=== PATIENT | female | born 1940 | race Caucasian/White ===

== ENCOUNTER 2019-10-21 05:39 | Outpatient (RCR) | payer MEDICARE, MEDICAID, SELFPAY | END 2019-10-29 00:01 | LOC: ONCMED 05:39 | PROVIDERS: Family Provider Family Medicine; Visit Provider Internal Medicine Hematology & Oncology | DX: D50.9 Iron deficiency anemia, unspecified (principal); I48.91 Unspecified atrial fibrillation; K64.8 Other hemorrhoids; K22.2 Esophageal obstruction; K44.9 Diaphragmatic hernia without obstruction or gangrene; Z79.01 Long term (current) use of anticoagulants ==

== ENCOUNTER 2019-12-02 16:38 | Outpatient (CLI) | payer MEDICARE, MEDICAID, SELFPAY ==
--- NOTE | 2019-12-02 16:50 | XR_ITS ---
WS: [id number] ABDOMEN SERIES ACUTE Supine and upright views of the abdomen with AP or PA chest CLINICAL INFORMATION: RUQ PAIN COMPARISON: None. FINDINGS: Heart: Cardiomegaly. AVR. Sternotomy. Aortic calcification. Lungs: Chronic emphysematous changes. No acute pulmonary infiltrates. Bowel gas pattern: Pancolonic fecal retention. Otherwise normal bowel gas pattern. Free air: None. Bones: Thoracolumbar scoliosis. Osteopenia. Cholecystectomy clips. XR/XR acute abdomen series 93904 IMPRESSION: 1. Moderate pancolonic constipation. Otherwise unremarkable bowel gas pattern. 2. Cholecystectomy clips. 3. Cardiomegaly with sternotomy and aVR. Lungs well aerated.
== END 2019-12-02 16:39 | disposition home or self-care (01) ==
LOC: RAD 16:43
PROVIDERS: Family Provider Family Medicine; PCP Family Medicine; Visit Provider Nurse Practitioner Family
DX: R10.11 Right upper quadrant pain (principal); K59.00 Constipation, unspecified; I51.7 Cardiomegaly
CPT/HCPCS: 74022

== ENCOUNTER 2019-12-11 16:42 | Inpatient (IN) | payer MEDICARE, MEDICAID, SELFPAY ==
[2019-12-11] VITALS (29 sets, daily range): BP systolic 116–153; BP diastolic 41–76; PULSE 64–75; RESP 18–38; TEMP 36.7–36.9; O2SAT 81–100; BMI 28.9
--- NOTE | 2019-12-11 17:12 | ED_ITS ---
Entered by Adrianna Chávez, acting as scribe for Cindy Hammond MD Dec 11, 2019 16:42 HPI - General Adult General: Chief complaint: General Medical Stated complaint: difficulty breathing Time Seen by Provider: 12/11/19 17:08 Source: patient Mode of arrival: ambulatory Limitations: no limitations History of Present Illness: HPI narrative: 79 yo Female presents to ED with complaint of fever, abdominal pain, and shortness of breath. Pt states that she has had the abdominal pain for about 2 weeks. Pt states that it has come and gone some but it doesn't go away very often. Pt states that movement makes her abdomen hurt worse. Pt states that she has been constipated and finally got her bowels softened up and now it feels more like diarrhea. Pt's family states that the patient has chronic constipation. Pt states that her fever is new today. Pt states that she has had multiple bowel movements over the past few days but her abdominal pain isn't getting any better. Pt states that she uses oxygen at night. Pt states that she has a stainless steel mechanical heart valve as well. MD complaint: Fever/Abdominal Pain Onset (ago): week(s) Location: abdomen Radiation: non-radiation Severity scale (1-10): 8 Pain Consistency: intermittent Relieving factors: none Exacerbating factors: movement Associated symptoms: Reports cough, dyspnea, fevers/chills and short of breath; Deny chest pain, diaphoresis, headache(s), nausea, rash or vomiting Treatments prior to arrival: none Review of Systems Const: Reports: fever; Denies: chills, change in appetite, night sweats or diaphoresis Eyes: Denies: change in vision ENMT: Denies: throat pain or ear pain Card: Denies: chest pain, swelling of feet/ankles, shortness of breath on exertion or shortness of breath when lying down Resp: Reports: shortness of breath and non-productive cough; Denies: productive cough GI: Reports: abdominal pain; Denies: nausea, vomiting, diarrhea or constipation : Denies: flank pain or difficulty urinating Musc: Denies: back pain Skin/Breast: Denies: rash Neuro: Denies: headache, numbness in extremities or weakness in extremities Psych: Denies: depression Endo: Denies: excessive thirst Jesus Alberto/Lymph: Denies: easy bruising PFSH ED PFSH: Statuses (acute, chronic, etc) shown below reflect problem list status as previously entered and may not be historically accurate Medical History (Updated 12/11/19 @ 21:21 by Karis Madsen MD) Afib COPD (chronic obstructive pulmonary disease) Diastolic CHF HTN (hypertension) Hypothyroidism Iron deficiency anemia Parkinson disease Schatzki's ring Surgical History (Updated 12/11/19 @ 21:21 by Karis Madsen MD) History of bilateral tubal ligation History of cholecystectomy History of total knee arthroplasty Left Mitral valve replaced Mechanical, on coumadin Family History Mother CAD (coronary artery disease) Diabetes Other Hypertension Social History Smoking and tobacco status: former smoker Physical Exam Const: COMMON NORMALS: no apparent distress, oriented x3 and alert GENERAL APPEARANCE: cooperative and well developed; not in distress and not diaphoretic ORIENTATION/CONSCIOUSNESS: Yes awake, Yes oriented to person, Yes oriented to place and Yes oriented to time HENMT: COMMON NORMALS: normocephalic, head/scalp atraumatic, external ears normal, external nose normal and moist oral mucous membranes HEAD & SCALP: normocephalic and atraumatic FACE & SINUS: normal facial exam; no facial tenderness NOSE: external nose normal EXTERNAL EAR: Yes external ears normal MOUTH: oral and palatal mucosa normal, lip normal and tongue normal TEETH & GINGIVA: no abnormal tooth and associated gingiva THROAT: posterior oropharynx normal and uvula midline Eye: COMMON NORMALS: PERRL and EOMs intact bilaterally PUPIL: Yes PERRL Neck/C-Spine: COMMON NORMALS: full ROM, supple and no JVD GENERAL: Yes normal visual inspection and Yes trachea midline CERVICAL SPINE: No cervical spine tenderness Lymph: LYMPHATIC: no lymphadenopathy noted Chest: COMMONS NORMALS: inspection of chest normal Resp: COMMON NORMALS: normal respiratory effort, no use of accessory muscles and clear to auscultation bilaterally EFFORT & INSPECTION: Yes able to speak in complete sentences and Yes symmetric chest movement AUSCULTATION: clear to auscultation bilaterally Cardio: COMMON NORMALS: no JVD, regular rate, regular rhythm, no gallops, no m urmurs and peripheral pulses 2+ throughout RATE: regular rate RHYTHM: regular rhythm PERIPHERAL PULSES: pulses 2+ throughout GI: COMMON NORMALS: normal to inspection, nondistended, normoactive bowel sounds and soft to palpation; negative for non-tender PALPATION: Yes soft and Yes tender (diffuse tenderness, worse in the right upper quadrant-hx of cholecystectomy) Details: RUQ Back/Pelvis: COMMON NORMALS: thoracic and lumbar spine normal to inspection and thoraco-lumbar ROM normal Extremity: COMMON NORMALS: normal to inspection, full ROM and normal capillary refill Neuro: COMMON NORMALS: oriented x3, CN's II-XII intact bilaterally, moves all extremities, no focal motor deficits and no sensory deficits noted SENSORIUM/ORIENTATION: Yes alert, Yes oriented to person, Yes oriented to place and Yes oriented to time Psych: COMMON NORMALS: mental status grossly normal, thought process normal, cooperative, affect normal, speech normal and activity/motor behavior normal SPEECH: Yes normal speech THOUGHT PROCESS: normal thought process Skin: COMMON NORMALS: no rashes or lesions noted and skin turgor normal GENERAL SKIN EXAM: no rashes or lesions noted and turgor normal Course ED course: Patient with abdominal pain for 2 weeks - not relieved by treatment for constipation. She had some episodes of hypoxia in the ED and required increasing oxygen supplementation. CT abd neg, UA neg. Unclear cause of her abdominal pain - or her hypoxia. Admit to the hospitalist for further evaluation. Vital Signs: Vital signs: Vital Signs Temperature 98.4 F 12/11/19 16:54 Pulse Rate 66 12/11/19 21:21 Respiratory Rate 26 H 12/11/19 21:21 Blood Pressure 129/64 12/11/19 21:21 Pulse Oximetry 96 12/11/19 21:21 [facility] - General Adult Lab Data: Labs: Lab Results 12/11/19 12/11/19 12/11/19 Range/Units 17:20 17:20 17:20 WBC 5.4 (4.0-10.0) 10^3/ uL RBC 4.26 (4.1-5.3) 10^6/u L Hgb 12.4 (11.5-15.3) g/dL Hct 40.4 (37.0-47.0) % MCV 94.8 (81-99) fL MCH 29.1 (28.0-34.0) pg MCHC 30.7 (30.0-36.0) g/dL RDW 14.6 (12.1-15.1) % Plt Count 155 (130-400) 10^3/c mm MPV 10.1 (7.4-10.4) fL Neut % (Auto) 70.8 % Lymph % (Auto) 18.6 % Licking % (Auto) 8.5 % Eos % (Auto) 1.3 % Baso % (Auto) 0.6 % Neut # (Auto) 3.8 (1.8-7.7) 10^3/u L Lymph # (Auto) 1.0 (0.8-4.8) 10^3/u L Licking # (Auto) 0.5 (0.2-0.9) 10^3/u L Eos # (Auto) 0.1 (0.0-0.8) 10^3/u L Baso # (Auto) 0.0 (0.0-0.1) 10^3/u L Nucleated RBC % (a uto) 0 % Nucleated RBCs # 0.0 /100WBC PT 16.90 H (10.5-13.3) SECO NDS INR 1.33 H (0.8-1.2) Specimen Type Sample Site ABG pH (7.35-7.45) ABG pCO2 (35-45) mmHg ABG pO2 (80.0-100.0) mmH g ABG HCO3 (22-26) mmol/L ABG O2 Saturation ABG Base Excess (-2.0-2.0) mmol/ L César Test A-a O2 Gradient (5-10) mmHg Hematocrit (37-47) % Hgb O2 Saturation (95-100) % Carboxyhemoglobin (0.4-20.1) %THgb Methemoglobin (0.4-1.5) % Total Hemoglobin (12-16) g/dL Ionized Calcium (1.1-1.4) mmol/L O2 Delivery Device Chief Yeoman ID Sodium 145 (136-145) mmol/L Potassium 3.4 L (3.5-5.1) mmol/L Chloride 102 (98-107) mmol/L Carbon Dioxide 34 H (22-29) mmol/L Anion Gap 12.4 (5-19) BUN 12 (8-23) mg/dL Creatinine 0.8 (0.5-0.9) mg/dL Glucose 107 (65-115) mg/dL Lactate (0.5-2.2) mmol/L Calcium 9.2 (8.5-10.5) mg/dL Total Bilirubin 0.9 (0.15-1.2) mg/dL AST 16 (0-32) U/L ALT 9 (0-33) U/L Alkaline Phosphata se 207 H (35-105) IU/L NT-Pro-B Natriuret Pep 945 H (0-450) pg/mL Total Protein 7.5 (6.6-8.7) g/dL Albumin 4.2 (3.5-5.2) g/dL Globulin 3.3 (1.3-4.6) g/dL Lipase 25 (13-60) U/L Urine Color (Yellow) Urine Appearance (CLEAR) Urine pH (5-7) Ur Specific Gravit y (1.005-1.030) Urine Protein (Negative) Urine Glucose (UA) (Normal) Urine Ketones (Negative) Urine Occult Blood (Negative) Urine Nitrate (Negative) Urine Bilirubin (NEGATIVE) Urine Urobilinogen (Negative) mg/dL Ur Leukocyte Carlyn ase (Negative) Urine RBC (0-2) /hpf Urine WBC (0-5) /hpf Ur Squamous Epith Cells (0-5) Amorphous Sediment Urine Bacteria (NONE) Urine Mucus 12/11/19 12/11/19 12/11/19 Range/Units 17:45 17:54 20:33 WBC (4.0-10.0) 10^3/ uL RBC (4.1-5.3) 10^6/u L Hgb (11.5-15.3) g/dL Hct (37.0-47.0) % MCV (81-99) fL MCH (28.0-34.0) pg MCHC (30.0-36.0) g/dL RDW (12.1-15.1) % Plt Count (130-400) 10^3/c mm MPV (7.4-10.4) fL Neut % (Auto) % Lymph % (Auto) % Licking % (Auto) % Eos % (Auto) % Baso % (Auto) % Neut # (Auto) (1.8-7.7) 10^3/u L Lymph # (Auto) (0.8-4.8) 10^3/u L Licking # (Auto) (0.2-0.9) 10^3/u L Eos # (Auto) (0.0-0.8) 10^3/u L Baso # (Auto) (0.0-0.1) 10^3/u L Nucleated RBC % (a uto) % Nucleated RBCs # /100WBC PT (10.5-13.3) SECO NDS INR (0.8-1.2) Specimen Type Arterial Sample Site Radial, right ABG pH 7.34 L (7.35-7.45) ABG pCO2 65.2 H* (35-45) mmHg ABG pO2 42.4 L (80.0-100.0) mmH g ABG HCO3 35.1 H (22-26) mmol/L ABG O2 Saturation 73.9 ABG Base Excess 6.8 H (-2.0-2.0) mmol/ L César Test Pos A-a O2 Gradient 27.3 H (5-10) mmHg Hematocrit 44.5 (37-47) % Hgb O2 Saturation 72.1 L (95-100) % Carboxyhemoglobin 1.7 (0.4-20.1) %THgb Methemoglobin 0.7 (0.4-1.5) % Total Hemoglobin 14.5 (12-16) g/dL Ionized Calcium 1.2 (1.1-1.4) mmol/L O2 Delivery Device Room air Chief Yeoman ID vossa Sodium 146.0 H (136-145) mmol/L Potassium 3.4 L (3.5-5.1) mmol/L Chloride (98-107) mmol/L Carbon Dioxide (22-29) mmol/L Anion Gap (5-19) BUN (8-23) mg/dL Creatinine (0.5-0.9) mg/dL Glucose 101.0 (65-115) mg/dL Lactate 0.7 (0.5-2.2) mmol/L Calcium (8.5-10.5) mg/dL Total Bilirubin (0.15-1.2) mg/dL AST (0-32) U/L ALT (0-33) U/L Alkaline Phosphata se (35-105) IU/L NT-Pro-B Natriuret Pep (0-450) pg/mL Total Protein (6.6-8.7) g/dL Albumin (3.5-5.2) g/dL Globulin (1.3-4.6) g/dL Lipase (13-60) U/L Urine Color Straw (Yellow) Urine Appearance Clear (CLEAR) Urine pH 7 (5-7) Ur Specific Gravit y 1.010 (1.005-1.030) Urine Protein Neg (Negative) Urine Glucose (UA) Norm (Normal) Urine Ketones Negative (Negative) Urine Occult Blood 2+ H (Negative) Urine Nitrate Negative (Negative) Urine Bilirubin Neg (NEGATIVE) Urine Urobilinogen Norm (Negative) mg/dL Ur Leukocyte Carlyn ase Negative (Negative) Urine RBC Rare (0-2) /hpf Urine WBC None (0-5) /hpf Ur Squamous Epith Cells None (0-5) Amorphous Sediment Trace Urine Bacteria Trace (NONE) Urine Mucus Trace Imaging Data^: CT Abd/Pel: Radiologist's impression: [place] [address] CT Scan Report Signed Patient: Iris Garcia #: [id number] : 1940Acct#:[id number] Age/Sex: 79 / FADM Date: 12/11/19 Loc: ERRoom/Bed: Attending Dr: Ordering Provider/Ordering MD: Cindy Hammond MD Date of Service: 12/11/19 Procedure(s): CT abdomen pelvis w con* [id number] Accession Number(s): [id number] Report Number: [id number] PROCEDURE INFORMATION: Exam: CT Abdomen And Pelvis With Contrast Exam date and time: 12/11/2019 6:01 PM Age: 79 years old Clinical indication: Abdominal pain; Generalized; Prior surgery; Surgery date: 6+ months; Surgery type: Tubal; Additional info: Abdominal pain, fever TECHNIQUE: Imaging protocol: Computed tomography of the abdomen and pelvis with intravenous contrast. Total DLP: 617.29 mGy-cm Radiation optimization: All CT scans at this facility use at least one of these dose optimization techniques: automated exposure control; mA and/or kV adjustment per patient size (includes targeted exams where dose is matched to clinical indication); or iterative reconstruction. Contrast material: OMNI; Contrast volume: 95 ml; Contrast route: IV; COMPARISON: CT Abdomen/Pelvis Renal [id number] 04/08/2019 1:22 PM FINDINGS: Heart: Partially imaged prosthetic mitral valve. Mild bibasilar atelectasis/scarring with no focal consolidation. Liver: Normal. No mass. Gallbladder and bile ducts: Extrahepatic duct mildly dilated similar to prior, likely due to reservoir effect in the setting of cholecystectomy. Pancreas: Normal. No ductal dilation. Spleen: Normal. No splenomegaly. Adrenals: Normal. No mass. Kidneys and ureters: Lobular right renal contour with scarring and a few subcentimeter hypodensities which are too small to characterize. No hydronephrosis or visualized stones. No enhancing renal masses. Stomach and bowel: Right inguinal hernia containing a loop of small bowel without evidence of obstruction or incarceration. This was also present previously. Extensive sigmoid diverticulosis without evidence for active diverticulitis. Appendix: No evidence of appendicitis. Intraperitoneal space: No free air. No significant fluid collection. Vasculature: Scattered atherosclerotic calcification. No aortic aneurysm. Lymph nodes: Unremarkable. No enlarged lymph nodes. Bladder: Unremarkable as visualized. Reproductive: Unremarkable as visualized. Bones/joints: Generalized osteopenia. Lumbar degenerative changes. No acute or aggressive osseous lesions. Soft tissues: Unremarkable. CT/CT abdomen pelvis w con* [id number] IMPRESSION: 1. No acute findings. 2. Right inguinal hernia again containing a loop of small bowel without evidence of obstruction or incarceration. 3. Sigmoid diverticulosis without active diverticulitis. 4. Other chronic and incidental findings as described. COMMENT: Consistent with the [employer]'s Incidental Findings Committee white paper (J Am Malinda Radiol 2018): Any incidental cystic renal lesion classified in this report as too small to characterize or simple appearing is likely a benign cyst. No follow-up imaging is recommended for these lesions per consensus recommendations based on imaging criteria. Radiation Dose CTDIVOL = (mGy): DLP = 617.29 (mGy-cm) Dictated By:Cristiano Hawkins MD Signed By:Cristiano Hawkins MDSigned Date/Time:12/11/191909 DD/ 09 Discharge Plan Discharge Patient Disposition: Admitted As Inpatient Admit Provider: Karis Madsen Discharge Date/Time: 12/11/19 21:35 Coding Level of Care Code ED Lease Administrator for Chg Fwd Exam Problem Focused The documentation recorded by the Kyler warner Carmen, accurately reflects the service I personally performed and the decisions made by me, Cindy Hammond MD Dec 11, 2019 16:42
--- NOTE | 2019-12-11 17:22 | CTR_ITS ---
PROCEDURE INFORMATION: Exam: CT Abdomen And Pelvis With Contrast Exam date and time: 12/11/2019 6:01 PM Age: 79 years old Clinical indication: Abdominal pain; Generalized; Prior surgery; Surgery date: 6+ months; Surgery type: Tubal; Additional info: Abdominal pain, fever TECHNIQUE: Imaging protocol: Computed tomography of the abdomen and pelvis with intravenous contrast. Total DLP: 617.29 mGy-cm Radiation optimization: All CT scans at this facility use at least one of these dose optimization techniques: automated exposure control; mA and/or kV adjustment per patient size (includes targeted exams where dose is matched to clinical indication); or iterative reconstruction. Contrast material: OMNI; Contrast volume: 95 ml; Contrast route: IV; COMPARISON: CT Abdomen/Pelvis Renal [id number] 04/08/2019 1:22 PM FINDINGS: Heart: Partially imaged prosthetic mitral valve. Mild bibasilar atelectasis/scarring with no focal consolidation. Liver: Normal. No mass. Gallbladder and bile ducts: Extrahepatic duct mildly dilated similar to prior, likely due to reservoir effect in the setting of cholecystectomy. Pancreas: Normal. No ductal dilation. Spleen: Normal. No splenomegaly. Adrenals: Normal. No mass. Kidneys and ureters: Lobular right renal contour with scarring and a few subcentimeter hypodensities which are too small to characterize. No hydronephrosis or visualized stones. No enhancing renal masses. Stomach and bowel: Right inguinal hernia containing a loop of small bowel without evidence of obstruction or incarceration. This was also present previously. Extensive sigmoid diverticulosis without evidence for active diverticulitis. Appendix: No evidence of appendicitis. Intraperitoneal space: No free air. No significant fluid collection. Vasculature: Scattered atherosclerotic calcification. No aortic aneurysm. Lymph nodes: Unremarkable. No enlarged lymph nodes. Bladder: Unremarkable as visualized. Reproductive: Unremarkable as visualized. Bones/joints: Generalized osteopenia. Lumbar degenerative changes. No acute or aggressive osseous lesions. Soft tissues: Unremarkable. CT/CT abdomen pelvis w con* [id number] IMPRESSION: 1. No acute findings. 2. Right inguinal hernia again containing a loop of small bowel without evidence of obstruction or incarceration. 3. Sigmoid diverticulosis without active diverticulitis. 4. Other chronic and incidental findings as described. COMMENT: Consistent with the [employer]'s Incidental Findings Committee white paper (J Am Malinda Radiol 2018): Any incidental cystic renal lesion classified in this report as too small to characterize or simple appearing is likely a benign cyst. No follow-up imaging is recommended for these lesions per consensus recommendations based on imaging criteria. Radiation Dose CTDIVOL = (mGy): DLP = 617.29 (mGy-cm)
[2019-12-11 18:04] LABS: Basophils % 0.6 %; Eosinophils # 0.1 10^3/uL (0.0-0.8); Eosinophils % 1.3 %; Hematocrit 40.4 % (37.0-47.0); Hemoglobin 12.4 g/dL (11.5-15.3); Lymphocytes % 18.6 %; Mean Corpuscular HGB Conc 30.7 g/dL (30.0-36.0); Mean Corpuscular Hemoglobin 29.1 pg (28.0-34.0); Mean Corpuscular Volume 94.8 fL (81-99); Mean Platelet Volume 10.1 fL (7.4-10.4); Monocytes # 0.5 10^3/uL (0.2-0.9); Monocytes % 8.5 %; Neutrophils # 3.8 10^3/uL (1.8-7.7); Neutrophils % 70.8 %; Nucleated Red Blood Cells % 0 %; Platelet Count 155 10^3/cmm (130-400); Red Blood Count 4.26 10^6/uL (4.1-5.3); Red Cell Distribution Width 14.6 % (12.1-15.1); White Blood Count 5.4 10^3/uL (4.0-10.0)
[2019-12-11 18:08] LABS: INR 1.33 (0.8-1.2)
[2019-12-11 18:16] LABS: Lactate (Lactic Acid level) 0.7 mmol/L (0.5-2.2)
[2019-12-11 18:23] LABS: Alanine Aminotransferase 9 U/L (0-33); Albumin Level 4.2 g/dL (3.5-5.2); Alkaline Phosphatase 207 IU/L (35-105); Anion Gap 12.4 (5-19); Aspartate Amino Transferase 16 U/L (0-32); Blood Urea Nitrogen 12 mg/dL (8-23); Calcium 9.2 mg/dL (8.5-10.5); Carbon Dioxide 34 mmol/L (22-29); Chloride 102 mmol/L (98-107); Globulin 3.3 g/dL (1.3-4.6); Glucose 107 mg/dL (65-115); Lipase 25 U/L (13-60); NT Pro B Type Natriuretic Pept 945 pg/mL (0-450); Potassium 3.4 mmol/L (3.5-5.1); Sodium 145 mmol/L (136-145); Total Bilirubin 0.9 mg/dL (0.15-1.2); Total Protein 7.5 g/dL (6.6-8.7)
[2019-12-11 18:31] LABS: Add Urine Microscopic? YES; Bilirubin Urine Neg (NEGATIVE); Blood Urine 2+ (Negative); Glucose Urine UA Norm (Normal); Ketones Urine Negative (Negative); Leukocyte Esterase Urine Negative (Negative); Nitrate Urine Negative (Negative); Protein Urine Neg (Negative); Urine Appearance Clear (CLEAR); Urine Color Straw (Yellow); Urobilinogen Urine Norm (Negative); pH Urine 7 (5-7)
[2019-12-11 18:32] LABS: Add Urine Culture? No; Amorphous Sediment Urine TRACE; Bacteria Urine TRACE; Mucus Urine TRACE; RBC Urine RARE /hpf (0-2)
[2019-12-11] MEDS: iohexol 300 mg/mL 100 mL Btl 95 ML IV (18:43)
--- NOTE | 2019-12-11 19:29 | XRR_ITS ---
PROCEDURE INFORMATION: Exam: XR Chest, 1 View Exam date and time: 12/11/2019 7:46 PM Age: 79 years old Clinical indication: Shortness of breath; Prior surgery; Surgery type: Heart valve; Additional info: Short of breath x 10 days TECHNIQUE: Imaging protocol: XR of the chest Views: 1 view. COMPARISON: [place] Chest 1 [place] [id number] 04/08/2019 12:33 PM FINDINGS: Lungs: No pneumonia, pulmonary vascular congestion, or pulmonary edema. Calcified granuloma in the right upper lobe. Pleural space: No pleural effusion. No pneumothorax. Heart/Mediastinum: The heart is probably not enlarged when allowing for the portable nature of the exam in the presence of epicardial fat pads. Prior mitral valve replacement. The mediastinal contours are normal. Bones/joints: Prior median sternotomy. XR/XR chest 1V portable [id number] IMPRESSION: No acute abnormality.
--- NOTE | 2019-12-11 19:46 | PC.NURSE ---
no pt needs at this time.
[2019-12-11] MEDS: morphine 4 mg/mL SDV 1 mL 2 MG IVP (20:05)
[2019-12-11] MEDS: ondansetron 2 mg/ML SDV 2 mL 4 MG IVP (20:05)
[2019-12-11 20:47] LABS: ABG PH Result 7.34 (7.35-7.45); Alveolar-Arterial Oxygen Gradi 27.3 mmHg (5-10); Arterial Blood Gas Hematocrit 44.5 % (37-47); Base Excess ABG 6.8 mmol/L (-2.0-2.0); Blood Gas Allen Test Pos; Blood Gas Sample Site Radial, right; Blood Gas Sample Type Arterial; Carboxyhemoglobin 1.7 %THgb (0.4-20.1); HCO3 ABG 35.1 mmol/L (22-26); HGB O2 Sat 72.1 % (95-100); Ionized Calcium Level - ABG 1.2 mmol/L (1.1-1.4); Methemoglobin 0.7 % (0.4-1.5); Oxygen Device ROOM AIR; Oxygen Saturation ABG 73.9; PO2 ABG 42.4 mmHg (80.0-100.0); Potassium Level - ABG 3.4 mmol/L (3.5-5.0); Total Hemoglobin 14.5 g/dL (12-16)
[2019-12-11 20:49] LABS: ABG PCO2 65.2 mmHg (35-45)
--- NOTE | 2019-12-11 20:57 | PM.HP ---
Providers/Chief Complaint Admitting Physician: Karis Madsen Primary Care Provider: Michael Hampton DO Chief Complaint: abdominal pain and difficulty breathing History of Present Illness Iris Garcia is a 79 year old female who presented to the emergency room with chief complaint of abdominal pain as well as some difficulty breathing. About 2 weeks ago she started having pain in her right upper quadrant area. She described it as just the pain that was occasionally crampy in nature. She rated it at an 8-9 out of 10 at its worst. She took some Tylenol without any improvement. She saw her primary care provider last week. She has had similar presentations in the past and was found to have constipation as a probable cause. She was started on MiraLAX. She had been constipated for about 3 weeks prior to the onset of her symptoms. Stools are now soft and she reports having 1 daily. The pain however has persisted. It was so bad today that her family had difficulty getting her to the emergency room via private vehicle. In addition to the pain she has started having some shortness of breath. Not much of a cough but when she does it is productive of some yellowish type sputum. She had a low-grade fever today around 100 degrees when home health checked her and it was recommended that she come to the emergency room for further evaluation due to the combination of persistent pain in the temperature. No nausea or vomiting. No reports of chest pain. She has been using her oxygen a little bit more lately because she has been short of breath. She does not really get around very much. She reports pain in her ankles and her feet with efforts at ambulation as well as shortness of breath. She is not entirely sure which is worse, the pain or the trouble breathing. In the emergency room oxygen saturations were as low as the low 80s on room air. She had a CT of her abdomen and pelvis that was really unrevealing. Laboratory studies were also somewhat revealing. She is on chronic anticoagulation because of a mechanical mitral valve and was noted to have a low INR. She had been called by the cardiology clinic this afternoon with the intention of her Coumadin dosing being changed but because she was here her family did not get the specific instructions yet. She is being admitted for further evaluation and treatment. Review of Systems Const: Reports: fever; Denies: chills or change in weight ENMT: Reports: nasal discharge; Denies: throat pain or nasal congestion Card: Reports: edema; Denies: chest pain or palpitations Resp: Reports: shortness of breath and productive cough (Yellow sputum) GI: Reports: abdominal pain and constipation (but improving ); Denies: nausea, vomiting, difficulty swallowing, diarrhea or blood in stool : Denies: difficulty urinating Musc: Reports: joint pain (Ankles and feet ) and other (Difficulty walking due pain); Denies: joint swelling, redness or joint warmth Skin/Breast: Denies: itching or sores Neuro: Reports: weakness in extremities (General); Denies: numbness in extremities Psych: Denies: anxiety or depression Jesus Alberto/Lymph: Denies: easy bruising or easy bleeding Medications/Allergies Home Medications Medication Instructions Recorded Confirmed Last Taken Type isosorbide mononitrate 60 mg PO DAILY 12/12/19 12/12/19 12/11/19 History potassium chloride [Klor-Con 10] 20 meq PO BID 12/12/19 12/12/19 12/11/19 History Allergies Allergy/AdvReac Type Severity Reaction Status Date / Time penicillin G Allergy UNK Verified 12/11/19 17:02 Additional Medication Information Additional Medication Information: Home medications include aspirin, Sinemet, fluoxetine, Lasix, levothyroxine, metoprolol, omeprazole, Crestor, Detrol, verapamil and Coumadin. Currently patient is on 3 mg of Coumadin a day but was called by the cardiology clinic earlier today because she needed to increase her Coumadin dosing. Adjustments have not been made yet. Been on current dose of Coumadin for at least a week. PFSH Acute PFSH: Statuses (acute, chronic, etc) shown below reflect problem list status as previously entered and may not be historically accurate Medical History Afib COPD (chronic obstructive pulmonary disease) Former smoker, occasional use of breathing treatments Depression On fluoxetine with good control Diastolic CHF GERD (gastroesophageal reflux disease) PPI HTN (hypertension) Hypothyroidism Iron deficiency anemia Has required transfusion in past, last egd and colonoscopy ~2017 with diverticulosis and internal hemorrhoids, no clear source of bleeding Parkinson disease Sinimet Schatzki's ring Surgical History History of bilateral tubal ligation History of cholecystectomy History of total knee arthroplasty Left Mitral valve replaced Mechanical, on coumadin Family History Mother CAD (coronary artery disease) Diabetes Other Hypertension Social History Smoking and tobacco status: former smoker Vitals/I&O/Wt Last Vital Signs Temp 98.4 F 12/11/19 16:54 Pulse 65 12/11/19 20:50 Resp 26 H 12/11/19 20:50 BP 116/41 12/11/19 20:50 Pulse Ox 97 12/11/19 20:50 Weight last 48 hrs Weight 67.132 kg Physical Exam Const: COMMON NORMALS: oriented x3 and alert HENMT: COMMON NORMALS: normocephalic and head/scalp atraumatic Eye: COMMON NORMALS: PERRL and EOMs intact bilaterally Neck/C-Spine: COMMON NORMALS: supple Resp: COMMON NORMALS: no retractions and no use of accessory muscles EFFORT & INSPECTION: Yes able to speak in complete sentences AUSCULTATION: wheezes (Scattered) and diminished lung sounds bilateral in the lower lung mckeon Cardio: COMMON NORMALS: no gallops, no murmurs and no rub JUGULAR VENOUS DISTENTION: JVD positive to the level of the angle of the jaw RHYTHM: abnormal rhythm irregularly irregular GI: COMMON NORMALS: soft to palpation and no masses INSPECTION: Yes abdominal distension (mild) PALPATION: Yes tender Details: RUQ, No guarding and No rebound tenderness present : COMMON NORMALS: Yes no CVA tenderness Extremity: COMMON NORMALS: normal capillary refill, no joint enlargement, no clubbing, cyanosis or edema and no calf tenderness Neuro: COMMON NORMALS: moves all extremities and no sensory deficits noted Psych: COMMON NORMALS: thought process normal and cooperative Skin: COMMON NORMALS: no rashes or lesions noted and no mottling Data : 12/12/19 04:18 12/12/19 04:18 Other Labs: Short CBC 12/11/19 Range/Units 17:20 WBC 5.4 (4.0-10.0) 10^3/uL Hgb 12.4 (11.5-15.3) g/dL Hct 40.4 (37.0-47.0) % Plt Count 155 (130-400) 10^3/cmm BMP 12/11/19 17:20 Sodium 145 Potassium 3.4 L Chloride 102 Carbon Dioxide 34 H BUN 12 Creatinine 0.8 Glucose 107 Calcium 9.2 Liver Function 12/11/19 Range/Units 17:20 Total Bilirubin 0.9 (0.15-1.2) mg/dL AST 16 (0-32) U/L ALT 9 (0-33) U/L Alkaline Phosphatase 207 H (35-105) IU/L Albumin 4.2 (3.5-5.2) g/dL Urine 12/11/19 Range/Units 17:45 Urine Color Straw (Yellow) Urine Appearance Clear (CLEAR) Urine pH 7 (5-7) Ur Specific [place] 1.010 (1.005-1.030) Urine Protein Neg (Negative) Urine Glucose (UA) Norm (Normal) Laboratory Tests 12/11/19 12/11/19 17:20 17:54 Lactate 0.7 NT-Pro-B Natriuret Pep [address] Abd/Pel: Radiologist's impression: IMPRESSION: 1. No acute findings. 2. Right inguinal hernia again containing a loop of small bowel without evidence of obstruction or incarceration. 3. Sigmoid diverticulosis without active diverticulitis. 4. Other chronic and incidental findings as described. A&P Assessment and plan (1) RUQ abdominal pain: Exact etiology is unclear right now. It may be related to recent significant bout of constipation though she has started having bowel movements daily and the pain has not improved any. She has had previous cholecystectomy. Lactic acid was normal. No recent falls or other maneuvers that might account for musculoskeletal etiology though it is certainly within the differential. CT of the abdomen with contrast was not revealing except for chronic abnormalities including right inguinal hernia that is unchanged from previous and some cyst in the right kidney also unchanged from previous. She is chronically anticoagulated but with current INR due have to keep in mind the possibility of a vascular process but it seems less likely at the moment. Pain from another source is also something to keep in mind. Status: Acute Code(s): R10.11 - Right upper quadrant pain (2) Hypoxemia: Clinically looks to be a bit volume overloaded. Most likely this is multifactorial in nature however with former history of smoking and probably some degree of COPD, obstructive sleep apnea that is being treated with oxygen at night as well as some atelectasis which I think is stemming from the degree of abdominal pain. Atelectasis might of also accounted for the low-grade fever that she presented with. PE is also within the differential, especially with the lower INR, but again she has been anticoagulated chronically. Status: Acute Code(s): R09.02 - Hypoxemia (3) Diastolic CHF: Acute on chronic Status: Acute Qualifiers: Heart failure chronicity: acute on chronic Qualified Code(s): I50.33 - Acute on chronic diastolic (congestive) heart failure Code(s): I50.30 - Unspecified diastolic (congestive) heart failure (4) COPD (chronic obstructive pulmonary disease): May be an acute component contributing but seems more fluid related presently Status: Acute Qualifiers: COPD type: unspecified COPD Qualified Code(s): J44.9 - Chronic obstructive pulmonary disease, unspecified Code(s): J44.9 - Chronic obstructive pulmonary disease, unspecified (5) Afib: Chronic rate controlled Status: Acute Qualifiers: Atrial fibrillation type: longstanding persistent Qualified Code(s): I48.11 - Longstanding persistent atrial fibrillation Code(s): I48.91 - Unspecified atrial fibrillation (6) Chronic anticoagulation: On Coumadin due to history of mechanical mitral valve with currently subtherapeutic INR. Has regular INRs checked and follows with cardiology clinic Status: Acute Code(s): Z79.01 - halfway (current) use of anticoagulants (7) Parkinson disease: Chronically on Sinemet Status: Acute Code(s): G20 - Parkinson's disease Additional A&P Information Other diagnoses: Gastroesophageal reflux disease Obstructive sleep apnea only on oxygen at night currently though does have a CPAP machine at home. She has an ill fitting mask. Hypothyroidism on levothyroxine replacement History of anemia requiring transfusion but currently stable H&H Plan: Inpatient admission IV diuresis x1 or 2 doses Monitor respiratory status for worsening Consider low-dose steroids if no improvement Add laxatives to stool softeners Monitor abdominal pain for worsening We will add some subcutaneous heparin until INR increases Increase Coumadin dosing to 4 mg daily Daily INR for now Continue home medications of aspirin, Sinemet, fluoxetine, isosorbide, levothyroxine, metoprolol, PPI, MiraLAX, potassium, Crestor, Detrol and verapamil We will add some low-dose tramadol for pain. Discussed wanting to avoid narcotics as it could make constipation and potentially abdominal pain worse. Supportive care otherwise Plans were discussed with patient as well as several family members in the room including 2 daughters and her . All were given an opportunity to ask questions. They are understandably concerned about the persistent pain without a specific etiology. I reviewed the findings from the CAT scan as well as laboratory studies. Also reviewed similar presentation in the past notated in the record. Reassured them that we would continue to monitor for signs suggesting other possibilities. Currently anticipate discharge home with family. She already has home health and I anticipate it will continue. May want to look into adding some physical occupational therapy or both to help with mobility. That may help her pain as well. Full code Attestations Medical Necessity Statement*: Anticipated length of stay is greater than 2 midnights in this patient presenting with moderately persistent abdominal pain of unclear etiology but also significant hypoxemia when not wearing oxygen. She does not wear oxygen [id number] at home though is not not at night. Plans are as noted above. 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
[2019-12-12] VITALS: BP 121/64; PULSE 59; RESP 22; TEMP 36.6; O2SAT 92
[2019-12-12] MEDS: heparin 5,000 unit/mL INJ 1 mL 5000 UNIT SUBCUT ×3 (01:22→22:36)
[2019-12-12] MEDS: pantoprazole DR 40 mg Tablet PO ×2 (01:22→22:36)
[2019-12-12] MEDS: metoprolol tartrate 25 mg Tablet 12.5 MG PO ×3 (01:22→22:35)
[2019-12-12] MEDS: sennosides 8.6 mg Tablet 17.2 MG PO (01:22)
[2019-12-12 04:00] VITALS: BP 92/52; PULSE 56; RESP 18; TEMP 36.8; O2SAT 94
[2019-12-12 04:45] LABS: Basophils % 0.4 %; Eosinophils # 0.1 10^3/uL (0.0-0.8); Eosinophils % 1.1 %; Hematocrit 36.7 % (37.0-47.0); Hemoglobin 11.3 g/dL (11.5-15.3); Lymphocytes # 0.9 10^3/uL (0.8-4.8); Lymphocytes % 18.7 %; Mean Corpuscular HGB Conc 30.8 g/dL (30.0-36.0); Mean Corpuscular Hemoglobin 29.5 pg (28.0-34.0); Mean Corpuscular Volume 95.8 fL (81-99); Monocytes # 0.5 10^3/uL (0.2-0.9); Monocytes % 10.8 %; Neutrophils # 3.1 10^3/uL (1.8-7.7); Neutrophils % 68.8 %; Nucleated Red Blood Cells % 0 %; Platelet Count 135 10^3/cmm (130-400); Red Blood Count 3.83 10^6/uL (4.1-5.3); Red Cell Distribution Width 14.5 % (12.1-15.1); White Blood Count 4.6 10^3/uL (4.0-10.0)
[2019-12-12 04:51] LABS: INR 1.33 (0.8-1.2)
[2019-12-12 05:11] LABS: Anion Gap 9.4 (5-19); Blood Urea Nitrogen 8 mg/dL (8-23); Calcium 8.8 mg/dL (8.5-10.5); Carbon Dioxide 35 mmol/L (22-29); Chloride 103 mmol/L (98-107); Glucose 107 mg/dL (65-115); Magnesium 2.4 mg/dL (1.7-2.3); Osmolality Calculated 294 mOsm/kg (285-295); Potassium 3.4 mmol/L (3.5-5.1); Sodium 144 mmol/L (136-145); Thyroid Stimulating Hormone 1.13 uIU/mL (0.27-4.20)
[2019-12-12] MEDS: FUROsemide 40 mg Tablet 80 MG PO ×2 (05:56→16:34)
[2019-12-12] MEDS: aspirin 81 mg Chew Tablet PO (10:04)
[2019-12-12] MEDS: tolterodine 2 mg Tablet PO ×2 (10:05→18:00)
[2019-12-12] MEDS: levothyroxine 50 mcg Tablet PO (10:05)
[2019-12-12] MEDS: verapamil ER 180 mg Tablet PO (10:06)
[2019-12-12] MEDS: fluoxetine 10 mg Capsule PO (10:06)
[2019-12-12] MEDS: TRAMadol 50 mg Tablet PO (10:14)
[2019-12-12 11:24] VITALS: BP 102/44; PULSE 61; RESP 16; TEMP 37.2; O2SAT 95
--- NOTE | 2019-12-12 12:49 | PM.PN ---
Subjective Subjective: Interval history: History and physical reviewed in detail. I discussed with the patient her pain and it is still in the right upper quadrant. She reports this makes her feel not very hungry, slightly nauseous. Medications: Reviewed: Yes Vitals/I&O/Wt Last Vital Signs Temp 98.9 F 12/12/19 11:24 Pulse 61 12/12/19 11:24 Resp 16 12/12/19 11:24 BP 102/44 12/12/19 11:24 Pulse Ox 95 12/12/19 11:24 12/11/19 12/12/19 12/12/19 22:59 06:59 14:59 Intake Total 240 / 240 Output Total 200 / 200 400 / 400 Balance -200 / -200 -160 / -160 Weight last 48 hrs Weight 67.358 kg Weight 67.132 kg Physical Exam Narrative: EXAM NARRATIVE: General exam is no apparent distress Cardiovascular regular rate and rhythm, heart sounds distant Lungs clear Pain to palpation right mid quadrant. Positive bowel sounds Extremities no cyanosis clubbing or edema Data : 12/12/19 04:18 12/12/19 04:18 A&P Assessment and plan (1) RUQ abdominal pain: This appears to be secondary to constipation. Will alleviate this, to see if pain improves. She has had a prior cholecystectomy. Doubt this is from her right inguinal hernia. No evidence of obstruction from this. Senna S twice daily, 2 tablets Continue MiraLAX Dulcolax suppository Status: Acute Code(s): R10.11 - Right upper quadrant pain (2) Hypoxemia: Continue Lasix. May be secondary to fluid overload, or possibly be chronic with decreased ability to take deep breaths secondary to constipation. Status: Acute Code(s): R09.02 - Hypoxemia (3) Diastolic CHF: Acute on chronic. Continue oral Lasix Status: Acute Qualifiers: Heart failure chronicity: acute on chronic Qualified Code(s): I50.33 - Acute on chronic diastolic (congestive) heart failure Code(s): I50.30 - Unspecified diastolic (congestive) heart failure (4) COPD (chronic obstructive pulmonary disease): DuoNeb as needed. No evidence of acute exacerbation Status: Acute Qualifiers: COPD type: unspecified COPD Qualified Code(s): J44.9 - Chronic obstructive pulmonary disease, unspecified Code(s): J44.9 - Chronic obstructive pulmonary disease, unspecified (5) Afib: Chronic rate controlled Status: Acute Qualifiers: Atrial fibrillation type: longstanding persistent Qualified Code(s): I48.11 - Longstanding persistent atrial fibrillation Code(s): I48.91 - Unspecified atrial fibrillation (6) Chronic anticoagulation: Continue Coumadin secondary to mechanical valve. INR daily. Continue heparin as she is not therapeutic Status: Acute Code(s): Z79.01 - remote computer terminal operator (current) use of anticoagulants (7) Parkinson disease: Chronically on Sinemet Status: Acute Code(s): G20 - Parkinson's disease Additional A&P Information GERD Obstructive sleep apnea History of anemia Hypothyroidism Home health on discharge Full code Attestations Medical Necessity Statement*: Needs continued hospital stay for further treatment for severe obstipation and pain not allowing oral intake as well as close follow-up of heart failure. Coding Level of Care Code Acute Finisher Operator for Chg Fwd Diagnoses RUQ abdominal pain R10.11 Hypoxemia R09.02 Diastolic CHF I50.33 Heart failure chronicity: acute on chronic COPD (chronic obstructive pulmonary disease) J44.9 COPD type: unspecified COPD Afib I48.11 Atrial fibrillation type: longstanding persistent Chronic anticoagulation Z79.01 Parkinson disease G20
--- NOTE | 2019-12-12 12:56 | PC.CHAP ---
Pastoral Care Encounter/Spiritual Assessment Type of Contact [] Declined scooping machine tender visit [] Patient/Family/Request visit [] Outpatient visit [] Follow-up visit [] Physician referral [] Code/Alert [x] Routine visit [] Staff referral [] Actively dying [] Patient sleeping [] Family support [] [] Out of room [] Palliative care [] [] Receiving care in room [] Pre-surgical visit [] Trauma [] Long length of stay [] ICU visit [] Other: Relational/Emotional Strength [x] Patient feels connected with others/family/visitors/staff [] Distress [] Loneliness/isolation [] Abandonment Spirituality of Patient [x] Person of Vivian [x] Attends Adventism of their Vivian [x] Believes in Prayer [x] Reads Bible or Spiritism materials [] There are Spiritual issues to be addressed Sales Department Supervisor Interventions [x] Prayer [x] Active listening [x] Non-anxious presence [x] Spiritual/emotional support [] Crisis/trauma care [x] Spiritual counseling [] Bereavement support [] Provided bereavement packet [] Provided Bible/devotional materials [] Provided toy/stuffed animal, coloring book to patient or family member [] Provided Communion [] Anointing/[place] [] Salvation [] Completed spiritual assessment [] Other: Impact on Illness or Injury [] Angry [] Fearful [x] Anxious [] Often cries [] Exhaustion [] Unable to work [] Unable to attend buddhist [] Unable to walk/stand [] Unable to read [] Unable to drive [] Unable to eat/drink [] Unable to sleep [] Unable to be with family [] Patient intubated [] Other: Summary Patient is anxious waiting on diagnosis. Time spent with patient 10 minutes
[2019-12-12 15:25] VITALS: BP 121/63; PULSE 56; RESP 18; TEMP 36.9; O2SAT 98
[2019-12-12] MEDS: warfarin 2 mg Tablet 4 MG PO (15:35)
[2019-12-12 16:51] VITALS: PULSE 66; RESP 16; O2SAT 98
[2019-12-12] MEDS: sennosides-docusate Tablet 2 TAB PO (18:00)
[2019-12-12] MEDS: polyethylene glycol 3350 Pkt 17 gm PO (18:00)
[2019-12-12 20:00] VITALS: BP 122/61; PULSE 60; RESP 18; TEMP 36.8; O2SAT 97
[2019-12-12] MEDS: atorvastatin 40 mg Tablet PO (22:36)
[2019-12-13] VITALS (13 sets, daily range): BP systolic 103–151; BP diastolic 44–82; PULSE 54–68; RESP 16–24; TEMP 36.4–37.7; O2SAT 94–100
[2019-12-13 05:09] LABS: Basophils % 0.5 %; Eosinophils % 0.7 %; Hematocrit 41.2 % (37.0-47.0); Hemoglobin 12.6 g/dL (11.5-15.3); Lymphocytes % 17.8 %; Mean Corpuscular HGB Conc 30.6 g/dL (30.0-36.0); Mean Corpuscular Hemoglobin 30.3 pg (28.0-34.0); Mean Platelet Volume 10.5 fL (7.4-10.4); Monocytes # 0.5 10^3/uL (0.2-0.9); Monocytes % 7.9 %; Neutrophils # 4.3 10^3/uL (1.8-7.7); Neutrophils % 72.9 %; Nucleated Red Blood Cells % 0 %; Platelet Count 142 10^3/cmm (130-400); Red Blood Count 4.16 10^6/uL (4.1-5.3); Red Cell Distribution Width 14.4 % (12.1-15.1); White Blood Count 5.8 10^3/uL (4.0-10.0)
[2019-12-13 05:21] LABS: Anion Gap 13.8 (5-19); Blood Urea Nitrogen 11 mg/dL (8-23); Calcium 9.1 mg/dL (8.5-10.5); Carbon Dioxide 34 mmol/L (22-29); Chloride 97 mmol/L (98-107); Creatinine Clr Calc Pharmacy 42.4059; Glucose 118 mg/dL (65-115); Osmolality Calculated 289 mOsm/kg (285-295); Potassium 3.8 mmol/L (3.5-5.1); Sodium 141 mmol/L (136-145)
[2019-12-13] MEDS: polyethylene glycol 3350 Pkt 17 gm PO (08:13)
[2019-12-13] MEDS: levothyroxine 50 mcg Tablet PO (08:13)
[2019-12-13] MEDS: sennosides-docusate Tablet 2 TAB PO (08:13)
[2019-12-13] MEDS: aspirin 81 mg Chew Tablet PO (08:13)
[2019-12-13] MEDS: TRAMadol 50 mg Tablet PO (08:15)
[2019-12-13] MEDS: fluoxetine 10 mg Capsule PO (08:16)
[2019-12-13] MEDS: metoprolol tartrate 25 mg Tablet 12.5 MG PO ×2 (08:22→21:00)
[2019-12-13] MEDS: FUROsemide 40 mg Tablet 80 MG PO ×2 (08:22→16:17)
[2019-12-13 08:23] LABS: INR 1.29 (0.8-1.2)
[2019-12-13] MEDS: verapamil ER 180 mg Tablet PO (08:39)
[2019-12-13] MEDS: tolterodine 2 mg Tablet PO ×2 (08:39→17:37)
--- NOTE | 2019-12-13 09:10 | PC.NURSE ---
Pt was delivered rice cereal with milk for breakfast. Pt stated she did not want the cereal or the milk but would like fruit. I requested fruit from dietary. Pt ate 1 cup of peaches and 1 cup of mixed fruit
[2019-12-13] MEDS: peg /e-lyte soln 4,000 mL Btl PO (11:36)
[2019-12-13] MEDS: bisacodyl 10 mg Supp PR (11:37)
--- NOTE | 2019-12-13 12:15 | PC.NURSE ---
Unable to obtain blood pressure, will return with manual cuff
--- NOTE | 2019-12-13 14:10 | PC.NURSE ---
Added missing blood pressure from 1200 vitals
--- NOTE | 2019-12-13 14:44 | PM.PN ---
Subjective Subjective: Interval history: Iris reports she has not had a bowel movement yet. Her abdomen still hurts. She reports no nausea this morning. Medications: Reviewed: Yes Vitals/I&O/Wt Last Vital Signs Temp 97.8 F 12/13/19 12:00 Pulse 57 L 12/13/19 12:00 Resp 24 H 12/13/19 12:00 BP 109/69 12/13/19 13:00 Pulse Ox 97 12/13/19 12:00 12/12/19 12/13/19 12/13/19 22:59 06:59 14:59 Intake Total 30 / 510 480 / 480 Output Total 500 / 900 450 / 1350 400 / 400 Balance -470 / -390 -450 / -840 80 / 80 Weight last 48 hrs Weight 68.719 kg Weight 66.451 kg Weight 67.358 kg Weight 67.132 kg Physical Exam Narrative: EXAM NARRATIVE: General exam is no apparent distress Cardiovascular regular rate and rhythm, heart sounds distant Lungs clear Pain to palpation right mid quadrant. Positive bowel sounds Extremities no cyanosis clubbing or edema Data : 12/13/19 04:31 12/13/19 03:56 A&P Assessment and plan (1) RUQ abdominal pain: This appears to be secondary to constipation. Will alleviate this, to see if pain improves. She has had a prior cholecystectomy. Doubt this is from her right inguinal hernia. No evidence of obstruction from this. Senna S twice daily, 2 tablets Continue MiraLAX Dulcolax suppository Still without bowel movement so she will start some GoLYTELY Slightly elevated temperatures. Secondary to colon distention cannot rule out bacterial translocation with her abdominal pain. Will initiate Zosyn. Status: Acute Code(s): R10.11 - Right upper quadrant pain (2) Hypoxemia: Continue Lasix. May be secondary to fluid overload, or possibly be chronic with decreased ability to take deep breaths secondary to constipation. This appears slightly improved Status: Acute Code(s): R09.02 - Hypoxemia (3) Diastolic CHF: Acute on chronic. Continue oral Lasix Status: Acute Qualifiers: Heart failure chronicity: acute on chronic Qualified Code(s): I50.33 - Acute on chronic diastolic (congestive) heart failure Code(s): I50.30 - Unspecified diastolic (congestive) heart failure (4) COPD (chronic obstructive pulmonary disease): DuoNeb as needed. No evidence of acute exacerbation Status: Acute Qualifiers: COPD type: unspecified COPD Qualified Code(s): J44.9 - Chronic obstructive pulmonary disease, unspecified Code(s): J44.9 - Chronic obstructive pulmonary disease, unspecified (5) Afib: Chronic rate controlled Status: Acute Qualifiers: Atrial fibrillation type: longstanding persistent Qualified Code(s): I48.11 - Longstanding persistent atrial fibrillation Code(s): I48.91 - Unspecified atrial fibrillation (6) Chronic anticoagulation: Continue Coumadin secondary to mechanical valve. INR daily. Continue heparin as she is not therapeutic. Increase Coumadin to 5 mg daily Status: Acute Code(s): Z79.01 - buttermaker continuous churn (current) use of anticoagulants (7) Parkinson disease: Chronically on Sinemet Status: Acute Code(s): G20 - Parkinson's disease Additional A&P Information GERD Obstructive sleep apnea History of anemia Hypothyroidism Home health on discharge Full code Attestations Medical Necessity Statement*: Needs continued hospital stay for further management of abdominal discomfort, treatment of obstipation, initiation of IV antibiotics Coding Level of Care Code Acute Beer Merchant for Chg Fwd Diagnoses RUQ abdominal pain R10.11 Hypoxemia R09.02 Diastolic CHF I50.33 Heart failure chronicity: acute on chronic COPD (chronic obstructive pulmonary disease) J44.9 COPD type: unspecified COPD Afib I48.11 Atrial fibrillation type: longstanding persistent Chronic anticoagulation Z79.01 Parkinson disease G20
[2019-12-13] MEDS: warfarin 5 mg Tablet PO (15:09)
--- NOTE | 2019-12-13 16:33 | PC.CHAP ---
Pastoral Care Encounter/Spiritual Assessment Type of Contact [] Declined parts department supervisor visit [] Patient/Family/Request visit [] Outpatient visit [] Follow-up visit [] Physician referral [] Code/Alert [x] Routine visit [] Staff referral [] Actively dying [] Patient sleeping [] Family support [] [] Out of room [] Palliative care [] [x] Receiving care in room [] Pre-surgical visit [] Trauma [x] Long length of stay [] ICU visit [] Other: Relational/Emotional Strength [x] Patient feels connected with others/family/visitors/staff [] Distress [] Loneliness/isolation [] Abandonment Spirituality of Patient [x] Person of Vivian [] Attends Cheondoism of their Vivian [x] Believes in Prayer [] Reads Bible or Congregational materials [] There are Spiritual issues to be addressed Multilith Operator Interventions [] Prayer [x] Active listening [x] Non-anxious presence [x] Spiritual/emotional support [] Crisis/trauma care [] Spiritual counseling [] Bereavement support [] Provided bereavement packet [] Provided Bible/devotional materials [] Provided toy/stuffed animal, coloring book to patient or family member [] Provided Communion [] Anointing/[place] [] Salvation [x] Completed spiritual assessment [] Other: Impact on Illness or Injury [] Angry [] Fearful [] Anxious [] Often cries [] Exhaustion [] Unable to work [] Unable to attend gnosticist [] Unable to walk/stand [] Unable to read [] Unable to drive [] Unable to eat/drink [] Unable to sleep [] Unable to be with family [] Patient intubated [] Other: Summary checking and testing to come to root of problem Time spent with patient 10 min
[2019-12-13] MEDS: pantoprazole DR 40 mg Tablet PO (21:00)
[2019-12-13] MEDS: atorvastatin 40 mg Tablet PO (21:00)
[2019-12-14] VITALS (10 sets, daily range): BP systolic 108–129; BP diastolic 45–73; PULSE 55–68; RESP 16–24; TEMP 36.6–37.2; O2SAT 94–98
[2019-12-14 05:38] LABS: Basophils % 0.5 %; Eosinophils # 0.1 10^3/uL (0.0-0.8); Eosinophils % 1.7 %; Hematocrit 35.3 % (37.0-47.0); Lymphocytes % 22.8 %; Mean Corpuscular HGB Conc 31.2 g/dL (30.0-36.0); Mean Corpuscular Hemoglobin 29.3 pg (28.0-34.0); Mean Corpuscular Volume 94.1 fL (81-99); Mean Platelet Volume 10.4 fL (7.4-10.4); Monocytes # 0.4 10^3/uL (0.2-0.9); Monocytes % 9.3 %; Neutrophils # 2.8 10^3/uL (1.8-7.7); Neutrophils % 65.7 %; Nucleated Red Blood Cells % 0 %; Platelet Count 124 10^3/cmm (130-400); Red Blood Count 3.75 10^6/uL (4.1-5.3); Red Cell Distribution Width 14.1 % (12.1-15.1); White Blood Count 4.2 10^3/uL (4.0-10.0)
[2019-12-14 05:51] LABS: INR 1.38 (0.8-1.2)
[2019-12-14 05:55] LABS: Alanine Aminotransferase < 5 U/L (0-33); Albumin Level 3.4 g/dL (3.5-5.2); Alkaline Phosphatase 168 IU/L (35-105); Anion Gap 11.5 (5-19); Aspartate Amino Transferase 13 U/L (0-32); Blood Urea Nitrogen 10 mg/dL (8-23); Calcium 8.6 mg/dL (8.5-10.5); Carbon Dioxide 36 mmol/L (22-29); Chloride 98 mmol/L (98-107); Globulin 3.2 g/dL (1.3-4.6); Glucose 114 mg/dL (65-115); Potassium 3.5 mmol/L (3.5-5.1); Sodium 142 mmol/L (136-145); Total Protein 6.6 g/dL (6.6-8.7)
[2019-12-14] MEDS: FUROsemide 40 mg Tablet 80 MG PO ×2 (07:43→17:30)
[2019-12-14] MEDS: aspirin 81 mg Chew Tablet PO (09:09)
[2019-12-14] MEDS: sennosides-docusate Tablet 2 TAB PO ×2 (09:09→17:30)
[2019-12-14] MEDS: metoprolol tartrate 25 mg Tablet 12.5 MG PO ×2 (09:10→20:52)
[2019-12-14] MEDS: fluoxetine 10 mg Capsule PO (09:12)
[2019-12-14] MEDS: levothyroxine 50 mcg Tablet PO (09:12)
[2019-12-14] MEDS: polyethylene glycol 3350 Pkt 17 gm PO ×2 (09:15→17:30)
--- NOTE | 2019-12-14 09:30 | PC.SOCIAL ---
IMM Page 2 of IMM explained to and signed by patient's spouse. They verbalize understanding. Initialed, dated, and timed and placed in chart. Copy provided to patient.
[2019-12-14] MEDS: verapamil ER 180 mg Tablet PO (09:33)
[2019-12-14] MEDS: tolterodine 2 mg Tablet PO ×2 (09:33→17:29)
[2019-12-14] MEDS: enoxaparin 80 mg/0.8 mL Syringe 70 MG SUBCUT ×2 (09:54→20:56)
--- NOTE | 2019-12-14 11:44 | P.PN_ITS ---
Subjective Subjective: Interval history: Iris reports she is feeling quite a bit better, after having a bowel movement. Abdominal pain is greatly improved. However, she reports significant global weakness. This is been worsening even prior to the abdominal pain. Family is concerned that she may need rehabilitation. Medications: Reviewed: Yes Vitals/I&O/Wt Last Vital Signs Temp 97.8 F 12/14/19 11:40 Pulse 66 12/14/19 11:40 Resp 16 12/14/19 11:40 BP 108/54 12/14/19 11:40 Pulse Ox 95 12/14/19 11:40 12/13/19 12/14/19 12/14/19 22:59 06:59 14:59 Intake Total 200 / 680 320 / 1000 280 / 280 Output Total 0 / 400 750 / 1150 Balance 200 / 280 -430 / -150 280 / 280 Weight last 48 hrs Weight 69.944 kg Weight 68.719 kg Weight 66.451 kg Physical Exam Narrative: EXAM NARRATIVE: General exam is no apparent distress Cardiovascular irregular, irregular without murmur Lungs clear Abdomen is soft with positive bowel sounds. No significant pain. Extremities no cyanosis clubbing or edema Data : 12/14/19 04:17 12/14/19 04:17 A&P Assessment and plan (1) RUQ abdominal pain: This appears to be secondary to constipation. Will alleviate this, to see if pain improves. She has had a prior cholecystectomy. Doubt this is from her right inguinal hernia. No evidence of obstruction from this. Senna S twice daily, 2 tablets Continue MiraLAX Dulcolax suppository Patient has now had 3 bowel movements and pain is significantly improved. Imipenem was started secondary to low-grade temperature elevations, concern of bacterial translocation. Consider a short course of oral Flagyl upon discharge. Status: Acute Code(s): R10.11 - Right upper quadrant pain (2) Hypoxemia: Continue Lasix at home dose. She is less symptomatic. Family reports she wears 2 L at night and as needed. This is what she is on currently. Status: Acute Code(s): R09.02 - Hypoxemia (3) Diastolic CHF: Acute on chronic. Continue oral Lasix Status: Acute Qualifiers: Heart failure chronicity: acute on chronic Qualified Code(s): I50.33 - Acute on chronic diastolic (congestive) heart failure Code(s): I50.30 - Unspecified diastolic (congestive) heart failure (4) COPD (chronic obstructive pulmonary disease): DuoNeb as needed. No evidence of acute exacerbation Status: Acute Qualifiers: COPD type: unspecified COPD Qualified Code(s): J44.9 - Chronic obstructive pulmonary disease, unspecified Code(s): J44.9 - Chronic obstructive pulmonary disease, unspecified (5) Afib: Chronic rate controlled Status: Acute Qualifiers: Atrial fibrillation type: longstanding persistent Qualified Code(s): I48.11 - Longstanding persistent atrial fibrillation Code(s): I48.91 - Unspecified atrial fibrillation (6) Chronic anticoagulation: Continue Coumadin secondary to mechanical valve. INR still not therapeutic. Coumadin has been increased to 5 mg. INR is increasing. As she has a mitral mechanical valve will provide Lovenox treatment currently while in the hospital as long as INR is subtherapeutic. 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 Considering skilled care. GERD Obstructive sleep apnea History of anemia Hypothyroidism Full code Attestations Medical Necessity Statement*: Needs continued hospital stay for close monitoring of abdominal pain, adjustment of Coumadin for therapeutic INR, assessment of weakness to see if skilled care is needed. 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
[2019-12-14] MEDS: warfarin 5 mg Tablet PO (14:19)
[2019-12-14] MEDS: atorvastatin 40 mg Tablet PO (20:52)
[2019-12-14] MEDS: pantoprazole DR 40 mg Tablet PO (20:52)
[2019-12-15] VITALS (8 sets, daily range): BP systolic 107–134; BP diastolic 55–64; PULSE 58–73; RESP 17–18; TEMP 36.2–36.9; O2SAT 79–99
[2019-12-15] MEDS: sennosides-docusate Tablet 2 TAB PO ×2 (08:57→17:54)
[2019-12-15] MEDS: aspirin 81 mg Chew Tablet PO (08:57)
[2019-12-15] MEDS: levothyroxine 50 mcg Tablet PO (08:57)
[2019-12-15] MEDS: polyethylene glycol 3350 Pkt 17 gm PO ×2 (08:57→17:54)
[2019-12-15] MEDS: fluoxetine 10 mg Capsule PO (08:58)
[2019-12-15] MEDS: verapamil ER 180 mg Tablet PO (09:00)
[2019-12-15] MEDS: tolterodine 2 mg Tablet PO ×2 (09:00→17:54)
[2019-12-15] MEDS: metoprolol tartrate 25 mg Tablet 12.5 MG PO ×2 (09:04→20:25)
[2019-12-15] MEDS: FUROsemide 40 mg Tablet 80 MG PO ×2 (09:04→16:06)
[2019-12-15] MEDS: enoxaparin 80 mg/0.8 mL Syringe 70 MG SUBCUT (09:06)
--- NOTE | 2019-12-15 13:02 | P.PN_ITS ---
Subjective Subjective: Interval history: Iris reports she is doing okay. Abdomen feels better. Is able to eat. Medications: Reviewed: Yes Vitals/I&O/Wt Last Vital Signs Temp 97.1 F L 12/15/19 12:00 Pulse 73 12/15/19 12:00 Resp 18 12/15/19 12:00 BP 134/58 12/15/19 12:00 Pulse Ox 94 12/15/19 12:00 12/14/19 12/15/19 12/15/19 22:59 06:59 14:59 Intake Total 820 / 1100 100 / 1200 120 / 120 Output Total 400 / 400 400 / 800 800 / 800 Balance 420 / 700 -300 / 400 -680 / -680 Weight last 48 hrs Weight 70.449 kg Weight 69.944 kg Physical Exam Narrative: EXAM NARRATIVE: General exam is no apparent distress Cardiovascular irregular, irregular without murmur Lungs clear Abdomen is soft with positive bowel sounds. No significant pain. Extremities no cyanosis clubbing or edema Data : 12/14/19 04:17 12/14/19 04:17 A&P Assessment and plan (1) RUQ abdominal pain: This appears to be secondary to constipation. Will alleviate this, to see if pain improves. She has had a prior cholecystectomy. Doubt this is from her right inguinal hernia. No evidence of obstruction from this. Senna S twice daily, 2 tablets Continue MiraLAX Dulcolax suppository With bowel movements patient significantly improved. Imipenem was started secondary to low-grade temperature elevations, concern of bacterial translocation. I will change her to a short course of Cipro and Flagyl p.o. Status: Acute Code(s): R10.11 - Right upper quadrant pain (2) Hypoxemia: Continue Lasix at home dose. She is less symptomatic. Family reports she wears 2 L at night and as needed. This is what she is on currently. Status: Acute Code(s): R09.02 - Hypoxemia (3) Diastolic CHF: Acute on chronic. Continue oral Lasix Status: Acute Qualifiers: Heart failure chronicity: acute on chronic Qualified Code(s): I50.33 - Acute on chronic diastolic (congestive) heart failure Code(s): I50.30 - Unspecified diastolic (congestive) heart failure (4) COPD (chronic obstructive pulmonary disease): DuoNeb as needed. No evidence of acute exacerbation Status: Acute Qualifiers: COPD type: unspecified COPD Qualified Code(s): J44.9 - Chronic obstructive pulmonary disease, unspecified Code(s): J44.9 - Chronic obstructive pulmonary disease, unspecified (5) Afib: Chronic rate controlled Status: Acute Qualifiers: Atrial fibrillation type: longstanding persistent Qualified Code(s): I48.11 - Longstanding persistent atrial fibrillation Code(s): I48.91 - Unspecified atrial fibrillation (6) Chronic anticoagulation: Continue Coumadin secondary to mechanical valve. INR has significantly increased to 2.0. Although not perfectly therapeutic I expect this to continue to elevate in the face of antibiotics. Reduce Coumadin to 4 mg. INR tomorrow. 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 Considering skilled care. GERD Obstructive sleep apnea History of anemia Hypothyroidism Full code Attestations Medical Necessity Statement*: Needs continued hospitalization for adjustment of medications for INR, physical therapy to prevent fall. De-escalation of antibiotics. Coding Level of Care Code Acute Manager Of Training And Development for Chg Fwd Diagnoses RUQ abdominal pain R10.11 Hypoxemia R09.02 Diastolic CHF I50.33 Heart failure chronicity: acute on chronic COPD (chronic obstructive pulmonary disease) J44.9 COPD type: unspecified COPD Afib I48.11 Atrial fibrillation type: longstanding persistent Chronic anticoagulation Z79.01 Parkinson disease G20
[2019-12-15] MEDS: warfarin 2 mg Tablet 4 MG PO (13:55)
[2019-12-15] MEDS: metroNIDAZOLE 500 MG Tablet PO ×2 (14:02→20:26)
[2019-12-15] MEDS: ciprofloxacin 500 mg Tablet PO (17:54)
[2019-12-15] MEDS: pantoprazole DR 40 mg Tablet PO (20:24)
[2019-12-15] MEDS: atorvastatin 40 mg Tablet PO (20:25)
[2019-12-16] VITALS (7 sets, daily range): BP systolic 111–152; BP diastolic 49–78; PULSE 61–83; RESP 16–32; TEMP 36.7–37.3; O2SAT 83–98
[2019-12-16 07:05] LABS: Hematocrit 40.1 % (37.0-47.0); Hemoglobin 12.1 g/dL (11.5-15.3); Mean Corpuscular HGB Conc 30.2 g/dL (30.0-36.0); Mean Corpuscular Hemoglobin 29.9 pg (28.0-34.0); Mean Platelet Volume 9.8 fL (7.4-10.4); Platelet Count 108 10^3/cmm (130-400); Red Blood Count 4.05 10^6/uL (4.1-5.3); Red Cell Distribution Width 14.1 % (12.1-15.1); White Blood Count 4.3 10^3/uL (4.0-10.0)
[2019-12-16 07:20] LABS: Blood Urea Nitrogen 10 mg/dL (8-23); Calcium 9.3 mg/dL (8.5-10.5); Carbon Dioxide 39 mmol/L (22-29); Chloride 96 mmol/L (98-107); Glucose 98 mg/dL (65-115); Osmolality Calculated 292 mOsm/kg (285-295); Sodium 143 mmol/L (136-145)
[2019-12-16 07:46] LABS: INR 2.64 (0.8-1.2)
[2019-12-16 07:51] LABS: Absolute Segmented Neutrophil 2.2 10/cmm (1.6-7.1); Band Neutrophils Absolute 0.7 10^3/cmm (0.0-1.2); Eosinophils 2 %; Lymphocytes 24 %; Monocytes Absolute 0.2 10^3/cmm (0.1-0.6); Platelet Estimate Decreased (Normal); Segmented Neutrophils 53 %; Total Cells Counted 100 (0-100)
[2019-12-16] MEDS: aspirin 81 mg Chew Tablet PO (10:39)
[2019-12-16] MEDS: levothyroxine 50 mcg Tablet PO (10:39)
[2019-12-16] MEDS: fluoxetine 10 mg Capsule PO (10:39)
[2019-12-16] MEDS: ciprofloxacin 500 mg Tablet PO ×2 (10:39→17:42)
[2019-12-16] MEDS: FUROsemide 40 mg Tablet 80 MG PO (10:40)
[2019-12-16] MEDS: sennosides-docusate Tablet 2 TAB PO ×2 (10:40→17:42)
[2019-12-16] MEDS: metroNIDAZOLE 500 MG Tablet PO ×3 (10:40→20:51)
[2019-12-16] MEDS: metoprolol tartrate 25 mg Tablet 12.5 MG PO ×2 (10:41→20:51)
[2019-12-16] MEDS: verapamil ER 180 mg Tablet PO (11:01)
[2019-12-16] MEDS: polyethylene glycol 3350 Pkt 17 gm PO (11:01)
[2019-12-16] MEDS: tolterodine 2 mg Tablet PO ×2 (11:01→17:45)
[2019-12-16] MEDS: warfarin 2 mg Tablet 4 MG PO (15:49)
[2019-12-16] MEDS: FUROsemide 40 mg Tablet PO (17:41)
--- NOTE | 2019-12-16 19:40 | P.PN_ITS ---
Subjective Subjective: Interval history: She has had several large bowel movements. Still having some discomfort in the right side of the abdomen, however, symptoms are better compared to previous. Vitals/I&O/Wt Last Vital Signs Temp 98.7 F 12/16/19 15:48 Pulse 68 12/16/19 15:48 Resp 16 12/16/19 15:48 BP 142/50 12/16/19 15:48 Pulse Ox 94 12/16/19 15:48 12/16/19 12/16/19 12/16/19 06:59 14:59 22:59 Intake Total 720 / 720 Output Total 1500 / 3525 Balance -1500 / -2925 720 / 720 Weight last 48 hrs Weight 70.562 kg Weight 70.449 kg Physical Exam Const: COMMON NORMALS: no apparent distress OTHER: Sitting up in bed. Family visiting. HENMT: COMMON NORMALS: oropharynx normal Neck/C-Spine: COMMON NORMALS: no JVD Resp: COMMON NORMALS: normal respiratory effort and clear to auscultation bilaterally AUSCULTATION: clear to auscultation bilaterally Cardio: COMMON NORMALS: no JVD, regular rhythm, S1 normal heart sound, S2 normal heart sound and no murmurs RHYTHM: regular rhythm HEART SOUNDS: S1 normal and S2 normal GI: COMMON NORMALS: normal to inspection, nondistended, normoactive bowel sounds, soft to palpation and non-tender (To palpation) PALPATION: Yes soft Extremity: COMMON NORMALS: no joint enlargement and no pedal edema Neuro: COMMON NORMALS: moves all extremities Skin: COMMON NORMALS: no rashes or lesions noted GENERAL SKIN EXAM: no rashes or lesions noted Data : 12/16/19 06:48 12/16/19 06:48 A&P Assessment and plan (1) RUQ abdominal pain: Improved. CT abdomen pelvis with right inguinal hernia with loop of small bowel without evidence of incarceration. Had several bowel movements. Abdominal symptoms are better. Still some discomfort in the right side. She has had a prior cholecystectomy. Symptoms not suspected to be due to inguinal hernia. Continue bowel regimen. Continue empiric antibiotic at this time. Will repeat liver function testing due to elevated alkaline phosphatase. Check GGT. Status: Acute Code(s): R10.11 - Right upper quadrant pain (2) Hypoxemia: Currently at baseline oxygen at 2 L by nasal cannula. At this time continues on home Lasix, although dose decreased to 40 mg this afternoon due to soft blood pressure. Subsequently with improvement. Status: Acute Code(s): R09.02 - Hypoxemia (3) Diastolic CHF: Stable oxygenation. Appears to be close to euvolemia. Continue oral Las ix. Status: Acute Qualifiers: Heart failure chronicity: acute on chronic Qualified Code(s): I50.33 - Acute on chronic diastolic (congestive) heart failure Code(s): I50.30 - Unspecified diastolic (congestive) heart failure (4) COPD (chronic obstructive pulmonary disease): Continue nebs as needed. Status: Acute Qualifiers: COPD type: unspecified COPD Qualified Code(s): J44.9 - Chronic obstruc tive pulmonary disease, unspecified Code(s): J44.9 - Chronic obstructive pulmonary disease, unspecified (5) Afib: Chronic rate controlled Status: Acute Qualifiers: Atrial fibrillation type: longstanding persistent Qualified Code(s): I48.11 - Longstanding persistent atrial fibrillation Code(s): I48.91 - Unspecified atrial fibrillation (6) Chronic anticoagulation: INR now therapeutic. Continue 4 mg. Reassess. 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 Considering skilled care. Appreciate discharge planning assistance. GERD Obstructive sleep apnea History of anemia Hypothyroidism Attestations Medical Necessity Statement*: Continue admission for assessment management of abdominal pain, suspected occult colitis or degree of bacterial translocation, optimization of anticoagulation due to mechanical mitral valve. Arrangements in progress for placement to SNF for rehabilitation. Coding Level of Care Code Acute Resolution Expert for Chg Fwd Diagnoses RUQ abdominal pain R10.11 Hypoxemia R09.02 Diastolic CHF I50.33 Heart failure chronicity: acute on chronic COPD (chronic obstructive pulmonary disease) J44.9 COPD type: unspecified COPD Afib I48.11 Atrial fibrillation type: longstanding persistent Chronic anticoagulation Z79.01 Parkinson disease G20
[2019-12-16] MEDS: atorvastatin 40 mg Tablet PO (20:51)
[2019-12-16] MEDS: pantoprazole DR 40 mg Tablet PO (20:51)
[2019-12-17] VITALS (7 sets, daily range): BP systolic 122–162; BP diastolic 67–84; PULSE 60–91; RESP 18–32; TEMP 36.7–37.3; O2SAT 91–99
[2019-12-17 05:46] LABS: INR 3.12 (0.8-1.2)
[2019-12-17 06:02] LABS: Alanine Aminotransferase 11 U/L (0-33); Albumin Level 3.5 g/dL (3.5-5.2); Alkaline Phosphatase 167 IU/L (35-105); Anion Gap 10.2 (5-19); Aspartate Amino Transferase 31 U/L (0-32); Blood Urea Nitrogen 11 mg/dL (8-23); Calcium 8.7 mg/dL (8.5-10.5); Carbon Dioxide 37 mmol/L (22-29); Chloride 96 mmol/L (98-107); Globulin 2.9 g/dL (1.3-4.6); Glucose 108 mg/dL (65-115); Potassium 3.2 mmol/L (3.5-5.1); Sodium 140 mmol/L (136-145); Total Bilirubin 0.8 mg/dL (0.15-1.2); Total Protein 6.4 g/dL (6.6-8.7)
[2019-12-17 06:23] LABS: Basophils % 0.3 %; Eosinophils # 0.1 10^3/uL (0.0-0.8); Eosinophils % 2.2 %; Hemoglobin 11.5 g/dL (11.5-15.3); Lymphocytes # 0.7 10^3/uL (0.8-4.8); Mean Corpuscular HGB Conc 31.1 g/dL (30.0-36.0); Mean Corpuscular Hemoglobin 29.1 pg (28.0-34.0); Mean Corpuscular Volume 93.7 fL (81-99); Mean Platelet Volume 10.3 fL (7.4-10.4); Monocytes # 0.4 10^3/uL (0.2-0.9); Monocytes % 11.3 %; Neutrophils # 2.4 10^3/uL (1.8-7.7); Neutrophils % 66.9 %; Nucleated Red Blood Cells % 0 %; Platelet Count 112 10^3/cmm (130-400); Red Blood Count 3.95 10^6/uL (4.1-5.3); Red Cell Distribution Width 14.4 % (12.1-15.1); White Blood Count 3.6 10^3/uL (4.0-10.0)
[2019-12-17 06:48] LABS: Gamma Glutamyl Transferase 10 U/L (36-)
[2019-12-17] MEDS: FUROsemide 40 mg Tablet 80 MG PO ×2 (07:26→18:29)
[2019-12-17 09:34] LABS: Magnesium 2.2 mg/dL (1.7-2.3)
[2019-12-17] MEDS: levothyroxine 50 mcg Tablet PO (09:37)
[2019-12-17] MEDS: verapamil ER 180 mg Tablet PO (09:37)
[2019-12-17] MEDS: sennosides-docusate Tablet 2 TAB PO ×2 (09:37→18:30)
[2019-12-17] MEDS: fluoxetine 10 mg Capsule PO (09:37)
[2019-12-17] MEDS: metroNIDAZOLE 500 MG Tablet PO ×3 (09:37→20:35)
[2019-12-17] MEDS: ciprofloxacin 500 mg Tablet PO ×2 (09:38→18:30)
[2019-12-17] MEDS: aspirin 81 mg Chew Tablet PO (09:38)
[2019-12-17] MEDS: polyethylene glycol 3350 Pkt 17 gm PO ×2 (09:39→18:30)
[2019-12-17] MEDS: tolterodine 2 mg Tablet PO ×2 (09:42→18:30)
[2019-12-17] MEDS: metoprolol tartrate 25 mg Tablet 12.5 MG PO ×2 (09:45→20:35)
[2019-12-17] MEDS: warfarin 3 mg Tablet PO (18:28)
--- NOTE | 2019-12-17 20:01 | PM.PN ---
Subjective Subjective: Interval history: She is doing better. Having intermittent cough. Abdominal pain is gone apart from muscle discomfort due to coughing. Vitals/I&O/Wt Last Vital Signs Temp 98.8 F 12/17/19 16:00 Pulse 60 12/17/19 16:00 Resp 20 H 12/17/19 16:00 BP 139/78 12/17/19 16:00 Pulse Ox 99 12/17/19 16:00 12/17/19 12/17/19 12/17/19 06:59 14:59 22:59 Intake Total 60 / 900 90 / 90 240 / 330 Output Total 300 / 300 350 / 350 Balance -240 / 600 -260 / -260 240 / -20 Weight last 48 hrs Weight 68.765 kg Weight 70.562 kg Physical Exam Const: COMMON NORMALS: no apparent distress OTHER: Sitting up in bed. HENMT: COMMON NORMALS: oropharynx normal Neck/C-Spine: COMMON NORMALS: no JVD Resp: COMMON NORMALS: normal respiratory effort and clear to auscultation bilaterally AUSCULTATION: clear to auscultation bilaterally Cardio: COMMON NORMALS: no JVD, regular rhythm, S1 normal heart sound, S2 normal heart sound and no murmurs RHYTHM: regular rhythm HEART SOUNDS: S1 normal and S2 normal GI: COMMON NORMALS: normal to inspection, nondistended, normoactive bowel sounds, soft to palpation and non-tender (To palpation) PALPATION: Yes soft Extremity: COMMON NORMALS: no joint enlargement and no pedal edema Neuro: COMMON NORMALS: moves all extremities Skin: COMMON NORMALS: no rashes or lesions noted GENERAL SKIN EXAM: no rashes or lesions noted Data : 12/17/19 05:05 12/17/19 05:05 A&P Assessment and plan (1) RUQ abdominal pain: Her pain has resolved. She does have some muscle soreness from coughing. Suspect due to bronchitis/mild exacerbation of COPD. CT abdomen pelvis with right inguinal hernia with loop of small bowel without evidence of incarceration. Had several bowel movements. Abdominal symptoms are better. Still some discomfort in the right side. She has had a prior cholecystectomy. Symptoms not suspected to be due to inguinal hernia. Continue bowel regimen. Continue empiric antibiotic at this time. Will repeat liver function testing due to elevated alkaline phosphatase. GGT is not elevated. Status: Acute Code(s): R10.11 - Right upper quadrant pain (2) Hypoxemia: Currently at baseline oxygen at 2 L by nasal cannula. At this time continues on home Lasix. Status: Acute Code(s): R09.02 - Hypoxemia (3) Diastolic CHF: Stable oxygenation. Appears to be close to euvolemia. Continue oral Lasix. Status: Acute Qualifiers: Heart failure chronicity: acute on chronic Qualified Code(s): I50.33 - Acute on chronic diastolic (congestive) heart failure Code(s): I50.30 - Unspecified diastolic (congestive) heart failure (4) COPD (chronic obstructive pulmonary disease): With mild COPD exacerbation. Will add scheduled nebulization. Continue nebs as needed as well. Status: Acute Qualifiers: COPD type: unspecified COPD Qualified Code(s): J44.9 - Chronic obstructive pulmonary disease, unspecified Code(s): J44.9 - Chronic obstructive pulmonary disease, unspecified (5) Afib: Chronic rate controlled Status: Acute Qualifiers: Atrial fibrillation type: longstanding persistent Qualified Code(s): I48.11 - Longstanding persistent atrial fibrillation Code(s): I48.91 - Unspecified atrial fibrillation (6) Chronic anticoagulation: INR with additional rise. Decrease warfarin dose to 3 mg. Reassess. 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 Considering skilled care. Appreciate discharge planning assistance. GERD Obstructive sleep apnea History of anemia Hypothyroidism Attestations Medical Necessity Statement*: Continue patient versus management of acute bronchitis/COPD exacerbation abdominal discomfort. Pending discharge arrangements. 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
[2019-12-17] MEDS: atorvastatin 40 mg Tablet PO (20:34)
[2019-12-17] MEDS: pantoprazole DR 40 mg Tablet PO (20:34)
[2019-12-17] MEDS: ipratropium-albuterol 3 mL Neb INHALATION (21:33)
[2019-12-18] VITALS (11 sets, daily range): BP systolic 107–150; BP diastolic 46–71; PULSE 71–85; RESP 14–24; TEMP 36.4–37.2; O2SAT 89–96
[2019-12-18] MEDS: ipratropium-albuterol 3 mL Neb INHALATION ×3 (03:25→14:47)
[2019-12-18] MEDS: benzonatate 100 mg Capsule 200 MG PO (05:29)
[2019-12-18 05:37] LABS: Basophils % 0.2 %; Eosinophils # 0.1 10^3/uL (0.0-0.8); Eosinophils % 1.1 %; Hematocrit 38.1 % (37.0-47.0); Hemoglobin 11.9 g/dL (11.5-15.3); Lymphocytes # 0.8 10^3/uL (0.8-4.8); Lymphocytes % 16.5 %; Mean Corpuscular HGB Conc 31.2 g/dL (30.0-36.0); Mean Corpuscular Hemoglobin 29.9 pg (28.0-34.0); Mean Corpuscular Volume 95.7 fL (81-99); Monocytes # 0.3 10^3/uL (0.2-0.9); Neutrophils # 3.5 10^3/uL (1.8-7.7); Neutrophils % 75.2 %; Nucleated Red Blood Cells % 0 %; Platelet Count 121 10^3/cmm (130-400); Red Blood Count 3.98 10^6/uL (4.1-5.3); Red Cell Distribution Width 14.6 % (12.1-15.1); White Blood Count 4.6 10^3/uL (4.0-10.0)
[2019-12-18 06:01] LABS: INR 3.85 (0.8-1.2)
[2019-12-18 06:03] LABS: Anion Gap 12.1 (5-19); Blood Urea Nitrogen 11 mg/dL (8-23); Calcium 8.9 mg/dL (8.5-10.5); Carbon Dioxide 33 mmol/L (22-29); Chloride 99 mmol/L (98-107); Glucose 137 mg/dL (65-115); Osmolality Calculated 290 mOsm/kg (285-295); Potassium 3.1 mmol/L (3.5-5.1); Sodium 141 mmol/L (136-145)
[2019-12-18] MEDS: ciprofloxacin 500 mg Tablet PO (08:29)
[2019-12-18] MEDS: metroNIDAZOLE 500 MG Tablet PO ×2 (08:29→15:45)
[2019-12-18] MEDS: levothyroxine 50 mcg Tablet PO (08:30)
[2019-12-18] MEDS: aspirin 81 mg Chew Tablet PO (08:30)
[2019-12-18] MEDS: fluoxetine 10 mg Capsule PO (08:30)
[2019-12-18] MEDS: polyethylene glycol 3350 Pkt 17 gm PO (08:31)
[2019-12-18] MEDS: metoprolol tartrate 25 mg Tablet 12.5 MG PO (08:38)
[2019-12-18] MEDS: FUROsemide 40 mg Tablet 80 MG PO ×2 (08:38→15:45)
[2019-12-18] MEDS: verapamil ER 180 mg Tablet PO (09:09)
[2019-12-18] MEDS: tolterodine 2 mg Tablet PO (09:09)
--- NOTE | 2019-12-18 12:55 | P.DS_ITS ---
Discharge Providers Date of Admission: 12/11/19 20:35 Date of Discharge: December 18, 2019 Attending Provider at Admission: Karis Madsen MD Attending Provider at Discharge: Silas Fox Primary Care Provider: Michael Hampton DO Diagnoses at Discharge Discharge Diagnosis (1) RUQ abdominal pain: Status: Acute (2) Hypoxemia: Status: Acute (3) Diastolic CHF: Status: Acute Qualifiers: Heart failure chronicity: acute on chronic Qualified Code(s): I50.33 - Acute on chronic diastolic (congestive) heart failure (4) COPD (chronic obstructive pulmonary disease): Status: Acute Problem details: Former smoker, occasional use of breathing treatments Qualifiers: COPD type: unspecified COPD Qualified Code(s): J44.9 - Chronic obstructive pulmonary disease, unspecified (5) Afib: Status: Acute Qualifiers: Atrial fibrillation type: longstanding persistent Qualified Code(s): I48.11 - Longstanding persistent atrial fibrillation (6) Chronic anticoagulation: Status: Acute Problem details: Due to mechanical mitral valve; coumadin (7) Parkinson disease: Status: Acute Problem details: Sinimet Reason for Visit Reason for Visit: Reason For Visit: abdominal pain and difficulty breathing Hospital Course Hospital Course: Mrs. Kirk was admitted with a chief complaint of abdominal pain. The emergency room work-up was unrevealing for specific source of the pain except for pancolonic constipation. She was noted however to be hypoxic. She is normally on oxygen at night due to a history of obstructive sleep apnea but was requiring 2 L of oxygen on arrival to the emergency room to maintain saturations above 90. Clinically felt to have some degree of CHF on presentation. Treated with Lasix, then transition to home dose 80 mg twice daily. There was perhaps mild exacerbation of COPD with cough, although this is improved. She continues on 2 L of oxygen by nasal cannula. Titrate for goal saturation of 92%. Her abdominal pain had completely resolved after multiple bowel movements after she was started on a bowel regimen. Senokot added to MiraLAX after discharge. Add fiber to diet. Avoid future constipation. Due to low-grade fever while in the hospital started on a course of antibiotics initially Primaxin, subsequently transitioned to oral ciprofloxacin and Flagyl for concern of possible bacterial translocation with a severe degree of constipation. She will complete a course with 4 more days of both, although otherwise there was no evidence of colitis or sepsis. Her warfarin had to be adjusted, and initially subtherapeutic, subsequently increasing, and now mildly supratherapeutic at 3.85 with target 2.5-3.5. Her usual warfarin dose for now is decreased down to 2 mg. INR is requested to be followed up in 3 days. Physical Exam Const: COMMON NORMALS: no apparent distress OTHER: Sitting up in bed. HENMT: COMMON NORMALS: oropharynx normal Neck/C-Spine: COMMON NORMALS: no JVD Resp: COMMON NORMALS: normal respiratory effort and clear to auscultation bilaterally AUSCULTATION: clear to auscultation bilaterally Cardio: COMMON NORMALS: no JVD, regular rhythm, S1 normal heart sound, S2 normal heart sound and no murmurs RHYTHM: regular rhythm HEART SOUNDS: S1 normal and S2 normal GI: COMMON NORMALS: normal to inspection, nondistended, normoactive bowel sounds, soft to palpation and non-tender (To palpation) PALPATION: Yes soft Extremity: COMMON NORMALS: no joint enlargement and no pedal edema Neuro: COMMON NORMALS: moves all extremities Skin: COMMON NORMALS: no rashes or lesions noted GENERAL SKIN EXAM: no rashes or lesions noted Discharge Data Data Completed and Pending: Completed Studies During Hospitalization Category Date Time Status CT abdomen pelvis w con* [id number] Urge nt Cat Scan 12/11/19 17:22 Completed XR chest 1V mary ble [id number] Stat Exams 12/11/19 19:29 Completed Pending at discharge Category Date Time Status BMP [Basic [employer] Panel] AM [facility] Lab 12/19/19 04:00 Ordered Complete Blood Co unt w/Auto AM [facility] Lab 12/19/19 04:00 Ordered Prothrombin Time INR AM [facility] Lab 12/19/19 04:00 Ordered Labs from last 24 hours 12/18/19 12/18/19 12/18/19 05:20 05:20 05:20 WBC 4.6 RBC 3.98 L Hgb 11.9 Hct 38.1 MCV 95.7 MCH 29.9 MCHC 31.2 RDW 14.6 Plt Count 121 L MPV 10.0 Neut % (Auto) 75.2 Lymph % (Auto) 16.5 [place] % (Auto) 7.0 Eos % (Auto) 1.1 Baso % (Auto) 0.2 Neut # (Auto) 3.5 Lymph # (Auto) 0.8 [place] # (Auto) 0.3 Eos # (Auto) 0.1 Baso # (Auto) 0.0 Nucleated RBC % (a uto) 0 Nucleated RBCs # 0.0 PT 38.50 H INR 3.85 H Sodium 141 Potassium 3.1 L Chloride 99 Carbon Dioxide 33 H Anion Gap 12.1 BUN 11 Creatinine 0.7 Glucose 137 H Calculated Osmolal ity 290 Calcium 8.9 Vitals: Last Vital Signs Temp 99.0 F 12/18/19 11:35 Pulse 85 12/18/19 11:35 Resp 14 12/18/19 11:35 BP 123/68 12/18/19 11:35 Pulse Ox 96 12/18/19 11:35 Discharge Plan Discharge Patient Disposition: Xfer SNF Condition: Stable Prescriptions: New sennosides-docusate sodium 8.6-50 mg Tablet 2 tab PO BID Qty: 120 RF: 0 ciprofloxacin HCl 500 mg Tablet 500 mg PO BID Qty: 8 RF: 0 metronidazole 500 mg Tablet 500 mg PO TID Qty: 12 RF: 0 Continued polyethylene glycol 3350 [Miralax] 17 gram/dose powder 17 gm PO BID RF: 0 warfarin 5 mg tablet 5 mg PO ONCE PRN (Reason: Low inr) RF: 0 aspirin [Children's Aspirin] 81 mg tablet,chewable 81 mg PO ONCE RF: 0 carbidopa-levodopa 10-100 mg tablet,disintegrating 1 tab PO TID RF: 0 fluoxetine 10 mg capsule 10 mg PO DAILY RF: 0 furosemide 80 mg tablet 80 mg PO BID RF: 0 levothyroxine 50 mcg capsule 50 mcg PO DAILY RF: 0 metoprolol tartrate 25 mg tablet 12.5 mg PO Q12H RF: 0 omeprazole 20 mg capsule,delayed release(DR/EC) 20 mg PO .BEDTIME RF: 0 rosuvastatin [Crestor] 10 mg tablet 10 mg PO DAILY RF: 0 tolterodine 2 mg tablet 2 mg PO BID RF: 0 verapamil 180 mg capsule,ext rel. pellets 24 hr 180 mg PO QAM RF: 0 Klor-Con 10 10 mEq tablet extended release 20 meq PO BID RF: 0 isosorbide mononitrate 60 mg tablet extended release 24 hr 60 mg PO DAILY RF: 0 Changed warfarin 1 mg tablet 2 mg PO DAILY Qty: 0 RF: 0 Discharge Orders: Discharge Order (Routine); Ordered 12/18/19 Ordered By: Silas Fox Other Ambulatory Orders: Prothrombin Time INR (Routine) Timeframe: 3 Days Facility: [facility] - Location: Lab - Main Lab Ordered By: Silas Fox Referrals: SNF, provider [Other] - 4-7 days Discharge Diet: Cardiac Activity Restrictions/Additional Instructions: Target INR 2.5-3.5 Continue oxygen at 2 L/min by nasal cannula for COPD, goal saturation 92%. Add fiber to meals. Avoid constipation. 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
[2019-12-18] MEDS: warfarin 3 mg Tablet PO (13:16)
== END 2019-12-18 17:50 | disposition skilled nursing facility (03) | DRG 391 ==
LOC: ER 17:08 → MEDSURG 21:04
PROVIDERS: Internal Medicine; Admitting Provider Hospitalist; Emergency Provider Emergency Medicine; Family Provider Family Medicine; PCP Family Medicine; Visit Provider Internal Medicine
DX: K59.00 Constipation, unspecified (principal); I50.33 Acute on chronic diastolic (congestive) heart failure; I48.19 Other persistent atrial fibrillation; J44.1 Chronic obstructive pulmonary disease with (acute) exacerbation; I11.0 Hypertensive heart disease with heart failure; F32.9 Major depressive disorder, single episode, unspecified; K21.9 Gastro-esophageal reflux disease without esophagitis; E03.9 Hypothyroidism, unspecified; G47.33 Obstructive sleep apnea (adult) (pediatric); D50.9 Iron deficiency anemia, unspecified; G20 Parkinson's disease; Z90.49 Acquired absence of other specified parts of digestive tract; Z96.652 Presence of left artificial knee joint; Z79.01 Long term (current) use of anticoagulants; Z88.0 Allergy status to penicillin
CPT/HCPCS: 12345; 36415; 36600; 71045; 74177; 80048; 80051; 80053; 81001; 82810; 82977; 83605; 83690; 83735; 83880; 83986; 84443; 85007; 85025; 85027; 85610; 94640; 96372; 96375; 97110; 97162; 97166; 97530; 97535; 99283; J0743; J1644; J1650; J2270; J2405; J3480; J7050; Q9967

== ENCOUNTER 2019-12-20 06:20 | Outpatient (CLI) | payer MEDICARE, MEDICAID, SELFPAY ==
[2019-12-20 14:40] LABS: Basophils % 0.2 %; Eosinophils # 0.1 10^3/uL (0.0-0.8); Eosinophils % 2.4 %; Hemoglobin 11.4 g/dL (11.5-15.3); Lymphocytes # 1.1 10^3/uL (0.8-4.8); Lymphocytes % 25.8 %; Mean Corpuscular HGB Conc 31.7 g/dL (30.0-36.0); Mean Corpuscular Hemoglobin 30.3 pg (28.0-34.0); Mean Corpuscular Volume 95.7 fL (81-99); Mean Platelet Volume 11.4 fL (7.4-10.4); Monocytes # 0.5 10^3/uL (0.2-0.9); Monocytes % 10.7 %; Neutrophils # 2.5 10^3/uL (1.8-7.7); Neutrophils % 60.7 %; Nucleated Red Blood Cells % 0 %; Platelet Count 125 10^3/cmm (130-400); Red Blood Count 3.76 10^6/uL (4.1-5.3); Red Cell Distribution Width 14.6 % (12.1-15.1); White Blood Count 4.2 10^3/uL (4.0-10.0)
[2019-12-20 15:15] LABS: Ferritin 188 ng/mL (15-150); Iron 49 ug/dL (37-145); Percent Saturation 30.8 % (20-50); Total Iron Binding Capacity 159 mcg/dl; Unsaturated Iron Binding 110 ug/dL (112-347)
== END 2019-12-20 06:21 | disposition home or self-care (01) ==
LOC: ONCMED 16:22
PROVIDERS: Family Provider Family Medicine; PCP Family Medicine; Visit Provider Internal Medicine Hematology & Oncology
DX: D50.9 Iron deficiency anemia, unspecified (principal)
CPT/HCPCS: 82728; 83540; 83550; 85025

== ENCOUNTER 2019-12-25 08:55 | Outpatient (CLI) | payer MEDICARE, MEDICAID, SELFPAY ==
--- NOTE | 2019-12-25 09:48 | ONC FU_ITS ---
Dr. Bullock follow up note Patient: Iris Garcia Unit #: [id number]: 1940 Dicatated By: Lakia Bullock M.D.Date of Visit:Dec 25, 2019 Onc Med Follow-up/Prog Note History of Present Illness: Mrs Iris Garcia, 79 -year-old female with a history of anemia, initially, about 6-7 years ago , she had an episode of generalized weakness and fatigue, for that she went to Hospital in [facility]. At that time she was told about anemia and she was given 2 units of packed RBCs she felt like a new person. No iron supplements were given and she did very well until March this year when again she started feeling weak and tired and came to [facility] she was given blood transfusion again for anemia not sure one or 2 units were given. Again felt better , till first week of May 2017, when she started feeling weak and tired again and came back to [facility] found to be anemic was given 4 units of packed RBCs and 2 units of plasma for elevated PT/INR she is on Coumadin for A. fib and [facility]'s mitral valve again felt better hemoglobin improved from 6.9 on 05/29/2017 gone up to 9.7 on 05/31/2017 with MCV 76.4 and normal white blood count and platelets. And again not on any iron or B12 supplements. She denies any melena or hematochezia , no jaundice or hematuria, no evidence of gross bleeding she had EGD and colonoscopy done on 03/14/[address] Zechariah Prabhakar and it shows normal EGD except Schatzki ring noted along with small hiatal hernia. And colonoscopy shows internal hemorrhoids and 5 mm pedunculated polyp was removed from cecum Interim history, since her last visit on 11/08/2018 when her hemoglobin was 12.8 hematocrit 39.2, patient was admitted to hospital on 02/10/2019 with hemoglobin 6.9 g and hematocrit 23.3 g and iron studies shows ferritin 21, TIBC 331, iron saturation 5.1, iron level XVIII, haptoglobin less than 10, B12 416 reticulocyte count 2.6, patient was given 2 units of packed RBC with that her hemoglobin improved to 9.7 and hematocrit 30 with normal white blood count and platelets. Patient was admitted to hospital again on 04/08/2019 at that time hemoglobin was 7.4 hematocrit 23.6, 2 units of packed RBC were ordered but patient developed reaction after first unit of packed RBC, become hypotensive, so second unit of packed RBC was not given. Patient is not on oral iron supplement, because of history of intolerance. On her follow-up visit from 05/06/2019, she was found to be anemic with a hemoglobin of 8.4. Her iron saturation at that time was 7.7% and her ferritin was 32. Her iron was 29. She was given 2 doses of Injectafer one on 05/07/2019 and the second on 05/15/2019. She reports that she did have endoscopy camera placed in on 8107/18 . It is now 11.6 today and her iron saturation is now 16.4% with ferritin been at 109 and iron level is now 38. Weekly Injectafer ???2 was repeated in August 2019 Her daughter states that she does seem to be feeling some better as well.She underwent capsule endoscopy on 06/12/2019 and .As per patient her capsule camera got stuck in her small bowel so capsule endoscopy was not completed.But note from correctional supply supervisor Dr. Zacarias Lackey at [facility] , mentioned that capsule did not travel fast enough Through small bowel in designated 8 hours so it was an incomplete study, no active bleeder was seen but some patchy erythema was noted. Came for follow-up, denies any specific complaint except lower extremity weakness, has history of knee replacement that didn't go well and now with pain in feet but undergoing physical therapy in half-way. Denies any melena or hematochezia denies any nausea vomiting done in muscle hematemesis denies any jaundice denies any shortness of breath palpitation at rest or on exertion. Medications: Acetaminophen 1 - 2 Tablet (of 325 mg) Oral daily PRN, Aspirin 1 Tablet (of 81 mg) Tablet, enteric coated Oral daily, Carbidopa-Levodopa 1 Tablet (of 10-100 mg) Tablet Dispersable Oral t.i.d., Coumadin 1 Tablet (of 3 mg) Oral daily, Coumadin (2 mg) Tablet Oral Take as Directed, FLUoxetine HCl 1 Tablet (of 10 mg) Capsule Oral daily, Furosemide 2 Tablet (of 40 mg) Oral b.i.d., Isosorbide Mononitrate ER 1 (60 mg) Tablet SR 24 HR Oral daily, Levothroid 1 (50 mcg) Tablet Oral daily, Metoprolol Tartrate 0.5 mg (of 25 mg) Tablet Oral b.i.d., MiraLax 1 Pack Oral daily, Nitroglycerin 1 (0.4 mg) Tablet, sublingual Sublingual PRN, Omeprazole 1 Tablet (of 20 mg) Tablet, enteric coated Oral daily, Potassium Chloride ER 2 Tablet (of 10 meq) Tablet, controlled release Oral b.i.d., Rosuvastatin Calcium 1 (10 mg) Tablet Oral daily, Tolterodine Tartrate 1 (2 mg) Tablet Oral b.i.d., Verapamil HCl ER 1 Tablet (of 180 mg) Tablet, controlled release Oral daily Allergies: Penicillins Review of Systems: Constitutional - Appetite is fair. No fever, chills, hot flashes, or night sweats. Energy level continues to be poor, ENMT - No sinus congestion/drainage. No mouth sores. No sore throat or difficulty swallowing.Patient states she gets dry mouth, Hematologic/Lymphatic - No abnormal bruising or bleeding, Respiratory - Shortness of breath with exertion. No cough. No pleuritic pain or hemoptysis, Cardiovascular - No angina pain. No palpitations, Gastrointestinal - No nausea or vomiting. No heartburn or acid reflux. No diarrhea, frequent constipation. No blood in the stool or black stools, Genitourinary (F) - No dysuria or hematuria. No urinary frequency. No urgency, patient does have incontinence, Musculoskeletal - Chronic arthritic joint pain, Integumentary - Denies alopecia, blistering, bruising, dry skin, facial burning, nail changes, photosensitivity, pruritus, rash and urticaria, Neurologic - Occasional headache without dizziness. Patient reports numbness/paresthesias in fingertips and toes.No other focal neurologic symptoms, Psychiatric - No anxiety or depression. No insomnia. Vital Signs: Performed on Dec 25, 2019 09:12 Height - 60.00 in Weight - 141.3 lbs (LOW) BSA - 1.61 sq.m BMI - 27.60 Temperature - 98.0 F (LOW) Pulse - 75 /min Respiration - 22 /min BP - 108/46 mm(hg) O2 Sat - 100 % Pain - 7 Performance Status: 2 - Ambulatory/capable of all self-care, unable to perform any work activities. Up and about more than 50% of waking hours. (ECOG) Physical Examination: ENMT - No oral exudates, ulcers, masses, thrush or mucositis. Oropharynx clear. Tongue normal, Respiratory - Lungs are clear to auscultation without rhonchi or wheezing, Cardiovascular - Regular rate and rhythm of heart, Abdomen - Non-tender, non-distended, Good bowel sounds. No guarding or rebound tenderness. No pulsatile masses, Extremities - No visible deformities, no cyanosis, clubbing or edema. Pulses 4+ and equal bilaterally. Lab/Imaging: Test performed on Oct 18, 2019 07:40 Ferritin 180.0 ng/ml Iron 45 ug/dL % Iron Saturation 21.5 % UIBC 164 ug/dL WBC 4.6 10 3/uL RBC 3.96 10 6/uL HGB 12.3 g/dL HCT 39.7 % MCV 100.3 fl MCH 31.1 pg MCHC 31.0 g/dl RDW 16.5 % Platelet Count 121 10 3/cmm MPV 10.6 fl Neutrophils 3.0 10 3/uL Lymphocytes 1.2 10 3/uL Monocytes 0.4 10 3/uL Eosinophils 0.1 10 3/uL Basophils 0.0 10 3/uL Neutrophil % 65.0 % Lymphocyte % 25.1 % Monocyte % 7.8 % Eosinophil % 1.3 % Basophils % 0.6 % Test performed on Jul 18, 2019 11:54 Sodium 154 mmol/L Potassium 4.1 mmol/L Chloride 110 mmol/L CO2 33 mmol/L Anion Gap 15.1 BUN 17 mg/dL Creatinine 0.9 mg/dL Cr Clearance (Est) 55.4600 mL/min Glucose 99 mg/dl Calcium 8.7 mg/dL Protein, Total 6.9 g/dL Albumin 3.9 g/dL Globulin 3.0 gm/dL Bilirubin, Total 1.1 mg/dL ALT (SGPT) 10 U/L AST (SGOT) 16 U/L Alkaline Phosphatase 137 U/L Impression: 1 . Microcytic hypochromic anemia etiology multifactorial including iron deficiency due to chronic blood loss or malabsorption or both, underlying myelodysplasia cannot be ruled out 2. On chronic anticoagulation with Coumadin for A. fib and [facility]'s mitral valve 3. Internal hemorrhoids 4. on 03/14/2017 EGD showed Schatzki ring noted along with a small hiatal hernia and colonoscopy showed internal hemorrhoids with 5 mm pedunculated polyp removed with a snare from cecum Status post Injectafer 750 mg weekly ???2 on July 12 and 07/19/2017 and CBC on 08/02/2017 showed hemoglobin 11.9 compared to 10.3 on 07/05/2017 ferritin 350 on 08/02/2017 compared to 56.8 on 06/13/2017 And during follow-up on 05/07/2018 her hemoglobin was 12.4 hematocrit 37.3 and on 11/08/2018 her hemoglobin was 12.8 hematocrit 39.2. Remote history of hematuria status post cystoscopy many years ago it was unremarkable. Clinically, patient had been doing reasonably well with [id number] symptoms due to progressive iron deficiency anemia. due to probably chronic blood loss, considering her age underlying myelodysplasia cannot be ruled out. In the past, she had responded very well to Injectafer infusion, last time was given in June 2017, since then never required blood transfusion and maintain her hemoglobin in and around normal range till her last visit on 11/08/2018 at that time his CBC shows white blood count 4.7 hemoglobin 12.8 g hematocrit 39.2 platelets 150,000. Patient was supposed to come back in 3 months but lost follow-up. On her follow-up visit from 05/06/2019, she was found to be anemic with a hemoglobin of 8.4. Her iron saturation at that time was 7.7% and her ferritin was 32. Her iron was 29. She was given 2 doses of Injectafer one on 05/07/2019 and the second on 05/15/2019. She reports that she did have endoscopy camera placed on 06/17/19 As per patient her capsule camera got stuck in her small bowel and capsule endoscopy was not completed. But whatever part was examined did not show any bleeding. Plan: Discussed with patient regarding her labs white blood count 4.2, hemoglobin 11.4 crit 36 platelets 125,000 ferritin 188, iron 49, TIBC 110 Clinically, patient doing well. Within no new signs symptoms, follow-up lab shows stable hemoglobin and iron stores. And mild thrombocytopenia but stable, No evidence of bleeding. At this point we'll continue to monitor and she will return to clinic in 3 months with CBC and iron studies. Signed By: Lakia Bullock M.D. <<Signature on File>>
== END 2019-12-25 08:56 | disposition home or self-care (01) ==
LOC: ONCMED 08:56
PROVIDERS: Family Provider Family Medicine; PCP Family Medicine; Visit Provider Internal Medicine Hematology & Oncology
DX: D50.9 Iron deficiency anemia, unspecified (principal); K64.8 Other hemorrhoids; K44.9 Diaphragmatic hernia without obstruction or gangrene; D69.6 Thrombocytopenia, unspecified; Z79.82 Long term (current) use of aspirin; Z79.01 Long term (current) use of anticoagulants; Z79.899 Other long term (current) drug therapy; Z95.2 Presence of prosthetic heart valve
CPT/HCPCS: G0463

== ENCOUNTER 2020-02-24 18:44 | Outpatient (CLI) | payer MEDICARE, MEDICAID, SELFPAY | END 2020-02-24 18:45 | disposition home or self-care (01) | LOC: LAB 18:48 | PROVIDERS: Family Provider Family Medicine; PCP Family Medicine; Visit Provider Internal Medicine Medical Oncology | DX: D50.9 Iron deficiency anemia, unspecified (principal) | CPT/HCPCS: 85025 ==

== ENCOUNTER 2020-02-25 10:30 | Observation (INO) | payer MEDICARE, MEDICAID, SELFPAY ==
[2020-02-25] VITALS (26 sets, daily range): BP systolic 96–136; BP diastolic 31–72; PULSE 60–109; RESP 14–20; TEMP 36.6–37.2; O2SAT 85–100; BMI 27.3
--- NOTE | 2020-02-25 10:56 | XR_ITS ---
WS: [id number] PORTABLE CHEST HISTORY: sob COMPARISON: 12/11/2019 Prior CABG. Cardiac valve replacement prosthesis. Chronic interstitial thickening and scattered granulomata. No pneumonia. Vascularity is mildly promin ent which is chronic. No pleural effusion or pneumothorax. Cardiac size: Mildly enlarged cardiac silhouette. Mediastinum/Aorta: Mild atherosclerosis aorta. No osseous abnormality seen. XR/XR chest 1V portable [id number] IMPRESSION: Cardiomegaly and chronic interstitial lung disease. No pneumonia.
--- NOTE | 2020-02-25 10:57 | ECG_ITS ---
Measurements Intervals [place] Rate: 62 P: [place]: 0 QRS: 62 QRSD: 120 T: 79 QT: 451 QTc: 459 Atrial fib MODERATE INTRAVENTRICULAR CONDUCTION DELAY [110+ ms QRS DURATION] MODERATE ST DEPRESSION [0.05+ mV ST DEPRESSION] Compared to ECG 04/08/2019 17:57:12 there is no sig change Electronically Signed On 02-25-2020 18:11:25 CDT by Surinder Mays M.D. [id number]
--- NOTE | 2020-02-25 11:02 | ED_ITS ---
HPI - General Adult General: Chief complaint: General Medical Stated complaint: LOW IRON COUNT Time Seen by Provider: 02/25/20 10:55 Source: patient Mode of arrival: ambulatory Limitations: no limitations History of Present Illness: HPI narrative: 79-year-old female states she has had chronic anemia and they are unsure what is causing it. She states she has been feeling weak over the last 8 to 9 days and had her blood checked and states that nurse told her she needed,. Have it rechecked as they are concerned she may be anemic. She had mild shortness of breath as well. She denies any blood in her stools. Denies any worsening or improving factors. Severity: mild Relieving factors: none Exacerbating factors: none Associated symptoms: Deny chest pain, dyspnea, nausea, rash or vomiting Review of Systems Const: Denies: fever, chills, body aches or change in appetite Eyes: Denies: blurry vision or eye discomfort ENMT: Denies: throat pain or dental pain Card: Denies: chest pain Resp: Denies: shortness of breath GI: Denies: abdominal pain, nausea, vomiting or diarrhea : Denies: painful urination Musc: Denies: neck pain or back pain Skin/Breast: Denies: rash Neuro: Reports: weakness in extremities Psych: Denies: depression Jesus Alberto/Lymph: Denies: easy bruising All/Imm: Denies: hives PFSH ED PFSH: Medical History Afib COPD (chronic obstructive pulmonary disease) Former smoker, occasional use of breathing treatments Depression On fluoxetine with good control Diastolic CHF GERD (gastroesophageal reflux disease) PPI HTN (hypertension) Hypothyroidism Iron deficiency anemia Has required transfusion in past, last egd and colonoscopy ~2017 with diverticulosis and internal hemorrhoids, no clear source of bleeding Parkinson disease Sinimet Schatzki's ring Surgical History History of bilateral tubal ligation History of cholecystectomy History of total knee arthroplasty Left Mitral valve replaced Mechanical, on coumadin Family History Mother CAD (coronary artery disease) Diabetes Other Hypertension Social History Smoking and tobacco status: former smoker Physical Exam Const: COMMON NORMALS: no apparent distress, oriented x3 and healthy appearing HENMT: COMMON NORMALS: normocephalic and head/scalp atraumatic HEAD & SCALP: normocephalic and atraumatic Eye: COMMON NORMALS: PERRL and EOMs intact bilaterally PUPIL: Yes PERRL Neck/C-Spine: COMMON NORMALS: full ROM and supple Chest: COMMONS NORMALS: inspection of chest normal and palpation of chest normal Resp: COMMON NORMALS: normal respiratory effort, no retractions, no use of accessory muscles and clear to auscultation bilaterally AUSCULTATION: clear to auscultation bilaterally Cardio: COMMON NORMALS: regular rate, regular rhythm and no murmurs RATE: regular rate RHYTHM: regular rhythm GI: COMMON NORMALS: normal to inspection, nondistended, normoactive bowel sounds, soft to palpation, non-tender and no masses PALPATION: Yes soft Extremity: COMMON NORMALS: normal to inspection and full ROM Neuro: COMMON NORMALS: oriented x3, moves all extremities and no focal motor deficits Psych: COMMON NORMALS: mental status grossly normal, thought process normal and cooperative THOUGHT PROCESS: normal thought process Skin: COMMON NORMALS: no rashes or lesions noted and no wounds GENERAL SKIN EXAM: no rashes or lesions noted Course Vital Signs: Vital signs: Vital Signs Temperature 98.2 F 02/25/20 10:52 Pulse Rate 74 02/25/20 10:52 Respiratory Rate 18 02/25/20 10:52 Blood Pressure 96/34 02/25/20 10:52 Pulse Oximetry 100 02/25/20 11:00 MDM - General Adult MDM Narrative: Medical decision making narrative: Patient presents here with anemia that is been chronic in nature. Patient's hemoglobin here 6 6 likely causing her weakness. Will admit her for transfusion. Rectal exam showed brown stool but was Hemoccult positive. She could have a chronic mild GI bleed. Spoke to hospitalist who will admit. Lab Data: Labs: Lab Results 02/25/20 02/25/20 02/25/20 Range/Units 11:20 11:20 11:20 WBC 4.7 (4.0-10.0) 10^3/ uL RBC 2.85 L (4.1-5.3) 10^6/u L Hgb 6.6 L (11.5-15.3) g/dL Hct 24.7 L (37.0-47.0) % MCV 86.7 (81-99) fL MCH 23.2 L (28.0-34.0) pg MCHC 26.7 L (30.0-36.0) g/dL RDW 17.5 H (12.1-15.1) % Plt Count 161 (130-400) 10^3/c mm MPV 10.2 (7.4-10.4) fL Neut % (Auto) 72.6 % Lymph % (Auto) 17.7 % [place] % (Auto) 8.5 % Eos % (Auto) 0.4 % Baso % (Auto) 0.6 % Neut # (Auto) 3.4 (1.8-7.7) 10^3/u L Lymph # (Auto) 0.8 (0.8-4.8) 10^3/u L [place] # (Auto) 0.4 (0.2-0.9) 10^3/u L Eos # (Auto) 0.0 (0.0-0.8) 10^3/u L Baso # (Auto) 0.0 (0.0-0.1) 10^3/u L Nucleated RBC % (a uto) 0 % Nucleated RBCs # 0.0 /100WBC PT 26.90 H (10.5-13.3) SECO NDS INR 2.45 H (0.8-1.2) Sodium 144 (136-145) mmol/L Potassium 3.5 (3.5-5.1) mmol/L Chloride 98 (98-107) mmol/L Carbon Dioxide 36 H (22-29) mmol/L Anion Gap 13.5 (5-19) BUN 17 (8-23) mg/dL Creatinine 0.8 (0.5-0.9) mg/dL Glucose 141 H (65-115) mg/dL Calculated Osmolal ity 297 H (285-295) mOsm/k g Calcium 8.7 (8.5-10.5) mg/dL Total Bilirubin 0.7 (0.15-1.2) mg/dL AST 11 (0-32) U/L ALT < 5 (0-33) U/L Alkaline Phosphata se 127 H (35-105) IU/L NT-Pro-B Natriuret Pep 801 H (0-450) pg/mL Total Protein 6.9 (6.6-8.7) g/dL Albumin 3.9 (3.5-5.2) g/dL Globulin 3.0 (1.3-4.6) g/dL Blood Type Rho(D) Type Antibody Screen 02/25/20 Range/Units 11:40 WBC (4.0-10.0) 10^3/ uL RBC (4.1-5.3) 10^6/u L Hgb (11.5-15.3) g/dL Hct (37.0-47.0) % MCV (81-99) fL MCH (28.0-34.0) pg MCHC (30.0-36.0) g/dL RDW (12.1-15.1) % Plt Count (130-400) 10^3/c mm MPV (7.4-10.4) fL Neut % (Auto) % Lymph % (Auto) % [place] % (Auto) % Eos % (Auto) % Baso % (Auto) % Neut # (Auto) (1.8-7.7) 10^3/u L Lymph # (Auto) (0.8-4.8) 10^3/u L [place] # (Auto) (0.2-0.9) 10^3/u L Eos # (Auto) (0.0-0.8) 10^3/u L Baso # (Auto) (0.0-0.1) 10^3/u L Nucleated RBC % (a uto) % Nucleated RBCs # /100WBC PT (10.5-13.3) SECO NDS INR (0.8-1.2) Sodium (136-145) mmol/L Potassium (3.5-5.1) mmol/L Chloride (98-107) mmol/L Carbon Dioxide (22-29) mmol/L Anion Gap (5-19) BUN (8-23) mg/dL Creatinine (0.5-0.9) mg/dL Glucose (65-115) mg/dL Calculated Osmolal ity (285-295) mOsm/k g Calcium (8.5-10.5) mg/dL Total Bilirubin (0.15-1.2) mg/dL AST (0-32) U/L ALT (0-33) U/L Alkaline Phosphata se (35-105) IU/L NT-Pro-B Natriuret Pep (0-450) pg/mL Total Protein (6.6-8.7) g/dL Albumin (3.5-5.2) g/dL Globulin (1.3-4.6) g/dL Blood Type A Positive Rho(D) Type Positive Antibody Screen Negative Imaging Data^: CXR: Attestation: I personally reviewed and interpreted this imaging study as follows: Radiologist's impression: [address] [address] XRay Report Signed Patient: Iris Garcia Unit #: [id number] : 1940 Age/Sex: 79 / F ADM Date: 02/25/20 Loc: ER Room/Bed: Attending Dr: Ordering Provider/Ordering MD: James Adrian MD Date of Service: 02/25/20 Procedure(s): XR chest 1V portable [id number] Accession Number(s): [id number] Report Number: [id number] WS: [id number] PORTABLE CHEST HISTORY: sob COMPARISON: 12/11/2019 Prior CABG. Cardiac valve replacement prosthesis. Chronic interstitial thickening and scattered granulomata. No pneumonia. Vascularity is mildly prominent which is chronic. No pleural effusion or pneumothorax. Cardiac size: Mildly enlarged cardiac silhouette. Mediastinum/Aorta: Mild atherosclerosis aorta. No osseous abnormality seen. XR/XR chest 1V portable [id number] IMPRESSION: Cardiomegaly and chronic interstitial lung disease. No pneumonia. Discharge Plan Discharge Patient Disposition: Admitted As Inpatient Admit Provider: Francisco Marino Clinical Impression: Anemia Qualifiers: Anemia type: unspecified type Qualified Code(s): D64.9 - Anemia, unspecified Condition: Stable Referrals: Michael Hampton DO [Primary Care Provider] - Coding Level of Care Code ED Rug Inspector Helper for Chg Fwd Exam Comprehensive
[2020-02-25 11:29] LABS: Basophils % 0.6 %; Eosinophils % 0.4 %; Hematocrit 24.7 % (37.0-47.0); Hemoglobin 6.6 g/dL (11.5-15.3); Lymphocytes # 0.8 10^3/uL (0.8-4.8); Lymphocytes % 17.7 %; Mean Corpuscular HGB Conc 26.7 g/dL (30.0-36.0); Mean Corpuscular Hemoglobin 23.2 pg (28.0-34.0); Mean Corpuscular Volume 86.7 fL (81-99); Mean Platelet Volume 10.2 fL (7.4-10.4); Monocytes # 0.4 10^3/uL (0.2-0.9); Monocytes % 8.5 %; Neutrophils # 3.4 10^3/uL (1.8-7.7); Neutrophils % 72.6 %; Nucleated Red Blood Cells % 0 %; Platelet Count 161 10^3/cmm (130-400); Red Blood Count 2.85 10^6/uL (4.1-5.3); Red Cell Distribution Width 17.5 % (12.1-15.1); White Blood Count 4.7 10^3/uL (4.0-10.0)
[2020-02-25 11:42] LABS: INR 2.45 (0.8-1.2)
[2020-02-25 12:16] LABS: Alanine Aminotransferase < 5 U/L (0-33); Albumin Level 3.9 g/dL (3.5-5.2); Alkaline Phosphatase 127 IU/L (35-105); Anion Gap 13.5 (5-19); Aspartate Amino Transferase 11 U/L (0-32); Blood Urea Nitrogen 17 mg/dL (8-23); Calcium 8.7 mg/dL (8.5-10.5); Carbon Dioxide 36 mmol/L (22-29); Chloride 98 mmol/L (98-107); Glucose 141 mg/dL (65-115); NT Pro B Type Natriuretic Pept 801 pg/mL (0-450); Osmolality Calculated 297 mOsm/kg (285-295); Potassium 3.5 mmol/L (3.5-5.1); Sodium 144 mmol/L (136-145); Total Bilirubin 0.7 mg/dL (0.15-1.2); Total Protein 6.9 g/dL (6.6-8.7)
--- NOTE | 2020-02-25 12:40 | P.HP_ITS ---
Providers/Chief Complaint Admitting Physician: Francisco Marino MD Primary Care Provider: Michael Hampton DO Chief Complaint: ANEMIA History of Present Illness Iris Garcia is a 79 year old female with past medical history of microcytic hypochromic anemia because of iron deficiency, mitral valve stenosis post mechanical [place] mitral valve replacement, atrial fibrillation, on Coumadin chronically, recurrent/chronic anemia requiring frequent RBC transfusion, diastolic congestive heart failure, Parkinson's disease. She was sent in today by her primary care physician because her lab done at the office showed anemia. Patient is not aware what the numbers were at the PCPs office. She states she feels generally weak which is her baseline but has been feeling more weak re cently for last 2 to 3 weeks. She is also complaining of shortness of breath which is more than her baseline. At present she gets out of breath on talking or making small conversation. She denies of having any nausea, vomiting, dizziness, palpitations, fall, swelling in her legs, change in her medications recently, diarrhea, melena, hematemesis, hematochezia, bleeding from anywhere else. She states that she has been regular BM on and off. Usually she would have BM with stool softneres and baseline she is constipated with last BM earlier today. She follows up with Dr. Bullock for chronic anemia for which no aberrant reason has been found and is most likely because of small GI use along with possible myelodysplasia for which she is never been worked up because of her advanced age. She denies any use of recent pain medications, epigastric pain, change in her dose of warfarin. States her INR has usually remained in target recently. She had panendoscopy done 3 years ago and her colonoscopy only revealed a small cecal polyp which was removed and her EGD revealed a small hiatal hernia and a mild Schatzki's ring, but no evidence of any source of blood loss. Patient underwent capsule endoscopy at [facility] in May 2019 as per the record in the system the study was not complete as the capsule did not travel fast enough but did not show any active bleed. Only thing evident was patchy erythema. Blood work in the ER showed a hemoglobin of 6.6, normal white count, INR of 2.4 5, renal panel liver function panel with a proBNP of 801. Review of Systems Const: Denies: fever, chills, body aches, change in appetite, malaise, night sweats, diaphoresis, change in sleep pattern, daytime sleepiness or snoring Eyes: Denies: change in vision, blurry vision, photophobia, eye discomfort or eye discharge ENMT: Denies: throat pain, enlarged tonsils, hoarseness, mouth pain, oral sores/lesions, dry mouth, tinnitus, nasal congestion or post nasal drip Card: Denies: chest pain, palpitations, irregular heart rhythm, edema, swelling of feet/ankles, lightheadedness, syncope, pre-syncope, shortness of breath on exertion, shortness of breath when lying down, leg pain with exertion or bluish discoloration of hands/feet Resp: Denies: shortness of breath, productive cough, non-productive cough, wheezing, stridor, pain on inspiration, change in phlegm color, coughing up blood or chest congestion GI: Denies: abdominal pain, nausea, vomiting, vomiting blood, coffee grounds in vomit, difficulty swallowing, heartburn/indigestion, diarrhea, constipation, bloating, cramping, change in bowel habits, painful bowel movements, blood in stool or black tarry stool : Denies: flank pain, painful urination, urinary frequency, urinary urgency, urinary hesitancy, nighttime urination or blood in urine Musc: Denies: neck pain, back pain, extremity pain, joint pain, joint swelling, redness, joint stiffness or limited range of motion Neuro: Denies: headache, numbness in extremities, weakness in extremities, changes in sensation, lack of coordination, difficulty walking, frequent falls, dizziness, vertigo, confusion, slurred speech, difficulty communicating thoughts or seizure-like activity Psych: Denies: anxiety, depression, mood swings, panic attacks, hopelessness or irritability Endo: Denies: excessive urination, excessive thirst, tired all the time, cold intolerance, excessive sweating, flushing or heat intolerance Jesus Alberto/Lymph: Denies: easy bruising or easy bleeding All/Imm: Denies: tongue swelling, facial swelling or acute wheezing Medications/Allergies Home Medications Medication Instructions Recorded Confirmed Last Taken Type aspirin 81 mg chewable tablet 81 mg PO DAILY 11/06/19 02/25/20 02/25/20 History carbidopa 10 mg-levodopa 100 mg 1 tab PO BID 11/06/19 02/25/20 02/25/20 History disintegrating tablet fluoxetine 10 mg capsule 10 mg PO DAILY cap 11/06/19 02/25/20 02/25/20 History furosemide 80 mg tablet 80 mg PO BID 11/06/19 02/25/20 02/25/20 History levothyroxine 50 mcg capsule 50 mcg PO DAILY 11/06/19 02/25/20 02/25/20 History metoprolol tartrate 25 mg tablet 12.5 mg PO Q12H 11/06/19 02/25/20 02/25/20 History polyethylene glycol 3350 17 17 gm PO DAILY PRN 11/06/19 02/25/20 02/25/20 History gram/dose oral powder rosuvastatin 10 mg tablet 10 mg PO DAILY 11/06/19 02/25/20 02/24/20 History tolterodine 2 mg tablet 2 mg PO BID 11/06/19 02/25/20 02/25/20 History verapamil 180 mg 24 hr 180 mg PO QAM 11/06/19 02/25/20 02/25/20 History capsule,extended release isosorbide mononitrate 60 mg PO DAILY 12/12/19 02/25/20 02/25/20 History potassium chloride [Klor-Con 10] 20 meq PO BID 12/12/19 02/25/20 02/25/20 History metronidazole 500 mg PO TID #12 tab 12/18/19 02/25/20 02/25/20 Rx sennosides-docusate sodium 2 tab PO BID #120 tab 12/18/19 02/25/20 02/25/20 Rx warfarin See Rx Instructions .ROUTE .COMPLEX 02/25/20 02/25/20 02/24/20 History Allergies Allergy/AdvReac Type Severity Reaction Status Date / Time penicillin G Allergy UNK Verified 12/11/19 17:02 PFSH Acute PFSH: Medical History Afib COPD (chronic obstructive pulmonary disease) Former smoker, occasional use of breathing treatments Depression On fluoxetine with good control Diastolic CHF GERD (gastroesophageal reflux disease) PPI HTN (hypertension) Hypothyroidism Iron deficiency anemia Has required transfusion in past, last egd and colonoscopy ~2017 with diverticulosis and internal hemorrhoids, no clear source of bleeding Parkinson disease Sinimet Schatzki's ring Surgical History History of bilateral tubal ligation History of cholecystectomy History of total knee arthroplasty Left Mitral valve replaced Mechanical, on coumadin Family History Mother CAD (coronary artery disease) Diabetes Other Hypertension Social History Smoking and tobacco status: former smoker Vitals/I&O/Wt Last Vital Signs Temp 98.2 F 02/25/20 10:52 Pulse 74 02/25/20 10:52 Resp 18 02/25/20 10:52 BP 96/34 02/25/20 10:52 Pulse Ox 100 02/25/20 11:00 Weight last 48 hrs Weight 65.771 kg Physical Exam Narrative: EXAM NARRATIVE: General: No acute distress, AO x3, looking tired, pallor present, no icterus HEENT: PERRLA, pupils bilaterally equal and reactive Chest: Normal vesicular breath sounds, no added sounds, equal good air entry bilaterally CVS: S1-S2 regular, mitral click present, no tachycardia, no gallops, no rubs Abdomen: Soft, nontender, no organomegaly, bowel sounds present Neuro: No focal deficits, no facial deformity, AO x3, power 5/5 in all limbs Data : 02/25/20 11:20 02/25/20 11:20 A&P Assessment and plan (1) Anemia: Status: Acute Qualifiers: Anemia type: unspecified type Qualified Code(s): D64.9 - Anemia, unsp ecified (2) Mitral valve replaced: Status: Acute (3) Afib: Status: Acute Qualifiers: Atrial fibrillation type: longstanding persistent Qualified Code(s): I48.11 - Longstanding persistent atrial fibrillation (4) Chronic anticoagulation: Status: Acute (5) Hypothyroidism: Status: Acute (6) Diastolic CHF: Status: Acute Qualifiers: Heart failure chronicity: acute on chronic Qualified Code(s): I50.33 - Acute on chronic diastolic (congestive) heart failure (7) Parkinson disease: Status: Acute (8) Schatzki's ring: Status: Acute (9) SONYA (obstructive sleep apnea): Status: Acute Additional A&P Information Acute anemia: Patient has history of chronic anemia under evaluation. She is followed up with Dr. Bullock in the past. She has got Injectafer in the past as well as per her last was around 5 months ago. She is undergone multiple colonoscopies, endoscopies and a capsule endoscopy without any source of bleeding found with most recent capsule endoscopy done in May 2019. Patient states she does not want to go for any endoscopy or colonoscopy at present as her bowel movements have remained at its baseline. CBC done today consistent with severe anemia with microcytic picture We will give 2 units of PRBC milligrams of IV Lasix in between. Check vitamin B12 and folic acid levels. We will check reticulocyte count. Hold aspirin but will continue the Coumadin because of history of mechanical mitral valve placement. Patient is hemodynamically stable so will not do reversal of therapeutic INR. Patient has history of Schatzki's ring in the endoscopy 3 years ago. We will start patient on Protonix 40 mg IV twice daily for now. Afib: Rate controlled Continue with home dose of metoprolol. Given lower blood pressures will hold off on verapamil for now. INR therapeutic. Goal INR around 2.5-3. We will continue warfarin at home dose for now even though patient is having low hemoglobin as patient is not having any melena or hematochezia at present. History of MVR: MitraClip present. Continue with anticoagulation as above. We will give 40 mg of IV Lasix between 2 units of transfusion. We will start on home dose of Lasix from tomorrow morning. History of diastolic heart failure: proBNP at baseline. 801 today. Lasix as stated above. We will hold off on Imdur for now given low blood pressures. Monitor dialy weights and Strict I/Os COPD: No exacerbation at present. DuoNeb's every 6 hours. Oxygen supplementation keeping saturation of 90%. We will change medications as per clinical course. Continue chronic home medications like levothyroxine, statins, combination of carbidopa levodopa. Check TSH levels. Full code. Cardiac low-salt diet. Warfarin will help with DVT prophylaxis. Plan discussed with her POA, Daughter Meghan and she agrees with the same. All questions were answered. Attestations Medical Necessity Statement*: Under observation for acute anemia while being on anticoagulation. Less than 2 midnights Time Spent in Patient Care: Greater than 35 minutes (>than 50% of time spent in counselling and/or direct pt care on unit) . Coding Level of Care Code Acute Sub Prior for Chg Fwd Diagnoses Anemia D64.9 Anemia type: unspecified type Mitral valve replaced Z95.2 Afib I48.11 Atrial fibrillation type: longstanding persistent Chronic anticoagulation Z79.01 Hypothyroidism E03.9 Diastolic CHF I50.33 Heart failure chronicity: acute on chronic Parkinson disease G20 Schatzki's ring K22.2 SONYA (obstructive sleep apnea) G47.33
[2020-02-25 13:42] LABS: Lactic Sepsis W/Reflex 0.6 mmol/L (0.5-2.2)
[2020-02-25 13:43] LABS: Iron 18 ug/dL (37-145); Percent Saturation 6.7 % (20-50); Total Iron Binding Capacity 266 mcg/dl; Unsaturated Iron Binding 248 ug/dL (112-347)
[2020-02-25 14:52] LABS: Lactate Dehydrogenase 217 U/L (135-214); Vitamin B12 289 pg/mL (232-1245)
[2020-02-25 15:07] LABS: Fibrinogen 470 mg/dL (184-529)
[2020-02-25] MEDS: ipratropium-albuterol 3 mL Neb INHALATION ×2 (16:36→21:04)
[2020-02-25 17:11] LABS: Thyroid Stimulating Hormone 1.25 uIU/mL (0.27-4.20)
[2020-02-25 17:19] LABS: Folate Level 7.2 ng/mL (4.8-37.3)
[2020-02-25] MEDS: metoprolol tartrate 25 mg Tablet 12.5 MG PO (18:30)
[2020-02-25] MEDS: tolterodine 2 mg Tablet PO (18:30)
[2020-02-25] MEDS: pantoprazole 40 mg SDV 80 MG IVP (18:31)
[2020-02-25] MEDS: FUROsemide 10 mg/mL SDV 4mL 40 MG IVP (18:35)
[2020-02-26] VITALS (7 sets, daily range): BP systolic 117–131; BP diastolic 55–69; PULSE 57–106; RESP 14–20; TEMP 36.4–36.8; O2SAT 78–99
[2020-02-26] MEDS: ipratropium-albuterol 3 mL Neb INHALATION ×2 (04:00→09:52)
[2020-02-26 05:18] LABS: Basophils % 0.2 %; Eosinophils # 0.1 10^3/uL (0.0-0.8); Eosinophils % 2.2 %; Hemoglobin 8.8 g/dL (11.5-15.3); Lymphocytes # 1.2 10^3/uL (0.8-4.8); Lymphocytes % 25.6 %; Mean Corpuscular HGB Conc 29.3 g/dL (30.0-36.0); Mean Corpuscular Hemoglobin 25.8 pg (28.0-34.0); Monocytes # 0.5 10^3/uL (0.2-0.9); Monocytes % 10.1 %; Neutrophils # 2.9 10^3/uL (1.8-7.7); Neutrophils % 61.5 %; Nucleated Red Blood Cells % 0 %; Platelet Count 140 10^3/cmm (130-400); Red Blood Count 3.41 10^6/uL (4.1-5.3); Red Cell Distribution Width 16.6 % (12.1-15.1); White Blood Count 4.6 10^3/uL (4.0-10.0)
[2020-02-26] MEDS: metoprolol tartrate 25 mg Tablet 12.5 MG PO (05:58)
[2020-02-26] MEDS: pantoprazole 40 mg SDV IVP (05:59)
[2020-02-26] MEDS: fluoxetine 10 mg Capsule PO (08:18)
[2020-02-26] MEDS: atorvastatin 40 mg Tablet PO (08:18)
[2020-02-26] MEDS: tolterodine 2 mg Tablet PO (08:18)
[2020-02-26] MEDS: levothyroxine 50 mcg Tablet PO (08:18)
--- NOTE | 2020-02-26 10:01 | PC.CHAP ---
Pastoral Care Encounter/Spiritual Assessment Type of Contact [] Declined pattern grader supervisor visit [] Patient/Family/Request visit [] Outpatient visit [] Follow-up visit [] Physician referral [] Code/Alert [x] Routine visit [] Staff referral [] Actively dying [x] Patient sleeping [] Family support [] [] Out of room [] Palliative care [] [] Receiving care in room [] Pre-surgical visit [] Trauma [] Long length of stay [] ICU visit [] Other: Relational/Emotional Strength [] Patient feels connected with others/family/visitors/staff [] Distress [] Loneliness/isolation [] Abandonment Spirituality of Patient [] Person of Vivian [] Attends Jainism of their Vivian [] Believes in Prayer [] Reads Bible or Scientologist materials [] There are Spiritual issues to be addressed Supervisor Harvesting Interventions [x] Prayer [] Active listening [] Non-anxious presence [] Spiritual/emotional support [] Crisis/trauma care [] Spiritual counseling [] Bereavement support [] Provided bereavement packet [] Provided Bible/devotional materials [] Provided toy/stuffed animal, coloring book to patient or family member [] Provided Communion [] Anointing/[place] [] Salvation [x] Completed spiritual assessment [] Other: Impact on Illness or Injury [] Angry [] Fearful [] Anxious [] Often cries [] Exhaustion [] Unable to work [] Unable to attend adventist [] Unable to walk/stand [] Unable to read [] Unable to drive [] Unable to eat/drink [] Unable to sleep [] Unable to be with family [] Patient intubated [] Other: Summary Patient resting. Time spent with patient
[2020-02-26] MEDS: verapamil ER 180 mg Tablet PO (11:22)
[2020-02-26] MEDS: FUROsemide 40 mg Tablet 80 MG PO (11:22)
--- NOTE | 2020-02-26 12:05 | PM.DCS ---
Discharge Providers Date of Admission: 02/25/20 12:23 Date of Discharge: February 26, 2020 Attending Provider at Admission: Francisco Marino MD Attending Provider at Discharge: Francisco Marino MD Primary Care Provider: Michael Hampton DO Diagnoses at Discharge Discharge Diagnosis (1) Anemia: Status: Acute Qualifiers: Anemia type: unspecified type Qualified Code(s): D64.9 - Anemia, unspecified (2) Mitral valve replaced: Status: Acute Problem details: Mechanical, on coumadin (3) Afib: Status: Acute Qualifiers: Atrial fibrillation type: longstanding persistent Qualified Code(s): I48.11 - Longstanding persistent atrial fibrillation (4) Chronic anticoagulation: Status: Acute Problem details: Due to mechanical mitral valve; coumadin (5) Hypothyroidism: Status: Acute (6) Diastolic CHF: Status: Acute Qualifiers: Heart failure chronicity: acute on chronic Qualified Code(s): I50.33 - Acute on chronic diastolic (congestive) heart failure (7) Parkinson disease: Status: Acute Problem details: Sinimet (8) Schatzki's ring: Status: Acute (9) SONYA (obstructive sleep apnea): Status: Acute Problem details: Has cpap, does not use do to poor fitting mask. Wheres oxygen at night, 2L Reason for Visit Reason for Visit: Reason For Visit: ANEMIA Hospital Course Discharge Summary: Iris Garcia is a 79 year old female with past medical history of microcytic hypochromic anemia because of iron deficiency, mitral valve stenosis post mechanical [facility] mitral valve replacement, atrial fibrillation, on Coumadin chronically, recurrent/chronic anemia requiring frequent RBC transfusion, diastolic congestive heart failure, Parkinson's disease. She was sent in today by her primary care physician because her lab done at the office showed anemia. Patient is not aware what the numbers were at the PCPs office. She states she feels generally weak which is her baseline but has been feeling more weak recently for last 2 to 3 weeks. She is also complaining of shortness of breath which is more than her baseline. At present she gets out of breath on talking or making small conversation. She denies of having any nausea, vomiting, dizziness, palpitations, fall, swelling in her legs, change in her medications recently, diarrhea, melena, hematemesis, hematochezia, bleeding from anywhere else. She states that she has been regular BM on and off. Usually she would have BM with stool softneres and baseline she is constipated with last BM earlier today. She follows up with Dr. Bullock for chronic anemia for which no aberrant reason has been found and is most likely because of small GI use along with possible myelodysplasia for which she is never been worked up because of her advanced age. She denies any use of recent pain medications, epigastric pain, change in her dose of warfarin. States her INR has usually remained in target recently. She had panendoscopy done 3 years ago and her colonoscopy only revealed a small cecal polyp which was removed and her EGD revealed a small hiatal hernia and a mild Schatzki's ring, but no evidence of any source of blood loss. Patient underwent capsule endoscopy at [facility] in May 2019 as per the record in the system the study was not complete as the capsule did not travel fast enough but did not show any active bleed. Only thing evident was patchy erythema. Blood work in the ER showed a hemoglobin of 6.6, normal white count, INR of 2.45, renal panel liver function panel with a proBNP of 801. Patient was given 2 units of blood transfusion which she tolerated unremarkably. Repeat hemoglobin was 8.8. Given recurrence of the symptoms with most recent capsule endoscopy in May 2019 which was negative for any active source of bleeding patient was given an option of possible endoscopy and colonoscopy. As patient was not having any active melena, hematochezia, hematemesis family and patient decided against any endoscopy and colonoscopy. Patient's iron studies are suggestive of severe iron deficiency anemia for which she got 2 doses of 200 mg of Venofer. Patient is asked to follow-up with Dr. Bullock as an outpatient for possible further iron repletion. Patient is been discharged in hemodynamically stable condition with advised to follow-up with consultants and a primary care physician. Physical Exam Narrative: EXAM NARRATIVE: General: No acute distress, AO x3, looking tired, pallor present, no icterus HEENT: PERRLA, pupils bilaterally equal and reactive Chest: Normal vesicular breath sounds, no added sounds, equal good air entry bilaterally CVS: S1-S2 regular, mitral click present, no tachycardia, no gallops, no rubs Abdomen: Soft, nontender, no organomegaly, bowel sounds present Neuro: No focal deficits, no facial deformity, AO x3, power 5/5 in all limbs Discharge Data Data Completed and Pending: Completed Studies During Hospitalization Category Date Time Status XR chest 1V mary ble [id number] Urgent Exams 02/25/20 10:56 Completed Labs from last 24 hours 02/26/20 02/25/20 02/25/20 05:11 13:03 13:03 WBC 4.6 RBC 3.41 L Hgb 8.8 L D Hct 30.0 L MCV 88.0 MCH 25.8 L D MCHC 29.3 L D RDW 16.6 H Plt Count 140 MPV 10.0 Neut % (Auto) 61.5 Lymph % (Auto) 25.6 Blanco % (Auto) 10.1 Eos % (Auto) 2.2 Baso % (Auto) 0.2 Reticulocyte % (Au to) Neut # (Auto) 2.9 Lymph # (Auto) 1.2 Blanco # (Auto) 0.5 Eos # (Auto) 0.1 Baso # (Auto) 0.0 Nucleated RBC % (a uto) 0 Nucleated RBCs # 0.0 Haptoglobin 10.0 L Fibrinogen 470 Sodium Potassium Chloride Carbon Dioxide Anion Gap BUN Creatinine Glucose Calculated Osmolal ity Lactic Acid Calcium Iron TIBC % Saturation Unsat Iron Binding Total Bilirubin AST ALT Alkaline Phosphata se Lactate Dehydrogen ase 217 H NT-Pro-B Natriuret Pep Total Protein Albumin Globulin Vitamin B12 289 Folate TSH Blood Type Rho(D) Type Antibody Screen Crossmatch 02/25/20 02/25/20 02/25/20 13:03 13:03 11:40 WBC RBC Hgb Hct MCV MCH MCHC RDW Plt Count MPV Neut % (Auto) Lymph % (Auto) Blanco % (Auto) Eos % (Auto) Baso % (Auto) Reticulocyte % (Au to) Neut # (Auto) Lymph # (Auto) Blanco # (Auto) Eos # (Auto) Baso # (Auto) Nucleated RBC % (a uto) Nucleated RBCs # Haptoglobin Fibrinogen Sodium Potassium Chloride Carbon Dioxide Anion Gap BUN Creatinine Glucose Calculated Osmolal ity Lactic Acid 0.6 Calcium Iron 18 L TIBC 266 % Saturation 6.7 L Unsat Iron Binding 248 Total Bilirubin AST ALT Alkaline Phosphata se Lactate Dehydrogen ase NT-Pro-B Natriuret Pep Total Protein Albumin Globulin Vitamin B12 Folate TSH Blood Type A Positive Rho(D) Type Positive Antibody Screen Negative Crossmatch See Detail 02/25/20 02/25/20 02/25/20 11:20 11:20 11:20 WBC RBC Hgb Hct MCV MCH MCHC RDW Plt Count MPV Neut % (Auto) Lymph % (Auto) Blanco % (Auto) Eos % (Auto) Baso % (Auto) Reticulocyte % (Au to) 1.7000 Neut # (Auto) Lymph # (Auto) Blanco # (Auto) Eos # (Auto) Baso # (Auto) Nucleated RBC % (a uto) Nucleated RBCs # Haptoglobin Fibrinogen Sodium Potassium Chloride Carbon Dioxide Anion Gap BUN Creatinine Glucose Calculated Osmolal ity Lactic Acid Calcium Iron TIBC % Saturation Unsat Iron Binding Total Bilirubin AST ALT Alkaline Phosphata se Lactate Dehydrogen ase NT-Pro-B Natriuret Pep Total Protein Albumin Globulin Vitamin B12 Folate 7.2 TSH 1.25 Blood Type Rho(D) Type Antibody Screen Crossmatch 02/25/20 11:20 WBC RBC Hgb Hct MCV MCH MCHC RDW Plt Count MPV Neut % (Auto) Lymph % (Auto) Blanco % (Auto) Eos % (Auto) Baso % (Auto) Reticulocyte % (Au to) Neut # (Auto) Lymph # (Auto) Blanco # (Auto) Eos # (Auto) Baso # (Auto) Nucleated RBC % (a uto) Nucleated RBCs # Haptoglobin Fibrinogen Sodium 144 Potassium 3.5 Chloride 98 Carbon Dioxide 36 H Anion Gap 13.5 BUN 17 Creatinine 0.8 Glucose 141 H Calculated Osmolal ity 297 H Lactic Acid Calcium 8.7 Iron TIBC % Saturation Unsat Iron Binding Total Bilirubin 0.7 AST 11 ALT < 5 Alkaline Phosphata se 127 H Lactate Dehydrogen ase NT-Pro-B Natriuret Pep 801 H Total Protein 6.9 Albumin 3.9 Globulin 3.0 Vitamin B12 Folate TSH Blood Type Rho(D) Type Antibody Screen Crossmatch Vitals: Last Vital Signs Temp 98.2 F 02/26/20 11:25 Pulse 66 02/26/20 11:25 Resp 14 02/26/20 11:25 BP 117/55 02/26/20 11:25 Pulse Ox 97 02/26/20 11:25 Discharge Plan Discharge Patient Disposition: Home, Self-Care Condition: Stable Prescriptions: New Dexilant 30 mg capsule,biphase delayed releas 30 mg PO DAILY Qty: 30 RF: 0 ferrous gluconate 324 mg (37.5 mg iron) tablet 324 mg PO BID Qty: 60 RF: 0 Continued polyethylene glycol 3350 [Miralax] 17 gram/dose powder 17 gm PO DAILY PRN (Reason: Constipation) RF: 0 carbidopa-levodopa 10-100 mg tablet,disintegrating 1 tab PO BID RF: 0 fluoxetine 10 mg capsule 10 mg PO DAILY RF: 0 furosemide 80 mg tablet 80 mg PO BID RF: 0 levothyroxine 50 mcg capsule 50 mcg PO DAILY RF: 0 metoprolol tartrate 25 mg tablet 12.5 mg PO Q12H RF: 0 rosuvastatin [Crestor] 10 mg tablet 10 mg PO DAILY RF: 0 tolterodine 2 mg tablet 2 mg PO BID RF: 0 verapamil 180 mg capsule,ext rel. pellets 24 hr 180 mg PO QAM RF: 0 potassium chloride [Klor-Con 10] 10 mEq tablet extended release 20 meq PO BID RF: 0 isosorbide mononitrate 60 mg tablet extended release 24 hr 60 mg PO DAILY RF: 0 sennosides-docusate sodium 8.6-50 mg Tablet 2 tab PO BID Qty: 120 RF: 0 warfarin 1 mg tablet See Rx Instructions .ROUTE .COMPLEX RF: 0 Discontinued aspirin [Children's Aspirin] 81 mg tablet,chewable 81 mg PO DAILY RF: 0 metronidazole 500 mg Tablet 500 mg PO TID Qty: 12 RF: 0 Discharge Orders: Discharge Order (Routine); Ordered 02/26/20 Ordered By: Francisco Marino Referrals: Michael Hampton DO [Primary Care Provider] - 03/11/20 1:00 pm Lakia Bullock MD [Staff Physician] - 03/11/20 3:00 pm Discharge Diet: Cardiac Discharge Activity: Resume usual activity Patient Instructions: Anemia, Iron Supplements (By mouth), Dexlansoprazole (By mouth), Iron Rich Diet (GEN) Activity Restrictions/Additional Instructions: Aspirin has been stopped because of recurrent anemia. Please follow-up with Dr. Bullock within next 2 weeks for possible Injectafer. Discharge Attestations Time Spent in Discharge Care*: greater than 30 min Specific Discharge Activities: Specific discharge activities: educating patient, educating and/or supporting family/caregiver, discussing with behavioral health case manager/social workers/dc planners, documenting/other paperwork and evaluating patient/reviewing data Status at Discharge: Cognitive status at discharge: cognitively intact, Behavioral status at discharge: cooperative, Functional status at discharge: independent ambulation Overall status at discharge: patient is back to baseline Quality Metrics Clinical Quality Measures During this hospital stay, did patient experience: None Coding Level of Care Code Acute Chip Tester for Chg Fwd Diagnoses Anemia D64.9 Anemia type: unspecified type Mitral valve replaced Z95.2 Afib I48.11 Atrial fibrillation type: longstanding persistent Chronic anticoagulation Z79.01 Hypothyroidism E03.9 Diastolic CHF I50.33 Heart failure chronicity: acute on chronic Parkinson disease G20 Schatzki's ring K22.2 SONYA (obstructive sleep apnea) G47.33
== END 2020-02-26 13:31 | disposition home or self-care (01) ==
LOC: ER 12:58 → MEDSURG 12:59
PROVIDERS: Admitting Provider Student in an Organized Health Care Education/Training Program; Emergency Provider Emergency Medicine; Family Provider Family Medicine; PCP Family Medicine; Visit Provider Student in an Organized Health Care Education/Training Program
DX: D64.9 Anemia, unspecified (principal); Z95.2 Presence of prosthetic heart valve; I48.11 Longstanding persistent atrial fibrillation; Z79.01 Long term (current) use of anticoagulants; E03.9 Hypothyroidism, unspecified; I50.33 Acute on chronic diastolic (congestive) heart failure; G20 Parkinson's disease; K22.2 Esophageal obstruction; G47.33 Obstructive sleep apnea (adult) (pediatric); Z79.82 Long term (current) use of aspirin; J44.9 Chronic obstructive pulmonary disease, unspecified; K21.9 Gastro-esophageal reflux disease without esophagitis; Z82.49 Family history of ischemic heart disease and other diseases of the circulatory system; Z83.3 Family history of diabetes mellitus; Z87.891 Personal history of nicotine dependence
CPT/HCPCS: 12345; 36415; 36430; 71045; 80053; 82607; 82746; 83010; 83540; 83550; 83605; 83615; 83880; 84443; 85025; 85045; 85384; 85610; 86850; 86900; 86920; 93005; 94640; 94664; 96365; 96375; 99282; 99285; C9113; G0378; J1756; J1940; P9016

== ENCOUNTER 2020-02-28 21:37 | Observation (INO) | payer MEDICARE, MEDICAID, SELFPAY ==
[2020-02-28 21:40] VITALS: BP 126/46; PULSE 61; RESP 20; TEMP 36.7; O2SAT 99; BMI 34.2
--- NOTE | 2020-02-28 21:56 | XRR_ITS ---
PROCEDURE INFORMATION: Exam: XR Chest, 1 View Exam date and time: 02/28/2020 10:10 PM Age: 79 years old Clinical indication: Shortness of breath; Prior surgery; Patient HX: Cabg, valve; Additional info: SOB TECHNIQUE: Imaging protocol: XR of the chest Views: 1 view. COMPARISON: CR XR chest 1V portable [id number] 02/25/2020 11:09 AM FINDINGS: Lung volumes are somewhat low. Otherwise no focal pulmonary consolidation is demonstrated on this single frontal image. No significant obscuration of the lateral costophrenic angles is demonstrated. No significant vascular congestion is demonstrated. Visualized cardiac silhouette size appears enlarged, accentuated by low lung volumes. Pericardial effusion not excluded. There are calcifications in the thoracic aorta. Changes of median sternotomy and cardiac valve replacement. XR/XR chest 1V portable [id number] IMPRESSION: No definite acute pulmonary process is demonstrated. Visualized cardiac silhouette size appears enlarged, accentuated by low lung volumes. Pericardial effusion not excluded.
[2020-02-28 22:38] VITALS: BP 124/49; PULSE 60; RESP 18; O2SAT 97
[2020-02-28 22:45] LABS: Basophils % 0.7 %; Eosinophils # 0.1 10^3/uL (0.0-0.8); Hematocrit 30.5 % (37.0-47.0); Hemoglobin 8.5 g/dL (11.5-15.3); Lymphocytes # 0.7 10^3/uL (0.8-4.8); Lymphocytes % 15.3 %; Mean Corpuscular HGB Conc 27.9 g/dL (30.0-36.0); Mean Corpuscular Hemoglobin 25.1 pg (28.0-34.0); Mean Platelet Volume 10.6 fL (7.4-10.4); Monocytes # 0.5 10^3/uL (0.2-0.9); Monocytes % 11.4 %; Neutrophils # 3.1 10^3/uL (1.8-7.7); Neutrophils % 69.4 %; Nucleated Red Blood Cells % 0 %; Platelet Count 153 10^3/cmm (130-400); Red Blood Count 3.39 10^6/uL (4.1-5.3); Red Cell Distribution Width 17.9 % (12.1-15.1); White Blood Count 4.4 10^3/uL (4.0-10.0)
[2020-02-28 22:46] LABS: ABG PH Result 7.37 (7.35-7.45); Base Excess ABG 14.5 mmol/L (-2.0-2.0); Blood Gas Allen Test Pos; Blood Gas Sample Site Radial, right; Blood Gas Sample Type Arterial; Oxygen Device NC; PO2 ABG 65.3 mmHg (80.0-100.0)
[2020-02-28 22:54] LABS: ABG PCO2 73.3 mmHg (35-45)
[2020-02-28 23:13] LABS: Alanine Aminotransferase < 5 U/L (0-33); Albumin Level 3.6 g/dL (3.5-5.2); Alkaline Phosphatase 108 IU/L (35-105); Anion Gap 9.6 (5-19); Aspartate Amino Transferase 13 U/L (0-32); Blood Urea Nitrogen 9 mg/dL (8-23); Calcium 7.4 mg/dL (8.5-10.5); Chloride 98 mmol/L (98-107); Globulin 2.8 g/dL (1.3-4.6); Glucose 104 mg/dL (65-115); NT Pro B Type Natriuretic Pept 1197 pg/mL (0-450); Osmolality Calculated 296 mOsm/kg (285-295); Potassium 4.6 mmol/L (3.5-5.1); Sodium 145 mmol/L (136-145); Total Bilirubin 1.6 mg/dL (0.15-1.2); Total Protein 6.4 g/dL (6.6-8.7)
[2020-02-28 23:19] LABS: Carbon Dioxide 42 mmol/L (22-29)
--- NOTE | 2020-02-28 23:56 | PC.NURSE ---
Pt's daughter: Rosa Chris [phone]
[2020-02-29] VITALS (17 sets, daily range): BP systolic 104–132; BP diastolic 59–83; PULSE 59–82; RESP 10–23; TEMP 36.6–36.9; O2SAT 88–99
[2020-02-29 00:16] LABS: Add Urine Microscopic? NO; Bilirubin Urine Neg (NEGATIVE); Blood Urine Neg (Negative); Glucose Urine UA Norm (Normal); Ketones Urine Negative (Negative); Leukocyte Esterase Urine Negative (Negative); Nitrate Urine Negative (Negative); Protein Urine Neg (Negative); Specific Gravity, Urine 1.005 (1.005-1.030); Urine Appearance Clear (CLEAR); Urine Color Yellow (Yellow); Urobilinogen Urine Norm (Negative); pH Urine 7 (5-7)
--- NOTE | 2020-02-29 00:31 | P.HP_ITS ---
Providers/Chief Complaint Primary Care Provider: Michael Hampton DO Chief Complaint: sob/ weakness History of Present Illness Iris Garcia is a 79 year old female carries diagnosis of mechanical mitral valve chronic anticoagulation with Coumadin, microcytic hypochromic anemia due to iron deficiency, required multiple transfusions in the past, diastolic congestive heart failure, Parkinson's, chronic hypercarbic respiratory failure c cassius in with chief complaint of shortness of breath. Patient was recently discharged from the hospital on 02/16 2:09 units of RBC transfusion for her anemia in the past she has EGD revealed small hiatal hernia Schatzki ring no evidence of bleeding, she underwent capsule endoscopy at [facility] 06/17 which was negative. Patient is stating that after her discharge she did not take any of her medications at home until Monday morning. She started experiencing shortness of breath, orthopnea and PND at night, HER-2 liters of oxygen that she use at night was not helping her symptoms. She feels bloated but her legs are not swollen, her daily activities are limited, she is denying chest pain, fever, dysuria, bowel movement changes, headache. Diagnostics in ER revealed chronic anemia, she is hemodynamically stable, chemistry shows chronic hypercarbia with good compensation, she seems to have more BNP from her previous admission chest x-ray is consistent with congestion When I examined her she was saturating well on 2 L nasal cannula, she was not requiring BiPAP, she was in semi-mott position Review of Systems Const: Reports: body aches and fatigue; Denies: fever or chills Eyes: Denies: change in vision ENMT: Denies: throat pain Card: Reports: shortness of breath on exertion and shortness of breath when lying down; Denies: chest pain, palpitations, irregular heart rhythm, swelling of feet/ankles or syncope Resp: Reports: shortness of breath; Denies: productive cough or non-productive cough GI: Denies: abdominal pain : Denies: flank pain Musc: Denies: neck pain Skin/Breast: Denies: rash or itching Neuro: Denies: headache Psych: Denies: anxiety Endo: Denies: excessive urination Jesus Alberto/Lymph: Denies: easy bruising All/Imm: Denies: hives Medications/Allergies Home Medications Medication Instructions Recorded Confirmed Last Taken Type carbidopa 10 mg-levodopa 100 mg 1 tab PO BID 11/06/19 02/25/20 02/25/20 History disintegrating tablet fluoxetine 10 mg capsule 10 mg PO DAILY cap 11/06/19 02/25/20 02/25/20 History furosemide 80 mg tablet 80 mg PO BID 11/06/19 02/25/20 02/25/20 History levothyroxine 50 mcg capsule 50 mcg PO DAILY 11/06/19 02/25/20 02/25/20 History metoprolol tartrate 25 mg tablet 12.5 mg PO Q12H 11/06/19 02/25/20 02/25/20 History polyethylene glycol 3350 17 17 gm PO DAILY PRN 11/06/19 02/25/20 02/25/20 History gram/dose oral powder rosuvastatin 10 mg tablet 10 mg PO DAILY 11/06/19 02/25/20 02/24/20 History tolterodine 2 mg tablet 2 mg PO BID 11/06/19 02/25/20 02/25/20 History verapamil 180 mg 24 hr 180 mg PO QAM 11/06/19 02/25/20 02/25/20 History capsule,extended release isosorbide mononitrate 60 mg PO DAILY 12/12/19 02/25/20 02/25/20 History potassium chloride [Klor-Con 10] 20 meq PO BID 12/12/19 02/25/20 02/25/20 History sennosides-docusate sodium 2 tab PO BID #120 tab 12/18/19 02/25/20 02/25/20 Rx warfarin See Rx Instructions .ROUTE .COMPLEX 02/25/20 02/27/20 02/24/20 History dexlansoprazole [Dexilant] 30 mg PO DAILY #30 cap 02/26/20 Unknown Rx ferrous gluconate 324 mg PO BID #60 tab 02/26/20 Unknown Rx Allergies Allergy/AdvReac Type Severity Reaction Status Date / Time penicillin G Allergy UNK Verified 12/11/19 17:02 PFSH Acute PFSH: Medical History Afib COPD (chronic obstructive pulmonary disease) Former smoker, occasional use of breathing treatments Depression On fluoxetine with good control Diastolic CHF GERD (gastroesophageal reflux disease) PPI HTN (hypertension) Hypothyroidism Iron deficiency anemia Has required transfusion in past, last egd and colonoscopy ~2017 with diverticulosis and internal hemorrhoids, no clear source of bleeding Parkinson disease Sinimet Schatzki's ring Surgical History History of bilateral tubal ligation History of cholecystectomy History of total knee arthroplasty Left Mitral valve replaced Mechanical, on coumadin Family History Mother CAD (coronary artery disease) Diabetes Other Hypertension Social History (Updated 02/29/20 @ 01:08 by Surinder Olivares MD) Smoking and tobacco status: former smoker Alcohol intake: never Substance/Drug Use: never Household members: spouse Housing: House Vitals/I&O/Wt Last Vital Signs Temp 98.0 F 02/28/20 21:40 Pulse 60 02/28/20 22:38 Resp 18 02/28/20 22:38 BP 124/49 02/28/20 22:38 Pulse Ox 97 02/28/20 22:38 Weight last 48 hrs Weight 79.379 kg Physical Exam Narrative: EXAM NARRATIVE: Head to toe examination EOMI, PERRLA obese female in semi-mott position saturating well on 2 L nasal cannula No active respiratory distress She has cardiac wheezing, decreased breath sounds bilaterally Variable S1-S2 without RVR Hard to assess her JVD Mitral valve murmur, mild or signs of congestive heart failure Abdomen soft, obese obesity positive, bowel sounds present Lower extremity venous stasis dermatitis Trace lower extremity edema 1+ bilateral Alert oriented x3 GCS 15 Appropriate mood and affect Negatives: No signs of active respiratory distress No clubbing No focal deficit Data : 02/28/20 22:30 02/28/20 22:30 A&P Assessment and plan (1) Acute exacerbation of CHF (congestive heart failure): Status: Acute (2) Chronic hypercapnic respiratory failure: Status: Acute (3) Afib: Status: Acute Qualifiers: Atrial fibrillation type: longstanding persistent Qualified Code(s): I48.11 - Longstanding persistent atrial fibrillation (4) Acute and chronic respiratory failure with hypoxia: Status: Acute Additional A&P Information Acute mild exacerbation of diastolic congestive heart failure due to noncompliance and SONYA Patient is complaining of orthopnea, PND, missed her Lasix dose for 2 days, BNP is higher as compared to her previous admission, clinical signs of mild fluid overload, I do not think that her mitral valve is contributing to her heart failure decompensation at this point Noncomplainer of chest pain I would use Bumex 2 mg which will be given to Lasix 80 mg because it has better absorption and good diuretic response She has cardiac wheezing DuoNeb as needed every 4hr Acute on chronic hypoxic respiratory failure This is secondary to mild exacerbation of CHF Currently saturating well on 2 L Blood gas shows relative hypoxia Chronic hypercarbic respiratory failure She seems to be compensating well for her hypercarbic respiratory failure, however PCO2 is higher from her baseline, her PCO2 baseline is about 65, bicarb is showing acute on chronic compensation as well Would recommend not using opioids or anxiolytics at higher doses Mechanical mitral valve, chronic anticoagulation with Coumadin Check INR Continue warfarin 3 mg daily Hemoglobin stable, she required 2 units of PRBC on last visit, Atrial fibrillation without RVR I would hold verapamil at this point and continue beta-sammi and anticoagulati on Ropinirole on hold because of active CHF and blood pressure range between 100-1 10 Obstructive sleep apnea She is not using CPAP at night however she is using 2 L of oxygen at bedtime Chronic microcytic anemia due to iron deficiency Continue iron supplementation DVT prophylaxis: Not needed because of Coumadin, will check INR Cardiac diet Patient is full code: She would like to discuss her goals of care one more time with her family Attestations Medical Necessity Statement*: Anticipating discharge in less than 48 hours, she will need diuresis, continuation of her medications because of her nonc ompliance she is has had recurrence of symptoms and shortness of breath, currently suffering from cardiac wheezing Time Spent in Patient Care: 45 Coding Level of Care Code 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
[2020-02-29] MEDS: ipratropium-albuterol 3 mL Neb INHALATION ×4 (00:38→20:10)
[2020-02-29] MEDS: FUROsemide 10 mg/mL SDV 10mL 60 MG IVP (00:45)
--- NOTE | 2020-02-29 00:56 | PC.NURSE ---
Pt's daughter informed of pt's inpatient status
[2020-02-29 01:43] LABS: INR 2.26 (0.8-1.2); Partial Thromboplastin Time 55.1 SECONDS (23.9-36.7)
[2020-02-29] MEDS: metoprolol tartrate 25 mg Tablet 12.5 MG PO ×2 (02:13→13:43)
--- NOTE | 2020-02-29 04:21 | ED_ITS ---
HPI - Weakness General: Chief complaint: Weakness Stated complaint: sob/ weakness Time Seen by Provider: 02/28/20 21:43 History of Present Illness: HPI Narrative: 79-year-old female with a history of heart failure. She presents with shortness of breath and generalized weakness. She reports some cough, but denies any sputum production or fever. She states that her legs are more swollen than usual. She was here a couple of days ago and received a blood transfusion for what appears to be severe iron deficiency anemia. Complaint: generalized weakness Onset (ago): day(s) Duration: constant Location: generalized Migration: none Severity: moderate Quality: other Relieving factors: none Exacerbating factors: movement and exertion Context: recent illness Associated symptoms: Reports confusion and short of breath; Denies chest pain, chills, dark stools, dysuria, headache(s), nausea or vomiting Review of Systems Const: Denies: chills Eyes: Denies: change in vision or blurry vision ENMT: Denies: painful swallowing or facial/sinus pain Card: Denies: chest pain Resp: Reports: shortness of breath and non-productive cough; Denies: productive cough or wheezing GI: Denies: abdominal pain, nausea, vomiting, rectal pain, blood in stool or black tarry stool : Denies: painful urination, urinary frequency, urinary urgency or blood in urine Musc: Reports: back pain; Denies: neck pain, redness or joint warmth Skin/Breast: Denies: rash or redness Neuro: Reports: dizziness and confusion; Denies: headache, vertigo or seizure-like activity Psych: Reports: anxiety PFSH ED PFSH: Medical History (Updated 02/29/20 @ 01:13 by Surinder Olivares MD) Afib Chronic anticoagulation Due to mechanical mitral valve; coumadin Chronic hypercapnic respiratory failure COPD (chronic obstructive pulmonary disease) Former smoker, occasional use of breathing treatments Depression On fluoxetine with good control Diastolic CHF GERD (gastroesophageal reflux disease) PPI HTN (hypertension) Hypothyroidism Iron deficiency anemia Has required transfusion in past, last egd and colonoscopy ~2017 with diverticulosis and internal hemorrhoids, no clear source of bleeding SONYA (obstructive sleep apnea) Uses 2 L of oxygen at night does not use CPAP Parkinson disease Sinimet Schatzki's ring Surgical History History of bilateral tubal ligation History of cholecystectomy History of total knee arthroplasty Left Mitral valve replaced Mechanical, on coumadin Family History Mother CAD (coronary artery disease) Diabetes Other Hypertension Social History (Updated 02/29/20 @ 01:08 by Surinder Olivares MD) Smoking and tobacco status: former smoker Alcohol intake: never Substance/Drug Use: never Household members: spouse Housing: House Physical Exam Const: GENERAL APPEARANCE: well developed and lethargic ORIENTATION/CONSCIOUSNESS: Yes oriented to person, Yes oriented to place, Yes oriented to time and Yes lethargic HENMT: COMMON NORMALS: normocephalic, external ears normal and external nose normal HEAD & SCALP: normocephalic; no scalp tenderness FACE & SINUS: normal facial exam NOSE: external nose normal and no nasal discharge EXTERNAL EAR: Yes external ears normal MOUTH: tongue normal TEETH & GINGIVA: no abnormal tooth and associated gingiva THROAT: posterior oropharynx normal; no peritonsillar mass Eye: COMMON NORMALS: PERRL, EOMs intact bilaterally and conjunctivae normal EYELID: eyelids normal CONJUNCTIVA: Yes conjunctivae normal PUPIL: Yes PERRL Neck/C-Spine: GENERAL: No tracheal deviation CERVICAL SPINE: Yes normal cervical lordosis and No cervical spine tenderness Chest: COMMONS NORMALS: inspection of chest normal CHEST: No tenderness Resp: COMMON NORMALS: clear to auscultation bilaterally EFFORT & INSPECTION: No tachypneic, No respiratory distress, No retractions, No uses accessory muscles and No tracheal deviation AUSCULTATION: clear to auscultation bilaterally, no rhonchi, no wheezes and lung sounds not diminished Cardio: COMMON NORMALS: regular rate and regular rhythm RATE: regular rate RHYTHM: regular rhythm HEART SOUNDS: no murmurs PERIPHERAL PULSES: radial pulses present GI: INSPECTION: No abdominal distension AUSCULTATION: No hyperactive bowel sounds and No hypoactive bowel sounds PALPATION: No guarding and No rigid PERCUSSION: no dullness to percussion and no tympanic to percussion Neuro: SENSORIUM/ORIENTATION: Yes oriented to person, Yes oriented to place, Yes oriented to time and Yes lethargic Course Vital Signs: Vital signs: Vital Signs Temperature 97.8 F 02/29/20 01:54 Pulse Rate 66 02/29/20 01:54 Respiratory Rate 20 H 02/29/20 01:54 Blood Pressure 104/59 02/29/20 01:54 Pulse Oximetry 91 02/29/20 01:54 MDM - Weakness MDM Narrative: Medical decision making narrative: 79-year-old female presents with shortness of breath and generalized weakness. She is improved on oxygen. She says that she uses 2 L at home at night. Her blood gas shows that she is retaining a sip significant amounts of CO2 with a PCO2 in the 70s. Her blood pH, however, is normal giving indication that she has been like this for a while. Should be observed overnight, given breathing treatments and steroids, and Lasix as needed. Lab Data: Labs: Lab Results 02/28/20 02/28/20 02/28/20 Range/Units 22:30 22:30 22:30 WBC 4.4 (4.0-10.0) 10^3/ uL RBC 3.39 L (4.1-5.3) 10^6/u L Hgb 8.5 L (11.5-15.3) g/dL Hct 30.5 L (37.0-47.0) % MCV 90.0 (81-99) fL MCH 25.1 L (28.0-34.0) pg MCHC 27.9 L (30.0-36.0) g/dL RDW 17.9 H (12.1-15.1) % Plt Count 153 (130-400) 10^3/c mm MPV 10.6 H (7.4-10.4) fL Neut % (Auto) 69.4 % Lymph % (Auto) 15.3 % Burnet % (Auto) 11.4 % Eos % (Auto) 3.0 % Baso % (Auto) 0.7 % Neut # (Auto) 3.1 (1.8-7.7) 10^3/u L Lymph # (Auto) 0.7 L (0.8-4.8) 10^3/u L Burnet # (Auto) 0.5 (0.2-0.9) 10^3/u L Eos # (Auto) 0.1 (0.0-0.8) 10^3/u L Baso # (Auto) 0.0 (0.0-0.1) 10^3/u L Nucleated RBC % (a uto) 0 % Nucleated RBCs # 0.0 /100WBC PT (10.5-13.3) SECO NDS INR (0.8-1.2) APTT (23.9-36.7) SECO NDS Specimen Type Sample Site ABG pH (7.35-7.45) ABG pCO2 (35-45) mmHg ABG pO2 (80.0-100.0) mmH g ABG HCO3 (22-26) mmol/L ABG Base Excess (-2.0-2.0) mmol/ L César Test Hematocrit (37-47) % O2 Delivery Device O2 Liters/Min % Traction Power Engineer ID Sodium 145 (136-145) mmol/L Potassium 4.6 (3.5-5.1) mmol/L Chloride 98 (98-107) mmol/L Carbon Dioxide 42 H* (22-29) mmol/L Anion Gap 9.6 (5-19) BUN 9 (8-23) mg/dL Creatinine 0.7 (0.5-0.9) mg/dL Glucose 104 (65-115) mg/dL Calculated Osmolal ity 296 H (285-295) mOsm/k g Calcium 7.4 L (8.5-10.5) mg/dL Total Bilirubin 1.6 H (0.15-1.2) mg/dL AST 13 (0-32) U/L ALT < 5 (0-33) U/L Alkaline Phosphata se 108 H (35-105) IU/L NT-Pro-B Natriuret Pep 1197 H (0-450) pg/mL Total Protein 6.4 L (6.6-8.7) g/dL Albumin 3.6 (3.5-5.2) g/dL Globulin 2.8 (1.3-4.6) g/dL Urine Color (Yellow) Urine Appearance (CLEAR) Urine pH (5-7) Ur Specific Gravit y (1.005-1.030) Urine Protein (Negative) Urine Glucose (UA) (Normal) Urine Ketones (Negative) Urine Blood (Negative) Urine Nitrate (Negative) Urine Bilirubin (NEGATIVE) Urine Urobilinogen (Negative) mg/dL Ur Leukocyte Carlyn ase (Negative) Blood Type A Positive Rho(D) Type Positive Antibody Screen Negative 02/28/20 02/28/20 02/28/20 Range/Units 22:30 22:40 23:09 WBC (4.0-10.0) 10^3/ uL RBC (4.1-5.3) 10^6/u L Hgb (11.5-15.3) g/dL Hct (37.0-47.0) % MCV (81-99) fL MCH (28.0-34.0) pg MCHC (30.0-36.0) g/dL RDW (12.1-15.1) % Plt Count (130-400) 10^3/c mm MPV (7.4-10.4) fL Neut % (Auto) % Lymph % (Auto) % Burnet % (Auto) % Eos % (Auto) % Baso % (Auto) % Neut # (Auto) (1.8-7.7) 10^3/u L Lymph # (Auto) (0.8-4.8) 10^3/u L Burnet # (Auto) (0.2-0.9) 10^3/u L Eos # (Auto) (0.0-0.8) 10^3/u L Baso # (Auto) (0.0-0.1) 10^3/u L Nucleated RBC % (a uto) % Nucleated RBCs # /100WBC PT 25.80 H (10.5-13.3) SECO NDS INR 2.26 H (0.8-1.2) APTT 55.1 H (23.9-36.7) SECO NDS Specimen Type Arterial Sample Site Radial, right ABG pH 7.37 (7.35-7.45) ABG pCO2 73.3 H* (35-45) mmHg ABG pO2 65.3 L (80.0-100.0) mmH g ABG HCO3 42.0 H (22-26) mmol/L ABG Base Excess 14.5 H (-2.0-2.0) mmol/ L César Test Pos Hematocrit 27.0 L (37-47) % O2 Delivery Device Nc O2 Liters/Min 1.0 % Traction Power Engineer ID [id number] Sodium (136-145) mmol/L Potassium (3.5-5.1) mmol/L Chloride (98-107) mmol/L Carbon Dioxide (22-29) mmol/L Anion Gap (5-19) BUN (8-23) mg/dL Creatinine (0.5-0.9) mg/dL Glucose (65-115) mg/dL Calculated Osmolal ity (285-295) mOsm/k g Calcium (8.5-10.5) mg/dL Total Bilirubin (0.15-1.2) mg/dL AST (0-32) U/L ALT (0-33) U/L Alkaline Phosphata se (35-105) IU/L NT-Pro-B Natriuret Pep (0-450) pg/mL Total Protein (6.6-8.7) g/dL Albumin (3.5-5.2) g/dL Globulin (1.3-4.6) g/dL Urine Color Yellow (Yellow) Urine Appearance Clear (CLEAR) Urine pH 7 (5-7) Ur Specific Gravit y 1.005 (1.005-1.030) Urine Protein Neg (Negative) Urine Glucose (UA) Norm (Normal) Urine Ketones Negative (Negative) Urine Blood Neg (Negative) Urine Nitrate Negative (Negative) Urine Bilirubin Neg (NEGATIVE) Urine Urobilinogen Norm (Negative) mg/dL Ur Leukocyte Carlyn ase Negative (Negative) Blood Type Rho(D) Type Antibody Screen Discharge Plan Discharge Patient Disposition: Admitted As Inpatient Admit Provider: Surinder Olivares Clinical Impression: Respiratory failure Qualifiers: Chronicity: acute Respiratory failure complication: hypoxia and hypercapnia Qualified Code(s): J96.01 - Acute respiratory failure with hypoxia Condition: Stable Referrals: Michael Hampton DO [Primary Care Provider] - Discharge Date/Time: 02/29/20 01:46 Coding Level of Care Code 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
[2020-02-29 06:00] LABS: Basophils % 0.5 %; Eosinophils # 0.1 10^3/uL (0.0-0.8); Eosinophils % 2.1 %; Hematocrit 30.1 % (37.0-47.0); Hemoglobin 8.6 g/dL (11.5-15.3); Mean Corpuscular HGB Conc 28.6 g/dL (30.0-36.0); Mean Corpuscular Hemoglobin 25.7 pg (28.0-34.0); Mean Corpuscular Volume 90.1 fL (81-99); Mean Platelet Volume 10.4 fL (7.4-10.4); Monocytes # 0.4 10^3/uL (0.2-0.9); Monocytes % 9.9 %; Neutrophils # 2.9 10^3/uL (1.8-7.7); Neutrophils % 65.3 %; Nucleated Red Blood Cells % 0 %; Platelet Count 136 10^3/cmm (130-400); Red Blood Count 3.34 10^6/uL (4.1-5.3); Red Cell Distribution Width 18.3 % (12.1-15.1); White Blood Count 4.4 10^3/uL (4.0-10.0)
[2020-02-29 06:22] LABS: Alanine Aminotransferase < 5 U/L (0-33); Albumin Level 3.6 g/dL (3.5-5.2); Alkaline Phosphatase 104 IU/L (35-105); Anion Gap 10.2 (5-19); Aspartate Amino Transferase 11 U/L (0-32); Blood Urea Nitrogen 9 mg/dL (8-23); Calcium 8.7 mg/dL (8.5-10.5); Carbon Dioxide 39 mmol/L (22-29); Chloride 100 mmol/L (98-107); Globulin 2.8 g/dL (1.3-4.6); Glucose 101 mg/dL (65-115); Osmolality Calculated 298 mOsm/kg (285-295); Potassium 3.2 mmol/L (3.5-5.1); Sodium 146 mmol/L (136-145); Total Bilirubin 1.7 mg/dL (0.15-1.2); Total Protein 6.4 g/dL (6.6-8.7)
[2020-02-29] MEDS: pantoprazole DR 40 mg Tablet PO (08:27)
[2020-02-29] MEDS: atorvastatin 40 mg Tablet PO (08:27)
[2020-02-29] MEDS: tolterodine 2 mg Tablet PO ×2 (08:27→17:35)
[2020-02-29] MEDS: bumetanide 1 mg Tablet 2 MG PO ×2 (08:27→17:31)
[2020-02-29] MEDS: sennosides-docusate Tablet 2 TAB PO ×2 (08:27→17:31)
[2020-02-29] MEDS: fluoxetine 10 mg Capsule PO (08:27)
[2020-02-29] MEDS: levothyroxine 25 mcg Tablet 50 MCG PO (08:28)
[2020-02-29] MEDS: ferrous gluconate 324 mg Tablet PO ×2 (08:28→17:32)
--- NOTE | 2020-02-29 10:26 | P.PN_ITS ---
Subjective Subjective: Interval history: Iris is sleepy when I entered the room. She was recently taken off BiPAP. She is able to answer questions. She reports her shortness of breath is still present. Medications: Reviewed: Yes Vitals/I&O/Wt Last Vital Signs Temp 98.1 F 02/29/20 07:25 Pulse 61 02/29/20 07:36 Resp 12 02/29/20 07:32 BP 119/67 02/29/20 07:25 Pulse Ox 99 02/29/20 07:32 02/28/20 02/29/20 02/29/20 22:59 06:59 14:59 Intake Total 60 / 60 240 / 240 Output Total 350 / 350 Balance 60 / 60 -110 / -110 Weight last 48 hrs Weight 79.379 kg Physical Exam Narrative: EXAM NARRATIVE: General exam is no apparent distress, sleepy Cardiovascular regular rate and rhythm without murmur Lungs coarse breath sounds bibasilar Abdomen is soft positive bowel sounds Extremities no cyanosis clubbing or edema Data : 02/29/20 05:10 02/29/20 05:10 A&P Assessment and plan (1) Acute exacerbation of CHF (congestive heart failure): She has been transitioned to Bumex. We will see how she responds to this. Dose will need to be changed to 2 mg twice daily to correspond with her home Lasix dosing. Consistent with acute diastolic heart failure. Status: Acute (2) Chronic hypercapnic respiratory failure: Also with history of COPD. Change nebs to scheduled. BiPAP as needed Status: Acute (3) Afib: Rate controlled currently. Status: Acute Qualifiers: Atrial fibrillation type: longstanding persistent Qualified Code(s): I48.11 - Longstanding persistent atrial fibrillation (4) Acute and chronic respiratory failure with hypoxia: Status: Acute Additional A&P Information History of mechanical mitral valve replacement. Continue Coumadin. Check INR. Anemia, recent hospitalization for 2 units of packed red blood cells were transfused. Monitor hemoglobin with CBC tomorrow History of atrial fibrillation with rapid ventricular rate. Verapamil held on admission. Will monitor heart rate closely, and consider restarting lower dose or increasing metoprolol if needed. Obstructive sleep apnea. Not using CPAP. DVT prophylaxis, she is on Coumadin Full code at this time Attestations Medical Necessity Statement*: Needs continued hospitalization for treatment of acute Coding Level of Care Code Acute Building Code Administrator for [facility] Fwd Diagnoses Acute exacerbation of CHF (congestive heart failure) I50.9 Chronic hypercapnic respiratory failure J96.12 Afib I48.11 Atrial fibrillation type: longstanding persistent Acute and chronic respiratory failure with hypoxia J96.21
[2020-02-29 10:55] LABS: INR 2.28 (0.8-1.2)
[2020-02-29] MEDS: warfarin 3 mg Tablet PO (13:42)
[2020-03-01] VITALS (9 sets, daily range): BP systolic 110–133; BP diastolic 50–72; PULSE 61–80; RESP 16–20; TEMP 36.5–36.7; O2SAT 87–98
[2020-03-01] MEDS: ipratropium-albuterol 3 mL Neb INHALATION ×2 (02:04→08:01)
[2020-03-01 05:07] LABS: Basophils % 0.7 %; Eosinophils # 0.1 10^3/uL (0.0-0.8); Eosinophils % 2.6 %; Hematocrit 31.1 % (37.0-47.0); Hemoglobin 8.8 g/dL (11.5-15.3); Lymphocytes # 0.7 10^3/uL (0.8-4.8); Lymphocytes % 16.5 %; Mean Corpuscular HGB Conc 28.3 g/dL (30.0-36.0); Mean Corpuscular Hemoglobin 25.1 pg (28.0-34.0); Mean Corpuscular Volume 88.9 fL (81-99); Mean Platelet Volume 9.8 fL (7.4-10.4); Monocytes # 0.4 10^3/uL (0.2-0.9); Monocytes % 8.9 %; Neutrophils % 71.1 %; Nucleated Red Blood Cells % 0 %; Platelet Count 135 10^3/cmm (130-400); Red Cell Distribution Width 18.6 % (12.1-15.1); White Blood Count 4.2 10^3/uL (4.0-10.0)
[2020-03-01 05:17] LABS: INR 2.43 (0.8-1.2)
[2020-03-01 05:28] LABS: Alanine Aminotransferase 6 U/L (0-33); Albumin Level 3.5 g/dL (3.5-5.2); Alkaline Phosphatase 103 IU/L (35-105); Anion Gap 11.3 (5-19); Aspartate Amino Transferase 11 U/L (0-32); Blood Urea Nitrogen 11 mg/dL (8-23); Calcium 8.7 mg/dL (8.5-10.5); Carbon Dioxide 39 mmol/L (22-29); Chloride 101 mmol/L (98-107); Globulin 2.7 g/dL (1.3-4.6); Glucose 94 mg/dL (65-115); Osmolality Calculated 302 mOsm/kg (285-295); Potassium 3.3 mmol/L (3.5-5.1); Sodium 148 mmol/L (136-145); Total Bilirubin 1.7 mg/dL (0.15-1.2); Total Protein 6.2 g/dL (6.6-8.7)
[2020-03-01] MEDS: tolterodine 2 mg Tablet PO (09:08)
[2020-03-01] MEDS: sennosides-docusate Tablet 2 TAB PO (09:08)
[2020-03-01] MEDS: pantoprazole DR 40 mg Tablet PO (09:09)
[2020-03-01] MEDS: ferrous gluconate 324 mg Tablet PO (09:09)
[2020-03-01] MEDS: fluoxetine 10 mg Capsule PO (09:09)
[2020-03-01] MEDS: levothyroxine 25 mcg Tablet 50 MCG PO (09:09)
[2020-03-01] MEDS: atorvastatin 40 mg Tablet PO (09:09)
[2020-03-01] MEDS: bumetanide 1 mg Tablet 2 MG PO (09:09)
[2020-03-01] MEDS: metoprolol tartrate 25 mg Tablet PO (09:10)
--- NOTE | 2020-03-01 09:56 | P.DS_ITS ---
Discharge Providers Date of Admission: 02/29/20 00:37 Date of Discharge: March 01, 2020 Attending Provider at Admission: Surinder Olivares MD Attending Provider at Discharge: Anastacio Saab MD Primary Care Provider: Michael Hampton DO Diagnoses at Discharge Discharge Diagnosis (1) Acute exacerbation of CHF (congestive heart failure): Status: Acute Problem details: Improved. Transition to Bumex. Tolerating well. Home oxygen evaluation prior to discharge. (2) Chronic hypercapnic respiratory failure: Status: Acute Problem details: Home oxygen evaluation prior to discharge. (3) Afib: Status: Acute Problem details: Diltiazem discontinued. Metoprolol increased. Qualifiers: Atrial fibrillation type: longstanding persistent Qualified Code(s): I48.11 - Longstanding persistent atrial fibrillation (4) Acute and chronic respiratory failure with hypoxia: Status: Acute Reason for Visit Reason for Visit: Reason For Visit: sob/ weakness Hospital Course Hospital Course: Iris is an 79-year-old white female who presented with shortness of breath. She had recently been in the hospital and received a blood transfusion. She had not taken diuretics for 3 days. She felt bloated. Hemoglobin was 8.5. In the emergency department she received a dose of IV diuretics. Her Cardizem was held. Bumex was initiated. Metoprolol she was on at home was increased to control atrial fibrillation. By the morning of March 01 she appeared compensated in regards to her congestive heart failure. INR was therapeutic at 2.43. Creatinine 0.7. Hemoglobin stable at 8.8. It was thought she could be discharged to home, with close outpatient follow-up and BMP in approximately 3 days. Home oxygen evaluation prior to discharge. Home health. Physical Exam Narrative: EXAM NARRATIVE: General exam no apparent distress Cardiovascular irregular, irregular. Rate controlled Lungs clear, no wheezing Abdomen is soft with positive bowel sounds Extremities no cyanosis clubbing or edema Discharge Data Data Completed and Pending: Completed Studies During Hospitalization Category Date Time Status XR chest 1V mary ble [id number] Urgent Exams 02/28/20 21:56 Completed Labs from last 24 hours 03/01/20 03/01/20 03/01/20 04:31 04:31 04:31 WBC 4.2 RBC 3.50 L Hgb 8.8 L Hct 31.1 L MCV 88.9 MCH 25.1 L MCHC 28.3 L RDW 18.6 H Plt Count 135 MPV 9.8 Neut % (Auto) 71.1 Lymph % (Auto) 16.5 [place] % (Auto) 8.9 Eos % (Auto) 2.6 Baso % (Auto) 0.7 Neut # (Auto) 3.0 Lymph # (Auto) 0.7 L [place] # (Auto) 0.4 Eos # (Auto) 0.1 Baso # (Auto) 0.0 Nucleated RBC % (a uto) 0 Nucleated RBCs # 0.0 PT 26.70 H INR 2.43 H Sodium 148 H Potassium 3.3 L Chloride 101 Carbon Dioxide 39 H Anion Gap 11.3 BUN 11 Creatinine 0.7 Glucose 94 Calculated Osmolal ity 302 H Calcium 8.7 Total Bilirubin 1.7 H AST 11 ALT 6 Alkaline Phosphata se 103 Total Protein 6.2 L Albumin 3.5 Globulin 2.7 02/29/20 05:10 WBC RBC Hgb Hct MCV MCH MCHC RDW Plt Count MPV Neut % (Auto) Lymph % (Auto) [place] % (Auto) Eos % (Auto) Baso % (Auto) Neut # (Auto) Lymph # (Auto) [place] # (Auto) Eos # (Auto) Baso # (Auto) Nucleated RBC % (a uto) Nucleated RBCs # PT 26.00 H INR 2.28 H Sodium Potassium Chloride Carbon Dioxide Anion Gap BUN Creatinine Glucose Calculated Osmolal ity Calcium Total Bilirubin AST ALT Alkaline Phosphata se Total Protein Albumin Globulin Vitals: Last Vital Signs Temp 97.7 F 03/01/20 07:16 Pulse 69 03/01/20 07:27 Resp 16 03/01/20 07:27 BP 133/72 03/01/20 07:16 Pulse Ox 98 03/01/20 07:27 Discharge Plan Discharge Patient Disposition: Home Health Service Condition: Stable Prescriptions: New bumetanide 2 mg tablet 2 mg PO DAILY Qty: 30 RF: 0 metoprolol tartrate 25 mg Tablet 25 mg PO Q12H Qty: 60 RF: 0 Continued polyethylene glycol 3350 [Miralax] 17 gram/dose powder 17 gm PO DAILY PRN (Reason: Constipation) RF: 0 carbidopa-levodopa 10-100 mg tablet,disintegrating 1 tab PO BID RF: 0 fluoxetine 10 mg capsule 10 mg PO DAILY RF: 0 levothyroxine 50 mcg capsule 50 mcg PO DAILY RF: 0 rosuvastatin [Crestor] 10 mg tablet 10 mg PO DAILY RF: 0 potassium chloride [Klor-Con 10] 10 mEq tablet extended release 20 meq PO BID RF: 0 isosorbide mononitrate 60 mg tablet extended release 24 hr 60 mg PO DAILY RF: 0 sennosides-docusate sodium 8.6-50 mg Tablet 2 tab PO BID Qty: 120 RF: 0 warfarin 1 mg tablet See Rx Instructions .ROUTE .COMPLEX RF: 0 Dexilant 30 mg capsule,biphase delayed releas 30 mg PO DAILY Qty: 30 RF: 0 ferrous gluconate 324 mg (37.5 mg iron) tablet 324 mg PO BID Qty: 60 RF: 0 Discontinued furosemide 80 mg tablet 80 mg PO BID RF: 0 metoprolol tartrate 25 mg tablet 12.5 mg PO Q12H RF: 0 verapamil 180 mg capsule,ext rel. pellets 24 hr 180 mg PO QAM RF: 0 Discharge Orders: Discharge Order (Routine); Ordered 03/01/20 Ordered By: Anastacio Saab Referrals: Surinder Mays MD [Physician] - 7-10 days Michael Hampton DO [Primary Care Provider] - 1-3 days Discharge Diet: Cardiac Discharge Activity: Increase activity as tolerated Activity Restrictions/Additional Instructions: Take all medicine as prescribed. Keep follow-up was arranged. Notify primary care provider for any worsening shortness of breath, edema. Discharge Attestations Time Spent in Discharge Care*: greater than 30 min Status at Discharge: Cognitive status at discharge: cognitively intact , Behavioral status at discharge: cooperative , Quality Metrics Clinical Quality Measures During this hospital stay, did patient experience: None Coding Level of Care Code Acute Chronometer Assembler And Adjuster for Norma Fwd Diagnoses Acute exacerbation of CHF (congestive heart failure) I50.9 Chronic hypercapnic respiratory failure J96.12 Afib I48.11 Atrial fibrillation type: longstanding persistent Acute and chronic respiratory failure with hypoxia J96.21
--- NOTE | 2020-03-01 12:57 | PC.NURSE ---
Sent bumex 2 mg home with patient for the 1800 dose, pharmacy is closed.
--- NOTE | 2020-03-05 17:34 | PC.RESP ---
Pulmonary Rehab outpatient information sent to patient post discharge.
== END 2020-03-01 13:35 | disposition home health service (06) ==
LOC: ER 02-29 00:29 → MEDSURG 02-29 01:22
PROVIDERS: Admitting Provider Internal Medicine; Emergency Provider Emergency Medicine; Family Provider Family Medicine; PCP Family Medicine; Visit Provider Internal Medicine
DX: I11.0 Hypertensive heart disease with heart failure (principal); I50.9 Heart failure, unspecified; I48.11 Longstanding persistent atrial fibrillation; J96.22 Acute and chronic respiratory failure with hypercapnia; J96.21 Acute and chronic respiratory failure with hypoxia; G47.33 Obstructive sleep apnea (adult) (pediatric); Z79.01 Long term (current) use of anticoagulants; E03.9 Hypothyroidism, unspecified; G20 Parkinson's disease; Z82.49 Family history of ischemic heart disease and other diseases of the circulatory system; Z83.3 Family history of diabetes mellitus; Z87.891 Personal history of nicotine dependence
CPT/HCPCS: 12345; 36415; 36600; 71045; 80053; 81003; 82803; 83880; 85025; 85610; 85730; 86850; 86900; 94640; 94660; 94760; 96374; 99282; 99285; G0378; J1940

== ENCOUNTER 2020-03-12 13:30 | Outpatient (CLI) | payer MEDICARE, MEDICAID, SELFPAY ==
[2020-03-12 13:59] LABS: Basophils % 0.8 %; Eosinophils # 0.1 10^3/uL (0.0-0.8); Eosinophils % 1.4 %; Hematocrit 34.2 % (37.0-47.0); Hemoglobin 9.5 g/dL (11.5-15.3); Lymphocytes # 0.8 10^3/uL (0.8-4.8); Lymphocytes % 23.1 %; Mean Corpuscular HGB Conc 27.8 g/dL (30.0-36.0); Mean Corpuscular Volume 93.7 fL (81-99); Mean Platelet Volume 10.8 fL (7.4-10.4); Monocytes # 0.3 10^3/uL (0.2-0.9); Monocytes % 8.2 %; Neutrophils # 2.4 10^3/uL (1.8-7.7); Neutrophils % 66.2 %; Nucleated Red Blood Cells % 0 %; Platelet Count 157 10^3/cmm (130-400); Red Blood Count 3.65 10^6/uL (4.1-5.3); Red Cell Distribution Width 20.5 % (12.1-15.1); White Blood Count 3.6 10^3/uL (4.0-10.0)
[2020-03-12 14:16] LABS: INR 2.64 (0.8-1.2)
[2020-03-12 14:19] LABS: Alanine Aminotransferase < 5 U/L (0-33); Albumin Level 3.6 g/dL (3.5-5.2); Alkaline Phosphatase 117 IU/L (35-105); Aspartate Amino Transferase 13 U/L (0-32); Blood Urea Nitrogen 8 mg/dL (8-23); Calcium 8.7 mg/dL (8.5-10.5); Carbon Dioxide 34 mmol/L (22-29); Chloride 101 mmol/L (98-107); Ferritin 97 ng/mL (15-150); Globulin 2.7 g/dL (1.3-4.6); Glucose 80 mg/dL (65-115); Iron 30 ug/dL (37-145); Osmolality Calculated 291 mOsm/kg (285-295); Percent Saturation 13.2 % (20-50); Sodium 143 mmol/L (136-145); Total Bilirubin 0.6 mg/dL (0.15-1.2); Total Iron Binding Capacity 227 mcg/dl; Total Protein 6.3 g/dL (6.6-8.7); Unsaturated Iron Binding 197 ug/dL (112-347)
[2020-03-12 14:35] LABS: Vitamin B12 368 pg/mL (232-1245)
== END 2020-03-12 13:31 | disposition home or self-care (01) ==
LOC: LAB 13:31
PROVIDERS: PCP Family Medicine; Visit Provider Internal Medicine Hematology & Oncology
DX: I50.9 Heart failure, unspecified (principal); I48.91 Unspecified atrial fibrillation
CPT/HCPCS: 80053; 82607; 82728; 83540; 83550; 85025; 85610

== ENCOUNTER 2020-03-13 11:59 | Emergency (ER) | payer MEDICARE, MEDICAID, SELFPAY ==
[2020-03-13] VITALS (17 sets, daily range): BP systolic 118–175; BP diastolic 41–92; PULSE 58–596; RESP 16–31; O2SAT 99–100; BMI 32.0
--- NOTE | 2020-03-13 12:11 | XR_ITS ---
WS: [id number] PORTABLE CHEST HISTORY: dyspnea/cough COMPARISON: 02/28/2020 Prior aortic valve replacement. Mild pulmonary congestion. New since the prior study. Small LEFT pleural effusion is new. No pleural effusion or pneumothorax. Cardiac size: Normal. Mediastinum/Aorta: Normal mediastinum. No osseous abnormality seen. XR/XR chest 1V portable [id number] IMPRESSION: 1. Small LEFT pleural effusion is new since 02/28/2020. 2. Mild pulmonary congestion is also new.
[2020-03-13 12:27] LABS: Basophils % 0.4 %; Eosinophils % 0.7 %; Hematocrit 38.4 % (37.0-47.0); Hemoglobin 10.9 g/dL (11.5-15.3); Lymphocytes % 17.9 %; Mean Corpuscular HGB Conc 28.4 g/dL (30.0-36.0); Mean Corpuscular Hemoglobin 26.8 pg (28.0-34.0); Mean Corpuscular Volume 94.3 fL (81-99); Mean Platelet Volume 11.1 fL (7.4-10.4); Monocytes # 0.4 10^3/uL (0.2-0.9); Neutrophils # 3.9 10^3/uL (1.8-7.7); Neutrophils % 72.8 %; Nucleated Red Blood Cells % 0 %; Platelet Count 173 10^3/cmm (130-400); Red Blood Count 4.07 10^6/uL (4.1-5.3); Red Cell Distribution Width 20.4 % (12.1-15.1); White Blood Count 5.4 10^3/uL (4.0-10.0)
[2020-03-13 12:28] LABS: ABG PH Result 7.27 (7.35-7.45); Arterial Blood Gas Hematocrit 34.5 % (37-47); Base Excess ABG 6.6 mmol/L (-2.0-2.0); Blood Gas Allen Test Pos; Blood Gas Sample Site Radial, left; Blood Gas Sample Type Arterial; Carboxyhemoglobin 1.2 %THgb (0.4-20.1); HCO3 ABG 35.8 mmol/L (22-26); HGB O2 Sat 98.5 % (95-100); Ionized Calcium Level - ABG 1.2 mmol/L (1.1-1.4); Methemoglobin 0.9 % (0.4-1.5); Oxygen Device NRB; Potassium Level - ABG 4.3 mmol/L (3.5-5.0); Total Hemoglobin 11.3 g/dL (12-16)
[2020-03-13] MEDS: ondansetron 2 mg/ML SDV 2 mL 4 MG IVP (12:28)
[2020-03-13 12:29] LABS: ABG PCO2 77.8 mmHg (35-45)
[2020-03-13] MEDS: morphine 4 mg/mL SDV 1 mL IVP (12:29)
[2020-03-13] MEDS: sodium chloride 0.9% 500 ML 999 ML IV (12:32)
[2020-03-13 12:35] LABS: INR 2.75 (0.8-1.2)
[2020-03-13 12:41] LABS: Alanine Aminotransferase 7 U/L (0-33); Albumin Level 4.2 g/dL (3.5-5.2); Alkaline Phosphatase 140 IU/L (35-105); Anion Gap 11.2 (5-19); Aspartate Amino Transferase 15 U/L (0-32); Blood Urea Nitrogen 7 mg/dL (8-23); Calcium 9.1 mg/dL (8.5-10.5); Carbon Dioxide 36 mmol/L (22-29); Chloride 99 mmol/L (98-107); Globulin 3.1 g/dL (1.3-4.6); Glucose 104 mg/dL (65-115); Osmolality Calculated 290 mOsm/kg (285-295); Potassium 4.2 mmol/L (3.5-5.1); Sodium 142 mmol/L (136-145); Total Bilirubin 1.2 mg/dL (0.15-1.2); Total Protein 7.3 g/dL (6.6-8.7)
[2020-03-13] MEDS: succinylcholine 20 mg/mL SDV 10mL 80 MG IVP (13:03)
[2020-03-13] MEDS: propofol 1,000 MG/100 ML INJ 2.5 MG (13:07)
--- NOTE | 2020-03-13 13:11 | ED_ITS ---
HPI - Fall General: Chief Complaint: Fall Stated Complaint: FALL WITH RIB PAIN Time Seen by Provider: 03/13/20 12:02 History of Present Illness: HPI Narrative: 79-year-old female who fell in her home yesterday and now she is having increasing difficulty breathing EMS brought her in and identified a posterior flail segment of chest on the left they have a bandage in place to try to splinted patient is rapid shallow respiration she is awake and alert managed to keep her oxygen saturation up but with minimal activity she will have her oxygen sats into the 70s. She denies any other injury when she fell she is not had any hemoptysis. MD complaint: fall Onset (ago): day(s) (1) Fall from: standing Place fall occurred: home Loss of consciousness: None Prolonged down time: no Context: tripped/slipped Severity: severe Associated symptoms-after fall: Denies abdominal pain, chest pain, confusion, difficulty walking, headache(s), hematuria, neck pain or vertigo Review of Systems Const: Denies: fever(s), chills, body aches, fatigue, malaise or night sweats Eyes: Denies: change in vision or blurry vision ENMT: Denies: throat pain, oral sores, dental pain, nasal discharge or nasal congestion Card: Reports: dyspnea on exertion; Denies: chest pain, palpitations, irregular heart rhythm, edema, syncope, orthopnea or leg pain with exertion Resp: Reports: dyspnea; Denies: productive cough, non-productive cough or wheezing GI: Denies: abdominal pain, nausea, vomiting, hematemesis, coffee ground emesis, dysphagia, heartburn, diarrhea, constipation, GI cramping, hematochezia or melena : Denies: flank pain, dysuria, urinary frequency, urinary urgency, urinary incontinence or hematuria Musc: Denies: neck pain, back pain, extremity pain, extremity swelling, joint pain or joint swelling Skin/Breast: Denies: rash, pruritus or erythema Neuro: Denies: headache(s), numbness in extremities, weakness in extremities, sensory changes, lack of coordination, difficulty walking, frequent falls, dizziness, vertigo or confusion Psych: Denies: anxiety, depression, loss of interest, visual hallucinations, auditory hallucinations, suicidal ideation or homicidal ideation Endo: Denies: polyuria, polydipsia, tired all the time or cold intolerance Jesus Alberto/Lymph: Denies: easy bruising, easy bleeding, petechiae, enlarged lymph nodes or tender lymph nodes PFSH ED PFSH: Medical History (Updated 03/14/20 @ 14:41 by Emile Brooks DO) Afib Diltiazem discontinued. Metoprolol increased. Chronic anticoagulation Due to mechanical mitral valve; coumadin Chronic hypercapnic respiratory failure Home oxygen evaluation prior to discharge. COPD (chronic obstructive pulmonary disease) Former smoker, occasional use of breathing treatments Depression On fluoxetine with good control Diastolic CHF GERD (gastroesophageal reflux disease) PPI HTN (hypertension) Hypothyroidism Iron deficiency anemia Has required transfusion in past, last egd and colonoscopy ~2017 with diverticulosis and internal hemorrhoids, no clear source of bleeding SONYA (obstructive sleep apnea) Uses 2 L of oxygen at night does not use CPAP Parkinson disease Sinimet Schatzki's ring Surgical History History of bilateral tubal ligation History of cholecystectomy History of total knee arthroplasty Left Mitral valve replaced Mechanical, on coumadin Family History Mother CAD (coronary artery disease) Diabetes Other Hypertension Social History Smoking and tobacco status: never smoked Alcohol intake: never Household members: spouse Housing: House Physical Exam Const: COMMON NORMALS: no acute distress GENERAL APPEARANCE: cooperative and comfortable ORIENTATION/CONSCIOUSNESS: Yes awake, Yes oriented to person, Yes oriented to place and Yes oriented to time HENMT: COMMON NORMALS: normocephalic, atraumatic, hearing grossly normal bilaterally, external ears normal, EAC's normal, TM's normal bilaterally, Normal nasal mucous membranes and turbinates present, moist oral mucous membranes and oropharynx normal HEAD & SCALP: normocephalic and atraumatic NOSE: Normal nasal mucous membranes and turbinates present EXTERNAL EAR: Yes external ears normal EXTERNAL AUDITORY CANAL: EAC's normal TYMPANIC MEMBRANE: TM's normal bilaterally Eye: COMMON NORMALS: Equal, round and reactive pupils present, EOMs intact bilaterally, conjunctivae normal and no scleral icterus CONJUNCTIVA: Yes conjunctivae normal PUPIL: Yes Equal, round and reactive pupils present Neck/C-Spine: COMMON NORMALS: full ROM, no lymphadenopathy, supple and no JVD Lymph: LYMPHATIC: no lymphadenopathy noted and no lymphedema noted Chest: CHEST: Yes abnormal inspection of the chest flail chest appearance (Right posterior ribs ribs 8 through 10) Resp: COMMON NORMALS: normal respiratory effort, No retractions, No use of accessory muscles and clear to auscultation bilaterally AUSCULTATION: clear to auscultation bilaterally Cardio: COMMON NORMALS: no JVD, regular rate, regular rhythm and No murmurs present (Cardio) RATE: regular rate RHYTHM: regular rhythm GI: COMMON NORMALS: Soft to palpation and No hepatosplenomegaly present AUSCULTATION: Yes normoactive bowel sounds PALPATION: Yes Soft to palpation, No Tenderness to palpation present (GI), No Guarding due to palpation present (GI) and Yes No hepatosplenomegaly present Extremity: COMMON NORMALS: normal to inspection, capillary refill normal, no clubbing, cyanosis or edema, no calf tenderness and no pedal edema Neuro: SENSORIUM/ORIENTATION: Yes oriented to person, Yes oriented to place and Yes oriented to time Skin: COMMON NORMALS: no rashes or lesions noted GENERAL SKIN EXAM: no rashes or lesions noted Procedures Intubation Time out performed: Yes sedative: Etomidate Mg Given: 30 paralytic: Succinylcholine Mg Given: 100 Laryngoscope: Lucien ET Tube Size: 8.5 Tube Secured Depth (cm): 20 Tube Secured Location: teeth Tube Placement Confirmation: visualized tube passing through cords, equal breath sounds bilaterally and no breath sounds over epigastrium Patient Tolerated Procedure: well Course Vital Signs: Vital signs: Vital Signs Pulse Rate 58 L 03/13/20 15:10 Respiratory Rate 20 H 03/13/20 15:34 Blood Pressure 147/41 03/13/20 15:10 Pulse Oximetry 100 03/13/20 15:10 MDM - Fall MDM Narrative: Medical decision making narrative: Patient demonstrated a flail chest wall posteriorly on exam and chest x-ray showed 6 weeks is a small hemothorax. Patient was demonstrating respiratory distress with tachypnea blood gases showed hypercapnic respiratory failure she discussed it with the patient and we intubated her and placed on a ventilator to allow for better respiratory control. Will transfer to [facility] ER to ER they have agreed to accept her on transfer. Lab Data: Labs: Lab Results 03/13/20 03/13/20 03/13/20 Range/Units 11:32 11:32 11:32 WBC 5.4 (4.0-10.0) 10^3/ uL RBC 4.07 L (4.1-5.3) 10^6/u L Hgb 10.9 L (11.5-15.3) g/dL Hct 38.4 (37.0-47.0) % MCV 94.3 (81-99) fL MCH 26.8 L (28.0-34.0) pg MCHC 28.4 L (30.0-36.0) g/dL RDW 20.4 H (12.1-15.1) % Plt Count 173 (130-400) 10^3/c mm MPV 11.1 H (7.4-10.4) fL Neut % (Auto) 72.8 % Lymph % (Auto) 17.9 % [place] % (Auto) 8.0 % Eos % (Auto) 0.7 % Baso % (Auto) 0.4 % Neut # (Auto) 3.9 (1.8-7.7) 10^3/u L Lymph # (Auto) 1.0 (0.8-4.8) 10^3/u L [place] # (Auto) 0.4 (0.2-0.9) 10^3/u L Eos # (Auto) 0.0 (0.0-0.8) 10^3/u L Baso # (Auto) 0.0 (0.0-0.1) 10^3/u L Nucleated RBC % (a uto) 0 % Nucleated RBCs # 0.0 /100WBC PT 30.10 H (10.5-13.3) SECO NDS INR 2.75 H (0.8-1.2) Specimen Type Sample Site ABG pH (7.35-7.45) ABG pCO2 (35-45) mmHg ABG pO2 (80.0-100.0) mmH g ABG HCO3 (22-26) mmol/L ABG O2 Saturation ABG Base Excess (-2.0-2.0) mmol/ L César Test A-a O2 Gradient (5-10) mmHg Hematocrit (37-47) % Hgb O2 Saturation (95-100) % Carboxyhemoglobin (0.4-20.1) %THgb Methemoglobin (0.4-1.5) % Total Hemoglobin (12-16) g/dL Ionized Calcium (1.1-1.4) mmol/L Respiration Rate % O2 Delivery Device O2 Liters/Min % FiO2 % Tidal Volume PEEP cmH20 Environmental Health Safety Engineer ID Sodium 142 (136-145) mmol/L Potassium 4.2 (3.5-5.1) mmol/L Chloride 99 (98-107) mmol/L Carbon Dioxide 36 H (22-29) mmol/L Anion Gap 11.2 (5-19) BUN 7 L (8-23) mg/dL Creatinine 0.7 (0.5-0.9) mg/dL Glucose 104 (65-115) mg/dL Calculated Osmolal ity 290 (285-295) mOsm/k g Calcium 9.1 (8.5-10.5) mg/dL Total Bilirubin 1.2 (0.15-1.2) mg/dL AST 15 (0-32) U/L ALT 7 (0-33) U/L Alkaline Phosphata se 140 H (35-105) IU/L Total Protein 7.3 (6.6-8.7) g/dL Albumin 4.2 (3.5-5.2) g/dL Globulin 3.1 (1.3-4.6) g/dL Urine Color (Yellow) Urine Appearance (CLEAR) Urine pH (5-7) Ur Specific Gravit y (1.005-1.030) Urine Protein (Negative) Urine Glucose (UA) (Normal) Urine Ketones (Negative) Urine Blood (Negative) Urine Nitrate (Negative) Urine Bilirubin (NEGATIVE) Urine Urobilinogen (Negative) mg/dL Ur Leukocyte Carlyn ase (Negative) Urine RBC (0-2) /hpf Urine WBC (0-5) /hpf Ur Squamous Epith Cells (0-5) Urine Bacteria (NONE) Hyaline Casts Urine Mucus 03/13/20 03/13/20 03/13/20 Range/Units 12:17 13:40 15:15 WBC (4.0-10.0) 10^3/ uL RBC (4.1-5.3) 10^6/u L Hgb (11.5-15.3) g/dL Hct (37.0-47.0) % MCV (81-99) fL MCH (28.0-34.0) pg MCHC (30.0-36.0) g/dL RDW (12.1-15.1) % Plt Count (130-400) 10^3/c mm MPV (7.4-10.4) fL Neut % (Auto) % Lymph % (Auto) % [place] % (Auto) % Eos % (Auto) % Baso % (Auto) % Neut # (Auto) (1.8-7.7) 10^3/u L Lymph # (Auto) (0.8-4.8) 10^3/u L [place] # (Auto) (0.2-0.9) 10^3/u L Eos # (Auto) (0.0-0.8) 10^3/u L Baso # (Auto) (0.0-0.1) 10^3/u L Nucleated RBC % (a uto) % Nucleated RBCs # /100WBC PT (10.5-13.3) SECO NDS INR (0.8-1.2) Specimen Type Arterial Arterial Sample Site Radial, left Brachial, right ABG pH 7.27 L 7.33 L (7.35-7.45) ABG pCO2 77.8 H* 64.5 H* (35-45) mmHg ABG pO2 446.0 H* 96.6 (80.0-100.0) mmH g ABG HCO3 35.8 H 34.1 H (22-26) mmol/L ABG O2 Saturation 98.2 ABG Base Excess 6.6 H 6.7 H (-2.0-2.0) mmol/ L César Test Pos Pos A-a O2 Gradient 107.1 H (5-10) mmHg Hematocrit 34.5 L 32.2 L (37-47) % Hgb O2 Saturation 98.5 96.1 (95-100) % Carboxyhemoglobin 1.2 1.2 (0.4-20.1) %THgb Methemoglobin 0.9 0.8 (0.4-1.5) % Total Hemoglobin 11.3 L 10.5 L (12-16) g/dL Ionized Calcium 1.2 1.1 (1.1-1.4) mmol/L Respiration Rate 16.0 % O2 Delivery Device Nrb Vent O2 Liters/Min 15.0 % FiO2 40.0 % Tidal Volume 0.32 PEEP 8.0 cmH20 Environmental Health Safety Engineer ID cak cak Sodium 144.0 H 143.0 (136-145) mmol/L Potassium 4.3 4.2 (3.5-5.1) mmol/L Chloride (98-107) mmol/L Carbon Dioxide (22-29) mmol/L Anion Gap (5-19) BUN (8-23) mg/dL Creatinine (0.5-0.9) mg/dL Glucose 106.0 103.0 (65-115) mg/dL Calculated Osmolal ity (285-295) mOsm/k g Calcium (8.5-10.5) mg/dL Total Bilirubin (0.15-1.2) mg/dL AST (0-32) U/L ALT (0-33) U/L Alkaline Phosphata se (35-105) IU/L Total Protein (6.6-8.7) g/dL Albumin (3.5-5.2) g/dL Globulin (1.3-4.6) g/dL Urine Color Yellow (Yellow) Urine Appearance Sl cloudy A (CLEAR) Urine pH 5 (5-7) Ur Specific Gravit y 1.020 (1.005-1.030) Urine Protein Neg (Negative) Urine Glucose (UA) Norm (Normal) Urine Ketones Negative (Negative) Urine Blood Trace H (Negative) Urine Nitrate Negative (Negative) Urine Bilirubin Neg (NEGATIVE) Urine Urobilinogen Norm (Negative) mg/dL Ur Leukocyte Carlyn ase Negative (Negative) Urine RBC 5-10 H (0-2) /hpf Urine WBC None (0-5) /hpf Ur Squamous Epith Cells 0-4 H (0-5) Urine Bacteria None (NONE) Hyaline Casts 5-10 H Urine Mucus 4+ Discharge Plan Discharge Patient Disposition: Transfer to ED Clinical Impression: Closed flail chest Prescriptions: No Action polyethylene glycol 3350 [Miralax] 17 gram/dose powder 17 gm PO DAILY PRN (Reason: Constipation) RF: 0 fluoxetine 10 mg capsule 10 mg PO DAILY RF: 0 levothyroxine 50 mcg capsule 50 mcg PO DAILY RF: 0 rosuvastatin [Crestor] 10 mg tablet 10 mg PO DAILY RF: 0 carbidopa-levodopa 10-100 mg tablet,disintegrating 1 tab PO BID RF: 0 tolterodine 2 mg tablet 2 mg PO BID RF: 0 potassium chloride [Klor-Con 10] 10 mEq tablet extended release 20 meq PO BID RF: 0 isosorbide mononitrate 60 mg tablet extended release 24 hr 60 mg PO DAILY RF: 0 sennosides-docusate sodium 8.6-50 mg Tablet 2 tab PO BID Qty: 120 RF: 0 warfarin 1 mg tablet See Rx Instructions .ROUTE .COMPLEX RF: 0 Dexilant 30 mg capsule,biphase delayed releas 30 mg PO DAILY Qty: 30 RF: 0 ferrous gluconate 324 mg (37.5 mg iron) tablet 324 mg PO BID Qty: 60 RF: 0 metoprolol tartrate 25 mg Tablet 25 mg PO Q12H Qty: 60 RF: 0 bumetanide 2 mg tablet 2 mg PO DAILY Qty: 30 RF: 0 Referrals: Michael Hampton DO [Primary Care Provider] - Interventions: ED Discharge Assessment Last Done: 03/13/20 14:56 ED Charges Last Done: 03/13/20 15:16 Discharge Date/Time: 03/13/20 16:00 Coding Level of Care Code ED Inside Polisher for Chg Fwd Exam Comprehensive
--- NOTE | 2020-03-13 13:41 | CT_ITS ---
WS: [id number] CT HEAD NONCONTRAST HISTORY: trauma TECHNIQUE: Contiguous axial imaging performed through the brain in 2.5 mm imaging. Bone and soft tiss ue windows. Sagittal and coronal reformats reviewed. All CT scans at [facility] use at ast one of these dose optimization techniques: automated exposure control; mA and/or kV adjustment pe r patient size (includes targeted exams where dose is matched to clinical indication); or iterative r econstruction. DLP: 747.66 mGy.cm COMPARISON: 09/28/2016 No acute intracranial hemorrhage, midline shift or mass effect. Mild atrophy and mild chronic ischemic disease. Ventricles: Normal size with no hydrocephalus. Paranasal sinuses: Mild mucoperiosteal thickening in the ethmoid air cells. No air-fluid levels. Mastoid air cells: Well pneumatized. Calvarium and scalp: Skull is intact with no soft tissue edema or swelling. CT/CT head wo con* [id number] IMPRESSION: No acute intracranial hemorrhage or edema. Mild atrophy.
--- NOTE | 2020-03-13 13:41 | CT_ITS ---
WS: [id number] CT CERVICAL SPINE HISTORY: trauma TECHNIQUE: Contiguous 2.5 mm axial imaging performed through the entire cervical spine. Sagittal and coronal reformats also performed. All CT scans at use at least one of these do se optimization techniques: automated exposure control; mA and/or kV adjustment per patient size (inc ludes targeted exams where dose is matched to clinical indication); or iterative reconstruction. DLP: 545.1 mGy.cm COMPARISON: None available. Patient is intubated. There is a nasogastric tube present. Biapical pleural thickening greatest on th e RIGHT. Increase in cervical lordosis. Mild disc space narrowing at all levels. No fractures identified. Cran iocervical junction, lateral masses of C1 and C2 are intact. Odontoid process is normal. Multilevel facet joint arthritis. Central disc protrusion at C2-3. Osteophytic ridging with facet brigido nt arthritis throughout the remaining cervical spine. No acute-appearing disc protrusions or signific ant central stenosis. Moderate LEFT foraminal stenosis at C5-6 and C6-7. Subcentimeter LEFT thyroid nodule. CT/CT cervical spin wo con* [id number] IMPRESSION: 1. No cervical spine fracture. 2. Multilevel facet joint arthritis with stenoses as above. 3. Endotracheal and nasogastric tubes are noted.
--- NOTE | 2020-03-13 13:41 | CT_ITS ---
WS: [id number] CT CHEST, ABDOMEN AND PELVIS WITH CONTRAST HISTORY: trauma TECHNIQUE: Contiguous 5 mm axial imaging performed through the chest, abdomen and pelvis with IV cont rast, oral contrast has been provided. Coronal and sagittal reformats chest. Coronal and sagittal ref ormats through the abdomen and pelvis. All CT scans at [facility] use at least one of the se dose optimization techniques: automated exposure control; mA and/or kV adjustment per patient size (includes targeted exams where dose is matched to clinical indication); or iterative reconstruction. CONTRAST: Omnipaque 300; 95 mL IV. DLP: 1803.35 mGy.cm COMPARISON: 12/11/[address]: Endotracheal tube and nasogastric tubes are in good position. Pleural thickening at the RIG HT apex. Dependent changes posteriorly in the lower lobes. Small LEFT pleural effusion with LEFT basi lar atelectasis. There is some very mild increased density within the effusion minimally displaced po sterior rib fractures from the seventh of the 10th rib. Eighth and ninth rib fractures are displaced the width of the rib. Ninth and 10th ribs are fractured in [address]. Moderate enlargement the cardiac chambers. Most significant enlargement of the LEFT atrium. No adenop athy. Atherosclerosis aorta. No pneumothorax. Abdomen CT: Periportal edema with no liver or spleen laceration. There is a very small cleft along th e superior surface of the spleen. Believe this is probably a normal variation. Common bile duct is mi ldly dilated which is probably physiologic and similar to prior studies. No adrenal mass. Cortical at rophy of each kidney with small cortical hypodensities which are too small to characterize. Extensive atherosclerosis aorta with no aneurysm. No mesenteric hematoma or fluid. Visualized GI tract is nega tive for any acute process. Diverticulosis in the descending and sigmoid colon. Pelvic CT: No free fluid or adenopathy. Lam catheter present in the urinary bladder. There is a loo p of small bowel which extends into a patent RIGHT inguinal canal. This loop of small bowel is not ob structed. Similar findings were noted on the prior CT of 12/11/2019. Bones are diffusely osteopenic. Increase in thoracic kyphosis. No spine fractures are appreciated. No pelvic fracture or hip fracture. CT/CT chest abd pel w con* IMPRESSION: 1. Small LEFT hemothorax with LEFT basilar atelectasis. No pneumothorax. 2. Multiple left-sided rib fractures. Rib fractures extend from the seventh to the 10th rib. The ninth and 10th ribs are fractured in 2 separate places and t he ribs are slightly displaced. 3. Cardiomegaly. 4. No splenic or hepatic injury. There is a small cleft along the superior salima face of the spleen which is a normal variant and was present on the prior stud y. 5. Sigmoid diverticulosis without acute diverticulitis. 6. Endotracheal and nasogastric tubes are in good position. 7. RIGHT inguinal hernia contains a nondilated loop of small bowel.
[2020-03-13] MEDS: iohexol 300 mg/mL 100 mL Btl IV (14:38)
[2020-03-13 15:19] LABS: Add Urine Microscopic? YES; Bilirubin Urine Neg (NEGATIVE); Blood Urine Trace (Negative); Glucose Urine UA Norm (Normal); Ketones Urine Negative (Negative); Leukocyte Esterase Urine Negative (Negative); Nitrate Urine Negative (Negative); Protein Urine Neg (Negative); Urine Color Yellow (Yellow); Urobilinogen Urine Norm (Negative); pH Urine 5 (5-7)
[2020-03-13 15:20] LABS: Add Urine Culture? No; Mucus Urine 4+; Squamous Epithelial Cell Urine 0-4 (0-5)
[2020-03-13 15:27] LABS: ABG PH Result 7.33 (7.35-7.45); Alveolar-Arterial Oxygen Gradi 107.1 mmHg (5-10); Arterial Blood Gas Hematocrit 32.2 % (37-47); Base Excess ABG 6.7 mmol/L (-2.0-2.0); Blood Gas Allen Test Pos; Blood Gas Sample Site Brachial, right; Blood Gas Sample Type Arterial; Blood Gas Tidal Volume 0.32; Carboxyhemoglobin 1.2 %THgb (0.4-20.1); HCO3 ABG 34.1 mmol/L (22-26); HGB O2 Sat 96.1 % (95-100); Ionized Calcium Level - ABG 1.1 mmol/L (1.1-1.4); Methemoglobin 0.8 % (0.4-1.5); Oxygen Device VENT; Oxygen Saturation ABG 98.2; PO2 ABG 96.6 mmHg (80.0-100.0); Potassium Level - ABG 4.2 mmol/L (3.5-5.0); Total Hemoglobin 10.5 g/dL (12-16)
[2020-03-13 15:28] LABS: ABG PCO2 64.5 mmHg (35-45)
[2020-03-13] MEDS: sodium chlor 0.9% + KCl 20 mEq 20 MEQ/1,000 ML BAG 125 MEQ IV (15:38)
== END 2020-03-13 16:00 ==
PROVIDERS: Emergency Provider Family Medicine; PCP Family Medicine
DX: S22.5XXA Flail chest, initial encounter for closed fracture (principal); W19.XXXA Unspecified fall, initial encounter; I48.91 Unspecified atrial fibrillation; J44.9 Chronic obstructive pulmonary disease, unspecified; I11.0 Hypertensive heart disease with heart failure; I50.30 Unspecified diastolic (congestive) heart failure; G20 Parkinson's disease
CPT/HCPCS: 12345; 31500; 36600; 51702; 70450; 71045; 71260; 72125; 74177; 80051; 80053; 81001; 82810; 83986; 85025; 85610; 94002; 94799; 96365; 96374; 96375; 99284; 99291; J0330; J2270; J2405; J2704; J3490; J7040; Q9967

== ENCOUNTER 2020-04-08 17:51 | Outpatient (CLI) | payer MEDICARE, MEDICAID, SELFPAY ==
[2020-04-08 19:29] LABS: INR 5.84 (0.8-1.2)
--- NOTE | 2020-04-14 08:10 | PC.SOCIAL ---
Clarified with Maryellen at [facility] that INR levels are being followed and addressed by provider at facility. Dr Fox notified.
== END 2020-04-08 17:52 | disposition home or self-care (01) ==
LOC: LAB 17:54
PROVIDERS: Internal Medicine; PCP Family Medicine; Visit Provider Nurse Practitioner Family
DX: Z79.01 Long term (current) use of anticoagulants (principal); Z95.2 Presence of prosthetic heart valve
CPT/HCPCS: 85610

== ENCOUNTER 2020-04-16 11:38 | Inpatient (IN) | payer MEDICARE, MEDICAID, SELFPAY ==
[2020-04-16] VITALS (24 sets, daily range): BP systolic 100–128; BP diastolic 33–59; PULSE 59–88; RESP 13–35; TEMP 36.4–37.1; O2SAT 90–100; BMI 32.2
--- NOTE | 2020-04-16 11:55 | ECG_ITS ---
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 Measurements Intervals [place] Rate: 71 P: VT: -1 QRS: 25 QRSD: 96 T: 19 QT: 419 QTc: 457 Interpretive Statements ATRIAL FIBRILLATION MINIMAL ST DEPRESSION Compared to ECG 02/25/2020 16:33:47 Intraventricular conduction delay no longer present ST (T wave) deviation still present Electronically Signed On 04-16-2020 16:16:20 CDT by Tere Teixeira M.D. [id number]
--- NOTE | 2020-04-16 11:55 | XR_ITS ---
WS: [id number] XR chest 1V portable [id number] REASON FOR EXAM: sob FINDINGS: Comparisons were made to March 13, 2020. There is small amounts of bilateral pleural effusion now seen. There is mitral valve replacement. There is sternotomy changes seen. There is chronic interstitial findings bilateral similar to the previous exam. XR/XR chest 1V portable [id number] IMPRESSION: Small amounts of bilateral pleural effusion Mitral valve replacement Chronic changes both lung mckeon
--- NOTE | 2020-04-16 12:08 | ED_ITS ---
HPI - SOB/Dyspnea General: Chief Complaint: Shortness of Breath/Dyspnea Stated Complaint: sob Time Seen by Provider: 04/16/20 11:57 Source: patient Mode of arrival: ambulatory Limitations: no limitations History of Present Illness: HPI Narrative: 79-year-old female with COPD and CHF who just got senior care yesterday. Patient states she has been having weakness and shortness of breath for 4 to 5 days and has had difficulty getting around. She denies any fevers. Patient denies any worsening or improving factors. Patient wears 2 L of oxygen at home and is satting 100% here on 2 L. MD elicited complaint: shortness of breath Associated symptoms: Deny abdominal pain, chest pain, fever(s), nausea or vomiting Review of Systems Const: Denies: fever(s), chills, body aches or change in appetite Eyes: Denies: blurry vision or eye discomfort ENMT: Denies: throat pain or dental pain Card: Denies: chest pain Resp: Reports: dyspnea GI: Denies: abdominal pain, nausea, vomiting or diarrhea : Denies: dysuria Musc: Denies: neck pain or back pain Skin/Breast: Denies: rash Neuro: Denies: headache(s) Psych: Denies: depression Jesus Alberto/Lymph: Denies: easy bruising All/Imm: Denies: urticaria PFSH ED PFSH: Medical History Afib Diltiazem discontinued. Metoprolol increased. Chronic anticoagulation Due to mechanical mitral valve; coumadin Chronic hypercapnic respiratory failure Home oxygen evaluation prior to discharge. COPD (chronic obstructive pulmonary disease) Former smoker, occasional use of breathing treatments Depression On fluoxetine with good control Diastolic CHF GERD (gastroesophageal reflux disease) PPI HTN (hypertension) Hypothyroidism Iron deficiency anemia Has required transfusion in past, last egd and colonoscopy ~2017 with diverticulosis and internal hemorrhoids, no clear source of bleeding SONYA (obstructive sleep apnea) Uses 2 L of oxygen at night does not use CPAP Parkinson disease Sinimet Schatzki's ring Surgical History History of bilateral tubal ligation History of cholecystectomy History of total knee arthroplasty Left Mitral valve replaced Mechanical, on coumadin Family History Mother CAD (coronary artery disease) Diabetes Other Hypertension Social History Smoking and tobacco status: former smoker Alcohol intake: never Household members: spouse Housing: House Physical Exam Const: COMMON NORMALS: no acute distress, patient oriented x3 and healthy appearing HENMT: COMMON NORMALS: normocephalic and atraumatic HEAD & SCALP: normocephalic and atraumatic Eye: COMMON NORMALS: Equal, round and reactive pupils present and EOMs intact bilaterally PUPIL: Yes Equal, round and reactive pupils present Neck/C-Spine: COMMON NORMALS: full ROM and supple Chest: COMMONS NORMALS: normal inspection of the chest and normal palpation of entire chest wall Resp: COMMON NORMALS: normal respiratory effort, No retractions and No use of accessory muscles AUSCULTATION: rales Cardio: COMMON NORMALS: regular rate, regular rhythm and No murmurs present (Cardio) RATE: regular rate RHYTHM: regular rhythm GI: COMMON NORMALS: Normal to inspection, nondistended, normoactive bowel sounds present, Soft to palpation, non-tender and no masses PALPATION: Yes Soft to palpation Extremity: COMMON NORMALS: normal to inspection and full ROM Neuro: COMMON NORMALS: patient oriented x3, moves all extremities and no focal motor deficits Psych: COMMON NORMALS: mental status grossly normal, Normal thought process present and cooperative THOUGHT PROCESS: Normal thought process present Skin: COMMON NORMALS: no rashes or lesions noted and no wounds GENERAL SKIN EXAM: no rashes or lesions noted Course Vital Signs: Vital signs: Vital Signs Temperature 98.2 F 04/16/20 11:55 Pulse Rate 71 04/16/20 13:01 Respiratory Rate 35 H 04/16/20 13:01 Blood Pressure 116/59 04/16/20 13:01 Pulse Oximetry 100 04/16/20 13:01 MDM - SOB/Dyspnea MDM Narrative: Medical decision making narrative: Iris presents here with weakness likely from her anemia. Patient's anemia is likely chronic as her vitals here have been stable. She has no signs of bleeding at this time. Patient transfused I spoke to hospitalist will admit. Lab Data: Labs: Lab Results 04/16/20 04/16/20 04/16/20 Range/Units 12:03 12:03 12:03 WBC 3.4 L (4.0-10.0) 10^3/ uL RBC 2.10 L (4.1-5.3) 10^6/u L Hgb 4.9 L* (11.5-15.3) g/dL Hct 19.1 L* (37.0-47.0) % MCV 91.0 (81-99) fL MCH 23.3 L (28.0-34.0) pg MCHC 25.7 L (30.0-36.0) g/dL RDW 19.4 H (12.1-15.1) % Plt Count 198 (130-400) 10^3/c mm MPV 9.7 (7.4-10.4) fL Neut % (Auto) 75.9 % Lymph % (Auto) 12.6 % [place] % (Auto) 10.3 % Eos % (Auto) 0.0 % Baso % (Auto) 0.6 % Reticulocyte % (Au to) % Neut # (Auto) 2.6 (1.8-7.7) 10^3/u L Lymph # (Auto) 0.4 L (0.8-4.8) 10^3/u L [place] # (Auto) 0.4 (0.2-0.9) 10^3/u L Eos # (Auto) 0.0 (0.0-0.8) 10^3/u L Baso # (Auto) 0.0 (0.0-0.1) 10^3/u L Nucleated RBC % (a uto) 0.6 % Nucleated RBCs # 0.0 /100WBC PT 42.80 H (10.5-13.3) SECO NDS INR 4.29 H (0.8-1.2) Specimen Type Sample Site ABG pH (7.35-7.45) ABG pCO2 (35-45) mmHg ABG pO2 (80.0-100.0) mmH g ABG HCO3 (22-26) mmol/L ABG Base Excess (-2.0-2.0) mmol/ L César Test Hematocrit (37-47) % O2 Delivery Device O2 Liters/Min % [employer] Manager ID Sodium 142 (136-145) mmol/L Potassium 4.3 (3.5-5.1) mmol/L Chloride 95 L (98-107) mmol/L Carbon Dioxide 39 H (22-29) mmol/L Anion Gap 12.3 (5-19) BUN 13 (8-23) mg/dL Creatinine 0.7 (0.5-0.9) mg/dL Glucose 111 (65-115) mg/dL Calculated Osmolal ity 291 (285-295) mOsm/k g Calcium 8.2 L (8.5-10.5) mg/dL Total Bilirubin 1.5 H (0.15-1.2) mg/dL AST 8 (0-32) U/L ALT < 5 (0-33) U/L Alkaline Phosphata se 119 H (35-105) IU/L NT-Pro-B Natriuret Pep 2542 H (0-450) pg/mL Total Protein 6.5 L (6.6-8.7) g/dL Albumin 3.9 (3.5-5.2) g/dL Globulin 2.6 (1.3-4.6) g/dL Urine Color (Yellow) Urine Appearance (CLEAR) Urine pH (5-7) Ur Specific Gravit y (1.005-1.030) Urine Protein (Negative) Urine Glucose (UA) (Normal) Urine Ketones (Negative) Urine Blood (Negative) Urine Nitrate (Negative) Urine Bilirubin (NEGATIVE) Urine Urobilinogen (Negative) mg/dL Ur Leukocyte Carlyn ase (Negative) Blood Type Rho(D) Type Antibody Screen Crossmatch 04/16/20 04/16/20 04/16/20 Range/Units 12:03 12:35 13:00 WBC (4.0-10.0) 10^3/ uL RBC (4.1-5.3) 10^6/u L Hgb (11.5-15.3) g/dL Hct (37.0-47.0) % MCV (81-99) fL MCH (28.0-34.0) pg MCHC (30.0-36.0) g/dL RDW (12.1-15.1) % Plt Count (130-400) 10^3/c mm MPV (7.4-10.4) fL Neut % (Auto) % Lymph % (Auto) % [place] % (Auto) % Eos % (Auto) % Baso % (Auto) % Reticulocyte % (Au to) 2.8400 % Neut # (Auto) (1.8-7.7) 10^3/u L Lymph # (Auto) (0.8-4.8) 10^3/u L [place] # (Auto) (0.2-0.9) 10^3/u L Eos # (Auto) (0.0-0.8) 10^3/u L Baso # (Auto) (0.0-0.1) 10^3/u L Nucleated RBC % (a uto) % Nucleated RBCs # /100WBC PT (10.5-13.3) SECO NDS INR (0.8-1.2) Specimen Type Arterial Sample Site Radial, right ABG pH 7.41 (7.35-7.45) ABG pCO2 65.1 H* (35-45) mmHg ABG pO2 68.8 L (80.0-100.0) mmH g ABG HCO3 40.9 H (22-26) mmol/L ABG Base Excess 14.8 H (-2.0-2.0) mmol/ L César Test Pos Hematocrit 18.7 L (37-47) % O2 Delivery Device Nc O2 Liters/Min 2.0 % [employer] Manager ID [id number] Sodium (136-145) mmol/L Potassium (3.5-5.1) mmol/L Chloride (98-107) mmol/L Carbon Dioxide (22-29) mmol/L Anion Gap (5-19) BUN (8-23) mg/dL Creatinine (0.5-0.9) mg/dL Glucose (65-115) mg/dL Calculated Osmolal ity (285-295) mOsm/k g Calcium (8.5-10.5) mg/dL Total Bilirubin (0.15-1.2) mg/dL AST (0-32) U/L ALT (0-33) U/L Alkaline Phosphata se (35-105) IU/L NT-Pro-B Natriuret Pep (0-450) pg/mL Total Protein (6.6-8.7) g/dL Albumin (3.5-5.2) g/dL Globulin (1.3-4.6) g/dL Urine Color (Yellow) Urine Appearance (CLEAR) Urine pH (5-7) Ur Specific Gravit y (1.005-1.030) Urine Protein (Negative) Urine Glucose (UA) (Normal) Urine Ketones (Negative) Urine Blood (Negative) Urine Nitrate (Negative) Urine Bilirubin (NEGATIVE) Urine Urobilinogen (Negative) mg/dL Ur Leukocyte Carlyn ase (Negative) Blood Type A Positive Rho(D) Type Positive Antibody Screen Negative Crossmatch See Detail 04/16/20 Range/Units 13:22 WBC (4.0-10.0) 10^3/ uL RBC (4.1-5.3) 10^6/u L Hgb (11.5-15.3) g/dL Hct (37.0-47.0) % MCV (81-99) fL MCH (28.0-34.0) pg MCHC (30.0-36.0) g/dL RDW (12.1-15.1) % Plt Count (130-400) 10^3/c mm MPV (7.4-10.4) fL Neut % (Auto) % Lymph % (Auto) % [place] % (Auto) % Eos % (Auto) % Baso % (Auto) % Reticulocyte % (Au to) % Neut # (Auto) (1.8-7.7) 10^3/u L Lymph # (Auto) (0.8-4.8) 10^3/u L [place] # (Auto) (0.2-0.9) 10^3/u L Eos # (Auto) (0.0-0.8) 10^3/u L Baso # (Auto) (0.0-0.1) 10^3/u L Nucleated RBC % (a uto) % Nucleated RBCs # /100WBC PT (10.5-13.3) SECO NDS INR (0.8-1.2) Specimen Type Sample Site ABG pH (7.35-7.45) ABG pCO2 (35-45) mmHg ABG pO2 (80.0-100.0) mmH g ABG HCO3 (22-26) mmol/L ABG Base Excess (-2.0-2.0) mmol/ L César Test Hematocrit (37-47) % O2 Delivery Device O2 Liters/Min % [employer] Manager ID Sodium (136-145) mmol/L Potassium (3.5-5.1) mmol/L Chloride (98-107) mmol/L Carbon Dioxide (22-29) mmol/L Anion Gap (5-19) BUN (8-23) mg/dL Creatinine (0.5-0.9) mg/dL Glucose (65-115) mg/dL Calculated Osmolal ity (285-295) mOsm/k g Calcium (8.5-10.5) mg/dL Total Bilirubin (0.15-1.2) mg/dL AST (0-32) U/L ALT (0-33) U/L Alkaline Phosphata se (35-105) IU/L NT-Pro-B Natriuret Pep (0-450) pg/mL Total Protein (6.6-8.7) g/dL Albumin (3.5-5.2) g/dL Globulin (1.3-4.6) g/dL Urine Color Yellow (Yellow) Urine Appearance Clear (CLEAR) Urine pH 7 (5-7) Ur Specific Gravit y 1.010 (1.005-1.030) Urine Protein Neg (Negative) Urine Glucose (UA) Norm (Normal) Urine Ketones Negative (Negative) Urine Blood Neg (Negative) Urine Nitrate Negative (Negative) Urine Bilirubin Neg (NEGATIVE) Urine Urobilinogen Neg (Negative) mg/dL Ur Leukocyte Carlyn ase Negative (Negative) Blood Type Rho(D) Type Antibody Screen Crossmatch Imaging Data^: CXR: Radiologist's impression: [address] [address] XRay Report Signed Patient: Iris Garcia Unit #: [id number] : 1940 Age/Sex: 79 / F ADM Date: 04/16/20 Loc: ER Room/Bed: Attending Dr: Ordering Provider/Ordering MD: James Adrian MD Date of Service: 04/16/20 Procedure(s): XR chest 1V portable [id number] Accession Number(s): [id number] Report Number: [id number] WS: [id number] XR chest 1V portable [id number] REASON FOR EXAM: sob FINDINGS: Comparisons were made to March 13, 2020. There is small amounts of bilateral pleural effusion now seen. There is mitral valve replacement. There is sternotomy changes seen. There is chronic interstitial findings bilateral similar to the previous exam. XR/XR chest 1V portable [id number] IMPRESSION: Small amounts of bilateral pleural effusion Mitral valve replacement Chronic changes both lung mckeon EKG Data^: EKG 1: Attestation: I personally reviewed and interpreted this EKG as follows: EKG Interpretation Date: 04/16/20 EKG interpretation time: 12:04 Interpretation: afib hr [address] or t wave abnormalities qrs 96 qtc 441 Discharge Plan Discharge Patient Disposition: Admitted As Inpatient Clinical Impression: Anemia, Weakness Condition: Stable Prescriptions: No Action polyethylene glycol 3350 [Miralax] 17 gram/dose powder 17 gm PO DAILY PRN (Reason: Constipation) RF: 0 fluoxetine 10 mg capsule 10 mg PO DAILY RF: 0 levothyroxine 50 mcg capsule 50 mcg PO DAILY RF: 0 rosuvastatin [Crestor] 10 mg tablet 10 mg PO DAILY RF: 0 carbidopa-levodopa 10-100 mg tablet,disintegrating 1 tab PO BID RF: 0 tolterodine 2 mg tablet 2 mg PO BID RF: 0 potassium chloride [Klor-Con 10] 10 mEq tablet extended release 20 meq PO DAILY RF: 0 isosorbide mononitrate 60 mg tablet extended release 24 hr 60 mg PO DAILY RF: 0 sennosides-docusate sodium 8.6-50 mg Tablet 2 tab PO BID Qty: 120 RF: 0 warfarin 1 mg tablet See Rx Instructions .ROUTE .COMPLEX RF: 0 Dexilant 30 mg capsule,biphase delayed releas 30 mg PO DAILY Qty: 30 RF: 0 ferrous gluconate 324 mg (37.5 mg iron) tablet 324 mg PO BID Qty: 60 RF: 0 metoprolol tartrate 25 mg Tablet 25 mg PO Q12H Qty: 60 RF: 0 Referrals: Michael Hampton DO [Primary Care Provider] - Coding Level of Care Code ED Lsw for Chg Fwd Exam Comprehensive
[2020-04-16 12:19] LABS: Basophils % 0.6 %; Lymphocytes # 0.4 10^3/uL (0.8-4.8); Lymphocytes % 12.6 %; Mean Corpuscular HGB Conc 25.7 g/dL (30.0-36.0); Mean Corpuscular Hemoglobin 23.3 pg (28.0-34.0); Mean Platelet Volume 9.7 fL (7.4-10.4); Monocytes # 0.4 10^3/uL (0.2-0.9); Monocytes % 10.3 %; Neutrophils # 2.6 10^3/uL (1.8-7.7); Neutrophils % 75.9 %; Nucleated Red Blood Cells % 0.6 %; Platelet Count 198 10^3/cmm (130-400); Red Cell Distribution Width 19.4 % (12.1-15.1); White Blood Count 3.4 10^3/uL (4.0-10.0)
[2020-04-16] MEDS: ipratropium-albuterol 3 mL Neb INHALATION ×2 (12:35→21:24)
[2020-04-16 12:47] LABS: ABG PCO2 65.1 mmHg (35-45); ABG PH Result 7.41 (7.35-7.45); Arterial Blood Gas Hematocrit 18.7 % (37-47); Base Excess ABG 14.8 mmol/L (-2.0-2.0); Blood Gas Allen Test Pos; Blood Gas Sample Site Radial, right; Blood Gas Sample Type Arterial; HCO3 ABG 40.9 mmol/L (22-26); Oxygen Device NC; PO2 ABG 68.8 mmHg (80.0-100.0)
[2020-04-16 12:48] LABS: Alanine Aminotransferase < 5 U/L (0-33); Albumin Level 3.9 g/dL (3.5-5.2); Alkaline Phosphatase 119 IU/L (35-105); Anion Gap 12.3 (5-19); Aspartate Amino Transferase 8 U/L (0-32); Blood Urea Nitrogen 13 mg/dL (8-23); Calcium 8.2 mg/dL (8.5-10.5); Carbon Dioxide 39 mmol/L (22-29); Chloride 95 mmol/L (98-107); Globulin 2.6 g/dL (1.3-4.6); Glucose 111 mg/dL (65-115); NT Pro B Type Natriuretic Pept 2542 pg/mL (0-450); Osmolality Calculated 291 mOsm/kg (285-295); Potassium 4.3 mmol/L (3.5-5.1); Sodium 142 mmol/L (136-145); Total Bilirubin 1.5 mg/dL (0.15-1.2); Total Protein 6.5 g/dL (6.6-8.7)
[2020-04-16 12:50] LABS: INR 4.29 (0.8-1.2)
[2020-04-16 12:51] LABS: Hematocrit 19.1 % (37.0-47.0); Hemoglobin 4.9 g/dL (11.5-15.3)
--- NOTE | 2020-04-16 13:20 | PC.NURSE ---
pt *2 assist for help to bedside commode. pt exhibits moderate-severe weakness
[2020-04-16 13:29] LABS: Add Urine Microscopic? NO
[2020-04-16 13:32] LABS: Bilirubin Urine Neg (NEGATIVE); Blood Urine Neg (Negative); Glucose Urine UA Norm (Normal); Ketones Urine Negative (Negative); Nitrate Urine Negative (Negative); Protein Urine Neg (Negative); Urine Appearance Clear (CLEAR); Urine Color Yellow (Yellow); Urobilinogen Urine Neg (Negative); pH Urine 7 (5-7)
[2020-04-16 13:33] LABS: Leukocyte Esterase Urine Negative (Negative)
--- NOTE | 2020-04-16 13:34 | CT_ITS ---
WS: [id number] Examination: CT of the chest, abdomen, pelvis HISTORY: Previous trauma. TECHNIQUE: Patient was scanned with Omnipaque 300, 95 mL. FINDINGS: The chest was evaluated 3 mm sections. The pulmonary arteries fill readily with no filling defects to suggest thromboembolic disease. There is prominent bilateral pleural effusion present. The rib fractures previously described are not well seen on the right there is evidence of fractures on the left side of the ninth and 10th ribs. T hese are healing. The aorta was normal as well as the heart chambers. The ventricles are slightly prominent. The visible thoracic spine shows marked degenerate changes but no fractures are noted. There is sternotomy changes seen. Both shoulders appear to be normal. The clavicles were normal. CT of the abdomen and pelvis the liver appears to show normal appearance no definite lacerations or f illing defects are seen. The spleen was normal. On previous exam a cleft in the spleen was noted this is not well seen today. The stomach was normal. The pancreas show no abnormalities. The gallbladder is not seen. Both kidneys and ureters appear to be normal. The colon otherwise was within normal limits. The small bowel showed no abnormalities. The descending colon and sigmoid colon show extensive diverticulosis no diverticulitis. The urinary bladder is normal A small uterus is seen no adnexal masses are noted. In the right inguinal hernias seen today there is no bowel in the hernia seen. The bony pelvis shows normal hips bilaterally no fractures were noted. The lumbar spine shows mild osteoarthritic changes but there is no evidence of fractures seen. CT/CT chest abd pel w con* Impression: There is bilateral pleural effusion seen. Arteriosclerotic changes in the coronary arteries. The spleen was normal. The fractures of the ninth and 10th rib on the left are seen in the right rib f ractures are not well identified today. Extensive diverticulosis of the descending sigmoid colon. There is cardiomegaly present.
[2020-04-16] MEDS: iohexol 300 mg/mL 100 mL Btl IV (14:24)
--- NOTE | 2020-04-16 14:31 | P.HP_ITS ---
Providers/Chief Complaint Primary Care Provider: Michael Hampton DO Chief Complaint: sob History of Present Illness Iris Garcia is a 79 year old female with past medical history of microcytic hypochromic anemia because of iron deficiency, mitral valve stenosis post mechanical [facility] mitral valve replacement, atrial fibrillation, on Coumadin chronically, recurrent/chronic anemia requiring frequent RBC transfusion, diastolic congestive heart failure, Parkinson's disease. She follows up with Dr. Bullock for chronic anemia for which no aberrant reason has been found and is most likely because of small GI ooze along with possible myelodysplasia for which she is never been worked up because of her advanced age. She had panendoscopy done 3 years ago and her colonoscopy only revealed a small cecal polyp which was removed and her EGD revealed a small hiatal hernia and a mild Schatzki's ring, but no evidence of any source of blood loss. Patient underwent capsule endoscopy at [facility] in May 2019 as per the rec ord in the system the study was not complete as the capsule did not travel fast enough but did not show any active bleed. Most of the history is given by the daughter bedside confirmed by patient he rself. Patient was apparently admitted at [facility] earlier in the month after she had had a fall and was apparently in the ICU on ventilator for 7 days found to have multiple rib fractures and was discharged to [facility]. Patient was discharged from [facility] 2 days ago and since then has been having increasing weakness and difficulty in breathing. Family also gives history that nurse from [facility] had called stating her INR was high and was advised not to take Coumadin so has not been taking Coumadin for last 2 days. As per them all of the medications have remained the same. They are not really sure about diuretics as well. Patient states she is feeling a lot better since she is been in the ER but has been having difficulty in breathing along with feeling drained and fatigued for around a week. She denies of having any hematemesis, melena, bleeding from anywhere, any recurrent falls since being at [facility]. Her last bowel movement was yesterday which was soft brown in color and as per the patient was not melanotic. She denies any use of recent pain medications, epigastric pain, change in her dose of warfarin. Patient denies of having any fever, flulike symptoms, cough, dysuria, palpitation, dizziness or weakness in any of her arms. On conversation with nurse at [facility] she states patient was checked for COVID-19 twice last week and both results came back negative. She did tell that her INR was high so patient was asked not to take Coumadin 2 days ago. As patient has been discharged from the system they cannot tell me exactly what dose of Coumadin patient was on. In ER patient's blood work showed white count of 3.4, hemoglobin of 4.9, platelet of 198, INR of 4.2 ABG shows a PCO2 of 65 with baseline PCO2 around 65 as well, a sodium of 142, chloride of 95, bicarb of 39 which seems to be at its baseline, creatinine of 0.7, bilirubin of 1.5 which is also at baseline, alkaline phosphatase of 119 which is actually better than before. She was ordered 2 units of transfusion and hospital service was requested for further evaluation and treatment. Review of Systems Const: Denies: fever(s), chills, body aches, change in appetite, malaise, night sweats, diaphoresis, change in sleep pattern, daytime sleepiness or snoring Eyes: Denies: change in vision, blurry vision, photophobia, eye discomfort or eye discharge ENMT: Denies: throat pain, enlarged tonsils, hoarseness, mouth pain, oral sores, dry mouth, tinnitus, nasal congestion or post nasal drip Card: Reports: orthopnea; Denies: chest pain, palpitations, swelling of feet/ankles, lightheadedness, syncope, pre-syncope, dyspnea on exertion, leg pain with exertion or acrocyanosis Resp: Reports: dyspnea and pain on inspiration; Denies: productive cough, non-productive cough, wheezing, stridor, change in phlegm color, hemoptysis or chest congestion GI: Reports: nausea and diarrhea; Denies: abdominal pain, vomiting, hematemesis, coffee ground emesis, dysphagia, heartburn, constipation, bloating, GI cramping, change in bowel habits, pain on defecation, hematochezia or melena : Denies: flank pain, dysuria, urinary frequency, urinary urgency, urinary hesitancy, nocturia or hematuria Musc: Denies: neck pain, back pain, extremity pain, joint pain, joint swelling, joint redness, joint stiffness or limited range of motion Neuro: Denies: headache(s), numbness in extremities, weakness in extremities, sensory changes, lack of coordination, difficulty walking, frequent falls, dizziness, vertigo, confusion, Slurred speech present, difficulty communicating thoughts or seizure-like activity Psych: Denies: anxiety, depression, mood swings, panic attacks, hopelessness or irritability Endo: Denies: polyuria, polydipsia, tired all the time, cold intolerance, excessive sweating, flushing or heat intolerance Jesus Alberto/Lymph: Reports: easy bruising; Denies: easy bleeding All/Imm: Denies: tongue swelling, facial swelling or acute wheezing Medications/Allergies Home Medications Medication Instructions Recorded Confirmed Last Taken Type fluoxetine 10 mg capsule 10 mg PO DAILY cap 11/06/19 04/16/20 04/16/20 History levothyroxine 50 mcg capsule 50 mcg PO DAILY 11/06/19 04/16/20 04/16/20 History polyethylene glycol 3350 17 17 gm PO DAILY PRN 11/06/19 04/16/20 02/25/20 History gram/dose oral powder rosuvastatin 10 mg tablet 10 mg PO DAILY 11/06/19 04/16/20 04/15/20 History isosorbide mononitrate 60 mg PO DAILY 12/12/19 04/16/20 04/16/20 History potassium chloride [Klor-Con 10] 20 meq PO DAILY 12/12/19 04/16/20 04/16/20 H istory sennosides-docusate sodium 2 tab PO BID #120 tab 12/18/19 04/16/20 02/25/20 Rx warfarin See Rx Instructions .ROUTE .COMPLEX 02/25/20 04/16/20 04/14/20 History Dexilant 30 mg PO DAILY #30 cap 02/26/20 04/16/20 04/15/20 Rx ferrous gluconate 324 mg PO BID #60 tab 02/26/20 04/16/20 04/16/20 Rx metoprolol tartrate 25 mg PO Q12H #60 tab 03/01/20 04/16/20 04/16/20 Rx carbidopa 10 mg-levodopa 100 mg 1 tab PO BID tab 03/12/20 04/16/20 04/16/20 History disintegrating tablet tolterodine 2 mg tablet 2 mg PO BID 03/12/20 04/16/20 04/16/20 History Allergies Allergy/AdvReac Type Severity Reaction Status Date / Time penicillin G Allergy UNK Verified 12/11/19 17:02 PFSH Acute PFSH: Medical History Afib Diltiazem discontinued. Metoprolol increased. Chronic anticoagulation Due to mechanical mitral valve; coumadin Chronic hypercapnic respiratory failure Home oxygen evaluation prior to discharge. COPD (chronic obstructive pulmonary disease) Former smoker, occasional use of breathing treatments Depression On fluoxetine with good control Diastolic CHF GERD (gastroesophageal reflux disease) PPI HTN (hypertension) Hypothyroidism Iron deficiency anemia Has required transfusion in past, last egd and colonoscopy ~2017 with diverticulosis and internal hemorrhoids, no clear source of bleeding SONYA (obstructive sleep apnea) Uses 2 L of oxygen at night does not use CPAP Parkinson disease Sinimet Schatzki's ring Surgical History History of bilateral tubal ligation History of cholecystectomy History of total knee arthroplasty Left Mitral valve replaced Mechanical, on coumadin Family History Mother CAD (coronary artery disease) Diabetes Other Hypertension Social History Smoking and tobacco status: former smoker Alcohol intake: never Household members: spouse Housing: House Vitals/I&O/Wt Last Vital Signs Temp 98.2 F 04/16/20 11:55 Pulse 71 04/16/20 13:01 Resp 35 H 04/16/20 13:01 BP 116/59 04/16/20 13:01 Pulse Ox 100 04/16/20 13:01 Weight last 48 hrs Weight 74.843 kg Physical Exam Narrative: EXAM NARRATIVE: General: No acute distress, AO x3, pale, ill-appe aring, frail HEENT: PERRLA, pupils bilaterally equal and reactive Chest: Normal vesicular breath sounds, decreased breath sounds bilaterally at the lower zones, no added sounds, equal good air entry bilaterally CVS: S1-S2 regular, soft pansystolic murmur at the apex, 1 x 6, S3 gallop Abdomen: Soft, nontender, no organomegaly, bowel sounds present Neuro: No focal deficits, no facial deformity, AO x3, power 5/5 in all limbs Data : 04/16/20 12:03 04/16/20 12:03 A&P Assessment and plan (1) Anemia: Status: Acute Qualifiers: Anemia type: unspecified type Qualified Code(s): D64.9 - Anemia, unspecified (2) Supratherapeutic INR: Status: Acute (3) Mitral valve replaced: Status: Acute (4) Afib: Status: Acute Qualifiers: Atrial fibrillation type: longstanding persistent Qualified Code(s): I48.11 - Longstanding persistent atrial fibrillation (5) Diastolic CHF: Status: Acute Qualifiers: Heart failure chronicity: acute on chronic Qualified Code(s): I50.33 - Acute on chronic diastolic (congestive) heart failure (6) COPD (chronic obstructive pulmonary disease): Status: Acute Qualifiers: COPD type: unspecified COPD Qualified Code(s): J44.9 - Chronic obstructive pulmonary disease, unspecified (7) GERD (gastroesophageal reflux disease): Status: Acute (8) Hypothyroidism: Status: Acute (9) Parkinson disease: Status: Acute (10) Chronic anticoagulation: Status: Acute (11) Schatzki's ring: Status: Acute Additional A&P Information Acute anemia: Patient has history of chronic anemia under evaluation. She is followed up with Dr. Bullock in the past. She has got Injectafer in the past as well as per her last was around 5 months ago. She is undergone multiple colonoscopies, endoscopies and a capsule endoscopy without any source of bleeding found with most recent capsule endoscopy done in May 2019. Due to recent history of fall will get CT abdomen chest pelvis to rule out any active bleeding or hematoma. Also check stool for occult blood. Patient states she is okay with endoscopy or colonoscopy at this time if required. CBC done today consistent with severe anemia with microcytic picture We will give 2 units of PRBC milligrams of IV Lasix in between. Check iron panel, reticulocyte count, vitamin B12 and folic acid levels. Hold aspirin but will continue the Coumadin because of history of mechanical mitral valve placement. Patient is hemodynamically stable and not actively bleeding so will not do reversal of therapeutic INR. Patient has history of Schatzki's ring in the endoscopy 3 years ago. We will start patient on Protonix 40 mg IV twice daily for now. Afib: Rate controlled Continue with home dose of metoprolol. Supratherapeutic INR: Goal INR around 2.5-3. Hold Coumadin for now. Check INR daily. If patient's hemoglobin remained stable and once INR is at goal can start the Coumadin again. We will get documents from [facility] and [facility] to see what dose of Coumadin patient was asked. Most likely patient requires 10% less of total dose which she was on at present. History of MVR: Mitral click heard We will give 40 mg of IV Lasix between 2 units of transfusion. We will start on home dose of Lasix from tomorrow morning. History of diastolic heart failure: proBNP elevated at 2500 today. We will give Lasix in between the transfusion. And 40 mg IV twice daily later. Last echo from January 2019 shows an EF of 70% with paradoxical septal motion, RVSP of 45 mmHg, peak mitral valve velocity of 2 ms normal functioning mitral valve, mildly increased right atrial size and moderately increased left atrial size. Repeat echocardiogram. Strict input output charting, daily weights. We will hold off on Imdur for now given low blood pressures. COPD: No exacerbation at present. DuoNeb's every 6 hours. Oxygen supplementation keeping saturation of 90%. We will change medications as per clinical course. Continue chronic home medications like levothyroxine, statins, combination of carbidopa levodopa. Check TSH levels. Discussed in detail with both patient and D POA at bedside regarding CODE STATUS. Patient states he would want everything to be done including chest compressions and intubation if required. She is even okay with colonoscopy and endoscopy baseline if required. Full code. Cardiac low-salt diet. SCDs, avoid any therapeutic anticoagulation for DVT prophylaxis due to supratherapeutic INR and severe anemia. Plan discussed with her POA, Daughter Meghan and she agrees with the same. All questions were answered. We will request documents from [facility] regarding recent hospitalization and documents from [place] regarding the medication list. Attestations Medical Necessity Statement*: More than 2 midnights for acute anemia, supratherapeutic INR Time Spent in Patient Care: Greater than 35 minutes (>than 50% of time spent in counselling and/or direct pt care on unit) . 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
[2020-04-16 15:17] LABS: Iron 78 ug/dL (37-145); Percent Saturation 23.3 % (20-50); Total Iron Binding Capacity 334 mcg/dl; Unsaturated Iron Binding 256 ug/dL (112-347)
[2020-04-16 15:37] LABS: Vitamin B12 344 pg/mL (232-1245)
[2020-04-16 15:38] LABS: Folate Level 10.3 ng/mL (4.8-37.3)
[2020-04-16] MEDS: FUROsemide 10 mg/mL SDV 4mL 40 MG IVP (17:48)
[2020-04-16] MEDS: sodium chloride 0.9% (100 ml) 100 ML (17:49)
[2020-04-16] MEDS: pantoprazole 40 mg SDV IVP (17:49)
--- NOTE | 2020-04-16 18:03 | ECG_ITS ---
[facility] Test Date: 2020-04-16 Pat Name: Iris Garcia Department: Room: 103 Gender: Female [employer]: : 1940 Requested By: Francisco Marino Order Number: [id number] Krupa MD: Tere Teixeira M.D. Measurements Intervals [place] Rate: 70 P: DC: -1 QRS: 39 QRSD: 102 T: -1 QT: 434 QTc: 469 Interpretive Statements ATRIAL FIBRILLATION WITH PREMATURE VENTRICULAR COMPLEXES OR ABBERRENTLY CONDUCTED BEATS MODERATE ST DEPRESSION Compared to ECG 04/16/2020 12:04:02 ST (T wave) deviation still present Electronically Signed On 04-16-2020 19:59:32 CDT by Tere Teixeira M.D. [id number]
--- NOTE | 2020-04-16 18:30 | PC.NURSE ---
pt admitted into room 103 from er at 1725.report received.pt is alert and awake.afib on monitor.alert and oriented x 4.oriented to room environment.instructed to notifiy staff for any pain,sob..or any concerns at all.orders received for lasix ivp and protonix ivp..given as ordered.2nd unit prbc's began at 1740.stayed with pt x 15 min.no s/sxs blood transfusion reaction noted..will cont to monitor freq
[2020-04-16 18:44] LABS: Magnesium 0.2 mg/dL (1.7-2.3); Phosphorus 0.3 mg/dL (2.5-4.5)
--- NOTE | 2020-04-16 18:55 | PC.NURSE ---
dr ramos updated to pt status.ordered to hold evening dose of metoprolol due to slow heart
[2020-04-16] MEDS: ferrous gluconate 324 mg Tablet PO (19:14)
[2020-04-16 19:28] LABS: Magnesium 2.2 mg/dL (1.7-2.3)
--- NOTE | 2020-04-16 20:39 | PC.NURSE ---
Received report from ROSEANN Pettit at bedside @ 2350. Patient currently has unit of PRBCs running at 125ml/hr. Patient aaox3. Patient denies pain or needs. No distress observed.
[2020-04-16] MEDS: budesonide 0.5 mg/2 mL Neb INHALATION (21:25)
--- NOTE | 2020-04-16 22:11 | PC.NURSE ---
Blood transfusion complete. No s/s of reaction observed at this time. Patient denies any discomforts or needs.
[2020-04-17] VITALS (34 sets, daily range): BP systolic 96–135; BP diastolic 32–59; PULSE 62–85; RESP 16–34; TEMP 36.3–37.3; O2SAT 86–100
[2020-04-17] MEDS: ipratropium-albuterol 3 mL Neb INHALATION ×2 (03:38→08:53)
[2020-04-17 04:44] LABS: Basophils % 0.9 %; Eosinophils % 0.3 %; Hematocrit 24.7 % (37.0-47.0); Hemoglobin 7.2 g/dL (11.5-15.3); Lymphocytes # 0.7 10^3/uL (0.8-4.8); Lymphocytes % 19.7 %; Mean Corpuscular HGB Conc 29.1 g/dL (30.0-36.0); Mean Corpuscular Hemoglobin 26.5 pg (28.0-34.0); Mean Corpuscular Volume 90.8 fL (81-99); Mean Platelet Volume 9.7 fL (7.4-10.4); Monocytes # 0.4 10^3/uL (0.2-0.9); Neutrophils # 2.3 10^3/uL (1.8-7.7); Neutrophils % 66.8 %; Nucleated Red Blood Cells % 0 %; Platelet Count 167 10^3/cmm (130-400); Red Blood Count 2.72 10^6/uL (4.1-5.3); Red Cell Distribution Width 17.4 % (12.1-15.1); White Blood Count 3.5 10^3/uL (4.0-10.0)
[2020-04-17 05:39] LABS: Alanine Aminotransferase < 5 U/L (0-33); Albumin Level 3.3 g/dL (3.5-5.2); Alkaline Phosphatase 108 IU/L (35-105); Anion Gap 10.4 (5-19); Aspartate Amino Transferase 8 U/L (0-32); Blood Urea Nitrogen 10 mg/dL (8-23); Calcium 8.1 mg/dL (8.5-10.5); Carbon Dioxide 39 mmol/L (22-29); Chloride 99 mmol/L (98-107); Globulin 2.5 g/dL (1.3-4.6); Glucose 88 mg/dL (65-115); Osmolality Calculated 295 mOsm/kg (285-295); Potassium 3.4 mmol/L (3.5-5.1); Sodium 145 mmol/L (136-145); Total Bilirubin 2.4 mg/dL (0.15-1.2); Total Protein 5.8 g/dL (6.6-8.7)
[2020-04-17] MEDS: pantoprazole 40 mg SDV IVP ×2 (06:00→17:37)
[2020-04-17] MEDS: FUROsemide 10 mg/mL SDV 4mL 40 MG IVP ×2 (06:00→17:37)
[2020-04-17] MEDS: metoprolol tartrate 25 mg Tablet PO (06:00)
--- NOTE | 2020-04-17 06:08 | PC.NURSE ---
Administered morning medications as ordered. Patient denies pain or needs at this time. Patient is clean and dry. Noted patient SpO2 decreases as times due to excessive shaking/tremors. Patient has history of Parkinson's disease.
--- NOTE | 2020-04-17 08:18 | PC.NURSE ---
updated Daughter on patient status; Password provided
[2020-04-17] MEDS: budesonide 0.5 mg/2 mL Neb INHALATION ×2 (08:53→19:48)
--- NOTE | 2020-04-17 09:15 | PM.PN ---
Subjective Subjective: Interval history: No events overnight. Yesterday patient required 2 units of PRBC. Patient tolerated transfusion well. She denies of any nausea, vomiting, shortness of breath during examination. States she is feeling a lot better. Denies of having any bleeding, melena, hematemesis. Patient had a bowel movement earlier today morning but no stool samples were sent. Vitals/I&O/Wt Last Vital Signs Temp 97.9 F 04/17/20 06:59 Pulse 79 04/17/20 09:01 Resp 18 04/17/20 08:55 BP 128/56 04/17/20 06:59 Pulse Ox 98 04/17/20 08:55 04/16/20 04/17/20 04/17/20 22:59 06:59 14:59 Intake Total 350 / 350 120 / 470 Output Total 800 / 800 400 / 400 Balance -450 / -450 120 / -330 -400 / -400 Weight last 48 hrs Weight 74.979 kg Weight 74.843 kg Physical Exam Narrative: EXAM NARRATIVE: General: No acute distress, AO x3, ill-appearing, frail HEENT: PERRLA, pupils bilaterally equal and reactive Chest: Normal vesicular breath sounds, decreased breath sounds bilaterally at the lower zones, no added sounds, equal good air entry bilaterally CVS: S1-S2 regular, soft pansystolic murmur at the apex, 1 x 6, S3 gallop Abdomen: Soft, nontender, no organomegaly, bowel sounds present Neuro: No focal deficits, no facial deformity, AO x3, power 5/5 in all limbs Data : 04/17/20 04:07 04/17/20 04:07 A&P Assessment and plan (1) Anemia: Status: Acute Qualifiers: Anemia type: unspecified type Qualified Code(s): D64.9 - Anemia, unspecified (2) Supratherapeutic INR: Status: Acute (3) Mitral valve replaced: Status: Acute (4) Afib: Status: Acute Qualifiers: Atrial fibrillation type: longstanding persistent Qualified Code(s): I48.11 - Longstanding persistent atrial fibrillation (5) Diastolic CHF: Status: Acute Qualifiers: Heart failure chronicity: acute on chronic Qualified Code(s): I50.33 - Acute on chronic diastolic (congestive) heart failure (6) COPD (chronic obstructive pulmonary disease): Status: Acute Qualifiers: COPD type: unspecified COPD Qualified Code(s): J44.9 - Chronic obstructive pulmonary disease, unspecified (7) GERD (gastroesophageal reflux disease): Status: Acute (8) Hypothyroidism: Status: Acute (9) Parkinson disease: Status: Acute (10) Chronic anticoagulation: Status: Acute (11) Schatzki's ring: Status: Acute Additional A&P Information Acute anemia: Patient has history of chronic anemia under evaluation. She is followed up with Dr. Bullock in the past. She has got Injectafer in the past as well as per her last was around 5 months ago. She is undergone multiple colonoscopies, endoscopies and a capsule endoscopy without any source of bleeding found with most recent capsule endoscopy done in May 2019. CT chest abdomen pelvis results appreciated. Negative for any hematoma. Stool for occult blood awaited. Patient states she is okay with endoscopy or colonoscopy at this time if required. CBC appropriate. Received 2 units of PRBC. Iron panel, vitamin B12, folate acid levels appreciated and normal. Because of recurrent anemia along with elevated bilirubin will have to rule out hemolysis given the history of prosthetic mitral valve. Check haptoglobin, direct bilirubin, LDH, fibrinogen, FDP, peripheral smear. Will ask lab to added onto the labs from yesterday. Hb 7.2 today. Will transfuse 2 more units of PRBC as would want hemoglobin to be more than 8 given her cardiac history. Will give IV Lasix 40 mg in between transfusions. Patient is hemodynamically stable and not actively bleeding so will not do reversal of therapeutic INR. Patient has history of Schatzki's ring in the endoscopy 3 years ago. We will start patient on Protonix 40 mg IV twice daily for now. Afib: Rate controlled Continue with home dose of metoprolol. Supratherapeutic INR: Goal INR around 2.5-3. Hold Coumadin for now. Check INR daily. If patient's hemoglobin remained stable and once INR is at goal can start the Coumadin again. We will get documents from [place] and [place] [facility] to see what dose of Coumadin patient was asked. Most likely patient requires 10% less of total dose which she was on at present. History of MVR: Mitral click heard Continue with Lasix 40 mg twice daily History of diastolic heart failure: proBNP elevated at 2500 today. Last echo from January 2019 shows an EF of 70% with paradoxical septal motion, RVSP of 45 mmHg, peak mitral valve velocity of 2 ms normal functioning mitral valve, mildly increased right atrial size and moderately increased left atrial size. Repeat echocardiogram. Strict input output charting, daily weights. Lasix 40 mg IV twice daily. We will hold off on Imdur for now given low blood pressures. COPD: No exacerbation at present. Patient was tachycardic with use of albuterol. We will switch Lovenox to Spiriva. Continue with Pulmicort. Oxygen supplementation keeping saturation of 90%. We will change medications as per clinical course. Continue chronic home medications like levothyroxine, statins, combination of carbidopa levodopa. Discussed in detail with both patient and D POA at bedside regarding CODE STATUS. Patient states he would want everything to be done including chest compressions and intubation if required. She is even okay with colonoscopy and endoscopy baseline if required. Full code. Cardiac low-salt diet. SCDs, avoid any therapeutic anticoagulation for DVT prophylaxis due to supratherapeutic INR and severe anemia. Plan discussed with her POA, Daughter Meghan and she agrees with the same. All questions were answered. We will request documents from [facility] regarding recent hospitalization and documents from [facility] regarding the medication list. 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
--- NOTE | 2020-04-17 09:37 | PC.CHAP ---
Pastoral Care Encounter/Spiritual Assessment Type of Contact [] Declined respiratory care practitioner visit [] Patient/Family/Request visit [] Outpatient visit [] Follow-up visit [] Physician referral [] Code/Alert [] Routine visit [] Staff referral [] Actively dying [x] Patient sleeping [] Family support [] [] Out of room [] Palliative care [] [] Receiving care in room [] Pre-surgical visit [] Trauma [] Long length of stay [] ICU visit [] Other: Relational/Emotional Strength [] Patient feels connected with others/family/visitors/staff [] Distress [] Loneliness/isolation [] Abandonment Spirituality of Patient [] Person of Vivian [] Attends Catholic of their Vivian [] Believes in Prayer [] Reads Bible or Episcopal materials [] There are Spiritual issues to be addressed Hog Killer Interventions [] Prayer [] Active listening [] Non-anxious presence [] Spiritual/emotional support [] Crisis/trauma care [] Spiritual counseling [] Bereavement support [] Provided bereavement packet [] Provided Bible/devotional materials [] Provided toy/stuffed animal, coloring book to patient or family member [] Provided Communion [] Anointing/[place] [] Salvation [x] Completed spiritual assessment [] Other: Impact on Illness or Injury [] Angry [] Fearful [] Anxious [] Often cries [] Exhaustion [] Unable to work [] Unable to attend alevism [] Unable to walk/stand [] Unable to read [] Unable to drive [] Unable to eat/drink [] Unable to sleep [] Unable to be with family [] Patient intubated [] Other: Summary Time spent with patient
[2020-04-17] MEDS: levothyroxine 50 mcg Tablet PO (09:48)
[2020-04-17] MEDS: ferrous gluconate 324 mg Tablet PO ×2 (09:48→17:37)
[2020-04-17] MEDS: atorvastatin 40 mg Tablet PO (09:48)
[2020-04-17] MEDS: fluoxetine 10 mg Capsule PO (09:49)
[2020-04-17 10:11] LABS: Lactate Dehydrogenase 239 U/L (135-214); Total Bilirubin 1.4 mg/dL (0.15-1.2)
[2020-04-17 10:24] LABS: LAB Peripheral Smear Sent for Review
--- NOTE | 2020-04-17 10:40 | PC.NURSE ---
Contacted [facility] about patients warfarin dosing Nurse reports that the clinic had not been managing her doses due to assisted placement. Contacted [facility] and last dose they have recorded for patient prior to Discharge Warfarin 3mg 4x weekly and 2.5mg 3x weekly; Dr ortega notified
[2020-04-17 11:15] LABS: Fibrinogen 372 mg/dL (184-529)
[2020-04-17] MEDS: sodium chloride 0.9% (100 ml) 100 ML (11:16)
--- NOTE | 2020-04-17 12:56 | PC.NURSE ---
Daughter called and provided patient password update on patient provided
--- NOTE | 2020-04-17 14:19 | PC.NURSE ---
patient blood transfusing at this time patient denies any s/s of transfusion reaction; denies sob although respirations are fast at 30 breaths per min; lungs are diminishes in the bases with fine crackles in the upper lobes. Dr ortega notified new instructions given to obtain hemoglobin 2 hours after infusion complete; HOLD second unit until receiving instructions post blood level check
--- NOTE | 2020-04-17 14:47 | PC.NURSE ---
Blood transfusion complete explained to patient POC on next unit administration patient verbalizes understanding
--- NOTE | 2020-04-17 15:26 | USCV_ITS ---
Iris Garcia Age: 79 Gender: F : 1940 Exam Date: 04/17/2020 06:51 Ordering Phys: Francisco Marino MD Technologist: Ashley Gill Exam Location: [facility] [place] Indication: AFIB BP: 134 / 59 HR: 91 Rhythm: AFIB Technical Quality: Adequate MEASUREMENTS (Male / Female) Normal Values 2D ECHO LV Diastolic Diameter PLAX 4.8 cm 4.2 - 5.9 / 3.9 - 5.3 cm LV Systolic Diameter PLAX 4.1 cm IVS Diastolic Thickness 0.9 cm 0.6 - 1.0 / 0.6 - 0.9 cm IVS Systolic Thickness 1.3 cm LVPW Diastolic Thickness 1.0 cm 0.6 - 1.0 / 0.6 - 0.9 cm LVPW Systolic Thickness 1.2 cm LVOT Diameter 2.0 cm LV Ejection Fraction 2D Teich 29.8 % LV Ejection Fraction MOD 2C 61.9 % LV Ejection Fraction 2C AL 60.4 % LA Diameter 4.1 cm LA Width 3.5 cm LA Height 6.1 cm RA Width 5.2 cm RA Height 4.5 cm Aorta at Sinotubular Diameter 3.3 cm M-MODE LV Diastolic Diameter MM 5.1 cm 4.2 - 5.9 / 3.9 - 5.3 cm LV Systolic Diameter MM 3.4 cm LV Ejection Fraction MM Teich 61.8 % IVS Diastolic Thickness MM 0.9 cm 0.6 - 1.0 / 0.6 - 0.9 cm IVS Systolic Thickness MM 1.8 cm LVPW Diastolic Thickness MM 1.1 cm 0.6 - 1.0 / 0.6 - 0.9 cm LVPW Systolic Thickness MM 1.7 cm RV Diastolic Diameter MM 1.2 cm Aortic Annulus Diameter 3.4 cm LA Ao Ratio MM 1.2 MV E Point Septal Separation 0.7 cm DOPPLER AV Peak Velocity 274.0 cm/s LVOT Peak Velocity 82.0 cm/s AV Area Cont Eq vti 1.3 cm squared AV Area Cont Eq pk 0.9 cm squared MV Area PHT 6.7 cm squared MV E' Velocity 9.0 cm/s Mitral E to MV E' Ratio 17.0 Mitral E to LV E' Lateral Ratio 18.9 Mitral E to LV E' Septal Ratio 15.4 TR Peak Velocity 387.0 cm/s TR Peak Gradient 59.9 mmHg TR Mean Velocity 292.1 cm/s TR Mean Gradient 37.5 mmHg TR Velocity Time Integral 146.0 cm TV Peak E Velocity 75.0 cm/s Right Atrial Pressure 3.0 mmHg Pulmonary Artery Systolic Pressu 62.9 mmHg PV Peak Velocity 105.0 cm/s RV Acceleration Time 0.1 s RV Ejection Time 0.3 s RV AcT/ET 0.3 FINDINGS Left Ventricle Normal left ventricular cavity size. Normal left ventricular systolic function. Left ventricular ejection fraction is estimated at 60-65%. Possible septal hypokinesis. Abnormal septal motion consistent with conduction abnormality. Diastolic function cannot be assessed. Right Ventricle Normal right ventricular size and systolic function. Right ventricular systolic pressure 68 mmHg. Right Atrium Mildly increased right atrial size. Right atrial pressure estimated at 8 mmHg. Left Atrium Moderately increased left atrial size. Mitral Valve Mechanical prosthetic mitral valve noted, well-seated and normally functioning. No significant valvular or perivalvular regurgitation. Aortic Valve Mildly thickened trileaflet aortic valve. No aortic valve stenosis. Trace aortic valve regurgitation. Tricuspid Valve Structurally normal tricuspid valve. Mild to moderate tricuspid valve regurgitation. Pulmonic Valve Pulmonic valve not well visualized. Pericardium No pericardial effusion. Aorta Normal size aortic root and proximal ascending aorta. CONCLUSIONS 1. Normal left ventricular cavity size and systolic function. Left ventricular ejection fraction is estimated at 60-65%. Possible septal hypokinesis. 2. Moderately increased left atrial size. 3. Severe pulmonary hypertension with pulmonary artery pressure estimated at 68 mmHg. 4. Mechanical prosthetic mitral valve noted, well-seated and normally functioning. 5. When compared to previous echocardiogram dated 02/11/2019, pulmonary artery pressure seems to have increased. Tere Teixeira MD (Electronically Signed) Final Date: 17 April 2020 14:21 S
--- NOTE | 2020-04-17 17:31 | PC.NURSE ---
notified Dr ortega of hemoglobin results instructions to hold 2nd unit of blood at this time will continue to monitor patient
--- NOTE | 2020-04-17 18:38 | PC.NURSE ---
notified Dr ortega of patients Heart rate of 70 that dips to the 40s that dose not sustain new orders to change metoprolol to 12.5 mg BID from 25mg BID
[2020-04-17] MEDS: metoprolol tartrate 25 mg Tablet 12.5 MG PO (19:12)
--- NOTE | 2020-04-17 19:21 | PC.NURSE ---
Received bedside report from Keyanna Delgado RN. Patient resting with eyes closed. Spontaneous reponsive to verbal stimuli. Patient assisted up to BSC. Patient tolerated well. Denies pain at this time. Assessment completed as documented.
--- NOTE | 2020-04-17 20:10 | PC.NURSE ---
Informed Dr Fox of patient diastolic pressures in the 30s and patient reporting not feeling well . Recieved orders to hold Lasix for now and to give Albumin 25g 25% now. Read back and verified twice.
[2020-04-18] VITALS (11 sets, daily range): BP systolic 106–150; BP diastolic 34–77; PULSE 58–81; RESP 16–26; TEMP 36.6–36.8; O2SAT 85–100
[2020-04-18] MEDS: pantoprazole 40 mg SDV IVP ×2 (05:12→17:19)
--- NOTE | 2020-04-18 05:22 | PC.NURSE ---
Patient c/o back ache 03/08. Informed Dr Fox of patient complaint and received an order for Tylenol 650mg every 6 hours as needed for pain.
[2020-04-18] MEDS: acetaminophen 325 mg Tablet 650 MG PO (05:25)
[2020-04-18 05:49] LABS: Basophils % 0.7 %; Eosinophils # 0.1 10^3/uL (0.0-0.8); Eosinophils % 2.4 %; Lymphocytes # 0.7 10^3/uL (0.8-4.8); Lymphocytes % 14.8 %; Mean Corpuscular Hemoglobin 26.2 pg (28.0-34.0); Mean Corpuscular Volume 90.1 fL (81-99); Mean Platelet Volume 9.8 fL (7.4-10.4); Monocytes # 0.5 10^3/uL (0.2-0.9); Monocytes % 11.3 %; Neutrophils # 3.2 10^3/uL (1.8-7.7); Neutrophils % 70.4 %; Nucleated Red Blood Cells % 0 %; Platelet Count 166 10^3/cmm (130-400); Red Blood Count 3.44 10^6/uL (4.1-5.3); Red Cell Distribution Width 17.6 % (12.1-15.1); White Blood Count 4.5 10^3/uL (4.0-10.0)
[2020-04-18 06:05] LABS: INR 2.43 (0.8-1.2)
[2020-04-18 06:13] LABS: Alanine Aminotransferase < 5 U/L (0-33); Albumin Level 3.8 g/dL (3.5-5.2); Alkaline Phosphatase 102 IU/L (35-105); Anion Gap 10.2 (5-19); Aspartate Amino Transferase 10 U/L (0-32); Blood Urea Nitrogen 11 mg/dL (8-23); Calcium 8.6 mg/dL (8.5-10.5); Chloride 98 mmol/L (98-107); Globulin 1.9 g/dL (1.3-4.6); Glucose 97 mg/dL (65-115); Osmolality Calculated 298 mOsm/kg (285-295); Potassium 3.2 mmol/L (3.5-5.1); Sodium 146 mmol/L (136-145); Total Bilirubin 3.1 mg/dL (0.15-1.2); Total Protein 5.7 g/dL (6.6-8.7)
[2020-04-18 06:17] LABS: Carbon Dioxide 41 mmol/L (22-29)
--- NOTE | 2020-04-18 06:54 | PC.NURSE ---
Addendum entered by Keyanna Muhammad RN 04/18/20 07:44: Dr ortega notified no new instructions at this time Original Note: During Ultrasound exam patient begins to moan; reporting sharp pain rated 9/10 in ABD with pressure from ultra sound probe patient was able to complete test. patient reports pain is starting to ease when test was complete patient repositioned in bed. after a few min of rest pain reports pain is starting to feel better now rating 8/10
--- NOTE | 2020-04-18 09:08 | USR_ITS ---
PROCEDURE INFORMATION: Exam: US Abdomen Limited, Right Upper Quadrant Exam date and time: 04/18/2020 6:59 AM Age: 79 years old Clinical indication: Elevated bilirubin. TECHNIQUE: Imaging protocol: Real-time ultrasound of the abdomen with image documentation. Examination was focused on the right upper quadrant. COMPARISON: No relevant prior studies available. FINDINGS: Pleural space: There is a right pleural effusion. Liver: The liver measures 14.5 cm in the sagittal plane. No focal liver mass or intrahepatic biliary ductal dilatation. Gallbladder: Prior cholecystectomy. Common bile duct: The common bile duct measures 5-6 mm in diameter. Pancreas: The visualized portion of the pancreas is within normal limits. Right kidney: The right kidney measures 9.7 cm in length. Normal parenchymal echogenicity. No hydronephrosis. Aorta: The visualized portion of the abdominal aorta is within normal limits. Portal venous: There is hepatopetal flow in the main portal vein on Doppler evaluation. Inferior vena cava: The visualized portion of the inferior vena cava is within normal limits. US/US liver [id number] IMPRESSION: 1. Prior cholecystectomy. No biliary ductal dilatation. 2. Right pleural effusion.
[2020-04-18] MEDS: budesonide 0.5 mg/2 mL Neb INHALATION ×2 (09:23→20:27)
--- NOTE | 2020-04-18 09:58 | PC.CHAP ---
Pastoral Care Encounter/Spiritual Assessment Type of Contact [] Declined station captain visit [] Patient/Family/Request visit [] Outpatient visit [] Follow-up visit [] Physician referral [] Code/Alert [X] Routine visit [] Staff referral [] Actively dying [] Patient sleeping [] Family support [] [] Out of room [] Palliative care [] [] Receiving care in room [] Pre-surgical visit [] Trauma [] Long length of stay [] ICU visit [] Other: Relational/Emotional Strength [] Patient feels connected with others/family/visitors/staff [] Distress [] Loneliness/isolation [] Abandonment Spirituality of Patient [] Person of Vivian [] Attends Christianity of their Vivian [] Believes in Prayer [] Reads Bible or Uatsdin materials [] There are Spiritual issues to be addressed Dag Sprayer Interventions [] Prayer [] Active listening [] Non-anxious presence [] Spiritual/emotional support [] Crisis/trauma care [] Spiritual counseling [] Bereavement support [] Provided bereavement packet [] Provided Bible/devotional materials [] Provided toy/stuffed animal, coloring book to patient or family member [] Provided Communion [] Anointing/Morgan [] Salvation [] Completed spiritual assessment [] Other: Impact on Illness or Injury [] Angry [] Fearful [] Anxious [] Often cries [] Exhaustion [] Unable to work [] Unable to attend hoahaoism [] Unable to walk/stand [] Unable to read [] Unable to drive [] Unable to eat/drink [] Unable to sleep [] Unable to be with family [] Patient intubated [] Other: Summary ROUTINE VISIT Time spent with patient
[2020-04-18] MEDS: metoprolol tartrate 25 mg Tablet 12.5 MG PO ×2 (10:12→17:24)
[2020-04-18] MEDS: levothyroxine 50 mcg Tablet PO (10:13)
[2020-04-18] MEDS: atorvastatin 40 mg Tablet PO (10:13)
[2020-04-18] MEDS: ferrous gluconate 324 mg Tablet PO ×2 (10:13→17:25)
[2020-04-18] MEDS: fluoxetine 10 mg Capsule PO (10:17)
--- NOTE | 2020-04-18 12:30 | PC.NURSE ---
Confirmed with Dr ortega that patient could eat at this time
--- NOTE | 2020-04-18 13:23 | XRR_ITS ---
PROCEDURE INFORMATION: Exam: XR Abdomen, 2 Views Exam date and time: 04/18/2020 2:28 PM Age: 79 years old Clinical indication: Condition or disease; Other: Sbo; Prior surgery; Surgery type: Open heart, date not provided TECHNIQUE: Imaging protocol: XR of the abdomen. Views: 2 Views. COMPARISON: US liver [id number] 04/18/2020 6:45 AM FINDINGS: Chest: Median sternotomy wires are present. Prosthetic heart valve is noted. Heart size within normal limits. Moderate left basilar airspace opacity (atelectasis and/or consolidation). Mild pulmonary edema. No visible pneumothorax. Moderate left pleural effusion. Gastrointestinal tract: No dilated bowel loops identified to suggest obstruction. Intraperitoneal space: No free intraperitoneal air identified to suggest perforation. Bones/joints: Mild degenerative changes of the lumbar spine. XR/XR acute abdomen series [id number] IMPRESSION: 1. No findings to suggest bowel obstruction or perforation. 2. Moderate left basilar airspace opacity (atelectasis and/or consolidation). 3. Mild pulmonary edema. 4. Moderate left pleural effusion.
--- NOTE | 2020-04-18 13:27 | P.PN_ITS ---
Subjective Subjective: Interval history: No acute events overnight. Last 24 hours patient received 1 unit of PRBC. On examination today complaining of pain in the right upper abdomen and chest. She denies of having any nausea, vomiting, headache, palpitation, difficulty breathing, dizziness. Vitals/I&O/Wt Last Vital Signs Temp 97.8 F 04/18/20 11:24 Pulse 59 L 04/18/20 11:24 Resp 18 04/18/20 11:24 BP 150/57 04/18/20 11:24 Pulse Ox 99 04/18/20 11:24 04/17/20 04/18/20 04/18/20 22:59 06:59 14:59 Intake Total 480 / 1091 100 / 1191 120 / 120 Output Total 400 / 1150 200 / 1350 150 / 150 Balance 80 / -59 -100 / -159 -30 / -30 Weight last 48 hrs Weight 74.661 kg Weight 74.979 kg Physical Exam Narrative: EXAM NARRATIVE: General: No acute distress, AO x3, frail HEENT: PERRLA, pupils bilaterally equal and reactive Chest: Normal vesicular breath sounds, decreased breath sounds bilaterally at the lower zones, no added sounds, equal good air entry bilaterally CVS: S1-S2 regular, soft pansystolic murmur at the apex, 1 x 6, S3 gallop Abdomen: Soft, nontender, no organomegaly, bowel sounds present Neuro: No focal deficits, no facial deformity, AO x3, power 5/5 in all limbs Data : 04/18/20 05:21 04/18/20 05:21 Micro: Microbiology 04/17/20 12:39 Occult Blood (FIT) - Final Stool A&P Assessment and plan (1) Anemia: Status: Acute Qualifiers: Anemia type: unspecified type Qualified Code(s): D64.9 - Anemia, u nspecified (2) Supratherapeutic INR: Status: Acute (3) Mitral valve replaced: Status: Acute (4) Afib: Status: Acute Qualifiers: Atrial fibrillation type: longstanding persistent Qualified Code(s): I48.11 - Longstanding persistent atrial fibrillation (5) Diastolic CHF: Status: Acute Qualifiers: Heart failure chronicity: acute on chronic Qualified Code(s): I50.33 - Acute on chronic diastolic (congestive) heart failure (6) COPD (chronic obstructive pulmonary disease): Status: Acute Qualifiers: COPD type: unspecified COPD Qualified Code(s): J44.9 - Chronic obstructive pulmonary disease, unspecified (7) GERD (gastroesophageal reflux disease): Status: Acute (8) Hypothyroidism: Status: Acute (9) Parkinson disease: Status: Acute (10) Chronic anticoagulation: Status: Acute (11) Schatzki's ring: Status: Acute Additional A&P Information Acute anemia: Patient has history of chronic anemia under evaluation. She is followed up with Dr. Bullock in the past. She has got Injectafer in the past as well as per her last was around 5 months ago. She is undergone multiple colonoscopies, endoscopies and a capsule endoscopy without any source of bleeding found with most recent capsule endoscopy done in May 2019. CT chest abdomen pelvis results appreciated. Negative for any hematoma. Stool for occult blood negative. Overall patient has received 2 units of PRBC. Hemoglobin up appropriately. 9 today. Iron panel, vitamin B12, folate acid levels appreciated and normal. Blood work done yesterday is consistent with hemolysis with low haptoglobin, mildly elevated LDH. Peripheral smear results appreciated. We will discuss with hematology. Echocardiogram discussed with Dr. Teixeira. She states mitral valve is functioning normally. Patient has history of Schatzki's ring in the endoscopy 3 years ago. We will start patient on Protonix 40 mg IV twice daily for now. Afib: Rate controlled Because of occasional bradycardia have decreased the dose of metoprolol to 12.5 mg twice daily. Supratherapeutic INR: Goal INR around 2.5-3. INR 2.43. Start patient on Coumadin 4 mg. Also give patient Lovenox 1 mg/kg body weight every 12 hourly. Monitor hemoglobin. Patient takes 3 mg 4 times a week and 2.5 mg 3 times a week at home. Patient came in with supratherapeutic INR. Patient will need 10% less of her weekly dose. And plan to discharge patient on 3 mg 4 times a week(Monday to ) and 2 mg 3 times a week(Monday to Monday). History of MVR: Mitral click heard Patient's urine output is appropriate. Change IV Lasix to oral 40 mg daily. History of diastolic heart failure: proBNP elevated at 2500 today. Echocardiogram results appreciated. Strict input output charting, daily weights. We will hold off on Imdur for now given low blood pressures. Right upper quadrant abdominal pain: Liver ultrasound results appreciated. Patient does not have any leukocytosis, fever, postcholecystectomy status. It is most likely patient's pain is coming from recent right third rib fracture post fall. Patient did have a bowel movement yesterday. Will do abdominal series and start patient on lidocaine patch on chest for relief of pain. COPD: No exacerbation at present. Continue Spiriva and Pulmicort. Oxygen supplementation keeping saturation 90%. We will change medications as per clinical course. Continue chronic home medications like levothyroxine, statins, combination of carbidopa levodopa. Discussed in detail with both patient and D POA at bedside regarding CODE STATUS. Patient states he would want everything to be done including chest compressions and intubation if required. She is even okay with colonoscopy and endoscopy baseline if required. Full code. Cardiac low-salt diet. SCDs, avoid any therapeutic anticoagulation for DVT prophylaxis due to supratherapeutic INR and severe anemia. Plan discussed with her POA, Daughter Meghan and she agrees with the same. All q uestions were answered. If patient continues to do well can plan to discharge patient tomorrow. Patient will go home. Attestations Medical Necessity Statement*: Acute anemia, atrial fibrillation, suprathera peutic INR Time Spent in Patient Care: Greater than 35 minutes (>than 50% of time spent in counselling and/or direct pt care on unit) . Coding Level of Care Code Acute Television Station Manager for Chg Fwd Diagnoses Anemia D64.9 Anemia type: unspecified type Supratherapeutic INR R79.1 Mitral valve replaced Z95.2 Afib I48.11 Atrial fibrillation type: longstanding persistent Diastolic CHF I50.33 Heart failure chronicity: acute on chronic COPD (chronic obstructive pulmonary disease) J44.9 COPD type: unspecified COPD GERD (gastroesophageal reflux disease) K21.9 Hypothyroidism E03.9 Parkinson disease G20 Chronic anticoagulation Z79.01 Schatzki's ring K22.2
[2020-04-18 14:11] LABS: Lipase 28 U/L (13-60)
[2020-04-18] MEDS: FUROsemide 40 mg Tablet PO (14:43)
[2020-04-18] MEDS: warfarin 2 mg Tablet 4 MG PO (14:43)
[2020-04-18] MEDS: enoxaparin 80 mg/0.8 mL Syringe 70 MG SUBCUT (14:44)
[2020-04-18] MEDS: potassium chloride ER 10 mEq Tablet 40 MEQ PO (18:16)
--- NOTE | 2020-04-18 20:03 | PC.NURSE ---
Patient was asked if she is having any pain and states no, I feel fine. Patient was educated not to get up without assistance, was oriented to call light, and has call light within reach. Patient verbalized understanding.
[2020-04-19] VITALS (9 sets, daily range): BP systolic 103–137; BP diastolic 41–58; PULSE 60–77; RESP 20–27; TEMP 36.1–36.9; O2SAT 93–100
[2020-04-19] MEDS: enoxaparin 80 mg/0.8 mL Syringe 70 MG SUBCUT (00:40)
[2020-04-19] MEDS: pantoprazole 40 mg SDV IVP (03:37)
[2020-04-19 03:42] LABS: Basophils % 0.8 %; Eosinophils # 0.2 10^3/uL (0.0-0.8); Eosinophils % 4.6 %; Hematocrit 30.3 % (37.0-47.0); Hemoglobin 8.6 g/dL (11.5-15.3); Lymphocytes # 0.7 10^3/uL (0.8-4.8); Lymphocytes % 19.5 %; Mean Corpuscular HGB Conc 28.4 g/dL (30.0-36.0); Mean Corpuscular Hemoglobin 26.1 pg (28.0-34.0); Mean Corpuscular Volume 92.1 fL (81-99); Mean Platelet Volume 9.9 fL (7.4-10.4); Monocytes # 0.4 10^3/uL (0.2-0.9); Monocytes % 11.7 %; Neutrophils # 2.3 10^3/uL (1.8-7.7); Neutrophils % 63.4 %; Nucleated Red Blood Cells % 0 %; Platelet Count 137 10^3/cmm (130-400); Red Blood Count 3.29 10^6/uL (4.1-5.3); Red Cell Distribution Width 17.7 % (12.1-15.1); White Blood Count 3.7 10^3/uL (4.0-10.0)
[2020-04-19 04:17] LABS: Alanine Aminotransferase < 5 U/L (0-33); Albumin Level 3.4 g/dL (3.5-5.2); Alkaline Phosphatase 95 IU/L (35-105); Anion Gap 12.4 (5-19); Aspartate Amino Transferase 10 U/L (0-32); Blood Urea Nitrogen 9 mg/dL (8-23); Calcium 8.4 mg/dL (8.5-10.5); Carbon Dioxide 38 mmol/L (22-29); Chloride 99 mmol/L (98-107); Globulin 1.9 g/dL (1.3-4.6); Glucose 106 mg/dL (65-115); Osmolality Calculated 298 mOsm/kg (285-295); Potassium 3.4 mmol/L (3.5-5.1); Sodium 146 mmol/L (136-145); Total Bilirubin 2.3 mg/dL (0.15-1.2); Total Protein 5.3 g/dL (6.6-8.7)
--- NOTE | 2020-04-19 05:29 | PC.NURSE ---
Patient had an uneventful night. Patient was assisted to the bedside commode two times throughout the night with one assist. Patient's brief is currently clean/dry. Will continue to monitor.
[2020-04-19] MEDS: fluoxetine 10 mg Capsule PO (08:14)
[2020-04-19] MEDS: FUROsemide 40 mg Tablet PO (08:14)
[2020-04-19] MEDS: ferrous gluconate 324 mg Tablet PO (08:14)
[2020-04-19] MEDS: metoprolol tartrate 25 mg Tablet 12.5 MG PO (08:14)
[2020-04-19] MEDS: atorvastatin 40 mg Tablet PO (08:15)
[2020-04-19] MEDS: levothyroxine 50 mcg Tablet PO (08:15)
--- NOTE | 2020-04-19 09:15 | PC.SOCIAL ---
IMM Page 2 of IMM explained to patient and given the number to [employer]. Initialed, dated, and timed and placed in chart.
--- NOTE | 2020-04-19 10:05 | P.DS_ITS ---
Discharge Providers Date of Admission: 04/16/20 14:15 Date of Discharge: April 19, 2020 Attending Provider at Admission: Hellen Gallo MD Attending Provider at Discharge: Francisco Marino MD Primary Care Provider: Michael Hampton DO Diagnoses at Discharge Discharge Diagnosis (1) Anemia: Status: Acute Qualifiers: Anemia type: unspecified type Qualified Code(s): D64.9 - Anemia, unspecified (2) Supratherapeutic INR: Status: Acute (3) Mitral valve replaced: Status: Acute Problem details: Mechanical, on coumadin (4) Afib: Status: Acute Problem details: Diltiazem discontinued. Metoprolol increased. Qualifiers: Atrial fibrillation type: longstanding persistent Qualified Code(s): I48.11 - Longstanding persistent atrial fibrillation (5) Diastolic CHF: Status: Acute Qualifiers: Heart failure chronicity: acute on chronic Qualified Code(s): I50.33 - Acute on chronic diastolic (congestive) heart failure (6) COPD (chronic obstructive pulmonary disease): Status: Acute Problem details: Former smoker, occasional use of breathing treatments Qualifiers: COPD type: unspecified COPD Qualified Code(s): J44.9 - Chronic obstructive pulmonary disease, unspecified (7) GERD (gastroesophageal reflux disease): Status: Acute Problem details: PPI (8) Hypothyroidism: Status: Acute (9) Parkinson disease: Status: Acute Problem details: Sinimet (10) Chronic anticoagulation: Status: Acute (11) Schatzki's ring: Status: Acute Reason for Visit Reason for Visit: sob Hospital Course Discharge Summary: Iris Garcia is a 79 year old female with past medical history of microcytic hypochromic anemia because of iron deficiency, mitral valve stenosis post mechanical [place] mitral valve replacement, atrial fibrillation, on Coumadin chronically, recurrent/chronic anemia requiring frequent RBC transfusion, diastolic congestive heart failure, Parkinson's disease. She follows up with Dr. Bullock for chronic anemia for which no aberrant reason has been found and is most likely because of small GI ooze along with possible myelodysplasia for which she is never been worked up because of her advanced age. She had panendoscopy done 3 years ago and her colonoscopy only revealed a small cecal polyp which was removed and her EGD revealed a small hiatal hernia and a mild Schatzki's ring, but no evidence of any source of blood loss. Patient underwent capsule endoscopy at [facility] in May 2019 as per the record in the system the study was not complete as the capsule did not travel fast enough but did not show any active bleed. Most of the history is given by the daughter bedside confirmed by patient herself. Patient was apparently admitted at [facility] earlier in the month after she had had a fall and was apparently in the ICU on ventilator for 7 days found to have multiple rib fractures and was discharged to [facility]. Patient was discharged from [facility] 2 days ago and since then has been having increasing weakness and difficulty in breathing. Family also gives history that nurse from [facility] had called stating her INR was high and was advised not to take Coumadin so has not been taking Coumadin for last 2 days. As per them all of the medications have remained the same. They are not really sure about diuretics as well. Patient states she is feeling a lot better since she is been in the ER but has been having difficulty in breathing along with feeling drained and fatigued for around a week. She denies of having any hematemesis, melena, b leeding from anywhere, any recurrent falls since being at [facility]. Her last bowel movement was yesterday which was soft brown in color and as per the patient was not melanotic. She denies any use of recent pain medications, epigastric pain, change in her dose of warfarin. Patient denies of having any fever, flulike symptoms, cough, dysuria, palpitation, dizziness or weakness in any of her arms. On conversation with nurse at [facility] she states patient was checked for COVID-19 twice last week and both results came back negative. She did tell that her INR was high so patient was asked not to take Coumadin 2 days ago. As patient has been discharged from the system they cannot tell me exactly what dose of Coumadin patient was on. In ER patient's blood work showed white count of 3.4, hemoglobin of 4.9, platelet of 198, INR of 4.2 ABG shows a PCO2 of 65 with baseline PCO2 around 65 as well, a sodium of 142, chloride of 95, bicarb of 39 which seems to be at its baseline, creatinine of 0.7, bilirubin of 1.5 which is also at baseline, alkaline phosphatase of 119 which is actually better than before. She was ordered 2 units of transfusion and hospital service was requested for further evaluation and treatment. Patient overall received 3 units of PRBC during this hospitalization to which her hemoglobin responded appropriately and was 8.6 on the day of discharge. Stool for occult blood was tested and was negative. Because of concern of recurrent anemia along with negative stool for occult blood, normal iron panel, normal vitamin B12 and folate levels hemolysis pattern was suspected and labs were checked. Haptoglobin was found to be low with mildly elevated LDH. Because of this concern echocardiogram was done which stated a normal EF with normal function mitral valve, severe pulmonary hypertension with PASP of 68 mmHg and a moderately increased left atrial size. Peripheral smear was ordered which was negative for schistocytes but was concerning for hypochromic anemia. Admission patient was supratherapeutic along with severe anemia so warfarin was withheld. Her INRs were checked daily and once it reached goal of between 2.5- 3.5 Coumadin was started again. At home patient takes 3 mg 4 days a week and 2.5 mg 3 days a week. Patient most likely needs a 10% lower dose of her weekly Coumadin. But because patient has been off Coumadin for last 5 days because severe anemia she is been discharged on Coumadin 4 mg for now with advised to check her INR on Monday. She is advised to follow-up with her primary care provider for further adjustment of Coumadin. During hospitalization she was on Lovenox transition for last 24 hours and her hemoglobin was stable as well. During hospitalization she was also found to have occasional episodes of bradycardia for which her dose of Lopressor was decreased to 12.5 mg twice daily. Because of concerns of hemolysis patient and patient's daughter Ms. Rodriguez have been advised to follow-up with underwear finisher in next 2 weeks for further work-up. Patient is been discharged in hemodynamically stable condition with advised to follow-up with her primary care provider within next 4 to 7 days for INR check and readjustment of her Coumadin dose. Physical Exam Narrative: EXAM NARRATIVE: General: No acute distress, AO x3, frail HEENT: PERRLA, pupils bilaterally equal and reactive Chest: Normal vesicular breath sounds, decreased breath sounds bilaterally at the lower zones, no added sounds, equal good air entry bilaterally CVS: S1-S2 regular, soft pansystolic murmur at the apex, 1 x 6, S3 gallop Abdomen: Soft, nontender, no organomegaly, bowel sounds present Neuro: No focal deficits, no facial deformity, AO x3, power 5/5 in all limbs Discharge Data Data Completed and Pending: Completed Studies During Hospitalization Category Date Time Status CT chest abd pel w con* Urgent Cat Scan 04/16/20 13:34 Completed XR acute abdomen series [id number] Routi ne Exams 04/18/20 13:23 Completed XR chest 1V mary ble [id number] Urgent Exams 04/16/20 11:55 Completed CV echo complete* [id number] Routine Ultrasound 04/17/20 15:26 Completed [place] liver [id number] Ro utine Ultrasound 04/18/20 09:08 Completed Pending at discharge Category Date Time Status Leukocyte Reduced RBC Routine Lab 04/16/20 13:00 Results Retype for XM Rou berny Lab 04/16/20 13:00 Results Type and Screen R outine Lab 04/16/20 13:00 Results Labs from last 24 hours 04/19/20 04/19/20 04/19/20 03:05 03:05 03:05 WBC 3.7 L RBC 3.29 L Hgb 8.6 L Hct 30.3 L MCV 92.1 MCH 26.1 L MCHC 28.4 L RDW 17.7 H Plt Count 137 MPV 9.9 Neut % (Auto) 63.4 Lymph % (Auto) 19.5 [place] % (Auto) 11.7 Eos % (Auto) 4.6 Baso % (Auto) 0.8 Neut # (Auto) 2.3 Lymph # (Auto) 0.7 L [place] # (Auto) 0.4 Eos # (Auto) 0.2 Baso # (Auto) 0.0 Nucleated RBC % (a uto) 0 Nucleated RBCs # 0.0 PT 24.30 H INR 2.10 H Sodium 146 H Potassium 3.4 L Chloride 99 Carbon Dioxide 38 H Anion Gap 12.4 BUN 9 Creatinine 0.7 Glucose 106 Calculated Osmolal ity 298 H Calcium 8.4 L Total Bilirubin 2.3 H AST 10 ALT < 5 Alkaline Phosphata se 95 Total Protein 5.3 L Albumin 3.4 L Globulin 1.9 Lipase 04/18/20 05:21 WBC RBC Hgb Hct MCV MCH MCHC RDW Plt Count MPV Neut % (Auto) Lymph % (Auto) [place] % (Auto) Eos % (Auto) Baso % (Auto) Neut # (Auto) Lymph # (Auto) [place] # (Auto) Eos # (Auto) Baso # (Auto) Nucleated RBC % (a uto) Nucleated RBCs # PT INR Sodium Potassium Chloride Carbon Dioxide Anion Gap BUN Creatinine Glucose Calculated Osmolal ity Calcium Total Bilirubin AST ALT Alkaline Phosphata se Total Protein Albumin Globulin Lipase 28 Vitals: Last Vital Signs Temp 98.4 F 04/19/20 08:00 Pulse 73 04/19/20 08:00 Resp 25 H 04/19/20 08:00 BP 137/55 04/19/20 08:00 Pulse Ox 95 04/19/20 08:00 Discharge Plan Discharge Patient Disposition: Home, Self-Care Condition: Stable Prescriptions: New furosemide 40 mg Tablet 40 mg PO DAILY@0800 Qty: 30 RF: 0 warfarin 2 mg Tablet 4 mg PO DAILY@1400 Qty: 15 RF: 0 Continued polyethylene glycol 3350 [Miralax] 17 gram/dose powder 17 gm PO DAILY PRN (Reason: Constipation) RF: 0 fluoxetine 10 mg capsule 10 mg PO DAILY RF: 0 levothyroxine 50 mcg capsule 50 mcg PO DAILY RF: 0 rosuvastatin [Crestor] 10 mg tablet 10 mg PO DAILY RF: 0 carbidopa-levodopa 10-100 mg tablet,disintegrating 1 tab PO BID RF: 0 tolterodine 2 mg tablet 2 mg PO BID RF: 0 potassium chloride [Klor-Con 10] 10 mEq tablet extended release 20 meq PO DAILY RF: 0 sennosides-docusate sodium 8.6-50 mg Tablet 2 tab PO BID Qty: 120 RF: 0 Dexilant 30 mg capsule,biphase delayed releas 30 mg PO DAILY Qty: 30 RF: 0 ferrous gluconate 324 mg (37.5 mg iron) tablet 324 mg PO BID Qty: 60 RF: 0 Changed isosorbide mononitrate 60 mg tablet extended release 24 hr 30 mg PO DAILY Qty: 30 RF: 0 metoprolol tartrate 25 mg Tablet 12.5 mg PO Q12H Qty: 60 RF: 0 Discontinued warfarin 1 mg tablet See Rx Instructions .ROUTE .COMPLEX RF: 0 Discharge Orders: Discharge Order (Routine); Ordered 04/19/20 Ordered By: Francisco Marino Referrals: Michael Hampton DO [Primary Care Provider] - 4-7 days (INR check) Lakia Bullock MD [Staff Physician] - 2 weeks (hemolytic anemia) Discharge Diet: Cardiac Discharge Activity: Resume usual activity Patient Instructions: Anemia, Anticoagulation Therapy, Furosemide (By mouth), Warfarin (By mouth), Heart Failure (DC), Fall Prevention for Older Adults (GEN), Fall Prevention (DC), CHF Stoplight Activity Restrictions/Additional Instructions: Your Dose of Coumadin has been changed. Please check INR by Monday. Please follow-up with your primary care provider within the next 4 to 7 days and dose warfarin accordingly. DR HAMPTON'S OFFICE SHOULD BE CALLING YOU TO SET UP AN APPOINTMENT. IF YOU HAVE NOT HEARD FROM THEM BY Monday CALL THEM AT [phone] Dose of Imdur and metoprolol have been changed as well. Please follow-up with Dr. Bullock within next 2 weeks for hemolytic anemia. HIS OFFICE SHOULD BE CALLING YOU TO SET UP APPT DATE AND TIME. IF YOU HAVE NOT HEARD FROM THEM BY Monday, CALL THE OFFICE AT [phone]. Discharge Date/Time: 04/19/20 13:00 Discharge Attestations Time Spent in Discharge Care*: greater than 30 min Specific Discharge Activities: Specific discharge activities: educating patient, educating and/or supporting family/caregiver, discussing with pcp/other providers, discussing with heel caser/social workers/dc planners, documenting/other paperwork and evaluating patient/reviewing data Status at Discharge: Cognitive status at discharge: cognitively intact , Behavioral status at discharge: cooperative , Functional status at discharge: uses cane/walker Overall status at discharge: patient is back to baseline Quality Metrics Clinical Quality Measures During this hospital stay, did patient experience: None Coding Level of Care Code Acute [place] Technician for Chg Fwd Diagnoses Anemia D64.9 Anemia type: unspecified type Supratherapeutic INR R79.1 Mitral valve replaced Z95.2 Afib I48.11 Atrial fibrillation type: longstanding persistent Diastolic CHF I50.33 Heart failure chronicity: acute on chronic COPD (chronic obstructive pulmonary disease) J44.9 COPD type: unspecified COPD GERD (gastroesophageal reflux disease) K21.9 Hypothyroidism E03.9 Parkinson disease G20 Chronic anticoagulation Z79.01 Schatzki's ring K22.2
--- NOTE | 2020-04-19 11:00 | PC.NURSE ---
no ar/arb at discharge..ef 60%
--- NOTE | 2020-04-19 13:00 | PC.NURSE ---
Discharge to home Discuss to pt and dgtr michelle regarding her discharge orders and instructions. Educated pt and dgtr michelle on her discharge meds. Portable tank provided to pt since per family they don't have a portable tank at home. Instructed pt and dgtr michelle if pt symptoms gets worse or any concerns to call her pcp, varnish finisher or come to E.R to get evaluated. Pt and dgtr verbalizes understanding. Informed dgtr regarding pt needs to take her Coumadin this afternoon at 2 pm. Informed dgtr that Pt's INR today is 2.10, Discharge packet provided to family.
--- NOTE | 2020-04-20 12:12 | PC.RESP ---
Pulmonary rehab information sent to patient post discharge.
--- NOTE | 2020-04-20 12:37 | PC.RESP ---
PULMONARY REHAB INFORMATION SENT TO PATIENT.
== END 2020-04-19 13:00 | disposition home or self-care (01) | DRG 811 ==
LOC: ER 14:59 → ICU 15:50 → CSU 16:28
PROVIDERS: Emergency Medicine; Admitting Provider Student in an Organized Health Care Education/Training Program; PCP Family Medicine; Visit Provider Student in an Organized Health Care Education/Training Program
DX: D64.9 Anemia, unspecified (principal); I50.33 Acute on chronic diastolic (congestive) heart failure; I48.11 Longstanding persistent atrial fibrillation; R79.1 Abnormal coagulation profile; Z95.2 Presence of prosthetic heart valve; J44.9 Chronic obstructive pulmonary disease, unspecified; K21.9 Gastro-esophageal reflux disease without esophagitis; E03.9 Hypothyroidism, unspecified; G20 Parkinson's disease; Z79.01 Long term (current) use of anticoagulants; K22.2 Esophageal obstruction; Z87.891 Personal history of nicotine dependence; I05.0 Rheumatic mitral stenosis; F32.9 Major depressive disorder, single episode, unspecified; G47.33 Obstructive sleep apnea (adult) (pediatric); I11.0 Hypertensive heart disease with heart failure
CPT/HCPCS: 12345; 36415; 36430; 36600; 71045; 71260; 74022; 74177; 76705; 80053; 80500; 81003; 82247; 82248; 82274; 82607; 82746; 82803; 83010; 83540; 83550; 83615; 83690; 83735; 83880; 84100; 85018; 85025; 85045; 85362; 85384; 85610; 86850; 86880; 86900; 86920; 93005; 93306; 94640; 94664; 96372; 96375; 97161; 99284; C9113; J1650; J1940; J7626; P9016; P9047; Q9967

== ENCOUNTER 2020-04-24 01:26 | Observation (INO) | payer MEDICARE, MEDICAID, SELFPAY ==
[2020-04-24] VITALS (16 sets, daily range): BP systolic 114–130; BP diastolic 33–78; PULSE 52–66; RESP 16–27; TEMP 36.6–37.1; O2SAT 95–100; BMI 29.2
--- NOTE | 2020-04-24 01:28 | ECG_ITS ---
[facility] Test Date: 2020-04-24 Pat Name: Iris Garcia Department: Room: Gender: Female Workers Compensation Claims Assistant: : 1940 Requested By: James Adrian Order Number: [id number] Krupa MD: Surinder Mays M.D. Measurements Intervals [place] Rate: 61 P: 231 ND: 161 QRS: 25 QRSD: 109 T: 24 QT: 454 QTc: 460 Interpretive Statements SINUS RHYTHM WITH SINUS ARRHYTHMIA Compared to ECG 04/16/2020 19:02:31 Atrial fibrillation no longer present Ventricular premature complex(es) no longer present ST (T wave) deviation no longer present Electronically Signed On 04-24-2020 21:51:05 CDT by Surinder Mays M.D. [email or web address] Center[facility].[employer]/store/[id number]
--- NOTE | 2020-04-24 01:28 | XRR_ITS ---
PROCEDURE INFORMATION: Exam: XR Chest, 1 View Exam date and time: 04/24/2020 1:56 AM Age: 79 years old Clinical indication: Shortness of breath; Prior surgery; Surgery type: Cabg; Additional info: SOB, FX of chf TECHNIQUE: Imaging protocol: XR of the chest Views: 1 view. COMPARISON: CR XR chest 1V portable [id number] 04/16/2020 12:15 PM FINDINGS: Tubes, catheters and devices: Cardiac valve prosthesis. Lungs: Minor opacities of lower lungs may indicate atelectasis or scarring with slightly greater involvement in the retrocardiac left lower lung. Pulmonary venous congestion. Pleural space: No pneumothorax. Heart/Mediastinum: Cardiomegaly. Vasculature: Dense vessel or calcification in the lateral right upper lobe. Bones/joints: Postoperative sternotomy. Osteopenia. Other findings: Persistent small left effusion. Reduction or repositioning of right pleural effusion. XR/XR chest 1V portable [id number] IMPRESSION: 1. Pulmonary venous congestion. 2. Persistent left effusion. 3. Minor interstitial opacities of lower lungs greater in the retrocardiac left lower lobe. Findings may favor atelectasis and should be correlated for any symptoms of pneumonia.
[2020-04-24 01:49] LABS: Basophils % 0.2 %; Eosinophils # 0.1 10^3/uL (0.0-0.8); Eosinophils % 2.1 %; Hematocrit 34.3 % (37.0-47.0); Hemoglobin 9.2 g/dL (11.5-15.3); Lymphocytes # 0.9 10^3/uL (0.8-4.8); Lymphocytes % 20.5 %; Mean Corpuscular HGB Conc 26.8 g/dL (30.0-36.0); Mean Corpuscular Volume 96.9 fL (81-99); Mean Platelet Volume 10.3 fL (7.4-10.4); Monocytes # 0.4 10^3/uL (0.2-0.9); Monocytes % 8.6 %; Neutrophils # 2.9 10^3/uL (1.8-7.7); Neutrophils % 68.6 %; Nucleated Red Blood Cells % 0 %; Platelet Count 116 10^3/cmm (130-400); Red Blood Count 3.54 10^6/uL (4.1-5.3); White Blood Count 4.2 10^3/uL (4.0-10.0)
--- NOTE | 2020-04-24 01:51 | ED_ITS ---
HPI - SOB/Dyspnea General: Chief Complaint: Shortness of Breath/Dyspnea Stated Complaint: SHORT OF BREATH / HX OF CHF Time Seen by Provider: 04/24/20 01:29 Source: patient and EMS Mode of arrival: EMS Limitations: no limitations History of Present Illness: HPI Narrative: 79-year-old female who has a long history of COPD and CHF. Patient was recently admitted and discharged Monday for anemia. Patient states since being discharged she gets short of breath when lying flat at night. Patient denies any chest pain. Patient's currently 100% on her 2 L oxygen. MD elicited complaint: shortness of breath Pertinent past history: COPD and congestive heart failure Associated symptoms: Deny abdominal pain, chest pain, fever(s), nausea or vomiting Review of Systems Const: Denies: fever(s), chills, body aches or change in appetite Eyes: Denies: blurry vision or eye discomfort ENMT: Denies: throat pain or dental pain Card: Denies: chest pain Resp: Reports: dyspnea GI: Denies: abdominal pain, nausea, vomiting or diarrhea : Denies: dysuria Musc: Denies: neck pain or back pain Skin/Breast: Denies: rash Neuro: Denies: headache(s) Psych: Denies: depression Jesus Alberto/Lymph: Denies: easy bruising All/Imm: Denies: urticaria PFSH ED PFSH: Medical History (Updated 04/24/20 @ 03:06 by Surinder Olivares MD) Afib Diltiazem discontinued. Metoprolol increased. Chronic anticoagulation Due to mechanical mitral valve; coumadin Chronic hypercapnic respiratory failure COPD (chronic obstructive pulmonary disease) Former smoker, occasional use of breathing treatments Depression On fluoxetine with good control Diastolic CHF GERD (gastroesophageal reflux disease) PPI HTN (hypertension) Hypothyroidism Iron deficiency anemia Has required transfusion in past, last egd and colonoscopy ~2017 with divert iculosis and internal hemorrhoids, no clear source of bleeding SONYA (obstructive sleep apnea) Uses 2 L of oxygen at night does not use CPAP Parkinson disease Sinimet Schatzki's ring Surgical History History of bilateral tubal ligation History of cholecystectomy History of total knee arthroplasty Left Mitral valve replaced Mechanical, on coumadin Family History Mother CAD (coronary artery disease) Diabetes Other Hypertension Social History Smoking and tobacco status: former smoker Alcohol intake: never Household members: spouse Housing: House Physical Exam Const: COMMON NORMALS: no acute distress, patient oriented x3 and healthy appearing HENMT: COMMON NORMALS: normocephalic and atraumatic HEAD & SCALP: normocephalic and atraumatic Eye: COMMON NORMALS: Equal, round and reactive pupils present and EOMs intact bilaterally PUPIL: Yes Equal, round and reactive pupils present Neck/C-Spine: COMMON NORMALS: full ROM and supple Chest: COMMONS NORMALS: normal inspection of the chest and normal palpation of entire chest wall Resp: COMMON NORMALS: normal respiratory effort, No retractions, No use of accessory muscles and clear to auscultation bilaterally AUSCULTATION: clear to auscultation bilaterally Cardio: COMMON NORMALS: regular rate, regular rhythm and No murmurs present (Cardio) RATE: regular rate RHYTHM: regular rhythm GI: COMMON NORMALS: Normal to inspection, nondistended, normoactive bowel sounds present, Soft to palpation, non-tender and no masses PALPATION: Yes Soft to palpation Extremity: COMMON NORMALS: normal to inspection and full ROM Neuro: COMMON NORMALS: patient oriented x3, moves all extremities and no focal motor deficits Psych: COMMON NORMALS: mental status grossly normal, Normal thought process present and cooperative THOUGHT PROCESS: Normal thought process present Skin: COMMON NORMALS: no rashes or lesions noted and no wounds GENERAL SKIN EXAM: no rashes or lesions noted Course Vital Signs: Vital signs: Vital Signs Temperature 98.1 F 04/24/20 01:33 Pulse Rate 57 L 04/24/20 02:25 Respiratory Rate 18 04/24/20 02:24 Blood Pressure 116/54 04/24/20 02:24 Pulse Oximetry 98 04/24/20 02:25 MDM - SOB/Dyspnea MDM Narrative: Medical decision making narrative: Patient presents here with us of breath that is chronic in nature from congestive heart failure. Patient is also quite weak. Tried to ambulate her with assistance and she is unable to stand even with assistance. Spoke to hospitalist Dr. Stock and will admit. Patient is unable to take care of herself at this time. Lab Data: Labs: Lab Results 04/24/20 04/24/20 04/24/20 Range/Units 01:15 01:15 01:15 WBC 4.2 (4.0-10.0) 10^3/ uL RBC 3.54 L (4.1-5.3) 10^6/u L Hgb 9.2 L (11.5-15.3) g/dL Hct 34.3 L (37.0-47.0) % MCV 96.9 (81-99) fL MCH 26.0 L (28.0-34.0) pg MCHC 26.8 L (30.0-36.0) g/dL RDW 18.0 H (12.1-15.1) % Plt Count 116 L (130-400) 10^3/c mm MPV 10.3 (7.4-10.4) fL Neut % (Auto) 68.6 % Lymph % (Auto) 20.5 % [place] % (Auto) 8.6 % Eos % (Auto) 2.1 % Baso % (Auto) 0.2 % Neut # (Auto) 2.9 (1.8-7.7) 10^3/u L Lymph # (Auto) 0.9 (0.8-4.8) 10^3/u L [place] # (Auto) 0.4 (0.2-0.9) 10^3/u L Eos # (Auto) 0.1 (0.0-0.8) 10^3/u L Baso # (Auto) 0.0 (0.0-0.1) 10^3/u L Nucleated RBC % (a uto) 0 % Nucleated RBCs # 0.0 /100WBC PT 36.10 H (10.5-13.3) SECO NDS INR 3.45 H (0.8-1.2) Sodium 146 H (136-145) mmol/L Potassium 4.3 (3.5-5.1) mmol/L Chloride 100 (98-107) mmol/L Carbon Dioxide 39 H (22-29) mmol/L Anion Gap 11.3 (5-19) BUN 10 (8-23) mg/dL Creatinine 0.6 (0.5-0.9) mg/dL Glucose 113 (65-115) mg/dL Calculated Osmolal ity 299 H (285-295) mOsm/k g Calcium 8.6 (8.5-10.5) mg/dL Total Bilirubin 1.2 (0.15-1.2) mg/dL AST 12 (0-32) U/L ALT < 5 (0-33) U/L Alkaline Phosphata se 123 H (35-105) IU/L NT-Pro-B Natriuret Pep 1264 H (0-450) pg/mL Total Protein 6.7 (6.6-8.7) g/dL Albumin 3.9 (3.5-5.2) g/dL Globulin 2.8 (1.3-4.6) g/dL Imaging Data^: CXR: Attestation: I personally reviewed and interpreted this imaging study as follows: My impression: no acute abnormality EKG Data^: EKG 1: Attestation: I personally reviewed and interpreted this EKG as follows: EKG Interpretation Date: 04/24/20 EKG interpretation time: 02:05 Interpretation: nsr hr [address] or t wave abnormalities qrs 109 qtc 458 Discharge Plan Discharge Prescriptions: No Action polyethylene glycol 3350 [Miralax] 17 gram/dose powder 17 gm PO DAILY PRN (Reason: Constipation) RF: 0 fluoxetine 10 mg capsule 10 mg PO DAILY RF: 0 levothyroxine 50 mcg capsule 50 mcg PO DAILY RF: 0 rosuvastatin [Crestor] 10 mg tablet 10 mg PO DAILY RF: 0 carbidopa-levodopa 10-100 mg tablet,disintegrating 1 tab PO BID RF: 0 tolterodine 2 mg tablet 2 mg PO BID RF: 0 potassium chloride [Klor-Con 10] 10 mEq tablet extended release 20 meq PO DAILY RF: 0 sennosides-docusate sodium 8.6-50 mg Tablet 2 tab PO BID Qty: 120 RF: 0 Dexilant 30 mg capsule,biphase delayed releas 30 mg PO DAILY Qty: 30 RF: 0 ferrous gluconate 324 mg (37.5 mg iron) tablet 324 mg PO BID Qty: 60 RF: 0 furosemide 40 mg Tablet 40 mg PO DAILY@0800 Qty: 30 RF: 0 warfarin 2 mg Tablet 4 mg PO DAILY@1400 Qty: 15 RF: 0 isosorbide mononitrate 60 mg tablet extended release 24 hr 30 mg PO DAILY Qty: 30 RF: 0 metoprolol tartrate 25 mg Tablet 12.5 mg PO Q12H Qty: 60 RF: 0 Referrals: Michael Hampton, [Primary Care Provider] - Coding Level of Care Code ED [place] Water Manager for Chg Fwd Exam Comprehensive
[2020-04-24] MEDS: dexamethasone 10 mg/mL INJ IVP (02:02)
[2020-04-24] MEDS: FUROsemide 10 mg/mL SDV 4mL 40 MG IVP (02:02)
[2020-04-24 02:07] LABS: INR 3.45 (0.8-1.2)
[2020-04-24] MEDS: ipratropium-albuterol 3 mL Neb INHALATION ×2 (02:15→21:05)
[2020-04-24 02:22] LABS: Alanine Aminotransferase < 5 U/L (0-33); Albumin Level 3.9 g/dL (3.5-5.2); Alkaline Phosphatase 123 IU/L (35-105); Anion Gap 11.3 (5-19); Aspartate Amino Transferase 12 U/L (0-32); Blood Urea Nitrogen 10 mg/dL (8-23); Calcium 8.6 mg/dL (8.5-10.5); Carbon Dioxide 39 mmol/L (22-29); Chloride 100 mmol/L (98-107); Globulin 2.8 g/dL (1.3-4.6); Glucose 113 mg/dL (65-115); NT Pro B Type Natriuretic Pept 1264 pg/mL (0-450); Osmolality Calculated 299 mOsm/kg (285-295); Potassium 4.3 mmol/L (3.5-5.1); Sodium 146 mmol/L (136-145); Total Bilirubin 1.2 mg/dL (0.15-1.2); Total Protein 6.7 g/dL (6.6-8.7)
--- NOTE | 2020-04-24 03:02 | PM.HP ---
Providers/Chief Complaint Primary Care Provider: Michael Hampton DO Chief Complaint: SHORT OF BREATH / HX OF CHF History of Present Illness Iris Garcia is a 79 year old female who carries history of recurrent blood transfusion for microcytic hypochromic anemia, chronic anticoagulation for mitral valve replacement ([facility]), A. fib, diastolic congestive heart failure EF 70%, and Parkinson's disease. She was recently discharged from the hospital about 1 week ago, during that hospitalization she required 3 blood transfusions, previously she has had panendoscopy and colonoscopy revealed small cecal polyp hiatal hernia and mild Schatzki ring. She has been tested negative for COVID in the past. On her previous discharge her metoprolol dose was decreased because of bradycardia. She presented today for chief complaint of worsening shortness of breath. Patient is stating that she missed her Lasix doses because of change of name of her medication. She did not experience any fever, chills, sputum production with cough, dysuria or diarrhea. She herself has tried to decrease her Parkinson's medication in order to keep it easier to stay compliant. She is endorsing orthopnea, PND, dyspnea on exertion without any active chest pain. Today diagnosis in the ER revealed stable hemoglobin, high BNP, mild CHF exacerbation with chest x-ray which is not very different from her previous imaging. She was very weak was not able to walk on her own using a walker, hospital service was requested to admit her because of her worsening weakness and shortness of breath. Review of Systems Const: Reports: change in appetite, change in weight, fatigue and malaise; Denies: fever(s), chills, body aches or night sweats Eyes: Denies: change in vision ENMT: Denies: throat pain Card: Reports: swelling of feet/ankles, dyspnea on exertion and orthopnea; Denies: chest pain Resp: Reports: dyspnea; Denies: productive cough or non-productive cough GI: Denies: abdominal pain, nausea, vomiting, diarrhea or constipation : Denies: flank pain or difficulty voiding Musc: Denies: neck pain Skin/Breast: Reports: lesions Neuro: Denies: headache(s) Psych: Denies: anxiety or depression Endo: Denies: polyuria Jesus Alberto/Lymph: Denies: easy bruising All/Imm: Denies: urticaria Medications/Allergies Home Medications Medication Instructions Recorded Confirmed Last Taken Type fluoxetine 10 mg capsule 10 mg PO DAILY cap 11/06/19 04/16/20 04/16/20 History levothyroxine 50 mcg capsule 50 mcg PO DAILY 11/06/19 04/16/20 04/16/20 History polyethylene glycol 3350 17 17 gm PO DAILY PRN 11/06/19 04/16/20 02/25/20 History gram/dose oral powder rosuvastatin 10 mg tablet 10 mg PO DAILY 11/06/19 04/16/20 04/15/20 History potassium chloride [Klor-Con 10] 20 meq PO DAILY 12/12/19 04/16/20 04/16/20 History sennosides-docusate sodium 2 tab PO BID #120 tab 12/18/19 04/16/20 02/25/20 Rx Dexilant 30 mg PO DAILY #30 cap 02/26/20 04/16/20 04/15/20 Rx ferrous gluconate 324 mg PO BID #60 tab 02/26/20 04/16/20 04/16/20 Rx carbidopa 10 mg-levodopa 100 mg 1 tab PO BID tab 03/12/20 04/16/20 04/16/20 History disintegrating tablet tolterodine 2 mg tablet 2 mg PO BID 03/12/20 04/16/20 04/16/20 History furosemide 40 mg PO DAILY@0800 #30 tab 04/19/20 Unknown Rx isosorbide mononitrate 30 mg PO DAILY #30 tab 04/19/20 04/16/20 04/16/20 Rx metoprolol tartrate 12.5 mg PO Q12H #60 tab 04/19/20 04/16/20 04/16/20 Rx warfarin 4 mg PO DAILY@1400 #15 tab 04/19/20 Unknown Rx Allergies Allergy/AdvReac Type Severity Reaction Status Date / Time penicillin G Allergy UNK Verified 04/24/20 01:37 PFSH Acute PFSH: Medical History (Updated 04/24/20 @ 03:48 by Surinder Olivares MD) Afib Chronic anticoagulation Due to mechanical mitral valve; coumadin Chronic hypercapnic respiratory failure COPD (chronic obstructive pulmonary disease) Former smoker, occasional use of breathing treatments Depression On fluoxetine with good control Diastolic CHF GERD (gastroesophageal reflux disease) PPI HTN (hypertension) Hypothyroidism Iron deficiency anemia Has required transfusion in past, last egd and colonoscopy ~2016 with diverticulosis and internal hemorrhoids, no clear source of bleeding SNOYA (obstructive sleep apnea) Uses 2 L of oxygen at night does not use CPAP Parkinson disease Sinimet Schatzki's ring Surgical History History of bilateral tubal ligation History of cholecystectomy History of total knee arthroplasty Left Mitral valve replaced Mechanical, on coumadin Family History Mother CAD (coronary artery disease) Diabetes Other Hypertension Social History Smoking and tobacco status: former smoker Alcohol intake: never Household members: spouse Housing: House Vitals/I&O/Wt Last Vital Signs Temp 98.1 F 04/24/20 01:33 Pulse 57 L 04/24/20 02:25 Resp 18 04/24/20 02:24 BP 116/54 04/24/20 02:24 Pulse Ox 98 04/24/20 02:25 Weight last 48 hrs Weight 68.039 kg Physical Exam Narrative: EXAM NARRATIVE: Head to toe examination Patient is sitting in semi-mott position Saturating well on 3 L nasal cannula No active respiratory distress She was not able to walk using a walker in the ER, Resting tremor positive Voice tremors positive S1, S2 no acute decompensation of her CHF Abdomen soft nontender nondistended Bilateral decreased breath sounds with crackles at the bases, Neurologically nonfocal exam Resistance to active movement of her extremities Petechia purpura of skin EOMI, PERRLA Awake alert oriented x3, GCS 15 Data : 04/24/20 01:15 04/24/20 01:15 A&P Assessment and plan (1) Dyspnea on exertion: Status: Acute (2) Weakness: Status: Acute (3) Chronic anticoagulation: Status: Acute (4) Schatzki's ring: Status: Acute (5) Diastolic CHF: Status: Acute Qualifiers: Heart failure chronicity: acute on chronic Qualified Code(s): I50.33 - Acute on chronic diastolic (congestive) heart failure (6) Parkinson disease: Status: Acute (7) Mitral valve replaced: Status: Acute (8) Physical deconditioning: Status: Acute Additional A&P Information Dyspnea on exertion due to underlying chronic comorbid conditions No acute etiology for decompensation Patient has missed her doses of Lasix at home, Chest x-ray showing chronic vascular congestion without acute decompensation, BNP 1200 Clinically her CHF seems to be compensated I would continue same dose of Lasix 40 mg a day Parkinson's disease I believe she is not optimized for her Parkinson's medications and experiencing on and off phenomenon, I would increase her Parkinson's medication dose frequency to 3 times a day instead of twice a day History of microcytic hypochromic anemia Patient required 3 PRBC transfusion on previous admission, current hemoglobin stable no active bleeding Chronic anticoagulation for mechanical mitral valve INR at goal, target 2.5-3.5 Continue 4 mg daily Coumadin dose Physical deconditioning due to multiple comorbid conditions Patient does not want to go to any nursing She would like to continue her home health services with [facility] Full code DVT prophylaxis not needed because of Coumadin Cardiac diet Attestations Medical Necessity Statement*: Anticipating discharge in less than 48 hours currently need assessment for continue home health services, patient required hospitalization because she was extremely weak and her is not able to take care of her at home, she needs optimization of her Parkinson's medication Time Spent in Patient Care: (>than 50% of time spent in counselling and/or direct pt care on unit). 40mins Coding Level of Care Code Acute Turner In for Norma Yeh Diagnoses Dyspnea on exertion R06.00 Weakness R53.1 Chronic anticoagulation Z79.01 Schatzki's ring K22.2 Diastolic CHF I50.33 Heart failure chronicity: acute on chronic Parkinson disease G20 Mitral valve replaced Z95.2 Physical deconditioning R53.81
--- NOTE | 2020-04-24 04:00 | PC.NURSE ---
Patient does not know her home medications. She states you'll have to talk to Jennifer about that. Patient gave the phone number [phone] to contact Jennifer to get a list of medications. Patient asked that we not call her at this time of the night. Will attempt to contact her in the morning.
[2020-04-24] MEDS: ferrous gluconate 324 mg Tablet PO (04:15)
--- NOTE | 2020-04-24 04:47 | PC.NURSE ---
Pt arrived to the floor via stretcher from ER. Slid over to bed with max assist. Pt alert and oriented x3. Answers all questions apporpriately. Remains on 2 L NC, which she wears at home. No complaints of pain. Lungs coarse throughout and diminished in bilateral bases. Mechanical valve click. Attempted to get to bedside commode x2 assist, but patient very weak and unsteady, therefore bedpan used. Noted to have red nonblanchable areas to bilateral heels and sacrum. Pillows in place for pressure relief. Turn schedule in place and discussed with assistant director of nursing. Spoke with physician and metoprolol held due to HR 50s-60s. No further needs expressed or noted at this time. Bed alarm in place and call light in reach.
[2020-04-24 05:00] LABS: Basophils % 0.4 %; Eosinophils % 0.4 %; Hematocrit 32.4 % (37.0-47.0); Lymphocytes # 0.3 10^3/uL (0.8-4.8); Lymphocytes % 6.1 %; Mean Corpuscular HGB Conc 27.8 g/dL (30.0-36.0); Mean Corpuscular Volume 97.3 fL (81-99); Monocytes # 0.1 10^3/uL (0.2-0.9); Monocytes % 1.7 %; Neutrophils # 4.8 10^3/uL (1.8-7.7); Neutrophils % 91.2 %; Nucleated Red Blood Cells % 0 %; Platelet Count 109 10^3/cmm (130-400); Red Blood Count 3.33 10^6/uL (4.1-5.3); Red Cell Distribution Width 18.3 % (12.1-15.1); White Blood Count 5.3 10^3/uL (4.0-10.0)
[2020-04-24 05:41] LABS: Anion Gap 11.8 (5-19); Blood Urea Nitrogen 10 mg/dL (8-23); Calcium 8.5 mg/dL (8.5-10.5); Carbon Dioxide 38 mmol/L (22-29); Chloride 97 mmol/L (98-107); Glucose 135 mg/dL (65-115); Osmolality Calculated 294 mOsm/kg (285-295); Potassium 3.8 mmol/L (3.5-5.1); Sodium 143 mmol/L (136-145)
[2020-04-24] MEDS: atorvastatin 40 mg Tablet PO (08:51)
[2020-04-24] MEDS: FUROsemide 40 mg Tablet PO (08:52)
[2020-04-24] MEDS: potassium chloride ER 10 mEq Tablet 20 MEQ PO (08:53)
[2020-04-24] MEDS: levothyroxine 50 mcg Tablet PO (08:53)
[2020-04-24] MEDS: sennosides-docusate Tablet 2 TAB PO ×2 (08:56→18:11)
--- NOTE | 2020-04-24 10:57 | PC.CHAP ---
Pastoral Care Encounter/Spiritual Assessment Type of Contact [] Declined material planning analyst visit [] Patient/Family/Request visit [] Outpatient visit [] Follow-up visit [] Physician referral [] Code/Alert [x] Routine visit [] Staff referral [] Actively dying [] Patient sleeping [] Family support [] [] Out of room [] Palliative care [] [] Receiving care in room [] Pre-surgical visit [] Trauma [] Long length of stay [] ICU visit [] Other: Relational/Emotional Strength [] Patient feels connected with others/family/visitors/staff [] Distress [] Loneliness/isolation [] Abandonment Spirituality of Patient [] Person of Vivian [] Attends Denominational of their Vivian [] Believes in Prayer [] Reads Bible or Sabianist materials [] There are Spiritual issues to be addressed Transmission Technician Interventions [x] Prayer [x] Active listening [x] Non-anxious presence [x] Spiritual/emotional support [] Crisis/trauma care [] Spiritual counseling [] Bereavement support [] Provided bereavement packet [] Provided Bible/devotional materials [] Provided toy/stuffed animal, coloring book to patient or family member [] Provided Communion [] Anointing/[place] [] Salvation [x] Completed spiritual assessment [] Other: Impact on Illness or Injury [] Angry [] Fearful [] Anxious [] Often cries [] Exhaustion [] Unable to work [] Unable to attend hoahaoism [] Unable to walk/stand [] Unable to read [] Unable to drive [] Unable to eat/drink [] Unable to sleep [] Unable to be with family [] Patient intubated [] Other: Summary Feeling stronger. Time spent with patient 5 min
--- NOTE | 2020-04-24 14:03 | PM.PN ---
Subjective Subjective: Interval history: Patient has no complaints this morning, states that she is doing well, breathing has improved, no lightheadedness, no dizziness, no nausea, no vomiting, no chest pain, she thinks she missed a couple Lasix doses but cannot remember how many Vitals/I&O/Wt Last Vital Signs Temp 98.7 F 04/24/20 08:00 Pulse 62 04/24/20 12:00 Resp 24 H 04/24/20 12:00 BP 130/36 04/24/20 10:00 Pulse Ox 99 04/24/20 03:38 04/23/20 04/24/20 04/24/20 22:59 06:59 14:59 Intake Total 0 / 0 Output Total 250 / 250 Balance -250 / -250 Weight last 48 hrs Weight 68.039 kg Physical Exam Const: COMMON NORMALS: no acute distress and patient oriented x3 HENMT: COMMON NORMALS: normocephalic HEAD & SCALP: normocephalic Neck/C-Spine: COMMON NORMALS: no JVD Resp: COMMON NORMALS: normal respiratory effort, No retractions, No use of accessory muscles and clear to auscultation bilaterally AUSCULTATION: clear to auscultation bilaterally Cardio: COMMON NORMALS: no JVD, regular rate, regular rhythm, S1 normal heart sound present and S2 normal heart sound present RATE: regular rate RHYTHM: regular rhythm HEART SOUNDS: S1 normal heart sound present and S2 normal heart sound present GI: COMMON NORMALS: Normal to inspection, nondistended, normoactive bowel sounds present, Soft to palpation, non-tender, No hepatosplenomegaly present, no masses and no bruits PALPATION: Yes Soft to palpation and Yes No hepatosplenomegaly present Extremity: COMMON NORMALS: capillary refill normal, no clubbing, cyanosis or edema, no calf tenderness and no pedal edema Neuro: COMMON NORMALS: patient oriented x3 Psych: COMMON NORMALS: mental status grossly normal Data : 04/24/20 04:15 04/24/20 04:15 A&P Assessment and plan (1) Dyspnea on exertion: Status: Acute (2) Weakness: Status: Acute (3) Chronic anticoagulation: Status: Acute (4) Schatzki's ring: Status: Acute (5) Diastolic CHF: Status: Acute Qualifiers: Heart failure chronicity: acute on chronic Qualified Code(s): I50.33 - Acute on chronic diastolic (congestive) heart failure (6) Parkinson disease: Status: Acute (7) Mitral valve replaced: Status: Acute (8) Physical deconditioning: Status: Acute Additional A&P Information Dyspnea on exertion due to underlying chronic comorbid conditions No acute etiology for decompensation echocardiogram on April 17, 2020 showed an ejection fraction of 60 to 65%, possible septal hypokinesis, Severe pulmonary hypertension, pulmonary arterial pressure 16 mmHg, mechanical prosthetic mitral valve Patient has missed her doses of Lasix at home Chest x-ray showing chronic vascular congestion without acute decompensation, BNP 1200 Clinically her CHF seems to be compensated I would continue same dose of Lasix 40 mg a day Severe pulmonary hypertension, will need to follow-up with Dr. Daigle as outpatient, CT of the chest on 04/16/2020 showed no pulmonary embolism Parkinson's disease I believe she is not optimized for her Parkinson's medications and experiencing on and off phenomenon, I would increase her Parkinson's medication dose frequency to 3 times a day instead of twice a day History of microcytic hypochromic anemia Patient required 3 PRBC transfusion on previous admission, current hemoglobin stable no active bleeding Chronic anticoagulation for mechanical mitral valve INR at goal, target 2.5-3.5 Continue 4 mg daily Coumadin dose Physical deconditioning due to multiple comorbid conditions Patient does not want to go to any nursing She would like to continue her home health services with [facility] Full code DVT prophylaxis not needed because of Coumadin Cardiac diet Attestations Medical Necessity Statement*: She requires continued hospitalization to due to dyspnea secondary to CHF Coding Level of Care Code Acute [employer] 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
--- NOTE | 2020-04-24 14:29 | PC.RESP ---
Pulmonary Rehab information sent to patient.
[2020-04-24] MEDS: warfarin 2 mg Tablet 4 MG PO (14:31)
[2020-04-25 03:58] VITALS: BP 114/66; PULSE 62; RESP 20; TEMP 36.7; O2SAT 99
[2020-04-25 05:59] LABS: Basophils % 0.3 %; Eosinophils % 0.9 %; Hematocrit 29.7 % (37.0-47.0); Hemoglobin 8.5 g/dL (11.5-15.3); Lymphocytes # 0.7 10^3/uL (0.8-4.8); Lymphocytes % 20.9 %; Mean Corpuscular HGB Conc 28.6 g/dL (30.0-36.0); Mean Corpuscular Hemoglobin 27.3 pg (28.0-34.0); Mean Corpuscular Volume 95.5 fL (81-99); Mean Platelet Volume 10.2 fL (7.4-10.4); Monocytes # 0.3 10^3/uL (0.2-0.9); Monocytes % 9.6 %; Neutrophils # 2.3 10^3/uL (1.8-7.7); Nucleated Red Blood Cells % 0 %; Platelet Count 102 10^3/cmm (130-400); Red Blood Count 3.11 10^6/uL (4.1-5.3); Red Cell Distribution Width 18.6 % (12.1-15.1); White Blood Count 3.4 10^3/uL (4.0-10.0)
[2020-04-25 06:15] LABS: INR 4.42 (0.8-1.2)
[2020-04-25 06:27] LABS: Alanine Aminotransferase < 5 U/L (0-33); Albumin Level 3.6 g/dL (3.5-5.2); Alkaline Phosphatase 109 IU/L (35-105); Anion Gap 10.7 (5-19); Aspartate Amino Transferase 9 U/L (0-32); Blood Urea Nitrogen 13 mg/dL (8-23); Calcium 8.5 mg/dL (8.5-10.5); Carbon Dioxide 39 mmol/L (22-29); Chloride 99 mmol/L (98-107); Globulin 2.5 g/dL (1.3-4.6); Glucose 98 mg/dL (65-115); Magnesium 2.5 mg/dL (1.7-2.3); Osmolality Calculated 296 mOsm/kg (285-295); Phosphorus 2.9 mg/dL (2.5-4.5); Potassium 3.7 mmol/L (3.5-5.1); Sodium 145 mmol/L (136-145); Total Bilirubin 1.1 mg/dL (0.15-1.2); Total Protein 6.1 g/dL (6.6-8.7)
[2020-04-25 08:00] VITALS: BP 160/47; PULSE 65; RESP 18; O2SAT 100
[2020-04-25 08:43] VITALS: PULSE 60; RESP 16; O2SAT 99
[2020-04-25] MEDS: FUROsemide 40 mg Tablet PO (09:02)
[2020-04-25] MEDS: potassium chloride ER 10 mEq Tablet 20 MEQ PO (09:05)
[2020-04-25] MEDS: atorvastatin 40 mg Tablet PO (09:05)
[2020-04-25] MEDS: dilTIAZem 30 mg Tablet PO (09:05)
[2020-04-25] MEDS: levothyroxine 50 mcg Tablet PO (09:06)
[2020-04-25 11:02] VITALS: BP 126/55; PULSE 61; RESP 16; TEMP 36.9; O2SAT 2
[2020-04-25 13:43] LABS: Hematocrit 31.5 % (37.0-47.0); Hemoglobin 8.9 g/dL (11.5-15.3)
--- NOTE | 2020-04-25 14:26 | PM.DCS ---
Discharge Providers Date of Admission: 04/24/20 02:46 Date of Discharge: April 25, 2020 Attending Provider at Admission: Surinder Olivares MD Attending Provider at Discharge: Geoff Prince MD Primary Care Provider: Michael Hampton DO Diagnoses at Discharge Discharge Diagnosis (1) Dyspnea on exertion: Status: Acute (2) Weakness: Status: Acute (3) Chronic anticoagulation: Status: Acute (4) Schatzki's ring: Status: Acute (5) Diastolic CHF: Status: Acute Qualifiers: Heart failure chronicity: acute on chronic Qualified Code(s): I50.33 - Acute on chronic diastolic (congestive) heart failure (6) Parkinson disease: Status: Acute Problem details: Sinimet (7) Mitral valve replaced: Status: Acute Problem details: Mechanical, on coumadin (8) Physical deconditioning: Status: Acute Reason for Visit Reason for Visit: SHORT OF BREATH / HX OF CHF Hospital Course Discharge Summary: This is a 79-year-old female with a past medical history of atrial fibrillation, mitral valve replacement on Coumadin, CHF, severe pulmonary hypertension, Parkinson's disease, history of microcytic anemia, requires chronic blood transfusions, history of Schatzki's ring, who presents to [facility] due to complaints of shortness of breath Patient was admitted for dyspnea secondary to CHF exacerbation, she had echo on March 2020 which showed an ejection fraction 60 to 65%, possible septal hypokinesis, severe pulmonary hypertension, chest x-ray showed chronic vascular congestion, BNP 1200, patient thinks that she did not take her Lasix dose. Patient received inpatient diuresis, fluid restrictions, daily I's and O's, patient's clinical condition improved discharged home on Lasix 40 mg daily with close follow-up with primary care provider as outpatient. In addition during her hospitalization, she was found to have episodes of sinus bradycardia, bigeminy, she is on metoprolol for atrial fibrillation, I have reduced dose to 6.25 twice daily. I have also discharged the patient on event monitor, with a close follow-up with cardiology for sinus bradycardia, and septal hypokinesis seen on echocardiogram. Patient was advised if she were to have lightheadedness, or dizziness come to back to emergency room. Should she have chest pain or palpitations please come back to emergency room. In addition patient's echocardiogram showed severe pulmonary pretension, CT of her chest on March 2020 did not show pulmonary embolism, patient was advised to follow-up with Dr. Daigle. Patient possibly has a history of COPD, has never had pulmonary function testing, is on 2 L oxygen at home. For chronic anticoagulation second to mechanical mitral valve replacement, patient's INR on discharge was supratherapeutic at 4.42. Patient was advised to hold 4 mg of Coumadin today, tomorrow. Recheck INR on Monday with re-dosing of Coumadin based on INR through Dr. Mccormick's office. Patient has a history of chronic microcytic anemia requiring blood transfusions, patient's baseline hemoglobin is between 8-9, hemoglobin on discharge was 8.9, patient was advised to recheck CBC on Monday. Physical Exam Const: COMMON NORMALS: no acute distress and patient oriented x3 HENMT: COMMON NORMALS: normocephalic HEAD & SCALP: normocephalic Neck/C-Spine: COMMON NORMALS: no JVD Resp: COMMON NORMALS: normal respiratory effort, No retractions, No use of accessory muscles and clear to auscultation bilaterally AUSCULTATION: clear to auscultation bilaterally Cardio: COMMON NORMALS: no JVD, regular rate, regular rhythm, S1 normal heart sound present and S2 normal heart sound present RATE: regular rate RHYTHM: regular rhythm HEART SOUNDS: S1 normal heart sound present and S2 normal heart sound present GI: COMMON NORMALS: Normal to inspection, nondistended, normoactive bowel sounds present, Soft to palpation, non-tender, No hepatosplenomegaly present, no masses and no bruits PALPATION: Yes Soft to palpation and Yes No hepatosplenomegaly present Extremity: COMMON NORMALS: capillary refill normal, no clubbing, cyanosis or edema, no calf tenderness and no pedal edema Neuro: COMMON NORMALS: patient oriented x3 Psych: COMMON NORMALS: mental status grossly normal Discharge Data Data Completed and Pending: Completed Studies During Hospitalization Category Date Time Status XR chest 1V mary ble [id number] Urgent Exams 04/24/20 01:28 Completed Pending at discharge Category Date Time Status Complete Blood Co unt w/Auto AM LABS Lab 04/26/20 04:00 Ordered Complete Blood Co unt w/Auto AM LABS Lab 04/27/20 04:00 Ordered Comprehensive Met abolic Panel AM LA BS Lab 04/26/20 04:00 Ordered Comprehensive Met abolic Panel AM LA BS Lab 04/27/20 04:00 Ordered Magnesium AM LABS Lab 04/26/20 04:00 Ordered Magnesium AM LABS Lab 04/27/20 04:00 Ordered Phosphorus AM LAB S Lab 04/26/20 04:00 Ordered Phosphorus AM LAB S Lab 04/27/20 04:00 Ordered Prothrombin Time INR AM LABS Lab 04/26/20 04:00 Ordered Prothrombin Time INR AM LABS Lab 04/27/20 04:00 Ordered Labs from last 24 hours 04/25/20 04/25/20 04/25/20 13:15 05:27 05:27 WBC RBC Hgb 8.9 L Hct 31.5 L MCV MCH MCHC RDW Plt Count MPV Neut % (Auto) Lymph % (Auto) [place] % (Auto) Eos % (Auto) Baso % (Auto) Neut # (Auto) Lymph # (Auto) [place] # (Auto) Eos # (Auto) Baso # (Auto) Nucleated RBC % (a uto) Nucleated RBCs # PT 43.90 H INR 4.42 H Sodium 145 Potassium 3.7 Chloride 99 Carbon Dioxide 39 H Anion Gap 10.7 BUN 13 Creatinine 0.5 Glucose 98 Calculated Osmolal ity 296 H Calcium 8.5 Phosphorus 2.9 Magnesium 2.5 H Total Bilirubin 1.1 AST 9 ALT < 5 Alkaline Phosphata se 109 H Total Protein 6.1 L Albumin 3.6 Globulin 2.5 04/25/20 05:27 WBC 3.4 L RBC 3.11 L Hgb 8.5 L Hct 29.7 L MCV 95.5 MCH 27.3 L MCHC 28.6 L RDW 18.6 H Plt Count 102 L MPV 10.2 Neut % (Auto) 68.0 Lymph % (Auto) 20.9 [place] % (Auto) 9.6 Eos % (Auto) 0.9 Baso % (Auto) 0.3 Neut # (Auto) 2.3 Lymph # (Auto) 0.7 L [place] # (Auto) 0.3 Eos # (Auto) 0.0 Baso # (Auto) 0.0 Nucleated RBC % (a uto) 0 Nucleated RBCs # 0.0 PT INR Sodium Potassium Chloride Carbon Dioxide Anion Gap BUN Creatinine Glucose Calculated Osmolal ity Calcium Phosphorus Magnesium Total Bilirubin AST ALT Alkaline Phosphata se Total Protein Albumin Globulin Vitals: Last Vital Signs Temp 98.5 F 06/27/20 11:02 Pulse 61 04/25/20 11:02 Resp 16 04/25/20 11:02 BP 126/55 04/25/20 11:02 Pulse Ox 2 L 04/25/20 11:02 Discharge Plan Discharge Patient Disposition: Home, Self-Care Condition: Stable Prescriptions: Continued polyethylene glycol 3350 [Miralax] 17 gram/dose powder 17 gm PO DAILY PRN (Reason: Constipation) RF: 0 fluoxetine 10 mg capsule 10 mg PO DAILY RF: 0 levothyroxine 50 mcg capsule 50 mcg PO DAILY RF: 0 rosuvastatin [Crestor] 10 mg tablet 10 mg PO DAILY RF: 0 carbidopa-levodopa 10-100 mg tablet,disintegrating 1 tab PO BID RF: 0 tolterodine 2 mg tablet 2 mg PO BID RF: 0 potassium chloride [Klor-Con 10] 10 mEq tablet extended release 20 meq PO DAILY RF: 0 sennosides-docusate sodium 8.6-50 mg Tablet 2 tab PO BID Qty: 120 RF: 0 Dexilant 30 mg capsule,biphase delayed releas 30 mg PO DAILY Qty: 30 RF: 0 ferrous gluconate 324 mg (37.5 mg iron) tablet 324 mg PO BID Qty: 60 RF: 0 furosemide 40 mg Tablet 40 mg PO DAILY@0800 Qty: 30 RF: 0 isosorbide mononitrate 60 mg tablet extended release 24 hr 30 mg PO DAILY Qty: 30 RF: 0 Changed metoprolol tartrate 25 mg Tablet 6.25 mg PO Q12H Qty: 60 RF: 0 Held warfarin 2 mg Tablet 4 mg PO DAILY@1400 Qty: 15 RF: 0 Hold Instructions: Resume on 04/27/20. RECHECK INR ON MONDAY, dosing based on repeat INR Discharge Orders: Discharge Order (Routine); Ordered 04/25/20 Ordered By: Geoff Prince Other Ambulatory Orders: Complete Blood Count w/Auto (Routine) Timeframe: 20200427 Location: Determined by Patient Ordered By: Geoff ROSEN cardiac event monitor (Routine) Timeframe: 2 Days Facility: [facility] - Location: Cardiac Diagnostic Laboratory Ordered By: Geoff Prince Prothrombin Time INR (Routine) Timeframe: 20200427 Facility: [facility] - Location: Lab - Main Lab Ordered By: Geoff Prince Referrals: [facility] [Outside] [facility] Home Care ([facility]) [Outside] Surinder Mays MD [Physician] - 2 weeks Michael Hampton DO [Primary Care Provider] - 04/27/20 (Please, call for an follow-up appointment with Dr. Blanchard on Monday, April 27 for INR draw. ) Brijesh Daigle MD [Physician] - 2 weeks ([facility] will be contacting you to schedule an appointment in 2 weeks. If you havven't heard from them by Monday afternoon. Please, call ) Discharge Diet: Cardiac Discharge Activity: Resume usual activity Patient Instructions: Heart Failure (DC), Weakness (GEN), Dyspnea (GEN), CHF Stoplight Activity Restrictions/Additional Instructions: -Hold Coumadin on Monday and Monday -Recheck INR Monday -Recheck CBC on Monday -Please follow-up with Dr. Park on Monday for dosing of Coumadin -Take Lasix 40 mg daily -Reduce dose of metoprolol from 12.5 twice daily to 6.25 twice daily for sinus bradycardia -If you feel lightheaded or dizzy, please come back to the emergency room -If you have chest pain, palpitations, please come to the emergency room -Holter monitor ordered for the next 30 days, follow-up with cardiology Discharge Attestations Time Spent in Discharge Care*: less than 30 min Status at Discharge: Cognitive status at discharge: cognitively intact, Behavioral status at discharge: cooperative, Quality Metrics Clinical Quality Measures During this hospital stay, did patient experience: None Coding Level of Care Code Acute Focusing Machine Operator for Norma Fwd Exam Comprehensive Diagnoses Dyspnea on exertion R06.00 Weakness R53.1 Chronic anticoagulation Z79.01 Schatzki's ring K22.2 Diastolic CHF I50.33 Heart failure chronicity: acute on chronic Parkinson disease G20 Mitral valve replaced Z95.2 Physical deconditioning R53.81
--- NOTE | 2020-04-25 15:11 | PC.NURSE ---
DISCHARGE NOTE- IV removed for d/c instructions read to patient and called to daughter Jennifer. Voiced understanding. BECKYW, MACHINE HOSTLER
[2020-04-25 15:49] VITALS: BP 126/55; PULSE 61; RESP 16; TEMP 36.9; O2SAT 2
== END 2020-04-25 15:50 | disposition home or self-care (01) ==
LOC: ER 01:39 → CSU 03:16
PROVIDERS: Emergency Medicine; Admitting Provider Internal Medicine; PCP Family Medicine; Visit Provider Family Medicine
DX: R06.00 Dyspnea, unspecified (principal); R53.1 Weakness; Z79.01 Long term (current) use of anticoagulants; K22.2 Esophageal obstruction; I11.0 Hypertensive heart disease with heart failure; I50.33 Acute on chronic diastolic (congestive) heart failure; G20 Parkinson's disease; Z95.2 Presence of prosthetic heart valve; R53.81 Other malaise; I48.91 Unspecified atrial fibrillation; R00.1 Bradycardia, unspecified; G47.33 Obstructive sleep apnea (adult) (pediatric); F32.9 Major depressive disorder, single episode, unspecified; Z99.81 Dependence on supplemental oxygen; Z82.49 Family history of ischemic heart disease and other diseases of the circulatory system; Z83.3 Family history of diabetes mellitus; Z87.891 Personal history of nicotine dependence
CPT/HCPCS: 12345; 36415; 71045; 80048; 80053; 83735; 83880; 84100; 85014; 85018; 85025; 85610; 93005; 94640; 96374; 96375; 97110; 97116; 97161; 97166; 97530; 97535; 99283; 99285; G0378; J1100; J1940

== ENCOUNTER 2020-04-27 14:19 | Outpatient (CLI) | payer MEDICARE, MEDICAID, SELFPAY ==
[2020-04-27 15:01] LABS: Eosinophils # 0.1 10^3/uL (0.0-0.8); Eosinophils % 1.7 %; Hematocrit 30.3 % (37.0-47.0); Hemoglobin 8.4 g/dL (11.5-15.3); Lymphocytes # 0.5 10^3/uL (0.8-4.8); Lymphocytes % 15.9 %; Mean Corpuscular HGB Conc 27.7 g/dL (30.0-36.0); Mean Corpuscular Hemoglobin 26.5 pg (28.0-34.0); Mean Corpuscular Volume 95.6 fL (81-99); Mean Platelet Volume 10.3 fL (7.4-10.4); Monocytes # 0.3 10^3/uL (0.2-0.9); Monocytes % 10.2 %; Neutrophils # 2.1 10^3/uL (1.8-7.7); Neutrophils % 71.2 %; Nucleated Red Blood Cells % 0 %; Platelet Count 110 10^3/cmm (130-400); Red Blood Count 3.17 10^6/uL (4.1-5.3); Red Cell Distribution Width 18.8 % (12.1-15.1)
== END 2020-04-27 14:20 | disposition home or self-care (01) ==
LOC: LAB 14:21
PROVIDERS: PCP Family Medicine; Visit Provider Family Medicine
DX: I11.0 Hypertensive heart disease with heart failure (principal)
CPT/HCPCS: 85025

== ENCOUNTER 2020-05-06 08:22 | Outpatient (CLI) | payer MEDICARE, MEDICAID, SELFPAY ==
[2020-05-06 09:30] LABS: Basophils % 0.7 %; Eosinophils # 0.1 10^3/uL (0.0-0.8); Eosinophils % 2.3 %; Hemoglobin 8.7 g/dL (11.5-15.3); Lymphocytes # 0.6 10^3/uL (0.8-4.8); Lymphocytes % 20.4 %; Mean Corpuscular HGB Conc 28.1 g/dL (30.0-36.0); Mean Corpuscular Hemoglobin 28.1 pg (28.0-34.0); Mean Platelet Volume 9.9 fL (7.4-10.4); Monocytes # 0.3 10^3/uL (0.2-0.9); Monocytes % 10.4 %; Neutrophils % 65.9 %; Nucleated Red Blood Cells % 0 %; Platelet Count 146 10^3/cmm (130-400); Red Cell Distribution Width 18.9 % (12.1-15.1)
[2020-05-06 09:40] LABS: INR 3.17 (0.8-1.2)
[2020-05-06 09:54] LABS: Alanine Aminotransferase < 5 U/L (0-33); Albumin Level 3.5 g/dL (3.5-5.2); Alkaline Phosphatase 114 IU/L (35-105); Anion Gap 8.6 (5-19); Aspartate Amino Transferase 11 U/L (0-32); Blood Urea Nitrogen 9 mg/dL (8-23); Calcium 8.2 mg/dL (8.5-10.5); Chloride 98 mmol/L (98-107); Ferritin 68 ng/mL (15-150); Globulin 2.6 g/dL (1.3-4.6); Glucose 92 mg/dL (65-115); Iron 32 ug/dL (37-145); Osmolality Calculated 294 mOsm/kg (285-295); Percent Saturation 12.2 % (20-50); Potassium 3.6 mmol/L (3.5-5.1); Sodium 144 mmol/L (136-145); Total Bilirubin 1.1 mg/dL (0.15-1.2); Total Iron Binding Capacity 261 mcg/dl; Total Protein 6.1 g/dL (6.6-8.7); Unsaturated Iron Binding 229 ug/dL (112-347)
[2020-05-06 10:10] LABS: Vitamin B12 319 pg/mL (232-1245)
[2020-05-06 10:38] LABS: Carbon Dioxide 41 mmol/L (22-29)
== END 2020-05-06 08:23 | disposition home or self-care (01) ==
LOC: ONCMED 09:09
PROVIDERS: PCP Family Medicine; Visit Provider Internal Medicine Hematology & Oncology
DX: D50.9 Iron deficiency anemia, unspecified (principal); I11.0 Hypertensive heart disease with heart failure; I50.9 Heart failure, unspecified; I48.91 Unspecified atrial fibrillation; J44.9 Chronic obstructive pulmonary disease, unspecified; I25.10 Atherosclerotic heart disease of native coronary artery without angina pectoris; E78.5 Hyperlipidemia, unspecified; E03.9 Hypothyroidism, unspecified; G47.33 Obstructive sleep apnea (adult) (pediatric); G20 Parkinson's disease
CPT/HCPCS: 80053; 82607; 82728; 83540; 83550; 85025; 85610

== ENCOUNTER 2020-05-06 14:53 | Emergency (ER) | payer MEDICARE, MEDICAID, SELFPAY ==
[2020-05-06 14:54] VITALS: BP 161/96; PULSE 62; RESP 20; TEMP 36.8; O2SAT 99; BMI 28.7
--- NOTE | 2020-05-06 15:00 | ECG_ITS ---
[facility] Test Date: 2020-05-06 Pat Name: Iris Garcia Department: Room: Gender: Female Trimmer Hand: : 1940 Requested By: James Adrian Order Number: [id number] Krupa MD: Tere Teixeira M.D. Measurements Intervals [place] Rate: 61 P: [place]: -1 QRS: 22 QRSD: 90 T: 3 QT: 418 QTc: 423 Interpretive Statements ATRIAL FIBRILLATION ABNORMAL RHYTHM ECG ARTIFACT Compared to ECG 04/24/2020 02:05:39 Sinus rhythm no longer present Sinus arrhythmia no longer present Electronically Signed On 05-07-2020 22:26:52 CDT by Tere Teixeira M.D. [email or web address] [email or web address]/store/[id number] f
--- NOTE | 2020-05-06 15:00 | XRR_ITS ---
PROCEDURE INFORMATION: Exam: XR Chest, 1 View Exam date and time: 05/06/2020 3:21 PM Age: 79 years old Clinical indication: Prior surgery; Surgery type: Valve replacement; Patient HX: Chronic shortness of breath, HX of congestive heart failure; Additional info: SOB TECHNIQUE: Imaging protocol: XR of the chest Views: 1 view. COMPARISON: CR XR chest 1V portable [id number] 04/24/2020 1:44 AM FINDINGS: Lungs: Bilateral hilar vascular congestion is seen. No consolidation. Pleural space: Unremarkable. No pleural effusion. No pneumothorax. Heart/Mediastinum: There is cardiomegaly for projection. There is a metallic cardiac valve prosthesis present. Bones/joints: Metallic sternotomy wires are in place. XR/XR chest 1V portable [id number] IMPRESSION: 1. Cardiomegaly for projection. 2. Status post sternotomy 3. Cardiac valve prosthesis 4. Bilateral hilar vascular congestion
[2020-05-06 15:12] VITALS: PULSE 101; RESP 20; O2SAT 100
[2020-05-06 15:13] LABS: Basophils % 0.9 %; Eosinophils # 0.1 10^3/uL (0.0-0.8); Eosinophils % 1.7 %; Hematocrit 31.6 % (37.0-47.0); Hemoglobin 8.8 g/dL (11.5-15.3); Lymphocytes # 0.8 10^3/uL (0.8-4.8); Lymphocytes % 22.6 %; Mean Corpuscular HGB Conc 27.8 g/dL (30.0-36.0); Mean Corpuscular Hemoglobin 27.3 pg (28.0-34.0); Mean Corpuscular Volume 98.1 fL (81-99); Mean Platelet Volume 9.5 fL (7.4-10.4); Monocytes # 0.3 10^3/uL (0.2-0.9); Monocytes % 8.9 %; Neutrophils # 2.29 10^3/uL (1.8-7.7); Neutrophils % 65.6 %; Nucleated Red Blood Cells % 0 %; Platelet Count 152 10^3/cmm (130-400); Red Blood Count 3.22 10^6/uL (4.1-5.3); Red Cell Distribution Width 18.7 % (12.1-15.1); White Blood Count 3.5 10^3/uL (4.0-10.0)
--- NOTE | 2020-05-06 15:14 | W.ED.SOB ---
HPI - SOB/Dyspnea General: Chief Complaint: Shortness of Breath/Dyspnea Stated Complaint: SOB Time Seen by Provider: 05/06/20 15:01 Source: patient and EMS Mode of arrival: EMS Limitations: no limitations History of Present Illness: HPI Narrative: 79-year-old female who states she has been having shortness of breath over the last 3 to 4 days. Patient had labs drawn today by her home health. She denies any chest pain. She denies any worsening improving factors. Patient is currently in no distress here at this time. Associated symptoms: Deny abdominal pain, chest pain, fever(s), nausea or vomiting Review of Systems Const: Denies: fever(s), chills, body aches or change in appetite Eyes: Denies: blurry vision or eye discomfort ENMT: Denies: throat pain or dental pain Card: Denies: chest pain Resp: Reports: dyspnea GI: Denies: abdominal pain, nausea, vomiting or diarrhea : Denies: dysuria Musc: Denies: neck pain or back pain Skin/Breast: Denies: rash Neuro: Denies: headache(s) Psych: Denies: depression Jesus Alberto/Lymph: Denies: easy bruising All/Imm: Denies: urticaria PFSH ED PFSH: Medical History Afib Chronic anticoagulation Due to mechanical mitral valve; coumadin Chronic hypercapnic respiratory failure COPD (chronic obstructive pulmonary disease) Former smoker, occasional use of breathing treatments Depression On fluoxetine with good control Diastolic CHF GERD (gastroesophageal reflux disease) PPI HTN (hypertension) Hypothyroidism Iron deficiency anemia Has required transfusion in past, last egd and colonoscopy ~2017 with diverticulosis and internal hemorrhoids, no clear source of bleeding SONYA (obstructive sleep apnea) Uses 2 L of oxygen at night does not use CPAP Parkinson disease Sinimet Schatzki's ring Surgical History History of bilateral tubal ligation History of cholecystectomy History of total knee arthroplasty Left Mitral valve replaced Mechanical, on coumadin Family History Mother CAD (coronary artery disease) Diabetes Other Hypertension Social History Smoking and tobacco status: former smoker Alcohol intake: never Household members: spouse Housing: House Physical Exam Const: COMMON NORMALS: no acute distress, patient oriented x3 and healthy appearing HENMT: COMMON NORMALS: normocephalic and atraumatic HEAD & SCALP: normocephalic and atraumatic Eye: COMMON NORMALS: Equal, round and reactive pupils present and EOMs intact bilaterally PUPIL: Yes Equal, round and reactive pupils present Neck/C-Spine: COMMON NORMALS: full ROM and supple Chest: COMMONS NORMALS: normal inspection of the chest and normal palpation of entire chest wall Resp: COMMON NORMALS: normal respiratory effort, No retractions, No use of accessory muscles and clear to auscultation bilaterally AUSCULTATION: clear to auscultation bilaterally Cardio: COMMON NORMALS: regular rate, regular rhythm and No murmurs present (Cardio) RATE: regular rate RHYTHM: regular rhythm GI: COMMON NORMALS: Normal to inspection, nondistended, normoactive bowel sounds present, Soft to palpation, non-tender and no masses PALPATION: Yes Soft to palpation Extremity: COMMON NORMALS: normal to inspection and full ROM Neuro: COMMON NORMALS: patient oriented x3, moves all extremities and no focal motor deficits Psych: COMMON NORMALS: mental status grossly normal, Normal thought process present and cooperative THOUGHT PROCESS: Normal thought process present Skin: COMMON NORMALS: no rashes or lesions noted and no wounds GENERAL SKIN EXAM: no rashes or lesions noted Course Vital Signs: Vital signs: Vital Signs Temperature 98.2 F 05/06/20 14:54 Pulse Rate 77 05/06/20 16:53 Respiratory Rate 20 H 05/06/20 16:53 Blood Pressure 107/54 05/06/20 16:53 Pulse Oximetry 100 05/06/20 16:53 MDM - SOB/Dyspnea MDM Narrative: Medical decision making narrative: Iris presents for shortness of breath that is chronic in nature. She is not requiring any oxygen here and is in no distress. BNP is normal and x-ray is normal as well. She has follow-up with Dr. Valentine tomorrow she states. We will give her IV Lasix and she is to follow-up then. Patient is return if worsening. Lab Data: Labs: Lab Results 05/06/20 05/06/20 05/06/20 Range/Units 15:05 15:05 15:05 WBC 3.5 L (4.0-10.0) 10^3/ uL RBC 3.22 L (4.1-5.3) 10^6/u L Hgb 8.8 L (11.5-15.3) g/dL Hct 31.6 L (37.0-47.0) % MCV 98.1 (81-99) fL MCH 27.3 L (28.0-34.0) pg MCHC 27.8 L (30.0-36.0) g/dL RDW 18.7 H (12.1-15.1) % Plt Count 152 (130-400) 10^3/c mm MPV 9.5 (7.4-10.4) fL Neut % (Auto) 65.6 % Lymph % (Auto) 22.6 % [place] % (Auto) 8.9 % Eos % (Auto) 1.7 % Baso % (Auto) 0.9 % Neut # (Auto) 2.29 (1.8-7.7) 10^3/u L Lymph # (Auto) 0.8 (0.8-4.8) 10^3/u L [place] # (Auto) 0.3 (0.2-0.9) 10^3/u L Eos # (Auto) 0.1 (0.0-0.8) 10^3/u L Baso # (Auto) 0.0 (0.0-0.1) 10^3/u L Nucleated RBC % (a uto) 0 % Nucleated RBCs # 0.0 /100WBC PT 34.00 H (10.5-13.3) SECO NDS INR 3.20 H (0.8-1.2) Sodium 142 (136-145) mmol/L Potassium 4.1 (3.5-5.1) mmol/L Chloride 99 (98-107) mmol/L Carbon Dioxide 38 H (22-29) mmol/L Anion Gap 9.1 (5-19) BUN 8 (8-23) mg/dL Creatinine 0.5 (0.5-0.9) mg/dL Glucose 97 (65-115) mg/dL Calculated Osmolal ity 290 (285-295) mOsm/k g Calcium 8.6 (8.5-10.5) mg/dL Total Bilirubin 1.2 (0.15-1.2) mg/dL AST 12 (0-32) U/L ALT < 5 (0-33) U/L Alkaline Phosphata se 113 H (35-105) IU/L NT-Pro-B Natriuret Pep 814 H (0-450) pg/mL Total Protein 6.2 L (6.6-8.7) g/dL Albumin 3.6 (3.5-5.2) g/dL Globulin 2.6 (1.3-4.6) g/dL Imaging Data^: CXR: Radiologist's impression: Ordering Physician: James Adrian ID: [id number] Phone, Pager: Phone: N/A Pager: N/A : 1940 Age/Gender: 79Y, F Primary Location: ER Procedure: XR chest 1V portable [id number] Study Date: 05/06/2020 3:25:58 PM Order #: [id number] Report Status: Finalized Reason: [place] [address] XRay Report Signed Patient: Iris Garcia Unit #: [id number] : 1940 Age/Sex: 79 / F ADM Date: 05/06/20 Loc: ER Room/Bed: Attending Dr: Ordering Provider/Ordering MD: James Adrian MD Date of Service: 05/06/20 Procedure(s): XR chest 1V portable [id number] Accession Number(s): [id number] Report Number: [id number] PROCEDURE INFORMATION: Exam: XR Chest, 1 View Exam date and time: 05/06/2020 3:21 PM Age: 79 years old Clinical indication: Prior surgery; Surgery type: Valve replacement; Patient HX: Chronic shortness of breath, HX of congestive heart failure; Additional info: SOB TECHNIQUE: Imaging protocol: XR of the chest Views: 1 view. COMPARISON: CR XR chest 1V portable [id number] 04/24/2020 1:44 AM FINDINGS: Lungs: Bilateral hilar vascular congestion is seen. No consolidation. Pleural space: Unremarkable. No pleural effusion. No pneumothorax. Heart/Mediastinum: There is cardiomegaly for projection. There is a metallic cardiac valve prosthesis present. Bones/joints: Metallic sternotomy wires are in place. XR/XR chest 1V portable [id number] IMPRESSION: 1. Cardiomegaly for projection. 2. Status post sternotomy 3. Cardiac valve prosthesis 4. Bilateral hilar vascular congestion EKG Data^: EKG 1: Attestation: I personally reviewed and interpreted this EKG as follows: EKG Interpretation Date: 05/06/20 EKG interpretation time: 15:11 Interpretation: afib hr [address] or t wave abnormalities qrs 90 qtc 421 Discharge Plan Discharge Patient Disposition: Home, Self-Care Clinical Impression: Shortness of breath Condition: Stable Prescriptions: No Action polyethylene glycol 3350 [Miralax] 17 gram/dose powder 17 gm PO DAILY PRN (Reason: Constipation) RF: 0 fluoxetine 10 mg capsule 10 mg PO DAILY RF: 0 levothyroxine 50 mcg capsule 50 mcg PO DAILY RF: 0 rosuvastatin [Crestor] 10 mg tablet 10 mg PO DAILY RF: 0 carbidopa-levodopa 10-100 mg tablet,disintegrating 1 tab PO BID RF: 0 tolterodine 2 mg tablet 2 mg PO BID RF: 0 metoprolol tartrate 25 mg Tablet 6.25 mg PO Q12H Qty: 60 RF: 0 potassium chloride [Klor-Con 10] 10 mEq tablet extended release 20 meq PO DAILY RF: 0 sennosides-docusate sodium 8.6-50 mg Tablet 2 tab PO BID Qty: 120 RF: 0 Dexilant 30 mg capsule,biphase delayed releas 30 mg PO DAILY Qty: 30 RF: 0 ferrous gluconate 324 mg (37.5 mg iron) tablet 324 mg PO BID Qty: 60 RF: 0 furosemide 40 mg Tablet 40 mg PO DAILY@0800 Qty: 30 RF: 0 warfarin 2 mg Tablet 4 mg PO DAILY@1400 Qty: 15 RF: 0 Hold Instructions: Resume on 04/27/20. RECHECK INR ON MONDAY, dosing based on repeat INR isosorbide mononitrate 60 mg tablet extended release 24 hr 30 mg PO DAILY Qty: 30 RF: 0 Discharge Orders: Discharge Order (Routine); Ordered 05/06/20 Ordered By: James Adrian Referrals: Michael Hampton DO [Primary Care Provider] - Discharge Diet: Advance as tolerated Discharge Activity: Resume usual activity Patient Instructions: Dyspnea (ED) Discharge Date/Time: 05/06/20 17:01 Coding Level of Care Code ED Flight Service Specialist for Zackeryg Fwd Exam Comprehensive
[2020-05-06 16:18] LABS: Alanine Aminotransferase < 5 U/L (0-33); Albumin Level 3.6 g/dL (3.5-5.2); Alkaline Phosphatase 113 IU/L (35-105); Anion Gap 9.1 (5-19); Aspartate Amino Transferase 12 U/L (0-32); Blood Urea Nitrogen 8 mg/dL (8-23); Calcium 8.6 mg/dL (8.5-10.5); Carbon Dioxide 38 mmol/L (22-29); Chloride 99 mmol/L (98-107); Globulin 2.6 g/dL (1.3-4.6); Glucose 97 mg/dL (65-115); NT Pro B Type Natriuretic Pept 814 pg/mL (0-450); Osmolality Calculated 290 mOsm/kg (285-295); Potassium 4.1 mmol/L (3.5-5.1); Sodium 142 mmol/L (136-145); Total Bilirubin 1.2 mg/dL (0.15-1.2); Total Protein 6.2 g/dL (6.6-8.7)
[2020-05-06 16:30] VITALS: BP 107/54; PULSE 66; RESP 20; O2SAT 100
[2020-05-06] MEDS: FUROsemide 10 mg/mL SDV 4mL 40 MG IVP (16:50)
[2020-05-06 16:53] VITALS: BP 107/54; PULSE 77; RESP 20; O2SAT 100
== END 2020-05-06 17:01 | disposition home or self-care (01) ==
PROVIDERS: Emergency Provider Emergency Medicine; PCP Family Medicine
DX: R06.02 Shortness of breath (principal); Z79.01 Long term (current) use of anticoagulants; I48.91 Unspecified atrial fibrillation; J44.9 Chronic obstructive pulmonary disease, unspecified; I11.0 Hypertensive heart disease with heart failure; I50.30 Unspecified diastolic (congestive) heart failure; G20 Parkinson's disease; Z87.891 Personal history of nicotine dependence
CPT/HCPCS: 12345; 36415; 71045; 80053; 83880; 85025; 85610; 93005; 96374; 96375; 99282; 99284; J1940

== ENCOUNTER 2020-05-07 10:17 | Outpatient (CLI) | payer MEDICARE, MEDICAID, SELFPAY ==
--- NOTE | 2020-05-07 11:17 | ONC FU_ITS ---
Dr. Bullock follow up note Patient: Iris Garcia Unit #: [id number]: 1940 Dicatated By: Lakia Bullock M.D.Date of Visit:May 07, 2020 Onc Med Follow-up/Prog Note History of Present Illness: Mrs Iris Garcia, 79 -year-old female with a history of anemia, initially, about 6-7 years ago , she had an episode of generalized weakness and fatigue, for that she went to Hospital in [facility]. At that time she was told about anemia and she was given 2 units of packed RBCs she felt like a new person. No iron supplements were given and she did very well until March this year when again she started feeling weak and tired and came to [facility] she was given blood transfusion again for anemia not sure one or 2 units were given. Again felt better , till first week of May 2017, when she started feeling weak and tired again and came back to [facility] found to be anemic was given 4 units of packed RBCs and 2 units of plasma for elevated PT/INR she is on Coumadin for A. fib and [facility]'s mitral valve again felt better hemoglobin improved from 6.9 on 05/29/2017 gone up to 9.7 on 05/31/2017 with MCV 76.4 and normal white blood count and platelets. And again not on any iron or B12 supplements. She denies any melena or hematochezia , no jaundice or hematuria, no evidence of gross bleeding she had EGD and colonoscopy done on 03/14/[address] Zechariah Prabhakar and it shows normal EGD except Schatzki ring noted along with small hiatal hernia. And colonoscopy shows internal hemorrhoids and 5 mm pedunculated polyp was removed from cecum Interim history, since her last visit on 11/08/2018 when her hemoglobin was 12.8 hematocrit 39.2, patient was admitted to hospital on 02/10/2019 with hemoglobin 6.9 g and hematocrit 23.3 g and iron studies shows ferritin 21, TIBC 331, iron saturation 5.1, iron level XVIII, haptoglobin less than 10, B12 416 reticulocyte count 2.6, patient was given 2 units of packed RBC with that her hemoglobin improved to 9.7 and hematocrit 30 with normal white blood count and platelets. Patient was admitted to hospital again on 04/08/2019 at that time hemoglobin was 7.4 hematocrit 23.6, 2 units of packed RBC were ordered but patient developed reaction after first unit of packed RBC, become hypotensive, so second unit of packed RBC was not given. Patient is not on oral iron supplement, because of history of intolerance. On her follow-up visit from 05/06/2019, she was found to be anemic with a hemoglobin of 8.4. Her iron saturation at that time was 7.7% and her ferritin was 32. Her iron was 29. She was given 2 doses of Injectafer one on 05/07/2019 and the second on 05/15/2019. She reports that she did have endoscopy camera placed in on . It is now 11.6 today and her iron saturation is now 16.4% with ferritin been at 109 and iron level is now 38. Weekly Injectafer ???2 was repeated in August 2019 Her daughter states that she does seem to be feeling some better as well.She underwent capsule endoscopy on 06/12/2019 and .As per patient her capsule camera got stuck in her small bowel so capsule endoscopy was not completed.But note from hobbing machine operator Dr. Zacarias Lackey at [facility] , mentioned that capsule did not travel fast enough Through small bowel in designated 8 hours so it was an incomplete study, no active bleeder was seen but some patchy erythema was noted. Since her last visit on March 12, 2020, patient was admitted to hospital with episode of fall sustaining rib injury and she was transferred to [facility] in [place] and as per daughter about 2-1/2 weeks ago she was not hospital with progressive shortness of breath and her hemoglobin was around 4.9 g, she was given 3 units of packed RBCs as inpatient with that her overall condition improved and then on May 06, 2020 she went to [facility] with progressive shortness of breath and her lab work-up showed white blood count 3 hemoglobin 8.7 hematocrit 31 platelets 146,000, she was treated with diuretic for fluid overload and was discharged home. Came for follow-up, complaining of generalized weakness and fatigue but no chest pain no lightheadedness no palpitation, she is on home oxygen. Patient has atrial fibrillation and on chronic anticoagulation with Coumadin, now being managed by Dr. Mays, special needs teacher. Patient denies any melena no hematochezia but she used to take oral iron, as per patient she could not tolerate well and now not taking it anymore. But denies any jaundice denies any hemoptysis or hematemesis denies any abdominal pain or fullness.Last time she was given infusional iron was in August 2019, at that time she responded very well with normalization of iron deficiency anemia. Medications: Acetaminophen 1 - 2 Tablet (of 325 mg) Oral daily PRN, Aspirin 1 Tablet (of 81 mg) Tablet, enteric coated Oral daily, Bisacodyl Suppository Rectal PRN, Carbidopa-Levodopa 1 Tablet (of 10-100 mg) Tablet Dispersable Oral daily, Enema Enema Rectal PRN, FLUoxetine HCl 1 Tablet (of 10 mg) Capsule Oral daily, Furosemide 2 Tablet (of 40 mg) Oral b.i.d., Isosorbide Mononitrate ER 3 Tablet (of 20 mg) Tablet SR 24 HR Oral daily, Levothroid 2 Tablet (of 50 mcg) Oral daily, Mephyton 1 Tablet (of 5 mg) Oral daily, Metoprolol Tartrate 2 mg (of 12.5 mg) Tablet Oral b.i.d., Milk of Magnesia Suspension Oral PRN, MiraLax 1 Pack Oral daily, Nitroglycerin 1 (0.4 mg) Tablet, sublingual Sublingual PRN, Omeprazole 1 Tablet (of 20 mg) Tablet, enteric coated Oral daily, Potassium Chloride ER 2 Tablet (of 10 meq) Tablet, controlled release Oral b.i.d., Rosuvastatin Calcium 1 (10 mg) Tablet Oral daily, Tolterodine Tartrate 1 (2 mg) Tablet Oral b.i.d., Verapamil HCl ER 1 Tablet (of 180 mg) Tablet, controlled release Oral daily, Warfarin Sodium 1 Tablet (of 2 mg) Oral daily Allergies: Penicillins Review of Systems: Constitutional - Appetite is fair. No fever, chills, hot flashes, or night sweats. Energy level continues to be poor, ENMT - No sinus congestion/drainage. No mouth sores. No sore throat or difficulty swallowing.Patient states she gets dry mouth, Hematologic/Lymphatic - No abnormal bruising or bleeding, Respiratory - Shortness of breath with exertion. No cough. No pleuritic pain or hemoptysis, Cardiovascular - No angina pain. No palpitations, Gastrointestinal - No nausea or vomiting. No heartburn or acid reflux. No diarrhea, frequent constipation. No blood in the stool or black stools, Genitourinary (F) - No dysuria or hematuria. No urinary frequency. No urgency, patient does have incontinence, Musculoskeletal - Chronic arthritic joint pain, Integumentary - Denies alopecia, blistering, bruising, dry skin, facial burning, nail changes, photosensitivity, pruritus, rash and urticaria, Neurologic - Occasional headache without dizziness. Patient reports numbness/paresthesias in fingertips and toes.No other focal neurologic symptoms, Psychiatric - No anxiety or depression. No insomnia. Vital Signs: Performed on May 07, 2020 10:30 Height - 60.00 in Weight - 145.0 lbs (HIGH) BSA - 1.63 sq.m BMI - 28.32 Temperature - 99.1 F (HIGH) Pulse - 87 /min Respiration - 24 /min BP - 136/46 mm(hg) O2 Sat - 97 % Pain - 0 Performance Status: 2 - Ambulatory/capable of all self-care, unable to perform any work activities. Up and about more than 50% of waking hours. (ECOG) Physical Examination: ENMT - No mouth sores, no thrush, no jaundice, Respiratory - Lungs are clear, Cardiovascular - Irregular Rate/rhythm, Abdomen - Soft, bowel sounds present, Extremities - 1+ edema with chronic rash/pigmentation involving lower extremities probably due to chronic venous stasis. Lab/Imaging: Test performed on March 12, 2020 11:30 Ferritin 97 ng/mL Vitamin B12 368 pg/mL % Iron Saturation 13.2 % Glucose 80 mg/dL BUN 8 mg/dL Iron, Total 30 mcg/dL Creatinine 0.7 mg/dL TIBC 227 mcg/dL Cr Clearance (Est) 64.86 mL/min Sodium 143 mmol/L Potassium 4.0 mmol/L Chloride 101 mmol/L CO2 34 mmol/L Calcium 8.7 mg/dL Protein, Total 6.3 g/dL Albumin 3.6 g/dL Globulin 2.7 g/dL Bilirubin, Total 0.6 mg/dL Alkaline Phosphatase 117 IU/L AST (SGOT) 13 IU/L ALT (SGPT) 5 IU/L PT 29.20 sec WBC 3.6 10^9/L INR 2.64 RBC 9.65 10^12/L HGB 9.5 g/dL HCT 34.2 % MCV 93.7 fl MCH 26.0 pg MCHC 27.8 g/dL RDW 20.5 % Platelet Count 157 10^9/L MPV 10.8 fL Neutrophils (Gran) 2.4 10^9/L Lymphocytes 0.8 10^9/L Monocytes 0.3 10^9/L Eosinophils 0.1 10^9/L Basophils 0.0 10^9/L Manual Lymphocytes 23.1 % Manual Monocytes 8.2 % Manual Eosinophils 1.4 % Manual Basophils 0.8 % Test performed on Dec 20, 2019 06:20 UIBC 110 ug/dL Neutrophil % 60.7 % Lymphocyte % 25.8 % Monocyte % 10.7 % Eosinophil % 2.4 % Basophils % 0.2 % Impression: 1 . Microcytic hypochromic anemia etiology multifactorial including iron deficiency due to chronic blood loss or malabsorption or both, underlying myelodysplasia cannot be ruled out 2. On chronic anticoagulation with Coumadin for A. fib and [facility]'s mitral valve 3. Internal hemorrhoids 4. on 03/14/2017 EGD showed Schatzki ring noted along with a small hiatal hernia and colonoscopy showed internal hemorrhoids with 5 mm pedunculated polyp removed with a snare from cecum Status post Injectafer 750 mg weekly ???2 on September 12, 2019 and September 19, 2019 and July 12 and 07/19/2017 and CBC on 08/02/2017 showed hemoglobin 11.9 compared to 10.3 on 07/05/2017 ferritin 350 on 08/02/2017 compared to 56.8 on 06/13/2017 And during follow-up on 05/07/2018 her hemoglobin was 12.4 hematocrit 37.3 and on 11/08/2018 her hemoglobin was 12.8 hematocrit 39.2. Remote history of hematuria status post cystoscopy many years ago it was unremarkable. Clinically, patient had been doing reasonably well with [id number] symptoms due to progressive iron deficiency anemia. due to probably chronic blood loss, considering her age underlying myelodysplasia cannot be ruled out. In the past, she had responded very well to Injectafer infusion, last time was given in June 2017, since then never required blood transfusion and maintain her hemoglobin in and around normal range till her last visit on 11/08/2018 at that time his CBC shows white blood count 4.7 hemoglobin 12.8 g hematocrit 39.2 platelets 150,000. Patient was supposed to come back in 3 months but lost follow-up. On her follow-up visit from 05/06/2019, she was found to be anemic with a hemoglobin of 8.4. Her iron saturation at that time was 7.7% and her ferritin was 32. Her iron was 29. She was given 2 doses of Injectafer one on 05/07/2019 and the second on 05/15/2019. She reports that she did have endoscopy camera placed on 06/17/19 As per patient her capsule camera got stuck in her small bowel and capsule endoscopy was not completed. But whatever part was examined did not show any bleeding. Plan: Discussed with patient and family regarding her labs white blood count 3 hemoglobin 8.7 hematocrit 31 platelets 146,000 with ANC 2000 CMP within normal limits ferritin 68, iron saturation 12.2%, which is low iron 32 L, B12 317 and INR 3.17 Clinically, patient is doing reasonably well now on home oxygen and was recently admitted to hospital with progressive iron deficiency anemia, as per family she was given 3 units of packed RBCs about 2 and half weeks ago, patient is on chronic anticoagulation for atrial fibrillation so could be losing blood from small bowel as her capsule endoscopy was inconclusive due to technical problem. As in the past she has responded very well to parenteral iron, we will consider Injectafer 750 mg IV weekly x2 for iron deficiency anemia and repeat her CBC and iron studies in a month after second infusion when she return to clinic for follow-up. As far as chronic anticoagulation, Dr. Mays is monitoring her PT/INR., Would recommend, if not contraindicated, to keep her INR on the lower side of therapeutic range to minimize risk of chronic GI blood loss. Signed By: Lakia Bullock M.D. <<Signature on File>>
== END 2020-05-07 10:18 | disposition home or self-care (01) ==
LOC: ONCMED 10:22
PROVIDERS: PCP Family Medicine; Visit Provider Internal Medicine Hematology & Oncology
DX: D50.0 Iron deficiency anemia secondary to blood loss (chronic) (principal); Z99.81 Dependence on supplemental oxygen; I48.91 Unspecified atrial fibrillation; Z79.01 Long term (current) use of anticoagulants; Z79.82 Long term (current) use of aspirin; Z95.2 Presence of prosthetic heart valve; K44.9 Diaphragmatic hernia without obstruction or gangrene
CPT/HCPCS: 99214

== ENCOUNTER 2020-05-13 14:45 | Outpatient (CLI) | payer MEDICARE, MEDICAID, SELFPAY ==
[2020-05-13] MEDS: sodium chloride 0.9% (100 ml) 100 ML 75 ML (15:26)
[2020-05-13] MEDS: ferric carboxy (IVPB) 750 MG in sodium chloride 0.9% (100 ml) 100 ML 460 MG IV (15:26)
== END 2020-05-13 14:46 | disposition home or self-care (01) ==
LOC: ONCMED 14:52
PROVIDERS: PCP Family Medicine; Visit Provider Nurse Practitioner
DX: D50.9 Iron deficiency anemia, unspecified (principal); G20 Parkinson's disease; E78.5 Hyperlipidemia, unspecified; I10 Essential (primary) hypertension; E03.9 Hypothyroidism, unspecified; I25.10 Atherosclerotic heart disease of native coronary artery without angina pectoris
CPT/HCPCS: 96365; J1439

== ENCOUNTER 2020-05-20 14:45 | Outpatient (CLI) | payer MEDICARE, MEDICAID, SELFPAY ==
[2020-05-20] MEDS: ferric carboxy (IVPB) 750 MG in sodium chloride 0.9% (100 ml) 100 ML 460 MG IV (15:25)
== END 2020-05-20 14:46 | disposition home or self-care (01) ==
LOC: ONCMED 14:51
PROVIDERS: PCP Family Medicine; Visit Provider Internal Medicine Hematology & Oncology
DX: D50.9 Iron deficiency anemia, unspecified (principal)
CPT/HCPCS: 96365; J1439

== ENCOUNTER → 2020-05-21 13:15 | Outpatient (BNVA) | payer MEDICARE, MEDICAID, SELFPAY | PROVIDERS: PCP Family Medicine; Visit Provider Nurse Practitioner Family | DX: I50.33 Acute on chronic diastolic (congestive) heart failure (principal); J44.9 Chronic obstructive pulmonary disease, unspecified | CPT/HCPCS: 80048; 83880 ==

== ENCOUNTER 2020-06-24 07:50 | Outpatient (CLI) | payer MEDICARE, MEDICAID, SELFPAY ==
[2020-06-24 08:57] LABS: Basophils % 0.6 %; Eosinophils # 0.1 10^3/uL (0.0-0.8); Eosinophils % 2.2 %; Hematocrit 34.9 % (37.0-47.0); Hemoglobin 10.6 g/dL (11.5-15.3); Lymphocytes # 1.2 10^3/uL (0.8-4.8); Lymphocytes % 37.5 %; Mean Corpuscular HGB Conc 30.4 g/dL (30.0-36.0); Mean Corpuscular Hemoglobin 29.6 pg (28.0-34.0); Mean Corpuscular Volume 97.5 fL (81-99); Mean Platelet Volume 9.9 fL (7.4-10.4); Monocytes # 0.3 10^3/uL (0.2-0.9); Monocytes % 9.9 %; Neutrophils # 1.55 10^3/uL (1.8-7.7); Neutrophils % 49.8 %; Nucleated Red Blood Cells % 0 %; Platelet Count 135 10^3/cmm (130-400); Red Blood Count 3.58 10^6/uL (4.1-5.3); Red Cell Distribution Width 15.7 % (12.1-15.1); White Blood Count 3.1 10^3/uL (4.0-10.0)
[2020-06-24 09:19] LABS: INR 3.02 (0.8-1.2)
[2020-06-24 09:21] LABS: Ferritin 389 ng/mL (15-150); Iron 71 ug/dL (37-145); Percent Saturation 40.5 % (20-50); Total Iron Binding Capacity 175 mcg/dl; Unsaturated Iron Binding 104 ug/dL (112-347)
== END 2020-06-24 07:51 | disposition home or self-care (01) ==
LOC: ONCMED 08:49
PROVIDERS: PCP Family Medicine; Visit Provider Internal Medicine Hematology & Oncology
DX: D50.9 Iron deficiency anemia, unspecified (principal); Z51.81 Encounter for therapeutic drug level monitoring; Z79.01 Long term (current) use of anticoagulants
CPT/HCPCS: 82728; 83540; 83550; 85025; 85610

== ENCOUNTER 2020-06-25 14:07 | Outpatient (CLI) | payer MEDICARE, MEDICAID, SELFPAY ==
--- NOTE | 2020-06-25 16:50 | ONC FU_ITS ---
Dr. Bullock follow up note Patient: Iris Garcia Unit #: [id number]: [id number] Dicatated By: Lakia Bullock M.D.Date of Visit:Jun 25, 2020 Onc Med Follow-up/Prog Note History of Present Illness: Mrs Iris Garcia, 79 -year-old female with a history of anemia, initially, about 6-7 years ago , she had an episode of generalized weakness and fatigue, for that she went to Hospital in [facility]. At that time she was told about anemia and she was given 2 units of packed RBCs she felt like a new person. No iron supplements were given and she did very well until March this year when again she started feeling weak and tired and came to [facility] she was given blood transfusion again for anemia not sure one or 2 units were given. Again felt better , till first week of May 2017, when she started feeling weak and tired again and came back to [facility] found to be anemic was given 4 units of packed RBCs and 2 units of plasma for elevated PT/INR she is on Coumadin for A. fib and [facility]el's mitral valve again felt better hemoglobin improved from 6.9 on 05/29/2017 gone up to 9.7 on 05/31/2017 with MCV 76.4 and normal white blood count and platelets. And again not on any iron or B12 supplements. She denies any melena or hematochezia , no jaundice or hematuria, no evidence of gross bleeding she had EGD and colonoscopy done on 03/14/[address] Zechariah Prabhakar and it shows normal EGD except Schatzki ring noted along with small hiatal hernia. And colonoscopy shows internal hemorrhoids and 5 mm pedunculated polyp was removed from cecum Interim history, since her last visit on 11/08/2018 when her hemoglobin was 12.8 hematocrit 39.2, patient was admitted to hospital on 02/10/2019 with hemoglobin 6.9 g and hematocrit 23.3 g and iron studies shows ferritin 21, TIBC 331, iron saturation 5.1, iron level XVIII, haptoglobin less than 10, B12 416 reticulocyte count 2.6, patient was given 2 units of packed RBC with that her hemoglobin improved to 9.7 and hematocrit 30 with normal white blood count and platelets. Patient was admitted to hospital again on 04/08/2019 at that time hemoglobin was 7.4 hematocrit 23.6, 2 units of packed RBC were ordered but patient developed reaction after first unit of packed RBC, become hypotensive, so second unit of packed RBC was not given. Patient is not on oral iron supplement, because of history of intolerance. On her follow-up visit from 05/06/2019, she was found to be anemic with a hemoglobin of 8.4. Her iron saturation at that time was 7.7% and her ferritin was 32. Her iron was 29. She was given 2 doses of Injectafer one on 05/07/2019 and the second on 05/15/2019. She reports that she did have endoscopy camera placed in on . It is now 11.6 today and her iron saturation is now 16.4% with ferritin been at 109 and iron level is now 38. Weekly Injectafer ???2 was repeated in August 2019 Her daughter states that she does seem to be feeling some better as well.She underwent capsule endoscopy on 06/12/2019 and .As per patient her capsule camera got stuck in her small bowel so capsule endoscopy was not completed.But note from leather goods assembler Dr. Zacarias Lackey at [facility] , mentioned that capsule did not travel fast enough Through small bowel in designated 8 hours so it was an incomplete study, no active bleeder was seen but some patchy erythema was noted. Since her last visit on March 12, 2020, patient was admitted to hospital with episode of fall sustaining rib injury and she was transferred to [facility] in [place] and as per daughter about 2-1/2 weeks ago she was not hospital with progressive shortness of breath and her hemoglobin was around 4.9 g, she was given 3 units of packed RBCs as inpatient with that her overall condition improved and then on May 06, 2020 she went to [facility] with progressive shortness of breath and her lab work-up showed white blood count 3 hemoglobin 8.7 hematocrit 31 platelets 146,000, she was treated with diuretic for fluid overload and was discharged home. He was given Injectafer 750 mg IV on May 13 and 2019 Came for follow-up, denies any specific complaints, no fever chills, no nausea or vomiting, no diarrhea or constipation overall feeling much better, no melena or hematochezia, tolerated parenteral iron well Medications: Acetaminophen 1 - 2 Tablet (of 325 mg) Oral daily PRN, Aspirin 1 Tablet (of 81 mg) Tablet, enteric coated Oral daily, Bisacodyl Suppository Rectal PRN, Bumex 1 Tablet Oral daily, Carbidopa-Levodopa 1 Tablet (of 10-100 mg) Tablet Dispersable Oral daily, Enema Enema Rectal PRN, FLUoxetine HCl 1 Tablet (of 10 mg) Capsule Oral daily, Isosorbide Mononitrate ER 3 Tablet (of 20 mg) Tablet SR 24 HR Oral daily, Levothroid 2 Tablet (of 50 mcg) Oral daily, Mephyton 1 Tablet (of 5 mg) Oral daily, Metoprolol Tartrate 2 mg (of 12.5 mg) Tablet Oral b.i.d., Milk of Magnesia Suspension Oral PRN, MiraLax 1 Pack Oral daily, Nitroglycerin 1 (0.4 mg) Tablet, sublingual Sublingual PRN, Omeprazole 1 Tablet (of 20 mg) Tablet, enteric coated Oral daily, Potassium Chloride ER 2 Tablet (of 10 meq) Tablet, controlled release Oral b.i.d., Rosuvastatin Calcium 1 (10 mg) Tablet Oral daily, Tolterodine Tartrate 1 (2 mg) Tablet Oral b.i.d., Verapamil HCl ER 1 Tablet (of 180 mg) Tablet, controlled release Oral daily, Warfarin Sodium 1 Tablet (of 2 mg) Oral daily Allergies: Penicillins Review of Systems: Review of Systems is not available for this patient. Vital Signs: Performed on Jun 25, 2020 14:14 Height - 60.00 in Weight - 133.0 lbs (LOW) BSA - 1.57 sq.m BMI - 25.97 Temperature - 98.9 F (HIGH) Pulse - 84 /min Respiration - 20 /min BP - 136/112 mm(hg) O2 Sat - 94 % (LOW) Pain - 0 Performance Status: 1 - No physically strenuous activity, but ambulatory and able to carry out light or sedentary work (e.g. office work, light house work). (ECOG) Physical Examination: ENMT - No mouth sores, no thrush, no jaundice, Respiratory - Lungs are clear, Abdomen - Soft, bowel sounds present, Extremities - No visible edema. Lab/Imaging: Test performed on May 06, 2020 08:22 Ferritin 68 ng/mL Iron 32 mcg/dL Sodium 144 mmol/L Vitamin B12 319 pg/mL Iron Binding Capacity (TIBC) 261 mcg/dl Potassium 3.6 mmol/L % Iron Saturation 12.2 % Chloride 98 mmol/L CO2 41 mmol/L UIBC 229 mcg/dL Anion Gap 8.6 BUN 9 mg/dL Creatinine 0.5 mg/dL Cr Clearance (Est) 93.18 mL/min Glucose 92 mg/dL Calcium 8.2 mg/dL Protein, Total 6.1 g/dL Albumin 3.5 g/dL Globulin 2.6 g/dL Bilirubin, Total 1.1 mg/dL ALT (SGPT) < 5 U/L AST (SGOT) 11 U/L Alkaline Phosphatase 114 IU/L PT 33.70 SECONDS INR 3.17 Test performed on May 06, 2020 06:45 WBC 3.0 10 3/uL RBC 3.10 10 6/uL HGB 8.7 g/dL HCT 31.0 % MCV 100.0 fL MCH 28.1 pg MCHC 28.1 g/dL RDW 18.9 % Platelet Count 146 10 3/cmm MPV 9.9 fL Neutrophils 2.0 10 3/uL Lymphocytes 0.6 10 3/uL Monocytes 0.3 10 3/uL Eosinophils 0.1 10 3/uL Basophils 0.0 10 3/uL Neutrophil % 65.9 % Lymphocyte % 20.4 % Monocyte % 10.4 % Eosinophil % 2.3 % Basophils % 0.7 % NRBC % 0 % Test performed on March 12, 2020 11:30 Manual Lymphocytes 23.1 % Manual Monocytes 8.2 % Manual Eosinophils 1.4 % Manual Basophils 0.8 % Impression: 1 . Microcytic hypochromic anemia etiology multifactorial including iron deficiency due to chronic blood loss or malabsorption or both, underlying myelodysplasia cannot be ruled out 2. On chronic anticoagulation with Coumadin for A. fib and [facility]el's mitral valve 3. Internal hemorrhoids 4. on 03/14/2017 EGD showed Schatzki ring noted along with a small hiatal hernia and colonoscopy showed internal hemorrhoids with 5 mm pedunculated polyp removed with a snare from cecum Status post Injectafer 750 mg weekly ???2 on September 12, 2019 and September 19, 2019 and July 12 and 07/19/2017 and CBC on 08/02/2017 showed hemoglobin 11.9 compared to 10.3 on 07/05/2017 ferritin 350 on 08/02/2017 compared to 56.8 on 06/13/2017 And during follow-up on 05/07/2018 her hemoglobin was 12.4 hematocrit 37.3 and on 11/08/2018 her hemoglobin was 12.8 hematocrit 39.2. Remote history of hematuria status post cystoscopy many years ago it was unremarkable. Clinically, patient had been doing reasonably well with [id number] symptoms due to progressive iron deficiency anemia. due to probably chronic blood loss, considering her age underlying myelodysplasia cannot be ruled out. In the past, she had responded very well to Injectafer infusion, last time was given in June 2017, since then never required blood transfusion and maintain her hemoglobin in and around normal range till her last visit on 11/08/2018 at that time his CBC shows white blood count 4.7 hemoglobin 12.8 g hematocrit 39.2 platelets 150,000. Patient was supposed to come back in 3 months but lost follow-up. On her follow-up visit from 05/06/2019, she was found to be anemic with a hemoglobin of 8.4. Her iron saturation at that time was 7.7% and her ferritin was 32. Her iron was 29. She was given 2 doses of Injectafer one on 05/07/2019 and the second on 05/15/2019. She reports that she did have endoscopy camera placed on 06/17/19 As per patient her capsule camera got stuck in her small bowel and capsule endoscopy was not completed. But whatever part was examined did not show any bleeding. Plan: Discussed with patient regarding her labs white blood count 3.1 hemoglobin 10.6 g compared to 8.7 g on May 06, 2020, prior to Injectafer infusion, crit 34.9 platelets 135,000 ferritin 389 compared to 68, iron saturation 40.5% compared to 12.5% Clinically, patient is doing well, significant improvement in overall performance status with improvement in hemoglobin after Injectafer infusion. Overall feeling well no sign of gross bleeding although patient is on chronic anticoagulation. We will continue to monitor return to clinic in 1 month with CBC and iron studies and will consider parenteral iron as needed. Signed By: Lakia Bullock M.D. <<Signature on File>>
== END 2020-06-25 14:08 | disposition home or self-care (01) ==
LOC: ONCMED 14:09
PROVIDERS: PCP Family Medicine; Visit Provider Internal Medicine Hematology & Oncology
DX: D50.9 Iron deficiency anemia, unspecified (principal); I48.91 Unspecified atrial fibrillation; K64.8 Other hemorrhoids; K22.2 Esophageal obstruction; K44.9 Diaphragmatic hernia without obstruction or gangrene; Z79.01 Long term (current) use of anticoagulants; Z86.010 Personal history of colon polyps
CPT/HCPCS: G0463

== ENCOUNTER → 2020-06-26 09:55 | Outpatient (BNVA) | payer MEDICARE, MEDICAID, SELFPAY | PROVIDERS: PCP Family Medicine; Visit Provider Internal Medicine | DX: Z20.828 Contact with and (suspected) exposure to other viral communicable diseases (principal) | CPT/HCPCS: 87635 ==

== ENCOUNTER 2020-06-29 09:19 | Outpatient (CLI) | payer MEDICARE, MEDICAID, SELFPAY ==
--- NOTE | 2020-06-29 14:42 | PFTS_ITS ---
Date of Study:06/29/20 Date of Dictation: MECHANICS: Forced vital capacity (FVC) is reduced. Forced expiratory volume in one second (FEV1) is reduced. FEV1/FVC is normal. FLOW VOLUME LOOP: Narrow with mild scooping. LUNG VOLUMES: Total lung capacity (TLC) is reduced. Residual volume (RV) is normal. DIFFUSING CAPACITY FOR CARBON MONOXIDE: Moderately reduced. INTERPRETATION: The postbronchodilator spirometry is consistent with severe restriction. The patient has significant postbronchodilator response. The lung volumes showed preserved residual volume with mildly reduced total lung capacity. This is inconsistent with the spirometry data. 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 A component of neuromuscular weakness can also not be ruled out. Gas exchange (DLCO) is moderately reduced. MTDD
== END 2020-06-29 09:20 | disposition home or self-care (01) ==
LOC: RT 09:20
PROVIDERS: PCP Family Medicine; Visit Provider Internal Medicine Critical Care Medicine
DX: J96.11 Chronic respiratory failure with hypoxia (principal); J96.12 Chronic respiratory failure with hypercapnia
CPT/HCPCS: 94060; 94726; 94729; J7611

== ENCOUNTER 2020-07-28 08:20 | Outpatient (CLI) | payer MEDICARE, MEDICAID, SELFPAY ==
[2020-07-28 12:22] LABS: Basophils % 0.9 %; Eosinophils # 0.2 10^3/uL (0.0-0.8); Eosinophils % 5.2 %; Hematocrit 34.2 % (37.0-47.0); Hemoglobin 10.2 g/dL (11.5-15.3); Lymphocytes % 30.2 %; Mean Corpuscular HGB Conc 29.8 g/dL (30.0-36.0); Mean Corpuscular Hemoglobin 29.6 pg (28.0-34.0); Mean Corpuscular Volume 99.1 fL (81-99); Mean Platelet Volume 10.5 fL (7.4-10.4); Monocytes # 0.3 10^3/uL (0.2-0.9); Neutrophils # 1.88 10^3/uL (1.8-7.7); Neutrophils % 54.7 %; Nucleated Red Blood Cells % 0 %; Platelet Count 126 10^3/cmm (130-400); Red Blood Count 3.45 10^6/uL (4.1-5.3); Red Cell Distribution Width 14.6 % (12.1-15.1); White Blood Count 3.4 10^3/uL (4.0-10.0)
[2020-07-28 12:47] LABS: Ferritin 231 ng/mL (15-150); Iron 51 ug/dL (37-145); Percent Saturation 27.5 % (20-50); Total Iron Binding Capacity 185 mcg/dl; Unsaturated Iron Binding 134 ug/dL (112-347)
== END 2020-07-28 08:21 | disposition home or self-care (01) ==
LOC: ONCMED 12:06
PROVIDERS: PCP Family Medicine; Visit Provider Internal Medicine Hematology & Oncology
DX: D50.9 Iron deficiency anemia, unspecified (principal)
CPT/HCPCS: 82728; 83540; 83550; 85025

== ENCOUNTER 2020-07-29 15:01 | Outpatient (CLI) | payer MEDICARE, MEDICAID, SELFPAY ==
--- NOTE | 2020-07-29 16:04 | ONC FU_ITS ---
Dr. Bullock follow up note Patient: Iris Garcia Unit #: [id number]: 1940 Dicatated By: Lakia Bullock M.D.Date of Visit:Jul 29, 2020 Onc Med Follow-up/Prog Note History of Present Illness: Mrs Iris Garcia, 79 -year-old female with a history of anemia, initially, about 6-7 years ago , she had an episode of generalized weakness and fatigue, for that she went to Hospital in [facility]. At that time she was told about anemia and she was given 2 units of packed RBCs she felt like a new person. No iron supplements were given and she did very well until March this year when again she started feeling weak and tired and came to [facility] she was given blood transfusion again for anemia not sure one or 2 units were given. Again felt better , till first week of May 2017, when she started feeling weak and tired again and came back to [facility] found to be anemic was given 4 units of packed RBCs and 2 units of plasma for elevated PT/INR she is on Coumadin for A. fib and [facility]'s mitral valve again felt better hemoglobin improved from 6.9 on 05/29/2017 gone up to 9.7 on 05/31/2017 with MCV 76.4 and normal white blood count and platelets. And again not on any iron or B12 supplements. She denies any melena or hematochezia , no jaundice or hematuria, no evidence of gross bleeding she had EGD and colonoscopy done on 03/14/[address] Zechariah Prabhakar and it shows normal EGD except Schatzki ring noted along with small hiatal hernia. And colonoscopy shows internal hemorrhoids and 5 mm pedunculated polyp was removed from cecum Interim history, since her last visit on 11/08/2018 when her hemoglobin was 12.8 hematocrit 39.2, patient was admitted to hospital on 02/10/2019 with hemoglobin 6.9 g and hematocrit 23.3 g and iron studies shows ferritin 21, TIBC 331, iron saturation 5.1, iron level XVIII, haptoglobin less than 10, B12 416 reticulocyte count 2.6, patient was given 2 units of packed RBC with that her hemoglobin improved to 9.7 and hematocrit 30 with normal white blood count and platelets. Patient was admitted to hospital again on 04/08/2019 at that time hemoglobin was 7.4 hematocrit 23.6, 2 units of packed RBC were ordered but patient developed reaction after first unit of packed RBC, become hypotensive, so second unit of packed RBC was not given. Patient is not on oral iron supplement, because of history of intolerance. On her follow-up visit from 05/06/2019, she was found to be anemic with a hemoglobin of 8.4. Her iron saturation at that time was 7.7% and her ferritin was 32. Her iron was 29. She was given 2 doses of Injectafer one on 05/07/2019 and the second on 05/15/2019. She reports that she did have endoscopy camera placed in on . It is now 11.6 today and her iron saturation is now 16.4% with ferritin been at 109 and iron level is now 38. Weekly Injectafer ???2 was repeated in August 2019 Her daughter states that she does seem to be feeling some better as well.She underwent capsule endoscopy on 06/12/2019 and .As per patient her capsule camera got stuck in her small bowel so capsule endoscopy was not completed.But note from tassel maker Dr. Zacarias Lackey at [facility] , mentioned that capsule did not travel fast enough Through small bowel in designated 8 hours so it was an incomplete study, no active bleeder was seen but some patchy erythema was noted. Since her last visit on March 12, 2020, patient was admitted to hospital with episode of fall sustaining rib injury and she was transferred to [facility] in [place] and as per daughter about 2-1/2 weeks ago she was not hospital with progressive shortness of breath and her hemoglobin was around 4.9 g, she was given 3 units of packed RBCs as inpatient with that her overall condition improved and then on May 06, 2020 she went to [facility] with progressive shortness of breath and her lab work-up showed white blood count 3 hemoglobin 8.7 hematocrit 31 platelets 146,000, she was treated with diuretic for fluid overload and was discharged home. He was given Injectafer 750 mg IV on May 13 and 2019 Came for follow-up, denies any specific complaint except generalized weakness and fatigue but no melena or hematochezia, no nausea or vomiting, no diarrhea constipation, no jaundice, no generalized weakness and fatigue at rest and is using home oxygen Medications: Acetaminophen 1 - 2 Tablet (of 325 mg) Oral daily PRN, Aspirin 1 Tablet (of 81 mg) Tablet, enteric coated Oral daily, Bisacodyl Suppository Rectal PRN, Bumex 1 Tablet Oral daily, Carbidopa-Levodopa 1 Tablet (of 10-100 mg) Tablet Dispersable Oral daily, Enema Enema Rectal PRN, FLUoxetine HCl 1 Tablet (of 10 mg) Capsule Oral daily, Isosorbide Mononitrate ER 3 Tablet (of 20 mg) Tablet SR 24 HR Oral daily, Levothroid 2 Tablet (of 50 mcg) Oral daily, Mephyton 1 Tablet (of 5 mg) Oral daily, Metoprolol Tartrate 2 mg (of 12.5 mg) Tablet Oral b.i.d., Milk of Magnesia Suspension Oral PRN, MiraLax 1 Pack Oral daily, Nitroglycerin 1 (0.4 mg) Tablet, sublingual Sublingual PRN, Omeprazole 1 Tablet (of 20 mg) Tablet, enteric coated Oral daily, Potassium Chloride ER 2 Tablet (of 10 meq) Tablet, controlled release Oral b.i.d., Rosuvastatin Calcium 1 (10 mg) Tablet Oral daily, Tolterodine Tartrate 1 (2 mg) Tablet Oral b.i.d., Verapamil HCl ER 1 Tablet (of 180 mg) Tablet, controlled release Oral daily, Warfarin Sodium 1 Tablet (of 2 mg) Oral daily Allergies: Penicillins Review of Systems: Review of Systems is not available for this patient. Vital Signs: Performed on Jul 29, 2020 15:39 Height - 60.00 in Weight - 135.0 lbs (HIGH) BSA - 1.58 sq.m BMI - 26.37 Temperature - 98.6 F Pulse - 62 /min Respiration - 75 /min (HIGH) BP - 125/52 mm(hg) O2 Sat - 98 % Pain - 8 Performance Status: 2 - Ambulatory/capable of all self-care, unable to perform any work activities. Up and about more than 50% of waking hours. (ECOG) Physical Examination: ENMT - No mouth sores, no thrush, no jaundice, Respiratory - Poor air entry otherwise clear, Cardiovascular - Regular rate and rhythm of heart, Abdomen - Soft, bowel sounds present, Extremities - No visible edema. Lab/Imaging: Test performed on May 06, 2020 08:22 Ferritin 68 ng/mL Iron 32 mcg/dL Sodium 144 mmol/L Vitamin B12 319 pg/mL Iron Binding Capacity (TIBC) 261 mcg/dl Potassium 3.6 mmol/L % Iron Saturation 12.2 % Chloride 98 mmol/L CO2 41 mmol/L UIBC 229 mcg/dL Anion Gap 8.6 BUN 9 mg/dL Creatinine 0.5 mg/dL Cr Clearance (Est) 93.18 mL/min Glucose 92 mg/dL Calcium 8.2 mg/dL Protein, Total 6.1 g/dL Albumin 3.5 g/dL Globulin 2.6 g/dL Bilirubin, Total 1.1 mg/dL ALT (SGPT) < 5 U/L AST (SGOT) 11 U/L Alkaline Phosphatase 114 IU/L PT 33.70 SECONDS INR 3.17 Test performed on May 06, 2020 06:45 WBC 3.0 10 3/uL RBC 3.10 10 6/uL HGB 8.7 g/dL HCT 31.0 % MCV 100.0 fL MCH 28.1 pg MCHC 28.1 g/dL RDW 18.9 % Platelet Count 146 10 3/cmm MPV 9.9 fL Neutrophils 2.0 10 3/uL Lymphocytes 0.6 10 3/uL Monocytes 0.3 10 3/uL Eosinophils 0.1 10 3/uL Basophils 0.0 10 3/uL Neutrophil % 65.9 % Lymphocyte % 20.4 % Monocyte % 10.4 % Eosinophil % 2.3 % Basophils % 0.7 % NRBC % 0 % Test performed on March 12, 2020 11:30 Manual Lymphocytes 23.1 % Manual Monocytes 8.2 % Manual Eosinophils 1.4 % Manual Basophils 0.8 % Impression: 1 . Microcytic hypochromic anemia etiology multifactorial including iron deficiency due to chronic blood loss or malabsorption or both, underlying myelodysplasia cannot be ruled out 2. On chronic anticoagulation with Coumadin for A. fib and [facility]el's mitral valve 3. Internal hemorrhoids 4. on 03/14/2017 EGD showed Schatzki ring noted along with a small hiatal hernia and colonoscopy showed internal hemorrhoids with 5 mm pedunculated polyp removed with a snare from cecum Status post Injectafer 750 mg weekly ???2 on September 12, 2019 and September 19, 2019 and July 12 and 07/19/2017 and CBC on 08/02/2017 showed hemoglobin 11.9 compared to 10.3 on 07/05/2017 ferritin 350 on 08/02/2017 compared to 56.8 on 06/13/2017 And during follow-up on 05/07/2018 her hemoglobin was 12.4 hematocrit 37.3 and on 11/08/2018 her hemoglobin was 12.8 hematocrit 39.2. Remote history of hematuria status post cystoscopy many years ago it was unremarkable. Clinically, patient had been doing reasonably well with [id number] symptoms due to progressive iron deficiency anemia. due to probably chronic blood loss, considering her age underlying myelodysplasia cannot be ruled out. In the past, she had responded very well to Injectafer infusion, last time was given in June 2017, since then never required blood transfusion and maintain her hemoglobin in and around normal range till her last visit on 11/08/2018 at that time his CBC shows white blood count 4.7 hemoglobin 12.8 g hematocrit 39.2 platelets 150,000. Patient was supposed to come back in 3 months but lost follow-up. On her follow-up visit from 05/06/2019, she was found to be anemic with a hemoglobin of 8.4. Her iron saturation at that time was 7.7% and her ferritin was 32. Her iron was 29. She was given 2 doses of Injectafer one on 05/07/2019 and the second on 05/15/2019. She reports that she did have endoscopy camera placed on 06/17/19 As per patient her capsule camera got stuck in her small bowel and capsule endoscopy was not completed. But whatever part was examined did not show any bleeding. Plan: Discussed with patient regarding her labs white blood count 3.4 hemoglobin 10.2 hematocrit 34.2 platelets 126,000 iron saturation 27.5% ferritin 231 iron 51 Clinically, patient is doing reasonably well, no new signs symptoms or hemoglobin stable patient has mild/moderate anemia, follow-up lab work-up shows iron stores slowly gradually dropping but still in normal range, will continue to monitor and repeat her CBC and iron studies in a month if it shows further drop in her hemoglobin and iron stores then consider repeating Injectafer for iron deficiency anemia and considering her age underlying myelodysplasia cannot be ruled out. Patient prefer telemedicine Signed By: Lakia Bullock M.D. <<Signature on File>>
== END 2020-07-29 15:02 | disposition home or self-care (01) ==
LOC: ONCMED 15:07
PROVIDERS: PCP Family Medicine; Visit Provider Internal Medicine Hematology & Oncology
DX: D50.9 Iron deficiency anemia, unspecified (principal); Z79.01 Long term (current) use of anticoagulants; K64.8 Other hemorrhoids
CPT/HCPCS: G0463

== ENCOUNTER 2020-08-21 07:30 | Outpatient (CLI) | payer MEDICARE, MEDICAID, SELFPAY ==
[2020-08-21 08:58] LABS: Basophils % 0.8 %; Eosinophils # 0.1 10^3/uL (0.0-0.8); Eosinophils % 2.8 %; Hemoglobin 8.1 g/dL (11.5-15.3); Lymphocytes # 0.9 10^3/uL (0.8-4.8); Lymphocytes % 25.4 %; Mean Corpuscular Hemoglobin 30.3 pg (28.0-34.0); Mean Corpuscular Volume 101.1 fL (81-99); Mean Platelet Volume 9.7 fL (7.4-10.4); Monocytes # 0.3 10^3/uL (0.2-0.9); Monocytes % 8.5 %; Neutrophils % 62.2 %; Nucleated Red Blood Cells % 0 %; Platelet Count 115 10^3/cmm (130-400); Red Blood Count 2.67 10^6/uL (4.1-5.3); Red Cell Distribution Width 14.6 % (12.1-15.1); White Blood Count 3.5 10^3/uL (4.0-10.0)
[2020-08-21 09:18] LABS: Ferritin 130 ng/mL (15-150); Iron 36 ug/dL (37-145); Percent Saturation 20.8 % (20-50); Total Iron Binding Capacity 173 mcg/dl; Unsaturated Iron Binding 137 ug/dL (112-347)
== END 2020-08-21 07:31 | disposition home or self-care (01) ==
LOC: ONCMED 12:04
PROVIDERS: PCP Family Medicine; Visit Provider Internal Medicine Hematology & Oncology
DX: D50.9 Iron deficiency anemia, unspecified (principal)
CPT/HCPCS: 36415; 82728; 83540; 83550; 85025

== ENCOUNTER 2020-08-24 06:01 | Outpatient (CLI) | payer MEDICARE, MEDICAID, SELFPAY ==
--- NOTE | 2020-08-24 16:35 | ONC FU_ITS ---
Dr. Bullock follow up note Patient: Iris Garcia Unit #: [id number]: 1940 Dicatated By: Lakia Bullock M.D.Date of Visit:Aug 24, 2020 Onc Med Follow-up/Prog Note History of Present Illness: Mrs Iris Garcia, 80 -year-old female with a history of anemia, initially, about 6-7 years ago , she had an episode of generalized weakness and fatigue, for that she went to Hospital in [facility]. At that time she was told about anemia and she was given 2 units of packed RBCs she felt like a new person. No iron supplements were given and she did very well until March this year when again she started feeling weak and tired and came to [facility] she was given blood transfusion again for anemia not sure one or 2 units were given. Again felt better , till first week of May 2017, when she started feeling weak and tired again and came back to [facility] ER found to be anemic was given 4 units of packed RBCs and 2 units of plasma for elevated PT/INR she is on Coumadin for A. fib and [facility] Ismael's mitral valve again felt better hemoglobin improved from 6.9 on 05/29/2017 gone up to 9.7 on 05/31/2017 with MCV 76.4 and normal white blood count and platelets. And again not on any iron or B12 supplements. She denies any melena or hematochezia , no jaundice or hematuria, no evidence of gross bleeding she had EGD and colonoscopy done on 03/14/[address] Zechariah Prabhakar and it shows normal EGD except Schatzki ring noted along with small hiatal hernia. And colonoscopy shows internal hemorrhoids and 5 mm pedunculated polyp was removed from cecum Interim history, since her last visit on 11/08/2018 when her hemoglobin was 12.8 hematocrit 39.2, patient was admitted to hospital on 02/10/2019 with hemoglobin 6.9 g and hematocrit 23.3 g and iron studies shows ferritin 21, TIBC 331, iron saturation 5.1, iron level XVIII, haptoglobin less than 10, B12 416 reticulocyte count 2.6, patient was given 2 units of packed RBC with that her hemoglobin improved to 9.7 and hematocrit 30 with normal white blood count and platelets. Patient was admitted to hospital again on 04/08/2019 at that time hemoglobin was 7.4 hematocrit 23.6, 2 units of packed RBC were ordered but patient developed reaction after first unit of packed RBC, become hypotensive, so second unit of packed RBC was not given. Patient is not on oral iron supplement, because of history of intolerance. On her follow-up visit from 05/06/2019, she was found to be anemic with a hemoglobin of 8.4. Her iron saturation at that time was 7.7% and her ferritin was 32. Her iron was 29. She was given 2 doses of Injectafer one on 05/07/2019 and the second on 05/15/2019. She reports that she did have endoscopy camera placed in on . It is now 11.6 today and her iron saturation is now 16.4% with ferritin been at 109 and iron level is now 38. Weekly Injectafer ???2 was repeated in August 2019 Her daughter states that she does seem to be feeling some better as well.She underwent capsule endoscopy on 06/12/2019 and .As per patient her capsule camera got stuck in her small bowel so capsule endoscopy was not completed.But note from medical secretary Dr. Zacarias Lackey at [facility] , mentioned that capsule did not travel fast enough Through small bowel in designated 8 hours so it was an incomplete study, no active bleeder was seen but some patchy erythema was noted. Since her last visit on March 12, 2020, patient was admitted to hospital with episode of fall sustaining rib injury and she was transferred to [facility] in [place] and as per daughter about 2-1/2 weeks ago she was not hospital with progressive shortness of breath and her hemoglobin was around 4.9 g, she was given 3 units of packed RBCs as inpatient with that her overall condition improved and then on May 06, 2020 she went to [facility] with progressive shortness of breath and her lab work-up showed white blood count 3 hemoglobin 8.7 hematocrit 31 platelets 146,000, she was treated with diuretic for fluid overload and was discharged home. He was given Injectafer 750 mg IV on May 13 and 2019 Came for follow-up, complaining of generalized weakness and fatigue off and on small nosebleed, patient on home oxygen and episode of bleeding from her left ear, as per daughter that was due to scratching. Also has dark-colored stools, due to oral iron no fresh blood per rectum no hemoptysis or hematemesis, no jaundice. No chest pain, no palpitation at rest but overall, progressive generalized weakness and fatigue.Her lab done on August 21, 2020 showed hemoglobin 8.1 g compared to 10.2 g on July 28, 2020 Medications: Acetaminophen 1 - 2 Tablet (of 325 mg) Oral daily PRN, Aspirin 1 Tablet (of 81 mg) Tablet, enteric coated Oral daily, Bisacodyl Suppository Rectal PRN, Bumex 1 Tablet Oral daily, Carbidopa-Levodopa 1 Tablet (of 10-100 mg) Tablet Dispersable Oral daily, Enema Enema Rectal PRN, FLUoxetine HCl 1 Tablet (of 10 mg) Capsule Oral daily, Isosorbide Mononitrate ER 3 Tablet (of 20 mg) Tablet SR 24 HR Oral daily, Levothroid 2 Tablet (of 50 mcg) Oral daily, Mephyton 1 Tablet (of 5 mg) Oral daily, Metoprolol Tartrate 2 mg (of 12.5 mg) Tablet Oral b.i.d., Milk of Magnesia Suspension Oral PRN, MiraLax 1 Pack Oral daily, Nitroglycerin 1 (0.4 mg) Tablet, sublingual Sublingual PRN, Omeprazole 1 Tablet (of 20 mg) Tablet, enteric coated Oral daily, Potassium Chloride ER 2 Tablet (of 10 meq) Tablet, controlled release Oral b.i.d., Rosuvastatin Calcium 1 (10 mg) Tablet Oral daily, Tolterodine Tartrate 1 (2 mg) Tablet Oral b.i.d., Verapamil HCl ER 1 Tablet (of 180 mg) Tablet, controlled release Oral daily, Warfarin Sodium 1 Tablet (of 2 mg) Oral daily Allergies: Penicillins Review of Systems: Constitutional - Appetite is fair. No fever, chills, hot flashes, or night sweats. Energy level continues to be poor, ENMT - No sinus congestion/drainage. No mouth sores. No sore throat or difficulty swallowing.Patient states she gets dry mouth, Hematologic/Lymphatic - No abnormal bruising or bleeding, Respiratory - Shortness of breath with exertion. No cough. No pleuritic pain or hemoptysis, Cardiovascular - No angina pain. No palpitations, Gastrointestinal - No nausea or vomiting. No heartburn or acid reflux. No diarrhea, frequent constipation. No blood in the stool or black stools, Genitourinary (F) - No dysuria or hematuria. No urinary frequency. No urgency, patient does have incontinence, Musculoskeletal - Chronic arthritic joint pain, Integumentary - Denies alopecia, blistering, bruising, dry skin, facial burning, nail changes, photosensitivity, pruritus, rash and urticaria, Neurologic - Occasional headache without dizziness. Patient reports numbness/paresthesias in fingertips and toes.No other focal neurologic symptoms, Psychiatric - No anxiety or depression. No insomnia. Vital Signs: Performed on Aug 24, 2020 16:08 Height - 60.00 in Temperature - 97.9 F (LOW) Pulse - 112 /min (HIGH) Respiration - 16 /min BP - 142/60 mm(hg) (HIGH) O2 Sat - 80 % (LOW) Pain - 8 Performance Status: 2 - Ambulatory/capable of all self-care, unable to perform any work activities. Up and about more than 50% of waking hours. (ECOG) Physical Examination: ENMT - No mouth sores, no thrush, no jaundice, No nosebleed, Respiratory - Lungs are clear to auscultation, Cardiovascular - Regular rate and rhythm of heart, Abdomen - Soft, bowel sounds present, Extremities - No visible edema. Lab/Imaging: Test performed on May 06, 2020 08:22 Ferritin 68 ng/mL Iron 32 mcg/dL Sodium 144 mmol/L Vitamin B12 319 pg/mL Iron Binding Capacity (TIBC) 261 mcg/dl Potassium 3.6 mmol/L % Iron Saturation 12.2 % Chloride 98 mmol/L CO2 41 mmol/L UIBC 229 mcg/dL Anion Gap 8.6 BUN 9 mg/dL Creatinine 0.5 mg/dL Cr Clearance (Est) 93.18 mL/min Glucose 92 mg/dL Calcium 8.2 mg/dL Protein, Total 6.1 g/dL Albumin 3.5 g/dL Globulin 2.6 g/dL Bilirubin, Total 1.1 mg/dL ALT (SGPT) < 5 U/L AST (SGOT) 11 U/L Alkaline Phosphatase 114 IU/L PT 33.70 SECONDS INR 3.17 Test performed on May 06, 2020 06:45 WBC 3.0 10 3/uL RBC 3.10 10 6/uL HGB 8.7 g/dL HCT 31.0 % MCV 100.0 fL MCH 28.1 pg MCHC 28.1 g/dL RDW 18.9 % Platelet Count 146 10 3/cmm MPV 9.9 fL Neutrophils 2.0 10 3/uL Lymphocytes 0.6 10 3/uL Monocytes 0.3 10 3/uL Eosinophils 0.1 10 3/uL Basophils 0.0 10 3/uL Neutrophil % 65.9 % Lymphocyte % 20.4 % Monocyte % 10.4 % Eosinophil % 2.3 % Basophils % 0.7 % NRBC % 0 % Test performed on March 12, 2020 11:30 Manual Lymphocytes 23.1 % Manual Monocytes 8.2 % Manual Eosinophils 1.4 % Manual Basophils 0.8 % Impression: 1 . Microcytic hypochromic anemia etiology multifactorial including iron deficiency due to chronic blood loss or malabsorption or both, underlying myelodysplasia cannot be ruled out 2. On chronic anticoagulation with Coumadin for A. fib and [facility] Ismael's mitral valve 3. Internal hemorrhoids 4. on 03/14/2017 EGD showed Schatzki ring noted along with a small hiatal hernia and colonoscopy showed internal hemorrhoids with 5 mm pedunculated polyp removed with a snare from cecum Status post Injectafer 750 mg weekly ???2 on September 12, 2019 and September 19, 2019 and July 12 and 07/19/2017 and CBC on 08/02/2017 showed hemoglobin 11.9 compared to 10.3 on 07/05/2017 ferritin 350 on 08/02/2017 compared to 56.8 on 06/13/2017 And during follow-up on 05/07/2018 her hemoglobin was 12.4 hematocrit 37.3 and on 11/08/2018 her hemoglobin was 12.8 hematocrit 39.2. Remote history of hematuria status post cystoscopy many years ago it was unremarkable. Clinically, patient had been doing reasonably well with kizt-cv-augmnulc symptoms due to progressive iron deficiency anemia. due to probably chronic blood loss, considering her age underlying myelodysplasia cannot be ruled out. In the past, she had responded very well to Injectafer infusion, last time was given in June 2017, since then never required blood transfusion and maintain her hemoglobin in and around normal range till her last visit on 11/08/2018 at that time his CBC shows white blood count 4.7 hemoglobin 12.8 g hematocrit 39.2 platelets 150,000. Patient was supposed to come back in 3 months but lost follow-up. On her follow-up visit from 05/06/2019, she was found to be anemic with a hemoglobin of 8.4. Her iron saturation at that time was 7.7% and her ferritin was 32. Her iron was 29. She was given 2 doses of Injectafer one on 05/07/2019 and the second on 05/15/2019. She reports that she did have endoscopy camera placed on 06/17/19 As per patient her capsule camera got stuck in her small bowel and capsule endoscopy was not completed. But whatever part was examined did not show any bleeding. Plan: Discussed with patient and her daughter regarding her labs from August 21, 2020 which showed white blood count 3.5 hemoglobin 8.1 g hematocrit 27 platelets 115,000 and Clinically, patient is doing reasonably well but now with progressive generalized weakness and fatigue, probably due to progressive anemia due to chronic GI blood loss. As per patient, she do not move around much most of the time she still in a wheelchair so her symptoms are tolerable so at this point, we will consider trial of Injectafer 750 mg IV today and then in a week and repeat CBC in 1 month. Patient was advised in case she has worsening of symptoms then she need to call us and we can repeat her labs and if there is a further drop in her hemoglobin or no response to parenteral iron then will consider blood transfusion. Signed By: Lakia Bullock M.D. <<Signature on File>>
[2020-08-24] MEDS: ferric carboxy (IVPB) 750 MG in sodium chloride 0.9% (100 ml) 100 ML 345 MG IV (16:40)
== END 2020-08-24 06:02 | disposition home or self-care (01) ==
LOC: ONCMED 06:02
PROVIDERS: PCP Family Medicine; Visit Provider Internal Medicine Hematology & Oncology
DX: D50.8 Other iron deficiency anemias (principal); R53.1 Weakness; R53.83 Other fatigue; I48.91 Unspecified atrial fibrillation; K64.8 Other hemorrhoids; Z79.01 Long term (current) use of anticoagulants; Z86.010 Personal history of colon polyps
CPT/HCPCS: 96365; 99214; J1439

== ENCOUNTER 2020-08-31 06:38 | Outpatient (CLI) | payer MEDICARE, MEDICAID, SELFPAY ==
[2020-08-31] MEDS: ferric carboxy (IVPB) 750 MG in sodium chloride 0.9% (100 ml) 100 ML 460 MG IV (14:18)
== END 2020-08-31 06:39 | disposition home or self-care (01) ==
LOC: ONCMED 06:40
PROVIDERS: PCP Family Medicine; Visit Provider Internal Medicine Medical Oncology
DX: D50.9 Iron deficiency anemia, unspecified (principal)
CPT/HCPCS: 96365; J1439

== ENCOUNTER 2020-09-09 18:35 | Emergency (ER) | payer MEDICARE, MEDICAID, SELFPAY ==
--- NOTE | 2020-09-09 18:36 | XR_ITS ---
WS: [id number] Portable AP upright chest, Clinical Data: cp Comparison: Portable chest, 05/06/2020. Findings: No nodules, masses or effusions are seen. The heart is enlarged.. The pulmonary vascularity is not increased. No pneumonia or pneumothorax is seen. 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 There is a dextroscoliosis. The aortic arch shows calcification. There is a healed fracture of the right second rib. XR/XR chest 1V portable [id number] Impression: Atherosclerosis and cardiomegaly.
--- NOTE | 2020-09-09 18:36 | ECG_ITS ---
[facility] Test Date: 2020-09-09 Pat Name: Iris Garcia Department: Room: Gender: Female Wearing Apparel Shaker: : 1940 Requested By: James Adrian Order Number: [id number] Krupa MD: Cas Galvez M.D. Measurements Intervals Ezel Rate: 106 P: WA: -1 QRS: 69 QRSD: 102 T: -6 QT: 327 QTc: 435 Interpretive Statements SUPRAVENTRICULAR TACHYCARDIA NONSPECIFIC ST & T-WAVE ABNORMALITY Compared to ECG 05/06/2020 15:11:43 T-wave abnormality now present Atrial fibrillation no longer present Electronically Signed On 09-11-2020 20:11:59 MARINE RAILWAY OPERATOR by Cas Galvez M.D. [id number]
--- NOTE | 2020-09-09 18:44 | ED_ITS ---
HPI - Fall General: Chief Complaint: Fall Stated Complaint: HIP PAIN Time Seen by Provider: 09/09/20 18:35 Source: patient and EMS Mode of arrival: EMS Limitations: no limitations History of Present Illness: HPI Narrative: 80-year-old female states she had a fall today. States she fell just prior to arrival and landed on her right hip. She describes right hip pain she rates 5 out of 10. She was able to stand and ambulate on the hip per EMS. States she also struck her head and is on Coumadin. She denies any headache. Denies any neck pain. Denies any vomiting. Associated symptoms-after fall: Reports headache(s); Denies abdominal pain, chest pain or neck pain Review of Systems Const: Denies: fever(s), chills, body aches or change in appetite Eyes: Denies: blurry vision or eye discomfort ENMT: Denies: throat pain or dental pain Card: Denies: chest pain Resp: Denies: dyspnea GI: Denies: abdominal pain, nausea, vomiting or diarrhea : Denies: dysuria Musc: Reports: joint pain; Denies: neck pain or back pain Skin/Breast: Denies: rash Neuro: Reports: headache(s) Psych: Denies: depression Jesus Alberto/Lymph: Denies: easy bruising All/Imm: Denies: urticaria PFSH ED PFSH: Medical History (Updated 09/09/20 @ 21:31 by James Adrian MD) Afib Chronic anticoagulation Due to mechanical mitral valve; coumadin Chronic hypercapnic respiratory failure COPD (chronic obstructive pulmonary disease) Depression On fluoxetine with good control Diastolic CHF GERD (gastroesophageal reflux disease) PPI HTN (hypertension) Hypothyroidism Iron deficiency anemia Has required transfusion in past, last egd and colonoscopy ~2017 with diverticulosis and internal hemorrhoids, no clear source of bleeding SONYA (obstructive sleep apnea) Uses 2 L of oxygen at night does not use CPAP Parkinson disease Sinimet Schatzki's ring Surgical History History of bilateral tubal ligation History of cholecystectomy History of total knee arthroplasty Left Mitral valve replaced Mechanical, on coumadin Family History Mother CAD (coronary artery disease) Diabetes Other Hypertension Social History Smoking and tobacco status: former smoker Quit status (tobacco): has quit using tobacco Year quit tobacco: 1994 - PPD x 15 Years Second hand smoke exposure: No Alcohol intake: never Caregiver/support person: Yes Household members: spouse and children Housing: House Marital status: Current occupational status: retired and disabled History of recent travel: No Current gender identity: Female Physical Exam Const: COMMON NORMALS: no acute distress, patient oriented x3 and healthy appearing HENMT: COMMON NORMALS: normocephalic and atraumatic HEAD & SCALP: normocephalic and atraumatic Eye: COMMON NORMALS: Equal, round and reactive pupils present and EOMs intact bilaterally PUPIL: Yes Equal, round and reactive pupils present Neck/C-Spine: COMMON NORMALS: full ROM and supple Chest: COMMONS NORMALS: normal inspection of the chest and normal palpation of entire chest wall Resp: COMMON NORMALS: normal respiratory effort, No retractions, No use of accessory muscles and clear to auscultation bilaterally AUSCULTATION: clear to auscultation bilaterally Cardio: COMMON NORMALS: regular rate, regular rhythm and No murmurs present (Cardio) RATE: regular rate RHYTHM: regular rhythm GI: COMMON NORMALS: Normal to inspection, nondistended, normoactive bowel sounds present, Soft to palpation, non-tender and no masses PALPATION: Yes Soft to palpation Extremity: COMMON NORMALS: normal to inspection and full ROM NARRATIVE E XTREMITY EXAM: tenderness over right hip Neuro: COMMON NORMALS: patient oriented x3, moves all extremities and no focal motor deficits Psych: COMMON NORMALS: mental status grossly normal, Normal thought process present and cooperative THOUGHT PROCESS: Normal thought process present Skin: COMMON NORMALS: no rashes or lesions noted and no wounds GENERAL SKIN EXAM: no rashes or lesions noted Course Vital Signs: Vital signs: Vital Signs Temperature 98.4 F 09/09/20 18:52 Pulse Rate 107 H 09/09/20 19:19 Respiratory Rate 29 H 09/09/20 19:19 Blood Pressure 120/82 09/09/20 19:19 Pulse Oximetry 99 09/09/20 19:19 MDM - Fall MDM Narrative: Medical decision making narrative: Patient presents with a hip contusion from a fall. X-ray shows no acute fractures and patient is able to ambulate. CT head is normal as well. She is well-appearing here and stable for discharge. She is to follow-up with PCP in 3 to 5 days return if worsening. Lab Data: Labs: Lab Results 09/09/20 09/09/20 09/09/20 Range/Units 19:02 19:02 19:02 WBC 4.2 (4.0-10.0) 10^3/ uL RBC 3.46 L (4.1-5.3) 10^6/u L Hgb 10.7 L (11.5-15.3) g/dL Hct 36.1 L (37.0-47.0) % MCV 104.3 H (81-99) fL MCH 30.9 (28.0-34.0) pg MCHC 29.6 L (30.0-36.0) g/dL RDW 14.7 (12.1-15.1) % Plt Count 107 L (130-400) 10^3/c mm MPV 10.2 (7.4-10.4) fL Neut % (Auto) 70.2 % Lymph % (Auto) 19.6 % Sibley % (Auto) 7.8 % Eos % (Auto) 1.7 % Baso % (Auto) 0.7 % Neut # (Auto) 2.98 (1.8-7.7) 10^3/u L Lymph # (Auto) 0.8 (0.8-4.8) 10^3/u L Sibley # (Auto) 0.3 (0.2-0.9) 10^3/u L Eos # (Auto) 0.1 (0.0-0.8) 10^3/u L Baso # (Auto) 0.0 (0.0-0.1) 10^3/u L Nucleated RBC % (a uto) 0 % Nucleated RBCs # 0.0 /100WBC PT 20.80 H (12.1-14.9) SECO NDS INR 1.73 H (0.8-1.2) Sodium 143 (136-145) mmol/L Potassium 3.0 L (3.5-5.1) mmol/L Chloride 98 (98-107) mmol/L Carbon Dioxide 45 H* (22-29) mmol/L Anion Gap 3.0 L (5-19) BUN 10 (8-23) mg/dL Creatinine 0.5 (0.5-0.9) mg/dL GFR Calculation Not Reportable Glucose 104 (65-115) mg/dL Calculated Osmolal ity 295 (285-295) mOsm/k g Calcium 7.9 L (8.5-10.5) mg/dL Imaging Data^: CT Head: Attestation: I personally reviewed and interpreted this imaging study as follows: Radiologist's impression: [address] [place] [address] CT Scan Report Signed Patient: Iris Garcia Unit #: [id number] : 1940 Age/Sex: 80 / F ADM Date: 09/09/20 Loc: ER Room/Bed: Attending Dr: Ordering Provider/Ordering MD: James Adrian MD Date of Service: 09/09/20 Procedure(s): CT head wo con* [id number] Accession Number(s): [id number] Report Number: [id number] PROCEDURE INFORMATION: Exam: CT Head Without Contrast Exam date and time: 09/09/2020 8:16 PM Age: 80 years old Clinical indication: Injury or trauma; Fall; Blunt trauma (contusions or hematomas); Without loss of consciousness TECHNIQUE: Imaging protocol: Computed tomography of the head without contrast. Radiation optimization: All CT scans at this facility use at least one of these dose optimization techniques: automated exposure control; mA and/or kV adjustment per patient size (includes targeted exams where dose is matched to clinical indication); or iterative reconstruction. COMPARISON: CT head wo con* [id number] 03/13/2020 2:27 PM RADIATION DOSE METRICS: Total DLP (mGy-cm): 747.44 FINDINGS: Brain: No hemorrhage or CT evidence of acute infarction is seen. No mass effect. Cerebral ventricles: No ventriculomegaly. Bones/joints: Unremarkable. No acute fracture. Paranasal sinuses: Visualized sinuses are unremarkable. No fluid levels. Mastoid air cells: Visualized mastoid air cells are well aerated. Soft tissues: Unremarkable. CT/CT head wo con* [id number] IMPRESSION: No acute intracranial abnormality. ct hip: Radiologist's impression: [address] [address] [address] Scan Report Signed Patient: Iris Garcia Unit #: [id number] : 1940 Age/Sex: 80 / F ADM Date: 09/09/20 Loc: ER Room/Bed: Attending Dr: Ordering Provider/Ordering MD: James Adrian MD Date of Service: 09/09/20 Procedure(s): CT hip RT wo con* [id number] Accession Number(s): [id number] Report Number: [id number] PROCEDURE INFORMATION: Exam: CT Right Lower Extremity Without Contrast, Hip Exam date and time: 09/09/2020 8:16 PM Age: 80 years old Clinical indication: Injury or trauma; Fall; Blunt trauma TECHNIQUE: Imaging protocol: CT of the Right lower extremity without contrast was performed. Exam focused on the hip. Radiation optimization: All CT scans at this facility use at least one of these dose optimization techniques: automated exposure control; mA and/or kV adjustment per patient size (includes targeted exams where dose is matched to clinical indication); or iterative reconstruction. COMPARISON: CR Hip 2-3v RIGHT wwo Pelv* [id number] 03/17/2014 2:06 PM RADIATION DOSE METRICS: Total DLP (mGy-cm): 933.65 FINDINGS: Bones/joints: Slight irregularity of the partially imaged S3-S4 region raises the possibility of fracture (age indeterminate) Mild degenerative changes are seen at the right SI joint. No fracture or dislocation is seen in the right hip. Bowel: A small right inguinal hernia containing a short segment loop of small bowel is appreciated. No intestinal wall thickening or intestinal pneumatosis. No evidence of intestinal obstruction on the images provided. Diverticulosis coli is seen, without evidence of diverticulitis. CT/CT hip RT wo con* [id number] IMPRESSION: 1. Possible sacral fracture (age indeterminate). No fracture or dislocation is seen in the right hip. 2. Small right inguinal hernia containing short segment loop of small bowel. No evidence of strangulation or intestinal obstruction. 3. Diverticulosis coli. EKG Data^: EKG 1: Attestation: I personally reviewed and interpreted this EKG as follows: EKG interpretation date: 09/09/20 EKG interpretation time: 19:25 Interpretation: sinus tachy hr [address] or t wave abnormalities qrs 102 qtc 389 Discharge Plan Discharge Patient Disposition: Home Clinical Impression: Fall Qualifiers: Encounter type: initial encounter Qualified Code(s): W19.XXXA - Unspecified fall, initial encounter Contusion of hip Qualifiers: Encounter type: initial encounter Laterality: right Qualified Code(s): S70.01XA - Contusion of right hip, initial encounter Condition: Stable Prescriptions: No Action polyethylene glycol 3350 [Miralax] 17 gram/dose powder 17 gm PO DAILY PRN (Reason: Constipation) RF: 0 fluoxetine 10 mg capsule 10 mg PO DAILY RF: 0 rosuvastatin [Crestor] 10 mg tablet 10 mg PO DAILY RF: 0 carbidopa-levodopa 10-100 mg tablet,disintegrating 1 tab PO BID RF: 0 levothyroxine 50 mcg capsule 50 mcg PO DAILY RF: 0 bumetanide 2 mg tablet 2 mg PO DAILY Qty: 30 RF: 1 tolterodine 2 mg tablet 2 mg PO BID RF: 0 metoprolol tartrate 25 mg Tablet 6.25 mg PO Q12H Qty: 60 RF: 0 potassium chloride [Klor-Con 10] 10 mEq tablet extended release 20 meq PO DAILY RF: 0 sennosides-docusate sodium 8.6-50 mg Tablet 2 tab PO BID Qty: 120 RF: 0 Dexilant 30 mg capsule,biphase delayed releas 30 mg PO DAILY Qty: 30 RF: 0 ferrous gluconate 324 mg (37.5 mg iron) tablet 324 mg PO BID Qty: 60 RF: 0 Hold Instructions: taking iron infusions warfarin 2 mg Tablet 4 mg PO DAILY@1400 Qty: 15 RF: 0 Hold Instructions: Resume on 04/27/20. RECHECK INR ON MONDAY, dosing based on repeat INR isosorbide mononitrate 60 mg tablet extended release 24 hr 30 mg PO DAILY Qty: 30 RF: 0 Discharge Orders: Discharge Order (Routine); Ordered 09/09/20 Ordered By: James Adrian Referrals: Michael Hampton DO [Primary Care Provider] - 1-3 days Discharge Diet: Advance as tolerated Discharge Activity: Resume usual activity Patient Instructions: Contusion in Adults (ED), Fall Prevention (ED) Coding Level of Care Code ED Food Quality Technician for Zackeryg Fwd Exam Comprehensive
[2020-09-09 18:52] VITALS: BP 135/75; PULSE 106; RESP 22; TEMP 36.9; O2SAT 100; BMI 26.4
[2020-09-09 19:14] LABS: Basophils % 0.7 %; Eosinophils # 0.1 10^3/uL (0.0-0.8); Eosinophils % 1.7 %; Hematocrit 36.1 % (37.0-47.0); Hemoglobin 10.7 g/dL (11.5-15.3); Lymphocytes # 0.8 10^3/uL (0.8-4.8); Lymphocytes % 19.6 %; Mean Corpuscular HGB Conc 29.6 g/dL (30.0-36.0); Mean Corpuscular Hemoglobin 30.9 pg (28.0-34.0); Mean Corpuscular Volume 104.3 fL (81-99); Mean Platelet Volume 10.2 fL (7.4-10.4); Monocytes # 0.3 10^3/uL (0.2-0.9); Monocytes % 7.8 %; Neutrophils # 2.98 10^3/uL (1.8-7.7); Neutrophils % 70.2 %; Nucleated Red Blood Cells % 0 %; Platelet Count 107 10^3/cmm (130-400); Red Blood Count 3.46 10^6/uL (4.1-5.3); Red Cell Distribution Width 14.7 % (12.1-15.1); White Blood Count 4.2 10^3/uL (4.0-10.0)
[2020-09-09 19:19] VITALS: BP 120/82; PULSE 107; RESP 29; O2SAT 99
--- NOTE | 2020-09-09 19:27 | PC.NURSE ---
EKG done at 1925 and shown to ER doctor
[2020-09-09 19:28] LABS: INR 1.73 (0.8-1.2)
--- NOTE | 2020-09-09 19:28 | PC.NURSE ---
skin tear noted on R forearm [id number] x5cm. Wound re dressed with non stick telfa pad and non stick gauze. notified
[2020-09-09 19:46] LABS: Blood Urea Nitrogen 10 mg/dL (8-23); Calcium 7.9 mg/dL (8.5-10.5); Chloride 98 mmol/L (98-107); Glucose 104 mg/dL (65-115); Osmolality Calculated 295 mOsm/kg (285-295); Sodium 143 mmol/L (136-145)
[2020-09-09 19:49] LABS: Carbon Dioxide 45 mmol/L (22-29)
[2020-09-09 20:00] VITALS: BP 146/69; PULSE 105; RESP 28; O2SAT 94
[2020-09-09 21:00] VITALS: BP 126/68; PULSE 105; RESP 26; O2SAT 96
--- NOTE | 2020-09-09 21:45 | PC.NURSE ---
I went in to assist the patient on doing a road test. I was able to get the patient to sit up on the side of the bed but the patient stated that she couldn't go any farther therefore she failed the road test. She became fairly short of breath and stated that she felt very stiff. The nurse was informed.
--- NOTE | 2020-09-09 22:41 | PC.NURSE ---
pt able to stand and pivot to chair in exam room. Pt has parkinsons disease which limits her mobility. Pt does not have any complaints while road testing performed. Pt's spouse states diminished mobility is pt's norm. notified. ok to dc
[2020-09-09 22:44] VITALS: BP 139/88; PULSE 103; RESP 24; O2SAT 98
--- NOTE | 2020-09-09 22:47 | PC.NURSE ---
This RN agrees with the medical transcription radiology assessment
== END 2020-09-09 22:48 | disposition home or self-care (01) ==
PROVIDERS: Emergency Provider Emergency Medicine; PCP Family Medicine
DX: S70.01XA Contusion of right hip, initial encounter (principal); W19.XXXA Unspecified fall, initial encounter; Z79.01 Long term (current) use of anticoagulants; Z95.2 Presence of prosthetic heart valve; S09.8XXA Other specified injuries of head, initial encounter; Z87.891 Personal history of nicotine dependence; Z96.652 Presence of left artificial knee joint
CPT/HCPCS: 12345; 70450; 71045; 73700; 80048; 85025; 85610; 93005; 99282; 99283

== ENCOUNTER 2020-09-22 11:13 | Inpatient (IN) | payer MEDICARE, MEDICAID, SELFPAY ==
[2020-09-22] VITALS (12 sets, daily range): BP systolic 109–129; BP diastolic 56–92; PULSE 93–112; RESP 18–30; TEMP 36.6–37.2; O2SAT 94–100; BMI 26.4
--- NOTE | 2020-09-22 11:33 | XR_ITS ---
WS: [id number] XR chest 1V portable [id number] REASON FOR EXAM: SOB FINDINGS: The chest is unchanged compared to previous examination of 09/09/2020. There is been previous thoracotomy with poor seen valve replacement. Calcified granulomatous changes in both hemithoraces. No active pulmonary parenchymal or pleural disease. Degenerative changes of the right shoulder and thoracic spine. XR/XR chest 1V portable [id number] IMPRESSION: No acute chest abnormality.
--- NOTE | 2020-09-22 11:36 | ECG_ITS ---
[facility] Test Date: 2020-09-22 Pat Name: Iris Garcia Department: Room: Gender: Female Remote Broadcast Engineer: : 1940 Requested By: Cindy Perla Order Number: [id number] Reading MD: PAOLO HURTADO Measurements Intervals [place] Rate: 99 P: UT: QRS: 30 QRSD: 110 T: -6 QT: 363 QTc: 466 Interpretive Statements ATRIAL FIBRILLATION NONSPECIFIC ST & T-WAVE ABNORMALITY ABNORMAL RHYTHM ECG Compared to ECG 09/09/2020 19:25:12 Supraventricular tachycardia no longer present T-wave abnormality still present Electronically Signed On 09-24-2020 15:27:11 CARD GAME OPERATOR by PAOLO HURTADO [email or web address]
[2020-09-22 11:46] LABS: Basophils % 0.5 %; Eosinophils # 0.1 10^3/uL (0.0-0.8); Eosinophils % 1.6 %; Hematocrit 29.8 % (37.0-47.0); Hemoglobin 8.6 g/dL (11.5-15.3); Lymphocytes # 0.4 10^3/uL (0.8-4.8); Lymphocytes % 9.5 %; Mean Corpuscular HGB Conc 28.9 g/dL (30.0-36.0); Mean Corpuscular Hemoglobin 31.7 pg (28.0-34.0); Mean Platelet Volume 9.6 fL (7.4-10.4); Monocytes # 0.2 10^3/uL (0.2-0.9); Monocytes % 6.1 %; Neutrophils % 82.3 %; Nucleated Red Blood Cells % 0 %; Platelet Count 144 10^3/cmm (130-400); Red Blood Count 2.71 10^6/uL (4.1-5.3); Red Cell Distribution Width 17.2 % (12.1-15.1); White Blood Count 3.8 10^3/uL (4.0-10.0)
--- NOTE | 2020-09-22 11:56 | W.ED.SOB ---
HPI - SOB/Dyspnea General: Chief Complaint: Shortness of Breath/Dyspnea Stated Complaint: weakness, not feeling well, lower leg edema Time Seen by Provider: 09/22/20 11:15 History of Present Illness: HPI Narrative: This patient is an 80-year-old female who presents with weakness and shortness of breath. She said she has been feeling this way since Monday. She does not think she has had a fever. She denies cough. She denies body aches. She just feels extremely weak and short of breath. I spoke to the patient's daughter who is also her medical power of employee benefits attorney. She tells me that over the past 2 days the patient has become more lethargic. Last night she had a high heart rate and low oxygen level. Her home health nurse thought maybe she was dehydrated because she had slept so much and so they gave her some extra fluids to drink. Her daughter said that did seem to help with the heart rate. They also increased her normal 2 L of oxygen at home up to 3 L and they have kept her on 3 L since then. She has been very weak and not wanting to do anything. She is complaining of hurting all over. There is no fever. Her daughter is concerned about her being able to go home safely. She lives with her and although they have home health he has to help her into bed and to the bathroom at night. MD elicited complaint: shortness of breath and cough Pertinent past history: congestive heart failure and other (Parkinson's, status post prosthetic mitral valve) Onset (ago): day(s) (4) Timing: constant Severity: severe Exacerbating factors: nothing Relieving factors: nothing Associated symptoms: Deny abdominal pain, chest pain, fever(s), nausea or vomiting Review of Systems General: Reports: 10 or more systems reviewed and unremarkable except in HPI and below Const: Reports: fatigue and malaise; Denies: fever(s) or chills Eyes: Denies: change in vision ENMT: Denies: odynophagia Card: Denies: chest pain or swelling of feet/ankles Resp: Reports: dyspnea and non-productive cough; Denies: productive cough GI: Denies: abdominal pain, nausea or vomiting : Reports: dribbling and urinary incontinence; Denies: flank pain or difficulty voiding Musc: Denies: neck pain or back pain Skin/Breast: Denies: rash Neuro: Denies: headache(s), numbness in extremities or weakness in extremities Jesus Alberto/Lymph: Denies: easy bruising or easy bleeding PFSH ED PFSH: Medical History Afib CAD (coronary artery disease) Chronic anticoagulation Due to mechanical mitral valve; coumadin Chronic hypercapnic respiratory failure COPD (chronic obstructive pulmonary disease) Depression On fluoxetine with good control Diastolic CHF GERD (gastroesophageal reflux disease) PPI HTN (hypertension) Hypothyroidism Iron deficiency anemia Has required transfusion in past, last egd and colonoscopy ~2017 with diverticulosis and internal hemorrhoids, no clear source of bleeding SONYA (obstructive sleep apnea) Uses 2 L of oxygen at night does not use CPAP Parkinson disease Sinimet Schatzki's ring Surgical History History of bilateral tubal ligation History of cholecystectomy History of total knee arthroplasty Left Mitral valve replaced Mechanical, on coumadin Family History Mother CAD (coronary artery disease) Diabetes Other Hypertension Social History Smoking and tobacco status: former smoker Quit status (tobacco): has quit using tobacco Year quit tobacco: 1994 - PPD x 15 Years Second hand smoke exposure: No Alcohol intake: never Caregiver/support person: Yes Household members: spouse and children Housing: House Marital status: Current occupational status: retired and disabled History of recent travel: No Current gender identity: Female Physical Exam Const: COMMON NORMALS: patient oriented x3, no limitations and alert GENERAL APPEARANCE: cooperative and other (Laying with eyes closed and laying very still but quickly answers questions) HENMT: HEAD & SCALP: normal to inspection FACE & SINUS: normal facial exam Eye: GENERAL EYE: appearance normal, both eyes and all related structures Neck/C-Spine: COMMON NORMALS: supple, no meningeal signs and no JVD Chest: COMMONS NORMALS: normal inspection of the chest Resp: COMMON NORMALS: No use of accessory muscles and clear to auscultation bilaterally EFFORT & INSPECTION: Yes tachypneic AUSCULTATION: clear to auscultation bilaterally Cardio: COMMON NORMALS: no JVD, regular rate, regular rhythm and No murmurs present (Cardio) RATE: regular rate RHYTHM: regular rhythm HEART SOUNDS: Other heart sounds present (Clicking associated with mitral valve) OTHER: Bilateral lower edema with venous stasis changes of the skin GI: COMMON NORMALS: Normal to inspection, nondistended, normoactive bowel sounds present, Soft to palpation and non-tender INSPECTION: Yes normal to inspection AUSCULTATION: Yes normoactive bowel sounds PALPATION: Yes Soft to palpation Back/Pelvis: COMMON NORMALS: thoracic and lumbar spine normal to inspection Extremity: COMMON NORMALS: normal to inspection Neuro: COMMON NORMALS: patient oriented x3, moves all extremities, no focal motor deficits and no sensory deficits noted SENSORIUM/ORIENTATION: Yes alert MENINGEAL SIGNS: Yes no meningeal signs Psych: COMMON NORMALS: mental status grossly normal, cooperative and normal affect Skin: COMMON NORMALS: no rashes or lesions noted and turgor normal GENERAL SKIN EXAM: no rashes or lesions noted and turgor normal Course ED course: Patient remained quite sleepy while in the ED. I reviewed prior charts and noted that she had had elevated P a CO2 is on blood gases before. She again has that and her PaCO2 today is 85. Not clear why this is happening. She will be admitted to [facility] on a BiPAP by the hospitalist for further management. Vital Signs: Vital signs: Vital Signs Temperature 98 F 09/22/20 11:14 Pulse Rate 108 H 09/22/20 16:34 Respiratory Rate 22 H 09/22/20 16:34 Blood Pressure 117/65 09/22/20 16:34 Pulse Oximetry 100 09/22/20 16:34 MDM - SOB/Dyspnea Lab Data: Labs: Lab Results 09/22/20 09/22/20 09/22/20 Range/Units 10:55 10:55 10:55 WBC 3.8 L (4.0-10.0) 10^3/ uL RBC 2.71 L (4.1-5.3) 10^6/u L Hgb 8.6 L (11.5-15.3) g/dL Hct 29.8 L (37.0-47.0) % MCV 110.0 H (81-99) fL MCH 31.7 (28.0-34.0) pg MCHC 28.9 L (30.0-36.0) g/dL RDW 17.2 H (12.1-15.1) % Plt Count 144 (130-400) 10^3/c mm MPV 9.6 (7.4-10.4) fL Neut % (Auto) 82.3 % Lymph % (Auto) 9.5 % Bond % (Auto) 6.1 % Eos % (Auto) 1.6 % Baso % (Auto) 0.5 % Neut # (Auto) 3.10 (1.8-7.7) 10^3/u L Lymph # (Auto) 0.4 L (0.8-4.8) 10^3/u L Bond # (Auto) 0.2 (0.2-0.9) 10^3/u L Eos # (Auto) 0.1 (0.0-0.8) 10^3/u L Baso # (Auto) 0.0 (0.0-0.1) 10^3/u L Nucleated RBC % (a uto) 0 % Nucleated RBCs # 0.0 /100WBC PT 30.70 H (12.1-14.9) SECO NDS INR 2.82 H (0.8-1.2) Specimen Type Sample Site ABG pH (7.35-7.45) ABG pCO2 (35-45) mmHg ABG pO2 (80.0-100.0) mmH g ABG HCO3 (22-26) mmol/L ABG Base Excess (-2.0-2.0) mmol/ L César Test Hematocrit (37-47) % O2 Delivery Device O2 Liters/Min % FiO2 % Upkeep Mechanic ID Sodium 141 (136-145) mmol/L Potassium 3.4 L (3.5-5.1) mmol/L Chloride 95 L (98-107) mmol/L Carbon Dioxide 43 H* (22-29) mmol/L Anion Gap 6.4 (5-19) BUN 12 (8-23) mg/dL Creatinine 0.6 (0.5-0.9) mg/dL GFR Calculation Not Reportable Glucose 109 (65-115) mg/dL Calculated Osmolal ity 292 (285-295) mOsm/k g Lactic Acid (0.5-2.2) mmol/L Calcium 7.5 L (8.5-10.5) mg/dL Total Bilirubin 1.6 H (0.15-1.2) mg/dL AST 11 (0-32) U/L ALT < 5 (0-33) U/L Alkaline Phosphata se 150 H (35-105) IU/L Troponin T Baselin e (0-10) ng/L Troponin T 120 Min [place] (0-10) ng/L Delta Troponin T (0-10) ABS# Total Protein 6.4 L (6.6-8.7) g/dL Albumin 3.8 (3.5-5.2) g/dL Globulin 2.6 (1.3-4.6) g/dL Urine Color (Yellow) Urine Appearance (CLEAR) Urine pH (5-7) Ur Specific Gravit y (1.005-1.030) Urine Protein (Negative) Urine Glucose (UA) (Normal) Urine Ketones (Negative) Urine Blood (Negative) Urine Nitrate (Negative) Urine Bilirubin (Negative) Urine Urobilinogen (Negative) mg/dL Ur Leukocyte Carlyn ase (Negative) Urine RBC (0-2) /hpf Urine WBC (0-5) /hpf Ur Squamous Epith Cells (0-5) /hpf Amorphous Sediment Urine Bacteria (NONE) /hpf SARS-CoV-2 Ag (Rap id) (Negative) 09/22/20 09/22/20 09/22/20 Range/Units 10:55 11:33 13:25 WBC (4.0-10.0) 10^3/ uL RBC (4.1-5.3) 10^6/u L Hgb (11.5-15.3) g/dL Hct (37.0-47.0) % MCV (81-99) fL MCH (28.0-34.0) pg MCHC (30.0-36.0) g/dL RDW (12.1-15.1) % Plt Count (130-400) 10^3/c mm MPV (7.4-10.4) fL Neut % (Auto) % Lymph % (Auto) % Bond % (Auto) % Eos % (Auto) % Baso % (Auto) % Neut # (Auto) (1.8-7.7) 10^3/u L Lymph # (Auto) (0.8-4.8) 10^3/u L Bond # (Auto) (0.2-0.9) 10^3/u L Eos # (Auto) (0.0-0.8) 10^3/u L Baso # (Auto) (0.0-0.1) 10^3/u L Nucleated RBC % (a uto) % Nucleated RBCs # /100WBC PT (12.1-14.9) SECO NDS INR (0.8-1.2) Specimen Type Sample Site ABG pH (7.35-7.45) ABG pCO2 (35-45) mmHg ABG pO2 (80.0-100.0) mmH g ABG HCO3 (22-26) mmol/L ABG Base Excess (-2.0-2.0) mmol/ L César Test Hematocrit (37-47) % O2 Delivery Device O2 Liters/Min % FiO2 % Upkeep Mechanic ID Sodium (136-145) mmol/L Potassium (3.5-5.1) mmol/L Chloride (98-107) mmol/L Carbon Dioxide (22-29) mmol/L Anion Gap (5-19) BUN (8-23) mg/dL Creatinine (0.5-0.9) mg/dL GFR Calculation Glucose (65-115) mg/dL Calculated Osmolal ity (285-295) mOsm/k g Lactic Acid 0.5 (0.5-2.2) mmol/L Calcium (8.5-10.5) mg/dL Total Bilirubin (0.15-1.2) mg/dL AST (0-32) U/L ALT (0-33) U/L Alkaline Phosphata se (35-105) IU/L Troponin T Baselin e 13 H (0-10) ng/L Troponin T 120 Min [place] (0-10) ng/L Delta Troponin T (0-10) ABS# Total Protein (6.6-8.7) g/dL Albumin (3.5-5.2) g/dL Globulin (1.3-4.6) g/dL Urine Color Yellow (Yellow) Urine Appearance Clear (CLEAR) Urine pH 5.0 (5-7) Ur Specific Gravit y 1.010 (1.005-1.030) Urine Protein Trace (Negative) Urine Glucose (UA) Norm (Normal) Urine Ketones Negative (Negative) Urine Blood Neg (Negative) Urine Nitrate Negative (Negative) Urine Bilirubin Neg (Negative) Urine Urobilinogen Norm (Negative) mg/dL Ur Leukocyte Carlyn ase Negative (Negative) Urine RBC None (0-2) /hpf Urine WBC None (0-5) /hpf Ur Squamous Epith Cells 0-4 H (0-5) /hpf Amorphous Sediment Not Reportable Urine Bacteria Trace (NONE) /hpf SARS-CoV-2 Ag (Rap id) (Negative) 09/22/20 09/22/20 09/22/20 Range/Units 13:38 14:49 15:58 WBC (4.0-10.0) 10^3/ uL RBC (4.1-5.3) 10^6/u L Hgb (11.5-15.3) g/dL Hct (37.0-47.0) % MCV (81-99) fL MCH (28.0-34.0) pg MCHC (30.0-36.0) g/dL RDW (12.1-15.1) % Plt Count (130-400) 10^3/c mm MPV (7.4-10.4) fL Neut % (Auto) % Lymph % (Auto) % Bond % (Auto) % Eos % (Auto) % Baso % (Auto) % Neut # (Auto) (1.8-7.7) 10^3/u L Lymph # (Auto) (0.8-4.8) 10^3/u L Bond # (Auto) (0.2-0.9) 10^3/u L Eos # (Auto) (0.0-0.8) 10^3/u L Baso # (Auto) (0.0-0.1) 10^3/u L Nucleated RBC % (a uto) % Nucleated RBCs # /100WBC PT (12.1-14.9) SECO NDS INR (0.8-1.2) Specimen Type Arterial Sample Site Radial, right ABG pH 7.33 L (7.35-7.45) ABG pCO2 85.3 H* (35-45) mmHg ABG pO2 109.0 H (80.0-100.0) mmH g ABG HCO3 44.4 H (22-26) mmol/L ABG Base Excess 16.0 H (-2.0-2.0) mmol/ L César Test Pos Hematocrit 26.0 L (37-47) % O2 Delivery Device Nc O2 Liters/Min 0.3 % FiO2 2.0 % Upkeep Mechanic ID [place] Sodium (136-145) mmol/L Potassium (3.5-5.1) mmol/L Chloride (98-107) mmol/L Carbon Dioxide (22-29) mmol/L Anion Gap (5-19) BUN (8-23) mg/dL Creatinine (0.5-0.9) mg/dL GFR Calculation Glucose (65-115) mg/dL Calculated Osmolal ity (285-295) mOsm/k g Lactic Acid (0.5-2.2) mmol/L Calcium (8.5-10.5) mg/dL Total Bilirubin (0.15-1.2) mg/dL AST (0-32) U/L ALT (0-33) U/L Alkaline Phosphata se (35-105) IU/L Troponin T Baselin e (0-10) ng/L Troponin T 120 Min [place] 12.50 H (0-10) ng/L Delta Troponin T -0.50 L (0-10) ABS# Total Protein (6.6-8.7) g/dL Albumin (3.5-5.2) g/dL Globulin (1.3-4.6) g/dL Urine Color (Yellow) Urine Appearance (CLEAR) Urine pH (5-7) Ur Specific Gravit y (1.005-1.030) Urine Protein (Negative) Urine Glucose (UA) (Normal) Urine Ketones (Negative) Urine Blood (Negative) Urine Nitrate (Negative) Urine Bilirubin (Negative) Urine Urobilinogen (Negative) mg/dL Ur Leukocyte Carlyn ase (Negative) Urine RBC (0-2) /hpf Urine WBC (0-5) /hpf Ur Squamous Epith Cells (0-5) /hpf Amorphous Sediment Urine Bacteria (NONE) /hpf SARS-CoV-2 Ag (Rap id) Negative (Negative) Discharge Plan Discharge Prescriptions: No Action polyethylene glycol 3350 [Miralax] 17 gram/dose powder 17 gm PO DAILY PRN (Reason: Constipation) RF: 0 fluoxetine 10 mg capsule 10 mg PO DAILY RF: 0 rosuvastatin [Crestor] 10 mg tablet 10 mg PO DAILY RF: 0 carbidopa-levodopa 10-100 mg tablet,disintegrating 1 tab PO BID RF: 0 levothyroxine 50 mcg capsule 50 mcg PO DAILY RF: 0 warfarin 2 mg tablet 4 mg PO DAILY@1400 Qty: 20 RF: 0 Hold Instructions: Resume on 04/27/20. RECHECK INR ON MONDAY, dosing based on repeat INR aspirin [Adult Aspirin Regimen] 81 mg tablet,delayed release (DR/EC) 81 mg PO DAILY RF: 0 metoprolol tartrate 25 mg tablet 12.5 mg PO BID Qty: 90 RF: 3 bumetanide 2 mg tablet 2 mg PO DAILY Qty: 90 RF: 3 tolterodine 2 mg tablet 2 mg PO BID RF: 0 Dexilant 30 mg capsule,biphase delayed releas 30 mg PO DAILY RF: 0 potassium chloride [Klor-Con 10] 10 mEq tablet extended release 20 meq PO DAILY RF: 0 sennosides-docusate sodium 8.6-50 mg Tablet 2 tab PO BID Qty: 120 RF: 0 ferrous gluconate 324 mg (37.5 mg iron) tablet 324 mg PO BID Qty: 60 RF: 0 Hold Instructions: taking iron infusions isosorbide mononitrate 60 mg tablet extended release 24 hr 30 mg PO DAILY Qty: 30 RF: 0 Coding Level of Care Code ED Senior Safety Management Consultant for Chg Fwd Exam Comprehensive
[2020-09-22 11:59] LABS: INR 2.82 (0.8-1.2)
[2020-09-22 12:06] LABS: Alanine Aminotransferase < 5 U/L (0-33); Albumin Level 3.8 g/dL (3.5-5.2); Alkaline Phosphatase 150 IU/L (35-105); Anion Gap 6.4 (5-19); Aspartate Amino Transferase 11 U/L (0-32); Blood Urea Nitrogen 12 mg/dL (8-23); Calcium 7.5 mg/dL (8.5-10.5); Chloride 95 mmol/L (98-107); Globulin 2.6 g/dL (1.3-4.6); Glucose 109 mg/dL (65-115); Osmolality Calculated 292 mOsm/kg (285-295); Potassium 3.4 mmol/L (3.5-5.1); Sodium 141 mmol/L (136-145); Total Bilirubin 1.6 mg/dL (0.15-1.2); Total Protein 6.4 g/dL (6.6-8.7)
[2020-09-22 12:08] LABS: Troponin(5th) Baseline 13 ng/L (0-10)
[2020-09-22 12:09] LABS: Carbon Dioxide 43 mmol/L (22-29)
--- NOTE | 2020-09-22 13:36 | ECG_ITS ---
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: : 1940 Requested By: Cindy Perla Order Number: [id number] Reading MD: PAOLO HURTADO Measurements Intervals [place] Rate: 99 P: [place]: QRS: 34 QRSD: 125 T: 8 QT: 378 QTc: 485 Interpretive Statements ATRIAL FIBRILLATION MODERATE INTRAVENTRICULAR CONDUCTION DELAY [110+ ms QRS DURATION] NONSPECIFIC ST & T-WAVE ABNORMALITY ABNORMAL RHYTHM ECG Compared to ECG 09/22/2020 11:21:13 Intraventricular conduction delay now present T-wave abnormality still present Electronically Signed On 09-24-2020 15:34:13 AIRPORT OPERATIONS DUTY MANAGER by PAOLO HURTADO [id number]
[2020-09-22 13:53] LABS: Lactic Sepsis W/Reflex 0.5 mmol/L (0.5-2.2)
[2020-09-22 13:53] LABS: Add Urine Microscopic? YES; Bilirubin Urine Neg (Negative); Blood Urine Neg (Negative); Glucose Urine UA Norm (Normal); Ketones Urine Negative (Negative); Leukocyte Esterase Urine Negative (Negative); Nitrate Urine Negative (Negative); Protein Urine Trace (Negative); Urine Appearance Clear (CLEAR); Urine Color Yellow (Yellow); Urobilinogen Urine Norm (Negative)
[2020-09-22 14:35] LABS: Add Urine Culture? No; Bacteria Urine TRACE /hpf; Squamous Epithelial Cell Urine 0-4 /hpf (0-5)
[2020-09-22 15:14] LABS: SARS Covid-2 Antigen Negative (Negative)
[2020-09-22 16:11] LABS: ABG PH Result 7.33 (7.35-7.45); Blood Gas Allen Test Pos; Blood Gas Sample Type Arterial; HCO3 ABG 44.4 mmol/L (22-26)
[2020-09-22 16:14] LABS: ABG PCO2 85.3 mmHg (35-45); Blood Gas LPM 0.3 %; Blood Gas Operator Identificat MONRO; Blood Gas Sample Site Radial, right; Oxygen Device NC
--- NOTE | 2020-09-22 17:36 | ECG_ITS ---
[facility] Test Date: 2020-09-22 Pat Name: Iris Garcia Department: Room: Gender: Female Counsel: : 1940 Requested By: Cindy Perla Order Number: [id number] Reading MD: PAOLO HURTADO Measurements Intervals [place] Rate: 110 P: [place]: QRS: 39 QRSD: 104 T: 174 QT: 322 QTc: 436 Interpretive Statements SUPRAVENTRICULAR TACHYCARDIA NONSPECIFIC ST & T-WAVE ABNORMALITY Compared to ECG 09/22/2020 13:45:08 Atrial fibrillation no longer present Intraventricular conduction delay no longer present T-wave abnormality still present Electronically Signed On 09-24-2020 15:33:46 ABSTRACT CLERK by PAOLO HURTADO [email or web address]
[2020-09-22 19:09] LABS: Troponin 5 6HR 12.67 ng/L (0-10)
--- NOTE | 2020-09-22 19:09 | PC.NURSE ---
Report received from ROSEANN Andersen and care transferred to ROSEANN Loyola
[2020-09-22 19:10] LABS: Troponin 5 6HR Delta -0.33 ng/L (0-12)
--- NOTE | 2020-09-22 19:43 | P.HP_ITS ---
Providers/Chief Complaint Admitting Physician: Vanessa Cordova MD Primary Care Provider: Michael Hampton DO Chief Complaint: weakness, not feeling well, lower leg edema History of Present Illness Iris Garcia is a 80 year old female with PMHx noted below presents accompanied by her due to noted decreased responsiveness, increased lower extremity edema for the past several days. Patient is quite somnolent during my evaluation so most of history obtained from at bedside as well as thorough review of medical record. She is known to me from previous admission over a year ago. It seems that she has gradually been getting weaker and had ongoing difficulty with ambulation and performing her own ADLs. She is on diuretics chronically due to underlying CHF but states that she has not been urinating as before and has had noted increased lower extremity sw elling. Lam catheter has really been placed and she has had approximately 600 mL output. She is in the process of being placed on BiPAP due to noted hypercapnia on ABG with PCO2 of 85.3 and a pH of 7.32. She is oxygen dependent at baseline with a requirement of 2 L. states that she was noted to have hypoxia requiring increased oxygen to about 3 L. She seemed to be more sleepy and was quite slow to respond which is different from her normal. She is on chronic anticoagulation with Coumadin secondary to history of mitral valve replacement and chronic atrial fibrillation. She also has chronic anemia with intermittent need for transfusion and IV iron supplementation. She follows up with various specialists including a neurologist in [place], Dr. Mays, Dr. Daigle, Dr. Bullock. Work-up so far indicates hemoglobin of 8.6, white count of 3.8, potassium of 3.4, bicarb of 43, normal renal function, troponins with flat trend and no significant delta, negative urinalysis, rapid COVID-19 screening which is negative, lactic acid of 0.5, INR of 2.82. I have ordered a BNP. Chest x-ray is reported as unremarkable. She reportedly received a dose of Lasix though I am unable to find the order to confirm this. She will need further IV diuresis, close monitoring of her respiratory status hence need for admission. Due to concern for possible decompensation in terms of her respi ratory status she'll be admitted to [facility], no ICU beds currently available. Review of Systems Const: Denies: fever(s) or chills Eyes: Denies: change in vision ENMT: Denies: odynophagia Card: Reports: edema and dyspnea on exertion; Denies: chest pain Resp: Reports: dyspnea GI: Denies: abdominal pain, nausea or vomiting : Reports: oliguria; Denies: hematuria Musc: Denies: back pain Skin/Breast: Denies: rash Neuro: Reports: weakness in extremities and difficulty walking Medications/Allergies Home Medications Medication Instructions Recorded Confirmed Last Taken Type fluoxetine 10 mg capsule 10 mg PO DAILY cap 11/06/19 09/22/20 09/22/20 History polyethylene glycol 3350 17 17 gm PO DAILY PRN 11/06/19 09/22/20 02/25/20 History gram/dose oral powder rosuvastatin 10 mg tablet 10 mg PO DAILY 11/06/19 09/22/20 09/22/20 History potassium chloride [Klor-Con 10] 20 meq PO DAILY 12/12/19 09/22/20 09/22/20 History sennosides-docusate sodium 2 tab PO BID #120 tab 12/18/19 09/22/20 09/22/20 Rx ferrous gluconate 324 mg (37.5 mg 324 mg PO BID #60 tab 02/26/20 09/22/20 09/22/20 Rx iron) tablet carbidopa 10 mg-levodopa 100 mg 1 tab PO BID tab 03/12/20 09/22/20 09/22/20 History disintegrating tablet tolterodine 2 mg tablet 2 mg PO BID 03/12/20 09/22/20 09/22/20 History isosorbide mononitrate 30 mg PO DAILY #30 tab 04/19/20 09/22/20 09/22/20 Rx levothyroxine 50 mcg capsule 50 mcg PO DAILY 05/21/20 09/22/20 09/22/20 History aspirin 81 mg tablet,delayed 81 mg PO DAILY 09/17/20 09/22/20 09/22/20 History release warfarin 2 mg tablet 4 mg PO DAILY@1400 #20 tab 09/17/20 09/22/20 09/22/20 Rx bumetanide 2 mg tablet 2 mg PO DAILY #90 tab 09/21/20 09/22/20 09/22/20 Rx metoprolol tartrate 25 mg tablet 12.5 mg PO BID #90 tab 09/21/20 09/22/20 09/22/20 Rx dexlansoprazole [Dexilant] 30 mg PO DAILY 09/22/20 09/22/20 09/22/20 History Allergies Allergy/AdvReac Type Severity Reaction Status Date / Time penicillin G Allergy UNK Verified 09/17/20 15:57 PFSH Acute PFSH: Medical History (Updated 09/22/20 @ 20:11 by Vanessa Cordova MD) Afib CAD (coronary artery disease) Chronic anticoagulation Due to mechanical mitral valve; coumadin Chronic hypercapnic respiratory failure COPD (chronic obstructive pulmonary disease) Depression On fluoxetine with good control Diastolic CHF GERD (gastroesophageal reflux disease) PPI HTN (hypertension) Hypothyroidism Iron deficiency anemia Has required transfusion in past, last egd and colonoscopy ~2017 with diverticulosis and internal hemorrhoids, no clear source of bleeding SONYA (obstructive sleep apnea) Uses 2 L of oxygen at night does not use CPAP Parkinson disease on sinemet Schatzki's ring Surgical History History of bilateral tubal ligation History of cholecystectomy History of total knee arthroplasty Left Mitral valve replaced Mechanical, on coumadin Family History Mother CAD (coronary artery disease) Diabetes Other Hypertension Social History Smoking and tobacco status: former smoker Quit status (tobacco): has quit using tobacco Year quit tobacco: 1994 - PPD x 15 Years Second hand smoke exposure: No Alcohol intake: never Caregiver/support person: Yes Household members: spouse and children Housing: House Marital status: Current occupational status: retired and disabled History of recent travel: No Current gender identity: Female Vitals/I&O/Wt Last Vital Signs Temp 98 F 09/22/20 11:14 Pulse 109 H 09/22/20 19:37 Resp 22 H 09/22/20 19:37 BP 114/57 09/22/20 19:37 Pulse Ox 97 09/22/20 19:37 Weight last 48 hrs Weight 59.24 kg Physical Exam Const: COMMON NORMALS: no acute distress GENERAL APPEARANCE: cooperative, comfortable and frail appearing ORIENTATION/CONSCIOUSNESS: Yes awake OTHER: -somnolent, arousable for brief periods of time HENMT: COMMON NORMALS: normocephalic, atraumatic, hearing grossly normal bilaterally and moist oral mucous membranes HEAD & SCALP: normocephalic and atraumatic Eye: COMMON NORMALS: Equal, round and reactive pupils present, EOMs intact bilaterally and conjunctivae normal CONJUNCTIVA: Yes conjunctivae normal PUPIL: Yes Equal, round and reactive pupils present Neck/C-Spine: COMMON NORMALS: full ROM GENERAL: Yes normal visual inspection and Yes trachea midline Chest: OTHER: -healed sternotomy scar Resp: COMMON NORMALS: normal respiratory effort, No retractions and No use of accessory muscles EFFORT & INSPECTION: Yes able to speak in complete sentences, Yes symmetric chest movement and Yes tachypneic AUSCULTATION: diminished lung sounds OTHER: -on 2-3 L NC Cardio: COMMON NORMALS: regular rate, regular rhythm, S1 normal heart sound present, S2 normal heart sound present and No murmurs present (Cardio) RATE: regular rate RHYTHM: regular rhythm HEART SOUNDS: S1 normal heart sound present, S2 normal heart sound present and Clicking heart sound present GI: COMMON NORMALS: Normal to inspection, nondistended, normoactive bowel sounds present, Soft to palpation and non-tender PALPATION: Yes Soft to palpation : BLADDER/KIDNEY EXAM: Yes catheter in place Catheter type (Female): urethral Extremity: COMMON NORMALS: normal to inspection, full ROM and no clubbing, cyanosis or edema; negative for no pedal edema Neuro: COMMON NORMALS: moves all extremities, no focal motor deficits and no sensory deficits noted SENSORIUM/ORIENTATION: Yes somnolent MOTOR EXAM: Tremors during motor activity present resting tremor bialteral upper extremity Psych: COMMON NORMALS: mental status grossly normal, Normal thought process present, cooperative, normal affect and speech normal SPEECH: Yes normal speech THOUGHT PROCESS: Normal thought process present Skin: COMMON NORMALS: no jaundice, no petechiae and no mottling NARRATIVE SKIN EXAM: -chronic venous stasis dermatitis Urinary Catheter Management^: Lam: Cath Placed During This Visit: yes Reason for Continuing Indwelling Catheter: Not indwelling catheter Urinary Catheter Date of Insertion: 09/22/20 Urinary Catheter Time of Insertion: 15:01 Data : 09/22/20 10:55 09/22/20 10:55 Other data: -reviewed lab data including CBC, CMP, troponins, imaging A&P Assessment and plan (1) Acute exacerbation of CHF (congestive heart failure): -acute exacerbation of diastolic CHF as evidenced by lower extremity edema, hypoxia with increased oxygen requirement -check BNP -Echo (03/2020): EF=60-65%, possible septal hypokinesis, mechanical prosthetic mitral valve (well seated), trace AR, mild to moderate TR, severe pulmonary HTN (68) -CXR reported as unremarkable -IV diuresis -Lam catheter has been placed in ED; assess daily for removal -daily weights, monitor Is & Os -telemetry monitoring -monitor vital signs -follows up with Dr. Mays Status: Acute Qualifiers: Heart failure type: diastolic Qualified Code(s): I50.33 - Acute on chronic diastolic (congestive) heart failure (2) Chronic hypercapnic respiratory failure: -acute on chronic hypercapnia respiratory failure -noted hypercapnia on ABG -currently on BiPAP -monitor respiratory status closely -rapid COVID-19 negative -oxygen dependent at baseline, 2 L NC Status: Acute (3) Anemia: -baseline Hg around 9-10 -monitor H/H -hold Coumadin -prior GI workup in 2017 with EGD showing small hiatal hernia and Schzatki's ring; colonoscopy showing internal hemorrhoids and small polyp. Incomplete small bowel endoscopy but whatever portion was completed did not reveal bleeding source -resume iron supplementation, bowel regimen; has been responsive to IV iron supplementation in the past -follows up with Dr. Bullock Status: Chronic Qualifiers: Anemia type: iron deficiency Iron deficiency anemia type: chronic blood loss Qualified Code(s): D50.0 - Iron deficiency anemia secondary to blood loss (chronic) (4) Parkinson disease: -fall, aspiration precautions -resume meds -follows up with Dr. Rainey in [place] Status: Chronic (5) Hypothyroidism: -resume levothyroxine Status: Chronic Qualifiers: Hypothyroidism type: unspecified Qualified Code(s): E03.9 - Hypothyroidism, unspecified (6) Weakness: -seems to be a progressive issue, likely multifactorial given underlying comorbidities including Parkinson disease and decreasing mobility -fall precautions -PT/OT evaluations Status: Acute Additional A&P Information -CAD s/p stenting -severe pulmonary HTN as noted above -s/p mitral valve (bioprosthetic) replacement; on AC with Coumadin, INR-2.82 (therapeutic); hold AC for now due to anemia -Chronic atrial fibrillation; telemetry monitoring, resume BB -HTN; resume oral antihypertensives -Hyperlipidemia; resume statin -Oxygen-dependent COPD, 2 L qhs at baseline -CKD stage 2; baseline Cr is < 1.0 -CLD for now in case of respiratory status decompensation -GI ppx with PPI -DVT ppx with SCDs, hold AC -Dispo: home -Code status: FULL code; discussed with patient and at bedside -admit to [facility] Attestations Medical Necessity Statement*: Iris Garcia's hospital stay will require greater than 2 midnights for treatment of acute CHF exacerbation requiring IV diuresis, BiPAP, close monitoring of hemodynamic and respiratory status. Time Spent in Patient Care: Greater than 35 minutes (>than 50% of time spent in counselling and/or direct pt care on unit) . Coding Level of Care Code Acute Rim Roller Operator for Norma Fwd Diagnoses Acute exacerbation of CHF (congestive heart failure) I50.33 Heart failure type: diastolic Chronic hypercapnic respiratory failure J96.12 Anemia D50.0 Anemia type: iron deficiency Iron deficiency anemia type: chronic blood loss Parkinson disease G20 Hypothyroidism E03.9 Hypothyroidism type: unspecified Weakness R53.1
[2020-09-22] MEDS: bumetanide 0.25 mg/mL SDV 4 mL 1 MG IV (20:53)
[2020-09-22 20:58] LABS: NT Pro B Type Natriuretic Pept 1778 pg/mL (0-450)
[2020-09-23] VITALS (66 sets, daily range): BP systolic 96–131; BP diastolic 41–89; PULSE 73–117; RESP 17–35; TEMP 36.3–36.9; O2SAT 81–100
[2020-09-23 03:04] LABS: Basophils % 0.5 %; Eosinophils # 0.1 10^3/uL (0.0-0.8); Eosinophils % 1.9 %; Hematocrit 26.9 % (37.0-47.0); Hemoglobin 8.1 g/dL (11.5-15.3); Lymphocytes # 0.6 10^3/uL (0.8-4.8); Lymphocytes % 13.1 %; Mean Corpuscular HGB Conc 30.1 g/dL (30.0-36.0); Mean Corpuscular Hemoglobin 32.5 pg (28.0-34.0); Mean Platelet Volume 10.7 fL (7.4-10.4); Monocytes # 0.4 10^3/uL (0.2-0.9); Monocytes % 9.6 %; Neutrophils % 74.7 %; Nucleated Red Blood Cells % 0 %; Platelet Count 119 10^3/cmm (130-400); Red Blood Count 2.49 10^6/uL (4.1-5.3); White Blood Count 4.3 10^3/uL (4.0-10.0)
[2020-09-23 03:21] LABS: Alanine Aminotransferase 7 U/L (0-33); Albumin Level 3.7 g/dL (3.5-5.2); Alkaline Phosphatase 137 IU/L (35-105); Blood Urea Nitrogen 12 mg/dL (8-23); Chloride 97 mmol/L (98-107); Globulin 2.5 g/dL (1.3-4.6); Glucose 90 mg/dL (65-115); Osmolality Calculated 299 mOsm/kg (285-295); Sodium 145 mmol/L (136-145); Total Protein 6.2 g/dL (6.6-8.7)
[2020-09-23 03:41] LABS: Carbon Dioxide 41 mmol/L (22-29)
[2020-09-23 03:55] LABS: Magnesium 1.9 mg/dL (1.7-2.3)
[2020-09-23 04:14] LABS: Anion Gap 10.4 (5-19); Aspartate Amino Transferase 18 U/L (0-32); Calcium 7.8 mg/dL (8.5-10.5); Potassium 3.4 mmol/L (3.5-5.1)
[2020-09-23] MEDS: levothyroxine 50 mcg Tablet PO (08:48)
[2020-09-23] MEDS: atorvastatin 40 mg Tablet DOBHOFF (08:48)
[2020-09-23] MEDS: pantoprazole DR 40 mg Tablet PO ×2 (08:49→17:52)
[2020-09-23] MEDS: ferrous gluconate 324 mg Tablet PO ×2 (08:49→17:52)
[2020-09-23] MEDS: sennosides-docusate Tablet 2 TAB PO ×2 (08:49→17:51)
[2020-09-23] MEDS: isosorbide mononitrate ER 30 mg Tablet PO (08:49)
[2020-09-23] MEDS: metoprolol tartrate 25 mg Tablet 12.5 MG PO ×2 (08:49→17:52)
[2020-09-23] MEDS: potassium chloride ER 10 mEq Tablet 20 MEQ PO (08:49)
[2020-09-23] MEDS: bumetanide 0.25 mg/mL SDV 4 mL 1 MG IV ×2 (08:50→20:16)
[2020-09-23] MEDS: fluoxetine 10 mg Capsule PO (08:50)
[2020-09-23] MEDS: polyethylene glycol 3350 Pkt 17 gm PO (08:50)
--- NOTE | 2020-09-23 11:16 | P.PN_ITS ---
Subjective Subjective: Interval history: Patient was on BiPAP overnight, had 1400 mL urine output and remains on IV diuresis. Normotensive, was tachycardic overnight with heart rate in the 110-120 range, improved this morning, afebrile. Noted drop in hemoglobin to 8.1, normal renal function, slight hypokalemia though already on potassium supplementation. Nursing staff she had been sitting up in a recliner earlier this morning and did work with physical therapy. She is quite fatigued during my assessment and would like to rest. She is currently on nasal cannula. Medications: Reviewed: Yes Medication Review Details: Active Medications Generic Name Dose Route Start Last Admin Trade Name Freq PRN Reason Stop Dose Admin Acetaminophen 650 mg 09/22/20 19:56 Acetaminophen 32 5 Mg Tablet PO Q6H PRN MILD PAIN Albuterol/Ipratrop ium 3 ml 09/23/20 01:53 Ipratropium-Albu terol 3 Ml Neb INHALATION Q6H.RESPIRATORY P RN SHORTNESS OF [place] TH Atorvastatin Calci um 40 mg 09/23/20 09:00 09/23/20 08:48 Atorvastatin 40 Mg Tablet DOBHOFF 40 mg DAILY HARLAN Administration Bumetanide 1 mg 09/22/20 20:00 09/23/20 08:50 Bumetanide 0.25 Mg/Ml Sdv 4 Ml IV 1 mg Q12H HARLAN Administration Carbidopa/Levodopa 1 each 09/23/20 09:00 09/23/20 08:49 Carbidopa-Levodo pa 10-100 Mg Table t PO 1 each BID HARLAN Administration Ferrous Gluconate 324 mg 09/23/20 09:00 09/23/20 08:49 Ferrous Gluconat e 324 Mg Tablet PO 324 mg BID HARLAN Administration Fluoxetine HCl 10 mg 09/23/20 09:00 09/23/20 08:50 Fluoxetine 10 Mg Capsule PO 10 mg DAILY HARLAN Administration Isosorbide Mononit rate 30 mg 09/23/20 09:00 09/23/20 08:49 Isosorbide [place] itrate Er 30 Mg Ta blet PO 30 mg DAILY HARLAN Administration Levothyroxine Sodi um 50 mcg 09/23/20 09:00 09/23/20 08:48 Levothyroxine 50 Mcg Tablet PO 50 mcg DAILY HARLAN Administration Metoprolol Tartrat e 12.5 mg 09/23/20 09:00 09/23/20 08:49 Metoprolol Tartr ate 25 Mg Tablet PO 12.5 mg BID HARLAN Administration Ondansetron HCl 4 mg 09/22/20 19:56 Ondansetron 2 Mg /Ml Sdv 2 Ml IVP Q6H PRN NAUSEA AND VOMITI NG Pantoprazole Sodiu m 40 mg 09/23/20 09:00 09/23/20 08:[address] 40 Mg Tablet PO 40 mg BID HARLAN Administration Polyethylene Glyco l 17 gm 09/23/20 09:00 09/23/20 08:50 Polyethylene Gly col 3350 Pkt 17 Gm PO 17 gm DAILY HARLAN Administration Potassium Chloride 20 meq 09/23/20 18:00 Potassium Chlori de Er 10 Meq Table t PO BID HARLAN Senna/Docusate Sod ium 2 tab 09/23/20 09:00 09/23/20 08:49 Sennosides-Docus ate Tablet PO 2 tab BID HARLAN Administration penicillin G Allergy (Verified 09/17/20 15:57) UNK Vitals/I&O/Wt Last Vital Signs Temp 97.4 F L 09/23/20 08:02 Pulse 82 09/23/20 10:00 Resp 24 H 09/23/20 10:00 BP 109/54 09/23/20 08:02 Pulse Ox 92 09/23/20 08:02 09/22/20 09/23/20 09/23/20 22:59 06:59 14:59 Intake Total 340 / 340 Output Total 1100 / 1100 300 / 1400 Balance -1100 / -1100 -300 / -1400 340 / 340 Weight last 48 hrs Weight 69.853 kg Weight 59.24 kg Physical Exam Const: COMMON NORMALS: no acute distress GENERAL APPEARANCE: cooperative, comfortable and frail appearing ORIENTATION/CONSCIOUSNESS: Yes awake OTHER: -sleepy though easily arousable; appears quite fatigued HENMT: COMMON NORMALS: normocephalic, atraumatic, hearing grossly normal bilaterally and moist oral mucous membranes HEAD & SCALP: normocephalic and atraumatic Eye: COMMON NORMALS: Equal, round and reactive pupils present, EOMs intact bilaterally and conjunctivae normal CONJUNCTIVA: Yes conjunctivae normal PUPIL: Yes Equal, round and reactive pupils present Neck/C-Spine: COMMON NORMALS: full ROM GENERAL: Yes normal visual inspectio n and Yes trachea midline Chest: OTHER: -healed sternotomy scar Resp: COMMON NORMALS: normal respiratory effort, No retractions and No use of accessory muscles EFFORT & INSPECTION: Yes able to speak in complete sentences, Yes symmetric chest movement and Yes tachypneic AUSCULTATION: diminished lung sounds OTHER: -on 2-3 L NC Cardio: COMMON NORMALS: regular rate, regular rhythm, S1 normal heart sound present, S2 normal heart sound present and No murmurs present (Cardio) RATE: regular rate RHYTHM: regular rhythm HEART SOUNDS: S1 normal heart sound present, S2 normal heart sound present and Clicking heart sound present GI: COMMON NORMALS: Normal to inspection, nondistended, normoactive bowel sounds present, Soft to palpation and non-tender PALPATION: Yes Soft to palpation : BLADDER/KIDNEY EXAM: Yes catheter in place Catheter type (Female): urethral Extremity: NARRATIVE EXTREMITY EXAM: -noted 1-2 + pitting edema of bilateral LEs Neuro: COMMON NORMALS: moves all extremities, no focal motor deficits and no sensory deficits noted SENSORIUM/ORIENTATION: Yes somnolent MOTOR EXAM: Tremors during motor activity present resting tremor Psych: COMMON NORMALS: mental status grossly normal, Normal thought process present, cooperative, normal affect and speech normal SPEECH: Yes normal speech THOUGHT PROCESS: Normal thought process present Skin: COMMON NORMALS: no jaundice, no petechiae and no mottling NARRATIVE SKIN EXAM: -chronic venous stasis dermatitis Urinary Catheter Management^: Lam: Cath Placed During This Visit: yes Reason for Continuing Indwelling Catheter: Accurate Measurement of Urinary Output in Critically Ill Patients Urinary Catheter Date of Insertion: 09/22/20 Urinary Catheter Time of Insertion: 15:01 Data : 09/23/20 02:30 09/23/20 02:30 A&P Assessment and plan (1) Acute exacerbation of CHF (congestive heart failure): -acute exacerbation of diastolic CHF as evidenced by lower extremity edema, hypoxia with increased oxygen requirement, BNP elevation-1778 -Echo (03/2020): EF=60-65%, possible septal hypokinesis, mechanical prosthetic mitral valve (well seated), trace AR, mild to moderate TR, severe pulmonary HTN (68) -CXR reported as unremarkable -IV diuresis -Lam catheter in place; assess daily for removal -daily weights, monitor Is & Os -telemetry monitoring -continue to monitor vital signs -follows up with Dr. Mays Status: Acute Qualifiers: Heart failure type: diastolic Qualified Code(s): I50.33 - Acute on chronic diastolic (congestive) heart failure (2) Chronic hypercapnic respiratory failure: -acute on chronic hypercapnia respiratory failure -noted hypercapnia on ABG -off BiPAP -continue to monitor respiratory status closely -rapid COVID-19 negative -oxygen dependent at baseline, 2 L NC Status: Acute (3) Anemia: -baseline Hg around 9-10 -continue to monitor H/H -continue to hold Coumadin -prior GI workup in 2017 with EGD showing small hiatal hernia and Schzatki's ring; colonoscopy showing internal hemorrhoids and small polyp. Incomplete small bowel endoscopy but whatever portion was completed did not reveal bleeding source -continue iron supplementation, bowel regimen; has been responsive to IV iron supplementation in the past -follows up with Dr. Bullock Status: Chronic Qualifiers: Anemia type: iron deficiency Iron deficiency anemia type: chronic blood loss Qualified Code(s): D50.0 - Iron deficiency anemia secondary to blood loss (chronic) (4) Parkinson disease: -fall, aspiration precautions -continue meds -follows up with Dr. Rainey in [place] Status: Chronic (5) Hypothyroidism: -continue levothyroxine Status: Chronic Qualifiers: Hypothyroidism type: unspecified Qualified Code(s): E03.9 - Hypothyroidism, unspecified (6) Weakness: -seems to be a progressive issue, likely multifactorial given underlying comorbidities including Parkinson disease and decreasing mobility -fall precautions -PT/OT evaluations appreciated Status: Acute Additional A&P Information -CAD s/p stenting -severe pulmonary HTN as noted above -s/p mitral valve (bioprosthetic) replacement; on AC with Coumadin, INR-2.82 (therapeutic); hold AC for now due to anemia -Chronic atrial fibrillation; telemetry monitoring, continue BB -HTN; continue oral antihypertensives -Hyperlipidemia; continue statin -Oxygen-dependent COPD, 2 L qhs at baseline -CKD stage 2; baseline Cr is < 1.0 -advance to FLD for now in case of respiratory status decompensation -GI ppx with PPI -DVT ppx with SCDs, hold AC -Dispo: home -Code status: FULL code; discussed with patient and at bedside Attestations Medical Necessity Statement*: Patient requires hospitalization for continued IV diuresis, monitoring of hemoglobin given underlying anemia, monitoring of hemodynamic and respiratory status. Time Spent in Patient Care: 16 - 35 minutes (>than 50% of time spent in counselling and/or direct pt care on unit) . Coding Level of Care Code Acute Customs Import Specialist for Chg Fwd Exam Comprehensive Diagnoses Acute exacerbation of CHF (congestive heart failure) I50.33 Heart failure type: diastolic Chronic hypercapnic respiratory failure J96.12 Anemia D50.0 Anemia type: iron deficiency Iron deficiency anemia type: chronic blood loss Parkinson disease G20 Hypothyroidism E03.9 Hypothyroidism type: unspecified Weakness R53.1
--- NOTE | 2020-09-23 13:41 | PC.RESP ---
Pulmonary Rehab information sent to patient.
[2020-09-23] MEDS: potassium chloride ER 20 mEq Tablet PO (17:52)
--- NOTE | 2020-09-23 18:04 | PC.PT ---
Patient declined earlier attempted PT evaluation,, was fatigued after working with occupational therapy; reattempted at this time, patient's physician present and felt physical therapy evaluation should wait until tomorrow. Will reattempt tomorrow. [ End ]
[2020-09-24] VITALS (15 sets, daily range): BP systolic 95–118; BP diastolic 38–69; PULSE 72–110; RESP 18–30; TEMP 35.9–37.1; O2SAT 94–100
[2020-09-24 04:44] LABS: Basophils % 1.1 %; Eosinophils # 0.1 10^3/uL (0.0-0.8); Eosinophils % 3.6 %; Hematocrit 27.1 % (37.0-47.0); Lymphocytes # 0.5 10^3/uL (0.8-4.8); Lymphocytes % 13.4 %; Mean Corpuscular HGB Conc 29.5 g/dL (30.0-36.0); Mean Corpuscular Hemoglobin 31.9 pg (28.0-34.0); Mean Platelet Volume 10.5 fL (7.4-10.4); Monocytes # 0.3 10^3/uL (0.2-0.9); Neutrophils # 2.65 10^3/uL (1.8-7.7); Neutrophils % 72.6 %; Nucleated Red Blood Cells % 0 %; Platelet Count 122 10^3/cmm (130-400); Red Blood Count 2.51 10^6/uL (4.1-5.3); Red Cell Distribution Width 16.7 % (12.1-15.1); White Blood Count 3.7 10^3/uL (4.0-10.0)
[2020-09-24 05:10] LABS: Alanine Aminotransferase 6 U/L (0-33); Albumin Level 3.4 g/dL (3.5-5.2); Alkaline Phosphatase 127 IU/L (35-105); Blood Urea Nitrogen 9 mg/dL (8-23); Calcium 7.7 mg/dL (8.5-10.5); Chloride 98 mmol/L (98-107); Globulin 2.3 g/dL (1.3-4.6); Glucose 92 mg/dL (65-115); Osmolality Calculated 296 mOsm/kg (285-295); Sodium 144 mmol/L (136-145); Total Bilirubin 1.6 mg/dL (0.15-1.2); Total Protein 5.7 g/dL (6.6-8.7)
[2020-09-24 05:33] LABS: Anion Gap 7.3 (5-19); Aspartate Amino Transferase 15 U/L (0-32); Carbon Dioxide 42 mmol/L (22-29); Potassium 3.3 mmol/L (3.5-5.1)
[2020-09-24] MEDS: sennosides-docusate Tablet 2 TAB PO ×2 (09:22→17:54)
[2020-09-24] MEDS: polyethylene glycol 3350 Pkt 17 gm PO (09:22)
[2020-09-24] MEDS: pantoprazole DR 40 mg Tablet PO ×2 (09:23→17:54)
[2020-09-24] MEDS: levothyroxine 50 mcg Tablet PO (09:23)
[2020-09-24] MEDS: atorvastatin 40 mg Tablet DOBHOFF (09:23)
[2020-09-24] MEDS: ferrous gluconate 324 mg Tablet PO ×2 (09:23→17:54)
[2020-09-24] MEDS: fluoxetine 10 mg Capsule PO (09:23)
[2020-09-24] MEDS: metoprolol tartrate 25 mg Tablet 12.5 MG PO (09:23)
[2020-09-24] MEDS: potassium chloride ER 20 mEq Tablet PO (09:23)
[2020-09-24] MEDS: isosorbide mononitrate ER 30 mg Tablet PO (09:23)
[2020-09-24] MEDS: bumetanide 0.25 mg/mL SDV 4 mL 1 MG IV ×2 (09:30→19:00)
[2020-09-24] MEDS: ipratropium-albuterol 3 mL Neb INHALATION (09:55)
--- NOTE | 2020-09-24 10:00 | P.PN_ITS ---
Subjective Subjective: Interval history: From review of overnight documentation seems to have used BiPAP briefly, noted hypercapnia this morning. Currently on 2 L nasal cannula, hemodynamically stable and afebrile, had 600 mL urine output overnight for total negative fluid balance of 1.6 L. Heart rate controlled consistently. Remains on IV diuresis. Noted stable hemoglobin and renal function. Slight hypokalemia, will increase supplementation. Still fatigued but more alert today. Worked with PT this morning. Medications: Reviewed: Yes Medication Review Details: Active Medications Generic Name Dose Route Start Last Admin Trade Name Freq PRN Reason Stop Dose Admin Acetaminophen 650 mg 09/22/20 19:56 Acetaminophen 32 5 Mg Tablet PO Q6H PRN MILD PAIN Albuterol/Ipratrop ium 3 ml 09/23/20 01:53 Ipratropium-Albu terol 3 Ml Neb INHALATION Q6H.RESPIRATORY P RN SHORTNESS OF [place] TH Atorvastatin Calci um 40 mg 09/23/20 09:00 09/24/20 09:23 Atorvastatin 40 Mg Tablet DOBHOFF 40 mg DAILY HARLAN Administration Bumetanide 1 mg 09/22/20 20:00 09/24/20 09:30 Bumetanide 0.25 Mg/Ml Sdv 4 Ml IV 1 mg Q12H HARLAN Administration Carbidopa/Levodopa 1 each 09/23/20 09:00 09/24/20 09:23 Carbidopa-Levodo pa 10-100 Mg Table t PO 1 each BID HARLAN Administration Ferrous Gluconate 324 mg 09/23/20 09:00 09/24/20 09:23 Ferrous Gluconat e 324 Mg Tablet PO 324 mg BID HARLNA Administration Fluoxetine HCl 10 mg 09/23/20 09:00 09/24/20 09:23 Fluoxetine 10 Mg Capsule PO 10 mg DAILY HARLAN Administration Isosorbide Mononit rate 30 mg 09/23/20 09:00 09/24/20 09:23 Isosorbide [place] itrate Er 30 Mg Ta blet PO 30 mg DAILY HARLAN Administration Levothyroxine Sodi um 50 mcg 09/23/20 09:00 09/24/20 09:23 Levothyroxine 50 Mcg Tablet PO 50 mcg DAILY HARLAN Administration Metoprolol Tartrat e 12.5 mg 09/23/20 09:00 09/24/20 09:23 Metoprolol Tartr ate 25 Mg Tablet PO 12.5 mg BID HARLAN Administration Ondansetron HCl 4 mg 09/22/20 19:56 Ondansetron 2 Mg /Ml Sdv 2 Ml IVP Q6H PRN NAUSEA AND VOMITI NG Pantoprazole Sodiu m 40 mg 09/23/20 09:00 09/24/20 09:[address] 40 Mg Tablet PO 40 mg BID HARLAN Administration Polyethylene Glyco l 17 gm 09/23/20 09:00 09/24/20 09:22 Polyethylene Gly col 3350 Pkt 17 Gm PO 17 gm DAILY HARLAN Administration Potassium Chloride 20 meq 09/23/20 18:00 09/24/20 09:23 Potassium Chlori de Er 20 Meq Table t PO 20 meq BID HARLAN Administration Senna/Docusate Sod ium 2 tab 09/23/20 09:00 09/24/20 09:22 Sennosides-Docus ate Tablet PO 2 tab BID HARLAN Administration penicillin G Allergy (Verified 09/17/20 15:57) UNK Vitals/I&O/Wt Last Vital Signs Temp 96.8 F L 09/24/20 07:13 Pulse 80 09/24/20 07:13 Resp 26 H 09/24/20 07:13 BP 113/49 09/24/20 07:13 Pulse Ox 98 09/24/20 07:13 09/23/20 09/24/20 09/24/20 22:59 06:59 14:59 Intake Total 340 / 1020 Output Total 1080 / 1080 200 / 1280 Balance -740 / -60 -200 / -260 Weight last 48 hrs Weight 66.678 kg Weight 67.948 kg Weight 69.853 kg Weight 59.24 kg Physical Exam Const: COMMON NORMALS: no acute distress GENERAL APPEARANCE: cooperative, comfortable and frail appearing ORIENTATION/CONSCIOUSNESS: Yes awake OTHER: -sleepy though easily arousable; appears quite fatigued though more alert today HENMT: COMMON NORMALS: normocephalic, atraumatic, hearing grossly normal bilaterally and moist oral mucous membranes HEAD & SCALP: normocephalic and atraumatic Eye: COMMON NORMALS: Equal, round and reactive pupils present, EOMs intact bilaterally and conjunctivae normal CONJUNCTIVA: Yes conjunctivae normal PUPIL: Yes Equal, round and reactive pupils present Neck/C-Spine: COMMON NORMALS: full ROM GENERAL: Yes normal visual inspection and Yes trachea midline Chest: OTHER: -healed sternotomy scar Resp: COMMON NORMALS: normal respiratory effort, No retractions and No use of accessory muscles EFFORT & INSPECTION: Yes able to speak in complete sentences, Yes symmetric chest movement and Yes tachypneic AUSCULTATION: diminished lung sounds OTHER: -on 2 L NC Cardio: COMMON NORMALS: regular rate, regular rhythm, S1 normal heart sound present, S2 normal heart sound present and No murmurs present (Cardio) RATE: regular rate RHYTHM: regular rhythm HEART SOUNDS: S1 normal heart sound present, S2 normal heart sound present and Clicking heart sound present GI: COMMON NORMALS: Normal to inspection, nondistended, normoactive bowel sounds present, Soft to palpation and non-tender PALPATION: Yes Soft to palpation : BLADDER/KIDNEY EXAM: Yes catheter in place Catheter type (Female): urethral Extremity: COMMON NORMALS: normal to inspection, full ROM and no clubbing, cyanosis or edema; negative for no pedal edema NARRATIVE EXTREMITY EXAM: -noted 1+ pitting edema of bilateral LEs; VIVIANA hose and SCDs on Neuro: COMMON NORMALS: moves all extremities, no focal motor deficits and no sensory deficits noted SENSORIUM/ORIENTATION: Yes somnolent MOTOR EXAM: Tremors during motor activity present resting tremor Psych: COMMON NORMALS: mental status grossly normal, Normal thought process present, cooperative, normal affect and speech normal SPEECH: Yes normal speech THOUGHT PROCESS: Normal thought process present Skin: COMMON NORMALS: no jaundice, no petechiae and no mottling NARRATIVE SKIN EXAM: -chronic venous stasis dermatitis Urinary Catheter Management^: Lam: Cath Placed During This Visit: yes Reason for Continuing Indwelling Catheter: Accurate Measurement of Urinary Output in Critically Ill Patients Urinary Catheter Date of Insertion: 09/22/20 Urinary Catheter Time of Insertion: 15:01 Data : 09/24/20 04:00 09/24/20 04:00 A&P Assessment and plan (1) Acute exacerbation of CHF (congestive heart failure): -acute exacerbation of diastolic CHF as evidenced by lower extremity edema, hypoxia with increased oxygen requirement, BNP elevation-1778 -Echo (03/2020): EF=60-65%, possible septal hypokinesis, mechanical prosthetic mitral valve (well seated), trace AR, mild to moderate TR, severe pulmonary HTN (68) -CXR reported as unremarkable -IV diuresis; so far has diuresed 1.6 L; may consider switch to oral diuretics tomorrow if better compensated -Lam catheter in place; assess daily for removal -daily weights, monitor Is & Os -telemetry monitoring -continue to monitor vital signs -follows up with Dr. Mays Status: Acute Qualifiers: Heart failure type: diastolic Qualified Code(s): I50.33 - Acute on chronic diastolic (congestive) heart failure (2) Chronic hypercapnic respiratory failure: -acute on chronic hypercapnia respiratory failure -noted hypercapnia on ABG -off BiPAP -continue to monitor respiratory status closely -rapid COVID-19 negative -oxygen dependent at baseline, 2 L NC Status: Acute (3) Anemia: -baseline Hg around 9-10 -continue to monitor H/H -continue to hold Coumadin; may resume if Hg stable -prior GI workup in 2017 with EGD showing small hiatal hernia and Schzatki's ring; colonoscopy showing internal hemorrhoids and small polyp. Incomplete small bowel endoscopy but whatever portion was completed did not reveal bleeding so urce -continue iron supplementation, bowel regimen; has been responsive to IV iron supplementation in the past -follows up with Dr. Bullock Status: Chronic Qualifiers: Anemia type: iron deficiency Iron deficiency anemia type: chronic blood loss Qualified Code(s): D50.0 - Iron deficiency anemia secondary to blood loss (chronic) (4) Parkinson disease: -fall, aspiration precautions -continue meds -follows up with Dr. Rainey in [place] Status: Chronic (5) Hypothyroidism: -continue levothyroxine Status: Chronic Qualifiers: Hypothyroidism type: unspecified Qualified Code(s): E03.9 - Hypothyroidism, unspecified (6) Weakness: -seems to be a progressive issue, likely multifactorial given underlying comorbidities including Parkinson disease and decreasing mobility. I suspect that some degree of this will be her new baseline. 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 Time Spent in Patient Care: 16 - 35 minutes (>than 50% of time spent in counselling and/or direct pt care on unit) . Coding Level of Care Code Acute Metal Extrusion Supervisor for Chg Fwd Exam Comprehensive Diagnoses Acute exacerbation of CHF (congestive heart failure) I50.33 Heart failure type: diastolic Chronic hypercapnic respiratory failure J96.12 Anemia D50.0 Anemia type: iron deficiency Iron deficiency anemia type: chronic blood loss Parkinson disease G20 Hypothyroidism E03.9 Hypothyroidism type: unspecified Weakness R53.1
[2020-09-24] MEDS: metoprolol tartrate 1 mg/1 mL SDV 5 mL 2.5 MG IV (12:21)
[2020-09-24] MEDS: potassium chloride ER 20 mEq Tablet 30 MEQ PO (17:54)
[2020-09-24] MEDS: metoprolol tartrate 25 mg Tablet PO (17:54)
--- NOTE | 2020-09-24 19:03 | PC.NURSE ---
Patient is alert and oriented x4 at this time. Bed alarm is set. Patient educated not to get up without assistance and verbalized understanding. Patient oriented to call light and has call light within reach. Will monitor.
--- NOTE | 2020-09-24 22:55 | PC.NURSE ---
Patient lifted up and repositioned in bed with 2 assist.
[2020-09-25] VITALS (15 sets, daily range): BP systolic 101–121; BP diastolic 46–67; PULSE 64–98; RESP 18–282; TEMP 36.7–37.5; O2SAT 93–100
--- NOTE | 2020-09-25 03:27 | PC.NURSE ---
Patient is drowsy this AM, but still responds to verbal and is able to tell me her name. Will monitor. Bed alarm is still set. Patient is still on Bipap.
[2020-09-25 04:28] LABS: Basophils % 0.5 %; Eosinophils # 0.1 10^3/uL (0.0-0.8); Eosinophils % 2.6 %; Lymphocytes # 0.7 10^3/uL (0.8-4.8); Lymphocytes % 16.2 %; Mean Corpuscular HGB Conc 28.6 g/dL (30.0-36.0); Mean Corpuscular Hemoglobin 31.9 pg (28.0-34.0); Mean Corpuscular Volume 111.6 fL (81-99); Mean Platelet Volume 10.1 fL (7.4-10.4); Monocytes # 0.6 10^3/uL (0.2-0.9); Monocytes % 13.1 %; Neutrophils # 2.84 10^3/uL (1.8-7.7); Neutrophils % 67.4 %; Nucleated Red Blood Cells % 0 %; Platelet Count 118 10^3/cmm (130-400); Red Blood Count 2.51 10^6/uL (4.1-5.3); Red Cell Distribution Width 16.8 % (12.1-15.1); White Blood Count 4.2 10^3/uL (4.0-10.0)
[2020-09-25 04:55] LABS: Alanine Aminotransferase < 5 U/L (0-33); Albumin Level 3.5 g/dL (3.5-5.2); Alkaline Phosphatase 123 IU/L (35-105); Anion Gap 3.2 (5-19); Aspartate Amino Transferase 11 U/L (0-32); Blood Urea Nitrogen 11 mg/dL (8-23); Calcium 7.7 mg/dL (8.5-10.5); Chloride 98 mmol/L (98-107); Glucose 117 mg/dL (65-115); Osmolality Calculated 294 mOsm/kg (285-295); Potassium 3.2 mmol/L (3.5-5.1); Sodium 142 mmol/L (136-145); Total Bilirubin 1.4 mg/dL (0.15-1.2); Total Protein 5.5 g/dL (6.6-8.7)
[2020-09-25 05:00] LABS: Carbon Dioxide 44 mmol/L (22-29)
--- NOTE | 2020-09-25 05:03 | PC.NURSE ---
Dr. Gallo notified of CO2 of 44. Notified that patient is drowsy, but arousable and responsive to verbal. Patient has wore Bipap most of night.
--- NOTE | 2020-09-25 05:21 | PC.NURSE ---
Patient lifted up in bed and repositioned with 2 assist.
[2020-09-25] MEDS: pantoprazole DR 40 mg Tablet PO ×2 (08:18→17:20)
[2020-09-25] MEDS: sennosides-docusate Tablet 2 TAB PO ×2 (08:18→17:20)
[2020-09-25] MEDS: ferrous gluconate 324 mg Tablet PO ×2 (08:18→17:20)
[2020-09-25] MEDS: potassium chloride ER 20 mEq Tablet 30 MEQ PO ×2 (08:18→17:20)
[2020-09-25] MEDS: levothyroxine 50 mcg Tablet PO (08:18)
[2020-09-25] MEDS: atorvastatin 40 mg Tablet DOBHOFF (08:18)
[2020-09-25] MEDS: bumetanide 0.25 mg/mL SDV 4 mL 1 MG IV (08:19)
[2020-09-25] MEDS: isosorbide mononitrate ER 30 mg Tablet PO (08:19)
[2020-09-25] MEDS: metoprolol tartrate 25 mg Tablet PO ×2 (08:19→17:20)
[2020-09-25] MEDS: polyethylene glycol 3350 Pkt 17 gm PO (08:22)
[2020-09-25] MEDS: fluoxetine 10 mg Capsule PO (08:22)
--- NOTE | 2020-09-25 09:05 | PM.PN ---
Subjective Subjective: Interval history: Noted to be drowsy this morning with evidence of hypercapnia on chemistry, will get ABG to confirm, wore BiPAP overnight. Had 800 mL urine output overnight for net negative fluid balance of 2.7 L, remains on IV diuresis, stable hemoglobin at 8, normal renal function. Heart rate controlled. More alert, just got back to bed after using the bedside commode, had a large soft BM, needed some assistance from nursing staff but was able to ambulate some on her own. Continued hypercapnia on ABG. Medications: Reviewed: Yes Medication Review Details: Active Medications Generic Name Dose Route Start Last Admin Trade Name Freq PRN Reason Stop Dose Admin Acetaminophen 650 mg 09/22/20 19:56 Acetaminophen 32 5 Mg Tablet PO Q6H PRN MILD PAIN Albuterol/Ipratrop ium 3 ml 09/23/20 01:53 09/24/20 09:55 Ipratropium-Albu terol 3 Ml Neb INHALATION 3 ml Q6H.RESPIRATORY P RN Administration SHORTNESS OF [place] TH Atorvastatin Calci um 40 mg 09/23/20 09:00 09/25/20 08:18 Atorvastatin 40 Mg Tablet DOBHOFF 40 mg DAILY HARLAN Administration Bumetanide 1 mg 09/22/20 20:00 09/25/20 08:19 Bumetanide 0.25 Mg/Ml Sdv 4 Ml IV 1 mg Q12H HARLAN Administration Carbidopa/Levodopa 1 each 09/23/20 09:00 09/25/20 08:18 Carbidopa-Levodo pa 10-100 Mg Table t PO 1 each BID HARLAN Administration Ferrous Gluconate 324 mg 09/23/20 09:00 09/25/20 08:18 Ferrous Gluconat e 324 Mg Tablet PO 324 mg BID HARLAN Administration Fluoxetine HCl 10 mg 09/23/20 09:00 09/25/20 08:22 Fluoxetine 10 Mg Capsule PO 10 mg DAILY HARLAN Administration Isosorbide Mononit rate 30 mg 09/23/20 09:00 09/25/20 08:19 Isosorbide [place] itrate Er 30 Mg Ta blet PO 30 mg DAILY HARLAN Administration Levothyroxine Sodi um 50 mcg 09/23/20 09:00 09/25/20 08:18 Levothyroxine 50 Mcg Tablet PO 50 mcg DAILY HARLAN Administration Metoprolol Tartrat e 25 mg 09/24/20 18:00 09/25/20 08:19 Metoprolol Tartr ate 25 Mg Tablet PO 25 mg BID HARLAN Administration Ondansetron HCl 4 mg 09/22/20 19:56 Ondansetron 2 Mg /Ml Sdv 2 Ml IVP Q6H PRN NAUSEA AND VOMITI NG Pantoprazole Sodiu m 40 mg 09/23/20 09:00 09/25/20 08:[address] 40 Mg Tablet PO 40 mg BID HARLAN Administration Polyethylene Glyco l 17 gm 09/23/20 09:00 09/25/20 08:22 Polyethylene Gly col 3350 Pkt 17 Gm PO 17 gm DAILY HARLAN Administration Potassium Chloride 30 meq 09/24/20 18:00 09/25/20 08:18 Potassium Chlori de Er 20 Meq Table t PO 30 meq BID HARLAN Administration Senna/Docusate Sod ium 2 tab 09/23/20 09:00 09/25/20 08:18 Sennosides-Docus ate Tablet PO 2 tab BID HARLAN Administration penicillin G Allergy (Verified 09/17/20 15:57) UNK Vitals/I&O/Wt Last Vital Signs Temp 98.6 F 09/25/20 03:13 Pulse 82 09/25/20 08:00 Resp 23 H 09/25/20 08:00 BP 101/64 09/25/20 08:00 Pulse Ox 93 09/25/20 08:00 09/24/20 09/25/20 09/25/20 22:59 06:59 14:59 Intake Total 200 / 320 240 / 240 Output Total 400 / 1000 400 / 1400 Balance -400 / -880 -200 / -1080 240 / 240 Weight last 48 hrs Weight 66.043 kg Weight 66.678 kg Weight 67.948 kg Physical Exam Const: COMMON NORMALS: no acute distress, patient oriented x3 and alert GENERAL APPEARANCE: cooperative, comfortable and frail appearing ORIENTATION/CONSCIOUSNESS: Yes awake HENMT: COMMON NORMALS: normocephalic, atraumatic, hearing grossly normal bilaterally and moist oral mucous membranes HEAD & SCALP: normocephalic and atraumatic Eye: COMMON NORMALS: Equal, round and reactive pupils present, EOMs intact bilaterally and conjunctivae normal CONJUNCTIVA: Yes conjunctivae normal PUPIL: Yes Equal, round and reactive pupils present Neck/C-Spine: COMMON NORMALS: full ROM GENERAL: Yes normal visual inspection and Yes trachea midline Chest: OTHER: -healed sternotomy scar Resp: COMMON NORMALS: normal respiratory effort, No retractions and No use of accessory muscles EFFORT & INSPECTION: Yes able to speak in complete sentences, Yes symmetric chest movement and Yes tachypneic AUSCULTATION: diminished lung sounds OTHER: -on 2 L NC Cardio: COMMON NORMALS: regular rate, regular rhythm, S1 normal heart sound present, S2 normal heart sound present and No murmurs present (Cardio) RATE: regular rate RHYTHM: regular rhythm HEART SOUNDS: S1 normal heart sound present, S2 normal heart sound present and Clicking heart sound present GI: COMMON NORMALS: Normal to inspection, nondistended, normoactive bowel sounds present, Soft to palpation and non-tender PALPATION: Yes Soft to palpation : BLADDER/KIDNEY EXAM: Yes catheter in place Catheter type (Female): urethral Extremity: COMMON NORMALS: normal to inspection, full ROM, no clubbing, cyanosis or edema and no pedal edema NARRATIVE EXTREMITY EXAM: -peripheral edema resolved Neuro: COMMON NORMALS: patient oriented x3, moves all extremities, no focal motor deficits and no sensory deficits noted SENSORIUM/ORIENTATION: Yes alert GAIT: Yes Shuffling gait present MOTOR EXAM: Tremors during motor activity present resting tremor Psych: COMMON NORMALS: mental status grossly normal, Normal thought process present, cooperative, normal affect and speech normal SPEECH: Yes normal speech THOUGHT PROCESS: Normal thought process present Skin: COMMON NORMALS: no jaundice, no petechiae and no mottling NARRATIVE SKIN EXAM: -chronic venous stasis dermatitis Urinary Catheter Management^: Lam: Cath Placed During This Visit: yes Reason for Continuing Indwelling Catheter: Accurate Measurement of Urinary Output in Critically Ill Patients Urinary Catheter Date of Insertion: 09/22/20 Urinary Catheter Time of Insertion: 15:01 Data : 09/25/20 03:36 09/25/20 03:36 A&P Assessment and plan (1) Acute exacerbation of CHF (congestive heart failure): -acute exacerbation of diastolic CHF as evidenced by lower extremity edema, hypoxia with increased oxygen requirement, BNP elevation-1778 -Echo (03/2020): EF=60-65%, possible septal hypokinesis, mechanical prosthetic mitral valve (well seated), trace AR, mild to moderate TR, severe pulmonary HTN (68) -CXR reported as unremarkable -IV diuresis; so far has diuresed 2.7 L; switch to oral diuretics today as better compensated -Lam catheter in place; assess daily for removal -daily weights, monitor Is & Os -telemetry monitoring -continue to monitor vital signs -follows up with Dr. Mays Status: Acute Qualifiers: Heart failure type: diastolic Qualified Code(s): I50.33 - Acute on chronic diastolic (congestive) heart failure (2) Chronic hypercapnic respiratory failure: -acute on chronic hypercapnia respiratory failure -noted hypercapnia on ABG -BiPAP qhs; request home unit -continue to monitor respiratory status closely -rapid COVID-19 negative -oxygen dependent at baseline, 2 L NC Status: Acute (3) Anemia: -baseline Hg around 9-10 -continue to monitor H/H -continue to hold Coumadin; may resume if Hg stable -prior GI workup in 2017 with EGD showing small hiatal hernia and Schzatki's ring; colonoscopy showing internal hemorrhoids and small polyp. Incomplete small bowel endoscopy but whatever portion was completed did not reveal bleeding source -continue iron supplementation, bowel regimen; has been responsive to IV iron supplementation in the past -follows up with Dr. Bullock Status: Chronic Qualifiers: Anemia type: iron deficiency Iron deficiency anemia type: chronic blood loss Qualified Code(s): D50.0 - Iron deficiency anemia secondary to blood loss (chronic) (4) Parkinson disease: -fall, aspiration precautions -continue meds -follows up with Dr. Rainey in [place] Status: Chronic (5) Hypothyroidism: -continue levothyroxine Status: Chronic Qualifiers: Hypothyroidism type: unspecified Qualified Code(s): E03.9 - Hypothyroidism, unspecified (6) Weakness: -seems to be a progressive issue, likely multifactorial given underlying comorbidities including Parkinson disease and decreasing mobility. I suspect that some degree of this will be her new baseline. 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 Time Spent in Patient Care: 16 - 35 minutes (>than 50% of time spent in counselling and/or direct pt care on unit). Coding Level of Care Code Acute Quality Control Tester for Chg Fwd Exam Comprehensive Diagnoses Acute exacerbation of CHF (congestive heart failure) I50.33 Heart failure type: diastolic Chronic hypercapnic respiratory failure J96.12 Anemia D50.0 Anemia type: iron deficiency Iron deficiency anemia type: chronic blood loss Parkinson disease G20 Hypothyroidism E03.9 Hypothyroidism type: unspecified Weakness R53.1
--- NOTE | 2020-09-25 09:15 | DCPLANNER ---
IMM completed on 09/25/20 @ 0905. Copy of rights given to pt.
[2020-09-25] MEDS: ipratropium-albuterol 3 mL Neb INHALATION ×2 (11:00→20:04)
[2020-09-25 12:45] LABS: ABG PH Result 7.39 (7.35-7.45); Arterial Blood Gas Hematocrit 25.1 % (37-47); Base Excess ABG 17.3 mmol/L (-2.0-2.0); Blood Gas Allen Test Pos; Blood Gas Sample Site Radial, left; Blood Gas Sample Type Arterial; HCO3 ABG 44.7 mmol/L (22-26); Oxygen Device NC
[2020-09-25 12:46] LABS: ABG PCO2 74.8 mmHg (35-45)
[2020-09-26] VITALS (15 sets, daily range): BP systolic 105–143; BP diastolic 35–81; PULSE 61–84; RESP 18–31; TEMP 35.8–36.8; O2SAT 91–100
[2020-09-26 05:32] LABS: Basophils % 0.6 %; Eosinophils # 0.1 10^3/uL (0.0-0.8); Eosinophils % 3.8 %; Lymphocytes # 0.6 10^3/uL (0.8-4.8); Mean Corpuscular HGB Conc 28.6 g/dL (30.0-36.0); Mean Corpuscular Hemoglobin 31.4 pg (28.0-34.0); Mean Corpuscular Volume 109.8 fL (81-99); Mean Platelet Volume 9.8 fL (7.4-10.4); Monocytes # 0.4 10^3/uL (0.2-0.9); Monocytes % 10.5 %; Neutrophils # 2.37 10^3/uL (1.8-7.7); Neutrophils % 68.8 %; Nucleated Red Blood Cells % 0 %; Platelet Count 111 10^3/cmm (130-400); Red Blood Count 2.55 10^6/uL (4.1-5.3); Red Cell Distribution Width 16.8 % (12.1-15.1); White Blood Count 3.4 10^3/uL (4.0-10.0)
[2020-09-26 05:55] LABS: Alanine Aminotransferase < 5 U/L (0-33); Alkaline Phosphatase 109 IU/L (35-105); Aspartate Amino Transferase 10 U/L (0-32); Blood Urea Nitrogen 8 mg/dL (8-23); Calcium 7.5 mg/dL (8.5-10.5); Carbon Dioxide 37 mmol/L (22-29); Chloride 102 mmol/L (98-107); Globulin 2.3 g/dL (1.3-4.6); Glucose 156 mg/dL (65-115); Osmolality Calculated 300 mOsm/kg (285-295); Sodium 144 mmol/L (136-145); Total Bilirubin 1.2 mg/dL (0.15-1.2); Total Protein 5.3 g/dL (6.6-8.7)
[2020-09-26] MEDS: ipratropium-albuterol 3 mL Neb INHALATION (08:20)
--- NOTE | 2020-09-26 08:58 | PM.PN ---
Subjective Subjective: Interval history: Discontinue Lam catheter, on 3 L NC, hemodynamically stable, afebrile, HR consistently controlled. Stable Hg, persistent hypokalemia, replacement ongoing. She is resting quietly in bed, no apparent distress, no acute overnight events reported. Requesting removal of compression stockings if possible. Medications: Reviewed: Yes Medication Review Details: Current Medications Generic Name Dose Route Start Last Admin Trade Name Delfin PRN Reason Stop Dose Admin Albuterol/Ipratrop ium 3 ml 09/23/20 01:53 09/26/20 08:20 Ipratropium-Albu terol 3 Ml Neb INHALATION 3 ml Q6H.RESPIRATORY P RN Administration SHORTNESS OF [place]RON TH Atorvastatin Calci um 40 mg 09/23/20 09:00 09/25/20 08:18 Atorvastatin 40 Mg Tablet DOBHOFF 40 mg DAILY HARLAN Administration Carbidopa/Levodopa 1 each 09/23/20 09:00 09/25/20 17:20 Carbidopa-Levodo pa 10-100 Mg Table t PO 1 each BID HARLAN Administration Ferrous Gluconate 324 mg 09/23/20 09:00 09/25/20 17:20 Ferrous Gluconat e 324 Mg Tablet PO 324 mg BID HARLAN Administration Fluoxetine HCl 10 mg 09/23/20 09:00 09/25/20 08:22 Fluoxetine 10 Mg Capsule PO 10 mg DAILY HARLAN Administration Isosorbide Mononit rate 30 mg 09/23/20 09:00 09/25/20 08:19 Isosorbide [place] itrate Er 30 Mg Ta blet PO 30 mg DAILY HARLAN Administration Levothyroxine Sodi um 50 mcg 09/23/20 09:00 09/25/20 08:18 Levothyroxine 50 Mcg Tablet PO 50 mcg DAILY HARLAN Administration Metoprolol Tartrat e 25 mg 09/24/20 18:00 09/25/20 17:20 Metoprolol Tartr ate 25 Mg Tablet PO 25 mg BID HARLAN Administration Pantoprazole Sodiu m 40 mg 09/23/20 09:00 09/25/20 17:[address] 40 Mg Tablet PO 40 mg BID HARLAN Administration Polyethylene Glyco l 17 gm 09/23/20 09:00 09/25/20 08:22 Polyethylene Gly col 3350 Pkt 17 Gm PO 17 gm DAILY HARLAN Administration Potassium Chloride 30 meq 09/24/20 18:00 09/25/20 17:20 Potassium Chlori de Er 20 Meq Table t PO 30 meq BID HARLAN Administration Senna/Docusate Sod ium 2 tab 09/23/20 09:00 09/25/20 17:20 Sennosides-Docus ate Tablet PO 2 tab BID HARLAN Administration Vitals/I&O/Wt Last Vital Signs Temp 97.0 F L 09/26/20 07:15 Pulse 68 09/26/20 08:26 Resp 20 H 09/26/20 08:21 BP 143/81 09/26/20 07:15 Pulse Ox 96 09/26/20 08:21 09/25/20 09/26/20 09/26/20 22:59 06:59 14:59 Intake Total 100 / 580 Output Total 500 / 1050 Balance -400 / -470 Weight last 48 hrs Weight 67.358 kg Weight 66.043 kg Physical Exam Const: COMMON NORMALS: no acute distress, patient oriented x3 and alert GENERAL APPEARANCE: cooperative, comfortable and frail appearing ORIENTATION/CONSCIOUSNESS: Yes awake OTHER: -fatigues easily and spends most of the day sleeping, alert and easy to engage in conversation during my encounter HENMT: COMMON NORMALS: normocephalic, atraumatic, hearing grossly normal bilaterally and moist oral mucous membranes HEAD & SCALP: normocephalic and atraumatic Eye: COMMON NORMALS: Equal, round and reactive pupils present, EOMs intact bilaterally and conjunctivae normal CONJUNCTIVA: Yes conjunctivae normal PUPIL: Yes Equal, round and reactive pupils present Neck/C-Spine: COMMON NORMALS: full ROM GENERAL: Yes normal visual inspection and Yes trachea midline Chest: OTHER: -healed sternotomy scar Resp: COMMON NORMALS: normal respiratory effort, No retractions and No use of accessory muscles EFFORT & INSPECTION: Yes able to speak in complete sentences, Yes symmetric chest movement and Yes tachypneic AUSCULTATION: diminished lung sounds OTHER: -on 3 L NC Cardio: COMMON NORMALS: regular rate, regular rhythm, S1 normal heart sound present, S2 normal heart sound present and No murmurs present (Cardio) RATE: regular rate RHYTHM: regular rhythm HEART SOUNDS: S1 normal heart sound present, S2 normal heart sound present and Clicking heart sound present GI: COMMON NORMALS: Normal to inspection, nondistended, normoactive bowel sounds present, Soft to palpation and non-tender PALPATION: Yes Soft to palpation : BLADDER/KIDNEY EXAM: Yes catheter in place Catheter type (Female): urethral Extremity: COMMON NORMALS: normal to inspection, full ROM, no clubbing, cyanosis or edema and no pedal edema NARRATIVE EXTREMITY EXAM: -peripheral edema resolved Neuro: COMMON NORMALS: patient oriented x3, moves all extremities, no focal motor deficits and no sensory deficits noted SENSORIUM/ORIENTATION: Yes alert GAIT: Yes Shuffling gait present MOTOR EXAM: Tremors during motor activity present resting tremor Psych: COMMON NORMALS: mental status grossly normal, Normal thought process present, cooperative, normal affect and speech normal SPEECH: Yes normal speech THOUGHT PROCESS: Normal thought process present Skin: COMMON NORMALS: no jaundice, no petechiae and no mottling NARRATIVE SKIN EXAM: -chronic venous stasis dermatitis Urinary Catheter Management^: Lam: Cath Placed During This Visit: yes Reason for Continuing Indwelling Catheter: Acute Urinary Retention or Obstruction Urinary Catheter Date of Insertion: 09/22/20 Urinary Catheter Time of Insertion: 15:01 Data : 09/26/20 04:35 09/26/20 04:35 A&P Assessment and plan (1) Acute exacerbation of CHF (congestive heart failure): -acute exacerbation of diastolic CHF as evidenced by lower extremity edema, hypoxia with increased oxygen requirement, BNP elevation-1778 -Echo (03/2020): EF=60-65%, possible septal hypokinesis, mechanical prosthetic mitral valve (well seated), trace AR, mild to moderate TR, severe pulmonary HTN (68) -CXR reported as unremarkable -off IV diuresis; so far has diuresed 3.2 L; switched to oral diuretics as better compensated -Lam catheter in place; assess daily for removal -daily weights, monitor Is & Os -telemetry monitoring -continue to monitor vital signs -follows up with Dr. Mays Status: Acute Qualifiers: Heart failure type: diastolic Qualified Code(s): I50.33 - Acute on chronic diastolic (congestive) heart failure (2) Chronic hypercapnic respiratory failure: -acute on chronic hypercapnia respiratory failure -noted hypercapnia on ABG -BiPAP qhs; request home unit -continue to monitor respiratory status closely -rapid COVID-19 negative -oxygen dependent at baseline, 2 L NC Status: Acute (3) Anemia: -baseline Hg around 9-10 -continue to monitor H/H -resume Coumadin; Hg stable -prior GI workup in 2017 with EGD showing small hiatal hernia and Schzatki's ring; colonoscopy showing internal hemorrhoids and small polyp. Incomplete small bowel endoscopy but whatever portion was completed did not reveal bleeding source -continue iron supplementation, bowel regimen; has been responsive to IV iron supplementation in the past -follows up with Dr. Bullock Status: Chronic Qualifiers: Anemia type: iron deficiency Iron deficiency anemia type: chronic blood loss Qualified Code(s): D50.0 - Iron deficiency anemia secondary to blood loss (chronic) (4) Parkinson disease: -fall, aspiration precautions -continue meds -follows up with Dr. Rainey in [place] Status: Chronic (5) Hypothyroidism: -continue levothyroxine Status: Chronic Qualifiers: Hypothyroidism type: unspecified Qualified Code(s): E03.9 - Hypothyroidism, unspecified (6) Weakness: -seems to be a progressive issue, likely multifactorial given underlying comorbidities including Parkinson disease and decreasing mobility. I suspect that some degree of this will be her new baseline. 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 Time Spent in Patient Care: 16 - 35 minutes (>than 50% of time spent in counselling and/or direct pt care on unit). Coding Level of Care Code Acute General Surgeon for [facility] Fwd Exam Comprehensive Diagnoses Acute exacerbation of CHF (congestive heart failure) I50.33 Heart failure type: diastolic Chronic hypercapnic respiratory failure J96.12 Anemia D50.0 Anemia type: iron deficiency Iron deficiency anemia type: chronic blood loss Parkinson disease G20 Hypothyroidism E03.9 Hypothyroidism type: unspecified Weakness R53.1
[2020-09-26] MEDS: potassium chloride ER 20 mEq Tablet 30 MEQ PO ×2 (09:03→17:58)
[2020-09-26] MEDS: atorvastatin 40 mg Tablet DOBHOFF (09:03)
[2020-09-26] MEDS: levothyroxine 50 mcg Tablet PO (09:04)
[2020-09-26] MEDS: isosorbide mononitrate ER 30 mg Tablet PO (09:04)
[2020-09-26] MEDS: metoprolol tartrate 25 mg Tablet PO ×2 (09:04→17:58)
[2020-09-26] MEDS: pantoprazole DR 40 mg Tablet PO ×2 (09:04→17:58)
[2020-09-26] MEDS: bumetanide 1 mg Tablet 2 MG PO (09:05)
[2020-09-26] MEDS: ferrous gluconate 324 mg Tablet PO ×2 (09:10→17:58)
[2020-09-26] MEDS: fluoxetine 10 mg Capsule PO (09:30)
[2020-09-26] MEDS: lidocaine 1% 5 ML in potassium chloride premix 100 ML 25 ML IV (09:30)
[2020-09-26] MEDS: warfarin 2 mg Tablet 4 MG PO (15:18)
[2020-09-26] MEDS: atorvastatin 40 mg Tablet PO (20:47)
[2020-09-27] VITALS (16 sets, daily range): BP systolic 115–141; BP diastolic 38–62; PULSE 61–88; RESP 19–33; TEMP 35.6–36.9; O2SAT 94–100
--- NOTE | 2020-09-27 03:36 | PC.NURSE ---
PT RESTING IN BED. PT DENIES PAIN. PT HAS NOT DONE WELL WITH KEEPING BIPAP ON. WILL CONTINUE TO MONITOR.
[2020-09-27 04:00] LABS: Basophils % 0.7 %; Eosinophils # 0.1 10^3/uL (0.0-0.8); Eosinophils % 1.7 %; Hematocrit 30.9 % (37.0-47.0); Hemoglobin 8.9 g/dL (11.5-15.3); Lymphocytes # 0.6 10^3/uL (0.8-4.8); Lymphocytes % 9.7 %; Mean Corpuscular HGB Conc 28.8 g/dL (30.0-36.0); Mean Corpuscular Hemoglobin 31.7 pg (28.0-34.0); Mean Platelet Volume 10.2 fL (7.4-10.4); Monocytes # 0.5 10^3/uL (0.2-0.9); Monocytes % 9.2 %; Neutrophils # 4.51 10^3/uL (1.8-7.7); Neutrophils % 78.4 %; Nucleated Red Blood Cells % 0 %; Platelet Count 140 10^3/cmm (130-400); Red Blood Count 2.81 10^6/uL (4.1-5.3); Red Cell Distribution Width 16.4 % (12.1-15.1); White Blood Count 5.8 10^3/uL (4.0-10.0)
[2020-09-27 04:10] LABS: INR 1.39 (0.8-1.2)
[2020-09-27 04:24] LABS: Potassium 4.6 mmol/L (3.5-5.1)
[2020-09-27] MEDS: ipratropium-albuterol 3 mL Neb INHALATION ×2 (08:44→15:53)
--- NOTE | 2020-09-27 09:03 | PC.NURSE ---
Patient did not eat breakfast this morning. Patient not talkative as is her usual. Patient using accessory muscles for breathing. O2 saturation is 96% on NC. HR 74. RR 26. Patient was given breathing treatment by RT and placed back on Bipap. 0900 daily PO meds held at present. Call placed o Dr. Cordova regarding these observations.
--- NOTE | 2020-09-27 10:06 | PM.PN ---
Subjective Subjective: Interval history: Per review of overnight nursing documentation does not seem to have used BiPAP consistently throughout the night, per dayshift nurse patient seems to be more somnolent and not as interactive this morning. Has been placed on BiPAP. Had 200 mL urine output overnight for total negative fluid balance of 3.2 L. Vital signs are stable. Hemoglobin is stable as well, potassium within normal limits. She is more awake during my visit, requesting a break from BiPAP so she can have some lunch as she is quite hungry, she missed her breakfast due to somnolence, requested nursing staff to give her her morning meds. Medications: Reviewed: Yes Medication Review Details: Active Medications Generic Name Dose Route Start Last Admin Trade Name Freq PRN Reason Stop Dose Admin Acetaminophen 650 mg 09/22/20 19:56 Acetaminophen 32 5 Mg Tablet PO Q6H PRN MILD PAIN Albuterol/Ipratrop ium 3 ml 09/23/20 01:53 09/27/20 08:44 Ipratropium-Albu terol 3 Ml Neb INHALATION 3 ml Q6H.RESPIRATORY P RN Administration SHORTNESS OF [place] TH Atorvastatin Calci um 40 mg 09/26/20 21:00 09/26/20 20:47 Atorvastatin 40 Mg Tablet PO 40 mg BEDTIME HARLAN Administration Bumetanide 2 mg 09/26/20 09:00 09/26/20 09:05 Bumetanide 1 Mg Tablet PO 2 mg DAILY HARLAN Administration Carbidopa/Levodopa 1 each 09/23/20 09:00 09/26/20 17:58 Carbidopa-Levodo pa 10-100 Mg Table t PO 1 each BID HALRAN Administration Ferrous Gluconate 324 mg 09/23/20 09:00 09/26/20 17:58 Ferrous Gluconat e 324 Mg Tablet PO 324 mg BID HARLAN Administration Fluoxetine HCl 10 mg 09/23/20 09:00 09/26/20 09:30 Fluoxetine 10 Mg Capsule PO 10 mg DAILY HARLAN Administration Isosorbide Mononit rate 30 mg 09/23/20 09:00 09/26/20 09:04 Isosorbide [place] itrate Er 30 Mg Ta blet PO 30 mg DAILY HARLAN Administration Levothyroxine Sodi um 50 mcg 09/23/20 09:00 09/26/20 09:04 Levothyroxine 50 Mcg Tablet PO 50 mcg DAILY HARLAN Administration Metoprolol Tartrat e 25 mg 09/24/20 18:00 09/26/20 17:58 Metoprolol Tartr ate 25 Mg Tablet PO 25 mg BID HARLAN Administration Ondansetron HCl 4 mg 09/22/20 19:56 Ondansetron 2 Mg /Ml Sdv 2 Ml IVP Q6H PRN NAUSEA AND VOMITI NG Pantoprazole Sodiu m 40 mg 09/23/20 09:00 09/26/20 17:[address] 40 Mg Tablet PO 40 mg BID HARLAN Administration Polyethylene Glyco l 17 gm 09/23/20 09:00 09/26/20 09:06 Polyethylene Gly col 3350 Pkt 17 Gm PO Not Given DAILY HARLAN Potassium Chloride 30 meq 09/24/20 18:00 09/26/20 17:58 Potassium Chlori de Er 20 Meq Table t PO 30 meq BID HARLAN Administration Senna/Docusate Sod ium 2 tab 09/23/20 09:00 09/26/20 17:59 Sennosides-Docus ate Tablet PO Not Given BID [facility] Warfarin Sodium 4 mg 09/26/20 14:00 09/26/20 15:18 Warfarin 2 Mg Ta blet PO 4 mg DAILY@1400 HARLAN Administration penicillin G Allergy (Verified 09/17/20 15:57) UNK Vitals/I&O/Wt Last Vital Signs Temp 96.1 F L 09/27/20 07:12 Pulse 84 09/27/20 08:52 Resp 28 H 09/27/20 08:46 BP 141/62 09/27/20 07:12 Pulse Ox 100 09/27/20 08:52 09/26/20 09/27/20 09/27/20 22:59 06:59 14:59 Intake Total 440 / 1020 Output Total 200 / 800 200 / 1000 Balance 240 / 220 -200 / 20 Weight last 48 hrs Weight 66.315 kg Weight 67.358 kg Physical Exam Const: COMMON NORMALS: no acute distress, patient oriented x3 and alert GENERAL APPEARANCE: cooperative, comfortable and frail appearing ORIENTATION/CONSCIOUSNESS: Yes awake OTHER: -fatigues easily and spends most of the day sleeping, alert and easy to engage in conversation during my encounter HENMT: COMMON NORMALS: normocephalic, atraumatic, hearing grossly normal bilaterally and moist oral mucous membranes HEAD & SCALP: normocephalic and atraumatic Eye: COMMON NORMALS: Equal, round and reactive pupils present, EOMs intact bilaterally and conjunctivae normal CONJUNCTIVA: Yes conjunctivae normal PUPIL: Yes Equal, round and reactive pupils present Neck/C-Spine: COMMON NORMALS: full ROM GENERAL: Yes normal visual inspection and Yes trachea midline Chest: OTHER: -healed sternotomy scar Resp: COMMON NORMALS: normal respiratory effort, No retractions and No use of accessory muscles EFFORT & INSPECTION: Yes able to speak in complete sentences, Yes symmetric chest movement and Yes tachypneic AUSCULTATION: diminished lung sounds OTHER: -on BiPAP Cardio: COMMON NORMALS: regular rate, regular rhythm, S1 normal heart sound present, S2 normal heart sound present and No murmurs present (Cardio) RATE: regular rate RHYTHM: regular rhythm HEART SOUNDS: S1 normal heart sound present, S2 normal heart sound present and Clicking heart sound present GI: COMMON NORMALS: Normal to inspection, nondistended, normoactive bowel sounds present, Soft to palpation and non-tender PALPATION: Yes Soft to palpation : BLADDER/KIDNEY EXAM: Yes catheter in place Catheter type (Female): urethral Extremity: COMMON NORMALS: normal to inspection, full ROM, no clubbing, cyanosis or edema and no pedal edema NARRATIVE EXTREMITY EXAM: -peripheral edema resolved Neuro: COMMON NORMALS: patient oriented x3, moves all extremities, no focal motor deficits and no sensory deficits noted SENSORIUM/ORIENTATION: Yes alert GAIT: Yes Shuffling gait present MOTOR EXAM: Tremors during motor activity present resting tremor Psych: COMMON NORMALS: mental status grossly normal, Normal thought process present, cooperative, normal affect and speech normal SPEECH: Yes normal speech THOUGHT PROCESS: Normal thought process present Skin: COMMON NORMALS: no jaundice, no petechiae and no mottling NARRATIVE SKIN EXAM: -chronic venous stasis dermatitis Urinary Catheter Management^: Lam: Cath Placed During This Visit: yes, but has since been removed by the nurse Reason for Continuing Indwelling Catheter: Decision to DC Catheter Urinary Catheter Date of Insertion: 09/22/20 Urinary Catheter Time of Insertion: 15:01 Date Urinary Catheter Removed: 09/26/20 Time Urinary Catheter Discontinued: 12:30 Data : 09/27/20 03:09 09/27/20 03:09 A&P Assessment and plan (1) Acute exacerbation of CHF (congestive heart failure): -acute exacerbation of diastolic CHF as evidenced by lower extremity edema, hypoxia with increased oxygen requirement, BNP elevation-1777 -Echo (03/2020): EF=60-65%, possible septal hypokinesis, mechanical prosthetic mitral valve (well seated), trace AR, mild to moderate TR, severe pulmonary HTN (68) -CXR reported as unremarkable -off IV diuresis; so far has diuresed 3.2 L; switched to oral diuretics as better compensated -Lam catheter in place; assess daily for removal -daily weights, monitor Is & Os -telemetry monitoring -continue to monitor vital signs -follows up with Dr. Mays Status: Resolved Qualifiers: Heart failure type: diastolic Qualified Code(s): I50.33 - Acute on chronic diastolic (congestive) heart failure (2) Chronic hypercapnic respiratory failure: -acute on chronic hypercapnia respiratory failure -noted hypercapnia on multiple ABGs -BiPAP qhs; request home unit; as she has indicated on multiple occasions once she is off BiPAP for long intervals she develops increased somnolence, confusion and overall depressed responsiveness due to CO2 retention. Will need BiPAP set up for home use as quickly as possible. -continue to monitor respiratory status closely -rapid COVID-19 negative -oxygen dependent at baseline, 2 L NC Status: Acute (3) Anemia: -baseline Hg around 9-10 -continue to monitor H/H -resumed Coumadin; Hg stable -prior GI workup in 2017 with EGD showing small hiatal hernia and Schzatki's ring; colonoscopy showing internal hemorrhoids and small polyp. Incomplete small bowel endoscopy but whatever portion was completed did not reveal bleeding source -continue iron supplementation, bowel regimen; has been responsive to IV iron supplementation in the past -follows up with Dr. Bullock Status: Chronic Qualifiers: Anemia type: iron deficiency Iron deficiency anemia type: chronic blood loss Qualified Code(s): D50.0 - Iron deficiency anemia secondary to blood loss (chronic) (4) Parkinson disease: -fall, aspiration precautions -continue meds -follows up with Dr. Rainey in [place] Status: Chronic (5) Hypothyroidism: -continue levothyroxine Status: Chronic Qualifiers: Hypothyroidism type: unspecified Qualified Code(s): E03.9 - Hypothyroidism, unspecified (6) Weakness: -seems to be a progressive issue, likely multifactorial given underlying comorbidities including Parkinson disease and decreasing mobility. I suspect that some degree of this will be her new baseline. 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 -CKD stage 2; baseline Cr is < 1.0 -T.bili elevation, now resolved, noted previously, prior liver imaging negative for hepatomegaly, biliary ductal dilatation -cardiac diet; Ensure -GI ppx with PPI -DVT ppx with SCDs, resume AC -Dispo: home with HH -Code status: FULL code -anticipate discharge tomorrow if continued stability/improvement and able to set up BiPAP Attestations Medical Necessity Statement*: Patient requires hospitalization for continued close monitoring of respiratory status particularly in light of noted increased somnolence and overall ill appearance, currently requiring continuous BiPAP support. Time Spent in Patient Care: 16 - 35 minutes (>than 50% of time spent in counselling and/or direct pt care on unit). Coding Level of Care Code Acute Quality Reviewer for [facility] Fwd Exam Comprehensive Diagnoses Acute exacerbation of CHF (congestive heart failure) I50.33 Heart failure type: diastolic Chronic hypercapnic respiratory failure J96.12 Anemia D50.0 Anemia type: iron deficiency Iron deficiency anemia type: chronic blood loss Parkinson disease G20 Hypothyroidism E03.9 Hypothyroidism type: unspecified Weakness R53.1
--- NOTE | 2020-09-27 10:20 | PC.NURSE ---
Patient continues on bipap. Respirations less labored RR 25. O2 sat 96%
--- NOTE | 2020-09-27 11:00 | PC.SOCIAL ---
IMM Updated Page 2 of IMM updated and provided to patient. Initialed, dated, and timed and placed back in chart.
--- NOTE | 2020-09-27 11:41 | PC.PT ---
Pt. was on CPAP machine. Therapist spoke to patient's nurse who stated that pt. had been extremely lethargic all day and that CPAP could not be removed at this time. Will attempt treatment again tomorrow.
[2020-09-27] MEDS: warfarin 2 mg Tablet 4 MG PO (15:27)
[2020-09-27] MEDS: ferrous gluconate 324 mg Tablet PO (17:09)
[2020-09-27] MEDS: potassium chloride ER 20 mEq Tablet 30 MEQ PO (17:10)
[2020-09-27] MEDS: pantoprazole DR 40 mg Tablet PO (17:10)
[2020-09-27] MEDS: sennosides-docusate Tablet 2 TAB PO (17:10)
[2020-09-27] MEDS: metoprolol tartrate 25 mg Tablet PO (17:10)
[2020-09-27] MEDS: atorvastatin 40 mg Tablet PO (20:44)
[2020-09-28] VITALS (13 sets, daily range): BP systolic 107–128; BP diastolic 34–99; PULSE 58–77; RESP 19–27; TEMP 35.9–36.6; O2SAT 96–100
--- NOTE | 2020-09-28 02:31 | PC.NURSE ---
PT IS RESTING IN BED. PT HAS KEPT BIPAP ON. THIS NURSE AND SEATING AND MOBILITY TECHNOLOGIST CHANGED ALL LINENS ON BED. PT DENIES PAIN. WILL CONTINUE TO MONITOR.
--- NOTE | 2020-09-28 04:24 | PC.NURSE ---
PT HAS HAD AN UNEVENTFUL NIGHT. ON BIPAP ALL NIGHT. PT DENIES PAIN. WILL CONTINUE TO MONITOR.
[2020-09-28 05:50] LABS: INR 1.51 (0.8-1.2)
--- NOTE | 2020-09-28 08:54 | P.PN_ITS ---
Subjective Subjective: Interval history: Used BiPAP all night, had to 50 mL urine output overnight, hemodynamically stable and afebrile. Will need to follow-up on arranging for home Trilogy. INR at 1.51 with resumption of Coumadin. Again was somnolent earlier this morning, did use BiPAP consistently all night and remains on BiPAP this morning. With continued use she is more awake and alert. Still working on setting up home trilogy unit. Medications: Reviewed: Yes Medication Review Details: Current Medications Generic Name Dose Route Start Last Admin Trade Name Flakoq PRN Reason Stop Dose Admin Albuterol/Ipratrop ium 3 ml 09/23/20 01:53 09/27/20 15:53 Ipratropium-Albu terol 3 Ml Neb INHALATION 3 ml Q6H.RESPIRATORY P RN Administration SHORTNESS OF [place] TH Atorvastatin Calci um 40 mg 09/26/20 21:00 09/27/20 20:44 Atorvastatin 40 Mg Tablet PO 40 mg BEDTIME HARLAN Administration Bumetanide 2 mg 09/26/20 09:00 09/27/20 10:18 Bumetanide 1 Mg Tablet PO Not Given DAILY HARLAN Carbidopa/Levodopa 1 each 09/23/20 09:00 09/27/20 17:10 Carbidopa-Levodo pa 10-100 Mg Table t PO 1 each BID HARLAN Administration Ferrous Gluconate 324 mg 09/23/20 09:00 09/27/20 17:09 Ferrous Gluconat e 324 Mg Tablet PO 324 mg BID HARLAN Administration Fluoxetine HCl 10 mg 09/23/20 09:00 09/27/20 10:19 Fluoxetine 10 Mg Capsule PO Not Given DAILY HARLAN Isosorbide Mononit rate 30 mg 09/23/20 09:00 09/27/20 10:19 Isosorbide [place] itrate Er 30 Mg Ta blet PO Not Given DAILY HARLAN Levothyroxine Sodi um 50 mcg 09/23/20 09:00 09/27/20 10:19 Levothyroxine 50 Mcg Tablet PO Not Given DAILY HARLAN Metoprolol Tartrat e 25 mg 09/24/20 18:00 09/27/20 17:10 Metoprolol Tartr ate 25 Mg Tablet PO 25 mg BID HARLAN Administration Pantoprazole Sodiu m 40 mg 09/23/20 09:00 09/27/20 17:[address] 40 Mg Tablet PO 40 mg BID HARLAN Administration Polyethylene Glyco l 17 gm 09/23/20 09:00 09/27/20 10:20 Polyethylene Gly col 3350 Pkt 17 Gm PO Not Given DAILY HARLAN Potassium Chloride 30 meq 09/24/20 18:00 09/27/20 17:10 Potassium Chlori de Er 20 Meq Table t PO 30 meq BID HARLAN Administration Senna/Docusate Sod ium 2 tab 09/23/20 09:00 09/27/20 17:10 Sennosides-Docus ate Tablet PO 2 tab BID HARLAN Administration Warfarin Sodium 4 mg 09/26/20 14:00 09/27/20 15:27 Warfarin 2 Mg Ta blet PO 4 mg DAILY@1400 HARLAN Administration Vitals/I&O/Wt Last Vital Signs Temp 96.6 F L 09/28/20 07:00 Pulse 75 09/28/20 07:48 Resp 22 H 09/28/20 07:40 BP 120/34 09/28/20 07:00 Pulse Ox 97 09/28/20 07:40 09/27/20 09/28/20 09/28/20 22:59 06:59 14:59 Intake Total 240 / 720 100 / 820 Output Total 0 / 0 250 / 250 Balance 240 / 720 -150 / 570 Weight last 48 hrs Weight 63.503 kg Weight 66.315 kg Physical Exam Const: COMMON NORMALS: no acute distress, patient oriented x3 and alert GENERAL APPEARANCE: cooperative, comfortable and frail appearing ORIENTATION/CONSCIOUSNESS: Yes awake OTHER: -fatigues easily and spends most of the day sleeping, alert and easy to engage in conversation during my encounter HENMT: COMMON NORMALS: normocephalic, atraumatic, hearing grossly normal bilaterally and moist oral mucous membranes HEAD & SCALP: normocephalic and atraumatic Eye: COMMON NORMALS: Equal, round and reactive pupils present, EOMs intact bilaterally and conjunctivae normal CONJUNCTIVA: Yes conjunctivae normal PUPIL: Yes Equal, round and reactive pupils present Neck/C-Spine: COMMON NORMALS: full ROM GENERAL: Yes normal visual inspect ion and Yes trachea midline Chest: OTHER: -healed sternotomy scar Resp: COMMON NORMALS: normal respiratory effort, No retractions and No use of accessory muscles EFFORT & INSPECTION: Yes able to speak in complete sentences, Yes symmetric chest movement and Yes tachypneic AUSCULTATION: diminished lung sounds OTHER: -on BiPAP Cardio: COMMON NORMALS: regular rate, regular rhythm, S1 normal heart sound present, S2 normal heart sound present and No murmurs present (Cardio) RATE: regular rate RHYTHM: regular rhythm HEART SOUNDS: S1 normal heart sound present, S2 normal heart sound present and Clicking heart sound present GI: COMMON NORMALS: Normal to inspection, nondistended, normoactive bowel sounds present, Soft to palpation and non-tender PALPATION: Yes Soft to palpation : BLADDER/KIDNEY EXAM: Yes catheter in place Catheter type (Female): urethral Extremity: COMMON NORMALS: normal to inspection, full ROM, no clubbing, cyanosis or edema and no pedal edema NARRATIVE EXTREMITY EXAM: -peripheral edema resolved Neuro: COMMON NORMALS: patient oriented x3, moves all extremities, no focal motor deficits and no sensory deficits noted SENSORIUM/ORIENTATION: Yes alert GAIT: Yes Shuffling gait present MOTOR EXAM: Tremors during motor activity present resting tremor Psych: COMMON NORMALS: mental status grossly normal, Normal thought process present, cooperative, normal affect and speech normal SPEECH: Yes normal speech THOUGHT PROCESS: Normal thought process present Skin: COMMON NORMALS: no jaundice, no petechiae and no mottling NARRATIVE SKIN EXAM: -chronic venous stasis dermatitis Urinary Catheter Management^: Lam: Cath Placed During This Visit: yes, but has since been removed by the nurse Reason for Continuing Indwelling Catheter: Decision to DC Catheter Urinary Catheter Date of Insertion: 09/22/20 Urinary Catheter Time of Insertion: 15:01 Date Urinary Catheter Removed: 09/26/20 Time Urinary Catheter Discontinued: 12:30 Data : 09/27/20 03:09 09/27/20 03:09 A&P Assessment and plan (1) Acute exacerbation of CHF (congestive heart failure): -acute exacerbation of diastolic CHF as evidenced by lower extremity edema, hypoxia with increased oxygen requirement, BNP elevation-1778 -Echo (03/2020): EF=60-65%, possible septal hypokinesis, mechanical prosthetic mitral valve (well seated), trace AR, mild to moderate TR, severe pulmonary HTN (68) -CXR reported as unremarkable -off IV diuresis; so far has diuresed 2.6 L; switched to oral diuretics as better compensated -Lam catheter in place; assess daily for removal -daily weights, monitor Is & Os -telemetry monitoring -continue to monitor vital signs -follows up with Dr. Mays Status: Resolved Qualifiers: Heart failure type: diastolic Qualified Code(s): I50.33 - Acute on chronic diastolic (congestive) heart failure (2) Chronic hypercapnic respiratory failure: -acute on chronic hypercapnia respiratory failure -noted hypercapnia on multiple ABGs -BiPAP qhs; request home Trilogy unit; as she has indicated on multiple occasions once she is off BiPAP for long intervals she develops increased somnolence, confusion and overall depressed responsiveness due to CO2 retention. Will need Trilogy set up for home use as quickly as possible. -continue to monitor respiratory status closely -rapid COVID-19 negative -oxygen dependent at baseline, 2 L NC Status: Acute (3) Anemia: -baseline Hg around 9-10 -continue to monitor H/H -continue Coumadin; Hg stable -prior GI workup in 2017 with EGD showing small hiatal hernia and Schzatki's ring; colonoscopy showing internal hemorrhoids and small polyp. Incomplete small bowel endoscopy but whatever portion was completed did not reveal bleeding source -continue iron supplementation, bowel regimen; has been responsive to IV iron supplementation in the past -follows up with Dr. Bullock Status: Chronic Qualifiers: Anemia type: iron deficiency Iron deficiency anemia type: chronic blood loss Qualified Code(s): D50.0 - Iron deficiency anemia secondary to blood loss (chronic) (4) Parkinson disease: -fall, aspiration precautions -continue meds -follows up with Dr. Rainey in [place] Status: Chronic (5) Hypothyroidism: -continue levothyroxine Status: Chronic Qualifiers: Hypothyroidism type: unspecified Qualified Code(s): E03.9 - Hypothyroidism, unspecified (6) Weakness: -seems to be a progressive issue, likely multifactorial given underlying comorbidities including Parkinson disease and decreasing mobility. I suspect that some degree of this will be her new baseline. 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 Time Spent in Patient Care: 16 - 35 minutes (>than 50% of time spent in counselling and/or direct pt care on unit) . Coding Level of Care Code Acute Political Science Faculty Member for g Fwd Exam Comprehensive Diagnoses Acute exacerbation of CHF (congestive heart failure) I50.33 Heart failure type: diastolic Chronic hypercapnic respiratory failure J96.12 Anemia D50.0 Anemia type: iron deficiency Iron deficiency anemia type: chronic blood loss Parkinson disease G20 Hypothyroidism E03.9 Hypothyroidism type: unspecified Weakness R53.1
[2020-09-28] MEDS: isosorbide mononitrate ER 30 mg Tablet PO (09:14)
[2020-09-28] MEDS: bumetanide 1 mg Tablet 2 MG PO (09:14)
[2020-09-28] MEDS: pantoprazole DR 40 mg Tablet PO ×2 (09:14→18:44)
[2020-09-28] MEDS: metoprolol tartrate 25 mg Tablet PO ×2 (09:14→18:44)
[2020-09-28] MEDS: levothyroxine 50 mcg Tablet PO (09:14)
[2020-09-28] MEDS: sennosides-docusate Tablet 2 TAB PO ×2 (09:14→18:44)
[2020-09-28] MEDS: fluoxetine 10 mg Capsule PO (09:14)
[2020-09-28] MEDS: polyethylene glycol 3350 Pkt 17 gm PO (09:15)
[2020-09-28] MEDS: potassium chloride ER 20 mEq Tablet 30 MEQ PO ×2 (09:18→18:44)
[2020-09-28] MEDS: ferrous gluconate 324 mg Tablet PO ×2 (09:18→18:44)
--- NOTE | 2020-09-28 11:14 | PC.NURSE ---
patient woke up to take morning medications, was on bipap and changed to nasal cannula to get bathed and take medication. patient responds and obeys commands but drowsy. patient placed back on bipap after bath. dr tidwell rounded and the patient asked to be taken off bipap and placed back on nasal cannula. patient is now resting in bed on nasal cannula. call light within reach.
--- NOTE | 2020-09-28 13:43 | PC.NURSE ---
patient ate about 25% of her meal and 120 ml of water. patient tolerated well and fed herself with set up. at this time she was more alert than she had been this morning. call light within reach.
[2020-09-28] MEDS: warfarin 2 mg Tablet 4 MG PO (14:28)
--- NOTE | 2020-09-28 15:26 | PC.NURSE ---
pt sleeping and bipap on at 1526
[2020-09-28] MEDS: atorvastatin 40 mg Tablet PO (19:26)
--- NOTE | 2020-09-28 19:33 | PC.NURSE ---
Patient is A & O x4 at this time. Bed alarm is set. Patient has been oriented to call light and educated not to get up without assistance and verbalized understanding.
--- NOTE | 2020-09-28 23:12 | PC.NURSE ---
Patient was offered to go to the bathroom at 2044 as well as at this time. Patient denied needed to go to the bathroom both times. Bed linen is currently clean and dry. Will monitor.
[2020-09-29] VITALS (11 sets, daily range): BP systolic 97–143; BP diastolic 35–98; PULSE 54–79; RESP 12–25; TEMP 35.9–36.6; O2SAT 95–100
--- NOTE | 2020-09-29 00:53 | PC.NURSE ---
Patient was assisted to bedside commode and back to bed with 2 assist.
--- NOTE | 2020-09-29 04:16 | PC.NURSE ---
Patient was offered to get up to bathroom and stated she did not need to go. Bed linen is clean and dry at this time.
--- NOTE | 2020-09-29 08:43 | PC.NURSE ---
put pt on bipap at 0844 02 at 100%
[2020-09-29] MEDS: potassium chloride ER 20 mEq Tablet 30 MEQ PO ×2 (08:58→17:08)
[2020-09-29] MEDS: levothyroxine 50 mcg Tablet PO (08:58)
[2020-09-29] MEDS: isosorbide mononitrate ER 30 mg Tablet PO (08:58)
[2020-09-29] MEDS: bumetanide 1 mg Tablet 2 MG PO (08:58)
[2020-09-29] MEDS: sennosides-docusate Tablet 2 TAB PO ×2 (08:58→17:08)
[2020-09-29] MEDS: ferrous gluconate 324 mg Tablet PO ×2 (08:58→17:08)
[2020-09-29] MEDS: metoprolol tartrate 25 mg Tablet PO ×2 (08:58→17:09)
[2020-09-29] MEDS: polyethylene glycol 3350 Pkt 17 gm PO (08:58)
[2020-09-29] MEDS: pantoprazole DR 40 mg Tablet PO ×2 (08:58→17:09)
[2020-09-29] MEDS: fluoxetine 10 mg Capsule PO (08:58)
--- NOTE | 2020-09-29 09:05 | P.DS_ITS ---
Discharge Providers Date of Admission: 09/22/20 16:26 Date of Discharge: September 29, 2020 Attending Provider at Admission: Vanessa Cordova MD Attending Provider at Discharge: Vanessa Cordova MD Consults: None Primary Care Provider: Michael Hampton DO Diagnoses at Discharge Discharge Diagnosis (1) Acute exacerbation of CHF (congestive heart failure): Status: Resolved Permanent problem details: -acute exacerbation of diastolic CHF as evidenced by lower extremity edema, hypoxia with increased oxygen requirement, BNP elevation-1778 -Echo (03/2020): EF=60-65%, possible septal hypokinesis, mechanical prosthetic mitral valve (well seated), trace AR, mild to moderate TR, severe pulmonary HTN (68) -CXR reported as unremarkable -off IV diuresis; so far has diuresed 2.6 L; switched to oral diuretics as better compensated -Lam catheter in place; assess daily for removal -daily weights, monitor Is & Os -telemetry monitoring -continue to monitor vital signs -follows up with Dr. Mays Qualifiers: Heart failure type: diastolic Qualified Code(s): I50.33 - Acute on chronic diastolic (congestive) heart failure (2) Chronic hypercapnic respiratory failure: Status: Acute Permanent problem details: -acute on chronic hypercapnia respiratory failure -noted hypercapnia on multiple ABGs -BiPAP qhs; home Trilogy unit requested and to be set up today; as she has indicated on multiple occasions once she is off BiPAP for long intervals she develops increased somnolence, confusion and overall depressed responsiveness due to CO2 retention. Will need Trilogy set up for home use as quickly as possible. -continue to monitor respiratory status closely -rapid COVID-19 negative -oxygen dependent at baseline, 2 L NC (3) Anemia: Status: Chronic Permanent problem details: -baseline Hg around 9-10 -continue to monitor H/H -continue Coumadin; Hg stable -prior GI workup in 2017 with EGD showing small hiatal hernia and Schzatki's ring; colonoscopy showing internal hemorrhoids and small polyp. Incomplete small bowel endoscopy but whatever portion was completed did not reveal bleeding source -continue iron supplementation, bowel regimen; has been responsive to IV iron supplementation in the past -follows up with Dr. Bullock Qualifiers: Anemia type: iron deficiency Iron deficiency anemia type: chronic blood loss Qualified Code(s): D50.0 - Iron deficiency anemia secondary to blood loss (chronic) (4) Parkinson disease: Status: Chronic Permanent problem details: -fall, aspiration precautions -continue meds -follows up with Dr. Rainey in [place] (5) Hypothyroidism: Status: Chronic Permanent problem details: -continue levothyroxine Qualifiers: Hypothyroidism type: unspecified Qualified Code(s): E03.9 - Hypothyroidism, unspecified (6) Weakness: Status: Acute Permanent problem details: -seems to be a progressive issue, likely multifactorial given underlying comorbidities including Parkinson disease and decreasing mobility. I suspect that some degree of this will be her new baseline. 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 She did have a Lam catheter placed in the ER for accurate ins and outs with need for aggressive diuresis. She has responded well to treatment and is currently well compensated clinically. She has been transitioned to oral diuretics. Lam catheter has been discontinued and she has been able to void independently though has had some episodes of incontinence. She has a known history of chronic hypercapnic respiratory failure and is oxygen dependent at baseline. She has been noted to have increased somnolence and confusion whenever she has CO2 accumulation so has been on BiPAP primarily at night with noted improvement. She does use 2 L nasal cannula at her baseline and CPAP at night. CPAP is no longer sufficient to provide adequate ventilation in light of significant hypercapnic respiratory failure so requested trilogy to be set up at home. She is at risk for readmission but hopefully with trilogy this risk can be diminished. She appears to have good support at home and does have home health and in-home services, for which should continue on her return home. Physical Exam Const: COMMON NORMALS: no acute distress, patient oriented x3 and alert (much more alert today than previous occasions) GENERAL APPEARANCE: cooperative, comfortable and frail appearing ORIENTATION/CONSCIOUSNESS: Yes awake OTHER: -fatigues easily and spends most of the day sleeping, alert and easy to engage in conversation during my encounter HENMT: COMMON NORMALS: normocephalic, atraumatic, hearing grossly normal bilaterally and moist oral mucous membranes HEAD & SCALP: normocephalic and atraumatic Eye: COMMON NORMALS: Equal, round and reactive pupils present, EOMs intact bilaterally and conjunctivae normal CONJUNCTIVA: Yes conjunctivae normal PUPIL: Yes Equal, round and reactive pupils present Neck/C-Spine: COMMON NORMALS: full ROM GENERAL: Yes normal visual inspection and Yes trachea midline Chest: OTHER: -healed sternotomy scar Resp: COMMON NORMALS: normal respiratory effort, No retractions and No use of accessory muscles EFFORT & INSPECTION: Yes able to speak in complete sentences, Yes symmetric chest movement and Yes tachypneic AUSCULTATION: diminished lung sounds OTHER: -on BiPAP Cardio: COMMON NORMALS: regular rate, regular rhythm, S1 normal heart sound present, S2 normal heart sound present and No murmurs present (Cardio) RATE: regular rate RHYTHM: regular rhythm HEART SOUNDS: S1 normal heart sound present, S2 normal heart sound present and Clicking heart sound present GI: COMMON NORMALS: Normal to inspection, nondistended, normoactive bowel sounds present, Soft to palpation and non-tender PALPATION: Yes Soft to palpation : BLADDER/KIDNEY EXAM: Yes catheter in place Catheter type (Female): urethral Extremity: COMMON NORMALS: normal to inspection, full ROM, no clubbing, cyanosis or edema and no pedal edema NARRATIVE EXTREMITY EXAM: -peripheral edema resolved Neuro: COMMON NORMALS: patient oriented x3, moves all extremities, no focal motor deficits and no sensory deficits noted SENSORIUM/ORIENTATION: Yes alert (much more alert today than previous occasions) GAIT: Yes Shuffling gait present MOTOR EXAM: Tremors during motor activity present resting tremor Psych: COMMON NORMALS: mental status grossly normal, Normal thought process present, cooperative, normal affect and speech normal SPEECH: Yes normal speech THOUGHT PROCESS: Normal thought process present Skin: COMMON NORMALS: no jaundice, no petechiae and no mottling NARRATIVE SKIN EXAM: -chronic venous stasis dermatitis Urinary Catheter Management^: Lam: Cath Placed During This Visit: yes, but has since been removed by the nurse Reason for Continuing Indwelling Catheter: Decision to DC Catheter Urinary Catheter Date of Insertion: 09/22/20 Urinary Catheter Time of Insertion: 15:01 Date Urinary Catheter Removed: 09/26/20 Time Urinary Catheter Discontinued: 12:30 Discharge Data Data Completed and Pending: Completed Studies During Hospitalization Category Date Time Status XR chest 1V mary ble [id number] Stat Exams 09/22/20 11:33 Completed Vitals: Last Vital Signs Temp 96.6 F L 09/29/20 06:47 Pulse 54 L 09/29/20 06:47 Resp 17 09/29/20 06:47 BP 143/51 09/29/20 06:47 Pulse Ox 97 09/29/20 06:47 Discharge Plan Discharge Patient Disposition: Home Health Service Condition: Stable Prescriptions: Continued polyethylene glycol 3350 [Miralax] 17 gram/dose powder 17 gm PO DAILY PRN (Reason: Constipation) RF: 0 fluoxetine 10 mg capsule 10 mg PO DAILY RF: 0 rosuvastatin [Crestor] 10 mg tablet 10 mg PO DAILY RF: 0 carbidopa-levodopa 10-100 mg tablet,disintegrating 1 tab PO BID RF: 0 levothyroxine 50 mcg capsule 50 mcg PO DAILY RF: 0 warfarin 2 mg tablet 4 mg PO DAILY@1400 Qty: 20 RF: 0 Hold Instructions: Resume on 04/27/20. RECHECK INR ON MONDAY, dosing based on repeat INR aspirin [Adult Aspirin Regimen] 81 mg tablet,delayed release (DR/EC) 81 mg PO DAILY RF: 0 bumetanide 2 mg tablet 2 mg PO DAILY Qty: 90 RF: 3 tolterodine 2 mg tablet 2 mg PO BID RF: 0 Dexilant 30 mg capsule,biphase delayed releas 30 mg PO DAILY RF: 0 sennosides-docusate sodium 8.6-50 mg Tablet 2 tab PO BID Qty: 120 RF: 0 ferrous gluconate 324 mg (37.5 mg iron) tablet 324 mg PO BID Qty: 60 RF: 0 Hold Instructions: taking iron infusions isosorbide mononitrate 60 mg tablet extended release 24 hr 30 mg PO DAILY Qty: 30 RF: 0 Changed metoprolol tartrate 25 mg tablet 25 mg PO BID Qty: 90 RF: 3 potassium chloride [Klor-Con 10] 10 mEq tablet extended release 20 meq PO BID Qty: 0 RF: 0 Discharge Orders: Discharge Order (Routine); Ordered 09/29/20 Ordered By: Vanessa Cordova Other Ambulatory Orders: DME: Non-Invasive Vent (Order) Location: None Selected Ordered By: Vanessa Cordova Referrals: Michael Hampton DO [Primary Care Provider] - 4-7 days Discharge Diet: Cardiac Discharge Activity: Increase activity as tolerated, Oxygen as instructed and Cpap/Bipap as instructed Activity Restrictions/Additional Instructions: -You will be set up with Trilogy machine that you will need to use primarily at night or whenever you are sleeping to prevent accumulation of carbon dioxide. Discharge Attestations Time Spent in Discharge Care*: greater than 30 min Specific Discharge Activities: educating patient, discussing with corrections caseworker/social workers/dc planners, documenting/other paperwork and evaluating patient/reviewing data Status at Discharge: Cognitive status at discharge: cognitively intact , Behavioral status at discharge: cooperative , Functional status at discharge: other assisted ambulation Overall status at discharge: patient is progressing back to baseline Quality Metrics Clinical Quality Measures During this hospital stay, did patient experience: None Coding Level of Care Code Acute Machine Operator Hop Picker for Chg Fwd Exam Comprehensive Diagnoses Acute exacerbation of CHF (congestive heart failure) I50.33 Heart failure type: diastolic Chronic hypercapnic respiratory failure J96.12 Anemia D50.0 Anemia type: iron deficiency Iron deficiency anemia type: chronic blood loss Parkinson disease G20 Hypothyroidism E03.9 Hypothyroidism type: unspecified Weakness R53.1
--- NOTE | 2020-09-29 09:20 | PC.NURSE ---
patient resting in bed at this time with bipap on. patient took morning medications well. call light within reach.
[2020-09-29] MEDS: ipratropium-albuterol 3 mL Neb INHALATION (09:55)
--- NOTE | 2020-09-29 14:04 | PC.NURSE ---
put bipap on pt at 1400
[2020-09-29] MEDS: warfarin 2 mg Tablet 4 MG PO (14:48)
--- NOTE | 2020-09-29 17:30 | PC.NURSE ---
discharge instructions given to patient, daughter, and . all verbalized an understanding and all questions answered at this time. iv removed, tip intact. patient dressed and in wheelchair. patient transported to private vehicle.
== END 2020-09-29 17:30 | disposition home health service (06) | DRG 291 ==
LOC: ER 11:22 → CSU 18:58
PROVIDERS: Admitting Provider Family Medicine; Emergency Provider Emergency Medicine; PCP Family Medicine; Visit Provider Family Medicine
DX: I13.0 Hypertensive heart and chronic kidney disease with heart failure and stage 1 through stage 4 chronic kidney disease, or unspecified chronic kidney disease (principal); I50.33 Acute on chronic diastolic (congestive) heart failure; J96.22 Acute and chronic respiratory failure with hypercapnia; I48.20 Chronic atrial fibrillation, unspecified; N18.2 Chronic kidney disease, stage 2 (mild); Z95.3 Presence of xenogenic heart valve; Z79.01 Long term (current) use of anticoagulants; I25.10 Atherosclerotic heart disease of native coronary artery without angina pectoris; Z95.5 Presence of coronary angioplasty implant and graft; J44.9 Chronic obstructive pulmonary disease, unspecified; F32.9 Major depressive disorder, single episode, unspecified; K21.9 Gastro-esophageal reflux disease without esophagitis; E03.9 Hypothyroidism, unspecified; D50.0 Iron deficiency anemia secondary to blood loss (chronic); G47.33 Obstructive sleep apnea (adult) (pediatric); G20 Parkinson's disease; Z79.899 Other long term (current) drug therapy; K22.2 Esophageal obstruction; Z96.652 Presence of left artificial knee joint; Z87.891 Personal history of nicotine dependence; R53.1 Weakness; I07.1 Rheumatic tricuspid insufficiency; I27.20 Pulmonary hypertension, unspecified
CPT/HCPCS: 12345; 36415; 36600; 51702; 71045; 80053; 81001; 82803; 83605; 83735; 83880; 84132; 84484; 85025; 85610; 87426; 93005; 94640; 94660; 94664; 97110; 97161; 97165; 97530; 97535; 99282; J3480; J3490

== ENCOUNTER 2020-10-24 17:12 | Emergency (ER) | payer MEDICARE, MEDICAID, SELFPAY ==
[2020-10-24 17:22] VITALS: BP 150/65; PULSE 60; RESP 18; TEMP 36.8; O2SAT 95; BMI 27.7
[2020-10-24 17:25] VITALS: BP 126/47; PULSE 61; RESP 16; TEMP 36.1; O2SAT 91
--- NOTE | 2020-10-24 17:39 | XRR_ITS ---
PROCEDURE INFORMATION: Exam: XR Lumbosacral Spine, 2 or 3 Views Exam date and time: 10/24/2020 5:39 PM Age: 80 years old Clinical indication: Injury or trauma; Fall; Blunt trauma (contusions or hematomas) TECHNIQUE: Imaging protocol: XR of the lumbosacral spine, 2 or 3 views. COMPARISON: CT hip RT wo con* [id number] 09/09/2020 8:19 PM FINDINGS: Bones/joints: Mild leftward curvature. Visualization of the endplates is limited in L1 and L2 on the lateral view due to the scoliosis. No definite compression fracture visualized. Soft tissues: Unremarkable. Gastrointestinal tract: Moderate stool throughout the colon. Vasculature: Dense abdominal aortic calcifications. XR/XR lumbar spine 2-3V* [id number] IMPRESSION: No acute finding.
[2020-10-24 17:55] VITALS: BP 126/47; PULSE 64; RESP 18; O2SAT 90
--- NOTE | 2020-10-24 18:48 | CTR_ITS ---
PROCEDURE INFORMATION: Exam: CT Cervical Spine Without Contrast Exam date and time: 10/24/2020 8:01 PM Age: 80 years old Clinical indication: Injury or trauma; Fall; Blunt trauma; Patient HX: Fell 9 days ago denies loc - has forehead hematoma C/O neck pain TECHNIQUE: Imaging protocol: Computed tomography images of the cervical spine without contrast. Radiation optimization: All CT scans at this facility use at least one of these dose optimization techniques: automated exposure control; mA and/or kV adjustment per patient size (includes targeted exams where dose is matched to clinical indication); or iterative reconstruction. COMPARISON: CT cervical spin wo con* [id number] 03/13/2020 2:32 PM RADIATION DOSE METRICS: Total DLP (mGy-cm): 329.83 FINDINGS: Bones/joints: The vertebral body stature is maintained. The facets are intact with degenerative changes, asymmetrically prominent on the left. Discs/Spinal canal/Neural foramina: Disc space narrowing at C2-C3, C4-C5, C5-C6 and C6-C7. Degenerative endplate changes at C5-C6 and C6-C7. Bilateral bony foraminal stenosis at C4-C5, C5-C6, and on the left at C6-C7. Thyroid: 1.1 cm hypodense left thyroid nodule. No follow-up is recommended. Lungs: Lung apices are normal. Soft tissues: Unremarkable. CT/CT cervical spin wo con* [id number] IMPRESSION: 1. No fracture or acute finding. COMMENTS: Consistent with the [place] [employer]'s Incidental Findings Committee white paper (J Am Malinda Radiol 2015): In patients aged 35 years and older with an incidental thyroid nodule equal to or greater than 1.[address], MRI or extrathyroidal US, further evaluation with dedicated thyroid US is recommended for patients with normal life expectancy and without comorbidities. For smaller nodules without suspicious features, no further evaluation or follow up is recommended. Radiation Dose CTDIVOL = (mGy): DLP = 329.83 (mGy-cm)
--- NOTE | 2020-10-24 18:48 | CTR_ITS ---
PROCEDURE INFORMATION: Exam: CT Head Without Contrast Exam date and time: 10/24/2020 8:01 PM Age: 80 years old Clinical indication: Injury or trauma; Fall; Blunt trauma (contusions or hematomas); Without loss of consciousness; Patient HX: Fell 9 days ago denies loc - has forehead hematoma; Additional info: Fall/injury TECHNIQUE: Imaging protocol: Computed tomography of the head without contrast. Radiation optimization: All CT scans at this facility use at least one of these dose optimization techniques: automated exposure control; mA and/or kV adjustment per patient size (includes targeted exams where dose is matched to clinical indication); or iterative reconstruction. COMPARISON: CT head wo con* [id number] 09/09/2020 8:15 PM RADIATION DOSE METRICS: Total DLP (mGy-cm): 1568.53 FINDINGS: Brain: Normal. No hemorrhage. Unremarkable white matter. No mass effect. Cerebral ventricles: No ventriculomegaly. Bones/joints: Unremarkable. No acute fracture. Paranasal sinuses: Visualized sinuses are unremarkable. No fluid levels. Mastoid air cells: Stable small left mastoid effusion. The right mastoid is clear. Orbital cavity: Prior cataract surgery. Soft tissues: Left frontal scalp hematoma. CT/CT head wo con* [id number] IMPRESSION: 1. No acute intracranial abnormality. Radiation Dose CTDIVOL = (mGy): DLP = 1568.53 (mGy-cm)
[2020-10-24 20:25] VITALS: BP 128/62; PULSE 73; RESP 16
--- NOTE | 2020-10-24 21:46 | XRR_ITS ---
PROCEDURE INFORMATION: Exam: XR Thoracic Spine, 3 Views Exam date and time: 10/24/2020 10:04 PM Age: 80 years old Clinical indication: Injury or trauma; Fall; Blunt trauma (contusions or hematomas) TECHNIQUE: Imaging protocol: XR of the thoracic spine, 3 views. COMPARISON: No relevant prior studies available. FINDINGS: Bones/joints: Sternotomy changes. Leftward thoracolumbar curvature and kyphosis. Multilevel degenerative endplate changes. No compression fracture identified. Soft tissues: Unremarkable. XR/XR thoracic spine 3V* [id number] IMPRESSION: No acute finding.
[2020-10-24 21:51] VITALS: BP 128/62; PULSE 68; RESP 18; O2SAT 94
--- NOTE | 2020-10-24 21:52 | ECG_ITS ---
[facility] Test Date: 2020-10-24 Pat Name: Iris Garcia Department: Room: Gender: Female Spray Gun Striper: : 1940 Requested By: Filippo العلي Order Number: [id number] Krupa MD: Cas Galvez M.D. Measurements Intervals [place] Rate: 57 P: MD: QRS: 87 QRSD: 99 T: 79 QT: 452 QTc: 441 Interpretive Statements ATRIAL FIBRILLATION WITH SLOW VENTRICULAR RESPONSE MODERATE ST DEPRESSION [0.05+ mV ST DEPRESSION] Compared to ECG 09/22/2020 18:18:19 ST (T wave) deviation now present Supraventricular tachycardia no longer present T-wave abnormality no longer present Electronically Signed On 10-25-2020 11:00:02 BIOINFORMATICS RESEARCH TECHNICIAN by Cas Galvez M.D. [id number]
--- NOTE | 2020-10-24 22:08 | ED_ITS ---
HPI - Fall General: Chief Complaint: Fall Stated Complaint: HEMATOMA TO FOREHEAD S/P FALL Time Seen by Provider: 10/24/20 21:39 History of Present Illness: HPI Narrative: Patient arrived via ambulance complaints about back pain and hematoma to head after fall 9 days ago denies any other problem complaint: fall Onset (ago): day(s) Fall from: standing Fall witnessed: yes, by family Place fall occurred: home Loss of consciousness: None Prolonged down time: no Symptoms prior to fall: none Context: tripped/slipped Severity: mild Quality: aching Associated symptoms-after fall: Reports no associated symptoms; Denies abdominal pain, chest pain or headache(s) Review of Systems Const: Denies: fever(s), chills or body aches Eyes: Denies: change in vision or blurry vision ENMT: Denies: throat pain or nasal congestion Card: Denies: chest pain or dyspnea on exertion Resp: Denies: dyspnea, productive cough or non-productive cough GI: Denies: abdominal pain, nausea or vomiting Musc: Reports: back pain (Left side lower back); Denies: extremity pain Skin/Breast: Reports: other (Bruising to forehead and face); Denies: rash Neuro: Denies: headache(s) Psych: Denies: anxiety or depression Jesus Alberto/Lymph: Denies: easy bruising PFSH ED PFSH: Medical History (Updated 09/30/20 @ 00:00 by ) Afib Anemia -baseline Hg around 9-10 -continue to monitor H/H -continue Coumadin; Hg stable -prior GI workup in 2017 with EGD showing small hiatal hernia and Schzatki's ring; colonoscopy showing internal hemorrhoids and small polyp. Incomplete small bowel endoscopy but whatever portion was completed did not reveal bleeding source -continue iron supplementation, bowel regimen; has been responsive to IV iron supplementation in the past -follows up with Dr. Bullock CAD (coronary artery disease) Chronic anticoagulation Due to mechanical mitral valve; coumadin Chronic hypercapnic respiratory failure -acute on chronic hypercapnia respiratory failure -noted hypercapnia on multiple ABGs -BiPAP qhs; home Trilogy unit requested and to be set up today; as she has indicated on multiple occasions once she is off BiPAP for long intervals she develops increased somnolence, confusion and overall depressed responsiveness due to CO2 retention. Will need Trilogy set up for home use as quickly as possible. -continue to monitor respiratory status closely -rapid COVID-19 negative -oxygen dependent at baseline, 2 L NC COPD (chronic obstructive pulmonary disease) Depression On fluoxetine with good control Diastolic CHF GERD (gastroesophageal reflux disease) PPI HTN (hypertension) Hypothyroidism -continue levothyroxine Iron deficiency anemia Has required transfusion in past, last egd and colonoscopy ~2017 with diverticulosis and internal hemorrhoids, no clear source of bleeding SONYA (obstructive sleep apnea) Uses 2 L of oxygen at night does not use CPAP Parkinson disease -fall, aspiration precautions -continue meds -follows up with Dr. Rainey in [facility] Weakness -seems to be a progressive issue, likely multifactorial given underlying comorbidities including Parkinson disease and decreasing mobility. I suspect that some degree of this will be her new baseline. -fall precautions -PT/OT evaluations appreciated -spends much of her time at home sleeping per her own admission Surgical History History of bilateral tubal ligation History of cholecystectomy History of total knee arthroplasty Left Mitral valve replaced Mechanical, on coumadin Family History Mother CAD (coronary artery disease) Diabetes Other Hypertension Social History Smoking and tobacco status: former smoker Quit status (tobacco): has quit using tobacco Year quit tobacco: 1994 PPD x 15 Years Second hand smoke exposure: No Alcohol intake: never Caregiver/support person: Yes Household members: spouse and children Housing: House Marital status: Current occupational status: retired and disabled History of recent travel: No Current gender identity: Female Physical Exam Const: COMMON NORMALS: no acute distress, average body habitus and patient oriented x3 HENMT: COMMON NORMALS: normocephalic HEAD & SCALP: normal to inspection and normocephalic FACE & SINUS: normal facial exam Eye: COMMON NORMALS: conjunctivae normal GENERAL EYE: appearance normal, both eyes and all related structures CONJUNCTIVA: Yes conjunctivae normal Neck/C-Spine: COMMON NORMALS: no JVD Chest: COMMONS NORMALS: normal inspection of the chest Resp: COMMON NORMALS: normal respiratory effort and clear to auscultation bilaterally AUSCULTATION: clear to auscultation bilaterally Cardio: COMMON NORMALS: no JVD, regular rate and regular rhythm RATE: regular rate RHYTHM: regular rhythm GI: COMMON NORMALS: Normal to inspection, nondistended, normoactive bowel sounds present Back/Pelvis: THORACIC SPINE/UPPER BACK: Yes normal to inspection LUMBAR SPINE/LOWER BACK: Yes paraspinal muscle tenderness (Left side) Extremity: COMMON NORMALS: normal to inspection and full ROM Neuro: COMMON NORMALS: patient oriented x3 Skin: NARRATIVE SKIN EXAM: Large hematoma to the left side of the forehead right above the left eye Course Vital Signs: Vital signs: Vital Signs Temperature 97.0 F L 10/24/20 17:25 Pulse Rate 73 10/24/20 20:25 Respiratory Rate 16 10/24/20 20:25 Blood Pressure 128/62 10/24/20 20:25 Pulse Oximetry 90 10/24/20 17:55 Discharge Plan Discharge Prescriptions: No Action polyethylene glycol 3350 [Miralax] 17 gram/dose powder 17 gm PO DAILY PRN (Reason: Constipation) RF: 0 fluoxetine 10 mg capsule 10 mg PO DAILY RF: 0 rosuvastatin [Crestor] 10 mg tablet 10 mg PO DAILY RF: 0 carbidopa-levodopa 10-100 mg tablet,disintegrating 1 tab PO BID RF: 0 levothyroxine 50 mcg capsule 50 mcg PO DAILY RF: 0 aspirin [Adult Aspirin Regimen] 81 mg tablet,delayed release (DR/EC) 81 mg PO DAILY RF: 0 bumetanide 2 mg tablet 2 mg PO DAILY Qty: 90 RF: 3 tolterodine 2 mg tablet 2 mg PO BID RF: 0 warfarin 3 mg tablet 3 mg PO DIRECTED Qty: 60 RF: 1 warfarin 4 mg tablet 4 mg PO DIRECTED Qty: 60 RF: 1 Hold Instructions: Resume on 04/27/20. RECHECK INR ON MONDAY, dosing based on repeat INR Dexilant 30 mg capsule,biphase delayed releas 30 mg PO DAILY RF: 0 metoprolol tartrate 25 mg tablet 25 mg PO BID Qty: 90 RF: 3 Klor-Con 10 10 mEq tablet extended release 20 meq PO BID Qty: 0 RF: 0 sennosides-docusate sodium 8.6-50 mg Tablet 2 tab PO BID Qty: 120 RF: 0 ferrous gluconate 324 mg (37.5 mg iron) tablet 324 mg PO BID Qty: 60 RF: 0 Hold Instructions: taking iron infusions isosorbide mononitrate 60 mg tablet extended release 24 hr 30 mg PO DAILY Qty: 30 RF: 0 Coding Level of Care Code ED Elevator Constructor for Norma Yeh
[2020-10-24 22:09] LABS: Basophils % 0.6 %; Eosinophils # 0.2 10^3/uL (0.0-0.8); Eosinophils % 5.3 %; Hematocrit 29.2 % (37.0-47.0); Hemoglobin 8.5 g/dL (11.5-15.3); Lymphocytes # 0.9 10^3/uL (0.8-4.8); Lymphocytes % 25.3 %; Mean Corpuscular HGB Conc 29.1 g/dL (30.0-36.0); Mean Corpuscular Hemoglobin 29.1 pg (28.0-34.0); Mean Platelet Volume 9.2 fL (7.4-10.4); Monocytes # 0.3 10^3/uL (0.2-0.9); Monocytes % 9.4 %; Neutrophils # 2.14 10^3/uL (1.8-7.7); Neutrophils % 59.4 %; Nucleated Red Blood Cells % 0 %; Platelet Count 145 10^3/cmm (130-400); Red Blood Count 2.92 10^6/uL (4.1-5.3); Red Cell Distribution Width 14.1 % (12.1-15.1); White Blood Count 3.6 10^3/uL (4.0-10.0)
[2020-10-24 22:29] LABS: Blood Urea Nitrogen 20 mg/dL (8-23); Calcium 8.1 mg/dL (8.5-10.5); Chloride 99 mmol/L (98-107); Glucose 108 mg/dL (65-115); Osmolality Calculated 299 mOsm/kg (285-295); Sodium 143 mmol/L (136-145)
[2020-10-24 22:46] LABS: Carbon Dioxide 43 mmol/L (22-29)
== END 2020-10-24 22:44 | disposition home or self-care (01) ==
PROVIDERS: Emergency Medicine; Emergency Provider Nurse Practitioner Family; PCP Family Medicine
DX: M54.9 Dorsalgia, unspecified (principal); Z79.82 Long term (current) use of aspirin; Z79.01 Long term (current) use of anticoagulants; I48.91 Unspecified atrial fibrillation; I25.10 Atherosclerotic heart disease of native coronary artery without angina pectoris; J44.9 Chronic obstructive pulmonary disease, unspecified; I11.0 Hypertensive heart disease with heart failure; I50.30 Unspecified diastolic (congestive) heart failure; G20 Parkinson's disease; Z87.891 Personal history of nicotine dependence
CPT/HCPCS: 12345; 70450; 72072; 72100; 72125; 80048; 85025; 93005; 99282; 99283

== ENCOUNTER 2020-11-10 05:50 | Inpatient (IN) | payer MEDICARE, MEDICAID, SELFPAY ==
[2020-11-10] VITALS (54 sets, daily range): BP systolic 102–185; BP diastolic 33–82; PULSE 52–117; RESP 16–38; TEMP 36.1–37.3; O2SAT 80–100; BMI 28.3
--- NOTE | 2020-11-10 06:05 | XRR_ITS ---
PROCEDURE INFORMATION: Exam: XR Chest, 1 View Exam date and time: 11/10/2020 6:19 AM Age: 80 years old Clinical indication: Cough and dyspnea and shortness of breath; Prior surgery; Surgery type: Heart; Additional info: Dyspnea/cough TECHNIQUE: Imaging protocol: XR of the chest Views: 1 view. COMPARISON: CR XR chest 1V portable [id number] 09/22/2020 11:36 AM FINDINGS: Lungs: Mild interstitial prominence within the upper lobe on the right. Lungs are otherwise well aerated. Pleural space: Unremarkable. No pleural effusion. No pneumothorax. Heart/Mediastinum: Unremarkable. No cardiomegaly. Bones/joints: Prior sternotomy XR/XR chest 1V portable [id number] IMPRESSION: Mild interstitial prominence within the upper lobe on the right. Lungs are otherwise well aerated.
--- NOTE | 2020-11-10 06:05 | ECG_ITS ---
[facility] Test Date: 2020-11-10 Pat Name: Iris Garcia Department: Room: Gender: Female Passenger Train Braker: : 1940 Requested By: Emile Perla Order Number: [id number] Krupa MD: Santos Adorno M.D. Measurements Intervals [place] Rate: 67 P: CO: QRS: 23 QRSD: 114 T: -6 QT: 364 QTc: 384 Interpretive Statements ATRIAL FIBRILLATION MODERATE INTRAVENTRICULAR CONDUCTION DELAY [110+ ms QRS DURATION] NONSPECIFIC ST & T-WAVE ABNORMALITY ABNORMAL RHYTHM ECG Compared to ECG 10/24/2020 22:14:02 Intraventricular conduction delay now present T-wave abnormality now present ST (T wave) deviation no longer present Electronically Signed On 11-10-2020 21:34:58 NIGHT ASSISTANT by Santos Adorno M.D. [id number]
--- NOTE | 2020-11-10 06:12 | PC.NURSE ---
Patient states she choked while eating lunch yesterday at 1300 on turkey. Patient states since then she has not been able to swallow anything, anytime she tries it comes back up. Patient denies any shortness of breath or pain in her throat when swallowing. Patient given a few ounces of water per physician. Patient able to drink all liquid and keep it down at this time.
[2020-11-10 06:45] LABS: Basophils % 0.5 %; Eosinophils # 0.1 10^3/uL (0.0-0.8); Eosinophils % 2.1 %; Hematocrit 25.9 % (37.0-47.0); Hemoglobin 7.4 g/dL (11.5-15.3); Lymphocytes # 0.6 10^3/uL (0.8-4.8); Lymphocytes % 15.8 %; Mean Corpuscular HGB Conc 28.6 g/dL (30.0-36.0); Mean Corpuscular Hemoglobin 29.4 pg (28.0-34.0); Mean Corpuscular Volume 102.8 fL (81-99); Mean Platelet Volume 9.2 fL (7.4-10.4); Monocytes # 0.4 10^3/uL (0.2-0.9); Monocytes % 9.9 %; Neutrophils # 2.67 10^3/uL (1.8-7.7); Neutrophils % 71.4 %; Nucleated Red Blood Cells % 0 %; Platelet Count 152 10^3/cmm (130-400); Red Blood Count 2.52 10^6/uL (4.1-5.3); Red Cell Distribution Width 15.5 % (12.1-15.1); White Blood Count 3.7 10^3/uL (4.0-10.0)
--- NOTE | 2020-11-10 06:50 | W.ED.GENADLT ---
HPI - General Adult General: Chief complaint: Airway/Esophagus Foreign Body Stated complaint: THROAT ISSUES Time Seen by Provider: 11/10/20 05:55 History of Present Illness: HPI narrative: 80-year-old female brought into the emergency room by EMS. States yesterday she choked on some turkey a last night. she has not been able to swallow since that time, per her report. She denies any fevers or chills denies any shortness of breath or cough states she tries to eat or drink anything it gets stuck she denies any hematemesis or coffee-ground emesis. She has had this point multiple times in the past. She has a history of Parkinson's as well as atrial fibrillation, prosthetic mitral valve, congestive heart failure and generalized weakness. She has a history of a Schlotsky's ring as well. She still is living at home. Associated symptoms: Deny chest pain, dyspnea, nausea or vomiting Review of Systems Const: Denies: fever(s), chills or body aches Card: Denies: chest pain, edema, dyspnea on exertion or orthopnea Resp: Denies: dyspnea, productive cough or non-productive cough GI: Denies: abdominal pain, nausea, vomiting, hematemesis, coffee ground emesis, diarrhea, constipation, bloating, hematochezia or melena : Denies: flank pain, difficulty voiding, dysuria, urinary frequency or urinary urgency PFS ED PFSH: Medical History Afib Anemia -baseline Hg around 9-10 -continue to monitor H/H -continue Coumadin; Hg stable -prior GI workup in 2017 with EGD showing small hiatal hernia and Schzatki's ring; colonoscopy showing internal hemorrhoids and small polyp. Incomplete small bowel endoscopy but whatever portion was completed did not reveal bleeding source -continue iron supplementation, bowel regimen; has been responsive to IV iron supplementation in the past -follows up with Dr. Bullock CAD (coronary artery disease) Chronic anticoagulation Due to mechanical mitral valve; coumadin Chronic hypercapnic respiratory failure -acute on chronic hypercapnia respiratory failure -noted hypercapnia on multiple ABGs -BiPAP qhs; home Trilogy unit requested and to be set up today; as she has indicated on multiple occasions once she is off BiPAP for long intervals she develops increased somnolence, confusion and overall depressed responsiveness due to CO2 retention. Will need Trilogy set up for home use as quickly as possible. -continue to monitor respiratory status closely -rapid COVID-19 negative -oxygen dependent at baseline, 2 L NC COPD (chronic obstructive pulmonary disease) Depression On fluoxetine with good control Diastolic CHF GERD (gastroesophageal reflux disease) PPI HTN (hypertension) Hypothyroidism -continue levothyroxine Iron deficiency anemia Has required transfusion in past, last egd and colonoscopy ~2017 with diverticulosis and internal hemorrhoids, no clear source of bleeding SONYA (obstructive sleep apnea) Uses 2 L of oxygen at night does not use CPAP Parkinson disease -fall, aspiration precautions -continue meds -follows up with Dr. Rainey in [facility] ring Weakness -seems to be a progressive issue, likely multifactorial given underlying comorbidities including Parkinson disease and decreasing mobility. I suspect that some degree of this will be her new baseline. -fall precautions -PT/OT evaluations appreciated -spends much of her time at home sleeping per her own admission Surgical History History of bilateral tubal ligation History of cholecystectomy History of total knee arthroplasty Left Mitral valve replaced Mechanical, on coumadin Family History Mother CAD (coronary artery disease) Diabetes Other Hypertension Social History Smoking and tobacco status: former smoker Quit status (tobacco): has quit using tobacco Year quit tobacco: 1994 - PPD x 15 Years Second hand smoke exposure: No Alcohol intake: never Caregiver/support person: Yes Household members: spouse and children Housing: House Marital status: Current occupational status: retired and disabled History of recent travel: No Current gender identity: Female Physical Exam Const: COMMON NORMALS: no acute distress GENERAL APPEARANCE: cooperative and comfortable ORIENTATION/CONSCIOUSNESS: Yes oriented to person, Yes oriented to place and Yes oriented to time HENMT: COMMON NORMALS: normocephalic, atraumatic and hearing grossly normal bilaterally HEAD & SCALP: normocephalic and atraumatic Neck/C-Spine: COMMON NORMALS: no JVD Resp: COMMON NORMALS: normal respiratory effort, No retractions, No use of accessory muscles and clear to auscultation bilaterally AUSCULTATION: clear to auscultation bilaterally Cardio: COMMON NORMALS: no JVD RHYTHM: abnormal rhythm irregularly irregular HEART SOUNDS: Abnormal heart opening sounds (mechanical S1) GI: COMMON NORMALS: Soft to palpation and No hepatosplenomegaly present AUSCULTATION: Yes normoactive bowel sounds PALPATION: Yes Soft to palpation, No Tenderness to palpation present (GI), No Guarding due to palpation present (GI) and Yes No hepatosplenomegaly present Extremity: COMMON NORMALS: normal to inspection, capillary refill normal, no clubbing, cyanosis or edema, no calf tenderness and no pedal edema Neuro: SENSORIUM/ORIENTATION: Yes oriented to person, Yes oriented to place and Yes oriented to time Skin: COMMON NORMALS: no rashes or lesions noted GENERAL SKIN EXAM: no rashes or lesions noted Course Vital Signs: Vital signs: Vital Signs Temperature 98.0 F 11/10/20 05:53 Pulse Rate 67 11/10/20 06:38 Respiratory Rate 17 11/10/20 06:38 Blood Pressure 121/42 11/10/20 06:38 Pulse Oximetry 98 11/10/20 06:38 MDM - General Adult MDM Narrative: Medical decision making narrative: Patient is anemic significantly more so than her general baseline anemia which is chronic. She is also on Coumadin due to her prosthetic mitral valve. She will need evaluation for the GI bleed as well as the possibility of an esophageal foreign body. She has been chronically anemic has been seen seeing in the past. Will consult Dr. Prabhakar. Discussed with Dr. Saab he would like us to transfuse 1 unit. Because of her mechanical valve we will not be able to take her completely off of anticoagulation. Lab Data: Labs: Lab Results 11/10/20 11/10/20 11/10/20 Range/Units 06:30 06:30 06:30 WBC 3.7 L (4.0-10.0) 10^3/ uL RBC 2.52 L (4.1-5.3) 10^6/u L Hgb 7.4 L (11.5-15.3) g/dL Hct 25.9 L (37.0-47.0) % MCV 102.8 H (81-99) fL MCH 29.4 (28.0-34.0) pg MCHC 28.6 L (30.0-36.0) g/dL RDW 15.5 H (12.1-15.1) % Plt Count 152 (130-400) 10^3/c mm MPV 9.2 (7.4-10.4) fL Neut % (Auto) 71.4 % Lymph % (Auto) 15.8 % Carolina % (Auto) 9.9 % Eos % (Auto) 2.1 % Baso % (Auto) 0.5 % Neut # (Auto) 2.67 (1.8-7.7) 10^3/u L Lymph # (Auto) 0.6 L (0.8-4.8) 10^3/u L Carolina # (Auto) 0.4 (0.2-0.9) 10^3/u L Eos # (Auto) 0.1 (0.0-0.8) 10^3/u L Baso # (Auto) 0.0 (0.0-0.1) 10^3/u L Nucleated RBC % (a uto) 0 % Nucleated RBCs # 0.0 /100WBC PT (12.1-14.9) SECO NDS INR (0.8-1.2) Sodium 148 H (136-145) mmol/L Potassium 3.3 L (3.5-5.1) mmol/L Chloride 99 (98-107) mmol/L Carbon Dioxide 47 H* (22-29) mmol/L Anion Gap 5.3 (5-19) BUN 11 (8-23) mg/dL Creatinine 0.7 (0.5-0.9) mg/dL GFR Calculation Not Reportable Glucose 107 (65-115) mg/dL Calculated Osmolal ity 306 H (285-295) mOsm/k g Calcium 8.6 (8.5-10.5) mg/dL Total Bilirubin 0.7 (0.15-1.2) mg/dL AST 11 (0-32) U/L ALT 6 (0-33) U/L Alkaline Phosphata se 169 H (35-105) IU/L Troponin T Baselin e 19 H (0-10) ng/L Total Protein 6.3 L (6.6-8.7) g/dL Albumin 3.6 (3.5-5.2) g/dL Globulin 2.8 (1.3-4.6) g/dL 11/10/20 Range/Units 06:30 WBC (4.0-10.0) 10^3/ uL RBC (4.1-5.3) 10^6/u L Hgb (11.5-15.3) g/dL Hct (37.0-47.0) % MCV (81-99) fL MCH (28.0-34.0) pg MCHC (30.0-36.0) g/dL RDW (12.1-15.1) % Plt Count (130-400) 10^3/c mm MPV (7.4-10.4) fL Neut % (Auto) % Lymph % (Auto) % Carolina % (Auto) % Eos % (Auto) % Baso % (Auto) % Neut # (Auto) (1.8-7.7) 10^3/u L Lymph # (Auto) (0.8-4.8) 10^3/u L Carolina # (Auto) (0.2-0.9) 10^3/u L Eos # (Auto) (0.0-0.8) 10^3/u L Baso # (Auto) (0.0-0.1) 10^3/u L Nucleated RBC % (a uto) % Nucleated RBCs # /100WBC PT 21.70 H (12.1-14.9) SECO NDS INR 1.82 H (0.8-1.2) Sodium (136-145) mmol/L Potassium (3.5-5.1) mmol/L Chloride (98-107) mmol/L Carbon Dioxide (22-29) mmol/L Anion Gap (5-19) BUN (8-23) mg/dL Creatinine (0.5-0.9) mg/dL GFR Calculation Glucose (65-115) mg/dL Calculated Osmolal ity (285-295) mOsm/k g Calcium (8.5-10.5) mg/dL Total Bilirubin (0.15-1.2) mg/dL AST (0-32) U/L ALT (0-33) U/L Alkaline Phosphata se (35-105) IU/L Troponin T Baselin e (0-10) ng/L Total Protein (6.6-8.7) g/dL Albumin (3.5-5.2) g/dL Globulin (1.3-4.6) g/dL Discharge Plan Discharge Patient Disposition: Admitted As Inpatient Clinical Impression: Esophageal foreign body, Afib, Schatzki's ring, Chronic anticoagulation, Physical deconditioning, CHF (congestive heart failure), CAD (coronary artery disease), Anemia, GI bleed Condition: Stable Coding Level of Care Code ED High Energy Forming Equipment Operator for Zackeryg Fwd Exam Comprehensive
[2020-11-10 07:03] LABS: Albumin Level 3.6 g/dL (3.5-5.2); Chloride 99 mmol/L (98-107); Potassium 3.3 mmol/L (3.5-5.1); Sodium 148 mmol/L (136-145)
[2020-11-10 07:04] LABS: Troponin(5th) Baseline 19 ng/L (0-10)
[2020-11-10 07:34] LABS: INR 1.82 (0.8-1.2)
[2020-11-10 07:37] LABS: Alanine Aminotransferase 6 U/L (0-33); Alkaline Phosphatase 169 IU/L (35-105); Anion Gap 5.3 (5-19); Aspartate Amino Transferase 11 U/L (0-32); Blood Urea Nitrogen 11 mg/dL (8-23); Calcium 8.6 mg/dL (8.5-10.5); Globulin 2.8 g/dL (1.3-4.6); Glucose 107 mg/dL (65-115); Osmolality Calculated 306 mOsm/kg (285-295); Total Bilirubin 0.7 mg/dL (0.15-1.2); Total Protein 6.3 g/dL (6.6-8.7)
[2020-11-10 07:38] LABS: Carbon Dioxide 47 mmol/L (22-29)
--- NOTE | 2020-11-10 08:05 | ECG_ITS ---
[facility] Test Date: 2020-11-10 Pat Name: Iris Garcia Department: Room: Gender: Female Transactional Attorney: : 1940 Requested By: Emile Perla Order Number: [id number] Krupa MD: Santos Adorno M.D. Measurements Intervals [place] Rate: 68 P: CT: QRS: 41 QRSD: 110 T: -5 QT: 435 QTc: 464 Interpretive Statements ATRIAL FIBRILLATION WITH ABERRANT CONDUCTION OR VENTRICULAR PREMATURE COMPLEXES NONSPECIFIC ST & T-WAVE ABNORMALITY ABNORMAL RHYTHM ECG Compared to ECG 11/10/2020 06:39:34 Ventricular premature complex(es) now present Aberrant conduction of supraventricular beat(s) now present Intraventricular conduction delay no longer present T-wave abnormality still present Electronically Signed On 11-10-2020 21:44:05 LABEL STAMPER by Santos Adorno M.D. [id number]
[2020-11-10 09:35] LABS: Troponin 5 2HR 19.53 ng/L (0-10); Troponin 5 2HR Delta 0.53 ABS# (0-10)
[2020-11-10] MEDS: sodium chloride 0.9% (100 ml) 100 ML 240 ML (10:13)
[2020-11-10] MEDS: FUROsemide 10 mg/mL SDV 2mL 20 MG IVP (11:56)
[2020-11-10] MEDS: diphenhydrAMINE 50 mg/mL SDV 1mL 12.5 MG IVP (11:57)
--- NOTE | 2020-11-10 12:05 | ECG_ITS ---
[facility] Test Date: 2020-11-10 Pat Name: Iris Garcia Department: Room: 253 Gender: Female Technical Manager: : 1940 Requested By: Emile Perla Order Number: [id number] Krupa MD: Santos Adorno M.D. Measurements Intervals [place] Rate: 69 P: MI: QRS: 32 QRSD: 101 T: -19 QT: 367 QTc: 394 Interpretive Statements ATRIAL FIBRILLATION WITH ABERRANT CONDUCTION OR VENTRICULAR PREMATURE COMPLEXES NONSPECIFIC ST & T-WAVE ABNORMALITY ABNORMAL RHYTHM ECG Compared to ECG 11/10/2020 08:12:40 No significant changes Electronically Signed On 11-10-2020 21:44:52 PLATER SUPERVISOR by Santos Adorno M.D. [id number]
[2020-11-10 12:45] LABS: Magnesium 2.3 mg/dL (1.7-2.3)
[2020-11-10 12:49] LABS: Troponin 5 6HR 17.25 ng/L (0-10)
[2020-11-10 12:56] LABS: Troponin 5 6HR Delta -1.75 ng/L (0-12)
--- NOTE | 2020-11-10 12:58 | PM.HP ---
Documented by User: BENI Dela Cruz STDNT 11/10/20 14:18 Providers/Chief Complaint Admitting Physician: Anastacio Saab MD Primary Care Provider: Michael Hampton DO Chief Complaint: THROAT ISSUES History of Present Illness Iris Garcia is a 80 year old female with h/o GERD, Schatzki's ring, Parkinson's disease, CHF, afib, and mechanical mitral valve replacement c/o dysphagia starting yesterday at 1pm. She was unable to swallow a piece of turkey and stated that she choked on it, then vomited up a white, frothy sputum. Today, she's been able to only swallow water. She reported that she started having problems swallowing back in the . Her last EGD and colonoscopy were approximately in 2017. Lab work shows anemia with Hgb of 7.4 and RBC of 2.52. She denies fever, diarrhea, hematochezia, and hematuria. She also c/o headache, recurrent nosebleeds, SOB, pleurisy in the area of the LLL, and RUQ pain. Review of Systems General: Reports: 10 or more systems reviewed and unremarkable except in HPI and below Const: Denies: fever(s) or chills Resp: Reports: dyspnea and pain on inspiration; Denies: productive cough, non-productive cough or hemoptysis GI: Reports: abdominal pain (RUQ), vomiting and dysphagia; Denies: hematemesis, coffee ground emesis or hematochezia Musc: Reports: limited range of motion and muscle weakness Neuro: Reports: headache(s) and difficulty walking Medications/Allergies Home Medications Medication Instructions Recorded Confirmed Last Taken Type fluoxetine 10 mg capsule 10 mg PO DAILY@ cap 11/06/19 11/10/20 11/09/20 History polyethylene glycol 3350 17 17 gm PO DAILY PRN 11/06/19 11/10/20 02/25/20 History gram/dose oral powder rosuvastatin 10 mg tablet 10 mg PO DAILY@11/06/19 11/10/20 11/09/20 History carbidopa 10 mg-levodopa 100 mg 1 tab PO TID tab 03/12/20 11/10/20 11/09/20 History disintegrating tablet tolterodine 2 mg tablet 2 mg PO BID@03/12/20 11/10/20 11/09/20 History levothyroxine 50 mcg capsule 50 mcg PO DAILY@05/21/20 11/10/20 11/09/20 History aspirin 81 mg tablet,delayed 81 mg PO DAILY@09/17/20 11/10/20 11/09/20 History release warfarin 3 mg tablet 3 mg PO DIRECTED #60 tab 10/07/20 11/10/20 11/09/20 Rx warfarin 4 mg tablet 4 mg PO DIRECTED #60 tab 10/07/20 11/10/20 11/09/20 Rx tramadol 50 mg PO TID PRN #7 tab 10/24/20 11/10/20 Unknown Rx Klor-Con 10 20 meq PO BID@,11/10/20 11/10/20 11/09/20 History bumetanide 2 mg PO BID@,11/10/20 11/10/20 11/09/20 History ferrous gluconate 324 mg PO BID@,11/10/20 11/10/20 11/09/20 History metoprolol tartrate 12.5 mg PO DAILY@11/10/20 11/10/20 11/09/20 History sennosides-docusate sodium 2 tab PO BID PRN 11/10/20 11/10/20 Unknown History Allergies Allergy/AdvReac Type Severity Reaction Status Date / Time penicillin G Allergy UNK Verified 10/24/20 17:26 PFSH Acute PFSH: Medical History (Updated 11/10/20 @ 14:17 by Anastacio Saab MD) Afib Anemia -baseline Hg around 9-10 -follow with Dr Bullock CAD (coronary artery disease) Chronic anticoagulation Due to mechanical mitral valve; coumadin Chronic hypercapnic respiratory failure COPD (chronic obstructive pulmonary disease) Depression On fluoxetine with good control Diastolic CHF GERD (gastroesophageal reflux disease) PPI HTN (hypertension) Hypothyroidism -continue levothyroxine Iron deficiency anemia Has required transfusion in past, last egd and colonoscopy ~2017 with diverticulosis and internal hemorrhoids, no clear source of bleeding SONYA (obstructive sleep apnea) Uses 2 L of oxygen at night does not use CPAP Parkinson disease Follows up with Dr. Rainey in [facility]' ring Weakness Surgical History History of bilateral tubal ligation History of cholecystectomy History of total knee arthroplasty Left Mitral valve replaced Mechanical, on coumadin Family History Mother CAD (coronary artery disease) Diabetes Other Hypertension Social History Smoking and tobacco status: former smoker Quit status (tobacco): has quit using tobacco Year quit tobacco: 1994 - PPD x 15 Years Second hand smoke exposure: No Alcohol intake: never Caregiver/support person: Yes Household members: spouse and children Housing: House Marital status: Current occupational status: retired and disabled History of recent travel: No Current gender identity: Female Vitals/I&O/Wt Last Vital Signs Temp 97.7 F 11/10/20 12:47 Pulse 79 11/10/20 12:47 Resp 20 H 11/10/20 12:47 BP 144/72 11/10/20 12:47 Pulse Ox 100 11/10/20 12:47 11/09/20 11/10/20 11/10/20 22:59 06:59 14:59 Intake Total 350 / 350 Balance 350 / 350 Weight last 48 hrs Weight 65.771 kg Physical Exam Const: COMMON NORMALS: no acute distress and patient oriented x3 GENERAL APPEARANCE: cooperative and comfortable HENMT: COMMON NORMALS: normocephalic, atraumatic, Normal nasal mucous membranes and turbinates present, oropharynx normal, dentition normal and gingiva normal HEAD & SCALP: normal to inspection MOUTH: Normal oral and palatal mucosa present, lip normal, tongue normal, Normal salivary glands and ducts present and moist mucous membranes abnormal Eye: COMMON NORMALS: Equal, round and reactive pupils present, EOMs intact bilaterally, conjunctivae normal, no scleral icterus and no papilledema Resp: EFFORT & INSPECTION: Yes able to speak in complete sentences, Yes tachypneic, Yes labored and Yes uses accessory muscles AUSCULTATION: clear to auscultation bilaterally Cardio: COMMON NORMALS: no JVD, regular rate, regular rhythm, S1 normal heart sound present, S2 normal heart sound present, No gallops present (Cardio), No murmurs present (Cardio) and No rub (Cardio) HEART SOUNDS: 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 ) PERIPHERAL PULSES: Peripheral pulses 2+ throughout GI: COMMON NORMALS: Normal to inspection, nondistended, normoactive bowel sounds present and Soft to palpation INSPECTION: Yes normal to inspection Extremity: COMMON NORMALS: no pedal edema RIGHT LOWER EXTREMITY: Yes lower leg (hemosiderin scarring from varicose veins) LEFT LOWER EXTREMITY: Yes lower leg (hemosiderin scarring from varicose veins) Data : 11/10/20 06:30 11/10/20 06:30 Attestations Medical Necessity Statement*: needs 1 midnight for observation and EGD tonight Coding Level of Care Code Acute Pigment Making Supervisor for Chg Fwd Exam Comprehensive Diagnoses Dysphagia R13.10 Anemia D64.9 GI bleed K92.2 Hypokalemia E87.6 Documented by User: Anastacio Saab MD 11/10/20 14:31 Providers/Chief Complaint Chief Complaint: THROAT ISSUES Review of Systems General: Reports: 10 or more systems reviewed and unremarkable except in HPI and below Const: Denies: fever(s) Eyes: Denies: change in vision ENMT: Reports: epistaxis Card: Denies: chest pain Resp: Reports: dyspnea GI: Reports: nausea and vomiting; Denies: abdominal pain : Denies: flank pain Musc: Reports: back pain Skin/Breast: Denies: rash Neuro: Denies: headache(s) Psych: Denies: anxiety Endo: Denies: polyuria Jesus Alberto/Lymph: Denies: easy bruising All/Imm: Denies: urticaria Medications/Allergies Home Medications Medication Instructions Recorded Confirmed Last Taken Type fluoxetine 10 mg capsule 10 mg PO DAILY@09 cap 11/06/19 11/10/20 11/09/20 History polyethylene glycol 3350 17 17 gm PO DAILY PRN 11/06/19 11/10/20 02/25/20 History gram/dose oral powder rosuvastatin 10 mg tablet 10 mg PO DAILY@11/06/19 11/10/20 11/09/20 History carbidopa 10 mg-levodopa 100 mg 1 tab PO TID tab 03/12/20 11/10/20 11/09/20 History disintegrating tablet tolterodine 2 mg tablet 2 mg PO BID@03/12/20 11/10/20 11/09/20 History levothyroxine 50 mcg capsule 50 mcg PO DAILY@05/21/20 11/10/20 11/09/20 History aspirin 81 mg tablet,delayed 81 mg PO DAILY@09/17/20 11/10/20 11/09/20 History release warfarin 3 mg tablet 3 mg PO DIRECTED #60 tab 10/07/20 11/10/20 11/09/20 Rx warfarin 4 mg tablet 4 mg PO DIRECTED #60 tab 10/07/20 11/10/20 11/09/20 Rx tramadol 50 mg PO TID PRN #7 tab 10/24/20 11/10/20 Unknown Rx Klor-Con 10 20 meq PO BID@,11/10/20 11/10/20 11/09/20 History bumetanide 2 mg PO BID@11/10/20 11/10/20 11/09/20 History ferrous gluconate 324 mg PO BID@11/10/20 11/10/20 11/09/20 History metoprolol tartrate 12.5 mg PO DAILY@11/10/20 11/10/20 11/09/20 History sennosides-docusate sodium 2 tab PO BID PRN 11/10/20 11/10/20 Unknown History Allergies Allergy/AdvReac Type Severity Reaction Status Date / Time penicillin G Allergy UNK Verified 10/24/20 17:26 PFSH Acute PFSH: Medical History (Updated 11/10/20 @ 14:17 by Anastacio Saab MD) Afib Anemia -baseline Hg around 9-10 -follow with Dr Bullock CAD (coronary artery disease) Chronic anticoagulation Due to mechanical mitral valve; coumadin Chronic hypercapnic respiratory failure COPD (chronic obstructive pulmonary disease) Depression On fluoxetine with good control Diastolic CHF GERD (gastroesophageal reflux disease) PPI HTN (hypertension) Hypothyroidism -continue levothyroxine Iron deficiency anemia Has required transfusion in past, last egd and colonoscopy ~2017 with diverticulosis and internal hemorrhoids, no clear source of bleeding SONYA (obstructive sleep apnea) Uses 2 L of oxygen at night does not use CPAP Parkinson disease Follows up with Dr. Rainey in [place] Schatzki's ring Weakness Surgical History History of bilateral tubal ligation History of cholecystectomy History of total knee arthroplasty Left Mitral valve replaced Mechanical, on coumadin Family History Mother CAD (coronary artery disease) Diabetes Other Hypertension Social History Smoking and tobacco status: former smoker Quit status (tobacco): has quit using tobacco Year quit tobacco: 1994 PPD x 15 Years Second hand smoke exposure: No Alcohol intake: never Caregiver/support person: Yes Household members: spouse and children Housing: House Marital status: Current occupational status: retired and disabled History of recent travel: No Current gender identity: Female Data : 11/10/20 06:30 11/10/20 06:30 A&P Assessment and plan (1) Dysphagia: Status: Acute (2) Anemia: Status: Acute (3) GI bleed: Status: Acute (4) Hypokalemia: Status: Acute Additional A&P Information History of mechanical mitral valve replacement. Normally on Coumadin. INR is not therapeutic, at 1.8. Planning on EGD later today. Following this determination will be if patient can go on anticoagulation in the form of either Lovenox subcutaneous or heparin drip. Holding Coumadin currently. Atrial fibrillation, currently rate controlled. Restart home medication when she is able to take p.o. Hypothyroidism, continue home medication Coronary artery disease, asymptomatic currently COPD. Continue oxygen as needed. DuoNeb as needed. Other medical problems as outlined in past medical history Full code Currently on Coumadin but will likely initiate Lovenox subcutaneous after EGD. Additionally we will add SCDs for DVT prophylaxis Attestations Medical Necessity Statement*: Will need greater than 2 midnight stay secondary to GI bleeding, dysphagia, need for procedure, and anemia requiring transfusion. Electrolyte abnormalities also present. Time Spent in Patient Care: Greater than 35 minutes Other Attestations: Note that I interviewed the patient, examined the patient, discussed the assessment and plan with the medical student who documented the above. This note should be reviewed in conjunction with the other history and physical note that I have entered in the chart. Coding Level of Care Code Acute Pigment Making Supervisor for Chg Fwd Exam Comprehensive Diagnoses Dysphagia R13.10 Anemia D64.9 GI bleed K92.2 Hypokalemia E87.6
[2020-11-10] MEDS: lidocaine 1% 5 ML in potassium chloride premix 100 ML 25 ML IV (13:11)
[2020-11-10] MEDS: sodium chloride 0.9% 1,000 ML 30 ML IV ×2 (13:15→17:16)
[2020-11-10] MEDS: pantoprazole 40 mg SDV IVP (13:59)
--- NOTE | 2020-11-10 14:09 | PM.HP ---
Providers/Chief Complaint Admitting Physician: Anastacio Saab MD Primary Care Provider: Michael Hampton DO Chief Complaint: THROAT ISSUES History of Present Illness Iris Garcia is a 80 year old female that presented to the emergency department with choking and vomiting. She was unable to tolerate liquids. Please see students history and physical entered on the same day for further delineation of symptoms. Review of Systems General: Reports: Other (Please see students review of systems that was done in coordination with me) Medications/Allergies Home Medications Medication Instructions Recorded Confirmed Last Taken Type fluoxetine 10 mg capsule 10 mg PO DAILY@ cap 11/06/19 11/10/20 11/09/20 History polyethylene glycol 3350 17 17 gm PO DAILY PRN 11/06/19 11/10/20 02/25/20 History gram/dose oral powder rosuvastatin 10 mg tablet 10 mg PO DAILY@11/06/19 11/10/20 11/09/20 History carbidopa 10 mg-levodopa 100 mg 1 tab PO TID tab 03/12/20 11/10/20 11/09/20 History disintegrating tablet tolterodine 2 mg tablet 2 mg PO BID@03/12/20 11/10/20 11/09/20 History levothyroxine 50 mcg capsule 50 mcg PO DAILY@05/21/20 11/10/20 11/09/20 History aspirin 81 mg tablet,delayed 81 mg PO DAILY@09/17/20 11/10/20 11/09/20 History release warfarin 3 mg tablet 3 mg PO DIRECTED #60 tab 10/07/20 11/10/20 11/09/20 Rx warfarin 4 mg tablet 4 mg PO DIRECTED #60 tab 10/07/20 11/10/20 11/09/20 Rx tramadol 50 mg PO TID PRN #7 tab 10/24/20 11/10/20 Unknown Rx Klor-Con 10 20 meq PO BID@11/10/20 11/10/20 11/09/20 History bumetanide 2 mg PO BID@11/10/20 11/10/20 11/09/20 History ferrous gluconate 324 mg PO BID@11/10/20 11/10/20 11/09/20 History metoprolol tartrate 12.5 mg PO DAILY@21 11/10/20 11/10/20 11/09/20 History sennosides-docusate sodium 2 tab PO BID PRN 11/10/20 11/10/20 Unknown History Allergies Allergy/AdvReac Type Severity Reaction Status Date / Time penicillin G Allergy UNK Verified 10/24/20 17:26 PFSH Acute PFSH: Medical History (Updated 11/10/20 @ 14:17 by Anastacio Saab MD) Afib Anemia -baseline Hg around 9-10 -follow with Dr Bullock CAD (coronary artery disease) Chronic anticoagulation Due to mechanical mitral valve; coumadin Chronic hypercapnic respiratory failure COPD (chronic obstructive pulmonary disease) Depression On fluoxetine with good control Diastolic CHF GERD (gastroesophageal reflux disease) PPI HTN (hypertension) Hypothyroidism -continue levothyroxine Iron deficiency anemia Has required transfusion in past, last egd and colonoscopy ~2017 with diverticulosis and internal hemorrhoids, no clear source of bleeding SONYA (obstructive sleep apnea) Uses 2 L of oxygen at night does not use CPAP Parkinson disease Follows up with Dr. Rainey in [facility]'s ring Weakness Surgical History History of bilateral tubal ligation History of cholecystectomy History of total knee arthroplasty Left Mitral valve replaced Mechanical, on coumadin Family History Mother CAD (coronary artery disease) Diabetes Other Hypertension Social History Smoking and tobacco status: former smoker Quit status (tobacco): has quit using tobacco Year quit tobacco: 1994 - PPD x 15 Years Second hand smoke exposure: No Alcohol intake: never Caregiver/support person: Yes Household members: spouse and children Housing: House Marital status: Current occupational status: retired and disabled History of recent travel: No Current gender identity: Female Vitals/I&O/Wt Last Vital Signs Temp 97.7 F 11/10/20 12:47 Pulse 78 11/10/20 13:38 Resp 20 H 11/10/20 12:47 BP 144/72 11/10/20 12:47 Pulse Ox 97 11/10/20 13:38 11/09/20 11/10/20 11/10/20 22:59 06:59 14:59 Intake Total 450 / 450 Balance 450 / 450 Weight last 48 hrs Weight 65.771 kg Physical Exam Narrative: EXAM NARRATIVE: See exam done by student today. I have reviewed, and examined the patient myself and agree with her current exam. No overall changes. Data : 11/10/20 06:30 11/10/20 06:30 Other Labs: INR 1.82 Magnesium 2.3 Calcium 8.6 LFTs normal with exception of alkaline phosphatase of 169 Troponin XIX, unchanged after 120 minutes Chest x-ray reviewed by me demonstrates interstitial changes, with no acute overall change or infiltrate from previous x-ray. Reading says possible early interstitial change on the right upper lobe EKG demonstrates atrial fibrillation, normal axis, rate of [address]-T changes and occasional PVC. A&P Assessment and plan (1) Dysphagia: This could be secondary to food impaction, achalasia or other motility abnormality secondary to Parkinson's, stricture, recurrent Schatzki's ring or esophageal web. Surgery consultation Protonix 40 mg IV every 12 hours Possible EGD this afternoon Status: Acute (2) Anemia: Transfuse 1 unit packed red blood cells Hemoglobin 1 to 2 hours following transfusion Monitor for any recurrent bleeding Note that she was Hemoccult positive in the emergency department Protonix as above, EGD as above Status: Acute (3) GI bleed: See notation under anemia Status: Acute (4) Hypokalemia: Supplement Check magnesium level Status: Acute Additional A&P Information History of mechanical mitral valve replacement. Normally on Coumadin. INR is not therapeutic, at 1.8. Planning on EGD later today. Following this determination will be if patient can go on anticoagulation in the form of either Lovenox subcutaneous or heparin drip. Holding Coumadin currently. Atrial fibrillation, currently rate controlled. Restart home medication when she is able to take p.o. Hypothyroidism, continue home medication Coronary artery disease, asymptomatic currently COPD. Continue oxygen as needed. DuoNeb as needed. Other medical problems as outlined in past medical history Full code Currently on Coumadin but will likely initiate Lovenox subcutaneous after EGD. Additionally we will add SCDs for DVT prophylaxis Attestations Medical Necessity Statement*: Will need greater than 2 midnight stay for evaluation of anemia, with GI bleeding and dysphagia. Time Spent in Patient Care: Greater than 35 minutes Coding Level of Care Code Acute Hotbed Transfer Operator for g Fwd Diagnoses Dysphagia R13.10 Anemia D64.9 GI bleed K92.2 Hypokalemia E87.6
--- NOTE | 2020-11-10 16:48 | PC.NURSE ---
OPS ROSEANN Leung at bedside to transfer to surgery for procedure.
--- NOTE | 2020-11-10 16:55 | PC.CHAP ---
Pastoral Care Encounter/Spiritual Assessment Type of Contact [] Declined vehicle monitor technician visit [] Patient/Family/Request visit [] Outpatient visit [] Follow-up visit [] Physician referral [] Code/Alert [x] Routine visit [] Staff referral [] Actively dying [] Patient sleeping [x] Family support [] [] Out of room [] Palliative care [] [x] Receiving care in room [] Pre-surgical visit [] Trauma [] Long length of stay [] ICU visit [] Other: Relational/Emotional Strength [x] Patient feels connected with others/family/visitors/staff [] Distress [] Loneliness/isolation [] Abandonment Spirituality of Patient [x] Person of Vivian [x] Attends Caodaism of their Vivian [x] Believes in Prayer [x] Reads Bible or Latter Day materials [] There are Spiritual issues to be addressed Mexican Food Maker Interventions [x] Prayer [] Active listening [x] Non-anxious presence [x] Spiritual/emotional support [] Crisis/trauma care [] Spiritual counseling [] Bereavement support [] Provided bereavement packet [] Provided Bible/devotional materials [] Provided toy/stuffed animal, coloring book to patient or family member [] Provided Communion [] Anointing/[place] [] Salvation [x] Completed spiritual assessment [] Other: Impact on Illness or Injury [] Angry [] Fearful [] Anxious [] Often cries [] Exhaustion [] Unable to work [] Unable to attend religion [] Unable to walk/stand [] Unable to read [] Unable to drive [] Unable to eat/drink [] Unable to sleep [] Unable to be with family [] Patient intubated [] Other: Summary This is a strong Rastafari family I've know for more than 40 years. Godly, devoted, and caring. Their vivian is real. Time spent with patient
--- NOTE | 2020-11-10 17:02 | P.ANESASSM_ITS ---
Pre-Anesthetic Assessment Pre-Anesthetic Assessment: Height/Weight: Height 1.52 m Weight 65.771 kg Temp Pulse Resp BP Pulse Ox 97.7 F 77 18 125/53 93 11/10/20 15:32 11/10/20 15:32 11/10/20 15:32 11/10/20 15:32 11/10/20 15:32 Preop Diagnosis: food bolus Proposed Procedure: Operation Date: 11/10/20 12:15 Proposed Procedures p EGD(Not Applicable) - Zechariah Prabhakar MD Was Beta Cuauhtemoc taken within 24 hours: Yes Social: Social History: No alcohol and No tobacco Exam: Pre-Anes Outpt Exam: oriented x 3 and clear to auscultation bilaterally Additional Exam Findings (including area of procedure): Sedate Airway: Submandibular: WNL Cervical ROM: WNL MP: 2 Dentition: False Pulmonary: Pulmonary: COPD CV/HEM: CV/HEM: Afib, Anemia, CAD, CHF and HTN Comments: MV replacement GI: GI: GERD Metabolic: Metabolic: Thyroid Neuropsych: Neuropsych: Depression Comments: Parkinson's Anesthetic Plan: ASA status: 3E Anesthesia: General Other: mod RSI Risk of > 500 ml blood loss (7ml/kg in children): No Meds/Allergies Current Medications: Current Medications Generic Name Dose Route Start Last Admin Trade Name Freq PRN Reason Stop Dose Admin Carbidopa/Levodopa 1 each 11/10/20 15:00 11/10/20 16:29 Carbidopa-Levodo pa 10-100 Mg Table t PO 1 each TID HARLAN Administration Sodium Chloride 1,000 mls @ 30 ml s/hr 11/10/20 10:25 11/10/20 12:59 Sodium Chloride 0.9% IV Not Given .Q24H HARLAN Sodium Chloride 1,000 mls @ 30 ml s/hr 11/10/20 11:23 11/10/20 13:15 Sodium Chloride 0.9% IV 11/11/20 11:22 30 mls/hr .Q24H ONE Administration Pantoprazole Sodiu m 40 mg 11/10/20 11:30 11/10/20 13:59 Pantoprazole 40 Mg Sdv IVP 40 mg Q12H HARLAN Administration PFSH Anesthesia PFSH: Medical History (Updated 11/10/20 @ 14:17 by Anastacio Saab MD) Afib Anemia -baseline Hg around 9-10 -follow with Dr Bullock CAD (coronary artery disease) Chronic anticoagulation Due to mechanical mitral valve; coumadin Chronic hypercapnic respiratory failure COPD (chronic obstructive pulmonary disease) Depression On fluoxetine with good control Diastolic CHF GERD (gastroesophageal reflux disease) PPI HTN (hypertension) Hypothyroidism -continue levothyroxine Iron deficiency anemia Has required transfusion in past, last egd and colonoscopy ~2017 with diverticulosis and internal hemorrhoids, no clear source of bleeding SONYA (obstructive sleep apnea) Uses 2 L of oxygen at night does not use CPAP Parkinson disease Follows up with Dr. Rainey in [facility]' ring Weakness Surgical History History of bilateral tubal ligation History of cholecystectomy History of total knee arthroplasty Left Mitral valve replaced Mechanical, on coumadin Family History Mother CAD (coronary artery disease) Diabetes Other Hypertension Social History Smoking and tobacco status: former smoker Quit status (tobacco): has quit using tobacco Year quit tobacco: 1994 - PPD x 15 Years Second hand smoke exposure: No Alcohol intake: never Caregiver/support person: Yes Household members: spouse and children Housing: House Marital status: Current occupational status: retired and disabled History of recent travel: No Current gender identity: Female Data Anesthesia CBC & Chem 7: 11/10/20 14:46 11/10/20 06:30 Other Labs: Laboratory Results - last 48 hr 11/10/20 11/10/20 11/10/20 06:30 06:30 06:30 WBC 3.7 L RBC 2.52 L Hgb 7.4 L Hct 25.9 L MCV 102.8 H MCH 29.4 MCHC 28.6 L RDW 15.5 H Plt Count 152 MPV 9.2 Neut % (Auto) 71.4 Lymph % (Auto) 15.8 Jackson % (Auto) 9.9 Eos % (Auto) 2.1 Baso % (Auto) 0.5 Neut # (Auto) 2.67 Lymph # (Auto) 0.6 L Jackson # (Auto) 0.4 Eos # (Auto) 0.1 Baso # (Auto) 0.0 Nucleated RBC % (auto) 0 Nucleated RBCs # 0.0 PT INR Sodium 148 H Potassium 3.3 L Chloride 99 Carbon Dioxide 47 H* Anion Gap 5.3 BUN 11 Creatinine 0.7 GFR Calculation Not Reportable Glucose 107 Calculated Osmolality 306 H Calcium 8.6 Magnesium Total Bilirubin 0.7 AST 11 ALT 6 Alkaline Phosphatase 169 H Troponin T Baseline 19 H Troponin T 120 Minute Delta Troponin T Troponin T Hi Sens 6Hr Troponin T Hi Sens 6Hr Delta Total Protein 6.3 L Albumin 3.6 Globulin 2.8 Blood Type Rho(D) Type Antibody Screen Crossmatch 11/10/20 11/10/20 11/10/20 06:30 06:30 08:20 WBC RBC Hgb Hct MCV MCH MCHC RDW Plt Count MPV Neut % (Auto) Lymph % (Auto) Jackson % (Auto) Eos % (Auto) Baso % (Auto) Neut # (Auto) Lymph # (Auto) Jackson # (Auto) Eos # (Auto) Baso # (Auto) Nucleated RBC % (auto) Nucleated RBCs # PT 21.70 H INR 1.82 H Sodium Potassium Chloride Carbon Dioxide Anion Gap BUN Creatinine GFR Calculation Glucose Calculated Osmolality Calcium Magnesium 2.3 Total Bilirubin AST ALT Alkaline Phosphatase Troponin T Baseline Troponin T 120 Minute 19.53 H Delta Troponin T 0.53 Troponin T Hi Sens 6Hr Troponin T Hi Sens 6Hr Delta Total Protein Albumin Globulin Blood Type Rho(D) Type Antibody Screen Crossmatch 11/10/20 11/10/20 11/10/20 08:20 12:14 14:46 WBC RBC Hgb 8.0 L Hct 27.0 L MCV MCH MCHC RDW Plt Count MPV Neut % (Auto) Lymph % (Auto) Jackson % (Auto) Eos % (Auto) Baso % (Auto) Neut # (Auto) Lymph # (Auto) Jackson # (Auto) Eos # (Auto) Baso # (Auto) Nucleated RBC % (auto) Nucleated RBCs # PT INR Sodium Potassium Chloride Carbon Dioxide Anion Gap BUN Creatinine GFR Calculation Glucose Calculated Osmolality Calcium Magnesium Total Bilirubin AST ALT Alkaline Phosphatase Troponin T Baseline Troponin T 120 Minute Delta Troponin T Troponin T Hi Sens 6Hr 17.25 H Troponin T Hi Sens 6Hr Delta -1.75 L Total Protein Albumin Globulin Blood Type A Positive Rho(D) Type Positive Antibody Screen Negative Crossmatch See Detail Cardiac Studies: Holter Monitor 06/04/20
--- NOTE | 2020-11-10 17:27 | PM.CONSULT ---
Providers/Reason For Consult Consulting Physican/Specialty*: [facility] Reason for Consult*: Food impaction Attending Physician: Anastacio Saab MD Primary Care Provider: Michael Hampton DO History of Present Illness History of Present Illness Iris Garcia is a 80 year old female who presented to the ER this morning with complaints of choking and vomiting since yesterday. Patient is not able to keep liquids down. She has had prior esophageal dilation in the past. Patient denies any chest or abdominal pain. Since admission she is feeling better and thinks that the food bolus might have passed. She is also noted to be anemic and is on anticoagulation for mechanical heart valve. Her last colonoscopy 2017 showed couple of polyps which were removed. Patient denies any hematemesis, hematochezia or melena. Review of Systems General: Reports: 10 or more systems reviewed and unremarkable except in HPI and below Meds/Allergies Home Medications and Allergies Home Medications Medication Instructions Recorded Confirmed Last Taken Type fluoxetine 10 mg capsule 10 mg PO DAILY@11/06/19 11/10/20 11/09/20 History polyethylene glycol 3350 17 17 gm PO DAILY PRN 11/06/19 11/10/20 02/25/20 History gram/dose oral powder rosuvastatin 10 mg tablet 10 mg PO DAILY@11/06/19 11/10/20 11/09/20 History carbidopa 10 mg-levodopa 100 mg 1 tab PO TID tab 03/12/20 11/10/20 11/09/20 History disintegrating tablet tolterodine 2 mg tablet 2 mg PO BID@03/12/20 11/10/20 11/09/20 History levothyroxine 50 mcg capsule 50 mcg PO DAILY@05/21/20 11/10/20 11/09/20 History aspirin 81 mg tablet,delayed 81 mg PO DAILY@09/17/20 11/10/20 11/09/20 History release warfarin 3 mg tablet 3 mg PO DIRECTED #60 tab 10/07/20 11/10/20 11/09/20 Rx warfarin 4 mg tablet 4 mg PO DIRECTED #60 tab 10/07/20 11/10/20 11/09/20 Rx tramadol 50 mg PO TID PRN #7 tab 10/24/20 11/10/20 Unknown Rx Klor-Con 10 20 meq PO BID@11/10/20 11/10/20 11/09/20 History bumetanide 2 mg PO BID@11/10/20 11/10/20 11/09/20 History ferrous gluconate 324 mg PO BID@11/10/20 11/10/20 11/09/20 History metoprolol tartrate 12.5 mg PO DAILY@11/10/20 11/10/20 11/09/20 History sennosides-docusate sodium 2 tab PO BID PRN 11/10/20 11/10/20 Unknown History Allergies Allergy/AdvReac Type Severity Reaction Status Date / Time penicillin G Allergy UNK Verified 10/24/20 17:26 Current Medications Current Medications Generic Name Dose Route Start Last Admin Trade Name Freq PRN Reason Stop Dose Admin Carbidopa/Levodopa 1 each 11/10/20 15:00 11/10/20 16:29 Carbidopa-Levodopa 10-100 Mg Tablet PO 1 each TID HARLAN Administration Sodium Chloride 1,000 mls @ 30 mls/hr 11/10/20 10:25 11/10/20 12:59 Sodium Chloride 0.9% IV Not Given .Q24H HARLAN Sodium Chloride 1,000 mls @ 30 mls/hr 11/10/20 11:23 11/10/20 13:15 Sodium Chloride 0.9% IV 11/11/20 11:22 30 mls/hr .Q24H ONE Administration Sodium Chloride 1,000 mls @ 30 mls/hr 11/10/20 17:00 11/10/20 17:16 Sodium Chloride 0.9% IV 11/11/20 16:59 30 mls/hr .Q24H HARLAN Administration Pantoprazole Sodium 40 mg 11/10/20 11:30 11/10/20 13:59 Pantoprazole 40 Mg Sdv IVP 40 mg Q12H HARLAN Administration PFSH Acute PFSH: Medical History Afib Anemia -baseline Hg around 9-10 -follow with Dr Bullock CAD (coronary artery disease) Chronic anticoagulation Due to mechanical mitral valve; coumadin Chronic hypercapnic respiratory failure COPD (chronic obstructive pulmonary disease) Depression On fluoxetine with good control Diastolic CHF GERD (gastroesophageal reflux disease) PPI HTN (hypertension) Hypothyroidism -continue levothyroxine Iron deficiency anemia Has required transfusion in past, last egd and colonoscopy ~2017 with diverticulosis and internal hemorrhoids, no clear source of bleeding SONYA (obstructive sleep apnea) Uses 2 L of oxygen at night does not use CPAP Parkinson disease Follows up with Dr. Rainey in [facility]'s ring Weakness Surgical History History of bilateral tubal ligation History of cholecystectomy History of total knee arthroplasty Left Mitral valve replaced Mechanical, on coumadin Family History Mother CAD (coronary artery disease) Diabetes Other Hypertension Social History Smoking and tobacco status: former smoker Quit status (tobacco): has quit using tobacco Year quit tobacco: 1994 - PPD x 15 Years Second hand smoke exposure: No Alcohol intake: never Caregiver/support person: Yes Household members: spouse and children Housing: House Marital status: Current occupational status: retired and disabled History of recent travel: No Current gender identity: Female Vitals/I&O/Wt Last Vital Signs Temp 97 F L 11/10/20 17:10 Pulse 64 11/10/20 17:10 Resp 18 11/10/20 17:10 BP 137/42 11/10/20 17:10 Pulse Ox 100 11/10/20 17:10 11/10/20 11/10/20 11/10/20 06:59 14:59 22:59 Intake Total 450 / 450 Balance 450 / 450 Weight last 48 hrs Weight 145 lb Physical Exam Narrative: EXAM NARRATIVE: HEENT: Normocephalic Eye: Sclera /conjunctiva normal Respiratory and chest: Bilateral clear breath sounds on auscultation Cardiovascular: Normal S1 and S2 heart sounds Abdomen: Soft to palpation Neurological: Oriented to place person and time Skin: Intact, no lesions appreciated on gross exam A&P Assessment and plan (1) Esophageal foreign body: 80-year-old female on subtherapeutic anticoagulation for mechanical heart valve who presents with esophageal obstruction due to food bolus and FOBT positive stool. Plan for EGD with disimpaction of food bolus Status: Acute Coding Level of Care Code Acute Floor Hand for [facility] Fwd Diagnoses Esophageal foreign body T18.108A
--- NOTE | 2020-11-10 20:10 | SUR.PHASEI ---
1940 PT MORE AWAKE MOANING , ORAL AIRWAY OUT, VSS GOOD RESP EFFORT 24/[address] 1950 PT PULLING MASK OFF PT PLACED OFF CPAP AND ON 5LNC, PT REMAINS WEAK BUT DOES RESPOND, RESP EFFORT LABORED AT 26, SATS MAINTAINED AT 97% DR SOLOMON AWARE 2004 ABGS ORDERED PT SLEEPS IF NOT DISTURBED
[2020-11-10 20:24] LABS: ABG PH Result 7.23 (7.35-7.45); Arterial Blood Gas Hematocrit 29.7 % (37-47); Base Excess ABG 12.5 mmol/L (-2.0-2.0); Blood Gas Allen Test Pos; Blood Gas Sample Site Radial, right; Blood Gas Sample Type Arterial; Oxygen Device NC
--- NOTE | 2020-11-10 20:32 | SUR.PHASEI ---
PT BACK ON CPAP PER RESP, PT MORE ALERT AND DOES AWAKE AND VERBALIZE APPROPRIATELY BUT CANNOT STAY AWAKE, RESP 26AFTER DR VELEZ SEEN ABGS, PT CO2 WAS 103, PT BACK ON CPAP PER RESP STAFF. PT TO TRANSFER TO ICU
--- NOTE | 2020-11-10 20:37 | PM.EVENT ---
Event Note Event Note: Called by anesthesia. Mrs. Garcia required intubation for procedure and has been slow to get back to baseline. Recent ABG 7.2/103/139. Putting back on bipap and will put in ICU overnight. Recheck ABG in one to two hrs. Spoke with respiratory. Transfer orders adjusted. Spoke with Dr Dela Cruz and Dr Prabhakar. Resume anticoagulation with lovenox. CLD when awake. Changed to po protonix. Will monitor response to treatment. Decreasing FIO@. PCO2 60s prior to procedure. Event Notes Attestations Time Spent in Patient Care: 16 - 35 minutes 20 minutes additional care evaluating pt, discussing with providers and completing paperwork for transfer.
--- NOTE | 2020-11-10 20:40 | ANE.PACU2 ---
Inpatient post-anesthesia follow up: Airway intact: Yes Vital signs: Temperature 97.4 F Pulse Rate [Monito r] 69 Pulse Rate 83 Respiratory Rate 26 Blood Pressure [Ri ght Arm] 130/49 Blood Pressure 156/75 Pulse Oximetry 99 Oxygen Delivery Me thod [ Nasal Cannula Current Rate & Del marilyn] Oxygen Delivery Me thod CPAP Oxygen Flow Rate [ Current Rate 2 & Delivery] Oxygen Flow Rate 40 Fraction of Inspir ed Oxygen Hydration adequate: Yes Nausea and vomiting: No Pain level: 2 Additional Comments: Sedated, CO2 retention--Consulted Dr. Madsen for transfer to ICU
--- NOTE | 2020-11-10 20:45 | SUR.PHASEI ---
2044 PT SLEEPS IF NOT DISTURBED CPAP ON AT 40% IPAP18 EPAP 8 RESP 28, SATS 95% VSS. PT OUT OF PHASE 1 NOW IN HOLDING WAITING FOR ICU 8 TO BE READY.
--- NOTE | 2020-11-10 20:57 | SUR.PHASEI ---
1918 LATE ENTRY PT MONITOR ON ARRIVAL TO PACU WAS AFIB WITH BBB FREQUENT PVCS NOTED UNIFOCAL BUT OF DIFFERENT SHAPES AT TIMES. 2100 PT RYTHM UNCHANGED , MORE FREQUENT PVCS NOTED WITH CPAP, VSS
--- NOTE | 2020-11-10 21:29 | PC.NURSE ---
Arrived to unit arrived from pacu at this time via NC. pt is drowsy and arouses to verbal stimuli. Oriented to person and place. Pt placed on bedside monitor, RT at bedside and applied BIPAP. 18/6 fio2 35%.
[2020-11-10] MEDS: enoxaparin 60 mg/0.6 mL Syringe SUBCUT (23:05)
[2020-11-10 23:23] LABS: ABG PH Result 7.33 (7.35-7.45); Arterial Blood Gas Hematocrit 28.1 % (37-47); Base Excess ABG 15.2 mmol/L (-2.0-2.0); Blood Gas Allen Test Pos; Blood Gas Operator Identificat JB; Blood Gas Sample Site Radial, right; Blood Gas Sample Type Arterial; HCO3 ABG 43.7 mmol/L (22-26); Oxygen Device BIPAP; PO2 ABG 58.9 mmHg (80.0-100.0)
[2020-11-10 23:25] LABS: ABG PCO2 82.4 mmHg (35-45)
[2020-11-11] VITALS (18 sets, daily range): BP systolic 120–135; BP diastolic 35–68; PULSE 67–838; RESP 16–30; TEMP 36.7–37.7; O2SAT 93–100
[2020-11-11] MEDS: ipratropium-albuterol 3 mL Neb INHALATION ×2 (02:14→07:34)
[2020-11-11 04:47] LABS: Basophils % 0.5 %; Eosinophils # 0.1 10^3/uL (0.0-0.8); Hematocrit 29.3 % (37.0-47.0); Hemoglobin 8.2 g/dL (11.5-15.3); Lymphocytes # 0.6 10^3/uL (0.8-4.8); Lymphocytes % 13.9 %; Mean Corpuscular Hemoglobin 29.2 pg (28.0-34.0); Mean Corpuscular Volume 104.3 fL (81-99); Mean Platelet Volume 9.4 fL (7.4-10.4); Monocytes # 0.3 10^3/uL (0.2-0.9); Monocytes % 7.7 %; Neutrophils # 3.07 10^3/uL (1.8-7.7); Neutrophils % 75.9 %; Nucleated Red Blood Cells % 0 %; Platelet Count 119 10^3/cmm (130-400); Red Blood Count 2.81 10^6/uL (4.1-5.3); Red Cell Distribution Width 16.1 % (12.1-15.1)
[2020-11-11 05:09] LABS: INR 2.01 (0.8-1.2)
[2020-11-11 05:20] LABS: Alanine Aminotransferase < 5 U/L (0-33); Albumin Level 2.9 g/dL (3.5-5.2); Alkaline Phosphatase 152 IU/L (35-105); Aspartate Amino Transferase 17 U/L (0-32); Blood Urea Nitrogen 11 mg/dL (8-23); Calcium 8.2 mg/dL (8.5-10.5); Carbon Dioxide 40 mmol/L (22-29); Chloride 103 mmol/L (98-107); Globulin 2.8 g/dL (1.3-4.6); Glucose 75 mg/dL (65-115); Osmolality Calculated 304 mOsm/kg (285-295); Sodium 148 mmol/L (136-145); Total Bilirubin 1.6 mg/dL (0.15-1.2); Total Protein 5.7 g/dL (6.6-8.7)
[2020-11-11 05:25] LABS: Anion Gap 8.6 (5-19); Potassium 3.6 mmol/L (3.5-5.1)
[2020-11-11 05:31] LABS: ABG PH Result 7.37 (7.35-7.45); Arterial Blood Gas Hematocrit 26.4 % (37-47); Base Excess ABG 15.4 mmol/L (-2.0-2.0); Blood Gas Operator Identificat JB; Blood Gas Sample Site Brachial, left; Blood Gas Sample Type Arterial; HCO3 ABG 42.9 mmol/L (22-26); Oxygen Device BIPAP
[2020-11-11 05:32] LABS: ABG PCO2 73.6 mmHg (35-45)
--- NOTE | 2020-11-11 09:29 | PM.PN ---
Documented by User: BENI Dela Cruz STDEMMA 11/11/20 10:36 Subjective Subjective: Interval history: Mrs. Garcia is a 80 yo female who presented yesterday for dysphagia and possible GI bleed. Yesterday's EGD disimpacted a food bolus; pt required intubation and was slow to get back to her baseline. The ABG yesterday at 20:16 showed 7.23/103/139, so she was put on a bipap. Pt was placed on Lovenox. Today, she is awake and alert, and was taken off the bipap. When I examined her she was still on the bipap and somnelent. Later on, she was awake and eating breakfast. Medications: Reviewed: Yes Vitals/I&O/Wt Last Vital Signs Temp 99.8 F H 11/11/20 02:00 Pulse 82 11/11/20 07:38 Resp 16 11/11/20 07:36 BP 120/48 11/11/20 06:00 Pulse Ox 93 11/11/20 07:38 11/10/20 11/11/20 11/11/20 22:59 06:59 14:59 Intake Total 335 / 785 Output Total 0 / 0 Balance 335 / 785 Weight last 48 hrs Weight 65.771 kg Physical Exam Narrative: EXAM NARRATIVE: HEENT: Normocephalic Eye: Sclera /conjunctiva normal Respiratory and chest: Bilateral clear breath sounds on auscultation Cardiovascular: Normal S1 and S2 heart sounds Abdomen: Soft to palpation Neurological: Oriented to place person and time Skin: Intact, no lesions appreciated on gross exam Const: COMMON NORMALS: no acute distress, patient oriented x3 and alert EXAM LIMITATIONS: other limitations (bipap still on when I examined her) GENERAL APPEARANCE: cooperative and comfortable ORIENTATION/CONSCIOUSNESS: Yes awake, Yes oriented to person, Yes oriented to place and Yes oriented to time HENMT: COMMON NORMALS: normocephalic, atraumatic, hearing grossly normal bilaterally, external ears normal, Normal external nose present, Normal nasal mucous membranes and turbinates present, oropharynx normal, dentition normal and gingiva normal HEAD & SCALP: normal to inspection, normocephalic and atraumatic FACE & SINUS: normal facial exam NOSE: Normal external nose present, Normal nares present and Normal nasal mucous membranes and turbinates present EXTERNAL EAR: Yes external ears normal MOUTH: Normal oral and palatal mucosa present, lip normal, tongue normal, Normal salivary glands and ducts present and moist mucous membranes abnormal Eye: COMMON NORMALS: Equal, round and reactive pupils present, EOMs intact bilaterally, conjunctivae normal, no scleral icterus and no papilledema GENERAL EYE: appearance normal, both eyes and all related structures and normal light reflex CONJUNCTIVA: Yes conjunctivae normal PUPIL: Yes Equal, round and reactive pupils present DIRECT OPHTHALMOSCOPY: Yes normal light reflex and Yes no papilledema Neck/C-Spine: COMMON NORMALS: no JVD Resp: COMMON NORMALS: normal respiratory effort, No retractions, No use of accessory muscles and clear to auscultation bilaterally EFFORT & INSPECTION: Yes able to speak in complete sentences, Yes tachypneic, Yes labored and Yes uses accessory muscles AUSCULTATION: clear to auscultation bilaterally Cardio: COMMON NORMALS: no JVD, regular rate, regular rhythm, S2 normal heart sound present, No gallops present (Cardio), No murmurs present (Cardio), No rub (Cardio) and Peripheral pulses 2+ throughout RATE: regular rate RHYTHM: regular rhythm and abnormal rhythm irregularly irregular HEART SOUNDS: S2 normal heart sound present, 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 ) and Abnormal heart opening sounds (mechanical S1) PERIPHERAL PULSES: Peripheral pulses 2+ throughout GI: COMMON NORMALS: Normal to inspection, nondistended, normoactive bowel sounds present, Soft to palpation and No hepatosplenomegaly present INSPECTION: Yes normal to inspection AUSCULTATION: Yes normoactive bowel sounds PALPATION: Yes Soft to palpation, No Tenderness to palpation present (GI), No Guarding due to palpation present (GI) and Yes No hepatosplenomegaly present Extremity: COMMON NORMALS: normal to inspection, capillary refill normal, no clubbing, cyanosis or edema, no calf tenderness and no pedal edema RIGHT LOWER EXTREMITY: Yes lower leg (hemosiderin scarring from varicose veins) LEFT LOWER EXTREMITY: Yes lower leg (hemosiderin scarring from varicose veins) Neuro: COMMON NORMALS: patient oriented x3 SENSORIUM/ORIENTATION: Yes alert, Yes oriented to person, Yes oriented to place and Yes oriented to time Skin: COMMON NORMALS: no rashes or lesions noted GENERAL SKIN EXAM: no rashes or lesions noted Data : 11/11/20 04:32 11/11/20 04:32 A&P Assessment and plan (1) Dysphagia: EGD performed yesterday. Waiting for report. Protonix 40 mg IV every 12 hours Status: Acute (2) Anemia: Monitor for recurrent bleeding. Status: Acute (3) GI bleed: Waiting for EGD report. Status: Acute (4) Hypokalemia: resolved Status: Acute Additional A&P Information History of mechanical mitral valve replacement. Normally on Coumadin. INR is not therapeutic, at 2.4. She was on Lovenox and Coumadin, but her INR has increased to 2.01 and her PT also increased to 23.50; therefore she has been taken off of the Lovenox and is currently only taking Coumadin due to high risk of bleeding. Atrial fibrillation, currently rate controlled. Restart home medication when she is able to take p.o. Hypothyroidism, continue home medication Coronary artery disease, asymptomatic currently COPD. Continue oxygen as needed. DuoNeb as needed. Other medical problems as outlined in past medical history Full code Currently on Coumadin. Additionally we will add SCDs for DVT prophylaxis Coding Level of Care Code Acute Phytochemistry Professor for Chg Fwd Exam Comprehensive Diagnoses Dysphagia R13.10 Anemia D64.9 GI bleed K92.2 Hypokalemia E87.6 Documented by User: Anastacio Saab MD 11/11/20 10:40 Subjective Subjective: Interval history: Patient on BiPAP when I enter the room. She is conversive. No particular complaints. Physical Exam Narrative: EXAM NARRATIVE: General exam no apparent distress Cardiovascular irregular, irregular with click noted Lungs clear but with diminished breath sounds at the bases Abdomen is soft with positive bowel sounds Extremities no cyanosis clubbing or edema Data : 11/11/20 04:32 11/11/20 04:32 A&P Additional A&P Information See notations above. Agree Dysphagia. Verbal report from EGD yesterday was given to me by surgery indicating she had esophagitis and gastritis with no active bleeding. I do not believe she had a food bolus. Secondary to this we will continue Protonix which has been switched to p.o. GI bleeding. Lovenox was started last night as INR was 1.8. This will be held this morning as INR is 2 and giving both is a significant risk of bleeding in this patient who is anemic and had recent GI bleeding. Will consult pharmacy for Coumadin management Respiratory failure issues following the procedure she had to be intubated for. She required BiPAP after procedure. This is secondary to some underlying chronic respiratory failure and CO2 retention for which she is on trilogy noninvasive ventilation at home. We will continue this in house Hypokalemia has resolved She required ICU care yesterday secondary to her mental status and need to go on noninvasive ventilation. Likely move out of the ICU today, and if continues to improve will go home tomorrow. Attestations Medical Necessity Statement*: Needs continued hospital stay for close monitoring secondary to respiratory failure requiring BiPAP and continued monitoring of GI bleeding and anemia with initiation of anticoagulation. Coding Level of Care Code Acute Phytochemistry Professor for g Fwd Exam Comprehensive Diagnoses Dysphagia R13.10 Anemia D64.9 GI bleed K92.2 Hypokalemia E87.6
--- NOTE | 2020-11-11 09:35 | PC.CHAP ---
Pastoral Care Encounter/Spiritual Assessment Type of Contact [] Declined oil spot washer visit [] Patient/Family/Request visit [] Outpatient visit [] Follow-up visit [] Physician referral [] Code/Alert [] Routine visit [] Staff referral [] Actively dying [] Patient sleeping [] Family support [] [] Out of room [] Palliative care [] [] Receiving care in room [] Pre-surgical visit [] Trauma [] Long length of stay [x] ICU visit [] Other: Relational/Emotional Strength [] Patient feels connected with others/family/visitors/staff [] Distress [] Loneliness/isolation [] Abandonment Spirituality of Patient [] Person of Vivian [] Attends Caodaism of their Vivian [] Believes in Prayer [] Reads Bible or Anabaptist materials [] There are Spiritual issues to be addressed Element Winding Machine Tender Interventions [x] Prayer [] Active listening [] Non-anxious presence [] Spiritual/emotional support [] Crisis/trauma care [] Spiritual counseling [] Bereavement support [] Provided bereavement packet [] Provided Bible/devotional materials [] Provided toy/stuffed animal, coloring book to patient or family member [] Provided Communion [] Anointing/[place] [] Salvation [x] Completed spiritual assessment [] Other: Impact on Illness or Injury [] Angry [] Fearful [] Anxious [] Often cries [] Exhaustion [] Unable to work [] Unable to attend episcopal [] Unable to walk/stand [] Unable to read [] Unable to drive [] Unable to eat/drink [] Unable to sleep [] Unable to be with family [] Patient intubated [] Other: Summary Time spent with patient
[2020-11-11] MEDS: levothyroxine 50 mcg Tablet PO (09:46)
[2020-11-11] MEDS: pantoprazole DR 40 mg Tablet PO ×2 (09:46→17:18)
[2020-11-11] MEDS: fluoxetine 10 mg Capsule PO (10:08)
--- NOTE | 2020-11-11 12:40 | PC.RESP ---
Pulmonary Rehab Information sent to patient.
[2020-11-11] MEDS: warfarin 2 mg Tablet 4 MG PO (14:29)
--- NOTE | 2020-11-11 16:35 | PC.NURSE ---
Pt transfered to room 252-1. Pt A&O x 3. Resp even and non-labored no distress noted. Pt had no c/o pain or discomfort at the time of transfer. Pt lying in bed call light in reach. Report given to med-surg nurse Karen.
--- NOTE | 2020-11-11 16:48 | PC.NURSE ---
ICU TRANSFER TRANSFERED FROM ICU PER ROSEANN JACOB TO ROOM 52-1 - PT A&O X4 - O2 3L NC PLACED ON PER THIS NURSE - AP RRR - LUNGS COARSE THROUGHOUT - ABD SOFT WITH NO DISTENTION - BS PRESENT - NOTED PT TO BE INCONTINENT - CURRENTLY DRY - BED PADDED - KADE SCD'S IN PLACE - KADE CALFS DOWN NOTED TO HAVE A DUSKY APPEARANCE - DAUGHTER AT SIDE STATES SHE'S BEEN LIKE THAT FOR YEARS - NOTED SMALL OPEN AREA TO RIGHT BUTTOCK - C/D/I WILL MONITOR - BRUISING NOTED TO LEFT FOREHEAD FROM PREVIOUS FALL - LARGE AREA OF BRUISING TO RIGHT HAND WITH PIID INTACT - KADE SCATTERED BRUISING - DAUGHTER AT SIDE - WILL MONITOR
[2020-11-11] MEDS: atorvastatin 40 mg Tablet PO (21:16)
[2020-11-11] MEDS: metoprolol tartrate 25 mg Tablet 12.5 MG PO (21:16)
[2020-11-12] VITALS (9 sets, daily range): BP systolic 138–163; BP diastolic 50–96; PULSE 55–78; RESP 17–24; TEMP 36.3–36.9; O2SAT 91–98
[2020-11-12 03:08] LABS: Basophils % 0.3 %; Eosinophils # 0.2 10^3/uL (0.0-0.8); Eosinophils % 4.1 %; Hematocrit 27.7 % (37.0-47.0); Lymphocytes # 0.5 10^3/uL (0.8-4.8); Lymphocytes % 12.3 %; Mean Corpuscular HGB Conc 28.9 g/dL (30.0-36.0); Mean Corpuscular Hemoglobin 28.8 pg (28.0-34.0); Mean Corpuscular Volume 99.6 fL (81-99); Mean Platelet Volume 9.5 fL (7.4-10.4); Monocytes # 0.3 10^3/uL (0.2-0.9); Monocytes % 8.4 %; Neutrophils # 2.74 10^3/uL (1.8-7.7); Neutrophils % 74.6 %; Nucleated Red Blood Cells % 0 %; Platelet Count 122 10^3/cmm (130-400); Red Blood Count 2.78 10^6/uL (4.1-5.3); Red Cell Distribution Width 15.6 % (12.1-15.1); White Blood Count 3.7 10^3/uL (4.0-10.0)
[2020-11-12 03:44] LABS: Alanine Aminotransferase < 5 U/L (0-33); Albumin Level 3.2 g/dL (3.5-5.2); Alkaline Phosphatase 151 IU/L (35-105); Anion Gap 4.1 (5-19); Aspartate Amino Transferase 13 U/L (0-32); Blood Urea Nitrogen 9 mg/dL (8-23); Chloride 98 mmol/L (98-107); Globulin 2.5 g/dL (1.3-4.6); Glucose 109 mg/dL (65-115); Osmolality Calculated 293 mOsm/kg (285-295); Potassium 3.1 mmol/L (3.5-5.1); Sodium 142 mmol/L (136-145); Total Bilirubin 1.3 mg/dL (0.15-1.2); Total Protein 5.7 g/dL (6.6-8.7)
[2020-11-12 03:50] LABS: Carbon Dioxide 43 mmol/L (22-29)
[2020-11-12 04:08] LABS: Calcium 8.3 mg/dL (8.5-10.5)
--- NOTE | 2020-11-12 08:40 | PM.PN ---
Documented by User: BENI Dela Cruz STDNT 11/12/20 08:50 Subjective Subjective: Interval history: Mrs. Garcia is a 80 yo female that presented with dysphagia and anemia 2 days ago. Today she states she feels SOB and has no appetite. She said she was only eating because she felt like she had to. she also stated she had some chest pain and feels like she has to burp and fart but can't. She denies NVD, difficulty swallowing, or pain while swallowing. Medications: Reviewed: Yes Vitals/I&O/Wt Last Vital Signs Temp 97.4 F L 11/12/20 07:35 Pulse 65 11/12/20 07:35 Resp 17 11/12/20 07:35 BP 138/50 11/12/20 07:35 Pulse Ox 96 11/12/20 07:35 11/11/20 11/12/20 11/12/20 22:59 06:59 14:59 Intake Total 360 / 360 Output Total 150 / 150 200 / 200 Balance 210 / 210 -200 / -200 Physical Exam Narrative: EXAM NARRATIVE: HEENT: Normocephalic Eye: Sclera /conjunctiva normal Respiratory and chest: Bilateral clear breath sounds on auscultation Cardiovascular: Normal S1 and S2 heart sounds Abdomen: Soft to palpation Neurological: Oriented to place person and time Skin: Intact, no lesions appreciated on gross exam Const: COMMON NORMALS: no acute distress, patient oriented x3 and alert EXAM LIMITATIONS: other limitations (bipap still on when I examined her) GENERAL APPEARANCE: cooperative and comfortable ORIENTATION/CONSCIOUSNESS: Yes awake, Yes oriented to person, Yes oriented to place and Yes oriented to time HENMT: COMMON NORMALS: normocephalic, atraumatic, hearing grossly normal bilaterally, external ears normal, Normal external nose present, Normal nasal mucous membranes and turbinates present, oropharynx normal, dentition normal and gingiva normal HEAD & SCALP: normal to inspection, normocephalic and atraumatic FACE & SINUS: normal facial exam NOSE: Normal external nose present, Normal nares present and Normal nasal mucous membranes and turbinates present EXTERNAL EAR: Yes external ears normal MOUTH: Normal oral and palatal mucosa present, lip normal, tongue normal, Normal salivary glands and ducts present and moist mucous membranes abnormal Eye: COMMON NORMALS: Equal, round and reactive pupils present, EOMs intact bilaterally, conjunctivae normal, no scleral icterus and no papilledema GENERAL EYE: appearance normal, both eyes and all related structures and normal light reflex CONJUNCTIVA: Yes conjunctivae normal PUPIL: Yes Equal, round and reactive pupils present DIRECT OPHTHALMOSCOPY: Yes normal light reflex and Yes no papilledema Neck/C-Spine: COMMON NORMALS: no JVD Resp: COMMON NORMALS: normal respiratory effort, No retractions, No use of accessory muscles and clear to auscultation bilaterally EFFORT & INSPECTION: Yes able to speak in complete sentences, Yes tachypneic, Yes labored and Yes uses accessory muscles AUSCULTATION: clear to auscultation bilaterally Cardio: COMMON NORMALS: no JVD, regular rate, regular rhythm, S2 normal heart sound present, No gallops present (Cardio), No murmurs present (Cardio), No rub (Cardio) and Peripheral pulses 2+ throughout RATE: regular rate RHYTHM: regular rhythm and abnormal rhythm irregularly irregular HEART SOUNDS: S2 normal heart sound present, 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 ) and Abnormal heart opening sounds (mechanical S1) PERIPHERAL PULSES: Peripheral pulses 2+ throughout GI: COMMON NORMALS: Normal to inspection, nondistended, normoactive bowel sounds present, Soft to palpation and No hepatosplenomegaly present INSPECTION: Yes normal to inspection AUSCULTATION: Yes normoactive bowel sounds PALPATION: Yes Soft to palpation, No Tenderness to palpation present (GI), No Guarding due to palpation present (GI) and Yes No hepatosplenomegaly present Extremity: COMMON NORMALS: normal to inspection, capillary refill normal, no clubbing, cyanosis or edema, no calf tenderness and no pedal edema Neuro: COMMON NORMALS: patient oriented x3 SENSORIUM/ORIENTATION: Yes alert, Yes oriented to person, Yes oriented to place and Yes oriented to time Skin: COMMON NORMALS: no rashes or lesions noted GENERAL SKIN EXAM: no rashes or lesions noted Data : 11/12/20 02:27 11/12/20 02:27 A&P Assessment and plan (1) Dysphagia: EGD performed yesterday. EGD found distal esophagitis with esophageal stricture and non-erosive gastritis. Her duodenum appeared fine. Protonix 40 mg IV every 12 hours Status: Acute (2) Anemia: Blood counts are similar to what they were day before yesterday. Monitor for recurrent bleeding. Status: Acute (3) GI bleed: No GI bleed seen on EGD. Status: Acute (4) Hypokalemia: K of 3.1 this morning. Give oral supplementation. Status: Acute Additional A&P Information See notations above. Agree Dysphagia. Verbal report from EGD yesterday was given to me by surgery indicating she had esophagitis and gastritis with no active bleeding. I do not believe she had a food bolus. Secondary to this we will continue Protonix which has been switched to p.o. GI bleeding. Lovenox was started last night as INR was 1.8. This will be held this morning as INR is 2 and giving both is a significant risk of bleeding in this patient who is anemic and had recent GI bleeding. Will consult pharmacy for Coumadin management Respiratory failure issues following the procedure she had to be intubated for. She required BiPAP after procedure. This is secondary to some underlying chronic respiratory failure and CO2 retention for which she is on trilogy noninvasive ventilation at home. We will continue this in house Hypokalemia has resolved Move out of the ICU yesterday, and if continues to improve will go home today. Coding Level of Care Code Acute Greenhouse Specialist for [facility] Fwd Exam Comprehensive Diagnoses Dysphagia R13.10 Anemia D64.9 GI bleed K92.2 Hypokalemia E87.6 Documented by User: Anastacio Saab MD 11/12/20 10:37 Subjective Subjective: Interval history: Reports she is short of breath, perhaps slightly worse than baseline. Able to swallow okay. Eager to go home today. Physical Exam Narrative: EXAM NARRATIVE: Patient examined by myself and I agree with the above. General exam no apparent distress Cardiovascular irregular, irregular Lungs diminished breath sounds bilaterally Abdomen is soft with positive bowel sounds Extremities no cyanosis clubbing or edema Data : 11/12/20 02:27 11/12/20 02:27 A&P Additional A&P Information Agree with above. See discharge summary from today. I encouraged the use of her trilogy which she has at home. Will provide home health and home physical therapy. Will inform respiratory company of her concerns of the fitting of her trilogy. Attestations Medical Necessity Statement*: Not applicable Coding Level of Care Code Acute Greenhouse Specialist for [facility] Fwd Exam Comprehensive Diagnoses Dysphagia R13.10 Anemia D64.9 GI bleed K92.2 Hypokalemia E87.6
[2020-11-12] MEDS: potassium chloride ER 20 mEq Tablet 40 MEQ PO (08:43)
[2020-11-12] MEDS: pantoprazole DR 40 mg Tablet PO (08:44)
[2020-11-12] MEDS: fluoxetine 10 mg Capsule PO (08:44)
[2020-11-12] MEDS: levothyroxine 50 mcg Tablet PO (08:44)
[2020-11-12] MEDS: bumetanide 1 mg Tablet 2 MG PO ×2 (08:44→14:12)
--- NOTE | 2020-11-12 11:15 | PM.DCS ---
Discharge Providers Date of Admission: 11/10/20 07:50 Date of Discharge: November 12, 2020 Attending Provider at Admission: Anastacio Saab MD Attending Provider at Discharge: Anastacio Saab MD Primary Care Provider: Michael Hampton DO Diagnoses at Discharge Discharge Diagnosis (1) Dysphagia: Status: Acute (2) Anemia: Status: Acute (3) GI bleed: Status: Acute (4) Hypokalemia: Status: Acute Reason for Visit Reason for Visit: THROAT ISSUES Hospital Course Hospital Course Iris is an 80-year-old white female who presented to the emergency department choking, and vomiting. There was concern of a food bolus. On admission her hemoglobin was noted to be 7.4. She is on chronic anticoagulation with Coumadin as well as some low-dose aspirin. 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 Her Coumadin was held. She was transfused 1 unit of packed red blood cells. Surgery was consulted for possible EGD. EGD occurred on November 11. Findings were distal esophagitis, some stricturing of the distal esophagus, gastritis, and hiatal hernia. No food bolus was noted. Postoperatively she did have some CO2 retention and required BiPAP. This is not surprising considering she has trilogy at home for her chronic respiratory conditions and CO2 retention. She was monitored until the following day when hemoglobin was still stable at 8. There was no evidence of ongoing bleeding. Coumadin had been resumed, and INR on discharge was 2.3. She was discharged home with home health and home physical therapy. She should wear her trilogy whenever sleeping, whenever napping and as needed. She needs an INR within the next 3 to 4 days for monitoring of her anticoagulation. Coumadin dosing was changed to 4 mg 3 times a week and 3 mg 4 times a week. Protonix 40 mg twice daily was added. Aspirin was discontinued. She has very high risk for readmission secondary to her comorbidities which I discussed with her family. Hopefully trilogy, home health and home physical therapy can prevent this. Physical Exam Narrative: EXAM NARRATIVE: General exam is no apparent distress Cardiovascular irregular, irregular with click Lungs clear but with diminished breath sounds bilaterally Abdomen is soft with positive bowel sounds Extremities no cyanosis clubbing or edema. Discharge Data Data Completed and Pending: Completed Studies During Hospitalization Category Date Time Status XR chest 1V mary ble [id number] Stat Exams 11/10/20 06:05 Completed Pending at discharge Category Date Time Status Immunochemical Fe jose carlos OCB Routine Lab 11/10/20 07:34 Ordered Transfusion React ion Stat Lab 11/10/20 11:35 Ordered Pathology: Surgic al [PTH] Routine Pth 11/10/20 18:38 Received Labs from last 24 hours 11/12/20 11/12/20 11/12/20 02:27 02:27 02:27 WBC 3.7 L RBC 2.78 L Hgb 8.0 L Hct 27.7 L MCV 99.6 H MCH 28.8 MCHC 28.9 L RDW 15.6 H Plt Count 122 L MPV 9.5 Neut % (Auto) 74.6 Lymph % (Auto) 12.3 [place] % (Auto) 8.4 Eos % (Auto) 4.1 Baso % (Auto) 0.3 Neut # (Auto) 2.74 Lymph # (Auto) 0.5 L [place] # (Auto) 0.3 Eos # (Auto) 0.2 Baso # (Auto) 0.0 Nucleated RBC % (a uto) 0 Nucleated RBCs # 0.0 PT 26.20 H INR 2.30 H Sodium 142 Potassium 3.1 L Chloride 98 Carbon Dioxide 43 H* Anion Gap 4.1 L BUN 9 Creatinine 0.6 GFR Calculation Not Reportable Glucose 109 Calculated Osmolal ity 293 Calcium 8.3 L Total Bilirubin 1.3 H AST 13 ALT < 5 Alkaline Phosphata se 151 H Total Protein 5.7 L Albumin 3.2 L Globulin 2.5 Vitals: Last Vital Signs Temp 97.4 F L 11/12/20 07:35 Pulse 78 11/12/20 09:00 Resp 18 11/12/20 09:00 BP 138/50 11/12/20 07:35 Pulse Ox 98 11/12/20 09:00 Discharge Plan Discharge Patient Disposition: Home Health Service Condition: Stable Prescriptions: New pantoprazole 40 mg Tablet,Delayed Release (Dr/Ec) 40 mg PO BID Qty: 60 RF: 0 warfarin [Jantoven] 3 mg Tablet 3 mg PO SuTuThSa@1400 Qty: 16 RF: 0 warfarin 2 mg Tablet 4 mg PO MoWeFr@1400 Qty: 24 RF: 0 Continued polyethylene glycol 3350 [Miralax] 17 gram/dose powder 17 gm PO DAILY PRN (Reason: Constipation) RF: 0 fluoxetine 10 mg capsule 10 mg PO DAILY@ RF: 0 rosuvastatin [Crestor] 10 mg tablet 10 mg PO DAILY@ RF: 0 carbidopa-levodopa 10-100 mg tablet,disintegrating 1 tab PO TID RF: 0 levothyroxine 50 mcg capsule 50 mcg PO DAILY@ RF: 0 tolterodine 2 mg tablet 2 mg PO BID@ RF: 0 bumetanide 2 mg tablet 2 mg PO BID@ RF: 0 potassium chloride [Klor-Con 10] 10 mEq tablet extended release 20 meq PO BID@ RF: 0 metoprolol tartrate 25 mg tablet 12.5 mg PO DAILY@ RF: 0 ferrous gluconate 324 mg (37.5 mg iron) tablet 324 mg PO BID@ RF: 0 sennosides-docusate sodium 8.6-50 mg tablet 2 tab PO BID PRN (Reason: Constipation) RF: 0 Discontinued aspirin [Adult Aspirin Regimen] 81 mg tablet,delayed release (DR/EC) 81 mg PO DAILY@ RF: 0 warfarin 3 mg tablet 3 mg PO DIRECTED Qty: 60 RF: 1 warfarin 4 mg tablet 4 mg PO DIRECTED Qty: 60 RF: 1 Hold Instructions: Resume on 04/27/20. RECHECK INR ON MONDAY, dosing based on repeat INR tramadol 50 mg tablet 50 mg PO TID PRN (Reason: pain) Qty: 7 RF: 0 Discharge Orders: Discharge Order (Routine); Ordered 11/12/20 Ordered By: Anastacio Saab Referrals: Michael Hampton, [Primary Care Provider] - 4-7 days (Follow-up with primary care provider by Monday. INR on follow-up.) Discharge Diet: As Directed and Cardiac Discharge Activity: Increase activity as tolerated Activity Restrictions/Additional Instructions: Oxygen on discharge at 2 L Soft diet with ground foods. Chew foods well Follow-up with primary care provider by Monday with INR on follow-up Note that your dose of Coumadin on discharge is 4 mg 3 times a week 3 mg all other days Wear your trilogy all the time when you sleep, and whenever you take naps during the day or have shortness of breath. Discharge Attestations Time Spent in Discharge Care*: greater than 30 min Status at Discharge: Cognitive status at discharge: cognitively intact, Behavioral status at discharge: cooperative, Quality Metrics Clinical Quality Measures During this hospital stay, did patient experience: None Coding Level of Care Code Acute Pigment Processor for [facility] Fwd Diagnoses Dysphagia R13.10 Anemia D64.9 GI bleed K92.2 Hypokalemia E87.6
[2020-11-12] MEDS: polyethylene glycol 3350 Pkt 17 gm PO (12:17)
[2020-11-12] MEDS: warfarin 3 mg Tablet PO (14:11)
== END 2020-11-12 15:00 | disposition home health service (06) | DRG 392 ==
LOC: ER 08:18 → MEDSURG 10:00 → ICU 21:27 → MEDSURG 11-11 16:08
PROVIDERS: Anesthesiology; Hospitalist; Surgery; Admitting Provider Internal Medicine; Emergency Provider Family Medicine; PCP Family Medicine; Visit Provider Internal Medicine
PROC: 0DJ08ZZ Inspection of Upper Intestinal Tract, Via Natural or Artificial Opening Endoscopic (ICD-10-PCS; CPT 43235; principal; 2020-11-10 12:15)
DX: R13.10 Dysphagia, unspecified (principal); K92.2 Gastrointestinal hemorrhage, unspecified; J96.12 Chronic respiratory failure with hypercapnia; I48.91 Unspecified atrial fibrillation; I25.10 Atherosclerotic heart disease of native coronary artery without angina pectoris; Z95.2 Presence of prosthetic heart valve; J44.9 Chronic obstructive pulmonary disease, unspecified; F32.9 Major depressive disorder, single episode, unspecified; I50.9 Heart failure, unspecified; I11.0 Hypertensive heart disease with heart failure; K21.9 Gastro-esophageal reflux disease without esophagitis; E03.9 Hypothyroidism, unspecified; D50.9 Iron deficiency anemia, unspecified; G47.33 Obstructive sleep apnea (adult) (pediatric); G20 Parkinson's disease; K22.2 Esophageal obstruction; Z96.652 Presence of left artificial knee joint; Z87.891 Personal history of nicotine dependence; E87.6 Hypokalemia; K44.9 Diaphragmatic hernia without obstruction or gangrene; K20.90 Esophagitis, unspecified without bleeding; K29.70 Gastritis, unspecified, without bleeding
CPT/HCPCS: 12345; 36415; 36430; 36600; 43239; 71045; 80053; 82803; 83735; 84484; 85014; 85018; 85025; 85610; 86850; 86900; 86920; 88305; 93005; 94640; 94660; 94664; 96372; 97110; 97161; 97530; 99283; C9113; J0131; J0330; J1200; J1650; J1940; J2405; J2704; J3010; J3480; J3490; J7030; P9016

== ENCOUNTER 2020-12-31 08:29 | Inpatient (IN) | payer MEDICARE, MEDICAID, SELFPAY ==
[2020-12-31] VITALS (49 sets, daily range): BP systolic 82–148; BP diastolic 31–70; PULSE 70–101; RESP 1–41; TEMP 36.9–37.1; O2SAT 60–990; BMI 27.3
--- NOTE | 2020-12-31 08:37 | XR_ITS ---
WS: [id number] Portable AP upright chest, 12/31/2020 Clinical Data: dyspnea Comparison: Portable chest, 11/10/2020. Findings: The pulmonary opacity in the right upper lobe has not changed. The heart remains enlarged. The aortic arch and descending aorta show calcification and tortuosity. 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 XR/XR chest 1V portable [id number] Impression: 1. No change in mild right upper lobe opacity. 2. Cardiomegaly and atherosclerosis.
--- NOTE | 2020-12-31 08:47 | ED_ITS ---
HPI - SOB/Dyspnea General: Chief Complaint: Shortness of Breath/Dyspnea Stated Complaint: SOB/ BLOODY NOSE/ NOT FEELING WELL Time Seen by Provider: 12/31/20 08:37 History of Present Illness: HPI Narrative: The patient is an 80-year-old female with past medical history CHF, COPD with chronic respiratory failure on oxygen 2 L at home, and atrial fibrillation. She got her second Covid vaccination yesterday. This morning she called 911 because she was feeling short of breath. First responders found her satting 70% and in respiratory distress. EMS gave her an albuterol treatment with significant improvement and she is now satting in the upper 90s on 4 L of oxygen. She admits feeling cold, chills, generally weak and short of breath. Denies chest pain. MD elicited complaint: shortness of breath Pertinent past history: COPD Severity: moderate Exacerbating factors: exertion Relieving factors: nothing Known history of: COPD Associated symptoms: Reports no associated symptoms; Deny abdominal pain, chest pain, dizziness, extremity pain, orthopnea, palpitations or polyuria Review of Systems General: Reports: 10 or more systems reviewed and unremarkable except in HPI and below Const: Reports: chills, body aches and fatigue Eyes: Denies: change in vision, blurry vision or eye redness ENMT: Denies: throat pain, swelling of lips/tongue, ear or mastoid pain or nasal congestion Card: Denies: chest pain, palpitations, irregular heart rhythm, edema, dyspnea on exertion or orthopnea Resp: Reports: dyspnea and wheezing; Denies: productive cough or non-productive cough GI: Denies: abdominal pain, diarrhea or GI cramping : Denies: flank pain, difficulty voiding, urinary frequency or urinary urge ncy Musc: Denies: neck pain, back pain, extremity pain, joint pain, joint redness, limited range of motion or muscle weakness Skin/Breast: Denies: rash, pruritus, erythema, skin pain or skin tenderness Neuro: Denies: headache(s), numbness in extremities, weakness in extremities, sensory changes, difficulty walking, dizziness, confusion or Slurred speech present Psych: Denies: anxiety or depression Endo: Denies: polyuria All/Imm: Denies: urticaria, throat swelling or tongue swelling PFSH ED PFSH: Medical History Afib Anemia -baseline Hg around 9-10 -follow with Dr Bullock CAD (coronary artery disease) Chronic anticoagulation Due to mechanical mitral valve; coumadin Chronic hypercapnic respiratory failure COPD (chronic obstructive pulmonary disease) Depression On fluoxetine with good control Diastolic CHF GERD (gastroesophageal reflux disease) PPI HTN (hypertension) Hypothyroidism -continue levothyroxine Iron deficiency anemia Has required transfusion in past, last egd and colonoscopy ~2017 with diverticulosis and internal hemorrhoids, no clear source of bleeding SONYA (obstructive sleep apnea) Uses 2 L of oxygen at night does not use CPAP Parkinson disease Follows up with Dr. Rainey in [place] Schatzki's ring Weakness Surgical History History of bilateral tubal ligation History of cholecystectomy History of total knee arthroplasty Left Mitral valve replaced Mechanical, on coumadin Family History Mother CAD (coronary artery disease) Diabetes Other Hypertension Social History Smoking and tobacco status: former smoker Quit status (tobacco): has quit using tobacco Year quit tobacco: 1994 - PPD x 15 Years Second hand smoke exposure: No Alcohol intake: never Caregiver/support person: Yes Household members: spouse and children Housing: House Marital status: Current occupational status: retired and disabled History of recent travel: No Current gender identity: Female Physical Exam Const: COMMON NORMALS: average body habitus, alert and well nourished GENERAL APPEARANCE: cooperative, well kempt, well developed and ill appearing ORIENTATION/CONSCIOUSNESS: Yes awake, Yes oriented to person, Yes oriented to place and Yes oriented to time OTHER: Generally weak. No focal weakness. HENMT: COMMON NORMALS: normocephalic, external ears normal and Normal external nose present HEAD & SCALP: normal to inspection and normocephalic NOSE: Normal external nose present EXTERNAL EAR: Yes external ears normal MOUTH: Normal oral and palatal mucosa present THROAT: posterior oropharynx normal Eye: COMMON NORMALS: Equal, round and reactive pupils present and EOMs intact bilaterally GENERAL EYE: appearance normal, both eyes and all related structures PUPIL: Yes Equal, round and reactive pupils present Neck/C-Spine: COMMON NORMALS: full ROM, no lymphadenopathy, no meningeal signs and no JVD GENERAL: Yes normal visual inspection Lymph: LYMPHATIC: no lymphadenopathy noted Chest: COMMONS NORMALS: normal inspection of the chest and normal palpation of entire chest wall Resp: EFFORT & INSPECTION: Yes able to speak in complete sentences, Yes tachypneic, Yes respiratory distress, Yes labored and Yes uses accessory muscles AUSCULTATION: wheezes expiratory wheezes and throughout and diminished lung sounds Cardio: COMMON NORMALS: no JVD, regular rate, regular rhythm, S1 normal heart sound present, S2 normal heart sound present and Peripheral pulses 2+ throughout RATE: regular rate RHYTHM: regular rhythm HEART SOUNDS: S1 normal heart sound present and S2 normal heart sound present PERIPHERAL PULSES: Peripheral pulses 2+ throughout GI: COMMON NORMALS: Normal to inspection, nondistended, normoactive bowel sounds present, Soft to palpation, non-tender and no masses INSPECTION: Yes normal to inspection PALPATION: Yes Soft to palpation : COMMON NORMALS: Yes no CVA tenderness BLADDER/KIDNEY EXAM: Yes no CVA tenderness Back/Pelvis: COMMON NORMALS: no CVA tenderness, thoracic and lumbar spine normal to inspection, no thoracic nor lumbar tenderness and thoraco-lumbar ROM normal Extremity: COMMON NORMALS: normal to inspection, full ROM, capillary refill normal, no joint enlargement and no pedal edema GENERAL: Yes normal exam except as noted Neuro: COMMON NORMALS: CN's II-XII intact bilaterally, moves all extremities, no focal motor deficits, no sensory deficits noted and gait normal SENSORIUM/ORIENTATION: Yes alert, Yes oriented to person, Yes oriented to place and Yes oriented to time MENINGEAL SIGNS: Yes no meningeal signs Psych: COMMON NORMALS: mental status grossly normal, Normal thought process present, cooperative, normal affect and speech normal APPEARANCE: Yes well kempt ATTITUDE: Yes calm SPEECH: Yes normal speech THOUGHT PROCESS: Normal thought process present Skin: COMMON NORMALS: no rashes or lesions noted GENERAL SKIN EXAM: no rashes or lesions noted Course Vital Signs: Vital signs: Vital Signs Temperature 98.8 F 12/31/20 14:00 Pulse Rate 87 12/31/20 14:25 Respiratory Rate 27 H 12/31/20 14:25 Blood Pressure 137/64 12/31/20 14:15 Pulse Oximetry 100 12/31/20 14:25 MDM - SOB/Dyspnea MDM Narrative: Medical decision making narrative: Patient came to the ER in respiratory distress and was placed on BiPAP. She was started on IV antibiotics, patient's. Her condition improved and she was stable for admission to the ICU. Chest x-ray also shows right upper lobe pneumonia. Dr. Saab accepts Lab Data: Labs: Lab Results 12/31/20 12/31/20 12/31/20 Range/Units 07:59 07:59 07:59 WBC 4.7 (4.0-10.0) 10^3/ uL RBC 3.64 L (4.1-5.3) 10^6/u L Hgb 10.2 L (11.5-15.3) g/dL Hct 35.4 L (37.0-47.0) % MCV 97.3 (81-99) fL MCH 28.0 (28.0-34.0) pg MCHC 28.8 L (30.0-36.0) g/dL RDW 15.8 H (12.1-15.1) % Plt Count 121 L (130-400) 10^3/c mm MPV 10.5 H (7.4-10.4) fL Neut % (Auto) 73.9 % Lymph % (Auto) 16.3 % [place] % (Auto) 7.9 % Eos % (Auto) 0.9 % Baso % (Auto) 0.6 % Neut # (Auto) 3.44 (1.8-7.7) 10^3/u L Lymph # (Auto) 0.8 (0.8-4.8) 10^3/u L [place] # (Auto) 0.4 (0.2-0.9) 10^3/u L Eos # (Auto) 0.0 (0.0-0.8) 10^3/u L Baso # (Auto) 0.0 (0.0-0.1) 10^3/u L Nucleated RBC % (a uto) 0 % Nucleated RBCs # 0.0 /100WBC D-Dimer 0.28 (0-0.59) ug/mIFE U Specimen Type Sample Site ABG pH (7.35-7.45) ABG pCO2 (35-45) mmHg ABG pO2 (80.0-100.0) mmH g ABG HCO3 (22-26) mmol/L ABG O2 Saturation ABG Base Excess (-2.0-2.0) mmol/ L César Test A-a O2 Gradient Hematocrit (37-47) % Hgb O2 Saturation (95-100) % Carboxyhemoglobin (0.4-20.1) %THgb Methemoglobin (0.4-1.5) % Total Hemoglobin (12-16) g/dL Ionized Calcium (1.1-1.4) mmol/L O2 Delivery Device O2 Liters/Min % FiO2 % Bilingual Sales Assistant ID Sodium 145 (136-145) mmol/L Potassium 3.3 L (3.5-5.1) mmol/L Chloride 100 (98-107) mmol/L Carbon Dioxide 40 H (22-29) mmol/L Anion Gap 8.3 (5-19) BUN 12 (8-23) mg/dL Creatinine 0.7 (0.5-0.9) mg/dL GFR Calculation Not Reportable Glucose 107 (65-115) mg/dL Calculated Osmolal ity 300 H (285-295) mOsm/k g Lactate (0.5-2.2) mmol/L Calcium 8.3 L (8.5-10.5) mg/dL Total Bilirubin 0.8 (0.15-1.2) mg/dL AST 11 (0-32) U/L ALT < 5 (0-33) U/L Alkaline Phosphata se 193 H (35-105) IU/L Troponin T Baselin e (0-10) ng/L Troponin T 120 Min bryson (0-10) ng/L Delta Troponin T (0-10) ABS# NT-Pro-B Natriuret Pep 1436 H (0-450) pg/mL Total Protein 6.7 (6.6-8.7) g/dL Albumin 3.9 (3.5-5.2) g/dL Globulin 2.8 (1.3-4.6) g/dL SARS-CoV-2 Ag (Rap id) (Negative) 12/31/20 12/31/20 12/31/20 Range/Units 07:59 07:59 09:04 WBC (4.0-10.0) 10^3/ uL RBC (4.1-5.3) 10^6/u L Hgb (11.5-15.3) g/dL Hct (37.0-47.0) % MCV (81-99) fL MCH (28.0-34.0) pg MCHC (30.0-36.0) g/dL RDW (12.1-15.1) % Plt Count (130-400) 10^3/c mm MPV (7.4-10.4) fL Neut % (Auto) % Lymph % (Auto) % [place] % (Auto) % Eos % (Auto) % Baso % (Auto) % Neut # (Auto) (1.8-7.7) 10^3/u L Lymph # (Auto) (0.8-4.8) 10^3/u L [place] # (Auto) (0.2-0.9) 10^3/u L Eos # (Auto) (0.0-0.8) 10^3/u L Baso # (Auto) (0.0-0.1) 10^3/u L Nucleated RBC % (a uto) % Nucleated RBCs # /100WBC D-Dimer (0-0.59) ug/mIFE U Specimen Type Arterial Sample Site Radial, right ABG pH 7.35 (7.35-7.45) ABG pCO2 71.1 H* (35-45) mmHg ABG pO2 120.0 H (80.0-100.0) mmH g ABG HCO3 39.2 H (22-26) mmol/L ABG O2 Saturation 99.1 ABG Base Excess 11.8 H (-2.0-2.0) mmol/ L Cséar Test Pos A-a O2 Gradient Not Reportable Hematocrit 26.9 L (37-47) % Hgb O2 Saturation 97.0 (95-100) % Carboxyhemoglobin 1.2 (0.4-20.1) %THgb Methemoglobin 0.9 (0.4-1.5) % Total Hemoglobin 8.8 L (12-16) g/dL Ionized Calcium 1.1 (1.1-1.4) mmol/L O2 Delivery Device Nc O2 Liters/Min 2.0 % FiO2 28.0 % Bilingual Sales Assistant ID Amh Sodium 148.0 H (136-145) mmol/L Potassium 3.4 L (3.5-5.1) mmol/L Chloride (98-107) mmol/L Carbon Dioxide (22-29) mmol/L Anion Gap (5-19) BUN (8-23) mg/dL Creatinine (0.5-0.9) mg/dL GFR Calculation Glucose 122.0 H (65-115) mg/dL Calculated Osmolal ity (285-295) mOsm/k g Lactate 1.0 (0.5-2.2) mmol/L Calcium (8.5-10.5) mg/dL Total Bilirubin (0.15-1.2) mg/dL AST (0-32) U/L ALT (0-33) U/L Alkaline Phosphata se (35-105) IU/L Troponin T Baselin e 15 H (0-10) ng/L Troponin T 120 Min bryson (0-10) ng/L Delta Troponin T (0-10) ABS# NT-Pro-B Natriuret Pep (0-450) pg/mL Total Protein (6.6-8.7) g/dL Albumin (3.5-5.2) g/dL Globulin (1.3-4.6) g/dL SARS-CoV-2 Ag (Rap id) (Negative) 12/31/20 12/31/20 12/31/20 Range/Units 09:10 10:50 11:08 WBC (4.0-10.0) 10^3/ uL RBC (4.1-5.3) 10^6/u L Hgb (11.5-15.3) g/dL Hct (37.0-47.0) % MCV (81-99) fL MCH (28.0-34.0) pg MCHC (30.0-36.0) g/dL RDW (12.1-15.1) % Plt Count (130-400) 10^3/c mm MPV (7.4-10.4) fL Neut % (Auto) % Lymph % (Auto) % [place] % (Auto) % Eos % (Auto) % Baso % (Auto) % Neut # (Auto) (1.8-7.7) 10^3/u L Lymph # (Auto) (0.8-4.8) 10^3/u L [place] # (Auto) (0.2-0.9) 10^3/u L Eos # (Auto) (0.0-0.8) 10^3/u L Baso # (Auto) (0.0-0.1) 10^3/u L Nucleated RBC % (a uto) % Nucleated RBCs # /100WBC D-Dimer (0-0.59) ug/mIFE U Specimen Type Arterial Sample Site Radial, right ABG pH 7.36 (7.35-7.45) ABG pCO2 68.8 H* (35-45) mmHg ABG pO2 80.3 (80.0-100.0) mmH g ABG HCO3 39.0 H (22-26) mmol/L ABG O2 Saturation 96.1 ABG Base Excess 11.5 H (-2.0-2.0) mmol/ L César Test Pos A-a O2 Gradient 8.6 Hematocrit 30.5 L (37-47) % Hgb O2 Saturation 94.1 L (95-100) % Carboxyhemoglobin 1.3 (0.4-20.1) %THgb Methemoglobin 0.9 (0.4-1.5) % Total Hemoglobin 10.0 L (12-16) g/dL Ionized Calcium 1.2 (1.1-1.4) mmol/L O2 Delivery Device Bipap O2 Liters/Min % FiO2 32.0 % Bilingual Sales Assistant ID Amh Sodium 146.0 H (136-145) mmol/L Potassium 3.4 L (3.5-5.1) mmol/L Chloride (98-107) mmol/L Carbon Dioxide (22-29) mmol/L Anion Gap (5-19) BUN (8-23) mg/dL Creatinine (0.5-0.9) mg/dL GFR Calculation Glucose 115.0 (65-115) mg/dL Calculated Osmolal ity (285-295) mOsm/k g Lactate (0.5-2.2) mmol/L Calcium (8.5-10.5) mg/dL Total Bilirubin (0.15-1.2) mg/dL AST (0-32) U/L ALT (0-33) U/L Alkaline Phosphata se (35-105) IU/L Troponin T Baselin e (0-10) ng/L Troponin T 120 Min bryson 14.10 H (0-10) ng/L Delta Troponin T -0.90 L (0-10) ABS# NT-Pro-B Natriuret Pep (0-450) pg/mL Total Protein (6.6-8.7) g/dL Albumin (3.5-5.2) g/dL Globulin (1.3-4.6) g/dL SARS-CoV-2 Ag (Rap id) Negative (Negative) Discharge Plan Discharge Patient Disposition: Admitted As Inpatient Admit Provider: Anastacio Saab Clinical Impression: Acute respiratory failure, COPD (chronic obstructive pulmonary disease), Community acquired pneumonia Condition: Stable Coding Level of Care Code ED Stock Control Clerk for Zackeryg Fwd Exam Comprehensive
[2020-12-31] MEDS: albuterol 8 gm MDI 2 PUFF INHALATION (08:59)
[2020-12-31 09:15] LABS: ABG PH Result 7.35 (7.35-7.45); Arterial Blood Gas Hematocrit 26.9 % (37-47); Base Excess ABG 11.8 mmol/L (-2.0-2.0); Blood Gas Allen Test Pos; Blood Gas Operator Identificat AMH; Blood Gas Sample Site Radial, right; Blood Gas Sample Type Arterial; Carboxyhemoglobin 1.2 %THgb (0.4-20.1); HCO3 ABG 39.2 mmol/L (22-26); Ionized Calcium Level - ABG 1.1 mmol/L (1.1-1.4); Methemoglobin 0.9 % (0.4-1.5); Oxygen Device NC; Oxygen Saturation ABG 99.1; Potassium Level - ABG 3.4 mmol/L (3.5-5.0); Total Hemoglobin 8.8 g/dL (12-16)
[2020-12-31 09:17] LABS: ABG PCO2 71.1 mmHg (35-45)
[2020-12-31 09:23] LABS: Basophils % 0.6 %; Eosinophils % 0.9 %; Hematocrit 35.4 % (37.0-47.0); Hemoglobin 10.2 g/dL (11.5-15.3); Lymphocytes # 0.8 10^3/uL (0.8-4.8); Lymphocytes % 16.3 %; Mean Corpuscular HGB Conc 28.8 g/dL (30.0-36.0); Mean Corpuscular Volume 97.3 fL (81-99); Mean Platelet Volume 10.5 fL (7.4-10.4); Monocytes # 0.4 10^3/uL (0.2-0.9); Monocytes % 7.9 %; Neutrophils # 3.44 10^3/uL (1.8-7.7); Neutrophils % 73.9 %; Nucleated Red Blood Cells % 0 %; Platelet Count 121 10^3/cmm (130-400); Red Blood Count 3.64 10^6/uL (4.1-5.3); Red Cell Distribution Width 15.8 % (12.1-15.1); White Blood Count 4.7 10^3/uL (4.0-10.0)
[2020-12-31 09:37] LABS: D Dimer 0.28 ug/mIFEU (0-0.59)
[2020-12-31 09:51] LABS: Alanine Aminotransferase < 5 U/L (0-33); Albumin Level 3.9 g/dL (3.5-5.2); Alkaline Phosphatase 193 IU/L (35-105); Anion Gap 8.3 (5-19); Aspartate Amino Transferase 11 U/L (0-32); Blood Urea Nitrogen 12 mg/dL (8-23); Calcium 8.3 mg/dL (8.5-10.5); Carbon Dioxide 40 mmol/L (22-29); Chloride 100 mmol/L (98-107); Globulin 2.8 g/dL (1.3-4.6); Glucose 107 mg/dL (65-115); NT Pro B Type Natriuretic Pept 1436 pg/mL (0-450); Osmolality Calculated 300 mOsm/kg (285-295); Potassium 3.3 mmol/L (3.5-5.1); Sodium 145 mmol/L (136-145); Total Bilirubin 0.8 mg/dL (0.15-1.2); Total Protein 6.7 g/dL (6.6-8.7)
[2020-12-31 10:14] LABS: SARS Covid-2 Antigen Negative (Negative)
[2020-12-31 10:16] LABS: Troponin(5th) Baseline 15 ng/L (0-10)
--- NOTE | 2020-12-31 10:40 | ECG_ITS ---
[facility] Test Date: 2020-12-31 Pat Name: Iris Garcia Department: Room: Gender: Female Cotton Classer: : 1940 Requested By: Fili Brooks Order Number: [id number] Krupa MD: Tere Teixeira M.D. Measurements Intervals [place] Rate: 70 P: NM: QRS: 57 QRSD: 106 T: 63 QT: 390 QTc: 422 Interpretive Statements ATRIAL FIBRILLATION NONSPECIFIC ST & T-WAVE ABNORMALITY ABNORMAL RHYTHM ECG Compared to ECG 11/10/2020 11:26:21 Ventricular premature complex(es) no longer present Aberrant conduction of supraventricular beat(s) no longer present T-wave abnormality still present Electronically Signed On 12-31-2020 22:23:40 STEAM PLANT OPERATOR by Tere Teixeira M.D. [id number]
[2020-12-31 11:19] LABS: ABG PH Result 7.36 (7.35-7.45); Alveolar-Arterial Oxygen Gradi 8.6 mmHg (5-10); Arterial Blood Gas Hematocrit 30.5 % (37-47); Base Excess ABG 11.5 mmol/L (-2.0-2.0); Blood Gas Allen Test Pos; Blood Gas Operator Identificat AMH; Blood Gas Sample Site Radial, right; Blood Gas Sample Type Arterial; Carboxyhemoglobin 1.3 %THgb (0.4-20.1); HGB O2 Sat 94.1 % (95-100); Ionized Calcium Level - ABG 1.2 mmol/L (1.1-1.4); Methemoglobin 0.9 % (0.4-1.5); Oxygen Device BIPAP; Oxygen Saturation ABG 96.1; PO2 ABG 80.3 mmHg (80.0-100.0); Potassium Level - ABG 3.4 mmol/L (3.5-5.0)
[2020-12-31 11:23] LABS: ABG PCO2 68.8 mmHg (35-45)
[2020-12-31] MEDS: levofloxacin-dextrose 5 % 750 MG/150 ML PREMIX 100 MG IV (13:13)
[2020-12-31 13:46] LABS: Add Urine Microscopic? YES; Bilirubin Urine Neg (Negative); Blood Urine 3+ (Negative); Glucose Urine UA Norm (Normal); Ketones Urine Negative (Negative); Leukocyte Esterase Urine Negative (Negative); Nitrate Urine Negative (Negative); Protein Urine Neg (Negative); Urine Appearance Hazy (CLEAR); Urine Color Yellow (Yellow); Urobilinogen Urine Norm (Negative); pH Urine 5 (5-7)
[2020-12-31 13:56] LABS: Add Urine Culture? No; Bacteria Urine TRACE /hpf
--- NOTE | 2020-12-31 13:59 | PM.HP ---
Providers/Chief Complaint Admitting Physician: Anastacio Saab MD Primary Care Provider: Michael Hampton DO Chief Complaint: SOB/ BLOODY NOSE/ NOT FEELING WELL History of Present Illness Iris Garcia is a 80 year old female who presents to the emergency department with complaints of shortness of breath. From my understanding she got her second Covid shot yesterday. Last night she had some difficulty breathing, and some aching. She continued to have difficulty breathing today and was brought into the emergency department. Patient has significant chronic respiratory failure for which she is supposed to use a trilogy. is present with her reports that she uses this sometimes during the day, for perhaps as many as 5 hours while awake but hardly ever uses at night. No history of fever. Does have wheezing and cough. Has had history of frequent hospitalizations in the past secondary to COPD exacerbation and chronic respiratory failure. She typically is on 2 L of oxygen. Review of Systems General: Reports: 10 or more systems reviewed and unremarkable except in HPI and below Const: Denies: fever(s) or chills Eyes: Denies: change in vision ENMT: Denies: throat pain Card: Denies: chest pain Resp: Reports: dyspnea and non-productive cough GI: Denies: abdominal pain or vomiting : Denies: flank pain Musc: Denies: neck pain Skin/Breast: Denies: rash Neuro: Denies: headache(s) Psych: Denies: anxiety or depression Endo: Denies: polyuria Jesus Alberto/Lymph: Denies: easy bruising All/Imm: Denies: urticaria Medications/Allergies Home Medications Medication Instructions Recorded Confirmed Last Taken Type fluoxetine 10 mg capsule 10 mg PO DAILY@ cap 11/06/19 12/31/20 12/30/20 History polyethylene glycol 3350 17 17 gm PO DAILY PRN 11/06/19 12/31/20 02/25/20 History gram/dose oral powder rosuvastatin 10 mg tablet 10 mg PO DAILY@11/06/19 12/31/20 12/30/20 History carbidopa 10 mg-levodopa 100 mg 1 tab PO TID tab 03/12/20 12/31/20 12/30/20 History disintegrating tablet tolterodine 2 mg tablet 2 mg PO BID@03/12/20 12/31/20 12/30/20 History levothyroxine 50 mcg capsule 50 mcg PO DAILY@05/21/20 12/31/20 12/30/20 History bumetanide 2 mg PO DAILY@0900 11/10/20 12/31/20 12/30/20 History ferrous gluconate 324 mg PO BID@11/10/20 12/31/20 12/30/20 History metoprolol tartrate 12.5 mg PO DAILY@11/10/20 12/31/20 12/30/20 History potassium chloride [Klor-Con 10] 20 meq PO BID@11/10/20 12/31/20 12/30/20 History sennosides-docusate sodium 2 tab PO BID PRN 11/10/20 12/31/20 Unknown History warfarin [Jantoven] 3 mg PO SuTuThSa@1400 #16 tab 11/12/20 12/31/20 Unknown Rx pantoprazole 40 mg PO BID@0900,2100 12/31/20 12/31/20 12/30/20 History warfarin See Rx Instructions .ROUTE .COMPLEX 12/31/20 12/31/20 12/30/20 History Allergies Allergy/AdvReac Type Severity Reaction Status Date / Time penicillin G Allergy UNK Verified 12/31/20 08:42 PFSH Acute PFSH: Medical History Afib Anemia -baseline Hg around 9-10 -follow with Dr Bullock CAD (coronary artery disease) Chronic anticoagulation Due to mechanical mitral valve; coumadin Chronic hypercapnic respiratory failure COPD (chronic obstructive pulmonary disease) Depression On fluoxetine with good control Diastolic CHF GERD (gastroesophageal reflux disease) PPI HTN (hypertension) Hypothyroidism -continue levothyroxine Iron deficiency anemia Has required transfusion in past, last egd and colonoscopy ~2017 with diverticulosis and internal hemorrhoids, no clear source of bleeding SONYA (obstructive sleep apnea) Uses 2 L of oxygen at night does not use CPAP Parkinson disease Follows up with Dr. Rainey in [facility]'s ring Weakness Surgical History History of bilateral tubal ligation History of cholecystectomy History of total knee arthroplasty Left Mitral valve replaced Mechanical, on coumadin Family History Mother CAD (coronary artery disease) Diabetes Other Hypertension Social History Smoking and tobacco status: former smoker Quit status (tobacco): has quit using tobacco Year quit tobacco: 1994 PPD x 15 Years Second hand smoke exposure: No Alcohol intake: never Caregiver/support person: Yes Household members: spouse and children Housing: House Marital status: Current occupational status: retired and disabled History of recent travel: No Current gender identity: Female Vitals/I&O/Wt Last Vital Signs Temp 98.5 F 12/31/20 08:30 Pulse 90 12/31/20 13:57 Resp 20 H 12/31/20 13:52 BP 134/64 12/31/20 13:52 Pulse Ox 100 12/31/20 13:57 Weight last 48 hrs Weight 63.503 kg Physical Exam Narrative: EXAM NARRATIVE: General exam is a white female, on BiPAP, trying to answer few questions in moderate respiratory distress HEENT: Atraumatic normocephalic. Oropharynx not examined as she is on BiPAP Neck is supple no lymphadenopathy or thyromegaly Cardiovascular heart sounds distant, regular, no obvious murmur. I cannot appreciate a click currently but respiratory noises are significant with BiPAP Lungs a few expiratory wheezes. No crackles. Abdomen is soft nontender with positive bowel sounds. No obvious organomegaly was deferred Extremities no cyanosis clubbing or edema. Some venous stasis changes are present on the anterior shins. Skin no rash Neuro no obvious focal deficits. Data : 12/31/20 07:59 12/31/20 07:59 Other data: Last ABG demonstrated pH 7.36, PCO2 69, PO2 80 on BiPAP Lactate was 1.0 LFTs largely normal. Alk phos was elevated at 193. Troponin XV with repeat 14 BNP 1436 Urinalysis 5-10 reds but otherwise negative Rapid Covid negative Chest x-ray shows a chronic right upper lobe opacity. Postoperative heart with valve replacement. I reviewed this myself. A&P Assessment and plan (1) Acute and chronic respiratory failure with hypoxia: Requiring BiPAP currently Most likely multifactorial. Element of COPD exacerbation as well as acute diastolic congestive heart failure. Normally uses trilogy at home Rapid Covid negative Status: Acute (2) COPD (chronic obstructive pulmonary disease): Solu-Medrol 40 mg IV every 12 hours Pulmonary toilet, pulmicort Levaquin IV Status: Acute Qualifiers: COPD type: unspecified COPD Qualified Code(s): J44.9 - Chronic obstructive pulmonary disease, unspecified (3) Pulmonary hypertension: Cautious diuresis Status: Acute (4) Diastolic CHF: Diuresis with IV Lasix 40 mg every 12 hours Status: Acute Qualifiers: Heart failure chronicity: acute on chronic Qualified Code(s): I50.33 - Acute on chronic diastolic (congestive) heart failure (5) Mitral valve replaced: Continue Coumadin, pharmacy consult for management Await INR Status: Acute (6) Afib: Currently in sinus rhythm Status: Acute (7) CAD (coronary artery disease): Troponin not concerning currently. No chest discomfort. Status: Acute Additional A&P Information Hypokalemia, supplement Multiple other medical problems see past medical history. Allow natural Coumadin should suffice for DVT prophylaxis Attestations Medical Necessity Statement*: Will need greater than 2 midnight stay secondary to respiratory failure requiring constant BiPAP with COPD exacerbation and CHF exacerbation. Critical Care Time: 54 Other Attestations: The high probability of a clinically significant, sudden or life threatening deterioration of the patient's [pulmonary, cardiac] system(s) required my full and direct attention, intervention and personal management. The critical care time is as shown. This time is in addition to time spent performing any reported procedures but includes the following: [x] Data and vital sign review and interpretation [x] Patient assessment, examination and intervention [x] Documentation [x] Medication orders and management Coding Level of Care Code Acute Director Informatics for Norma Yeh Diagnoses Acute and chronic respiratory failure with hypoxia J96.21 COPD (chronic obstructive pulmonary disease) J44.9 COPD type: unspecified COPD Pulmonary hypertension I27.20 Diastolic CHF I50.33 Heart failure chronicity: acute on chronic Mitral valve replaced Z95.2 Afib I48.91 CAD (coronary artery disease) I25.10
--- NOTE | 2020-12-31 14:40 | ECG_ITS ---
[facility] Test Date: 2020-12-31 Pat Name: Iris Garcia Department: Room: Gender: Female Ampoule Filler: : 1940 Requested By: Fili Brooks Order Number: [id number] Gentile MD: Tere Teixeira M.D. Measurements Intervals [place] Rate: 85 P: 8 MD: 234 QRS: 2 QRSD: 106 T: -11 QT: 395 QTc: 471 Interpretive Statements SINUS RHYTHM WITH FIRST DEGREE AV BLOCK NONSPECIFIC ST & T-WAVE ABNORMALITY Compared to ECG 12/31/2020 09:06:34 First degree AV block now present Atrial fibrillation no longer present T-wave abnormality still present Electronically Signed On 12-31-2020 22:18:28 EQUIPMENT SUPERINTENDENT by Tere Teixeira M.D. [id number]
[2020-12-31 14:51] LABS: Troponin 5 6HR 13.45 ng/L (0-10)
[2020-12-31 14:54] LABS: Troponin 5 6HR Delta -1.55 ng/L (0-12)
[2020-12-31] MEDS: potassium chloride ER 20 mEq Tablet 40 MEQ PO (15:00)
[2020-12-31] MEDS: FUROsemide 10 mg/mL SDV 4mL 40 MG IVP (15:01)
[2020-12-31] MEDS: ipratropium-albuterol 3 mL Neb INHALATION ×2 (15:17→20:25)
[2020-12-31 17:08] LABS: INR 8.54 (0.8-1.2)
[2020-12-31] MEDS: budesonide 0.5 mg/2 mL Neb INHALATION (20:25)
[2020-12-31] MEDS: pantoprazole DR 40 mg Tablet PO (20:43)
[2020-12-31] MEDS: atorvastatin 40 mg Tablet PO (20:43)
[2020-12-31] MEDS: metoprolol tartrate 25 mg Tablet 12.5 MG PO (20:43)
[2021-01-01] VITALS (31 sets, daily range): BP systolic 105–152; BP diastolic 35–111; PULSE 57–108; RESP 14–30; TEMP 36.6–37.1; O2SAT 89–100
[2021-01-01] MEDS: ipratropium-albuterol 3 mL Neb INHALATION ×6 (00:10→21:00)
[2021-01-01] MEDS: FUROsemide 10 mg/mL SDV 4mL 40 MG IVP ×2 (02:03→13:45)
[2021-01-01 03:59] LABS: Basophils % 0.3 %; Hematocrit 32.1 % (37.0-47.0); Hemoglobin 9.3 g/dL (11.5-15.3); Lymphocytes # 0.5 10^3/uL (0.8-4.8); Lymphocytes % 14.6 %; Mean Corpuscular Hemoglobin 27.8 pg (28.0-34.0); Mean Corpuscular Volume 95.8 fL (81-99); Mean Platelet Volume 10.9 fL (7.4-10.4); Monocytes # 0.2 10^3/uL (0.2-0.9); Monocytes % 5.1 %; Neutrophils # 2.96 10^3/uL (1.8-7.7); Nucleated Red Blood Cells % 0 %; Platelet Count 120 10^3/cmm (130-400); Red Blood Count 3.35 10^6/uL (4.1-5.3); Red Cell Distribution Width 15.6 % (12.1-15.1); White Blood Count 3.7 10^3/uL (4.0-10.0)
[2021-01-01 04:24] LABS: INR 7.93 (0.8-1.2)
[2021-01-01 04:28] LABS: Alanine Aminotransferase < 5 U/L (0-33); Albumin Level 3.2 g/dL (3.5-5.2); Alkaline Phosphatase 171 IU/L (35-105); Anion Gap 9.5 (5-19); Aspartate Amino Transferase 11 U/L (0-32); Blood Urea Nitrogen 13 mg/dL (8-23); Calcium 8.6 mg/dL (8.5-10.5); Carbon Dioxide 37 mmol/L (22-29); Chloride 102 mmol/L (98-107); Globulin 3.5 g/dL (1.3-4.6); Glucose 134 mg/dL (65-115); Magnesium 2.2 mg/dL (1.7-2.3); Osmolality Calculated 300 mOsm/kg (285-295); Potassium 4.5 mmol/L (3.5-5.1); Sodium 144 mmol/L (136-145); Total Bilirubin 0.7 mg/dL (0.15-1.2); Total Protein 6.7 g/dL (6.6-8.7)
[2021-01-01] MEDS: levothyroxine 50 mcg Tablet PO (08:03)
[2021-01-01] MEDS: pantoprazole DR 40 mg Tablet PO ×2 (08:03→21:30)
[2021-01-01] MEDS: levofloxacin-dextrose 5 % 750 MG/150 ML PREMIX 100 MG IV (08:03)
[2021-01-01] MEDS: fluoxetine 10 mg Capsule PO (08:04)
[2021-01-01] MEDS: budesonide 0.5 mg/2 mL Neb INHALATION ×2 (11:22→21:00)
--- NOTE | 2021-01-01 12:48 | P.PN_ITS ---
Subjective Subjective: Interval history: Iris reports she is doing okay. She was on BiPAP when I saw her this morning. She denied any discomfort. Medications: Reviewed: Yes Vitals/I&O/Wt Last Vital Signs Temp 98.8 F 01/01/21 08:00 Pulse 85 01/01/21 12:00 Resp 25 H 01/01/21 12:00 BP 107/42 01/01/21 12:00 Pulse Ox 100 01/01/21 12:00 12/31/20 01/01/21 01/01/21 22:59 06:59 14:59 Intake Total 370 / 520 390 / 390 Output Total 1300 / 1300 1300 / 2600 400 / 400 Balance -930 / -780 -1300 / -2080 -10 / -10 Weight last 48 hrs Weight 59.693 kg Weight 63.503 kg Physical Exam Narrative: EXAM NARRATIVE: General exam is a white female, on BiPAP, no apparent distress Neck is supple no lymphadenopathy or thyromegaly Cardiovascular heart sounds distant, regular, no obvious murmur. I cannot appreciate a click currently but respiratory noises are significant with BiPAP Lungs a few expiratory wheezes. No crackles. Abdomen is soft nontender with positive bowel sounds. No obvious organomegaly Extremities no cyanosis clubbing or edema. Some venous stasis changes are pr esent on the anterior shins. Urinary Catheter Management^: Lam: Cath Placed During This Visit: yes Reason for Continuing Indwelling Catheter: Accurate Measurement of Urinary Output in Critically Ill Patients Urinary Catheter Date of Insertion: 12/31/20 Urinary Catheter Time of Insertion: 15:45 Data : 01/01/21 03:27 01/01/21 03:27 A&P Assessment and plan (1) Acute and chronic respiratory failure with hypoxia: Requiring BiPAP currently Most likely multifactorial. Element of COPD exacerbation as well as acute diastolic congestive heart failure. Normally uses trilogy at home Rapid Covid negative Status: Acute (2) COPD (chronic obstructive pulmonary disease): Currently on Solu-Medrol 40 mg IV every 12 hours. Change to prednisone 40 mg daily Pulmonary toilet, pulmicort Continue Levaquin IV Status: Acute (3) Pulmonary hypertension: Continue diuresis. She had over 2 L out Status: Acute (4) Diastolic CHF: Diuresis with IV Lasix 40 mg every 12 hours Status: Acute Qualifiers: Heart failure chronicity: acute on chronic Qualified Code(s): I50.33 - Acute on chronic diastolic (congestive) heart failure (5) Mitral valve replaced: Significant coagulopathy after INR checked. Holding Coumadin. As she is not actively bleeding this was not reversed. Repeat INR tomorrow. Avoid falls. Status: Acute (6) Afib: Currently in sinus rhythm Status: Acute (7) CAD (coronary artery disease): Troponin not concerning currently. No chest discomfort. Status: Acute Additional A&P Information Hypokalemia, supplemented Multiple other medical problems see past medical history. Allow natural Coumadin should suffice for DVT prophylaxis Attestations Medical Necessity Statement*: Needs continued hospital stay for IV antibiotics for concern of pneumonia, supratherapeutic INR with close monitoring Coding Level of Care Code Acute [employer] Laboratory Assistant for g Fwd Diagnoses Acute and chronic respiratory failure with hypoxia J96.21 COPD (chronic obstructive pulmonary disease) J44.9 Pulmonary hypertension I27.20 Diastolic CHF I50.33 Heart failure chronicity: acute on chronic Mitral valve replaced Z95.2 Afib I48.91 CAD (coronary artery disease) I25.10
[2021-01-01] MEDS: atorvastatin 40 mg Tablet PO (21:30)
[2021-01-01] MEDS: metoprolol tartrate 25 mg Tablet 12.5 MG PO (21:31)
[2021-01-02] VITALS (27 sets, daily range): BP systolic 128–144; BP diastolic 39–78; PULSE 76–94; RESP 17–33; TEMP 36.7–37.7; O2SAT 90–99
[2021-01-02] MEDS: ipratropium-albuterol 3 mL Neb INHALATION ×6 (00:34→23:31)
[2021-01-02] MEDS: FUROsemide 10 mg/mL SDV 4mL 40 MG IVP ×2 (01:50→15:36)
[2021-01-02 05:44] LABS: Basophils % 0.4 %; Eosinophils # 0.1 10^3/uL (0.0-0.8); Eosinophils % 0.9 %; Hematocrit 28.5 % (37.0-47.0); Hemoglobin 8.7 g/dL (11.5-15.3); Lymphocytes # 0.6 10^3/uL (0.8-4.8); Lymphocytes % 10.7 %; Mean Corpuscular HGB Conc 30.5 g/dL (30.0-36.0); Mean Corpuscular Hemoglobin 28.1 pg (28.0-34.0); Mean Corpuscular Volume 91.9 fL (81-99); Mean Platelet Volume 9.7 fL (7.4-10.4); Monocytes # 0.5 10^3/uL (0.2-0.9); Monocytes % 8.8 %; Neutrophils # 4.42 10^3/uL (1.8-7.7); Nucleated Red Blood Cells % 0 %; Platelet Count 140 10^3/cmm (130-400); Red Cell Distribution Width 16.2 % (12.1-15.1); White Blood Count 5.6 10^3/uL (4.0-10.0)
[2021-01-02 06:11] LABS: Blood Urea Nitrogen 22 mg/dL (8-23); Calcium 8.1 mg/dL (8.5-10.5); Carbon Dioxide 37 mmol/L (22-29); Chloride 98 mmol/L (98-107); Glucose 97 mg/dL (65-115); Osmolality Calculated 301 mOsm/kg (285-295); Sodium 144 mmol/L (136-145)
[2021-01-02 06:54] LABS: INR 5.18 (0.8-1.2)
--- NOTE | 2021-01-02 07:06 | PM.MISC ---
Miscellaneous Note Purpose of Documentation: Nursing staff called and reported patient has been experiencing epistaxis. History of mechanical mitral valve replacement. Coumadin on hold due to supratherapeutic INR. INR today: 5.18. Give 2 units of FFP and 5 mg vitamin K IVPB. Monitor for persistent bleeding.
[2021-01-02] MEDS: phytonadione (ADULT) 5 MG in sodium chloride 0.9% 50 ML 151.5 MG IV (07:25)
[2021-01-02] MEDS: budesonide 0.5 mg/2 mL Neb INHALATION ×2 (07:36→19:26)
--- NOTE | 2021-01-02 07:55 | PC.NURSE ---
Patient awoke at 0300 with nose bleed. Pressure held for ten minutes and nose bleed resolved. Moisturizing humidity placed on [place] O2 to try to help with dryness due to high INR from chronic cooagulation therapy at home for mitral valve replacement. Patient awake again at 0430 with another nose bleed. Pressure held for ten minutes and hemostasis obtained. Patient awake and called real estate operations manager light at approx. 0545 ten minutes of pressure held and bleeding persisted. Packed nose with kleenex wad and held pressure for another 10 minutes. patient removed kleenex and nose started bleeding again. Gauze used and was quickly saturated again. Provider called since INR was still listed from previous day at 7.93 results from today still pending. Provider instructed to call lab and see about results. Provider ordered Vit K IVPB stat and type and cross for FFP infusion. Instruction passed on to day shift ROSEANN Pettit. Vit K delivered by pharmacy and was hung during bedside report. Nose bleed appears to be resolving at this time. Standard mask placed on patient for Oxygen therapy to try and avoid further nasal passage drying with continued oxygen therapy. Patient educated about sniffing clot out of nose and instructed to breath through mouth with mask on. Patient only wore Bipap therapy for about 2.5 hours last night before requesting it to be removed.Will continue to monitor and assist as needed following CPOC. This morning INR was 5.18
[2021-01-02] MEDS: predniSONE 20 mg Tablet 40 MG PO (09:00)
[2021-01-02] MEDS: levothyroxine 50 mcg Tablet PO (09:00)
[2021-01-02] MEDS: pantoprazole DR 40 mg Tablet PO ×2 (09:01→20:41)
[2021-01-02] MEDS: fluoxetine 10 mg Capsule PO (09:01)
--- NOTE | 2021-01-02 13:32 | PM.PN ---
Subjective Subjective: Interval history: Patient was seen and examined this morning.she was saturating well on 2ls oxygen via [place]Last night and early this morning she experienced epistaxsis last night for which she was given 2 units of FFP and 5 mg vitamin K. Currently no epsistaxsis noted. H/H : 8.7/28.5. Her other vitals and labs have been reviewed. Medications: Reviewed: Yes Vitals/I&O/Wt Last Vital Signs Temp 98.9 F 01/02/21 11:03 Pulse 90 01/02/21 11:58 Resp 18 01/02/21 11:58 BP 128/45 01/02/21 11:03 Pulse Ox 90 01/02/21 11:58 01/01/21 01/02/21 01/02/21 22:59 06:59 14:59 Intake Total 240 / 630 728.5 / 728.5 Output Total 150 / 550 925 / 1475 Balance 90 / 80 -925 / -845 728.5 / 728.5 Weight last 48 hrs Weight 62.142 kg Weight 59.693 kg Physical Exam HENMT: COMMON NORMALS: normocephalic and atraumatic HEAD & SCALP: normocephalic and atraumatic Chest: CHEST: Yes Symmetrical chest wall rise Resp: COMMON NORMALS: normal respiratory effort and clear to auscultation bilaterally AUSCULTATION: clear to auscultation bilaterally Cardio: COMMON NORMALS: regular rate, regular rhythm, S1 normal heart sound present, S2 normal heart sound present, No gallops present (Cardio), No murmurs present (Cardio), No rub (Cardio) and Peripheral pulses 2+ throughout RATE: regular rate RHYTHM: regular rhythm HEART SOUNDS: S1 normal heart sound present and S2 normal heart sound present PERIPHERAL PULSES: Peripheral pulses 2+ throughout OTHER: Mechanical mitral click present in mitral area. GI: COMMON NORMALS: Soft to palpation, non-tender, No hepatosplenomegaly present and no masses AUSCULTATION: Yes normoactive bowel sounds PALPATION: Yes Soft to palpation and Yes No hepatosplenomegaly present RECTAL EXAM: deferred Extremity: COMMON NORMALS: no clubbing, cyanosis or edema and no pedal edema Urinary Catheter Management^: Lam: Cath Placed During This Visit: yes Reason for Continuing Indwelling Catheter: Accurate Measurement of Urinary Output in Critically Ill Patients Urinary Catheter Date of Insertion: 12/31/20 Urinary Catheter Time of Insertion: 15:45 Data : 01/02/21 05:17 01/02/21 05:17 A&P Assessment and plan (1) Acute and chronic respiratory failure with hypoxia: Multifactorial. COPD Exacerbation 2/2 2/2 PNA. HFpEF Exacerbation. Continue Duo Nebs Pulmicort Inhaler Continue Lasix 40 mg I.V Q12 H Daily Continue Levofloxacin 750 mg I.V Q48H Continue Prednisone 40 mg po daily Normally uses trilogy at home Rapid Covid negative Status: Acute (2) COPD (chronic obstructive pulmonary disease): She on Solu-Medrol 40 mg IV every 12 hours. On prednisone 40 mg daily Pulmonary toilet, pulmicort Continue Levaquin IV Status: Acute (3) Pulmonary hypertension: Continue diuresis. She had over 2 L out Status: Acute (4) Diastolic CHF: Diuresis with IV Lasix 40 mg every 12 hours. Monitor for contraction alkalosis. Her baseline serum bicarbonate will be high given her underlying COPD. Status: Acute Qualifiers: Heart failure chronicity: acute on chronic Qualified Code(s): I50.33 - Acute on chronic diastolic (congestive) heart failure (5) Elevated INR: Continue to hold Coumadin Monitor daily INR Status: Acute (6) Epistaxis: early this morning she experienced epistaxsis last night for which she was given 2 units of FFP and 5 mg vitamin K. Currently no epsistaxsis noted. H/H : 8.7/28.5. Status: Acute (7) Mitral valve replaced: Significant coagulopathy after INR checked. Holding Coumadin. As she is not actively bleeding this was not reversed. Repeat INR tomorrow. Avoid falls. Status: Acute (8) Afib: Currently in sinus rhythm Status: Acute (9) CAD (coronary artery disease): Troponin not concerning currently. No chest discomfort. Status: Acute (10) Pneumonia: Status: Acute Additional A&P Information Hypokalemia, supplemented Multiple other medical problems see past medical history. Allow natural Coumadin should suffice for DVT prophylaxis Attestations Medical Necessity Statement*: Patient is to be in hospital for management of COPD exacerbation, diastolic heart failure, elevated INR, epistaxis. Coding Level of Care Code Acute Framework Developer for Norma Yeh Diagnoses Acute and chronic respiratory failure with hypoxia J96.21 COPD (chronic obstructive pulmonary disease) J44.9 Pulmonary hypertension I27.20 Diastolic CHF I50.33 Heart failure chronicity: acute on chronic Elevated INR R79.1 Epistaxis R04.0 Mitral valve replaced Z95.2 Afib I48.91 CAD (coronary artery disease) I25.10 Pneumonia J18.9
--- NOTE | 2021-01-02 14:19 | PC.PT ---
Nursing asked PT to hold therapy today due to nose bleed.
[2021-01-02] MEDS: potassium chloride ER 20 mEq Tablet 40 MEQ PO (15:36)
[2021-01-02] MEDS: nystatin powder 15 gm Btl 1 APPLIC TOPICAL (16:01)
--- NOTE | 2021-01-02 16:57 | PC.NURSE ---
pt with nose bleed at change of shift.vit k given ivpb and 2 units ffp given as ordered.nosebleed subsided after 2nd unit of ffp completed.pt tolerated ffp well.no further nosebleeds noted through shift
[2021-01-02] MEDS: levofloxacin-dextrose 5 % 750 MG/150 ML PREMIX 100 MG IV (18:36)
[2021-01-02] MEDS: metoprolol tartrate 25 mg Tablet 12.5 MG PO (20:41)
[2021-01-02] MEDS: atorvastatin 40 mg Tablet PO (20:41)
[2021-01-03] VITALS (18 sets, daily range): BP systolic 131–163; BP diastolic 46–100; PULSE 56–91; RESP 18–32; TEMP 36.4–36.9; O2SAT 94–100
[2021-01-03] MEDS: ipratropium-albuterol 3 mL Neb INHALATION ×6 (03:47→23:02)
[2021-01-03] MEDS: FUROsemide 10 mg/mL SDV 4mL 40 MG IVP ×2 (04:59→16:34)
[2021-01-03 05:31] LABS: Basophils % 0.5 %; Eosinophils # 0.1 10^3/uL (0.0-0.8); Eosinophils % 1.3 %; Hematocrit 29.6 % (37.0-47.0); Hemoglobin 8.7 g/dL (11.5-15.3); Lymphocytes # 0.6 10^3/uL (0.8-4.8); Lymphocytes % 15.2 %; Mean Corpuscular HGB Conc 29.4 g/dL (30.0-36.0); Mean Corpuscular Hemoglobin 27.7 pg (28.0-34.0); Mean Corpuscular Volume 94.3 fL (81-99); Mean Platelet Volume 10.1 fL (7.4-10.4); Monocytes # 0.5 10^3/uL (0.2-0.9); Monocytes % 12.6 %; Neutrophils # 2.67 10^3/uL (1.8-7.7); Neutrophils % 69.9 %; Nucleated Red Blood Cells % 0 %; Platelet Count 133 10^3/cmm (130-400); Red Blood Count 3.14 10^6/uL (4.1-5.3); Red Cell Distribution Width 16.3 % (12.1-15.1); White Blood Count 3.8 10^3/uL (4.0-10.0)
[2021-01-03 05:55] LABS: INR 1.12 (0.8-1.2)
[2021-01-03 06:02] LABS: Anion Gap 8.1 (5-19); Blood Urea Nitrogen 16 mg/dL (8-23); Calcium 8.3 mg/dL (8.5-10.5); Carbon Dioxide 37 mmol/L (22-29); Chloride 103 mmol/L (98-107); Glucose 84 mg/dL (65-115); Osmolality Calculated 300 mOsm/kg (285-295); Potassium 3.1 mmol/L (3.5-5.1); Sodium 145 mmol/L (136-145)
[2021-01-03] MEDS: budesonide 0.5 mg/2 mL Neb INHALATION ×2 (08:25→20:05)
[2021-01-03] MEDS: predniSONE 20 mg Tablet 40 MG PO (08:57)
[2021-01-03] MEDS: fluoxetine 10 mg Capsule PO (08:58)
[2021-01-03] MEDS: pantoprazole DR 40 mg Tablet PO ×2 (08:58→21:19)
[2021-01-03] MEDS: levothyroxine 50 mcg Tablet PO (08:58)
--- NOTE | 2021-01-03 09:06 | PC.SOCIAL ---
IMM Update Pg.2 of IMM Updated and reviewed with patient who verbalized understanding. Copy provided.
[2021-01-03] MEDS: potassium chloride ER 20 mEq Tablet 40 MEQ PO (10:40)
--- NOTE | 2021-01-03 13:10 | PM.PN ---
Subjective Subjective: Interval history: Patient was seen and examined this morning.She was needing BIPAP this morning as she used none at night. But later towards the day she was switched to 2ls oxygen via [place].No fresh episodes of epistaxsis.H/H has remained stable.INR has stabilized. Medications: Reviewed: Yes Vitals/I&O/Wt Last Vital Signs Temp 98.3 F 01/03/21 10:55 Pulse 83 01/03/21 11:51 Resp 20 H 01/03/21 11:51 BP 139/47 01/03/21 10:55 Pulse Ox 97 01/03/21 11:51 01/02/21 01/03/21 01/03/21 22:59 06:59 14:59 Intake Total 270 / 998.5 560 / 560 Output Total 550 / 550 Balance 270 / 998.5 -550 / 448.5 560 / 560 Weight last 48 hrs Weight 62.233 kg Weight 62.142 kg Physical Exam HENMT: COMMON NORMALS: normocephalic and atraumatic HEAD & SCALP: normocephalic and atraumatic Chest: CHEST: Yes Symmetrical chest wall rise Resp: COMMON NORMALS: normal respiratory effort and clear to auscultation bilaterally AUSCULTATION: clear to auscultation bilaterally Cardio: COMMON NORMALS: regular rate, regular rhythm, S1 normal heart sound present, S2 normal heart sound present, No gallops present (Cardio), No murmurs present (Cardio), No rub (Cardio) and Peripheral pulses 2+ throughout RATE: regular rate RHYTHM: regular rhythm HEART SOUNDS: S1 normal heart sound present and S2 normal heart sound present PERIPHERAL PULSES: Peripheral pulses 2+ throughout OTHER: Mechanical mitral click present in mitral area. GI: COMMON NORMALS: Soft to palpation, non-tender, No hepatosplenomegaly present and no masses AUSCULTATION: Yes normoactive bowel sounds PALPATION: Yes Soft to palpation and Yes No hepatosplenomegaly present RECTAL EXAM: deferred Extremity: COMMON NORMALS: no clubbing, cyanosis or edema and no pedal edema Urinary Catheter Management^: Lam: Cath Placed During This Visit: yes Reason for Continuing Indwelling Catheter: Acute Urinary Retention or Obstruction Urinary Catheter Date of Insertion: 12/31/20 Urinary Catheter Time of Insertion: 15:45 Data : 01/03/21 04:36 03/07/21 04:36 A&P Assessment and plan (1) Acute and chronic respiratory failure with hypoxia: Multifactorial. COPD Exacerbation 2/2 2/2 PNA. HFpEF Exacerbation. Xray Chest : Continue Duo Nebs Pulmicort Inhaler Continue Lasix 40 mg I.V Q12 H Daily Continue Levofloxacin 750 mg I.V Q48H Continue Prednisone 40 mg po daily Normally uses trilogy at home Rapid Covid negative Status: Acute (2) COPD (chronic obstructive pulmonary disease): She was on Solu-Medrol 40 mg IV every 12 hours. On prednisone 40 mg daily Pulmonary toilet, pulmicort Continue Levaquin IV Status: Acute (3) Pulmonary hypertension: Continue diuresis. She had over 2 L out Status: Acute (4) Diastolic CHF: On Lasix 40 mg I.V every 12 hours. Monitor for contraction alkalosis. Her baseline serum bicarbonate will be high given her underlying COPD. Status: Acute Qualifiers: Heart failure chronicity: acute on chronic Qualified Code(s): I50.33 - Acute on chronic diastolic (congestive) heart failure (5) Elevated INR: Current INR is : 1.12 Will resume warfarin @ 3 mg po daily Status: Acute (6) Epistaxis: she experienced epistaxsis for which she was given 2 units of FFP and 5 mg vitamin K. Currently no epsistaxsis noted. H/H : Stable Status: Acute (7) Mitral valve replaced: Significant coagulopathy after INR checked. Holding Coumadin. As she is not actively bleeding this was not reversed. Repeat INR tomorrow. Avoid falls. Status: Acute (8) Afib: Currently in sinus rhythm Status: Acute (9) CAD (coronary artery disease): Troponin not concerning currently. No chest discomfort. Status: Acute (10) Pneumonia: Status: Acute Additional A&P Information Hypokalemia, supplemented Multiple other medical problems see past medical history. Allow natural Coumadin should suffice for DVT prophylaxis Attestations Medical Necessity Statement*: Patient needs to be in hospital for the management of R/F , Elevated INR, Epsitaxsis. Coding Level of Care Code Acute Gambling Box Person for [facility] Fwd Exam Detailed Diagnoses Acute and chronic respiratory failure with hypoxia J96.21 COPD (chronic obstructive pulmonary disease) J44.9 Pulmonary hypertension I27.20 Diastolic CHF I50.33 Heart failure chronicity: acute on chronic Elevated INR R79.1 Epistaxis R04.0 Mitral valve replaced Z95.2 Afib I48.91 CAD (coronary artery disease) I25.10 Pneumonia J18.9
--- NOTE | 2021-01-03 14:41 | XRR_ITS ---
PROCEDURE INFORMATION: Exam: XR Chest Exam date and time: 01/03/2021 3:49 PM Age: 80 years old Clinical indication: Shortness of breath; Prior surgery; Surgery date: 6+ months; Surgery type: Heart; Additional info: SOB TECHNIQUE: Imaging protocol: XR of the chest Views: 1 view. COMPARISON: CR XR chest 1V portable [id number] 12/31/2020 8:40 AM FINDINGS: Lungs: Mild pulmonary edema is appreciated. No acute airspace process is seen. A calcified granuloma is seen in the right upper lobe. Pleural spaces: Unremarkable. No pleural effusion. No pneumothorax. Heart/Mediastinum: The heart is normal in size. Mitral valve replacement is again noted. Bones/joints: Several old left rib fractures are noted. No acute fracture is detected. XR/XR chest 1V portable [id number] IMPRESSION: Mild pulmonary edema.
[2021-01-03] MEDS: warfarin 3 mg Tablet PO (16:34)
[2021-01-03] MEDS: atorvastatin 40 mg Tablet PO (21:19)
[2021-01-03] MEDS: metoprolol tartrate 25 mg Tablet 12.5 MG PO (21:20)
[2021-01-04] VITALS (16 sets, daily range): BP systolic 112–152; BP diastolic 49–79; PULSE 74–95; RESP 16–29; TEMP 36.3–36.6; O2SAT 94–100
[2021-01-04] MEDS: FUROsemide 10 mg/mL SDV 4mL 40 MG IVP ×2 (02:41→14:15)
[2021-01-04] MEDS: ipratropium-albuterol 3 mL Neb INHALATION ×6 (03:06→23:16)
[2021-01-04 05:31] LABS: Hemoglobin 9.5 g/dL (11.5-15.3); Lymphocytes # 0.4 10^3/uL (0.8-4.8); Lymphocytes % 12.2 %; Mean Corpuscular HGB Conc 29.7 g/dL (30.0-36.0); Mean Corpuscular Hemoglobin 27.2 pg (28.0-34.0); Mean Corpuscular Volume 91.7 fL (81-99); Mean Platelet Volume 9.9 fL (7.4-10.4); Monocytes # 0.2 10^3/uL (0.2-0.9); Monocytes % 6.5 %; Neutrophils # 2.85 10^3/uL (1.8-7.7); Nucleated Red Blood Cells % 0 %; Platelet Count 153 10^3/cmm (130-400); Red Blood Count 3.49 10^6/uL (4.1-5.3); Red Cell Distribution Width 15.9 % (12.1-15.1); White Blood Count 3.5 10^3/uL (4.0-10.0)
[2021-01-04 05:50] LABS: Anion Gap 10.8 (5-19); Blood Urea Nitrogen 16 mg/dL (8-23); Calcium 8.3 mg/dL (8.5-10.5); Carbon Dioxide 36 mmol/L (22-29); Chloride 100 mmol/L (98-107); Glucose 149 mg/dL (65-115); Osmolality Calculated 300 mOsm/kg (285-295); Potassium 3.8 mmol/L (3.5-5.1); Sodium 143 mmol/L (136-145)
[2021-01-04] MEDS: budesonide 0.5 mg/2 mL Neb INHALATION ×2 (08:12→20:27)
[2021-01-04] MEDS: predniSONE 20 mg Tablet 40 MG PO (08:38)
[2021-01-04] MEDS: levothyroxine 50 mcg Tablet PO (08:38)
[2021-01-04] MEDS: fluoxetine 10 mg Capsule PO (08:39)
[2021-01-04] MEDS: pantoprazole DR 40 mg Tablet PO ×2 (08:39→21:09)
[2021-01-04 10:16] LABS: INR 1.17 (0.8-1.2)
[2021-01-04] MEDS: levofloxacin-dextrose 5 % 750 MG/150 ML PREMIX 100 MG IV (11:56)
[2021-01-04] MEDS: warfarin 3 mg Tablet PO (14:14)
--- NOTE | 2021-01-04 18:19 | P.PN_ITS ---
Subjective Subjective: Interval history: INR 1.17 today. Hemoglobin stable at 9.5. No further episodes of epistaxis. Medications: Reviewed: Yes Vitals/I&O/Wt Last Vital Signs Temp 97.8 F 01/04/21 14:58 Pulse 91 01/04/21 15:42 Resp 18 01/04/21 15:39 BP 137/69 01/04/21 14:58 Pulse Ox 98 01/04/21 15:39 01/04/21 01/04/21 01/04/21 06:59 14:59 22:59 Intake Total 200 / 1080 660 / 660 120 / 780 Output Total 1999 / 0 1450 / 1450 Balance -1800 / -2570 660 / 660 -1330 / -670 Weight last 48 hrs Weight 62.142 kg Weight 62.233 kg Physical Exam Narrative: EXAM NARRATIVE: GEN: Awake, alert and oriented, no acute distress CVS: S1S2 N RS: CTA B/L Abd: Soft, nt/nd , bs+ TIP FIXER: no focal neuro deficits Urinary Catheter Management^: Lam: Cath Placed During This Visit: yes Reason for Continuing Indwelling Catheter: Acute Urinary Retention or Obstruction Urinary Catheter Date of Insertion: 12/31/20 Urinary Catheter Time of Insertion: 15:45 Data : 01/04/21 05:11 01/04/21 05:11 A&P Assessment and plan (1) Acute and chronic respiratory failure with hypoxia: Multifactorial. COPD Exacerbation, HFpEF Exacerbation. Continue Duo Nebs and Pulmicort Inhaler Change 40mg iv q12h lasix to bumex po 2mg q12h in anticipation of upcoming dis charge Discontinue Levofloxacin 750 mg I.V Q48H as completed adequate empiric course Continue Prednisone 40 mg po daily Normally uses trilogy at home Rapid Covid negative Status: Acute (2) COPD (chronic obstructive pulmonary disease): She was on Solu-Medrol 40 mg IV every 12 hours. On prednisone 40 mg daily Pulmonary toilet, pulmicort Status: Acute (3) Pulmonary hypertension: Continue diuresis. She had over 2 L out Status: Acute (4) Diastolic CHF: On Lasix 40 mg I.V every 12 hours. Monitor for contraction alkalosis. Her baseline serum bicarbonate will be high given her underlying COPD. Status: Acute Qualifiers: Heart failure chronicity: acute on chronic Qualified Code(s): I50.33 - Acute on chronic diastolic (congestive) heart failure (5) Elevated INR: Current INR is : 1.17 Continue warfarin @ 3 mg po daily Status: Acute (6) Epistaxis: she experienced epistaxsis for which she was given 2 units of FFP and 5 mg vitamin K. Currently no epsistaxsis noted. H/H : Stable Status: Acute (7) Mitral valve replaced: resumed coumadin on 01/03, plan for twice a week INR check upon discharge by [facility] Status: Acute (8) Afib: Currently in sinus rhythm Status: Acute (9) CAD (coronary artery disease): Troponin not concerning currently. No chest discomfort. Status: Acute (10) Pneumonia: Status: Acute Additional A&P Information Hypokalemia, supplemented Multiple other medical problems see past medical history. Allow natural Coumadin should suffice for DVT prophylaxis Attestations Medical Necessity Statement*: change iv to po diuretics, disocntoue abx, discharge in the upcoming 20 to 48 hours if remains clinically stable. Coding Level of Care Code Acute [employer] Deputy Director for Norma Yeh Diagnoses Acute and chronic respiratory failure with hypoxia J96.21 COPD (chronic obstructive pulmonary disease) J44.9 Pulmonary hypertension I27.20 Diastolic CHF I50.33 Heart failure chronicity: acute on chronic Elevated INR R79.1 Epistaxis R04.0 Mitral valve replaced Z95.2 Afib I48.91 CAD (coronary artery disease) I25.10 Pneumonia J18.9
--- NOTE | 2021-01-04 20:09 | PC.NURSE ---
Patient has no complaints at this time. Will monitor.
[2021-01-04] MEDS: metoprolol tartrate 25 mg Tablet 12.5 MG PO (21:09)
[2021-01-04] MEDS: atorvastatin 40 mg Tablet PO (21:09)
[2021-01-05] VITALS (9 sets, daily range): BP systolic 131–162; BP diastolic 43–52; PULSE 62–84; RESP 12–32; TEMP 36.6–36.7; O2SAT 96–100
[2021-01-05 04:59] LABS: Basophils % 0.3 %; Hematocrit 29.7 % (37.0-47.0); Hemoglobin 8.9 g/dL (11.5-15.3); Lymphocytes # 0.9 10^3/uL (0.8-4.8); Lymphocytes % 22.4 %; Mean Corpuscular Hemoglobin 27.1 pg (28.0-34.0); Mean Corpuscular Volume 90.3 fL (81-99); Mean Platelet Volume 9.7 fL (7.4-10.4); Monocytes # 0.4 10^3/uL (0.2-0.9); Monocytes % 10.8 %; Neutrophils # 2.59 10^3/uL (1.8-7.7); Neutrophils % 65.2 %; Nucleated Red Blood Cells % 0 %; Platelet Count 163 10^3/cmm (130-400); Red Blood Count 3.29 10^6/uL (4.1-5.3); Red Cell Distribution Width 15.7 % (12.1-15.1)
[2021-01-05 05:14] LABS: INR 1.52 (0.8-1.2)
[2021-01-05 05:24] LABS: Alanine Aminotransferase < 5 U/L (0-33); Albumin Level 3.6 g/dL (3.5-5.2); Alkaline Phosphatase 145 IU/L (35-105); Anion Gap 7.1 (5-19); Aspartate Amino Transferase 11 U/L (0-32); Blood Urea Nitrogen 22 mg/dL (8-23); Calcium 8.9 mg/dL (8.5-10.5); Carbon Dioxide 38 mmol/L (22-29); Chloride 99 mmol/L (98-107); Globulin 2.8 g/dL (1.3-4.6); Glucose 97 mg/dL (65-115); Osmolality Calculated 295 mOsm/kg (285-295); Potassium 3.1 mmol/L (3.5-5.1); Sodium 141 mmol/L (136-145); Total Bilirubin 0.9 mg/dL (0.15-1.2); Total Protein 6.4 g/dL (6.6-8.7)
[2021-01-05] MEDS: budesonide 0.5 mg/2 mL Neb INHALATION (08:09)
[2021-01-05] MEDS: ipratropium-albuterol 3 mL Neb INHALATION (08:09)
[2021-01-05] MEDS: bumetanide 1 mg Tablet 2 MG PO (08:32)
[2021-01-05] MEDS: fluoxetine 10 mg Capsule PO (08:32)
[2021-01-05] MEDS: levothyroxine 50 mcg Tablet PO (08:33)
[2021-01-05] MEDS: predniSONE 20 mg Tablet 40 MG PO (08:33)
[2021-01-05] MEDS: pantoprazole DR 40 mg Tablet PO (08:33)
--- NOTE | 2021-01-05 10:28 | P.DS_ITS ---
Discharge Providers Date of Admission: 12/31/20 11:30 Date of Discharge: January 05, 2021 Attending Provider at Admission: Anastacio Saab MD Attending Provider at Discharge: Hellen Gallo MD Primary Care Provider: Michael Hampton DO Diagnoses at Discharge Discharge Diagnosis (1) Acute and chronic respiratory failure with hypoxia: Status: Acute (2) COPD (chronic obstructive pulmonary disease): Status: Acute (3) Pulmonary hypertension: Status: Acute (4) Diastolic CHF: Status: Acute Qualifiers: Heart failure chronicity: acute on chronic Qualified Code(s): I50.33 - Acute on chronic diastolic (congestive) heart failure (5) Elevated INR: Status: Acute (6) Epistaxis: Status: Acute (7) 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 Has had history of frequent hospitalizations in the past secondary to COPD exacerbation and chronic respiratory failure. She typically is on 2 L of oxygen. ABG upon admission demonstrated pH 7.36, PCO2 69, PO2 80 on BiPAP. She was admitted for multifactorial acute on chronic respiratory failure likely related to COPD exacerbation and diastolic CHF. She received treatment with IV steroids, Levaquin, pulmonary toilet and inhaled steroids and duo nebs. She also received cautious diuresis with IV Lasix 40 mg every 12 hours, transition to oral Lasix at the time of discharge. Hospital course was complicated by development of epistaxis, her INR was found to be supratherapeutic at 5. She received 2 units of FFP and 5 mg of vitamin K on January 02, 2021. H&H remained stable. Repeat INR is at 1.12. Coumadin was then cautiously resumed on January 03, 2021 at 3 mg p.o. daily. INR is currently improving from 1.12-1.5. She is recommended to continue Coumadin 3 mg p.o. daily until therapeutic INR is achieved. She is being discharged today after improved respiratory status, home health has been arranged to come out and check INR twice a week and to send the results to [facility] for management of INR upon discharge. She has not had any further episodes of epistaxis. Her oxygen requirement is back to baseline of 2 L/min. There are no wheezing or crackles on exam today. Physical Exam Narrative: EXAM NARRATIVE: GEN: Awake, alert and oriented, no acute distress CVS: S1S2 N RS: CTA B/L Abd: Soft, nt/nd , bs+ BIOCHEMICAL ENGINEER: no focal neuro deficits Extremities bilateral lower extremities with changes of stasis dermatitis, no edema Urinary Catheter Management^: Lam: Cath Placed During This Visit: yes Reason for Continuing Indwelling Catheter: Acute Urinary Retention or Obstruction Urinary Catheter Date of Insertion: 12/31/20 Urinary Catheter Time of Insertion: 15:45 Discharge Data Data Completed and Pending: Completed Studies During Hospitalization Category Date Time Status XR chest 1V mary ble [id number] Routine Exams 01/03/21 14:41 Completed XR chest 1V mary ble [id number] Urgent Exams 12/31/20 08:37 Completed Pending at discharge Category Date Time Status Prothrombin Time INR AM LABS Lab 01/06/21 04:00 Ordered Prothrombin Time INR AM LABS Lab 01/07/21 04:00 Ordered Labs from last 24 hours 01/05/21 01/05/21 01/05/21 04:25 04:25 04:25 WBC 4.0 RBC 3.29 L Hgb 8.9 L Hct 29.7 L MCV 90.3 MCH 27.1 L MCHC 30.0 RDW 15.7 H Plt Count 163 MPV 9.7 Neut % (Auto) 65.2 Lymph % (Auto) 22.4 [place] % (Auto) 10.8 Eos % (Auto) 1.0 Baso % (Auto) 0.3 Neut # (Auto) 2.59 Lymph # (Auto) 0.9 [place] # (Auto) 0.4 Eos # (Auto) 0.0 Baso # (Auto) 0.0 Nucleated RBC % (a uto) 0 Nucleated RBCs # 0.0 PT 18.80 H INR 1.52 H Sodium 141 Potassium 3.1 L Chloride 99 Carbon Dioxide 38 H Anion Gap 7.1 BUN 22 Creatinine 0.6 GFR Calculation Not Reportable Glucose 97 Calculated Osmolal ity 295 Calcium 8.9 Total Bilirubin 0.9 AST 11 ALT < 5 Alkaline Phosphata se 145 H Total Protein 6.4 L Albumin 3.6 Globulin 2.8 Vitals: Last Vital Signs Temp 97.8 F 01/05/21 07:29 Pulse 83 01/05/21 08:16 Resp 18 01/05/21 08:10 BP 136/43 01/05/21 07:29 Pulse Ox 100 01/05/21 08:10 Discharge Plan Discharge Patient Disposition: Home Health Service Condition: Stable Prescriptions: New fluticasone propion-salmeterol [Advair Diskus] 250-50 mcg/dose blister with device 1 inh inhalation BID Qty: 60 RF: 0 albuterol sulfate 90 mcg/actuation aerosol powdr breath activated 1 inh inhalation Q6H PRN (Reason: shortness of breath) Qty: 1 RF: 0 Continued polyethylene glycol 3350 [Miralax] 17 gram/dose powder 17 gm PO DAILY PRN (Reason: Constipation) RF: 0 fluoxetine 10 mg capsule 10 mg PO DAILY@ RF: 0 rosuvastatin [Crestor] 10 mg tablet 10 mg PO DAILY@ RF: 0 carbidopa-levodopa 10-100 mg tablet,disintegrating 1 tab PO TID RF: 0 levothyroxine 50 mcg capsule 50 mcg PO DAILY@ RF: 0 tolterodine 2 mg tablet 2 mg PO BID@ RF: 0 bumetanide 2 mg tablet 2 mg PO DAILY@899 RF: 0 potassium chloride [Klor-Con 10] 10 mEq tablet extended release 20 meq PO BID@ RF: 0 metoprolol tartrate 25 mg tablet 12.5 mg PO DAILY@ RF: 0 ferrous gluconate 324 mg (37.5 mg iron) tablet 324 mg PO BID@ RF: 0 sennosides-docusate sodium 8.6-50 mg tablet 2 tab PO BID PRN (Reason: Constipation) RF: 0 pantoprazole 40 mg tablet,delayed release (DR/EC) 40 mg PO BID@899,2099 RF: 0 Changed warfarin [Jantoven] 3 mg Tablet 3 mg PO DAILY Qty: 16 RF: 0 Discontinued warfarin 2 mg tablet See Rx Instructions mg .ROUTE .COMPLEX RF: 0 Discharge Orders: Discharge Order (Routine); Ordered 01/05/21 Ordered By: Hellen Gallo Referrals: Michael Hampton DO [Primary Care Provider] - 1 week (Please follow-up with Dr. Hampton on January 13 at 2:40P.M. if you have any questions or need to reschedule. Please call ) Discharge Diet: Cardiac Discharge Activity: Resume usual activity Patient Instructions: Coronary Artery Disease (DC), CHF Stoplight, COPD Stoplight, Pneumonia Stoplight Discharge Attestations Time Spent in Discharge Care*: greater than 30 min Status at Discharge: Cognitive status at discharge: cognitively intact , Behavioral status at discharge: cooperative , Quality Metrics Clinical Quality Measures During this hospital stay, did patient experience: None Coding Level of Care Code Acute Collection Supervisor for Zackeryg Fwd Diagnoses Acute and chronic respiratory failure with hypoxia J96.21 COPD (chronic obstructive pulmonary disease) J44.9 Pulmonary hypertension I27.20 Diastolic CHF I50.33 Heart failure chronicity: acute on chronic Elevated INR R79.1 Epistaxis R04.0 Mitral valve replaced Z95.2 Afib I48.91 CAD (coronary artery disease) I25.10 Pneumonia J18.9
--- NOTE | 2021-01-05 11:16 | DCPLANNER ---
IMM completed 01/05/21 @ 1004. Copy of rights given to pt.
[2021-01-05] MEDS: potassium chloride ER 20 mEq Tablet 60 MEQ PO (11:40)
--- NOTE | 2021-01-05 13:02 | PC.NURSE ---
no ar/arb ordered due to not systolic heart failure...and ef> 35%..per dr penaloza
--- NOTE | 2021-01-05 14:44 | PC.NURSE ---
DISCHARGE DISCHARGE INSTRUCTIONS AND FOLLOW-UP APPOINTMENTS EXPLAINED TO PATIENT. PATIENT VERBALIZED UNDERSTANDING. PATIENT IS ALERT AND ORIENTED X4. PATIENT HAS NO COMPLAINTS AT THIS TIME. IV REMOVED PATENT AND INTACT, PATIENT TOLERATED WELL. PATIENT RECEIVED NEW PRESCRIPTIONS BY MEDS TO BEDS. PATIENT TRANSPORTED VIA WHEELCHAIR TO SPOUSE WAITING OUTSIDE.
== END 2021-01-05 14:25 | disposition home health service (06) | DRG 189 ==
LOC: ER 09:16 → ICU 12:03 → CSU 01-01 14:49
PROVIDERS: Internal Medicine; Admitting Provider Internal Medicine; Emergency Provider Family Medicine; PCP Family Medicine; Visit Provider Student in an Organized Health Care Education/Training Program
DX: J96.21 Acute and chronic respiratory failure with hypoxia (principal); J18.9 Pneumonia, unspecified organism; I50.33 Acute on chronic diastolic (congestive) heart failure; J44.1 Chronic obstructive pulmonary disease with (acute) exacerbation; J44.0 Chronic obstructive pulmonary disease with (acute) lower respiratory infection; I48.91 Unspecified atrial fibrillation; D50.9 Iron deficiency anemia, unspecified; I25.10 Atherosclerotic heart disease of native coronary artery without angina pectoris; Z95.2 Presence of prosthetic heart valve; F32.9 Major depressive disorder, single episode, unspecified; I11.0 Hypertensive heart disease with heart failure; K21.9 Gastro-esophageal reflux disease without esophagitis; E03.9 Hypothyroidism, unspecified; G47.33 Obstructive sleep apnea (adult) (pediatric); G20 Parkinson's disease; Z96.652 Presence of left artificial knee joint; Z87.891 Personal history of nicotine dependence; I27.20 Pulmonary hypertension, unspecified; E87.6 Hypokalemia; Z66 Do not resuscitate; Z99.81 Dependence on supplemental oxygen; R04.0 Epistaxis; R79.1 Abnormal coagulation profile
CPT/HCPCS: 36415; 36430; 36600; 51702; 71045; 80048; 80051; 80053; 81001; 82330; 82805; 83605; 83735; 83880; 84484; 85025; 85378; 85610; 86900; 86927; 87426; 93005; 94640; 94660; 96365; 97110; 97166; 97535; 99285; J1940; J1956; J2920; J3430; J3535; J7512; J7626; P9017

== ENCOUNTER 2021-02-12 15:15 | Inpatient (IN) | payer MEDICARE, MEDICAID, SELFPAY ==
[2021-02-12] VITALS (12 sets, daily range): BP systolic 131–148; BP diastolic 52–75; PULSE 72–88; RESP 12–28; TEMP 36.7–37; O2SAT 98–100; BMI 26.4
--- NOTE | 2021-02-12 15:42 | W.ED.AMS ---
HPI - Altered Mental Status General: Chief Complaint: Altered Mental Status Stated Complaint: LETHARGIC Time Seen by Provider: 02/12/21 15:17 History of Present Illness: HPI narrative: 80-year-old female presents emergency room with lethargy and confusion wheezing. She has increased 6 edema of her lower extremities she denies any chest pain no shortness of breath. She is usually on oxygen at home she has a history of venous stasis edema COPD prosthetic mitral valve diastolic congestive heart failure. MD complaint: confusion and decreased responsiveness Onset (ago): unknown Timing confirmed by: family member Severity: moderate Consistency of symptoms: Getting Worse Context: COPD Associated symptoms: Deny no associated symptoms, auditory hallucinations, visual hallucinations, delusions, depression, homicidal ideation or racing thoughts Treatments prior to arrival: oxygen Review of Systems Const: Reports: fatigue and malaise; Denies: fever(s), chills, body aches or change in appetite ENMT: Denies: throat pain, ear or mastoid pain, nasal discharge or nasal congestion Card: Denies: chest pain, edema, dyspnea on exertion or orthopnea Resp: Reports: dyspnea and non-productive cough; Denies: productive cough GI: Denies: abdominal pain, nausea, vomiting, hematemesis, coffee ground emesis, diarrhea, constipation, bloating, hematochezia or melena : Denies: flank pain, difficulty voiding, dysuria, urinary frequency or urinary urgency Skin/Breast: Denies: rash or pruritus Psych: Denies: depression, visual hallucinations, auditory hallucinations or homicidal ideation PFS ED PFSH: Medical History Afib Anemia -baseline Hg around 9-10 -follow with Dr Bullock CAD (coronary artery disease) Chronic anticoagulation Due to mechanical mitral valve; coumadin Chronic hypercapnic respiratory failure COPD (chronic obstructive pulmonary disease) Depression On fluoxetine with good control Diastolic CHF GERD (gastroesophageal reflux disease) PPI HTN (hypertension) Hypothyroidism -continue levothyroxine Iron deficiency anemia Has required transfusion in past, last egd and colonoscopy ~2017 with diverticulosis and internal hemorrhoids, no clear source of bleeding SONYA (obstructive sleep apnea) Uses 2 L of oxygen at night does not use CPAP Parkinson disease Follows up with Dr. Rainey in [facility] Surgical History History of bilateral tubal ligation History of cholecystectomy History of total knee arthroplasty Left Mitral valve replaced Mechanical, on coumadin Family History Mother CAD (coronary artery disease) Diabetes Other Hypertension Social History Smoking and tobacco status: former smoker Quit status (tobacco): has quit using tobacco Year quit tobacco: 1994 PPD x 15 Years Second hand smoke exposure: No Alcohol intake: never Caregiver/support person: Yes Household members: spouse and children Housing: House Marital status: Current occupational status: retired and disabled History of recent travel: No Current gender identity: Female Physical Exam Const: COMMON NORMALS: no acute distress GENERAL APPEARANCE: cooperative and comfortable ORIENTATION/CONSCIOUSNESS: Yes awake, Yes oriented to person, Yes oriented to place and Yes oriented to time HENMT: COMMON NORMALS: normocephalic and hearing grossly normal bilaterally HEAD & SCALP: normocephalic Eye: COMMON NORMALS: no scleral icterus Neck/C-Spine: COMMON NORMALS: no JVD Resp: EFFORT & INSPECTION: Yes tachypneic, Yes respiratory distress (mild) and Yes pursed lip breathing Cardio: COMMON NORMALS: no JVD, regular rate, regular rhythm and No murmurs present (Cardio) RATE: regular rate RHYTHM: regular rhythm GI: COMMON NORMALS: Soft to palpation and No hepatosplenomegaly present AUSCULTATION: Yes normoactive bowel sounds PALPATION: Yes Soft to palpation, No Tenderness to palpation present (GI), No Guarding due to palpation present (GI) and Yes No hepatosplenomegaly present Extremity: COMMON NORMALS: normal to inspection, capillary refill normal, no clubbing, cyanosis or edema, no calf tenderness and no pedal edema Neuro: SENSORIUM/ORIENTATION: Yes oriented to person, Yes oriented to place and Yes oriented to time Psych: THOUGHT CONTENT: No delusions Skin: COMMON NORMALS: no rashes or lesions noted GENERAL SKIN EXAM: no rashes or lesions noted Course Vital Signs: Vital signs: Vital Signs Temperature 98.0 F 02/13/21 07:10 Pulse Rate 79 02/13/21 07:10 Respiratory Rate 18 02/13/21 07:10 Blood Pressure 123/55 02/13/21 07:10 Pulse Oximetry 100 02/13/21 07:10 MDM - Altered Mental Status MDM Narrative: Medical decision making narrative: Is hypercapnic started on BiPAP did improve. Also looks like she has a right lower lobe pneumonia. Was started on antibiotics cultures done patient was also given nebs and steroids discussed Dr. Perales orders are written Lab Data: Labs: Lab Results 02/12/21 02/12/21 02/12/21 Range/Units 16:10 16:10 16:10 WBC 3.3 L (4.0-10.0) 10^3/ uL RBC 3.14 L (4.1-5.3) 10^6/u L Hgb 9.0 L (11.5-15.3) g/dL Hct 31.4 L (37.0-47.0) % MCV 100.0 H (81-99) fL MCH 28.7 (28.0-34.0) pg MCHC 28.7 L (30.0-36.0) g/dL RDW 17.2 H (12.1-15.1) % Plt Count 114 L (130-400) 10^3/c mm MPV 9.8 (7.4-10.4) fL Neut % (Auto) 57.6 % Lymph % (Auto) 30.5 % [place] % (Auto) 9.2 % Eos % (Auto) 1.8 % Baso % (Auto) 0.9 % Neut # (Auto) 1.87 (1.8-7.7) 10^3/u L Lymph # (Auto) 1.0 (0.8-4.8) 10^3/u L [place] # (Auto) 0.3 (0.2-0.9) 10^3/u L Eos # (Auto) 0.1 (0.0-0.8) 10^3/u L Baso # (Auto) 0.0 (0.0-0.1) 10^3/u L Nucleated RBC % (a uto) 0 % Nucleated RBCs # 0.0 /100WBC Specimen Type Sample Site ABG pH (7.35-7.45) ABG pCO2 (35-45) mmHg ABG pO2 (80.0-100.0) mmH g ABG HCO3 (22-26) mmol/L ABG O2 Saturation ABG Base Excess (-2.0-2.0) mmol/ L César Test A-a O2 Gradient (5-10) mmHg Hematocrit (37-47) % Hgb O2 Saturation (95-100) % Carboxyhemoglobin (0.4-20.1) %THgb Methemoglobin (0.4-1.5) % Total Hemoglobin (12-16) g/dL Ionized Calcium (1.1-1.4) mmol/L O2 Delivery Device O2 Liters/Min % FiO2 % Child Support Officer ID Sodium 146 H (136-145) mmol/L Potassium 3.6 (3.5-5.1) mmol/L Chloride 100 (98-107) mmol/L Carbon Dioxide 41 H (22-29) mmol/L Anion Gap 8.6 (5-19) BUN 10 (8-23) mg/dL Creatinine 0.6 (0.5-0.9) mg/dL GFR Calculation Not Reportable Glucose 84 (65-115) mg/dL Calculated Osmolal ity 300 H (285-295) mOsm/k g Calcium 7.9 L (8.5-10.5) mg/dL Total Bilirubin 0.8 (0.15-1.2) mg/dL AST 11 (0-32) U/L ALT < 5 (0-33) U/L Alkaline Phosphata se 125 H (35-105) IU/L Creatine Kinase 49 (26-192) U/L Troponin T Baselin e 13 H (0-10) ng/L Total Protein 5.9 L (6.6-8.7) g/dL Albumin 3.6 (3.5-5.2) g/dL Globulin 2.3 (1.3-4.6) g/dL Urine Color (Yellow) Urine Appearance (CLEAR) Urine pH (5-7) Ur Specific Gravit y (1.005-1.030) Urine Protein (Negative) Urine Glucose (UA) (Normal) Urine Ketones (Negative) Urine Blood (Negative) Urine Nitrate (Negative) Urine Bilirubin (Negative) Urine Urobilinogen (Negative) mg/dL Ur Leukocyte Carlyn ase (Negative) Urine RBC (0-2) /hpf Urine WBC (0-5) /hpf Ur Squamous Epith Cells (0-5) /hpf Amorphous Sediment Urine Bacteria (NONE) /hpf Hyaline Casts /lpf Urine Mucus /hpf 02/12/21 02/12/21 Range/Units 16:10 16:26 WBC (4.0-10.0) 10^3/ uL RBC (4.1-5.3) 10^6/u L Hgb (11.5-15.3) g/dL Hct (37.0-47.0) % MCV (81-99) fL MCH (28.0-34.0) pg MCHC (30.0-36.0) g/dL RDW (12.1-15.1) % Plt Count (130-400) 10^3/c mm MPV (7.4-10.4) fL Neut % (Auto) % Lymph % (Auto) % [place] % (Auto) % Eos % (Auto) % Baso % (Auto) % Neut # (Auto) (1.8-7.7) 10^3/u L Lymph # (Auto) (0.8-4.8) 10^3/u L [place] # (Auto) (0.2-0.9) 10^3/u L Eos # (Auto) (0.0-0.8) 10^3/u L Baso # (Auto) (0.0-0.1) 10^3/u L Nucleated RBC % (a uto) % Nucleated RBCs # /100WBC Specimen Type Arterial Sample Site Radial, left ABG pH 7.35 (7.35-7.45) ABG pCO2 78.0 H* (35-45) mmHg ABG pO2 104.0 H (80.0-100.0) mmH g ABG HCO3 43.2 H (22-26) mmol/L ABG O2 Saturation 98.7 ABG Base Excess 14.9 H (-2.0-2.0) mmol/ L César Test Pos A-a O2 Gradient 0.1 L (5-10) mmHg Hematocrit 30.6 L (37-47) % Hgb O2 Saturation 96.5 (95-100) % Carboxyhemoglobin 1.5 (0.4-20.1) %THgb Methemoglobin 0.8 (0.4-1.5) % Total Hemoglobin 10.0 L (12-16) g/dL Ionized Calcium 1.2 (1.1-1.4) mmol/L O2 Delivery Device Nc O2 Liters/Min 2.0 % FiO2 28.0 % Child Support Officer ID glc Sodium 149.0 H (136-145) mmol/L Potassium 3.5 (3.5-5.1) mmol/L Chloride (98-107) mmol/L Carbon Dioxide (22-29) mmol/L Anion Gap (5-19) BUN (8-23) mg/dL Creatinine (0.5-0.9) mg/dL GFR Calculation Glucose 89.0 (65-115) mg/dL Calculated Osmolal ity (285-295) mOsm/k g Calcium (8.5-10.5) mg/dL Total Bilirubin (0.15-1.2) mg/dL AST (0-32) U/L ALT (0-33) U/L Alkaline Phosphata se (35-105) IU/L Creatine Kinase (26-192) U/L Troponin T Baselin e (0-10) ng/L Total Protein (6.6-8.7) g/dL Albumin (3.5-5.2) g/dL Globulin (1.3-4.6) g/dL Urine Color Yellow (Yellow) Urine Appearance Clear (CLEAR) Urine pH 7 (5-7) Ur Specific Gravit y 1.015 (1.005-1.030) Urine Protein Neg (Negative) Urine Glucose (UA) Norm (Normal) Urine Ketones Negative (Negative) Urine Blood 2+ H (Negative) Urine Nitrate Negative (Negative) Urine Bilirubin Neg (Negative) Urine Urobilinogen Norm (Negative) mg/dL Ur Leukocyte Carlyn ase Negative (Negative) Urine RBC 0-4 H (0-2) /hpf Urine WBC 0-4 H (0-5) /hpf Ur Squamous Epith Cells 15-25 H (0-5) /hpf Amorphous Sediment Not Reportable Urine Bacteria Trace (NONE) /hpf Hyaline Casts 10-15 H /lpf Urine Mucus 1+ /hpf Discharge Plan Discharge Patient Disposition: Admitted As Inpatient Admit Provider: Serg Perales Clinical Impression: Acute and chronic respiratory failure with hypoxia, Mitral valve replaced, Afib, COPD (chronic obstructive pulmonary disease), Diastolic CHF Condition: Stable Coding Level of Care Code ED Block Cuber for Norma Yeh
--- NOTE | 2021-02-12 15:43 | ECG_ITS ---
[facility] Test Date: 2021-02-12 Pat Name: Iris Garcia Department: Room: Gender: Female Water Attendant: : 1940 Requested By: Emile Perla Order Number: [id number] Krupa MD: Santos Adorno M.D. Measurements Intervals [place] Rate: 72 P: 259 GA: 213 QRS: 70 QRSD: 105 T: 31 QT: 429 QTc: 472 Interpretive Statements SINUS RHYTHM WITH FIRST DEGREE AV BLOCK Compared to ECG 12/31/2020 10:40:48 T-wave abnormality no longer present Electronically Signed On 02-12-2021 21:01:11 CDT by Santos Adorno M.D. [id number] f
[2021-02-12 16:19] LABS: Basophils % 0.9 %; Eosinophils # 0.1 10^3/uL (0.0-0.8); Eosinophils % 1.8 %; Hematocrit 31.4 % (37.0-47.0); Lymphocytes % 30.5 %; Mean Corpuscular HGB Conc 28.7 g/dL (30.0-36.0); Mean Corpuscular Hemoglobin 28.7 pg (28.0-34.0); Mean Platelet Volume 9.8 fL (7.4-10.4); Monocytes # 0.3 10^3/uL (0.2-0.9); Monocytes % 9.2 %; Neutrophils # 1.87 10^3/uL (1.8-7.7); Neutrophils % 57.6 %; Nucleated Red Blood Cells % 0 %; Platelet Count 114 10^3/cmm (130-400); Red Blood Count 3.14 10^6/uL (4.1-5.3); Red Cell Distribution Width 17.2 % (12.1-15.1); White Blood Count 3.3 10^3/uL (4.0-10.0)
[2021-02-12 16:28] LABS: Urine Appearance Clear (CLEAR); Urine Color Yellow (Yellow)
[2021-02-12 16:29] LABS: Add Urine Microscopic? YES; Bilirubin Urine Neg (Negative); Blood Urine 2+ (Negative); Glucose Urine UA Norm (Normal); Ketones Urine Negative (Negative); Leukocyte Esterase Urine Negative (Negative); Nitrate Urine Negative (Negative); Protein Urine Neg (Negative); Specific Gravity, Urine 1.015 (1.005-1.030); Urobilinogen Urine Norm (Negative); pH Urine 7 (5-7)
[2021-02-12 16:37] LABS: Add Urine Culture? No; Bacteria Urine TRACE /hpf; Mucus Urine 1+ /hpf; RBC Urine 0-4 /hpf (0-2); Squamous Epithelial Cell Urine 15-25 /hpf (0-5); WBC Urine 0-4 /hpf (0-5)
[2021-02-12 16:38] LABS: ABG PH Result 7.35 (7.35-7.45); Alveolar-Arterial Oxygen Gradi 0.1 mmHg (5-10); Arterial Blood Gas Hematocrit 30.6 % (37-47); Base Excess ABG 14.9 mmol/L (-2.0-2.0); Blood Gas Allen Test Pos; Blood Gas Operator Identificat glc; Blood Gas Sample Site Radial, left; Blood Gas Sample Type Arterial; Carboxyhemoglobin 1.5 %THgb (0.4-20.1); HCO3 ABG 43.2 mmol/L (22-26); HGB O2 Sat 96.5 % (95-100); Ionized Calcium Level - ABG 1.2 mmol/L (1.1-1.4); Methemoglobin 0.8 % (0.4-1.5); Oxygen Device NC; Oxygen Saturation ABG 98.7; Potassium Level - ABG 3.5 mmol/L (3.5-5.0)
[2021-02-12 16:43] LABS: Alanine Aminotransferase < 5 U/L (0-33); Albumin Level 3.6 g/dL (3.5-5.2); Alkaline Phosphatase 125 IU/L (35-105); Anion Gap 8.6 (5-19); Aspartate Amino Transferase 11 U/L (0-32); Blood Urea Nitrogen 10 mg/dL (8-23); Calcium 7.9 mg/dL (8.5-10.5); Chloride 100 mmol/L (98-107); Creatine Phosphokinase 49 U/L (26-192); Globulin 2.3 g/dL (1.3-4.6); Glucose 84 mg/dL (65-115); Osmolality Calculated 300 mOsm/kg (285-295); Potassium 3.6 mmol/L (3.5-5.1); Sodium 146 mmol/L (136-145); Total Bilirubin 0.8 mg/dL (0.15-1.2); Total Protein 5.9 g/dL (6.6-8.7)
[2021-02-12 16:44] LABS: Troponin(5th) Baseline 13 ng/L (0-10)
[2021-02-12 16:46] LABS: Carbon Dioxide 41 mmol/L (22-29)
--- NOTE | 2021-02-12 16:55 | XRR_ITS ---
PROCEDURE INFORMATION: Exam: XR Chest Exam date and time: 02/12/2021 4:55 PM Age: 80 years old Clinical indication: Cough and dyspnea; Prior surgery; Surgery type: Heart valve; Additional info: Dyspnea/cough TECHNIQUE: Imaging protocol: XR of the chest. Views: 1 view. COMPARISON: CR XR chest 1V portable [id number] 01/03/2021 3:38 PM FINDINGS: Lungs: Stable COPD . Mild peribronchial thickening and/or mild perihilar linear markings consistent with bronchitis and/or viral pneumonitis and/or reactive airway disease and/or atypical pulmonary interstitial edema. Possible pulmonary vascular congestion. Pleural spaces: Unremarkable. No pleural effusion. No pneumothorax. Heart/Mediastinum: Stable heart valve replacement. 1.9 cm right hilar mass versus high density pulmonary artery. Bones/joints: Stable sternotomy. XR/XR chest 1V portable [id number] IMPRESSION: 1. 1.9 cm right hilar mass versus high density pulmonary artery. 2. Stable COPD . 3. Mild peribronchial thickening and/or mild perihilar linear markings consistent with bronchitis and/or viral pneumonitis and/or reactive airway disease and/or atypical pulmonary interstitial edema. 4. Possible pulmonary vascular congestion.
[2021-02-12] MEDS: levofloxacin-dextrose 5 % 750 MG/150 ML PREMIX 100 MG IV (17:40)
[2021-02-12] MEDS: ipratropium-albuterol 3 mL Neb INHALATION ×2 (18:14→19:59)
[2021-02-12 18:48] LABS: INR 1.64 (0.8-1.2)
--- NOTE | 2021-02-12 18:57 | P.HP_ITS ---
Providers/Chief Complaint Admitting Physician: Serg Perales MD Primary Care Provider: Michael Hampton DO Chief Complaint: LETHARGIC History of Present Illness Iris Garcia is a 80 year old female with PMh of microcytic hypochromic anemia because of iron deficiency, mitral valve stenosis post mechanical [facility] mitral valve replacement, atrial fibrillation, on Coumadin chronically, recurrent/chronic anemia requiring frequent RBC transfusion, diastolic congestive heart failure, COPD on 3 L oxygen at home. Parkinson's disease. Was admitted with chief complaint of cough with productive sputum, worsening shortness of breath, going on for last couple of days, fever at home, generalized weakness, worsening b/l lower extremity swelling. She is complaining of shortness of breath even when she is lying down, denies any PND. Upon arrival in the ER she was worked up for above mentioned complaints. Imaging studies: XR Chest: 1.9 cm right hilar mass versus high density pulmonary artery. Mild peribronchial thickening and/or mild perihilar linear markings consistent with bronchitis and/or viral pneumonitis and/or reactive airway disease and/or atypical pulmonary interstitial edema. Possible pulmonary vascular congestion. Pertinent labs: WBC: 3.3 , H/H; , PLT : 114, serum sodium: 146, serum potassium: 3.6, PT/INR : 20/1.64 ABG : Ph : 7.35, PCO2: 78, PO2: 104, HCO3: 43, FIO2: 28 % ECA Medications: Levofloxacin 750 mg i.v * 1 dose, solumedrol 125 mg i.v * 1 dose, Duo Nebs Review of Systems Card: Denies: palpitations or edema Resp: Denies: dyspnea GI: Denies: abdominal pain, nausea, vomiting, diarrhea or constipation : Denies: flank pain Musc: Denies: back pain, extremity pain or extremity swelling Neuro: Denies: headache(s), difficulty walking or confusion Medications/Allergies Home Medications Medication Instructions Recorded Confirmed Last Taken Type fluoxetine 10 mg capsule 10 mg PO DAILY@09 cap 11/06/19 02/12/21 02/12/21 History polyethylene glycol 3350 17 17 gm PO DAILY PRN 11/06/19 02/12/21 02/25/20 History gram/dose oral powder carbidopa 10 mg-levodopa 100 mg 1 tab PO TID@, tab 03/12/20 02/12/21 02/12/21 History disintegrating tablet tolterodine 2 mg tablet 2 mg PO BID@03/12/20 02/12/21 02/12/21 History levothyroxine 50 mcg capsule 50 mcg PO DAILY@05/21/20 02/12/21 02/12/21 History ferrous gluconate 324 mg PO BID@11/10/20 02/12/21 02/12/21 History potassium chloride [Klor-Con 10] 20 meq PO BID@11/10/20 02/12/21 02/12/21 History sennosides-docusate sodium 2 tab PO BID PRN 11/10/20 02/12/21 Unknown History pantoprazole 40 mg PO BID@0900,209912/31/20 02/12/21 02/12/21 History warfarin 2 mg tablet 4 mg PO DAILY@0900 tab 01/07/21 02/12/21 02/12/21 History Vitamin D-3 with Aloe 1 tab PO DAILY 02/12/21 02/12/21 Unknown History albuterol sulfate [ProAir 1 inh INHALATION Q6H PRN 02/12/21 02/12/21 Unknown History RespiClick] bumetanide 1 mg PO BID@0900,2100 PRN 02/12/21 02/12/21 02/12/21 History fluticasone propion-salmeterol 1 inh INHALATION BID@0900,2100 02/12/21 02/12/21 02/12/21 History [Advair Diskus] isosorbide mononitrate 30 mg PO BID@0900,209902/12/21 02/12/21 02/12/21 History metoprolol tartrate 12.5 mg PO BID@0900,209902/12/21 02/12/21 02/12/21 History nitroglycerin 0.4 mg SUBLINGUAL Q5M PRN 02/12/21 02/12/21 Unknown History polyethylene glycol 3350 [Miralax] 17 g PO DAILY@0900 02/12/21 02/12/21 Unknown History rosuvastatin 10 mg PO DAILY@0900 02/12/21 02/12/21 02/12/21 History tramadol See Rx Instructions .ROUTE 02/12/21 02/12/21 Unknown History .COMPLEX PRN Allergies Allergy/AdvReac Type Severity Reaction Status Date / Time penicillin G Allergy UNK Verified 12/31/20 08:42 PFSH Acute PFSH: Medical History Afib Anemia -baseline Hg around 9-10 -follow with Dr Bullock CAD (coronary artery disease) Chronic anticoagulation Due to mechanical mitral valve; coumadin Chronic hypercapnic respiratory failure COPD (chronic obstructive pulmonary disease) Depression On fluoxetine with good control Diastolic CHF GERD (gastroesophageal reflux disease) PPI HTN (hypertension) Hypothyroidism -continue levothyroxine Iron deficiency anemia Has required transfusion in past, last egd and colonoscopy ~2017 with diverticulosis and internal hemorrhoids, no clear source of bleeding SONYA (obstructive sleep apnea) Uses 2 L of oxygen at night does not use CPAP Parkinson disease Follows up with Dr. Rainey in [place]'s ring Weakness Surgical History History of bilateral tubal ligation History of cholecystectomy History of total knee arthroplasty Left Mitral valve replaced Mechanical, on coumadin Family History Mother CAD (coronary artery disease) Diabetes Other Hypertension Social History Smoking and tobacco status: former smoker Quit status (tobacco): has quit using tobacco Year quit tobacco: 1994 - PPD x 15 Years Second hand smoke exposure: No Alcohol intake: never Caregiver/support person: Yes Household members: spouse and children Housing: House Marital status: Current occupational status: retired and disabled History of recent travel: No Current gender identity: Female Vitals/I&O/Wt Last Vital Signs Temp 98.6 F 02/12/21 15:27 Pulse 82 02/12/21 18:56 Resp 18 02/12/21 18:14 BP 143/52 02/12/21 18:00 Pulse Ox 99 02/12/21 18:16 Weight last 48 hrs Weight 61.235 kg Physical Exam Const: COMMON NORMALS: patient oriented x3 HENMT: COMMON NORMALS: normocephalic and atraumatic HEAD & SCALP: normocephalic and atraumatic Chest: CHEST: Yes Symmetrical chest wall rise Resp: COMMON NORMALS: clear to auscultation bilaterally EFFORT & INSPECTION: Yes symmetric chest movement AUSCULTATION: clear to auscultation bilaterally Cardio: COMMON NORMALS: S1 normal heart sound present and S2 normal heart sound present RATE: regular rate RHYTHM: regular rhythm HEART SOUNDS: S1 normal heart sound present and S2 normal heart sound present PERIPHERAL PULSES: Peripheral pulses 2+ throughout GI: COMMON NORMALS: Normal to inspection, nondistended, normoactive bowel sounds present, Soft to palpation, non-tender, No hepatosplenomegaly present and no masses AUSCULTATION: Yes normoactive bowel sounds PALPATION: Yes Soft to palpation and Yes No hepatosplenomegaly present RECTAL EXAM: deferred Extremity: NARRATIVE EXTREMITY EXAM: 2+ B/L L/E Pitting Edema which chronic skin changes Neuro: COMMON NORMALS: patient oriented x3 Data : 02/12/21 16:10 02/12/21 16:10 Micro: Microbiology 02/12/21 17:35 Blood Culture - Preliminary Blood SPECIMEN COLLECTED 02/12/21 17:35 Blood Culture - Preliminary Blood SPECIMEN COLLECTED A&P Assessment and plan (1) PNA (pneumonia): Levofloxacin 500 mg I.V Daily Monitor x-ray chest Monitor ABG Sputum culture Status: Acute (2) Chronic respiratory failure with hypoxia and hypercapnia: Compensated hypercapnic respiratory failure. Currently on BiPAP. Patient uses BiPAP at night and as needed BiPAP during daytime. We will continue her on BiPAP. She uses 2 to 3 L oxygen at home mostly during daytime Status: Acute (3) CHF (congestive heart failure): Mildly Decompensated HFpEF Bumex mg I.V Q12 H Daily MT 12.5 MG Q12 H DAILY I/O Charting Daily Weight K>4 , Mg>2 Status: Acute (4) COPD (chronic obstructive pulmonary disease): COPD Exacerbation DUo nebs Pulmonary Toilet Supplemental oxygen BIPAP Status: Acute (5) Anemia: Status: Acute (6) Afib: Status: Acute (7) Mitral valve replaced: Status: Acute (8) Chronic anticoagulation: Status: Acute Additional A&P Information Code Status :AND DVT PPX: On warfarin Disposition :Home Attestations Medical Necessity Statement*: Patient needs to be in hospital for the management of PNA and Heart failure.Anticipated LOS Greater then 2 midnights. Coding Level of Care Code Acute Service Writer Advisor for [facility] Fwd Diagnoses PNA (pneumonia) J18.9 Chronic respiratory failure with hypoxia and hypercapnia J96.11; J96.12 CHF (congestive heart failure) I50.9 COPD (chronic obstructive pulmonary disease) J44.9 Anemia D64.9 Afib I48.91 Mitral valve replaced Z95.2 Chronic anticoagulation Z79.01
[2021-02-12] MEDS: ferrous gluconate 324 mg Tablet PO (20:50)
[2021-02-12] MEDS: metoprolol tartrate 25 mg Tablet 12.5 MG PO (20:50)
[2021-02-12] MEDS: isosorbide mononitrate ER 60 mg Tablet 30 MG PO (20:50)
[2021-02-12] MEDS: pantoprazole DR 40 mg Tablet PO (20:50)
[2021-02-12] MEDS: tolterodine 2 mg Tablet PO (20:51)
[2021-02-12] MEDS: bumetanide 0.25 mg/mL SDV 4 mL 1 MG IV (20:51)
[2021-02-12] MEDS: potassium chloride ER 10 mEq Tablet 20 MEQ PO (20:51)
--- NOTE | 2021-02-12 21:43 | ECG_ITS ---
[facility] ED Test Date: 2021-02-12 Pat Name: Iris Garcia Department: Room: 251 Gender: Female Media Associate: : 1940 Requested By: Emile Perla Order Number: [id number] Krupa MD: Tere Teixeira M.D. Measurements Intervals [place] Rate: 83 P: MA: QRS: 33 QRSD: 99 T: -1 QT: 358 QTc: 422 Interpretive Statements Possible ATRIAL FIBRILLATION NONSPECIFIC ST & T-WAVE ABNORMALITY ABNORMAL RHYTHM ECG Compared to ECG 02/12/2021 15:57:36 T-wave abnormality now present Sinus rhythm no longer present First degree AV block no longer present Electronically Signed On 02-16-2021 12:50:02 CDT by Tere Teixeira M.D. [email or web address]
[2021-02-12 22:45] LABS: Basophils % 0.4 %; Hematocrit 33.2 % (37.0-47.0); Hemoglobin 9.4 g/dL (11.5-15.3); Lymphocytes # 0.2 10^3/uL (0.8-4.8); Lymphocytes % 4.3 %; Mean Corpuscular HGB Conc 28.3 g/dL (30.0-36.0); Mean Corpuscular Hemoglobin 28.3 pg (28.0-34.0); Mean Platelet Volume 9.7 fL (7.4-10.4); Monocytes # 0.1 10^3/uL (0.2-0.9); Monocytes % 1.1 %; Neutrophils # 4.33 10^3/uL (1.8-7.7); Neutrophils % 93.8 %; Nucleated Red Blood Cells % 0 %; Platelet Count 110 10^3/cmm (130-400); Red Blood Count 3.32 10^6/uL (4.1-5.3); Red Cell Distribution Width 17.1 % (12.1-15.1); White Blood Count 4.6 10^3/uL (4.0-10.0)
[2021-02-13] VITALS (16 sets, daily range): BP systolic 100–123; BP diastolic 55–68; PULSE 71–84; RESP 17–26; TEMP 36.4–36.9; O2SAT 92–100
[2021-02-13] MEDS: ipratropium-albuterol 3 mL Neb INHALATION ×4 (02:05→20:05)
[2021-02-13] MEDS: bumetanide 0.25 mg/mL SDV 4 mL 1 MG IV ×2 (06:13→18:07)
[2021-02-13] MEDS: ferrous gluconate 324 mg Tablet PO ×2 (08:39→20:35)
[2021-02-13] MEDS: sennosides-docusate Tablet 2 TAB PO (08:39)
[2021-02-13] MEDS: levothyroxine 50 mcg Tablet PO (08:39)
[2021-02-13] MEDS: warfarin 2 mg Tablet 4 MG PO (08:39)
[2021-02-13] MEDS: potassium chloride ER 10 mEq Tablet 20 MEQ PO ×2 (08:41→20:35)
[2021-02-13] MEDS: pantoprazole DR 40 mg Tablet PO ×2 (08:41→20:35)
[2021-02-13] MEDS: atorvastatin 40 mg Tablet PO (08:41)
[2021-02-13] MEDS: isosorbide mononitrate ER 60 mg Tablet 30 MG PO ×2 (08:42→20:35)
[2021-02-13] MEDS: fluoxetine 10 mg Capsule PO (08:42)
[2021-02-13] MEDS: tolterodine 2 mg Tablet PO ×2 (08:55→20:35)
[2021-02-13] MEDS: metoprolol tartrate 25 mg Tablet 12.5 MG PO ×2 (08:55→20:36)
[2021-02-13 09:14] LABS: Basophils % 0.3 %; Hematocrit 33.4 % (37.0-47.0); Hemoglobin 9.7 g/dL (11.5-15.3); Lymphocytes # 0.6 10^3/uL (0.8-4.8); Lymphocytes % 17.7 %; Mean Corpuscular Hemoglobin 28.9 pg (28.0-34.0); Mean Corpuscular Volume 99.4 fL (81-99); Mean Platelet Volume 9.6 fL (7.4-10.4); Monocytes # 0.4 10^3/uL (0.2-0.9); Monocytes % 11.5 %; Neutrophils # 2.26 10^3/uL (1.8-7.7); Neutrophils % 70.2 %; Nucleated Red Blood Cells % 0 %; Platelet Count 125 10^3/cmm (130-400); Red Blood Count 3.36 10^6/uL (4.1-5.3); Red Cell Distribution Width 17.1 % (12.1-15.1); White Blood Count 3.2 10^3/uL (4.0-10.0)
[2021-02-13 10:05] LABS: NT Pro B Type Natriuretic Pept 811 pg/mL (0-450); Procalcitonin 0.04 ng/mL (0-0.5)
[2021-02-13 10:16] LABS: Alanine Aminotransferase 7 U/L (0-33); Albumin Level 4.1 g/dL (3.5-5.2); Alkaline Phosphatase 137 IU/L (35-105); Anion Gap 10.5 (5-19); Aspartate Amino Transferase 12 U/L (0-32); Blood Urea Nitrogen 12 mg/dL (8-23); Calcium 8.7 mg/dL (8.5-10.5); Carbon Dioxide 40 mmol/L (22-29); Chloride 100 mmol/L (98-107); Globulin 2.6 g/dL (1.3-4.6); Glucose 103 mg/dL (65-115); Magnesium 2.3 mg/dL (1.7-2.3); Osmolality Calculated 304 mOsm/kg (285-295); Potassium 3.5 mmol/L (3.5-5.1); Sodium 147 mmol/L (136-145); Total Bilirubin 1.1 mg/dL (0.15-1.2); Total Protein 6.7 g/dL (6.6-8.7)
--- NOTE | 2021-02-13 11:37 | P.PN_ITS ---
Subjective Subjective: Interval history: Patient was seen and examined this morning.No acute event overnight.SOB has improved. Currently she is saturating well on 2Ls oxygen via [place] and uses BIPAP at night. Good Urine output with Bumex. Medications: Reviewed: Yes Vitals/I&O/Wt Last Vital Signs Temp 97.6 F 02/13/21 11:29 Pulse 77 02/13/21 11:29 Resp 18 02/13/21 11:29 BP 102/59 02/13/21 11:29 Pulse Ox 100 02/13/21 11:29 02/12/21 02/13/21 02/13/21 22:59 06:59 14:59 Intake Total 250 / 250 240 / 490 Output Total 300 / 300 650 / 950 600 / 600 Balance -50 / -50 -410 / -460 -600 / -600 Weight last 48 hrs Weight 63.639 kg Weight 61.235 kg Physical Exam Const: COMMON NORMALS: patient oriented x3 HENMT: COMMON NORMALS: normocephalic and atraumatic HEAD & SCALP: normocephalic and atraumatic Chest: CHEST: Yes Symmetrical chest wall rise Resp: COMMON NORMALS: clear to auscultation bilaterally EFFORT & INSPECTION: Yes symmetric chest movement AUSCULTATION: clear to auscultation bilaterally Cardio: COMMON NORMALS: S1 normal heart sound present and S2 normal heart sound present HEART SOUNDS: S1 normal heart sound present and S2 normal heart sound present GI: COMMON NORMALS: Normal to inspection, nondistended, normoactive bowel sounds present, Soft to palpation, non-tender, No hepatosplenomegaly present and no masses AUSCULTATION: Yes normoactive bowel sounds PALPATION: Yes Soft to palpation and Yes No hepatosplenomegaly present RECTAL EXAM: deferred Extremity: NARRATIVE EXTREMITY EXAM: 2+ B/L L/E Pitting Edema which chronic skin changes Neuro: COMMON NORMALS: patient oriented x3 Data : 02/13/21 08:58 02/13/21 08:58 Micro: Microbiology 02/12/21 17:35 Blood Culture - Preliminary Blood SPECIMEN COLLECTED 02/12/21 17:35 Blood Culture - Preliminary Blood SPECIMEN COLLECTED A&P Assessment and plan (1) PNA (pneumonia): Levofloxacin 500 mg I.V Daily Monitor x-ray chest Monitor ABG Sputum culture Status: Acute (2) Chronic respiratory failure with hypoxia and hypercapnia: Compensated hypercapnic respiratory failure. Currently on BiPAP. Patient uses BiPAP at night and as needed BiPAP during daytime. We will continue her on BiPAP. She uses 2 to 3 L oxygen at home mostly during daytime Status: Acute (3) CHF (congestive heart failure): Mildly Decompensated HFpEF Bumex mg I.V Q12 H Daily MT 12.5 MG Q12 H DAILY I/O Charting Daily Weight K>4 , Mg>2 Status: Acute (4) COPD (chronic obstructive pulmonary disease): COPD Exacerbation DUo nebs Pulmonary Toilet Supplemental oxygen BIPAP Status: Acute (5) Anemia: Status: Acute (6) Afib: Status: Acute (7) Mitral valve replaced: Status: Acute (8) Chronic anticoagulation: Status: Acute Additional A&P Information Code Status :AND DVT PPX: On warfarin Disposition :Home Attestations Medical Necessity Statement*: Patient needs to be in hospital for the management of PNA. Coding Level of Care Code Acute Gas Truck Driver for [facility] Rao Diagnoses PNA (pneumonia) J18.9 Chronic respiratory failure with hypoxia and hypercapnia J96.11; J96.12 CHF (congestive heart failure) I50.9 COPD (chronic obstructive pulmonary disease) J44.9 Anemia D64.9 Afib I48.91 Mitral valve replaced Z95.2 Chronic anticoagulation Z79.01
[2021-02-13] MEDS: levofloxacin-dextrose 5 % 500 MG/100 ML PREMIX 100 MG IV (18:08)
[2021-02-14] VITALS (15 sets, daily range): BP systolic 107–138; BP diastolic 54–74; PULSE 66–88; RESP 16–24; TEMP 36–37.1; O2SAT 90–100; BMI 26.8
--- NOTE | 2021-02-14 00:18 | PC.NURSE ---
IV site is red, will dc and add a new line when able.
[2021-02-14] MEDS: ipratropium-albuterol 3 mL Neb INHALATION ×4 (03:12→20:04)
[2021-02-14] MEDS: bumetanide 0.25 mg/mL SDV 4 mL 1 MG IV ×2 (06:07→18:16)
[2021-02-14 07:16] LABS: Basophils % 0.9 %; Eosinophils # 0.1 10^3/uL (0.0-0.8); Eosinophils % 2.1 %; Hematocrit 30.6 % (37.0-47.0); Hemoglobin 8.9 g/dL (11.5-15.3); Lymphocytes # 0.7 10^3/uL (0.8-4.8); Lymphocytes % 21.8 %; Mean Corpuscular HGB Conc 29.1 g/dL (30.0-36.0); Mean Corpuscular Hemoglobin 28.7 pg (28.0-34.0); Mean Corpuscular Volume 98.7 fL (81-99); Mean Platelet Volume 9.9 fL (7.4-10.4); Monocytes # 0.3 10^3/uL (0.2-0.9); Monocytes % 9.5 %; Neutrophils # 2.13 10^3/uL (1.8-7.7); Neutrophils % 65.4 %; Nucleated Red Blood Cells % 0 %; Platelet Count 112 10^3/cmm (130-400); Red Cell Distribution Width 17.4 % (12.1-15.1); White Blood Count 3.3 10^3/uL (4.0-10.0)
[2021-02-14 07:37] LABS: Anion Gap 8.5 (5-19); Blood Urea Nitrogen 13 mg/dL (8-23); Calcium 8.3 mg/dL (8.5-10.5); Chloride 100 mmol/L (98-107); Glucose 92 mg/dL (65-115); Magnesium 2.1 mg/dL (1.7-2.3); Osmolality Calculated 302 mOsm/kg (285-295); Potassium 3.5 mmol/L (3.5-5.1); Sodium 146 mmol/L (136-145)
[2021-02-14] MEDS: potassium chloride ER 10 mEq Tablet 20 MEQ PO ×2 (08:11→20:26)
[2021-02-14] MEDS: metoprolol tartrate 25 mg Tablet 12.5 MG PO ×2 (08:11→20:25)
[2021-02-14] MEDS: ferrous gluconate 324 mg Tablet PO ×2 (08:11→20:25)
[2021-02-14] MEDS: fluoxetine 10 mg Capsule PO (08:11)
[2021-02-14] MEDS: pantoprazole DR 40 mg Tablet PO ×2 (08:11→20:26)
[2021-02-14] MEDS: isosorbide mononitrate ER 60 mg Tablet 30 MG PO (08:12)
[2021-02-14] MEDS: levothyroxine 50 mcg Tablet PO (08:12)
[2021-02-14] MEDS: atorvastatin 40 mg Tablet PO (08:13)
[2021-02-14] MEDS: warfarin 2 mg Tablet 4 MG PO (08:15)
[2021-02-14 08:24] LABS: Carbon Dioxide 41 mmol/L (22-29)
[2021-02-14] MEDS: polyethylene glycol 3350 Pkt 17 gm PO (09:50)
--- NOTE | 2021-02-14 10:28 | PC.CHAP ---
Pastoral Care Encounter/Spiritual Assessment Type of Contact [] Declined leather scraper visit [] Patient/Family/Request visit [] Outpatient visit [] Follow-up visit [] Physician referral [] Code/Alert [x] Routine visit [] Staff referral [] Actively dying [] Patient sleeping [] Family support [] [] Out of room [] Palliative care [] [] Receiving care in room [] Pre-surgical visit [] Trauma [] Long length of stay [] ICU visit [] Other: Relational/Emotional Strength [] Patient feels connected with others/family/visitors/staff [] Distress [] Loneliness/isolation [] Abandonment Spirituality of Patient [] Person of Vivian [] Attends Druze of their Vivian [] Believes in Prayer [] Reads Bible or Congregation materials [] There are Spiritual issues to be addressed Licensed Social Worker Interventions [x] Prayer [] Active listening [] Non-anxious presence [] Spiritual/emotional support [] Crisis/trauma care [] Spiritual counseling [] Bereavement support [] Provided bereavement packet [] Provided Bible/devotional materials [] Provided toy/stuffed animal, coloring book to patient or family member [] Provided Communion [] Anointing/[place] [] Salvation [] Completed spiritual assessment [] Other: Impact on Illness or Injury [] Angry [] Fearful [] Anxious [] Often cries [] Exhaustion [] Unable to work [] Unable to attend judaism [] Unable to walk/stand [] Unable to read [] Unable to drive [] Unable to eat/drink [] Unable to sleep [] Unable to be with family [] Patient intubated [] Other: Summary Pt a room mate of a Pt the leather scraper was visiting and she was sleeping. However, she was very restless in her sleep, calling out, and moving limbs. Licensed Social Worker offered a prayer on her behalf for restful slumber. Time spent with patient 1<
[2021-02-14] MEDS: tolterodine 2 mg Tablet PO ×2 (10:47→22:01)
[2021-02-14] MEDS: lidocaine 1% 5 ML in potassium chloride premix 100 ML 50 ML IV (13:22)
[2021-02-14 13:37] LABS: Magnesium 2.3 mg/dL (1.7-2.3)
--- NOTE | 2021-02-14 13:40 | P.PN_ITS ---
Subjective Subjective: Interval history: Patient was seen and examined this morning.Had one episode of NSVT at night. SOB has improved. Currently she is saturating well on 2Ls oxygen via [place] and uses BIPAP at night. Medications: Reviewed: Yes Vitals/I&O/Wt Last Vital Signs Temp 98.7 F 02/14/21 11:23 Pulse 88 02/14/21 11:23 Resp 18 02/14/21 11:23 BP 115/63 02/14/21 11:23 Pulse Ox 90 02/14/21 11:23 02/13/21 02/14/21 02/14/21 22:59 06:59 14:59 Intake Total 100 / 340 50 / 390 120 / 120 Output Total 300 / 900 200 / 200 Balance 100 / -260 -250 / -510 -80 / -80 Weight last 48 hrs Weight 62.369 kg Weight 63.639 kg Weight 61.235 kg Physical Exam Const: COMMON NORMALS: patient oriented x3 HENMT: COMMON NORMALS: normocephalic and atraumatic HEAD & SCALP: normoceph alic and atraumatic Chest: CHEST: Yes Symmetrical chest wall rise Resp: COMMON NORMALS: clear to auscultation bilaterally EFFORT & INSPECTION: Yes symmetric chest movement AUSCULTATION: clear to auscultation bilaterally Cardio: COMMON NORMALS: S1 normal heart sound present and S2 normal heart sound present HEART SOUNDS: S1 normal heart sound present and S2 normal heart sound present GI: COMMON NORMALS: Normal to inspection, nondistended, normoactive bowel sounds present, Soft to palpation, non-tender, No hepatosplenomegaly present and no masses AUSCULTATION: Yes normoactive bowel sounds PALPATION: Yes Soft to palpation and Yes No hepatosplenomegaly present RECTAL EXAM: deferred Extremity: NARRATIVE EXTREMITY EXAM: 2+ B/L L/E Pitting Edema which chronic skin changes Neuro: COMMON NORMALS: patient oriented x3 Data : 02/14/21 06:53 02/14/21 06:53 Micro: Microbiology 02/12/21 17:35 Blood Culture - Preliminary Blood 02/12/21 17:35 Blood Culture - Preliminary Blood A&P Assessment and plan (1) PNA (pneumonia): Patient came in with worsening SOB, Cough and sputum production.Xray chest was suggestive of infiltrates. Levofloxacin 500 mg I.V Daily Monitor x-ray chest Monitor ABG Sputum culture if Produced Status: Acute (2) Chronic respiratory failure with hypoxia and hypercapnia: Compensated hypercapnic respiratory failure. Currently on BiPAP. Patient uses BiPAP at night and as needed BiPAP during dayt [place]. She uses 2 to 3 L oxygen at home mostly during daytime Duo Nebs Status: Acute (3) CHF (congestive heart failure): Mildly Decompensated HFpEF Bumex mg I.V Q12 H Daily MT 12.5 MG Q12 H DAILY I/O Charting Daily Weight K>4 , Mg>2 Status: Acute (4) COPD (chronic obstructive pulmonary disease): COPD Exacerbation DUo nebs Pulmonary Toilet Supplemental oxygen. No need for steroids for now. BIPAP Status: Acute (5) Anemia: Status: Acute (6) Afib: Status: Acute (7) Mitral valve replaced: Status: Acute (8) Chronic anticoagulation: On comudin. Monitor INR Status: Acute Additional A&P Information Code Status :AND DVT PPX: On warfarin Disposition :Home Attestations Medical Necessity Statement*: Patient needs to be in hospital for the management of PNA Coding Level of Care Code Acute Library Serials Assistant for [facility] Fwd Diagnoses PNA (pneumonia) J18.9 Chronic respiratory failure with hypoxia and hypercapnia J96.11; J96.12 CHF (congestive heart failure) I50.9 COPD (chronic obstructive pulmonary disease) J44.9 Anemia D64.9 Afib I48.91 Mitral valve replaced Z95.2 Chronic anticoagulation Z79.01
[2021-02-14] MEDS: levofloxacin-dextrose 5 % 500 MG/100 ML PREMIX 100 MG IV (18:07)
[2021-02-15] VITALS (19 sets, daily range): BP systolic 95–128; BP diastolic 51–71; PULSE 64–102; RESP 16–24; TEMP 36.1–37.1; O2SAT 90–100; BMI 26.8
[2021-02-15] MEDS: ipratropium-albuterol 3 mL Neb INHALATION ×4 (03:03→20:55)
[2021-02-15 05:43] LABS: Basophils % 0.9 %; Eosinophils # 0.1 10^3/uL (0.0-0.8); Eosinophils % 2.7 %; Hematocrit 30.7 % (37.0-47.0); Hemoglobin 8.9 g/dL (11.5-15.3); Lymphocytes # 0.7 10^3/uL (0.8-4.8); Lymphocytes % 21.7 %; Mean Corpuscular Hemoglobin 29.3 pg (28.0-34.0); Mean Platelet Volume 10.6 fL (7.4-10.4); Monocytes # 0.4 10^3/uL (0.2-0.9); Monocytes % 11.4 %; Neutrophils % 63.3 %; Nucleated Red Blood Cells % 0 %; Platelet Count 106 10^3/cmm (130-400); Red Blood Count 3.04 10^6/uL (4.1-5.3); Red Cell Distribution Width 17.5 % (12.1-15.1); White Blood Count 3.3 10^3/uL (4.0-10.0)
[2021-02-15 05:57] LABS: INR 2.35 (0.8-1.2)
--- NOTE | 2021-02-15 06:00 | XRR_ITS ---
PROCEDURE INFORMATION: Exam: XR Chest Exam date and time: 02/15/2021 6:12 AM Age: 80 years old Clinical indication: Condition or disease; Lung condition and disease; Pneumonia; Shortness of breath; Additional info: Pna/sob TECHNIQUE: Imaging protocol: XR of the chest. Views: 1 view. COMPARISON: CR XR chest 1V portable [id number] 02/12/2021 4:52 PM FINDINGS: Lungs: Low lung volumes. There is increased interstitial markings and haziness of the lungs, which in the setting of cardiomegaly suggestive of pulmonary congestion. Pneumonia should be excluded clinically. No large pleural effusion or pneumothorax. Pleural spaces: See Lungs finding. Heart/Mediastinum: Stable cardiomediastinal silhouette. Prosthetic cardiac valve noted. Bones/joints: Median sternotomy changes seen. Degenerative changes of the spine seen. XR/XR chest 1V portable [id number] IMPRESSION: Imaging findings suggestive of pulmonary congestion. Pneumonia should be excluded clinically.
[2021-02-15 06:08] LABS: Anion Gap 9.1 (5-19); Blood Urea Nitrogen 16 mg/dL (8-23); Carbon Dioxide 37 mmol/L (22-29); Chloride 101 mmol/L (98-107); Glucose 97 mg/dL (65-115); Magnesium 2.2 mg/dL (1.7-2.3); Osmolality Calculated 297 mOsm/kg (285-295); Potassium 4.1 mmol/L (3.5-5.1); Sodium 143 mmol/L (136-145)
[2021-02-15] MEDS: warfarin 2 mg Tablet 4 MG PO (08:38)
[2021-02-15] MEDS: tolterodine 2 mg Tablet PO ×2 (08:38→21:33)
[2021-02-15] MEDS: isosorbide mononitrate ER 60 mg Tablet 30 MG PO (08:38)
[2021-02-15] MEDS: metoprolol tartrate 25 mg Tablet 12.5 MG PO (08:39)
[2021-02-15] MEDS: levothyroxine 50 mcg Tablet PO (08:39)
[2021-02-15] MEDS: atorvastatin 40 mg Tablet PO (08:39)
[2021-02-15] MEDS: potassium chloride ER 10 mEq Tablet 20 MEQ PO ×2 (08:39→21:28)
[2021-02-15] MEDS: pantoprazole DR 40 mg Tablet PO ×2 (08:40→21:28)
[2021-02-15] MEDS: ferrous gluconate 324 mg Tablet PO ×2 (08:40→21:28)
[2021-02-15] MEDS: polyethylene glycol 3350 Pkt 17 gm PO (08:40)
[2021-02-15] MEDS: fluoxetine 10 mg Capsule PO (08:40)
[2021-02-15] MEDS: bumetanide 1 mg Tablet PO (08:41)
--- NOTE | 2021-02-15 11:06 | PC.SOCIAL ---
Pg 2 IMM Explained to pt Pg 2 IMM. No questions voiced. Provided pt a copy. Signed, dated, & timed a copy & placed in chart.
--- NOTE | 2021-02-15 16:39 | P.PN_ITS ---
Subjective Subjective: Interval history: Blood culture today returned positive for alphahemolytic Streptococcus and coag negative staph 4 out of 4 cultures from February 12, 2021. Repeat cultures have been ordered. Patient is afebrile, hemodynamically stable. Does not report any specific complaints today. Medications: Reviewed: Yes Vitals/I&O/Wt Last Vital Signs Temp 98.7 F 02/15/21 15:10 Pulse 102 H 02/15/21 15:10 Resp 17 02/15/21 15:10 BP 95/57 02/15/21 15:10 Pulse Ox 90 02/15/21 15:10 02/15/21 02/15/21 02/15/21 06:59 14:59 22:59 Intake Total 200 / 765 240 / 240 Balance 200 / 565 240 / 240 Weight last 48 hrs Weight 62.369 kg Weight 62.369 kg Physical Exam Narrative: EXAM NARRATIVE: GEN: Awake, alert and oriented x 2 , no acute distress CVS: S1S2 N RS: CTA B/L Abd: Soft, nt/nd , bs+ MILITARY SCIENCE TEACHER: no focal neuro deficits extremities : no gross edema Data : 02/15/21 04:38 02/15/21 04:38 Micro: Microbiology 02/12/21 17:35 Blood Culture - Preliminary Blood Staphylococcus sp coag neg Strep species, alpha hemolytic 02/12/21 17:35 Blood Culture - Preliminary Blood Staphylococcus sp coag neg Strep species, alpha hemolytic A&P Assessment and plan (1) Gram-positive cocci bacteremia: Blood culture this morning returned positive for out of 4 with alphahemolytic strep and coag negative staph. While this may represent contamination, would be hesitant to rule it as such given the presence of a mechanical heart valve and potential for endocarditis. No gross source of bacteremia evident at this time. Chest x-ray without any new infiltrates, denies any abdominal symptoms. Has stage II pressure ulcer over her buttocks, no gross signs of cellulitis at this present time. Endocarditis needs to be investigated. Order transthoracic echocardiogram to evaluate for any vegetations. ESR CRP with a.m. labs. Discontinue levofloxacin Start ceftriaxone 1 g IV every 24 hours and vancomycin dosed per pharmacy to cover for streptococcal and coag negative staph. Repeat blood cultures today and again tomorrow morning and monitor for clearance. Status: Acute (2) PNA (pneumonia): Reviewed serial past chest x-rays, overall grossly does not appear to have had a significant change. Less likely appearing to be acute community-acquired pneumonia at this present time. Status: Acute (3) Chronic respiratory failure with hypoxia and hypercapnia: Compensated hypercapnic respiratory failure. Currently on BiPAP. Patient uses BiPAP at night and as needed BiPAP during daytime. She uses 2 to 3 L oxygen at home mostly during daytime Duo Nebs Status: Acute (4) CHF (congestive heart failure): Mildly Decompensated HFpEF Bumex mg po Q12 H Daily, currently euvolemic Continue tolterodine at home dosing I/O Charting Daily Weight K>4 , Mg>2 Status: Acute Qualifiers: Heart failure type: diastolic Heart failure chronicity: acute on chronic Qualified Code(s): I50.33 - Acute on chronic diastolic (congestive) heart failure (5) COPD (chronic obstructive pulmonary disease): Not currently exacerbated Continue DuoNeb every 6 hours scheduled. Status: Acute Qualifiers: COPD type: chronic bronchitis Chronic bronchitis type: unspecified Qualified Code(s): J42 - Unspecified chronic bronchitis (6) Anemia: Status: Acute Qualifiers: Anemia type: unspecified type Qualified Code(s): D64.9 - Anemia, unspecified (7) Afib: Status: Acute Qualifiers: Atrial fibrillation type: longstanding persistent Qualified Code(s): I48.11 - Longstanding persistent atrial fibrillation (8) Mitral valve replaced: Status: Acute (9) Chronic anticoagulation: On comudin. Monitor INR Status: Acute Additional A&P Information Code Status :AND DVT PPX: On warfarin , INR maintained Disposition :Home when ready for discharge Attestations Medical Necessity Statement*: GPC bacteremia, evaluate for source, possible endocarditis, Coding Level of Care Code Acute Routing Equipment Tender for [facility] Fwd Diagnoses Gram-positive cocci bacteremia R78.81 PNA (pneumonia) J18.9 Chronic respiratory failure with hypoxia and hypercapnia J96.11; J96.12 CHF (congestive heart failure) I50.33 Heart failure type: diastolic Heart failure chronicity: acute on chronic COPD (chronic obstructive pulmonary disease) J42 COPD type: chronic bronchitis Chronic bronchitis type: unspecified Anemia D64.9 Anemia type: unspecified type Afib I48.11 Atrial fibrillation type: longstanding persistent Mitral valve replaced Z95.2 Chronic anticoagulation Z79.01
[2021-02-15 17:33] LABS: SARS Covid-2 Antigen Negative (Negative)
[2021-02-15] MEDS: cefTRIAXone 1,000 MG in sodium chloride 0.9% (plus) 50 ML 100 MG IV (18:19)
[2021-02-15] MEDS: vancomycin 750 MG in sodium chloride 0.9% 250 ML 250 MG IV (19:10)
[2021-02-16] VITALS (16 sets, daily range): BP systolic 104–129; BP diastolic 50–68; PULSE 67–87; RESP 17–24; TEMP 36.4–36.9; O2SAT 92–100; BMI 26.8
[2021-02-16] MEDS: ipratropium-albuterol 3 mL Neb INHALATION ×4 (02:54→21:52)
--- NOTE | 2021-02-16 06:00 | USCV_ITS ---
Kristynshanelle Iris Age: 80 Gender: F : 1940 Exam Date: 02/16/2021 06:28 Ordering Phys: Hellen Gallo MD Technologist: Jessica Rojas Exam Location: [facility] [place]_ Indication: CP BP: 111 / 68 HR: 73 Rhythm: Sinus Technical Quality: Adequate MEASUREMENTS (Male / Female) Normal Values 2D ECHO LV Diastolic Diameter PLAX 5.2 cm 4.2 - 5.9 / 3.9 - 5.3 cm LV Systolic Diameter PLAX 3.6 cm LV Chamber Size 4.8 cm IVS Diastolic Thickness 1.7 cm 0.6 - 1.0 / 0.6 - 0.9 cm IVS Systolic Thickness 1.8 cm LVPW Diastolic Thickness 1.2 cm 0.6 - 1.0 / 0.6 - 0.9 cm LVPW Systolic Thickness 1.6 cm RV Chamber Size 3.6 cm LVOT Diameter 2.0 cm LV Ejection Fraction 2D Teich 57.7 % LV Ejection Fraction MOD 2C 46.2 % LV Ejection Fraction 2C AL 46.5 % LA Diameter 4.8 cm LA Width 4.0 cm LA Height 6.3 cm RA Width 4.8 cm RA Height 5.8 cm M-MODE LV Diastolic Diameter MM 7.0 cm 4.2 - 5.9 / 3.9 - 5.3 cm LV Systolic Diameter MM 5.1 cm LV Ejection Fraction MM Teich 50.3 % IVS Diastolic Thickness MM 0.6 cm 0.6 - 1.0 / 0.6 - 0.9 cm IVS Systolic Thickness MM 1.1 cm LVPW Diastolic Thickness MM 1.0 cm 0.6 - 1.0 / 0.6 - 0.9 cm LVPW Systolic Thickness MM 1.3 cm Aortic Annulus Diameter 3.4 cm LA Ao Ratio MM 1.3 MV E Point Septal Separation 1.1 cm DOPPLER AV Peak Velocity 189.0 cm/s LVOT Peak Velocity 126.0 cm/s AV Area Cont Eq vti 2.6 cm squared AV Area Cont Eq pk 2.1 cm squared MV E' Velocity 14.0 cm/s TR Peak Velocity 363.9 cm/s TR Peak Gradient 53.0 mmHg TR Mean Velocity 282.9 cm/s TR Mean Gradient 34.4 mmHg TR Velocity Time Integral 143.8 cm TV Peak E Velocity 171.0 cm/s Right Atrial Pressure 8.0 mmHg Pulmonary Artery Systolic Pressu 61.0 mmHg PV Peak Velocity 98.0 cm/s RV Acceleration Time 0.1 s RV Ejection Time 0.3 s RV AcT/ET 0.2 FINDINGS Left Ventricle Normal left ventricular cavity size. Normal left ventricular systolic function. Left ventricular ejection fraction is estimated at 50 %. Right Ventricle The right ventricle is normal in size and function. Severe pulmonary hypertension, RVSP 61 mmHg. Right Atrium The right atrium is normal in size. Left Atrium Severely increased left atrial size. Mitral Valve Mechanical mitral valve sitting in a normal position without any valvular or paravalvular leak Aortic Valve Moderate aortic valve calcification. No aortic valve stenosis. Trace aortic valve regurgitation. Tricuspid Valve Moderate tricuspid valve regurgitation. Pulmonic Valve Structurally normal pulmonic valve without significant stenosis. There is no pulmonic regurgitation. Pericardium Normal pericardium without effusion. Aorta Normal ascending aorta dimension. CONCLUSIONS 1-Normal left ventricular cavity size. Normal left ventricular systolic function. Left ventricular ejection fraction is estimated at 50 %. 2-Mechanical mitral valve sitting in a normal position without any valvular or paravalvular leak. 3-Severely increased left atrial size. 4-Moderate aortic valve calcification. No aortic valve stenosis. Trace aortic valve regurgitation. 5-The right ventricle is normal in size and function. Severe pulmonary hypertension, RVSP 61 mmHg. 6-Right atrial pressure is around 5 mm of mercury. 7-When compared to the prior echocardiogram dated 17 April 2020 there is slightly worsening of left ventricle ejection fraction from normal 68% to low normal 50% now. Surinder Mays MD (Electronically Signed) Final Date: 18 February 2021 20:45 S
[2021-02-16 06:50] LABS: Basophils % 0.6 %; Eosinophils # 0.1 10^3/uL (0.0-0.8); Eosinophils % 3.5 %; Hematocrit 29.8 % (37.0-47.0); Hemoglobin 8.7 g/dL (11.5-15.3); Lymphocytes # 0.7 10^3/uL (0.8-4.8); Lymphocytes % 23.8 %; Mean Corpuscular HGB Conc 29.2 g/dL (30.0-36.0); Mean Corpuscular Hemoglobin 29.1 pg (28.0-34.0); Mean Corpuscular Volume 99.7 fL (81-99); Mean Platelet Volume 9.9 fL (7.4-10.4); Monocytes # 0.4 10^3/uL (0.2-0.9); Monocytes % 13.2 %; Neutrophils # 1.83 10^3/uL (1.8-7.7); Neutrophils % 58.9 %; Nucleated Red Blood Cells % 0 %; Platelet Count 93 10^3/cmm (130-400); Red Blood Count 2.99 10^6/uL (4.1-5.3); Red Cell Distribution Width 17.5 % (12.1-15.1); White Blood Count 3.1 10^3/uL (4.0-10.0)
[2021-02-16 06:54] LABS: INR 2.37 (0.8-1.2)
[2021-02-16 07:04] LABS: Alanine Aminotransferase < 5 U/L (0-33); Albumin Level 3.4 g/dL (3.5-5.2); Alkaline Phosphatase 116 IU/L (35-105); Aspartate Amino Transferase 10 U/L (0-32); Blood Urea Nitrogen 13 mg/dL (8-23); Carbon Dioxide 37 mmol/L (22-29); Chloride 99 mmol/L (98-107); Globulin 2.2 g/dL (1.3-4.6); Glucose 92 mg/dL (65-115); Osmolality Calculated 288 mOsm/kg (285-295); Sodium 139 mmol/L (136-145); Total Bilirubin 0.5 mg/dL (0.15-1.2); Total Protein 5.6 g/dL (6.6-8.7)
[2021-02-16 07:13] LABS: C Reactive Protein 1.1 mg/L (0.0-4.9)
[2021-02-16 07:58] LABS: Erythrocyte Sedimentation Rate 31 mm/hr (0-15)
[2021-02-16] MEDS: tolterodine 2 mg Tablet PO ×2 (09:10→20:53)
[2021-02-16] MEDS: warfarin 2 mg Tablet 4 MG PO (09:10)
[2021-02-16] MEDS: potassium chloride ER 10 mEq Tablet 20 MEQ PO ×2 (09:11→20:48)
[2021-02-16] MEDS: atorvastatin 40 mg Tablet PO (09:11)
[2021-02-16] MEDS: isosorbide mononitrate ER 60 mg Tablet 30 MG PO (09:11)
[2021-02-16] MEDS: metoprolol tartrate 25 mg Tablet 12.5 MG PO ×2 (09:11→20:49)
[2021-02-16] MEDS: pantoprazole DR 40 mg Tablet PO ×2 (09:12→20:48)
[2021-02-16] MEDS: fluoxetine 10 mg Capsule PO (09:14)
[2021-02-16] MEDS: levothyroxine 50 mcg Tablet PO (09:14)
[2021-02-16] MEDS: ferrous gluconate 324 mg Tablet PO ×2 (09:14→20:50)
[2021-02-16] MEDS: polyethylene glycol 3350 Pkt 17 gm PO (09:15)
[2021-02-16] MEDS: bumetanide 1 mg Tablet PO ×2 (11:21→20:49)
[2021-02-16] MEDS: vancomycin 750 MG in sodium chloride 0.9% 250 ML 250 MG IV (11:21)
--- NOTE | 2021-02-16 17:18 | PM.PN ---
Subjective Subjective: Interval history: No acute interim events. Remains hemodynamically stable afebrile. 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: no focal neuro deficits extremities : no gross edema Data : 02/16/21 04:56 02/16/21 04:56 Micro: Microbiology 02/16/21 05:04 Blood Culture - Preliminary Blood SPECIMEN COLLECTED 02/16/21 04:56 Blood Culture - Preliminary Blood SPECIMEN COLLECTED 02/15/21 17:15 Blood Culture - Preliminary Blood SPECIMEN COLLECTED 02/15/21 17:10 Blood Culture - Preliminary Blood SPECIMEN COLLECTED A&P Assessment and plan (1) Gram-positive cocci bacteremia: Blood culture from admission positive for alphahemolytic strep culture negative staph Repeat blood cultures pending No gross source of bacteremia evident at this time. Chest x-ray without any new infiltrates, denies any abdominal symptoms. Has stage II pressure ulcer over her buttocks, no gross signs of cellulitis at this present time. Endocarditis needs to be investigated. TTE pending ESR MILDLY ELEVATED AT 31 CRP within range Continue ceftriaxone 1 g IV every 24 hours and vancomycin dosed per pharmacy to cover for streptococcal and coag negative staph. Repeat blood cultures pending to evaluate for clearance Status: Acute (2) PNA (pneumonia): Reviewed serial past chest x-rays, overall grossly does not appear to have had a significant change. Less likely appearing to be acute community-acquired pneumonia at this present time. Status: Acute (3) Chronic respiratory failure with hypoxia and hypercapnia: Compensated hypercapnic respiratory failure. Currently on BiPAP. Patient uses BiPAP at night and as needed BiPAP during daytime. She uses 2 to 3 L oxygen at homemostly during daytime Duo Nebs Status: Acute (4) CHF (congestive heart failure): Mildly Decompensated HFpEF Bumex mg po Q12 H Daily, currently euvolemic Continue tolterodine at home dosing I/O Charting Daily Weight K>4 , Mg>2 Status: Acute Qualifiers: Heart failure type: diastolic Heart failure chronicity: acute on chronic Qualified Code(s): I50.33 - Acute on chronic diastolic (congestive) heart failure (5) COPD (chronic obstructive pulmonary disease): Not currently exacerbated Continue DuoNeb every 6 hours scheduled. Status: Acute Qualifiers: COPD type: chronic bronchitis Chronic bronchitis type: unspecified Qualified Code(s): J42 - Unspecified chronic bronchitis (6) Anemia: Status: Acute Qualifiers: Anemia type: unspecified type Qualified Code(s): D64.9 - Anemia, unspecified (7) Afib: Status: Acute Qualifiers: Atrial fibrillation type: longstanding persistent Qualified Code(s): I48.11 - Longstanding persistent atrial fibrillation (8) Mitral valve replaced: Status: Acute (9) Chronic anticoagulation: On comudin. Monitor INR Status: Acute Additional A&P Information Code Status :AND DVT PPX: On warfarin , INR maintained Disposition :Home when ready for discharge Attestations Medical Necessity Statement*: iv antibiotics, Evaluation GPC bacteremia, possible endocarditis Coding Level of Care Code Acute Dental Laboratory Technology Teacher for [facility] Fwd Diagnoses Gram-positive cocci bacteremia R78.81 PNA (pneumonia) J18.9 Chronic respiratory failure with hypoxia and hypercapnia J96.11; J96.12 CHF (congestive heart failure) I50.33 Heart failure type: diastolic Heart failure chronicity: acute on chronic COPD (chronic obstructive pulmonary disease) J42 COPD type: chronic bronchitis Chronic bronchitis type: unspecified Anemia D64.9 Anemia type: unspecified type Afib I48.11 Atrial fibrillation type: longstanding persistent Mitral valve replaced Z95.2 Chronic anticoagulation Z79.01
[2021-02-16] MEDS: cefTRIAXone 1,000 MG in sodium chloride 0.9% (plus) 50 ML 100 MG IV (18:00)
[2021-02-17] VITALS (16 sets, daily range): BP systolic 104–129; BP diastolic 54–67; PULSE 55–88; RESP 15–24; TEMP 36.5–36.8; O2SAT 94–100; BMI 26.8
[2021-02-17] MEDS: ipratropium-albuterol 3 mL Neb INHALATION ×2 (02:53→20:07)
[2021-02-17 06:23] LABS: INR 2.31 (0.8-1.2)
[2021-02-17 06:42] LABS: Vancomycin Trough 8.7 ug/mL (10-15)
[2021-02-17] MEDS: vancomycin 750 MG in sodium chloride 0.9% 250 ML 250 MG IV ×2 (06:44→23:56)
[2021-02-17] MEDS: fluoxetine 10 mg Capsule PO (09:14)
[2021-02-17] MEDS: atorvastatin 40 mg Tablet PO (09:14)
[2021-02-17] MEDS: metoprolol tartrate 25 mg Tablet 12.5 MG PO ×2 (09:14→21:42)
[2021-02-17] MEDS: levothyroxine 50 mcg Tablet PO (09:14)
[2021-02-17] MEDS: pantoprazole DR 40 mg Tablet PO ×2 (09:14→21:44)
[2021-02-17] MEDS: potassium chloride ER 10 mEq Tablet 20 MEQ PO ×2 (09:14→21:45)
[2021-02-17] MEDS: warfarin 2 mg Tablet 4 MG PO (09:15)
[2021-02-17] MEDS: bumetanide 1 mg Tablet PO ×2 (09:17→21:45)
[2021-02-17] MEDS: isosorbide mononitrate ER 60 mg Tablet 30 MG PO ×2 (09:17→21:44)
[2021-02-17] MEDS: ferrous gluconate 324 mg Tablet PO ×2 (09:17→21:49)
[2021-02-17] MEDS: polyethylene glycol 3350 Pkt 17 gm PO (09:18)
[2021-02-17] MEDS: ondansetron 2 mg/ML SDV 2 mL 4 MG IVP (09:18)
[2021-02-17] MEDS: tolterodine 2 mg Tablet PO ×2 (09:34→21:45)
--- NOTE | 2021-02-17 17:21 | PC.RESP ---
Pulmonary Rehab information sent to patient.
[2021-02-17] MEDS: cefTRIAXone 1,000 MG in sodium chloride 0.9% (plus) 50 ML 100 MG IV (18:21)
--- NOTE | 2021-02-17 19:32 | PM.PN ---
Subjective Subjective: Interval history: No acute interim events. 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 extremities : no gross edema Data : 02/16/21 04:56 02/16/21 04:56 Micro: Microbiology 02/12/21 17:35 Blood Culture - Final Blood Staphylococcus auricularis Streptococcus viridans 02/12/21 17:35 Blood Culture - Final Blood Staphylococcus Auricularis Streptococcus viridans 02/16/21 05:04 Blood Culture - Preliminary Blood NEGATIVE TO DATE 02/16/21 04:56 Blood Culture - Preliminary Blood NEGATIVE TO DATE 02/15/21 17:15 Blood Culture - Preliminary Blood NEGATIVE TO DATE 02/15/21 17:10 Blood Culture - Preliminary Blood NEGATIVE TO DATE A&P Assessment and plan (1) Gram-positive cocci bacteremia: Blood culture from admission positive for strep viridans and CoNs Repeat blood cultures pending No gross source of bacteremia evident at this time. Chest x-ray without any new infiltrates per my read, however note made of prominent pulmonary artery vs hilar mass which will need outpatient follow up. denies any abdominal symptoms. Has stage II pressure ulcer over her buttocks, no gross signs of cellulitis at this present time. Endocarditis needs to be investigated. TTE pending ESR MILDLY ELEVATED AT 31 CRP within range Continue ceftriaxone 1 g IV every 24 hours and vancomycin dosed per pharmacy to cover for streptococcal and coag negative staph. PICC line in am, plan for discharge with 2 weeks of abx if echo without signs of endocarditis Status: Acute (2) PNA (pneumonia): Reviewed serial past chest x-rays, overall grossly does not appear to have had a significant change. Less likely appearing to be acute community-acquired pneumonia at this present time. Status: Acute (3) Chronic respiratory failure with hypoxia and hypercapnia: Compensated hypercapnic respiratory failure. Currently on BiPAP. Patient uses BiPAP at night and as needed BiPAP during daytime. She uses 2 to 3 L oxygen at homemostly during daytime Duo Nebs Status: Acute (4) CHF (congestive heart failure): Mildly Decompensated HFpEF Bumex mg po Q12 H Daily, currently euvolemic, check renal function in am Continue tolterodine at home dosing I/O Charting Daily Weight K>4 , Mg>2 Status: Acute Qualifiers: Heart failure type: diastolic Heart failure chronicity: acute on chronic Qualified Code(s): I50.33 - Acute on chronic diastolic (congestive) heart failure (5) COPD (chronic obstructive pulmonary disease): Not currently exacerbated Continue DuoNeb every 6 hours scheduled. Status: Acute Qualifiers: COPD type: chronic bronchitis Chronic bronchitis type: unspecified Qualified Code(s): J42 - Unspecified chronic bronchitis (6) Anemia: Status: Acute Qualifiers: Anemia type: unspecified type Qualified Code(s): D64.9 - Anemia, unspecified (7) Afib: Status: Acute Qualifiers: Atrial fibrillation type: longstanding persistent Qualified Code(s): I48.11 - Longstanding persistent atrial fibrillation (8) Mitral valve replaced: Status: Acute (9) Chronic anticoagulation: On comudin. 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
[2021-02-18] VITALS (19 sets, daily range): BP systolic 105–130; BP diastolic 56–66; PULSE 63–80; RESP 17–29; TEMP 36.8–37.3; O2SAT 95–100
[2021-02-18] MEDS: ipratropium-albuterol 3 mL Neb INHALATION ×4 (03:09→20:43)
[2021-02-18 05:08] LABS: Basophils % 0.7 %; Eosinophils # 0.1 10^3/uL (0.0-0.8); Hematocrit 29.8 % (37.0-47.0); Hemoglobin 8.7 g/dL (11.5-15.3); Lymphocytes # 0.8 10^3/uL (0.8-4.8); Lymphocytes % 17.4 %; Mean Corpuscular HGB Conc 29.2 g/dL (30.0-36.0); Mean Corpuscular Hemoglobin 28.9 pg (28.0-34.0); Mean Platelet Volume 9.9 fL (7.4-10.4); Monocytes # 0.3 10^3/uL (0.2-0.9); Monocytes % 7.6 %; Neutrophils # 3.23 10^3/uL (1.8-7.7); Neutrophils % 72.1 %; Nucleated Red Blood Cells % 0 %; Platelet Count 99 10^3/cmm (130-400); Red Blood Count 3.01 10^6/uL (4.1-5.3); Red Cell Distribution Width 17.1 % (12.1-15.1); White Blood Count 4.5 10^3/uL (4.0-10.0)
[2021-02-18 05:29] LABS: Alanine Aminotransferase < 5 U/L (0-33); Albumin Level 3.3 g/dL (3.5-5.2); Alkaline Phosphatase 118 IU/L (35-105); Aspartate Amino Transferase 11 U/L (0-32); Blood Urea Nitrogen 10 mg/dL (8-23); Calcium 7.8 mg/dL (8.5-10.5); Carbon Dioxide 39 mmol/L (22-29); Chloride 100 mmol/L (98-107); Globulin 2.1 g/dL (1.3-4.6); Glucose 101 mg/dL (65-115); Osmolality Calculated 289 mOsm/kg (285-295); Sodium 140 mmol/L (136-145); Total Bilirubin 0.6 mg/dL (0.15-1.2); Total Protein 5.4 g/dL (6.6-8.7)
[2021-02-18] MEDS: bumetanide 1 mg Tablet PO ×2 (09:19→21:37)
[2021-02-18] MEDS: warfarin 2 mg Tablet 4 MG PO (09:19)
[2021-02-18] MEDS: pantoprazole DR 40 mg Tablet PO ×2 (09:19→20:25)
[2021-02-18] MEDS: fluoxetine 10 mg Capsule PO (09:20)
[2021-02-18] MEDS: metoprolol tartrate 25 mg Tablet 12.5 MG PO ×2 (09:20→20:25)
[2021-02-18] MEDS: levothyroxine 50 mcg Tablet PO (09:20)
[2021-02-18] MEDS: atorvastatin 40 mg Tablet PO (09:20)
[2021-02-18] MEDS: isosorbide mononitrate ER 60 mg Tablet 30 MG PO ×2 (09:20→20:25)
[2021-02-18] MEDS: potassium chloride ER 10 mEq Tablet 20 MEQ PO ×2 (09:20→20:25)
[2021-02-18] MEDS: ferrous gluconate 324 mg Tablet PO ×2 (09:20→20:25)
[2021-02-18] MEDS: tolterodine 2 mg Tablet PO ×2 (09:23→20:24)
--- NOTE | 2021-02-18 17:05 | PM.PN ---
Subjective Subjective: Interval history: No acute overnight events. Remains hemodynamically stable, afebrile count and WBC improving. Blood culture from February 15 remains negative to date. Echocardiogram remains pending. 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 Chest x-ray without any new infiltrates per my read, however note made of prominent pulmonary artery vs hilar mass which will need outpatient follow up. denies any abdominal symptoms. Has stage II pressure ulcer over her buttocks, no gross signs of cellulitis at this present time. Endocarditis needs to be investigated. TTE pending ESR MILDLY ELEVATED AT 31 CRP within range Continue ceftriaxone 1 g IV every 24 hours and vancomycin dosed per pharmacy to cover for streptococcal and coag negative staph. PICC line in am, plan for discharge with 2 weeks of abx if echo without signs of endocarditis. Discharge antibiotic likely to be vancomycin with therapeutic trough monitoring. Status: Acute (2) PNA (pneumonia): Reviewed serial past chest x-rays, overall grossly does not appear to have had a significant change. Less likely appearing to be acute community-acquired pneumonia at this present time. Status: Acute (3) Chronic respiratory failure with hypoxia and hypercapnia: Compensated hypercapnic respiratory failure. Currently on BiPAP. Patient uses BiPAP at night and as needed BiPAP during daytime. She uses 2 to 3 L oxygen at homemostly during daytime Duo Nebs Status: Acute (4) CHF (congestive heart failure): Mildly Decompensated HFpEF Bumex mg po Q12 H Daily, currently euvolemic Continue tolterodine at home dosing I/O Charting Daily Weight K>4 , Mg>2 Status: Acute Qualifiers: Heart failure type: diastolic Heart failure chronicity: acute on chronic Qualified Code(s): I50.33 - Acute on chronic diastolic (congestive) heart failure (5) COPD (chronic obstructive pulmonary disease): Not currently exacerbated Continue DuoNeb every 6 hours scheduled. Status: Acute Qualifiers: COPD type: chronic bronchitis Chronic bronchitis type: unspecified Qualified Code(s): J42 - Unspecified chronic bronchitis (6) Anemia: Status: Acute Qualifiers: Anemia type: unspecified type Qualified Code(s): D64.9 - Anemia, unspecified (7) Afib: Status: Acute Qualifiers: Atrial fibrillation type: longstanding persistent Qualified Code(s): I48.11 - Longstanding persistent atrial fibrillation (8) Mitral valve replaced: Status: Acute (9) Chronic anticoagulation: On comudin. 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
[2021-02-18] MEDS: vancomycin 750 MG in sodium chloride 0.9% 250 ML 250 MG IV (17:57)
[2021-02-18] MEDS: cefTRIAXone 1,000 MG in sodium chloride 0.9% (plus) 50 ML 100 MG IV (17:57)
[2021-02-19] VITALS (16 sets, daily range): BP systolic 106–144; BP diastolic 47–72; PULSE 59–79; RESP 17–22; TEMP 36.4–36.8; O2SAT 95–100
[2021-02-19] MEDS: ipratropium-albuterol 3 mL Neb INHALATION ×3 (02:02→14:18)
[2021-02-19] MEDS: metoprolol tartrate 25 mg Tablet 12.5 MG PO (08:12)
[2021-02-19] MEDS: fluoxetine 10 mg Capsule PO (08:12)
[2021-02-19] MEDS: pantoprazole DR 40 mg Tablet PO (08:12)
[2021-02-19] MEDS: warfarin 2 mg Tablet 4 MG PO (08:12)
[2021-02-19] MEDS: bumetanide 1 mg Tablet PO (08:12)
[2021-02-19] MEDS: atorvastatin 40 mg Tablet PO (08:12)
[2021-02-19] MEDS: tolterodine 2 mg Tablet PO (08:13)
[2021-02-19] MEDS: isosorbide mononitrate ER 60 mg Tablet 30 MG PO (08:13)
[2021-02-19] MEDS: levothyroxine 50 mcg Tablet PO (08:13)
[2021-02-19] MEDS: potassium chloride ER 10 mEq Tablet 20 MEQ PO (08:16)
[2021-02-19] MEDS: ferrous gluconate 324 mg Tablet PO (08:16)
--- NOTE | 2021-02-19 08:26 | XR_ITS ---
WS: [id number] Portable AP upright chest, 02/19/2021 Clinical Data: picc placement Comparison: Portable chest, 02/15/2021. Findings: A right PICC line ends in the superior vena cava with a distal curl. However the position i s satisfactory. XR/XR chest 1V portable [id number] Impression: Insertion of right PICC line.
--- NOTE | 2021-02-19 10:15 | PC.SOCIAL ---
IMM Updated Updated pt & her spouse on Pg 2 IMM. No questions voiced. Provided pt a copy. Initialed, dated, & timed copy in chart.
[2021-02-19] MEDS: vancomycin 750 MG in sodium chloride 0.9% 250 ML 250 MG IV (10:29)
[2021-02-19 11:14] LABS: INR 2.64 (0.8-1.2)
--- NOTE | 2021-02-19 17:15 | P.DS_ITS ---
Discharge Providers Date of Admission: 02/12/21 18:02 Date of Discharge: February 19, 2021 Attending Provider at Admission: Serg Perales MD Attending Provider at Discharge: Hellen Gallo MD Primary Care Provider: Michael Hampton DO Diagnoses at Discharge Discharge Diagnosis (1) Gram-positive cocci bacteremia: Status: Acute (2) PNA (pneumonia): Status: Acute (3) Chronic respiratory failure with hypoxia and hypercapnia: Status: Acute (4) CHF (congestive heart failure): Status: Acute Qualifiers: Heart failure type: diastolic Heart failure chronicity: acute on chronic Qualified Code(s): I50.33 - Acute on chronic diastolic (congestive) heart failure (5) COPD (chronic obstructive pulmonary disease): Status: Acute Qualifiers: COPD type: chronic bronchitis Chronic bronchitis type: unspecified Qualified Code(s): J42 - Unspecified chronic bronchitis (6) Anemia: Status: Acute Qualifiers: Anemia type: unspecified type Qualified Code(s): D64.9 - Anemia, unspecified (7) Afib: Status: Acute Qualifiers: Atrial fibrillation type: longstanding persistent Qualified Code(s): I48.11 - Longstanding persistent atrial fibrillation (8) Mitral valve replaced: Status: Acute Permanent problem details: Mechanical, on coumadin (9) Chronic anticoagulation: Status: Acute Reason for Visit Reason for Visit: LETHARGIC Hospital Course Hospital Course Iris Garcia is a 80 year old female with multiple comorbidities who presented to the hospital on February 12, 2021 with chief complaint of increasing shortness of breath at home, fever, generalized weakness, increasing lower e xtremity swelling. Hospital course as below. (1) Gram-positive cocci bacteremia: Blood culture from admission positive for strep viridans and CoNs Repeat blood cultures negative as of February 15, 2021 No gross source of bacteremia evident at this time. Chest x-ray without any new infiltrates per my read, however note made of prominent pulmonary artery vs hilar mass which will need outpatient follow up with primary care provider. denies any abdominal symptoms. Has stage II pressure ulcer over her buttocks, no gross signs of cellulitis at this present time. Endocarditis needs to be investigated. TTE with LVEF of 50%, mechanical mitral valve in normal position without any valvular or paravalvular leak, moderate aortic valve calcification, slight worsening of LVEF from 68 to 50% compared to prior echo from March 2020. No gross vegetations noted. ESR MILDLY ELEVATED AT 31 CRP within range Given the above findings, overall very low suspicion for infective endocarditis. plan for discharge with 2 weeks of iv vancomycin to cover streptococcus and CoNS (02/15-03/01) (2) PNA (pneumonia): Reviewed serial past chest x-rays, overall grossly does not appear to have had a significant change. Less likely appearing to be acute community-acquired pneumonia at this present time.Pt. did receive rx with levaquin and then Ceftriaxone and vancomycin with discovery of bacteremia, therefore adequately covered for this possibility (3) Chronic respiratory failure with hypoxia and hypercapnia: Compensated hypercapnic respiratory failure. Patient uses BiPAP at night and as needed BiPAP during daytime. She uses 2 to 3 L oxygen at homemostly during daytime Duo Nebs (4) CHF (congestive heart failure): Mildly Decompensated HFpEF Bumex 1 mg po Q12 H Daily, currently euvolemic Continue tolterodine at home dosing Heart failure type: diastolic Heart failure chronicity: acute on chronic Qualified Code(s): I50.33 - Acute on chronic diastolic (congestive) hea rt failure (5) COPD (chronic obstructive pulmonary disease): Not currently exacerbated Continue DuoNeb every 6 hours scheduled. (6) Anemia: (7) Afib: Atrial fibrillation type: longstanding persistent (8) Mitral valve replaced: (9) Chronic anticoagulation: On comudin. Continued at home dose of 4mg po daily, INR maintained between 2-3 Code Status :AND DVT PPX: On warfarin , INR maintained Disposition : Home with Physical Exam Narrative: EXAM NARRATIVE: GEN: Awake, alert and oriented, no acute distress CVS: S1S2 N RS: CTA B/L Abd: Soft, nt/nd , bs+ TECHNICAL INFORMATION SPECIALIST: no focal neuro deficits Discharge Data Data Completed and Pending: Completed Studies During Hospitalization Category Date Time Status XR chest 1V mary ble [id number] Routine Exams 02/15/21 06:00 Completed XR chest 1V mary ble [id number] Routine Exams 02/19/21 08:26 Completed XR chest 1V mary ble [id number] Stat Exams 02/12/21 16:55 Completed CV echo complete* [id number] Routine Ultrasound 02/16/21 06:00 Completed Pending at discharge Category Date Time Status Blood Culture AM LABS Lab 02/16/21 05:04 Results Blood Culture Sta t Lab 02/15/21 17:15 Results Labs from last 24 hours 02/19/21 10:56 PT 28.70 H INR 2.64 H Vitals: Last Vital Signs Temp 98.2 F 02/19/21 16:03 Pulse 77 02/19/21 16:03 Resp 20 H 02/19/21 16:03 BP 108/62 02/19/21 16:03 Pulse Ox 100 02/19/21 16:03 Discharge Plan Discharge Patient Disposition: Home Condition: Stable Prescriptions: Continued polyethylene glycol 3350 [Miralax] 17 gram/dose powder 17 gm PO DAILY PRN (Reason: Constipation) RF: 0 fluoxetine 10 mg capsule 10 mg PO DAILY@ RF: 0 carbidopa-levodopa 10-100 mg tablet,disintegrating 1 tab PO TID@ RF: 0 levothyroxine 50 mcg capsule 50 mcg PO DAILY@ RF: 0 tolterodine 2 mg tablet 2 mg PO BID@ RF: 0 warfarin 2 mg tablet 4 mg PO DAILY@899 RF: 0 tramadol 50 mg Tablet See Rx Instructions .ROUTE .COMPLEX PRN (Reason: Pain) RF: 0 isosorbide mononitrate 60 mg tablet extended release 24 hr 30 mg PO BID@899,2099 RF: 0 Vitamin D-3 with Aloe 1 tab PO DAILY RF: 0 Miralax 17 gram Powder In Packet 17 g PO DAILY@899 RF: 0 nitroglycerin 0.4 mg Tablet, Sublingual 0.4 mg SUBLINGUAL Q5M PRN (Reason: Chest Pain) RF: 0 rosuvastatin 10 mg tablet 10 mg PO DAILY@899 RF: 0 Advair Diskus 250-50 mcg/dose blister with device 1 inh inhalation BID@899,2099 RF: 0 bumetanide 1 mg tablet 1 mg PO BID@899,2099 PRN (Reason: edema) RF: 0 metoprolol tartrate 25 mg tablet 12.5 mg PO BID@899,2099 RF: 0 ProAir RespiClick 90 mcg/actuation aerosol powdr breath activated 1 inh inhalation Q6H PRN (Reason: shortness of breath) RF: 0 potassium chloride [Klor-Con 10] 10 mEq tablet extended release 20 meq PO BID@ RF: 0 ferrous gluconate 324 mg (37.5 mg iron) tablet 324 mg PO BID@ RF: 0 sennosides-docusate sodium 8.6-50 mg tablet 2 tab PO BID PRN (Reason: Constipation) RF: 0 pantoprazole 40 mg tablet,delayed release (DR/EC) 40 mg PO BID@0900,2100 RF: 0 Discharge Orders: Discharge Order (Routine); Ordered 02/19/21 Ordered By: Hellen Gallo Other Ambulatory Orders: Vancomycin Trough (Routine) Timeframe: 3 Days Location: Determined by Patient Ordered By: Hellen Gallo Referrals: Michael Hampton DO [Primary Care Provider] - 1 week (Please call Dr. Hampton's office on Monday and schedule a follow up.) Discharge Diet: Usual diet Discharge Activity: Resume usual activity Patient Instructions: Peripherally Inserted Central Catheters and Midline Catheters (DC), Opioid Safety Activity Restrictions/Additional Instructions: check vancomycin level and creatinine on Thursday 02/22 Discharge Attestations Time Spent in Discharge Care*: greater than 30 min Status at Discharge: Cognitive status at discharge: cognitively intact , Behavioral status at discharge: cooperative , Quality Metrics Clinical Quality Measures During this hospital stay, did patient experience: None Coding Level of Care Code Acute Chg FW DC note Diagnoses Gram-positive cocci bacteremia R78.81 PNA (pneumonia) J18.9 Chronic respiratory failure with hypoxia and hypercapnia J96.11; J96.12 CHF (congestive heart failure) I50.33 Heart failure type: diastolic Heart failure chronicity: acute on chronic COPD (chronic obstructive pulmonary disease) J42 COPD type: chronic bronchitis Chronic bronchitis type: unspecified Anemia D64.9 Anemia type: unspecified type Afib I48.11 Atrial fibrillation type: longstanding persistent Mitral valve replaced Z95.2 Chronic anticoagulation Z79.01
== END 2021-02-19 15:50 | disposition home health service (06) | DRG 193 ==
LOC: ER 16:13 → MEDSURG 18:36
PROVIDERS: Admitting Provider Internal Medicine; Emergency Provider Family Medicine; PCP Family Medicine; Visit Provider Student in an Organized Health Care Education/Training Program
DX: J18.9 Pneumonia, unspecified organism (principal); I50.33 Acute on chronic diastolic (congestive) heart failure; R78.81 Bacteremia; J96.12 Chronic respiratory failure with hypercapnia; J96.11 Chronic respiratory failure with hypoxia; I48.11 Longstanding persistent atrial fibrillation; J44.0 Chronic obstructive pulmonary disease with (acute) lower respiratory infection; I25.10 Atherosclerotic heart disease of native coronary artery without angina pectoris; I11.0 Hypertensive heart disease with heart failure; B95.4 Other streptococcus as the cause of diseases classified elsewhere; B95.7 Other staphylococcus as the cause of diseases classified elsewhere; D50.9 Iron deficiency anemia, unspecified; G20 Parkinson's disease; E03.9 Hypothyroidism, unspecified; K21.9 Gastro-esophageal reflux disease without esophagitis; G47.33 Obstructive sleep apnea (adult) (pediatric); F32.9 Major depressive disorder, single episode, unspecified; L89.322 Pressure ulcer of left buttock, stage 2; L89.312 Pressure ulcer of right buttock, stage 2; Z79.01 Long term (current) use of anticoagulants; Z95.2 Presence of prosthetic heart valve; Z87.891 Personal history of nicotine dependence; Z99.81 Dependence on supplemental oxygen
CPT/HCPCS: 36415; 36569; 36600; 71045; 80048; 80051; 80053; 80202; 81001; 82330; 82550; 82805; 83735; 83880; 84145; 84484; 85025; 85610; 85651; 86140; 87040; 87077; 87186; 87205; 87426; 92610; 93005; 93306; 94640; 94660; 96365; 96375; 99291; J0696; J1956; J2405; J2930; J3370; J3480; J3490; J7050

== ENCOUNTER 2021-02-22 13:17 | Outpatient (CLI) | payer MEDICARE, MEDICAID, SELFPAY ==
[2021-02-22 14:24] LABS: Vancomycin Trough 13.4 ug/mL (10-15)
== END 2021-02-22 13:18 | disposition home or self-care (01) ==
PROVIDERS: PCP Family Medicine; Visit Provider Student in an Organized Health Care Education/Training Program
DX: A41.9 Sepsis, unspecified organism (principal)
CPT/HCPCS: 80202; 82565

== ENCOUNTER 2021-02-25 10:16 | Outpatient (CLI) | payer MEDICARE, MEDICAID, SELFPAY ==
[2021-02-25 11:41] LABS: Vancomycin Trough 13.7 ug/mL (10-15)
== END 2021-02-25 10:17 | disposition home or self-care (01) ==
LOC: LAB 10:20
PROVIDERS: PCP Family Medicine; Visit Provider Student in an Organized Health Care Education/Training Program
DX: J18.9 Pneumonia, unspecified organism (principal); R78.81 Bacteremia
CPT/HCPCS: 80202

== ENCOUNTER 2021-02-25 22:32 | Inpatient (IN) | payer MEDICARE, MEDICAID, SELFPAY ==
[2021-02-25 22:36] VITALS: BP 117/46; PULSE 90; RESP 24; TEMP 36.7; O2SAT 98; BMI 25.7
--- NOTE | 2021-02-25 22:44 | ED_ITS ---
HPI - General Adult General: Chief complaint: General Medical Stated complaint: bleeding from hep loc Time Seen by Provider: 02/25/21 22:43 Source: patient and EMS Mode of arrival: EMS Limitations: no limitations History of Present Illness: HPI narrative: Pleasant 80-year-old female patient presents to the emergency department with PICC line issue. She had had PICC line placed during last admission, 02/19/2021 due to bacteremia, gram-positive cocci, she was also admitted with pneumonia. She is brought in by EMS tonight due to PICC line bleeding at the site. EMS states placed pressure dressing to the site and bleeding had stopped. She was advised to come to the hospital for evaluation per home health as bleeding was noted. There is also a question of PICC line remains in place. She remains on Coumadin due to atrial fibrillation. She has trilogy at home, wears it from time to time but not consistently. She continues to receive vancomycin as IV antibiotics for gram-positive cocci found in blood cultures. Location: upper extremity (right upper) Associated symptoms: Reports malaise (chronic); Deny chest pain, diaphoresis, dyspnea, headache(s), nausea, rash, palpitations or vomiting Treatments prior to arrival: other (presure dressing) Review of Systems General: Reports: 10 or more systems reviewed and unremarkable except in HPI and below Const: Reports: fatigue (chronic) and malaise (chronic); Denies: fever(s), chills or diaphoresis Eyes: Denies: blurry vision or eye redness ENMT: Denies: throat pain, dental pain or disequilibrium Card: Denies: chest pain, palpitations or irregular heart rhythm Resp: Denies: dyspnea, productive cough, non-productive cough or wheezing GI: Denies: abdominal pain, nausea or vomiting : Denies: difficulty voiding or dysuria Musc: Denies: neck pain, back pain, extremity swelling or joint pain Skin/Breast: Reports: other (bleeding from PICC site); Denies: rash, pruritus, skin tenderness or changes in skin color Neuro: Denies: headache(s), weakness in extremities or behavioral changes Psych: Denies: anxiety or depression Jesus Alberto/Lymph: Denies: easy bruising PFS ED PFSH: Medical History (Updated 02/26/21 @ 03:00 by Surinder Olivares MD) Acute exacerbation of COPD with asthma Afib Anemia -baseline Hg around 9-10 -follow with Dr Bullock CAD (coronary artery disease) Chronic anticoagulation Due to mechanical mitral valve; coumadin Chronic hypercapnic respiratory failure COPD (chronic obstructive pulmonary disease) Depression Diastolic CHF GERD (gastroesophageal reflux disease) PPI HTN (hypertension) Hypothyroidism -continue levothyroxine Iron deficiency anemia Has required transfusion in past, last egd and colonoscopy ~2017 with diverticulosis and internal hemorrhoids, SONYA (obstructive sleep apnea) Parkinson disease Follows up with Dr. Rainey in [place] Schatzki's ring Weakness Surgical History History of bilateral tubal ligation History of cholecystectomy History of total knee arthroplasty Left Mitral valve replaced Mechanical, on coumadin Family History Mother CAD (coronary artery disease) Diabetes Other Hypertension Social History Smoking and tobacco status: former smoker Quit status (tobacco): has quit using tobacco Year quit tobacco: 1994 - PPD x 15 Years Second hand smoke exposure: No Alcohol intake: never Caregiver/support person: Yes Household members: spouse and children Housing: House Marital status: Current occupational status: retired and disabled History of recent travel: No Current gender identity: Female Physical Exam Const: COMMON NORMALS: no acute distress and alert GENERAL APPEARANCE: cooperative, comfortable, frail appearing and well hydrated; not anxious and not ill appearing ORIENTATION/CONSCIOUSNESS: Yes awake, Yes oriented to person, Yes oriented to place and Yes confused (time) HENMT: COMMON NORMALS: normocephalic, Normal external nose present and moist oral mucous membranes HEAD & SCALP: normal to inspection and normocephalic FACE & SINUS: normal facial exam and face symmetric NOSE: Normal external nose present Eye: COMMON NORMALS: Equal, round and reactive pupils present and EOMs intact bilaterally GENERAL EYE: appearance normal, both eyes and all related structures PUPIL: Yes Equal, round and reactive pupils present Neck/C-Spine: COMMON NORMALS: full ROM and no lymphadenopathy GENERAL: Yes normal visual inspection and Yes trachea midline CERVICAL SPINE: Yes cervical ROM normal Lymph: LYMPHATIC: no lymphadenopathy noted Chest: COMMONS NORMALS: normal inspection of the chest and normal palpation of entire chest wall Resp: COMMON NORMALS: normal respiratory effort, No retractions and No use of accessory muscles EFFORT & INSPECTION: Yes able to speak in complete sentences, No labored and Yes audible wheezes AUSCULTATION: diminished lung sounds bilateral in the lower lung mckeon Cardio: COMMON NORMALS: S1 normal heart sound present, S2 normal heart sound present and Peripheral pulses 2+ throughout RHYTHM: abnormal rhythm regularly irregular HEART SOUNDS: S1 normal heart sound present and S2 normal heart sound present PERIPHERAL PULSES: Peripheral pulses 2+ throughout GI: COMMON NORMALS: Soft to palpation and non-tender INSPECTION: Yes normal to inspection PALPATION: Yes Soft to palpation : COMMON NORMALS: Yes no CVA tenderness BLADDER/KIDNEY EXAM: Yes no CVA tenderness Back/Pelvis: COMMON NORMALS: no CVA tenderness and thoracic and lumbar spine normal to inspection Extremity: COMMON NORMALS: normal to inspection, capillary refill normal and no pedal edema Neuro: COMMON NORMALS: no focal motor deficits SENSORIUM/ORIENTATION: Yes alert, Yes oriented to person and Yes oriented to place Psych: COMMON NORMALS: mental status grossly normal, Normal thought process present, cooperative, normal affect and speech normal ACTIVITY/MOTOR BEHAVIOR: Yes appropriate eye contact SPEECH: Yes normal speech THOUGHT PROCESS: Normal thought process present Skin: COMMON NORMALS: no rashes or lesions noted, turgor normal, no petechiae and no mottling GENERAL SKIN EXAM: no rashes or lesions noted, elasticity normal and turgor normal OTHER: rt upper PICC with drainage, sanguinous, small amount to the dressing, does not pass the dressing site Course Consultations: Consultation #1: Dr Olivares, hospitalist, discussed elevated CO2 findings, patient did have confusion, not wearing trilogy at home, patient now on BiPAP, advised admit to [facility], no telemetry needed. Time: 02:17 Vital Signs: Vital signs: Vital Signs Temperature 98.0 F 02/25/21 22:36 Pulse Rate 68 02/26/21 02:36 Respiratory Rate 8 L 02/26/21 02:36 Blood Pressure 140/64 02/26/21 02:36 Pulse Oximetry 96 02/26/21 02:36 MDM - General Adult MDM Narrative: Medical decision making narrative: 80-year-old female patient presents to the emergency department via EMS due to bleeding from her PICC site. There is also a question of PICC line was in proper placement. Chest x-ray revealed proper placement, bleeding from the site controlled with pressure dressing applied by EMS crew. She had no further bleeding. Platelets were 117,000, INR therapeutic 2.45, lactic acid 1.2, chest x-ray without acute process. CO2 was noted to be elevated, 44; she was started on BiPAP, ABGs with continued Elevation of CO2, CT of the head without acute findings, CT completed due to confusion. Spoke with Dr. Olivares, agrees to admit to the medical surgical floor, patient was placed on BiPAP. Vancomycin dose continued here in the ED. Lab Data: Labs: Lab Results 02/25/21 02/25/21 02/25/21 Range/Units 23:10 23:10 23:10 WBC 4.8 (4.0-10.0) 10^3/ uL RBC 3.31 L (4.1-5.3) 10^6/u L Hgb 9.5 L (11.5-15.3) g/dL Hct 33.0 L (37.0-47.0) % MCV 99.7 H (81-99) fL MCH 28.7 (28.0-34.0) pg MCHC 28.8 L (30.0-36.0) g/dL RDW 15.8 H (12.1-15.1) % Plt Count 117 L (130-400) 10^3/c mm MPV 9.2 (7.4-10.4) fL Neut % (Auto) 68.8 % Lymph % (Auto) 19.0 % Howell % (Auto) 8.1 % Eos % (Auto) 3.3 % Baso % (Auto) 0.6 % Neut # (Auto) 3.29 (1.8-7.7) 10^3/u L Lymph # (Auto) 0.9 (0.8-4.8) 10^3/u L Howell # (Auto) 0.4 (0.2-0.9) 10^3/u L Eos # (Auto) 0.2 (0.0-0.8) 10^3/u L Baso # (Auto) 0.0 (0.0-0.1) 10^3/u L Nucleated RBC % (a uto) 0 % Nucleated RBCs # 0.0 /100WBC PT 27.00 H (12.1-14.9) SECO NDS INR 2.45 H (0.8-1.2) APTT 42.9 H (23.9-36.7) SECO NDS Specimen Type Sample Site ABG pH (7.35-7.45) ABG pCO2 (35-45) mmHg ABG pO2 (80.0-100.0) mmH g ABG HCO3 (22-26) mmol/L ABG O2 Saturation ABG Base Excess (-2.0-2.0) mmol/ L César Test A-a O2 Gradient (5-10) mmHg Hematocrit (37-47) % Hgb O2 Saturation (95-100) % Carboxyhemoglobin (0.4-20.1) %THgb Methemoglobin (0.4-1.5) % Total Hemoglobin (12-16) g/dL Ionized Calcium (1.1-1.4) mmol/L O2 Delivery Device FiO2 % Pit Furnace Melter ID Sodium 146 H (136-145) mmol/L Potassium 3.4 L (3.5-5.1) mmol/L Chloride 100 (98-107) mmol/L Carbon Dioxide 44 H* (22-29) mmol/L Anion Gap 5.4 (5-19) BUN 10 (8-23) mg/dL Creatinine 0.6 (0.5-0.9) mg/dL GFR Calculation Not Reportable Glucose 110 (65-115) mg/dL Calculated Osmolal ity 302 H (285-295) mOsm/k g Lactate (0.5-2.2) mmol/L Calcium 7.9 L (8.5-10.5) mg/dL Total Bilirubin 0.9 (0.15-1.2) mg/dL AST 13 (0-32) U/L ALT < 5 (0-33) U/L Alkaline Phosphata se 128 H (35-105) IU/L Total Protein 6.5 L (6.6-8.7) g/dL Albumin 3.9 (3.5-5.2) g/dL Globulin 2.6 (1.3-4.6) g/dL 02/25/21 02/26/21 Range/Units 23:10 01:50 WBC (4.0-10.0) 10^3/ uL RBC (4.1-5.3) 10^6/u L Hgb (11.5-15.3) g/dL Hct (37.0-47.0) % MCV (81-99) fL MCH (28.0-34.0) pg MCHC (30.0-36.0) g/dL RDW (12.1-15.1) % Plt Count (130-400) 10^3/c mm MPV (7.4-10.4) fL Neut % (Auto) % Lymph % (Auto) % Howell % (Auto) % Eos % (Auto) % Baso % (Auto) % Neut # (Auto) (1.8-7.7) 10^3/u L Lymph # (Auto) (0.8-4.8) 10^3/u L Howell # (Auto) (0.2-0.9) 10^3/u L Eos # (Auto) (0.0-0.8) 10^3/u L Baso # (Auto) (0.0-0.1) 10^3/u L Nucleated RBC % (a uto) % Nucleated RBCs # /100WBC PT (12.1-14.9) SECO NDS INR (0.8-1.2) APTT (23.9-36.7) SECO NDS Specimen Type Arterial Sample Site Radial, left ABG pH 7.36 (7.35-7.45) ABG pCO2 76.7 H* (35-45) mmHg ABG pO2 67.9 L (80.0-100.0) mmH g ABG HCO3 43.3 H (22-26) mmol/L ABG O2 Saturation 93.5 ABG Base Excess 15.4 H (-2.0-2.0) mmol/ L César Test Pos A-a O2 Gradient 7.2 (5-10) mmHg Hematocrit 28.7 L (37-47) % Hgb O2 Saturation 91.9 L (95-100) % Carboxyhemoglobin 1.3 (0.4-20.1) %THgb Methemoglobin 0.5 (0.4-1.5) % Total Hemoglobin 9.4 L (12-16) g/dL Ionized Calcium 1.1 (1.1-1.4) mmol/L O2 Delivery Device Bipap FiO2 30.0 % Pit Furnace Melter ID [id number] Sodium 148.0 H (136-145) mmol/L Potassium 3.4 L (3.5-5.1) mmol/L Chloride (98-107) mmol/L Carbon Dioxide (22-29) mmol/L Anion Gap (5-19) BUN (8-23) mg/dL Creatinine (0.5-0.9) mg/dL GFR Calculation Glucose 109.0 (65-115) mg/dL Calculated Osmolal ity (285-295) mOsm/k g Lactate 1.2 (0.5-2.2) mmol/L Calcium (8.5-10.5) mg/dL Total Bilirubin (0.15-1.2) mg/dL AST (0-32) U/L ALT (0-33) U/L Alkaline Phosphata se (35-105) IU/L Total Protein (6.6-8.7) g/dL Albumin (3.5-5.2) g/dL Globulin (1.3-4.6) g/dL Imaging Data^: CXR: Radiologist's impression: [address] [address] XRay Report Signed Patient: Iris Garcia Unit #: [id number] : 1940 Age/Sex: 80 / F ADM Date: 02/25/21 Loc: ER Room/Bed: Attending Dr: Ordering Provider/Ordering MD: Indu Reilly Date of Service: 02/25/21 Procedure(s): XR chest 1V portable [id number] Accession Number(s): [id number] Report Number: [id number] PROCEDURE INFORMATION: Exam: XR Chest Exam date and time: 02/25/2021 10:47 PM Age: 80 years old Clinical indication: Device placement; Picc; Prior surgery; Additional info: Picc line problem - ? placement - vrad to read please TECHNIQUE: Imaging protocol: XR of the chest. Views: 1 view. Total images: 1 COMPARISON: CR XR chest 1V portable [id number] 02/19/2021 9:20 AM FINDINGS: Tubes, catheters and devices: Right PICC line tip atrial caval junction. Lungs: No visible consolidated alveolar airspace disease. Senile fibrosis. Probable component of COPD/chronic bronchitis. Calcified granulomas of antecedent disease. Pleural spaces: No pleural effusion. No pneumothorax. Heart/Mediastinum: Cardiac structures and configuration with arteriosclerosis and cardiomegaly. Mitral valve prosthesis. Status post sternotomy chest. Bones/joints: Unremarkable for age. XR/XR chest 1V portable [id number] IMPRESSION: Right PICC line tip atrial caval junction. Dictated By: Cristiano Randolph Signed By: Cristiano Randolph Signed Date/Time: 2310 DD/ 09 CT Head: Radiologist's impression: [address] [address] [address] Scan Report Signed Patient: Iris Garcia Unit #: [id number] : 1940 Age/Sex: 80 / F ADM Date: 02/25/21 Loc: ER Room/Bed: Attending Dr: Ordering Provider/Ordering MD: Indu Reilly Date of Service: 02/25/21 Procedure(s): CT head wo con* [id number] Accession Number(s): [id number] Report Number: [id number] PROCEDURE INFORMATION: Exam: CT Head Without Contrast Exam date and time: 02/25/2021 11:36 PM Age: 80 years old Clinical indication: Altered mental status/memory loss; Confusion or disorientation; Patient HX: Supposed confusion. Patient denies any complaints. TECHNIQUE: Imaging protocol: Computed tomography of the head without contrast. Radiation optimization: All CT scans at this facility use at least one of these dose optimization techniques: automated exposure control; mA and/or kV adjustment per patient size (includes targeted exams where dose is matched to clinical indication); or iterative reconstruction. COMPARISON: CT head wo con* [id number] 10/24/2020 7:59 PM RADIATION DOSE METRICS: Total DLP (mGy-cm): 853.82 FINDINGS: Brain: No acute intracranial hemorrhage or mass effect. There is very mild decreased attenuation in the periventricular white matter, likely from microvascular disease. No definite acute infarct by CT. MRI could be more sensitive/specific for detection, as clinically directed. Cerebral ventricles: Ventricle size is normal for age. Bones/joints: No definite acute skull fracture. Paranasal sinuses: Included paranasal sinuses are essentially clear. Mastoid air cells: No significant acute finding. CT/CT head wo con* [id number] IMPRESSION: 1. No acute intracranial hemorrhage or mass effect. 2. No definite acute infarct by CT, see above. 3. Other findings discussed above. Radiation Dose CTDIVOL = (mGy): DLP = 853.82 (mGy-cm) Dictated By: Tex Bejarano MD Signed By: Tex Bejarano MD Signed Date/Time: 02/26/2123 DD/ Discharge Plan Discharge Patient Disposition: Admitted As Inpatient Admit Provider: Surinder Olivares Clinical Impression: Elevated CO2 level COPD (chronic obstructive pulmonary disease) Qualifiers: COPD type: unspecified COPD Qualified Code(s): J44.9 - Chronic obstructive pulmonary disease, unspecified Condition: Stable Coding Level of Care Code ED Infrastructure Analyst for [facility] Fwd Exam Comprehensive
[2021-02-25 23:19] LABS: Basophils % 0.6 %; Eosinophils # 0.2 10^3/uL (0.0-0.8); Eosinophils % 3.3 %; Hemoglobin 9.5 g/dL (11.5-15.3); Lymphocytes # 0.9 10^3/uL (0.8-4.8); Mean Corpuscular HGB Conc 28.8 g/dL (30.0-36.0); Mean Corpuscular Hemoglobin 28.7 pg (28.0-34.0); Mean Corpuscular Volume 99.7 fL (81-99); Mean Platelet Volume 9.2 fL (7.4-10.4); Monocytes # 0.4 10^3/uL (0.2-0.9); Monocytes % 8.1 %; Neutrophils # 3.29 10^3/uL (1.8-7.7); Neutrophils % 68.8 %; Nucleated Red Blood Cells % 0 %; Platelet Count 117 10^3/cmm (130-400); Red Blood Count 3.31 10^6/uL (4.1-5.3); Red Cell Distribution Width 15.8 % (12.1-15.1); White Blood Count 4.8 10^3/uL (4.0-10.0)
[2021-02-25 23:25] LABS: INR 2.45 (0.8-1.2)
[2021-02-25 23:26] LABS: Partial Thromboplastin Time 42.9 SECONDS (23.9-36.7)
[2021-02-25 23:30] LABS: Alanine Aminotransferase < 5 U/L (0-33); Albumin Level 3.9 g/dL (3.5-5.2); Alkaline Phosphatase 128 IU/L (35-105); Anion Gap 5.4 (5-19); Aspartate Amino Transferase 13 U/L (0-32); Blood Urea Nitrogen 10 mg/dL (8-23); Calcium 7.9 mg/dL (8.5-10.5); Chloride 100 mmol/L (98-107); Globulin 2.6 g/dL (1.3-4.6); Glucose 110 mg/dL (65-115); Osmolality Calculated 302 mOsm/kg (285-295); Potassium 3.4 mmol/L (3.5-5.1); Sodium 146 mmol/L (136-145); Total Bilirubin 0.9 mg/dL (0.15-1.2); Total Protein 6.5 g/dL (6.6-8.7)
[2021-02-25 23:31] LABS: Lactate (Lactic Acid level) 1.2 mmol/L (0.5-2.2)
[2021-02-25 23:32] LABS: Carbon Dioxide 44 mmol/L (22-29)
--- NOTE | 2021-02-25 23:35 | CTR_ITS ---
PROCEDURE INFORMATION: Exam: CT Head Without Contrast Exam date and time: 02/25/2021 11:36 PM Age: 80 years old Clinical indication: Altered mental status/memory loss; Confusion or disorientation; Patient HX: Supposed confusion. Patient denies any complaints. TECHNIQUE: Imaging protocol: Computed tomography of the head without contrast. Radiation optimization: All CT scans at this facility use at least one of these dose optimization techniques: automated exposure control; mA and/or kV adjustment per patient size (includes targeted exams where dose is matched to clinical indication); or iterative reconstruction. COMPARISON: CT head wo con* [id number] 10/24/2020 7:59 PM RADIATION DOSE METRICS: Total DLP (mGy-cm): 853.82 FINDINGS: Brain: No acute intracranial hemorrhage or mass effect. There is very mild decreased attenuation in the periventricular white matter, likely from microvascular disease. No definite acute infarct by CT. MRI could be more sensitive/specific for detection, as clinically directed. Cerebral ventricles: Ventricle size is normal for age. Bones/joints: No definite acute skull fracture. Paranasal sinuses: Included paranasal sinuses are essentially clear. Mastoid air cells: No significant acute finding. CT/CT head wo con* [id number] IMPRESSION: 1. No acute intracranial hemorrhage or mass effect. 2. No definite acute infarct by CT, see above. 3. Other findings discussed above. Radiation Dose CTDIVOL = (mGy): DLP = 853.82 (mGy-cm)
[2021-02-26] VITALS (21 sets, daily range): BP systolic 90–145; BP diastolic 30–85; PULSE 60–88; RESP 8–30; TEMP 36.4–37.2; O2SAT 93–100
[2021-02-26] MEDS: vancomycin 500 MG in sodium chloride 0.9% (plus) 100 ML 200 MG IV (01:08)
--- NOTE | 2021-02-26 01:10 | ECG_ITS ---
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 Measurements Intervals [place]rence Rate: 57 P: [place]: QRS: 48 QRSD: 97 T: 20 QT: 433 QTc: 425 Interpretive Statements COARSE ATRIAL FIBRILLATION/FLUTTER WITH SLOW VENTRICULAR RESPONSE NONSPECIFIC T-WAVE ABNORMALITY ABNORMAL RHYTHM ECG Compared to ECG 02/12/2021 21:07:29 No significant changes Electronically Signed On 03-07-2021 12:18:20 CDT by Tere Teixeira M.D. [id number]
[2021-02-26 01:58] LABS: ABG PH Result 7.36 (7.35-7.45); Alveolar-Arterial Oxygen Gradi 7.2 mmHg (5-10); Arterial Blood Gas Hematocrit 28.7 % (37-47); Base Excess ABG 15.4 mmol/L (-2.0-2.0); Blood Gas Allen Test Pos; Blood Gas Sample Site Radial, left; Blood Gas Sample Type Arterial; Carboxyhemoglobin 1.3 %THgb (0.4-20.1); HCO3 ABG 43.3 mmol/L (22-26); HGB O2 Sat 91.9 % (95-100); Ionized Calcium Level - ABG 1.1 mmol/L (1.1-1.4); Methemoglobin 0.5 % (0.4-1.5); Oxygen Device BIPAP; Oxygen Saturation ABG 93.5; PO2 ABG 67.9 mmHg (80.0-100.0); Potassium Level - ABG 3.4 mmol/L (3.5-5.0); Total Hemoglobin 9.4 g/dL (12-16)
--- NOTE | 2021-02-26 02:14 | P.HP_ITS ---
Providers/Chief Complaint Primary Care Provider: Michael Hampton DO Chief Complaint: bleeding from hep loc History of Present Illness Iris Garcia is a 80 year old female who was recently discharged from the hospital after management of gram-positive cocci bacteremia she was discharged with vancomycin regimen to be administered via PICC line(02/15?03/01), presenting today with chief complaint of worsening shortness of breath. Her compliance with trilogy at home is questionable today home health nurse checked on her and recommended visit to the ER because of her confusion and shortness of breath. Patient is stating that last night she did not use trilogy all night, today she just walked from her TV lounge to the restroom when she started experiencing shortness of breath, she is denying fever, chest pain, nausea, vomiting, diarrhea or dysuria. Of note on previous admission her echo revealed ejection fraction 50% mechanical mitral valve, moderate aortic valve calcification, no gross vegetation, no signs of endocarditis, blood culture positive for strep viridans and CoNs. sources of infection were pneumonia and stage II pressure ulcer of buttocks. Patient has history of chronic hypoxic hypercarbic respiratory failure uses BiPAP at night and 3 L of oxygen during the daytime, she uses Bumex for preserved ejection frac tion heart failure, uses Coumadin for mechanical valve and valvular A. fib. In the ER she was diagnosed with worsening hypercapnic respiratory failure however pH is compensated her bicarb seems to be acutely worsened, x-ray does not show worsening of pneumonia, bleeding was noted around the PICC line however her INR is therapeutic and hemoglobin is at baseline Review of Systems Const: Denies: fever(s) Eyes: Denies: change in vision ENMT: Denies: throat pain Card: Reports: swelling of feet/ankles, dyspnea on exertion and orthopnea; Denies: chest pain Resp: Reports: dyspnea GI: Denies: abdominal pain : Denies: flank pain Musc: Denies: neck pain Skin/Breast: Reports: lesions Neuro: Denies: headache(s) Psych: Denies: anxiety Endo: Denies: polyuria Jesus Alberto/Lymph: Denies: easy bruising All/Imm: Denies: urticaria Medications/Allergies Home Medications Medication Instructions Recorded Confirmed Last Taken Type fluoxetine 10 mg capsule 10 mg PO DAILY@09 cap 11/06/19 02/12/21 02/12/21 History polyethylene glycol 3350 17 17 gm PO DAILY PRN 11/06/19 02/12/21 02/25/20 History gram/dose oral powder carbidopa 10 mg-levodopa 100 mg 1 tab PO TID@ tab 03/12/20 02/12/21 02/12/21 History disintegrating tablet tolterodine 2 mg tablet 2 mg PO BID@03/12/20 02/12/21 02/12/21 History levothyroxine 50 mcg capsule 50 mcg PO DAILY@05/21/20 02/12/21 02/12/21 History ferrous gluconate 324 mg PO BID@11/10/20 02/12/21 02/12/21 History potassium chloride [Klor-Con 10] 20 meq PO BID@11/10/20 02/12/21 02/12/21 History sennosides-docusate sodium 2 tab PO BID PRN 11/10/20 02/12/21 Unknown History pantoprazole 40 mg PO BID@0900,209912/31/20 02/12/21 02/12/21 History warfarin 2 mg tablet 4 mg PO DAILY@0900 tab 01/07/21 02/12/21 02/12/21 History Advair Diskus 1 inh INHALATION BID@0900,209902/12/21 02/12/21 02/12/21 History Miralax 17 g PO DAILY@0900 02/12/21 02/12/21 Unknown History ProAir RespiClick 1 inh INHALATION Q6H PRN 02/12/21 02/12/21 Unknown History Vitamin D-3 with Aloe 1 tab PO DAILY 02/12/21 02/12/21 Unknown History bumetanide 1 mg PO BID@0900,2100 PRN 02/12/21 02/12/21 02/12/21 History isosorbide mononitrate 30 mg PO BID@0900,209902/12/21 02/12/21 02/12/21 History metoprolol tartrate 12.5 mg PO BID@0900,2100 02/12/21 02/12/21 02/12/21 History nitroglycerin 0.4 mg SUBLINGUAL Q5M PRN 02/12/21 02/12/21 Unknown History rosuvastatin 10 mg PO DAILY@0900 02/12/21 02/12/21 02/12/21 History tramadol See Rx Instructions .ROUTE 02/12/21 02/12/21 Unknown History .COMPLEX PRN Allergies Allergy/AdvReac Type Severity Reaction Status Date / Time penicillin G Allergy UNK Verified 12/31/20 08:42 PFSH Acute PFSH: Medical History (Updated 02/26/21 @ 03:00 by Surinder Olivares MD) Acute exacerbation of COPD with asthma Afib Anemia -baseline Hg around 9-10 -follow with Dr Bullock CAD (coronary artery disease) Chronic anticoagulation Due to mechanical mitral valve; coumadin Chronic hypercapnic respiratory failure COPD (chronic obstructive pulmonary disease) Depression Diastolic CHF GERD (gastroesophageal reflux disease) PPI HTN (hypertension) Hypothyroidism -continue levothyroxine Iron deficiency anemia Has required transfusion in past, last egd and colonoscopy ~2017 with diverticulosis and internal hemorrhoids, SONYA (obstructive sleep apnea) Parkinson disease Follows up with Dr. Rainey in [facility]'s ring Weakness Surgical History History of bilateral tubal ligation History of cholecystectomy History of total knee arthroplasty Left Mitral valve replaced Mechanical, on coumadin Family History Mother CAD (coronary artery disease) Diabetes Other Hypertension Social History Smoking and tobacco status: former smoker Quit status (tobacco): has quit using tobacco Year quit tobacco: 1994 - PPD x 15 Years Second hand smoke exposure: No Alcohol intake: never Caregiver/support person: Yes Household members: spouse and children Housing: House Marital status: Current occupational status: retired and disabled History of recent travel: No Current gender identity: Female Vitals/I&O/Wt Last Vital Signs Temp 98.0 F 02/25/21 22:36 Pulse 60 02/26/21 01:14 Resp 24 H 02/25/21 22:36 BP 90/30 02/26/21 01:14 Pulse Ox 94 02/26/21 01:14 Weight last 48 hrs Weight 59.874 kg Physical Exam Narrative: EXAM NARRATIVE: Very pleasant elderly female Currently on BiPAP settings 16/6 respiratory rate 11 tidal volume 500 Was able to give above HPI She is awake and alert oriented x3 GCS 15 no confusion noted during my evaluation She has been on BiPAP for last few hours Variable S1-S2 loud murmur all over precordium, mild signs of CHF exacerbation with 1+ pitting edema of lower extremity Lower extremity venous stasis dermatitis no active cellulitis Abdomen soft bowel sound present Bilateral breath sounds, assisted No acute respiratory distress No neurological deficits Appropriate mood and affect Data : 02/25/21 23:10 02/25/21 23:10 A&P Assessment and plan (1) COPD exacerbation: Acute COPD exacerbation with hypercapnia secondary to noncompliance with trilogy at home however pH seems compensated and there is compensatory response of rise of bicarb on BMP Hypercapnic encephalopathy improved after use of BiPAP in the ER Her x-rays showing improvement Previous blood culture were negative I would continue her on BiPAP for now and repeat ABG at 7 AM No active chest pain, fever or signs of sepsis Status: Acute Additional A&P Information Metabolic alkalosis In compensation to acute hypercapnia Clinically looks slightly fluid overloaded I would not increase her Bumex, if her alkalosis is worsening would recommend carbonic anhydrase inhibitor alternate with Bumex Mechanical mitral valve/valvular A. fib INR therapeutic continue Coumadin regimen No active bleeding at the PICC line, hemoglobin stable Hypokalemia: Potassium repleted Gram-positive cocci bacteremia Her repeat blood cultures were negative, continue vancomycin, will obtain trough level, 5/3 is her last vancomycin dosage CODE STATUS: AND Cardiac diet DVT prophylaxis not indicated Attestations Medical Necessity Statement*: Anticipating discharge in less than 48 hours will need BiPAP usage for worsening hypercapnia, her confusion has already improved Time Spent in Patient Care: 40mins Coding Level of Care Code Acute Wood Carving Lathe Operator for Norma Yeh Diagnoses COPD exacerbation J44.1
[2021-02-26] MEDS: sodium chloride 0.9% 500 ML 999 ML IV (02:31)
[2021-02-26 03:29] LABS: Vancomycin Trough 23.8 ug/mL (10-15)
--- NOTE | 2021-02-26 04:29 | PC.PHAR ---
Vancomycin is dosed at 1gm IVPB ever 24 hours to produce a predicted trough level of 11.27 (population based pharmacokinetic analysis). A trough level has been ordered from the lab to be obtained before the fourth dose to confirm and adjust if needed.
[2021-02-26 05:09] LABS: ABG PCO2 76.7 mmHg (35-45)
[2021-02-26 06:24] LABS: ABG PH Result 7.32 (7.35-7.45); Arterial Blood Gas Hematocrit 28.8 % (37-47); Blood Gas Allen Test Pos; Blood Gas LPM 3.5 %; Blood Gas Sample Site Radial, left; Blood Gas Sample Type Arterial; HCO3 ABG 41.4 mmol/L (22-26); Oxygen Device NC
[2021-02-26 06:25] LABS: ABG PCO2 80.2 mmHg (35-45)
[2021-02-26] MEDS: potassium chloride ER 20 mEq Tablet PO ×2 (08:56→21:34)
[2021-02-26] MEDS: ferrous gluconate 324 mg Tablet PO ×2 (08:56→21:34)
[2021-02-26] MEDS: warfarin 2 mg Tablet 4 MG PO (08:56)
[2021-02-26] MEDS: metoprolol tartrate 25 mg Tablet 12.5 MG PO ×2 (08:57→21:34)
[2021-02-26] MEDS: polyethylene glycol 3350 Pkt 17 gm PO (08:59)
[2021-02-26] MEDS: atorvastatin 40 mg Tablet PO (08:59)
[2021-02-26] MEDS: pantoprazole DR 40 mg Tablet PO ×2 (08:59→21:34)
[2021-02-26] MEDS: levothyroxine 50 mcg Tablet PO (08:59)
[2021-02-26] MEDS: bumetanide 1 mg Tablet PO (09:00)
[2021-02-26] MEDS: ipratropium-albuterol 3 mL Neb INHALATION ×3 (11:10→20:53)
[2021-02-26] MEDS: vancomycin 1,000 MG in sodium chloride 0.9% 250 ML 250 MG IV (13:32)
--- NOTE | 2021-02-26 15:10 | P.PN_ITS ---
Subjective Subjective: Interval history: Patient was seen and examined this morning, doing well on BiPAP, shortness of breath and hypercapnic encephalopathy has improved, PICC line site was examined, slight oozing present, no hematoma, no obvious infection, pulses were good in the right upper extremity. Vitals/I&O/Wt Last Vital Signs Temp 97.5 F L 02/26/21 11:54 Pulse 67 02/26/21 11:54 Resp 17 02/26/21 11:54 BP 110/64 02/26/21 11:54 Pulse Ox 94 02/26/21 11:54 02/26/21 02/26/21 02/26/21 06:59 14:59 22:59 Intake Total 600 / 600 720 / 720 Balance 600 / 600 720 / 720 Weight last 48 hrs Weight 59.874 kg Physical Exam Const: COMMON NORMALS: patient oriented x3 HENMT: COMMON NORMALS: normocephalic and atraumatic HEAD & SCALP: normocephalic and atraumatic Chest: CHEST: Yes Symmetrical chest wall rise Resp: COMMON NORMALS: normal respiratory effort EFFORT & INSPECTION: Yes symmetric chest movement OTHER: Bilateral wheezing in both the lung mckeon Cardio: OTHER: Mechanical mitral click GI: COMMON NORMALS: Normal to inspection, nondistended, normoactive bowel sounds present, Soft to palpation, non-tender, No hepatosplenomegaly present and no masses AUSCULTATION: Yes normoactive bowel sounds PALPATION: Yes Soft t o palpation and Yes No hepatosplenomegaly present RECTAL EXAM: deferred Extremity: COMMON NORMALS: no clubbing, cyanosis or edema and no pedal edema Neuro: COMMON NORMALS: patient oriented x3 Data : 02/25/21 23:10 02/25/21 23:10 A&P Assessment and plan (1) COPD exacerbation: Acute COPD exacerbation with hypercapnia secondary to noncompliance with trilogy at home however pH seems compensated and there is compensatory response of rise of bicarb on BMP Hypercapnic encephalopathy improved after use of BiPAP in the ER Her x-rays showing improvement Previous blood culture were negative I would continue her on BiPAP for now and repeat ABG at 7 AM No active chest pain, fever or signs of sepsis Status: Acute Additional A&P Information Metabolic alkalosis In compensation to acute hypercapnia Clinically looks slightly fluid overloaded I would not increase her Bumex, if her alkalosis is worsening would recommend carbonic anhydrase inhibitor alternate with Bumex Mechanical mitral valve/valvular A. fib INR therapeutic continue Coumadin regimen No active bleeding at the PICC line, hemoglobin stable Hypokalemia: Potassium repleted Gram-positive cocci bacteremia Her repeat blood cultures were negative, continue vancomycin, will obtain trough level, 5/3 is her last vancomycin dosage CODE STATUS: AND Cardiac diet DVT prophylaxis not indicated Attestations Medical Necessity Statement*: Patient needs to be in hospital for management of above medical conditions. Coding Level of Care Code Acute Historic Sites Registrar for Norma Yeh Diagnoses COPD exacerbation J44.1
--- NOTE | 2021-02-26 18:42 | PC.NURSE ---
[facility] Patient has wore the BIPAP today and states that she is breathing much better. Patient has been up with x1 assist and walker to the bathroom.
[2021-02-27] VITALS (19 sets, daily range): BP systolic 107–150; BP diastolic 55–69; PULSE 54–90; RESP 15–29; TEMP 36.4–36.9; O2SAT 93–100
[2021-02-27] MEDS: ipratropium-albuterol 3 mL Neb INHALATION ×6 (00:26→20:55)
[2021-02-27 06:25] LABS: Eosinophils # 0.2 10^3/uL (0.0-0.8); Eosinophils % 4.9 %; Hematocrit 28.9 % (37.0-47.0); Hemoglobin 8.5 g/dL (11.5-15.3); Lymphocytes # 0.7 10^3/uL (0.8-4.8); Lymphocytes % 21.7 %; Mean Corpuscular HGB Conc 29.4 g/dL (30.0-36.0); Mean Corpuscular Hemoglobin 28.9 pg (28.0-34.0); Mean Corpuscular Volume 98.3 fL (81-99); Mean Platelet Volume 9.4 fL (7.4-10.4); Monocytes # 0.3 10^3/uL (0.2-0.9); Monocytes % 9.5 %; Neutrophils % 62.6 %; Nucleated Red Blood Cells % 0 %; Platelet Count 117 10^3/cmm (130-400); Red Blood Count 2.94 10^6/uL (4.1-5.3); Red Cell Distribution Width 16.1 % (12.1-15.1)
[2021-02-27 06:41] LABS: INR 2.32 (0.8-1.2)
[2021-02-27 07:13] LABS: Anion Gap 6.7 (5-19); Blood Urea Nitrogen 9 mg/dL (8-23); Calcium 8.2 mg/dL (8.5-10.5); Carbon Dioxide 38 mmol/L (22-29); Chloride 105 mmol/L (98-107); Glucose 91 mg/dL (65-115); Osmolality Calculated 300 mOsm/kg (285-295); Potassium 3.7 mmol/L (3.5-5.1); Sodium 146 mmol/L (136-145)
[2021-02-27] MEDS: pantoprazole DR 40 mg Tablet PO ×2 (08:23→20:47)
[2021-02-27] MEDS: potassium chloride ER 20 mEq Tablet PO ×2 (08:23→20:48)
[2021-02-27] MEDS: levothyroxine 50 mcg Tablet PO (08:23)
[2021-02-27] MEDS: warfarin 2 mg Tablet 4 MG PO (08:23)
[2021-02-27] MEDS: ferrous gluconate 324 mg Tablet PO ×2 (08:24→20:47)
[2021-02-27] MEDS: bumetanide 1 mg Tablet PO (08:24)
[2021-02-27] MEDS: atorvastatin 40 mg Tablet PO (08:24)
[2021-02-27] MEDS: polyethylene glycol 3350 Pkt 17 gm PO (08:25)
[2021-02-27] MEDS: metoprolol tartrate 25 mg Tablet 12.5 MG PO ×2 (08:25→20:47)
--- NOTE | 2021-02-27 12:45 | PM.PN ---
Subjective Subjective: Interval history: Patient was seen and examined this morning, no acute events overnight. Patient used BiPAP all night. She was seen on nasal cannula this morning, currently she is alert and oriented. PICC line site was examined, and it is clean, no oozing seen. Vitals/I&O/Wt Last Vital Signs Temp 98.2 F 02/27/21 12:00 Pulse 60 02/27/21 12:00 Resp 15 02/27/21 12:00 BP 133/65 02/27/21 12:00 Pulse Ox 100 02/27/21 12:00 02/26/21 02/27/21 02/27/21 22:59 06:59 14:59 Intake Total 240 / 1210 250 / 250 Output Total 150 / 150 550 / 550 Balance 90 / 1060 -300 / -300 Weight last 48 hrs Weight 59.874 kg Physical Exam Const: COMMON NORMALS: patient oriented x3 HENMT: COMMON NORMALS: normocephalic and atraumatic HEAD & SCALP: normocephalic and atraumatic Chest: CHEST: Yes Symmetrical chest wall rise Resp: COMMON NORMALS: normal respiratory effort EFFORT & INSPECTION: Yes symmetric chest movement OTHER: Minimal bilateral wheezing in both the lung mckeon, minimal bilateral basal crackles. Cardio: OTHER: Mechanical mitral click GI: COMMON NORMALS: Normal to inspection, nondistended, normoactive bowel sounds present, Soft to palpation, non-tender, No hepatosplenomegaly present and no masses AUSCULTATION: Yes normoactive bowel sounds PALPATION: Yes Soft to palpation and Yes No hepatosplenomegaly present RECTAL EXAM: deferred Extremity: COMMON NORMALS: no clubbing, cyanosis or edema and no pedal edema Neuro: COMMON NORMALS: patient oriented x3 Data : 02/27/21 05:52 02/27/21 05:52 A&P Assessment and plan (1) COPD exacerbation: Acute COPD exacerbation with hypercapnia secondary to noncompliance with trilogy at home however pH seems compensated and there is compensatory response of rise of bicarb on BMP Hypercapnic encephalopathy improved after use of BiPAP in the ER Her x-rays showing improvement Previous blood culture were negative I would continue her on BiPAP for now and repeat ABG at 7 AM No active chest pain, fever or signs of sepsis Status: Acute Additional A&P Information Metabolic alkalosis In compensation to acute hypercapnia Clinically looks slightly fluid overloaded I would not increase her Bumex, if her alkalosis is worsening would recommend carbonic anhydrase inhibitor alternate with Bumex Mechanical mitral valve/valvular A. fib INR therapeutic continue Coumadin regimen No active bleeding at the PICC line, hemoglobin stable Hypokalemia: Potassium repleted Gram-positive cocci bacteremia Her repeat blood cultures were negative, continue vancomycin, will obtain trough level, 5/3 is her last vancomycin dosage CODE STATUS: AND Cardiac diet DVT prophylaxis not indicated Attestations Medical Necessity Statement*: Patient needs to be in hospital for management of COPD exacerbation. Coding Level of Care Code Acute Certified Technician Specialist for Norma Yeh Diagnoses COPD exacerbation J44.1
[2021-02-27] MEDS: warfarin 2 mg Tablet PO (13:37)
[2021-02-27] MEDS: nystatin powder 15 gm Btl 1 APPLIC TOPICAL (13:38)
[2021-02-27] MEDS: vancomycin 1,000 MG in sodium chloride 0.9% 250 ML 250 MG IV (13:40)
--- NOTE | 2021-02-27 19:18 | PC.NURSE ---
Report to Berta RASCON at tis time.
[2021-02-28] VITALS (21 sets, daily range): BP systolic 115–161; BP diastolic 50–77; PULSE 60–120; RESP 14–32; TEMP 36.4–37.6; O2SAT 94–100
[2021-02-28] MEDS: ipratropium-albuterol 3 mL Neb INHALATION ×6 (03:04→23:50)
[2021-02-28 06:49] LABS: Eosinophils # 0.1 10^3/uL (0.0-0.8); Eosinophils % 3.4 %; Hematocrit 31.8 % (37.0-47.0); Hemoglobin 9.2 g/dL (11.5-15.3); Lymphocytes # 0.6 10^3/uL (0.8-4.8); Lymphocytes % 14.8 %; Mean Corpuscular HGB Conc 28.9 g/dL (30.0-36.0); Mean Corpuscular Hemoglobin 28.8 pg (28.0-34.0); Mean Corpuscular Volume 99.7 fL (81-99); Mean Platelet Volume 10.4 fL (7.4-10.4); Monocytes # 0.4 10^3/uL (0.2-0.9); Monocytes % 9.2 %; Neutrophils # 2.96 10^3/uL (1.8-7.7); Neutrophils % 71.6 %; Nucleated Red Blood Cells % 0 %; Platelet Count 109 10^3/cmm (130-400); Red Blood Count 3.19 10^6/uL (4.1-5.3); Red Cell Distribution Width 15.9 % (12.1-15.1); White Blood Count 4.1 10^3/uL (4.0-10.0)
[2021-02-28 07:00] LABS: INR 2.68 (0.8-1.2)
[2021-02-28 07:18] LABS: Blood Urea Nitrogen 10 mg/dL (8-23); Calcium 8.2 mg/dL (8.5-10.5); Carbon Dioxide 35 mmol/L (22-29); Chloride 103 mmol/L (98-107); Glucose 91 mg/dL (65-115); Osmolality Calculated 295 mOsm/kg (285-295); Sodium 143 mmol/L (136-145)
[2021-02-28] MEDS: pantoprazole DR 40 mg Tablet PO ×2 (08:40→20:04)
[2021-02-28] MEDS: ferrous gluconate 324 mg Tablet PO ×2 (08:40→20:05)
[2021-02-28] MEDS: metoprolol tartrate 25 mg Tablet 12.5 MG PO ×2 (08:40→20:05)
[2021-02-28] MEDS: polyethylene glycol 3350 Pkt 17 gm PO (08:41)
[2021-02-28] MEDS: levothyroxine 50 mcg Tablet PO (08:44)
[2021-02-28] MEDS: bumetanide 1 mg Tablet PO ×3 (08:44→19:35)
[2021-02-28] MEDS: warfarin 2 mg Tablet 4 MG PO (08:44)
[2021-02-28] MEDS: atorvastatin 40 mg Tablet PO (08:45)
[2021-02-28] MEDS: potassium chloride ER 20 mEq Tablet PO ×2 (08:45→20:04)
[2021-02-28] MEDS: nystatin powder 15 gm Btl 1 APPLIC TOPICAL ×2 (10:09→18:22)
--- NOTE | 2021-02-28 12:45 | PM.PN ---
Subjective Subjective: Interval history: Patient was seen and examined this morning, she was complaining of worsening shortness of breath, this morning, worsening bilateral crackles, in both the lungs mckeon. Received additional dose of Bumex 1 mg p.o. and Bumex has been changed to 1 mg p.o. twice daily daily from 1 mg p.o. daily. Vitals/I&O/Wt Last Vital Signs Temp 98.3 F 02/28/21 07:25 Pulse 72 02/28/21 11:35 Resp 22 H 02/28/21 11:25 BP 126/50 02/28/21 07:25 Pulse Ox 97 02/28/21 11:25 02/27/21 02/28/21 02/28/21 22:59 06:59 14:59 Intake Total 240 / 980 240 / 240 Output Total 700 / 1550 250 / 1800 Balance -460 / -570 -250 / -820 240 / 240 Physical Exam Const: COMMON NORMALS: patient oriented x3 HENMT: COMMON NORMALS: normocephalic and atraumatic HEAD & SCALP: normocephalic and atraumatic Chest: CHEST: Yes Symmetrical chest wall rise Resp: COMMON NORMALS: normal respiratory effort EFFORT & INSPECTION: Yes symmetric chest movement OTHER: Minimal bilateral wheezing in both the lung mckeon, minimal bilateral basal crackles. Cardio: OTHER: Mechanical mitral click GI: COMMON NORMALS: Normal to inspection, nondistended, normoactive bowel sounds present, Soft to palpation, non-tender, No hepatosplenomegaly present and no masses AUSCULTATION: Yes normoactive bowel sounds PALPATION: Yes Soft to palpation and Yes No hepatosplenomegaly present RECTAL EXAM: deferred Extremity: COMMON NORMALS: no clubbing, cyanosis or edema and no pedal edema Neuro: COMMON NORMALS: patient oriented x3 Data : 02/28/21 05:44 02/28/21 05:44 A&P Assessment and plan (1) COPD exacerbation: Status: Acute (2) Gram-positive cocci bacteremia: Status: Acute (3) Chronic respiratory failure with hypoxia and hypercapnia: Status: Acute (4) Mitral valve replaced: Status: Acute (5) Diastolic CHF: Status: Acute Additional A&P Information # Acute COPD exacerbation with hypercapnia secondary to noncompliance with trilogy at home. Patient is at 3 L oxygen at home, currently she is at her baseline oxygen requirement. Patient has been compliant with her BiPAP in the hospital. Hypercapnic encephalopathy has resolved, currently she is at her baseline mentation, alert oriented x3. We will continue with duo nebs. Currently she is not actively wheezing, will hold on steroids. # Heart failure with preserved ejection fraction: We will continue Bumex 1 mg p.o. every 12 hours. Intake output charting Daily weight k>4, mg > 2 #Recent history of Gram-positive cocci bacteremia: She was recently discharged from hospital on IV Vancomycin for 2 weeks. As Blood culture from admission was positive for strep viridans and CoNs. Repeat blood cultures negative as of February 15, 2021. PICC line was placed.PICC line was removed on 02/28, as there was slight oozing at the PICC line site, and patient is on warfarin and possibly being additional source of infection. patient will receive 1 more day of Zyvox p.o. 600 every 12h, to complete the antibiotic course. # Mechanical mitral valve/valvular A. fib INR therapeutic continue Coumadin regimen CODE STATUS: AND Cardiac diet DVT prophylaxis not indicated Attestations Medical Necessity Statement*: Patient needs to be in hospital for management of acute COPD exacerbation, heart failure. Coding Level of Care Code Acute Carding Machine Operator for Norma Yeh Diagnoses COPD exacerbation J44.1 Gram-positive cocci bacteremia R78.81 Chronic respiratory failure with hypoxia and hypercapnia J96.11; J96.12 Mitral valve replaced Z95.2 Diastolic CHF I50.30
--- NOTE | 2021-02-28 12:45 | PC.CHAP ---
Pastoral Care Encounter/Spiritual Assessment Type of Contact [] Declined material analyst visit [] Patient/Family/Request visit [] Outpatient visit [] Follow-up visit [] Physician referral [] Code/Alert [XX] Routine visit [] Staff referral [] Actively dying [] Patient sleeping [] Family support [] [] Out of room [] Palliative care [] [] Receiving care in room [] Pre-surgical visit [] Trauma [] Long length of stay [] ICU visit [] Other: Relational/Emotional Strength [XX] Patient feels connected with others/family/visitors/staff [] Distress [] Loneliness/isolation [] Abandonment Spirituality of Patient [XX] Person of Vivian [] Attends Catholic of their Vivian [XX] Believes in Prayer [] Reads Bible or Taoism materials [] There are Spiritual issues to be addressed Electronic Imager Interventions [] Prayer [XX] Active listening [XX] Non-anxious presence [] Spiritual/emotional support [] Crisis/trauma care [] Spiritual counseling [] Bereavement support [] Provided bereavement packet [] Provided Bible/devotional materials [] Provided toy/stuffed animal, coloring book to patient or family member [] Provided Communion [] Anointing/[place] [] Salvation [XX] Completed spiritual assessment [] Other: Impact on Illness or Injury [] Angry [] Fearful [] Anxious [] Often cries [] Exhaustion [] Unable to work [] Unable to attend congregational [] Unable to walk/stand [] Unable to read [] Unable to drive [] Unable to eat/drink [] Unable to sleep [] Unable to be with family [] Patient intubated [] Other: Summary: Pt was eating lunch when material analyst stopped by to visit. Additionally, it was difficult for patient to talk without becoming short of breath. Electronic Imager intervened, suggesting that visit be cut short until she's able to visit without becoming short of breath. When asked if material analyst could offer prayer, pt stated that she counts on prayers of her advent, [employer] [place]. Time spent with patient: 5 - 7 mins
[2021-02-28] MEDS: vancomycin 1,000 MG in sodium chloride 0.9% 250 ML 250 MG IV (13:44)
--- NOTE | 2021-02-28 16:42 | PC.NURSE ---
1615 Dr. Perales called and gave a verbal order to remove PICC Line at this time. 1630 PICC Line removed. PRessure held for 15 minutes as patient has been taking warfarin daily. No bleeding noted. Pressure dressing applied after pressure being held. 1642 no bleeding noted. Patient tolerated well.
--- NOTE | 2021-02-28 18:57 | PC.NURSE ---
[facility]
[2021-03-01] VITALS (12 sets, daily range): BP systolic 113–150; BP diastolic 48–81; PULSE 57–87; RESP 16–20; TEMP 36.9–37.2; O2SAT 93–98
[2021-03-01] MEDS: ipratropium-albuterol 3 mL Neb INHALATION ×3 (04:23→12:44)
--- NOTE | 2021-03-01 04:40 | PC.NURSE ---
flooded brief, total bed change
[2021-03-01 05:04] LABS: Basophils % 0.7 %; Eosinophils # 0.1 10^3/uL (0.0-0.8); Hematocrit 29.8 % (37.0-47.0); Hemoglobin 8.9 g/dL (11.5-15.3); Lymphocytes # 0.6 10^3/uL (0.8-4.8); Lymphocytes % 13.5 %; Mean Corpuscular HGB Conc 29.9 g/dL (30.0-36.0); Mean Corpuscular Hemoglobin 29.1 pg (28.0-34.0); Mean Corpuscular Volume 97.4 fL (81-99); Monocytes # 0.5 10^3/uL (0.2-0.9); Neutrophils # 3.13 10^3/uL (1.8-7.7); Neutrophils % 71.6 %; Nucleated Red Blood Cells % 0 %; Platelet Count 120 10^3/cmm (130-400); Red Blood Count 3.06 10^6/uL (4.1-5.3); White Blood Count 4.4 10^3/uL (4.0-10.0)
[2021-03-01 05:11] LABS: INR 3.68 (0.8-1.2)
[2021-03-01 05:32] LABS: Anion Gap 7.6 (5-19); Blood Urea Nitrogen 9 mg/dL (8-23); Carbon Dioxide 40 mmol/L (22-29); Chloride 101 mmol/L (98-107); Glucose 100 mg/dL (65-115); Osmolality Calculated 299 mOsm/kg (285-295); Potassium 3.6 mmol/L (3.5-5.1); Sodium 145 mmol/L (136-145)
[2021-03-01 05:56] LABS: Calcium 8.2 mg/dL (8.5-10.5)
[2021-03-01] MEDS: linezolid 600 mg Tablet PO (06:20)
--- NOTE | 2021-03-01 09:27 | PC.PHAR ---
Pharmacy warfarin consult: INR increased to 3.68 (up from 2.68). Resume home dose alternating 3 & 2 mg (3 mg sutuwethsa & 2 mg mofr)
[2021-03-01] MEDS: nystatin powder 15 gm Btl 1 APPLIC TOPICAL (10:28)
[2021-03-01] MEDS: levothyroxine 50 mcg Tablet PO (10:28)
[2021-03-01] MEDS: metoprolol tartrate 25 mg Tablet 12.5 MG PO (10:28)
[2021-03-01] MEDS: ferrous gluconate 324 mg Tablet PO (10:28)
[2021-03-01] MEDS: polyethylene glycol 3350 Pkt 17 gm PO (10:28)
[2021-03-01] MEDS: atorvastatin 40 mg Tablet PO (10:28)
[2021-03-01] MEDS: potassium chloride ER 20 mEq Tablet PO (10:29)
[2021-03-01] MEDS: bumetanide 1 mg Tablet PO (10:29)
[2021-03-01] MEDS: pantoprazole DR 40 mg Tablet PO (10:29)
--- NOTE | 2021-03-01 12:02 | PM.DCS ---
Discharge Providers Date of Admission: 02/26/21 20:12 Date of Discharge: March 01, 2021 Attending Provider at Admission: Surinder Olivares MD Attending Provider at Discharge: Geoff Prince MD Primary Care Provider: Michael Hampton DO Diagnoses at Discharge Discharge Diagnosis (1) COPD exacerbation: Status: Acute (2) Gram-positive cocci bacteremia: Status: Acute (3) Chronic respiratory failure with hypoxia and hypercapnia: Status: Acute (4) Mitral valve replaced: Status: Acute Permanent problem details: Mechanical, on coumadin (5) Diastolic CHF: Status: Acute Reason for Visit Reason for Visit: bleeding from hep loc Hospital Course Hospital Course This is a 80-year-old female with a past medical history of atrial fibrillation, history of mechanical mitral valve, on chronic Coumadin, history of diastolic CHF, history of anemia, 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 Patient received inpatient BiPAP therapy, steroids, nebulizer treatments, and clinically monitored. Patient clinically improved, down to her home 3 L. She did receive inpatient diuresis with Bumex, diuresed over 3.4 L. Patients respiratory status improved, ambulating without significant symptomatology, discharged home with Bumex 1 mg daily, steroid taper, potassium replacement, Advair, Spiriva, albuterol, with close follow-up with pulmonary as as outpatient. For her recent history of gram-positive bacteremia, her PICC line was removed due to concerns for oozing at the PICC line site, she received Zyvox as inpatient, she will receive her last dose of Zyvox tonight. Repeat blood cultures are negative as of 02/16/2021. For her mechanical mitral valve/valvular A. fib, her Coumadin dosing was adjusted, to 2 mg of Coumadin Monday and Monday. 3 mg the rest the day. Recheck INR in 1 week. INR on discharge 03/01/2021 was 3.68 today. Physical Exam Const: COMMON NORMALS: no acute distress and patient oriented x3 HENMT: COMMON NORMALS: normocephalic HEAD & SCALP: normocephalic Neck/C-Spine: COMMON NORMALS: no JVD Resp: COMMON NORMALS: normal respiratory effort, No retractions, No use of accessory muscles and clear to auscultation bilaterally AUSCULTATION: clear to auscultation bilaterally Cardio: COMMON NORMALS: no JVD, regular rate, regular rhythm, S1 normal heart sound present and S2 normal heart sound present RATE: regular rate RHYTHM: regular rhythm HEART SOUNDS: S1 normal heart sound present and S2 normal heart sound present GI: COMMON NORMALS: Normal to inspection, nondistended, normoactive bowel sounds present, Soft to palpation, non-tender, No hepatosplenomegaly present, no masses and no bruits PALPATION: Yes Soft to palpation and Yes No hepatosplenomegaly present Extremity: COMMON NORMALS: no pedal edema Neuro: COMMON NORMALS: patient oriented x3 Psych: COMMON NORMALS: mental status grossly normal Discharge Data Data Completed and Pending: Completed Studies During Hospitalization Category Date Time Status CT head wo con* 7 0450 Urgent Cat Scan 02/25/21 23:35 Completed XR chest 1V mary ble [id number] Stat Exams 02/25/21 22:45 Completed Pending at discharge Category Date Time Status Vancomycin Trough Timed Lab 03/01/21 12:00 Ordered Labs from last 24 hours 03/01/21 03/01/21 03/01/21 04:15 04:15 04:15 WBC 4.4 RBC 3.06 L Hgb 8.9 L Hct 29.8 L MCV 97.4 MCH 29.1 MCHC 29.9 L RDW 16.0 H Plt Count 120 L MPV 10.0 Neut % (Auto) 71.6 Lymph % (Auto) 13.5 Hitchcock % (Auto) 11.0 Eos % (Auto) 3.0 Baso % (Auto) 0.7 Neut # (Auto) 3.13 Lymph # (Auto) 0.6 L Hitchcock # (Auto) 0.5 Eos # (Auto) 0.1 Baso # (Auto) 0.0 Nucleated RBC % (a uto) 0 Nucleated RBCs # 0.0 PT 37.10 H INR 3.68 H Sodium 145 Potassium 3.6 Chloride 101 Carbon Dioxide 40 H Anion Gap 7.6 BUN 9 Creatinine 0.7 GFR Calculation Not Reportable Glucose 100 Calculated Osmolal ity 299 H Calcium 8.2 L Vitals: Last Vital Signs Temp 99.0 F 03/01/21 11:21 Pulse 79 03/01/21 11:21 Resp 16 03/01/21 11:21 BP 127/49 03/01/21 11:21 Pulse Ox 98 03/01/21 11:21 Discharge Plan Discharge Patient Disposition: Home Condition: Stable Prescriptions: New nystatin [Nystop] 100,000 unit/gram Powder 1 applic topical BID PRN (Reason: rash) Qty: 60 RF: 0 warfarin 2 mg Tablet 2 mg PO MoFr@1400 30 Days Qty: 30 RF: 0 linezolid 600 mg Tablet 600 mg PO DAILY 1 Days Qty: 1 RF: 0 warfarin [Jantoven] 3 mg Tablet 3 mg PO SuTuWeThSa@1400 30 Days Qty: 30 RF: 0 Spiriva Respimat 1.25 mcg/actuation mist 2 inh inhalation Q24H Qty: 4 RF: 0 Continued fluoxetine 10 mg capsule 10 mg PO DAILY@09 RF: 0 carbidopa-levodopa 10-100 mg tablet,disintegrating 1 tab PO TID@,, RF: 0 levothyroxine 50 mcg capsule 50 mcg PO DAILY@09 RF: 0 tolterodine 2 mg tablet 2 mg PO BID@ RF: 0 tramadol 50 mg Tablet 50 mg PO Q6H PRN (Reason: Pain) RF: 0 cholecalciferol (vitamin D3) [Vitamin D3] 25 mcg (1,000 unit) Capsule 25 mcg PO DAILY@0900 Qty: 0 RF: 0 polyethylene glycol 3350 [Miralax] 17 gram Powder In Packet 17 g PO DAILY@0900 RF: 0 nitroglycerin 0.4 mg Tablet, Sublingual 0.4 mg SUBLINGUAL Q5M PRN (Reason: Chest Pain) RF: 0 rosuvastatin 10 mg tablet 10 mg PO DAILY@00 RF: 0 fluticasone propion-salmeterol [Advair Diskus] 250-50 mcg/dose blister with device 1 inh inhalation BID@899,2099 RF: 0 metoprolol tartrate 25 mg tablet 12.5 mg PO BID@899,2099 RF: 0 isosorbide mononitrate 30 mg Tablet Extended Release 24 Hr 15 mg PO BID@899 RF: 0 albuterol sulfate 90 mcg/actuation Hfa Aerosol Inhaler 1 inh INHALATION Q6H PRN (Reason: Shortness Of Breath) RF: 0 potassium chloride [Klor-Con 10] 10 mEq tablet extended release 20 meq PO BID@ RF: 0 ferrous gluconate 324 mg (37.5 mg iron) tablet 324 mg PO BID@ RF: 0 sennosides-docusate sodium 8.6-50 mg tablet 2 tab PO BID PRN (Reason: Constipation) RF: 0 pantoprazole 40 mg tablet,delayed release (DR/EC) 40 mg PO BID@899,2099 RF: 0 Changed bumetanide 1 mg tablet 1 mg PO DAILY 30 Days Qty: 30 RF: 0 Discontinued warfarin 2 mg tablet 4 mg PO DAILY@899 RF: 0 heparin lock flush 10 unit/mL Solution 50 unit IV Q8H RF: 0 vancomycin in 0.9 % sodium chl 500 mg/100 mL Piggyback 500 mg IV Q12H RF: 0 Discharge Orders: Discharge Order (Routine); Ordered 03/01/21 Ordered By: Geoff Prince Referrals: Filiberto Coyne MD [Physician] - 4-7 days (COPD exacerbation, trilogy dependent) Surinder Mays MD [Physician] - 4-7 days (NEEDS INR CHECKED IN 1 WEEK) Michael Hampton DO [Primary Care Provider] - Discharge Diet: Cardiac Discharge Activity: Resume usual activity Patient Instructions: Opioid Safety Activity Restrictions/Additional Instructions: -For your Coumadin please take 3 mg of Coumadin Monday, and Monday, 3 mg the rest of the days, recheck INR in 1 week, home INR, have Dr. Valentine follow with INR -INR discharge 3.68 -Please take last dose of Zyvox tonight -For COPD, use albuterol, Advair, Spiriva as prescribed, please be compliant with home trilogy, follow-up with pulmonary -For CHF, Bumex 1 mg daily scheduled, limit fluid intake to less than 1.5 L, follow-up with cardiology Discharge Attestations Time Spent in Discharge Care*: greater than 30 min Status at Discharge: Cognitive status at discharge: cognitively intact, Behavioral status at discharge: cooperative, Quality Metrics Clinical Quality Measures During this hospital stay, did patient experience: None Coding Level of Care Code Acute Chg FW IA note Diagnoses COPD exacerbation J44.1 Gram-positive cocci bacteremia R78.81 Chronic respiratory failure with hypoxia and hypercapnia J96.11; J96.12 Mitral valve replaced Z95.2 Diastolic CHF I50.30
[2021-03-01] MEDS: warfarin 2 mg Tablet PO (13:27)
--- NOTE | 2021-03-01 13:53 | PC.SOCIAL ---
*IMM UPDATE* Gave patient IMM update, provided her copy of page 2. Verbalized understanding. 03/01/21 @ 0995 Initialed, dated, timed and placed in chart.
--- NOTE | 2021-03-01 18:54 | PC.RESP ---
Pulmonary Rehab information sent to patient.
== END 2021-03-01 15:00 | disposition home or self-care (01) | DRG 191 ==
LOC: ER 02-26 02:15 → MEDSURG 02-26 10:22
PROVIDERS: Internal Medicine; Admitting Provider Internal Medicine; Emergency Provider Nurse Practitioner Family; PCP Family Medicine; Visit Provider Family Medicine
DX: J44.1 Chronic obstructive pulmonary disease with (acute) exacerbation (principal); I50.32 Chronic diastolic (congestive) heart failure; J96.10 Chronic respiratory failure, unspecified whether with hypoxia or hypercapnia; R78.81 Bacteremia; E87.3 Alkalosis; G93.49 Other encephalopathy; T82.898A Other specified complication of vascular prosthetic devices, implants and grafts, initial encounter; Y82.8 Other medical devices associated with adverse incidents; I48.91 Unspecified atrial fibrillation; I25.10 Atherosclerotic heart disease of native coronary artery without angina pectoris; I11.0 Hypertensive heart disease with heart failure; E87.6 Hypokalemia; K21.9 Gastro-esophageal reflux disease without esophagitis; G47.33 Obstructive sleep apnea (adult) (pediatric); G20 Parkinson's disease; E03.9 Hypothyroidism, unspecified; D50.9 Iron deficiency anemia, unspecified; F32.9 Major depressive disorder, single episode, unspecified; Z91.19 Patient's noncompliance with other medical treatment and regimen; Z95.828 Presence of other vascular implants and grafts; Z95.2 Presence of prosthetic heart valve; Z79.01 Long term (current) use of anticoagulants; Z82.49 Family history of ischemic heart disease and other diseases of the circulatory system; Z87.891 Personal history of nicotine dependence
CPT/HCPCS: 36415; 36600; 70450; 71045; 80048; 80051; 80053; 80202; 82330; 82803; 82805; 83605; 85025; 85610; 85730; 93005; 94640; 94660; 96365; 99291; G0378; J3370; J7040; J7050

== ENCOUNTER 2021-03-23 10:21 | Inpatient (IN) | payer MEDICARE, MEDICAID, SELFPAY ==
[2021-03-23] VITALS (19 sets, daily range): BP systolic 115–169; BP diastolic 36–79; PULSE 52–108; RESP 12–30; TEMP 36.4–36.9; O2SAT 89–100; BMI 26.4
--- NOTE | 2021-03-23 10:28 | XR_ITS ---
WS: [id number] Exam: XR chest 1V portable [id number] Date/Time of Exam: 03/23/2021 10:33 AM Reason For Exam: Cough Comparison 02/19/2021. Cardiac enlargement unchanged. Signs of previous cardiac valve replacement. Chronic interstitial martinez ges noted throughout both lungs. No consolidated infiltrates or pleural effusions. No pneumothorax. T he mediastinum is not widened. Regional bony structures are intact as visualized. Several old left ri b fractures. XR/XR chest 1V portable [id number] IMPRESSION: 1. Cardiac enlargement unchanged. 2. Extensive chronic interstitial changes throughout both lungs. No acute conso lidating pneumonia identified.
--- NOTE | 2021-03-23 10:29 | ECG_ITS ---
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 Measurements Intervals Wood Rate: 77 P: [place]: QRS: 11 QRSD: 104 T: 3 QT: 429 QTc: 488 Interpretive Statements SUPRAVENTRICULAR RHYTHM Compared to ECG 02/26/2021 04:03:41 Supraventricular rhythm now present Atrial fibrillation no longer present T-wave abnormality no longer present Electronically Signed On 03-24-2021 17:29:04 CDT by Cas Galvez M.D. [email or web address]
--- NOTE | 2021-03-23 10:39 | ED_ITS ---
HPI - SOB/Dyspnea General: Chief Complaint: Shortness of Breath/Dyspnea Stated Complaint: SOB Time Seen by Provider: 03/23/21 10:25 History of Present Illness: HPI Narrative: This patient is a 80-year-old female with a long history of COPD and advanced congestive heart failure presents to the emergency department for worsening shortness of breath. Patient has nurse practitioner from her doctor's office here regularly because heart failure conditions are getting worse. Patient was actually seen yesterday at home. Reading has become an increasing issue. Patient is reluctant to wear trilogy at home due to increased shortness of breath. Patient is on a nasal cannula at this time. Difficult to get a pulse ox reading due to the patient's Parkinson's disease. Patient is awake and does answer questions appropriately. But appears to be tachypneic. Patient does have 3+ edema bilateral lower extremities with discoloration consistent with peripheral vascular disease. Patient does have diminished breath sounds and some rales noted. Patient just yesterday had an increase of her Lasix. Will do medical evaluation treat as needed. MD elicited complaint: shortness of breath Pertinent past history: congestive heart failure Onset (ago): day(s) Timing: constant and progressively worsening Severity: similar to previous episodes Exacerbating factors: lying flat Associated symptoms: Reports orthopnea; Deny abdominal pain, chest pain, extremity pain, fever(s), lightheadedness, nausea, palpitations or vomiting Review of Systems General: Reports: 10 or more systems reviewed and unremarkable except in HPI and below Const: Denies: fever(s), chills, body aches or fatigue Eyes: Denies: change in vision or blurry vision ENMT: Denies: throat pain, hoarseness or mouth pain Card: Reports: irregular heart rhythm and orthopnea; Denies: chest pain, palpitations, edema, swelling of feet/ankles or lightheadedness Resp: Reports: dyspnea; Denies: productive cough, non-productive cough, wheezing or pain on inspiration GI: Denies: abdominal pain, nausea or vomiting : Denies: flank pain, difficulty voiding, dysuria, urinary frequency, urinary urgency or urinary hesitancy Musc: Denies: neck pain, back pain, extremity pain, extremity swelling, joint pain, joint swelling, joint redness, joint warmth or limited range of motion Skin/Breast: Reports: skin swelling; Denies: rash, pruritus, erythema or skin tenderness Neuro: Denies: headache(s), numbness in extremities or weakness in extremities Psych: Denies: anxiety or depression PFSH ED PFSH: Medical History Acute exacerbation of COPD with asthma Afib Anemia -baseline Hg around 9-10 -follow with Dr Bullock CAD (coronary artery disease) Chronic anticoagulation Due to mechanical mitral valve; coumadin Chronic hypercapnic respiratory failure COPD (chronic obstructive pulmonary disease) Depression Diastolic CHF GERD (gastroesophageal reflux disease) PPI HTN (hypertension) Hypothyroidism -continue levothyroxine Iron deficiency anemia Has required transfusion in past, last egd and colonoscopy ~2017 with d iverticulosis and internal hemorrhoids, SONYA (obstructive sleep apnea) Parkinson disease Follows up with Dr. Rainey in [facility]'s ring Weakness Surgical History History of bilateral tubal ligation History of cholecystectomy History of total knee arthroplasty Left Mitral valve replaced Mechanical, on coumadin Family History Mother CAD (coronary artery disease) Diabetes Other Hypertension Social History Smoking and tobacco status: former smoker Quit status (tobacco): has quit using tobacco Year quit tobacco: 1994 - PPD x 15 Years Second hand smoke exposure: No Alcohol intake: never Caregiver/support person: Yes Household members: spouse and children Housing: House Marital status: Current occupational status: retired and disabled History of recent travel: No Current gender identity: Female Physical Exam Const: COMMON NORMALS: average body habitus, patient oriented x3, no limitations, healthy appearing, alert and well nourished GENERAL APPEARANCE: cooperative NUTRITIONAL APPEARANCE: obese ORIENTATION/CONSCIOUSNESS: Yes awake, Yes oriented to person, Yes oriented to place and Yes oriented to time HENMT: COMMON NORMALS: normocephalic, atraumatic, hearing grossly normal bilaterally, external ears normal, EAC's normal, TM's normal bilaterally, Normal external nose present, Normal nasal mucous membranes and turbinates present, moist oral mucous membranes, oropharynx normal, dentition normal and gingiva normal HEAD & SCALP: normocephalic and atraumatic NOSE: Normal external nose present and Normal nasal mucous membranes and turbinates present EXTERNAL EAR: Yes external ears normal EXTERNAL AUDITORY CANAL: EAC's normal TYMPANIC MEMBRANE: TM's normal bilaterally Neck/C-Spine: COMMON NORMALS: full ROM, no lymphadenopathy, supple, no meningeal signs, no JVD, Thyroid normal and No carotid bruits THYROID: Thyroid normal Chest: COMMONS NORMALS: normal inspection of the chest, normal palpation of entire chest wall, normal inspection of the breasts and normal palpation of the breasts Breast/axilla inspection: Yes normal inspection of the breasts BREAST/AXILLA PALPATION: Yes normal palpation of the breasts Resp: COMMON NORMALS: No retractions, No use of accessory muscles and percussion normal EFFORT & INSPECTION: Yes tachypneic and Yes decreased respiratory effort AUSCULTATION: rales and diminished lung sounds PERCUSSION: percussion normal Cardio: COMMON NORMALS: no JVD, regular rate, regular rhythm, S1 normal heart sound present, S2 normal heart sound present, No gallops present (Cardio), No clicks present (Cardio), No murmurs present (Cardio), No rub (Cardio) and Peripheral pulses 2+ throughout RATE: regular rate RHYTHM: regular rhythm HEART SOUNDS: S1 normal heart sound present and S2 normal heart sound present PERIPHERAL PULSES: Peripheral pulses 2+ throughout GI: COMMON NORMALS: Normal to inspection, nondistended, normoactive bowel sounds present, Soft to palpation, non-tender, No hepatosplenomegaly present, no masses and no bruits PALPATION: Yes Soft to palpation and Yes No hepatosplenomegaly present : COMMON NORMALS: Yes no CVA tenderness, Yes normal external appearance, Yes normal appearance of the vagina, Yes normal appearance of the cervix, Yes normal bimanual exam, Yes No adnexal tenderness and Yes no masses BLADDER/KIDNEY EXAM: Yes no CVA tenderness BIMANUAL EXAM - VAGINA & UTERUS: Yes normal bimanual exam Back/Pelvis: COMMON NORMALS: no CVA tenderness, thoracic and lumbar spine normal to inspection, no thoracic nor lumbar tenderness, thoraco-lumbar ROM normal and straight leg raise negative bilaterally Extremity: COMMON NORMALS: normal to inspection, full ROM, capillary refill normal, no joint enlargement, no clubbing, cyanosis or edema and no calf tenderness NARRATIVE EXTREMITY EXAM: Patient does have 3+ bilateral pedal edema with discoloration consistent with peripheral vascular disease. Neuro: COMMON NORMALS: patient oriented x3 SENSORIUM/ORIENTATION: Yes alert, Yes oriented to person, Yes oriented to place and Yes oriented to time MENINGEAL SIGNS: Yes no meningeal signs Course Reevaluation(s): Reevaluation #1: Patient is much improved. It does not appear to be a CHF exacerbation or more COPD exacerbation with respiratory failure. Patient is stable on BiPAP pulse ox is up to 100% patient is calm and resting at this time. Patient will be admitted to the floor Time: 12:55 Consultations: Consultation #1: I did discuss at length with Dr. Arielle duvall. He is agreed to admit this patient to the hospital for cardiac stepdown for COPD exacerbation respiratory failure. Patient will be given dose of Rocephin upon admission to the cardiac stepdown per his request. Time: 12:56 Vital Signs: Vital signs: Vital Signs Temperature 98.3 F 03/23/21 10:22 Pulse Rate 78 03/23/21 11:19 Respiratory Rate 17 03/23/21 10:47 Blood Pressure 126/43 03/23/21 10:22 Pulse Oximetry 98 03/23/21 11:19 MDM - SOB/Dyspnea MDM Narrative: Medical decision making narrative: This patient is a 80-year-old female with a long history of COPD and advanced congestive heart failure presents to the emergency department for worsening shortness of breath. Patient has nurse practitioner from her doctor's office here regularly because heart failure conditions are getting worse. Patient was actually seen yesterday at home. Reading has become an increasing issue. Patient is reluctant to wear trilogy at home due to increased shortness of breath. Patient is on a nasal cannula at this time. Difficult to get a pulse ox reading due to the patient's Parkinson's disease. Patient is awake and does answer questions appropriately. But appears to be tachypneic. Patient does have 3+ edema bilateral lower extremities with discoloration consistent with peripheral vascular disease. Patient does have diminished breath sounds and some rales noted. Patient just yesterday had an increase of her Lasix. I did discuss at length with Dr. Arielle lynnist. He is agreed to admit this patient to the hospital for cardiac stepdown for COPD exacerbation respiratory failure. Patient will be given dose of Rocephin upon admission to the cardiac stepdown per his request. Medical Records: Attestation: I reviewed the patient's medical records. Lab Data: Attestation: I reviewed the patient's lab results. Labs: Lab Results 03/23/21 03/23/21 03/23/21 Range/Units 10:41 10:41 10:41 WBC 3.7 L (4.0-10.0) 10^3/ uL RBC 3.66 L (4.1-5.3) 10^6/u L Hgb 10.4 L (11.5-15.3) g/dL Hct 35.4 L (37.0-47.0) % MCV 96.7 (81-99) fL MCH 28.4 (28.0-34.0) pg MCHC 29.4 L (30.0-36.0) g/dL RDW 15.4 H (12.1-15.1) % Plt Count 89 L (130-400) 10^3/c mm MPV 10.3 (7.4-10.4) fL Neut % (Auto) 67.5 % Lymph % (Auto) 19.4 % [place] % (Auto) 10.4 % Eos % (Auto) 2.2 % Baso % (Auto) 0.5 % Neut # (Auto) 2.47 (1.8-7.7) 10^3/u L Lymph # (Auto) 0.7 L (0.8-4.8) 10^3/u L [place] # (Auto) 0.4 (0.2-0.9) 10^3/u L Eos # (Auto) 0.1 (0.0-0.8) 10^3/u L Baso # (Auto) 0.0 (0.0-0.1) 10^3/u L Nucleated RBC % (a uto) 0 % Nucleated RBCs # 0.0 /100WBC PT (12.1-14.9) SECO NDS INR (0.8-1.2) APTT (23.9-36.7) SECO NDS Specimen Type Sample Site ABG pH (7.35-7.45) ABG pCO2 (35-45) mmHg ABG pO2 (80.0-100.0) mmH g ABG HCO3 (22-26) mmol/L ABG O2 Saturation ABG Base Excess (-2.0-2.0) mmol/ L César Test A-a O2 Gradient Hematocrit (37-47) % Hgb O2 Saturation (95-100) % Carboxyhemoglobin (0.4-20.1) %THgb Methemoglobin (0.4-1.5) % Total Hemoglobin (12-16) g/dL Ionized Calcium (1.1-1.4) mmol/L O2 Delivery Device FiO2 % Case Management Rn ID Sodium 147 H (136-145) mmol/L Potassium 4.0 (3.5-5.1) mmol/L Chloride 102 (98-107) mmol/L Carbon Dioxide 39 H (22-29) mmol/L Anion Gap 10.0 (5-19) BUN 18 (8-23) mg/dL Creatinine 0.6 (0.5-0.9) mg/dL GFR Calculation Not Reportable Glucose 92 (65-115) mg/dL Calculated Osmolal ity 306 H (285-295) mOsm/k g Lactic Acid 0.6 (0.5-2.2) mmol/L Calcium 7.8 L (8.5-10.5) mg/dL Total Bilirubin 0.7 (0.15-1.2) mg/dL AST 11 (0-32) U/L ALT 6 (0-33) U/L Alkaline Phosphata se 131 H (35-105) IU/L Troponin T Baselin e (0-10) ng/L NT-Pro-B Natriuret Pep 731 H (0-450) pg/mL Total Protein 0.7 L (6.6-8.7) g/dL Albumin 3.9 (3.5-5.2) g/dL Globulin 2.8 (1.3-4.6) g/dL Urine Color (Yellow) Urine Appearance (CLEAR) Urine pH (5-7) Ur Specific Gravit y (1.005-1.030) Urine Protein (Negative) Urine Glucose (UA) (Normal) Urine Ketones (Negative) Urine Blood (Negative) Urine Nitrate (Negative) Urine Bilirubin (Negative) Urine Urobilinogen (Negative) mg/dL Ur Leukocyte Carlyn ase (Negative) Amorphous Sediment SARS-CoV-2 Ag (Rap id) (Negative) 03/23/21 03/23/21 03/23/21 Range/Units 10:41 10:46 11:10 WBC (4.0-10.0) 10^3/ uL RBC (4.1-5.3) 10^6/u L Hgb (11.5-15.3) g/dL Hct (37.0-47.0) % MCV (81-99) fL MCH (28.0-34.0) pg MCHC (30.0-36.0) g/dL RDW (12.1-15.1) % Plt Count (130-400) 10^3/c mm MPV (7.4-10.4) fL Neut % (Auto) % Lymph % (Auto) % [place] % (Auto) % Eos % (Auto) % Baso % (Auto) % Neut # (Auto) (1.8-7.7) 10^3/u L Lymph # (Auto) (0.8-4.8) 10^3/u L [place] # (Auto) (0.2-0.9) 10^3/u L Eos # (Auto) (0.0-0.8) 10^3/u L Baso # (Auto) (0.0-0.1) 10^3/u L Nucleated RBC % (a uto) % Nucleated RBCs # /100WBC PT (12.1-14.9) SECO NDS INR (0.8-1.2) APTT (23.9-36.7) SECO NDS Specimen Type Arterial Sample Site Radial, left ABG pH 7.33 L (7.35-7.45) ABG pCO2 77.0 H* (35-45) mmHg ABG pO2 125.0 H (80.0-100.0) mmH g ABG HCO3 40.3 H (22-26) mmol/L ABG O2 Saturation 99.2 ABG Base Excess 11.9 H (-2.0-2.0) mmol/ L César Test Pos A-a O2 Gradient Not Reportable Hematocrit 31.5 L (37-47) % Hgb O2 Saturation 97.2 (95-100) % Carboxyhemoglobin 1.1 (0.4-20.1) %THgb Methemoglobin 0.9 (0.4-1.5) % Total Hemoglobin 10.3 L (12-16) g/dL Ionized Calcium 1.1 (1.1-1.4) mmol/L O2 Delivery Device Nc FiO2 2.0 % Case Management Rn ID [id number] Sodium 146.0 H (136-145) mmol/L Potassium 3.8 (3.5-5.1) mmol/L Chloride (98-107) mmol/L Carbon Dioxide (22-29) mmol/L Anion Gap (5-19) BUN (8-23) mg/dL Creatinine (0.5-0.9) mg/dL GFR Calculation Glucose 93.0 (65-115) mg/dL Calculated Osmolal ity (285-295) mOsm/k g Lactic Acid (0.5-2.2) mmol/L Calcium (8.5-10.5) mg/dL Total Bilirubin (0.15-1.2) mg/dL AST (0-32) U/L ALT (0-33) U/L Alkaline Phosphata se (35-105) IU/L Troponin T Baselin e 11 H (0-10) ng/L NT-Pro-B Natriuret Pep (0-450) pg/mL Total Protein (6.6-8.7) g/dL Albumin (3.5-5.2) g/dL Globulin (1.3-4.6) g/dL Urine Color (Yellow) Urine Appearance (CLEAR) Urine pH (5-7) Ur Specific Gravit y (1.005-1.030) Urine Protein (Negative) Urine Glucose (UA) (Normal) Urine Ketones (Negative) Urine Blood (Negative) Urine Nitrate (Negative) Urine Bilirubin (Negative) Urine Urobilinogen (Negative) mg/dL Ur Leukocyte Carlyn ase (Negative) Amorphous Sediment SARS-CoV-2 Ag (Rap id) Negative (Negative) 03/23/21 03/23/21 Range/Units 11:37 12:05 WBC (4.0-10.0) 10^3/ uL RBC (4.1-5.3) 10^6/u L Hgb (11.5-15.3) g/dL Hct (37.0-47.0) % MCV (81-99) fL MCH (28.0-34.0) pg MCHC (30.0-36.0) g/dL RDW (12.1-15.1) % Plt Count (130-400) 10^3/c mm MPV (7.4-10.4) fL Neut % (Auto) % Lymph % (Auto) % [place] % (Auto) % Eos % (Auto) % Baso % (Auto) % Neut # (Auto) (1.8-7.7) 10^3/u L Lymph # (Auto) (0.8-4.8) 10^3/u L [place] # (Auto) (0.2-0.9) 10^3/u L Eos # (Auto) (0.0-0.8) 10^3/u L Baso # (Auto) (0.0-0.1) 10^3/u L Nucleated RBC % (a uto) % Nucleated RBCs # /100WBC PT 29.90 H (12.1-14.9) SECO NDS INR 2.79 H (0.8-1.2) APTT 44.5 H (23.9-36.7) SECO NDS Specimen Type Sample Site ABG pH (7.35-7.45) ABG pCO2 (35-45) mmHg ABG pO2 (80.0-100.0) mmH g ABG HCO3 (22-26) mmol/L ABG O2 Saturation ABG Base Excess (-2.0-2.0) mmol/ L César Test A-a O2 Gradient Hematocrit (37-47) % Hgb O2 Saturation (95-100) % Carboxyhemoglobin (0.4-20.1) %THgb Methemoglobin (0.4-1.5) % Total Hemoglobin (12-16) g/dL Ionized Calcium (1.1-1.4) mmol/L O2 Delivery Device FiO2 % Case Management Rn ID Sodium (136-145) mmol/L Potassium (3.5-5.1) mmol/L Chloride (98-107) mmol/L Carbon Dioxide (22-29) mmol/L Anion Gap (5-19) BUN (8-23) mg/dL Creatinine (0.5-0.9) mg/dL GFR Calculation Glucose (65-115) mg/dL Calculated Osmolal ity (285-295) mOsm/k g Lactic Acid (0.5-2.2) mmol/L Calcium (8.5-10.5) mg/dL Total Bilirubin (0.15-1.2) mg/dL AST (0-32) U/L ALT (0-33) U/L Alkaline Phosphata se (35-105) IU/L Troponin T Baselin e (0-10) ng/L NT-Pro-B Natriuret Pep (0-450) pg/mL Total Protein (6.6-8.7) g/dL Albumin (3.5-5.2) g/dL Globulin (1.3-4.6) g/dL Urine Color Yellow (Yellow) Urine Appearance Clear (CLEAR) Urine pH 7 (5-7) Ur Specific Gravit y 1.005 (1.005-1.030) Urine Protein Neg (Negative) Urine Glucose (UA) Norm (Normal) Urine Ketones Negative (Negative) Urine Blood 2+ H (Negative) Urine Nitrate Negative (Negative) Urine Bilirubin Neg (Negative) Urine Urobilinogen Norm (Negative) mg/dL Ur Leukocyte Carlyn ase Negative (Negative) Amorphous Sediment Not Reportable SARS-CoV-2 Ag (Rap id) (Negative) Imaging Data^: CXR: Attestation: I personally reviewed and interpreted this imaging study as follows: Radiologist's impression: Cardiac enlargement unchanged. Signs of previous cardiac valve replacement. Chronic interstitial changes noted throughout both lungs. No consolidated infiltrates or pleural effusions. No pneumothorax. The mediastinum is not widened. Regional bony structures are intact as visualized. Several old left rib fractures. XR/XR chest 1V portable [id number] IMPRESSION: 1. Cardiac enlargement unchanged. 2. Extensive chronic interstitial changes throughout both lungs. No acute consolidating pneumonia identified. EKG Data^: EKG 1: Attestation: I personally reviewed and interpreted this EKG as follows: EKG Interpretation Date: 03/23/21 EKG interpretation time: 11:08 Prior EKG tracings: available for review Interpretation: Sinus rhythm heart rate 77 motion artifact related to Parkinson's disease ABG Data^: ABG Interpretation 1: ABG results: pH 7.32. PCO2 77 PO2 125 Attestation: I personally reviewed and interpreted this ABG as follows: Interpretation: Appears to be respiratory acidosis with compensated metabolic alkalosis. Discharge Plan Discharge Patient Disposition: Admitted As Inpatient Clinical Impression: Breath, shortness, Acute and chronic respiratory failure with hypoxia, CHF (congestive heart failure), Pulmonary hypertension Condition: Stable Prescriptions: No Action fluoxetine 10 mg capsule 10 mg PO DAILY@09 RF: 0 carbidopa-levodopa 10-100 mg tablet,disintegrating 1 tab PO TID@ RF: 0 levothyroxine 50 mcg capsule 50 mcg PO DAILY@ RF: 0 tolterodine 2 mg tablet 2 mg PO BID@ RF: 0 warfarin 2.5 mg tablet 2.5 mg PO DIRECTED RF: 0 tramadol 50 mg Tablet 50 mg PO Q6H PRN (Reason: Pain) RF: 0 cholecalciferol (vitamin D3) [Vitamin D3] 25 mcg (1,000 unit) Capsule 25 mcg PO DAILY@899 Qty: 0 RF: 0 polyethylene glycol 3350 [Miralax] 17 gram Powder In Packet 17 g PO DAILY@899 RF: 0 nitroglycerin 0.4 mg Tablet, Sublingual 0.4 mg SUBLINGUAL Q5M PRN (Reason: Chest Pain) RF: 0 rosuvastatin 10 mg tablet 10 mg PO DAILY@899 RF: 0 fluticasone propion-salmeterol [Advair Diskus] 250-50 mcg/dose blister with device 1 inh inhalation BID@899,2099 RF: 0 metoprolol tartrate 25 mg tablet 12.5 mg PO BID@899,2099 RF: 0 isosorbide mononitrate 30 mg Tablet Extended Release 24 Hr 15 mg PO BID@899,2099 RF: 0 albuterol sulfate 90 mcg/actuation Hfa Aerosol Inhaler 1 inh INHALATION Q6H PRN (Reason: Shortness Of Breath) RF: 0 warfarin [Jantoven] 3 mg Tablet 3 mg PO SuTuWeThSa@1400 30 Days Qty: 30 RF: 0 warfarin 2 mg Tablet 2 mg PO MoFr@1400 30 Days Qty: 30 RF: 0 nystatin [Nystop] 100,000 unit/gram Powder 1 applic topical BID PRN (Reason: rash) Qty: 60 RF: 0 Spiriva Respimat 1.25 mcg/actuation mist 2 inh inhalation Q24H Qty: 4 RF: 0 bumetanide 1 mg tablet 1 mg PO BID RF: 0 potassium chloride [Klor-Con 10] 10 mEq tablet extended release 20 meq PO BID@ RF: 0 ferrous gluconate 324 mg (37.5 mg iron) tablet 324 mg PO BID@ RF: 0 sennosides-docusate sodium 8.6-50 mg tablet 2 tab PO BID PRN (Reason: Constipation) RF: 0 pantoprazole 40 mg tablet,delayed release (DR/EC) 40 mg PO BID@00,2099 RF: 0 Referrals: Michael Hampton, [Primary Care Provider] - Coding Level of Care Code ED Customer Service Teller for Chg Fwd Exam Comprehensive
[2021-03-23] MEDS: ipratropium-albuterol 3 mL Neb INHALATION ×2 (10:47→20:37)
[2021-03-23 10:52] LABS: Basophils % 0.5 %; Eosinophils # 0.1 10^3/uL (0.0-0.8); Eosinophils % 2.2 %; Hematocrit 35.4 % (37.0-47.0); Hemoglobin 10.4 g/dL (11.5-15.3); Lymphocytes # 0.7 10^3/uL (0.8-4.8); Lymphocytes % 19.4 %; Mean Corpuscular HGB Conc 29.4 g/dL (30.0-36.0); Mean Corpuscular Hemoglobin 28.4 pg (28.0-34.0); Mean Corpuscular Volume 96.7 fL (81-99); Mean Platelet Volume 10.3 fL (7.4-10.4); Monocytes # 0.4 10^3/uL (0.2-0.9); Monocytes % 10.4 %; Neutrophils # 2.47 10^3/uL (1.8-7.7); Neutrophils % 67.5 %; Nucleated Red Blood Cells % 0 %; Platelet Count 89 10^3/cmm (130-400); Red Blood Count 3.66 10^6/uL (4.1-5.3); Red Cell Distribution Width 15.4 % (12.1-15.1); White Blood Count 3.7 10^3/uL (4.0-10.0)
[2021-03-23 10:58] LABS: ABG PH Result 7.33 (7.35-7.45); Arterial Blood Gas Hematocrit 31.5 % (37-47); Base Excess ABG 11.9 mmol/L (-2.0-2.0); Blood Gas Allen Test Pos; Blood Gas Sample Site Radial, left; Blood Gas Sample Type Arterial; Carboxyhemoglobin 1.1 %THgb (0.4-20.1); HCO3 ABG 40.3 mmol/L (22-26); HGB O2 Sat 97.2 % (95-100); Ionized Calcium Level - ABG 1.1 mmol/L (1.1-1.4); Methemoglobin 0.9 % (0.4-1.5); Oxygen Device NC; Oxygen Saturation ABG 99.2; Potassium Level - ABG 3.8 mmol/L (3.5-5.0); Total Hemoglobin 10.3 g/dL (12-16)
[2021-03-23 11:12] LABS: Lactic Sepsis W/Reflex 0.6 mmol/L (0.5-2.2)
[2021-03-23 11:16] LABS: Troponin(5th) Baseline 11 ng/L (0-10)
[2021-03-23] MEDS: FUROsemide 10 mg/mL SDV 10mL 80 MG IVP (11:48)
[2021-03-23 12:00] LABS: Alanine Aminotransferase 6 U/L (0-33); Albumin Level 3.9 g/dL (3.5-5.2); Aspartate Amino Transferase 11 U/L (0-32); Blood Urea Nitrogen 18 mg/dL (8-23); Glucose 92 mg/dL (65-115); Total Bilirubin 0.7 mg/dL (0.15-1.2)
[2021-03-23 12:10] LABS: INR 2.79 (0.8-1.2)
[2021-03-23 12:11] LABS: Partial Thromboplastin Time 44.5 SECONDS (23.9-36.7)
[2021-03-23 12:12] LABS: SARS Covid-2 Antigen Negative (Negative)
--- NOTE | 2021-03-23 12:29 | ECG_ITS ---
[facility] Test Date: 2021-03-23 Pat Name: Iris Garcia Department: Room: Gender: Female Product Architect: : 1940 Requested By: Dajuan Ochoa Order Number: [id number] Krupa MD: Cas Galvez M.D. Measurements Intervals [place] Rate: 58 P: [place]: QRS: 32 QRSD: 110 T: 25 QT: 463 QTc: 455 Interpretive Statements SUPRAVENTRICULAR BRADYCARDIA Compared to ECG 03/23/2021 11:08:13 Supraventricular rhythm no longer present Electronically Signed On 03-24-2021 17:42:22 CDT by Cas Galvez M.D. [id number]
[2021-03-23 12:45] LABS: Chloride 102 mmol/L (98-107); Osmolality Calculated 306 mOsm/kg (285-295); Sodium 147 mmol/L (136-145)
[2021-03-23 12:46] LABS: Carbon Dioxide 39 mmol/L (22-29)
[2021-03-23 12:46] LABS: Add Urine Microscopic? YES; Bilirubin Urine Neg (Negative); Blood Urine 2+ (Negative); Glucose Urine UA Norm (Normal); Ketones Urine Negative (Negative); Leukocyte Esterase Urine Negative (Negative); Nitrate Urine Negative (Negative); Protein Urine Neg (Negative); Specific Gravity, Urine 1.005 (1.005-1.030); Urine Appearance Clear (CLEAR); Urine Color Yellow (Yellow); Urobilinogen Urine Norm (Negative); pH Urine 7 (5-7)
[2021-03-23 12:47] LABS: Calcium 7.8 mg/dL (8.5-10.5); NT Pro B Type Natriuretic Pept 731 pg/mL (0-450); Total Protein 0.7 g/dL (6.6-8.7)
[2021-03-23 12:48] LABS: Alkaline Phosphatase 131 IU/L (35-105); Globulin 2.8 g/dL (1.3-4.6)
[2021-03-23 13:00] LABS: Add Urine Culture? No; Bacteria Urine TRACE /hpf; Squamous Epithelial Cell Urine 0-4 /hpf (0-5)
[2021-03-23 13:15] LABS: Troponin 5 2HR 9.32 ng/L (0-10)
[2021-03-23 13:17] LABS: Troponin 5 2HR Delta -1.68 ABS# (0-10)
[2021-03-23 13:19] LABS: ABG PH Result 7.38 (7.35-7.45); Arterial Blood Gas Hematocrit 33.7 % (37-47); Base Excess ABG 14.5 mmol/L (-2.0-2.0); Blood Gas Operator Identificat ED; Blood Gas Sample Site Brachial, left; Blood Gas Sample Type Arterial; Carboxyhemoglobin 1.3 %THgb (0.4-20.1); HCO3 ABG 42.4 mmol/L (22-26); HGB O2 Sat 93.4 % (95-100); Ionized Calcium Level - ABG 1.1 mmol/L (1.1-1.4); Methemoglobin 0.8 % (0.4-1.5); Oxygen Device BIPAP; Oxygen Saturation ABG 95.4; PO2 ABG 75.5 mmHg (80.0-100.0); Potassium Level - ABG 3.4 mmol/L (3.5-5.0)
[2021-03-23 13:20] LABS: ABG PCO2 71.8 mmHg (35-45)
[2021-03-23] MEDS: cefTRIAXone 1,000 MG in sodium chloride 0.9% (plus) 50 ML 100 MG IV (13:25)
--- NOTE | 2021-03-23 16:29 | ECG_ITS ---
[facility] ED Test Date: 2021-03-23 Pat Name: Iris Garcia Department: Room: 277 Gender: Female Systems Analyst: : 1940 Requested By: Dajuan Ochoa Order Number: [id number] Krupa MD: Tere Teixeira M.D. Measurements Intervals [place] Rate: 77 P: -62 [place]: 197 QRS: 25 QRSD: 95 T: 55 QT: 403 QTc: 457 Interpretive Statements POSSIBLE SINUS RHYTHM POSSIBLE LEFT ATRIAL ENLARGEMENT [-0.1mV P WAVE IN V1/V2] ST DEVIATION AND MODERATE T-WAVE ABNORMALITY, CONSIDER LATERAL ISCHEMIA ARTIFACT Compared to ECG 03/23/2021 13:03:42 T-wave abnormality now present Possible ischemia now present Electronically Signed On 03-27-2021 9:56:53 CDT by Tere Teixeira M.D. [id number]
[2021-03-23 17:39] LABS: Troponin 5 6HR 10.65 ng/L (0-10)
[2021-03-23 17:52] LABS: ABG PCO2 58.5 mmHg (35-45); ABG PH Result 7.45 (7.35-7.45); Arterial Blood Gas Hematocrit 33.8 % (37-47); Base Excess ABG 14.2 mmol/L (-2.0-2.0); Blood Gas Allen Test Pos; Blood Gas Sample Type Arterial; HCO3 ABG 40.4 mmol/L (22-26)
[2021-03-23 17:53] LABS: Blood Gas Operator Identificat ED; Blood Gas Sample Site Radial, left; Oxygen Device NC
--- NOTE | 2021-03-23 17:59 | P.HP_ITS ---
Providers/Chief Complaint Admitting Physician: Carla Guzmán MD Primary Care Provider: Michael Hampton DO Chief Complaint: SOB History of Present Illness Iris Garcia is a 80 year old female With past medical history of COPD, CHF, mitral valve replacement who presented to the ER with worsening shortness of breath. Patient uses trilogy at home but does not use it frequently. Patient was noted to be hypercapnic. Placed on BiPAP in the ER. Noted to also have lower extremity edema. Recently seen her primary and had adjusted her Lasix. Denies any fevers, chills, nausea vomiting or diarrhea. Review of Systems General: Reports: 10 or more systems reviewed and unremarkable except in HPI and below Const: Denies: fever(s) or chills Eyes: Denies: change in vision ENMT: Denies: throat pain Card: Denies: chest pain or palpitations Resp: Reports: dyspnea and non-productive cough GI: Denies: abdominal pain or nausea : Denies: flank pain or difficulty voiding Musc: Reports: extremity swelling; Denies: joint pain Skin/Breast: Denies: rash or pruritus Neuro: Denies: headache(s) or numbness in extremities Medications/Allergies Home Medications Medication Instructions Recorded Confirmed Last Taken Type fluoxetine 10 mg capsule 10 mg PO DAILY@ cap 11/06/19 03/23/21 02/12/21 History carbidopa 10 mg-levodopa 100 mg 1 tab PO TID@, tab 03/12/20 03/23/21 02/12/21 History disintegrating tablet tolterodine 2 mg tablet 2 mg PO BID@03/12/20 03/23/21 02/12/21 History levothyroxine 50 mcg capsule 50 mcg PO DAILY@05/21/20 03/23/21 02/26/21 History ferrous gluconate 324 mg PO BID@11/10/20 03/23/21 02/12/21 History potassium chloride [Klor-Con 10] 20 meq PO BID@11/10/20 03/23/21 02/12/21 History sennosides-docusate sodium 2 tab PO BID PRN 11/10/20 03/23/21 Unknown History pantoprazole 40 mg PO BID@0900,2100 12/31/20 03/23/21 02/12/21 History cholecalciferol (vitamin D3) 25 mcg PO DAILY@0900 #0 02/12/21 03/23/21 Unknown History [Vitamin D3] fluticasone propion-salmeterol 1 inh INHALATION BID@0900,2100 02/12/21 03/23/21 02/12/21 History [Advair Diskus] metoprolol tartrate 12.5 mg PO BID@0900,2100 02/12/21 03/23/21 02/12/21 History nitroglycerin 0.4 mg SUBLINGUAL Q5M PRN 02/12/21 03/23/21 Unknown History polyethylene glycol 3350 [Miralax] 17 g PO DAILY@0900 02/12/21 03/23/21 Unknown History rosuvastatin 10 mg PO DAILY@0900 02/12/21 03/23/21 02/12/21 History tramadol 50 mg PO Q6H PRN 02/12/21 03/23/21 Unknown History albuterol sulfate 1 inh INHALATION Q6H PRN 02/26/21 03/23/21 Unknown History isosorbide mononitrate 15 mg PO BID@0900,2100 02/26/21 03/23/21 02/26/21 History nystatin [Nystop] 1 applic TOPICAL BID PRN #60 g 03/01/21 03/23/21 Unknown Rx tiotropium bromide [Spiriva 2 inh INHALATION Q24H #4 g 03/01/21 03/23/21 Unknown Rx Respimat] warfarin 2 mg PO MoFr@1400 30 Days #30 tab 03/01/21 03/23/21 Unknown Rx warfarin [Jantoven] 3 mg PO SuTuWeThSa@1400 30 Days 03/01/21 03/23/21 Unknown Rx #30 tab warfarin 2.5 mg tablet 2.5 mg PO DIRECTED tab 03/12/21 03/23/21 Unknown History bumetanide 1 mg PO BID 03/23/21 03/23/21 Unknown History Allergies Allergy/AdvReac Type Severity Reaction Status Date / Time penicillin G Allergy UNK Verified 12/31/20 08:42 PFSH Acute PFSH: Medical History Acute exacerbation of COPD with asthma Afib Anemia -baseline Hg around 9-10 -follow with Dr Bullock CAD (coronary artery disease) Chronic anticoagulation Due to mechanical mitral valve; coumadin Chronic hypercapnic respiratory failure COPD (chronic obstructive pulmonary disease) Depression Diastolic CHF GERD (gastroesophageal reflux disease) PPI HTN (hypertension) Hypothyroidism -continue levothyroxine Iron deficiency anemia Has required transfusion in past, last egd and colonoscopy ~2017 with diverticulosis and internal hemorrhoids, SONYA (obstructive sleep apnea) Parkinson disease Follows up with Dr. Rainey in [place] Schatzki's ring Weakness Surgical History History of bilateral tubal ligation History of cholecystectomy History of total knee arthroplasty Left Mitral valve replaced Mechanical, on coumadin Family History Mother CAD (coronary artery disease) Diabetes Other Hypertension Social History Smoking and tobacco status: former smoker Quit status (tobacco): has quit using tobacco Year quit tobacco: 1994 - PPD x 15 Years Second hand smoke exposure: No Alcohol intake: never Caregiver/support person: Yes Household members: spouse and children Housing: House Marital status: Current occupational status: retired and disabled History of recent travel: No Current gender identity: Female Vitals/I&O/Wt Last Vital Signs Temp 98.5 F 03/23/21 16:00 Pulse 78 03/23/21 16:00 Resp 18 03/23/21 16:00 BP 155/59 03/23/21 16:00 Pulse Ox 93 03/23/21 17:38 03/23/21 03/23/21 03/23/21 06:59 14:59 22:59 Intake Total 50 / 50 Balance 50 / 50 Weight last 48 hrs Weight 135 lb Physical Exam Const: OTHER: Obese on nasal cannula Resp: COMMON NORMALS: normal respiratory effort and No use of accessory muscles OTHER: Diminished breath sounds Cardio: COMMON NORMALS: no JVD and regular rate GI: COMMON NORMALS: Normal to inspection, nondistended, normoactive bowel sounds present and Soft to palpation Extremity: GENERAL: Yes edema Skin: OTHER: Venous stasis Urinary Catheter Management^: Lam: Cath Placed During This Visit: yes Urinary Catheter Date of Insertion: 03/23/21 Urinary Catheter Time of Insertion: 12:05 Data : 03/23/21 10:41 03/23/21 10:41 A&P Assessment and plan (1) COPD (chronic obstructive pulmonary disease): Status: Acute Qualifiers: COPD type: chronic bronchitis Chronic bronchitis type: unspecified Qualified Code(s): J42 - Unspecified chronic bronchitis (2) Pulmonary hypertension: Status: Acute (3) CHF (congestive heart failure): Status: Acute (4) Afib: Status: Acute Qualifiers: Atrial fibrillation type: longstanding persistent Qualified Code(s): I48.11 - Longstanding persistent atrial fibrillation (5) Chronic anticoagulation: Status: Acute Additional A&P Information 80-year-old female with past medical history of mitral valve replacement on Coumadin, A. fib, CHF, COPD presents with worsening shortness of breath. 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
[2021-03-23 18:02] LABS: Troponin 5 6HR Delta -0.35 ng/L (0-12)
[2021-03-23] MEDS: bumetanide 1 mg Tablet PO (19:11)
--- NOTE | 2021-03-23 19:13 | PC.NURSE ---
Report to Xiomara RASCON at this time.
[2021-03-23] MEDS: metoprolol tartrate 25 mg Tablet 12.5 MG PO (21:19)
[2021-03-24] VITALS (18 sets, daily range): BP systolic 121–162; BP diastolic 52–73; PULSE 63–84; RESP 12–20; TEMP 36.4–37.2; O2SAT 94–100
[2021-03-24] MEDS: ipratropium-albuterol 3 mL Neb INHALATION ×4 (03:22→22:03)
--- NOTE | 2021-03-24 05:15 | PC.NURSE ---
Shift summary Patient has had a good night. Slept through the night and has had no complaints of pain during this shift.
[2021-03-24 06:35] LABS: Basophils % 0.5 %; Hematocrit 34.5 % (37.0-47.0); Hemoglobin 10.4 g/dL (11.5-15.3); Lymphocytes # 0.4 10^3/uL (0.8-4.8); Lymphocytes % 18.9 %; Mean Corpuscular HGB Conc 30.1 g/dL (30.0-36.0); Mean Corpuscular Hemoglobin 28.2 pg (28.0-34.0); Mean Corpuscular Volume 93.5 fL (81-99); Mean Platelet Volume 10.4 fL (7.4-10.4); Monocytes % 1.9 %; Neutrophils # 1.61 10^3/uL (1.8-7.7); Neutrophils % 78.2 %; Nucleated Red Blood Cells % 0 %; Platelet Count 91 10^3/cmm (130-400); Red Blood Count 3.69 10^6/uL (4.1-5.3); White Blood Count 2.1 10^3/uL (4.0-10.0)
[2021-03-24 06:47] LABS: INR 2.97 (0.8-1.2)
[2021-03-24 06:54] LABS: Alanine Aminotransferase 6 U/L (0-33); Albumin Level 3.8 g/dL (3.5-5.2); Alkaline Phosphatase 130 IU/L (35-105); Anion Gap 10.3 (5-19); Aspartate Amino Transferase 11 U/L (0-32); Blood Urea Nitrogen 19 mg/dL (8-23); Calcium 8.1 mg/dL (8.5-10.5); Carbon Dioxide 38 mmol/L (22-29); Chloride 102 mmol/L (98-107); Globulin 2.3 g/dL (1.3-4.6); Glucose 159 mg/dL (65-115); Magnesium 2.2 mg/dL (1.7-2.3); Osmolality Calculated 310 mOsm/kg (285-295); Potassium 3.3 mmol/L (3.5-5.1); Sodium 147 mmol/L (136-145); Total Bilirubin 0.7 mg/dL (0.15-1.2); Total Protein 6.1 g/dL (6.6-8.7)
[2021-03-24] MEDS: levothyroxine 50 mcg Tablet PO (09:06)
[2021-03-24] MEDS: bumetanide 1 mg Tablet PO ×2 (09:06→16:54)
[2021-03-24] MEDS: metoprolol tartrate 25 mg Tablet 12.5 MG PO ×2 (09:06→20:44)
[2021-03-24] MEDS: potassium chloride ER 20 mEq Tablet 40 MEQ PO (09:09)
--- NOTE | 2021-03-24 10:13 | PC.CHAP ---
Pastoral Care Encounter/Spiritual Assessment Type of Contact [] Declined nuclear control operator visit [] Patient/Family/Request visit [] Outpatient visit [] Follow-up visit [] Physician referral [] Code/Alert [x] Routine visit [] Staff referral [] Actively dying [] Patient sleeping [] Family support [] [] Out of room [] Palliative care [] [x] Receiving care in room [] Pre-surgical visit [] Trauma [] Long length of stay [] ICU visit [] Other: Relational/Emotional Strength [] Patient feels connected with others/family/visitors/staff [] Distress [] Loneliness/isolation [] Abandonment Spirituality of Patient [] Person of Vivian [] Attends Sikh of their Vivian [] Believes in Prayer [] Reads Bible or Gnosticist materials [] There are Spiritual issues to be addressed [employer] Interventions [] Prayer [] Active listening [] Non-anxious presence [] Spiritual/emotional support [] Crisis/trauma care [] Spiritual counseling [] Bereavement support [] Provided bereavement packet [] Provided Bible/devotional materials [] Provided toy/stuffed animal, coloring book to patient or family member [] Provided Communion [] Anointing/[place] [] Salvation [] Completed spiritual assessment [] Other: Impact on Illness or Injury [] Angry [] Fearful [] Anxious [] Often cries [] Exhaustion [] Unable to work [] Unable to attend sabianist [] Unable to walk/stand [] Unable to read [] Unable to drive [] Unable to eat/drink [] Unable to sleep [] Unable to be with family [] Patient intubated [] Other: Summary Time spent with patient
[2021-03-24] MEDS: cefTRIAXone 1,000 MG in sodium chloride 0.9% (plus) 50 ML 100 MG IV (11:30)
[2021-03-24] MEDS: warfarin 3 mg Tablet PO (15:44)
--- NOTE | 2021-03-24 16:09 | P.PN_ITS ---
Subjective Subjective: Interval history: 80 year old female with past medical history of COPD, CHF, mitral valve replacement who presented to the ER with worsening shortness of breath. sats stable on 2L nasal canula feels better denies chest pain, headache, or dizziness Medications: Reviewed: Yes Vitals/I&O/Wt Last Vital Signs Temp 98.9 F 03/24/21 15:21 Pulse 84 03/24/21 15:21 Resp 14 03/24/21 15:21 BP 130/53 03/24/21 15:21 Pulse Ox 99 03/24/21 15:21 03/24/21 03/24/21 03/24/21 06:59 14:59 22:59 Intake Total 0 / 523 530 / 530 Output Total 450 / 850 Balance -450 / -327 530 / 530 Weight last 48 hrs Weight 135 lb Physical Exam Const: COMMON NORMALS: no acute distress and patient oriented x3 Neck/C-Spine: COMMON NORMALS: no JVD Resp: COMMON NORMALS: normal respiratory effort and No retractions Cardio: COMMON NORMALS: no JVD and regular rate RATE: regular rate GI: COMMON NORMALS: Normal to inspection, nondistended, normoactive bowel sounds present, Soft to palpation and non-tender PALPATION: Yes Soft to palpation Neuro: COMMON NORMALS: patient oriented x3 and CN's II-XII intact bilaterally Urinary Catheter Management^: Lam: Cath Placed During This Visit: yes Reason for Continuing Indwelling Catheter: Accurate Measurement of Urinary Output in Critically Ill Patients Urinary Catheter Date of Insertion: 03/23/21 Urinary Catheter Time of Insertion: 12:05 Data : 03/24/21 05:45 03/24/21 05:45 A&P Assessment and plan (1) Leukopenia: Status: Acute (2) COPD (chronic obstructive pulmonary disease): Status: Acute Qualifiers: COPD type: chronic bronchitis Chronic bronchitis type: unspecified Qualified Code(s): J42 - Unspecified chronic bronchitis (3) Physical deconditioning: Status: Acute Additional A&P Information Acute hypercapnic respiratory failure COPD --improved --continue steroids, abx, nebs Congestive heart failure Chronic anticoagulation --coumadin Mitral valve replacement, -coumadin Atrial fibrillation --metoprolol and coumadin Parkinson's --stable, carbidopa levodopa Hypothyroidism --levothyroxine weakness --PT consult leukopenia --recheck cbc in am dispo: home soon, with home health. 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
[2021-03-25] VITALS (12 sets, daily range): BP systolic 144–176; BP diastolic 53–81; PULSE 62–98; RESP 17–24; TEMP 36.6–37; O2SAT 95–100
[2021-03-25] MEDS: ipratropium-albuterol 3 mL Neb INHALATION ×2 (03:33→08:57)
--- NOTE | 2021-03-25 05:40 | PC.NURSE ---
Shift Summary Patient had a good night. Did well being on bipap and no complaints of pain.
[2021-03-25 06:40] LABS: Basophils % 0.3 %; Hematocrit 36.3 % (37.0-47.0); Hemoglobin 10.8 g/dL (11.5-15.3); Lymphocytes # 0.4 10^3/uL (0.8-4.8); Lymphocytes % 9.8 %; Mean Corpuscular HGB Conc 29.8 g/dL (30.0-36.0); Mean Corpuscular Hemoglobin 28.5 pg (28.0-34.0); Mean Corpuscular Volume 95.8 fL (81-99); Mean Platelet Volume 10.8 fL (7.4-10.4); Monocytes # 0.1 10^3/uL (0.2-0.9); Neutrophils # 3.17 10^3/uL (1.8-7.7); Neutrophils % 86.4 %; Nucleated Red Blood Cells % 0 %; Platelet Count 97 10^3/cmm (130-400); Red Blood Count 3.79 10^6/uL (4.1-5.3); Red Cell Distribution Width 15.5 % (12.1-15.1); White Blood Count 3.7 10^3/uL (4.0-10.0)
[2021-03-25 06:48] LABS: INR 2.97 (0.8-1.2)
[2021-03-25 07:02] LABS: Alanine Aminotransferase < 5 U/L (0-33); Alkaline Phosphatase 119 IU/L (35-105); Anion Gap 9.9 (5-19); Aspartate Amino Transferase 11 U/L (0-32); Blood Urea Nitrogen 21 mg/dL (8-23); Calcium 8.2 mg/dL (8.5-10.5); Carbon Dioxide 38 mmol/L (22-29); Chloride 100 mmol/L (98-107); Globulin 2.3 g/dL (1.3-4.6); Glucose 144 mg/dL (65-115); Magnesium 2.3 mg/dL (1.7-2.3); Osmolality Calculated 304 mOsm/kg (285-295); Potassium 3.9 mmol/L (3.5-5.1); Sodium 144 mmol/L (136-145); Total Bilirubin 0.5 mg/dL (0.15-1.2); Total Protein 6.3 g/dL (6.6-8.7)
[2021-03-25] MEDS: levothyroxine 50 mcg Tablet PO (07:52)
[2021-03-25] MEDS: metoprolol tartrate 25 mg Tablet 12.5 MG PO (07:52)
[2021-03-25] MEDS: bumetanide 1 mg Tablet PO (07:53)
--- NOTE | 2021-03-25 12:19 | P.DS_ITS ---
Discharge Providers Date of Admission: 03/23/21 12:57 Date of Discharge: March 25, 2021 Attending Provider at Admission: Carla Guzmán MD Attending Provider at Discharge: Geoff Prince MD Primary Care Provider: Michael Hampton DO Diagnoses at Discharge Discharge Diagnosis (1) Leukopenia: Status: Acute (2) COPD (chronic obstructive pulmonary disease): Status: Acute Qualifiers: COPD type: chronic bronchitis Chronic bronchitis type: unspecified Qualified Code(s): J42 - Unspecified chronic bronchitis (3) Physical deconditioning: Status: Acute Reason for Visit Reason for Visit: SOB Hospital Course Hospital Course This is a 80-year-old female with a past medical history of atrial fibrillation, history of mechanical mitral valve, on chronic Coumadin, history of diastolic CHF, history of anemia, COPD that is trilogy dependent, history of recurrent admissions for acute respiratory failure, recent history of gram- positive bacteremia treated with 2 weeks of IV vancomycin, who presents to [facility] for shortness of breath Patient was admitted to [facility] for acute on chronic hypercapnic respiratory failure secondary to COPD, CHF, admit to the general medical floors, received BiPAP therapy, clinically improved. Likely secondary to noncompliance with trilogy machine, she tells me that the clips on her trilogy mask do not work at times, and she does not know how to work them at times, will have [employer] go to her home. I have discharged her on prednisone burst, with doxycycline, with follow-up with pulmonary as outpatient. INR on discharge 2.97, continue home Coumadin, recheck INR in 1 week. Physical Exam Const: COMMON NORMALS: no acute distress ORIENTATION/CONSCIOUSNESS: Yes awake, Yes oriented to person and Yes oriented to place Resp: COMMON NORMALS: normal respiratory effort and clear to auscultation bilaterally AUSCULTATION: clear to auscultation bilaterally Cardio: COMMON NORMALS: regular rate, regular rhythm, S1 normal heart sound present and S2 normal heart sound present RATE: regular rate RHYTHM: regular rhythm HEART SOUNDS: S1 normal heart sound present and S2 normal heart sound present GI: COMMON NORMALS: Normal to inspection, nondistended, normoactive bowel sounds present, Soft to palpation and non-tender PALPATION: Yes Soft to palpation Extremity: COMMON NORMALS: normal to inspection and no pedal edema Neuro: SENSORIUM/ORIENTATION: Yes oriented to person and Yes oriented to place Urinary Catheter Management^: Lam: Cath Placed During This Visit: yes Reason for Continuing Indwelling Catheter: Acute Urinary Retention or Obstruction Urinary Catheter Date of Insertion: 03/23/21 Urinary Catheter Time of Insertion: 12:05 Discharge Data Data Completed and Pending: Completed Studies During Hospitalization Category Date Time Status XR chest 1V mary ble [id number] Stat Exams 03/23/21 10:28 Completed Pending at discharge Category Date Time Status Complete Blood Co unt w/Auto AM LABS Lab 03/26/21 04:00 Ordered Comprehensive Met abolic Panel AM LA BS Lab 03/26/21 04:00 Ordered Magnesium AM LABS Lab 03/26/21 04:00 Ordered Prothrombin Time INR AM LABS Lab 03/26/21 04:00 Ordered Labs from last 24 hours 03/25/21 03/25/21 03/25/21 05:33 05:33 05:33 WBC 3.7 L RBC 3.79 L Hgb 10.8 L Hct 36.3 L MCV 95.8 MCH 28.5 MCHC 29.8 L RDW 15.5 H Plt Count 97 L MPV 10.8 H Neut % (Auto) 86.4 Lymph % (Auto) 9.8 [place] % (Auto) 3.0 Eos % (Auto) 0.0 Baso % (Auto) 0.3 Neut # (Auto) 3.17 Lymph # (Auto) 0.4 L [place] # (Auto) 0.1 L Eos # (Auto) 0.0 Baso # (Auto) 0.0 Nucleated RBC % (a uto) 0 Nucleated RBCs # 0.0 PT 31.40 H INR 2.97 H Sodium 144 Potassium 3.9 Chloride 100 Carbon Dioxide 38 H Anion Gap 9.9 BUN 21 Creatinine 0.7 GFR Calculation Not Reportable Glucose 144 H Calculated Osmolal ity 304 H Calcium 8.2 L Magnesium 2.3 Total Bilirubin 0.5 AST 11 ALT < 5 Alkaline Phosphata se 119 H Total Protein 6.3 L Albumin 4.0 Globulin 2.3 Vitals: Last Vital Signs Temp 98.2 F 03/25/21 11:18 Pulse 83 03/25/21 11:18 Resp 18 03/25/21 11:18 BP 144/53 03/25/21 11:18 Pulse Ox 98 03/25/21 11:18 Discharge Plan Discharge Patient Disposition: Home Condition: Stable Prescriptions: New doxycycline hyclate 100 mg capsule 100 mg PO BID 7 Days Qty: 14 RF: 0 prednisone 20 mg tablet 20 mg PO BID 5 Days Qty: 10 RF: 0 Continued fluoxetine 10 mg capsule 10 mg PO DAILY@09 RF: 0 carbidopa-levodopa 10-100 mg tablet,disintegrating 1 tab PO TID@,, RF: 0 levothyroxine 50 mcg capsule 50 mcg PO DAILY@ RF: 0 tolterodine 2 mg tablet 2 mg PO BID@ RF: 0 tramadol 50 mg Tablet 50 mg PO Q6H PRN (Reason: Pain) RF: 0 cholecalciferol (vitamin D3) [Vitamin D3] 25 mcg (1,000 unit) Capsule 25 mcg PO DAILY@0900 Qty: 0 RF: 0 polyethylene glycol 3350 [Miralax] 17 gram Powder In Packet 17 g PO DAILY@09 RF: 0 nitroglycerin 0.4 mg Tablet, Sublingual 0.4 mg SUBLINGUAL Q5M PRN (Reason: Chest Pain) RF: 0 rosuvastatin 10 mg tablet 10 mg PO DAILY@09 RF: 0 fluticasone propion-salmeterol [Advair Diskus] 250-50 mcg/dose blister with device 1 inh inhalation BID@899,2099 RF: 0 metoprolol tartrate 25 mg tablet 12.5 mg PO BID@899,2099 RF: 0 isosorbide mononitrate 30 mg Tablet Extended Release 24 Hr 15 mg PO BID@899,2099 RF: 0 albuterol sulfate 90 mcg/actuation Hfa Aerosol Inhaler 1 inh INHALATION Q6H PRN (Reason: Shortness Of Breath) RF: 0 warfarin [Jantoven] 3 mg Tablet 3 mg PO SuTuWeThSa@1400 30 Days Qty: 30 RF: 0 warfarin 2 mg Tablet 2 mg PO MoFr@1400 30 Days Qty: 30 RF: 0 nystatin [Nystop] 100,000 unit/gram Powder 1 applic topical BID PRN (Reason: rash) Qty: 60 RF: 0 Spiriva Respimat 1.25 mcg/actuation mist 2 inh inhalation Q24H Qty: 4 RF: 0 bumetanide 1 mg tablet 1 mg PO BID RF: 0 potassium chloride [Klor-Con 10] 10 mEq tablet extended release 20 meq PO BID@ RF: 0 ferrous gluconate 324 mg (37.5 mg iron) tablet 324 mg PO BID@ RF: 0 sennosides-docusate sodium 8.6-50 mg tablet 2 tab PO BID PRN (Reason: Constipation) RF: 0 pantoprazole 40 mg tablet,delayed release (DR/EC) 40 mg PO BID@0900,2100 RF: 0 Discontinued warfarin 2.5 mg tablet 2.5 mg PO DIRECTED RF: 0 Discharge Orders: Discharge Order (Routine); Ordered 03/25/21 Ordered By: Geoff Prince Referrals: Santos Adorno MD [Physician] - 1 week (INR 1 week) Michael Hampton DO [Primary Care Provider] - Brijesh Daigle MD [Physician] - 7-10 days Discharge Diet: As Directed Discharge Activity: Resume usual activity Patient Instructions: Opioid Safety Activity Restrictions/Additional Instructions: -Please use home trilogy machine, as prescribed, follow with pulmonary -Please take steroids and antibiotics prescribed -Follow-up with with cardiology, recheck INR in 1 week Discharge Attestations Time Spent in Discharge Care*: other Status at Discharge: Cognitive status at discharge: cognitively intact , Behavioral status at discharge: cooperative , Quality Metrics Clinical Quality Measures During this hospital stay, did patient experience: None Coding Level of Care Code Acute [facility] [place] note Diagnoses Leukopenia D72.819 COPD (chronic obstructive pulmonary disease) J42 COPD type: chronic bronchitis Chronic bronchitis type: unspecified Physical deconditioning R53.81
[2021-03-25] MEDS: warfarin 3 mg Tablet PO (12:51)
[2021-03-25] MEDS: cefTRIAXone 1,000 MG in sodium chloride 0.9% (plus) 50 ML 100 MG IV (12:52)
--- NOTE | 2021-03-26 15:06 | PC.RESP ---
Pulmonary Rehab information sent to patient.
== END 2021-03-25 14:38 | disposition home health service (06) | DRG 189 ==
LOC: ER 12:57 → MEDSURG 13:47
PROVIDERS: Admitting Provider Internal Medicine; Emergency Provider Emergency Medicine; PCP Family Medicine; Visit Provider Family Medicine
DX: J96.22 Acute and chronic respiratory failure with hypercapnia (principal); J44.1 Chronic obstructive pulmonary disease with (acute) exacerbation; I50.32 Chronic diastolic (congestive) heart failure; I48.11 Longstanding persistent atrial fibrillation; I11.0 Hypertensive heart disease with heart failure; D72.819 Decreased white blood cell count, unspecified; G20 Parkinson's disease; E03.9 Hypothyroidism, unspecified; G47.33 Obstructive sleep apnea (adult) (pediatric); R53.81 Other malaise; Z79.01 Long term (current) use of anticoagulants; Z95.2 Presence of prosthetic heart valve; Z87.891 Personal history of nicotine dependence; Z96.652 Presence of left artificial knee joint; Z82.49 Family history of ischemic heart disease and other diseases of the circulatory system; Z91.19 Patient's noncompliance with other medical treatment and regimen
CPT/HCPCS: 36415; 36600; 51702; 71045; 80051; 80053; 81001; 82330; 82803; 82805; 83605; 83735; 83880; 84484; 85025; 85610; 85730; 87426; 93005; 94640; 94660; 94664; 96365; 96375; 99291; J0696; J1940; J2920; J2930

== ENCOUNTER 2021-06-18 21:22 | Outpatient (CLI) | payer MEDICARE, MEDICAID, SELFPAY ==
[2021-06-19 03:58] LABS: Anion Gap 8.1 (5-19); Blood Urea Nitrogen 15 mg/dL (8-23); Calcium 8.4 mg/dL (8.5-10.5); Chloride 98 mmol/L (98-107); Glucose 75 mg/dL (65-115); Osmolality Calculated 302 mOsm/kg (285-295); Potassium 3.1 mmol/L (3.5-5.1); Sodium 146 mmol/L (136-145)
[2021-06-19 11:26] LABS: Carbon Dioxide 43 mmol/L (22-29)
== END 2021-06-18 21:23 | disposition home or self-care (01) ==
LOC: LAB 21:34
PROVIDERS: PCP Family Medicine; Visit Provider Family Medicine
DX: D64.9 Anemia, unspecified (principal)
CPT/HCPCS: 80048

== ENCOUNTER 2021-06-22 16:18 | Inpatient (IN) | payer MEDICARE, MEDICAID, SELFPAY ==
[2021-06-22 16:18] VITALS: BP 123/38; PULSE 56; RESP 16; TEMP 36.6; O2SAT 100; BMI 25.4
--- NOTE | 2021-06-22 16:22 | ED_ITS ---
HPI - Weakness General: Chief complaint: ER Hold Stated complaint: WEAK/ CRITICALLY LOW POTASSIUM Time Seen by Provider: 06/22/21 16:20 History of Present Illness: HPI Narrative: Ms. Garcia is a 80-year-old lady with significant past medical history of chronic hypoxic respiratory failure on 2 L of home oxygen, COPD, pulmonary hypertension, CHF, atrial fibrillation who presents to the emergency department due to abnormal lab. She reports a few weeks now of increased generalized fatigue and feeling sleepy. She feels that she has no energy. She denies associated infectious symptoms. Her symptoms are worse with exertion but and notable with rest. She has marked decreased exercise tolerance. She has not had to turn up her oxygen. The intensity of symptoms is now moderate to severe. She has had symptoms like this in the past. No other specific changes in health, medication, exacerbating, alleviating, or provoking factors identified. Review of Systems General: Reports: 10 or more systems reviewed and unremarkable except in HPI and below Narrative: CONSTITUTIONAL: denies fever, increased fatigue, weakness EYES - denies pain, denies loss of vision EARS - denies ear issues. NOSE - denies congestion or rhinorrhea. THROAT - denies sore throat or difficulty swallowing. CARDIOVASCULAR - denies chest pain and palpitations RESPIRATORY - increased shortness of breath and cough GASTROINTESTINAL - denies abdominal pain, no nausea vomiting, no changes in bowel habits GENITOURINARY - denies dysuria or urinary frequency MUSCULOSKELETAL- denies deformity or pain SKIN - denies rashes or new changed skin lesions NEUROLOGIC - denies focal weakness or sensory changes HEMATOLOGIC/LYMPHATIC - denies easy bruising or lymphadenopathy. [facility] ED PFSH: Medical History Acute exacerbation of COPD with asthma Afib Anemia -baseline Hg around 9-10 -follow with Dr Bullock CAD (coronary artery disease) Chronic anticoagulation Due to mechanical mitral valve; coumadin Chronic hypercapnic respiratory failure Depression Diastolic CHF GERD (gastroesophageal reflux disease) PPI HTN (hypertension) Hypothyroidism -continue levothyroxine Iron deficiency anemia Has required transfusion in past, last egd and colonoscopy ~2017 with diverticulosis and internal hemorrhoids, SONYA (obstructive sleep apnea) Parkinson disease Follows up with Dr. Rainey in [facility]'s ring Weakness Surgical History History of bilateral tubal ligation History of cholecystectomy History of total knee arthroplasty Left Mitral valve replaced Mechanical, on coumadin Family History Mother CAD (coronary artery disease) Diabetes Other Hypertension Social History Smoking and tobacco status: former smoker Quit status (tobacco): has quit using tobacco Year quit tobacco: 1994 - PPD x 15 Years Second hand smoke exposure: No Smoking risk assessment/counseling performed?: No Alcohol intake: never Counseling given: No Counseling given: No Caregiver/support person: Yes Household members: spouse and children Housing: House Marital status: Current occupational status: retired and disabled History of recent travel: No Current gender identity: Female Physical Exam Narrative: EXAM NARRATIVE: GENERAL/CONSTITUTIONAL - chronic ill-appearing. No acute distress. mildly somnalent Eyes - PERRL, no conjunctival injection ENMT - Atraumatic external nose and ears. Moist mucous membranes NECK - supple. trachea midline CARDIOVASCULAR - regular rate and rhythm. Peripheral pulses 2+ and equal RESPIRATORY -deminished to auscultation bilaterally. ABDOMEN/GI - Nontender/Nondistended. No tenderness to percussion or evidence of peritonitis MSK - Extremities without obvious deformity or tenderness to palpation SKIN - Warm, Dry NEURO - alert and appropriately oriented. strength and sensation intact. Moves all extremities equally. PSYCH - Appropriate mood and affect Course ED course: - Patient was seen and evaluated by me at bedside - Patient placed on cardiac monitors, IV access obtained - Initial evaluation notable for somewhat somnolent appearance, no acute distress. - Labs and imaging obtained and reviewed - Labs notable for mild leukopenia, normocytic anemia. No significant metabolic abnormality to explain the patient's symptoms. Patient likely has chronic CO2 retention resulting in elevated bicarb. - Imaging notable for findings concerning for lobar consolidation. Antibiotic ordered. -Given hypercapnia on ABG BiPAP was applied. ABG repeats with some improvement though stabilizing on repeat. - Upon serial reexamination after treatment the patient was improved - Based on patient history, evaluation, labs, and imaging as interpreted the most likely cause of the patient's condition is pneumonia and acute on chronic hypoxic and hypercapnic respiratory failure. - The results of ED evaluation were discussed with the patient including plan for admission due to requirement for level of care not available if discharged to prevent significant worsening/deterioration. -Hospitalist service contacted and agreed to admit the patient - Patient was admitted without further deterioration or significant events. Vital Signs: Vital signs: Vital Signs Temperature 98.2 F 06/24/21 15:49 Pulse Rate 70 06/24/21 15:49 Respiratory Rate 18 06/24/21 15:49 Blood Pressure 111/52 06/24/21 15:49 Pulse Oximetry 92 06/24/21 15:49 MDM - Weakness Medical Records: Attestation: I reviewed the patient's medical records. Lab Data: Attestation: I reviewed the patient's lab results. Labs: Lab Results 06/22/21 06/22/21 06/22/21 Range/Units 16:55 17:15 17:41 WBC 3.6 L (4.0-10.0) 10^3/ uL RBC 3.62 L (4.1-5.3) 10^6/u L Hgb 10.4 L (11.5-15.3) g/dL Hct 34.9 L (37.0-47.0) % MCV 96.4 (81-99) fl MCH 28.7 (28.0-34.0) pg MCHC 29.8 L (30.0-36.0) g/dL RDW 15.0 (12.1-15.1) % Plt Count 90 L (130-400) 10^3/c mm MPV 9.6 (7.4-10.4) fL Neut % (Auto) 58.9 % Lymph % (Auto) 28.0 % [place] % (Auto) 10.6 % Eos % (Auto) 1.4 % Baso % (Auto) 0.8 % Neut # (Auto) 2.10 (1.8-7.7) 10^3/u L Lymph # (Auto) 1.0 (0.8-4.8) 10^3/u L [place] # (Auto) 0.4 (0.2-0.9) 10^3/u L Eos # (Auto) 0.1 (0.0-0.8) 10^3/u L Baso # (Auto) 0.0 (0.0-0.1) 10^3/u L Nucleated RBC % (a uto) 0 % Nucleated RBCs # 0.0 /100WBC PT (12.1-14.9) SECO NDS INR (0.8-1.2) Specimen Type Arterial Sample Site Brachial, right ABG pH 7.32 L (7.35-7.45) ABG pCO2 98.3 H* (35-45) mmHg ABG pO2 178.0 H (80.0-100.0) mmH g ABG HCO3 50.5 H (22-26) mmol/L ABG Base Excess 20.2 H (-2.0-2.0) mmol/ L César Test Pos Hematocrit 33.6 L (37-47) % O2 Delivery Device Nc O2 Liters/Min 2.0 % FiO2 28.0 % PEEP cmH20 Mode BiPAP Specimen Drawn By Light Technician ID Ed Sodium (136-145) mmol/L Potassium (3.5-5.1) mmol/L Chloride (98-107) mmol/L Carbon Dioxide (22-29) mmol/L Anion Gap (5-19) BUN (8-23) mg/dL Creatinine (0.5-0.9) mg/dL GFR Calculation Glucose (65-115) mg/dL Calculated Osmolal ity (285-295) mOsm/k g Calcium (8.5-10.5) mg/dL Magnesium (1.7-2.3) mg/dL Total Bilirubin (0.15-1.2) mg/dL AST (0-32) U/L ALT (0-33) U/L Alkaline Phosphata se (35-105) IU/L Troponin T Baselin e (0-10) ng/L Troponin T 120 Min squaxin (0-10) ng/L Delta Troponin T (0-10) ABS# Total Protein (6.6-8.7) g/dL Albumin (3.5-5.2) g/dL Globulin (1.3-4.6) g/dL Procalcitonin (0-0.5) ng/mL TSH (0.27-4.20) uIU/ mL Urine Color Straw (Yellow) Urine Appearance Clear (CLEAR) Urine pH 7 (5-7) Ur Specific Gravit y 1.005 (1.005-1.030) Urine Protein Neg (Negative) Urine Glucose (UA) Norm (Normal) Urine Ketones Negative (Negative) Urine Blood 2+ H (Negative) Urine Nitrate Negative (Negative) Urine Bilirubin Neg (Negative) Urine Urobilinogen Norm (Negative) mg/dL Ur Leukocyte Carlyn ase Negative (Negative) Urine RBC 0-4 H (0-2) /hpf Urine WBC 0-4 H (0-5) /hpf Ur Squamous Epith Cells 0-4 H (0-5) /hpf Amorphous Sediment Not Reportable Urine Bacteria 1+ H (NONE) /hpf SARS-CoV-2 Ag (Rap id) (Negative) 06/22/21 06/22/21 06/22/21 Range/Units 17:41 17:41 17:41 WBC (4.0-10.0) 10^3/ uL RBC (4.1-5.3) 10^6/u L Hgb (11.5-15.3) g/dL Hct (37.0-47.0) % MCV (81-99) fl MCH (28.0-34.0) pg MCHC (30.0-36.0) g/dL RDW (12.1-15.1) % Plt Count (130-400) 10^3/c mm MPV (7.4-10.4) fL Neut % (Auto) % Lymph % (Auto) % [place] % (Auto) % Eos % (Auto) % Baso % (Auto) % Neut # (Auto) (1.8-7.7) 10^3/u L Lymph # (Auto) (0.8-4.8) 10^3/u L [place] # (Auto) (0.2-0.9) 10^3/u L Eos # (Auto) (0.0-0.8) 10^3/u L Baso # (Auto) (0.0-0.1) 10^3/u L Nucleated RBC % (a uto) % Nucleated RBCs # /100WBC PT 18.90 H (12.1-14.9) SECO NDS INR 1.54 H (0.8-1.2) Specimen Type Sample Site ABG pH (7.35-7.45) ABG pCO2 (35-45) mmHg ABG pO2 (80.0-100.0) mmH g ABG HCO3 (22-26) mmol/L ABG Base Excess (-2.0-2.0) mmol/ L César Test Hematocrit (37-47) % O2 Delivery Device O2 Liters/Min % FiO2 % PEEP cmH20 Mode BiPAP Specimen Drawn By Light Technician ID Sodium 147 H (136-145) mmol/L Potassium 3.4 L (3.5-5.1) mmol/L Chloride 98 (98-107) mmol/L Carbon Dioxide 47 H* (22-29) mmol/L Anion Gap 5.4 (5-19) BUN 12 (8-23) mg/dL Creatinine 0.6 (0.5-0.9) mg/dL GFR Calculation Not Reportable Glucose 103 (65-115) mg/dL Calculated Osmolal ity 304 H (285-295) mOsm/k g Calcium 8.0 L (8.5-10.5) mg/dL Magnesium 2.1 (1.7-2.3) mg/dL Total Bilirubin 0.9 (0.15-1.2) mg/dL AST 11 (0-32) U/L ALT < 5 (0-33) U/L Alkaline Phosphata se 87 (35-105) IU/L Troponin T Baselin e 16 H (0-10) ng/L Troponin T 120 Min squaxin (0-10) ng/L Delta Troponin T (0-10) ABS# Total Protein 5.7 L (6.6-8.7) g/dL Albumin 3.7 (3.5-5.2) g/dL Globulin 2.0 (1.3-4.6) g/dL Procalcitonin (0-0.5) ng/mL TSH 1.80 (0.27-4.20) uIU/ mL Urine Color (Yellow) Urine Appearance (CLEAR) Urine pH (5-7) Ur Specific Gravit y (1.005-1.030) Urine Protein (Negative) Urine Glucose (UA) (Normal) Urine Ketones (Negative) Urine Blood (Negative) Urine Nitrate (Negative) Urine Bilirubin (Negative) Urine Urobilinogen (Negative) mg/dL Ur Leukocyte Carlyn ase (Negative) Urine RBC (0-2) /hpf Urine WBC (0-5) /hpf Ur Squamous Epith Cells (0-5) /hpf Amorphous Sediment Urine Bacteria (NONE) /hpf SARS-CoV-2 Ag (Rap id) (Negative) 06/22/21 06/22/21 06/22/21 Range/Units 17:41 18:28 19:41 WBC (4.0-10.0) 10^3/ uL RBC (4.1-5.3) 10^6/u L Hgb (11.5-15.3) g/dL Hct (37.0-47.0) % MCV (81-99) fl MCH (28.0-34.0) pg MCHC (30.0-36.0) g/dL RDW (12.1-15.1) % Plt Count (130-400) 10^3/c mm MPV (7.4-10.4) fL Neut % (Auto) % Lymph % (Auto) % [place] % (Auto) % Eos % (Auto) % Baso % (Auto) % Neut # (Auto) (1.8-7.7) 10^3/u L Lymph # (Auto) (0.8-4.8) 10^3/u L [place] # (Auto) (0.2-0.9) 10^3/u L Eos # (Auto) (0.0-0.8) 10^3/u L Baso # (Auto) (0.0-0.1) 10^3/u L Nucleated RBC % (a uto) % Nucleated RBCs # /100WBC PT (12.1-14.9) SECO NDS INR (0.8-1.2) Specimen Type Arterial Sample Site Radial, left ABG pH 7.37 (7.35-7.45) ABG pCO2 84.7 H* (35-45) mmHg ABG pO2 55.5 L (80.0-100.0) mmH g ABG HCO3 48.7 H (22-26) mmol/L ABG Base Excess 19.8 H (-2.0-2.0) mmol/ L César Test Pos Hematocrit 32.4 L (37-47) % O2 Delivery Device Bipap O2 Liters/Min % FiO2 28.0 % PEEP cmH20 Mode BiPAP 16/8 Specimen Drawn By Ed Light Technician ID Ed Sodium (136-145) mmol/L Potassium (3.5-5.1) mmol/L Chloride (98-107) mmol/L Carbon Dioxide (22-29) mmol/L Anion Gap (5-19) BUN (8-23) mg/dL Creatinine (0.5-0.9) mg/dL GFR Calculation Glucose (65-115) mg/dL Calculated Osmolal ity (285-295) mOsm/k g Calcium (8.5-10.5) mg/dL Magnesium (1.7-2.3) mg/dL Total Bilirubin (0.15-1.2) mg/dL AST (0-32) U/L ALT (0-33) U/L Alkaline Phosphata se (35-105) IU/L Troponin T Baselin e (0-10) ng/L Troponin T 120 Min squaxin 14.74 H (0-10) ng/L Delta Troponin T -1.26 L (0-10) ABS# Total Protein (6.6-8.7) g/dL Albumin (3.5-5.2) g/dL Globulin (1.3-4.6) g/dL Procalcitonin (0-0.5) ng/mL TSH (0.27-4.20) uIU/ mL Urine Color (Yellow) Urine Appearance (CLEAR) Urine pH (5-7) Ur Specific Gravit y (1.005-1.030) Urine Protein (Negative) Urine Glucose (UA) (Normal) Urine Ketones (Negative) Urine Blood (Negative) Urine Nitrate (Negative) Urine Bilirubin (Negative) Urine Urobilinogen (Negative) mg/dL Ur Leukocyte Carlyn ase (Negative) Urine RBC (0-2) /hpf Urine WBC (0-5) /hpf Ur Squamous Epith Cells (0-5) /hpf Amorphous Sediment Urine Bacteria (NONE) /hpf SARS-CoV-2 Ag (Rap id) Negative (Negative) 06/22/21 06/22/21 Range/Units 19:41 20:10 WBC (4.0-10.0) 10^3/ uL RBC (4.1-5.3) 10^6/u L Hgb (11.5-15.3) g/dL Hct (37.0-47.0) % MCV (81-99) fl MCH (28.0-34.0) pg MCHC (30.0-36.0) g/dL RDW (12.1-15.1) % Plt Count (130-400) 10^3/c mm MPV (7.4-10.4) fL Neut % (Auto) % Lymph % (Auto) % [place] % (Auto) % Eos % (Auto) % Baso % (Auto) % Neut # (Auto) (1.8-7.7) 10^3/u L Lymph # (Auto) (0.8-4.8) 10^3/u L [place] # (Auto) (0.2-0.9) 10^3/u L Eos # (Auto) (0.0-0.8) 10^3/u L Baso # (Auto) (0.0-0.1) 10^3/u L Nucleated RBC % (a uto) % Nucleated RBCs # /100WBC PT (12.1-14.9) SECO NDS INR (0.8-1.2) Specimen Type Arterial Sample Site Radial, right ABG pH 7.36 (7.35-7.45) ABG pCO2 86.7 H* (35-45) mmHg ABG pO2 122.0 H (80.0-100.0) mmH g ABG HCO3 48.4 H (22-26) mmol/L ABG Base Excess 19.0 H (-2.0-2.0) mmol/ L César Test Pos Hematocrit 34.0 L (37-47) % O2 Delivery Device Bipap O2 Liters/Min % FiO2 40.0 % PEEP 8.0 cmH20 Mode BiPAP Specimen Drawn By Light Technician MICH Shannon Sodium (136-145) mmol/L Potassium (3.5-5.1) mmol/L Chloride (98-107) mmol/L Carbon Dioxide (22-29) mmol/L Anion Gap (5-19) BUN (8-23) mg/dL Creatinine (0.5-0.9) mg/dL GFR Calculation Glucose (65-115) mg/dL Calculated Osmolal ity (285-295) mOsm/k g Calcium (8.5-10.5) mg/dL Magnesium (1.7-2.3) mg/dL Total Bilirubin (0.15-1.2) mg/dL AST (0-32) U/L ALT (0-33) U/L Alkaline Phosphata se (35-105) IU/L Troponin T Baselin e (0-10) ng/L Troponin T 120 Min squ[place] (0-10) ng/L Delta Troponin T (0-10) ABS# Total Protein (6.6-8.7) g/dL Albumin (3.5-5.2) g/dL Globulin (1.3-4.6) g/dL Procalcitonin 0.03 (0-0.5) ng/mL TSH (0.27-4.20) uIU/ mL Urine Color (Yellow) Urine Appearance (CLEAR) Urine pH (5-7) Ur Specific Gravit y (1.005-1.030) Urine Protein (Negative) Urine Glucose (UA) (Normal) Urine Ketones (Negative) Urine Blood (Negative) Urine Nitrate (Negative) Urine Bilirubin (Negative) Urine Urobilinogen (Negative) mg/dL Ur Leukocyte Carlyn ase (Negative) Urine RBC (0-2) /hpf Urine WBC (0-5) /hpf Ur Squamous Epith Cells (0-5) /hpf Amorphous Sediment Urine Bacteria (NONE) /hpf SARS-CoV-2 Ag (Rap id) (Negative) EKG Data^: EKG 1: Attestation: I personally reviewed and interpreted this EKG as follows: EKG interpretation date: 06/22/21 EKG interpretation time: 16:35 Prior EKG tracings: available for review Interpretation: Twelve-lead EKG shows a regular atrial rhythm at a rate of 53. WI interval does not exist, QRS 106, QTc 441. Normal axis. Interpretation: Atrial fibrillation. Bradycardia. ABG Data^: ABG Interpretation 1: ABG results: 7.319/98.3/178 Attestation: I personally reviewed and interpreted this ABG as follows: Interpretation: Respiratory acidosis ABG Interpretation 2: ABG results: 7.368/84.7/55.5 Attestation: I personally reviewed and interpreted this ABG as follows: Interpretation: Respiratory acidosis with metabolic compensation. ABG Interpretation 3: ABG results: 7.355/86.7/122 Attestation: I personally reviewed and interpreted this ABG as follows: Interpretation: Respiratory acidosis with metabolic compensation Discharge Plan Discharge Patient Disposition: Admitted As Inpatient Admit Provider: Hellen Gallo Coding Level of Care Code ED Gasket Supervisor for Chg Fwd
--- NOTE | 2021-06-22 16:25 | XRR_ITS ---
PROCEDURE INFORMATION: Exam: XR Chest Exam date and time: 06/22/2021 4:25 PM Age: 80 years old Clinical indication: Other: Weakness TECHNIQUE: Imaging protocol: XR of the chest. Views: 1 view. COMPARISON: CR XR chest 1V portable [id number] 03/23/2021 10:35 AM FINDINGS: Tubes, catheters and devices: Sternotomy wires and heart valve prosthesis. Lungs: Patchy airspace opacities in the left lung base. Calcified granuloma in the peripheral right lung. Lungs are otherwise clear. Pleural spaces: Unremarkable. No pleural effusion. No pneumothorax. Heart/Mediastinum: Mild cardiomegaly. Bones/joints: Unremarkable. XR/XR chest 1V portable [id number] IMPRESSION: 1. Opacities in the left lung base could represent atelectasis, scarring, or pneumonia.
--- NOTE | 2021-06-22 16:26 | ECG_ITS ---
[facility] Test Date: 2021-06-22 Pat Name: Iris Garcia Department: Room: Gender: Female Blueprint Maker: : 1940 Requested By: Shon Dunn Order Number: [id number] Krupa MD: Cas Galvez M.D. Measurements Intervals Ola Rate: 53 P: AK: QRS: 13 QRSD: 106 T: 18 QT: 468 QTc: 441 Interpretive Statements ATRIAL FIBRILLATION WITH SLOW VENTRICULAR RESPONSE ABNORMAL RHYTHM ECG Compared to ECG 03/23/2021 17:36:14 T-wave abnormality no longer present Possible ischemia no longer present Electronically Signed On 06-22-2021 17:07:27 CDT by Cas Galvez M.D. [email or web address]
--- NOTE | 2021-06-22 16:36 | CTR_ITS ---
PROCEDURE INFORMATION: Exam: CT Head Without Contrast Exam date and time: 06/22/2021 4:36 PM Age: 80 years old Clinical indication: Altered mental status/memory loss; Additional info: AMS TECHNIQUE: Imaging protocol: Computed tomography of the head without contrast. Radiation optimization: All CT scans at this facility use at least one of these dose optimization techniques: automated exposure control; mA and/or kV adjustment per patient size (includes targeted exams where dose is matched to clinical indication); or iterative reconstruction. COMPARISON: CT head wo con* [id number] 02/26/2021 12:05 AM RADIATION DOSE METRICS: Total DLP (mGy-cm): 1491.39 FINDINGS: Brain: Mild cortical volume loss. Mild hypodensities in supratentorial periventricular and subcortical white matter, consistent with microangiopathy. No intracranial hemorrhage. Cerebral ventricles: No ventriculomegaly. Paranasal sinuses: Visualized sinuses are unremarkable. No fluid levels. Mastoid air cells: Visualized mastoid air cells are well aerated. Orbital cavity: Prior cataract surgery. Vasculature: No hyperdense artery. Bones/joints: Rightward nasal septal deviation. The bones are intact. No fracture. Soft tissues: Unremarkable. CT/CT head wo con* [id number] IMPRESSION: 1. No acute intracranial abnormality. Radiation Dose CTDIVOL = (mGy): DLP = 1491.39 (mGy-cm)
[2021-06-22 17:03] LABS: ABG PH Result 7.32 (7.35-7.45); Arterial Blood Gas Hematocrit 33.6 % (37-47); Base Excess ABG 20.2 mmol/L (-2.0-2.0); Blood Gas Allen Test Pos; Blood Gas Sample Type Arterial; HCO3 ABG 50.5 mmol/L (22-26)
[2021-06-22 17:06] LABS: Blood Gas Operator Identificat ED; Blood Gas Sample Site Brachial, right; Oxygen Device NC
[2021-06-22 17:39] LABS: Add Urine Microscopic? YES; Bacteria Urine 1+ /hpf; Bilirubin Urine Neg (Negative); Blood Urine 2+ (Negative); Glucose Urine UA Norm (Normal); Ketones Urine Negative (Negative); Leukocyte Esterase Urine Negative (Negative); Nitrate Urine Negative (Negative); Protein Urine Neg (Negative); RBC Urine 0-4 /hpf (0-2); Specific Gravity, Urine 1.005 (1.005-1.030); Squamous Epithelial Cell Urine 0-4 /hpf (0-5); Urine Appearance Clear (CLEAR); Urine Color Straw (Yellow); Urobilinogen Urine Norm (Negative); WBC Urine 0-4 /hpf (0-5); pH Urine 7 (5-7)
[2021-06-22 17:40] LABS: Add Urine Culture? No
[2021-06-22 17:44] VITALS: BP 89/41; PULSE 53; RESP 16; TEMP 36.6; O2SAT 100
[2021-06-22 17:48] LABS: Basophils % 0.8 %; Eosinophils # 0.1 10^3/uL (0.0-0.8); Eosinophils % 1.4 %; Hematocrit 34.9 % (37.0-47.0); Hemoglobin 10.4 g/dL (11.5-15.3); Mean Corpuscular HGB Conc 29.8 g/dL (30.0-36.0); Mean Corpuscular Hemoglobin 28.7 pg (28.0-34.0); Mean Corpuscular Volume 96.4 fl (81-99); Mean Platelet Volume 9.6 fL (7.4-10.4); Monocytes # 0.4 10^3/uL (0.2-0.9); Monocytes % 10.6 %; Neutrophils % 58.9 %; Nucleated Red Blood Cells % 0 %; Platelet Count 90 10^3/cmm (130-400); Red Blood Count 3.62 10^6/uL (4.1-5.3); White Blood Count 3.6 10^3/uL (4.0-10.0)
[2021-06-22] MEDS: lactated ringers 500 ML 999 ML IV (17:50)
[2021-06-22 17:55] VITALS: PULSE 53; RESP 19; O2SAT 96
[2021-06-22 18:05] LABS: INR 1.54 (0.8-1.2)
[2021-06-22 18:18] LABS: Troponin(5th) Baseline 16 ng/L (0-10)
[2021-06-22 18:23] LABS: SARS Covid-2 Antigen Negative (Negative)
[2021-06-22 18:25] LABS: Alanine Aminotransferase < 5 U/L (0-33); Albumin Level 3.7 g/dL (3.5-5.2); Alkaline Phosphatase 87 IU/L (35-105); Anion Gap 5.4 (5-19); Aspartate Amino Transferase 11 U/L (0-32); Blood Urea Nitrogen 12 mg/dL (8-23); Chloride 98 mmol/L (98-107); Glucose 103 mg/dL (65-115); Magnesium 2.1 mg/dL (1.7-2.3); Osmolality Calculated 304 mOsm/kg (285-295); Potassium 3.4 mmol/L (3.5-5.1); Sodium 147 mmol/L (136-145); Total Bilirubin 0.9 mg/dL (0.15-1.2); Total Protein 5.7 g/dL (6.6-8.7)
[2021-06-22 18:27] LABS: Carbon Dioxide 47 mmol/L (22-29)
[2021-06-22] MEDS: cefTRIAXone 1,000 MG in sodium chloride 0.9% (plus) 50 ML 100 MG IV (18:34)
[2021-06-22] MEDS: doxycycline 100 MG in sodium chloride 0.9% (plus) 100 ML IV (18:35)
[2021-06-22 18:38] LABS: ABG PH Result 7.37 (7.35-7.45); Arterial Blood Gas Hematocrit 32.4 % (37-47); Base Excess ABG 19.8 mmol/L (-2.0-2.0); Blood Gas Allen Test Pos; Blood Gas Sample Type Arterial; HCO3 ABG 48.7 mmol/L (22-26); PO2 ABG 55.5 mmHg (80.0-100.0)
[2021-06-22 18:39] LABS: ABG PCO2 98.3 mmHg (35-45)
[2021-06-22 18:41] LABS: Blood Gas Sample Site Radial, left; Oxygen Device BIPAP
[2021-06-22 18:42] LABS: ABG PCO2 84.7 mmHg (35-45); BIPAP 16/8; Blood Gas Drawn By ED; Blood Gas Operator Identificat ED
--- NOTE | 2021-06-22 18:56 | PC.PHAR ---
PT UNABLE TO CONFIRM MEDICATIONS. PT BROUGHT IN MED LIST, BUT IT WASN'T UP TO DATE. I SPOKE WITH PT'S DAUGHTER WHO CONFIRMED THE MED LIST.
[2021-06-22 19:00] VITALS: BP 119/47; PULSE 52; O2SAT 86
[2021-06-22 20:28] LABS: Troponin 5 2HR 14.74 ng/L (0-10)
[2021-06-22 20:29] LABS: Troponin 5 2HR Delta -1.26 ABS# (0-10)
[2021-06-22] MEDS: lactated ringers 1,000 ML 999 ML IV (20:33)
[2021-06-22 20:34] LABS: Procalcitonin 0.03 ng/mL (0-0.5)
[2021-06-22] MEDS: lidocaine 1% 5 ML in potassium chloride premix 100 ML 25 ML IV (20:35)
[2021-06-22 20:54] VITALS: PULSE 71; RESP 16; O2SAT 94
--- NOTE | 2021-06-22 23:34 | PM.HP ---
Providers/Chief Complaint Admitting Physician: Hellen Gallo Primary Care Provider: Michael Hampton DO Chief Complaint: Hypercapneic respiratory failure History of Present Illness Iris Garcia is a 80 year old female with PMH severe restrictive lung disease, chronic hypercapneic respiratory failure, on trilogy at home, pulmonary hypertension, chronic dCHF, A fib brought to the ER today due to 4-5 days of increasing somolence and confusion. ABG on presentation with 7.32/98/178/50 on 2lpm NC. She was started on Bipap and has since been more awake, ABG improved to 7.37/84.7/55/48. She is feeling improved. Denies any recent chest pain, dyspnea, palpitations, syncope, fever, cough. CXR today shows LLL infiltrate. Rapid covid Ag negative. Unable to ascertain at this time if patient has been using her inhalers and trilogy as prescribed. Review of Systems General: Reports: 10 or more systems reviewed and unremarkable except in HPI and below Const: Denies: fever(s), chills or body aches Eyes: Denies: change in vision, blurry vision or photophobia ENMT: Reports: hoarseness; Denies: throat pain, enlarged tonsils, odynophagia or nasal congestion Card: Denies: chest pain, palpitations, irregular heart rhythm, edema, swelling of feet/ankles, lightheadedness, pre-syncope, dyspnea on exertion or orthopnea Resp: Denies: dyspnea, productive cough, non-productive cough, wheezing, stridor, pain on inspiration, change in phlegm color, hemoptysis or chest congestion GI: Denies: abdominal pain, nausea, vomiting, hematemesis, coffee ground emesis, dysphagia, heartburn, diarrhea, constipation, GI cramping, change in stool character, hematochezia or melena : Denies: flank pain, difficulty voiding, dysuria, urinary frequency, urinary urgency, urinary hesitancy or hematuria Musc: Denies: neck pain, back pain, extremity pain, joint swelling, joint warmth or deformity Neuro: Denies: headache(s), numbness in extremities, weakness in extremities, sensory changes, difficulty walking, frequent falls, dizziness, vertigo, behavioral changes, Slurred speech present or seizure-like activity Psych: Denies: anxiety, depression, suicidal ideation or homicidal ideation Endo: Denies: polyuria, polydipsia, tired all the time, cold intolerance or hot flashes Jesus Alberto/Lymph: Denies: easy bruising or easy bleeding Medications/Allergies Home Medications Medication Instructions Recorded Confirmed Last Taken Type fluoxetine 10 mg capsule 10 mg PO DAILY@09 cap 11/06/19 06/22/21 06/22/21 History carbidopa 10 mg-levodopa 100 mg 1 tab PO TID@ tab 03/12/20 06/22/21 06/22/21 History disintegrating tablet tolterodine 2 mg tablet 2 mg PO BID@03/12/20 06/22/21 06/22/21 History levothyroxine 50 mcg capsule 50 mcg PO DAILY@05/21/20 06/22/21 06/22/21 History ferrous gluconate 324 mg PO BID@11/10/20 06/22/21 06/22/21 History potassium chloride [Klor-Con 10] 20 meq PO BID@11/10/20 06/22/21 06/22/21 History sennosides-docusate sodium 2 tab PO BID PRN 11/10/20 06/22/21 06/22/21 History pantoprazole 40 mg PO BID@0900,209912/31/20 06/22/21 06/22/21 History cholecalciferol (vitamin D3) 25 mcg PO DAILY@0900 #0 02/12/21 06/22/21 06/22/21 History [Vitamin D3] fluticasone propion-salmeterol 1 inh INHALATION BID@0900,209902/12/21 06/22/21 02/12/21 History [Advair Diskus] nitroglycerin 0.4 mg SUBLINGUAL Q5M PRN 02/12/21 06/22/21 Unknown History rosuvastatin 10 mg PO DAILY@0900 02/12/21 06/22/21 06/22/21 History tramadol 50 mg PO Q6H PRN 02/12/21 06/22/21 Unknown History albuterol sulfate 1 inh INHALATION Q6H PRN MDD SEE 02/26/21 06/22/21 Unknown History PHARMACY COMMENT isosorbide mononitrate 15 mg PO BID@0900,2100 02/26/21 06/22/21 06/22/21 History Spiriva Respimat 2 inh INHALATION Q24H #4 g 03/01/21 06/22/21 Unknown Rx nystatin [Nystop] 1 applic TOPICAL BID PRN #60 g 03/01/21 06/22/21 Unknown Rx bumetanide 1 mg tablet 3 mg PO DIRECTED tab 04/27/21 06/22/21 06/22/21 History metolazone 2.5 mg tablet 2.5 mg PO .COMPLEX 30 Days #15 tab 04/27/21 06/22/21 Unknown Rx polyethylene glycol 3350 17 gram 17 g PO DAILY@0900 PRN 04/27/21 06/22/21 Unknown History oral powder packet lisinopril 2.5 mg tablet 2.5 mg PO DAILY #30 tab 06/09/21 06/22/21 06/22/21 Rx warfarin 3 mg tablet 3 mg PO DIRECTED #30 tab 06/21/21 06/22/21 06/21/21 Rx carvedilol 6.25 mg PO BID 06/22/21 06/22/21 06/22/21 History metoprolol tartrate 12.5 mg PO DAILY 06/22/21 06/22/21 06/22/21 History Allergies Allergy/AdvReac Type Severity Reaction Status Date / Time penicillin G Allergy UNK Verified 06/22/21 16:29 PFSH Acute PFSH: Medical History Acute exacerbation of COPD with asthma Afib Anemia -baseline Hg around 9-10 -follow with Dr Bullock CAD (coronary artery disease) Chronic anticoagulation Due to mechanical mitral valve; coumadin Chronic hypercapnic respiratory failure Depression Diastolic CHF GERD (gastroesophageal reflux disease) PPI HTN (hypertension) Hypothyroidism -continue levothyroxine Iron deficiency anemia Has required transfusion in past, last egd and colonoscopy ~2017 with diverticulosis and internal hemorrhoids, SONYA (obstructive sleep apnea) Parkinson disease Follows up with Dr. Rainey in [facility]' ring Weakness Surgical History History of bilateral tubal ligation History of cholecystectomy History of total knee arthroplasty Left Mitral valve replaced Mechanical, on coumadin Family History Mother CAD (coronary artery disease) Diabetes Other Hypertension Social History Smoking and tobacco status: former smoker Quit status (tobacco): has quit using tobacco Year quit tobacco: 1994 PPD x 15 Years Second hand smoke exposure: No Smoking risk assessment/counseling performed?: No Alcohol intake: never Counseling given: No Counseling given: No Caregiver/support person: Yes Household members: spouse and children Housing: House Marital status: Current occupational status: retired and disabled History of recent travel: No Current gender identity: Female Vitals/I&O/Wt Last Vital Signs Temp 97.9 F 06/22/21 17:44 Pulse 71 06/22/21 20:54 Resp 16 06/22/21 17:44 BP 119/47 06/22/21 19:00 Pulse Ox 94 06/22/21 20:54 06/22/21 06/22/21 06/23/21 14:59 22:59 06:59 Intake Total 150 / 150 Balance 150 / 150 Weight last 48 hrs Weight 61.235 kg Physical Exam Narrative: EXAM NARRATIVE: General: Currently on Bipap, able to tell me her name, that she is in hospital, recognized family at bedside, able to have conversation HEENT: PERRLA, pupils bilaterally equal and reactive, pallors not present Chest: Normal vesicular breath sounds, no added sounds, equal good air entry bilaterally CVS: S1-S2 regular, no murmurs, no tachycardia, no gallops, no rubs Abdomen: Soft, nontender, no organomegaly, bowel sounds present Neuro:LE muscle atrophy appears unchanged over previous exams, no new focal deficits grossly Extremities: Changes of chronic venous stasis Data : 06/22/21 17:41 06/22/21 17:41 Other Labs: Laboratory Results WBC 3.6 10^3/uL (4.0-10.0) L 06/22/21 17:41 RBC 3.62 10^6/uL (4.1-5.3) L 06/22/21 17:41 Hgb 10.4 g/dL (11.5-15.3) L 06/22/21 17:41 Hct 34.9 % (37.0-47.0) L 06/22/21 17:41 MCV 96.4 fl (81-99) 06/22/21 17:41 MCH 28.7 pg (28.0-34.0) 06/22/21 17:41 MCHC 29.8 g/dL (30.0-36.0) L 06/22/21 17:41 RDW 15.0 % (12.1-15.1) 06/22/21 17:41 Plt Count 90 10^3/cmm (130-400) L 06/22/21 17:41 MPV 9.6 fL (7.4-10.4) 06/22/21 17:41 Neut % (Auto) 58.9 % 06/22/21 17:41 Lymph % (Auto) 28.0 % 06/22/21 17:41 Mobile % (Auto) 10.6 % 06/22/21 17:41 Eos % (Auto) 1.4 % 06/22/21 17:41 Baso % (Auto) 0.8 % 06/22/21 17:41 Neut # (Auto) 2.10 10^3/uL (1.8-7.7) 06/22/21 17:41 Lymph # (Auto) 1.0 10^3/uL (0.8-4.8) 06/22/21 17:41 Mobile # (Auto) 0.4 10^3/uL (0.2-0.9) 06/22/21 17:41 Eos # (Auto) 0.1 10^3/uL (0.0-0.8) 06/22/21 17:41 Baso # (Auto) 0.0 10^3/uL (0.0-0.1) 06/22/21 17:41 Nucleated RBC % (auto) 0 % 06/22/21 17:41 Nucleated RBCs # 0.0 /100WBC 06/22/21 17:41 PT 18.90 SECONDS (12.1-14.9) H 06/22/21 17:41 INR 1.54 (0.8-1.2) H 06/22/21 17:41 Specimen Type Arterial 06/22/21 18:28 Sample Site Radial, left 06/22/21 18:28 ABG pH 7.37 (7.35-7.45) 06/22/21 18:28 ABG pCO2 84.7 mmHg (35-45) H* 06/22/21 18:28 ABG pO2 55.5 mmHg (80.0-100.0) L 06/22/21 18:28 ABG HCO3 48.7 mmol/L (22-26) H 06/22/21 18:28 ABG Base Excess 19.8 mmol/L (-2.0-2.0) H 06/22/21 18:28 César Test Pos 06/22/21 18:28 Hematocrit 32.4 % (37-47) L 06/22/21 18:28 O2 Delivery Device Bipap 06/22/21 18:28 O2 Liters/Min 2.0 % 06/22/21 16:55 FiO2 28.0 % 06/22/21 18:28 Mode BiPAP 14/0606/22/21 18:28 Specimen Drawn By Ed 06/22/21 18:28 Supervisory Investigative Specialist ID Ed 06/22/21 18:28 Sodium 147 mmol/L (136-145) H 06/22/21 17:41 Potassium 3.4 mmol/L (3.5-5.1) L 06/22/21 17:41 Chloride 98 mmol/L (98-107) 06/22/21 17:41 Carbon Dioxide 47 mmol/L (22-29) H* 06/22/21 17:41 Anion Gap 5.4 (5-19) 06/22/21 17:41 BUN 12 mg/dL (8-23) 06/22/21 17:41 Creatinine 0.6 mg/dL (0.5-0.9) 06/22/21 17:41 GFR Calculation Not Reportable 06/22/21 17:41 Glucose 103 mg/dL (65-115) 06/22/21 17:41 Calculated Osmolality 304 mOsm/kg (285-295) H 06/22/21 17:41 Calcium 8.0 mg/dL (8.5-10.5) L 06/22/21 17:41 Magnesium 2.1 mg/dL (1.7-2.3) 06/22/21 17:41 Total Bilirubin 0.9 mg/dL (0.15-1.2) 06/22/21 17:41 AST 11 U/L (0-32) 06/22/21 17:41 ALT < 5 U/L (0-33) 06/22/21 17:41 Alkaline Phosphatase 87 IU/L (35-105) 06/22/21 17:41 Troponin T Baseline 16 ng/L (0-10) H 06/22/21 17:41 Troponin T 120 Minute 14.74 ng/L (0-10) H 06/22/21 19:41 Delta Troponin T -1.26 ABS# (0-10) L 06/22/21 19:41 Total Protein 5.7 g/dL (6.6-8.7) L 06/22/21 17:41 Albumin 3.7 g/dL (3.5-5.2) 06/22/21 17:41 Globulin 2.0 g/dL (1.3-4.6) 06/22/21 17:41 Procalcitonin 0.03 ng/mL (0-0.5) 06/22/21 19:41 TSH 1.80 uIU/mL (0.27-4.20) 06/22/21 17:41 Urine Color Straw (Yellow) 06/22/21 17:15 Urine Appearance Clear (CLEAR) 06/22/21 17:15 Urine pH 7 (5-7) 06/22/21 17:15 Ur Specific [place] 1.005 (1.005-1.030) 06/22/21 17:15 Urine Protein Neg (Negative) 06/22/21 17:15 Urine Glucose (UA) Norm (Normal) 06/22/21 17:15 Urine Ketones Negative (Negative) 06/22/21 17:15 Urine Blood 2+ (Negative) H 06/22/21 17:15 Urine Nitrate Negative (Negative) 06/22/21 17:15 Urine Bilirubin Neg (Negative) 06/22/21 17:15 Urine Urobilinogen Norm mg/dL (Negative) 06/22/21 17:15 Ur Leukocyte Esterase Negative (Negative) 06/22/21 17:15 Urine RBC 0-4 /hpf (0-2) H 06/22/21 17:15 Urine WBC 0-4 /hpf (0-5) H 06/22/21 17:15 Ur Squamous Epith Cells 0-4 /hpf (0-5) H 06/22/21 17:15 Amorphous Sediment Not Reportable 06/22/21 17:15 Urine Bacteria 1+ /hpf (NONE) H 06/22/21 17:15 SARS-CoV-2 Ag (Rapid) Negative (Negative) 06/22/21 17:41 Impressions Chest X-Ray 06/22/21 16:25 IMPRESSION: 1. Opacities in the left lung base could represent atelectasis, scarring, or pneumonia. Head CT 06/22/21 16:36 IMPRESSION: 1. No acute intracranial abnormality. Radiation Dose CTDIVOL = (mGy): DLP = 1491.39 (mGy-cm) Attestation for Other Data: I personally reviewed and interpreted the following: Other data: 06/22/21 06/22/21 16:55 18:28 ABG pH 7.32 L 7.37 ABG pCO2 98.3 H* 84.7 H* ABG pO2 178.0 H 55.5 L ABG HCO3 50.5 H 48.7 H ABG Base Excess 20.2 H 19.8 H A&P Assessment and plan (1) Acute on chronic respiratory failure with hypercapnia: Patient with multiple comorbidities as listed above, presenting today with acute on chronic hypercapnic respiratory failure likely as a result of known restrictive lung disease, COPD exacerbation and pulmonary hypertension. Methylprednisolone 40 mg IV every 8 hours duoneb q6h, budesonide q12h Possible left lower lobe pneumonia on chest x-ray, Levaquin 750 mg p.o. every 24 hours Patient has thus far received 1200 mL of fluid bolus in the ER in color a running fluid at 50 cc an hour as transiently hypotensive with systolic blood pressure of 89. Discontinue IV fluids at this time given patient's history of diastolic heart failure, history of quick decompensation in the past. Currently patient is appearing to be euvolemic. Resume Bumex at home dose in the morning. Hold tolterodine for now may need to be reassessed depending on volume status in the morning. BiPAP to continue overnight Status: Acute (2) Restrictive lung disease: Status: Acute (3) COPD (chronic obstructive pulmonary disease): Status: Acute Qualifiers: COPD type: chronic bronchitis Chronic bronchitis type: unspecified Qualified Code(s): J42 - Unspecified chronic bronchitis (4) Pulmonary hypertension: Status: Acute (5) Heart failure: Status: Acute Qualifiers: Heart failure type: diastolic Heart failure chronicity: chronic Qualified Code(s): I50.32 - Chronic diastolic (congestive) heart failure Additional A&P Information A. fib: Currently well controlled On chronic anticoagulation with warfarin. INR at 1.54. Continue Coumadin at 3 mg p.o. daily. Continue carvedilol Diuretic management as noted above Attestations Medical Necessity Statement*: Anticipating less than 2 midnight stay for management of acute on chronic hypercapnic respiratory failure Coding Level of Care Code Acute Plant Sprayer for [facility] Fw Diagnoses Acute on chronic respiratory failure with hypercapnia J96.22 Restrictive lung disease J98.4 COPD (chronic obstructive pulmonary disease) J42 COPD type: chronic bronchitis Chronic bronchitis type: unspecified Pulmonary hypertension I27.20 Heart failure I50.32 Heart failure type: diastolic Heart failure chronicity: chronic
[2021-06-23] VITALS (16 sets, daily range): BP systolic 115–157; BP diastolic 40–70; PULSE 57–79; RESP 15–32; TEMP 36.3–36.7; O2SAT 90–100; BMI 24.1
[2021-06-23 00:26] LABS: ABG PH Result 7.36 (7.35-7.45); Blood Gas Allen Test Pos; Blood Gas Sample Site Radial, right; Blood Gas Sample Type Arterial; HCO3 ABG 48.4 mmol/L (22-26); Oxygen Device BIPAP
[2021-06-23 00:28] LABS: ABG PCO2 86.7 mmHg (35-45)
[2021-06-23] MEDS: bumetanide 1 mg Tablet 2 MG PO (05:53)
[2021-06-23 06:48] LABS: Alanine Aminotransferase 6 U/L (0-33); Albumin Level 3.7 g/dL (3.5-5.2); Alkaline Phosphatase 93 IU/L (35-105); Anion Gap 12.2 (5-19); Aspartate Amino Transferase 13 U/L (0-32); Blood Urea Nitrogen 13 mg/dL (8-23); Calcium 8.6 mg/dL (8.5-10.5); Carbon Dioxide 39 mmol/L (22-29); Chloride 98 mmol/L (98-107); Globulin 2.7 g/dL (1.3-4.6); Glucose 122 mg/dL (65-115); Osmolality Calculated 301 mOsm/kg (285-295); Potassium 4.2 mmol/L (3.5-5.1); Sodium 145 mmol/L (136-145); Total Bilirubin 0.9 mg/dL (0.15-1.2); Total Protein 6.4 g/dL (6.6-8.7)
[2021-06-23] MEDS: budesonide 0.5 mg/2 mL Neb INHALATION ×2 (09:13→19:42)
[2021-06-23] MEDS: ipratropium-albuterol 3 mL Neb INHALATION ×2 (09:13→14:40)
--- NOTE | 2021-06-23 13:42 | PM.PN ---
Subjective Subjective: Interval history: History and physical reviewed. Patient presented with respiratory failure requiring BiPAP. This is similar to previous presentations. Family ready for skilled care placement. Medications: Reviewed: Yes Vitals/I&O/Wt Last Vital Signs Temp 97.9 F 06/22/21 17:44 Pulse 71 06/23/21 13:21 Resp 20 H 06/23/21 13:20 BP 122/70 06/23/21 13:20 Pulse Ox 98 06/23/21 13:21 06/22/21 06/23/21 06/23/21 22:59 06:59 14:59 Intake Total 150 / 150 1605 / 1755 Balance 150 / 150 1605 / 1755 Weight last 48 hrs Weight 61.235 kg Physical Exam Narrative: EXAM NARRATIVE: General exam is a white female, on BiPAP, who can say a few words and recognizes me. Neck is supple no lymphadenopathy thyromegaly Cardiovascular regular rate and rhythm with a click Abdomen is soft with positive bowel sounds Extremities a few faint wheezes. Diminished breath sounds are noted bilaterally Abdomen is soft, positive bowel sounds Extremities no cyanosis clubbing or edema Data : 06/22/21 17:41 06/23/21 06:00 A&P Assessment and plan (1) Acute on chronic respiratory failure with hypercapnia: Consistent with COPD exacerbation Continue IV steroids Change Levaquin to IV as she is having trouble taking p.o. for concern of left lower lobe pneumonia Continue pulmonary toilet, budesonide as well as albuterol and Atrovent Attempt diuresis by initiating Lasix 60 mg every 12 hours for her acute diastolic heart failure.. She is unable to take her p.o. Bumex Continue BiPAP, weaning off as tolerated. Note that she wears trilogy at home. Covid PCR pending Status: Acute (2) Restrictive lung disease: Status: Acute (3) COPD (chronic obstructive pulmonary disease): Status: Acute Qualifiers: COPD type: chronic bronchitis Chronic bronchitis type: unspecified Qualified Code(s): J42 - Unspecified chronic bronchitis (4) Pulmonary hypertension: Status: Acute (5) Heart failure: Status: Acute Qualifiers: Heart failure type: diastolic Heart failure chronicity: chronic Qualified Code(s): I50.32 - Chronic diastolic (congestive) heart failure Additional A&P Information Pneumonia, IV Levaquin Acute diastolic heart failure. Diuresis with IV Lasix A. fib: Currently well controlled. Continue carvedilol On chronic anticoagulation with warfarin for mitral valve replacement. Continue Coumadin at 3 mg p.o. daily. Pharmacy to manage INR Attestations Medical Necessity Statement*: Needs continued hospital stay for treatment of acute respiratory failure requiring BiPAP. Coding Level of Care Code Acute Accounts Receivable Clerk for [facility] Fwd Diagnoses Acute on chronic respiratory failure with hypercapnia J96.22 Restrictive lung disease J98.4 COPD (chronic obstructive pulmonary disease) J42 COPD type: chronic bronchitis Chronic bronchitis type: unspecified Pulmonary hypertension I27.20 Heart failure I50.32 Heart failure type: diastolic Heart failure chronicity: chronic
--- NOTE | 2021-06-23 13:51 | PC.NURSE ---
Addendum entered by Arianne Pena RN 06/23/21 14:36: to Med Surg Nurse Original Note: report has been given
--- NOTE | 2021-06-23 13:55 | PC.NURSE ---
medications that were not given prior to my arrival are placed in the locked pharmacy bin at this time
[2021-06-23] MEDS: FUROsemide 10 mg/mL SDV 10mL 60 MG IVP ×2 (15:07→15:09)
[2021-06-23] MEDS: warfarin 3 mg Tablet PO (15:09)
[2021-06-23] MEDS: warfarin 2 mg Tablet PO (15:09)
[2021-06-23] MEDS: levofloxacin-dextrose 5 % 750 MG/150 ML PREMIX 100 MG IV (15:10)
[2021-06-23 15:55] LABS: Coronavirus Test Green County Not Detected
--- NOTE | 2021-06-23 17:00 | PC.RESP ---
PULMONARY REHAB INFORMATION SENT TO PATIENT.
--- NOTE | 2021-06-23 17:52 | PC.RESP ---
RT Shift Note Frequent safety and respiratory rounds continue. Orders completed as indicated. Patient monitored pre and post treatments throughout shift. Patient tolerated treatments appropriately. Condition did not change. Patient and/or care support representative educated on respiratory treatment and medications. Patient and/or care support representative verbalized understanding. Will continue to monitor patient progress.
[2021-06-23] MEDS: carvedilol 6.25 mg Tablet PO (18:11)
[2021-06-23] MEDS: isosorbide mononitrate ER 30 mg Tablet 15 MG PO (20:16)
[2021-06-24] VITALS (14 sets, daily range): BP systolic 108–134; BP diastolic 50–64; PULSE 55–75; RESP 16–25; TEMP 36.4–36.8; O2SAT 92–100
[2021-06-24] MEDS: ipratropium-albuterol 3 mL Neb INHALATION ×4 (02:58→21:18)
--- NOTE | 2021-06-24 05:44 | PC.NURSE ---
Addendum entered by Marie Mcclain RN 06/24/21 06:03: Patient repositioned frequently by nurse and aide. Original Note: Patient rested throughout evening. No c/o pain, piña in place and patent. BP and HR soft. Patient pleasant, no needs at this time. Will report and handoff at shift change to oncoming nurse.
[2021-06-24 05:49] LABS: Basophils % 0.2 %; Hematocrit 34.6 % (37.0-47.0); Hemoglobin 10.6 g/dL (11.5-15.3); Lymphocytes # 0.7 10^3/uL (0.8-4.8); Lymphocytes % 15.8 %; Mean Corpuscular HGB Conc 30.6 g/dL (30.0-36.0); Mean Corpuscular Hemoglobin 28.6 pg (28.0-34.0); Mean Corpuscular Volume 93.3 fl (81-99); Mean Platelet Volume 10.6 fL (7.4-10.4); Monocytes # 0.4 10^3/uL (0.2-0.9); Monocytes % 8.4 %; Neutrophils # 3.49 10^3/uL (1.8-7.7); Neutrophils % 75.4 %; Nucleated Red Blood Cells % 0 %; Platelet Count 104 10^3/cmm (130-400); Red Blood Count 3.71 10^6/uL (4.1-5.3); Red Cell Distribution Width 15.2 % (12.1-15.1); White Blood Count 4.6 10^3/uL (4.0-10.0)
[2021-06-24 06:10] LABS: INR 3.44 (0.8-1.2)
[2021-06-24 06:17] LABS: Alanine Aminotransferase < 5 U/L (0-33); Albumin Level 3.3 g/dL (3.5-5.2); Alkaline Phosphatase 83 IU/L (35-105); Aspartate Amino Transferase 12 U/L (0-32); Blood Urea Nitrogen 20 mg/dL (8-23); Calcium 8.7 mg/dL (8.5-10.5); Chloride 99 mmol/L (98-107); Globulin 2.6 g/dL (1.3-4.6); Glucose 134 mg/dL (65-115); Osmolality Calculated 305 mOsm/kg (285-295); Sodium 145 mmol/L (136-145); Total Bilirubin 0.7 mg/dL (0.15-1.2); Total Protein 5.9 g/dL (6.6-8.7)
[2021-06-24 06:41] LABS: Anion Gap 5.9 (5-19); Carbon Dioxide 44 mmol/L (22-29); Potassium 3.9 mmol/L (3.5-5.1)
[2021-06-24] MEDS: budesonide 0.5 mg/2 mL Neb INHALATION ×2 (07:56→21:17)
[2021-06-24] MEDS: pantoprazole DR 40 mg Tablet PO (08:12)
[2021-06-24] MEDS: lisinopril 2.5 mg Tablet PO (08:12)
[2021-06-24] MEDS: carvedilol 6.25 mg Tablet PO ×2 (08:12→17:10)
[2021-06-24] MEDS: atorvastatin 40 mg Tablet PO (08:12)
[2021-06-24] MEDS: fluoxetine 10 mg Capsule PO (08:12)
[2021-06-24] MEDS: isosorbide mononitrate ER 30 mg Tablet 15 MG PO ×2 (08:12→20:30)
[2021-06-24] MEDS: levothyroxine 50 mcg Tablet PO (08:13)
[2021-06-24] MEDS: levofloxacin-dextrose 5 % 750 MG/150 ML PREMIX 100 MG IV (14:14)
[2021-06-24] MEDS: FUROsemide 10 mg/mL SDV 10mL 60 MG IVP (14:16)
--- NOTE | 2021-06-24 14:53 | PM.PN ---
Subjective Subjective: Interval history: Iris feels like she is better today. No chest pain. Shortness of breath is not as severe. Medications: Reviewed: Yes Vitals/I&O/Wt Last Vital Signs Temp 97.5 F L 06/24/21 12:00 Pulse 60 06/24/21 14:25 Resp 20 H 06/24/21 14:20 BP 119/50 06/24/21 12:00 Pulse Ox 98 06/24/21 14:20 06/23/21 06/24/21 06/24/21 22:59 06:59 14:59 Intake Total 150 / 150 Balance 150 / 150 Weight last 48 hrs Weight 58.06 kg Weight 61.235 kg Physical Exam Narrative: EXAM NARRATIVE: General exam is a white female, conversant and pleasant Neck is supple no lymphadenopathy thyromegaly Cardiovascular regular rate and rhythm with a click Abdomen is soft with positive bowel sounds Extremities a few faint wheezes. Diminished breath sounds are noted bilaterally Abdomen is soft, positive bowel sounds Extremities no cyanosis clubbing or edema Urinary Catheter Management^: Lam: Cath Placed During This Visit: yes Reason for Continuing Indwelling Catheter: Acute Urinary Retention or Obstruction Urinary Catheter Date of Insertion: 06/23/21 Urinary Catheter Time of Insertion: 17:00 Data : 06/24/21 05:31 06/24/21 05:31 A&P Assessment and plan (1) Acute on chronic respiratory failure with hypercapnia: Consistent with COPD exacerbation Change to p.o. steroids Continue Levaquin IV Continue pulmonary toilet, budesonide as well as albuterol and Atrovent Change to oral diuretics Try to continue BiPAP at night, as needed during the day Covid PCR negative Status: Acute (2) Restrictive lung disease: Status: Acute (3) COPD (chronic obstructive pulmonary disease): Status: Acute Qualifiers: COPD type: chronic bronchitis Chronic bronchitis type: unspecified Qualified Code(s): J42 - Unspecified chronic bronchitis (4) Pulmonary hypertension: Status: Acute (5) Heart failure: Status: Acute Qualifiers: Heart failure type: diastolic Heart failure chronicity: chronic Qualified Code(s): I50.32 - Chronic diastolic (congestive) heart failure Additional A&P Information Pneumonia, IV Levaquin Acute diastolic heart failure. Improved. Convert to p.o. diuretic A. fib: Currently well controlled. Continue carvedilol On chronic anticoagulation with warfarin for mitral valve replacement. Continue Coumadin at 3 mg p.o. daily. Pharmacy to manage INR Attestations Medical Necessity Statement*: Needs continued hospitalization for close monitoring secondary to COPD exacerbation and further treatment of heart failure with conversion of IV diuretic to p.o. Coding Level of Care Code Acute Pickers Material Handlers for g Fwd Diagnoses Acute on chronic respiratory failure with hypercapnia J96.22 Restrictive lung disease J98.4 COPD (chronic obstructive pulmonary disease) J42 COPD type: chronic bronchitis Chronic bronchitis type: unspecified Pulmonary hypertension I27.20 Heart failure I50.32 Heart failure type: diastolic Heart failure chronicity: chronic
[2021-06-24 18:04] LABS: Glucose Point of Care 195 mg/dL (70-110)
[2021-06-25] VITALS (19 sets, daily range): BP systolic 105–149; BP diastolic 60–75; PULSE 55–94; RESP 14–22; TEMP 36.1–37.1; O2SAT 95–100
[2021-06-25] MEDS: ipratropium-albuterol 3 mL Neb INHALATION ×4 (03:00→20:15)
[2021-06-25 05:28] LABS: Hematocrit 34.7 % (37.0-47.0); Hemoglobin 10.8 g/dL (11.5-15.3); Lymphocytes # 0.8 10^3/uL (0.8-4.8); Lymphocytes % 18.2 %; Mean Corpuscular HGB Conc 31.1 g/dL (30.0-36.0); Mean Corpuscular Hemoglobin 29.3 pg (28.0-34.0); Mean Corpuscular Volume 94.3 fl (81-99); Mean Platelet Volume 10.5 fL (7.4-10.4); Monocytes # 0.5 10^3/uL (0.2-0.9); Monocytes % 11.7 %; Neutrophils # 3.11 10^3/uL (1.8-7.7); Neutrophils % 69.9 %; Nucleated Red Blood Cells % 0 %; Platelet Count 110 10^3/cmm (130-400); Red Blood Count 3.68 10^6/uL (4.1-5.3); Red Cell Distribution Width 15.5 % (12.1-15.1); White Blood Count 4.5 10^3/uL (4.0-10.0)
[2021-06-25 05:40] LABS: INR 2.69 (0.8-1.2)
[2021-06-25 05:47] LABS: Anion Gap 5.2 (5-19); Blood Urea Nitrogen 21 mg/dL (8-23); Calcium 8.5 mg/dL (8.5-10.5); Chloride 97 mmol/L (98-107); Glucose 117 mg/dL (65-115); Osmolality Calculated 302 mOsm/kg (285-295); Potassium 3.2 mmol/L (3.5-5.1); Sodium 144 mmol/L (136-145)
[2021-06-25 06:42] LABS: Carbon Dioxide 45 mmol/L (22-29)
[2021-06-25] MEDS: budesonide 0.5 mg/2 mL Neb INHALATION ×2 (08:10→20:15)
[2021-06-25] MEDS: pantoprazole DR 40 mg Tablet PO (08:35)
[2021-06-25] MEDS: levothyroxine 50 mcg Tablet PO (08:35)
[2021-06-25] MEDS: lisinopril 2.5 mg Tablet PO (08:36)
[2021-06-25] MEDS: predniSONE 20 mg Tablet 60 MG PO (08:36)
[2021-06-25] MEDS: atorvastatin 40 mg Tablet PO (08:36)
[2021-06-25] MEDS: bumetanide 1 mg Tablet 2 MG PO (08:36)
[2021-06-25] MEDS: fluoxetine 10 mg Capsule PO (08:36)
[2021-06-25] MEDS: isosorbide mononitrate ER 30 mg Tablet 15 MG PO ×2 (08:36→21:21)
[2021-06-25] MEDS: potassium chloride ER 20 mEq Tablet 40 MEQ PO ×2 (10:26→13:26)
--- NOTE | 2021-06-25 13:41 | P.PN_ITS ---
Subjective Subjective: Interval history: Iris reports she feels pretty good today. No particular concerns. Medications: Reviewed: Yes Vitals/I&O/Wt Last Vital Signs Temp 98.7 F 06/25/21 11:59 Pulse 56 L 06/25/21 11:59 Resp 22 H 06/25/21 11:59 BP 122/66 06/25/21 11:59 Pulse Ox 99 06/25/21 11:59 06/24/21 06/25/21 06/25/21 22:59 06:59 14:59 Intake Total 150 / 150 80 / 230 240 / 240 Output Total 1600 / 1600 500 / 2100 Balance -1450 / -1450 -420 / -1870 240 / 240 Weight last 48 hrs Weight 58.06 kg Physical Exam Narrative: EXAM NARRATIVE: General exam is a white female, conversant and pleasant. Currently off BiPAP Neck is supple no lymphadenopathy thyromegaly Cardiovascular regular rate and rhythm with a click Abdomen is soft with positive bowel sounds Extremities a few faint wheezes. Diminished breath sounds are noted bilaterally Abdomen is soft, positive bowel sounds Extremities no cyanosis clubbing or edema Urinary Catheter Management^: Lam: Cath Placed During This Visit: yes Reason for Continuing Indwelling Catheter: Acute Urinary Retention or Obstruction Urinary Catheter Date of Insertion: 06/23/21 Urinary Catheter Time of Insertion: 17:00 Data : 06/25/21 05:00 06/25/21 05:00 A&P Assessment and plan (1) Acute on chronic respiratory failure with hypercapnia: Consistent with COPD exacerbation Currently on p.o. steroids Continue Levaquin IV Continue pulmonary toilet, budesonide as well as albuterol and Atrovent Currently on oral diuretics Try to continue BiPAP at night, as needed during the day. We will try to set up BiPAP at the nursing facility where she will go. Covid PCR negative Status: Acute (2) Restrictive lung disease: Status: Acute (3) COPD (chronic obstructive pulmonary disease): Status: Acute Qualifiers: COPD type: chronic bronchitis Chronic bronchitis type: unspecified Qualified Code(s): J42 - Unspecified chronic bronchitis (4) Pulmonary hypertension: Status: Acute (5) Heart failure: Status: Acute Qualifiers: Heart failure type: diastolic Heart failure chronicity: chronic Qualified Code(s): I50.32 - Chronic diastolic (congestive) heart failure Additional A&P Information Pneumonia, IV Levaquin Acute diastolic heart failure. Improved. Convert to p.o. diuretic Hypokalemia, supplement A. fib: Currently well controlled. Continue carvedilol. Dose held this morning secondary to bradycardia. Lower dose overall. On chronic anticoagulation with warfarin for mitral valve replacement. Pharmacy to manage INR Attestations Medical Necessity Statement*: Needs continued hospital stay for COPD exacerbation close monitoring pending placement. Coding Level of Care Code Acute Set Off Press Operator for [facility] Fwd Diagnoses Acute on chronic respiratory failure with hypercapnia J96.22 Restrictive lung disease J98.4 COPD (chronic obstructive pulmonary disease) J42 COPD type: chronic bronchitis Chronic bronchitis type: unspecified Pulmonary hypertension I27.20 Heart failure I50.32 Heart failure type: diastolic Heart failure chronicity: chronic
--- NOTE | 2021-06-25 14:17 | PC.CHAP ---
Pastoral Care Encounter/Spiritual Assessment Type of Contact [] Declined observation nurse visit [] Patient/Family/Request visit [] Outpatient visit [] Follow-up visit [] Physician referral [] Code/Alert [xx] Routine visit [] Staff referral [] Actively dying [] Patient sleeping [] Family support [] [] Out of room [] Palliative care [] [] Receiving care in room [] Pre-surgical visit [] Trauma [] Long length of stay [] ICU visit [] Other: Relational/Emotional Strength [xx] Patient feels connected with others/family/visitors/staff [] Distress [] Loneliness/isolation [] Abandonment Spirituality of Patient [xx] Person of Vivian [] Attends Moravian of their Vivian [xx] Believes in Prayer [] Reads Bible or Anabaptist materials [] There are Spiritual issues to be addressed Lye Treater Interventions [xx] Prayer [xx] Active listening [xx] Non-anxious presence [] Spiritual/emotional support [] Crisis/trauma care [] Spiritual counseling [] Bereavement support [] Provided bereavement packet [] Provided Bible/devotional materials [] Provided toy/stuffed animal, coloring book to patient or family member [] Provided Communion [] Anointing/[place] [] Salvation [xx] Completed spiritual assessment [] Other: Impact on Illness or Injury [] Angry [] Fearful [] Anxious [] Often cries [] Exhaustion [] Unable to work [] Unable to attend druze [] Unable to walk/stand [] Unable to read [] Unable to drive [] Unable to eat/drink [] Unable to sleep [] Unable to be with family [] Patient intubated [] Other: Summary Patient stated she feels better but can't sleep. Time spent with patient 3 minutes
[2021-06-25] MEDS: warfarin 3 mg Tablet PO (16:24)
[2021-06-25] MEDS: levofloxacin-dextrose 5 % 750 MG/150 ML PREMIX 100 MG IV (16:24)
[2021-06-25] MEDS: carvedilol 3.125 mg Tablet PO (17:49)
[2021-06-26] VITALS (13 sets, daily range): BP systolic 102–146; BP diastolic 58–81; PULSE 52–88; RESP 16–20; TEMP 36.7–37.5; O2SAT 97–100
[2021-06-26 07:18] LABS: INR 2.15 (0.8-1.2)
[2021-06-26 07:35] LABS: Anion Gap 5.9 (5-19); Blood Urea Nitrogen 20 mg/dL (8-23); Calcium 8.4 mg/dL (8.5-10.5); Chloride 102 mmol/L (98-107); Glucose 107 mg/dL (65-115); Magnesium 2.2 mg/dL (1.7-2.3); Osmolality Calculated 305 mOsm/kg (285-295); Potassium 3.9 mmol/L (3.5-5.1); Sodium 146 mmol/L (136-145)
--- NOTE | 2021-06-26 07:53 | PM.PN ---
Subjective Subjective: Interval history: Iris reports she is doing okay. No concerns. Breathing okay. Wore her BiPAP last night. Medications: Reviewed: Yes Vitals/I&O/Wt Last Vital Signs Temp 98.1 F 06/26/21 07:46 Pulse 66 06/26/21 07:46 Resp 16 06/26/21 07:46 BP 146/63 06/26/21 07:46 Pulse Ox 100 06/26/21 07:46 06/25/21 06/26/21 06/26/21 22:59 06:59 14:59 Intake Total 390 / 630 Output Total 1450 / 1450 1000 / 2450 Balance -1060 / -820 -1000 / -1820 Physical Exam Narrative: EXAM NARRATIVE: General exam is a white female, conversant and pleasant. Currently off BiPAP Neck is supple no lymphadenopathy thyromegaly Cardiovascular regular rate and rhythm with a click Abdomen is soft with positive bowel sounds Lungs diminished breath sounds bilaterally but no wheezing Abdomen is soft, positive bowel sounds Extremities no cyanosis clubbing or edema Urinary Catheter Management^: Lam: Cath Placed During This Visit: yes Reason for Continuing Indwelling Catheter: Accurate Measurement of Urinary Output in Critically Ill Patients Urinary Catheter Date of Insertion: 06/23/21 Urinary Catheter Time of Insertion: 17:00 Data : 06/25/21 05:00 06/26/21 06:19 A&P Assessment and plan (1) Acute on chronic respiratory failure with hypercapnia: Consistent with COPD exacerbation Currently on p.o. steroids Continue Levaquin IV. Convert to p.o. on discharge. Chest x-ray with pneumonia. Continue pulmonary toilet, budesonide as well as albuterol and Atrovent Currently on oral diuretics. Renal function stable. Try to continue BiPAP at night, as needed during the day. We will try to set up BiPAP at the nursing facility where she will go. Covid PCR negative Status: Acute (2) Restrictive lung disease: Status: Acute (3) COPD (chronic obstructive pulmonary disease): Status: Acute Qualifiers: COPD type: chronic bronchitis Chronic bronchitis type: unspecified Qualified Code(s): J42 - Unspecified chronic bronchitis (4) Pulmonary hypertension: Status: Acute (5) Heart failure: Status: Acute Qualifiers: Heart failure type: diastolic Heart failure chronicity: chronic Qualified Code(s): I50.32 - Chronic diastolic (congestive) heart failure Additional A&P Information Pneumonia, IV Levaquin Acute diastolic heart failure. Improved. Compensated on p.o. diuretic Hypokalemia, supplement A. fib: Currently well controlled. Continue carvedilol dose lowered secondary to bradycardia On chronic anticoagulation with warfarin for mitral valve replacement. Pharmacy to manage INR Attestations Medical Necessity Statement*: Needs continued hospitalization for IV antibiotics for pneumonia pending placement for rehabilitation. Coding Level of Care Code Acute Glucose And Syrup Weigher for [facility] Fwd Diagnoses Acute on chronic respiratory failure with hypercapnia J96.22 Restrictive lung disease J98.4 COPD (chronic obstructive pulmonary disease) J42 COPD type: chronic bronchitis Chronic bronchitis type: unspecified Pulmonary hypertension I27.20 Heart failure I50.32 Heart failure type: diastolic Heart failure chronicity: chronic
[2021-06-26 07:58] LABS: Carbon Dioxide 42 mmol/L (22-29)
--- NOTE | 2021-06-26 08:38 | PC.SOCIAL ---
IM follow up reviewed and copy provided no questions voiced.
[2021-06-26] MEDS: pantoprazole DR 40 mg Tablet PO (09:08)
[2021-06-26] MEDS: lisinopril 2.5 mg Tablet PO (09:08)
[2021-06-26] MEDS: predniSONE 20 mg Tablet 60 MG PO (09:08)
[2021-06-26] MEDS: carvedilol 3.125 mg Tablet PO ×2 (09:08→17:32)
[2021-06-26] MEDS: levothyroxine 50 mcg Tablet PO (09:08)
[2021-06-26] MEDS: atorvastatin 40 mg Tablet PO (09:08)
[2021-06-26] MEDS: fluoxetine 10 mg Capsule PO (09:08)
[2021-06-26] MEDS: bumetanide 1 mg Tablet 2 MG PO (09:09)
[2021-06-26] MEDS: isosorbide mononitrate ER 30 mg Tablet 15 MG PO ×2 (09:13→21:30)
[2021-06-26] MEDS: budesonide 0.5 mg/2 mL Neb INHALATION ×2 (10:14→20:16)
[2021-06-26] MEDS: ipratropium-albuterol 3 mL Neb INHALATION ×3 (10:15→20:16)
[2021-06-26] MEDS: levofloxacin-dextrose 5 % 750 MG/150 ML PREMIX 100 MG IV (12:00)
[2021-06-26] MEDS: warfarin 2 mg Tablet 4 MG PO (14:00)
[2021-06-26] MEDS: bumetanide 1 mg Tablet PO (15:30)
--- NOTE | 2021-06-26 19:52 | P.DS_ITS ---
Discharge Providers Date of Admission: 06/23/21 00:15 Date of Discharge: June 26, 2021 Attending Provider at Admission: Hellen Gallo MD Attending Provider at Discharge: Anastacio Saab MD Primary Care Provider: Michael Hampton DO Diagnoses at Discharge Discharge Diagnosis (1) Acute on chronic respiratory failure with hypercapnia: Status: Acute (2) Restrictive lung disease: Status: Acute (3) COPD (chronic obstructive pulmonary disease): Status: Acute Qualifiers: COPD type: chronic bronchitis Chronic bronchitis type: unspecified Qualified Code(s): J42 - Unspecified chronic bronchitis (4) Pulmonary hypertension: Status: Acute (5) Heart failure: Status: Acute Qualifiers: Heart failure chronicity: chronic Heart failure type: diastolic Qualified Code(s): I50.32 - Chronic diastolic (congestive) heart failure Reason for Visit Reason for Visit: Hypercapneic respiratory failure Hospital Course Hospital Course Iris presented to the hospital short of breath and hypoxic. She was put on BIPAP in the ED secondary to this and found to have a COPD exacerbation, Diastolic CHF exacerbation, and pneumonia. She was given IV diuretic, steroids, and antibiotic. She was weaned off BIPAP quickly and as improvement continued to occur changed to oral steroids. By the end of her hospital stay she was feeling back to her baseline. She realized she had significant weakness and was amenable to skilled placement. She will transition there 06/27. She should wear oxygen 2 l at all times, and transition to BIPAP when sleeing and if needed for shortness of breath. She will finish up a course of steroid as well as antibiotic. A Covid PCR was completed on her during her hospital stay, which was negative. Physical Exam Narrative: EXAM NARRATIVE: General exam is a white female, conversant and pleasant. Currently off BiPAP Neck is supple no lymphadenopathy thyromegaly Cardiovascular regular rate and rhythm with a click Abdomen is soft with positive bowel sounds Lungs diminished breath sounds bilaterally but no wheezing Abdomen is soft, positive bowel sounds Extremities no cyanosis clubbing or edema Urinary Catheter Management^: Lam: Cath Placed During This Visit: yes Reason for Continuing Indwelling Catheter: Acute Urinary Retention or Obstruction Urinary Catheter Date of Insertion: 06/23/21 Urinary Catheter Time of Insertion: 17:00 Discharge Data Data Completed and Pending: Completed Studies During Hospitalization Category Date Time Status CT head wo con* 7 0450 Urgent Cat Scan 06/22/21 16:36 Completed XR chest 1V mary ble [id number] Urgent Exams 06/22/21 16:25 Completed Pending at discharge Category Date Time Status Basic Metabolic P kemi AM LABS Lab 06/27/21 04:00 Ordered Complete Blood Co unt w/Auto AM LABS Lab 06/27/21 04:00 Ordered Prothrombin Time INR AM LABS Lab 06/27/21 04:00 Ordered Labs from last 24 hours 06/26/21 06/26/21 06:19 06:19 PT 24.40 H INR 2.15 H Sodium 146 H Potassium 3.9 Chloride 102 Carbon Dioxide 42 H* Anion Gap 5.9 BUN 20 Creatinine 0.6 GFR Calculation Not Reportable Glucose 107 Calculated Osmolal ity 305 H Calcium 8.4 L Magnesium 2.2 Vitals: Last Vital Signs Temp 99.5 F 06/26/21 19:35 Pulse 88 06/26/21 19:35 Resp 18 06/26/21 19:35 BP 114/58 06/26/21 19:35 Pulse Ox 98 06/26/21 19:35 Discharge Plan Discharge Patient Disposition: Xfer SNF Condition: Stable Prescriptions: New bumetanide 1 mg Tablet 1 mg PO DAILY@1600 Qty: 30 RF: 0 levofloxacin 750 mg tablet 750 mg PO DAILY 5 Days Qty: 5 RF: 0 prednisone 20 mg tablet 20 mg PO BID 5 Days Qty: 10 RF: 0 ipratropium-albuterol 0.5 mg-3 mg(2.5 mg base)/3 mL Solution For Nebulization 3 ml inhalation Q6H.RESPIRATORY Qty: 270 RF: 0 warfarin [Jantoven] 3 mg Tablet 3 mg PO DAILY@1400 Qty: 30 RF: 0 bumetanide 1 mg Tablet 2 mg PO DAILY Qty: 60 RF: 0 carvedilol 3.125 mg Tablet 3.125 mg PO BID Qty: 60 RF: 0 Continued fluoxetine 10 mg capsule 10 mg PO DAILY@09 RF: 0 carbidopa-levodopa 10-100 mg tablet,disintegrating 1 tab PO TID@,, RF: 0 levothyroxine 50 mcg capsule 50 mcg PO DAILY@ RF: 0 tolterodine 2 mg tablet 2 mg PO BID@ RF: 0 lisinopril 2.5 mg tablet 2.5 mg PO DAILY Qty: 30 RF: 6 tramadol 50 mg Tablet 50 mg PO Q6H PRN (Reason: Pain) RF: 0 cholecalciferol (vitamin D3) [Vitamin D3] 25 mcg (1,000 unit) Capsule 25 mcg PO DAILY@0900 Qty: 0 RF: 0 nitroglycerin 0.4 mg Tablet, Sublingual 0.4 mg SUBLINGUAL Q5M PRN (Reason: Chest Pain) RF: 0 rosuvastatin 10 mg tablet 10 mg PO DAILY@0900 RF: 0 fluticasone propion-salmeterol [Advair Diskus] 250-50 mcg/dose blister with device 1 inh inhalation BID@899,2099 RF: 0 polyethylene glycol 3350 [Miralax] 17 gram powder in packet 17 g PO DAILY@899 PRN (Reason: Constipation) RF: 0 isosorbide mononitrate 30 mg Tablet Extended Release 24 Hr 15 mg PO BID@899,2099 RF: 0 albuterol sulfate 90 mcg/actuation Hfa Aerosol Inhaler 1 inh INHALATION Q6H MDD SEE PHARMACY COMMENT PRN (Reason: Shortness Of Breath) RF: 0 nystatin [Nystop] 100,000 unit/gram Powder 1 applic topical BID PRN (Reason: rash) Qty: 60 RF: 0 potassium chloride [Klor-Con 10] 10 mEq tablet extended release 20 meq PO BID@ RF: 0 ferrous gluconate 324 mg (37.5 mg iron) tablet 324 mg PO BID@ RF: 0 sennosides-docusate sodium 8.6-50 mg tablet 2 tab PO BID PRN (Reason: Constipation) RF: 0 pantoprazole 40 mg tablet,delayed release (DR/EC) 40 mg PO BID@899,2099 RF: 0 Discontinued metolazone 2.5 mg tablet 2.5 mg PO .COMPLEX 30 Days Qty: 15 RF: 1 warfarin 3 mg tablet 3 mg PO DIRECTED Qty: 30 RF: 3 Spiriva Respimat 1.25 mcg/actuation mist 2 inh inhalation Q24H Qty: 4 RF: 0 bumetanide 1 mg tablet 3 mg PO DIRECTED RF: 0 carvedilol 6.25 mg tablet 6.25 mg PO BID RF: 0 metoprolol tartrate 25 mg Tablet 12.5 mg PO DAILY RF: 0 Discharge Orders: Discharge Order (Routine); Ordered 06/27/21 Ordered By: Anastacio Saab Discharge Diet: Cardiac Discharge Activity: Increase activity as tolerated Patient Instructions: Opioid Safety Activity Restrictions/Additional Instructions: Continue 2 L of oxygen per nasal cannula Wear BiPAP at night always, during the day as needed Monitor weight daily. If it increases greater than 3 pounds of baseline 2 days in a row call primary care provider. Follow up with PCP at facility in 3-4 days with BMP, CBC, INR Discharge Attestations Time Spent in Discharge Care*: greater than 30 min Status at Discharge: Cognitive status at discharge: cognitively intact , Behavioral status at discharge: cooperative , Quality Metrics Clinical Quality Measures During this hospital stay, did patient experience: None Coding Level of Care Code Acute Chg FW DC note Diagnoses Acute on chronic respiratory failure with hypercapnia J96.22 Restrictive lung disease J98.4 COPD (chronic obstructive pulmonary disease) J42 COPD type: chronic bronchitis Chronic bronchitis type: unspecified Pulmonary hypertension I27.20 Heart failure I50.32 Heart failure chronicity: chronic Heart failure type: diastolic
[2021-06-27] VITALS (7 sets, daily range): BP systolic 117–130; BP diastolic 55–71; PULSE 55–74; RESP 16–25; TEMP 36.4–37; O2SAT 91–100
[2021-06-27] MEDS: ipratropium-albuterol 3 mL Neb INHALATION ×2 (02:40→09:05)
[2021-06-27 05:50] LABS: Eosinophils % 0.2 %; Hematocrit 38.6 % (37.0-47.0); Hemoglobin 11.9 g/dL (11.5-15.3); Lymphocytes % 19.8 %; Mean Corpuscular HGB Conc 30.8 g/dL (30.0-36.0); Mean Corpuscular Hemoglobin 28.7 pg (28.0-34.0); Mean Corpuscular Volume 93.2 fl (81-99); Mean Platelet Volume 10.4 fL (7.4-10.4); Monocytes # 0.6 10^3/uL (0.2-0.9); Monocytes % 11.9 %; Neutrophils # 3.44 10^3/uL (1.8-7.7); Neutrophils % 67.9 %; Nucleated Red Blood Cells % 0 %; Platelet Count 111 10^3/cmm (130-400); Red Blood Count 4.14 10^6/uL (4.1-5.3); Red Cell Distribution Width 15.6 % (12.1-15.1); White Blood Count 5.1 10^3/uL (4.0-10.0)
[2021-06-27 06:05] LABS: INR 2.68 (0.8-1.2)
[2021-06-27 06:39] LABS: Anion Gap 7.4 (5-19); Blood Urea Nitrogen 23 mg/dL (8-23); Calcium 8.4 mg/dL (8.5-10.5); Carbon Dioxide 40 mmol/L (22-29); Chloride 99 mmol/L (98-107); Glucose 111 mg/dL (65-115); Osmolality Calculated 300 mOsm/kg (285-295); Potassium 3.4 mmol/L (3.5-5.1); Sodium 143 mmol/L (136-145)
--- NOTE | 2021-06-27 07:39 | PM.PN ---
Subjective Subjective: Interval history: Please see discharge summary from 06/26. She is unhappy that this morning she could not take her morning bath, however, she otherwise is doing well, she denies chest pain or pressure. She denies any trouble breathing, currently on room air. Vitals/I&O/Wt Last Vital Signs Temp 97.6 F 06/27/21 04:00 Pulse 66 06/27/21 04:00 Resp 25 H 06/27/21 04:00 BP 130/71 06/27/21 04:00 Pulse Ox 100 06/27/21 04:00 06/26/21 06/27/21 06/27/21 22:59 06:59 14:59 Intake Total 120 / 510 Output Total 1775 / 1775 Balance 120 / 510 -1775 / -1265 Physical Exam Const: COMMON NORMALS: no acute distress and patient oriented x3 GENERAL APPEARANCE: frail appearing HENMT: COMMON NORMALS: oropharynx normal Neck/C-Spine: COMMON NORMALS: no JVD Resp: COMMON NORMALS: normal respiratory effort and clear to auscultation bilaterally AUSCULTATION: clear to auscultation bilaterally Cardio: COMMON NORMALS: no JVD, S1 normal heart sound present, S2 normal heart sound present and No murmurs present (Cardio) RHYTHM: abnormal rhythm irregularly irregular HEART SOUNDS: S1 normal heart sound present and S2 normal heart sound present GI: COMMON NORMALS: Normal to inspection, nondistended, normoactive bowel sounds present, Soft to palpation and non-tender PALPATION: Yes Soft to palpation Extremity: COMMON NORMALS: no joint enlargement and no pedal edema Neuro: COMMON NORMALS: patient oriented x3 and moves all extremities Skin: GENERAL SKIN EXAM: ecchymosis OTHER: Chronic hemosiderosis BL LE Urinary Catheter Management^: Lam: Cath Placed During This Visit: yes Reason for Continuing Indwelling Catheter: Acute Urinary Retention or Obstruction Urinary Catheter Date of Insertion: 06/23/21 Urinary Catheter Time of Insertion: 17:00 Data : 06/27/21 04:39 06/27/21 04:39 A&P Assessment and plan (1) Acute on chronic respiratory failure with hypercapnia: Consistent with COPD exacerbation Completing short course of steroid with prednisone. Complete Levaquin course. Continue pulmonary toilet, budesonide as well as albuterol and Atrovent Continue oral diuretics. Currently appears compensated. BiPAP at night, as needed during the day. Otherwise 2 L nasal cannula. Status: Acute (2) Restrictive lung disease: Status: Acute (3) COPD (chronic obstructive pulmonary disease): Status: Acute Qualifiers: COPD type: chronic bronchitis Chronic bronchitis type: unspecified Qualified Code(s): J42 - Unspecified chronic bronchitis (4) Pulmonary hypertension: Status: Acute (5) Heart failure: Status: Acute Qualifiers: Heart failure chronicity: chronic Heart failure type: diastolic Qualified Code(s): I50.32 - Chronic diastolic (congestive) heart failure Additional A&P Information Pneumonia: Complete course with oral Levaquin Acute diastolic heart failure. Currently appears compensated on p.o. diuretic Hypokalemia, supplement A. fib: Currently well controlled. Continue carvedilol dose lowered secondary to bradycardia. Continue warfarin. On chronic anticoagulation with warfarin for mitral valve replacement. Attestations Medical Necessity Statement*: Discharging to custodial facility. Coding Level of Care Code Acute Meter Engineer for [facility] Fwd Exam Comprehensive Diagnoses Acute on chronic respiratory failure with hypercapnia J96.22 Restrictive lung disease J98.4 COPD (chronic obstructive pulmonary disease) J42 COPD type: chronic bronchitis Chronic bronchitis type: unspecified Pulmonary hypertension I27.20 Heart failure I50.32 Heart failure chronicity: chronic Heart failure type: diastolic
[2021-06-27] MEDS: pantoprazole DR 40 mg Tablet PO (08:05)
[2021-06-27] MEDS: carvedilol 3.125 mg Tablet PO (08:05)
[2021-06-27] MEDS: levothyroxine 50 mcg Tablet PO (08:05)
[2021-06-27] MEDS: atorvastatin 40 mg Tablet PO (08:05)
[2021-06-27] MEDS: potassium chloride ER 20 mEq Tablet PO (08:06)
[2021-06-27] MEDS: lisinopril 2.5 mg Tablet PO (08:06)
[2021-06-27] MEDS: isosorbide mononitrate ER 30 mg Tablet 15 MG PO (08:06)
[2021-06-27] MEDS: fluoxetine 10 mg Capsule PO (08:06)
[2021-06-27] MEDS: predniSONE 20 mg Tablet 60 MG PO (08:06)
[2021-06-27] MEDS: budesonide 0.5 mg/2 mL Neb INHALATION (09:05)
== END 2021-06-27 10:14 | disposition skilled nursing facility (03) | DRG 189 ==
LOC: ER 23:35 → ER IP 06-23 07:14 → MEDSURG 06-23 13:33
PROVIDERS: Internal Medicine; Admitting Provider Student in an Organized Health Care Education/Training Program; Emergency Provider Emergency Medicine; PCP Family Medicine; Visit Provider Internal Medicine
DX: J96.22 Acute and chronic respiratory failure with hypercapnia (principal); J18.9 Pneumonia, unspecified organism; I50.33 Acute on chronic diastolic (congestive) heart failure; J44.1 Chronic obstructive pulmonary disease with (acute) exacerbation; J96.11 Chronic respiratory failure with hypoxia; I27.20 Pulmonary hypertension, unspecified; I48.91 Unspecified atrial fibrillation; K21.9 Gastro-esophageal reflux disease without esophagitis; G47.33 Obstructive sleep apnea (adult) (pediatric); I11.0 Hypertensive heart disease with heart failure; J98.4 Other disorders of lung; E87.6 Hypokalemia; I25.10 Atherosclerotic heart disease of native coronary artery without angina pectoris; E03.9 Hypothyroidism, unspecified; G20 Parkinson's disease; Z90.49 Acquired absence of other specified parts of digestive tract; Z98.51 Tubal ligation status; Z96.652 Presence of left artificial knee joint; Z82.49 Family history of ischemic heart disease and other diseases of the circulatory system; Z83.3 Family history of diabetes mellitus; Z87.891 Personal history of nicotine dependence; Z79.01 Long term (current) use of anticoagulants; Z79.890 Hormone replacement therapy; Z79.52 Long term (current) use of systemic steroids; Z20.822 Contact with and (suspected) exposure to COVID-19
CPT/HCPCS: 36415; 36416; 36600; 51702; 70450; 71045; 80048; 80053; 81001; 82803; 82962; 83735; 84145; 84443; 84484; 85025; 85610; 87426; 87635; 93005; 94640; 94660; 96365; 96366; 96367; 96375; 96376; 97110; 97161; 97530; 99291; J0696; J1940; J1956; J2920; J2930; J3480; J3490; J7512; J7626

== ENCOUNTER 2021-07-23 16:43 | Outpatient (CLI) | payer MEDICARE, MEDICAID, SELFPAY ==
[2021-07-23 19:13] LABS: INR 5.22 (0.8-1.2)
== END 2021-07-23 16:44 | disposition home or self-care (01) ==
PROVIDERS: PCP Family Medicine; Visit Provider Internal Medicine Cardiovascular Disease
DX: I48.11 Longstanding persistent atrial fibrillation (principal); Z79.01 Long term (current) use of anticoagulants
CPT/HCPCS: 85610

== ENCOUNTER 2021-07-28 13:48 | Inpatient (IN) | payer MEDICARE, MEDICAID, SELFPAY ==
[2021-07-28] VITALS (13 sets, daily range): BP systolic 88–155; BP diastolic 34–85; PULSE 69–89; RESP 18–28; TEMP 36.2–37.3; O2SAT 90–100; BMI 25.7; BMI 23.6
--- NOTE | 2021-07-28 14:27 | XR_ITS ---
WS: [id number] PORTABLE CHEST HISTORY: dyspnea/cough COMPARISON: 06/22/2021 Status post CABG. Cardiac valve replacement. No fluid overload or pneumonia. No pleural effusion or pneumothorax. Cardiac size: Mildly enlarged cardiac silhouette. Mediastinum/Aorta: Mild atherosclerosis aorta. Scoliosis and osteopenia. XR/XR chest 1V portable [id number] IMPRESSION: Stable chest with no acute cardiopulmonary findings.
--- NOTE | 2021-07-28 14:28 | ECG_ITS ---
[facility] Test Date: 2021-07-28 Pat Name: Iris Garcia Department: Room: Gender: Female Condenser Cleaner: : 1940 Requested By: Emile Perla Order Number: [id number] Krupa MD: Santos Adorno M.D. Measurements Intervals [place] Rate: 73 P: [place]: QRS: 50 QRSD: 101 T: 19 QT: 406 QTc: 450 Interpretive Statements Regular SUPRAVENTRICULAR RHYTHM MINIMAL ST DEPRESSION [0.025+ mV ST DEPRESSION] ABNORMAL RHYTHM ECG INTERPRETATION BASED ON A DEFAULT AGE OF 40 YEARS Compared to ECG 06/22/2021 16:30:00 Supraventricular rhythm now present ST (T wave) deviation now present Atrial fibrillation no longer present Electronically Signed On 07-28-2021 21:34:46 CDT by Santos Adorno M.D. [email or web address]
--- NOTE | 2021-07-28 14:31 | ED_ITS ---
HPI - SOB/Dyspnea General: Chief Complaint: Shortness of Breath/Dyspnea Stated Complaint: LOW O2; FATIGUE; CONFUSION Time Seen by Provider: 07/28/21 14:07 History of Present Illness: HPI Narrative: 80-year-old female presents to the emergency room by private vehicle with a complaint of fatigue acute confusion and hypoxia. Patient was recently hospitalized for COPD respiratory hypercapnic respiratory failure and restrictive lung disease as well as congestive heart failure. She was discharged to the longterm where she was on oxygen supposed to be using a trilogy machine. According to the granddaughter she did not use it very often she was recently discharged from the longterm to home they found her oxygen sats to be low she had been weaned off of oxygen while she is at the hospital they restarted on her oxygen attempted to use the Trelegy but she has not been using it regularly. She presents here on 2 L by nasal cannula she is confused and disoriented attempted to get her to tell me some of her history she cannot really tell me much at all granddaughter provided most of the history. Patient herself denied any chest pain or discomfort. Also notes she is on Coumadin due to a prosthetic mitral valve. Previous hospitalization notes and pulmonology notes reviewed. MD elicited complaint: shortness of breath Pertinent past history: COPD, congestive heart failure and other (Restrictive lung disease) Onset (ago): week(s) Context: recent illness Timing: constant Severity: moderate Exacerbating factors: exertion and coughing Relieving factors: oxygen and rest Known history of: COPD and congestive heart failure Associated symptoms: Reports cough; Deny abdominal pain, chest congestion, chest pain, diaphoresis, dizziness, extremity pain, fever(s), hemoptysis, myalgias, nausea, orthopnea or palpitations Treatment prior to arrival: none Review of Systems Const: Denies: fever(s) or diaphoresis ENMT: Denies: throat pain, ear or mastoid pain, nasal discharge or nasal congestion Card: Denies: chest pain, palpitations or orthopnea Resp: Denies: hemoptysis or chest congestion GI: Denies: abdominal pain or nausea : Denies: flank pain, difficulty voiding, dysuria, urinary frequency or urinary urgency Musc: Denies: extremity pain Skin/Breast: Denies: rash or pruritus Neuro: Denies: dizziness PFSH ED PFSH: Medical History Acute exacerbation of COPD with asthma Afib Anemia -baseline Hg around 9-10 -follow with Dr Bullock CAD (coronary artery disease) Chronic anticoagulation Due to mechanical mitral valve; coumadin Chronic hypercapnic respiratory failure Depression Diastolic CHF GERD (gastroesophageal reflux disease) PPI HTN (hypertension) Hypothyroidism -continue levothyroxine Iron deficiency anemia Has required transfusion in past, last egd and colonoscopy ~2017 with diverticulosis and internal hemorrhoids, SONYA (obstructive sleep apnea) Parkinson disease Follows up with Dr. Rainey in [facility]'s ring Weakness Surgical History History of bilateral tubal ligation History of cholecystectomy History of total knee arthroplasty Left Mitral valve replaced Mechanical, on coumadin Family History Mother CAD (coronary artery disease) Diabetes Other Hypertension Social History Smoking and tobacco status: former smoker Quit status (tobacco): has quit using tobacco Year quit tobacco: 1994 PPD x 15 Years Second hand smoke exposure: No Smoking risk assessment/counseling performed?: No Alcohol intake: never Counseling given: No Counseling given: No Caregiver/support person: Yes Household members: spouse and children Housing: House Marital status: Current occupational status: retired and disabled History of recent travel: No Current gender identity: Female Physical Exam Const: COMMON NORMALS: no acute distress GENERAL APPEARANCE: cooperative and comfortable ORIENTATION/CONSCIOUSNESS: Yes awake, Yes oriented to person, Yes oriented to place and Yes oriented to time HENMT: COMMON NORMALS: normocephalic, atraumatic and hearing grossly normal bilaterally HEAD & SCALP: normocephalic and atraumatic Neck/C-Spine: COMMON NORMALS: no JVD Resp: AUSCULTATION: rhonchi and wheezes Cardio: COMMON NORMALS: no JVD and regular rhythm RHYTHM: regular rhythm HEART SOUNDS: Murmur heart sound present systolic Location: left sternal border Intensity: V/ Characteristics: other (Mechanical) GI: COMMON NORMALS: Soft to palpation and No hepatosplenomegaly present AUSCULTATION: Yes normoactive bowel sounds PALPATION: Yes Soft to palpation, No Tenderness to palpation present (GI), No Guarding due to palpation present (GI) and Yes No hepatosplenomegaly present Extremity: COMMON NORMALS: normal to inspection, capillary refill normal, no clubbing, cyanosis or edema, no calf tenderness and no pedal edema Neuro: SENSORIUM/ORIENTATION: Yes oriented to person, Yes oriented to place and Yes oriented to time Skin: COMMON NORMALS: no rashes or lesions noted GENERAL SKIN EXAM: no rashes or lesions noted Course Vital Signs: Vital signs: Vital Signs Temperature 97.9 F 07/30/21 12:00 Pulse Rate 63 07/30/21 15:51 Respiratory Rate 17 07/30/21 15:07 Blood Pressure 122/85 07/30/21 12:00 Pulse Oximetry 94 07/30/21 15:07 MDM - SOB/Dyspnea MDM Narrative: Medical decision making narrative: COPD with exacerbation of acute on chronic respiratory failure. Patient is also mildly anemic and has some mild hypernatremia. Discussed with hospitalist orders written. Lab Data: Labs: Lab Results 07/28/21 07/28/21 07/28/21 14:35 15:13 15:13 WBC 3.9 10^3/uL L 10^ 3/uL (4.0-10.0) RBC 3.38 10^6/uL L 10 ^6/uL (4.1-5.3) Hgb 9.8 g/dL L g/dL (11.5-15.3) Hct 33.2 % L % (37.0-47.0) MCV 98.2 fl fl (81-99) MCH 29.0 pg pg (28.0-34.0) MCHC 29.5 g/dL L g/dL (30.0-36.0) RDW 15.8 % H % (12.1-15.1) Plt Count 243 10^3/cmm 10^3 /cmm (130-400) MPV 9.5 fL fL (7.4-10.4) Neut % (Auto) 66.9 % % Lymph % (Auto) 19.5 % % [place] % (Auto) 11.8 % % Eos % (Auto) 1.0 % % Baso % (Auto) 0.5 % % Neut # (Auto) 2.61 10^3/uL 10^3 /uL (1.8-7.7) Lymph # (Auto) 0.8 10^3/uL 10^3/ uL (0.8-4.8) [place] # (Auto) 0.5 10^3/uL 10^3/ uL (0.2-0.9) Eos # (Auto) 0.0 10^3/uL 10^3/ uL (0.0-0.8) Baso # (Auto) 0.0 10^3/uL 10^3/ uL (0.0-0.1) Nucleated RBC % (a uto) 0 % % Nucleated RBCs # 0.0 /100WBC /100W BC PT INR Specimen Type Arterial Sample Site Brachial, left ABG pH 7.31 L (7.35-7.45) ABG pCO2 78.2 mmHg H* mmHg (35-45) ABG pO2 242.0 mmHg H mmHg (80.0-100.0) ABG HCO3 39.6 mmol/L H mmo l/L (22-26) ABG O2 Saturation > 100.0 ABG Base Excess 11.1 mmol/L H mmo l/L (-2.0-2.0) César Test N/a A-a O2 Gradient Not Reportable Hematocrit 30.5 % L % (37-47) Hgb O2 Saturation 98.0 % % (95-100) Carboxyhemoglobin 1.8 %THgb %THgb (0.4-20.1) Methemoglobin 0.5 % % (0.4-1.5) Total Hemoglobin 10.0 g/dL L g/dL (12-16) Sodium 147.0 mmol/L H mm ol/L 147 mmol/L H mmol /L (131-143) (136-145) Potassium 4.8 mmol/L mmol/L 5.0 mmol/L mmol/L (3.5-5.0) (3.5-5.1) Glucose 106.0 mg/dL mg/dL 95 mg/dL mg/dL (70-115) (65-115) Ionized Calcium 1.2 mmol/L mmol/L (1.1-1.4) O2 Delivery Device Nc O2 Liters/Min 2.0 % % FiO2 28.0 % % Cork Insulator Helper ID Amh Chloride 105 mmol/L mmol/L (98-107) Carbon Dioxide 36 mmol/L H mmol/ L (22-29) Anion Gap 11.0 (5-19) BUN 24 mg/dL H mg/dL (8-23) Creatinine 0.8 mg/dL mg/dL (0.5-0.9) GFR Calculation Not Reportable Calculated Osmolal ity 308 mOsm/kg H mOs m/kg (285-295) Lactic Acid Calcium 8.3 mg/dL L mg/dL (8.5-10.5) Magnesium 2.6 mg/dL H mg/dL (1.7-2.3) Total Bilirubin 1.2 mg/dL mg/dL (0.15-1.2) AST 10 U/L U/L (0-32) ALT < 5 U/L U/L (0-33) Alkaline Phosphata se 117 IU/L H IU/L (35-105) Creatine Kinase 53 U/L U/L (26-192) Troponin T Baselin e NT-Pro-B Natriuret Pep 727 pg/mL H pg/mL (0-450) Total Protein 6.2 g/dL L g/dL (6.6-8.7) Albumin 3.6 g/dL g/dL (3.5-5.2) Globulin 2.6 g/dL g/dL (1.3-4.6) Urine Color Urine Appearance Urine pH Ur Specific Gravit y Urine Protein Urine Glucose (UA) Urine Ketones Urine Blood Urine Nitrate Urine Bilirubin Urine Urobilinogen Ur Leukocyte Carlyn ase 07/28/21 07/28/21 07/28/21 15:13 15:13 15:13 WBC RBC Hgb Hct MCV MCH MCHC RDW Plt Count MPV Neut % (Auto) Lymph % (Auto) [place] % (Auto) Eos % (Auto) Baso % (Auto) Neut # (Auto) Lymph # (Auto) [place] # (Auto) Eos # (Auto) Baso # (Auto) Nucleated RBC % (a uto) Nucleated RBCs # PT 17.90 SECONDS H S ECONDS (12.1-14.9) INR 1.44 H (0.8-1.2) Specimen Type Sample Site ABG pH ABG pCO2 ABG pO2 ABG HCO3 ABG O2 Saturation ABG Base Excess César Test A-a O2 Gradient Hematocrit Hgb O2 Saturation Carboxyhemoglobin Methemoglobin Total Hemoglobin Sodium Potassium Glucose Ionized Calcium O2 Delivery Device O2 Liters/Min FiO2 Cork Insulator Helper ID Chloride Carbon Dioxide Anion Gap BUN Creatinine GFR Calculation Calculated Osmolal ity Lactic Acid 0.6 mmol/L mmol/L (0.5-2.2) Calcium Magnesium Total Bilirubin AST ALT Alkaline Phosphata se Creatine Kinase Troponin T Baselin e 18 ng/L H ng/L (0-10) NT-Pro-B Natriuret Pep Total Protein Albumin Globulin Urine Color Urine Appearance Urine pH Ur Specific Gravit y Urine Protein Urine Glucose (UA) Urine Ketones Urine Blood Urine Nitrate Urine Bilirubin Urine Urobilinogen Ur Leukocyte Carlyn ase 07/28/21 15:20 WBC RBC Hgb Hct MCV MCH MCHC RDW Plt Count MPV Neut % (Auto) Lymph % (Auto) [place] % (Auto) Eos % (Auto) Baso % (Auto) Neut # (Auto) Lymph # (Auto) [place] # (Auto) Eos # (Auto) Baso # (Auto) Nucleated RBC % (a uto) Nucleated RBCs # PT INR Specimen Type Sample Site ABG pH ABG pCO2 ABG pO2 ABG HCO3 ABG O2 Saturation ABG Base Excess César Test A-a O2 Gradient Hematocrit Hgb O2 Saturation Carboxyhemoglobin Methemoglobin Total Hemoglobin Sodium Potassium Glucose Ionized Calcium O2 Delivery Device O2 Liters/Min FiO2 Cork Insulator Helper ID Chloride Carbon Dioxide Anion Gap BUN Creatinine GFR Calculation Calculated Osmolal ity Lactic Acid Calcium Magnesium Total Bilirubin AST ALT Alkaline Phosphata se Creatine Kinase Troponin T Baselin e NT-Pro-B Natriuret Pep Total Protein Albumin Globulin Urine Color Yellow (Yellow) Urine Appearance Clear (CLEAR) Urine pH 6 (5-7) Ur Specific Gravit y 1.010 (1.005-1.030) Urine Protein Neg (Negative) Urine Glucose (UA) Norm (Normal) Urine Ketones Negative (Negative) Urine Blood Neg (Negative) Urine Nitrate Negative (Negative) Urine Bilirubin Neg (Negative) Urine Urobilinogen 1 mg/dL H mg/dL (Negative) Ur Leukocyte Carlyn ase Negative (Negative) Discharge Plan Discharge Patient Disposition: Admitted As Inpatient Admit Provider: Serg Perales Clinical Impression: Acute and chronic respiratory failure with hypoxia, COPD (chronic obstructive pulmonary disease), Anemia, Acute exacerbation of chronic obstructive airways disease, Congestive heart failure, Atrial fibrillation, Supratherapeutic INR, Chronic anticoagulation Condition: Stable Coding Level of Care Code ED Ski Technician for g Fwd Exam Comprehensive
[2021-07-28 14:46] LABS: ABG PCO2 78.2 mmHg (35-45); ABG PH Result 7.31 (7.35-7.45); Arterial Blood Gas Hematocrit 30.5 % (37-47); Base Excess ABG 11.1 mmol/L (-2.0-2.0); Blood Gas Operator Identificat AMH; Blood Gas Sample Site Brachial, left; Blood Gas Sample Type Arterial; Carboxyhemoglobin 1.8 %THgb (0.4-20.1); HCO3 ABG 39.6 mmol/L (22-26); Ionized Calcium Level - ABG 1.2 mmol/L (1.1-1.4); Methemoglobin 0.5 % (0.4-1.5); Oxygen Device NC; Oxygen Saturation ABG > 100.0; Potassium Level - ABG 4.8 mmol/L (3.5-5.0)
[2021-07-28] MEDS: ipratropium-albuterol 3 mL Neb INHALATION ×3 (15:17→23:29)
[2021-07-28 15:24] LABS: Basophils % 0.5 %; Hematocrit 33.2 % (37.0-47.0); Hemoglobin 9.8 g/dL (11.5-15.3); Lymphocytes # 0.8 10^3/uL (0.8-4.8); Lymphocytes % 19.5 %; Mean Corpuscular HGB Conc 29.5 g/dL (30.0-36.0); Mean Corpuscular Volume 98.2 fl (81-99); Mean Platelet Volume 9.5 fL (7.4-10.4); Monocytes # 0.5 10^3/uL (0.2-0.9); Monocytes % 11.8 %; Neutrophils # 2.61 10^3/uL (1.8-7.7); Neutrophils % 66.9 %; Nucleated Red Blood Cells % 0 %; Platelet Count 243 10^3/cmm (130-400); Red Blood Count 3.38 10^6/uL (4.1-5.3); Red Cell Distribution Width 15.8 % (12.1-15.1); White Blood Count 3.9 10^3/uL (4.0-10.0)
[2021-07-28 15:36] LABS: Add Urine Microscopic? NO; Charge for UA Resulting for Rev
[2021-07-28 15:43] LABS: INR 1.44 (0.8-1.2)
[2021-07-28 15:46] LABS: Troponin(5th) Baseline 18 ng/L (0-10)
[2021-07-28 15:47] LABS: Lactic Sepsis W/Reflex 0.6 mmol/L (0.5-2.2)
[2021-07-28 15:52] LABS: Protein Urine Neg (Negative); Urine Appearance Clear (CLEAR); Urine Color Yellow (Yellow); pH Urine 6 (5-7)
[2021-07-28 15:53] LABS: Bilirubin Urine Neg (Negative); Blood Urine Neg (Negative); Glucose Urine UA Norm (Normal); Ketones Urine Negative (Negative); Leukocyte Esterase Urine Negative (Negative); Nitrate Urine Negative (Negative); Urobilinogen Urine 1 mg/dL (Negative)
--- NOTE | 2021-07-28 15:54 | PC.PHAR ---
PT FAMILY MEMBER VERIFIED MEDICATIONS BUT WAS UNSURE IF PT IS STILL TAKING METOPROLOL 25MG DAILY. FAMILY MEMBER (DAUGHTER) WAS UNSURE OF SOME MEDICATIONS BECAUSE SHE DID NOT HAVE HER LIST WITH HER. VERIFIED BY [facility] AND DAUGHTER.
[2021-07-28 15:59] LABS: Alanine Aminotransferase < 5 U/L (0-33); Albumin Level 3.6 g/dL (3.5-5.2); Alkaline Phosphatase 117 IU/L (35-105); Aspartate Amino Transferase 10 U/L (0-32); Blood Urea Nitrogen 24 mg/dL (8-23); Calcium 8.3 mg/dL (8.5-10.5); Carbon Dioxide 36 mmol/L (22-29); Chloride 105 mmol/L (98-107); Creatine Phosphokinase 53 U/L (26-192); Globulin 2.6 g/dL (1.3-4.6); Glucose 95 mg/dL (65-115); Magnesium 2.6 mg/dL (1.7-2.3); NT Pro B Type Natriuretic Pept 727 pg/mL (0-450); Osmolality Calculated 308 mOsm/kg (285-295); Sodium 147 mmol/L (136-145); Total Bilirubin 1.2 mg/dL (0.15-1.2); Total Protein 6.2 g/dL (6.6-8.7)
--- NOTE | 2021-07-28 16:28 | ECG_ITS ---
[facility] Test Date: 2021-07-28 Pat Name: Iris Garcia Department: Room: Gender: Female Early Childhood Education Specialist: : 1940 Requested By: Emile Perla Order Number: [id number] Krupa MD: Santos Adorno M.D. Measurements Intervals Daphne Rate: 83 P: IL: QRS: 55 QRSD: 94 T: -4 QT: 386 QTc: 455 Interpretive Statements SUPRAVENTRICULAR RHYTHM, possible atrial flutter MODERATE ST DEPRESSION [0.05+ mV ST DEPRESSION] Compared to ECG 07/28/2021 14:17:32 No significant changes Electronically Signed On 07-28-2021 21:52:14 CDT by Santos Adorno M.D. [id number]
--- NOTE | 2021-07-28 16:56 | XRR_ITS ---
PROCEDURE INFORMATION: Exam: XR Chest Exam date and time: 07/28/2021 4:56 PM Age: 80 years old Clinical indication: Shortness of breath; Additional info: SOB TECHNIQUE: Imaging protocol: XR of the chest. Views: 1 view. Total images: 1 COMPARISON: CR XR chest 1V portable [id number] 07/28/2021 2:36 PM FINDINGS: Lungs: No visible active interstitial or alveolar airspace disease. Calcified granulomas of antecedent disease. Pleural spaces: No pleural effusion. No pneumothorax. Heart/Mediastinum: Cardiac structures and configuration with cardiomegaly and arteriosclerosis. Status post sternotomy chest and mitral valve prosthesis. Bones/joints: Mild scoliosis of the spine. Other findings: Mild senile fibrosis. XR/XR chest 1V portable [id number] IMPRESSION: Nonacute.
--- NOTE | 2021-07-28 17:18 | P.HP_ITS ---
Providers/Chief Complaint Admitting Physician: Serg Perales MD Primary Care Provider: Michael Hampton DO Chief Complaint: LOW O2; FATIGUE; CONFUSION History of Present Illness 80 y o f with PMH severe RLD, chronic hypercapneic respiratory failure, on trilogy at home, pulmonary hypertension, HFpEF, A fib brought to the ER today due to 4-5 days of increasing lethargy , hypoxia, worsening confusion. She was recently discharged from the hospital to senior care after being managed for COPD exacerbation, she was at a senior care in [place] for the last 2 weeks, and according to her granddaughter she was fairly doing better , she was not using trilogy at senior care, and was fairly doing well on nasal cannula oxygen, was discharged home couple of days back, she was initially doing fine after discharge, but since Monday has been progressively worsening, brought in today because she was noting hypoxia on pulse ox at home, along with worsening lethargy and confusion. Upon arrival in the ER she was worked up for above-mentioned: Pertinent imaging study: X-ray chest: No infiltrates no effusion no pneumothorax ABG: pH: 7.31, PCO2: 78, PO2:242, FiO2:28 % Pertinent labs: WBC:3.9, H&H;9.8/33, platelet count:243, serum sodium:147, serum potassium: 5, BUN/ serum creatinine: 24/0.8, proBNP:727. Review of Systems General: Reports: ROS unobtainable due to medical condition Medications/Allergies Home Medications Medication Instructions Recorded Confirmed Last Taken Type fluoxetine 10 mg capsule 10 mg PO DAILY@ cap 11/06/19 07/28/21 07/28/21 History carbidopa 10 mg-levodopa 100 mg 1 tab PO TID@ tab 03/12/20 07/28/21 07/28/21 History disintegrating tablet tolterodine 2 mg tablet 2 mg PO BID@03/12/20 07/28/21 07/28/21 History levothyroxine 50 mcg capsule 50 mcg PO DAILY@05/21/20 07/28/21 07/28/21 History ferrous gluconate 324 mg PO BID@11/10/20 07/28/21 07/28/21 History potassium chloride [Klor-Con 10] 20 meq PO BID@11/10/20 07/28/21 07/28/21 History sennosides-docusate sodium 2 tab PO BID PRN 11/10/20 07/28/21 06/22/21 History pantoprazole 40 mg PO BID@0900,2100 12/31/20 07/28/21 07/28/21 History cholecalciferol (vitamin D3) 25 mcg PO DAILY@0900 #0 02/12/21 07/28/21 07/28/21 History [Vitamin D3] fluticasone propion-salmeterol 1 inh INHALATION BID@0900,2100 02/12/21 07/28/21 07/28/21 History [Advair Diskus] nitroglycerin 0.4 mg SUBLINGUAL Q5M PRN 02/12/21 07/28/21 Unknown History rosuvastatin 10 mg PO DAILY@0900 02/12/21 07/28/21 07/28/21 History tramadol 50 mg PO Q6H PRN 02/12/21 07/28/21 Unknown History albuterol sulfate 1 inh INHALATION Q6H PRN 02/26/21 07/28/21 Unknown History isosorbide mononitrate 15 mg PO BID@0900,2100 02/26/21 07/28/21 07/28/21 History nystatin [Nystop] 1 applic TOPICAL BID PRN #60 g 03/01/21 07/28/21 Unknown Rx polyethylene glycol 3350 17 gram 17 g PO DAILY@0900 PRN 04/27/21 07/28/21 Unknown History oral powder packet lisinopril 2.5 mg tablet 2.5 mg PO DAILY #30 tab 06/09/21 07/28/21 07/28/21 Rx bumetanide 1 mg PO DAILY@1600 #30 tab 06/26/21 07/28/21 07/27/21 Rx bumetanide 2 mg PO DAILY #60 tab 06/26/21 07/28/21 07/28/21 Rx ipratropium-albuterol 3 ml INHALATION Q6H.RESPIRATORY 06/26/21 07/28/21 Unknown Rx #270 ml warfarin [Jantoven] 3 mg PO DAILY@1400 #30 tab MDD see 06/26/21 07/28/21 Unknown Rx pharmacy comment *HELD* carvedilol 6.25 mg tablet See Rx Instructions .ROUTE 07/26/21 07/28/21 07/28/21 Rx .COMPLEX #60 tab metoprolol tartrate 25 mg PO DAILY 07/28/21 07/28/21 07/28/21 History Allergies Allergy/AdvReac Type Severity Reaction Status Date / Time penicillin G Allergy UNK Verified 06/22/21 16:29 PFSH Acute PFSH: Medical History Acute exacerbation of COPD with asthma Afib Anemia -baseline Hg around 9- -follow with Dr Bullock CAD (coronary artery disease) Chronic anticoagulation Due to mechanical mitral valve; coumadin Chronic hypercapnic respiratory failure Depression Diastolic CHF GERD (gastroesophageal reflux disease) PPI HTN (hypertension) Hypothyroidism -continue levothyroxine Iron deficiency anemia Has required transfusion in past, last egd and colonoscopy ~2017 with diverticulosis and internal hemorrhoids, SONYA (obstructive sleep apnea) Parkinson disease Follows up with Dr. Rainey in [facility]'s ring Weakness Surgical History History of bilateral tubal ligation History of cholecystectomy History of total knee arthroplasty Left Mitral valve replaced Mechanical, on coumadin Family History Mother CAD (coronary artery disease) Diabetes Other Hypertension Social History Smoking and tobacco status: former smoker Quit status (tobacco): has quit using tobacco Year quit tobacco: 1994 - PPD x 15 Years Second hand smoke exposure: No Smoking risk assessment/counseling performed?: No Alcohol intake: never Counseling given: No Counseling given: No Caregiver/support person: Yes Household members: spouse and children Housing: House Marital status: Current occupational status: retired and disabled History of recent travel: No Current gender identity: Female Vitals/I&O/Wt Last Vital Signs Temp 98.9 F 07/28/21 17:10 Pulse 79 07/28/21 17:10 Resp 25 H 07/28/21 17:10 BP 121/71 07/28/21 17:10 Pulse Ox 97 07/28/21 17:10 Weight last 48 hrs Weight 61.689 kg Physical Exam Narrative: EXAM NARRATIVE: Alert and awake HENMT: COMMON NORMALS: normocephalic and atraumatic HEAD & SCALP: normocephalic and atraumatic Chest: CHEST: Yes Symmetrical chest wall rise Resp: OTHER: Minimal bilateral wheezing, diminished air entry b/l Cardio: COMMON NORMALS: regular rate, regular rhythm, S1 normal heart sound present, S2 normal heart sound present and Peripheral pulses 2+ throughout RATE: regular rate RHYTHM: regular rhythm HEART SOUNDS: S1 normal heart sound present and S2 normal heart sound present PERIPHERAL PULSES: Peripheral pulses 2+ throughout OTHER: Mechanical mitral clip present GI: COMMON NORMALS: Normal to inspection, nondistended, normoactive bowel sounds present, Soft to palpation, non-tender, No hepatosplenomegaly present and no masses AUSCULTATION: Yes normoactive bowel sounds PALPATION: Yes Soft to palpation and Yes No hepatosplenomegaly present RECTAL EXAM: deferred Extremity: COMMON NORMALS: no clubbing, cyanosis or edema and no pedal edema NARRATIVE EXTREMITY EXAM: Chronic venous stasis changes present in bilateral lower extremity Data : 07/28/21 15:13 07/28/21 15:13 A&P Assessment and plan (1) Acute and chronic respiratory failure with hypercapnia: Acute on chronic hypercapnic respiratory failure secondary to COPD Exacerbation Continue BIPAP Monitor ABG Monitor x-ray Duo nebs Advair inhaler Solu-Medrol 40 mg IV twice daily Azithromycin 500 IV daily Status: Acute (2) COPD (chronic obstructive pulmonary disease): Plan as 1 Status: Acute Qualifiers: COPD type: chronic bronchitis Chronic bronchitis type: unspecified Qualified Code(s): J42 - Unspecified chronic bronchitis (3) Acute encephalopathy: Acute metabolic encephalopathy (multifactorial : hypercapneia, hypernatremia ) Status: Acute (4) CHF (congestive heart failure): Heart failure with preserved ejection fraction: Currently she is euvolemic: Slightly dry We will hold on Bumex 3 mg p.o. daily her home dose. Monitor intake output Telemetry Status: Acute Qualifiers: Heart failure type: diastolic Heart failure chronicity: chronic Qualified Code(s): I50.32 - Chronic diastolic (congestive) heart failure (5) Hypernatremia: Hypovolemic hypernatremia D5 half-normal saline at the rate of 50 cc an hour Monitor BMP Status: Acute (6) Subtherapeutic international normalized ratio (INR): Pharmacy consult for warfarin dosing and monitoring. Status: Acute (7) Afib: Continue metoprolol 25 mg p.o. daily Status: Acute Qualifiers: Atrial fibrillation type: longstanding persistent Qualified Code(s): I48.11 - Longstanding persistent atrial fibrillation (8) Pulmonary hypertension: Status: Acute (9) Mitral valve replaced: Status: Acute (10) Anemia: Status: Acute Additional A&P Information CODE STATUS:AND DVT prophylaxis: On warfarin Attestations Medical Necessity Statement*: Patient needs to be in hospital for management of hypercapnic respiratory failure. Anticipated length of stay greater than 2 midnights. Coding Level of Care Code Acute Ceramic Coater for [facility] Rao Diagnoses Acute and chronic respiratory failure with hypercapnia J96.22 COPD (chronic obstructive pulmonary disease) J42 COPD type: chronic bronchitis Chronic bronchitis type: unspecified Acute encephalopathy G93.40 CHF (congestive heart failure) I50.32 Heart failure type: diastolic Heart failure chronicity: chronic Hypernatremia E87.0 Subtherapeutic international normalized ratio (INR) R79.1 Afib I48.11 Atrial fibrillation type: longstanding persistent Pulmonary hypertension I27.20 Mitral valve replaced Z95.2 Anemia D64.9
[2021-07-28 18:27] LABS: Troponin 5 2HR 16.74 ng/L (0-10)
[2021-07-28] MEDS: azithromycin 500 MG in sodium chloride 0.9% 250 ML 250 MG IV (18:28)
[2021-07-28] MEDS: sodium chloride 0.45% 1,000 ML 50 ML IV (18:31)
[2021-07-28] MEDS: warfarin 3 mg Tablet PO (18:32)
[2021-07-28 18:33] LABS: Troponin 5 2HR Delta -1.26 ABS# (0-10)
[2021-07-28] MEDS: ferrous gluconate 324 mg Tablet PO (20:19)
[2021-07-28] MEDS: tolterodine 2 mg Tablet PO (20:19)
[2021-07-28] MEDS: pantoprazole DR 40 mg Tablet PO (20:19)
--- NOTE | 2021-07-28 20:28 | ECG_ITS ---
[facility] Test Date: 2021-07-28 Pat Name: Iris Garcia Department: Room: 250 Gender: Female Senior Cost Analyst: : 1940 Requested By: Emile Perla Order Number: [id number] Kurpa MD: Santos Adorno M.D. Measurements Intervals Aldie Rate: 82 P: -2 OH: 237 QRS: 39 QRSD: 109 T: 20 QT: 398 QTc: 467 Interpretive Statements SINUS RHYTHM WITH FIRST DEGREE AV BLOCK Compared to ECG 07/28/2021 16:16:19 First degree AV block now present Supraventricular rhythm no longer present ST (T wave) deviation no longer present Electronically Signed On 07-28-2021 21:54:20 CDT by Santos Adorno M.D. [id number]
[2021-07-28 21:34] LABS: Troponin 5 6HR 15.24 ng/L (0-10); Troponin 5 6HR Delta -2.76 ng/L (0-12)
[2021-07-29] VITALS (18 sets, daily range): BP systolic 95–127; BP diastolic 37–67; PULSE 53–95; RESP 17–22; TEMP 36.6–37; O2SAT 93–99
[2021-07-29] MEDS: ipratropium-albuterol 3 mL Neb INHALATION ×5 (03:05→19:48)
[2021-07-29 05:50] LABS: Hematocrit 30.6 % (37.0-47.0); Hemoglobin 9.1 g/dL (11.5-15.3); Lymphocytes # 0.7 10^3/uL (0.8-4.8); Lymphocytes % 23.3 %; Mean Corpuscular HGB Conc 29.7 g/dL (30.0-36.0); Mean Corpuscular Hemoglobin 28.8 pg (28.0-34.0); Mean Corpuscular Volume 96.8 fl (81-99); Mean Platelet Volume 9.3 fL (7.4-10.4); Monocytes # 0.2 10^3/uL (0.2-0.9); Monocytes % 5.9 %; Neutrophils # 2.02 10^3/uL (1.8-7.7); Neutrophils % 70.5 %; Nucleated Red Blood Cells % 0 %; Platelet Count 217 10^3/cmm (130-400); Red Blood Count 3.16 10^6/uL (4.1-5.3); Red Cell Distribution Width 15.9 % (12.1-15.1); White Blood Count 2.9 10^3/uL (4.0-10.0)
[2021-07-29 06:00] LABS: INR 1.65 (0.8-1.2)
[2021-07-29 06:12] LABS: Alanine Aminotransferase < 5 U/L (0-33); Albumin Level 3.3 g/dL (3.5-5.2); Alkaline Phosphatase 104 IU/L (35-105); Anion Gap 9.3 (5-19); Aspartate Amino Transferase 9 U/L (0-32); Blood Urea Nitrogen 22 mg/dL (8-23); Calcium 8.6 mg/dL (8.5-10.5); Carbon Dioxide 35 mmol/L (22-29); Chloride 106 mmol/L (98-107); Creatinine Clr Calc Pharmacy 52.3977; Globulin 2.7 g/dL (1.3-4.6); Glucose 130 mg/dL (65-115); Magnesium 2.4 mg/dL (1.7-2.3); Osmolality Calculated 307 mOsm/kg (285-295); Potassium 4.3 mmol/L (3.5-5.1); Sodium 146 mmol/L (136-145)
[2021-07-29 06:17] LABS: Procalcitonin 0.04 ng/mL (0-0.5)
[2021-07-29] MEDS: fluoxetine 10 mg Capsule PO (07:26)
[2021-07-29] MEDS: levothyroxine 50 mcg Tablet PO (07:26)
[2021-07-29] MEDS: tolterodine 2 mg Tablet PO ×2 (07:27→20:51)
[2021-07-29] MEDS: pantoprazole DR 40 mg Tablet PO ×2 (07:27→20:51)
[2021-07-29] MEDS: cholecalciferol (vitamin D3) 1,000 unit Tablet 1000 UNIT PO (07:27)
[2021-07-29] MEDS: ferrous gluconate 324 mg Tablet PO ×2 (07:27→20:50)
[2021-07-29] MEDS: atorvastatin 40 mg Tablet PO (07:27)
--- NOTE | 2021-07-29 11:34 | P.PN_ITS ---
Subjective Subjective: Interval history: Patient was seen and examined this morning, currently she is alert , awake and oriented. Saturating well on 1 to 2 L supplemental oxygen. Good urine output. Medications: Reviewed: Yes Vitals/I&O/Wt Last Vital Signs Temp 98.0 F 07/29/21 11:04 Pulse 80 07/29/21 11:04 Resp 18 07/29/21 11:04 BP 108/58 07/29/21 11:04 Pulse Ox 94 07/29/21 11:04 07/28/21 07/29/21 07/29/21 22:59 06:59 14:59 Intake Total 250 / 250 360 / 360 Output Total 900 / 900 580 / 1480 Balance -650 / -650 -580 / -1230 360 / 360 Weight last 48 hrs Weight 64.954 kg Weight 64.319 kg Weight 61.689 kg Physical Exam Narrative: EXAM NARRATIVE: Alert and awake HENMT: COMMON NORMALS: normocephalic and atraumatic HEAD & SCALP: normocephalic and atraumatic Chest: CHEST: Yes Symmetrical chest wall rise Resp: OTHER: Minimal bilateral wheezing, diminished air entry b/l Cardio: COMMON NORMALS: regular rate, regular rhythm, S1 normal heart sound present, S2 normal heart sound present and Peripheral pulses 2+ throughout RATE: regular rate RHYTHM: regular rhythm HEART SOUNDS: S1 normal heart sound present and S2 normal heart sound present PERIPHERAL PULSES: Peripheral pulses 2+ throughout OTHER: Mechanical mitral clip present GI: COMMON NORMALS: Normal to inspection, nondistended, normoactive bowel sounds present, Soft to palpation, non-tender, No hepatosplenomegaly present and no masses AUSCULTATION: Yes normoactive bowel sounds PALPATION: Yes Soft to palpation and Yes No hepatosplenomegaly present RECTAL EXAM: deferred Extremity: COMMON NORMALS: no clubbing, cyanosis or edema and no pedal edema NARRATIVE EXTREMITY EXAM: Chronic venous stasis changes present in bilateral lower extremity Data : 07/29/21 05:15 07/29/21 05:15 A&P Assessment and plan (1) Acute and chronic respiratory failure with hypercapnia: Acute on chronic hypercapnic respiratory failure secondary to COPD Exacerbation Continue BIPAP Monitor ABG Monitor x-ray Duo nebs Advair inhaler Solu-Medrol 40 mg IV daily Azithromycin 500 IV daily Status: Acute (2) COPD (chronic obstructive pulmonary disease): Plan as 1 Status: Acute Qualifiers: COPD type: chronic bronchitis Chronic bronchitis type: unspecified Qualified Code(s): J42 - Unspecified chronic bronchitis (3) Acute encephalopathy: Acute metabolic encephalopathy (multifactorial : hypercapneia, hypernatremia ) : Resolved Status: Acute (4) CHF (congestive heart failure): Heart failure with preserved ejection fraction: Currently she is euv olemic: Slightly dry We will hold on Bumex 3 mg p.o. daily her home dose. Monitor intake output Telemetry Status: Acute Qualifiers: Heart failure type: diastolic Heart failure chronicity: chronic Qualified Code(s): I50.32 - Chronic diastolic (congestive) heart failure (5) Hypernatremia: Hypovolemic hypernatremia:Improving Initially on D5 half-normal saline at the rate of 50 cc an hour.Has been stopped. Will encourage PO Intake. Monitor BMP Status: Acute (6) Subtherapeutic international normalized ratio (INR): Pharmacy consult for warfarin dosing and monitoring. Status: Acute (7) Afib: Continue metoprolol 25 mg p.o. daily Status: Acute Qualifiers: Atrial fibrillation type: longstanding persistent Qualified Code(s): I48.11 - Longstanding persistent atrial fibrillation (8) Pulmonary hypertension: Status: Acute (9) Mitral valve replaced: Status: Acute (10) Anemia: Status: Acute Additional A&P Information CODE STATUS:AND DVT prophylaxis: On warfarin Attestations Medical Necessity Statement*: Patient needs to be in hospital for management of hypercapnic respiratory failure. Coding Level of Care Code Acute Gaming Surveillance Observer for [facility] Diagnoses Acute and chronic respiratory failure with hypercapnia J96.22 COPD (chronic obstructive pulmonary disease) J42 COPD type: chronic bronchitis Chronic bronchitis type: unspecified Acute encephalopathy G93.40 CHF (congestive heart failure) I50.32 Heart failure type: diastolic Heart failure chronicity: chronic Hypernatremia E87.0 Subtherapeutic international normalized ratio (INR) R79.1 Afib I48.11 Atrial fibrillation type: longstanding persistent Pulmonary hypertension I27.20 Mitral valve replaced Z95.2 Anemia D64.9
--- NOTE | 2021-07-29 13:16 | PC.PHAR ---
pharmacy to dose warfarin day 2: pt inr increased 1.44 to 1.65, pt has had multiple recent dose changes and held doses. Will admin another 3 mg today, will reassess if no appropriate increase towards goal (2.5-3.5)
[2021-07-29] MEDS: sodium chloride 0.45% 1,000 ML 50 ML IV (14:18)
[2021-07-29] MEDS: warfarin 3 mg Tablet PO (14:55)
[2021-07-29] MEDS: azithromycin 500 MG in sodium chloride 0.9% 250 ML 250 MG IV (18:11)
[2021-07-29] MEDS: isosorbide mononitrate ER 30 mg Tablet 15 MG PO (20:50)
[2021-07-30] VITALS (17 sets, daily range): BP systolic 111–129; BP diastolic 56–85; PULSE 59–109; RESP 17–27; TEMP 36.6–36.7; O2SAT 92–100
[2021-07-30] MEDS: ipratropium-albuterol 3 mL Neb INHALATION ×5 (00:28→15:07)
[2021-07-30 05:18] LABS: Basophils % 0.7 %; Eosinophils % 0.5 %; Hematocrit 28.7 % (37.0-47.0); Hemoglobin 8.8 g/dL (11.5-15.3); Lymphocytes % 17.6 %; Mean Corpuscular HGB Conc 30.7 g/dL (30.0-36.0); Mean Corpuscular Hemoglobin 29.4 pg (28.0-34.0); Mean Platelet Volume 9.5 fL (7.4-10.4); Monocytes # 0.8 10^3/uL (0.2-0.9); Monocytes % 13.5 %; Neutrophils # 3.95 10^3/uL (1.8-7.7); Neutrophils % 67.5 %; Nucleated Red Blood Cells % 0 %; Platelet Count 223 10^3/cmm (130-400); Red Blood Count 2.99 10^6/uL (4.1-5.3); Red Cell Distribution Width 16.4 % (12.1-15.1); White Blood Count 5.9 10^3/uL (4.0-10.0)
[2021-07-30 05:28] LABS: INR 2.21 (0.8-1.2)
[2021-07-30 05:43] LABS: Alanine Aminotransferase < 5 U/L (0-33); Albumin Level 3.3 g/dL (3.5-5.2); Alkaline Phosphatase 97 IU/L (35-105); Aspartate Amino Transferase 10 U/L (0-32); Blood Urea Nitrogen 21 mg/dL (8-23); Calcium 8.1 mg/dL (8.5-10.5); Carbon Dioxide 34 mmol/L (22-29); Chloride 106 mmol/L (98-107); Creatinine Clr Calc Pharmacy 52.3977; Globulin 2.5 g/dL (1.3-4.6); Glucose 84 mg/dL (65-115); Osmolality Calculated 300 mOsm/kg (285-295); Sodium 144 mmol/L (136-145); Total Bilirubin 0.9 mg/dL (0.15-1.2); Total Protein 5.8 g/dL (6.6-8.7)
[2021-07-30] MEDS: fluoxetine 10 mg Capsule PO (07:29)
[2021-07-30] MEDS: cholecalciferol (vitamin D3) 1,000 unit Tablet 1000 UNIT PO (07:29)
[2021-07-30] MEDS: ferrous gluconate 324 mg Tablet PO (07:30)
[2021-07-30] MEDS: atorvastatin 40 mg Tablet PO (07:30)
[2021-07-30] MEDS: pantoprazole DR 40 mg Tablet PO (07:30)
[2021-07-30] MEDS: levothyroxine 50 mcg Tablet PO (07:31)
[2021-07-30] MEDS: metoprolol tartrate 25 mg Tablet PO (07:31)
[2021-07-30] MEDS: lisinopril 2.5 mg Tablet PO (07:31)
[2021-07-30] MEDS: isosorbide mononitrate ER 30 mg Tablet 15 MG PO (07:34)
[2021-07-30] MEDS: tolterodine 2 mg Tablet PO (07:34)
--- NOTE | 2021-07-30 12:24 | PM.DCS ---
Discharge Providers Date of Admission: 07/28/21 16:32 Date of Discharge: July 30, 2021 Attending Provider at Admission: Serg Perales MD Attending Provider at Discharge: Serg Perales MD Primary Care Provider: Michael Hampton DO Diagnoses at Discharge Discharge Diagnosis (1) Acute and chronic respiratory failure with hypercapnia: Status: Resolved (2) COPD (chronic obstructive pulmonary disease): Status: Acute Qualifiers: COPD type: chronic bronchitis Chronic bronchitis type: unspecified Qualified Code(s): J42 - Unspecified chronic bronchitis (3) Acute encephalopathy: Status: Acute (4) CHF (congestive heart failure): Status: Acute Qualifiers: Heart failure chronicity: chronic Heart failure type: diastolic Qualified Code(s): I50.32 - Chronic diastolic (congestive) heart failure (5) Hypernatremia: Status: Acute (6) Subtherapeutic international normalized ratio (INR): Status: Acute (7) Afib: Status: Acute Qualifiers: Atrial fibrillation type: longstanding persistent Qualified Code(s): I48.11 - Longstanding persistent atrial fibrillation (8) Pulmonary hypertension: Status: Acute (9) Mitral valve replaced: Status: Acute Permanent problem details: Mechanical, on coumadin (10) Anemia: Status: Acute Reason for Visit Reason for Visit: LOW O2; FATIGUE; CONFUSION Hospital Course Hospital Course PMH severe RLD, chronic hypercapneic respiratory failure, on trilogy at home, pulmonary hypertension, HFpEF, A fib brought to the ER today due to 4-5 days of increasing lethargy , hypoxia, worsening confusion. She was recently discharged from the hospital to detention after being managed for COPD exacerbation, she was at a detention in [place] for the last 2 weeks, and according to her granddaughter she was fairly doing better , she was not using trilogy at detention, and was fairly doing well on nasal cannula oxygen, was discharged home couple of days back, she was initially doing fine after discharge, but since Monday has been progressively worsening, brought in today because she was noting hypoxia on pulse ox at home, along with worsening lethargy and confusion. Upon arrival in the ER she was worked up for above-mentioned: Pertinent imaging study: X-ray chest: No infiltrates no effusion no pneumothorax ABG: pH: 7.31, PCO2: 78, PO2:242, FiO2:28 % Pertinent labs: WBC:3.9, H&H;9.8/33, platelet count:243, serum sodium:147, serum potassium: 5, BUN/ serum creatinine: 24/0.8, proBNP:727. She was admitted for the management of Acute and chronic respiratory failure with hypercapnia secondary to COPD Exacerbation. She was kept on BiPAP, nebs, IV steroids, azithromycin 500 mg IV day, inhalers, she responded pretty quickly to above conservative respiratory management, her mentation and respiratory status improved significantly. At the time of discharge she was at baseline respiratory status, she has been advised to continue to use her trilogy at home. Acute metabolic encephalopathy secondary to hypercapnia and hyponatremia also resolved. At the time of discharge she was at her baseline mentation alert oriented x3. Heart failure with preserved ejection fraction: she was slightly dry, Bumex was continued to be held, she received judicious IV hydration, later was encouraged to optimize her p.o. intake. At discharge Bumex 1 mg p.o. daily in the morning has been held for 2 weeks, she has been asked to continue on Bumex 2 mg p.o. daily only, as compared to 3 mg p.o. daily dose. For subtherapeutic INR warfarin was appropriately dosed, INR at the time of discharge was: 2.21. For A. fib heart rate was well controlled on santy blocking agent, she has been continued on carvedilol her home medication. Patient responded well to the medical management and has been discharged stable condition to home. She will follow the primary care physician as an outpatient. Physical Exam Const: COMMON NORMALS: no acute distress GENERAL APPEARANCE: cooperative and comfortable HENMT: COMMON NORMALS: normocephalic and atraumatic HEAD & SCALP: normocephalic and atraumatic Resp: COMMON NORMALS: normal respiratory effort and clear to auscultation bilaterally EFFORT & INSPECTION: Yes able to speak in complete sentences AUSCULTATION: clear to auscultation bilaterally Cardio: COMMON NORMALS: regular rate, regular rhythm, S1 normal heart sound present, S2 normal heart sound present and Peripheral pulses 2+ throughout RATE: regular rate RHYTHM: regular rhythm HEART SOUNDS: S1 normal heart sound present and S2 normal heart sound present PERIPHERAL PULSES: Peripheral pulses 2+ throughout OTHER: Mechanical mitral clip present GI: COMMON NORMALS: Normal to inspection, nondistended, normoactive bowel sounds present, Soft to palpation, non-tender, No hepatosplenomegaly present and no masses AUSCULTATION: Yes normoactive bowel sounds PALPATION: Yes Soft to palpation and Yes No hepatosplenomegaly present RECTAL EXAM: deferred Extremity: COMMON NORMALS: no clubbing, cyanosis or edema and no pedal edema NARRATIVE EXTREMITY EXAM: Chronic venous stasis changes present in bilateral lower extremity Discharge Data Data Completed and Pending: Completed Studies During Hospitalization Category Date Time Status XR chest 1V mary ble [id number] Routine Exams 07/28/21 16:56 Completed XR chest 1V mary ble [id number] Stat Exams 07/28/21 14:27 Completed Pending at discharge Category Date Time Status Complete Blood Co unt w/Auto AM LABS Lab 07/31/21 04:00 Ordered Comprehensive Met abolic Panel AM LA BS Lab 07/31/21 04:00 Ordered Prothrombin Time INR AM LABS Lab 07/31/21 04:00 Ordered Labs from last 24 hours 07/30/21 07/30/21 07/30/21 04:52 04:52 04:52 WBC 5.9 RBC 2.99 L Hgb 8.8 L Hct 28.7 L MCV 96.0 MCH 29.4 MCHC 30.7 RDW 16.4 H Plt Count 223 MPV 9.5 Neut % (Auto) 67.5 Lymph % (Auto) 17.6 Sierra % (Auto) 13.5 Eos % (Auto) 0.5 Baso % (Auto) 0.7 Neut # (Auto) 3.95 Lymph # (Auto) 1.0 [place] # (Auto) 0.8 Eos # (Auto) 0.0 Baso # (Auto) 0.0 Nucleated RBC % (a uto) 0 Nucleated RBCs # 0.0 PT 25.00 H INR 2.21 H Sodium 144 Potassium 4.0 Chloride 106 Carbon Dioxide 34 H Anion Gap 8.0 BUN 21 Creatinine 0.7 GFR Calculation Not Reportable Glucose 84 Calculated Osmolal ity 300 H Calcium 8.1 L Total Bilirubin 0.9 AST 10 ALT < 5 Alkaline Phosphata se 97 Total Protein 5.8 L Albumin 3.3 L Globulin 2.5 Vitals: Last Vital Signs Temp 97.8 F 07/30/21 11:17 Pulse 63 07/30/21 11:39 Resp 17 07/30/21 11:29 BP 129/65 07/30/21 11:17 Pulse Ox 94 07/30/21 11:29 Discharge Plan Discharge Patient Disposition: Home Condition: Stable Prescriptions: Continued fluoxetine 10 mg capsule 10 mg PO DAILY@ RF: 0 carbidopa-levodopa 10-100 mg tablet,disintegrating 1 tab PO TID@ RF: 0 levothyroxine 50 mcg capsule 50 mcg PO DAILY@ RF: 0 tolterodine 2 mg tablet 2 mg PO BID@ RF: 0 lisinopril 2.5 mg tablet 2.5 mg PO DAILY Qty: 30 RF: 6 carvedilol 6.25 mg tablet See Rx Instructions .ROUTE .COMPLEX Qty: 60 RF: 5 tramadol 50 mg Tablet 50 mg PO Q6H PRN (Reason: Pain) RF: 0 cholecalciferol (vitamin D3) [Vitamin D3] 25 mcg (1,000 unit) Capsule 25 mcg PO DAILY@0900 Qty: 0 RF: 0 nitroglycerin 0.4 mg Tablet, Sublingual 0.4 mg SUBLINGUAL Q5M PRN (Reason: Chest Pain) RF: 0 rosuvastatin 10 mg tablet 10 mg PO DAILY@09 RF: 0 fluticasone propion-salmeterol [Advair Diskus] 250-50 mcg/dose blister with device 1 inh inhalation BID@899,2099 RF: 0 polyethylene glycol 3350 [Miralax] 17 gram powder in packet 17 g PO DAILY@00 PRN (Reason: Constipation) RF: 0 isosorbide mononitrate 30 mg Tablet Extended Release 24 Hr 15 mg PO BID@899,2099 RF: 0 albuterol sulfate 90 mcg/actuation Hfa Aerosol Inhaler 1 inh INHALATION Q6H PRN (Reason: Shortness Of Breath) RF: 0 nystatin [Nystop] 100,000 unit/gram Powder 1 applic topical BID PRN (Reason: rash) Qty: 60 RF: 0 potassium chloride [Klor-Con 10] 10 mEq tablet extended release 20 meq PO BID@ RF: 0 ferrous gluconate 324 mg (37.5 mg iron) tablet 324 mg PO BID@ RF: 0 sennosides-docusate sodium 8.6-50 mg tablet 2 tab PO BID PRN (Reason: Constipation) RF: 0 pantoprazole 40 mg tablet,delayed release (DR/EC) 40 mg PO BID@0900,2100 RF: 0 ipratropium-albuterol 0.5 mg-3 mg(2.5 mg base)/3 mL Solution For Nebulization 3 ml inhalation Q6H.RESPIRATORY Qty: 270 RF: 0 bumetanide 1 mg Tablet 2 mg PO DAILY Qty: 60 RF: 0 warfarin [Jantoven] 3 mg Tablet 3 mg PO DAILY@1400 MDD see pharmacy comment *HELD* Qty: 30 RF: 0 Held bumetanide 1 mg Tablet 1 mg PO DAILY@1600 Qty: 30 RF: 0 Hold Instructions: Resume on 08/13/21. Discontinued metoprolol tartrate 25 mg Tablet 25 mg PO DAILY RF: 0 Discharge Orders: Discharge Order (Routine); Ordered 07/30/21 Ordered By: Serg Perales Referrals: Surinder Mays MD [Physician] - 1 month (Please call to make a follow up appointment in one month. ) Michael Hampton DO [Primary Care Provider] - 08/13/21 9:20 am Discharge Diet: Cardiac Patient Instructions: Anemia, Elevated INR (DC), Hypernatremia (DC), Encephalopathy (DC), COPD Stoplight, Opioid Safety Discharge Attestations Time Spent in Discharge Care*: less than 30 min Specific Discharge Activities: educating patient, educating and/or supporting family/caregiver, discussing with pcp/other providers, documenting/other paperwork and evaluating patient/reviewing data Status at Discharge: Cognitive status at discharge: cognitively intact, Behavioral status at discharge: cooperative, Quality Metrics Clinical Quality Measures During this hospital stay, did patient experience: None Coding Level of Care Code Acute Chg FW DC note Exam Detailed Diagnoses Acute and chronic respiratory failure with hypercapnia J96.22 COPD (chronic obstructive pulmonary disease) J42 COPD type: chronic bronchitis Chronic bronchitis type: unspecified Acute encephalopathy G93.40 CHF (congestive heart failure) I50.32 Heart failure chronicity: chronic Heart failure type: diastolic Hypernatremia E87.0 Subtherapeutic international normalized ratio (INR) R79.1 Afib I48.11 Atrial fibrillation type: longstanding persistent Pulmonary hypertension I27.20 Mitral valve replaced Z95.2 Anemia D64.9
[2021-07-30] MEDS: warfarin 3 mg Tablet PO (14:30)
--- NOTE | 2021-07-30 14:36 | PC.CHAP ---
Pastoral Care Encounter/Spiritual Assessment Type of Contact [] Declined seam steamer visit [] Patient/Family/Request visit [] Outpatient visit [] Follow-up visit [] Physician referral [] Code/Alert [xx] Routine visit [] Staff referral [] Actively dying [] Patient sleeping [] Family support [] [] Out of room [] Palliative care [] [] Receiving care in room [] Pre-surgical visit [] Trauma [] Long length of stay [] ICU visit [] Other: Relational/Emotional Strength [xx] Patient feels connected with others/family/visitors/staff [] Distress [] Loneliness/isolation [] Abandonment Spirituality of Patient [xx] Person of Vivian [] Attends Bahai of their Vivian [xx] Believes in Prayer [x] Reads Bible or Gnosticist materials [] There are Spiritual issues to be addressed Fishing Captain Interventions [xx] Prayer [xx] Active listening [xx] Non-anxious presence [] Spiritual/emotional support [] Crisis/trauma care [] Spiritual counseling [] Bereavement support [] Provided bereavement packet [xx] Provided Bible/devotional materials [] Provided toy/stuffed animal, coloring book to patient or family member [] Provided Communion [] Anointing/Lititz [] Salvation [xx] Completed spiritual assessment [] Other: Impact on Illness or Injury [] Angry [] Fearful [] Anxious [] Often cries [] Exhaustion [] Unable to work [] Unable to attend methodist [] Unable to walk/stand [] Unable to read [] Unable to drive [] Unable to eat/drink [] Unable to sleep [] Unable to be with family [] Patient intubated [] Other: Summary Patient stated she is feeling good and believes she is being discharged by end of today. Time spent with patient 4 minutes
--- NOTE | 2021-08-02 11:01 | PC.SOCIAL ---
discharge follow up call made, spoke with patients grand daughterTania. Discussed to hold Bumetanide until 08-13 and to discontinue metoprolol. Java Golden Gate Developer spoke with dr. rahman's office, scheduled patient for a follow up 08-03 to see Fito Martinez, at this time residential mortgage underwriter spoke with Fito's nurse and asked about patient taking potassium, nurse instructed residential mortgage underwriter to have patient discontinue potassium until follow up. residential mortgage underwriter discussed this with pts grand daughter. also grand daughter is aware of follow up appointment with DR. Mays on 09-07. Grand daughter denies any further questions or concerns.
== END 2021-07-30 16:18 | disposition home health service (06) | DRG 189 ==
LOC: ER 14:10 → MEDSURG 16:55
PROVIDERS: Admitting Provider Internal Medicine; Emergency Provider Family Medicine; PCP Family Medicine; Visit Provider Internal Medicine
DX: J96.22 Acute and chronic respiratory failure with hypercapnia (principal); G93.41 Metabolic encephalopathy; I50.32 Chronic diastolic (congestive) heart failure; E87.0 Hyperosmolality and hypernatremia; I48.11 Longstanding persistent atrial fibrillation; J42 Unspecified chronic bronchitis; I11.0 Hypertensive heart disease with heart failure; I27.20 Pulmonary hypertension, unspecified; I25.10 Atherosclerotic heart disease of native coronary artery without angina pectoris; D50.9 Iron deficiency anemia, unspecified; R79.1 Abnormal coagulation profile; K21.9 Gastro-esophageal reflux disease without esophagitis; G20 Parkinson's disease; E03.9 Hypothyroidism, unspecified; G47.33 Obstructive sleep apnea (adult) (pediatric); Z79.01 Long term (current) use of anticoagulants; Z95.2 Presence of prosthetic heart valve; Z99.81 Dependence on supplemental oxygen; Z87.891 Personal history of nicotine dependence; Z96.652 Presence of left artificial knee joint; Z82.49 Family history of ischemic heart disease and other diseases of the circulatory system
CPT/HCPCS: 36415; 36600; 71045; 80051; 80053; 81003; 82330; 82550; 82805; 83605; 83735; 83880; 84145; 84484; 85025; 85610; 93005; 94640; 94660; 96374; 99285; J0456; J2920; J2930; J7050

== ENCOUNTER 2021-08-09 09:59 | Inpatient (IN) | payer MEDICARE, MEDICAID, SELFPAY ==
[2021-08-09] VITALS (12 sets, daily range): BP systolic 123–126; BP diastolic 34–84; PULSE 59–87; RESP 18–28; TEMP 36.7; O2SAT 93–100; BMI 25.0
--- NOTE | 2021-08-09 10:10 | XR_ITS ---
WS: [id number] XR chest 1V portable [id number] REASON FOR EXAM: AMS FINDINGS: The chest is unchanged compared to 07/28/2021. Moderate tortuosity the thoracic aorta. Cardiomegaly. Worsening aortic valve. Calcified granulomatous disease with no active pulmonary parenchymal or pleural disease. Degenerative changes in the lower thoracic spine. XR/XR chest 1V portable [id number] IMPRESSION: Stable chest with no acute abnormality.
--- NOTE | 2021-08-09 10:10 | CT_ITS ---
WS: [id number] CT HEAD NONCONTRAST HISTORY: AMS TECHNIQUE: Contiguous axial imaging performed through the brain in 2.5 mm imaging. Bone and soft tiss ue windows. Sagittal and coronal reformats reviewed. All CT scans at [facility] use at least one of these dose optimization techniques: automated exposure control; mA and/or kV adjustment per pa tient size (includes targeted exams where dose is matched to clinical indication); or iterative recon struction. DLP: 1855.87 mGy.cm COMPARISON: 06/22/2021 No acute intracranial hemorrhage, midline shift or mass effect. Very mild atrophy and chronic microvascular ischemic disease. No prior infarcts. Ventricles: Normal size with no hydrocephalus. Paranasal sinuses: As visualized are clear. Mastoid air cells: Well pneumatized. Calvarium and scalp: Skull is intact with no soft tissue edema or swelling. CT/CT head wo con* [id number] IMPRESSION: 1. No acute intracranial hemorrhage or edema. 2. Mild atrophy and mild chronic microvascular ischemic disease.
--- NOTE | 2021-08-09 10:11 | ECG_ITS ---
[facility] Test Date: 2021-08-09 Pat Name: Iris Garcia Department: Room: Gender: Female Heating And Cooling Technician: : 1940 Requested By: Zoie Tovar Order Number: [id number] Krupa MD: Cas Galvez M.D. Measurements Intervals [place] Rate: 61 P: [place]: QRS: 50 QRSD: 93 T: 44 QT: 414 QTc: 417 Interpretive Statements SUPRAVENTRICULAR RHYTHM NONSPECIFIC ST & T-WAVE ABNORMALITY Compared to ECG 07/28/2021 20:50:44 Supraventricular rhythm now present T-wave abnormality now present Sinus rhythm no longer present First degree AV block no longer present Electronically Signed On 08-09-2021 15:16:07 CDT by Cas Galevz M.D. [id number]
--- NOTE | 2021-08-09 10:12 | ED_ITS ---
Documented by User: NASIR Duran 08/09/21 11:17 HPI - Altered Mental Status General: Chief Complaint: General Medical Stated Complaint: AMS,LETHARGIC,DEMENTIA Time Seen by Provider: 08/09/21 10:09 Source: patient and EMS Mode of arrival: EMS Limitations: altered mental status History of Present Illness: HPI narrative: Patient is an 81-year-old female who presents to ED today via EMS after they were called for family for concerns of altered mental status. Patient upon arrival can tell me her name and date of . She knows it was her birthday yesterday and tells me she turned 89 (actual [age] is [age]). She does not know location. When asked why family brought her to the ED she tells me that I was talking out of my mind . She is not complaining of pain anywhere. Patient tells me she is normally on 2L O2. She arrives on this amount and is satting well. Patient has had multiple admissions recently for various reasons including hypercapnic respiratory failure, CHF, bacteremia, pneumonia. Patient herself is a very poor historian. Family has not arrived yet to provide further history. arrives later and states patient was complaining of SOB this morning. She was wearing her normal 2L and states her sats were 95%. He also states she was not wanting to take her medications this morning. MD complaint: altered mental status, confusion, decreased responsiveness and weakness Timing confirmed by: family member Review of Systems General: Reports: ROS unobtainable due to medical condition, ROS unobtainable due to mental status and Other (felt to not be very reliable given her AMS/dementia) [facility] ED PFSH: Medical History Acute exacerbation of COPD with asthma Afib Anemia -baseline Hg around 9-10 -follow with Dr Bullock CAD (coronary artery disease) Chronic anticoagulation Due to mechanical mitral valve; coumadin Chronic hypercapnic respiratory failure Depression Diastolic CHF GERD (gastroesophageal reflux disease) PPI HTN (hypertension) Hypothyroidism -continue levothyroxine Iron deficiency anemia Has required transfusion in past, last egd and colonoscopy ~2017 with diverticulosis and internal hemorrhoids, SONYA (obstructive sleep apnea) Parkinson disease Follows up with Dr. Rainey in [facility] Surgical History History of bilateral tubal ligation History of cholecystectomy History of total knee arthroplasty Left Mitral valve replaced Mechanical, on coumadin Family History Mother CAD (coronary artery disease) Diabetes Other Hypertension Social History Smoking and tobacco status: former smoker Quit status (tobacco): has quit using tobacco Year quit tobacco: 1994 PPD x 15 Years Second hand smoke exposure: No Smoking risk assessment/counseling performed?: No Alcohol intake: never Counseling given: No Counseling given: No Caregiver/support person: Yes Household members: spouse and children Housing: House Marital status: Current occupational status: retired and disabled History of recent travel: No Current gender identity: Female Physical Exam Const: COMMON NORMALS: no acute distress and alert NUTRITIONAL APPEARANCE: overweight ORIENTATION/CONSCIOUSNESS: Yes awake and Yes oriented to person OTHER: appears drowsy but awakens and responds to questioning/commands appropriately HENMT: COMMON NORMALS: normocephalic and atraumatic HEAD & SCALP: normocephalic and atraumatic Resp: EFFORT & INSPECTION: No grunting, No stridor, No Actively coughing and Yes uses accessory muscles (mild) AUSCULTATION: wheezes Cardio: COMMON NORMALS: regular rate RATE: regular rate RHYTHM: abnormal rhythm GI: COMMON NORMALS: Normal to inspection, nondistended, normoactive bowel sounds present, Soft to palpation, non-tender, No hepatosplenomegaly present and no masses PALPATION: Yes Soft to palpation and Yes No hepatosplenomegaly p resent Extremity: NARRATIVE EXTREMITY EXAM: chronic bilateral LE venous stasis changes GENERAL: Yes normal exam except as noted Neuro: RASHID COMA SCALE: document GCS findings Rashid coma scale eye openin g: Spontaneous Rashid coma scale verbal response: Orientated [place] coma scale motor response: Obey commands [place] coma scale total score: 15 COMMON NORMALS: CN's II-XII intact bilaterally, moves all extremities, no focal motor deficits and no sensory deficits noted SENSORIUM/ORIENTATION: Yes alert and Yes oriented to person Course ED course: ABG showing CO2 of over 70. Will go ahead and placed on BiPAP. Spoke to Dr. Dunn as patient will most likely be an admit and he will assume care. Vital Signs: Vital signs: Vital Signs Temperature 98 F 08/11/21 12:00 Pulse Rate 85 08/11/21 14:43 Respiratory Rate 22 H 08/11/21 14:37 Blood Pressure 127/71 08/11/21 12:00 Pulse Oximetry 98 08/11/21 14:37 MDM - Altered Mental Status Lab Data: Labs: Lab Results 08/09/21 08/09/21 08/09/21 10:30 10:30 10:30 WBC 5.0 10^3/uL 10^3/ uL (4.0-10.0) RBC 3.31 10^6/uL L 10 ^6/uL (4.1-5.3) Hgb 9.7 g/dL L g/dL (11.5-15.3) Hct 32.8 % L % (37.0-47.0) MCV 99.1 fl H fl (81-99) MCH 29.3 pg pg (28.0-34.0) MCHC 29.6 g/dL L g/dL (30.0-36.0) RDW 16.4 % H % (12.1-15.1) Plt Count 135 10^3/cmm 10^3 /cmm (130-400) MPV 10.0 fL fL (7.4-10.4) Neut % (Auto) 74.5 % % Lymph % (Auto) 13.5 % % [place] % (Auto) 9.6 % % Eos % (Auto) 1.8 % % Baso % (Auto) 0.4 % % Neut # (Auto) 3.71 10^3/uL 10^3 /uL (1.8-7.7) Lymph # (Auto) 0.7 10^3/uL L 10^ 3/uL (0.8-4.8) [place] # (Auto) 0.5 10^3/uL 10^3/ uL (0.2-0.9) Eos # (Auto) 0.1 10^3/uL 10^3/ uL (0.0-0.8) Baso # (Auto) 0.0 10^3/uL 10^3/ uL (0.0-0.1) Nucleated RBC % (a uto) 0 % % Nucleated RBCs # 0.0 /100WBC /100W BC PT INR Specimen Type Sample Site ABG pH ABG pCO2 ABG pO2 ABG HCO3 ABG O2 Saturation ABG Base Excess César Test A-a O2 Gradient Hematocrit Hgb O2 Saturation Carboxyhemoglobin Methemoglobin Total Hemoglobin Ionized Calcium O2 Delivery Device O2 Liters/Min FiO2 Scaffold Erector ID Sodium 146 mmol/L H mmol /L (136-145) Potassium 4.4 mmol/L mmol/L (3.5-5.1) Chloride 107 mmol/L mmol/L (98-107) Carbon Dioxide 38 mmol/L H mmol/ L (22-29) Anion Gap 5.4 (5-19) BUN 7 mg/dL L mg/dL (8-23) Creatinine 0.6 mg/dL mg/dL (0.5-0.9) GFR Calculation Not Reportable Glucose 104 mg/dL mg/dL (65-115) Calculated Osmolal ity 300 mOsm/kg H mOs m/kg (285-295) Lactic Acid 0.4 mmol/L L mmol /L (0.5-2.2) Calcium 8.0 mg/dL L mg/dL (8.5-10.5) Total Bilirubin 0.8 mg/dL mg/dL (0.15-1.2) AST 11 U/L U/L (0-32) ALT < 5 U/L U/L (0-33) Alkaline Phosphata se 126 IU/L H IU/L (35-105) Troponin T Baselin e Troponin T 120 Min kaibab Delta Troponin T NT-Pro-B Natriuret Pep 860 pg/mL H pg/mL (0-450) Total Protein 5.6 g/dL L g/dL (6.6-8.7) Albumin 3.5 g/dL g/dL (3.5-5.2) Globulin 2.1 g/dL g/dL (1.3-4.6) TSH 2.02 uIU/mL uIU/m L (0.27-4.20) Urine Color Urine Appearance Urine pH Ur Specific Gravit y Urine Protein Urine Glucose (UA) Urine Ketones Urine Blood Urine Nitrate Urine Bilirubin Urine Urobilinogen Ur Leukocyte Carlyn ase Urine RBC Urine WBC Ur Squamous Epith Cells Amorphous Sediment Urine Bacteria 08/09/21 08/09/21 08/09/21 10:30 10:30 10:57 WBC RBC Hgb Hct MCV MCH MCHC RDW Plt Count MPV Neut % (Auto) Lymph % (Auto) [place] % (Auto) Eos % (Auto) Baso % (Auto) Neut # (Auto) Lymph # (Auto) [place] # (Auto) Eos # (Auto) Baso # (Auto) Nucleated RBC % (a uto) Nucleated RBCs # PT 26.50 SECONDS H S ECONDS (12.1-14.9) INR 2.39 H (0.8-1.2) Specimen Type Arterial Sample Site Radial, left ABG pH 7.31 L (7.35-7.45) ABG pCO2 72.5 mmHg H* mmHg (35-45) ABG pO2 46.2 mmHg L mmHg (80.0-100.0) ABG HCO3 36.5 mmol/L H mmo l/L (22-26) ABG O2 Saturation 83.1 ABG Base Excess 8.4 mmol/L H mmol /L (-2.0-2.0) César Test Pos A-a O2 Gradient 8.4 mmHg mmHg (5-10) Hematocrit 29.6 % L % (37-47) Hgb O2 Saturation 80.9 % L % (95-100) Carboxyhemoglobin 1.8 %THgb %THgb (0.4-20.1) Methemoglobin 0.8 % % (0.4-1.5) Total Hemoglobin 9.7 g/dL L g/dL (12-16) Ionized Calcium 1.2 mmol/L mmol/L (1.1-1.4) O2 Delivery Device Nc O2 Liters/Min 2.0 % % FiO2 28.0 % % Scaffold Erector ID Ed Sodium 146.0 mmol/L H mm ol/L (131-143) Potassium 4.1 mmol/L mmol/L (3.5-5.0) Chloride Carbon Dioxide Anion Gap BUN Creatinine GFR Calculation Glucose 109.0 mg/dL mg/dL (70-115) Calculated Osmolal ity Lactic Acid Calcium Total Bilirubin AST ALT Alkaline Phosphata se Troponin T Baselin e 13 ng/L H ng/L (0-10) Troponin T 120 Min kaibab Delta Troponin T NT-Pro-B Natriuret Pep Total Protein Albumin Globulin TSH Urine Color Urine Appearance Urine pH Ur Specific Gravit y Urine Protein Urine Glucose (UA) Urine Ketones Urine Blood Urine Nitrate Urine Bilirubin Urine Urobilinogen Ur Leukocyte Carlyn ase Urine RBC Urine WBC Ur Squamous Epith Cells Amorphous Sediment Urine Bacteria 08/09/21 08/09/21 12:22 12:30 WBC RBC Hgb Hct MCV MCH MCHC RDW Plt Count MPV Neut % (Auto) Lymph % (Auto) [place] % (Auto) Eos % (Auto) Baso % (Auto) Neut # (Auto) Lymph # (Auto) [place] # (Auto) Eos # (Auto) Baso # (Auto) Nucleated RBC % (a uto) Nucleated RBCs # PT INR Specimen Type Sample Site ABG pH ABG pCO2 ABG pO2 ABG HCO3 ABG O2 Saturation ABG Base Excess César Test A-a O2 Gradient Hematocrit Hgb O2 Saturation Carboxyhemoglobin Methemoglobin Total Hemoglobin Ionized Calcium O2 Delivery Device O2 Liters/Min FiO2 Scaffold Erector ID Sodium Potassium Chloride Carbon Dioxide Anion Gap BUN Creatinine GFR Calculation Glucose Calculated Osmolal ity Lactic Acid Calcium Total Bilirubin AST ALT Alkaline Phosphata se Troponin T Baselin e Troponin T 120 Min kaibab 14.09 ng/L H ng/L (0-10) Delta Troponin T 1.09 ABS# ABS# (0-10) NT-Pro-B Natriuret Pep Total Protein Albumin Globulin TSH Urine Color Yellow (Yellow) Urine Appearance Clear (CLEAR) Urine pH 5 (5-7) Ur Specific Gravit y 1.010 (1.005-1.030) Urine Protein Neg (Negative) Urine Glucose (UA) Norm (Normal) Urine Ketones Negative (Negative) Urine Blood 2+ H (Negative) Urine Nitrate Negative (Negative) Urine Bilirubin Neg (Negative) Urine Urobilinogen Norm mg/dL mg/dL (Negative) Ur Leukocyte Carlyn ase Negative (Negative) Urine RBC 0-4 /hpf H /hpf (0-2) Urine WBC None /hpf /hpf (0-5) Ur Squamous Epith Cells None /hpf /hpf (0-5) Amorphous Sediment Not Reportable Urine Bacteria None /hpf /hpf (NONE) Imaging Data^: CXR: Radiologist's impression: [facility] [address] [place] [address] XRay Report Signed Patient: Iris Garcia Unit #: [id number] : 1940 Age/Sex: 81 / F ADM Date: 08/09/21 Loc: ER Room/Bed: Attending Dr: Ordering Provider/Ordering MD: Zoie Tovar Date of Service: 08/09/21 Procedure(s): XR chest 1V portable [id number] Accession Number(s): [id number] Report Number: [id number] WS: [id number] XR chest 1V portable [id number] REASON FOR EXAM: AMS FINDINGS: The chest is unchanged compared to 07/28/2021. Moderate tortuosity the thoracic aorta. Cardiomegaly. Worsening aortic valve. Calcified granulomatous disease with no active pulmonary parenchymal or pleural disease. Degenerative changes in the lower thoracic spine. XR/XR chest 1V portable [id number] IMPRESSION: Stable chest with no acute abnormality. Dictated By: Lg Conklin Jr, MD Signed By: Lg Conklin Jr, MD Signed Date/Time: 08/09/21 1028 DD/ 1026 CT Head: Radiologist's impression: [address] [id number] Scan ReportSigned Patient: Iris Garcia SUnit #: [id number]: 1940cct#:[id number]/Sex: 81 / FADM Date: 08/09/21Loc: ERRoom/Bed:Attending Dr: Ordering Provider/Ordering MD: Zoie Tovar Date of Service: 08/09/21 Procedure(s): CT head wo con* [id number] Accession Number(s): [id number] Report Number: [id number] WS: [id number] CT HEAD NONCONTRAST HISTORY: AMS TECHNIQUE: Contiguous axial imaging performed through the brain in 2.5 mm imaging. Bone and soft tissue windows. Sagittal and coronal reformats reviewed. All CT scans at [facility] use at least one of these dose optimization techniques: automated exposure control; mA and/or kV adjustment per patient size (includes targeted exams where dose is matched to clinical indication); or iterative reconstruction. DLP: 1855.87 mGy.cm COMPARISON: 06/22/2021 No acute intracranial hemorrhage, midline shift or mass effect. Very mild atrophy and chronic microvascular ischemic disease. No prior infarcts. Ventricles: Normal size with no hydrocephalus. Paranasal sinuses: As visualized are clear. Mastoid air cells: Well pneumatized. Calvarium and scalp: Skull is intact with no soft tissue edema or swelling. CT/CT head wo con* [id number] IMPRESSION: 1. No acute intracranial hemorrhage or edema. 2. Mild atrophy and mild chronic microvascular ischemic disease. Dictated By:Hillary Crawley DOSigned By:Hillary Crawley DOSigned Date/Time:08/09/21 1059DD/ 1058 Discharge Plan Discharge Patient Disposition: Admitted As Inpatient Admit Provider: Serg Perales Clinical Impression: Acute exacerbation of chronic obstructive airways disease, Acute and chronic respiratory failure with hypercapnia Condition: Stable Sign Out Sign Out Data: Patient Sign Out occurred on 08/09/21 at 11:28. Patient's care was discussed, and care was transferred from to Shon Dunn MD. Coding Level of Care Code ED Rim Turning Machine Operator for Chg Fwd Exam Detailed Documented by User: Shon Dunn MD 08/11/21 16:57 HPI - Altered Mental Status General: Chief Complaint: General Medical Stated Complaint: AMS,LETHARGIC,DEMENTIA Time Seen by Provider: 08/09/21 10:09 [facility] ED PFSH: Medical History Acute exacerbation of COPD with asthma Afib Anemia -baseline Hg around 9-10 -follow with Dr Bullock CAD (coronary artery disease) Chronic anticoagulation Due to mechanical mitral valve; coumadin Chronic hypercapnic respiratory failure Depression Diastolic CHF GERD (gastroesophageal reflux disease) PPI HTN (hypertension) Hypothyroidism -continue levothyroxine Iron deficiency anemia Has required transfusion in past, last egd and colonoscopy ~2017 with diverticulosis and internal hemorrhoids, SONYA (obstructive sleep apnea) Parkinson disease Follows up with Dr. Rainey in [facility] Surgical History History of bilateral tubal ligation History of cholecystectomy History of total knee arthroplasty Left Mitral valve replaced Mechanical, on coumadin Family History Mother CAD (coronary artery disease) Diabetes Other Hypertension Social History Smoking and tobacco status: former smoker Quit status (tobacco): has quit using tobacco Year quit tobacco: 1994 PPD x 15 Years Second hand smoke exposure: No Smoking risk assessment/counseling performed?: No Alcohol intake: never Counseling given: No Counseling given: No Caregiver/support person: Yes Household members: spouse and children Housing: House Marital status: Current occupational status: retired and disabled History of recent travel: No Current gender identity: Female Course Vital Signs: Vital signs: Vital Signs Temperature 98 F 08/11/21 12:00 Pulse Rate 85 08/11/21 14:43 Respiratory Rate 22 H 08/11/21 14:37 Blood Pressure 127/71 08/11/21 12:00 Pulse Oximetry 98 08/11/21 14:37 MDM - Altered Mental Status MDM Narrative: Medical decision making narrative: Patient care reviewed with NASIR Duran. I have reviewed documentation and personally reperformed HPI, ROS, physical exam, I reviewed labs and imaging as well as EKG as appropriate and agree with documentation. Discussed case with hospitalist who will evaluate the patient, challenging situation given that patient has such frequent admissions and such severe COPD had very little is needed to cause hypercapnia symptoms. Current situation is likely secondary to one variable use of CPAP at home, as with prior admissions. Shon Dunn MD Emergency Medicine Lab Data: Labs: Lab Results 08/09/21 08/09/21 08/09/21 10:30 10:30 10:30 WBC 5.0 10^3/uL 10^3/ uL (4.0-10.0) RBC 3.31 10^6/uL L 10 ^6/uL (4.1-5.3) Hgb 9.7 g/dL L g/dL (11.5-15.3) Hct 32.8 % L % (37.0-47.0) MCV 99.1 fl H fl (81-99) MCH 29.3 pg pg (28.0-34.0) MCHC 29.6 g/dL L g/dL (30.0-36.0) RDW 16.4 % H % (12.1-15.1) Plt Count 135 10^3/cmm 10^3 /cmm (130-400) MPV 10.0 fL fL (7.4-10.4) Neut % (Auto) 74.5 % % Lymph % (Auto) 13.5 % % [place] % (Auto) 9.6 % % Eos % (Auto) 1.8 % % Baso % (Auto) 0.4 % % Neut # (Auto) 3.71 10^3/uL 10^3 /uL (1.8-7.7) Lymph # (Auto) 0.7 10^3/uL L 10^ 3/uL (0.8-4.8) [place] # (Auto) 0.5 10^3/uL 10^3/ uL (0.2-0.9) Eos # (Auto) 0.1 10^3/uL 10^3/ uL (0.0-0.8) Baso # (Auto) 0.0 10^3/uL 10^3/ uL (0.0-0.1) Nucleated RBC % (a uto) 0 % % Nucleated RBCs # 0.0 /100WBC /100W BC PT INR Specimen Type Sample Site ABG pH ABG pCO2 ABG pO2 ABG HCO3 ABG O2 Saturation ABG Base Excess César Test A-a O2 Gradient Hematocrit Hgb O2 Saturation Carboxyhemoglobin Methemoglobin Total Hemoglobin Ionized Calcium O2 Delivery Device O2 Liters/Min FiO2 Scaffold Erector ID Sodium 146 mmol/L H mmol /L (136-145) Potassium 4.4 mmol/L mmol/L (3.5-5.1) Chloride 107 mmol/L mmol/L (98-107) Carbon Dioxide 38 mmol/L H mmol/ L (22-29) Anion Gap 5.4 (5-19) BUN 7 mg/dL L mg/dL (8-23) Creatinine 0.6 mg/dL mg/dL (0.5-0.9) GFR Calculation Not Reportable Glucose 104 mg/dL mg/dL (65-115) Calculated Osmolal ity 300 mOsm/kg H mOs m/kg (285-295) Lactic Acid 0.4 mmol/L L mmol /L (0.5-2.2) Calcium 8.0 mg/dL L mg/dL (8.5-10.5) Total Bilirubin 0.8 mg/dL mg/dL (0.15-1.2) AST 11 U/L U/L (0-32) ALT < 5 U/L U/L (0-33) Alkaline Phosphata se 126 IU/L H IU/L (35-105) Troponin T Baselin e Troponin T 120 Min kaibab Delta Troponin T NT-Pro-B Natriuret Pep 860 pg/mL H pg/mL (0-450) Total Protein 5.6 g/dL L g/dL (6.6-8.7) Albumin 3.5 g/dL g/dL (3.5-5.2) Globulin 2.1 g/dL g/dL (1.3-4.6) TSH 2.02 uIU/mL uIU/m L (0.27-4.20) Urine Color Urine Appearance Urine pH Ur Specific Gravit y Urine Protein Urine Glucose (UA) Urine Ketones Urine Blood Urine Nitrate Urine Bilirubin Urine Urobilinogen Ur Leukocyte Carlyn ase Urine RBC Urine WBC Ur Squamous Epith Cells Amorphous Sediment Urine Bacteria 08/09/21 08/09/21 08/09/21 10:30 10:30 10:57 WBC RBC Hgb Hct MCV MCH MCHC RDW Plt Count MPV Neut % (Auto) Lymph % (Auto) [place] % (Auto) Eos % (Auto) Baso % (Auto) Neut # (Auto) Lymph # (Auto) [place] # (Auto) Eos # (Auto) Baso # (Auto) Nucleated RBC % (a uto) Nucleated RBCs # PT 26.50 SECONDS H S ECONDS (12.1-14.9) INR 2.39 H (0.8-1.2) Specimen Type Arterial Sample Site Radial, left ABG pH 7.31 L (7.35-7.45) ABG pCO2 72.5 mmHg H* mmHg (35-45) ABG pO2 46.2 mmHg L mmHg (80.0-100.0) ABG HCO3 36.5 mmol/L H mmo l/L (22-26) ABG O2 Saturation 83.1 ABG Base Excess 8.4 mmol/L H mmol /L (-2.0-2.0) César Test Pos A-a O2 Gradient 8.4 mmHg mmHg (5-10) Hematocrit 29.6 % L % (37-47) Hgb O2 Saturation 80.9 % L % (95-100) Carboxyhemoglobin 1.8 %THgb %THgb (0.4-20.1) Methemoglobin 0.8 % % (0.4-1.5) Total Hemoglobin 9.7 g/dL L g/dL (12-16) Ionized Calcium 1.2 mmol/L mmol/L (1.1-1.4) O2 Delivery Device Nc O2 Liters/Min 2.0 % % FiO2 28.0 % % Scaffold Erector ID Ed Sodium 146.0 mmol/L H mm ol/L (131-143) Potassium 4.1 mmol/L mmol/L (3.5-5.0) Chloride Carbon Dioxide Anion Gap BUN Creatinine GFR Calculation Glucose 109.0 mg/dL mg/dL (70-115) Calculated Osmolal ity Lactic Acid Calcium Total Bilirubin AST ALT Alkaline Phosphata se Troponin T Baselin e 13 ng/L H ng/L (0-10) Troponin T 120 Min kaibab Delta Troponin T NT-Pro-B Natriuret Pep Total Protein Albumin Globulin TSH Urine Color Urine Appearance Urine pH Ur Specific Gravit y Urine Protein Urine Glucose (UA) Urine Ketones Urine Blood Urine Nitrate Urine Bilirubin Urine Urobilinogen Ur Leukocyte Carlyn ase Urine RBC Urine WBC Ur Squamous Epith Cells Amorphous Sediment Urine Bacteria 08/09/21 08/09/21 12:22 12:30 WBC RBC Hgb Hct MCV MCH MCHC RDW Plt Count MPV Neut % (Auto) Lymph % (Auto) [place] % (Auto) Eos % (Auto) Baso % (Auto) Neut # (Auto) Lymph # (Auto) [place] # (Auto) Eos # (Auto) Baso # (Auto) Nucleated RBC % (a uto) Nucleated RBCs # PT INR Specimen Type Sample Site ABG pH ABG pCO2 ABG pO2 ABG HCO3 ABG O2 Saturation ABG Base Excess César Test A-a O2 Gradient Hematocrit Hgb O2 Saturation Carboxyhemoglobin Methemoglobin Total Hemoglobin Ionized Calcium O2 Delivery Device O2 Liters/Min FiO2 Scaffold Erector ID Sodium Potassium Chloride Carbon Dioxide Anion Gap BUN Creatinine GFR Calculation Glucose Calculated Osmolal ity Lactic Acid Calcium Total Bilirubin AST ALT Alkaline Phosphata se Troponin T Baselin e Troponin T 120 Min kaibab 14.09 ng/L H ng/L (0-10) Delta Troponin T 1.09 ABS# ABS# (0-10) NT-Pro-B Natriuret Pep Total Protein Albumin Globulin TSH Urine Color Yellow (Yellow) Urine Appearance Clear (CLEAR) Urine pH 5 (5-7) Ur Specific Gravit y 1.010 (1.005-1.030) Urine Protein Neg (Negative) Urine Glucose (UA) Norm (Normal) Urine Ketones Negative (Negative) Urine Blood 2+ H (Negative) Urine Nitrate Negative (Negative) Urine Bilirubin Neg (Negative) Urine Urobilinogen Norm mg/dL mg/dL (Negative) Ur Leukocyte Carlyn ase Negative (Negative) Urine RBC 0-4 /hpf H /hpf (0-2) Urine WBC None /hpf /hpf (0-5) Ur Squamous Epith Cells None /hpf /hpf (0-5) Amorphous Sediment Not Reportable Urine Bacteria None /hpf /hpf (NONE) Discharge Plan Discharge Patient Disposition: Admitted As Inpatient Admit Provider: Serg Perales Clinical Impression: Acute exacerbation of chronic obstructive airways disease, Acute and chronic respiratory failure with hypercapnia Condition: Stable Sign Out Sign Out Data: Patient Sign Out occurred on 08/09/21 at 11:28. Patient's care was discussed, and care was transferred from to Shon Dunn MD. Coding Level of Care Code ED Rim Turning Machine Operator for Chg Fwd Exam Detailed
[2021-08-09 10:45] LABS: Basophils % 0.4 %; Eosinophils # 0.1 10^3/uL (0.0-0.8); Eosinophils % 1.8 %; Hematocrit 32.8 % (37.0-47.0); Hemoglobin 9.7 g/dL (11.5-15.3); Lymphocytes # 0.7 10^3/uL (0.8-4.8); Lymphocytes % 13.5 %; Mean Corpuscular HGB Conc 29.6 g/dL (30.0-36.0); Mean Corpuscular Hemoglobin 29.3 pg (28.0-34.0); Mean Corpuscular Volume 99.1 fl (81-99); Monocytes # 0.5 10^3/uL (0.2-0.9); Monocytes % 9.6 %; Neutrophils # 3.71 10^3/uL (1.8-7.7); Neutrophils % 74.5 %; Nucleated Red Blood Cells % 0 %; Platelet Count 135 10^3/cmm (130-400); Red Blood Count 3.31 10^6/uL (4.1-5.3); Red Cell Distribution Width 16.4 % (12.1-15.1)
[2021-08-09 10:55] LABS: INR 2.39 (0.8-1.2)
[2021-08-09 11:07] LABS: ABG PH Result 7.31 (7.35-7.45); Alveolar-Arterial Oxygen Gradi 8.4 mmHg (5-10); Arterial Blood Gas Hematocrit 29.6 % (37-47); Base Excess ABG 8.4 mmol/L (-2.0-2.0); Blood Gas Allen Test Pos; Blood Gas Operator Identificat ED; Blood Gas Sample Site Radial, left; Blood Gas Sample Type Arterial; Carboxyhemoglobin 1.8 %THgb (0.4-20.1); HCO3 ABG 36.5 mmol/L (22-26); HGB O2 Sat 80.9 % (95-100); Ionized Calcium Level - ABG 1.2 mmol/L (1.1-1.4); Methemoglobin 0.8 % (0.4-1.5); Oxygen Device NC; Oxygen Saturation ABG 83.1; PO2 ABG 46.2 mmHg (80.0-100.0); Potassium Level - ABG 4.1 mmol/L (3.5-5.0); Total Hemoglobin 9.7 g/dL (12-16)
[2021-08-09 11:08] LABS: Lactic Sepsis W/Reflex 0.4 mmol/L (0.5-2.2)
[2021-08-09 11:08] LABS: ABG PCO2 72.5 mmHg (35-45)
[2021-08-09 11:17] LABS: Alanine Aminotransferase < 5 U/L (0-33); Albumin Level 3.5 g/dL (3.5-5.2); Alkaline Phosphatase 126 IU/L (35-105); Anion Gap 5.4 (5-19); Aspartate Amino Transferase 11 U/L (0-32); Blood Urea Nitrogen 7 mg/dL (8-23); Carbon Dioxide 38 mmol/L (22-29); Chloride 107 mmol/L (98-107); Globulin 2.1 g/dL (1.3-4.6); Glucose 104 mg/dL (65-115); Osmolality Calculated 300 mOsm/kg (285-295); Potassium 4.4 mmol/L (3.5-5.1); Sodium 146 mmol/L (136-145); Total Bilirubin 0.8 mg/dL (0.15-1.2); Total Protein 5.6 g/dL (6.6-8.7)
[2021-08-09 11:18] LABS: Troponin(5th) Baseline 13 ng/L (0-10)
[2021-08-09] MEDS: ipratropium-albuterol 3 mL Neb INHALATION ×2 (11:36→20:53)
[2021-08-09] MEDS: doxycycline 100 MG in sodium chloride 0.9% (plus) 100 ML IV (11:46)
[2021-08-09 12:07] LABS: NT Pro B Type Natriuretic Pept 860 pg/mL (0-450)
--- NOTE | 2021-08-09 12:32 | ECG_ITS ---
[facility] Test Date: 2021-08-09 Pat Name: Iris Garcia Department: Room: Gender: Female Order Booker: : 1940 Requested By: Zoie Tovar Order Number: [id number] Krupa MD: Cas Galvez M.D. Measurements Intervals [place] Rate: 59 P: [place]: QRS: 96 QRSD: 109 T: 126 QT: 429 QTc: 427 Interpretive Statements ATRIAL FIBRILLATION WITH SLOW VENTRICULAR RESPONSE BORDERLINE RIGHT AXIS DEVIATION [QRS AXIS > 90] MODERATE INTRAVENTRICULAR CONDUCTION DELAY [105+ ms QRS DURATION, 80+ ms Q/S IN V1/V2, NO Q AND 60+ ms R IN I/aVL/V5/V6] MODERATE ST DEPRESSION [0.05+ mV ST DEPRESSION] Compared to ECG 08/09/2021 10:53:26 Intraventricular conduction delay now present ST (T wave) deviation now present Supraventricular rhythm no longer present T-wave abnormality no longer present Electronically Signed On 08-09-2021 15:15:12 CDT by Cas Galvez M.D. [id number]
[2021-08-09 12:41] LABS: Thyroid Stimulating Hormone 2.02 uIU/mL (0.27-4.20)
[2021-08-09 13:04] LABS: Troponin 5 2HR 14.09 ng/L (0-10); Troponin 5 2HR Delta 1.09 ABS# (0-10)
[2021-08-09 13:13] LABS: Add Urine Microscopic? YES; Bilirubin Urine Neg (Negative); Blood Urine 2+ (Negative); Glucose Urine UA Norm (Normal); Ketones Urine Negative (Negative); Leukocyte Esterase Urine Negative (Negative); Nitrate Urine Negative (Negative); Protein Urine Neg (Negative); Urine Appearance Clear (CLEAR); Urine Color Yellow (Yellow); Urobilinogen Urine Norm (Negative); pH Urine 5 (5-7)
[2021-08-09 13:21] LABS: RBC Urine 0-4 /hpf (0-2)
[2021-08-09 13:22] LABS: Add Urine Culture? No
--- NOTE | 2021-08-09 14:41 | PC.PHAR ---
PTS DAUGHTER JEAN-PAUL VERIFIED PTS MEDICATIONS-PT ALSO HAS HOME HEALTH FROM [facility]-PT DAUGHTER STATES THE BUMETANIDE 1MG AND 2MG WAS PUT ON HOLD PTS DAUGHTER STATES SHE GAVE THE PT 2MG LAST NIGHT AT 22:30 08-09-21-PTS DAUGHTER STATES THE PT TAKES IRON BID MED LIST FROM [facility] HAS DAILY- PTS DAUGHTER STATES THE PT KCL HAS BEEN PUT ON HOLD STATES THE PT HASNT HAD SINCE MONDAY-PTS DAUGHTER STATES THE PT TAKES 3MG OF WARFARIN EXT MED HISTORY SHOWS LAST FILLED ON 06/27/21 3D/S-PTS DAUGHTER STATES SHE IS UNSURE IF THE METOPROLOL TARTRATE 25MG WAS DCED EXT MED HISTORY SHOWS LAST FILLED ON 05/21/21 90D/S DISCHARGE PAPERS FROM 06/27/21 SHOWS THIS MEDICATION DCED-EXT MED HISTORY SHOWS CARVEDILOL 6.25MG BID FILLED ON 07/23/21 30D/S PTS MED LIST FROM [facility] HAS 3.125MG BID-NOTES ARE MADE IN THE PHARMACY COMMENTS
[2021-08-09 14:52] LABS: ABG PH Result 7.41 (7.35-7.45); Arterial Blood Gas Hematocrit 32.1 % (37-47); Base Excess ABG 11.7 mmol/L (-2.0-2.0); Blood Gas Allen Test Pos; Blood Gas Sample Type Arterial; HCO3 ABG 38.4 mmol/L (22-26); PO2 ABG 68.8 mmHg (80.0-100.0)
[2021-08-09 14:53] LABS: ABG PCO2 61.3 mmHg (35-45); Blood Gas Sample Site Radial, left; Oxygen Device BIPAP
--- NOTE | 2021-08-09 14:54 | PM.HP ---
Providers/Chief Complaint Primary Care Provider: Michael Hampton DO Chief Complaint: AMS,LETHARGIC,DEMENTIA History of Present Illness 80 y o f with PMH severe RLD, chronic hypercapneic respiratory failure, on trilogy at home, pulmonary hypertension, HFpEF, A fib brought to the ER today for worsening shortness of breath, as well as worsening mental status started this morning. Upon arrival in the ER she was worked up for above-mentioned: Imaging studies: CT head without contrast: No acute intracranial pathology X-ray chest: No infiltrates , no effusion, Calcified granulomatous disease with no active pulmonary parenchymal or pleural disease. EKG: Atrial fibrillation, with rate of 59. proBNP:860 ABG: pH : 7.41 PCO2:72. PO2: 68, FiO2 28 % Troponin trend without any significant delta. Review of Systems Narrative: Complete review of system could not be obtained , as she was on BiPAP and sleepy. Medications/Allergies Home Medications Medication Instructions Recorded Confirmed Last Taken Type fluoxetine 10 mg capsule 10 mg PO DAILY@ cap 11/06/19 08/09/21 07/28/21 History carbidopa 10 mg-levodopa 100 mg 1 tab PO TID@ tab 03/12/20 08/09/21 07/28/21 History disintegrating tablet tolterodine 2 mg tablet 2 mg PO BID@03/12/20 08/09/21 07/28/21 History ferrous gluconate 324 mg PO BID@11/10/20 08/09/21 07/28/21 History potassium chloride [Klor-Con 10] 20 meq PO BID@11/10/20 08/09/21 07/28/21 History sennosides-docusate sodium 2 tab PO BID PRN 11/10/20 08/09/21 06/22/21 History pantoprazole 40 mg PO BID@0900,209912/31/20 08/09/21 07/28/21 History cholecalciferol (vitamin D3) 25 mcg PO DAILY@0900 #0 02/12/21 08/09/21 07/28/21 History [Vitamin D3] fluticasone propion-salmeterol 1 inh INHALATION BID@0900,2100 02/12/21 08/09/21 07/28/21 History [Advair Diskus] nitroglycerin 0.4 mg SUBLINGUAL Q5M PRN 02/12/21 08/09/21 Unknown History rosuvastatin 10 mg PO DAILY@0900 02/12/21 08/09/21 07/28/21 History tramadol 50 mg PO Q6H PRN 02/12/21 08/09/21 Unknown History albuterol sulfate 1 inh INHALATION Q6H PRN 02/26/21 08/09/21 Unknown History isosorbide mononitrate 15 mg PO BID@0900,2100 02/26/21 08/09/21 07/28/21 History nystatin [Nystop] 1 applic TOPICAL BID PRN #60 g 03/01/21 08/09/21 Unknown Rx polyethylene glycol 3350 17 gram 17 g PO DAILY@0900 PRN 04/27/21 08/09/21 Unknown History oral powder packet lisinopril 2.5 mg tablet 2.5 mg PO DAILY #30 tab 06/09/21 08/09/21 07/28/21 Rx ipratropium-albuterol 3 ml INHALATION Q6H.RESPIRATORY 06/26/21 08/09/21 Unknown Rx #270 ml Jantoven 3 mg PO DAILY@1400 08/09/21 08/09/21 Unknown History acetaminophen [Tylenol] 325 - 650 mg PO Q4H PRN 08/09/21 08/09/21 Unknown History bumetanide 1 mg PO DAILY 08/09/21 08/09/21 Unknown History bumetanide 2 mg PO DAILY 08/09/21 08/09/21 08/08/21 22:30 History carvedilol 6.25 mg PO BID 08/09/21 08/09/21 Unknown History levothyroxine 50 mcg PO QAM 08/09/21 08/09/21 Unknown History Allergies Allergy/AdvReac Type Severity Reaction Status Date / Time penicillin G Allergy UNK Verified 08/09/21 14:41 PFSH Acute PFSH: Medical History Acute exacerbation of COPD with asthma Afib Anemia -baseline Hg around 9-10 -follow with Dr Bullock CAD (coronary artery disease) Chronic anticoagulation Due to mechanical mitral valve; coumadin Chronic hypercapnic respiratory failure Depression Diastolic CHF GERD (gastroesophageal reflux disease) PPI HTN (hypertension) Hypothyroidism -continue levothyroxine Iron deficiency anemia Has required transfusion in past, last egd and colonoscopy ~2017 with diverticulosis and internal hemorrhoids, SONYA (obstructive sleep apnea) Parkinson disease Follows up with Dr. Rainey in [facility]'s ring Weakness Surgical History History of bilateral tubal ligation History of cholecystectomy History of total knee arthroplasty Left Mitral valve replaced Mechanical, on coumadin Family History Mother CAD (coronary artery disease) Diabetes Other Hypertension Social History Smoking and tobacco status: former smoker Quit status (tobacco): has quit using tobacco Year quit tobacco: 1994 - PPD x 15 Years Second hand smoke exposure: No Smoking risk assessment/counseling performed?: No Alcohol intake: never Counseling given: No Counseling given: No Caregiver/support person: Yes Household members: spouse and children Housing: House Marital status: Current occupational status: retired and disabled History of recent travel: No Current gender identity: Female Vitals/I&O/Wt Last Vital Signs Temp 98.0 F 08/09/21 10:00 Pulse 61 08/09/21 13:55 Resp 26 H 08/09/21 11:37 BP 125/48 08/09/21 13:55 Pulse Ox 96 08/09/21 13:55 Weight last 48 hrs Weight 68.039 kg Physical Exam Narrative: EXAM NARRATIVE: Drowsy HENMT: COMMON NORMALS: normocephalic and atraumatic HEAD & SCALP: normocephalic and atraumatic Resp: OTHER: Diminished air entry bilaterally, minimal basal crackles bilateral Cardio: OTHER: S1/S2 variable intensity, mechanical mitral click present GI: COMMON NORMALS: Normal to inspection, nondistended, normoactive bowel sounds present, Soft to palpation, non-tender, No hepatosplenomegaly present and no masses AUSCULTATION: Yes normoactive bowel sounds PALPATION: Yes Soft to palpation and Yes No hepatosplenomegaly present RECTAL EXAM: deferred Extremity: NARRATIVE EXTREMITY EXAM: 2+ bilateral lower extremity pitting edema Neuro: COMMON NORMALS: patient oriented x3 Data : 08/09/21 10:30 08/09/21 10:30 Micro: Microbiology 08/09/21 10:30 Blood Culture - Preliminary Blood SPECIMEN COLLECTED 08/09/21 10:25 Blood Culture - Preliminary Blood SPECIMEN COLLECTED A&P Assessment and plan (1) Respiratory failure with hypoxia and hypercapnia: Acute on chronic hypercapnic hypoxic respiratory failure 2/2 decompensated heart failure with preserved ejection fraction and COPD. Patient was currently not taking her Bumex at home, came in with worsening shortness of breath. Continue Bumex 2 mg p.o. daily Continue BiPAP Intake output charting k>4, mg>2 Azithromycin 500 mg IV daily Received Solu-Medrol 125 mg IV x1 dose. Duo nebs Status: Acute (2) Congestive heart failure: Status: Acute (3) Acute metabolic encephalopathy: Status: Acute (4) Atrial fibrillation: Status: Acute (5) Anemia: Status: Acute (6) Chronic anticoagulation: Status: Acute (7) COPD (chronic obstructive pulmonary disease): Status: Acute Additional A&P Information CODE STATUS:AND dvt ppx: On warfarin Attestations Medical Necessity Statement*: Patient needs to be in hospital for management of heart failure. Anticipated length of stay greater than two midnights. Coding Level of Care Code Acute Edge Grinder Machine for Norma Yeh Diagnoses Respiratory failure with hypoxia and hypercapnia J96.91; J96.92 Congestive heart failure I50.9 Acute metabolic encephalopathy G93.41 Atrial fibrillation I48.91 Anemia D64.9 Chronic anticoagulation Z79.01 COPD (chronic obstructive pulmonary disease) J44.9
[2021-08-09 17:30] LABS: Troponin 5 6HR 12.43 ng/L (0-10)
[2021-08-09 17:33] LABS: Troponin 5 6HR Delta -0.57 ng/L (0-12)
[2021-08-09] MEDS: azithromycin 500 MG in sodium chloride 0.9% 250 ML 250 MG IV (17:36)
--- NOTE | 2021-08-09 19:02 | PC.NURSE ---
Report to Hillary WHITFIELD at this time.
[2021-08-09] MEDS: potassium chloride ER 10 mEq Tablet 20 MEQ PO (20:41)
[2021-08-09] MEDS: ferrous gluconate 324 mg Tablet PO (20:42)
[2021-08-09] MEDS: isosorbide mononitrate ER 30 mg Tablet 15 MG PO (20:42)
[2021-08-09] MEDS: pantoprazole DR 40 mg Tablet PO (20:42)
[2021-08-09] MEDS: tolterodine 2 mg Tablet PO (20:42)
[2021-08-09] MEDS: bumetanide 0.25 mg/mL SDV 4 mL 1 MG IVP (21:37)
[2021-08-10] VITALS (14 sets, daily range): BP systolic 114–150; BP diastolic 51–74; PULSE 67–90; RESP 16–25; TEMP 36.3–36.9; O2SAT 2–100
[2021-08-10] MEDS: ipratropium-albuterol 3 mL Neb INHALATION ×4 (03:13→20:36)
--- NOTE | 2021-08-10 04:27 | PC.NURSE ---
patient alert and oriented to self and date of , wore bipap all night, requested for bipap to be removed x 3 this shift to drink some water and bipap back on, cooperative with hygiene and linen changes along with positioning. speech clear,
[2021-08-10] MEDS: levothyroxine 50 mcg Tablet PO (05:39)
[2021-08-10 06:26] LABS: Basophils % 0.3 %; Hematocrit 29.8 % (37.0-47.0); Hemoglobin 9.2 g/dL (11.5-15.3); Lymphocytes # 0.8 10^3/uL (0.8-4.8); Lymphocytes % 20.2 %; Mean Corpuscular HGB Conc 30.9 g/dL (30.0-36.0); Mean Corpuscular Hemoglobin 29.8 pg (28.0-34.0); Mean Corpuscular Volume 96.4 fl (81-99); Mean Platelet Volume 10.1 fL (7.4-10.4); Monocytes # 0.5 10^3/uL (0.2-0.9); Monocytes % 11.6 %; Neutrophils # 2.62 10^3/uL (1.8-7.7); Neutrophils % 67.6 %; Nucleated Red Blood Cells % 0 %; Platelet Count 119 10^3/cmm (130-400); Red Blood Count 3.09 10^6/uL (4.1-5.3); Red Cell Distribution Width 16.2 % (12.1-15.1); White Blood Count 3.9 10^3/uL (4.0-10.0)
[2021-08-10 06:38] LABS: INR 3.24 (0.8-1.2)
[2021-08-10 07:17] LABS: Anion Gap 6.7 (5-19); Blood Urea Nitrogen 11 mg/dL (8-23); Calcium 7.8 mg/dL (8.5-10.5); Carbon Dioxide 36 mmol/L (22-29); Chloride 104 mmol/L (98-107); Glucose 95 mg/dL (65-115); Magnesium 1.9 mg/dL (1.7-2.3); Osmolality Calculated 295 mOsm/kg (285-295); Potassium 3.7 mmol/L (3.5-5.1); Sodium 143 mmol/L (136-145)
[2021-08-10 07:22] LABS: Procalcitonin 0.04 ng/mL (0-0.5)
[2021-08-10] MEDS: isosorbide mononitrate ER 30 mg Tablet 15 MG PO ×2 (08:11→21:38)
[2021-08-10] MEDS: lisinopril 2.5 mg Tablet PO (08:12)
[2021-08-10] MEDS: atorvastatin 40 mg Tablet PO (08:12)
[2021-08-10] MEDS: fluoxetine 10 mg Capsule PO (08:12)
[2021-08-10] MEDS: bumetanide 1 mg Tablet 2 MG PO (08:12)
[2021-08-10] MEDS: potassium chloride ER 10 mEq Tablet 20 MEQ PO ×2 (08:12→21:37)
[2021-08-10] MEDS: pantoprazole DR 40 mg Tablet PO ×2 (08:13→21:40)
[2021-08-10] MEDS: ferrous gluconate 324 mg Tablet PO ×2 (08:13→21:37)
[2021-08-10] MEDS: tolterodine 2 mg Tablet PO ×2 (08:17→21:37)
--- NOTE | 2021-08-10 10:54 | PC.CHAP ---
Pastoral Care Encounter/Spiritual Assessment Type of Contact [] Declined sewer and drain technician visit [] Patient/Family/Request visit [] Outpatient visit [] Follow-up visit [] Physician referral [] Code/Alert [x] Routine visit [] Staff referral [] Actively dying [] Patient sleeping [] Family support [] [] Out of room [] Palliative care [] [] Receiving care in room [] Pre-surgical visit [] Trauma [] Long length of stay [] ICU visit [] Other: Relational/Emotional Strength [x] Patient feels connected with others/family/visitors/staff [] Distress [] Loneliness/isolation [] Abandonment Spirituality of Patient [x] Person of Vivian [] Attends Druze of their Vivian [x] Believes in Prayer [x] Reads Bible or Anabaptism materials [] There are Spiritual issues to be addressed [place] Maker Interventions [x] Prayer [x] Active listening [] Non-anxious presence [] Spiritual/emotional support [] Crisis/trauma care [] Spiritual counseling [] Bereavement support [] Provided bereavement packet [] Provided Bible/devotional materials [] Provided toy/stuffed animal, coloring book to patient or family member [] Provided Communion [] Anointing/[place] [] Salvation [] Completed spiritual assessment [] Other: Impact on Illness or Injury [] Angry [] Fearful [] Anxious [] Often cries [] Exhaustion [] Unable to work [x] Unable to attend yazdanism [x] Unable to walk/stand [] Unable to read [] Unable to drive [] Unable to eat/drink [] Unable to sleep [] Unable to be with family [] Patient intubated [] Other: Summary She seemed much improved, from what her [place] said, as well as what she said. Had no memory of the day before, at a loss of where she was when she woke up today. She and her family have been life-long friends. Good people, just getting old and feeble. Time spent with patient 20 minutes or more.
[2021-08-10] MEDS: warfarin 3 mg Tablet PO (14:54)
[2021-08-10] MEDS: azithromycin 500 MG in sodium chloride 0.9% 250 ML 250 MG IV (16:49)
--- NOTE | 2021-08-10 16:58 | PM.PN ---
Subjective Subjective: Interval history: Patient was seen and examined this morning, currently she is alert oriented x3, saturating well on 2 L oxygen, shortness of breath and bilateral lower extremity swelling is improving, good urine output on Po Bumex.Her other vitals and labs have been reviewed. Medications: Reviewed: Yes Vitals/I&O/Wt Last Vital Signs Temp 97.6 F 08/10/21 12:00 Pulse 83 08/10/21 16:05 Resp 17 08/10/21 15:53 BP 135/74 08/10/21 12:00 Pulse Ox 99 08/10/21 15:53 08/10/21 08/10/21 08/10/21 06:59 14:59 22:59 Intake Total 360 / 710 Balance 360 / 710 Weight last 48 hrs Weight 66.31 kg Weight 68.039 kg Weight 68.039 kg Physical Exam Const: COMMON NORMALS: patient oriented x3 HENMT: COMMON NORMALS: normocephalic and atraumatic HEAD & SCALP: normocephalic and atraumatic Resp: AUSCULTATION: wheezes OTHER: Bilateral wheezing in both the lungs mckeon Cardio: OTHER: S1/S2 variable intensity, mechanical mitral click present GI: COMMON NORMALS: Normal to inspection, nondistended, normoactive bowel sounds present, Soft to palpation, non-tender, No hepatosplenomegaly present and no masses AUSCULTATION: Yes normoactive bowel sounds PALPATION: Yes Soft to palpation and Yes No hepatosplenomegaly present RECTAL EXAM: deferred Extremity: NARRATIVE EXTREMITY EXAM: 1+ bilateral lower extremity pitting edema Neuro: COMMON NORMALS: patient oriented x3 Data : 08/10/21 06:05 08/10/21 06:05 Micro: Microbiology 08/09/21 10:25 Blood Culture - Preliminary Blood NEGATIVE TO DATE 08/09/21 10:30 Blood Culture - Preliminary Blood NEGATIVE TO DATE A&P Assessment and plan (1) Respiratory failure with hypoxia and hypercapnia: Acute on chronic hypercapnic hypoxic respiratory failure 2/2 decompensated heart failure with preserved ejection fraction and COPD. Patient was currently not taking her Bumex at home, came in with worsening shortness of breath. Continue Bumex 2 mg p.o. daily Continue BiPAP Intake output charting k>4, mg>2 Azithromycin 500 mg IV daily Solu-Medrol 40 mg i.v 1 dose Duo nebs Status: Acute (2) Congestive heart failure: Status: Acute (3) Acute metabolic encephalopathy: Status: Acute (4) Atrial fibrillation: Status: Acute (5) Anemia: Status: Acute (6) Chronic anticoagulation: Status: Acute (7) COPD (chronic obstructive pulmonary disease): Status: Acute Additional A&P Information CODE STATUS:AND dvt ppx: On warfarin Attestations Medical Necessity Statement*: Patient needs to the hospital for management of heart failure and COPD. Coding Level of Care Code Acute Javascript Application Developer for g Fwd Exam Expanded Problem Focused Diagnoses Respiratory failure with hypoxia and hypercapnia J96.91; J96.92 Congestive heart failure I50.9 Acute metabolic encephalopathy G93.41 Atrial fibrillation I48.91 Anemia D64.9 Chronic anticoagulation Z79.01 COPD (chronic obstructive pulmonary disease) J44.9
--- NOTE | 2021-08-10 18:52 | PC.NURSE ---
Report to Yvonne WHITFIELD at this time
[2021-08-11] VITALS (15 sets, daily range): BP systolic 111–155; BP diastolic 61–76; PULSE 68–95; RESP 15–28; TEMP 36.5–37; O2SAT 93–98; BMI 24.3
[2021-08-11 05:59] LABS: Basophils % 0.5 %; Hematocrit 33.5 % (37.0-47.0); Lymphocytes # 0.8 10^3/uL (0.8-4.8); Lymphocytes % 17.9 %; Mean Corpuscular HGB Conc 29.9 g/dL (30.0-36.0); Mean Corpuscular Hemoglobin 29.2 pg (28.0-34.0); Mean Platelet Volume 10.6 fL (7.4-10.4); Monocytes # 0.4 10^3/uL (0.2-0.9); Monocytes % 9.3 %; Neutrophils # 3.01 10^3/uL (1.8-7.7); Neutrophils % 72.1 %; Nucleated Red Blood Cells % 0 %; Platelet Count 123 10^3/cmm (130-400); Red Blood Count 3.42 10^6/uL (4.1-5.3); White Blood Count 4.2 10^3/uL (4.0-10.0)
[2021-08-11 06:09] LABS: INR 2.67 (0.8-1.2)
[2021-08-11] MEDS: levothyroxine 50 mcg Tablet PO (06:23)
[2021-08-11 06:24] LABS: Anion Gap 8.2 (5-19); Blood Urea Nitrogen 15 mg/dL (8-23); Calcium 8.2 mg/dL (8.5-10.5); Carbon Dioxide 37 mmol/L (22-29); Chloride 103 mmol/L (98-107); Glucose 96 mg/dL (65-115); Osmolality Calculated 299 mOsm/kg (285-295); Potassium 4.2 mmol/L (3.5-5.1); Sodium 144 mmol/L (136-145)
[2021-08-11] MEDS: ipratropium-albuterol 3 mL Neb INHALATION ×3 (07:46→21:13)
[2021-08-11] MEDS: cholecalciferol (vitamin D3) 1,000 unit Tablet 25 UNIT PO (10:37)
[2021-08-11] MEDS: bumetanide 1 mg Tablet 2 MG PO (10:38)
[2021-08-11] MEDS: lisinopril 2.5 mg Tablet PO (10:41)
[2021-08-11] MEDS: atorvastatin 40 mg Tablet PO (10:43)
[2021-08-11] MEDS: potassium chloride ER 10 mEq Tablet 20 MEQ PO ×2 (10:44→20:29)
[2021-08-11] MEDS: fluoxetine 10 mg Capsule PO (10:44)
[2021-08-11] MEDS: pantoprazole DR 40 mg Tablet PO ×2 (10:44→20:29)
[2021-08-11] MEDS: isosorbide mononitrate ER 30 mg Tablet 15 MG PO ×2 (10:45→20:28)
[2021-08-11] MEDS: ferrous gluconate 324 mg Tablet PO ×2 (10:45→20:28)
[2021-08-11] MEDS: tolterodine 2 mg Tablet PO ×2 (10:52→20:37)
[2021-08-11] MEDS: warfarin 3 mg Tablet PO (15:56)
[2021-08-11] MEDS: predniSONE 20 mg Tablet PO (15:56)
--- NOTE | 2021-08-11 19:57 | P.PN_ITS ---
Subjective Subjective: Interval history: Patient was seen and examined this morning, currently she is alert oriented x3, saturating well on 2 L oxygen, shortness of breath and bilateral lower extremity swelling is improving, good urine output on Po Bumex.Her other vitals and labs have been reviewed. Medications: Reviewed: Yes Vitals/I&O/Wt Last Vital Signs Temp 98 F 08/11/21 16:00 Pulse 88 08/11/21 16:00 Resp 16 08/11/21 16:00 BP 118/64 08/11/21 16:00 Pulse Ox 98 08/11/21 16:00 08/11/21 08/11/21 08/11/21 06:59 14:59 22:59 Intake Total 20 / 420 480 / 480 Balance 20 / 420 480 / 480 Weight last 48 hrs Weight 66.224 kg Weight 66.31 kg Physical Exam Narrative: EXAM NARRATIVE: Drowsy Const: COMMON NORMALS: patient oriented x3 HENMT: COMMON NORMALS: normocephalic and atraumatic HEAD & SCALP: normocephalic and atraumatic Resp: AUSCULTATION: wheezes OTHER: Bilateral wheezing in both the lungs mckeon Cardio: OTHER: S1/S2 variable intensity, mechanical mitral click present GI: COMMON NORMALS: Normal to inspection, nondistended, normoactive bowel sounds present, Soft to palpation, non-tender, No hepatosplenomegaly present and no masses AUSCULTATION: Yes normoactive bowel sounds PALPATION: Yes Soft to palpation and Yes No hepatosplenomegaly present RECTAL EXAM: deferred Extremity: NARRATIVE EXTREMITY EXAM: 1+ bilateral lower extremity pitting edema Neuro: COMMON NORMALS: patient oriented x3 Data : 08/11/21 05:26 08/11/21 05:26 A&P Assessment and plan (1) Respiratory failure with hypoxia and hypercapnia: Acute on chronic hypercapnic hypoxic respiratory failure 2/2 decompensated heart failure with preserved ejection fraction and COPD. Patient was currently not taking her Bumex at home, came in with worsening shortness of breath. Continue Bumex 2 mg p.o. daily Continue BiPAP Intake output charting k>4, mg>2 Azithromycin 500 mg IV daily Prednisone 20 mg p.o. daily for 5 days Duo nebs Status: Acute (2) Congestive heart failure: Status: Acute (3) Acute metabolic encephalopathy: Status: Acute (4) Atrial fibrillation: Status: Acute (5) Anemia: Status: Acute (6) Chronic anticoagulation: Status: Acute (7) COPD (chronic obstructive pulmonary disease): Status: Acute Additional A&P Information CODE STATUS:AND dvt ppx: On warfarin Attestations Medical Necessity Statement*: Needs to be in hospital for management of respiratory failure. Coding Level of Care Code Acute Carpet Cutter for [facility] Fwd Diagnoses Respiratory failure with hypoxia and hypercapnia J96.91; J96.92 Congestive heart failure I50.9 Acute metabolic encephalopathy G93.41 Atrial fibrillation I48.91 Anemia D64.9 Chronic anticoagulation Z79.01 COPD (chronic obstructive pulmonary disease) J44.9
[2021-08-11] MEDS: azithromycin 500 MG in sodium chloride 0.9% 250 ML 250 MG IV (21:41)
[2021-08-12] VITALS (7 sets, daily range): BP systolic 116–160; BP diastolic 60–68; PULSE 61–86; RESP 18–26; TEMP 36.4–36.6; O2SAT 93–98
[2021-08-12] MEDS: ipratropium-albuterol 3 mL Neb INHALATION ×2 (02:58→07:55)
[2021-08-12] MEDS: levothyroxine 50 mcg Tablet PO (05:10)
[2021-08-12 06:19] LABS: Basophils % 0.3 %; Hematocrit 30.6 % (37.0-47.0); Hemoglobin 9.3 g/dL (11.5-15.3); Lymphocytes # 0.6 10^3/uL (0.8-4.8); Lymphocytes % 14.5 %; Mean Corpuscular HGB Conc 30.4 g/dL (30.0-36.0); Mean Corpuscular Hemoglobin 29.5 pg (28.0-34.0); Mean Corpuscular Volume 97.1 fl (81-99); Monocytes # 0.3 10^3/uL (0.2-0.9); Monocytes % 7.3 %; Neutrophils # 3.11 10^3/uL (1.8-7.7); Neutrophils % 77.6 %; Nucleated Red Blood Cells % 0 %; Platelet Count 113 10^3/cmm (130-400); Red Blood Count 3.15 10^6/uL (4.1-5.3); Red Cell Distribution Width 17.2 % (12.1-15.1)
[2021-08-12 06:34] LABS: INR 2.55 (0.8-1.2)
[2021-08-12 06:43] LABS: Blood Urea Nitrogen 13 mg/dL (8-23); Calcium 8.1 mg/dL (8.5-10.5); Carbon Dioxide 35 mmol/L (22-29); Chloride 103 mmol/L (98-107); Glucose 108 mg/dL (65-115); Osmolality Calculated 297 mOsm/kg (285-295); Sodium 143 mmol/L (136-145)
--- NOTE | 2021-08-12 08:15 | P.DS_ITS ---
Discharge Providers Date of Admission: 08/09/21 14:14 Date of Discharge: August 12, 2021 Attending Provider at Admission: Serg Perales MD Attending Provider at Discharge: Serg Perales MD Primary Care Provider: Michael Hampton DO Diagnoses at Discharge Discharge Diagnosis (1) Respiratory failure with hypoxia and hypercapnia: Status: Acute (2) Congestive heart failure: Status: Acute (3) Acute metabolic encephalopathy: Status: Acute (4) Atrial fibrillation: Status: Acute (5) Anemia: Status: Acute (6) Chronic anticoagulation: Status: Acute (7) COPD (chronic obstructive pulmonary disease): Status: Acute Reason for Visit Reason for Visit: AMS,LETHARGIC,DEMENTIA Hospital Course Hospital Course 80 y o f with PMH severe RLD, chronic hypercapneic respiratory failure, on trilogy at home, pulmonary hypertension, HFpEF, A fib brought to the ER today for worsening shortness of breath, as well as worsening mental status started this morning. Upon arrival in the ER she was worked up for above-mentioned: Imaging studies: CT head without contrast: No acute intracranial pathology X-ray chest: No infiltrates , no effusion, Calcified granulomatous disease with no active pulmonary parenchymal or pleural disease. EKG: Atrial fibrillation, with rate of 59. proBNP:860, ABG: pH : 7.31 PCO2:72. PO2: 46, FiO2 28 % Troponin trend without any significant delta. She was admitted for the management of Acute on chronic hypercapnic hypoxic respiratory failure 2/2 decompensated heart failure with preserved ejection fraction and COPD. Patient was kept on p.o. and IV Bumex. As well as IV steroids, transition to p.o. steroid on discharge (prednisone 20 mg p.o. daily for additional 3 days), azithromycin ,duo nebs, BiPAP at night, and supplemental oxygen through nasal cannula during daytime.She responded well to the above medical management at the time of discharge she was euvolemic, Shortness of breath had resolved she was at her baseline home oxygen of 2 Ls. she was continued on Bumex 2 mg p.o. daily as her home medication. Acute metabolic encephalopathy related to hypercapnia had resolved at the time of discharge she was alert oriented x3. For A. fib heart rate was well controlled, chronic anticoagulation with warfarin was continued, she also has mechanical mitral valve, goal INR of 2.5-3.5 was maintained.Patient responded well to the above medical management And is being discharged in stable condition, she will continue to follow cardiology in 1 week, field property loss specialist and primary care physician as an outpatient. Physical Exam Const: COMMON NORMALS: patient oriented x3 HENMT: COMMON NORMALS: normocephalic and atraumatic HEAD & SCALP: normocephalic and atraumatic Resp: COMMON NORMALS: normal respiratory effort and clear to auscultation bilaterally EFFORT & INSPECTION: Yes able to speak in complete sentences AUSCULTATION: clear to auscultation bilaterally Cardio: OTHER: S1/S2 variable intensity, mechanical mitral click present GI: COMMON NORMALS: Normal to inspection, nondistended, normoactive bowel sounds present, Soft to palpation, non-tender, No hepatosplenomegaly present and no masses AUSCULTATION: Yes normoactive bowel sounds PALPATION: Yes Soft to palpation and Yes No hepatosplenomegaly present RECTAL EXAM: deferred Extremity: COMMON NORMALS: no pedal edema Neuro: COMMON NORMALS: patient oriented x3 Discharge Data Data Completed and Pending: Completed Studies During Hospitalization Category Date Time Status CT head wo con* 7 0450 Urgent Cat Scan 08/09/21 10:10 Completed XR chest 1V mary ble [id number] Urgent Exams 08/09/21 10:10 Completed Pending at discharge Category Date Time Status Blood Culture Sta t Lab 08/09/21 10:30 Results Labs from last 24 hours 08/12/21 08/12/21 08/12/21 05:59 05:59 05:59 WBC 4.0 RBC 3.15 L Hgb 9.3 L Hct 30.6 L MCV 97.1 MCH 29.5 MCHC 30.4 RDW 17.2 H Plt Count 113 L MPV 10.0 Neut % (Auto) 77.6 Lymph % (Auto) 14.5 [place] % (Auto) 7.3 Eos % (Auto) 0.0 Baso % (Auto) 0.3 Neut # (Auto) 3.11 Lymph # (Auto) 0.6 L [place] # (Auto) 0.3 Eos # (Auto) 0.0 Baso # (Auto) 0.0 Nucleated RBC % (a uto) 0 Nucleated RBCs # 0.0 PT 27.90 H INR 2.55 H Sodium 143 Potassium 4.0 Chloride 103 Carbon Dioxide 35 H Anion Gap 9.0 BUN 13 Creatinine 0.5 GFR Calculation Not Reportable Glucose 108 Calculated Osmolal ity 297 H Calcium 8.1 L Vitals: Last Vital Signs Temp 97.6 F 08/12/21 04:00 Pulse 67 08/12/21 07:57 Resp 20 H 08/12/21 07:57 BP 116/60 08/12/21 04:00 Pulse Ox 93 08/12/21 07:57 Discharge Plan Discharge Patient Disposition: Home Condition: Stable Prescriptions: New prednisone 20 mg tablet 20 mg PO DAILY 3 Days Qty: 3 RF: 0 Continued fluoxetine 10 mg capsule 10 mg PO DAILY@09 RF: 0 carbidopa-levodopa 10-100 mg tablet,disintegrating 1 tab PO TID@,, RF: 0 tolterodine 2 mg tablet 2 mg PO BID@ RF: 0 lisinopril 2.5 mg tablet 2.5 mg PO DAILY Qty: 30 RF: 6 tramadol 50 mg Tablet 50 mg PO Q6H PRN (Reason: Pain) RF: 0 cholecalciferol (vitamin D3) [Vitamin D3] 25 mcg (1,000 unit) Capsule 25 mcg PO DAILY@0900 Qty: 0 RF: 0 nitroglycerin 0.4 mg Tablet, Sublingual 0.4 mg SUBLINGUAL Q5M PRN (Reason: Chest Pain) RF: 0 rosuvastatin 10 mg tablet 10 mg PO DAILY@0900 RF: 0 fluticasone propion-salmeterol [Advair Diskus] 250-50 mcg/dose blister with device 1 inh inhalation BID@899,2099 RF: 0 polyethylene glycol 3350 [Miralax] 17 gram powder in packet 17 g PO DAILY@0900 PRN (Reason: Constipation) RF: 0 isosorbide mononitrate 30 mg Tablet Extended Release 24 Hr 15 mg PO BID@0900,2100 RF: 0 albuterol sulfate 90 mcg/actuation Hfa Aerosol Inhaler 1 inh INHALATION Q6H PRN (Reason: Shortness Of Breath) RF: 0 nystatin [Nystop] 100,000 unit/gram Powder 1 applic topical BID PRN (Reason: rash) Qty: 60 RF: 0 Tylenol 325 mg Tablet 325 - 650 mg PO Q4H PRN (Reason: Pain) RF: 0 levothyroxine 50 mcg tablet 50 mcg PO QAM RF: 0 carvedilol 6.25 mg tablet 6.25 mg PO BID RF: 0 Jantoven 3 mg tablet 3 mg PO DAILY@1400 RF: 0 bumetanide 1 mg tablet 2 mg PO DAILY RF: 0 potassium chloride [Klor-Con 10] 10 mEq tablet extended release 20 meq PO BID@ RF: 0 ferrous gluconate 324 mg (37.5 mg iron) tablet 324 mg PO BID@ RF: 0 sennosides-docusate sodium 8.6-50 mg tablet 2 tab PO BID PRN (Reason: Constipation) RF: 0 pantoprazole 40 mg tablet,delayed release (DR/EC) 40 mg PO BID@0900,2100 RF: 0 ipratropium-albuterol 0.5 mg-3 mg(2.5 mg base)/3 mL Solution For Nebulization 3 ml inhalation Q6H.RESPIRATORY Qty: 270 RF: 0 Held bumetanide 1 mg tablet 1 mg PO DAILY RF: 0 Hold Instructions: Resume on 08/19/21. Discharge Orders: Discharge Order (Routine); Ordered 08/12/21 Ordered By: Serg Perales Referrals: [facility] [Outside] Surinder Mays MD [Physician] - 10/28/21 2:00 pm Steffany Garvin FNP [Nurse Practitioner] - 08/19/21 3:00 pm Michael Hampton DO [Primary Care Provider] - 08/17/21 10:20 am Brijesh Daigle MD [Physician] - 1 week ([facility] WILL CALL WITH APPOINTMENT WITH DR DAIGLE) Discharge Diet: Cardiac Discharge Activity: Increase activity as tolerated Patient Instructions: Prednisone (By mouth), Heart Failure (GEN), COPD (Chronic Obstructive Pulmonary Disease) (DC), CHF Stoplight, COPD Stoplight, Opioid Safety Activity Restrictions/Additional Instructions: Stop taking Bumex. Resume on 08/19/21 Discharge Attestations Time Spent in Discharge Care*: less than 30 min Specific Discharge Activities: educating patient, educating and/or supporting family/caregiver, discussing with pcp/other providers, discussing with cyanide case hardener/social workers/dc planners, documenting/other paperwork and evaluating patient/reviewing data Status at Discharge: Cognitive status at discharge: cognitively intact , Behavioral status at discharge: cooperative , Quality Metrics Clinical Quality Measures During this hospital stay, did patient experience: None Coding Level of Care Code Acute Chg FW DC note Diagnoses Respiratory failure with hypoxia and hypercapnia J96.91; J96.92 Congestive heart failure I50.9 Acute metabolic encephalopathy G93.41 Atrial fibrillation I48.91 Anemia D64.9 Chronic anticoagulation Z79.01 COPD (chronic obstructive pulmonary disease) J44.9
[2021-08-12] MEDS: bumetanide 1 mg Tablet 2 MG PO (08:18)
[2021-08-12] MEDS: lisinopril 2.5 mg Tablet PO (08:19)
[2021-08-12] MEDS: ferrous gluconate 324 mg Tablet PO (08:19)
[2021-08-12] MEDS: pantoprazole DR 40 mg Tablet PO (08:20)
[2021-08-12] MEDS: potassium chloride ER 10 mEq Tablet 20 MEQ PO (08:21)
[2021-08-12] MEDS: fluoxetine 10 mg Capsule PO (08:21)
[2021-08-12] MEDS: atorvastatin 40 mg Tablet PO (08:21)
[2021-08-12] MEDS: predniSONE 20 mg Tablet PO (08:22)
[2021-08-12] MEDS: isosorbide mononitrate ER 30 mg Tablet 15 MG PO (08:23)
--- NOTE | 2021-08-12 11:53 | PC.SOCIAL ---
IMM updated with patient. Copy Pg 2 provided. Initialled, dated, timed, and placed in chart.
--- NOTE | 2021-08-13 13:58 | PC.SOCIAL ---
discharge follow up call, spoke with patient. she reports she is feeling good. patient is taking prednisone as directed. patient denies any shortness of breath. patient reports that home health hasn't visited as of yet. spoke with patients daughter regarding follow up appointment dates and times. daughter will be taking patient to these follow up appointments. the daughter denies any concerns with discharge instructions, follow up appointment of new medication.
== END 2021-08-12 12:35 | disposition home health service (06) | DRG 291 ==
LOC: ER 14:13 → MEDSURG 15:34
PROVIDERS: Physician Assistant; Admitting Provider Internal Medicine; Emergency Provider Emergency Medicine; PCP Family Medicine; Visit Provider Internal Medicine
DX: I11.0 Hypertensive heart disease with heart failure (principal); I50.33 Acute on chronic diastolic (congestive) heart failure; J96.22 Acute and chronic respiratory failure with hypercapnia; J96.21 Acute and chronic respiratory failure with hypoxia; G93.41 Metabolic encephalopathy; Z87.01 Personal history of pneumonia (recurrent); Z99.81 Dependence on supplemental oxygen; J44.9 Chronic obstructive pulmonary disease, unspecified; I48.91 Unspecified atrial fibrillation; D50.9 Iron deficiency anemia, unspecified; I25.10 Atherosclerotic heart disease of native coronary artery without angina pectoris; Z95.2 Presence of prosthetic heart valve; F32.9 Major depressive disorder, single episode, unspecified; E03.9 Hypothyroidism, unspecified; G47.33 Obstructive sleep apnea (adult) (pediatric); G20 Parkinson's disease; K22.2 Esophageal obstruction; Z96.652 Presence of left artificial knee joint; Z87.891 Personal history of nicotine dependence; I27.20 Pulmonary hypertension, unspecified; Z79.51 Long term (current) use of inhaled steroids; Z79.891 Long term (current) use of opiate analgesic; T50.1X6A Underdosing of loop [high-ceiling] diuretics, initial encounter
CPT/HCPCS: 36415; 36600; 51701; 70450; 71045; 80048; 80051; 80053; 81001; 82330; 82803; 82805; 83605; 83735; 83880; 84145; 84443; 84484; 85025; 85610; 87040; 93005; 94640; 94660; 96365; 96367; 99291; J0456; J2920; J2930; J3490; J7050; J7512

== ENCOUNTER 2021-09-07 13:17 | Outpatient (CLI) | payer MEDICARE, MEDICAID, SELFPAY ==
--- NOTE | 2021-09-07 13:30 | USCV_ITS ---
Iris Garcia Age: 81 Gender: F : 1940 Exam Date: 09/07/2021 13:30 Ordering Phys: Steffany Garvin Technologist: ALEX Exam Location: [facility] [place]_ Indication: RIGHT LEG PAIN HISTORY: Lower extremity pain. PROCEDURES: Venous duplex imaging was performed in only the right lower extremity. The following venous structures were evaluated: common femoral vein, profunda vein, proximal portion of the greater saphenous vein, superficial femoral vein, and the popliteal vein. In addition, the posterior tibial and peroneal trunk were evaluated. FINDINGS: Normal 2-D Doppler and augmentation and compressibility throughout the lower extremity venous structures. Additional imaging through the proximal calf veins also reveals no thrombus. Limited evaluation of the greater saphenous vein is patent with no thrombus. There appears to be a Lemus's cyst on posterior medial right knee, 4.5 x 2.5 cm. CONCLUSIONS No DVT right lower extremity. Right popliteal fossa Lemus's cyst. Dr. Hillary Crawley DO (Electronically Signed) Final Date: 07 September 2021 14:23 S
== END 2021-09-07 13:18 | disposition home or self-care (01) ==
LOC: RAD 13:19
PROVIDERS: PCP Family Medicine; Visit Provider Nurse Practitioner Family
DX: M79.604 Pain in right leg (principal); Z79.01 Long term (current) use of anticoagulants; M71.21 Synovial cyst of popliteal space [Baker], right knee
CPT/HCPCS: 93971

== ENCOUNTER 2021-11-08 13:43 | Emergency (ER) | payer MEDICARE, MEDICAID, SELFPAY ==
[2021-11-08 13:44] VITALS: BP 116/60; PULSE 99; RESP 24; TEMP 36.4; O2SAT 99; BMI 24.7
--- NOTE | 2021-11-08 14:17 | XRR_ITS ---
PROCEDURE INFORMATION: Exam: XR Chest Exam date and time: 11/08/2021 2:17 PM Age: 81 years old Clinical indication: Shortness of breath and wheezing; Prior surgery; Surgery type: Valve replacement; Additional info: Shortness of breath with wheezing TECHNIQUE: Imaging protocol: XR of the chest. Views: 1 view. COMPARISON: CR XR chest 1V portable [id number] 08/09/2021 10:16 AM FINDINGS: Lungs: Right upper lobe calcified granuloma. Emphysematous changes. Mild pulmonary vascular congestion. Pleural spaces: Unremarkable. No pleural effusion. No pneumothorax. Heart/Mediastinum: Cardiomegaly. Bones/joints: Sternotomy wires. XR/XR chest 1V portable [id number] IMPRESSION: 1. Negative for infiltrate 2. Cardiomegaly. 3. Right upper lobe calcified granuloma. 4. Emphysematous changes. 5. Mild pulmonary vascular congestion.
[2021-11-08] MEDS: sodium chloride 0.9% 1,000 ML 75 ML IV (14:35)
[2021-11-08] MEDS: dexamethasone 10 mg/mL INJ IVP (14:35)
--- NOTE | 2021-11-08 14:48 | W.ED.SOB ---
HPI - SOB/Dyspnea General: Chief Complaint: Shortness of Breath/Dyspnea Stated Complaint: DIFF BREATHING Time Seen by Provider: 11/08/21 13:50 History of Present Illness: HPI Narrative: 81-year-old female presents to the emergency room department with a chief complaint of progressive shortness of breath and difficulty breathing as witnessed per family. The patient reports that she requires a trilogy machine at home Patient also has a known history of rheumatic fever resulting in several valves replaced as well as open heart surgery. Patient family does report the patient has a known history of elevated carbon dioxide level that they think may be contributing to her generalized weakness fatigue and mild confusion this morning. MD elicited complaint: shortness of breath and cough Onset (ago): day(s) (1) Context: recent illness Associated symptoms: Reports chest congestion; Deny abdominal pain, chest pain, extremity pain, fever(s), nausea, palpitations or vomiting Related Data: Home oxygen amount: 2 liters Review of Systems General: Reports: 10 or more systems reviewed and unremarkable except in HPI and below Const: Denies: fever(s), chills, fatigue or malaise Eyes: Denies: change in vision or blurry vision Card: Denies: chest pain or palpitations Resp: Reports: dyspnea, productive cough, wheezing and chest congestion GI: Denies: abdominal pain, nausea or vomiting : Denies: flank pain Musc: Denies: extremity pain or extremity swelling Skin/Breast: Denies: rash or pruritus Neuro: Denies: headache(s) Psych: Denies: anxiety or depression Jesus Alberto/Lymph: Denies: easy bleeding All/Imm: Denies: urticaria, throat swelling or facial swelling PFS ED PFSH: Medical History Acute and chronic respiratory failure with hypercapnia Acute and chronic respiratory failure with hypercapnia Acute encephalopathy Acute exacerbation of chronic obstructive airways disease Acute exacerbation of COPD with asthma Acute metabolic encephalopathy Afib Anemia -baseline Hg around 9-10 -follow with Dr Bullock Anemia Anemia Atrial fibrillation CAD (coronary artery disease) CHF (congestive heart failure) Chronic anticoagulation Due to mechanical mitral valve; coumadin Chronic anticoagulation Chronic hypercapnic respiratory failure Congestive heart failure COPD (chronic obstructive pulmonary disease) COPD (chronic obstructive pulmonary disease) Depression Diastolic CHF GERD (gastroesophageal reflux disease) PPI HTN (hypertension) Hypernatremia Hypothyroidism -continue levothyroxine Iron deficiency anemia Has required transfusion in past, last egd and colonoscopy ~2017 with diverticulosis and internal hemorrhoids, SONYA (obstructive sleep apnea) Parkinson disease Follows up with Dr. Rainey in [place] Pulmonary hypertension Respiratory failure with hypoxia and hypercapnia Schatzki's ring Subtherapeutic international normalized ratio (INR) Weakness Surgical History History of bilateral tubal ligation History of cholecystectomy History of total knee arthroplasty Left Mitral valve replaced Mechanical, on coumadin Family History Mother CAD (coronary artery disease) Diabetes Other Hypertension Social History Quit status (tobacco): has quit using tobacco Year quit tobacco: 1994 - PPD x 15 Years Second hand smoke exposure: No Smoking risk assessment/counseling performed?: No Alcohol intake: never Counseling given: No Counseling given: No Caregiver/support person: Yes Household members: spouse and children Housing: House Marital status: Current occupational status: retired and disabled History of recent travel: No Current gender identity: Female Physical Exam Narrative: EXAM NARRATIVE: Patient appears to be in moderate respiratory distress with expiratory wheezing appreciated on exam Const: COMMON NORMALS: patient oriented x3 and healthy appearing GENERAL APPEARANCE: in distress (Patient appears in moderate respiratory distress with expiratory wheezing a) and ill appearing HENMT: COMMON NORMALS: normocephalic and atraumatic HEAD & SCALP: normocephalic and atraumatic Eye: COMMON NORMALS: Equal, round and reactive pupils present and EOMs intact bilaterally PUPIL: Yes Equal, round and reactive pupils present Neck/C-Spine: COMMON NORMALS: full ROM, supple and no JVD Lymph: LYMPHATIC: no lymphadenopathy noted Chest: COMMONS NORMALS: normal inspection of the chest and normal palpation of entire chest wall Resp: COMMON NORMALS: clear to auscultation bilaterally EFFORT & INSPECTION: Yes able to speak in complete sentences and Yes symmetric chest movement AUSCULTATION: clear to auscultation bilaterally, abnormal I/E ratio, wheezes and diminished lung sounds Cardio: COMMON NORMALS: no JVD and regular rhythm RATE: tachycardic RHYTHM: regular rhythm GI: COMMON NORMALS: Normal to inspection, nondistended, normoactive bowel sounds present, Soft to palpation and non-tender INSPECTION: Yes normal to inspection PALPATION: Yes Soft to palpation : COMMON NORMALS: Yes no CVA tenderness BLADDER/KIDNEY EXAM: Yes no CVA tenderness Back/Pelvis: COMMON NORMALS: no CVA tenderness Extremity: COMMON NORMALS: normal to inspection and full ROM Neuro: COMMON NORMALS: patient oriented x3, CN's II-XII intact bilaterally, moves all extremities and no focal motor deficits Psych: COMMON NORMALS: mental status grossly normal, Normal thought process present, cooperative and normal affect THOUGHT PROCESS: Normal thought process present Skin: COMMON NORMALS: no rashes or lesions noted GENERAL SKIN EXAM: no rashes or lesions noted Course ED course: Due to the patient's significant initial lab work and imaging will be obtained we will continue to follow medication will be provided for the patient's respiratory difficulties COVID-19 testing will be obtained. The patient will be provided Decadron as well as neb treatments. Patient is oxygenation remained at 94-96 percent on her normal requirement of 2 L via nasal cannula. At this time the patient will be discharged home as her cardiac troponins are come back unremarkable which is not reporting any chest pain. Patient appears have a COPD exacerbation COVID-negative she was advised further follow-up with primary care doctor in 2 to 3 days which patient was advised to return in the interim if any of her symptoms persist or worse. Vital Signs: Vital signs: Vital Signs Temperature 97.6 F 11/08/21 13:44 Pulse Rate 71 11/08/21 17:01 Respiratory Rate 18 11/08/21 17:01 Blood Pressure 115/37 11/08/21 17:01 Pulse Oximetry 96 11/08/21 17:01 MDM - SOB/Dyspnea Lab Data: Labs: Lab Results 11/08/21 11/08/21 11/08/21 14:40 14:40 14:40 WBC 3.3 10^3/uL L 10^ 3/uL (4.0-10.0) RBC 3.75 10^6/uL L 10 ^6/uL (4.1-5.3) Hgb 10.9 g/dL L g/dL (11.5-15.3) Hct 36.4 % L % (37.0-47.0) MCV 97.1 fl fl (81-99) MCH 29.1 pg pg (28.0-34.0) MCHC 29.9 g/dL L g/dL (30.0-36.0) RDW 13.8 % % (12.1-15.1) Plt Count 98 10^3/cmm L 10^ 3/cmm (130-400) MPV 10.3 fL fL (7.4-10.4) Neut % (Auto) 53.7 % % Lymph % (Auto) 33.8 % % Glasscock % (Auto) 9.8 % % Eos % (Auto) 1.8 % % Baso % (Auto) 0.9 % % Neut # (Auto) 1.74 10^3/uL L 10 ^3/uL (1.8-7.7) Lymph # (Auto) 1.1 10^3/uL 10^3/ uL (0.8-4.8) [place]cock # (Auto) 0.3 10^3/uL 10^3/ uL (0.2-0.9) Eos # (Auto) 0.1 10^3/uL 10^3/ uL (0.0-0.8) Baso # (Auto) 0.0 10^3/uL 10^3/ uL (0.0-0.1) Nucleated RBC % (a uto) 0 % % Nucleated RBCs # 0.0 /100WBC /100W BC Specimen Type Sample Site ABG pH ABG pCO2 ABG pO2 ABG HCO3 ABG Base Excess César Test Hematocrit Hgb O2 Saturation Carboxyhemoglobin Methemoglobin Total Hemoglobin O2 Delivery Device O2 Liters/Min FiO2 History Teacher ID Sodium 146 mmol/L H mmol /L (136-145) Potassium 3.9 mmol/L mmol/L (3.5-5.1) Chloride 101 mmol/L mmol/L (98-107) Carbon Dioxide 36 mmol/L H mmol/ L (22-29) Anion Gap 12.9 (5-19) BUN 18 mg/dL mg/dL (8-23) Creatinine 0.7 mg/dL mg/dL (0.5-0.9) GFR Calculation Not Reportable Glucose 83 mg/dL mg/dL (65-115) Calculated Osmolal ity 303 mOsm/kg H mOs m/kg (285-295) Lactic Acid 0.8 mmol/L mmol/L (0.5-2.2) Calcium 7.6 mg/dL L mg/dL (8.5-10.5) Total Bilirubin 0.6 mg/dL mg/dL (0.15-1.2) AST 12 U/L U/L (0-32) ALT < 5 U/L U/L (0-33) Alkaline Phosphata se 100 IU/L IU/L (35-105) Lactate Dehydrogen ase 291 U/L H U/L (135-214) Troponin T Baselin e C-Reactive Protein 0.5 mg/L mg/L (0.0-4.9) NT-Pro-B Natriuret Pep 443 pg/mL pg/mL (0-450) Total Protein 5.4 g/dL L g/dL (6.6-8.7) Albumin 3.7 g/dL g/dL (3.5-5.2) Globulin 1.7 g/dL g/dL (1.3-4.6) Lipase 34 U/L U/L (13-60) Nasal Influ A H1 2 009 PCR Coronavirus 229E ( PCR) Influenza A (H1) P CR Influenza A (H3) P CR Influenza Type A A g Influenza Type A ( PCR) Influenza Type B A g Influenza Type B ( PCR) SARS-CoV-2 (PCR) 11/08/21 11/08/21 11/08/21 14:40 14:40 14:40 WBC RBC Hgb Hct MCV MCH MCHC RDW Plt Count MPV Neut % (Auto) Lymph % (Auto) Glasscock % (Auto) Eos % (Auto) Baso % (Auto) Neut # (Auto) Lymph # (Auto) Glasscock # (Auto) Eos # (Auto) Baso # (Auto) Nucleated RBC % (a uto) Nucleated RBCs # Specimen Type Sample Site ABG pH ABG pCO2 ABG pO2 ABG HCO3 ABG Base Excess César Test Hematocrit Hgb O2 Saturation Carboxyhemoglobin Methemoglobin Total Hemoglobin O2 Delivery Device O2 Liters/Min FiO2 History Teacher ID Sodium Potassium Chloride Carbon Dioxide Anion Gap BUN Creatinine GFR Calculation Glucose Calculated Osmolal ity Lactic Acid Calcium Total Bilirubin AST ALT Alkaline Phosphata se Lactate Dehydrogen ase Troponin T Baselin e 16 ng/L H ng/L (0-10) C-Reactive Protein NT-Pro-B Natriuret Pep Total Protein Albumin Globulin Lipase Nasal Influ A H1 2 009 PCR Not detected (NOT DETECT) Coronavirus 229E ( PCR) Not detected (NOT DETECT) Influenza A (H1) P CR Not detected (NOT DETECT) Influenza A (H3) P CR Not detected (NOT DETECT) Influenza Type A A g Cancelled Influenza Type A ( PCR) Not detected (NOT DETECT) Influenza Type B A g Cancelled Influenza Type B ( PCR) Not detected (NOT DETECT) SARS-CoV-2 (PCR) Not detected (NOT DETECT) 11/08/21 11/08/21 14:40 15:10 WBC RBC Hgb Hct MCV MCH MCHC RDW Plt Count MPV Neut % (Auto) Lymph % (Auto) Glasscock % (Auto) Eos % (Auto) Baso % (Auto) Neut # (Auto) Lymph # (Auto) Glasscock # (Auto) Eos # (Auto) Baso # (Auto) Nucleated RBC % (a uto) Nucleated RBCs # Specimen Type Arterial Sample Site Radial, left ABG pH 7.36 (7.35-7.45) ABG pCO2 71.4 mmHg H* mmHg (35-45) ABG pO2 86.7 mmHg mmHg (80.0-100.0) ABG HCO3 40.3 mmol/L H mmo l/L (22-26) ABG Base Excess 12.1 mmol/L H mmo l/L (-2.0-2.0) César Test Pos Hematocrit 35.7 % L % (37-47) Hgb O2 Saturation 96.1 % % (95-100) Carboxyhemoglobin 1.0 %THgb %THgb (0.4-20.1) Methemoglobin < 0.0 % L % (0.4-1.5) Total Hemoglobin 11.6 g/dL L g/dL (12-16) O2 Delivery Device Nc O2 Liters/Min 2.0 % % FiO2 28.0 % % History Teacher ID Ed Sodium Potassium Chloride Carbon Dioxide Anion Gap BUN Creatinine GFR Calculation Glucose Calculated Osmolal ity Lactic Acid Calcium Total Bilirubin AST ALT Alkaline Phosphata se Lactate Dehydrogen ase Troponin T Baselin e C-Reactive Protein NT-Pro-B Natriuret Pep Total Protein Albumin Globulin Lipase Nasal Influ A H1 2 009 PCR Not detected (NOT DETECT) Coronavirus 229E ( PCR) Influenza A (H1) P CR Not detected (NOT DETECT) Influenza A (H3) P CR Not detected (NOT DETECT) Influenza Type A A g Influenza Type A ( PCR) Not detected (NOT DETECT) Influenza Type B A g Influenza Type B ( PCR) Not detected (NOT DETECT) SARS-CoV-2 (PCR) Discharge Plan Discharge Patient Disposition: Home Clinical Impression: Acute exacerbation of chronic obstructive pulmonary disease, Hypercapnia Condition: Stable Prescriptions: New prednisone 20 mg tablet 20 mg PO BID 7 Days Qty: 14 RF: 0 Ventolin HFA 90 mcg/actuation HFA aerosol inhaler 1 inh inhalation Q6H PRN (Reason: shortness of breath or wheezing) Qty: 8.5 RF: 0 Tessalon Perles 100 mg capsule 100 mg PO TID PRN (Reason: cough) Qty: 20 RF: 0 No Action fluoxetine 10 mg capsule 10 mg PO DAILY@09 RF: 0 tolterodine 2 mg tablet 2 mg PO BID@,21 RF: 0 lisinopril 2.5 mg tablet 2.5 mg PO DAILY Qty: 30 RF: 6 nitroglycerin 0.4 mg Tablet, Sublingual 0.4 mg SUBLINGUAL Q5M PRN (Reason: Chest Pain) RF: 0 rosuvastatin 10 mg tablet 10 mg PO DAILY@0900 RF: 0 fluticasone propion-salmeterol [Advair Diskus] 250-50 mcg/dose blister with device 1 inh inhalation BID@00,2100 RF: 0 polyethylene glycol 3350 [Miralax] 17 gram powder in packet 17 g PO DAILY PRN (Reason: Constipation) RF: 0 isosorbide mononitrate 30 mg Tablet Extended Release 24 Hr 15 mg PO BID@0900,2100 RF: 0 albuterol sulfate 90 mcg/actuation Hfa Aerosol Inhaler 1 inh INHALATION Q6H PRN (Reason: Shortness Of Breath) RF: 0 nystatin [Nystop] 100,000 unit/gram Powder 1 applic topical BID PRN (Reason: rash) Qty: 60 RF: 0 acetaminophen [Tylenol] 325 mg Tablet 325 - 650 mg PO Q4H PRN (Reason: Pain) RF: 0 levothyroxine 50 mcg tablet 50 mcg PO QAM RF: 0 carvedilol 6.25 mg tablet 6.25 mg PO BID RF: 0 warfarin 3 mg Tablet See Rx Instructions .ROUTE .COMPLEX RF: 0 carbidopa-levodopa 10-100 mg tablet 1 tab PO TID RF: 0 Vitamin D3 125 mcg (5,000 unit) Tablet 125 mcg PO DAILY RF: 0 bumetanide 2 mg tablet 2 mg PO DAILY RF: 0 potassium chloride [Klor-Con 10] 10 mEq tablet extended release 20 meq PO BID@ RF: 0 ferrous gluconate 324 mg (37.5 mg iron) tablet 324 mg PO BID@ RF: 0 sennosides-docusate sodium 8.6-50 mg tablet 1 tab PO BID RF: 0 pantoprazole 40 mg tablet,delayed release (DR/EC) 40 mg PO BID@899,2099 RF: 0 Discharge Orders: Discharge ED (Routine); Ordered 11/08/21 Ordered By: Victor Hugo Grossman Referrals: Michael Hampton, [Primary Care Provider] - Discharge Diet: Advance as tolerated Discharge Activity: Increase activity as tolerated Patient Instructions: COPD Activity Restrictions/Additional Instructions: Please follow-up with your primary care doctor in 2 to 3 days, take medications as prescribed and return in the interim if any of her symptoms persist or worsen. Coding Level of Care Code ED Ear Pull Machine Operator for Norma Fwd Exam Comprehensive
[2021-11-08 14:51] LABS: Basophils % 0.9 %; Eosinophils # 0.1 10^3/uL (0.0-0.8); Eosinophils % 1.8 %; Hematocrit 36.4 % (37.0-47.0); Hemoglobin 10.9 g/dL (11.5-15.3); Lymphocytes # 1.1 10^3/uL (0.8-4.8); Lymphocytes % 33.8 %; Mean Corpuscular HGB Conc 29.9 g/dL (30.0-36.0); Mean Corpuscular Hemoglobin 29.1 pg (28.0-34.0); Mean Corpuscular Volume 97.1 fl (81-99); Mean Platelet Volume 10.3 fL (7.4-10.4); Monocytes # 0.3 10^3/uL (0.2-0.9); Monocytes % 9.8 %; Neutrophils # 1.74 10^3/uL (1.8-7.7); Neutrophils % 53.7 %; Nucleated Red Blood Cells % 0 %; Platelet Count 98 10^3/cmm (130-400); Red Blood Count 3.75 10^6/uL (4.1-5.3); Red Cell Distribution Width 13.8 % (12.1-15.1); White Blood Count 3.3 10^3/uL (4.0-10.0)
[2021-11-08 15:08] VITALS: PULSE 63; RESP 16; O2SAT 99
[2021-11-08 15:14] LABS: Lactic Sepsis W/Reflex 0.8 mmol/L (0.5-2.2)
[2021-11-08 15:15] VITALS: PULSE 63
[2021-11-08 15:16] LABS: Troponin(5th) Baseline 16 ng/L (0-10)
[2021-11-08 15:20] LABS: ABG PH Result 7.36 (7.35-7.45); Arterial Blood Gas Hematocrit 35.7 % (37-47); Base Excess ABG 12.1 mmol/L (-2.0-2.0); Blood Gas Allen Test Pos; Blood Gas Operator Identificat ED; Blood Gas Sample Site Radial, left; Blood Gas Sample Type Arterial; HCO3 ABG 40.3 mmol/L (22-26); HGB O2 Sat 96.1 % (95-100); Methemoglobin < 0.0 % (0.4-1.5); Oxygen Device NC; PO2 ABG 86.7 mmHg (80.0-100.0); Total Hemoglobin 11.6 g/dL (12-16)
[2021-11-08 15:21] LABS: ABG PCO2 71.4 mmHg (35-45)
[2021-11-08 15:23] LABS: Alanine Aminotransferase < 5 U/L (0-33); Albumin Level 3.7 g/dL (3.5-5.2); Alkaline Phosphatase 100 IU/L (35-105); Anion Gap 12.9 (5-19); Aspartate Amino Transferase 12 U/L (0-32); Blood Urea Nitrogen 18 mg/dL (8-23); C Reactive Protein 0.5 mg/L (0.0-4.9); Calcium 7.6 mg/dL (8.5-10.5); Carbon Dioxide 36 mmol/L (22-29); Chloride 101 mmol/L (98-107); Creatinine Clr Calc Pharmacy 46.6929; Globulin 1.7 g/dL (1.3-4.6); Glucose 83 mg/dL (65-115); Lactate Dehydrogenase 291 U/L (135-214); Lipase 34 U/L (13-60); NT Pro B Type Natriuretic Pept 443 pg/mL (0-450); Osmolality Calculated 303 mOsm/kg (285-295); Potassium 3.9 mmol/L (3.5-5.1); Sodium 146 mmol/L (136-145); Total Bilirubin 0.6 mg/dL (0.15-1.2); Total Protein 5.4 g/dL (6.6-8.7)
--- NOTE | 2021-11-08 16:17 | PC.NURSE ---
patient sleeping comfortablyin bed at this time. no s/s distress noted. patient in no obvious distress. Patinet on monitoring engineer. NC @ 2 liters per minute. family at bedside.
--- NOTE | 2021-11-08 16:21 | ECG_ITS ---
[facility] Test Date: 2021-11-08 Pat Name: Iris Garcia Department: Room: Gender: Female Technical Document Writer: : 1940 Requested By: Victor Hugo Grossman Order Number: [id number] Krupa MD: Tere Teixeira M.D. Measurements Intervals [place] Rate: 75 P: -18 NC: 271 QRS: 60 QRSD: 113 T: 73 QT: 441 QTc: 495 Interpretive Statements SURAVENTRICULAR RHYTHM MODERATE INTRAVENTRICULAR CONDUCTION DELAY [110+ ms QRS DURATION] MODERATE ST DEPRESSION [0.05+ mV ST DEPRESSION] Compared to ECG 11/08/2021 14:10:34 First degree AV block now present Atrial fibrillation no longer present ST (T wave) deviation still present Electronically Signed On 11-09-2021 5:15:27 KETTLE COOK by Tere Teixeira M.D. [id number]
[2021-11-08 16:36] LABS: Adenovirus Not Detected (NOT DETECT); Chlamydia Pneumoniae Not Detected (NOT DETECT); Coronavirus 229E,HKU1,NL63,OC4 Not Detected (NOT DETECT); Human Metapneumovirus Not Detected (NOT DETECT); Human Rhinovirus/Enterovirus Not Detected (NOT DETECT); Influenza A Not Detected (NOT DETECT); Influenza A H1 Not Detected (NOT DETECT); Influenza A H1-2009 Not Detected (NOT DETECT); Influenza A H3 Not Detected (NOT DETECT); Influenza B Not Detected (NOT DETECT); Mycoplasma Pneumoniae Not Detected (NOT DETECT); Parainfluenza Virus Type 1 Not Detected (NOT DETECT); Parainfluenza Virus Type 2 Not Detected (NOT DETECT); Parainfluenza Virus Type 3 Not Detected (NOT DETECT); Parainfluenza Virus Type 4 Not Detected (NOT DETECT); Respiratory Syncytial Virus A Not Detected (NOT DETECT); Respiratory Syncytial Virus B Not Detected (NOT DETECT); SARS-COV-2 Not Detected (NOT DETECT)
[2021-11-08 16:45] LABS: Influenza A Not Detected (NOT DETECT); Influenza A H1 Not Detected (NOT DETECT); Influenza A H1-2009 Not Detected (NOT DETECT); Influenza A H3 Not Detected (NOT DETECT); Influenza B Not Detected (NOT DETECT); Results from Genmark
[2021-11-08 17:01] VITALS: BP 115/37; PULSE 71; RESP 18; O2SAT 96
[2021-11-08 18:08] LABS: Troponin 5 2HR 14.82 ng/L (0-10); Troponin 5 2HR Delta -1.18 ABS# (0-10)
--- NOTE | 2021-11-08 18:21 | PC.NURSE ---
patient assisted to bedside commode with no difficulties . patient redressed with help of . awaiting family for HOme O2 and will discharge. patient in no obvious distress. patient sitting on bedside commode at this time.
[2021-11-08 18:46] VITALS: BP 105/68; PULSE 102; RESP 22; TEMP 36.6; O2SAT 97
--- NOTE | 2021-11-08 20:21 | ECG_ITS ---
[facility] Test Date: 2021-11-08 Pat Name: Iris Garcia Department: Room: Gender: Female Substation Design Draftsperson: : 1940 Requested By: Victor Hugo Grossman Order Number: [id number] Krupa MD: Tere Teixeira M.D. Measurements Intervals [place] Rate: 63 P: RI: QRS: 56 QRSD: 114 T: 90 QT: 449 QTc: 461 Interpretive Statements ATRIAL FIBRILLATION MODERATE INTRAVENTRICULAR CONDUCTION DELAY [110+ ms QRS DURATION] MODERATE ST DEPRESSION [0.05+ mV ST DEPRESSION] Compared to ECG 08/09/2021 13:06:36 No significant changes Electronically Signed On 11-09-2021 5:16:18 SALES MANAGEMENT TRAINEE by Tere Teixeira M.D. [id number]
[2021-11-08 21:33] LABS: Results from Genmark
== END 2021-11-08 18:47 | disposition home or self-care (01) ==
PROVIDERS: Emergency Provider Emergency Medicine; PCP Family Medicine
DX: J44.1 Chronic obstructive pulmonary disease with (acute) exacerbation (principal); R06.89 Other abnormalities of breathing; Z79.01 Long term (current) use of anticoagulants; I25.10 Atherosclerotic heart disease of native coronary artery without angina pectoris; I11.0 Hypertensive heart disease with heart failure; I50.9 Heart failure, unspecified; G20 Parkinson's disease; Z87.891 Personal history of nicotine dependence; Z20.822 Contact with and (suspected) exposure to COVID-19
CPT/HCPCS: 36600; 71045; 80053; 82805; 83605; 83615; 83690; 83880; 84484; 85025; 86140; 87631; 87635; 93005; 94640; 96374; 99283; J1100; J7030; J7611

== ENCOUNTER 2021-11-20 09:14 | Emergency (ER) | payer MEDICARE, MEDICAID, SELFPAY ==
--- NOTE | 2021-11-20 09:19 | ED_ITS ---
HPI - Fall General: Chief Complaint: Fall Stated Complaint: HEMATOMA RIGHT FOREHEAD S/P FALL Time Seen by Provider: 11/20/21 09:18 History of Present Illness: HPI Narrative: Ms. Garcia is an 81-year-old lady with complex past medical history including atrial fibrillation on anticoagulation, chronic hypoxic respiratory failure secondary to COPD, heart failure who presents the emergency department due to fall injury. She reports being at her baseline health without significant changes recently. She went to the bathroom prior to the fall however was not straining. She went up to reach for something and felt lightheaded or dizzy and fell to the ground. She primarily landed on her right wrist and struck the right side of her head. Possible loss of consciousness of unclear amount of time. No witnessed seizure activity. Currently experiencing moderate intensity discomfort. She is on anticoagulation. No other specific changes in health, exacerbating, relieving factors identified. MD complaint: fall Onset (ago): hour(s) Fall from: standing Fall witnessed: no Loss of consciousness: Unsure Length of LOC: second(s) Prolonged down time: no Symptoms prior to fall: lightheadedness and dizziness Location of injury: head, face and other Severity: moderate Quality: aching Associated symptoms-after fall: Reports no associated symptoms Review of Systems General: Reports: 10 or more systems reviewed and unremarkable except in HPI and below PFSH ED PFSH: Medical History Acute and chronic respiratory failure with hypercapnia Acute and chronic respiratory failure with hypercapnia Acute encephalopathy Acute exacerbation of chronic obstructive airways disease Acute exacerbation of COPD with asthma Acute metabolic encephalopathy Afib Anemia -baseline Hg around 9-10 -follow with Dr Bullock Anemia Anemia Atrial fibrillation CAD (coronary artery disease) CHF (congestive heart failure) Chronic anticoagulation Due to mechanical mitral valve; coumadin Chronic anticoagulation Chronic hypercapnic respiratory failure Congestive heart failure COPD (chronic obstructive pulmonary disease) COPD (chronic obstructive pulmonary disease) Depression Diastolic CHF GERD (gastroesophageal reflux disease) PPI HTN (hypertension) Hypernatremia Hypothyroidism -continue levothyroxine Iron deficiency anemia Has required transfusion in past, last egd and colonoscopy ~2017 with diverticulosis and internal hemorrhoids, SONYA (obstructive sleep apnea) Parkinson disease Follows up with Dr. Rainey in [place] Pulmonary hypertension Respiratory failure with hypoxia and hypercapnia Schatzki's ring Subtherapeutic international normalized ratio (INR) Weakness Surgical History History of bilateral tubal ligation History of cholecystectomy History of total knee arthroplasty Left Mitral valve replaced Mechanical, on coumadin Family History Mother CAD (coronary artery disease) Diabetes Other Hypertension Social History Quit status (tobacco): has quit using tobacco Year quit tobacco: 1994 PPD x 15 Years Second hand smoke exposure: No Smoking risk assessment/counseling performed?: No Alcohol intake: never Counseling given: No Counseling given: No Caregiver/support person: Yes Household members: spouse and children Housing: House Marital status: Current occupational status: retired and disabled History of recent travel: No Current gender identity: Female Physical Exam Const: COMMON NORMALS: alert GENERAL APPEARANCE: cooperative and well developed HENMT: COMMON NORMALS: normocephalic, external ears normal and Normal external nose present HEAD & SCALP: normocephalic FACE & SINUS: ecchymosis NOSE: Normal external nose present EXTERNAL EAR: Yes external ears normal MOUTH: Normal oral and palatal mucosa present OTHER: Large contusion to right lateral periorbital region. No evidence of ocular entrapment or obvious bony instability. No lindquist signs or raccoon eyes External ears and nose are normal without evidence of trauma Jaw alignment and speech unremarkable. Eye: COMMON NORMALS: conjunctivae normal CONJUNCTIVA: Yes conjunctivae normal SCLERA: sclerae normal Neck/C-Spine: COMMON NORMALS: supple GENERAL: Yes trachea midline Resp: COMMON NORMALS: normal respiratory effort EFFORT & INSPECTION: Yes able to speak in complete sentences Cardio: COMMON NORMALS: regular rate and regular rhythm RATE: regular rate RHYTHM: regular rhythm GI: COMMON NORMALS: Soft to palpation PALPATION: Yes Soft to palpation and No Tenderness to palpation present (GI) PERCUSSION: normal to percussion Extremity: GENERAL: No edema (No peripheral edema) OTHER: Large complex skin tear with exposed subcutaneous tissue with oozing without arterial bleeding to the right forearm and posterior hand. There is tenderness to palpation. Distal CMS is intact. Neuro: COMMON NORMALS: moves all extremities SENSORIUM/ORIENTATION: Yes alert and No Orientation impaired Psych: COMMON NORMALS: mental status grossly normal and Normal thought process present THOUGHT PROCESS: Normal thought process present Skin: OTHER: Large skin tear which is complex as noted in extremity Course ED course: - Patient was seen and evaluated by me at bedside - Patient placed on cardiac monitors, IV access obtained - Initial evaluation notable for facial contusion and arm injury as noted above without other obvious evidence of pathology or injury - Labs notable for no leukocytosis. No acute metabolic derangement to explain the patient's symptoms. INR pending at time of imaging return. - Imaging notable for subarachnoid hemorrhage likely traumatic. Additionally she has right radial and ulnar fracture. - Unfortunately the patient does have a mechanical mitral valve. I discussed risks of anticoagulation reversal including blood clots. Unfortunately, especially given most recent known INR of 3.7, with current pending, the benefit exceeds the risk for reversal which was ordered. - Upon serial reexamination after treatment the patient was similar. - Based on patient history, evaluation, labs, and imaging as interpreted the most likely cause of the patient's condition is traumatic injuries including subarachnoid hemorrhage complicated by use of warfarin as well as right distal radius and ulna fracture with significant overlying complex skin tear. - Discussed the results of ED evaluation with the patient including need for neurosurgical evaluation and trauma team monitoring. Patient agreeable to transfer. - Dr. Lares accepted patient as a trauma ED to ED transfer in [facility]. - Due to high risk of clinical deterioration and potentially life-threatening complications related to sustained injuries patient requires air transport. - Transported out of emergency department via Air EVAC team in satisfactory condition without acute change in mental status or clinically significant deterioration. Note: Click bubbles or prepopulated mckeon in note writing are used for assistance with data collection and billing and are inherently more limited than narrative and other text portions of this note. Please use narrative for additional clinical history and defer to narrative/free test for any case of contradictory information. If information appears in only free text or click bubble it should be considered present or absent as reported. Please contact note underwriter for clarifications of clinical information or contradictory information. MDM is a brief summary, contradictory or erroneous seeming information should be clarified and full note should be reviewed. Vital Signs: Vital signs: Vital Signs Temperature 98.1 F 11/20/21 09:30 Pulse Rate 89 11/20/21 13:08 Respiratory Rate 24 H 11/20/21 13:08 Blood Pressure 125/59 11/20/21 13:08 Pulse Oximetry 94 11/20/21 13:08 MDM - Fall MDM Narrative Medical decision making narrative: 81-year-old lady on warfarin for mitral mechanical valve presenting with fall. Facial contusion noted as well as obvious large complex skin tear on the right forearm posterior aspect. Imaging reveals subarachnoid hemorrhage without evidence of midline shift. X-rays revealed distal radius and ulna fracture. Patient requires definitive management care by trauma service as well as neurosurgical evaluation. She was neurovascularly intact and transferred to [place]. Medical Records Attestation: I reviewed the patient's medical records. Lab Data Attestation: I reviewed the patient's lab results. Result diagrams: 11/20/21 11:04 11/20/21 11:04 Labs: Lab Results 11/20/21 11/20/21 11/20/21 11:04 11:04 11:04 WBC 7.3 10^3/uL 10^3/uL (4.0-10.0) RBC 4.49 10^6/uL 10^6/uL (4.1-5.3) Hgb 13.3 g/dL g/dL (11.5-15.3) Hct 42.3 % % (37.0-47.0) MCV 94.2 fl fl (81-99) MCH 29.6 pg pg (28.0-34.0) MCHC 31.4 g/dL g/dL (30.0-36.0) RDW 14.3 % % (12.1-15.1) Plt Count 106 10^3/cmm L 10^3/cmm (130-400) MPV 10.0 fL fL (7.4-10.4) Neut % (Auto) 76.4 % % Lymph % (Auto) 14.7 % % [place] % (Auto) 7.4 % % Eos % (Auto) 1.1 % % Baso % (Auto) 0.1 % % Neut # (Auto) 5.55 10^3/uL 10^3/uL (1.8-7.7) Lymph # (Auto) 1.1 10^3/uL 10^3/uL (0.8-4.8) [place] # (Auto) 0.5 10^3/uL 10^3/uL (0.2-0.9) Eos # (Auto) 0.1 10^3/uL 10^3/uL (0.0-0.8) Baso # (Auto) 0.0 10^3/uL 10^3/uL (0.0-0.1) Nucleated RBC % (auto) 0 % % Nucleated RBCs # 0.0 /100WBC /100WBC PT INR Sodium 142 mmol/L mmol/L (136-145) Potassium 4.2 mmol/L mmol/L (3.5-5.1) Chloride 100 mmol/L mmol/L (98-107) Carbon Dioxide 33 mmol/L H mmol/L (22-29) Anion Gap 13.2 (5-19) BUN 23 mg/dL mg/dL (8-23) Creatinine 0.8 mg/dL mg/dL (0.5-0.9) GFR Calculation Not Reportable Glucose 98 mg/dL mg/dL (65-115) Calculated Osmolality 298 mOsm/kg H mOsm/kg (285-295) Calcium 8.7 mg/dL mg/dL (8.5-10.5) Troponin T Baseline 141 ng/L H* ng/L (0-10) 11/20/21 11:09 WBC RBC Hgb Hct MCV MCH MCHC RDW Plt Count MPV Neut % (Auto) Lymph % (Auto) [place] % (Auto) Eos % (Auto) Baso % (Auto) Neut # (Auto) Lymph # (Auto) [place] # (Auto) Eos # (Auto) Baso # (Auto) Nucleated RBC % (auto) Nucleated RBCs # PT 26.90 SECONDS H SECONDS (12.1-14.9) INR 2.43 H (0.8-1.2) Sodium Potassium Chloride Carbon Dioxide Anion Gap BUN Creatinine GFR Calculation Glucose Calculated Osmolality Calcium Troponin T Baseline EKG Data^ EKG 1: Attestation: I personally reviewed and interpreted this EKG as follows: EKG interpretation date: 11/20/21 EKG interpretation time: 10:43 Ischemic changes: non-specific ST-T wave changes Interpretation: Twelve-lead EKG shows an irregular rhythm at a rate of 91. No MT interval, QRS duration 94, QTc 416. Normal axis. Interpretation: Atrial fibrillation with nonspecific ST segment abnormalities. Critical Care Time Critical Care Time: Critical Care Time: Yes Total Critical Care Time: 40 Attestation: Due to a high probability of clinically significant, possibly life threatening deterioration, the patient required my highest level of attention and prepa redness to intervene emergently and I personally spent this critical care time directly and personally managing the patient. This critical care time included obtaining a history; examining the patient; pulse oximetry; ordering and review of laboratory and imaging studies; arranging urgent treatment with development of a management plan; evaluation of patient's response to treatment; frequent reassessment; and, discussions with other providers as applicable. It was exclusive of separately billable procedures. Discharge Plan Discharge Patient Disposition: Transfer to ED Clinical Impression: Fall, Chronic anticoagulation, Subarachnoid hemorrhage, Fracture of distal radius and ulna, Skin tear of right upper extremity Prescriptions: No Action fluoxetine 10 mg capsule 10 mg PO DAILY@09 0RF tolterodine 2 mg tablet 2 mg PO BID@, 0RF lisinopril 2.5 mg tablet 2.5 mg PO DAILY Qty: 30 6RF nitroglycerin 0.4 mg Tablet, Sublingual 0.4 mg SUBLINGUAL Q5M PRN (Reason: Chest Pain) 0RF rosuvastatin 10 mg tablet 10 mg PO DAILY@0900 0RF fluticasone propion-salmeterol [Advair Diskus] 250-50 mcg/dose blister with device 1 inh inhalation BID@0900,2100 0RF polyethylene glycol 3350 [Miralax] 17 gram powder in packet 17 g PO DAILY PRN (Reason: Constipation) 0RF isosorbide mononitrate 30 mg Tablet Extended Release 24 Hr 15 mg PO BID@0900,2100 0RF albuterol sulfate 90 mcg/actuation Hfa Aerosol Inhaler 1 inh INHALATION Q6H PRN (Reason: Shortness Of Breath) 0RF nystatin [Nystop] 100,000 unit/gram Powder 1 applic topical BID PRN (Reason: rash) Qty: 60 0RF acetaminophen [Tylenol] 325 mg Tablet 325 - 650 mg PO Q4H PRN (Reason: Pain) 0RF levothyroxine 50 mcg tablet 50 mcg PO QAM 0RF carvedilol 6.25 mg tablet 6.25 mg PO BID 0RF warfarin 3 mg Tablet See Rx Instructions mg .ROUTE .COMPLEX 0RF Protocol: Dose Management Condition: Monday Dose/Route: 3 mg Instruction: 1 x 3 mg tablet Condition: Monday Dose/Route: 3 mg Instruction: 1 x 3 mg tablet Condition: Monday Dose/Route: 3 mg Instruction: 1 x 3 mg tablet Condition: Monday Dose/Route: 3 mg Instruction: 1 x 3 mg tablet Condition: Dose/Route: 3 mg Instruction: 1 x 3 mg tablet Condition: Monday Dose/Route: 3 mg Instruction: 1 x 3 mg tablet Condition: Monday Dose/Route: 3 mg Instruction: 1 x 3 mg tablet Protocol Text: Adjustment Start Date: Monday11/17/21 INR Value: 3.7 INR Date: 11/15/21 Recheck Date: 11/24/21 Rx Instructions: 3mg po daily@15:30 on mon,,mon,sat and sun 4mg po daily@15:30 on mon carbidopa-levodopa 10-100 mg tablet 1 tab PO TID 0RF Vitamin D3 125 mcg (5,000 unit) Tablet 125 mcg PO DAILY 0RF bumetanide 2 mg tablet 2 mg PO DAILY 0RF Ventolin HFA 90 mcg/actuation HFA aerosol inhaler 1 inh inhalation Q6H PRN (Reason: shortness of breath or wheezing) Qty: 8.5 0RF Tessalon Perles 100 mg capsule 100 mg PO TID PRN (Reason: cough) Qty: 20 0RF potassium chloride [Klor-Con 10] 10 mEq tablet extended release 20 meq PO BID@, 0RF ferrous gluconate 324 mg (37.5 mg iron) tablet 324 mg PO BID@, 0RF sennosides-docusate sodium 8.6-50 mg tablet 1 tab PO BID 0RF pantoprazole 40 mg tablet,delayed release (DR/EC) 40 mg PO BID@0900,2100 0RF Referrals: Michael Hampton DO [Primary Care Provider] - Coding Level of Care Code ED Licensed Loan Officer for Chg Fwd Exam Comprehensive
[2021-11-20 09:30] VITALS: BP 93/69; PULSE 118; RESP 20; TEMP 36.7; O2SAT 94; BMI 26.4
--- NOTE | 2021-11-20 09:41 | XRR_ITS ---
PROCEDURE INFORMATION: Exam: XR Chest Exam date and time: 11/20/2021 9:41 AM Age: 81 years old Clinical indication: Injury or trauma; Fall; Blunt trauma (contusions or hematomas); Additional info: Fall, lightheaded TECHNIQUE: Imaging protocol: XR of the chest. Views: 1 view. COMPARISON: CR XR chest 1V portable [id number] 11/08/2021 2:29 PM FINDINGS: Lungs: No pneumonia or pulmonary edema. Prior pulmonary granulomatous disease. Pleural spaces: No pleural effusion. No pneumothorax. Heart/Mediastinum: The cardiac silhouette is enlarged. Prior mitral valve replacement. The mediastinal contours are normal. Vasculature: The aorta is atherosclerotic. Bones/joints: Prior sternotomy. The bones are diffusely osteopenic. Carrasco-shaped deformity of the ribs compatible with this. XR/XR chest 1V portable [id number] IMPRESSION: No acute finding.
--- NOTE | 2021-11-20 09:41 | CTR_ITS ---
PROCEDURE INFORMATION: Exam: CT Cervical Spine Without Contrast Exam date and time: 11/20/2021 9:41 AM Age: 81 years old Clinical indication: Injury or trauma; Fall; Blunt trauma; Additional info: Fall, head injury, loc, thinners TECHNIQUE: Imaging protocol: Computed tomography images of the cervical spine without contrast. Radiation optimization: All CT scans at this facility use at least one of these dose optimization techniques: automated exposure control; mA and/or kV adjustment per patient size (includes targeted exams where dose is matched to clinical indication); or iterative reconstruction. COMPARISON: CT cervical spin wo con* [id number] 10/24/2020 8:04 PM RADIATION DOSE METRICS: Total DLP (mGy-cm): 381.6 FINDINGS: Bones/joints: The vertebral bodies maintain height and alignment. The facets align normally. There is multilevel bilateral facet arthropathy in the upper cervical spine, more so on the left. The craniocervical junction is normal. The atlantodens interval is not widened. No acute fracture. Discs/Spinal canal/Neural foramina: There is multilevel disc and uncovertebral joint degeneration. There is multilevel bilateral degenerative foraminal stenosis of varying degrees. Lungs: The lung apices are normal. Soft tissues: No acute soft tissue abnormality. CT/CT cervical spin wo con* [id number] IMPRESSION: 1. No acute osseous abnormality. 2. Multilevel degenerative changes.
--- NOTE | 2021-11-20 09:41 | CTR_ITS ---
PROCEDURE INFORMATION: Exam: CT Maxillofacial Without Contrast Exam date and time: 11/20/2021 9:41 AM Age: 81 years old Clinical indication: Injury or trauma; Fall; Blunt trauma (contusions or hematomas); Forehead; Additional info: Fall, head injury, loc, thinners hit RT side TECHNIQUE: Imaging protocol: Computed tomography images of the face without contrast. Radiation optimization: All CT scans at this facility use at least one of these dose optimization techniques: automated exposure control; mA and/or kV adjustment per patient size (includes targeted exams where dose is matched to clinical indication); or iterative reconstruction. COMPARISON: CT head wo con* [id number] 11/20/2021 10:16 AM RADIATION DOSE METRICS: Total DLP (mGy-cm): 693.78 FINDINGS: Orbital cavity: No intraorbital emphysema or hematoma. The globes are intact. Bones/joints: No fracture. The temporomandibular joints are intact. Paranasal sinuses: The paranasal sinuses are aerated. Soft tissues: There is superficial soft tissue swelling at the lateral margin of the right orbit, anterior right temporal fossa, right frontal scalp, and overlying the right zygomatic arch and masseter muscle compatible with contusion/hematoma. CT/CT facial bones wo con* [id number] IMPRESSION: Superficial soft tissue injury without osseous injury.
--- NOTE | 2021-11-20 09:41 | XRR_ITS ---
PROCEDURE INFORMATION: Exam: XR Right Forearm Exam date and time: 11/20/2021 9:41 AM Age: 81 years old Clinical indication: Injury or trauma; Fall; Blunt trauma (contusions or hematomas); Hand; Right; Additional info: Fall, pain, laceration TECHNIQUE: Imaging protocol: XR Right forearm. Views: 2 views. COMPARISON: No relevant prior studies available. FINDINGS: Bones/joints: There is a transverse fracture of the distal radius with dorsal impaction. There is a fracture across the base of the ulnar styloid. Multifocal degenerative changes, most prominently demonstrated at the 1st carpometacarpal joint. There is deformity of the distal 5th metacarpal compatible with a fracture, favor old. Soft tissues: There is soft tissue swelling involving the distal forearm and wrist. XR/XR forearm RT 2V [id number] IMPRESSION: Acute distal radial and ulnar fractures.
--- NOTE | 2021-11-20 09:41 | XRR_ITS ---
PROCEDURE INFORMATION: Exam: XR Right Hand Exam date and time: 11/20/2021 9:41 AM Age: 81 years old Clinical indication: Injury or trauma; Fall; Blunt trauma (contusions or hematomas); Arm, lower; Right; Additional info: Fall, injury TECHNIQUE: Imaging protocol: XR Right hand. Views: 3 or more views. COMPARISON: No relevant prior studies available. FINDINGS: Bones/joints: There is a transverse fracture of the distal radius with dorsal impaction. There is a fracture across the base of the ulnar styloid. Multifocal degenerative changes, most prominently demonstrated at the 1st carpometacarpal joint. There is deformity of the distal 5th metacarpal compatible with a fracture, favor old. Soft tissues: There is soft tissue swelling involving the distal forearm and wrist. XR/XR hand RT min 3V* [id number] IMPRESSION: Acute distal radial and ulnar fractures.
--- NOTE | 2021-11-20 09:41 | CTR_ITS ---
PROCEDURE INFORMATION: Exam: CT Head Without Contrast Exam date and time: 11/20/2021 9:41 AM Age: 81 years old Clinical indication: Injury or trauma; Fall; Blunt trauma (contusions or hematomas); Additional info: Fall, head injury, loc, thinners, hit head on RT side TECHNIQUE: Imaging protocol: Computed tomography of the head without contrast. Radiation optimization: All CT scans at this facility use at least one of these dose optimization techniques: automated exposure control; mA and/or kV adjustment per patient size (includes targeted exams where dose is matched to clinical indication); or iterative reconstruction. COMPARISON: CT head wo con* [id number] 08/09/2021 10:41 AM RADIATION DOSE METRICS: Total DLP (mGy-cm): 802.46 FINDINGS: Limitations: The study is technically limited by motion artifact. Brain: There is mild right frontal posttraumatic subarachnoid hemorrhage. No acute brain parenchymal abnormality. There is mild diffuse cerebral atrophy. Cerebral ventricles: No hydrocephalus or intraventricular hemorrhage. Paranasal sinuses: The paranasal sinuses are aerated. Mastoid air cells: Mild left mastoid air cell effusions. Bones/joints: No calvarial fracture. Soft tissues: There is focal soft tissue swelling at the lateral margin of the right orbit, anterior right temporal fossa, and adjacent right frontal scalp compatible with hematoma. CT/CT head wo con* [id number] IMPRESSION: Mild right frontal posttraumatic subarachnoid hemorrhage.
--- NOTE | 2021-11-20 09:42 | ECG_ITS ---
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 Measurements Intervals [place] Rate: 91 P: HI: QRS: 65 QRSD: 94 T: 263 QT: 367 QTc: 452 Interpretive Statements ATRIAL FIBRILLATION ST DEVIATION AND MODERATE T-WAVE ABNORMALITY, CONSIDER INFERIOR ISCHEMIA [-0.1+ mV T-WAVE IN II/aVF] INTERPRETATION BASED ON A DEFAULT AGE OF 40 YEARS Compared to ECG 11/08/2021 16:31:26 T-wave abnormality now present Possible ischemia now present Intraventricular conduction delay no longer present ST (T wave) deviation no longer present Electronically Signed On 11-21-2021 19:56:47 [employer] by Santos Adorno M.D. [id number]
[2021-11-20 11:12] LABS: Basophils % 0.1 %; Eosinophils # 0.1 10^3/uL (0.0-0.8); Eosinophils % 1.1 %; Hematocrit 42.3 % (37.0-47.0); Hemoglobin 13.3 g/dL (11.5-15.3); Lymphocytes # 1.1 10^3/uL (0.8-4.8); Lymphocytes % 14.7 %; Mean Corpuscular HGB Conc 31.4 g/dL (30.0-36.0); Mean Corpuscular Hemoglobin 29.6 pg (28.0-34.0); Mean Corpuscular Volume 94.2 fl (81-99); Monocytes # 0.5 10^3/uL (0.2-0.9); Monocytes % 7.4 %; Neutrophils # 5.55 10^3/uL (1.8-7.7); Neutrophils % 76.4 %; Nucleated Red Blood Cells % 0 %; Platelet Count 106 10^3/cmm (130-400); Red Blood Count 4.49 10^6/uL (4.1-5.3); Red Cell Distribution Width 14.3 % (12.1-15.1); White Blood Count 7.3 10^3/uL (4.0-10.0)
--- NOTE | 2021-11-20 11:12 | PC.NURSE ---
LABS DRAWN OFF SITE AND SENT TO LAB.
[2021-11-20 11:30] LABS: Anion Gap 13.2 (5-19); Blood Urea Nitrogen 23 mg/dL (8-23); Calcium 8.7 mg/dL (8.5-10.5); Carbon Dioxide 33 mmol/L (22-29); Chloride 100 mmol/L (98-107); Glucose 98 mg/dL (65-115); Osmolality Calculated 298 mOsm/kg (285-295); Potassium 4.2 mmol/L (3.5-5.1); Sodium 142 mmol/L (136-145)
[2021-11-20 11:33] LABS: INR 2.43 (0.8-1.2)
[2021-11-20 11:36] LABS: Troponin(5th) Baseline 141 ng/L (0-10)
--- NOTE | 2021-11-20 12:22 | PC.NURSE ---
THIS CREDENTIALING ANALYST TALKED WITH AND I WRAPPED ARM BOARD WITH KERLIX AND THEN PLACED TELFA PADS OVER OPEN WOUND AND THEN PUT 2 ABD PADS OVER THAT AND THEN USED ANOTHER ROLL OF KERLIX AROUND THAT, PATIENT ABLE TO MOVE FINGERS SAME BEFORE DRESSING AND BRACE AND THEN COBAN USED TO WRAP DRESSING. PATIENTS FINGERS WERE DISCOLORED PRIOR TO DRESSING.
[2021-11-20 13:08] VITALS: BP 125/59; PULSE 89; RESP 24; O2SAT 94
[2021-11-20] MEDS: phytonadione (ADULT) 10 MG in sodium chloride 0.9% 50 ML 153 MG IV (13:12)
== END 2021-11-20 13:13 ==
PROVIDERS: Emergency Provider Emergency Medicine; PCP Family Medicine
DX: S06.6X9A Traumatic subarachnoid hemorrhage with loss of consciousness of unspecified duration, initial encounter (principal); S52.501A Unspecified fracture of the lower end of right radius, initial encounter for closed fracture; S52.601A Unspecified fracture of lower end of right ulna, initial encounter for closed fracture; S41.111A Laceration without foreign body of right upper arm, initial encounter; Z79.01 Long term (current) use of anticoagulants; J44.9 Chronic obstructive pulmonary disease, unspecified; I25.10 Atherosclerotic heart disease of native coronary artery without angina pectoris; I11.0 Hypertensive heart disease with heart failure; I50.30 Unspecified diastolic (congestive) heart failure; Z87.891 Personal history of nicotine dependence; W19.XXXA Unspecified fall, initial encounter
CPT/HCPCS: 36415; 70450; 70486; 71045; 72125; 73090; 73130; 80048; 84484; 85025; 85610; 93005; 96365; 96367; 99285; J3430; J7168

== ENCOUNTER 2021-12-03 09:27 | Outpatient (CLI) | payer MEDICARE, MEDICAID, SELFPAY ==
[2021-12-03 10:34] LABS: Basophils % 0.4 %; Eosinophils # 0.1 10^3/uL (0.0-0.8); Hematocrit 25.6 % (37.0-47.0); Hemoglobin 7.8 g/dL (11.5-15.3); Lymphocytes # 0.6 10^3/uL (0.8-4.8); Lymphocytes % 13.6 %; Mean Corpuscular HGB Conc 30.5 g/dL (30.0-36.0); Mean Corpuscular Hemoglobin 29.8 pg (28.0-34.0); Mean Corpuscular Volume 97.7 fl (81-99); Mean Platelet Volume 10.1 fL (7.4-10.4); Monocytes # 0.4 10^3/uL (0.2-0.9); Monocytes % 9.6 %; Neutrophils # 3.31 10^3/uL (1.8-7.7); Nucleated Red Blood Cells % 0 %; Platelet Count 221 10^3/cmm (130-400); Red Blood Count 2.62 10^6/uL (4.1-5.3); Red Cell Distribution Width 14.9 % (12.1-15.1); White Blood Count 4.5 10^3/uL (4.0-10.0)
== END 2021-12-03 09:28 | disposition home or self-care (01) ==
LOC: LAB 09:30
PROVIDERS: PCP Family Medicine; Visit Provider Nurse Practitioner Family
DX: I10 Essential (primary) hypertension (principal)
CPT/HCPCS: 85025

== ENCOUNTER 2021-12-03 18:23 | Inpatient (IN) | payer MEDICARE, MEDICAID, SELFPAY ==
--- NOTE | 2021-12-03 18:25 | W.ED.AMS ---
HPI - Altered Mental Status General: Chief Complaint: ER Hold Stated Complaint: AMS Time Seen by Provider: 12/03/21 18:25 History of Present Illness: Ms. Kirk is a 81-year-old lady with complex past medical history including hypertension, hyperlipidemia, heart failure, chronic hypoxic respiratory failure, atrial fibrillation and mechanical mitral valve with recent hospitalization and transfer for fall with subarachnoid hemorrhage. She was discharged reportedly 1 week ago and was sent to a rehab facility. Since being at the rehab she has had progressive onset of generalized confusion and malaise. The patient herself denies specific complaints. She denies being in pain or recurrent falls. Overall the course of symptoms has apparently been worsening. Intensity is moderate to severe. Denies other specific exacerbating relieving factors. Onset (ago): day(s) Severity: severe Consistency of symptoms: Getting Worse Context: other Associated symptoms: Reports no associated symptoms Review of Systems General: Reports: 10 or more systems reviewed and unremarkable except in HPI and below PFSH ED PFSH: Medical History Acute and chronic respiratory failure with hypercapnia Acute and chronic respiratory failure with hypercapnia Acute encephalopathy Acute exacerbation of chronic obstructive airways disease Acute exacerbation of COPD with asthma Acute metabolic encephalopathy Afib Anemia -baseline Hg around 9-10 -follow with Dr Bullock Anemia Anemia Atrial fibrillation CAD (coronary artery disease) CHF (congestive heart failure) Chronic anticoagulation Due to mechanical mitral valve; coumadin Chronic anticoagulation Chronic hypercapnic respiratory failure Congestive heart failure COPD (chronic obstructive pulmonary disease) COPD (chronic obstructive pulmonary disease) Depression Diastolic CHF GERD (gastroesophageal reflux disease) PPI HTN (hypertension) Hypernatremia Hypothyroidism -continue levothyroxine Iron deficiency anemia Has required transfusion in past, last egd and colonoscopy ~2017 with diverticulosis and internal hemorrhoids, SONYA (obstructive sleep apnea) Parkinson disease Follows up with Dr. Rainey in [place] Pulmonary hypertension Respiratory failure with hypoxia and hypercapnia Schatzki's ring Subtherapeutic international normalized ratio (INR) Weakness Surgical History History of bilateral tubal ligation History of cholecystectomy History of total knee arthroplasty Left Mitral valve replaced Mechanical, on coumadin Family History Mother CAD (coronary artery disease) Diabetes Other Hypertension Social History Quit status (tobacco): has quit using tobacco Year quit tobacco: 1994 - PPD x 15 Years Second hand smoke exposure: No Smoking risk assessment/counseling performed?: No Alcohol intake: never Counseling given: No Counseling given: No Caregiver/support person: Yes Household members: spouse and children Housing: House Marital status: Current occupational status: retired and disabled History of recent travel: No Current gender identity: Female Physical Exam Const: COMMON NORMALS: alert GENERAL APPEARANCE: cooperative, well developed and frail appearing HENMT: COMMON NORMALS: normocephalic HEAD & SCALP: normocephalic THROAT: posterior oropharynx normal OTHER: Contusion with ecchymosis to the left periorbital and facial region, reported from prior trauma Eye: COMMON NORMALS: conjunctivae normal CONJUNCTIVA: Yes conjunctivae normal SCLERA: sclerae normal OTHER: Normal pupil size Neck/C-Spine: COMMON NORMALS: supple GENERAL: Yes trachea midline Resp: COMMON NORMALS: normal respiratory effort EFFORT & INSPECTION: Yes able to speak in complete sentences AUSCULTATION: diminished lung sounds Cardio: COMMON NORMALS: regular rate RATE: regular rate RHYTHM: abnormal rhythm irregularly irregular GI: COMMON NORMALS: Soft to palpation PALPATION: Yes Soft to palpation and No Tenderness to palpation present (GI) PERCUSSION: normal to percussion Extremity: NARRATIVE EXTREMITY EXAM: Right upper extremity in splint, distal CMS intact. Bilateral lower extremity chronic vascular changes GENERAL: Yes normal exam except as noted and No edema Neuro: COMMON NORMALS: moves all extremities SENSORIUM/ORIENTATION: Yes alert and No Orientation impaired OTHER: Nonfocal neurologic exam, mildly slowed responses. Psych: COMMON NORMALS: mental status grossly normal and Normal thought process present THOUGHT PROCESS: Normal thought process present Course ED course: - Patient was seen and evaluated by me at bedside - Patient placed on cardiac monitors, IV access obtained - Initial evaluation notable for exam as above, ill, no focal neurologic deficits - Labs notable for no leukocytosis, normocytic anemia. Creatinine meets FRANCISCO criteria significantly above baseline. PCO2 is somewhat elevated on ABG. BiPAP ordered - Imaging notable for no acute findings on chest x-ray. CT head negative - Upon serial reexamination after treatment the patient was similar - Based on patient history, evaluation, labs, and imaging as interpreted the most likely cause of the patient's condition is FRANCISCO and hypercapnia. Given complex history including severe pulmonary hypertension the patient is not a candidate for aggressive high-volume hydration in the emergency department for treatment of FRANCISCO - The results of ED evaluation were discussed with the patient including plan for admission due to requirement for level of care not available if discharged to prevent significant worsening/deterioration. - Admitting service was contacted and Dr Perales with the hospitalist service agreed to admit the patient - Patient was admitted without further deterioration or significant events. Note: Click bubbles or prepopulated mckeon in note writing are used for assistance with data collection and billing and are inherently more limited than narrative and other text portions of this note. Please use narrative for additional clinical history and defer to narrative/free test for any case of contradictory information. If information appears in only free text or click bubble it should be considered present or absent as reported. Please contact note software writer for clarifications of clinical information or contradictory information. MDM is a brief summary, contradictory or erroneous seeming information should be clarified and full note should be reviewed. Vital Signs: Vital signs: Vital Signs Temperature 98.4 F 12/07/21 20:00 Pulse Rate 73 12/07/21 21:27 Respiratory Rate 32 H 12/07/21 21:27 Blood Pressure 112/67 12/07/21 20:00 Pulse Oximetry 95 12/07/21 21:27 MDM - Altered Mental Status Medical Decision Making 81-year-old lady with complex past medical history including recent transfer for subarachnoid hemorrhage secondary to fall recently discharged back to a rehab facility presenting with generalized worsening weakness and confusion. Patient found to have FRANCISCO and mild hypercapnia. Given comorbidities she requires further inpatient management. Medical Records I reviewed the patient's medical records. Lab Data I reviewed the patient's lab results. : 12/07/21 04:59 12/07/21 04:59 Radiology Impressions Chest X-Ray 12/03/21 18:35 IMPRESSION: No acute findings. Head CT 12/03/21 18:35 IMPRESSION: 1. No acute intracranial abnormality. 2. Bilateral mastoid effusion, greater on the left. Laboratory Results WBC 4.7 10^3/uL (4.0-10.0) 12/03/21 18:38 RBC 2.59 10^6/uL (4.1-5.3) L 12/03/21 18:38 Hgb 7.8 g/dL (11.5-15.3) L 12/03/21 18:38 Hct 25.2 % (37.0-47.0) L 12/03/21 18:38 MCV 97.3 fl (81-99) 12/03/21 18:38 MCH 30.1 pg (28.0-34.0) 12/03/21 18:38 MCHC 31.0 g/dL (30.0-36.0) 12/03/21 18: RDW 15.0 % (12.1-15.1) 12/03/21 18:38 Plt Count 240 10^3/cmm (130-400) 12/03/21 18:38 MPV 10.1 fL (7.4-10.4) 12/03/21 18:38 Neut % (Auto) 67.6 % 12/03/21 18:38 Lymph % (Auto) 17.6 % 12/03/21 18:38 Walsh % (Auto) 12.3 % 12/03/21 18:38 Eos % (Auto) 1.9 % 12/03/21 18:38 Baso % (Auto) 0.6 % 12/03/21 18:38 Neut # (Auto) 3.19 10^3/uL (1.8-7.7) 12/03/21 18: Lymph # (Auto) 0.8 10^3/uL (0.8-4.8) 12/03/21 18:38 Walsh # (Auto) 0.6 10^3/uL (0.2-0.9) 12/03/21 18:38 Eos # (Auto) 0.1 10^3/uL (0.0-0.8) 12/03/21 18:38 Baso # (Auto) 0.0 10^3/uL (0.0-0.1) 12/03/21 18:38 Nucleated RBC % (auto) 0 % 12/03/21 18: Nucleated RBCs # 0.0 /100WBC 12/03/21 18:38 Specimen Type Arterial 12/03/21 19:18 Sample Site Brachial, left 12/03/21 19:18 ABG pH 7.47 (7.35-7.45) H 12/03/21 19:18 ABG pCO2 56.4 mmHg (35-45) H 12/03/21 19:18 ABG pO2 133.0 mmHg (80.0-100.0) H 12/03/21 19:18 ABG HCO3 40.9 mmol/L (22-26) H 12/03/21 19:18 ABG Base Excess 15.4 mmol/L (-2.0-2.0) H 12/03/21 19:18 César Test Pos 12/03/21 19:18 Hematocrit 26.8 % (37-47) L 12/03/21 19:18 O2 Delivery Device Nc 12/03/21 19:18 O2 Liters/Min 2.0 % 12/03/21 19:18 FiO2 28.0 % 12/03/21 19:18 Transfer Table Operator Helper ID Cak 12/03/21 19:18 Sodium 142 mmol/L (136-145) 12/03/21 18:38 Potassium 4.3 mmol/L (3.5-5.1) 12/03/21 18:38 Chloride 95 mmol/L (98-107) L 12/03/21 18:38 Carbon Dioxide 36 mmol/L (22-29) H 12/03/21 18:38 Anion Gap 15.3 (5-19) 12/03/21 18:38 BUN 38 mg/dL (8-23) H 12/03/21 18:38 Creatinine 2.0 mg/dL (0.5-0.9) H 12/03/21 18:38 GFR Calculation Not Reportable 12/03/21 18:38 Glucose 109 mg/dL (65-115) 12/03/21 18:38 POC Glucose 91 mg/dL (70-110) 12/03/21 21:17 Calculated Osmolality 304 mOsm/kg (285-295) H 12/03/21 18:38 Calcium 7.5 mg/dL (8.5-10.5) L 12/03/21 18:38 Total Bilirubin 1.2 mg/dL (0.15-1.2) 12/03/21 18:38 AST 10 U/L (0-32) 12/03/21 18:38 ALT < 5 U/L (0-33) 12/03/21 18:38 Alkaline Phosphatase 97 IU/L (35-105) 12/03/21 18:38 Troponin T Baseline 50 ng/L (0-10) H 12/03/21 18:38 Troponin T 120 Minute 45.04 ng/L (0-10) H 12/03/21 20:07 Delta Troponin T -4.96 ABS# (0-10) L 12/03/21 20:07 Troponin T Hi Sens 6Hr 42.04 ng/L (0-10) H 12/04/21 00:32 Troponin T Hi Sens 6Hr Delta -7.96 ng/L (0-12) L 12/04/21 00:32 Total Protein 5.0 g/dL (6.6-8.7) L 12/03/21 18:38 Albumin 3.3 g/dL (3.5-5.2) L 12/03/21 18:38 Globulin 1.7 g/dL (1.3-4.6) 12/03/21 18:38 Procalcitonin 0.07 ng/mL (0-0.5) 12/03/21 18:38 Urine Color Yellow (Yellow) 12/03/21 21:05 Urine Appearance Clear (CLEAR) 12/03/21 21:05 Urine pH 6 (5-7) 12/03/21 21:05 Ur Specific [place] 1.010 (1.005-1.030) 12/03/21 21:05 Urine Protein Neg (Negative) 12/03/21 21:05 Urine Glucose (UA) Norm (Normal) 12/03/21 21:05 Urine Ketones Negative (Negative) 12/03/21 21:05 Urine Blood Neg (Negative) 12/03/21 21:05 Urine Nitrate Negative (Negative) 12/03/21 21:05 Urine Bilirubin Neg (Negative) 12/03/21 21:05 Urine Urobilinogen Norm mg/dL (Negative) 12/03/21 21:05 Ur Leukocyte Esterase Negative (Negative) 12/03/21 21:05 EKG Data EKG 1: I personally reviewed and interpreted this EKG as follows: EKG interpretation date: 12/03/21 EKG interpretation time: 18:51 Interpretation: Twelve-lead EKG shows a regular rhythm at a rate of 60. AR interval unclear, QRS duration 114, QTc 446. Normal axis. Interpretation: Likely sinus rhythm. Discharge Plan Discharge Patient Disposition: Placed in Observation Admit Provider: Serg Perales Clinical Impression: AMS (altered mental status), Hypercapnia, FRANCISCO (acute kidney injury), Pulmonary hypertension Coding Level of Care Code ED Behavior Management Specialist for Chg Fwd Exam Comprehensive
[2021-12-03 18:32] VITALS: BP 105/43; PULSE 57; RESP 16; TEMP 36.6; O2SAT 100; BMI 26.4
--- NOTE | 2021-12-03 18:35 | XRR_ITS ---
PROCEDURE INFORMATION: Exam: XR Chest Exam date and time: 12/03/2021 6:35 PM Age: 81 years old Clinical indication: Other: AMS TECHNIQUE: Imaging protocol: XR of the chest. Views: 1 view. COMPARISON: CR (CHEST, ) 11/20/2021 10:00 AM FINDINGS: Lungs: Lungs are clear. Pleural spaces: There is no pleural effusion or pneumothorax. Heart/Mediastinum: Cardiomediastinal contours are unremarkable. Bones/joints: Sternal wires are present. There is no displacement to suggest sternal dehiscence. XR/XR chest 1V portable [id number] IMPRESSION: No acute findings.
--- NOTE | 2021-12-03 18:35 | CTR_ITS ---
PROCEDURE INFORMATION: Exam: CT Head Without Contrast Exam date and time: 12/03/2021 6:35 PM Age: 81 years old Clinical indication: Altered mental status/memory loss; Confusion or disorientation; Patient HX: Worsening AMS per family - subarachnoid bleed 11-20-21 TECHNIQUE: Imaging protocol: Computed tomography of the head without contrast. Radiation optimization: All CT scans at this facility use at least one of these dose optimization techniques: automated exposure control; mA and/or kV adjustment per patient size (includes targeted exams where dose is matched to clinical indication); or iterative reconstruction. COMPARISON: CT head wo con* [id number] 11/20/2021 10:16 AM RADIATION DOSE METRICS: Total DLP (mGy-cm): 1153.58 FINDINGS: Brain: The brain is unremarkable. There is no mass effect or significant white matter disease. There is no acute intracranial hemorrhage. Cerebral ventricles: There is no significant ventricular dilation. The basal cisterns are unremarkable. Paranasal sinuses: The paranasal sinuses are clear. Mastoid air cells: Bilateral mastoid effusion, greater on the left. Bones/joints: The skull is unremarkable. Soft tissues: The visible extracranial soft tissues are unremarkable. CT/CT head wo con* [id number] IMPRESSION: 1. No acute intracranial abnormality. 2. Bilateral mastoid effusion, greater on the left.
--- NOTE | 2021-12-03 18:37 | ECG_ITS ---
[facility] Test Date: 2021-12-03 Pat Name: Iris Garcia Department: Room: Gender: Female Audio Specialist: : 1940 Requested By: Shon Dunn Order Number: [id number] Krupa MD: Cas Galvez M.D. Measurements Intervals [place] Rate: 60 P: GA: QRS: 12 QRSD: 114 T: 0 QT: 444 QTc: 447 Interpretive Statements SUPRAVENTRICULAR RHYTHM POSSIBLE INFERIOR MYOCARDIAL INFARCTION , PROBABLY OLD [30 ms Q WAVE IN II/aVF] Compared to ECG 11/20/2021 10:39:53 Supraventricular rhythm now present Myocardial infarct finding now present Atrial fibrillation no longer present T-wave abnormality no longer present Possible ischemia no longer present Electronically Signed On 12-04-2021 0:44:12 BRANCH ACCOUNT EXECUTIVE by Cas Galvez M.D. [email or web address]
[2021-12-03 18:47] VITALS: BP 105/43; PULSE 68; RESP 20; O2SAT 94
[2021-12-03 18:48] LABS: Basophils % 0.6 %; Eosinophils # 0.1 10^3/uL (0.0-0.8); Eosinophils % 1.9 %; Hematocrit 25.2 % (37.0-47.0); Hemoglobin 7.8 g/dL (11.5-15.3); Lymphocytes # 0.8 10^3/uL (0.8-4.8); Lymphocytes % 17.6 %; Mean Corpuscular Hemoglobin 30.1 pg (28.0-34.0); Mean Corpuscular Volume 97.3 fl (81-99); Mean Platelet Volume 10.1 fL (7.4-10.4); Monocytes # 0.6 10^3/uL (0.2-0.9); Monocytes % 12.3 %; Neutrophils # 3.19 10^3/uL (1.8-7.7); Neutrophils % 67.6 %; Nucleated Red Blood Cells % 0 %; Platelet Count 240 10^3/cmm (130-400); Red Blood Count 2.59 10^6/uL (4.1-5.3); White Blood Count 4.7 10^3/uL (4.0-10.0)
[2021-12-03 19:19] LABS: Alanine Aminotransferase < 5 U/L (0-33); Albumin Level 3.3 g/dL (3.5-5.2); Alkaline Phosphatase 97 IU/L (35-105); Anion Gap 15.3 (5-19); Aspartate Amino Transferase 10 U/L (0-32); Blood Urea Nitrogen 38 mg/dL (8-23); Calcium 7.5 mg/dL (8.5-10.5); Carbon Dioxide 36 mmol/L (22-29); Chloride 95 mmol/L (98-107); Globulin 1.7 g/dL (1.3-4.6); Glucose 109 mg/dL (65-115); Osmolality Calculated 304 mOsm/kg (285-295); Potassium 4.3 mmol/L (3.5-5.1); Sodium 142 mmol/L (136-145); Total Bilirubin 1.2 mg/dL (0.15-1.2)
[2021-12-03 19:22] LABS: Troponin(5th) Baseline 50 ng/L (0-10)
[2021-12-03 19:26] LABS: Procalcitonin 0.07 ng/mL (0-0.5)
[2021-12-03 19:29] LABS: ABG PCO2 56.4 mmHg (35-45); ABG PH Result 7.47 (7.35-7.45); Arterial Blood Gas Hematocrit 26.8 % (37-47); Base Excess ABG 15.4 mmol/L (-2.0-2.0); Blood Gas Allen Test Pos; Blood Gas Operator Identificat CAK; Blood Gas Sample Site Brachial, left; Blood Gas Sample Type Arterial; HCO3 ABG 40.9 mmol/L (22-26); Oxygen Device NC
[2021-12-03 20:39] LABS: Troponin 5 2HR 45.04 ng/L (0-10)
[2021-12-03 20:49] LABS: Troponin 5 2HR Delta -4.96 ABS# (0-10)
[2021-12-03 21:10] VITALS: PULSE 78; RESP 22; O2SAT 97
[2021-12-03 21:18] LABS: Add Urine Microscopic? NO; Charge for UA Resulting for Rev
[2021-12-03 21:20] LABS: Bilirubin Urine Neg (Negative); Blood Urine Neg (Negative); Glucose Urine UA Norm (Normal); Ketones Urine Negative (Negative); Leukocyte Esterase Urine Negative (Negative); Nitrate Urine Negative (Negative); Protein Urine Neg (Negative); Urine Appearance Clear (CLEAR); Urine Color Yellow (Yellow); Urobilinogen Urine Norm (Negative); pH Urine 6 (5-7)
[2021-12-03] MEDS: sodium chloride 0.9% 500 ML IV (21:20)
[2021-12-03 21:21] LABS: Glucose Point of Care 91 mg/dL (70-110)
--- NOTE | 2021-12-03 22:46 | PM.HP ---
Providers/Chief Complaint Primary Care Provider: Michael Hampton DO Chief Complaint: AMS History of Present Illness Iris Garcia is a 81 year old female severe RLD, chronic hypercapneic respiratory failure, on trilogy at home, pulmonary hypertension, HFpEF,? A fib, mechanical mitral valve, recent history of posttraumatic subarachnoid hemorrhage Was brought in with chief complaint of worsening mentation as well as lethargy for the last 2 to 3 days, she was recently discharged to [facility] a week back after being managed for traumatic subarachnoid hemorrhage. Upon arrival in the ER she was worked up for above-mentioned complaint. Pertinent imaging studies: CT head without contrast: No acute intracranial pathology X-ray chest: No pleural effusion no pulmonary vascular congestion no pneumothorax no infiltrates ABG: pH 7.47 PCO2 56, PO2 133, FiO2 28% Pertinent labs: WBC 4.7 H&H 7.8 / 25.2 , PLT : 240 , serum sodium 142 serum potassium 4.3 BUN/ SCR : 38/2 , serum bicarbonate 36 Troponin trend without significant delta Urinalysis clean Medications/Allergies Home Medications Medication Instructions Recorded Confirmed Last Taken Type fluoxetine 10 mg capsule 10 mg PO DAILY@ cap 11/06/19 11/16/21 07/28/21 History tolterodine 2 mg tablet 2 mg PO BID@03/12/20 11/16/21 07/28/21 History ferrous gluconate 324 mg (37.5 mg 324 mg PO BID@,11/10/20 11/16/21 07/28/21 History iron) tablet potassium chloride 10 mEq 20 meq PO BID@11/10/20 11/16/21 07/28/21 History tablet,extended release (Klor-Con) sennosides 8.6 mg-docusate sodium 1 tab PO BID 11/10/20 11/16/21 06/22/21 History 50 mg tablet pantoprazole 40 mg tablet,delayed 40 mg PO BID@09,209912/31/20 11/16/21 07/28/21 History release fluticasone 250 mcg-salmeterol 50 1 inh INHALATION BID@0900,209902/12/21 11/16/21 07/28/21 History mcg/dose blistr powdr for inhalation (Advair Diskus) nitroglycerin 0.4 mg sublingual 0.4 mg SUBLINGUAL Q5M PRN 02/12/21 11/16/21 Unknown History tablet rosuvastatin 10 mg tablet 10 mg PO DAILY@0900 02/12/21 11/08/21 07/28/21 History albuterol sulfate 90 mcg/actuation 1 inh INHALATION Q6H PRN 02/26/21 11/16/21 Unknown History aerosol inhaler isosorbide mononitrate 30 mg 15 mg PO BID@0900,2100 02/26/21 11/16/21 07/28/21 History tablet,extended release 24 hr nystatin 100,000 unit/gram topical 1 applic TOPICAL BID PRN #60 g 03/01/21 11/16/21 Unknown Rx powder (Nystop) polyethylene glycol 3350 17 gram 17 g PO DAILY PRN 04/27/21 11/16/21 Unknown History oral powder packet (Miralax) lisinopril 2.5 mg tablet 2.5 mg PO DAILY #30 tab 06/09/21 11/16/21 07/28/21 Rx acetaminophen 325 mg tablet 325 - 650 mg PO Q4H PRN 08/09/21 11/16/21 Unknown History (Tylenol) carvedilol 6.25 mg tablet 6.25 mg PO BID 08/09/21 11/16/21 Unknown History levothyroxine 50 mcg tablet 50 mcg PO QAM 08/09/21 11/16/21 Unknown History albuterol sulfate 90 mcg/actuation 1 inh INHALATION Q6H PRN #8.5 g 11/08/21 11/16/21 Unknown Rx aerosol inhaler (Ventolin HFA) benzonatate 100 mg capsule 100 mg PO TID PRN #20 cap 11/08/21 11/16/21 Unknown Rx (Tessalon Perles) bumetanide 2 mg tablet 2 mg PO DAILY 11/08/21 11/16/21 Unknown History carbidopa 10 mg-levodopa 100 mg 1 tab PO TID 11/08/21 11/16/21 Unknown History tablet cholecalciferol (vitamin D3) 125 125 mcg PO DAILY 11/08/21 11/16/21 Unknown History mcg (5,000 unit) tablet (Vitamin D3) warfarin 3 mg tablet See Rx Instructions .ROUTE .COMPLEX 11/08/21 11/17/21 11/07/21 History Allergies Allergy/AdvReac Type Severity Reaction Status Date / Time penicillin G Allergy UNK Verified 11/16/21 14:20 PFSH Acute PFSH: Medical History Acute and chronic respiratory failure with hypercapnia Acute and chronic respiratory failure with hypercapnia Acute encephalopathy Acute exacerbation of chronic obstructive airways disease Acute exacerbation of COPD with asthma Acute metabolic encephalopathy Afib Anemia -baseline Hg around 9-10 -follow with Dr Bullock Anemia Anemia Atrial fibrillation CAD (coronary artery disease) CHF (congestive heart failure) Chronic anticoagulation Due to mechanical mitral valve; coumadin Chronic anticoagulation Chronic hypercapnic respiratory failure Congestive heart failure COPD (chronic obstructive pulmonary disease) COPD (chronic obstructive pulmonary disease) Depression Diastolic CHF GERD (gastroesophageal reflux disease) PPI HTN (hypertension) Hypernatremia Hypothyroidism -continue levothyroxine Iron deficiency anemia Has required transfusion in past, last egd and colonoscopy ~2017 with diverticulosis and internal hemorrhoids, SONYA (obstructive sleep apnea) Parkinson disease Follows up with Dr. Rainey in [place] Pulmonary hypertension Respiratory failure with hypoxia and hypercapnia Schatzki's ring Subtherapeutic international normalized ratio (INR) Weakness Surgical History History of bilateral tubal ligation History of cholecystectomy History of total knee arthroplasty Left Mitral valve replaced Mechanical, on coumadin Family History Mother CAD (coronary artery disease) Diabetes Other Hypertension Social History Quit status (tobacco): has quit using tobacco Year quit tobacco: 1994 - PPD x 15 Years Second hand smoke exposure: No Smoking risk assessment/counseling performed?: No Alcohol intake: never Counseling given: No Counseling given: No Caregiver/support person: Yes Household members: spouse and children Housing: House Marital status: Current occupational status: retired and disabled History of recent travel: No Current gender identity: Female Vitals/I&O/Wt Last Vital Signs Temp 97.8 F 12/03/21 18:32 Pulse 68 12/03/21 18:47 Resp 20 H 12/03/21 18:47 BP 105/43 12/03/21 18:47 Pulse Ox 94 12/03/21 18:47 12/03/21 12/03/2122 06:59 14:59 22:59 Intake Total 500 / 500 Balance 500 / 500 Weight last 48 hrs Weight 61.235 kg Physical Exam HENMT: COMMON NORMALS: normocephalic and atraumatic HEAD & SCALP: normocephalic and atraumatic EXTERNAL EAR: Yes external ears normal Eye: COMMON NORMALS: no scleral icterus GENERAL EYE: appearance normal, both eyes and all related structures Chest: COMMONS NORMALS: normal inspection of the chest and normal palpation of entire chest wall CHEST: Yes Symmetrical chest wall rise Resp: COMMON NORMALS: normal respiratory effort, No retractions, No use of accessory muscles and clear to auscultation bilaterally EFFORT & INSPECTION: Yes symmetric chest movement AUSCULTATION: clear to auscultation bilaterally Cardio: COMMON NORMALS: regular rate, regular rhythm, S1 normal heart sound present, S2 normal heart sound present, No gallops present (Cardio), No murmurs present (Cardio), No rub (Cardio) and Peripheral pulses 2+ throughout RATE: regular rate RHYTHM: regular rhythm HEART SOUNDS: S1 normal heart sound present and S2 normal heart sound present PERIPHERAL PULSES: Peripheral pulses 2+ throughout OTHER: mechanical mitral click present GI: COMMON NORMALS: Normal to inspection, nondistended, normoactive bowel sounds present, Soft to palpation, non-tender, No hepatosplenomegaly present and no masses AUSCULTATION: Yes normoactive bowel sounds PALPATION: Yes Soft to palpation and Yes No hepatosplenomegaly present RECTAL EXAM: deferred Extremity: COMMON NORMALS: no clubbing, cyanosis or edema and no pedal edema Urinary Catheter Management: Lma: Cath Placed During This Visit: yes Urinary Catheter Date of Insertion: 12/03/21 Urinary Catheter Time of Insertion: 21:00 Data : 12/03/21 18:38 12/03/21 18:38 Micro: Microbiology 12/03/21 20:05 Blood Culture - Preliminary Blood SPECIMEN COLLECTED 12/03/21 20:07 Blood Culture - Preliminary Blood SPECIMEN COLLECTED A&P Assessment and plan (1) AMS (altered mental status): Status: Acute (2) FRANCISCO (acute kidney injury): Status: Acute (3) Pulmonary hypertension: Status: Acute (4) Heart failure: Status: Acute Qualifiers: Heart failure type: diastolic Heart failure chronicity: chronic Qualified Code(s): I50.32 - Chronic diastolic (congestive) heart failure (5) Restrictive lung disease: Status: Acute Plan Assessment #Acute metabolic encephalopathy secondary to FRANCISCO, dehydration #FRANCISCO likely prerenal, #Anemia #Hypothyroidism #Severe RLD, #Chronic hypoxic hypercapneic respiratory failure, on trilogy at home, #pulmonary hypertension, #HFpEF #A fib #mechanical mitral valve, #recent history of posttraumatic subarachnoid hemorrhage #plan Continue gentle IV hydration with normal saline. Monitor intake output closely. Monitor BMP Currently Bumex is on hold. Patient was on Lovenox at [facility] after resolution of the episode of traumatic subarachnoid hemorrhage. Given the fact that the hemoglobin 7.8 today, will hold Lovenox for now. Monitor CBC FOBT. Lovenox can be resumed once deemed appropriate. Continue BiPAP Follow blood culture Continue Advair inhaler Continue duo nebs Monitor H&H transfuse if hb less than 7 Continue levothyroxine DVT prophylaxis: SCDS Attestations Medical Necessity Statement*: Patient needs to be in hospital for management of acute metabolic encephalopathy , FRANCISCO , dehydration. Anticipated length of stay greater than 2 midnights. Time Spent in Patient Care: Greater than 35 minutes (>than 50% of time spent in counselling and/or direct pt care on unit). Coding Level of Care Code Acute Rig Builder Helper for Chg Fwd Exam Detailed Diagnoses AMS (altered mental status) R41.82 FRANCISCO (acute kidney injury) N17.9 Pulmonary hypertension I27.20 Heart failure I50.32 Heart failure type: diastolic Heart failure chronicity: chronic Restrictive lung disease J98.4
[2021-12-04] VITALS (18 sets, daily range): BP systolic 97–134; BP diastolic 46–76; PULSE 62–88; RESP 17–24; TEMP 36.3–36.8; O2SAT 94–98
[2021-12-04] MEDS: sodium chloride 0.9% 1,000 ML 75 ML IV (01:15)
[2021-12-04 01:38] LABS: Troponin 5 6HR 42.04 ng/L (0-10)
[2021-12-04 01:49] LABS: Troponin 5 6HR Delta -7.96 ng/L (0-12)
[2021-12-04 02:15] LABS: Add Urine Microscopic? NO; Charge for UA Resulting for Rev
[2021-12-04 02:37] LABS: Bilirubin Urine Neg (Negative); Blood Urine Neg (Negative); Glucose Urine UA Norm (Normal); Ketones Urine Negative (Negative); Leukocyte Esterase Urine Negative (Negative); Nitrate Urine Negative (Negative); Protein Urine Neg (Negative); Specific Gravity, Urine 1.005 (1.005-1.030); Urine Appearance Clear (CLEAR); Urine Color Yellow (Yellow); Urobilinogen Urine Norm (Negative); pH Urine 7 (5-7)
[2021-12-04] MEDS: ipratropium-albuterol 3 mL Neb INHALATION ×4 (03:38→21:51)
[2021-12-04] MEDS: levothyroxine 50 mcg Tablet PO (05:34)
[2021-12-04 06:49] LABS: Basophils % 0.3 %; Eosinophils # 0.1 10^3/uL (0.0-0.8); Eosinophils % 2.8 %; Hematocrit 24.7 % (37.0-47.0); Hemoglobin 7.5 g/dL (11.5-15.3); Lymphocytes # 0.8 10^3/uL (0.8-4.8); Lymphocytes % 23.8 %; Mean Corpuscular HGB Conc 30.4 g/dL (30.0-36.0); Mean Corpuscular Hemoglobin 29.6 pg (28.0-34.0); Mean Corpuscular Volume 97.6 fl (81-99); Mean Platelet Volume 9.9 fL (7.4-10.4); Monocytes # 0.3 10^3/uL (0.2-0.9); Monocytes % 10.5 %; Neutrophils # 2.02 10^3/uL (1.8-7.7); Neutrophils % 62.6 %; Nucleated Red Blood Cells % 0 %; Platelet Count 210 10^3/cmm (130-400); Red Blood Count 2.53 10^6/uL (4.1-5.3); White Blood Count 3.2 10^3/uL (4.0-10.0)
[2021-12-04 07:31] LABS: Anion Gap 12.6 (5-19); Blood Urea Nitrogen 32 mg/dL (8-23); Calcium 7.6 mg/dL (8.5-10.5); Carbon Dioxide 36 mmol/L (22-29); Chloride 100 mmol/L (98-107); Glucose 95 mg/dL (65-115); Magnesium 2.2 mg/dL (1.7-2.3); Osmolality Calculated 307 mOsm/kg (285-295); Potassium 3.6 mmol/L (3.5-5.1); Sodium 145 mmol/L (136-145)
[2021-12-04 07:40] LABS: NT Pro B Type Natriuretic Pept 1181 pg/mL (0-450)
[2021-12-04] MEDS: atorvastatin 40 mg Tablet PO (09:05)
[2021-12-04] MEDS: fluoxetine 10 mg Capsule PO (09:05)
[2021-12-04] MEDS: tolterodine 2 mg Tablet PO ×2 (09:05→20:56)
[2021-12-04] MEDS: cholecalciferol (vitamin D3) 5,000 unit Tablet 5000 UNIT PO (09:05)
[2021-12-04] MEDS: pantoprazole DR 40 mg Tablet PO ×2 (09:05→20:56)
[2021-12-04] MEDS: carvedilol 6.25 mg Tablet PO ×2 (09:05→18:04)
[2021-12-04] MEDS: isosorbide mononitrate ER 30 mg Tablet 15 MG PO ×2 (09:10→20:56)
[2021-12-04] MEDS: ferrous gluconate 324 mg Tablet PO ×2 (09:10→20:56)
--- NOTE | 2021-12-04 12:44 | USCV_ITS ---
rIis Garcia Age: 81 Gender: F : 1940 Exam Date: 12/04/2021 13:05 Ordering Phys: Silas Fox MD Technologist: Exam Location: [facility] [place] Indication: MV PROS MECH BP: 146 / 82 HR: 60 Rhythm: Sinus Technical Quality: Good MEASUREMENTS (Male / Female) Normal Values 2D ECHO LV Diastolic Diameter PLAX 4.3 cm 4.2 - 5.9 / 3.9 - 5.3 cm LV Systolic Diameter PLAX 3.1 cm IVS Diastolic Thickness 0.9 cm 0.6 - 1.0 / 0.6 - 0.9 cm IVS Systolic Thickness 1.2 cm LVPW Diastolic Thickness 0.9 cm 0.6 - 1.0 / 0.6 - 0.9 cm LVPW Systolic Thickness 1.1 cm LVOT Diameter 2.0 cm LV Ejection Fraction 2D Teich 54.7 % LA Diameter 4.0 cm Aorta at Sinotubular Diameter 2.3 cm M-MODE Aortic Annulus Diameter 3.2 cm LA Ao Ratio MM 1.3 DOPPLER AV Peak Velocity 202.0 cm/s LVOT Peak Velocity 111.0 cm/s AV Area Cont Eq vti 1.3 cm squared AV Area Cont Eq pk 1.8 cm squared MV Peak Velocity 238.0 cm/s MV Area PHT 5.0 cm squared Mitral E to A Ratio 4.7 MV E' Velocity 131.8 cm/s Mitral E to LV E' Lateral Ratio 30.9 TR Peak Velocity 290.0 cm/s TR Peak Gradient 33.6 mmHg TV Peak E Velocity 98.0 cm/s Right Atrial Pressure 3.0 mmHg Pulmonary Artery Systolic Pressu 36.6 mmHg PV Peak Velocity 124.0 cm/s RV Acceleration Time 0.1 s FINDINGS Left Ventricle Normal left ventricular cavity size, wall thickness and systolic function. Left ventricular ejection fraction is estimated at 55%. No diagnostic regional wall motion abnormality. Abnormal septal motion. Right Ventricle Normal right ventricular size and systolic function. Right ventricular systolic pressure 41 mmHg. Right Atrium Mildly increased right atrial size. Left Atrium Severely increased left atrial size. Mitral Valve Well seated and normally functioning mechanical prosthetic mitral valve. Prosthetic mitral valve mean gradient is 7 mmHg. No significant valvular or perivalvular regurgitation. Aortic Valve Mild aortic valve thickening and calcification. No aortic valve stenosis. No aortic valve regurgitation. Tricuspid Valve Structurally normal tricuspid valve. Mild to moderate tricuspid valve regurgitation. Pulmonic Valve Pulmonic valve not well visualized. Pericardium No pericardial effusion. Aorta Normal size aortic root and proximal ascending aorta. Normal sized inferior vena cava with decreased respiratory variation. CONCLUSIONS 1. Normal left ventricular cavity size, wall thickness and systolic function. Left ventricular ejection fraction is estimated at 55%. No diagnostic regional wall motion abnormality. Abnormal septal motion. 2. Severely increased left atrial size. 3. Pulmonary artery pressure estimated at 41 mm Hg. 4. When compared to previous echocardiogram dated 02/16/21, LV systolic function may have improved somewhat and pulmonary artery pressure has decreased. Tere Teixeira MD (Electronically Signed) Final Date: 05 December 2021 09:27 S
[2021-12-04] MEDS: enoxaparin 60 mg/0.6 mL Syringe SUBCUT ×2 (12:49→23:55)
--- NOTE | 2021-12-04 20:27 | P.PN_ITS ---
Subjective Subjective: Interval history: Gradually waking up more this morning afternoon. Family at bedside. Denies pain or discomfort. Falls asleep easily. Later on bothered by pruritus under right arm splint. Vitals/I&O/Wt Last Vital Signs Temp 98.2 F 12/04/21 16:00 Pulse 66 12/04/21 16:00 Resp 17 12/04/21 16:00 BP 111/72 12/04/21 16:00 Pulse Ox 96 12/04/21 16:00 12/04/21 12/04/21 12/04/21 06:59 14:59 22:59 Intake Total 1360 / 1360 360 / 1720 Output Total 1350 / 1350 Balance -1350 / -850 1360 / 1360 360 / 1720 Weight last 48 hrs Weight 61.235 kg Physical Exam Narrative: EXAM NARRATIVE: and daughter at bedside. Const: COMMON NORMALS: no acute distress and patient oriented x3 GENERAL APPEARANCE: frail appearing HENMT: COMMON NORMALS: oropharynx normal Eye: OTHER: Right side forehead and periorbital greenish/yellow bruise Neck/C-Spine: COMMON NORMALS: no JVD Resp: COMMON NORMALS: normal respiratory effort and clear to auscultation bilaterally AUSCULTATION: clear to auscultation bilaterally Cardio: COMMON NORMALS: no JVD, regular rhythm, S1 normal heart sound present, S2 normal heart sound present and No murmurs present (Cardio) RHYTHM: regular rhythm HEART SOUNDS: S1 normal heart sound present and S2 normal heart sound present GI: COMMON NORMALS: Normal to inspection, nondistended, normoactive bowel sounds present, Soft to palpation and non-tender PALPATION: Yes Soft to palpation Extremity: COMMON NORMALS: no joint enlargement and no pedal edema NARRATIVE EXTREMITY EXAM: Splint right forearm Neuro: COMMON NORMALS: patient oriented x3 and moves all extremities Skin: COMMON NORMALS: no rashes or lesions noted GENERAL SKIN EXAM: no rashes or lesions noted Urinary Catheter Management: Lam: Cath Placed During This Visit: yes Reason for Continuing Indwelling Catheter: Acute Urinary Retention or Obstruction Urinary Catheter Date of Insertion: 12/03/21 Urinary Catheter Time of Insertion: 21:00 Data : 12/04/21 06:16 12/04/21 06:16 Micro: Microbiology 12/03/21 20:05 Blood Culture - Preliminary Blood NEGATIVE TO DATE 12/03/21 20:07 Blood Culture - Preliminary Blood NEGATIVE TO DATE A&P Assessment and plan (1) Subtherapeutic anticoagulation: Was instructed to resume warfarin alongside Lovenox after discharge to [facility] a [facility] back. However, has not received Lovenox or warfarin over the past week. Anemic. However, with mechanical mitral valve. Discussed risk of resumption of anticoagulation with her and family. Resume Lovenox at this time. Therapeutic dose. Assess TTE. Monitor hemoglobin given acute on chronic anemia. Hold off on resuming warfarin just yet until see that hemoglobin is steady. Status: Acute (2) AMS (altered mental status): With improvement this morning, more alert, took medications. Later interacting with family. Acute metabolic encephalopathy with acute kidney injury Resume oral diet. Status: Acute (3) Acute on chronic anemia: Hemoccult requested. Follow-up. Resuming anticoagulation due to mechanical mitral valve. Monitor hemoglobin in the hospital Status: Acute (4) FRANCISCO (acute kidney injury): Showing improvement. Creatinine down to 1.5. Hold diuretics for now. Hold lisinopril. Status: Acute (5) Pulmonary hypertension: Status: Acute (6) Heart failure: Status: Acute Qualifiers: Heart failure type: diastolic Heart failure chronicity: chronic Quali fied Code(s): I50.32 - Chronic diastolic (congestive) heart failure (7) Restrictive lung disease: Status: Acute (8) H/O mitral valve replacement with mechanical valve: Resume at evaluation. Assess TTE. Status: Acute Attestations Medical Necessity Statement*: Continue admission for resumption of an ticoagulation with mechanical mitral valve for which has not receive anticoagulation in the past week, assessment of the valve, resumption of anticoagulation in monitored settings due to acute on chronic anemia, with recent intracranial hemorrhage, improving metabolic encephalopathy, FRANCISCO. Coding Level of Care Code Acute Ophthalmic Pathologist for [facility] Fwd Diagnoses AMS (altered mental status) R41.82 FRANCISCO (acute kidney injury) N17.9 Pulmonary hypertension I27.20 Heart failure I50.32 Heart failure type: diastolic Heart failure chronicity: chronic Restrictive lung disease J98.4 Subtherapeutic anticoagulation Z51.81; Z79.01 H/O mitral valve replacement with mechanical valve Z95.2 Acute on chronic anemia D64.9
[2021-12-04] MEDS: bacitracin ointment Pkt 1 EACH TOPICAL (20:56)
[2021-12-05] VITALS (14 sets, daily range): BP systolic 96–121; BP diastolic 46–75; PULSE 57–82; RESP 15–22; TEMP 36.7–37.5; O2SAT 93–99
[2021-12-05] MEDS: ipratropium-albuterol 3 mL Neb INHALATION ×4 (03:10→20:19)
[2021-12-05] MEDS: levothyroxine 50 mcg Tablet PO (05:50)
[2021-12-05 06:40] LABS: Basophils % 0.6 %; Eosinophils # 0.1 10^3/uL (0.0-0.8); Eosinophils % 3.6 %; Hematocrit 24.4 % (37.0-47.0); Hemoglobin 7.5 g/dL (11.5-15.3); Lymphocytes # 0.7 10^3/uL (0.8-4.8); Lymphocytes % 20.5 %; Mean Corpuscular HGB Conc 30.7 g/dL (30.0-36.0); Mean Corpuscular Hemoglobin 30.4 pg (28.0-34.0); Mean Corpuscular Volume 98.8 fl (81-99); Mean Platelet Volume 10.1 fL (7.4-10.4); Monocytes # 0.4 10^3/uL (0.2-0.9); Monocytes % 10.7 %; Neutrophils # 2.16 10^3/uL (1.8-7.7); Neutrophils % 64.3 %; Nucleated Red Blood Cells % 0 %; Platelet Count 232 10^3/cmm (130-400); Red Blood Count 2.47 10^6/uL (4.1-5.3); White Blood Count 3.4 10^3/uL (4.0-10.0)
[2021-12-05 07:27] LABS: Anion Gap 11.7 (5-19); Blood Urea Nitrogen 25 mg/dL (8-23); Carbon Dioxide 38 mmol/L (22-29); Chloride 101 mmol/L (98-107); Glucose 105 mg/dL (65-115); Osmolality Calculated 309 mOsm/kg (285-295); Potassium 3.7 mmol/L (3.5-5.1); Sodium 147 mmol/L (136-145)
[2021-12-05] MEDS: tolterodine 2 mg Tablet PO ×2 (08:51→21:21)
[2021-12-05] MEDS: isosorbide mononitrate ER 30 mg Tablet 15 MG PO ×2 (08:51→21:21)
[2021-12-05] MEDS: ferrous gluconate 324 mg Tablet PO ×2 (08:51→21:21)
[2021-12-05] MEDS: cholecalciferol (vitamin D3) 5,000 unit Tablet 5000 UNIT PO (08:51)
[2021-12-05] MEDS: pantoprazole DR 40 mg Tablet PO ×2 (08:51→21:21)
[2021-12-05] MEDS: carvedilol 6.25 mg Tablet PO ×2 (08:51→17:39)
[2021-12-05] MEDS: fluoxetine 10 mg Capsule PO (08:51)
[2021-12-05] MEDS: atorvastatin 40 mg Tablet PO (08:51)
[2021-12-05] MEDS: artificial tears Op Soln 15 mL Btl 1 DROP EYE-BOTH ×2 (12:38→20:45)
[2021-12-05] MEDS: enoxaparin 60 mg/0.6 mL Syringe SUBCUT (15:46)
[2021-12-05] MEDS: fluticasone nasal spray 16gm Btl 2 SPRAY NASAL (17:39)
--- NOTE | 2021-12-05 20:48 | P.PN_ITS ---
Subjective Subjective: Interval history: She overall reports she is doing better today. More awake and alert. Feeling stronger. Creatinine continues to improve. Discussed with her and family r egarding low hemoglobin, however, without further decrease in setting of initiation of anticoagulation. They request to start warfarin. Vitals/I&O/Wt Last Vital Signs Temp 99 F 12/05/21 20:00 Pulse 57 L 12/05/21 20:21 Resp 16 12/05/21 20:21 BP 121/75 12/05/21 20:00 Pulse Ox 99 12/05/21 20:21 12/05/21 12/05/21 12/05/21 06:59 14:59 22:59 Intake Total 80 / 2160 360 / 360 200 / 560 Output Total 1620 / 1620 Balance -1540 / 540 360 / 360 200 / 560 Physical Exam Narrative: EXAM NARRATIVE: and daughter at bedside. Const: COMMON NORMALS: no acute distress and patient oriented x3 GENERAL APPEARANCE: frail appearing HENMT: COMMON NORMALS: oropharynx normal Eye: OTHER: Right side forehead and periorbital greenish/yellow bruise Neck/C-Spine: COMMON NORMALS: no JVD Resp: COMMON NORMALS: normal respiratory effort and clear to auscultation bilaterally AUSCULTATION: clear to auscultation bilaterally Cardio: COMMON NORMALS: no JVD, regular rhythm, S1 normal heart sound present, S2 normal heart sound present and No murmurs present (Cardio) RHYTHM: regular rhythm HEART SOUNDS: S1 normal heart sound present and S2 normal heart sound present GI: COMMON NORMALS: Normal to inspection, nondistended, normoactive bowel sounds present, Soft to palpation and non-tender PALPATION: Yes Soft to palpation Extremity: COMMON NORMALS: no joint enlargement and no pedal edema NARRATIVE EXTREMITY EXAM: Splint right forearm Neuro: COMMON NORMALS: patient oriented x3 and moves all extremities Skin: COMMON NORMALS: no rashes or lesions noted GENERAL SKIN EXAM: no rashes or lesions noted Urinary Catheter Management: Lam: Cath Placed During This Visit: yes Reason for Continuing Indwelling Catheter: Acute Urinary Retention or Obstruction Urinary Catheter Date of Insertion: 12/03/21 Urinary Catheter Time of Insertion: 21:00 Data : 12/05/21 05:48 12/05/21 05:48 Micro: Microbiology 12/04/21 01:54 Urine Culture - Preliminary Urine Catheterized 12/03/21 20:05 Blood Culture - Preliminary Blood NEGATIVE TO DATE 12/03/21 20:07 Blood Culture - Preliminary Blood NEGATIVE TO DATE A&P Assessment and plan (1) Subtherapeutic anticoagulation: Tolerated initiation of anticoagulation with therapeutic Lovenox. Family requesting initiation of warfarin. Start warfarin tonight. Reassess hemoglobin in the morning. With mechanical mitral valve Target INR 2.5-3.5. Normally functioning valve on TTE. Was instructed to resume warfarin alongside Lovenox after discharge [facility]. However, has not received Lovenox or warfarin over the past week per family Anemic. However, with mechanical mitral valve. Discussed risk of resumption of anticoagulation with her and family. Resume Lovenox at this time. Therapeutic dose. Monitor hemoglobin given acute on chronic anemia. Hold off on resuming warfarin just yet until see that hemoglobin is steady. Status: Acute (2) AMS (altered mental status): Resolving. More alert, took medications. Later interacting with family. Acute metabolic encephalopathy with acute kidney injury Resume oral diet. Status: Acute (3) Acute on chronic anemia: Family reported bleeding with right forearm wound. Possibly because of recent acute on chronic anemia. So far tolerated initiation of therapeutic Lovenox. Reassess hemoglobin. Follow-up Hemoccult. Status: Acute (4) FRANCISCO (acute kidney injury): Continue to gradually improve. Diuretics and lisinopril on hold. Status: Acute (5) Pulmonary hypertension: Status: Acute (6) Heart failure: Status: Acute Qualifiers: Heart failure type: diastolic Heart failure chronicity: chronic Qualified Code(s): I50.32 - Chronic diastolic (congestive) heart failure (7) Restrictive lung disease: Status: Acute (8) H/O mitral valve replacement with mechanical valve: Anticoagulation resumed. Monitor hemoglobin. Normally functioning mechanical valve on TTE. Status: Acute Attestations Medical Necessity Statement*: Continue admission for initiation of anticoagulation due to mechanical mitral valve, in the setting of acute on chronic anemia. Coding Level of Care Code Acute Mud Analysis Supervisor for Norma Yeh Diagnoses Subtherapeutic anticoagulation Z51.81; Z79.01 AMS (altered mental status) R41.82 Acute on chronic anemia D64.9 FRANCISCO (acute kidney injury) N17.9 Pulmonary hypertension I27.20 Heart failure I50.32 Heart failure type: diastolic Heart failure chronicity: chronic Restrictive lung disease J98.4 H/O mitral valve replacement with mechanical valve Z95.2
[2021-12-05] MEDS: neomycin-poly-bacitracin oint 28 gm 1 APPLIC TOPICAL (21:20)
[2021-12-05 22:29] LABS: INR 1.19 (0.8-1.2)
[2021-12-05] MEDS: warfarin 3 mg Tablet PO (23:18)
[2021-12-06] VITALS (12 sets, daily range): BP systolic 112–124; BP diastolic 52–73; PULSE 58–78; RESP 16–24; TEMP 36.4–37.2; O2SAT 95–100
[2021-12-06] MEDS: enoxaparin 60 mg/0.6 mL Syringe SUBCUT ×2 (01:39→13:27)
[2021-12-06] MEDS: levothyroxine 50 mcg Tablet PO (05:07)
[2021-12-06 06:44] LABS: Basophils % 0.6 %; Eosinophils # 0.1 10^3/uL (0.0-0.8); Hemoglobin 7.6 g/dL (11.5-15.3); Lymphocytes # 0.8 10^3/uL (0.8-4.8); Lymphocytes % 23.2 %; Mean Corpuscular HGB Conc 30.4 g/dL (30.0-36.0); Mean Corpuscular Hemoglobin 29.7 pg (28.0-34.0); Mean Corpuscular Volume 97.7 fl (81-99); Mean Platelet Volume 10.2 fL (7.4-10.4); Monocytes # 0.4 10^3/uL (0.2-0.9); Monocytes % 10.7 %; Neutrophils # 2.01 10^3/uL (1.8-7.7); Neutrophils % 61.5 %; Nucleated Red Blood Cells % 0 %; Platelet Count 239 10^3/cmm (130-400); Red Blood Count 2.56 10^6/uL (4.1-5.3); Red Cell Distribution Width 14.6 % (12.1-15.1); White Blood Count 3.3 10^3/uL (4.0-10.0)
[2021-12-06 07:13] LABS: Anion Gap 11.5 (5-19); Blood Urea Nitrogen 16 mg/dL (8-23); Calcium 7.8 mg/dL (8.5-10.5); Carbon Dioxide 33 mmol/L (22-29); Chloride 102 mmol/L (98-107); Glucose 97 mg/dL (65-115); Osmolality Calculated 297 mOsm/kg (285-295); Potassium 3.5 mmol/L (3.5-5.1); Sodium 143 mmol/L (136-145)
[2021-12-06 07:14] LABS: Creatinine Clr Calc Pharmacy 32.2405
[2021-12-06] MEDS: ipratropium-albuterol 3 mL Neb INHALATION ×3 (08:29→19:52)
[2021-12-06] MEDS: tolterodine 2 mg Tablet PO ×2 (09:16→20:20)
[2021-12-06] MEDS: carvedilol 6.25 mg Tablet PO ×2 (09:16→17:43)
[2021-12-06] MEDS: ferrous gluconate 324 mg Tablet PO ×2 (09:16→20:16)
[2021-12-06] MEDS: isosorbide mononitrate ER 30 mg Tablet 15 MG PO ×2 (09:16→20:16)
[2021-12-06] MEDS: pantoprazole DR 40 mg Tablet PO ×2 (09:17→20:17)
[2021-12-06] MEDS: fluoxetine 10 mg Capsule PO (09:17)
[2021-12-06] MEDS: cholecalciferol (vitamin D3) 5,000 unit Tablet 5000 UNIT PO (09:17)
[2021-12-06] MEDS: atorvastatin 40 mg Tablet PO (09:17)
[2021-12-06] MEDS: neomycin-poly-bacitracin oint 28 gm 1 APPLIC TOPICAL (09:17)
[2021-12-06] MEDS: fluticasone nasal spray 16gm Btl 2 SPRAY NASAL ×2 (09:19→20:17)
--- NOTE | 2021-12-06 10:49 | PC.CHAP ---
Pastoral Care Encounter/Spiritual Assessment Type of Contact [] Declined photographer news visit [] Patient/Family/Request visit [] Outpatient visit [] Follow-up visit [] Physician referral [] Code/Alert [x] Routine visit [] Staff referral [] Actively dying [] Patient sleeping [] Family support [] [] Out of room [] Palliative care [] [x] Receiving care in room [] Pre-surgical visit [] Trauma [] Long length of stay [] ICU visit [] Other: Relational/Emotional Strength [] Patient feels connected with others/family/visitors/staff [] Distress [] Loneliness/isolation [] Abandonment Spirituality of Patient [] Person of Vivian [] Attends Alevism of their Vivian [] Believes in Prayer [] Reads Bible or Religion materials [] There are Spiritual issues to be addressed Instrument Lens Grinder Apprentice Interventions [] Prayer [] Active listening [] Non-anxious presence [] Spiritual/emotional support [] Crisis/trauma care [] Spiritual counseling [] Bereavement support [] Provided bereavement packet [] Provided Bible/devotional materials [] Provided toy/stuffed animal, coloring book to patient or family member [] Provided Communion [] Anointing/[place] [] Salvation [x] Completed spiritual assessment [] Other: Impact on Illness or Injury [] Angry [] Fearful [] Anxious [] Often cries [] Exhaustion [] Unable to work [] Unable to attend yazidism [] Unable to walk/stand [] Unable to read [] Unable to drive [] Unable to eat/drink [] Unable to sleep [] Unable to be with family [] Patient intubated [] Other: Summary Time spent with patient
[2021-12-06] MEDS: warfarin 3 mg Tablet PO (13:27)
--- NOTE | 2021-12-06 14:00 | P.PN_ITS ---
Subjective Subjective: no acute complaints, in good spirits, conversant. Hb stable at 7.5. no bleeding at any site. Vitals/I&O/Wt Last Vital Signs Temp 97.5 F L 12/06/21 20:00 Pulse 58 L 12/06/21 22:00 Resp 18 12/06/21 20:00 BP 115/65 12/06/21 20:00 Pulse Ox 99 12/06/21 20:00 12/06/21 12/06/21 12/07/21 14:59 22:59 06:59 Intake Total 600 / 600 240 / 840 Balance 600 / 600 240 / 840 Physical Exam Urinary Catheter Management: Lam: Cath Placed During This Visit: yes Reason for Continuing Indwelling Catheter: Other Urinary Catheter Date of Insertion: 12/03/21 Urinary Catheter Time of Insertion: 21:00 Data : 12/06/21 05:32 12/06/21 05:32 Micro: Microbiology 12/04/21 01:54 Urine Culture - Final Urine Catheterized A&P Assessment and plan (1) Subtherapeutic anticoagulation: Tolerated initiation of anticoagulation with therapeutic Lovenox. Started warfarin additionally. Reassess hemoglobin and INR in the morning. With mechanical mitral valve Target INR 2.5-3.5. Normally functioning valve on TTE. Was instructed to resume warfarin alongside Lovenox after recent discharge to [facility] a week back. However, has not received Lovenox or warfarin over the past week per family Monitor hemoglobin given acute on chronic anemia. No signs of bleeding at any site Status: Acute (2) AMS (altered mental status): Resolving. More alert, took medications. Later interacting with family. Acute metabolic encephalopathy with acute kidney injury Resume oral diet. Status: Acute (3) Acute on chronic anemia: Status: Acute (4) FRANCISCO (acute kidney injury): Continue to gradually improve. Diuretics and lisinopril on hold. Status: Acute (5) Pulmonary hypertension: Status: Acute (6) Heart failure: Status: Acute Qualifiers: Heart failure type: diastolic Heart failure chronicity: chronic Qualified Code(s): I50.32 - Chronic diastolic (congestive) heart failure (7) Restrictive lung disease: Status: Acute (8) H/O mitral valve replacement with mechanical valve: Anticoagulation resumed. Monitor hemoglobin. Normally functioning mechanical valve on TTE. Status: Acute Plan recent fall at [facility], admission at [place] with reported facial fracture, right forearm fracture, extremity is currently splinted. Attestations Medical Necessity Statement*: overlap therapy with lovenox and coumadin, closely monitor Hb , any signs of bleeding Coding Level of Care Code Acute Home Service Consultant for [facility] Fwd Diagnoses Subtherapeutic anticoagulation Z51.81; Z79.01 AMS (altered mental status) R41.82 Acute on chronic anemia D64.9 FRANCISCO (acute kidney injury) N17.9 Pulmonary hypertension I27.20 Heart failure I50.32 Heart failure type: diastolic Heart failure chronicity: chronic Restrictive lung disease J98.4 H/O mitral valve replacement with mechanical valve Z95.2
--- NOTE | 2021-12-06 20:45 | PC.NURSE ---
i reported low temp 97.5 to nurse
[2021-12-07] VITALS (12 sets, daily range): BP systolic 112–126; BP diastolic 62–72; PULSE 60–87; RESP 16–32; TEMP 36.5–37; O2SAT 95–99
[2021-12-07] MEDS: ipratropium-albuterol 3 mL Neb INHALATION ×4 (02:24→21:20)
[2021-12-07] MEDS: levothyroxine 50 mcg Tablet PO (05:46)
[2021-12-07 06:07] LABS: Basophils % 0.3 %; Eosinophils # 0.2 10^3/uL (0.0-0.8); Eosinophils % 4.6 %; Hematocrit 25.9 % (37.0-47.0); Hemoglobin 7.8 g/dL (11.5-15.3); Lymphocytes # 0.7 10^3/uL (0.8-4.8); Lymphocytes % 19.7 %; Mean Corpuscular HGB Conc 30.1 g/dL (30.0-36.0); Mean Corpuscular Hemoglobin 29.3 pg (28.0-34.0); Mean Corpuscular Volume 97.4 fl (81-99); Mean Platelet Volume 10.1 fL (7.4-10.4); Monocytes # 0.3 10^3/uL (0.2-0.9); Monocytes % 9.7 %; Neutrophils # 2.29 10^3/uL (1.8-7.7); Neutrophils % 65.1 %; Nucleated Red Blood Cells % 0 %; Platelet Count 237 10^3/cmm (130-400); Red Blood Count 2.66 10^6/uL (4.1-5.3); Red Cell Distribution Width 14.6 % (12.1-15.1); White Blood Count 3.5 10^3/uL (4.0-10.0)
[2021-12-07 06:14] LABS: INR 1.18 (0.8-1.2)
[2021-12-07 06:36] LABS: Alanine Aminotransferase < 5 U/L (0-33); Albumin Level 3.1 g/dL (3.5-5.2); Alkaline Phosphatase 91 IU/L (35-105); Anion Gap 10.4 (5-19); Aspartate Amino Transferase 12 U/L (0-32); Blood Urea Nitrogen 13 mg/dL (8-23); Calcium 7.9 mg/dL (8.5-10.5); Carbon Dioxide 35 mmol/L (22-29); Chloride 99 mmol/L (98-107); Globulin 2.2 g/dL (1.3-4.6); Glucose 110 mg/dL (65-115); Osmolality Calculated 293 mOsm/kg (285-295); Potassium 3.4 mmol/L (3.5-5.1); Sodium 141 mmol/L (136-145); Total Bilirubin 0.7 mg/dL (0.15-1.2); Total Protein 5.3 g/dL (6.6-8.7)
[2021-12-07] MEDS: fluticasone nasal spray 16gm Btl 2 SPRAY NASAL ×2 (08:36→17:14)
[2021-12-07] MEDS: atorvastatin 40 mg Tablet PO (08:36)
[2021-12-07] MEDS: fluoxetine 10 mg Capsule PO (08:36)
[2021-12-07] MEDS: cholecalciferol (vitamin D3) 5,000 unit Tablet 5000 UNIT PO (08:36)
[2021-12-07] MEDS: carvedilol 6.25 mg Tablet PO ×2 (08:36→17:14)
[2021-12-07] MEDS: neomycin-poly-bacitracin oint 28 gm 1 APPLIC TOPICAL (08:38)
[2021-12-07] MEDS: tolterodine 2 mg Tablet PO ×2 (08:46→19:18)
[2021-12-07] MEDS: ferrous gluconate 324 mg Tablet PO ×2 (08:46→19:18)
[2021-12-07] MEDS: pantoprazole DR 40 mg Tablet PO ×2 (08:46→19:17)
[2021-12-07] MEDS: isosorbide mononitrate ER 30 mg Tablet 15 MG PO ×2 (08:47→19:17)
--- NOTE | 2021-12-07 09:45 | PC.SOCIAL ---
IMM UPDATED IMM dated and initialed and copy given to patient.
[2021-12-07] MEDS: enoxaparin 60 mg/0.6 mL Syringe SUBCUT ×2 (12:28)
[2021-12-07] MEDS: warfarin 3 mg Tablet PO (15:21)
--- NOTE | 2021-12-07 18:29 | P.PN_ITS ---
Subjective Subjective: Hemoglobin stable at 7.8. INR at 1.18. Per daughter at bedside patient was more confused when she came in this morning. At this present time patient is alert awake. Does not wish to participate in conversation, however able to when pressed to reply to queries etc. No overt signs of bleeding at this time. Vitals/I&O/Wt Last Vital Signs Temp 98.6 F 12/07/21 16:00 Pulse 64 12/07/21 16:00 Resp 16 12/07/21 16:00 BP 115/69 12/07/21 16:00 Pulse Ox 97 12/07/21 16:00 12/07/21 12/07/21 12/07/21 06:59 14:59 22:59 Intake Total 200 / 1040 Output Total 400 / 400 500 / 500 Balance -200 / 640 -500 / -500 Physical Exam Narrative: GEN: Awake, alert and oriented, no acute distress CVS: S1S2 N RS: CTA B/L Abd: Soft, nt/nd , bs+ OPTIMIZATION CONSULTANT: no focal neuro deficits Urinary Catheter Management: Lam: Cath Placed During This Visit: yes, but has since been removed by the nurse Reason for Continuing Indwelling Catheter: Not indwelling catheter Urinary Catheter Date of Insertion: 12/03/21 Urinary Catheter Time of Insertion: 21:00 Date Urinary Catheter Removed: 12/07/21 Time Urinary Catheter Discontinued: 15:30 Data : 12/07/21 04:59 12/07/21 04:59 A&P Assessment and plan (1) Subtherapeutic anticoagulation: Tolerated initiation of anticoagulation with therapeutic Lovenox. Started warfarin additionally overlapping with Lovenox on December 05, 2021.. Reassess hemoglobin and INR in the morning. With mechanical mitral valve Target INR 2.5-3.5. Recent history of subarachnoid bleeding after a fall in October 2021. Was admitted at [facility]. Did not require any neurosurgical intervention at that time. CT head on December 03 without any acute intracranial abnormality. No mass-effect or residual swelling. Was instructed to start anticoagulation once discharged to SNF 1 week ago, however uncertain if this happened. Normally functioning valve on TTE. Discussed extensively with daughter at bedside the risk-benefit ratio of resuming anticoagulation. Family has a good understanding of the same. Lack of anticoagulation comes with high risk of stroke mechanical valve, risk of CVA etc. Resuming anticoagulation may potentially increase the risk of bleeding. Understanding all the risks and benefits elected to proceed with resuming anticoagulation. Monitor hemoglobin given acute on chronic anemia. No signs of bleeding at any site. Patient's mental status has improved during the course of admission, though daughter reports still with intermittent confusion. However this appears to be close to her baseline. Status: Acute (2) AMS (altered mental status): Resolving. More alert, took medications. Later interacting with family. Acute metabolic encephalopathy with acute kidney injury, now much improved. Resume oral diet. Status: Acute (3) Acute on chronic anemia: Continue iron supplementation Status: Acute (4) FRANCISCO (acute kidney injury): Continue to gradually improve. Diuretics and lisinopril on hold. Status: Acute (5) Pulmonary hypertension: Status: Acute (6) Heart failure: Status: Acute Qualifiers: Heart failure type: diastolic Heart failure chronicity: chronic Qualified Code(s): I50.32 - Chronic diastolic (congestive) heart failure (7) Restrictive lung disease: Status: Acute (8) H/O mitral valve replacement with mechanical valve: Anticoagulation resumed. Monitor hemoglobin. Normally functioning mechanical valve on TTE. Status: Acute Plan Attestations Medical Necessity Statement*: Overlapping of full dose anticoagulation with resumption of Coumadin. Check hemoglobin and INR in the morning. Likely discharge in the upcoming 24 hours. Coding Level of Care Code Acute Legal Administrative Assistant for [employer] Fwd Diagnoses Subtherapeutic anticoagulation Z51.81; Z79.01 AMS (altered mental status) R41.82 Acute on chronic anemia D64.9 FRANCISCO (acute kidney injury) N17.9 Pulmonary hypertension I27.20 Heart failure I50.32 Heart failure type: diastolic Heart failure chronicity: chronic Restrictive lung disease J98.4 H/O mitral valve replacement with mechanical valve Z95.2
[2021-12-07] MEDS: potassium chloride ER 20 mEq Tablet PO (19:17)
[2021-12-08] VITALS (9 sets, daily range): BP systolic 109–178; BP diastolic 67–73; PULSE 63–100; RESP 16–36; TEMP 36.9–37.6; O2SAT 94–100
[2021-12-08] MEDS: enoxaparin 60 mg/0.6 mL Syringe SUBCUT ×2 (00:17→13:25)
[2021-12-08] MEDS: ipratropium-albuterol 3 mL Neb INHALATION ×2 (02:30→08:20)
[2021-12-08] MEDS: levothyroxine 50 mcg Tablet PO (05:27)
[2021-12-08 05:52] LABS: Basophils % 0.2 %; Eosinophils # 0.2 10^3/uL (0.0-0.8); Eosinophils % 3.2 %; Hematocrit 26.7 % (37.0-47.0); Hemoglobin 7.9 g/dL (11.5-15.3); Lymphocytes # 0.7 10^3/uL (0.8-4.8); Lymphocytes % 15.2 %; Mean Corpuscular HGB Conc 29.6 g/dL (30.0-36.0); Mean Corpuscular Volume 98.2 fl (81-99); Monocytes # 0.4 10^3/uL (0.2-0.9); Neutrophils # 3.47 10^3/uL (1.8-7.7); Nucleated Red Blood Cells % 0 %; Platelet Count 241 10^3/cmm (130-400); Red Blood Count 2.72 10^6/uL (4.1-5.3); Red Cell Distribution Width 14.6 % (12.1-15.1); White Blood Count 4.8 10^3/uL (4.0-10.0)
[2021-12-08 06:01] LABS: INR 1.29 (0.8-1.2)
[2021-12-08] MEDS: cholecalciferol (vitamin D3) 5,000 unit Tablet 5000 UNIT PO (10:42)
[2021-12-08] MEDS: atorvastatin 40 mg Tablet PO (10:43)
[2021-12-08] MEDS: fluoxetine 10 mg Capsule PO (10:43)
[2021-12-08] MEDS: carvedilol 6.25 mg Tablet PO (10:43)
[2021-12-08] MEDS: ferrous gluconate 324 mg Tablet PO (10:47)
[2021-12-08] MEDS: isosorbide mononitrate ER 30 mg Tablet 15 MG PO (10:47)
[2021-12-08] MEDS: neomycin-poly-bacitracin oint 28 gm 1 APPLIC TOPICAL (10:48)
[2021-12-08] MEDS: tolterodine 2 mg Tablet PO (10:52)
[2021-12-08] MEDS: pantoprazole DR 40 mg Tablet PO (10:52)
[2021-12-08 12:56] LABS: SARS Covid-2 Antigen Negative (Negative)
[2021-12-08] MEDS: warfarin 3 mg Tablet PO (13:30)
--- NOTE | 2021-12-08 13:30 | P.DS_ITS ---
Discharge Providers Date of Admission: 12/04/21 01:12 Date of Discharge: December 08, 2021 Attending Provider at Admission: Serg Perales MD Attending Provider at Discharge: Hellen Gallo MD Primary Care Provider: Michael Hampton DO Diagnoses at Discharge Discharge Diagnosis (1) Subtherapeutic anticoagulation: Status: Acute (2) AMS (altered mental status): Status: Acute (3) Acute on chronic anemia: Status: Acute (4) FRANCISCO (acute kidney injury): Status: Acute (5) Pulmonary hypertension: Status: Acute (6) Heart failure: Status: Acute Qualifiers: Heart failure chronicity: chronic Heart failure type: diastolic Qualified Code(s): I50.32 - Chronic diastolic (congestive) heart failure (7) Restrictive lung disease: Status: Acute (8) H/O mitral valve replacement with mechanical valve: Status: Acute Reason for Visit Reason for Visit: AMS Hospital Course Hospital Course Ms. Kirk is an 81-year-old lady with a past medical history of restrictive lung disease, chronic hypercapnic respiratory failure, on trilogy at home, pu lmonary hypertension, preserved ejection fraction heart failure, A. fib, mechanical mitral valve, recent history of posttraumatic subarachnoid hemorrhage which was treated at [facility] in [place] in October 2021. She has residual right forearm fractures for which she is currently in a splint and also described a history of orbital and facial fractures during that admission. She was brought to the hospital on December 03, 2021 after being at residential facility for a week after her [facility] discharge for altered mental status and lethargy. CT head without contrast did not show any acute intracranial pathology including any bleeding. Chest x-ray was negative for any pleural effusion vascular congestion or pneumothorax or infiltrates. ABG was well compensated 7.47 PCO2 56, PO2 133, FiO2 28%. She did however have an acute kidney injury with creatinine up to 2.0. During the course of admission her diuretics and lisinopril were held as patient appeared to be dehydrated. She did receive gentle IV hydration initially during course of admission. Her creatinine is now improved to 0.9 at discharge. After her last hospital admission at [facility], it appears instructions had been given to resume warfarin, however per family this did not happen. Her INR was subtherapeutic upon admission. Anticoagulation was carefully resumed during this admission with Lovenox 1 mg/kg every 12 hours and after ensuring that her hemoglobin remained stable, overlap with warfarin was started. She does have acute on chronic anemia, hemoglobin remained stable between 7.5- 7.8 during course of admission. Risks and benefit of resuming anticoagulation including risk of rebleeding were discussed with patient's family at bedside. They understand that lack of anticoagulation comes with the risk of stroke, stuck mechanical valve etc. while resuming anticoagulation comes with risk of rebleeding. Weighing risk-benefit, anticoagulation was resumed. Patient will return to SNF upon discharge. Patient is being discharged to intermediate currently with overlapping anticoagulation. She is currently on Lovenox 1 mg/kg every 12 hours and warfarin. With overlapping anticoagulation goal is to continue Lovenox until INR reaches a level of 2. Once this level is achieved, Lovenox should be discontinued and only warfarin continued. Target INR to be achieved is 2.5-3.5 for mechanical heart valve. Please check INR daily until therapeutic INR of 2.5-3.5 is achieved. Discontinue Lovenox when INR is at 2. She is being discharged today in stable condition. Physical Exam Narrative: GEN: Awake, alert and oriented, no acute distress CVS: S1S2 N RS: CTA B/L Abd: Soft, nt/nd , bs+ [employer]: no focal neuro deficits Urinary Catheter Management: Lam: Cath Placed During This Visit: yes, but has since been removed by the nurse Reason for Continuing Indwelling Catheter: Not indwelling catheter Urinary Catheter Date of Insertion: 12/03/21 Urinary Catheter Time of Insertion: 21:00 Date Urinary Catheter Removed: 12/07/21 Time Urinary Catheter Discontinued: 15:30 Discharge Data Studies Completed and Pending Completed Studies During Hospitalization Category Date Time Status CT head wo con* [id number] Urgent Cat Scan 12/03/21 18:35 Completed XR chest 1V portable [id number] Urgent Exams 12/03/21 18:35 Completed CV. echo complete* [id number] Routine Ultrasound 12/04/21 12:44 Completed Pending at discharge Category Date Time Status Blood Culture Stat Lab 12/03/21 20:05 Results Fecal Occult Blood [Immunochemical Fecal OCB] Routine Lab 12/04/21 00:57 Uncollected Radiology Impressions Chest X-Ray 12/03/21 18:35 IMPRESSION: No acute findings. Head CT 12/03/21 18:35 IMPRESSION: 1. No acute intracranial abnormality. 2. Bilateral mastoid effusion, greater on the left. Laboratory Results WBC 4.8 10^3/uL (4.0-10.0) 12/08/21 05:08 RBC 2.72 10^6/uL (4.1-5.3) L 12/08/21 05:08 Hgb 7.9 g/dL (11.5-15.3) L 12/08/21 05:08 Hct 26.7 % (37.0-47.0) L 12/08/21 05:08 MCV 98.2 fl (81-99) 12/08/21 05:08 MCH 29.0 pg (28.0-34.0) 12/08/21 05:08 MCHC 29.6 g/dL (30.0-36.0) L 12/08/21 05:08 RDW 14.6 % (12.1-15.1) 12/08/21 05:08 Plt Count 241 10^3/cmm (130-400) 12/08/21 05:08 MPV 10.0 fL (7.4-10.4) 12/08/21 05:08 Neut % (Auto) 73.0 % 12/08/21 05:08 Lymph % (Auto) 15.2 % 12/08/21 05:08 [place] % (Auto) 8.0 % 12/08/21 05:08 Eos % (Auto) 3.2 % 12/08/21 05:08 Baso % (Auto) 0.2 % 12/08/21 05:08 Neut # (Auto) 3.47 10^3/uL (1.8-7.7) 12/08/21 05:08 Lymph # (Auto) 0.7 10^3/uL (0.8-4.8) L 12/08/21 05:08 [place] # (Auto) 0.4 10^3/uL (0.2-0.9) 12/08/21 05:08 Eos # (Auto) 0.2 10^3/uL (0.0-0.8) 12/08/21 05:08 Baso # (Auto) 0.0 10^3/uL (0.0-0.1) 12/08/21 05:08 Nucleated RBC % (auto) 0 % 12/08/21 05:08 Nucleated RBCs # 0.0 /100WBC 12/08/21 05:08 PT 16.40 SECONDS (12.1-14.9) H 12/08/21 05:08 INR 1.29 (0.8-1.2) H 12/08/21 05:08 Specimen Type Arterial 12/03/21 19:18 Sample Site Brachial, left 12/03/21 19:18 ABG pH 7.47 (7.35-7.45) H 12/03/21 19:18 ABG pCO2 56.4 mmHg (35-45) H 12/03/21 19:18 ABG pO2 133.0 mmHg (80.0-100.0) H 12/03/21 19:18 ABG HCO3 40.9 mmol/L (22-26) H 12/03/21 19:18 ABG Base Excess 15.4 mmol/L (-2.0-2.0) H 12/03/21 19:18 César Test Pos 12/03/21 19:18 Hematocrit 26.8 % (37-47) L 12/03/21 19:18 O2 Delivery Device Nc 12/03/21 19:18 O2 Liters/Min 2.0 % 12/03/21 19:18 FiO2 28.0 % 12/03/21 19:18 Food And Drug Research Scientist ID Cak 12/03/21 19:18 Sodium 141 mmol/L (136-145) 12/07/21 04:59 Potassium 3.4 mmol/L (3.5-5.1) L 12/07/21 04:59 Chloride 99 mmol/L (98-107) 12/07/21 04:59 Carbon Dioxide 35 mmol/L (22-29) H 12/07/21 04:59 Anion Gap 10.4 (5-19) 12/07/21 04:59 BUN 13 mg/dL (8-23) 12/07/21 04:59 Creatinine 0.9 mg/dL (0.5-0.9) 12/07/21 04:59 GFR Calculation Not Reportable 12/07/21 04:59 Glucose 110 mg/dL (65-115) 12/07/21 04:59 POC Glucose 91 mg/dL (70-110) 12/03/21 21:17 Calculated Osmolality 293 mOsm/kg (285-295) 12/07/21 04:59 Calcium 7.9 mg/dL (8.5-10.5) L 12/07/21 04:59 Magnesium 2.2 mg/dL (1.7-2.3) 12/04/21 06:16 Total Bilirubin 0.7 mg/dL (0.15-1.2) 12/07/21 04:59 AST 12 U/L (0-32) 12/07/21 04:59 ALT < 5 U/L (0-33) 12/07/21 04:59 Alkaline Phosphatase 91 IU/L (35-105) 12/07/21 04:59 Troponin T Baseline 50 ng/L (0-10) H 12/03/21 18:38 Troponin T 120 Minute 45.04 ng/L (0-10) H 12/03/21 20:07 Delta Troponin T -4.96 ABS# (0-10) L 12/03/21 20:07 Troponin T Hi Sens 6Hr 42.04 ng/L (0-10) H 12/04/21 00:32 Troponin T Hi Sens 6Hr Delta -7.96 ng/L (0-12) L 12/04/21 00:32 NT-Pro-B Natriuret Pep 1181 pg/mL (0-450) H 12/04/21 06:16 Total Protein 5.3 g/dL (6.6-8.7) L 12/07/21 04:59 Albumin 3.1 g/dL (3.5-5.2) L 12/07/21 04:59 Globulin 2.2 g/dL (1.3-4.6) 12/07/21 04:59 Procalcitonin 0.07 ng/mL (0-0.5) 12/03/21 18:38 Urine Color Yellow (Yellow) 12/04/21 01:54 Urine Appearance Clear (CLEAR) 12/04/21 01:54 Urine pH 7 (5-7) 12/04/21 01:54 Ur Specific [place] 1.005 (1.005-1.030) 12/04/21 01:54 Urine Protein Neg (Negative) 12/04/21 01:54 Urine Glucose (UA) Norm (Normal) 12/04/21 01:54 Urine Ketones Negative (Negative) 12/04/21 01:54 Urine Blood Neg (Negative) 12/04/21 01:54 Urine Nitrate Negative (Negative) 12/04/21 01:54 Urine Bilirubin Neg (Negative) 12/04/21 01:54 Urine Urobilinogen Norm mg/dL (Negative) 12/04/21 01:54 Ur Leukocyte Esterase Negative (Negative) 12/04/21 01:54 SARS-CoV-2 Ag (Rapid) Negative (Negative) 12/08/21 11:55 Vitals Last Vital Signs Temp 98.7 F 12/08/21 12:00 Pulse 86 12/08/21 12:00 Resp 16 12/08/21 12:00 BP 178/71 12/08/21 12:00 Pulse Ox 100 12/08/21 12:00 Discharge Plan Discharge Patient Disposition: Xfer [facility] Condition: Stable Prescriptions: New enoxaparin 60 mg/0.6 mL Syringe 60 mg SUBCUT Q12H 10 Days Qty: 12 0RF Continued fluoxetine 10 mg capsule 10 mg PO DAILY@09 0RF tolterodine 2 mg tablet 2 mg PO BID@, 0RF lisinopril 2.5 mg tablet 2.5 mg PO DAILY Qty: 30 6RF nitroglycerin 0.4 mg Tablet, Sublingual 0.4 mg SUBLINGUAL Q5M PRN (Reason: Chest Pain) 0RF rosuvastatin 10 mg tablet 10 mg PO DAILY@2100 0RF fluticasone propion-salmeterol [Advair Diskus] 250-50 mcg/dose blister with d evice 1 inh inhalation BID@0900,2100 0RF polyethylene glycol 3350 [Miralax] 17 gram powder in packet 17 g PO DAILY PRN (Reason: Constipation) 0RF albuterol sulfate 90 mcg/actuation Hfa Aerosol Inhaler 2 inh INHALATION Q6H PRN (Reason: Shortness Of Breath) 0RF nystatin [Nystop] 100,000 unit/gram Powder 1 applic topical BID PRN (Reason: rash) Qty: 60 0RF acetaminophen [Tylenol] 325 mg Tablet 325 - 650 mg PO Q4H PRN (Reason: Pain) 0RF levothyroxine 50 mcg tablet 50 mcg PO QAM 0RF carvedilol 6.25 mg tablet 6.25 mg PO BID 0RF warfarin 3 mg Tablet See Rx Instructions mg .ROUTE .COMPLEX 0RF Protocol: Dose Management Condition: Monday Dose/Route: 3 mg Instruction: 1 x 3 mg tablet Condition: Monday Dose/Route: 3 mg Instruction: 1 x 3 mg tablet Condition: Monday Dose/Route: 3 mg Instruction: 1 x 3 mg tablet Condition: Monday Dose/Route: 3 mg Instruction: 1 x 3 mg tablet Condition: Dose/Route: 3 mg Instruction: 1 x 3 mg tablet Condition: Monday Dose/Route: 3 mg Instruction: 1 x 3 mg tablet Condition: Monday Dose/Route: 3 mg Instruction: 1 x 3 mg tablet Protocol Text: Adjustment Start Date: Monday11/17/21 INR Value: 3.7 INR Date: 11/15/21 Recheck Date: 11/24/21 Rx Instructions: 3mg po daily@15:30 on mon,,mon,sat and sun 4mg po daily@15:30 on mon carbidopa-levodopa 10-100 mg tablet 1 tab PO TID 0RF cholecalciferol (vitamin D3) [Vitamin D3] 125 mcg (5,000 unit) Tablet 125 mcg PO DAILY 0RF albuterol sulfate [Ventolin HFA] 90 mcg/actuation HFA aerosol inhaler 1 inh inhalation Q6H PRN (Reason: shortness of breath or wheezing) Qty: 8.5 0RF potassium chloride [Klor-Con 10] 10 mEq tablet extended release 20 meq PO BID@, 0RF ferrous gluconate 324 mg (37.5 mg iron) tablet 324 mg PO BID@ 0RF sennosides-docusate sodium 8.6-50 mg tablet 1 tab PO BID 0RF pantoprazole 40 mg tablet,delayed release (DR/EC) 40 mg PO BID@0900,2100 0RF aspirin 81 mg Tablet,Delayed Release (Dr/Ec) 81 mg PO DAILY 0RF Changed isosorbide mononitrate 30 mg Tablet Extended Release 24 Hr 15 mg PO DAILY Qty: 0 0RF Held bumetanide 2 mg tablet 2 mg PO DAILY 0RF Hold Instructions: Resume on 12/15/21. follow up with cardiology prior to resuming. furosemide 80 mg Tablet 80 mg PO BID 0RF Hold Instructions: Resume on 12/15/21. Discontinued metoprolol tartrate 25 mg Tablet 12.5 mg PO BID 0RF verapamil 180 mg Tablet Extended Release 24hr 180 mg PO DAILY 0RF Discharge Orders: Discharge Order (Routine); Ordered 12/08/21 Ordered By: Hellen Gallo Referrals: Surinder Mays MD [Physician] - 12/15/21 12:45 pm Michael Hampton DO [Primary Care Provider] - Discharge Diet: Usual diet Discharge Activity: Resume usual activity Activity Restrictions/Additional Instructions: Patient is being discharged to intermediate currently with overlapping anticoagulation. She is currently on Lovenox 1 mg/kg every 12 hours and warfarin. With overlapping anticoagulation goal is to continue Lovenox as above until INR reaches a level of 2. Once this level is achieved, Lovenox should be discontinued and only warfarin continued. Target INR to be achieved is 2.5-3.5 for mechanical heart valve. Please check INR daily until therapeutic INR of 2.5-3.5 is achieved. Discontinue Lovenox when INR is at 2. Patient has known restrictive lung disease and is very prone to hypercapnic respiratory failure leading to altered mental status. She uses BiPAP daily at nighttime. Please continue the same. She had signs of dehydration and FRANCISCO when she came in and therefore diuretics including Bumex and Lasix have been held at discharge. She briefly received supplementation with IV fluids. Diuretics remained on hold during the hospital admission. This will likely need to be reassessed frequently by intermediate physician once patient transitions back to SNF. Other medications that remained on hold included verapamil, patient's heart rate remained well controlled. Dose of Imdur was reduced from 30 mg twice daily to 15 mg twice daily due to borderline blood pressures. This may be titrated back up to 30 mg twice daily if blood pressure permits. Additionally review of home medications showed that patient is both on carvedilol and metoprolol, of these metoprolol was held and carvedilol continued. Heart rate has ranged between 60- 80 during course of admission. Please follow-up with [facility] in 1 week. Discharge Attestations Time Spent in Discharge Care*: greater than 30 min Status at Discharge: Cognitive status at discharge: cognitively intact , Behavioral status at discharge: cooperative , Quality Metrics Clinical Quality Measures [ No reported AMI, CVA or VTE this stay] Coding Level of Care Code Acute Chg FW DC note Diagnoses Subtherapeutic anticoagulation Z51.81; Z79.01 AMS (altered mental status) R41.82 Acute on chronic anemia D64.9 FRANCISCO (acute kidney injury) N17.9 Pulmonary hypertension I27.20 Heart failure I50.32 Heart failure chronicity: chronic Heart failure type: diastolic Restrictive lung disease J98.4 H/O mitral valve replacement with mechanical valve Z95.2
== END 2021-12-08 14:00 | disposition skilled nursing facility (03) | DRG 682 ==
LOC: ER 22:41 → MEDSURG 12-04 01:35
PROVIDERS: Internal Medicine; Admitting Provider Internal Medicine; Emergency Provider Emergency Medicine; PCP Family Medicine; Visit Provider Student in an Organized Health Care Education/Training Program
DX: N17.9 Acute kidney failure, unspecified (principal); G93.41 Metabolic encephalopathy; I50.32 Chronic diastolic (congestive) heart failure; J96.12 Chronic respiratory failure with hypercapnia; J96.11 Chronic respiratory failure with hypoxia; I11.0 Hypertensive heart disease with heart failure; E78.5 Hyperlipidemia, unspecified; I48.91 Unspecified atrial fibrillation; Z95.2 Presence of prosthetic heart valve; J44.9 Chronic obstructive pulmonary disease, unspecified; D50.9 Iron deficiency anemia, unspecified; I25.10 Atherosclerotic heart disease of native coronary artery without angina pectoris; F32.A Depression, unspecified; K21.9 Gastro-esophageal reflux disease without esophagitis; E03.9 Hypothyroidism, unspecified; G47.33 Obstructive sleep apnea (adult) (pediatric); G20 Parkinson's disease; I27.20 Pulmonary hypertension, unspecified; Z96.652 Presence of left artificial knee joint; Z87.891 Personal history of nicotine dependence; Z79.82 Long term (current) use of aspirin; Z79.01 Long term (current) use of anticoagulants; Z79.51 Long term (current) use of inhaled steroids; Z99.89 Dependence on other enabling machines and devices; E86.0 Dehydration
CPT/HCPCS: 36415; 36416; 36600; 51702; 70450; 71045; 80048; 80053; 81003; 82803; 82962; 83735; 83880; 84145; 84484; 85025; 85610; 87040; 87086; 87426; 93005; 93306; 94640; 94660; 96360; 96361; 96372; 99285; J1650; J7030; J7040

== ENCOUNTER 2021-12-09 10:49 | Outpatient (CLI) | payer OTHER, SELFPAY ==
[2021-12-09 11:24] LABS: INR 1.64 (0.83-1.21); Prothrombin Time (Patient) 19.8 Seconds (12.0-15.1)
== END 2021-12-09 10:50 | disposition home or self-care (01) ==
LOC: LAB 10:52
PROVIDERS: Internal Medicine Cardiovascular Disease; PCP Family Medicine; Visit Provider Nurse Practitioner Family
DX: I48.11 Longstanding persistent atrial fibrillation (principal)
CPT/HCPCS: 85610

== ENCOUNTER 2021-12-11 09:57 | Outpatient (CLI) | payer MEDICARE, MEDICAID, SELFPAY ==
[2021-12-11 13:29] LABS: INR 2.34 (0.8-1.2)
== END 2021-12-11 09:58 | disposition home or self-care (01) ==
LOC: LAB 10:01
PROVIDERS: PCP Family Medicine; Visit Provider Nurse Practitioner Family
DX: T82.09XA Other mechanical complication of heart valve prosthesis, initial encounter (principal)
CPT/HCPCS: 85610

== ENCOUNTER 2021-12-15 15:39 | Outpatient (CLI) | payer OTHER, MEDICAID, SELFPAY | END 2021-12-15 15:40 | disposition home or self-care (01) | LOC: SPT 15:40 | PROVIDERS: PCP Family Medicine; Visit Provider Orthopaedic Surgery | DX: Z46.89 Encounter for fitting and adjustment of other specified devices (principal); S52.591D Other fractures of lower end of right radius, subsequent encounter for closed fracture with routine healing; X58.XXXD Exposure to other specified factors, subsequent encounter | CPT/HCPCS: 85610; 97760; L3908 ==

== ENCOUNTER 2022-01-06 15:34 | Outpatient (CLI) | payer MEDICARE, MEDICAID, SELFPAY ==
[2022-01-06 16:28] LABS: Basophils % 0.8 %; Eosinophils # 0.1 10^3/uL (0.0-0.8); Eosinophils % 2.5 %; Hematocrit 27.1 % (37.0-47.0); Hemoglobin 8.1 g/dL (11.5-15.3); Lymphocytes # 1.2 10^3/uL (0.8-4.8); Lymphocytes % 33.9 %; Mean Corpuscular HGB Conc 29.9 g/dL (30.0-36.0); Mean Corpuscular Hemoglobin 29.2 pg (28.0-34.0); Mean Corpuscular Volume 97.8 fl (81-99); Mean Platelet Volume 10.2 fL (7.4-10.4); Monocytes # 0.3 10^3/uL (0.2-0.9); Monocytes % 8.4 %; Neutrophils # 1.93 10^3/uL (1.8-7.7); Neutrophils % 54.1 %; Nucleated Red Blood Cells % 0 %; Platelet Count 167 10^3/cmm (130-400); Red Blood Count 2.77 10^6/uL (4.1-5.3); Red Cell Distribution Width 14.6 % (12.1-15.1); White Blood Count 3.6 10^3/uL (4.0-10.0)
== END 2022-01-06 15:35 | disposition home or self-care (01) ==
LOC: LAB 15:36
PROVIDERS: PCP Family Medicine; Visit Provider Nurse Practitioner Family
DX: I50.32 Chronic diastolic (congestive) heart failure (principal)
CPT/HCPCS: 85025

== ENCOUNTER → 2022-01-12 14:04 | Outpatient (BNVA) | payer MEDICARE, MEDICAID, SELFPAY | PROVIDERS: PCP Family Medicine; Visit Provider Orthopaedic Surgery | DX: Z47.89 Encounter for other orthopedic aftercare (principal); S52.501D Unspecified fracture of the lower end of right radius, subsequent encounter for closed fracture with routine healing; S52.601D Unspecified fracture of lower end of right ulna, subsequent encounter for closed fracture with routine healing; X58.XXXD Exposure to other specified factors, subsequent encounter | CPT/HCPCS: 73110 ==

== ENCOUNTER → 2022-01-20 13:47 | Outpatient (BNVA) | payer MEDICARE, MEDICAID, SELFPAY | PROVIDERS: PCP Family Medicine; Visit Provider Internal Medicine Cardiovascular Disease | DX: Z79.01 Long term (current) use of anticoagulants (principal) ==

== ENCOUNTER 2022-01-20 13:55 | Observation (INO) | payer MEDICARE, MEDICAID, SELFPAY ==
[2022-01-20] VITALS (16 sets, daily range): BP systolic 120–142; BP diastolic 40–64; PULSE 61–89; RESP 16–29; TEMP 36.5–36.9; O2SAT 95–100
--- NOTE | 2022-01-20 13:59 | W.ED.WEAKNES ---
HPI - Weakness General: Chief complaint: General Medical Stated complaint: GENERAL WEAKNESS, LETHARGIC Time Seen by Provider: 01/20/22 13:59 History of Present Illness: Ms. Garcia is an 81-year-old lady with complex past medical history who presents to the emergency department due to mental status changes. Symptoms were subacute in onset approximately 3 days ago. Family endorses prolonged episodes, 6 to 8 hours, of markedly decreased mental status. She essentially just lays there and does nothing. She does not respond to questioning. There are no proceeding prodromal symptoms reported. The patient herself is unsure of exactly what she feels with these episodes. She currently is alert and oriented and denies focal neurologic symptoms. Only other new symptom that family reports is generalized weakness and urinary incontinence. Breathing is poor but overall similar to baseline. No low back pain or bowel incontinence. Intensity of symptoms when present is moderate to severe. Course has been worsening. Was evaluated by home health and nonresponsive to sternal rub. No other specific changes in health, exacerbating, or alleviating factors identified. Onset (ago): day(s) Duration: intermittent Location: generalized Severity: severe Review of Systems General: Reports: 10 or more systems reviewed and unremarkable except in HPI and below PFSH ED PFSH: Medical History Acute and chronic respiratory failure with hypercapnia Acute and chronic respiratory failure with hypercapnia Acute encephalopathy Acute exacerbation of chronic obstructive airways disease Acute exacerbation of COPD with asthma Acute metabolic encephalopathy Acute on chronic respiratory failure with hypoxia and hypercapnia Afib Anemia -baseline Hg around 9-10 -follow with Dr Bullock Anemia Anemia Atrial fibrillation CAD (coronary artery disease) CHF (congestive heart failure) Chronic anticoagulation Due to mechanical mitral valve; coumadin Chronic anticoagulation Chronic hypercapnic respiratory failure Complicated urinary tract infection Congestive heart failure COPD (chronic obstructive pulmonary disease) COPD (chronic obstructive pulmonary disease) Depression Diastolic CHF GERD (gastroesophageal reflux disease) PPI Heart failure HTN (hypertension) Hypernatremia Hypothyroidism -continue levothyroxine Iron deficiency anemia Has required transfusion in past, last egd and colonoscopy ~2017 with diverticulosis and internal hemorrhoids, SONYA (obstructive sleep apnea) Pancytopenia Parkinson disease Follows up with Dr. Rainey in [place] Pulmonary hypertension Respiratory failure with hypoxia and hypercapnia Restrictive lung disease Schatzki's ring Subtherapeutic international normalized ratio (INR) Transient neurological symptoms UTI (urinary tract infection) Weakness Surgical History H/O mitral valve replacement with mechanical valve History of bilateral tubal ligation History of cholecystectomy History of total knee arthroplasty Left Mitral valve replaced Mechanical, on coumadin Family History Mother CAD (coronary artery disease) Diabetes Other Hypertension Social History Smoking and tobacco status: never smoked Quit status (tobacco): has quit using tobacco Year quit tobacco: 1994 PPD x 15 Years Second hand smoke exposure: No Smoking risk assessment/counseling performed?: No Alcohol intake: never Counseling given: No Counseling given: No Caregiver/support person: Yes Household members: spouse and children Housing: House Marital status: Current occupational status: retired and disabled History of recent travel: No Current gender identity: Female Physical Exam Const: COMMON NORMALS: alert GENERAL APPEARANCE: cooperative, well developed and ill appearing HENMT: COMMON NORMALS: normocephalic and atraumatic HEAD & SCALP: normocephalic and atraumatic THROAT: posterior oropharynx normal Eye: COMMON NORMALS: conjunctivae normal CONJUNCTIVA: Yes conjunctivae normal SCLERA: sclerae normal Neck/C-Spine: COMMON NORMALS: supple GENERAL: Yes trachea midline Resp: EFFORT & INSPECTION: Yes able to speak in complete sentences and Yes tachypneic AUSCULTATION: diminished lung sounds Cardio: COMMON NORMALS: regular rate and regular rhythm RATE: regular rate RHYTHM: regular rhythm GI: COMMON NORMALS: Soft to palpation PALPATION: Yes Soft to palpation and No Tenderness to palpation present (GI) PERCUSSION: normal to percussion Extremity: GENERAL: Yes normal exam except as noted and No edema Neuro: COMMON NORMALS: CN's II-XII intact bilaterally, moves all extremities, no focal motor deficits and no sensory deficits noted SENSORIUM/ORIENTATION: Yes alert and No Orientation impaired Psych: COMMON NORMALS: mental status grossly normal and Normal thought process present THOUGHT PROCESS: Normal thought process present Course ED course: - Patient was seen and evaluated by me at bedside - Patient placed on cardiac monitors, IV access obtained - Initial evaluation notable for exam as above - Labs and xrays personally interpreted by me -ABG notable for hypercapnia and hypoxemia. BiPAP ordered. Breathing treatment ordered and fluids ordered. - Labs notable for pancytopenia, similar to prior with exception of low platelet count. Metabolic panel with mild electrolyte abnormalities which will improve with fluids. Delta troponin negative. BNP mildly elevated. Urinalysis concerning for urinary tract infection though squamous epithelial contamination present despite cath sample. Antibiotic ordered. - Imaging notable for no acute finding on head CT. Chest x-ray without lobar consolidation or pneumothorax - Upon serial reexamination after treatment the patient was similar - Based on patient history, evaluation, and testing as interpreted the most likely cause of the patient's condition is multifactorial, possibly contributed to due to urine tract infection. Likely exacerbation of severe underlying medical conditions. - The results of ED evaluation were discussed with the patient including plan for admission due to requirement for level of care not available if discharged to prevent significant worsening/deterioration. -Hospitalist service contacted and agreed to admit the patient - Patient was admitted without further deterioration or significant events. Note: Click bubbles or prepopulated mckeon in note writing are used for assistance with data collection and billing and are inherently more limited than narrative and other text portions of this note. Please use narrative for additional clinical history and defer to narrative/free test for any case of contradictory information. If information appears in only free text or click bubble it should be considered present or absent as reported. Please contact note group underwriter for clarifications of clinical information or contradictory information. MDM is a brief summary, contradictory or erroneous seeming information should be clarified and full note should be reviewed. Vital Signs: Vital signs: Vital Signs Temperature 98.2 F 01/21/22 11:54 Pulse Rate 58 L 01/21/22 11:54 Respiratory Rate 15 01/21/22 11:54 Blood Pressure 107/51 01/21/22 16:50 Pulse Oximetry 100 01/21/22 11:54 MDM - Weakness Medical Decision Making 81-year-old lady with complex past medical history including multiple hospitalizations for acute on chronic respiratory failure presenting due to multiple episodes of unresponsiveness over the past 2 days. ED evaluation with possible worsening of respiratory status and urinary tract infection. Admitted for observation and further management. Medical Records I reviewed the patient's medical records. Lab Data I reviewed the patient's lab results. : 01/21/22 02:57 01/21/22 02:57 Radiology Impressions Chest X-Ray 01/20/22 14:00 Impression: 1. Cardiomegaly. 2. Artificial cardiac valve. 3. Atherosclerosis and hyperinflation. Head CT 01/20/22 14:00 IMPRESSION: 1. No evidence of intracranial hemorrhage or mass effect. 2. Mild small vessel changes. Mild parenchymal volume loss. 3. Opacification LEFT mastoid air cells and LEFT middle ear unchanged since December 03, 2021. 4. No acute intracranial findings. Laboratory Results WBC 3.4 10^3/uL (4.0-10.0) L 01/20/22 14:03 RBC 3.07 10^6/uL (4.1-5.3) L 01/20/22 14:03 Hgb 9.1 g/dL (11.5-15.3) L 01/20/22 14:03 Hct 30.7 % (37.0-47.0) L 01/20/22 14:03 MCV 100.0 fl (81-99) H 01/20/22 14:03 MCH 29.6 pg (28.0-34.0) 01/20/22 14:03 MCHC 29.6 g/dL (30.0-36.0) L 01/20/22 14:03 RDW 15.5 % (12.1-15.1) H 01/20/22 14:03 Plt Count 117 10^3/cmm (130-400) L 01/20/22 14:03 MPV 10.1 fL (7.4-10.4) 01/20/22 14:03 Neut % (Auto) 56.8 % 01/20/22 14:03 Lymph % (Auto) 27.6 % 01/20/22 14:03 Chaves % (Auto) 13.5 % 01/20/22 14:03 Eos % (Auto) 0.9 % 01/20/22 14:03 Baso % (Auto) 0.9 % 01/20/22 14:03 Neut # (Auto) 1.93 10^3/uL (1.8-7.7) 01/20/22 14:03 Lymph # (Auto) 0.9 10^3/uL (0.8-4.8) 01/20/22 14:03 Chaves # (Auto) 0.5 10^3/uL (0.2-0.9) 01/20/22 14:03 Eos # (Auto) 0.0 10^3/uL (0.0-0.8) 01/20/22 14:03 Baso # (Auto) 0.0 10^3/uL (0.0-0.1) 01/20/22 14:03 Nucleated RBC % (auto) 0 % 01/20/22 14:03 Nucleated RBCs # 0.0 /100WBC 01/20/22 14:03 Specimen Type Arterial 01/20/22 14:54 Sample Site Radial, left 01/20/22 14:54 ABG pH 7.37 (7.35-7.45) 01/20/22 14:54 ABG pCO2 75.5 mmHg (35-45) H* 01/20/22 14:54 ABG pO2 66.5 mmHg (80.0-100.0) L 01/20/22 14:54 ABG HCO3 44.1 mmol/L (22-26) H 01/20/22 14:54 ABG Base Excess 16.4 mmol/L (-2.0-2.0) H 01/20/22 14:54 César Test Pos 01/20/22 14:54 Hematocrit 27.2 % (37-47) L 01/20/22 14:54 O2 Delivery Device Nc 01/20/22 14:54 O2 Liters/Min 2.0 % 01/20/22 14:54 FiO2 28.0 % 01/20/22 14:54 Commercial Green Building Designer ID Cak 01/20/22 14:54 Sodium 146 mmol/L (136-145) H 01/20/22 14:03 Potassium 3.9 mmol/L (3.5-5.1) 01/20/22 14:03 Chloride 97 mmol/L (98-107) L 01/20/22 14:03 Carbon Dioxide 42 mmol/L (22-29) H* 01/20/22 14:03 Anion Gap 10.9 (5-19) 01/20/22 14:03 BUN 17 mg/dL (8-23) 01/20/22 14:03 Creatinine 0.9 mg/dL (0.5-0.9) 01/20/22 14:03 GFR Calculation Not Reportable 01/20/22 14:03 Glucose 92 mg/dL (65-115) 01/20/22 14:03 POC Glucose 83 mg/dL (70-110) 01/20/22 14:22 Calculated Osmolality 303 mOsm/kg (285-295) H 01/20/22 14:03 Calcium 9.1 mg/dL (8.5-10.5) 01/20/22 14:03 Total Bilirubin 0.9 mg/dL (0.15-1.2) 01/20/22 14:03 AST 12 U/L (0-32) 01/20/22 14:03 ALT 6 U/L (0-33) 01/20/22 14:03 Alkaline Phosphatase 88 IU/L (35-105) 01/20/22 14:03 Troponin T Baseline 26 ng/L (0-10) H 01/20/22 14:03 Troponin T 120 Minute 25.10 ng/L (0-10) H 01/20/22 16:12 Delta Troponin T -0.90 ABS# (0-10) L 01/20/22 16:12 C-Reactive Protein 6.4 mg/L (0.0-4.9) H 01/20/22 14:03 NT-Pro-B Natriuret Pep 910 pg/mL (0-450) H 01/20/22 14:03 Total Protein 6.2 g/dL (6.6-8.7) L 01/20/22 14:03 Albumin 4.1 g/dL (3.5-5.2) 01/20/22 14:03 Globulin 2.1 g/dL (1.3-4.6) 01/20/22 14:03 Procalcitonin 0.05 ng/mL (0-0.5) 01/20/22 14:03 Urine Color Yellow (Yellow) 01/20/22 14:38 Urine Appearance Cloudy (CLEAR) 01/20/22 14:38 Urine pH 7 (5-7) 01/20/22 14:38 Ur Specific [place] 1.010 (1.005-1.030) 01/20/22 14:38 Urine Protein 1+ (Negative) H 01/20/22 14:38 Urine Glucose (UA) Norm (Normal) 01/20/22 14:38 Urine Ketones Negative (Negative) 01/20/22 14:38 Urine Blood 3+ (Negative) H 01/20/22 14:38 Urine Nitrate Positive (Negative) H 01/20/22 14:38 Urine Bilirubin Neg (Negative) 01/20/22 14:38 Urine Urobilinogen Norm mg/dL (Negative) 01/20/22 14:38 Ur Leukocyte Esterase 2+ (Negative) H 01/20/22 14:38 Urine RBC 5-10 /hpf (0-2) H 01/20/22 14:38 Urine WBC >100 /hpf (0-5) H 01/20/22 14:38 Ur Squamous Epith Cells 5-10 /hpf (0-5) H 01/20/22 14:38 Amorphous Sediment Not Reportable 01/20/22 14:38 Urine Bacteria 1+ /hpf (NONE) H 01/20/22 14:38 EKG Data EKG 1: I personally reviewed and interpreted this EKG as follows: EKG interpretation date: 01/20/22 EKG interpretation time: 14:35 Interpretation: Twelve-lead EKG shows a regular rhythm at a rate of 71. SD interval normal. QRS duration 100. QTc 379. Regular Orange. Interpretation: Normal rhythm. Nonspecific ST segment abnormalities. EKG 2: I personally reviewed and interpreted this EKG as follows: EKG interpretation date: 01/20/22 EKG interpretation time: 16:02 Interpretation: Twelve-lead EKG shows a regular rhythm at a rate of 68. SD interval normal. QRS duration 108. QTc 424. Regular Orange. Interpretation: Sinus rhythm. Nonspecific ST segment abnormalities. Discharge Plan Discharge Patient Disposition: Placed in Observation Admit Provider: Surinder Olivares Clinical Impression: Complicated urinary tract infection, Acute on chronic respiratory failure with hypoxia and hypercapnia, Pancytopenia, Transient neurological symptoms Coding Level of Care Code ED Doggy Daycare Activities Director for Chg Rao
--- NOTE | 2022-01-20 14:00 | CT_ITS ---
WS: [id number] CT HEAD TECHNIQUE: Noncontrast CT of the head obtained from the skullbase to the vertex. CLINICAL INFORMATION: ams COMPARISON: December 03, 2021 DLP: 1975.[address] scans at [facility] use at least one of these dose optimization techniques: automated e xposure control; mA and/or kV adjustment per patient size (includes targeted exams where dose is matc hed to clinical indication); or iterative reconstruction. FINDINGS: Some images degraded by beam hardening artifact No evidence of intracranial hemorrhage or mass effect. Ventricular system and basal cisterns are rodriguez nt. Mild small vessel changes with mild parenchymal volume loss. No extra-axial fluid collections. No evidence of mass or mass effect. Normal swanson-white differentiation. Paranasal sinuses are well aerated. Opacification of the LEFT mastoid air cells and LEFT middle ear. RIGHT mastoid air cells are well aerated. CT/CT head wo con* [id number] IMPRESSION: 1. No evidence of intracranial hemorrhage or mass effect. 2. Mild small vessel changes. Mild parenchymal volume loss. 3. Opacification LEFT mastoid air cells and LEFT middle ear unchanged since 2021. 4. No acute intracranial findings.
--- NOTE | 2022-01-20 14:00 | XR_ITS ---
WS: [id number] Portable AP upright chest, 01/20/2022 Clinical Data: weakness, ams Comparison: Portable chest, 12/23/2021. Findings: No nodules, masses or effusions are seen. The heart is enlarged. The pulmonary vascularity is not increased. No pneumonia or pneumothorax is seen. There are midline sternotomy sutures with an artificial cardiac valve. The aortic arch and descending thoracic aorta show minimal calcification an d tortuosity. There is a dextroscoliosis of the thoracic spine. The diaphragms are flattened. XR/XR chest 1V portable [id number] Impression: 1. Cardiomegaly. 2. Artificial cardiac valve. 3. Atherosclerosis and hyperinflation.
--- NOTE | 2022-01-20 14:01 | ECG_ITS ---
[facility] Test Date: 2022-01-20 Pat Name: Iris Garcia Department: Room: Gender: Female Skin Care Specialist: : 1940 Requested By: Shon Dunn Order Number: [id number] Krupa MD: Cas Galvez M.D. Measurements Intervals [place] Rate: 71 P: HI: QRS: 24 QRSD: 100 T: -34 QT: 356 QTc: 389 Interpretive Statements SUPRAVENTRICULAR RHYTHM NONSPECIFIC ST & T-WAVE ABNORMALITY Compared to ECG 12/03/2021 18:49:25 T-wave abnormality now present Myocardial infarct finding no longer present Electronically Signed On 01-20-2022 17:54:54 CDT by Cas Galvez M.D. [id number]
[2022-01-20 14:12] LABS: Basophils % 0.9 %; Eosinophils % 0.9 %; Hematocrit 30.7 % (37.0-47.0); Hemoglobin 9.1 g/dL (11.5-15.3); Lymphocytes # 0.9 10^3/uL (0.8-4.8); Lymphocytes % 27.6 %; Mean Corpuscular HGB Conc 29.6 g/dL (30.0-36.0); Mean Corpuscular Hemoglobin 29.6 pg (28.0-34.0); Mean Platelet Volume 10.1 fL (7.4-10.4); Monocytes # 0.5 10^3/uL (0.2-0.9); Monocytes % 13.5 %; Neutrophils # 1.93 10^3/uL (1.8-7.7); Neutrophils % 56.8 %; Nucleated Red Blood Cells % 0 %; Platelet Count 117 10^3/cmm (130-400); Red Blood Count 3.07 10^6/uL (4.1-5.3); Red Cell Distribution Width 15.5 % (12.1-15.1); White Blood Count 3.4 10^3/uL (4.0-10.0)
[2022-01-20 14:25] LABS: Glucose Point of Care 83 mg/dL (70-110)
[2022-01-20 14:47] LABS: NT Pro B Type Natriuretic Pept 910 pg/mL (0-450); Procalcitonin 0.05 ng/mL (0-0.5)
[2022-01-20 14:49] LABS: Add Urine Microscopic? YES; Bilirubin Urine Neg (Negative); Blood Urine 3+ (Negative); Glucose Urine UA Norm (Normal); Ketones Urine Negative (Negative); Leukocyte Esterase Urine 2+ (Negative); Nitrate Urine Positive (Negative); Protein Urine 1+ (Negative); Urine Appearance Cloudy (CLEAR); Urine Color Yellow (Yellow); Urobilinogen Urine Norm (Negative); pH Urine 7 (5-7)
[2022-01-20 14:51] LABS: Troponin(5th) Baseline 26 ng/L (0-10)
[2022-01-20] MEDS: ipratropium-albuterol 3 mL Neb INHALATION (14:53)
[2022-01-20 14:58] LABS: Alanine Aminotransferase 6 U/L (0-33); Albumin Level 4.1 g/dL (3.5-5.2); Alkaline Phosphatase 88 IU/L (35-105); Anion Gap 10.9 (5-19); Aspartate Amino Transferase 12 U/L (0-32); Blood Urea Nitrogen 17 mg/dL (8-23); C Reactive Protein 6.4 mg/L (0.0-4.9); Calcium 9.1 mg/dL (8.5-10.5); Chloride 97 mmol/L (98-107); Globulin 2.1 g/dL (1.3-4.6); Glucose 92 mg/dL (65-115); Osmolality Calculated 303 mOsm/kg (285-295); Potassium 3.9 mmol/L (3.5-5.1); Sodium 146 mmol/L (136-145); Total Bilirubin 0.9 mg/dL (0.15-1.2); Total Protein 6.2 g/dL (6.6-8.7)
[2022-01-20 15:00] LABS: Carbon Dioxide 42 mmol/L (22-29)
[2022-01-20 15:05] LABS: ABG PH Result 7.37 (7.35-7.45); Arterial Blood Gas Hematocrit 27.2 % (37-47); Base Excess ABG 16.4 mmol/L (-2.0-2.0); Blood Gas Allen Test Pos; Blood Gas Operator Identificat CAK; Blood Gas Sample Site Radial, left; Blood Gas Sample Type Arterial; HCO3 ABG 44.1 mmol/L (22-26); Oxygen Device NC; PO2 ABG 66.5 mmHg (80.0-100.0)
[2022-01-20 15:06] LABS: ABG PCO2 75.5 mmHg (35-45)
[2022-01-20 15:11] LABS: Add Urine Culture? Yes; Bacteria Urine 1+ /hpf; WBC Urine >100 /hpf (0-5)
[2022-01-20] MEDS: cefTRIAXone 1,000 MG in sodium chloride 0.9% (plus) 50 ML 100 MG IV (15:27)
--- NOTE | 2022-01-20 16:01 | ECG_ITS ---
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 Measurements Intervals [place] Rate: 68 P: ID: QRS: 4 QRSD: 108 T: 2 QT: 406 QTc: 434 Interpretive Statements SUPRAVENTRICULAR RHYTHM MODERATE ST DEPRESSION [0.05+ mV ST DEPRESSION] Compared to ECG 01/20/2022 14:29:42 ST (T wave) deviation now present T-wave abnormality no longer present Electronically Signed On 01-20-2022 17:57:14 CDT by Cas Galvez M.D. [id number]
[2022-01-20] MEDS: sodium chloride 0.9% 1,000 ML 999 ML IV (16:50)
--- NOTE | 2022-01-20 17:41 | P.HP_ITS ---
Providers/Chief Complaint Admitting Physician: Surinder Olivares MD Primary Care Provider: Michael Hampton DO Chief Complaint: GENERAL WEAKNESS, LETHARGIC History of Present Illness Iris Garcia is a 81 year old female who was [facility] from the [facility] has not been using her trilogy at home presented today when was not able to wake her up. is stating that for last few months she has not been using her trilogy at all. At home she is able to use a walker to ambulate eat on her own and carry some conversation at baseline. Today he was not able to wake her up at concern him. She was brought in for further evaluation in the ER. She was diagnosed with UTI, borderline hypercapnia, to decrease work of breathing she was started on BiPAP Abnormal UA noted She was given ceftriaxone As per the she is compliant with her medications She has resting tremors Her rhythm is in A. fib She is awake and alert able to give me some details about her presentation She is DNR/DNI Review of Systems Const: Denies: chills Eyes: Denies: change in vision ENMT: Denies: throat pain Card: Denies: chest pain Resp: Reports: dyspnea GI: Denies: abdominal pain : Denies: flank pain Musc: Denies: neck pain Skin/Breast: Reports: lesions Neuro: Denies: headache(s) Psych: Denies: anxiety Endo: Denies: polyuria Jesus Alberto/Lymph: Denies: easy bruising All/Imm: Denies: urticaria Medications/Allergies Home Medications Medication Instructions Recorded Confirmed Last Taken Type fluoxetine 10 mg capsule 10 mg PO DAILY@ cap 11/06/19 01/20/22 01/19/22 History tolterodine 2 mg tablet 2 mg PO BID@03/12/20 01/20/22 01/19/22 History ferrous gluconate 324 mg (37.5 mg 324 mg PO BID@11/10/20 01/20/22 01/19/22 History iron) tablet potassium chloride 10 mEq 20 meq PO DAILY 11/10/20 01/20/22 01/19/22 History tablet,extended release (Klor-Con) sennosides 8.6 mg-docusate sodium 1 tab PO BID 11/10/20 01/20/22 01/19/22 History 50 mg tablet pantoprazole 40 mg tablet,delayed 40 mg PO BID@0900,2100 12/31/20 01/20/22 01/19/22 History release fluticasone 250 mcg-salmeterol 50 1 inh INHALATION BID@0900,209902/12/21 01/20/22 01/19/22 History mcg/dose blistr powdr for inhalation (Advair Diskus) nitroglycerin 0.4 mg sublingual 0.4 mg SUBLINGUAL Q5M PRN 02/12/21 01/20/22 Unknown History tablet rosuvastatin 10 mg tablet 10 mg PO DAILY@209902/12/21 01/20/22 01/19/22 History albuterol sulfate 90 mcg/actuation 2 inh INHALATION Q6H PRN 02/26/21 01/20/22 Unknown History aerosol inhaler polyethylene glycol 3350 17 gram 17 g PO DAILY PRN 04/27/21 01/20/22 1 Day Ago History oral powder packet (Miralax) ~12/03/21 lisinopril 2.5 mg tablet 2.5 mg PO DAILY #30 tab 06/09/21 01/20/22 01/19/22 Rx acetaminophen 325 mg tablet 325 - 650 mg PO Q4H PRN 08/09/21 01/20/22 Unknown History (Tylenol) carvedilol 6.25 mg tablet 6.25 mg PO BID 08/09/21 01/20/22 01/19/22 History levothyroxine 50 mcg tablet 50 mcg PO QAM 08/09/21 01/20/22 01/19/22 History albuterol sulfate 90 mcg/actuation 1 inh INHALATION Q6H PRN #8.5 g 11/08/21 01/20/22 Unknown Rx aerosol inhaler (Ventolin HFA) bumetanide 2 mg tablet 2 mg PO DAILY 11/08/21 01/20/22 01/19/22 History carbidopa 10 mg-levodopa 100 mg 1 tab PO TID 11/08/21 01/20/22 01/19/22 History tablet cholecalciferol (vitamin D3) 125 125 mcg PO DAILY 11/08/21 01/20/22 01/19/22 History mcg (5,000 unit) tablet (Vitamin D3) warfarin 3 mg tablet See Rx Instructions .ROUTE .COMPLEX 01/08/2001/20/22 01/19/22 History isosorbide mononitrate 30 mg 15 mg PO DAILY #0 tab 12/08/21 01/20/22 01/19/22 Rx tablet,extended release 24 hr cock up splint #1 ea 12/15/21 01/20/22 Unknown Rx Allergies Allergy/AdvReac Type Severity Reaction Status Date / Time penicillin G Allergy UNK Verified 01/20/22 16:36 PFSH Acute PFSH: Medical History Acute and chronic respiratory failure with hypercapnia Acute and chronic respiratory failure with hypercapnia Acute encephalopathy Acute exacerbation of chronic obstructive airways disease Acute exacerbation of COPD with asthma Acute metabolic encephalopathy Afib Anemia -baseline Hg around 9-10 -follow with Dr Bullock Anemia Anemia Atrial fibrillation CAD (coronary artery disease) CHF (congestive heart failure) Chronic anticoagulation Due to mechanical mitral valve; coumadin Chronic anticoagulation Chronic hypercapnic respiratory failure Congestive heart failure COPD (chronic obstructive pulmonary disease) COPD (chronic obstructive pulmonary disease) Depression Diastolic CHF GERD (gastroesophageal reflux disease) PPI Heart failure HTN (hypertension) Hypernatremia Hypothyroidism -continue levothyroxine Iron deficiency anemia Has required transfusion in past, last egd and colonoscopy ~2017 with diverticulosis and internal hemorrhoids, SONYA (obstructive sleep apnea) Parkinson disease Follows up with Dr. Rainey in [place] Pulmonary hypertension Respiratory failure with hypoxia and hypercapnia Restrictive lung disease Schatzki's ring Subtherapeutic international normalized ratio (INR) Weakness Surgical History History of bilateral tubal ligation History of cholecystectomy History of total knee arthroplasty Left Mitral valve replaced Mechanical, on coumadin Family History Mother CAD (coronary artery disease) Diabetes Other Hypertension Social History Smoking and tobacco status: never smoked Quit status (tobacco): has quit using tobacco Year quit tobacco: 1994 - PPD x 15 Years Second hand smoke exposure: No Smoking risk assessment/counseling performed?: No Alcohol intake: never Counseling given: No Counseling given: No Caregiver/support person: Yes Household members: spouse and children Housing: House Marital status: Current occupational status: retired and disabled History of recent travel: No Current gender identity: Female Vitals/I&O/Wt Last Vital Signs Temp 97.7 F 01/20/22 13:56 Pulse 74 01/20/22 17:20 Resp 24 H 01/20/22 16:19 BP 123/43 01/20/22 16:19 Pulse Ox 99 01/20/22 17:20 01/20/22 01/20/22 01/20/22 06:59 14:59 22:59 Intake Total 50 / 50 Balance 50 / 50 Physical Exam Narrative: Patient was on BiPAP resting tremors at the bedside Variable S1-S2 Distended abdomen, soft, no signs of peritonitis Nontender Venous stasis dermatitis Edema of legs noted Patient is awake and alert Able to follow commands Nonfocal neuro exam Data : 01/20/22 14:03 01/20/22 14:03 Micro: Microbiology 01/20/22 14:31 Blood Culture - Preliminary Blood SPECIMEN COLLECTED 01/20/22 14:29 Blood Culture - Preliminary Blood SPECIMEN COLLECTED A&P Assessment and plan (1) UTI (urinary tract infection): Status: Acute (2) H/O mitral valve replacement with mechanical valve: Status: Acute (3) Transient neurological symptoms: Status: Acute (4) Altered mental status: Status: Acute Plan Altered mental status Metabolic encephalopathy related to UTI Start ceftriaxone Noted abnormal UA Patient seems to be at baseline for her pH and PaCO2 Currently doing well on BiPAP She is awake and alert Encephalopathy: Resolved For UTI started on ceftriaxone She uses 3 L of oxygen [id number], we will keep her on BiPAP to decrease work of breathing overnight She has trilogy at home Chronic heart failure without acute exacerbation For contraction alkalosis I would hold Bumex, use acetazolamide 1 dose today, continue potassium supplementation Patient is DNR/DNI discussed with the patient and her Cardiac consistent carb diet DVT prophylaxis not indicated she takes Coumadin for her mechanical mitral valve, check INR, Attestations Medical Necessity Statement*: Anticipating less than 2 anticipating less than 2 midnights in the hospital Time Spent in Patient Care: 35mins Coding Level of Care Code Acute Distribution System Operator for Chg Fwd Diagnoses UTI (urinary tract infection) N39.0 H/O mitral valve replacement with mechanical valve Z95.2 Transient neurological symptoms R29.818 Altered mental status R41.82
--- NOTE | 2022-01-20 20:01 | ECG_ITS ---
[facility] Test Date: 2022-01-20 Pat Name: Iris Garcia Department: Room: 273 Gender: Female Manager Telemarketing: : 1940 Requested By: Shon Dunn Order Number: [id number] Krupa MD: Cas Galvez M.D. Measurements Intervals Lottie Rate: 80 P: 21 MI: 228 QRS: 35 QRSD: 101 T: -16 QT: 359 QTc: 416 Interpretive Statements SINUS RHYTHM WITH FIRST DEGREE AV BLOCK NONSPECIFIC ST & T-WAVE ABNORMALITY Compared to ECG 01/20/2022 15:56:44 First degree AV block now present T-wave abnormality now present Supraventricular rhythm no longer present ST (T wave) deviation no longer present Electronically Signed On 01-20-2022 21:28:26 CDT by Cas Galvez M.D. [id number]
[2022-01-20 21:10] LABS: Troponin 5 6HR 23.94 ng/L (0-10)
[2022-01-20 21:11] LABS: Troponin 5 6HR Delta -2.06 ng/L (0-12)
[2022-01-20 21:44] LABS: Glucose Point of Care 79 mg/dL (70-110)
[2022-01-20] MEDS: pantoprazole DR 40 mg Tablet PO (21:44)
[2022-01-20] MEDS: sennosides-docusate Tablet 1 TAB PO (21:44)
[2022-01-20] MEDS: carvedilol 6.25 mg Tablet PO (21:45)
[2022-01-20] MEDS: acetaZOLAMIDE 250 mg Tablet PO (21:51)
[2022-01-21] VITALS (10 sets, daily range): BP systolic 107–145; BP diastolic 40–67; PULSE 52–74; RESP 15–25; TEMP 36.6–36.8; O2SAT 96–100
[2022-01-21 03:58] LABS: Basophils % 0.7 %; Hematocrit 28.5 % (37.0-47.0); Hemoglobin 8.3 g/dL (11.5-15.3); Lymphocytes # 0.7 10^3/uL (0.8-4.8); Lymphocytes % 22.8 %; Mean Corpuscular HGB Conc 29.1 g/dL (30.0-36.0); Mean Corpuscular Hemoglobin 29.5 pg (28.0-34.0); Mean Corpuscular Volume 101.4 fl (81-99); Mean Platelet Volume 10.4 fL (7.4-10.4); Monocytes # 0.4 10^3/uL (0.2-0.9); Monocytes % 12.8 %; Neutrophils # 1.87 10^3/uL (1.8-7.7); Neutrophils % 62.7 %; Nucleated Red Blood Cells % 0 %; Platelet Count 104 10^3/cmm (130-400); Red Blood Count 2.81 10^6/uL (4.1-5.3); Red Cell Distribution Width 15.3 % (12.1-15.1)
[2022-01-21 04:02] LABS: INR 2.72 (0.8-1.2)
[2022-01-21 04:21] LABS: Anion Gap 7.4 (5-19); Blood Urea Nitrogen 15 mg/dL (8-23); Carbon Dioxide 40 mmol/L (22-29); Chloride 104 mmol/L (98-107); Glucose 124 mg/dL (65-115); Osmolality Calculated 308 mOsm/kg (285-295); Potassium 3.4 mmol/L (3.5-5.1); Sodium 148 mmol/L (136-145)
[2022-01-21] MEDS: levothyroxine 50 mcg Tablet PO (05:32)
[2022-01-21] MEDS: cefTRIAXone 1,000 MG in sodium chloride 0.9% (plus) 50 ML 100 MG IV (06:07)
[2022-01-21 06:30] LABS: Glucose Point of Care 106 mg/dL (70-110)
[2022-01-21] MEDS: carvedilol 6.25 mg Tablet PO (09:49)
[2022-01-21] MEDS: bumetanide 1 mg Tablet 2 MG PO (09:49)
[2022-01-21] MEDS: isosorbide mononitrate ER 30 mg Tablet 15 MG PO (09:50)
[2022-01-21] MEDS: potassium chloride ER 10 mEq Tablet 20 MEQ PO (09:50)
[2022-01-21] MEDS: sennosides-docusate Tablet 1 TAB PO (09:50)
[2022-01-21] MEDS: lisinopril 2.5 mg Tablet PO (09:50)
[2022-01-21] MEDS: pantoprazole DR 40 mg Tablet PO (10:03)
--- NOTE | 2022-01-21 10:56 | P.PN_ITS ---
Subjective Subjective: Patient is awake and alert able to tell me that she is feeling fine, she was able to tell me that her granddaughter is in the room and her is present as well She is not endorsing any active complaints, did speak with her and granddaughter today, they are concerned that they want people to care for at home as she gets worse every time she is released back home, this time they are looking for long-term detention placement consumer affairs manager is working on sending her back to [facility] Vitals/I&O/Wt Last Vital Signs Temp 97.8 F 01/21/22 07:57 Pulse 68 01/21/22 08:03 Resp 17 01/21/22 08:03 BP 144/67 01/21/22 07:57 Pulse Ox 100 01/21/22 08:03 01/20/22 01/21/22 01/21/22 22:59 06:59 14:59 Intake Total 1290 / 1290 290 / 1580 Balance 1290 / 1290 290 / 1580 Weight last 48 hrs Weight 64.319 kg Physical Exam Narrative: Patient is laying flat Saturating well on 3 L nasal cannula Abdomen soft Bilateral breath sound no rhonchi or crackles She is awake and alert Nonfocal neuro exam Resting tremors Parkinson facies Data : 01/21/22 02:57 01/21/22 02:57 Micro: Microbiology 01/20/22 14:31 Blood Culture - Preliminary Blood SPECIMEN COLLECTED 01/20/22 14:29 Blood Culture - Preliminary Blood SPECIMEN COLLECTED A&P Assessment and plan (1) Altered mental status: Status: Acute (2) UTI (urinary tract infection): Status: Acute (3) Pancytopenia: Status: Acute (4) Mitral valve replaced: Status: Acute (5) Afib: Status: Acute Qualifiers: Atrial fibrillation type: longstanding persistent Qualified Code(s): I48.11 - Longstanding persistent atrial fibrillation (6) Chronic hypercapnic respiratory failure: Status: Acute (7) Schatzki's ring: Status: Acute (8) GERD (gastroesophageal reflux disease): Status: Acute Plan Metabolic encephalopathy related to UTI: Resolved Patient is awake and alert nonfocal neuro exam Currently doing well on 3 L cannula We are planning to send her back to [facility] as long-term placement, at home she does not do well because of her demand of care, with underlying Parkinson's As per the family she has not used her BiPAP very well for last few months I did fine however whenever she is home she would decline rapidly Her ultimate status most likely is UTI related encephalopathy which is resolving She did well on BiPAP overnight Plan is to send her back to vascular detention once accepted, caseworker protective services updated, family meeting conducted today, patient was seen twice Mechanical valve, INR 2.7 Continue Coumadin current dose Chronic anemia without acute exacerbation DNR/DNI Attestations Medical Necessity Statement*: Awaiting placement Time Spent in Patient Care: 20min Coding Level of Care Code Acute Pruner for Chg Fwd Diagnoses Altered mental status R41.82 UTI (urinary tract infection) N39.0 Pancytopenia D61.818 Mitral valve replaced Z95.2 Afib I48.11 Atrial fibrillation type: longstanding persistent Chronic hypercapnic respiratory failure J96.12 Schatzki's ring K22.2 GERD (gastroesophageal reflux disease) K21.9
[2022-01-21 11:47] LABS: Glucose Point of Care 101 mg/dL (70-110)
--- NOTE | 2022-01-21 13:10 | PM.DCS ---
Discharge Providers Date of Admission: 01/20/22 16:25 Date of Discharge: January 21, 2022 Attending Provider at Admission: Surinder Olivares MD Attending Provider at Discharge: Surinder Olivares MD Primary Care Provider: Michael Hampton DO Diagnoses at Discharge Discharge Diagnosis (1) Altered mental status: Status: Acute (2) UTI (urinary tract infection): Status: Acute (3) Pancytopenia: Status: Acute (4) Mitral valve replaced: Status: Acute Permanent problem details: Mechanical, on coumadin (5) Afib: Status: Acute Qualifiers: Atrial fibrillation type: longstanding persistent Qualified Code(s): I48.11 - Longstanding persistent atrial fibrillation (6) Chronic hypercapnic respiratory failure: Status: Acute (7) Schatzki's ring: Status: Acute (8) GERD (gastroesophageal reflux disease): Status: Acute Permanent problem details: PPI Reason for Visit Reason for Visit: GENERAL WEAKNESS, LETHARGIC Hospital Course Hospital Course My Admitting note:- Iris Garcia is a 81 year old female who was discharged from the care home has not been using her trilogy at home presented today when was not able to wake her up.? is stating that for last few months she has not been using her trilogy at all.? At home she is able to use a walker to ambulate eat on her own and carry some conversation at baseline.? Today he was not able to wake her up at concern him.? She was brought in for further evaluation in the ER.? She was diagnosed with UTI, borderline hypercapnia, to decrease work of breathing she was started on BiPAP Abnormal UA noted She was given ceftriaxone As per the she is compliant with her medications She has resting tremors Her rhythm is in A. fib She is awake and alert able to give me some details about her presentation She is DNR/DNI Hosp Course:- She was admitted for management of metabolic encephalopathy related to UTI. She has chronic hypercapnia and hypoxia which did not worsen. She did well with use of BiPAP. Her work of breathing improved. She was started on ceftriaxone for UTI. Patient was awake and alert and oriented to time place and person on , family is at the bedside. Decision was made to discharge patient to [facility]note 3] because with underlying Parkinson's and dementia and gradual decline in her health, family won't to be able to take care of her at all at home. She will need long-term care home placement. To decrease work of breathing she would definitely benefit from BiPAP overnight usage. Levaquin for UTI. Afebrile, no worsening of wbc. CUltures are negative to date. Physical Exam Narrative: Alert and awake On 3 L nasal cannula which is her baseline home O2 requirement No active labor breathing S1, S2 variable Abdomen is soft Patient is awake and alert nonfocal neuro exam Very pleasant cooperative EOMI evaluation She has resting tremors Parkinson facies Nonfocal neuro exam Discharge Data Studies Completed and Pending Completed Studies During Hospitalization Category Date Time Status CT head wo con* [id number] Urgent Cat Scan 01/20/22 14:00 Completed XR chest 1V portable [id number] Urgent Exams 01/20/22 14:00 Completed Pending at discharge Category Date Time Status Basic Metabolic Panel AM LABS Lab 01/22/22 04:00 Ordered Blood Culture Stat Lab 01/20/22 14:31 Results COVID [SARS Covid-2 Antigen] Routine Lab 01/21/22 12:12 Uncollected Prothrombin Time INR AM LABS Lab 01/22/22 04:00 Ordered Prothrombin Time INR AM LABS Lab 01/23/22 04:00 Ordered Urine Culture Stat Lab 01/20/22 14:38 Received Radiology Impressions Chest X-Ray 01/20/22 14:00 Impression: 1. Cardiomegaly. 2. Artificial cardiac valve. 3. Atherosclerosis and hyperinflation. Head CT 01/20/22 14:00 IMPRESSION: 1. No evidence of intracranial hemorrhage or mass effect. 2. Mild small vessel changes. Mild parenchymal volume loss. 3. Opacification LEFT mastoid air cells and LEFT middle ear unchanged since December 03, 2021. 4. No acute intracranial findings. Laboratory Results WBC 3.0 10^3/uL (4.0-10.0) L 01/21/22 02:57 RBC 2.81 10^6/uL (4.1-5.3) L 01/21/22 02:57 Hgb 8.3 g/dL (11.5-15.3) L 01/21/22 02:57 Hct 28.5 % (37.0-47.0) L 01/21/22 02:57 MCV 101.4 fl (81-99) H 01/21/22 02:57 MCH 29.5 pg (28.0-34.0) 01/21/22 02:57 MCHC 29.1 g/dL (30.0-36.0) L 01/21/22 02:57 RDW 15.3 % (12.1-15.1) H 01/21/22 02:57 Plt Count 104 10^3/cmm (130-400) L 01/21/22 02:57 MPV 10.4 fL (7.4-10.4) 01/21/22 02:57 Neut % (Auto) 62.7 % 01/21/22 02:57 Lymph % (Auto) 22.8 % 01/21/22 02:57 [place] % (Auto) 12.8 % 01/21/22 02:57 Eos % (Auto) 1.0 % 01/21/22 02:57 Baso % (Auto) 0.7 % 01/21/22 02:57 Neut # (Auto) 1.87 10^3/uL (1.8-7.7) 01/21/22 02:57 Lymph # (Auto) 0.7 10^3/uL (0.8-4.8) L 01/21/22 02:57 [place] # (Auto) 0.4 10^3/uL (0.2-0.9) 01/21/22 02:57 Eos # (Auto) 0.0 10^3/uL (0.0-0.8) 01/21/22 02:57 Baso # (Auto) 0.0 10^3/uL (0.0-0.1) 01/21/22 02:57 Nucleated RBC % (auto) 0 % 01/21/22 02:57 Nucleated RBCs # 0.0 /100WBC 01/21/22 02:57 PT 29.30 SECONDS (12.1-14.9) H 01/21/22 02:57 INR 2.72 (0.8-1.2) H 01/21/22 02:57 Specimen Type Arterial 01/20/22 14:54 Sample Site Radial, left 01/20/22 14:54 ABG pH 7.37 (7.35-7.45) 01/20/22 14:54 ABG pCO2 75.5 mmHg (35-45) H* 01/20/22 14:54 ABG pO2 66.5 mmHg (80.0-100.0) L 01/20/22 14:54 ABG HCO3 44.1 mmol/L (22-26) H 01/20/22 14:54 ABG Base Excess 16.4 mmol/L (-2.0-2.0) H 01/20/22 14:54 César Test Pos 01/20/22 14:54 Hematocrit 27.2 % (37-47) L 01/20/22 14:54 O2 Delivery Device Nc 01/20/22 14:54 O2 Liters/Min 2.0 % 01/20/22 14:54 FiO2 28.0 % 01/20/22 14:54 Earth Mover ID Cak 01/20/22 14:54 Sodium 148 mmol/L (136-145) H 01/21/22 02:57 Potassium 3.4 mmol/L (3.5-5.1) L 01/21/22 02:57 Chloride 104 mmol/L (98-107) 01/21/22 02:57 Carbon Dioxide 40 mmol/L (22-29) H 01/21/22 02:57 Anion Gap 7.4 (5-19) 01/21/22 02:57 BUN 15 mg/dL (8-23) 01/21/22 02:57 Creatinine 0.8 mg/dL (0.5-0.9) 01/21/22 02:57 GFR Calculation Not Reportable 01/21/22 02:57 Glucose 124 mg/dL (65-115) H 01/21/22 02:57 POC Glucose 101 mg/dL (70-110) 01/21/22 10:56 Calculated Osmolality 308 mOsm/kg (285-295) H 01/21/22 02:57 Calcium 9.0 mg/dL (8.5-10.5) 01/21/22 02:57 Total Bilirubin 0.9 mg/dL (0.15-1.2) 01/20/22 14:03 AST 12 U/L (0-32) 01/20/22 14:03 ALT 6 U/L (0-33) 01/20/22 14:03 Alkaline Phosphatase 88 IU/L (35-105) 01/20/22 14:03 Troponin T Baseline 26 ng/L (0-10) H 01/20/22 14:03 Troponin T 120 Minute 25.10 ng/L (0-10) H 01/20/22 16:12 Delta Troponin T -0.90 ABS# (0-10) L 01/20/22 16:12 Troponin T Hi Sens 6Hr 23.94 ng/L (0-10) H 01/20/22 20:26 Troponin T Hi Sens 6Hr Delta -2.06 ng/L (0-12) L 01/20/22 20:26 C-Reactive Protein 6.4 mg/L (0.0-4.9) H 01/20/22 14:03 NT-Pro-B Natriuret Pep 910 pg/mL (0-450) H 01/20/22 14:03 Total Protein 6.2 g/dL (6.6-8.7) L 01/20/22 14:03 Albumin 4.1 g/dL (3.5-5.2) 01/20/22 14:03 Globulin 2.1 g/dL (1.3-4.6) 01/20/22 14:03 Procalcitonin 0.05 ng/mL (0-0.5) 01/20/22 14:03 Urine Color Yellow (Yellow) 01/20/22 14:38 Urine Appearance Cloudy (CLEAR) 01/20/22 14:38 Urine pH 7 (5-7) 01/20/22 14:38 Ur Specific [place] 1.010 (1.005-1.030) 01/20/22 14:38 Urine Protein 1+ (Negative) H 01/20/22 14:38 Urine Glucose (UA) Norm (Normal) 01/20/22 14:38 Urine Ketones Negative (Negative) 01/20/22 14:38 Urine Blood 3+ (Negative) H 01/20/22 14:38 Urine Nitrate Positive (Negative) H 01/20/22 14:38 Urine Bilirubin Neg (Negative) 01/20/22 14:38 Urine Urobilinogen Norm mg/dL (Negative) 01/20/22 14:38 Ur Leukocyte Esterase 2+ (Negative) H 01/20/22 14:38 Urine RBC 5-10 /hpf (0-2) H 01/20/22 14:38 Urine WBC >100 /hpf (0-5) H 01/20/22 14:38 Ur Squamous Epith Cells 5-10 /hpf (0-5) H 01/20/22 14:38 Amorphous Sediment Not Reportable 01/20/22 14:38 Urine Bacteria 1+ /hpf (NONE) H 01/20/22 14:38 Vitals Last Vital Signs Temp 98.2 F 01/21/22 11:54 Pulse 58 L 01/21/22 11:54 Resp 15 01/21/22 11:54 BP 107/51 01/21/22 12:17 Pulse Ox 100 01/21/22 11:54 Discharge Plan Discharge Patient Disposition: Xfer SNF Condition: Stable Prescriptions: New levofloxacin 750 mg tablet 750 mg PO DAILY 7 Days Qty: 7 0RF Continued fluoxetine 10 mg capsule 10 mg PO DAILY@09 0RF tolterodine 2 mg tablet 2 mg PO BID@, 0RF (DME) cock up splint See Rx Instructions .Route .MEDSUPPLY Qty: 1 0RF Rx Instructions: As directed lisinopril 2.5 mg tablet 2.5 mg PO DAILY Qty: 30 6RF nitroglycerin 0.4 mg Tablet, Sublingual 0.4 mg SUBLINGUAL Q5M PRN (Reason: Chest Pain) 0RF rosuvastatin 10 mg tablet 10 mg PO DAILY@2100 0RF fluticasone propion-salmeterol [Advair Diskus] 250-50 mcg/dose blister with device 1 inh inhalation BID@0900,2100 0RF polyethylene glycol 3350 [Miralax] 17 gram powder in packet 17 g PO DAILY PRN (Reason: Constipation) 0RF albuterol sulfate 90 mcg/actuation Hfa Aerosol Inhaler 2 inh INHALATION Q6H PRN (Reason: Shortness Of Breath) 0RF acetaminophen [Tylenol] 325 mg Tablet 325 - 650 mg PO Q4H PRN (Reason: Pain) 0RF levothyroxine 50 mcg tablet 50 mcg PO QAM 0RF carvedilol 6.25 mg tablet 6.25 mg PO BID 0RF warfarin 3 mg Tablet See Rx Instructions mg .ROUTE .COMPLEX 0RF Protocol: Dose Management Condition: Monday Dose/Route: 3 mg Instruction: 1 x 3 mg tablet Condition: Monday Dose/Route: 3 mg Instruction: 1 x 3 mg tablet Condition: Monday Dose/Route: 3 mg Instruction: 1 x 3 mg tablet Condition: Monday Dose/Route: 3 mg Instruction: 1 x 3 mg tablet Condition: Dose/Route: 3 mg Instruction: 1 x 3 mg tablet Condition: Monday Dose/Route: 3 mg Instruction: 1 x 3 mg tablet Condition: Monday Dose/Route: 3 mg Instruction: 1 x 3 mg tablet Protocol Text: Adjustment Start Date: 01/20/22 INR Value: 2.1 INR Date: 01/17/22 Recheck Date: 01/27/22 Rx Instructions: 3mg po daily@15:30 on ,mon, ,mon,sat and sun 4mg po daily@15:30 on mon carbidopa-levodopa 10-100 mg tablet 1 tab PO TID 0RF cholecalciferol (vitamin D3) [Vitamin D3] 125 mcg (5,000 unit) Tablet 125 mcg PO DAILY 0RF bumetanide 2 mg tablet 2 mg PO DAILY 0RF Hold Instructions: Resume on 12/15/21. follow up with cardiology prior to resuming. albuterol sulfate [Ventolin HFA] 90 mcg/actuation HFA aerosol inhaler 1 inh inhalation Q6H PRN (Reason: shortness of breath or wheezing) Qty: 8.5 0RF potassium chloride [Klor-Con 10] 10 mEq tablet extended release 20 meq PO DAILY 0RF ferrous gluconate 324 mg (37.5 mg iron) tablet 324 mg PO BID@ 0RF sennosides-docusate sodium 8.6-50 mg tablet 1 tab PO BID 0RF pantoprazole 40 mg tablet,delayed release (DR/EC) 40 mg PO BID@0900,2100 0RF isosorbide mononitrate 30 mg Tablet Extended Release 24 Hr 15 mg PO DAILY Qty: 0 0RF Discharge Orders: Discharge Order (Routine); Ordered 01/21/22 Ordered By: Surinder Olivares Referrals: [facility] [Outside] Michael Hampton DO [Primary Care Provider] - Discharge Attestations Time Spent in Discharge Care*: less than 30 min Status at Discharge: Cognitive status at discharge: cognitively intact, Behavioral status at discharge: cooperative, Quality Metrics Clinical Quality Measures [ No reported AMI, CVA or VTE this stay] Coding Level of Care Code Acute Chg FW DC note Diagnoses Altered mental status R41.82 UTI (urinary tract infection) N39.0 Pancytopenia D61.818 Mitral valve replaced Z95.2 Afib I48.11 Atrial fibrillation type: longstanding persistent Chronic hypercapnic respiratory failure J96.12 Schatzki's ring K22.2 GERD (gastroesophageal reflux disease) K21.9
--- NOTE | 2022-01-21 13:39 | PC.CHAP ---
Pastoral Care Encounter/Spiritual Assessment Type of Contact [] Declined horseradish grinder visit [] Patient/Family/Request visit [] Outpatient visit [] Follow-up visit [] Physician referral [] Code/Alert [xx] Routine visit [] Staff referral [] Actively dying [xx] Patient sleeping [] Family support [] [] Out of room [] Palliative care [] [] Receiving care in room [] Pre-surgical visit [] Trauma [] Long length of stay [] ICU visit [] Other: Relational/Emotional Strength [] Patient feels connected with others/family/visitors/staff [] Distress [] Loneliness/isolation [] Abandonment Spirituality of Patient [] Person of Vivian [] Attends Baptism of their Vivian [] Believes in Prayer [] Reads Bible or Church materials [] There are Spiritual issues to be addressed Dye Colorist Formulator Interventions [] Prayer [] Active listening [] Non-anxious presence [] Spiritual/emotional support [] Crisis/trauma care [] Spiritual counseling [] Bereavement support [] Provided bereavement packet [] Provided Bible/devotional materials [] Provided toy/stuffed animal, coloring book to patient or family member [] Provided Communion [] Anointing/[place] [] Salvation [] Completed spiritual assessment [] Other: Impact on Illness or Injury [] Angry [] Fearful [] Anxious [] Often cries [] Exhaustion [] Unable to work [] Unable to attend taoist [] Unable to walk/stand [] Unable to read [] Unable to drive [] Unable to eat/drink [] Unable to sleep [] Unable to be with family [] Patient intubated [] Other: Summary 2 family members were present with patient. Patient was asleep. Family members did not want her, or themselves, disturbed at that time. They were concerned about patient but did not want a horseradish grinder visit until maybe another day. Time spent with patient 1 minute
[2022-01-21 13:55] LABS: SARS Covid-2 Antigen Negative (Negative)
[2022-01-21] MEDS: warfarin 3 mg Tablet PO (16:28)
== END 2022-01-21 16:55 | disposition skilled nursing facility (03) ==
LOC: ER 16:23 → MEDSURG 17:33
PROVIDERS: Admitting Provider Internal Medicine; Emergency Provider Emergency Medicine; PCP Family Medicine; Visit Provider Internal Medicine
DX: N39.0 Urinary tract infection, site not specified (principal); R41.82 Altered mental status, unspecified; D61.818 Other pancytopenia; Z95.2 Presence of prosthetic heart valve; I48.11 Longstanding persistent atrial fibrillation; J96.12 Chronic respiratory failure with hypercapnia; K22.2 Esophageal obstruction; K21.9 Gastro-esophageal reflux disease without esophagitis; I51.7 Cardiomegaly; Z66 Do not resuscitate; I48.91 Unspecified atrial fibrillation; I25.10 Atherosclerotic heart disease of native coronary artery without angina pectoris; F32.9 Major depressive disorder, single episode, unspecified; I50.30 Unspecified diastolic (congestive) heart failure; I11.0 Hypertensive heart disease with heart failure; E03.9 Hypothyroidism, unspecified; G20 Parkinson's disease; G47.33 Obstructive sleep apnea (adult) (pediatric); Z83.3 Family history of diabetes mellitus; Z82.49 Family history of ischemic heart disease and other diseases of the circulatory system; Z99.81 Dependence on supplemental oxygen
CPT/HCPCS: 36415; 36416; 36600; 51701; 70450; 71045; 80048; 80053; 81001; 82803; 82962; 83880; 84145; 84484; 85025; 85610; 86140; 87040; 87077; 87086; 87186; 87426; 93005; 94640; 94660; 96365; 96367; 99291; G0378; J0696; J7030

== ENCOUNTER → 2022-01-31 09:52 | Outpatient (BNVA) | payer MEDICARE, MEDICAID, SELFPAY | PROVIDERS: PCP Family Medicine; Visit Provider Nurse Practitioner Family | DX: I50.32 Chronic diastolic (congestive) heart failure (principal); I48.11 Longstanding persistent atrial fibrillation; Z95.2 Presence of prosthetic heart valve | CPT/HCPCS: 99214 ==

== ENCOUNTER → 2022-02-15 14:02 | Outpatient (BNVA) | payer MEDICARE, MEDICAID, SELFPAY | PROVIDERS: PCP Family Medicine; Visit Provider Internal Medicine Critical Care Medicine | DX: J98.4 Other disorders of lung (principal); I27.20 Pulmonary hypertension, unspecified; I50.32 Chronic diastolic (congestive) heart failure; J96.12 Chronic respiratory failure with hypercapnia; Z87.891 Personal history of nicotine dependence; I50.9 Heart failure, unspecified; F32.A Depression, unspecified; K21.9 Gastro-esophageal reflux disease without esophagitis; I10 Essential (primary) hypertension; E87.0 Hyperosmolality and hypernatremia; D64.9 Anemia, unspecified | CPT/HCPCS: 99213 ==

== ENCOUNTER → 2022-03-03 10:58 | Day surgery (SDC) | payer MEDICARE, MEDICAID, SELFPAY ==
[2022-03-03 11:25] VITALS: BP 120/33; PULSE 57; RESP 18; TEMP 36.6; O2SAT 99
[2022-03-03] MEDS: ferric carboxy (IVPB) 750 MG in sodium chloride 0.9% (100 ml) 100 ML 345 MG IV (11:28)
== END ==
PROVIDERS: PCP Family Medicine; Visit Provider Internal Medicine
DX: D64.9 Anemia, unspecified (principal)
CPT/HCPCS: 96365; J1439

== ENCOUNTER → 2022-03-09 08:38 | Outpatient (BNVA) | payer MEDICARE, MEDICAID, SELFPAY | PROVIDERS: PCP Family Medicine; Visit Provider Orthopaedic Surgery | DX: Z87.891 Personal history of nicotine dependence (principal); Z98.890 Other specified postprocedural states; Z87.81 Personal history of (healed) traumatic fracture | CPT/HCPCS: 99212 ==

== ENCOUNTER 2022-03-12 15:26 | Emergency (ER) | payer MEDICARE, MEDICAID, SELFPAY ==
[2022-03-12 15:29] VITALS: PULSE 65; RESP 28; TEMP 36.8; O2SAT 96; BMI 23.2
--- NOTE | 2022-03-12 15:29 | ED_ITS ---
HPI - SOB/Dyspnea General: Chief Complaint: Shortness of Breath/Dyspnea Stated Complaint: LOW O2 SATS Time Seen by Provider: 03/12/22 15:29 Limitations: altered mental status History of Present Illness: HPI Narrative: Ms. Kirk is an 81-year-old lady with complex past medical history including chronic hypoxic respiratory failure with multiple hospitalizations for acute exacerbation presenting to the emergency department due to shortness of breath and altered mental status. Patient does provide limited history though no focal neurologic deficits are appreciated. She apparently had oxygen saturations in the 70s this morning, she tried breathing treatments, Trelegy, and finally BiPAP however oxygen saturations only increased to mid 80s. EMS found the patient to be hypoxic and placed on supplemental oxygen. EMS gave DuoNeb and 6 mg Decadron with some improvement. Intensity of symptoms at worst was moderate to severe. Course persisted however is now improved. Pertinent past history: COPD Onset (ago): hour(s) Timing: progressively worsening Severity: moderate Treatment prior to arrival: oxygen, bronchodilator and NIPPV Review of Systems General: Reports: ROS unobtainable due to mental status PFSH ED PFSH: Medical History Acute and chronic respiratory failure with hypercapnia Acute and chronic respiratory failure with hypercapnia Acute encephalopathy Acute exacerbation of chronic obstructive airways disease Acute exacerbation of COPD with asthma Acute metabolic encephalopathy Acute on chronic respiratory failure with hypoxia and hypercapnia Afib Anemia -baseline Hg around 9-10 -follow with Dr Bullock Anemia Anemia Atrial fibrillation CAD (coronary artery disease) CHF (congestive heart failure) Chronic anticoagulation Due to mechanical mitral valve; coumadin Chronic anticoagulation Chronic hypercapnic respiratory failure Complicated urinary tract infection Congestive heart failure COPD (chronic obstructive pulmonary disease) COPD (chronic obstructive pulmonary disease) Depression Diastolic CHF GERD (gastroesophageal reflux disease) PPI Heart failure HTN (hypertension) Hypernatremia Hypothyroidism -continue levothyroxine Iron deficiency anemia Has required transfusion in past, last egd and colonoscopy ~2017 with diverticulosis and internal hemorrhoids, SONYA (obstructive sleep apnea) Pancytopenia Parkinson disease Follows up with Dr. Rain[place] in [place] Pulmonary hypertension Respiratory failure with hypoxia and hypercapnia Restrictive lung disease Schatzki's ring Subtherapeutic international normalized ratio (INR) Transient neurological symptoms UTI (urinary tract infection) Weakness Surgical History H/O mitral valve replacement with mechanical valve History of bilateral tubal ligation History of cholecystectomy History of total knee arthroplasty Left Mitral valve replaced Mechanical, on coumadin Family History Mother CAD (coronary artery disease) Diabetes Other Hypertension Social History Smoking and tobacco status: former smoker Quit status (tobacco): has quit using tobacco Year quit tobacco: 1994 PPD x 15 Years Second hand smoke exposure: No Smoking risk assessment/counseling performed?: No Alcohol intake: never Counseling given: No Counseling given: No Caregiver/support person: Yes Household members: spouse and children Housing: House Marital status: Current occupational status: retired and disabled History of recent travel: No Current gender identity: Female Physical Exam Const: COMMON NORMALS: alert GENERAL APPEARANCE: cooperative and well developed HENMT: COMMON NORMALS: normocephalic and atraumatic HEAD & SCALP: normocephalic and atraumatic Eye: COMMON NORMALS: conjunctivae normal CONJUNCTIVA: Yes conjunctivae normal SCLERA: sclerae normal Neck/C-Spine: COMMON NORMALS: supple GENERAL: Yes trachea midline Resp: EFFORT & INSPECTION: Yes able to speak in complete sentences AUSCULTATION: rhonchi (Bilateral bases), wheezes (Trace) and diminished lung sounds Cardio: COMMON NORMALS: regular rate and regular rhythm RATE: regular rate RHYTHM: regular rhythm GI: COMMON NORMALS: Soft to palpation PALPATION: Yes Soft to palpation and No Tenderness to palpation present (GI) PERCUSSION: normal to percussion Extremity: GENERAL: Yes normal exam except as noted and No edema Neuro: COMMON NORMALS: moves all extremities SENSORIUM/ORIENTATION: Yes alert and No Orientation impaired Psych: COMMON NORMALS: mental status grossly normal and Normal thought process present THOUGHT PROCESS: Normal thought process present Skin: NARRATIVE SKIN EXAM: Significant circumferential skin changes consistent with chronic vascular disease about both ankles. No significant edema. Distal pulses, coordination normal. Course ED course: - Patient was seen and evaluated by me at bedside - Patient placed on cardiac monitors, IV access obtained - Initial evaluation notable for exam as above. - Labs and xrays personally interpreted by me. EKG with sinus rhythm with nonspecific ST segment abnormalities. Occasional ectopy. No STEMI. - Additional RT treatment ordered. Antibiotic for COPD exacerbation ordered. Patient received steroids by EMS. - Labs notable for no leukocytosis, near baseline macrocytic anemia. Metabolic panel with similar findings to prior, mild hypokalemia with replenishment ordered. Delta troponin negative. BNP only mildly elevated. ABG with compensated chronic hypercapnia - Imaging notable for negative head CT. Chest x-ray without lobar consolidation or pneumothorax. - Upon serial reexamination after treatment the patient was improved with resolution of mental status change, I believe that this is likely secondary to improvement in respiratory status. - Based on patient history, evaluation, and testing as interpreted the most likely cause of the patient's condition is exacerbation of COPD. I did clarify the events by speaking to patient's nurse. Apparently, although she has inhalers ordered, she has not had them for a number of months. They ordered as needed and so they were not attempted as the patient did not specifically ask for them when she was in respiratory distress. I believe that she would have had improvement had she been administered her albuterol and therefore will be treated for COPD exacerbation with clarification of desire for routine use of albuterol. - The results of ED evaluation were discussed with the patient including prescriptions and/or symptomatic cares (if applicable) including appropriate and responsible use, followup plan, and return precautions. The patient verbalized understanding and felt safe for discharge. - Patient discharged in satisfactory condition. Note: Click bubbles or prepopulated mckeon in note writing are used for assistance with data collection and billing and are inherently more limited than narrative and other text portions of this note. Please use narrative for additional clinic al history and defer to narrative/free test for any case of contradictory information. If information appears in only free text or click bubble it should be considered present or absent as reported. Please contact note scenario writer for clarifications of clinical information or contradictory information. MDM is a brief summary, contradictory or erroneous seeming information should be clarified and full note should be reviewed. Vital Signs: Vital signs: Vital Signs Temperature 98.3 F 03/12/22 15:29 Pulse Rate 60 03/12/22 18:28 Respiratory Rate 26 H 03/12/22 18:28 Blood Pressure 118/51 03/12/22 18:28 Pulse Oximetry 99 03/12/22 18:28 MDM - SOB/Dyspnea Medical Decision Making 81-year-old lady with complex past medical history including COPD with frequent exacerbation presenting due to worsening respiratory status. Patient had fairly significant improvement with RT treatment and EMS treatment prior to arrival. Overall labs similar to baseline. Upon clarification patient essentially never gets as needed albuterol at her nursing facility like she should. Satisfactory for discharge with clarification of these instructions and treatment for COPD exacerbation. Patient to return to nursing facility. Medical Records I reviewed the patient's medical records. Lab Data I reviewed the patient's lab results. : 03/12/22 15:47 03/12/22 15:47 Labs/Radiology: Radiology Impressions Chest X-Ray 03/12/22 15:40 IMPRESSION: Stable exam, no acute findings. Head CT 03/12/22 16:09 IMPRESSION: 1. No acute intracranial abnormality. 2. Left mastoid effusion. Laboratory Results WBC 4.1 10^3/uL (4.0-10.0) 03/12/22 15:47 RBC 3.19 10^6/uL (4.1-5.3) L 03/12/22 15:47 Hgb 9.4 g/dL (11.5-15.3) L 03/12/22 15:47 Hct 31.8 % (37.0-47.0) L 03/12/22 15:47 MCV 99.7 fl (81-99) H 03/12/22 15:47 MCH 29.5 pg (28.0-34.0) 03/12/22 15:47 MCHC 29.6 g/dL (30.0-36.0) L 03/12/22 15:47 RDW 14.8 % (12.1-15.1) 03/12/22 15:47 Plt Count 129 10^3/cmm (130-400) L 03/12/22 15:47 MPV 10.5 fL (7.4-10.4) H 03/12/22 15:47 Neut % (Auto) 65.9 % 03/12/22 15:47 Lymph % (Auto) 21.1 % 03/12/22 15:47 [place] % (Auto) 10.6 % 03/12/22 15:47 Eos % (Auto) 1.5 % 03/12/22 15:47 Baso % (Auto) 0.7 % 03/12/22 15:47 Neut # (Auto) 2.68 10^3/uL (1.8-7.7) 03/12/22 15:47 Lymph # (Auto) 0.9 10^3/uL (0.8-4.8) 03/12/22 15:47 [place] # (Auto) 0.4 10^3/uL (0.2-0.9) 03/12/22 15:47 Eos # (Auto) 0.1 10^3/uL (0.0-0.8) 03/12/22 15:47 Baso # (Auto) 0.0 10^3/uL (0.0-0.1) 03/12/22 15:47 Nucleated RBC % (auto) 0 % 03/12/22 15:47 Nucleated RBCs # 0.0 /100WBC 03/12/22 15:47 Specimen Type Arterial 03/12/22 15:55 Sample Site Radial, left 03/12/22 15:55 ABG pH 7.38 (7.35-7.45) 03/12/22 15:55 ABG pCO2 68.1 mmHg (35-45) H* 03/12/22 15:55 ABG pO2 109.0 mmHg (80.0-100.0) H 03/12/22 15:55 ABG HCO3 40.4 mmol/L (22-26) H 03/12/22 15:55 ABG Base Excess 13.4 mmol/L (-2.0-2.0) H 03/12/22 15:55 César Test Pos 03/12/22 15:55 Hematocrit 27.0 % (37-47) L 03/12/22 15:55 O2 Delivery Device Nc 03/12/22 15:55 O2 Liters/Min 2.0 % 03/12/22 15:55 Examination Supervisor ID Osei 03/12/22 15:55 Sodium 146 mmol/L (136-145) H 03/12/22 15:47 Potassium 3.3 mmol/L (3.5-5.1) L 03/12/22 15:47 Chloride 99 mmol/L (98-107) 03/12/22 15:47 Carbon Dioxide 38 mmol/L (22-29) H 03/12/22 15:47 Anion Gap 12.3 (5-19) 03/12/22 15:47 BUN 15 mg/dL (8-23) 03/12/22 15:47 Creatinine 0.8 mg/dL (0.5-0.9) 03/12/22 15:47 GFR Calculation Not Reportable 03/12/22 15:47 Glucose 119 mg/dL (65-115) H 03/12/22 15:47 Calculated Osmolality 304 mOsm/kg (285-295) H 03/12/22 15:47 Lactate 1.4 mmol/L (0.5-2.2) 03/12/22 14:03 Calcium 8.3 mg/dL (8.5-10.5) L 03/12/22 15:47 Total Bilirubin 1.1 mg/dL (0.15-1.2) 03/12/22 15:47 AST 11 U/L (0-32) 03/12/22 15:47 ALT 7 U/L (0-33) 03/12/22 15:47 Alkaline Phosphatase 94 IU/L (35-105) 03/12/22 15:47 Troponin T Baseline 27 ng/L (0-10) H 03/12/22 15:47 Troponin T 120 Minute 25.61 ng/L (0-10) H 03/12/22 17:38 Delta Troponin T -1.39 ABS# (0-10) L 03/12/22 17:38 NT-Pro-B Natriuret Pep 702 pg/mL (0-450) H 03/12/22 15:47 Total Protein 6.9 g/dL (6.6-8.7) 03/12/22 15:47 Albumin 4.0 g/dL (3.5-5.2) 03/12/22 15:47 Globulin 2.9 g/dL (1.3-4.6) 03/12/22 15:47 Procalcitonin 0.03 ng/mL (0-0.5) 03/12/22 15:47 Discharge Plan Discharge Patient Disposition: Home Clinical Impression: Acute exacerbation of chronic obstructive airways disease Condition: Stable Prescriptions: New albuterol sulfate 90 mcg/actuation HFA aerosol inhaler 2 inh inhalation BID Qty: 8.5 2RF doxycycline hyclate 100 mg tablet 100 mg PO Q12H 10 Days Qty: 20 0RF No Action tolterodine 2 mg tablet 2 mg PO BID@,21 0RF lisinopril 2.5 mg tablet 2.5 mg PO DAILY Qty: 30 6RF nitroglycerin 0.4 mg Tablet, Sublingual 0.4 mg SUBLINGUAL Q5M PRN (Reason: Chest Pain) 0RF rosuvastatin 10 mg tablet 10 mg PO DAILY@2100 0RF fluticasone propion-salmeterol [Advair Diskus] 250-50 mcg/dose blister with device 1 inh inhalation BID@0900,2100 0RF polyethylene glycol 3350 [Miralax] 17 gram powder in packet 17 g PO DAILY PRN (Reason: Constipation) 0RF albuterol sulfate 90 mcg/actuation Hfa Aerosol Inhaler 2 inh INHALATION Q6H PRN (Reason: Shortness Of Breath) 0RF acetaminophen [Tylenol] 325 mg Tablet 650 mg PO Q4H PRN (Reason: Pain) 0RF levothyroxine 50 mcg tablet 50 mcg PO QAM 0RF carvedilol 6.25 mg tablet 6.25 mg PO BID 0RF warfarin 3 mg Tablet See Rx Instructions mg .ROUTE .COMPLEX 0RF Protocol: Dose Management Condition: Monday Dose/Route: 3 mg Instruction: 1 x 3 mg tablet Condition: Monday Dose/Route: 3 mg Instruction: 1 x 3 mg tablet Condition: Monday Dose/Route: 3 mg Instruction: 1 x 3 mg tablet Condition: Monday Dose/Route: 3 mg Instruction: 1 x 3 mg tablet Condition: Dose/Route: 3 mg Instruction: 1 x 3 mg tablet Condition: Monday Dose/Route: 3 mg Instruction: 1 x 3 mg tablet Condition: Monday Dose/Route: 3 mg Instruction: 1 x 3 mg tablet Protocol Text: Adjustment Start Date: 01/20/22 INR Value: 2.1 INR Date: 01/17/22 Recheck Date: 01/27/22 Rx Instructions: 3mg po daily@15:30 on ,mon, ,mon,sat and sun 4mg po daily@15:30 on mon carbidopa-levodopa 10-100 mg tablet 1 tab PO TID 0RF cholecalciferol (vitamin D3) [Vitamin D3] 125 mcg (5,000 unit) Tablet 125 mcg PO DAILY 0RF bumetanide 2 mg tablet 2 mg PO DAILY 0RF Hold Instructions: Resume on 12/15/21. follow up with cardiology prior to resuming. potassium chloride [Klor-Con 10] 10 mEq tablet extended release 20 meq PO DAILY 0RF ferrous gluconate 324 mg (37.5 mg iron) tablet 324 mg PO BID@, 0RF sennosides-docusate sodium 8.6-50 mg tablet 1 tab PO BID 0RF pantoprazole 40 mg tablet,delayed release (DR/EC) 40 mg PO DAILY 0RF isosorbide mononitrate 30 mg Tablet Extended Release 24 Hr 15 mg PO DAILY Qty: 0 0RF citalopram 10 mg Tablet 10 mg PO DAILY 0RF Milk of Magnesia 400 mg/5 mL Suspension 30 ml PO DAILY PRN (Reason: Constipation) 0RF bisacodyl 10 mg Suppository 10 mg MA DAILY PRN (Reason: Constipation) 0RF Fleet Enema 19-7 gram/118 mL Enema 118 ml MA DAILY PRN (Reason: Constipation) 0RF Ventolin HFA 90 mcg/actuation HFA aerosol inhaler 2 inh inhalation Q6H PRN (Reason: shortness of breath or wheezing) 0RF Discharge Orders: Discharge ED (Routine); Ordered 03/12/22 Ordered By: Shon Dunn Referrals: Michael Hampton, [Primary Care Provider] - Discharge Diet: Usual diet Discharge Activity: Increase activity as tolerated Patient Instructions: COPD (Chronic Obstructive Pulmonary Disease) (ED), Chronic Lung Disease and Infection Prevention (ED) Activity Restrictions/Additional Instructions: Thank you for visiting the emergency department. You were seen and evaluated for shortness of breath and respiratory distress. This was markedly improved with breathing treatments. I believe that the cause of your symptoms is exacerbation of underlying COPD. I will give you a prescription for antibiotics and steroids. In addition for the next 24 hours please use your albuterol inhaler 2 puffs every 4 hours For the 24 hours after that please use your albuterol inhaler 2 puffs every 6 hours For the 24 hours after that please use your albuterol inhaler 2 puffs every 8 hours. Then please modify the as needed order for albuterol. You may continue to use albuterol 2 puffs every 6 hours as needed however please use this at minimum twice daily. Please continue all your other medications as prescribed. Please follow-up with your primary care provider. Please return to the emergency department for worsening symptoms or anything else that you are concerned about and feel needs emergency department evaluation. Coding Level of Care Code ED Manager Drug Safety for Chg Fwd Exam Comprehensive
--- NOTE | 2022-03-12 15:40 | XRR_ITS ---
PROCEDURE INFORMATION: Exam: XR Chest Exam date and time: 03/12/2022 4:10 PM Age: 81 years old Clinical indication: Shortness of breath; Additional info: SOB TECHNIQUE: Imaging protocol: XR of the chest. Views: 1 view. COMPARISON: CR XR chest 1V portable [id number] 01/20/2022 2:13 PM FINDINGS: Lungs: Mild diffuse coarsening of the lung parenchyma. Hyperinflation of the lungs. No consolidation. Pleural spaces: No pleural effusion. No pneumothorax. Heart/Mediastinum: Stable cardiomegaly. Cardiac valve replacement again noted. Bones/joints: Sternotomy wires noted. Visualized osseous structures are intact. XR/XR chest 1V portable [id number] IMPRESSION: Stable exam, no acute findings.
--- NOTE | 2022-03-12 15:41 | ECG_ITS ---
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 Measurements Intervals [place] Rate: 64 P: 240 [place]: 185 QRS: 47 QRSD: 108 T: 26 QT: 442 QTc: 458 Interpretive Statements SINUS RHYTHM WITH OCCASIONAL VENTRICULAR PREMATURE COMPLEXES Compared to ECG 01/20/2022 19:33:52 Ventricular premature complex(es) now present First degree AV block no longer present T-wave abnormality no longer present Electronically Signed On 03-13-2022 13:26:12 CDT by Tere Teixeira M.D. [id number]
[2022-03-12 16:00] LABS: Basophils % 0.7 %; Eosinophils # 0.1 10^3/uL (0.0-0.8); Eosinophils % 1.5 %; Hematocrit 31.8 % (37.0-47.0); Hemoglobin 9.4 g/dL (11.5-15.3); Lymphocytes # 0.9 10^3/uL (0.8-4.8); Lymphocytes % 21.1 %; Mean Corpuscular HGB Conc 29.6 g/dL (30.0-36.0); Mean Corpuscular Hemoglobin 29.5 pg (28.0-34.0); Mean Corpuscular Volume 99.7 fl (81-99); Mean Platelet Volume 10.5 fL (7.4-10.4); Monocytes # 0.4 10^3/uL (0.2-0.9); Monocytes % 10.6 %; Neutrophils # 2.68 10^3/uL (1.8-7.7); Neutrophils % 65.9 %; Nucleated Red Blood Cells % 0 %; Platelet Count 129 10^3/cmm (130-400); Red Blood Count 3.19 10^6/uL (4.1-5.3); Red Cell Distribution Width 14.8 % (12.1-15.1); White Blood Count 4.1 10^3/uL (4.0-10.0)
[2022-03-12 16:04] LABS: ABG PH Result 7.38 (7.35-7.45); Base Excess ABG 13.4 mmol/L (-2.0-2.0); Blood Gas Allen Test Pos; Blood Gas Sample Site Radial, left; Blood Gas Sample Type Arterial; HCO3 ABG 40.4 mmol/L (22-26); Oxygen Device NC
[2022-03-12 16:07] LABS: ABG PCO2 68.1 mmHg (35-45)
--- NOTE | 2022-03-12 16:09 | CTR_ITS ---
PROCEDURE INFORMATION: Exam: CT Head Without Contrast Exam date and time: 03/12/2022 4:37 PM Age: 81 years old Clinical indication: Other: Confusion TECHNIQUE: Imaging protocol: Computed tomography of the head without contrast. Radiation optimization: All CT scans at this facility use at least one of these dose optimization techniques: automated exposure control; mA and/or kV adjustment per patient size (includes targeted exams where dose is matched to clinical indication); or iterative reconstruction. COMPARISON: CT head wo con* [id number] 01/20/2022 2:08 PM RADIATION DOSE METRICS: Total DLP (mGy-cm): 901.78 FINDINGS: Brain: No hemorrhage. No edema. No significant white matter disease. No mass effect. Cerebral ventricles: No ventriculomegaly. Paranasal sinuses: Visualized sinuses are unremarkable. No fluid levels. Mastoid air cells: Left mastoid effusion. The right mastoid air cells are well pneumatized. Bones/joints: Unremarkable. No acute fracture. Soft tissues: Unremarkable. CT/CT head wo con* [id number] IMPRESSION: 1. No acute intracranial abnormality. 2. Left mastoid effusion.
[2022-03-12 16:21] LABS: Troponin(5th) Baseline 27 ng/L (0-10)
[2022-03-12 16:24] LABS: Lactate (Lactic Acid level) 1.4 mmol/L (0.5-2.2)
[2022-03-12 16:28] LABS: NT Pro B Type Natriuretic Pept 702 pg/mL (0-450); Procalcitonin 0.03 ng/mL (0-0.5)
[2022-03-12 16:39] LABS: Alanine Aminotransferase 7 U/L (0-33); Alkaline Phosphatase 94 IU/L (35-105); Anion Gap 12.3 (5-19); Aspartate Amino Transferase 11 U/L (0-32); Blood Urea Nitrogen 15 mg/dL (8-23); Calcium 8.3 mg/dL (8.5-10.5); Carbon Dioxide 38 mmol/L (22-29); Chloride 99 mmol/L (98-107); Globulin 2.9 g/dL (1.3-4.6); Glucose 119 mg/dL (65-115); Osmolality Calculated 304 mOsm/kg (285-295); Potassium 3.3 mmol/L (3.5-5.1); Sodium 146 mmol/L (136-145); Total Bilirubin 1.1 mg/dL (0.15-1.2); Total Protein 6.9 g/dL (6.6-8.7)
[2022-03-12 17:00] VITALS: PULSE 61; RESP 20; O2SAT 99
[2022-03-12 17:06] VITALS: PULSE 60
--- NOTE | 2022-03-12 17:41 | ECG_ITS ---
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 Measurements Intervals [place] Rate: 59 P: 262 PA: 196 QRS: 52 QRSD: 110 T: 48 QT: 464 QTc: 461 Interpretive Statements SINUS BRADYCARDIA Compared to ECG 03/12/2022 15:57:39 Sinus rhythm no longer present Ventricular premature complex(es) no longer present Electronically Signed On 03-13-2022 13:29:02 CDT by Tere Teixeira M.D. [id number]
[2022-03-12 18:01] VITALS: PULSE 63; RESP 16; O2SAT 98
[2022-03-12 18:09] VITALS: PULSE 60
[2022-03-12 18:12] LABS: Troponin 5 2HR 25.61 ng/L (0-10)
[2022-03-12 18:20] LABS: Troponin 5 2HR Delta -1.39 ABS# (0-10)
[2022-03-12 18:28] VITALS: BP 118/51; PULSE 60; RESP 26; O2SAT 99
[2022-03-12] MEDS: potassium chloride ER 20 mEq Tablet 40 MEQ PO (18:43)
[2022-03-12] MEDS: doxycycline 100 mg Tablet PO (20:06)
== END 2022-03-12 21:28 | disposition home or self-care (01) ==
PROVIDERS: Emergency Provider Emergency Medicine; PCP Family Medicine
DX: J44.1 Chronic obstructive pulmonary disease with (acute) exacerbation (principal); I25.10 Atherosclerotic heart disease of native coronary artery without angina pectoris; I11.0 Hypertensive heart disease with heart failure; I50.9 Heart failure, unspecified; Z87.891 Personal history of nicotine dependence
CPT/HCPCS: 36600; 70450; 71045; 80053; 82803; 83605; 83880; 84145; 84484; 85025; 93005; 94640; 99285; J7611

== ENCOUNTER → 2022-03-17 11:04 | Day surgery (SDC) | payer MEDICARE, MEDICAID, SELFPAY ==
[2022-03-17] MEDS: ferric carboxy (IVPB) 750 MG in sodium chloride 0.9% (100 ml) 100 ML 345 MG IV (11:15)
[2022-03-17 11:33] VITALS: BP 108/59; PULSE 58; RESP 18; TEMP 37.1; O2SAT 98
== END ==
PROVIDERS: PCP Family Medicine; Visit Provider Internal Medicine
DX: D64.9 Anemia, unspecified (principal)
CPT/HCPCS: 96365; J1439

== ENCOUNTER → 2022-05-18 15:09 | Outpatient (BNVA) | payer MEDICARE, MEDICAID, SELFPAY | PROVIDERS: PCP Family Medicine; Visit Provider Internal Medicine | DX: I11.0 Hypertensive heart disease with heart failure (principal); I50.32 Chronic diastolic (congestive) heart failure; I48.11 Longstanding persistent atrial fibrillation; Z95.2 Presence of prosthetic heart valve | CPT/HCPCS: 99214 ==

== ENCOUNTER → 2022-06-17 09:43 | Outpatient (BNVA) | payer MEDICARE, MEDICAID, SELFPAY | PROVIDERS: PCP Family Medicine; Visit Provider Internal Medicine Critical Care Medicine | DX: J98.4 Other disorders of lung (principal); J96.12 Chronic respiratory failure with hypercapnia; I27.20 Pulmonary hypertension, unspecified; I50.32 Chronic diastolic (congestive) heart failure; I48.21 Permanent atrial fibrillation; Z87.891 Personal history of nicotine dependence; Z95.4 Presence of other heart-valve replacement | CPT/HCPCS: 99213; 99214 ==

== ENCOUNTER 2022-06-26 08:59 | Inpatient (IN) | payer MEDICARE, MEDICAID, SELFPAY ==
[2022-06-26] VITALS (16 sets, daily range): BP systolic 142–172; BP diastolic 43–71; PULSE 60–78; RESP 18–32; TEMP 36.3–37.1; O2SAT 88–99; BMI 23.8; BMI 26.3
--- NOTE | 2022-06-26 09:07 | XRR_ITS ---
PROCEDURE INFORMATION: Exam: XR Chest Exam date and time: 06/26/2022 9:27 AM Age: 81 years old Clinical indication: Dyspnea TECHNIQUE: Imaging protocol: Radiologic exam of the chest. Views: 1 view. COMPARISON: CR (CHEST, ) 03/12/2022 4:10 PM FINDINGS: Lungs: There are normal lung volumes. Age-related interstitial prominence is seen in the lungs. Mild left basilar atelectasis/interstitial opacities are seen. Early pneumonia cannot be excluded. Recommend follow-up. Pleural spaces: Possible tiny pleural effusions. No pneumothorax. Heart/Mediastinum: She there is unchanged mild cardiomegaly. The patient is status post median sternotomy with sternal wires. The patient is status post prior mitral annuloplasty. There is a mildly tortuous thoracic aorta. The trachea is in the midline. Bones/joints: No acute abnormalities. There is generalized osteopenia. XR/XR chest 1V portable [id number] IMPRESSION: 1. Mild left basilar atelectasis/interstitial opacities. 2. Mild cardiomegaly.
--- NOTE | 2022-06-26 09:08 | ECG_ITS ---
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 Measurements Intervals [place] Rate: 69 P: [place]: QRS: 40 QRSD: 110 T: 8 QT: 440 QTc: 475 Interpretive Statements ATRIAL FIBRILLATION versus a wandering atrial pacemaker MINIMAL ST DEPRESSION [0.025+ mV ST DEPRESSION] ABNORMAL RHYTHM ECG Compared to ECG 03/12/2022 17:46:49 ST (T wave) deviation now present Sinus bradycardia no longer present Electronically Signed On 06-26-2022 18:11:31 CDT by Louis Harman M.D. [id number]
--- NOTE | 2022-06-26 09:20 | W.ED.SOB ---
HPI - SOB/Dyspnea General: Chief Complaint: Shortness of Breath/Dyspnea Stated Complaint: SOB Time Seen by Provider: 06/26/22 09:06 History of Present Illness: HPI Narrative: This patient is an 81 year old female from a [facility] ent for SOB and decreased mental status. The patient answers yes and no questions only for me. She has a history of open heart surgery, CHF, COPD. She is on home oxygen normally. She arrives by EMS today with 4 liters NC and has a sat of 90%. She also has parkinson's. She is not able to provide any detailed history today. She denies chest pain. Daughter later provided further history - patient has had worsening shortness of breath for a few days. She uses a trilogy/CPAP at the [facility] and probably used it last night - per daughter. MD elicited complaint: shortness of breath Pertinent past history: COPD, congestive heart failure and pneumonia Severity: severe Known history of: COPD and congestive heart failure Review of Systems General: Reports: ROS unobtainable due to medical condition PFSH ED PFSH: Medical History Acute and chronic respiratory failure with hypercapnia Acute and chronic respiratory failure with hypercapnia Acute encephalopathy Acute exacerbation of chronic obstructive airways disease Acute exacerbation of COPD with asthma Acute metabolic encephalopathy Acute on chronic respiratory failure with hypoxia and hypercapnia Afib Anemia -baseline Hg around 9-10 -follow with Dr Bullock Anemia Anemia Atrial fibrillation CAD (coronary artery disease) CHF (congestive heart failure) Chronic anticoagulation Due to mechanical mitral valve; coumadin Chronic anticoagulation Chronic hypercapnic respiratory failure Complicated urinary tract infection Congestive heart failure COPD (chronic obstructive pulmonary disease) COPD (chronic obstructive pulmonary disease) Depression Diastolic CHF GERD (gastroesophageal reflux disease) PPI Heart failure HTN (hypertension) Hypernatremia Hypothyroidism -continue levothyroxine Iron deficiency anemia Has required transfusion in past, last egd and colonoscopy ~2017 with diverticulosis and internal hemorrhoids, OSNYA (obstructive sleep apnea) Pancytopenia Parkinson disease Follows up with Dr. Rainey in [place] Pulmonary hypertension Respiratory failure with hypoxia and hypercapnia Restrictive lung disease Schatzki's ring Subtherapeutic international normalized ratio (INR) Transient neurological symptoms UTI (urinary tract infection) Weakness Surgical History H/O mitral valve replacement with mechanical valve History of bilateral tubal ligation History of cholecystectomy History of total knee arthroplasty Left Mitral valve replaced Mechanical, on coumadin Family History Mother CAD (coronary artery disease) Diabetes Other Hypertension Social History Smoking and tobacco status: former smoker Quit status (tobacco): has quit using tobacco Year quit tobacco: 1994 PPD x 15 Years Second hand smoke exposure: No Smoking risk assessment/counseling performed?: No Alcohol intake: never Counseling given: No Counseling given: No Caregiver/support person: Yes Household members: spouse and children Housing: House Marital status: Current occupational status: retired and disabled History of recent travel: No Current gender identity: Female Physical Exam Const: EXAM LIMITATIONS: altered mental status GENERAL APPEARANCE: in distress and ill appearing HENMT: HEAD & SCALP: normal to inspection FACE & SINUS: normal facial exam Eye: GENERAL EYE: appearance normal, both eyes and all related structures Neck/C-Spine: COMMON NORMALS: supple and no meningeal signs Chest: CHEST: Yes Symmetrical chest wall rise Resp: EFFORT & INSPECTION: Yes tachypneic, Yes respiratory distress, Yes labored and Yes retractions AUSCULTATION: rhonchi and bronchovesicular breath sounds Cardio: COMMON NORMALS: regular rate JUGULAR VENOUS DISTENTION: no JVD RATE: regular rate RHYTHM: abnormal rhythm irregularly irregular HEART SOUNDS: Murmur heart sound present (mechanical valve click) GI: COMMON NORMALS: Normal to inspection, nondistended, normoactive bowel sounds present, Soft to palpation and non-tender INSPECTION: Yes normal to inspection AUSCULTATION: Yes normoactive bowel sounds PALPATION: Yes Soft to palpation Back/Pelvis: COMMON NORMALS: thoracic and lumbar spine normal to inspection Neuro: COMMON NORMALS: moves all extremities, no focal motor deficits and no sensory deficits noted MENINGEAL SIGNS: Yes no meningeal signs Psych: COMMON NORMALS: mental status grossly normal, cooperative and normal affect Skin: NARRATIVE SKIN EXAM: woody venous stasis changes bilateral lower legs Course ED course: Patient with acidosis on ABG, elevated CO2 likely accounting for her mental status change. CXR with right upper lobe denisty on my reading, although not mentioned by radiologist. Suspect pneumonia. Also evidence of CHF on labs and physical exam. BiPap started in the ED with good improvement in her respiratory status. Blood cultures obtained and antibiotics started to cover potential pneumonia. She is hypernatremic. Diruetics will be started in the ED. COVID test is pending as well. She will require admission. Improved after being on bipap and diuresed. She opened her eyes to my voice and was able to converse a little bit. Discussed plan with patient daughter. Admit to the hospitalist. Vital Signs: Vital signs: Vital Signs Temperature 97.4 F L 06/26/22 09:10 Pulse Rate 74 06/26/22 13:40 Respiratory Rate 21 H 06/26/22 13:40 Blood Pressure 152/58 06/26/22 13:40 Pulse Oximetry 88 L 06/26/22 13:40 Oxygen Delivery Me thod 06/26/22 13:40 Oxygen Flow Rate 5 06/26/22 13:40 Fraction of Inspir ed Oxygen 40 06/26/22 11:59 MDM - SOB/Dyspnea Medical Decision Making Marked dyspnea, hypoxia on normal home oxygen. ABG with elevated CO2. History of COPD and CHF - also suspect pneumonia. BiPap with good improvement. She will be admitted for further diuresis and possibly continued treatment of pneumonia. BC sent and IV abx started in the ED. Medical Records Reviewed prior records with similar presentations - Lab Data : 06/26/22 08:47 06/26/22 08:47 Labs/Radiology: Radiology Impressions Chest X-Ray 06/26/22 09:07 IMPRESSION: 1. Mild left basilar atelectasis/interstitial opacities. 2. Mild cardiomegaly. Laboratory Results WBC 10.8 10^3/uL (4.0-10.0) H 06/26/22 08:47 RBC 4.04 10^6/uL (4.1-5.3) L 06/26/22 08:47 Hgb 12.2 g/dL (11.5-15.3) 06/26/22 08:47 Hct 41.0 % (37.0-47.0) 06/26/22 08:47 MCV 101.5 fl (81-99) H 06/26/22 08:47 MCH 30.2 pg (28.0-34.0) 06/26/22 08:47 MCHC 29.8 g/dL (30.0-36.0) L 06/26/22 08:47 RDW 13.6 % (12.1-15.1) 06/26/22 08:47 Plt Count 106 10^3/cmm (130-400) L 06/26/22 08:47 MPV 10.2 fL (7.4-10.4) 06/26/22 08:47 Neut % (Auto) 87.0 % 06/26/22 08:47 Lymph % (Auto) 6.2 % 06/26/22 08:47 [place] % (Auto) 6.3 % 06/26/22 08:47 Eos % (Auto) 0.0 % 06/26/22 08:47 Baso % (Auto) 0.3 % 06/26/22 08:47 Neut # (Auto) 9.36 10^3/uL (1.8-7.7) H 06/26/22 08:47 Lymph # (Auto) 0.7 10^3/uL (0.8-4.8) L 06/26/22 08:47 [place] # (Auto) 0.7 10^3/uL (0.2-0.9) 06/26/22 08:47 Eos # (Auto) 0.0 10^3/uL (0.0-0.8) 06/26/22 08:47 Baso # (Auto) 0.0 10^3/uL (0.0-0.1) 06/26/22 08:47 Nucleated RBC % (auto) 0 % 06/26/22 08:47 Nucleated RBCs # 0.0 /100WBC 06/26/22 08:47 PT 20.30 SECONDS (12.1-14.9) H 06/26/22 08:47 INR 1.70 (0.8-1.2) H 06/26/22 08:47 Specimen Type Arterial 06/26/22 09:18 Sample Site Radial, right 06/26/22 09:18 ABG pH 7.22 (7.35-7.45) L 06/26/22 09:18 ABG pCO2 88.7 mmHg (35-45) H* 06/26/22 09:18 ABG pO2 61.0 mmHg (80.0-100.0) L 06/26/22 09:18 ABG HCO3 36.5 mmol/L (22-26) H 06/26/22 09:18 ABG Base Excess 6.0 mmol/L (-2.0-2.0) H 06/26/22 09:18 César Test Pos 06/26/22 09:18 Hematocrit 37.4 % (37-47) 06/26/22 09:18 O2 Delivery Device Nc 06/26/22 09:18 O2 Liters/Min 5.0 % 06/26/22 09:18 FiO2 40.0 % 06/26/22 09:18 International Logistics Manager ID Amh 06/26/22 09:18 Sodium 146 mmol/L (136-145) H 06/26/22 08:47 Potassium 4.2 mmol/L (3.5-5.1) 06/26/22 08:47 Chloride 103 mmol/L (98-107) 06/26/22 08:47 Carbon Dioxide 35 mmol/L (22-29) H 06/26/22 08:47 Anion Gap 12.2 (5-19) 06/26/22 08:47 BUN 27 mg/dL (8-23) H 06/26/22 08:47 Creatinine 0.9 mg/dL (0.5-0.9) 06/26/22 08:47 GFR Calculation Not Reportable 06/26/22 08:47 Glucose 169 mg/dL (65-115) H 06/26/22 08:47 Calculated Osmolality 311 mOsm/kg (285-295) H 06/26/22 08:47 Lactic Acid 0.7 mmol/L (0.5-2.2) 06/26/22 09:23 Calcium 9.0 mg/dL (8.5-10.5) 06/26/22 08:47 Magnesium 2.7 mg/dL (1.7-2.3) H 06/26/22 08:47 Total Bilirubin 1.2 mg/dL (0.15-1.2) 06/26/22 08:47 AST 14 U/L (0-32) 06/26/22 08:47 ALT 10 U/L (0-33) 06/26/22 08:47 Alkaline Phosphatase 109 U/L (35-105) H 06/26/22 08:47 Troponin T Baseline 58 ng/L (0-10) H 06/26/22 08:47 Troponin T 120 Minute 70.77 ng/L (0-10) H 06/26/22 10:48 Delta Troponin T 12.77 ABS# (0-10) H* 06/26/22 10:48 NT-Pro-B Natriuret Pep 2877 pg/mL (0-450) H 06/26/22 08:47 Total Protein 7.1 g/dL (6.6-8.7) 06/26/22 08:47 Albumin 4.5 g/dL (3.5-5.2) 06/26/22 08:47 Globulin 2.6 g/dL (1.3-4.6) 06/26/22 08:47 Urine Color Yellow (Yellow) 06/26/22 09:54 Urine Appearance Clear (CLEAR) 06/26/22 09:54 Urine pH 5 (5-7) 06/26/22 09:54 Ur Specific [place] 1.025 (1.005-1.030) 06/26/22 09:54 Urine Protein 1+ (Negative) H 06/26/22 09:54 Urine Glucose (UA) Norm (Normal) 06/26/22 09:54 Urine Ketones 1+ (Negative) H 06/26/22 09:54 Urine Blood 3+ (Negative) H 06/26/22 09:54 Urine Nitrate Negative (Negative) 06/26/22 09:54 Urine Bilirubin 1+ (Negative) H 06/26/22 09:54 Urine Urobilinogen Norm mg/dL (Negative) 06/26/22 09:54 Ur Leukocyte Esterase Trace (Negative) H 06/26/22 09:54 Urine RBC 15-25 /hpf (0-2) H 06/26/22 09:54 Urine WBC 0-4 /hpf (0-5) H 06/26/22 09:54 Ur Squamous Epith Cells 0-4 /hpf (0-5) H 06/26/22 09:54 Amorphous Sediment Not Reportable 06/26/22 09:54 Urine Bacteria 1+ /hpf (NONE) H 06/26/22 09:54 Hyaline Casts 15-25 /lpf H 06/26/22 09:54 Urine Mucus 1+ /hpf 06/26/22 09:54 Coronavirus 229E (PCR) Not detected (NOT DETECT) 06/26/22 10:30 SARS-CoV-2 (PCR) Not detected (NOT DETECT) 06/26/22 10:30 Discharge Plan Discharge Patient Disposition: Admitted As Inpatient Clinical Impression: Acute and chronic respiratory failure with hypoxia, Hypoxemia, Afib, CHF (congestive heart failure), PNA (pneumonia), Hypercarbia, H/O mitral valve replacement with mechanical valve, Parkinson disease Condition: Stable Coding Level of Care Code ED Invertebrate Paleontologist for Norma Fwd Exam Comprehensive
[2022-06-26 09:25] LABS: Basophils % 0.3 %; Hemoglobin 12.2 g/dL (11.5-15.3); Lymphocytes # 0.7 10^3/uL (0.8-4.8); Lymphocytes % 6.2 %; Mean Corpuscular HGB Conc 29.8 g/dL (30.0-36.0); Mean Corpuscular Hemoglobin 30.2 pg (28.0-34.0); Mean Corpuscular Volume 101.5 fl (81-99); Mean Platelet Volume 10.2 fL (7.4-10.4); Monocytes # 0.7 10^3/uL (0.2-0.9); Monocytes % 6.3 %; Neutrophils # 9.36 10^3/uL (1.8-7.7); Nucleated Red Blood Cells % 0 %; Platelet Count 106 10^3/cmm (130-400); Red Blood Count 4.04 10^6/uL (4.1-5.3); Red Cell Distribution Width 13.6 % (12.1-15.1); White Blood Count 10.8 10^3/uL (4.0-10.0)
[2022-06-26 09:29] LABS: ABG PCO2 88.7 mmHg (35-45); ABG PH Result 7.22 (7.35-7.45); Arterial Blood Gas Hematocrit 37.4 % (37-47); Blood Gas Allen Test Pos; Blood Gas Operator Identificat AMH; Blood Gas Sample Site Radial, right; Blood Gas Sample Type Arterial; HCO3 ABG 36.5 mmol/L (22-26); Oxygen Device NC
[2022-06-26 09:46] LABS: Lactic Sepsis W/Reflex 0.7 mmol/L (0.5-2.2)
[2022-06-26 09:54] LABS: Troponin(5th) Baseline 58 ng/L (0-10)
[2022-06-26 10:01] LABS: Alanine Aminotransferase 10 U/L (0-33); Albumin Level 4.5 g/dL (3.5-5.2); Alkaline Phosphatase 109 U/L (35-105); Anion Gap 12.2 (5-19); Aspartate Amino Transferase 14 U/L (0-32); Blood Urea Nitrogen 27 mg/dL (8-23); Carbon Dioxide 35 mmol/L (22-29); Chloride 103 mmol/L (98-107); Creatinine Clr Calc Pharmacy 40.8146; Globulin 2.6 g/dL (1.3-4.6); Glucose 169 mg/dL (65-115); Magnesium 2.7 mg/dL (1.7-2.3); NT Pro B Type Natriuretic Pept 2877 pg/mL (0-450); Osmolality Calculated 311 mOsm/kg (285-295); Potassium 4.2 mmol/L (3.5-5.1); Sodium 146 mmol/L (136-145); Total Bilirubin 1.2 mg/dL (0.15-1.2); Total Protein 7.1 g/dL (6.6-8.7)
[2022-06-26 10:23] LABS: Add Urine Microscopic? YES; Bilirubin Urine 1+ (Negative); Blood Urine 3+ (Negative); Glucose Urine UA Norm (Normal); Ketones Urine 1+ (Negative); Leukocyte Esterase Urine Trace (Negative); Nitrate Urine Negative (Negative); Protein Urine 1+ (Negative); Specific Gravity, Urine 1.025 (1.005-1.030); Urine Appearance Clear (CLEAR); Urine Color Yellow (Yellow); Urobilinogen Urine Norm (Negative); pH Urine 5 (5-7)
[2022-06-26 10:25] LABS: RBC Urine 15-25 /hpf (0-2); Squamous Epithelial Cell Urine 0-4 /hpf (0-5); WBC Urine 0-4 /hpf (0-5)
[2022-06-26 10:26] LABS: Add Urine Culture? Yes; Bacteria Urine 1+ /hpf; Hyaline Casts Urine 15-25 /lpf; Mucus Urine 1+ /hpf
[2022-06-26] MEDS: FUROsemide 10 mg/mL SDV 2mL 20 MG IVP (11:05)
[2022-06-26 11:22] LABS: Troponin 5 2HR 70.77 ng/L (0-10)
[2022-06-26 11:34] LABS: Troponin 5 2HR Delta 12.77 ABS# (0-10)
[2022-06-26] MEDS: cefTRIAXone 1,000 MG in sodium chloride 0.9% (plus) 50 ML 100 MG IV (11:37)
--- NOTE | 2022-06-26 11:47 | ECG_ITS ---
[facility] Test Date: 2022-06-26 Pat Name: Iris Garcia Department: Room: Gender: Female Hooker Off: : 1940 Requested By: Cindy Perla Order Number: [id number] Krupa MD: Louis Harman M.D. Measurements Intervals [place] Rate: 71 P: MT: QRS: 53 QRSD: 105 T: 43 QT: 419 QTc: 457 Interpretive Statements SUPRAVENTRICULAR RHYTHM, likely wandering atrial pacemaker ABNORMAL RHYTHM ECG Compared to ECG 06/26/2022 09:18:06 Supraventricular rhythm now present Atrial fibrillation no longer present ST (T wave) deviation no longer present Electronically Signed On 06-26-2022 18:14:59 CDT by Louis Harman M.D. [id number]
[2022-06-26] MEDS: azithromycin 500 MG in sodium chloride 0.9% 250 ML 250 MG IV (12:19)
[2022-06-26 12:23] LABS: Adenovirus Not Detected (NOT DETECT); Chlamydia Pneumoniae Not Detected (NOT DETECT); Coronavirus 229E,HKU1,NL63,OC4 Not Detected (NOT DETECT); Human Metapneumovirus Not Detected (NOT DETECT); Human Rhinovirus/Enterovirus Not Detected (NOT DETECT); Influenza A Not Detected (NOT DETECT); Influenza A H1 Not Detected (NOT DETECT); Influenza A H1-2009 Not Detected (NOT DETECT); Influenza A H3 Not Detected (NOT DETECT); Influenza B Not Detected (NOT DETECT); Mycoplasma Pneumoniae Not Detected (NOT DETECT); Parainfluenza Virus Type 1 Not Detected (NOT DETECT); Parainfluenza Virus Type 2 Not Detected (NOT DETECT); Parainfluenza Virus Type 3 Not Detected (NOT DETECT); Parainfluenza Virus Type 4 Not Detected (NOT DETECT); Respiratory Syncytial Virus A Not Detected (NOT DETECT); Respiratory Syncytial Virus B Not Detected (NOT DETECT); SARS-COV-2 Not Detected (NOT DETECT)
[2022-06-26 15:04] LABS: Troponin 5 6HR 73.76 ng/L (0-10)
[2022-06-26 15:46] LABS: Troponin 5 6HR Delta 15.76 ng/L (0-12)
--- NOTE | 2022-06-26 15:47 | ECG_ITS ---
[facility] Test Date: 2022-06-26 Pat Name: Iris Garcia Department: Room: Gender: Female Pl Sql Programmer: : 1940 Requested By: Cindy Perla Order Number: [id number] Krupa MD: Louis Harman M.D. Measurements Intervals [place] Rate: 61 P: ME: QRS: 49 QRSD: 115 T: 34 QT: 471 QTc: 475 Interpretive Statements SUPRAVENTRICULAR RHYTHM, likely wandering atrial pacemaker MODERATE INTRAVENTRICULAR CONDUCTION DELAY [110+ ms QRS DURATION] PROLONGED QT INTERVAL Compared to ECG 06/26/2022 11:47:57 Intraventricular conduction delay now present Prolonged QT interval now present Electronically Signed On 06-26-2022 18:16:40 CDT by Louis Harman M.D. [id number]
--- NOTE | 2022-06-26 16:15 | CTR_ITS ---
PROCEDURE INFORMATION: Exam: CT Chest Without Contrast; Diagnostic Exam date and time: 06/26/2022 5:37 PM Age: 81 years old Clinical indication: Shortness of breath; Prior surgery; Additional info: Copd/pna TECHNIQUE: Imaging protocol: Diagnostic computed tomography of the chest without contrast. Radiation optimization: All CT scans at this facility use at least one of these dose optimization techniques: automated exposure control; mA and/or kV adjustment per patient size (includes targeted exams where dose is matched to clinical indication); or iterative reconstruction. COMPARISON: CT chest abd pel w con* 04/16/2020 2:07 PM RADIATION DOSE METRICS: Total DLP (mGy-cm): 490.92 FINDINGS: Lungs: Bilateral dependent airspace infiltrates. Pleural spaces: Small bilateral pleural effusions. Heart: Cardiomegaly. Coronary artery atherosclerotic calcifications. Lymph nodes: Unremarkable. No enlarged lymph nodes. Vasculature: Unremarkable. No aortic aneurysm. Gallbladder and bile ducts: Cholecystectomy. Bones/joints: Sternotomy wires. Soft tissues: Unremarkable. CT/CT chest con [id number] IMPRESSION: 1. Small bilateral pleural effusions. 2. Cardiomegaly. 3. Coronary artery atherosclerotic calcifications. 4. Cholecystectomy. 5. Bilateral dependent airspace infiltrates.
--- NOTE | 2022-06-26 16:18 | PM.HP ---
Providers/Chief Complaint Admitting Physician: Francisco Marino MD Primary Care Provider: Michael Hampton DO Chief Complaint: SOB History of Present Illness Iris Garcia is a 81 year old female with past history of acute on chronic hypoxic and hypercapnic respiratory failure, restrictive lung disease, atrial fibrillation, congestive heart failure, chronic anticoagulation for mechanical mitral valve, hypertension, hypothyroidism, skilled nursing resident was brought in today because of worsening breathing. History taken through the nurse at skilled nursing. As per the nurse patient started having difficulty in breathing more than her baseline since last night. Today morning she was hypoxic, having abdominal breathing along with blood pressure output systolic so she was brought to the ER. As per the nurse patient has not been complaining of any nausea, vomiting, diarrhea, chest pain, dizziness. At baseline she is on dysphagia 3 diet, he is able to go from bed to bathroom with assistance. In the ER patient was found to be hypoxic on her baseline oxygen supplementation hence was placed on BiPAP. On examination patient was back down to 5 L oxygen supplementation nasal cannula saturating 90%. Family at bedside. No other history could be elicited. Review of Systems General: Reports: ROS unobtainable due to mental status Medications/Allergies Home Medications Medication Instructions Recorded Confirmed Last Taken Type tolterodine 2 mg tablet 2 mg PO BID@03/12/20 06/26/22 06/25/22 History ferrous gluconate 324 mg (37.5 mg 324 mg PO BID 11/10/20 06/26/22 06/25/22 History iron) tablet potassium chloride 10 mEq 20 meq PO DAILY 11/10/20 06/26/22 06/25/22 History tablet,extended release (Klor-Con) sennosides 8.6 mg-docusate sodium 1 tab PO BID 11/10/20 06/26/22 06/25/22 History 50 mg tablet fluticasone 250 mcg-salmeterol 50 1 inh inhalation BID@09,209902/12/21 06/26/22 06/25/22 History mcg/dose blistr powdr for inhalation (Advair Diskus) nitroglycerin 0.4 mg sublingual 0.4 mg sublingual Q5M PRN Chest 02/12/21 06/26/22 03/16/22 History tablet Pain rosuvastatin 10 mg tablet 10 mg PO DAILY@2100 02/12/21 06/26/22 06/25/22 History albuterol sulfate 90 mcg/actuation 2 inh inhalation Q6H PRN Shortness 02/26/21 06/26/22 03/16/22 History aerosol inhaler Of Breath polyethylene glycol 3350 17 gram 17 g PO DAILY PRN Constipation 04/27/21 06/26/22 03/16/22 History oral powder packet (Miralax) lisinopril 2.5 mg tablet 2.5 mg PO DAILY #30 tabs 06/09/21 06/26/22 06/25/22 Rx acetaminophen 325 mg tablet 650 mg PO Q4H PRN Pain 08/09/21 06/26/22 03/16/22 History (Tylenol) carvedilol 6.25 mg tablet 6.25 mg PO BID 08/09/21 06/26/22 06/25/22 History levothyroxine 50 mcg tablet 50 mcg PO QAM 08/09/21 06/26/22 06/25/22 History bumetanide 2 mg tablet 2 mg PO DAILY 11/08/21 06/26/22 06/25/22 History carbidopa 10 mg-levodopa 100 mg 1 tab PO TID 11/08/21 06/26/22 06/25/22 History tablet warfarin 3 mg tablet See Rx Instructions .Route 11/08/21 06/26/22 06/25/22 History .COMPLEX see pharmacy comments- isosorbide mononitrate 30 mg 15 mg PO DAILY #0 tabs 12/08/21 06/26/22 06/25/22 Rx tablet,extended release 24 hr albuterol sulfate 90 mcg/actuation 2 inh inhalation Q6H PRN shortness 03/12/22 06/26/22 03/16/22 History aerosol inhaler (Ventolin HFA) of breath or wheezing bisacodyl 10 mg rectal suppository 10 mg MI DAILY PRN Constipation 03/12/22 06/26/22 03/16/22 History citalopram 10 mg tablet 10 mg PO DAILY 03/12/22 06/26/22 06/25/22 History magnesium hydroxide 400 mg/5 mL 30 ml PO DAILY PRN Constipation 03/12/22 06/26/22 03/16/22 History oral suspension (Milk of Magnesia) sodium phosphates 19 gram-7 118 ml MI DAILY PRN Constipation 03/12/22 06/26/22 03/16/22 History gram/118 mL enema (Fleet Enema) carboxymethylcellulose sodium 1 % 1 drp ophthalmic (eye) Q6H PRN Dry 06/26/22 06/26/22 Unknown History eye drops (Artificial Tears Eyes (carboxymethylcellulose)) cholecalciferol (vitamin D3) 50 50 mcg PO DAILY 06/26/22 06/26/22 06/25/22 History mcg (2,000 unit) capsule (Vitamin D3) omeprazole 40 mg capsule,delayed 40 mg PO DAILY 06/26/22 06/26/22 06/25/22 History release Allergies Allergy/AdvReac Type Severity Reaction Status Date / Time penicillin G Allergy UNK Verified 06/17/22 09:57 PFSH Acute PFSH: Medical History (Updated 06/26/22 @ 16:33 by Francisco Marino MD) Acute and chronic respiratory failure with hypercapnia Acute encephalopathy Acute metabolic encephalopathy Acute on chronic respiratory failure with hypoxia and hypercapnia Afib Anemia -baseline Hg around 9-10 -follow with Dr Bullock Atrial fibrillation CAD (coronary artery disease) CHF (congestive heart failure) Chronic anticoagulation Due to mechanical mitral valve; coumadin Chronic anticoagulation Complicated urinary tract infection Congestive heart failure COPD (chronic obstructive pulmonary disease) Depression Diastolic CHF GERD (gastroesophageal reflux disease) PPI HTN (hypertension) Hypernatremia Hypothyroidism -continue levothyroxine Iron deficiency anemia Has required transfusion in past, last egd and colonoscopy ~2017 with diverticulosis and internal hemorrhoids, SONYA (obstructive sleep apnea) Pancytopenia Parkinson disease Follows up with Dr. Rainey in [place] Pulmonary hypertension Restrictive lung disease Schatzki's ring Subtherapeutic international normalized ratio (INR) Transient neurological symptoms UTI (urinary tract infection) Weakness Surgical History (Updated 06/26/22 @ 16:24 by Francisco Marino MD) H/O mitral valve replacement with mechanical valve History of bilateral tubal ligation History of cholecystectomy History of total knee arthroplasty Left Mitral valve replaced Mechanical, on coumadin Status post open reduction and internal fixation (ORIF) of fracture Family History Mother CAD (coronary artery disease) Diabetes Other Hypertension Social History Smoking and tobacco status: former smoker Quit status (tobacco): has quit using tobacco Year quit tobacco: 1994 - PPD x 15 Years Second hand smoke exposure: No Smoking risk assessment/counseling performed?: No Alcohol intake: never Counseling given: No Counseling given: No Caregiver/support person: Yes Household members: spouse and children Housing: House Marital status: Current occupational status: retired and disabled History of recent travel: No Current gender identity: Female Vitals/I&O/Wt Last Vital Signs Temp 97.4 F L 06/26/22 09:10 Pulse 74 06/26/22 13:40 Resp 21 H 06/26/22 13:40 BP 152/58 06/26/22 13:40 Pulse Ox 88 L 06/26/22 13:40 O2 Del Method 06/26/22 13:40 O2 Flow Rate 5 06/26/22 13:40 FiO2 40 06/26/22 11:59 06/26/22 06/26/22 06/26/22 06:59 14:59 22:59 Intake Total 50 / 50 Balance 50 / 50 Weight last 48 hrs Weight 58.967 kg Physical Exam Narrative: General: No acute distress, AO x 1-2, NC oxygen supplementation HEENT: PERRLA, pupils bilaterally equal and reactive Chest: Bronchial breath sounds b/l ,decreased air entry, equal good air entry bilaterally, no more fine basal crackles CVS: S1-S2 regular, no murmurs, no tachycardia, no gallops, no rubs Abdomen: Soft, nontender, no organomegaly, bowel sounds present, morbidly obese Neuro: No focal deficits, no facial deformity, moving all limbs Urinary Catheter Management: Lam: Cath Placed During This Visit: yes Urinary Catheter Date of Insertion: 06/26/22 Data : 06/26/22 08:47 06/26/22 08:47 Micro: Microbiology 06/26/22 10:42 Blood Culture - Preliminary Blood SPECIMEN COLLECTED 06/26/22 10:48 Blood Culture - Preliminary Blood SPECIMEN COLLECTED A&P Assessment and plan (1) Acute on chronic respiratory failure with hypoxia and hypercapnia: Status: Acute (2) COPD (chronic obstructive pulmonary disease): Status: Acute Qualifiers: COPD type: chronic bronchitis Chronic bronchitis type: unspecified Qualified Code(s): J42 - Unspecified chronic bronchitis (3) CHF (congestive heart failure): Status: Acute Qualifiers: Heart failure type: diastolic Heart failure chronicity: acute on chronic Qualified Code(s): I50.33 - Acute on chronic diastolic (congestive) heart failure (4) H/O mitral valve replacement with mechanical valve: Status: Acute (5) Physical deconditioning: Status: Acute (6) Hypernatremia: Status: Acute (7) Pulmonary hypertension: Status: Acute Plan Acute on chronic hypoxic and hypercapnic respiratory failure: Most likely a combination of COPD exacerbation, congestive heart failure in setting of high blood pressures. Cannot rule out underlying possible pneumonia. DuoNeb every 6 hour, budesonide twice daily For now start on Solu-Medrol 40 mg every 8 hourly. Will wean down as per clinical picture. Keep oxygen supplementation keeping saturation over 88%. Continue home Trelegy. Check CT chest without contrast to further evaluate for consolidation. Check procalcitonin, sputum culture, urine Legionella, bacterial antigen, MRSA swab. For now start on IV ceftriaxone, IV azithromycin. We will de-escalate antibiotics as per culture results. COVID-19 PCR negative in the ER. Echocardiogram in the past consistent with diastolic heart failure be from November 2021 shows an EF of 55%, severe LA enlargement, PASP 41 mmHg. At baseline Bumex 2 mg daily. Switch to IV Lasix 60 mg daily. Lam catheterization, daily weights, check input output charting. Hypertension: Blood pressure less than 140/90 mmHg. At home takes carvedilol 6.25 mg twice daily, Imdur 15 mg daily, lisinopril 2.5 mg daily. For now we will continue home dose. Will uptitrate as per goal blood pressures. Continue other chronic medications including carbidopa levodopa, Celexa, iron, omeprazole, rosuvastatin, potassium supplementation. DNR/DNI. Dysphagia 3 diet Warfarin will suffice for DVT prophylaxis Famotidine for PUD prophylaxis Attestations Medical Necessity Statement*: Admission for more than 2 midnights for management of acute on chronic hypoxic/hypercapnic respiratory failure most likely from COPD exacerbation Time Spent in Patient Care: Greater than 35 minutes Coding Level of Care Code Acute Reservoir Engineering Manager for [facility] Fwd Diagnoses Acute on chronic respiratory failure with hypoxia and hypercapnia J96.21; J96.22 COPD (chronic obstructive pulmonary disease) J42 COPD type: chronic bronchitis Chronic bronchitis type: unspecified CHF (congestive heart failure) I50.33 Heart failure type: diastolic Heart failure chronicity: acute on chronic H/O mitral valve replacement with mechanical valve Z95.2 Physical deconditioning R53.81 Hypernatremia E87.0 Pulmonary hypertension I27.20
[2022-06-26 17:40] LABS: Procalcitonin 0.12 ng/mL (0-0.5); Thyroid Stimulating Hormone 0.99 uIU/mL (0.27-4.20); Vitamin B12 311 pg/mL (232-1245)
[2022-06-26 17:51] LABS: Iron 18 ug/dL (37-145); Percent Saturation 7.7 % (20-50); Total Iron Binding Capacity 232 mcg/dl; Unsaturated Iron Binding 214 ug/dL (112-347)
[2022-06-26] MEDS: FUROsemide 10 mg/mL SDV 10mL 60 MG IVP (18:17)
[2022-06-26] MEDS: famotidine 20 mg/2 mL INJ IVP (18:18)
[2022-06-26 18:24] LABS: Folate Level 10.6 ng/mL (4.8-37.3)
[2022-06-26 18:47] LABS: D Dimer 0.84 ug/mIFEU (0-0.59)
[2022-06-26 19:27] LABS: Potassium, Radom Urine 50 mmol/L; Urine Creatinine 89 mg/dL (28-217); Urine Random Chloride 37 mmol/L; Urine Random Sodium 26 mmol/L
[2022-06-26] MEDS: ipratropium-albuterol 3 mL Neb INHALATION (20:53)
[2022-06-26] MEDS: budesonide 0.5 mg/2 mL Neb INHALATION (20:53)
[2022-06-26] MEDS: warfarin 3 mg Tablet PO (21:07)
[2022-06-26] MEDS: atorvastatin 40 mg Tablet PO (21:07)
[2022-06-26] MEDS: tolterodine 2 mg Tablet PO (21:09)
--- NOTE | 2022-06-26 22:26 | PC.NURSE ---
spoke with TARAH Chowdhury at [facility] concerning pt carbidopa-levodopa. Per [place] he will [place] what is left of her medication [place] [facility] Pt only had 4 doses left and pharmacy will restock [facility] on monday and to give them a call back if pt will be staying past monday.
[2022-06-27] VITALS (17 sets, daily range): BP systolic 110–170; BP diastolic 46–71; PULSE 58–86; RESP 16–20; TEMP 36.7–37.2; O2SAT 93–98
[2022-06-27] MEDS: ipratropium-albuterol 3 mL Neb INHALATION ×4 (01:20→20:17)
[2022-06-27 05:19] LABS: Basophils % 0.2 %; Hematocrit 36.4 % (37.0-47.0); Hemoglobin 10.8 g/dL (11.5-15.3); Lymphocytes # 0.5 10^3/uL (0.8-4.8); Lymphocytes % 9.6 %; Mean Corpuscular HGB Conc 29.7 g/dL (30.0-36.0); Mean Corpuscular Volume 101.1 fl (81-99); Mean Platelet Volume 10.7 fL (7.4-10.4); Monocytes # 0.1 10^3/uL (0.2-0.9); Monocytes % 1.2 %; Neutrophils # 4.35 10^3/uL (1.8-7.7); Neutrophils % 88.8 %; Nucleated Red Blood Cells % 0 %; Platelet Count 85 10^3/cmm (130-400); Red Cell Distribution Width 13.6 % (12.1-15.1); White Blood Count 4.9 10^3/uL (4.0-10.0)
[2022-06-27 05:38] LABS: Alanine Aminotransferase 9 U/L (0-33); Albumin Level 3.8 g/dL (3.5-5.2); Alkaline Phosphatase 90 U/L (35-105); Anion Gap 13.3 (5-19); Aspartate Amino Transferase 13 U/L (0-32); Blood Urea Nitrogen 27 mg/dL (8-23); Carbon Dioxide 36 mmol/L (22-29); Chloride 104 mmol/L (98-107); Globulin 2.6 g/dL (1.3-4.6); Glucose 147 mg/dL (65-115); Magnesium 2.3 mg/dL (1.7-2.3); Osmolality Calculated 316 mOsm/kg (285-295); Phosphorus 3.8 mg/dL (2.5-4.5); Potassium 4.3 mmol/L (3.5-5.1); Sodium 149 mmol/L (136-145); Total Bilirubin 1.8 mg/dL (0.15-1.2); Total Protein 6.4 g/dL (6.6-8.7)
[2022-06-27] MEDS: levothyroxine 50 mcg Tablet PO (05:54)
[2022-06-27] MEDS: famotidine 20 mg/2 mL INJ IVP ×2 (05:54→17:21)
[2022-06-27] MEDS: budesonide 0.5 mg/2 mL Neb INHALATION ×2 (09:06→20:17)
[2022-06-27] MEDS: citalopram 20 mg Tablet 10 MG PO (09:49)
[2022-06-27] MEDS: carvedilol 6.25 mg Tablet PO ×2 (09:50→17:14)
[2022-06-27] MEDS: ferrous gluconate 324 mg Tablet PO ×2 (09:50→17:14)
[2022-06-27] MEDS: pantoprazole DR 40 mg Tablet PO (09:51)
[2022-06-27] MEDS: lisinopril 2.5 mg Tablet PO (09:51)
[2022-06-27] MEDS: isosorbide mononitrate ER 30 mg Tablet 15 MG PO (09:51)
[2022-06-27] MEDS: potassium chloride ER 20 mEq Tablet PO (09:52)
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
[2022-06-27] MEDS: cefTRIAXone 1,000 MG in sodium chloride 0.9% (plus) 50 ML 100 MG IV (11:40)
[2022-06-27] MEDS: azithromycin 500 MG in sodium chloride 0.9% 250 ML 250 MG IV (11:41)
[2022-06-27] MEDS: lisinopril 10 mg Tablet PO (11:43)
[2022-06-27] MEDS: tolterodine 2 mg Tablet PO ×3 (11:43→20:32)
[2022-06-27] MEDS: bumetanide 1 mg Tablet PO (17:14)
[2022-06-27] MEDS: warfarin 2 mg Tablet 4 MG PO (17:20)
[2022-06-27] MEDS: atorvastatin 40 mg Tablet PO (20:31)
[2022-06-28] VITALS (17 sets, daily range): BP systolic 119–173; BP diastolic 48–98; PULSE 53–100; RESP 17–26; TEMP 36.2–36.9; O2SAT 93–100
[2022-06-28 05:37] LABS: Basophils % 0.2 %; Eosinophils % 0.2 %; Hematocrit 33.4 % (37.0-47.0); Hemoglobin 10.1 g/dL (11.5-15.3); Lymphocytes % 22.3 %; Mean Corpuscular HGB Conc 30.2 g/dL (30.0-36.0); Mean Corpuscular Hemoglobin 30.1 pg (28.0-34.0); Mean Corpuscular Volume 99.4 fl (81-99); Mean Platelet Volume 10.5 fL (7.4-10.4); Monocytes # 0.6 10^3/uL (0.2-0.9); Neutrophils # 2.96 10^3/uL (1.8-7.7); Neutrophils % 64.1 %; Nucleated Red Blood Cells % 0 %; Platelet Count 87 10^3/cmm (130-400); Red Blood Count 3.36 10^6/uL (4.1-5.3); Red Cell Distribution Width 14.2 % (12.1-15.1); White Blood Count 4.6 10^3/uL (4.0-10.0)
[2022-06-28] MEDS: famotidine 20 mg/2 mL INJ IVP (05:47)
[2022-06-28] MEDS: levothyroxine 50 mcg Tablet PO (05:48)
[2022-06-28 05:53] LABS: Alanine Aminotransferase 7 U/L (0-33); Albumin Level 3.6 g/dL (3.5-5.2); Alkaline Phosphatase 75 U/L (35-105); Anion Gap 8.6 (5-19); Aspartate Amino Transferase 10 U/L (0-32); Blood Urea Nitrogen 31 mg/dL (8-23); Calcium 8.7 mg/dL (8.5-10.5); Carbon Dioxide 39 mmol/L (22-29); Chloride 103 mmol/L (98-107); Globulin 2.3 g/dL (1.3-4.6); Glucose 104 mg/dL (65-115); Osmolality Calculated 311 mOsm/kg (285-295); Potassium 3.6 mmol/L (3.5-5.1); Sodium 147 mmol/L (136-145); Total Bilirubin 1.5 mg/dL (0.15-1.2); Total Protein 5.9 g/dL (6.6-8.7)
[2022-06-28] MEDS: ferrous gluconate 324 mg Tablet PO ×2 (08:31→17:36)
[2022-06-28] MEDS: pantoprazole DR 40 mg Tablet PO (08:31)
[2022-06-28] MEDS: potassium chloride ER 20 mEq Tablet PO (08:31)
[2022-06-28] MEDS: lisinopril 10 mg Tablet PO (08:31)
[2022-06-28] MEDS: bumetanide 1 mg Tablet PO ×2 (08:32→17:36)
[2022-06-28] MEDS: docusate sodium 100 mg Capsule PO (08:32)
[2022-06-28] MEDS: tolterodine 2 mg Tablet PO ×2 (08:32→21:42)
[2022-06-28] MEDS: carvedilol 6.25 mg Tablet PO ×2 (08:32→17:36)
[2022-06-28] MEDS: citalopram 20 mg Tablet 10 MG PO (08:32)
[2022-06-28] MEDS: isosorbide mononitrate ER 30 mg Tablet PO (08:32)
[2022-06-28] MEDS: ipratropium-albuterol 3 mL Neb INHALATION ×4 (09:35→20:47)
--- NOTE | 2022-06-28 11:31 | P.PN_ITS ---
Subjective Subjective: No acute vents overnight.? Patient is back to her baseline oxygenation.? Back to her baseline mentation.? she is feeling better today Vitals/I&O/Wt Last Vital Signs Temp 97.8 F 06/28/22 07:44 Pulse 62 06/28/22 09:42 Resp 18 06/28/22 09:37 BP 173/52 06/28/22 07:44 Pulse Ox 96 06/28/22 09:37 O2 Del Method 06/28/22 09:37 O2 Flow Rate 3 06/28/22 09:37 FiO2 35 06/26/22 18:04 06/27/22 06/28/22 06/28/22 22:59 06:59 14:59 Intake Total 120 / 680 360 / 360 Output Total 950 / 950 Balance 120 / 680 -950 / -270 360 / 360 Weight last 48 hrs Weight 66.587 kg Weight 64.864 kg Weight 65.317 kg Physical Exam Narrative: General: No acute distress, AO x 3, NC oxygen supplementation HEENT: at/nc,eomi Chest: clear to auscultation b/l, decreased air entry, equal good air entry bilaterally, no more fine basal crackles CVS: S1-S2 regular, no murmurs, Abdomen: Soft, nontender, no organomegaly, bowel sounds present, morbidly obese Neuro: No focal deficits, no facial deformity, moving all limbs Urinary Catheter Management: Lam: Cath Placed During This Visit: yes Reason for Continuing Indwelling Catheter: Accurate Measurement of Urinary Output in Critically Ill Patients Urinary Catheter Date of Insertion: 06/26/22 Data : 06/28/22 05:20 06/28/22 05:20 Micro: Microbiology 06/26/22 09:54 Urine Culture - Final Urine,Clean Catch 06/26/22 18:40 MRSA Culture - Final Nose 06/26/22 09:54 Bacterial Antigens - Final Urine Kidney 06/26/22 18:30 Legionella Urinary Antigen - Final Urine Catheterized 06/26/22 10:48 Blood Culture - Preliminary Blood NEGATIVE TO DATE 06/26/22 10:42 Blood Culture - Preliminary Blood NEGATIVE TO DATE A&P Assessment and plan (1) Pulmonary hypertension: Status: Acute (2) Hypernatremia: Status: Acute (3) COPD (chronic obstructive pulmonary disease): Status: Acute Qualifiers: COPD type: chronic bronchitis Chronic bronchitis type: unspecified Qualified Code(s): J42 - Unspecified chronic bronchitis (4) Acute on chronic respiratory failure with hypoxia and hypercapnia: Status: Acute (5) H/O mitral valve replacement with mechanical valve: Status: Acute (6) Parkinson disease: Status: Acute (7) Afib: Status: Acute (8) Acute on chronic anemia: Status: Acute (9) Physical deconditioning: Status: Acute (10) Acute and chronic respiratory failure with hypoxia: Status: Acute (11) Depression: Status: Acute Plan Acute on chronic hypoxic and hypercapnic respiratory failure: Most likely a combination of COPD exacerbation, congestive heart failure in setting of high blood pressures. Less likely pneumonia.? CT chest negative for consolidation.? Pro-Isaiah negative. Thrombocytopenia: unsure of etiology. no evidence of bleeding. check peripheral smear. will monitor DuoNeb every 6 hour, budesonide twice daily Wean Solu-Medrol to 40 mg IV daily. Keep oxygen supplementation keeping saturation over 88%. Continue home Trelegy. Follow-up culture results, MRSA swab, urine Legionella bacterial antigen results. For now continue with IV ceftriaxone, IV azithromycin.? Most likely will do a short course of oral antibiotics to finish 5 days on discharge. COVID-19 PCR negative in the ER. Echocardiogram in the past consistent with diastolic heart failure be from November 2021 shows an EF of 55%, severe LA enlargement, PASP 41 mmHg. continue bumex 1 mg twice daily. Lam catheterization, daily weights, check input output charting. Hypertension: Blood pressure less than 140/90 mmHg.? Blood pressure is elevated. At home takes carvedilol 6.25 mg twice daily, Imdur 15 mg daily, lisinopril 2.5 mg daily. continue lisinopril dose to 10 mg daily, Imdur to 30 mg daily, continue with carvedilol 6.25 mg twice daily. Hypernatremia: Chronic.? Was similarly elevated on previous admission.? Sodium level seems to be running from 1 46-1 48. Most likely secondary to poor oral intake. Discussed with patient regarding drinking up to 1500 cc of liquid daily.? Patient and family verbalized understanding. Continue other chronic medications including carbidopa levodopa, Celexa, iron, omeprazole, rosuvastatin, potassium supplementation. DNR/DNI. Dysphagia 3 diet Warfarin will suffice for DVT prophylaxis Famotidine for PUD prophylaxis Discharge planning: Plan to discharge within next 24 hours back to SNF if continues to remain on baseline oxygen supplementation on higher dose of antihypertensives. Attestations Medical Necessity Statement*: Plan to discharge within next 24 hours back to SNF if continues to remain on baseline oxygen supplementation on higher dose of antihypertensives. Coding Level of Care Code Acute Exterior Work Helper for g Fwd Diagnoses Pulmonary hypertension I27.20 Hypernatremia E87.0 COPD (chronic obstructive pulmonary disease) J42 COPD type: chronic bronchitis Chronic bronchitis type: unspecified Acute on chronic respiratory failure with hypoxia and hypercapnia J96.21; J96.22 H/O mitral valve replacement with mechanical valve Z95.2 Parkinson disease G20 Afib I48.91 Acute on chronic anemia D64.9 Physical deconditioning R53.81 Acute and chronic respiratory failure with hypoxia J96.21 Depression F32.9
--- NOTE | 2022-06-28 12:18 | PC.CHAP ---
Pastoral Care Encounter/Spiritual Assessment Type of Contact [] Declined manager skilled visit [] Patient/Family/Request visit [] Outpatient visit [] Follow-up visit [] Physician referral x [] Code/Alert [] Routine visit [] Staff referral [] Actively dying [] Patient sleeping [] Family support [] [] Out of room [] Palliative care [] [] Receiving care in room [] Pre-surgical visit [] Trauma [] Long length of stay [] ICU visit [] Other: Relational/Emotional Strength [] Patient feels connected with others/family/visitors/staff [] Distress [] Loneliness/isolation [] Abandonment Spirituality of Patient x[] Person of Vivian [] Attends Scientology of their Vivian [x] Believes in Prayer [] Reads Bible or Christian materials [] There are Spiritual issues to be addressed Fuel Efficient Aircraft Designer Interventions [xx] Prayer [x] Active listening [x] Non-anxious presence [] Spiritual/emotional support [] Crisis/trauma care [] Spiritual counseling [] Bereavement support [] Provided bereavement packet [] Provided Bible/devotional materials [] Provided toy/stuffed animal, coloring book to patient or family member [] Provided Communion [] Anointing/[place] [] Salvation [x] Completed spiritual assessment [] Other: Impact on Illness or Injury [] Angry [] Fearful [] Anxious [] Often cries [] Exhaustion [] Unable to work [] Unable to attend spiritism [] Unable to walk/stand [] Unable to read [] Unable to drive [] Unable to eat/drink [] Unable to sleep [] Unable to be with family [] Patient intubated [] Other: Summary Time spent with patient 10 min
[2022-06-28] MEDS: cefTRIAXone 1,000 MG in sodium chloride 0.9% (plus) 50 ML 100 MG IV (12:46)
[2022-06-28] MEDS: azithromycin 500 MG in sodium chloride 0.9% 250 ML 250 MG IV (13:31)
--- NOTE | 2022-06-28 13:59 | US_ITS ---
WS: [id number] Limited ABDOMINAL ULTRASOUND HISTORY: Increased bilirubin and RIGHT upper quadrant pain. COMPARISON: None available. Liver: 14.3 cm in length. Liver is normal size. Coarse echotexture throughout. The entire liver is no t very well visualized. No bile duct dilatation. Portal Vein: Normal hepatopetal flow with monophasic waveform. Gallbladder: Prior cholecystectomy. Pancreas: Poorly visualized. CBD: 0.6 cm. Right kidney: 8.8 cm x 4.3 cm x 4.5 cm. No mass, cortical thickening or hydronephrosis. Poorly visualized aorta and IVC. No ascites. US/US abdomen complete* [id number] IMPRESSION: 1. Technically very difficult and limited evaluation of the RIGHT upper quadra nt due to body habitus. 2. Prior cholecystectomy. 3. Pancreas not well visualized. 4. Mildly fibrotic appearance to the liver.
--- NOTE | 2022-06-28 15:20 | PC.NURSE ---
pt has been sleeping for several hours. I have requested that we put on her trilogy. She adamantly refuses this, I tried to educate her on the importance of wearing it. She continues to refuse.
[2022-06-28] MEDS: warfarin 3 mg Tablet PO (17:36)
[2022-06-28] MEDS: budesonide 0.5 mg/2 mL Neb INHALATION (20:47)
[2022-06-28] MEDS: atorvastatin 40 mg Tablet PO (21:42)
[2022-06-29] VITALS (8 sets, daily range): BP systolic 108–179; BP diastolic 52–92; PULSE 58–87; RESP 16–23; TEMP 36.6–36.8; O2SAT 88–96
[2022-06-29] MEDS: famotidine 20 mg/2 mL INJ IVP (06:36)
[2022-06-29] MEDS: levothyroxine 50 mcg Tablet PO (06:36)
[2022-06-29 08:47] LABS: Basophils % 0.3 %; Eosinophils % 0.3 %; Hematocrit 35.9 % (37.0-47.0); Hemoglobin 11.1 g/dL (11.5-15.3); Lymphocytes # 1.2 10^3/uL (0.8-4.8); Lymphocytes % 17.4 %; Mean Corpuscular HGB Conc 30.9 g/dL (30.0-36.0); Mean Corpuscular Hemoglobin 29.8 pg (28.0-34.0); Mean Corpuscular Volume 96.5 fl (81-99); Mean Platelet Volume 9.9 fL (7.4-10.4); Monocytes # 0.7 10^3/uL (0.2-0.9); Monocytes % 10.3 %; Neutrophils # 4.91 10^3/uL (1.8-7.7); Neutrophils % 71.4 %; Nucleated Red Blood Cells % 0 %; Platelet Count 92 10^3/cmm (130-400); Red Blood Count 3.72 10^6/uL (4.1-5.3); Red Cell Distribution Width 13.6 % (12.1-15.1); White Blood Count 6.9 10^3/uL (4.0-10.0)
[2022-06-29] MEDS: ipratropium-albuterol 3 mL Neb INHALATION (08:47)
[2022-06-29] MEDS: budesonide 0.5 mg/2 mL Neb INHALATION (08:47)
[2022-06-29] MEDS: isosorbide mononitrate ER 30 mg Tablet PO (08:58)
[2022-06-29] MEDS: ferrous gluconate 324 mg Tablet PO (08:58)
[2022-06-29] MEDS: citalopram 20 mg Tablet 10 MG PO (08:58)
[2022-06-29] MEDS: pantoprazole DR 40 mg Tablet PO (08:58)
[2022-06-29] MEDS: lisinopril 10 mg Tablet PO (08:58)
[2022-06-29] MEDS: tolterodine 2 mg Tablet PO (08:59)
[2022-06-29] MEDS: carvedilol 6.25 mg Tablet PO (08:59)
[2022-06-29] MEDS: docusate sodium 100 mg Capsule PO (08:59)
[2022-06-29] MEDS: potassium chloride ER 20 mEq Tablet PO ×2 (08:59→12:55)
[2022-06-29] MEDS: bumetanide 1 mg Tablet PO (08:59)
[2022-06-29 09:03] LABS: Anion Gap 8.5 (5-19); Blood Urea Nitrogen 26 mg/dL (8-23); Calcium 8.6 mg/dL (8.5-10.5); Carbon Dioxide 39 mmol/L (22-29); Chloride 104 mmol/L (98-107); Glucose 97 mg/dL (65-115); Magnesium 2.3 mg/dL (1.7-2.3); Osmolality Calculated 311 mOsm/kg (285-295); Potassium 3.5 mmol/L (3.5-5.1); Sodium 148 mmol/L (136-145)
--- NOTE | 2022-06-29 11:00 | PC.SOCIAL ---
IMM update IMM updated with patient. Verbalized an understanding. Copy Pg 2 provided. Initialled, dated, timed, and placed in chart.
--- NOTE | 2022-06-29 11:35 | P.PN_ITS ---
Subjective Subjective: Seen this morning. No acute events overnight. Patient is feeling better. Vitals/I&O/Wt Last Vital Signs Temp 98.3 F 06/29/22 11:32 Pulse 67 06/29/22 11:32 Resp 16 06/29/22 11:32 BP 108/52 06/29/22 11:32 Pulse Ox 94 06/29/22 11:32 O2 Del Method 06/29/22 11:32 O2 Flow Rate 3 06/29/22 11:23 FiO2 35 06/26/22 18:04 06/28/22 06/29/22 06/29/22 22:59 06:59 14:59 Intake Total 360 / 1020 360 / 360 Output Total 600 / 600 1390 / 1990 Balance -240 / 420 -1390 / -970 360 / 360 Weight last 48 hrs Weight 64.501 kg Weight 66.587 kg Physical Exam Urinary Catheter Management: Lam: Cath Placed During This Visit: yes Reason for Continuing Indwelling Catheter: Accurate Measurement of Urinary Output in Critically Ill Patients Urinary Catheter Date of Insertion: 06/26/22 Data : 06/29/22 08:33 06/29/22 08:33 Micro: Microbiology 06/26/22 09:54 Urine Culture - Final Urine,Clean Catch Coding Level of Care Code Acute Adjustment Examiner for Norma Yeh
--- NOTE | 2022-06-29 11:40 | P.DS_ITS ---
Discharge Providers Date of Admission: 06/26/22 13:04 Date of Discharge: June 29, 2022 Attending Provider at Admission: Francisco Marino MD Attending Provider at Discharge: Michaela Cordero MD Primary Care Provider: Michael Hampton DO Diagnoses at Discharge Discharge Diagnosis (1) Pulmonary hypertension: Status: Acute (2) Hypernatremia: Status: Acute (3) COPD (chronic obstructive pulmonary disease): Status: Acute Qualifiers: COPD type: chronic bronchitis Chronic bronchitis type: unspecified Qualified Code(s): J42 - Unspecified chronic bronchitis (4) Acute on chronic respiratory failure with hypoxia and hypercapnia: Status: Acute (5) H/O mitral valve replacement with mechanical valve: Status: Acute (6) Parkinson disease: Status: Acute (7) Afib: Status: Acute (8) Acute on chronic anemia: Status: Acute (9) Physical deconditioning: Status: Acute (10) Acute and chronic respiratory failure with hypoxia: Status: Acute (11) Depression: Status: Acute Reason for Visit Reason for Visit: SOB Brief History: Iris Garcia is a 81 year old female with past history of acute on chronic hypoxic and hypercapnic respiratory failure, restrictive lung disease, atrial fibrillation, congestive heart failure, chronic anticoagulation for mechanical mitral valve, hypertension, hypothyroidism, group home resident was brought in today because of worsening breathing. History taken through the nurse at group home. As per the nurse patient started having difficulty in breathing more than her baseline since last night.? Today morning she was hypoxic, having abdominal breathing along with blood pressure output systolic so she was brought to the ER.? As per the nurse patient has not been complaining of any nausea, vomiting, diarrhea, chest pain, dizziness.? At baseline she is on dysphagia 3 diet, he is able to go from bed to bathroom with assistance. In the ER patient was found to be hypoxic on her baseline oxygen supplementation hence was placed on BiPAP.? On examination patient was back down to 5 L oxygen supplementation nasal cannula saturating 90%.? Family at bedside. No other history could be elicited. Hospital Course Hospital Course Patient was admitted and treated for COPD exacerbation, congestive heart failure in setting of high blood pressures. CT negative for consolidation. Procalcitonin negative. She was placed on IV Solu-Medrol, DuoNeb, but desonide twice daily. She was continued on her home Trelegy. MRSA nares swab negative. Patient to complete 5 days of antibiotics. She will take cefpodoxime and azithromycin for 3 more days along with prednisone 40 for 3 more days at discharge. She has been placed on Bumex 1 mg twice daily. She was also given one-time dose of Diamox 250. She is currently at home on carvedilol 6.25 twice daily, Imdur 15 daily, lisinopril 2.5 daily. Her blood pressure was elevated during hospital stay. Adjustments have been made. She will be sent home on lisinopril 5 mg daily, Imdur 30 daily, continue carvedilol 6.25 twice a day. Patient also has chronic hyponatremia. It was similarly elevated at previous admission also. It is most likely secondary to poor oral intake. We have encouraged her to drink more fluids but keep under a fluid restriction of 1500 cc daily. I discussed this with her family as well. Patient is at baseline oxygen at this time 3 L on exertion and at rest. She is at baseline mental status very alert and oriented. We also walked her and she did not have increasing oxygen requirements. She will be given a flutter valve at discharge. Discussed with patient daughter and patient will be discharged back to her custodial facility today in very stable condition. Patient demonstrates understanding as well. He is to follow-up with her primary care doctor within 4 to 7 days of discharge. Please see med rec for medication changes. Patient needs to wear her trilogy every time she naps or sleeps. Physical Exam Narrative: General: No acute distress, AO x 3, NC oxygen supplementation HEENT: at/nc,eomi Chest: clear to auscultation b/l, decreased air entry, equal good air entry bilaterally, no more fine basal crackles. Patient did have some rhonchi at bases at first but they cleared after she coughed. CVS: S1-S2 regular, no murmurs, Abdomen: Soft, nontender, no organomegaly, bowel sounds present, morbidly obese Neuro: No focal deficits, no facial deformity, moving all limbs Urinary Catheter Management: Lam: Cath Placed During This Visit: yes Reason for Continuing Indwelling Catheter: Accurate Measurement of Urinary Output in Critically Ill Patients Urinary Catheter Date of Insertion: 06/26/22 Discharge Data Studies Completed and Pending Completed Studies During Hospitalization Category Date Time Status CT chest con [id number] Stat Cat Scan 06/26/22 16:15 Completed XR chest 1V portable [id number] Stat Exams 06/26/22 09:07 Completed US abdomen complete* [id number] Routine Ultrasound 06/28/22 13:59 Completed Pending at discharge Category Date Time Status Blood Culture Stat Lab 06/26/22 10:42 Results Sputum Culture and Gram Stain Stat Lab 06/26/22 16:15 Uncollected Radiology Impressions Chest X-Ray 06/26/22 09:07 IMPRESSION: 1. Mild left basilar atelectasis/interstitial opacities. 2. Mild cardiomegaly. Chest CT 06/26/22 16:15 IMPRESSION: 1. Small bilateral pleural effusions. 2. Cardiomegaly. 3. Coronary artery atherosclerotic calcifications. 4. Cholecystectomy. 5. Bilateral dependent airspace infiltrates. Abdomen Ultrasound 06/28/22 13:59 IMPRESSION: 1. Technically very difficult and limited evaluation of the RIGHT upper quadrant due to body habitus. 2. Prior cholecystectomy. 3. Pancreas not well visualized. 4. Mildly fibrotic appearance to the liver. Laboratory Results WBC 6.9 10^3/uL (4.0-10.0) 06/29/22 08:33 RBC 3.72 10^6/uL (4.1-5.3) L 06/29/22 08:33 Hgb 11.1 g/dL (11.5-15.3) L 06/29/22 08:33 Hct 35.9 % (37.0-47.0) L 06/29/22 08:33 MCV 96.5 fl (81-99) 06/29/22 08:33 MCH 29.8 pg (28.0-34.0) 06/29/22 08:33 MCHC 30.9 g/dL (30.0-36.0) 06/29/22 08:33 RDW 13.6 % (12.1-15.1) 06/29/22 08:33 Plt Count 92 10^3/cmm (130-400) L 06/29/22 08:33 MPV 9.9 fL (7.4-10.4) 06/29/22 08:33 Neut % (Auto) 71.4 % 06/29/22 08:33 Lymph % (Auto) 17.4 % 06/29/22 08:33 [place] % (Auto) 10.3 % 06/29/22 08:33 Eos % (Auto) 0.3 % 06/29/22 08:33 Baso % (Auto) 0.3 % 06/29/22 08:33 Neut # (Auto) 4.91 10^3/uL (1.8-7.7) 06/29/22 08:33 Lymph # (Auto) 1.2 10^3/uL (0.8-4.8) 06/29/22 08:33 [place] # (Auto) 0.7 10^3/uL (0.2-0.9) 06/29/22 08:33 Eos # (Auto) 0.0 10^3/uL (0.0-0.8) 06/29/22 08:33 Baso # (Auto) 0.0 10^3/uL (0.0-0.1) 06/29/22 08:33 Nucleated RBC % (auto) 0 % 06/29/22 08: Nucleated RBCs # 0.0 /100WBC 06/29/22 08:33 PT 20.30 SECONDS (12.1-14.9) H 06/26/22 08:47 INR 1.70 (0.8-1.2) H 06/26/22 08:47 D-Dimer 0.84 ug/mIFEU (0-0.59) H 06/26/22 08:47 Specimen Type Arterial 06/26/22 09:18 Sample Site Radial, right 06/26/22 09:18 ABG pH 7.22 (7.35-7.45) L 06/26/22 09:18 ABG pCO2 88.7 mmHg (35-45) H* 06/26/22 09:18 ABG pO2 61.0 mmHg (80.0-100.0) L 06/26/22 09:18 ABG HCO3 36.5 mmol/L (22-26) H 06/26/22 09:18 ABG Base Excess 6.0 mmol/L (-2.0-2.0) H 06/26/22 09:18 César Test Pos 06/26/22 09:18 Hematocrit 37.4 % (37-47) 06/26/22 09:18 O2 Delivery Device Nc 06/26/22 09:18 O2 Liters/Min 5.0 % 06/26/22 09:18 FiO2 40.0 % 06/26/22 09:18 Florist Designer ID Amh 06/26/22 09:18 Sodium 148 mmol/L (136-145) H 06/29/22 08:33 Potassium 3.5 mmol/L (3.5-5.1) 06/29/22 08:33 Chloride 104 mmol/L (98-107) 06/29/22 08:33 Carbon Dioxide 39 mmol/L (22-29) H 06/29/22 08:33 Anion Gap 8.5 (5-19) 06/29/22 08:33 BUN 26 mg/dL (8-23) H 06/29/22 08:33 Creatinine 0.8 mg/dL (0.5-0.9) 06/29/22 08:33 GFR Calculation Not Reportable 06/29/22 08:33 Glucose 97 mg/dL (65-115) 06/29/22 08:33 Calculated Osmolality 311 mOsm/kg (285-295) H 06/29/22 08:33 Lactic Acid 0.7 mmol/L (0.5-2.2) 06/26/22 09:23 Calcium 8.6 mg/dL (8.5-10.5) 06/29/22 08:33 Phosphorus 3.8 mg/dL (2.5-4.5) 06/27/22 05:05 Magnesium 2.3 mg/dL (1.7-2.3) 06/29/22 08:33 Iron 18 ug/dL (37-145) L 06/26/22 14:38 TIBC 232 mcg/dl 06/26/22 14:38 % Saturation 7.7 % (20-50) L 06/26/22 14:38 Unsat Iron Binding 214 ug/dL (112-347) 06/26/22 14:38 Total Bilirubin 1.5 mg/dL (0.15-1.2) H 06/28/22 05:20 AST 10 U/L (0-32) 06/28/22 05:20 ALT 7 U/L (0-33) 06/28/22 05:20 Alkaline Phosphatase 75 U/L (35-105) 06/28/22 05:20 Troponin T Baseline 58 ng/L (0-10) H 06/26/22 08:47 Troponin T 120 Minute 70.77 ng/L (0-10) H 06/26/22 10:48 Delta Troponin T 12.77 ABS# (0-10) H* 06/26/22 10:48 Troponin T Hi Sens 6Hr 73.76 ng/L (0-10) H 06/26/22 14:38 Troponin T Hi Sens 6Hr Delta 15.76 ng/L (0-12) H* 06/26/22 14:38 NT-Pro-B Natriuret Pep 2877 pg/mL (0-450) H 06/26/22 08:47 Total Protein 5.9 g/dL (6.6-8.7) L 06/28/22 05:20 Albumin 3.6 g/dL (3.5-5.2) 06/28/22 05:20 Globulin 2.3 g/dL (1.3-4.6) 06/28/22 05:20 Vitamin B12 311 pg/mL (232-1245) 06/26/22 14:38 Folate 10.6 ng/mL (4.8-37.3) 06/26/22 08:47 Procalcitonin 0.12 ng/mL (0-0.5) 06/26/22 14:38 TSH 0.99 uIU/mL (0.27-4.20) 06/26/22 14:38 Urine Color Yellow (Yellow) 06/26/22 09:54 Urine Appearance Clear (CLEAR) 06/26/22 09:54 Urine pH 5 (5-7) 06/26/22 09:54 Ur Specific [place] 1.025 (1.005-1.030) 06/26/22 09:54 Urine Protein 1+ (Negative) H 06/26/22 09:54 Urine Glucose (UA) Norm (Normal) 06/26/22 09:54 Urine Ketones 1+ (Negative) H 06/26/22 09:54 Urine Blood 3+ (Negative) H 06/26/22 09:54 Urine Nitrate Negative (Negative) 06/26/22 09:54 Urine Bilirubin 1+ (Negative) H 06/26/22 09:54 Urine Urobilinogen Norm mg/dL (Negative) 06/26/22 09:54 Ur Leukocyte Esterase Trace (Negative) H 06/26/22 09:54 Urine RBC 15-25 /hpf (0-2) H 06/26/22 09:54 Urine WBC 0-4 /hpf (0-5) H 06/26/22 09:54 Ur Squamous Epith Cells 0-4 /hpf (0-5) H 06/26/22 09:54 Amorphous Sediment Not Reportable 06/26/22 09:54 Urine Bacteria 1+ /hpf (NONE) H 06/26/22 09:54 Hyaline Casts 15-25 /lpf H 06/26/22 09:54 Urine Mucus 1+ /hpf 06/26/22 09:54 Ur Random Sodium 26 mmol/L 06/26/22 18:30 Ur Random Potassium 50 mmol/L 06/26/22 18:30 Ur Random Chloride 37 mmol/L 06/26/22 18:30 Urine Creatinine 89 mg/dL () 06/26/22 18:30 Coronavirus 229E (PCR) Not detected (NOT DETECT) 06/26/22 10:30 SARS-CoV-2 (PCR) Not detected (NOT DETECT) 06/26/22 10:30 Vitals Last Vital Signs Temp 98.3 F 06/29/22 11:32 Pulse 67 06/29/22 11:32 Resp 16 06/29/22 11:32 BP 108/52 06/29/22 11:32 Pulse Ox 94 06/29/22 11:32 O2 Del Method 06/29/22 11:32 O2 Flow Rate 3 06/29/22 11:23 FiO2 35 06/26/22 18:04 Discharge Plan Discharge Patient Disposition: Xfer SNF Condition: Stable Prescriptions: New cefpodoxime 200 mg tablet 200 mg PO BID 3 Days Qty: 6 0RF Rx Instructions: must administer with a meal/food prednisone 20 mg tablet 40 mg PO DAILY 3 Days Qty: 6 0RF Rx Instructions: start jun isosorbide mononitrate 30 mg Tablet Extended Release 24 Hr 30 mg PO DAILY 30 Days Qty: 30 0RF bumetanide 1 mg Tablet 1 mg PO BID 30 Days Qty: 60 0RF lisinopril 5 mg tablet 5 mg PO DAILY 30 Days Qty: 30 0RF azithromycin 250 mg tablet 250 mg PO DAILY 3 Days Qty: 3 0RF Continued tolterodine 2 mg tablet 2 mg PO BID@ nitroglycerin 0.4 mg Tablet, Sublingual 0.4 mg SUBLINGUAL Q5M PRN (Reason: Chest Pain) rosuvastatin 10 mg tablet 10 mg PO DAILY@2100 fluticasone propion-salmeterol [Advair Diskus] 250-50 mcg/dose blister with device 1 inh inhalation BID@0900,2100 polyethylene glycol 3350 [Miralax] 17 gram powder in packet 17 g PO DAILY PRN (Reason: Constipation) albuterol sulfate 90 mcg/actuation Hfa Aerosol Inhaler 2 inh INHALATION Q6H PRN (Reason: Shortness Of Breath) acetaminophen [Tylenol] 325 mg Tablet 650 mg PO Q4H PRN (Reason: Pain) levothyroxine 50 mcg tablet 50 mcg PO QAM carvedilol 6.25 mg tablet 6.25 mg PO BID warfarin 3 mg Tablet See Rx Instructions .ROUTE .COMPLEX Protocol: Dose Management Condition: Monday Dose/Route: 3 mg Instruction: 1 x 3 mg tablet Condition: Monday Dose/Route: 3 mg Instruction: 1 x 3 mg tablet Condition: Monday Dose/Route: 3 mg Instruction: 1 x 3 mg tablet Condition: Monday Dose/Route: 3 mg Instruction: 1 x 3 mg tablet Condition: Dose/Route: 3 mg Instruction: 1 x 3 mg tablet Condition: Monday Dose/Route: 3 mg Instruction: 1 x 3 mg tablet Condition: Monday Dose/Route: 3 mg Instruction: 1 x 3 mg tablet Protocol Text: Adjustment Start Date: 01/20/22 INR Value: 2.1 INR Date: 01/17/22 Recheck Date: 01/27/22 Rx Instructions: 3mg po daily@1800 on , , mon, monday 4mg po daily@1800 on mon, , monday carbidopa-levodopa 10-100 mg tablet 1 tab PO TID potassium chloride [Klor-Con 10] 10 mEq tablet extended release 20 meq PO DAILY ferrous gluconate 324 mg (37.5 mg iron) tablet 324 mg PO BID sennosides-docusate sodium 8.6-50 mg tablet 1 tab PO BID citalopram 10 mg Tablet 10 mg PO DAILY magnesium hydroxide [Milk of Magnesia] 400 mg/5 mL Suspension 30 ml PO DAILY PRN (Reason: Constipation) bisacodyl 10 mg Suppository 10 mg MS DAILY PRN (Reason: Constipation) Fleet Enema 19-7 gram/118 mL Enema 118 ml MS DAILY PRN (Reason: Constipation) albuterol sulfate [Ventolin HFA] 90 mcg/actuation HFA aerosol inhaler 2 inh inhalation Q6H PRN (Reason: shortness of breath or wheezing) omeprazole 40 mg Capsule,Delayed Release(Dr/Ec) 40 mg PO DAILY Vitamin D3 50 mcg (2,000 unit) Capsule 50 mcg PO DAILY Artificial Tears (cmc) 1 % Drops 1 drp OPHTHALMIC (EYE) Q6H PRN (Reason: Dry Eyes) Discontinued lisinopril 2.5 mg tablet 2.5 mg PO DAILY Qty: 30 6RF bumetanide 2 mg tablet 2 mg PO DAILY Hold Instructions: Resume on 12/15/21. follow up with cardiology prior to resuming. isosorbide mononitrate 30 mg Tablet Extended Release 24 Hr 15 mg PO DAILY Qty: 0 0RF Discharge Orders: Discharge Order (Routine); Ordered 06/29/22 Ordered By: Michaela Cordero Other Ambulatory Orders: Basic Metabolic Panel (Routine) Timeframe: 1 Week Facility: [facility] - Location: Lab - Main Lab Ordered By: Michaela Cordero Referrals: [facility] [Outside] Michael Hampton DO [Primary Care Provider] - 4-7 days Discharge Diet: Cardiac Discharge Activity: Resume usual activity Patient Instructions: Opioid Safety Activity Restrictions/Additional Instructions: Encourage patient to wear trilogy every time she takes a nap and sleeps at night Encourage oral fluid intake. Patient needs to drink more water. Patient will need to recheck her labs within a week. Ensure completion of antibiotics and steroid course. Patient was follow-up with primary care doctor within 4 to 7 days of discharge Patient is now back to baseline oxygen 3 L at rest and on exertion. Start bumex tomorrow. Skip bumex 1 mg dose at night today. If worsening shortness of breath, chest pain, fever, abdominal pain, diarrhea, somnolence occurs please return to the ER. Please check patient's blood pressure twice a day for next 1 week until seen by primary care doctor and take record to him for review. Blood pressure medications were adjusted during this hospital stay. Discharge Attestations Time Spent in Discharge Care*: greater than 30 min Status at Discharge: Cognitive status at discharge: cognitively intact , Behavioral status at discharge: cooperative , Quality Metrics Clinical Quality Measures [ No reported AMI, CVA or VTE this stay] Coding Level of Care Code Acute Chg FW DC note Diagnoses Pulmonary hypertension I27.20 Hypernatremia E87.0 COPD (chronic obstructive pulmonary disease) J42 COPD type: chronic bronchitis Chronic bronchitis type: unspecified Acute on chronic respiratory failure with hypoxia and hypercapnia J96.21; J96.22 H/O mitral valve replacement with mechanical valve Z95.2 Parkinson disease G20 Afib I48.91 Acute on chronic anemia D64.9 Physical deconditioning R53.81 Acute and chronic respiratory failure with hypoxia J96.21 Depression F32.9
[2022-06-29 12:40] LABS: SARS Covid-2 Antigen Negative (Negative)
[2022-06-29] MEDS: acetaZOLAMIDE 250 mg Tablet PO (12:55)
[2022-06-29] MEDS: cefTRIAXone 1,000 MG in sodium chloride 0.9% (plus) 50 ML 100 MG IV (12:55)
--- NOTE | 2022-06-29 14:56 | PC.NURSE ---
Discharge Note Patient discharged to SNF via w/c accompanied by diesel pile driver operator. Discharge instructions reviewed with patient and/or petroleum products sales representative. Mobile pharmacy medications and/or prescriptions provided. Belongings/home medications returned.
== END 2022-06-29 14:57 | disposition skilled nursing facility (03) | DRG 291 ==
LOC: ER 13:20 → MEDSURG 16:12
PROVIDERS: Admitting Provider Student in an Organized Health Care Education/Training Program; Emergency Provider Emergency Medicine; PCP Family Medicine; Visit Provider Internal Medicine
DX: I11.0 Hypertensive heart disease with heart failure (principal); I50.33 Acute on chronic diastolic (congestive) heart failure; J96.21 Acute and chronic respiratory failure with hypoxia; J96.22 Acute and chronic respiratory failure with hypercapnia; J44.1 Chronic obstructive pulmonary disease with (acute) exacerbation; E87.0 Hyperosmolality and hypernatremia; I48.91 Unspecified atrial fibrillation; Z95.2 Presence of prosthetic heart valve; Z79.01 Long term (current) use of anticoagulants; E03.9 Hypothyroidism, unspecified; Z87.440 Personal history of urinary (tract) infections; F32.A Depression, unspecified; K21.9 Gastro-esophageal reflux disease without esophagitis; G47.33 Obstructive sleep apnea (adult) (pediatric); G20 Parkinson's disease; I27.20 Pulmonary hypertension, unspecified; Z96.652 Presence of left artificial knee joint; Z87.891 Personal history of nicotine dependence; Z79.51 Long term (current) use of inhaled steroids; D69.6 Thrombocytopenia, unspecified; Z66 Do not resuscitate
CPT/HCPCS: 36415; 36600; 51702; 71045; 71250; 76700; 80048; 80053; 81001; 82436; 82570; 82607; 82746; 82803; 83540; 83550; 83605; 83735; 83880; 84100; 84133; 84145; 84300; 84443; 84484; 85025; 85378; 85610; 86403; 87040; 87086; 87426; 87449; 87635; 87641; 93005; 94640; 94660; 94760; 96365; 96367; 96375; 99291; J0456; J0696; J1940; J2920; J3490; J7050; J7626

== ENCOUNTER → 2022-08-12 15:17 | Outpatient (BNVA) | payer MEDICARE, MEDICAID, SELFPAY | PROVIDERS: PCP Family Medicine; Visit Provider Nurse Practitioner Women's Health | DX: R10.2 Pelvic and perineal pain (principal); R58 Hemorrhage, not elsewhere classified | CPT/HCPCS: 87624 ==

== ENCOUNTER → 2022-09-01 10:15 | Outpatient (BNVA) | payer MEDICARE, MEDICAID, SELFPAY | PROVIDERS: PCP Family Medicine; Visit Provider Nurse Practitioner Women's Health | DX: R10.2 Pelvic and perineal pain (principal); N85.8 Other specified noninflammatory disorders of uterus | CPT/HCPCS: 76830; 76856 ==

== ENCOUNTER 2022-09-04 00:53 | Inpatient (IN) | payer MEDICARE, MEDICAID, SELFPAY ==
[2022-09-04] VITALS (68 sets, daily range): BP systolic 81–152; BP diastolic 37–87; PULSE 55–79; RESP 12–32; TEMP 36.3–37.8; O2SAT 86–100; BMI 23.8; BMI 24.5
--- NOTE | 2022-09-04 00:59 | ECG_ITS ---
[facility] Test Date: 2022-09-04 Pat Name: Iris Garcia Department: Room: Gender: Female [employer] Driver: : [id number] Requested By: Farooq Garcia Order Number: [id number] Krupa MD: Tere Teixeira M.D. Measurements Intervals [place] Rate: 78 P: AL: QRS: 51 QRSD: 106 T: 9 QT: 397 QTc: 452 Interpretive Statements SUPRAVENTRICULAR RHYTHM MODERATE INTRAVENTRICULAR CONDUCTION DELAY NONSPECIFIC ST & T-WAVE ABNORMALITY Compared to ECG 06/26/2022 15:47:48 T-wave abnormality now present Wandering atrial pacemaker no longer present Atrial-paced complex(es) or rhythm no longer present Prolonged QT interval no longer present Electronically Signed On 09-04-2022 16:05:57 COMMUNICATION INSTRUCTOR by Tere Teixeira M.D. [email or web address]
[2022-09-04] MEDS: ipratropium-albuterol 3 mL Neb INHALATION ×4 (01:08→20:43)
--- NOTE | 2022-09-04 01:14 | ED_ITS ---
HPI - SOB/Dyspnea General: Chief Complaint: Shortness of Breath/Dyspnea Stated Complaint: SOB Time Seen by Provider: 09/04/22 01:00 CDT Source: patient History of Present Illness: HPI Narrative: 82-year-old female prison patient. She had hit her call light just prior to arrival because she had woken up short of breath. She sleeps with a CPAP. They remove the CPAP, and placed her on nonrebreather mask with some improvement in her oxygenation. EMS was called. She received a nebulizer treatment and 6 mg of dexamethasone in route from them. Her breathing is improved she says. She is awake and talking. MD elicited complaint: shortness of breath Pertinent past history: congestive heart failure and other Onset (ago): minute(s) Timing: constant Severity: moderate Exacerbating factors: lying flat Known history of: congestive heart failure Associated symptoms: Reports chest congestion, cough, fever(s) and nausea; Deny abdominal pain, chest pain or vomiting Treatment prior to arrival: oxygen and bronchodilator Review of Systems Const: Reports: fever(s) Eyes: Denies: change in vision ENMT: Denies: throat pain Card: Denies: chest pain Resp: Reports: dyspnea, productive cough and chest congestion GI: Reports: nausea; Denies: abdominal pain or vomiting Musc: Denies: neck pain PFSH ED PFSH: Medical History (Reviewed 09/04/22 @ 01:40 BLOOD BANK SPECIALIST by Farooq Rutherford DO) Atrial fibrillation CAD (coronary artery disease) CHF (congestive heart failure) Chronic anticoagulation Due to mechanical mitral valve; coumadin Congestive heart failure COPD (chronic obstructive pulmonary disease) Depression GERD (gastroesophageal reflux disease) PPI HTN (hypertension) Hypothyroidism -continue levothyroxine Iron deficiency anemia Has required transfusion in past, last egd and colonoscopy ~2017 with diverticulosis and internal hemorrhoids, No pertinent past medical history neghx: dm,dvt/pe PCP: Radha Sellers 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 Rainey in [place] Pulmonary hypertension Restrictive lung disease Schatzki's ring Subtherapeutic international normalized ratio (INR) Transient neurological symptoms Surgical History (Reviewed 09/04/22 @ 01:40 BLOOD BANK SPECIALIST by Farooq Rutherford DO) H/O mitral valve replacement with mechanical valve History of bilateral tubal ligation History of cholecystectomy History of total knee arthroplasty Left Mitral valve replaced Mechanical, on coumadin Status post open reduction and internal fixation (ORIF) of fracture Family History (Reviewed 09/04/22 @ 01:40 BLOOD BANK SPECIALIST by Farooq Rutherford DO) Mother CAD (coronary artery disease) Diabetes Daughter Ovarian cancer Father Stroke Other Hypertension Denies family history of Colon cancer Heart disease Hypercholesteremia Breast cancer Uterine cancer Thyroid disease Physical Exam Const: GENERAL APPEARANCE: cooperative, ill appearing and frail appearing HENMT: COMMON NORMALS: normocephalic, atraumatic and Normal external nose present HEAD & SCALP: normocephalic and atraumatic FACE & SINUS: normal facial exam and face symmetric NOSE: Normal external nose present Neck/C-Spine: GENERAL: Yes trachea midline Chest: CHEST: Yes Symmetrical chest wall rise Resp: EFFORT & INSPECTION: Yes labored AUSCULTATION: wheezes and diminished lung sounds Cardio: COMMON NORMALS: regular rate and regular rhythm RATE: regular rate RHYTHM: regular rhythm GI: COMMON NORMALS: Normal to inspection, nondistended, normoactive bowel sounds present and Soft to palpation PALPATION: Yes Soft to palpation Neuro: RASHID COMA SCALE: document GCS findings [place] coma scale eye opening: To sound Rashid coma scale verbal response: Orientated [place] coma scale motor response: Obey commands [place] coma scale total score: 14 Psych: COMMON NORMALS: cooperative ATTITUDE: Yes calm Course Vital Signs: Vital signs: Vital Signs Temperature 98.1 F 09/04/22 00:58 Pulse Rate 71 09/04/22 02:00 Respiratory Rate 26 H 09/04/22 02:00 Blood Pressure 124/46 09/04/22 02:00 Pulse Oximetry 93 09/04/22 02:00 Oxygen Delivery Me thod 09/04/22 01:04 CS T Oxygen Flow Rate 3 09/04/22 00:58 Fraction of Inspir ed Oxygen 35 09/04/22 01:06 CS T MDM - SOB/Dyspnea Medical Decision Making Blood gas shows a significant respiratory acidosis with a pH of 7.3 and PCO2 of 82. Bicarb is 40. Lactic acid is 0.6. White blood cell count is 8.7. Hemoglobin is 10. With significant respiratory acidosis, appears at least somewhat acute, she will be placed on BiPAP. Admitted. Spoke with hospitalist. Accepts. Lab Data : 09/04/22 01:00 BLOOD BANK SPECIALIST 09/04/22 01:00 BLOOD BANK SPECIALIST Labs/Radiology: Laboratory Results WBC 8.7 10^3/uL (4.0-10.0) 09/04/22 01:00 BLOOD BANK SPECIALIST RBC 3.40 10^6/uL (4.1-5.3) L 09/04/22 01:00 BLOOD BANK SPECIALIST Hgb 10.2 g/dL (11.5-15.3) L 09/04/22 01:00 BLOOD BANK SPECIALIST Hct 34.5 % (37.0-47.0) L 09/04/22 01:00 BLOOD BANK SPECIALIST MCV 101.5 fl (81-99) H 09/04/22 01:00 BLOOD BANK SPECIALIST MCH 30.0 pg (28.0-34.0) 09/04/22 01:00 BLOOD BANK SPECIALIST MCHC 29.6 g/dL (30.0-36.0) L 09/04/22 01:00 BLOOD BANK SPECIALIST RDW 14.4 % (12.1-15.1) 09/04/22 01:00 BLOOD BANK SPECIALIST Plt Count 154 10^3/cmm (130-400) 09/04/22 01:00 BLOOD BANK SPECIALIST MPV 9.7 fL (7.4-10.4) 09/04/22 01:00 BLOOD BANK SPECIALIST Neut % (Auto) 68.4 % 09/04/22 01:00 BLOOD BANK SPECIALIST Lymph % (Auto) 23.2 % 09/04/22 01:[address] BLOOD [address] [place] % (Auto) 5.5 % 09/04/22 01:00 BLOOD BANK SPECIALIST Eos % (Auto) 2.1 % 09/04/22 01:00 BLOOD BANK SPECIALIST Baso % (Auto) 0.6 % 09/04/22 01:00 BLOOD BANK SPECIALIST Neut # (Auto) 5.94 10^3/uL (1.8-7.7) 09/04/22 01:00 BLOOD BANK SPECIALIST Lymph # (Auto) 2.0 10^3/uL (0.8-4.8) 09/04/22 01:[address] [place] # (Auto) 0.5 10^3/uL (0.2-0.9) 09/04/22 01:00 BLOOD BANK SPECIALIST Eos # (Auto) 0.2 10^3/uL (0.0-0.8) 09/04/22 01:00 BLOOD BANK SPECIALIST Baso # (Auto) 0.1 10^3/uL (0.0-0.1) 09/04/22 01:00 BLOOD BANK SPECIALIST Nucleated RBC % (auto) 0 % 09/04/22 01:00 BLOOD BANK SPECIALIST Nucleated RBCs # 0.0 /100WBC 09/04/22 01:00 BLOOD BANK SPECIALIST PT 32.10 SECONDS (12.1-14.9) H 09/04/22 01:00 BLOOD BANK SPECIALIST INR 3.09 (0.8-1.2) H 09/04/22 01:00 BLOOD BANK SPECIALIST Specimen Type Arterial 09/04/22 01:39 BLOOD BANK SPECIALIST Sample Site Radial, right 09/04/22 01:39 BLOOD BANK SPECIALIST ABG pH 7.30 (7.35-7.45) L 09/04/22 01:39 BLOOD BANK SPECIALIST ABG pCO2 82.7 mmHg (35-45) H* 09/04/22 01:39 BLOOD BANK SPECIALIST ABG pO2 70.4 mmHg (80.0-100.0) L 09/04/22 01:39 BLOOD BANK SPECIALIST ABG HCO3 40.5 mmol/L (22-26) H 09/04/22 01:39 BLOOD BANK SPECIALIST ABG Base Excess 11.6 mmol/L (-2.0-2.0) H 09/04/22 01:39 BLOOD BANK SPECIALIST [place] Test Pos 09/04/22 01:39 BLOOD BANK SPECIALIST Hematocrit 30.4 % (37-47) L 09/04/22 01:39 BLOOD BANK SPECIALIST Hgb O2 Saturation 90.6 % (95-100) L 09/04/22 01:39 BLOOD BANK SPECIALIST Carboxyhemoglobin 1.9 %THgb (0.4-20.1) 09/04/22 01:39 BLOOD BANK SPECIALIST Methemoglobin 1.0 % (0.4-1.5) 09/04/22 01:39 BLOOD BANK SPECIALIST Total Hemoglobin 9.9 g/dL (12-16) L 09/04/22 01:39 BLOOD BANK SPECIALIST O2 Delivery Device Nc 09/04/22 01:39 BLOOD BANK SPECIALIST O2 Liters/Min 3.0 % 09/04/22 01:39 BLOOD BANK SPECIALIST Brick Veneer Maker ID [place] 09/04/22 01:39 BLOOD BANK SPECIALIST Sodium 144 mmol/L (136-145) 09/04/22 01:00 BLOOD BANK SPECIALIST Potassium 3.9 mmol/L (3.5-5.1) 09/04/22 01:00 BLOOD BANK SPECIALIST Chloride 98 mmol/L (98-107) 09/04/22 01:00 BLOOD BANK SPECIALIST Carbon Dioxide 40 mmol/L (22-29) H 09/04/22 01:00 BLOOD BANK SPECIALIST Anion Gap 9.9 (5-19) 09/04/22 01:00 BLOOD BANK SPECIALIST BUN 14 mg/dL (8-23) 09/04/22 01:00 BLOOD BANK SPECIALIST Creatinine 0.8 mg/dL (0.5-0.9) 09/04/22 01:00 BLOOD BANK SPECIALIST GFR Calculation Not Reportable 09/04/22 01:00 BLOOD BANK SPECIALIST Glucose 151 mg/dL (65-115) H 09/04/22 01:00 BLOOD BANK SPECIALIST Calculated Osmolality 301 mOsm/kg (285-295) H 09/04/22 01:00 BLOOD BANK SPECIALIST Lactic Acid 0.6 mmol/L (0.5-2.2) 09/04/22 01:00 BLOOD BANK SPECIALIST Calcium 8.8 mg/dL (8.5-10.5) 09/04/22 01:00 BLOOD BANK SPECIALIST Total Bilirubin 1.6 mg/dL (0.15-1.2) H 09/04/22 01:00 BLOOD BANK SPECIALIST AST 12 U/L (0-32) 09/04/22 01:00 BLOOD BANK SPECIALIST ALT < 5 U/L (0-33) 09/04/22 01:00 BLOOD BANK SPECIALIST Alkaline Phosphatase 93 U/L (35-105) 09/04/22 01:00 BLOOD BANK SPECIALIST C-Reactive Protein 15.8 mg/L (0.0-4.9) H 09/04/22 01:00 BLOOD BANK SPECIALIST NT-Pro-B Natriuret Pep 577 pg/mL (0-450) H 09/04/22 01:00 BLOOD BANK SPECIALIST Total Protein 6.9 g/dL (6.6-8.7) 09/04/22 01:00 BLOOD BANK SPECIALIST Albumin 4.0 g/dL (3.5-5.2) 09/04/22 01:00 BLOOD BANK SPECIALIST Globulin 2.9 g/dL (1.3-4.6) 09/04/22 01:00 BLOOD BANK SPECIALIST Influenza Type A Ag negative (Negative) 09/04/22 02:08 Influenza Type B Ag negative (Negative) 09/04/22 02:08 SARS-CoV-2 Ag (Rapid) negative (Negative) 09/04/22 02:08 Discharge Plan Discharge Patient Disposition: Admitted As Inpatient Clinical Impression: Acute exacerbation of chronic obstructive airways disease, Congestive heart failure, Acute and chronic respiratory failure with hypercapnia Condition: Stable Coding Level of Care Code ED Barrel Drainer for Chg Fwd Exam Comprehensive
--- NOTE | 2022-09-04 01:14 | W.ED.SOB ---
HPI - SOB/Dyspnea General: Chief Complaint: Shortness of Breath/Dyspnea Stated Complaint: SOB Time Seen by Provider: 09/04/22 01:00 CDT Source: patient History of Present Illness: HPI Narrative: 82-year-old female senior living patient. She had hit her call light just prior to arrival because she had woken up short of breath. She sleeps with a CPAP. They remove the CPAP, and placed her on nonrebreather mask with some improvement in her oxygenation. EMS was called. She received a nebulizer treatment and 6 mg of dexamethasone in route from them. Her breathing is improved she says. She is awake and talking. MD elicited complaint: shortness of breath Pertinent past history: congestive heart failure and other Onset (ago): minute(s) Timing: constant Severity: moderate Exacerbating factors: lying flat Known history of: congestive heart failure Associated symptoms: Reports chest congestion, cough, fever(s) and nausea; Deny abdominal pain, chest pain or vomiting Treatment prior to arrival: oxygen and bronchodilator Review of Systems Const: Reports: fever(s) Eyes: Denies: change in vision ENMT: Denies: throat pain Card: Denies: chest pain Resp: Reports: dyspnea, productive cough and chest congestion GI: Reports: nausea; Denies: abdominal pain or vomiting Musc: Denies: neck pain PFSH ED PFSH: Medical History (Reviewed 09/04/22 @ 01:40 SOLDERER ELECTRONIC by Farooq Rutherford DO) Atrial fibrillation CAD (coronary artery disease) CHF (congestive heart failure) Chronic anticoagulation Due to mechanical mitral valve; coumadin Congestive heart failure COPD (chronic obstructive pulmonary disease) Depression GERD (gastroesophageal reflux disease) PPI HTN (hypertension) Hypothyroidism -continue levothyroxine Iron deficiency anemia Has required transfusion in past, last egd and colonoscopy ~2017 with diverticulosis and internal hemorrhoids, No pertinent past medical history neghx: dm,dvt/pe PCP: Radha Sellers CROP ADJUSTER SONYA (obstructive sleep apnea) Pancytopenia Parkinson disease Follows up with Dr. Rainey in [place] Pulmonary hypertension Restrictive lung disease Schatzki's ring Subtherapeutic international normalized ratio (INR) Transient neurological symptoms Surgical History (Reviewed 09/04/22 @ 01:40 SOLDERER ELECTRONIC by Farooq Rutherford DO) H/O mitral valve replacement with mechanical valve History of bilateral tubal ligation History of cholecystectomy History of total knee arthroplasty Left Mitral valve replaced Mechanical, on coumadin Status post open reduction and internal fixation (ORIF) of fracture Family History (Reviewed 09/04/22 @ 01:40 SOLDERER ELECTRONIC by Farooq Rutherford DO) Mother CAD (coronary artery disease) Diabetes Daughter Ovarian cancer Father Stroke Other Hypertension Denies family history of Colon cancer Heart disease Hypercholesteremia Breast cancer Uterine cancer Thyroid disease Physical Exam Const: GENERAL APPEARANCE: cooperative, ill appearing and frail appearing HENMT: COMMON NORMALS: normocephalic, atraumatic and Normal external nose present HEAD & SCALP: normocephalic and atraumatic FACE & SINUS: normal facial exam and face symmetric NOSE: Normal external nose present Neck/C-Spine: GENERAL: Yes trachea midline Chest: CHEST: Yes Symmetrical chest wall rise Resp: EFFORT & INSPECTION: Yes labored AUSCULTATION: wheezes and diminished lung sounds Cardio: COMMON NORMALS: regular rate and regular rhythm RATE: regular rate RHYTHM: regular rhythm GI: COMMON NORMALS: Normal to inspection, nondistended, normoactive bowel sounds present and Soft to palpation PALPATION: Yes Soft to palpation Neuro: RASHID COMA SCALE: document GCS findings [place] coma scale eye opening: To sound Rashid coma scale verbal response: Orientated [place] coma scale motor response: Obey commands [place] coma scale total score: 14 Psych: COMMON NORMALS: cooperative ATTITUDE: Yes calm Course Vital Signs: Vital signs: Vital Signs Temperature 98.1 F 09/04/22 00:58 Pulse Rate 71 09/04/22 02:00 Respiratory Rate 26 H 09/04/22 02:00 Blood Pressure 124/46 09/04/22 02:00 Pulse Oximetry 93 09/04/22 02:00 Oxygen Delivery Me thod 09/04/22 01:04 CS T Oxygen Flow Rate 3 09/04/22 00:58 Fraction of Inspir ed Oxygen 35 09/04/22 01:06 CS T MDM - SOB/Dyspnea Medical Decision Making Blood gas shows a significant respiratory acidosis with a pH of 7.3 and PCO2 of 82. Bicarb is 40. Lactic acid is 0.6. White blood cell count is 8.7. Hemoglobin is 10. With significant respiratory acidosis, appears at least somewhat acute, she will be placed on BiPAP. Admitted. Spoke with hospitalist. Accepts. Lab Data : 09/04/22 01:00 SOLDERER ELECTRONIC 09/04/22 01:00 SOLDERER ELECTRONIC Labs/Radiology: Laboratory Results WBC 8.7 10^3/uL (4.0-10.0) 09/04/22 01:00 SOLDERER ELECTRONIC RBC 3.40 10^6/uL (4.1-5.3) L 09/04/22 01:00 SOLDERER ELECTRONIC Hgb 10.2 g/dL (11.5-15.3) L 09/04/22 01:00 SOLDERER ELECTRONIC Hct 34.5 % (37.0-47.0) L 09/04/22 01:00 SOLDERER ELECTRONIC MCV 101.5 fl (81-99) H 09/04/22 01:00 SOLDERER ELECTRONIC MCH 30.0 pg (28.0-34.0) 09/04/22 01:00 SOLDERER ELECTRONIC MCHC 29.6 g/dL (30.0-36.0) L 09/04/22 01:00 SOLDERER ELECTRONIC RDW 14.4 % (12.1-15.1) 09/04/22 01:00 SOLDERER ELECTRONIC Plt Count 154 10^3/cmm (130-400) 09/04/22 01:00 SOLDERER ELECTRONIC MPV 9.7 fL (7.4-10.4) 09/04/22 01:00 SOLDERER ELECTRONIC Neut % (Auto) 68.4 % 09/04/22 01:00 SOLDERER ELECTRONIC Lymph % (Auto) 23.2 % 09/04/22 01:00 SOLDERER ELECTRONIC [place] % (Auto) 5.5 % 09/04/22 01:00 SOLDERER ELECTRONIC Eos % (Auto) 2.1 % 09/04/22 01:00 SOLDERER ELECTRONIC Baso % (Auto) 0.6 % 09/04/22 01:00 SOLDERER ELECTRONIC Neut # (Auto) 5.94 10^3/uL (1.8-7.7) 09/04/22 01:00 SOLDERER ELECTRONIC Lymph # (Auto) 2.0 10^3/uL (0.8-4.8) 09/04/22 01:00 SOLDERER ELECTRONIC [place] # (Auto) 0.5 10^3/uL (0.2-0.9) 09/04/22 01:00 SOLDERER ELECTRONIC Eos # (Auto) 0.2 10^3/uL (0.0-0.8) 09/04/22 01:00 SOLDERER ELECTRONIC Baso # (Auto) 0.1 10^3/uL (0.0-0.1) 09/04/22 01:00 SOLDERER ELECTRONIC Nucleated RBC % (auto) 0 % 09/04/22 01:00 SOLDERER ELECTRONIC Nucleated RBCs # 0.0 /100WBC 09/04/22 01:00 SOLDERER ELECTRONIC PT 32.10 SECONDS (12.1-14.9) H 09/04/22 01:00 SOLDERER ELECTRONIC INR 3.09 (0.8-1.2) H 09/04/22 01:00 SOLDERER ELECTRONIC Specimen Type Arterial 09/04/22 01:39 SOLDERER ELECTRONIC Sample Site Radial, right 09/04/22 01:39 SOLDERER ELECTRONIC ABG pH 7.30 (7.35-7.45) L 09/04/22 01:39 SOLDERER ELECTRONIC ABG pCO2 82.7 mmHg (35-45) H* 09/04/22 01:39 SOLDERER ELECTRONIC ABG pO2 70.4 mmHg (80.0-100.0) L 09/04/22 01:39 SOLDERER ELECTRONIC ABG HCO3 40.5 mmol/L (22-26) H 09/04/22 01:39 SOLDERER ELECTRONIC ABG Base Excess 11.6 mmol/L (-2.0-2.0) H 09/04/22 01:39 SOLDERER ELECTRONIC [place] Test Pos 09/04/22 01:39 SOLDERER ELECTRONIC Hematocrit 30.4 % (37-47) L 09/04/22 01:39 SOLDERER ELECTRONIC Hgb O2 Saturation 90.6 % (95-100) L 09/04/22 01:39 SOLDERER ELECTRONIC Carboxyhemoglobin 1.9 %THgb (0.4-20.1) 09/04/22 01:39 SOLDERER ELECTRONIC Methemoglobin 1.0 % (0.4-1.5) 09/04/22 01:39 SOLDERER ELECTRONIC Total Hemoglobin 9.9 g/dL (12-16) L 09/04/22 01:39 SOLDERER ELECTRONIC O2 Delivery Device Nc 09/04/22 01:39 SOLDERER ELECTRONIC O2 Liters/Min 3.0 % 09/04/22 01:39 SOLDERER ELECTRONIC Inseam Trimming Machine Operator ID [place] 09/04/22 01:39 SOLDERER ELECTRONIC Sodium 144 mmol/L (136-145) 09/04/22 01:00 SOLDERER ELECTRONIC Potassium 3.9 mmol/L (3.5-5.1) 09/04/22 01:00 SOLDERER ELECTRONIC Chloride 98 mmol/L (98-107) 09/04/22 01:00 SOLDERER ELECTRONIC Carbon Dioxide 40 mmol/L (22-29) H 09/04/22 01:00 SOLDERER ELECTRONIC Anion Gap 9.9 (5-19) 09/04/22 01:00 SOLDERER ELECTRONIC BUN 14 mg/dL (8-23) 09/04/22 01:00 SOLDERER ELECTRONIC Creatinine 0.8 mg/dL (0.5-0.9) 09/04/22 01:00 SOLDERER ELECTRONIC GFR Calculation Not Reportable 09/04/22 01:00 SOLDERER ELECTRONIC Glucose 151 mg/dL (65-115) H 09/04/22 01:00 SOLDERER ELECTRONIC Calculated Osmolality 301 mOsm/kg (285-295) H 09/04/22 01:00 SOLDERER ELECTRONIC Lactic Acid 0.6 mmol/L (0.5-2.2) 09/04/22 01:00 SOLDERER ELECTRONIC Calcium 8.8 mg/dL (8.5-10.5) 09/04/22 01:00 SOLDERER ELECTRONIC Total Bilirubin 1.6 mg/dL (0.15-1.2) H 09/04/22 01:00 SOLDERER ELECTRONIC AST 12 U/L (0-32) 09/04/22 01:00 SOLDERER ELECTRONIC ALT < 5 U/L (0-33) 09/04/22 01:00 SOLDERER ELECTRONIC Alkaline Phosphatase 93 U/L (35-105) 09/04/22 01:00 SOLDERER ELECTRONIC C-Reactive Protein 15.8 mg/L (0.0-4.9) H 09/04/22 01:00 SOLDERER ELECTRONIC NT-Pro-B Natriuret Pep 577 pg/mL (0-450) H 09/04/22 01:00 SOLDERER ELECTRONIC Total Protein 6.9 g/dL (6.6-8.7) 09/04/22 01:00 SOLDERER ELECTRONIC Albumin 4.0 g/dL (3.5-5.2) 09/04/22 01:00 SOLDERER ELECTRONIC Globulin 2.9 g/dL (1.3-4.6) 09/04/22 01:00 SOLDERER ELECTRONIC Influenza Type A Ag negative (Negative) 09/04/22 02:08 Influenza Type B Ag negative (Negative) 09/04/22 02:08 SARS-CoV-2 Ag (Rapid) negative (Negative) 09/04/22 02:08 Discharge Plan Discharge Patient Disposition: Admitted As Inpatient Clinical Impression: Acute exacerbation of chronic obstructive airways disease, Congestive heart failure, Acute and chronic respiratory failure with hypercapnia Condition: Stable Coding Level of Care Code ED Vacuum Cleaner Repairer for Chg Fwd Exam Comprehensive
[2022-09-04 01:15] LABS: Lactic Sepsis W/Reflex 0.6 mmol/L (0.5-2.2)
--- NOTE | 2022-09-04 01:24 | XRR_ITS ---
PROCEDURE INFORMATION: Exam: XR Chest Exam date and time: 09/04/2022 1:56 AM Age: 82 years old Clinical indication: Shortness of breath; Prior surgery; Surgery date: 6+ months; Surgery type: Cabg; Additional info: SOB TECHNIQUE: Imaging protocol: Radiologic exam of the chest. Views: 1 view. COMPARISON: Chest x-ray 06/26/2022 9:27 AM FINDINGS: Lungs: Suspect mild pulmonary vascular congestion. Mild prominence of the perihilar lung markings bilaterally, with some peribronchial thickening. While nonspecific, this appearance may represent mild CHF/interstitial pulmonary edema. Some form of bronchitis/pneumonitis is not excluded. In addition, some of these findings could be chronic. Please correlate clinically. Poor inspiration somewhat limits evaluation. Pleural spaces: No visible pneumothorax. Possible small bilateral pleural effusions versus pleural thickening. Heart/Mediastinum: Mild to moderate cardiomegaly, essentially stable. Bones/joints: Prior median sternotomy and prosthetic heart valve. XR/XR chest 1V portable [id number] IMPRESSION: 1. Mild prominence of the perihilar lung markings bilaterally, with some peribronchial thickening. See above discussion. 2. Possible small bilateral pleural effusions versus pleural thickening. 3. Other findings discussed above.
[2022-09-04 01:25] LABS: Alanine Aminotransferase < 5 U/L (0-33); Alkaline Phosphatase 93 U/L (35-105); Anion Gap 9.9 (5-19); Aspartate Amino Transferase 12 U/L (0-32); Blood Urea Nitrogen 14 mg/dL (8-23); C Reactive Protein 15.8 mg/L (0.0-4.9); Calcium 8.8 mg/dL (8.5-10.5); Carbon Dioxide 40 mmol/L (22-29); Chloride 98 mmol/L (98-107); Globulin 2.9 g/dL (1.3-4.6); Glucose 151 mg/dL (65-115); NT Pro B Type Natriuretic Pept 577 pg/mL (0-450); Osmolality Calculated 301 mOsm/kg (285-295); Potassium 3.9 mmol/L (3.5-5.1); Sodium 144 mmol/L (136-145); Total Bilirubin 1.6 mg/dL (0.15-1.2); Total Protein 6.9 g/dL (6.6-8.7)
[2022-09-04 01:49] LABS: INR 3.09 (0.8-1.2)
[2022-09-04 01:50] LABS: Arterial Blood Gas Hematocrit 30.4 % (37-47); Base Excess ABG 11.6 mmol/L (-2.0-2.0); Blood Gas Allen Test Pos; Blood Gas Operator Identificat WALCI; Blood Gas Sample Site Radial, right; Blood Gas Sample Type Arterial; Carboxyhemoglobin 1.9 %THgb (0.4-20.1); HCO3 ABG 40.5 mmol/L (22-26); HGB O2 Sat 90.6 % (95-100); Oxygen Device NC; PO2 ABG 70.4 mmHg (80.0-100.0); Total Hemoglobin 9.9 g/dL (12-16)
[2022-09-04 01:51] LABS: ABG PCO2 82.7 mmHg (35-45)
[2022-09-04 01:59] LABS: Basophils # 0.1 10^3/uL (0.0-0.1); Basophils % 0.6 %; Eosinophils # 0.2 10^3/uL (0.0-0.8); Eosinophils % 2.1 %; Hematocrit 34.5 % (37.0-47.0); Hemoglobin 10.2 g/dL (11.5-15.3); Lymphocytes % 23.2 %; Mean Corpuscular HGB Conc 29.6 g/dL (30.0-36.0); Mean Corpuscular Volume 101.5 fl (81-99); Mean Platelet Volume 9.7 fL (7.4-10.4); Monocytes # 0.5 10^3/uL (0.2-0.9); Monocytes % 5.5 %; Neutrophils # 5.94 10^3/uL (1.8-7.7); Neutrophils % 68.4 %; Nucleated Red Blood Cells % 0 %; Platelet Count 154 10^3/cmm (130-400); Red Cell Distribution Width 14.4 % (12.1-15.1); White Blood Count 8.7 10^3/uL (4.0-10.0)
[2022-09-04 02:34] LABS: Influenza A by IFA negative (Negative); Influenza B by IFA negative (Negative)
[2022-09-04 02:35] LABS: SARS Covid-2 Antigen negative (Negative)
[2022-09-04] MEDS: FUROsemide 10 mg/mL SDV 10mL 60 MG IVP (02:57)
[2022-09-04 03:01] LABS: Procalcitonin 0.05 ng/mL (0-0.5)
--- NOTE | 2022-09-04 04:55 | P.HP_ITS ---
Providers/Chief Complaint Admitting Physician: Hellen Gallo MD Primary Care Provider: Michael Hampton DO Chief Complaint: SOB History of Present Illness Iris Garcia is a 82 year old female with past history of acute on chronic hypoxic and hypercapnic respiratory failure, restrictive lung disease, atrial fibrillation, congestive heart failure, chronic anticoagulation for mechanical mitral valve, hypertension, hypothyroidism, long term resident was brought in today because of worsening shortness of breath. It appears she was in her usual state of health when she went to sleep but woke up suddenly gasping for air on a CPAP. Oxygen requirements escalated quickly to need NRB. She received iv steroids en route to the ER. denies any cough, chest pain, palpitations at this time. In [facility] ER she needed to be placed on Bipap right away due to increased work of breathing. Review of Systems General: Reports: 10 or more systems reviewed and unremarkable except in HPI and below Const: Denies: fever(s), chills or body aches Eyes: Denies: change in vision, blurry vision or photophobia ENMT: Reports: hoarseness; Denies: throat pain, enlarged tonsils, odynophagia or nasal congestion Card: Denies: chest pain, palpitations, irregular heart rhythm, edema, swelling of feet/ankles, lightheadedness, pre-syncope, dyspnea on exertion or orthopnea Resp: Denies: dyspnea, productive cough, non-productive cough, wheezing, stridor, pain on inspiration, change in phlegm color, hemoptysis or chest congestion GI: Denies: abdominal pain, nausea, vomiting, hematemesis, coffee ground emesis, dysphagia, heartburn, diarrhea, constipation, GI cramping, change in stool character, hematochezia or melena : Denies: flank pain, difficulty voiding, dysuria, urinary frequency, urinary urgency, urinary hesitancy or hematuria Musc: Denies: neck pain, back pain, extremity pain, joint swelling, joint warmth or deformity Neuro: Denies: headache(s), numbness in extremities, weakness in extremities, sensory changes, difficulty walking, frequent falls, dizziness, vertigo, behavioral changes, Slurred speech present or seizure-like activity Psych: Denies: anxiety, depression, suicidal ideation or homicidal ideation Endo: Denies: polyuria, polydipsia, tired all the time, cold intolerance or hot flashes Jesus Alberto/Lymph: Denies: easy bruising or easy bleeding Medications/Allergies Home Medications Medication Instructions Recorded Confirmed Last Taken Type tolterodine 2 mg tablet 2 mg PO BID@03/12/20 09/01/22 06/25/22 History ferrous gluconate 324 mg (37.5 mg 324 mg PO BID 11/10/20 09/01/22 06/25/22 History iron) tablet potassium chloride 10 mEq 20 meq PO DAILY 11/10/20 09/01/22 06/25/22 History tablet,extended release (Klor-Con) sennosides 8.6 mg-docusate sodium 1 tab PO BID 11/10/20 09/01/22 06/25/22 History 50 mg tablet fluticasone 250 mcg-salmeterol 50 1 inh inhalation BID@09,209902/12/21 09/01/22 06/25/22 History mcg/dose blistr powdr for inhalation (Advair Diskus) nitroglycerin 0.4 mg sublingual 0.4 mg sublingual Q5M PRN Chest 02/12/21 09/01/22 03/16/22 History tablet Pain rosuvastatin 10 mg tablet 10 mg PO DAILY@209902/12/21 09/01/22 06/25/22 History albuterol sulfate 90 mcg/actuation 2 inh inhalation Q6H PRN Shortness 02/26/21 09/01/22 03/16/22 History aerosol inhaler Of Breath polyethylene glycol 3350 17 gram 17 g PO DAILY PRN Constipation 04/27/21 09/01/22 03/16/22 History oral powder packet (Miralax) acetaminophen 325 mg tablet 650 mg PO Q4H PRN Pain 08/09/21 09/01/22 03/16/22 History (Tylenol) carvedilol 6.25 mg tablet 6.25 mg PO BID 08/09/21 09/01/22 06/25/22 History levothyroxine 50 mcg tablet 50 mcg PO QAM 08/09/21 09/01/22 06/25/22 History carbidopa 10 mg-levodopa 100 mg 1 tab PO TID 11/08/21 09/01/22 06/25/22 History tablet warfarin 3 mg tablet See Rx Instructions .Route 0109/01/22 06/25/22 History .COMPLEX see pharmacy comments- albuterol sulfate 90 mcg/actuation 2 inh inhalation Q6H PRN shortness 03/12/22 09/01/22 03/16/22 History aerosol inhaler (Ventolin HFA) of breath or wheezing bisacodyl 10 mg rectal suppository [address] DAILY PRN Constipation 03/12/22 09/01/22 03/16/22 History citalopram 10 mg tablet 10 mg PO DAILY 03/12/22 09/01/22 06/25/22 History magnesium hydroxide 400 mg/5 mL 30 ml PO DAILY PRN Constipation 03/12/22 09/01/22 03/16/22 History oral suspension (Milk of Magnesia) sodium phosphates 19 gram-[address] DAILY PRN Constipation 03/12/22 09/01/22 03/16/22 History gram/118 mL enema (Fleet Enema) carboxymethylcellulose sodium 1 % 1 drp ophthalmic (eye) Q6H PRN Dry 06/26/22 Unknown History eye drops (Artificial Tears Eyes (carboxymethylcellulose)) cholecalciferol (vitamin D3) 50 50 mcg PO DAILY 06/26/22 09/01/22 06/25/22 History mcg (2,000 unit) capsule (Vitamin D3) omeprazole 40 mg capsule,delayed 40 mg PO DAILY 06/26/22 09/01/22 06/25/22 History release bumetanide 1 mg tablet 1 mg PO DAILY 08/12/22 09/01/22 Unknown History isosorbide mononitrate 30 mg 30 mg PO DAILY 08/12/22 09/01/22 Unknown History tablet,extended release 24 hr magnesium hydroxide 400 mg/5 mL 5 ml PO DAILY PRN 08/12/22 09/01/22 Unknown History oral suspension (Milk of Magnesia) Allergies Allergy/AdvReac Type Severity Reaction Status Date / Time penicillin G Allergy UNK Verified 09/01/22 11:08 PFSH Acute PFSH: Medical History Atrial fibrillation CAD (coronary artery disease) CHF (congestive heart failure) Chronic anticoagulation Due to mechanical mitral valve; coumadin Congestive heart failure COPD (chronic obstructive pulmonary disease) Depression GERD (gastroesophageal reflux disease) PPI HTN (hypertension) Hypothyroidism -continue levothyroxine Iron deficiency anemia Has required transfusion in past, last egd and colonoscopy ~2017 with diverticulosis and internal hemorrhoids, No pertinent past medical history neghx: dm,dvt/pe PCP: Radha Sellers GLOVE TURNER SONYA (obstructive sleep apnea) Pancytopenia Parkinson disease Follows up with Dr. Rainey in [place] Pulmonary hypertension Restrictive lung disease Schatzki's ring Subtherapeutic international normalized ratio (INR) Transient neurological symptoms Surgical History H/O mitral valve replacement with mechanical valve History of bilateral tubal ligation History of cholecystectomy History of total knee arthroplasty Left Mitral valve replaced Mechanical, on coumadin Status post open reduction and internal fixation (ORIF) of fracture Family History Mother CAD (coronary artery disease) Diabetes Daughter Ovarian cancer Father Stroke Other Hypertension Denies family history of Colon cancer Heart disease Hypercholesteremia Breast cancer Uterine cancer Thyroid disease Vitals/I&O/Wt Last Vital Signs Temp 98.1 F 09/04/22 00:58 Pulse 63 09/04/22 03:03 Resp 26 H 09/04/22 02:00 BP 124/46 09/04/22 02:00 Pulse Ox 96 09/04/22 03:03 O2 Del Method 09/04/22 03:38 O2 Flow Rate 3 09/04/22 00:58 FiO2 35 09/04/22 03:03 Weight last 48 hrs Weight 59.058 kg Weight 58.967 kg Physical Exam Narrative: General: dyspneic, on Bipap HEENT: PERRLA, pupils bilaterally equal and reactive, pallors not present Chest: B/L conducted breath sounds. Scattered wheezing all areas. CVS: S1-S2 regular, no murmurs, + tachycardia Abdomen: Soft, nontender Neuro: No focal deficits, no facial deformity, moves all extermities in bed. Data : 09/04/22 01:00 HOME HEALTH AIDE CAREGIVER 09/04/22 01:00 HOME HEALTH AIDE CAREGIVER Micro: Microbiology 09/04/22 01:15 HOME HEALTH AIDE CAREGIVER Blood Culture - Preliminary Blood SPECIMEN COLLECTED 09/04/22 01:15 HOME HEALTH AIDE CAREGIVER Blood Culture - Preliminary Blood SPECIMEN COLLECTED ABG Interpretation 1: 09/04/22 01:39 HOME HEALTH AIDE CAREGIVER ABG pH 7.30 L ABG pCO2 82.7 H* ABG pO2 70.4 L ABG HCO3 40.5 H ABG Base Excess 11.6 H Other data: Radiology Impressions Chest X-Ray 09/04/22 01:24 HOME HEALTH AIDE CAREGIVER IMPRESSION: 1. Mild prominence of the perihilar lung markings bilaterally, with some peribronchial thickening. See above discussion. 2. Possible small bilateral pleural effusions versus pleural thickening. 3. Other findings discussed above. Laboratory Results WBC 8.7 10^3/uL (4.0-10.0) 09/04/22 01:00 HOME HEALTH AIDE CAREGIVER RBC 3.40 10^6/uL (4.1-5.3) L 09/04/22 01:00 HOME HEALTH AIDE CAREGIVER Hgb 10.2 g/dL (11.5-15.3) L 09/04/22 01:00 HOME HEALTH AIDE CAREGIVER Hct 34.5 % (37.0-47.0) L 09/04/22 01:00 HOME HEALTH AIDE CAREGIVER MCV 101.5 fl (81-99) H 09/04/22 01:00 HOME HEALTH AIDE CAREGIVER MCH 30.0 pg (28.0-34.0) 09/04/22 01:00 HOME HEALTH AIDE CAREGIVER MCHC 29.6 g/dL (30.0-36.0) L 09/04/22 01:00 HOME HEALTH AIDE CAREGIVER RDW 14.4 % (12.1-15.1) 09/04/22 01:00 HOME HEALTH AIDE CAREGIVER Plt Count 154 10^3/cmm (130-400) 09/04/22 01:00 HOME HEALTH AIDE CAREGIVER MPV 9.7 fL (7.4-10.4) 09/04/22 01:00 HOME HEALTH AIDE CAREGIVER Neut % (Auto) 68.4 % 09/04/22 01:00 HOME HEALTH AIDE CAREGIVER Lymph % (Auto) 23.2 % 09/04/22 01:00 HOME HEALTH AIDE CAREGIVER Dupage % (Auto) 5.5 % 09/04/22 01:00 HOME HEALTH AIDE CAREGIVER Eos % (Auto) 2.1 % 09/04/22 01:00 HOME HEALTH AIDE CAREGIVER Baso % (Auto) 0.6 % 09/04/22 01:00 HOME HEALTH AIDE CAREGIVER Neut # (Auto) 5.94 10^3/uL (1.8-7.7) 09/04/22 01:00 HOME HEALTH AIDE CAREGIVER Lymph # (Auto) 2.0 10^3/uL (0.8-4.8) 09/04/22 01:00 HOME HEALTH AIDE CAREGIVER Dupage # (Auto) 0.5 10^3/uL (0.2-0.9) 09/04/22 01:00 HOME HEALTH AIDE CAREGIVER Eos # (Auto) 0.2 10^3/uL (0.0-0.8) 09/04/22 01:00 HOME HEALTH AIDE CAREGIVER Baso # (Auto) 0.1 10^3/uL (0.0-0.1) 09/04/22 01:00 HOME HEALTH AIDE CAREGIVER Nucleated RBC % (auto) 0 % 09/04/22 01:00 HOME HEALTH AIDE CAREGIVER Nucleated RBCs # 0.0 /100WBC 09/04/22 01:00 HOME HEALTH AIDE CAREGIVER PT 32.10 SECONDS (12.1-14.9) H 09/04/22 01:00 HOME HEALTH AIDE CAREGIVER INR 3.09 (0.8-1.2) H 09/04/22 01:00 HOME HEALTH AIDE CAREGIVER Specimen Type Arterial 09/04/22 01:39 HOME HEALTH AIDE CAREGIVER Sample Site Radial, right 09/04/22 01:39 HOME HEALTH AIDE CAREGIVER ABG pH 7.30 (7.35-7.45) L 09/04/22 01:39 HOME HEALTH AIDE CAREGIVER ABG pCO2 82.7 mmHg (35-45) H* 09/04/22 01:39 HOME HEALTH AIDE CAREGIVER ABG pO2 70.4 mmHg (80.0-100.0) L 09/04/22 01:39 HOME HEALTH AIDE CAREGIVER ABG HCO3 40.5 mmol/L (22-26) H 09/04/22 01:39 HOME HEALTH AIDE CAREGIVER ABG Base Excess 11.6 mmol/L (-2.0-2.0) H 09/04/22 01:39 HOME HEALTH AIDE CAREGIVER César Test Pos 09/04/22 01:39 HOME HEALTH AIDE CAREGIVER Hematocrit 30.4 % (37-47) L 09/04/22 01:39 HOME HEALTH AIDE CAREGIVER Hgb O2 Saturation 90.6 % (95-100) L 09/04/22 01:39 HOME HEALTH AIDE CAREGIVER Carboxyhemoglobin 1.9 %THgb (0.4-20.1) 09/04/22 01:39 HOME HEALTH AIDE CAREGIVER Methemoglobin 1.0 % (0.4-1.5) 09/04/22 01:39 HOME HEALTH AIDE CAREGIVER Total Hemoglobin 9.9 g/dL (12-16) L 09/04/22 01:39 HOME HEALTH AIDE CAREGIVER O2 Delivery Device Nc 09/04/22 01:39 HOME HEALTH AIDE CAREGIVER O2 Liters/Min 3.0 % 09/04/22 01:39 HOME HEALTH AIDE CAREGIVER Merchandise Supervisor ID Walci 09/04/22 01:39 HOME HEALTH AIDE CAREGIVER Sodium 144 mmol/L (136-145) 09/04/22 01:00 HOME HEALTH AIDE CAREGIVER Potassium 3.9 mmol/L (3.5-5.1) 09/04/22 01:00 HOME HEALTH AIDE CAREGIVER Chloride 98 mmol/L (98-107) 09/04/22 01:00 HOME HEALTH AIDE CAREGIVER Carbon Dioxide 40 mmol/L (22-29) H 09/04/22 01:00 HOME HEALTH AIDE CAREGIVER Anion Gap 9.9 (5-19) 09/04/22 01:00 HOME HEALTH AIDE CAREGIVER BUN 14 mg/dL (8-23) 09/04/22 01:00 HOME HEALTH AIDE CAREGIVER Creatinine 0.8 mg/dL (0.5-0.9) 09/04/22 01:00 HOME HEALTH AIDE CAREGIVER GFR Calculation Not Reportable 09/04/22 01:00 HOME HEALTH AIDE CAREGIVER Glucose 151 mg/dL (65-115) H 09/04/22 01:00 HOME HEALTH AIDE CAREGIVER Calculated Osmolality 301 mOsm/kg (285-295) H 09/04/22 01:00 HOME HEALTH AIDE CAREGIVER Lactic Acid 0.6 mmol/L (0.5-2.2) 09/04/22 01:00 HOME HEALTH AIDE CAREGIVER Calcium 8.8 mg/dL (8.5-10.5) 09/04/22 01:00 HOME HEALTH AIDE CAREGIVER Total Bilirubin 1.6 mg/dL (0.15-1.2) H 09/04/22 01:00 HOME HEALTH AIDE CAREGIVER AST 12 U/L (0-32) 09/04/22 01:00 HOME HEALTH AIDE CAREGIVER ALT < 5 U/L (0-33) 09/04/22 01:00 HOME HEALTH AIDE CAREGIVER Alkaline Phosphatase 93 U/L (35-105) 09/04/22 01:00 HOME HEALTH AIDE CAREGIVER C-Reactive Protein 15.8 mg/L (0.0-4.9) H 09/04/22 01:00 HOME HEALTH AIDE CAREGIVER NT-Pro-B Natriuret Pep 577 pg/mL (0-450) H 09/04/22 01:00 HOME HEALTH AIDE CAREGIVER Total Protein 6.9 g/dL (6.6-8.7) 09/04/22 01:00 HOME HEALTH AIDE CAREGIVER Albumin 4.0 g/dL (3.5-5.2) 09/04/22 01:00 HOME HEALTH AIDE CAREGIVER Globulin 2.9 g/dL (1.3-4.6) 09/04/22 01:00 HOME HEALTH AIDE CAREGIVER Procalcitonin 0.05 ng/mL (0-0.5) 09/04/22 01:00 HOME HEALTH AIDE CAREGIVER Influenza Type A Ag negative (Negative) 09/04/22 02:08 Influenza Type B Ag negative (Negative) 09/04/22 02:08 SARS-CoV-2 Ag (Rapid) negative (Negative) 09/04/22 02:08 A&P Assessment and plan (1) Acute exacerbation of chronic obstructive airways disease: (2) Acute and chronic respiratory failure with hypercapnia: (3) Chronic anticoagulation: (4) Pulmonary hypertension: (5) CHF (congestive heart failure): Qualifiers: Heart failure type: diastolic Heart failure chronicity: acute on chronic Qualified Code(s): I50.33 - Acute on chronic diastolic (congestive) heart failure Plan 82 F with known COPD presenting today with acute on chronic hypoxic and hypercapnic respiratory failure, likely multifactorial related to COPD exacerbation, congestive heart failure. Scheduled nebulization with DuoNeb every 6 hour, budesonide twice daily iv steroids Solu-Medrol 40 mg every 8 hourly.? oxygen supplementation keeping saturation over 88%. Continue Bipap. CXR with Mild prominence of the perihilar lung markings bilaterally, with some peribronchial thickening.? Echocardiogram 12/21 with diastolic heart failure, EF of 55%, severe LA enlargement, PASP 41 mmHg. At baseline Bumex 1 mg daily. Switch to IV Lasix 60 mg daily. Lam catheterization, daily weights, check input output charting. Continue home medications including carvedilol 6.25 mg twice daily, Imdur 15 mg daily, lisinopril 2.5 mg daily.? Continue other chronic medications including carbidopa levodopa, Celexa, iron, omeprazole, rosuvastatin, potassium supplementation. DNR/DNI. Dysphagia 3 diet Warfarin will suffice for DVT prophylaxis Attestations Medical Necessity Statement*: Admission for more than 2 midnights for management of acute on chronic hypoxic/hypercapnic respiratory failure Critical Care Time: The high probability of a clinically significant, sudden or life threatening deterioration of the patient's [respiratory,cardiac] system(s) required my full and direct attention, intervention and personal management. The critical care time is as shown. This time is in addition to time spent performing any reported procedures but includes the following: [x] Data and vital sign review and interpretation [x] Patient assessment, examination and intervention [x] Documentation [x] Medication orders and management Critical Care Time (min): 40 Coding Level of Care Code Acute Briar Cutter for Zackeryg Fwd Diagnoses Acute exacerbation of chronic obstructive airways disease J44.1 Acute and chronic respiratory failure with hypercapnia J96.22 Chronic anticoagulation Z79.01 Pulmonary hypertension I27.20 CHF (congestive heart failure) I50.33 Heart failure type: diastolic Heart failure chronicity: acute on chronic
[2022-09-04] MEDS: budesonide 0.5 mg/2 mL Neb INHALATION ×2 (07:48→20:43)
[2022-09-04] MEDS: pantoprazole DR 40 mg Tablet PO (09:22)
[2022-09-04] MEDS: citalopram 20 mg Tablet 10 MG PO (09:22)
[2022-09-04] MEDS: isosorbide mononitrate ER 30 mg Tablet PO (09:22)
[2022-09-04] MEDS: carvedilol 6.25 mg Tablet PO ×2 (09:22→17:16)
[2022-09-04] MEDS: tolterodine 2 mg Tablet PO ×2 (09:53→21:11)
[2022-09-04] MEDS: FUROsemide 10 mg/mL SDV 2mL 20 MG IVP (17:15)
[2022-09-04] MEDS: warfarin 3 mg Tablet PO (17:15)
[2022-09-04] MEDS: atorvastatin 40 mg Tablet 10 MG PO (21:14)
[2022-09-05] VITALS (90 sets, daily range): BP systolic 75–168; BP diastolic 33–91; PULSE 51–91; RESP 8–33; TEMP 36.6–37.1; O2SAT 76–100
[2022-09-05 03:15] LABS: Basophils % 0.4 %; Hematocrit 30.3 % (37.0-47.0); Hemoglobin 9.1 g/dL (11.5-15.3); Lymphocytes # 0.4 10^3/uL (0.8-4.8); Lymphocytes % 14.4 %; Mean Corpuscular Hemoglobin 30.1 pg (28.0-34.0); Mean Corpuscular Volume 100.3 fl (81-99); Mean Platelet Volume 9.6 fL (7.4-10.4); Monocytes # 0.1 10^3/uL (0.2-0.9); Monocytes % 3.8 %; Neutrophils # 2.13 10^3/uL (1.8-7.7); Nucleated Red Blood Cells % 0 %; Platelet Count 118 10^3/cmm (130-400); Red Blood Count 3.02 10^6/uL (4.1-5.3); Red Cell Distribution Width 14.5 % (12.1-15.1); White Blood Count 2.6 10^3/uL (4.0-10.0)
[2022-09-05 03:30] LABS: INR 3.26 (0.8-1.2)
[2022-09-05] MEDS: ipratropium-albuterol 3 mL Neb INHALATION ×4 (03:37→19:57)
[2022-09-05 03:42] LABS: Alanine Aminotransferase < 5 U/L (0-33); Albumin Level 3.4 g/dL (3.5-5.2); Alkaline Phosphatase 79 U/L (35-105); Anion Gap 7.4 (5-19); Aspartate Amino Transferase 10 U/L (0-32); Blood Urea Nitrogen 25 mg/dL (8-23); Calcium 8.8 mg/dL (8.5-10.5); Carbon Dioxide 40 mmol/L (22-29); Chloride 93 mmol/L (98-107); Globulin 2.7 g/dL (1.3-4.6); Glucose 134 mg/dL (65-115); Osmolality Calculated 290 mOsm/kg (285-295); Potassium 3.4 mmol/L (3.5-5.1); Sodium 137 mmol/L (136-145); Total Bilirubin 1.8 mg/dL (0.15-1.2); Total Protein 6.1 g/dL (6.6-8.7)
[2022-09-05 04:08] LABS: ABG PH Result 7.43 (7.35-7.45); Alveolar-Arterial Oxygen Gradi 8.4 mmHg (5-10); Arterial Blood Gas Hematocrit 29.5 % (37-47); Base Excess ABG 14.8 mmol/L (-2.0-2.0); Blood Gas Allen Test Pos; Blood Gas Sample Site Radial, right; Blood Gas Sample Type Arterial; Blood Gas Tidal Volume 0.32; Carboxyhemoglobin 1.6 %THgb (0.4-20.1); HCO3 ABG 41.4 mmol/L (22-26); HGB O2 Sat 96.9 % (95-100); Ionized Calcium Level - ABG 1.2 mmol/L (1.1-1.4); Methemoglobin 0.8 % (0.4-1.5); Oxygen Device BIPAP; Oxygen Saturation ABG 99.3; Potassium Level - ABG 3.5 mmol/L (3.5-5.0); Total Hemoglobin 9.6 g/dL (12-16)
[2022-09-05 04:11] LABS: ABG PCO2 62.9 mmHg (35-45)
[2022-09-05] MEDS: levothyroxine 50 mcg Tablet PO (05:15)
[2022-09-05] MEDS: budesonide 0.5 mg/2 mL Neb INHALATION ×2 (07:48→19:57)
[2022-09-05] MEDS: FUROsemide 10 mg/mL SDV 4mL 40 MG IVP ×2 (09:21→20:54)
[2022-09-05] MEDS: citalopram 20 mg Tablet 10 MG PO (09:22)
[2022-09-05] MEDS: carvedilol 6.25 mg Tablet PO ×2 (09:24→17:06)
[2022-09-05] MEDS: pantoprazole DR 40 mg Tablet PO (09:24)
[2022-09-05] MEDS: isosorbide mononitrate ER 30 mg Tablet PO (09:24)
[2022-09-05] MEDS: lidocaine 1% 5 ML in potassium chloride premix 100 ML 50 ML IV (09:25)
[2022-09-05] MEDS: tolterodine 2 mg Tablet PO ×2 (10:38→20:47)
--- NOTE | 2022-09-05 11:12 | P.PN_ITS ---
Subjective Subjective: Patient was seen and examined this morning, shortness of breath has improved, currently she was saturating well on 3 L supplemental oxygen. AM ABG reviewed. Medications: Medication Review Details: Generic Name Dose Route Start Last Admin Trade Name Delfin PRN Reason Stop Dose Admin Albuterol/Ipratrop ium 3 ml 09/04/22 05:15 09/05/22 07:48 Ipratropium-Albu terol 3 Ml Neb INHALATION 3 ml Q6H.RESP HARLAN Administration Atorvastatin Calci um 10 mg 09/04/22 21:00 09/04/22 21:14 Atorvastatin 40 Mg Tablet PO 10 mg DAILY@2100 HARLAN Administration Budesonide 0.5 mg 09/04/22 08:00 09/05/22 07:48 Budesonide 0.5 M g/2 Ml Neb INHALATION 0.5 mg BID.RESPIRATORY S CH Administration Carbidopa/Levodopa 1 each 09/04/22 09:00 09/05/22 09:53 Carbidopa-Levodo pa 10-100 Mg Table t PO 1 each TID HARLAN Administration Carvedilol 6.25 mg 09/04/22 09:00 09/05/22 09:24 Carvedilol 6.25 Mg Tablet PO 6.25 mg BID HARLAN Administration Citalopram Hydrobr omide 10 mg 09/04/22 09:00 09/05/22 09:22 Citalopram 20 Mg Tablet PO 10 mg DAILY HARLAN Administration Furosemide 40 mg 09/05/22 09:00 09/05/22 09:21 Furosemide 10 Mg /Ml Sdv 4ml IVP 40 mg Q12H HARLAN Administration Isosorbide Mononit rate 30 mg 09/04/22 09:00 09/05/22 09:24 Isosorbide Kendall itrate Er 30 Mg Ta blet PO 30 mg DAILY HARLAN Administration Levothyroxine Sodi um 50 mcg 09/04/22 06:00 09/05/22 05:15 Levothyroxine 50 Mcg Tablet PO 50 mcg QAM HARLAN Administration Methylprednisolone Sodium Succinate 40 mg 09/04/22 05:15 09/05/22 05:15 Methylprednisolo ne Sod Succ 40 Mg/ Ml Inj IVP 40 mg Q8H HARLAN Administration Pantoprazole Sodiu m 40 mg 09/04/22 09:00 09/05/22 09:[address] 40 Mg Tablet PO 40 mg DAILY HARLAN Administration Tolterodine Tartra te 2 mg 09/04/22 09:00 09/05/22 10:38 Tolterodine 2 Mg Tablet PO 2 mg BID@ [facility] Administration Warfarin Sodium 3 mg 09/04/22 18:00 09/04/22 17:15 Warfarin 3 Mg Ta blet PO 3 mg SuTuThSa@1800 HARLAN Administration Vitals/I&O/Wt Last Vital Signs Temp 97.9 F 09/05/22 07:45 Pulse 67 09/05/22 07:54 Resp 18 09/05/22 07:51 BP 113/45 09/05/22 07:45 Pulse Ox 96 09/05/22 07:51 O2 Del Method 09/05/22 07:51 O2 Flow Rate 4 09/05/22 07:45 FiO2 35 09/05/22 07:51 09/04/22 09/05/22 09/05/22 22:59 06:59 14:59 Intake Total 130 / 130 Output Total 350 / 850 400 / 1250 Balance -220 / -720 -400 / -1120 Weight last 48 hrs Weight 42.638 kg Weight 59.103 kg Weight 59.058 kg Weight 58.967 kg Physical Exam Resp: COMMON NORMALS: clear to auscultation bilaterally AUSCULTATION: clear to auscultation bilaterally Cardio: COMMON NORMALS: regular rate, regular rhythm, S1 normal heart sound present, S2 normal heart sound present, No gallops present (Cardio), No murmurs present (Cardio), No rub (Cardio) and Peripheral pulses 2+ throughout RATE: regular rate RHYTHM: regular rhythm HEART SOUNDS: S1 normal heart sound present and S2 normal heart sound present PERIPHERAL PULSES: Peripheral pulses 2+ throughout GI: COMMON NORMALS: Normal to inspection, nondistended, normoactive bowel sounds present, Soft to palpation, non-tender, No hepatosplenomegaly present and no masses AUSCULTATION: Yes normoactive bowel sounds PALPATION: Yes Soft to palpation and Yes No hepatosplenomegaly present RECTAL EXAM: deferred Extremity: COMMON NORMALS: no clubbing, cyanosis or edema and no pedal edema Urinary Catheter Management: Lam: Cath Placed During This Visit: no Reason for Continuing Indwelling Catheter: Accurate Measurement of Urinary Output in Critically Ill Patients Data : 09/05/22 02:41 09/05/22 02:41 Micro: Microbiology 09/04/22 01:15 DISEASE EDUCATION SPECIALIST Blood Culture - Preliminary Blood NEGATIVE TO DATE 09/04/22 01:15 DISEASE EDUCATION SPECIALIST Blood Culture - Preliminary Blood NEGATIVE TO DATE A&P Assessment and plan (1) Acute exacerbation of chronic obstructive airways disease: (2) Acute and chronic respiratory failure with hypercapnia: (3) Chronic anticoagulation: (4) Pulmonary hypertension: (5) CHF (congestive heart failure): Qualifiers: Heart failure chronicity: acute on chronic Heart failure type: diastolic Qualified Code(s): I50.33 - Acute on chronic diastolic (congestive) heart failure Plan ?82 year old female severe RLD, chronic hypercapneic respiratory failure, on trilogy at home, pulmonary hypertension, HFpEF,?hypothyroidism A fib, mechanical mitral valve, recent history of posttraumatic subarachnoid hemorrhage was brought in with chief complaint of?worsening shortness of breath. Currently she is being managed for Assessment Acute on chronic hypoxic hypercapnic respiratory failure: Likely secondary to decompensated heart failure, COPD exacerbation. severe RLD hypertension HFpEF hypothyroidism A fib mechanical mitral valve Plan: X-ray chest on admission has shown: Mild prominence of the perihilar lung markings bilaterally, with some peribronchial thickening. See above discussion.Possible small bilateral pleural effusions versus pleural thickening. Most recent 2D echo has been reviewed done in November 2021:Normal left ventricular cavity size, wall thickness and ?systolic function. Left ventricular ejection fraction is estimated at 55%. No diagnostic regional wall motion ?abnormality. Abnormal septal motion. Severely increased left atrial size. Pulmonary artery pressure estimated at 41 mm Hg Continue Lasix 40 mg IV twice daily Monitor intake output charting Monitor daily weight Monitor electrolytes DuoNebs Solu-Medrol 40 IV every 8h Continue BiPAP Supplemental oxygen as needed Continue Imdur carvedilol, levothyroxine, warfarin Continue other chronic home medications DVT prophylaxis not needed on warfarin Attestations Medical Necessity Statement*: Patient is to be in hospital for management of acute on chronic respiratory failure. Coding Level of Care Code Acute Integration Developer for Zackeryg Fwd Exam Expanded Problem Focused Diagnoses Acute exacerbation of chronic obstructive airways disease J44.1 Acute and chronic respiratory failure with hypercapnia J96.22 Chronic anticoagulation Z79.01 Pulmonary hypertension I27.20 CHF (congestive heart failure) I50.33 Heart failure chronicity: acute on chronic Heart failure type: diastolic
--- NOTE | 2022-09-05 12:20 | PC.CHAP ---
Pastoral Care Encounter/Spiritual Assessment Type of Contact [] Declined medical collections specialist visit [] Patient/Family/Request visit [] Outpatient visit [] Follow-up visit [] Physician referral [] Code/Alert [x] Routine visit [] Staff referral [] Actively dying [x] Patient sleeping [] Family support [] [] Out of room [] Palliative care [] [] Receiving care in room [] Pre-surgical visit [] Trauma [] Long length of stay [x] ICU visit [] Other: Relational/Emotional Strength [] Patient feels connected with others/family/visitors/staff [] Distress [] Loneliness/isolation [] Abandonment Spirituality of Patient [] Person of Vivian [] Attends Yazdanism of their Vivian [] Believes in Prayer [] Reads Bible or Methodist materials [] There are Spiritual issues to be addressed Recovery Rn Interventions [] Prayer [] Active listening [] Non-anxious presence [] Spiritual/emotional support [] Crisis/trauma care [] Spiritual counseling [] Bereavement support [] Provided bereavement packet [] Provided Bible/devotional materials [] Provided toy/stuffed animal, coloring book to patient or family member [] Provided Communion [] Anointing/[place] [] Salvation [] Completed spiritual assessment [] Other: Impact on Illness or Injury [] Angry [] Fearful [] Anxious [] Often cries [] Exhaustion [] Unable to work [] Unable to attend baptist [] Unable to walk/stand [] Unable to read [] Unable to drive [] Unable to eat/drink [] Unable to sleep [] Unable to be with family [] Patient intubated [] Other: Summary Time spent with patient
[2022-09-05] MEDS: warfarin 2 mg Tablet 4 MG PO (17:06)
[2022-09-05] MEDS: atorvastatin 40 mg Tablet 10 MG PO (20:46)
[2022-09-06] VITALS (11 sets, daily range): BP systolic 138–159; BP diastolic 44–68; PULSE 52–81; RESP 18–30; TEMP 36.8–36.9; O2SAT 95–98
[2022-09-06] MEDS: ipratropium-albuterol 3 mL Neb INHALATION ×2 (03:17→08:13)
[2022-09-06] MEDS: levothyroxine 50 mcg Tablet PO (05:26)
[2022-09-06 06:41] LABS: INR 4.51 (0.8-1.2)
[2022-09-06] MEDS: budesonide 0.5 mg/2 mL Neb INHALATION (08:14)
[2022-09-06] MEDS: citalopram 20 mg Tablet 10 MG PO (08:47)
[2022-09-06] MEDS: potassium chloride ER 20 mEq Tablet 40 MEQ PO (08:47)
[2022-09-06] MEDS: pantoprazole DR 40 mg Tablet PO (08:47)
[2022-09-06] MEDS: tolterodine 2 mg Tablet PO (08:47)
[2022-09-06] MEDS: isosorbide mononitrate ER 30 mg Tablet PO (08:47)
[2022-09-06] MEDS: FUROsemide 10 mg/mL SDV 4mL 40 MG IVP (08:47)
[2022-09-06] MEDS: carvedilol 6.25 mg Tablet PO (08:47)
--- NOTE | 2022-09-06 09:38 | P.DS_ITS ---
Discharge Providers Date of Admission: 09/04/22 02:36 Date of Discharge: September 06, 2022 Attending Provider at Admission: Hellen Gallo MD Attending Provider at Discharge: Serg Perales MD Primary Care Provider: Michael Hampton DO Diagnoses at Discharge Discharge Diagnosis (1) Acute exacerbation of chronic obstructive airways disease: Status: Acute (2) Acute and chronic respiratory failure with hypercapnia: Status: Acute (3) Chronic anticoagulation: Status: Acute Permanent problem details: Due to mechanical mitral valve; coumadin (4) Pulmonary hypertension: Status: Acute (5) CHF (congestive heart failure): Status: Acute Qualifiers: Heart failure chronicity: acute on chronic Heart failure type: diastolic Qualified Code(s): I50.33 - Acute on chronic diastolic (congestive) heart failure Reason for Visit Reason for Visit: SOB Hospital Course Hospital Course 82 year old female with past medical history severe RLD, chronic hypercapneic respiratory failure, on trilogy at home, pulmonary hypertension, HFpEF,?hypothyroidism A fib, mechanical mitral valve, recent history of posttraumatic subarachnoid hemorrhage was brought in with chief complaint of?worsening shortness of breath. During the hospital stay she was managed for: Acute on chronic hypoxic hypercapnic respiratory failure: Likely secondary to decompensated heart failure,COPD exacerbation.she was also managed for severe RLD hypertension,HFpEF,hypothyroidism, A fib.X-ray chest on admission has shown:? Mild prominence of the perihilar lung markings bilaterally, with some peribronchial thickening. See above discussion.Possible small bilateral pleural effusions versus pleural thickening.Most recent 2D echo has been reviewed done in November 2021:Normal left ventricular cavity size, wall thickness and?systolic function. Left ventricular ejection fraction is estimated at 55%. No diagnostic regional wall motion abnormality. Abnormal septal motion. Severely increased left atrial size. Pulmonary artery pressure estimated at 41 mm Hg. She was kept on IV diuresis, intake output charting was monitored daily weight weight was done, electrolytes were corrected She was kept on steroids duo nebs BiPAP, ABG was monitored ,and other conservative respiratory support measures, to which she responded well. At the time of discharge she was back to her baseline respiratory status, she was saturating well on baseline home oxygen, was alert awake oriented, denied any significant shortness of breath. She is being discharged in stable condition to [facility].She has been continued on her home medications. Physical Exam Resp: COMMON NORMALS: clear to auscultation bilaterally AUSCULTATION: clear to auscultation bilaterally Cardio: COMMON NORMALS: regular rate, regular rhythm, S1 normal heart sound present, S2 normal heart sound present, No gallops present (Cardio), No rub (Cardio) and Peripheral pulses 2+ throughout RATE: regular rate RHYTHM: regular rhythm HEART SOUNDS: S1 normal heart sound present and S2 normal heart sound present PERIPHERAL PULSES: Peripheral pulses 2+ throughout OTHER: Mechanical mitral cliCK noted in mitral area GI: COMMON NORMALS: Normal to inspection, nondistended, normoactive bowel sounds present, Soft to palpation, non-tender, No hepatosplenomegaly present and no masses AUSCULTATION: Yes normoactive bowel sounds PALPATION: Yes Soft to palpation and Yes No hepatosplenomegaly present RECTAL EXAM: deferred Extremity: COMMON NORMALS: no clubbing, cyanosis or edema and no pedal edema Urinary Catheter Management: Lam: Cath Placed During This Visit: no Reason for Continuing Indwelling Catheter: Accurate Measurement of Urinary Output in Critically Ill Patients Discharge Data Studies Completed and Pending Completed Studies During Hospitalization Category Date Time Status XR chest 1V portable [id number] Stat Exams 09/04/22 01:24 Completed Pending at discharge Category Date Time Status Blood Culture Stat Lab 09/04/22 01:15 Results Prothrombin Time INR AM LABS Lab 09/07/22 04:00 Ordered SARS Covid-2 Antigen Routine Lab 09/06/22 09:30 Uncollected Radiology Impressions Chest X-Ray 09/04/22 01:24 BRUSH TRIMMING MACHINE SETTER IMPRESSION: 1. Mild prominence of the perihilar lung markings bilaterally, with some peribronchial thickening. See above discussion. 2. Possible small bilateral pleural effusions versus pleural thickening. 3. Other findings discussed above. Laboratory Results WBC 2.6 10^3/uL (4.0-10.0) L 09/05/22 02:41 RBC 3.02 10^6/uL (4.1-5.3) L 09/05/22 02:41 Hgb 9.1 g/dL (11.5-15.3) L 09/05/22 02:41 Hct 30.3 % (37.0-47.0) L 09/05/22 02:41 MCV 100.3 fl (81-99) H 09/05/22 02:41 MCH 30.1 pg (28.0-34.0) 09/05/22 02:41 MCHC 30.0 g/dL (30.0-36.0) 09/05/22 02:41 RDW 14.5 % (12.1-15.1) 09/05/22 02:41 Plt Count 118 10^3/cmm (130-400) L 09/05/22 02:41 MPV 9.6 fL (7.4-10.4) 09/05/22 02:41 Neut % (Auto) 81.0 % 09/05/22 02:41 Lymph % (Auto) 14.4 % 09/05/22 02:41 Gosper % (Auto) 3.8 % 09/05/22 02:41 Eos % (Auto) 0.0 % 09/05/22 02:41 Baso % (Auto) 0.4 % 09/05/22 02:41 Neut # (Auto) 2.13 10^3/uL (1.8-7.7) 09/05/22 02:41 Lymph # (Auto) 0.4 10^3/uL (0.8-4.8) L 09/05/22 02:41 Gosper # (Auto) 0.1 10^3/uL (0.2-0.9) L 09/05/22 02:41 Eos # (Auto) 0.0 10^3/uL (0.0-0.8) 09/05/22 02:41 Baso # (Auto) 0.0 10^3/uL (0.0-0.1) 09/05/22 02:41 Nucleated RBC % (auto) 0 % 09/05/22 02:41 Nucleated RBCs # 0.0 /100WBC 09/05/22 02:41 PT 43.00 SECONDS (12.1-14.9) H 09/06/22 03:36 INR 4.51 (0.8-1.2) H 09/06/22 03:36 Specimen Type Arterial 09/05/22 04:00 Sample Site Radial, right 09/05/22 04:00 ABG pH 7.43 (7.35-7.45) 09/05/22 04:00 ABG pCO2 62.9 mmHg (35-45) H* 09/05/22 04:00 ABG pO2 110.0 mmHg (80.0-100.0) H 09/05/22 04:00 ABG HCO3 41.4 mmol/L (22-26) H 09/05/22 04:00 ABG O2 Saturation 99.3 09/05/22 04:00 ABG Base Excess 14.8 mmol/L (-2.0-2.0) H 09/05/22 04:00 César Test Pos 09/05/22 04:00 A-a O2 Gradient 8.4 mmHg (5-10) 09/05/22 04:00 Hematocrit 29.5 % (37-47) L 09/05/22 04:00 Hgb O2 Saturation 96.9 % (95-100) 09/05/22 04:00 Carboxyhemoglobin 1.6 %THgb (0.4-20.1) 09/05/22 04:00 Methemoglobin 0.8 % (0.4-1.5) 09/05/22 04:00 Total Hemoglobin 9.6 g/dL (12-16) L 09/05/22 04:00 Sodium 142.0 mmol/L (131-143) 09/05/22 04:00 Potassium 3.5 mmol/L (3.5-5.0) 09/05/22 04:00 Glucose 133.0 mg/dL (70-115) H 09/05/22 04:00 Ionized Calcium 1.2 mmol/L (1.1-1.4) 09/05/22 04:00 O2 Delivery Device Bipap 09/05/22 04:00 O2 Liters/Min 3.0 % 09/04/22 01:39 BRUSH TRIMMING MACHINE SETTER FiO2 35.0 % 09/05/22 04:00 Tidal Volume 0.32 09/05/22 04:00 PEEP 8.0 cmH20 09/05/22 04:00 Rn Ambulatory ID ellpe 09/05/22 04:00 Sodium 137 mmol/L (136-145) 09/05/22 02:41 Potassium 3.4 mmol/L (3.5-5.1) L 09/05/22 02:41 Chloride 93 mmol/L (98-107) L 09/05/22 02:41 Carbon Dioxide 40 mmol/L (22-29) H 09/05/22 02:41 Anion Gap 7.4 (5-19) 09/05/22 02:41 BUN 25 mg/dL (8-23) H 09/05/22 02:41 Creatinine 0.7 mg/dL (0.5-0.9) 09/05/22 02:41 GFR Calculation Not Reportable 09/05/22 02:41 Glucose 134 mg/dL (65-115) H 09/05/22 02:41 Calculated Osmolality 290 mOsm/kg (285-295) 09/05/22 02:41 Lactic Acid 0.6 mmol/L (0.5-2.2) 09/04/22 01:00 BRUSH TRIMMING MACHINE SETTER Calcium 8.8 mg/dL (8.5-10.5) 09/05/22 02:41 Total Bilirubin 1.8 mg/dL (0.15-1.2) H 09/05/22 02:41 AST 10 U/L (0-32) 09/05/22 02:41 ALT < 5 U/L (0-33) 09/05/22 02:41 Alkaline Phosphatase 79 U/L (35-105) 09/05/22 02:41 C-Reactive Protein 15.8 mg/L (0.0-4.9) H 09/04/22 01:00 BRUSH TRIMMING MACHINE SETTER NT-Pro-B Natriuret Pep 577 pg/mL (0-450) H 09/04/22 01:00 BRUSH TRIMMING MACHINE SETTER Total Protein 6.1 g/dL (6.6-8.7) L 09/05/22 02:41 Albumin 3.4 g/dL (3.5-5.2) L 09/05/22 02:41 Globulin 2.7 g/dL (1.3-4.6) 09/05/22 02:41 Procalcitonin 0.05 ng/mL (0-0.5) 09/04/22 01:00 BRUSH TRIMMING MACHINE SETTER Influenza Type A Ag negative (Negative) 09/04/22 02:08 Influenza Type B Ag negative (Negative) 09/04/22 02:08 SARS-CoV-2 Ag (Rapid) negative (Negative) 09/04/22 02:08 Vitals Last Vital Signs Temp 98.4 F 09/06/22 07:47 Pulse 55 L 09/06/22 08:16 Resp 20 H 09/06/22 08:00 BP 138/51 09/06/22 07:47 Pulse Ox 98 09/06/22 08:00 O2 Del Method 09/06/22 08:00 O2 Flow Rate 3 09/06/22 08:00 FiO2 35 09/06/22 07:47 Discharge Plan Discharge Patient Disposition: Home Condition: Stable Prescriptions: Continued tolterodine 2 mg tablet 2 mg PO BID@ isosorbide mononitrate 30 mg tablet extended release 24 hr 30 mg PO DAILY bumetanide 1 mg tablet 1 mg PO DAILY nitroglycerin 0.4 mg Tablet, Sublingual 0.4 mg SUBLINGUAL Q5M PRN (Reason: Chest Pain) rosuvastatin 10 mg tablet 10 mg PO DAILY@2099 fluticasone propion-salmeterol [Advair Diskus] 250-50 mcg/dose blister with device 1 inh inhalation BID@0900,2099 polyethylene glycol 3350 [Miralax] 17 gram powder in packet 17 g PO DAILY PRN (Reason: Constipation) albuterol sulfate 90 mcg/actuation Hfa Aerosol Inhaler 2 inh INHALATION Q6H PRN (Reason: Shortness Of Breath) acetaminophen [Tylenol] 325 mg Tablet 650 mg PO Q4H PRN (Reason: Pain) levothyroxine 50 mcg tablet 50 mcg PO QAM carbidopa-levodopa 10-100 mg tablet 1 tab PO TID potassium chloride [Klor-Con 10] 10 mEq tablet extended release 20 meq PO DAILY ferrous gluconate 324 mg (37.5 mg iron) tablet 324 mg PO BID sennosides-docusate sodium 8.6-50 mg tablet 1 tab PO BID warfarin 4 mg Tablet 4 mg PO DAILY Dulcolax (bisacodyl) 10 mg Suppository 10 mg AL DAILY PRN (Reason: Constipation) citalopram 10 mg Tablet 10 mg PO DAILY magnesium hydroxide [Milk of Magnesia] 400 mg/5 mL Suspension 30 ml PO DAILY PRN (Reason: Constipation) Fleet Enema 19-7 gram/118 mL Enema 118 ml AL DAILY PRN (Reason: Constipation) albuterol sulfate [Ventolin HFA] 90 mcg/actuation HFA aerosol inhaler 2 inh inhalation Q6H PRN (Reason: shortness of breath or wheezing) omeprazole 40 mg Capsule,Delayed Release(Dr/Ec) 40 mg PO DAILY cholecalciferol (vitamin D3) [Vitamin D3] 50 mcg (2,000 unit) Capsule 50 mcg PO DAILY Artificial Tears (cmc) 1 % Drops 1 drp OPHTHALMIC (EYE) Q6H PRN (Reason: Dry Eyes) Discharge Orders: Discharge Order (Routine); Ordered 09/06/22 Ordered By: Serg Perales Referrals: Michael Hampton DO [Primary Care Provider] - 09/14/22 1:40 pm Patient Instructions: Opioid Safety Discharge Attestations Time Spent in Discharge Care*: less than 30 min Status at Discharge: Cognitive status at discharge: cognitively intact , Behavioral status at discharge: cooperative , Quality Metrics Clinical Quality Measures [ No reported AMI, CVA or VTE this stay] Coding Level of Care Code Acute Chg FW DC note Diagnoses Acute exacerbation of chronic obstructive airways disease J44.1 Acute and chronic respiratory failure with hypercapnia J96.22 Chronic anticoagulation Z79.01 Pulmonary hypertension I27.20 CHF (congestive heart failure) I50.33 Heart failure chronicity: acute on chronic Heart failure type: diastolic
--- NOTE | 2022-09-06 11:58 | PC.CHAP ---
Pastoral Care Encounter/Spiritual Assessment Type of Contact [] Declined medical technicians visit [] Patient/Family/Request visit [] Outpatient visit [] Follow-up visit [] Physician referral [] Code/Alert [x] Routine visit [] Staff referral [] Actively dying [] Patient sleeping [x] Family support [] [] Out of room [] Palliative care [] [] Receiving care in room [] Pre-surgical visit [] Trauma [] Long length of stay [x] ICU visit [x] Other: PT enjoying breakfast Relational/Emotional Strength [] Patient feels connected with others/family/visitors/staff [] Distress [] Loneliness/isolation [] Abandonment Spirituality of Patient [] Person of Vivian [] Attends Congregational of their Vivian [] Believes in Prayer [] Reads Bible or Christianity materials [] There are Spiritual issues to be addressed Joiner Interventions [x] Prayer [] Active listening [] Non-anxious presence [] Spiritual/emotional support [] Crisis/trauma care [] Spiritual counseling [] Bereavement support [] Provided bereavement packet [] Provided Bible/devotional materials [] Provided toy/stuffed animal, coloring book to patient or family member [] Provided Communion [] Anointing/[place] [] Salvation [x] Completed spiritual assessment [] Other: Impact on Illness or Injury [] Angry [] Fearful [] Anxious [] Often cries [] Exhaustion [] Unable to work [] Unable to attend mandaeism [] Unable to walk/stand [] Unable to read [] Unable to drive [] Unable to eat/drink [] Unable to sleep [] Unable to be with family [] Patient intubated [] Other: Summary Time spent with patient
[2022-09-06 12:02] LABS: SARS Covid-2 Antigen negative (Negative)
--- NOTE | 2022-09-06 13:00 | PC.NURSE ---
Report to [facility] Report called to Priya at [facility]. Copy of report sheet placed in D/C packet. Pt's IV d/c. Pt's piña removed and has voided. Pt dressed in own clothes. [facility] picked pt up via transport van using a wheelchair and pt on 3l/NC
== END 2022-09-06 14:04 | disposition skilled nursing facility (03) | DRG 291 ==
LOC: ER 02:35 → ICU 02:48
PROVIDERS: Admitting Provider Student in an Organized Health Care Education/Training Program; Emergency Provider Emergency Medicine; PCP Family Medicine; Visit Provider Internal Medicine
DX: I11.0 Hypertensive heart disease with heart failure (principal); I50.33 Acute on chronic diastolic (congestive) heart failure; J96.22 Acute and chronic respiratory failure with hypercapnia; J96.21 Acute and chronic respiratory failure with hypoxia; J44.1 Chronic obstructive pulmonary disease with (acute) exacerbation; I48.91 Unspecified atrial fibrillation; Z79.01 Long term (current) use of anticoagulants; Z95.2 Presence of prosthetic heart valve; Z99.89 Dependence on other enabling machines and devices; I25.10 Atherosclerotic heart disease of native coronary artery without angina pectoris; F32.A Depression, unspecified; K21.9 Gastro-esophageal reflux disease without esophagitis; E03.9 Hypothyroidism, unspecified; G47.33 Obstructive sleep apnea (adult) (pediatric); G20 Parkinson's disease; I27.20 Pulmonary hypertension, unspecified; Z96.652 Presence of left artificial knee joint; Z79.51 Long term (current) use of inhaled steroids
CPT/HCPCS: 36415; 36600; 51702; 71045; 76830; 76856; 80051; 80053; 82330; 82805; 83605; 83880; 84145; 85025; 85610; 86140; 87040; 87426; 87804; 93005; 94640; 94660; 96374; 96375; 99291; J1940; J2920; J2930; J3480; J7626

== ENCOUNTER 2022-09-18 08:58 | Emergency (ER) | payer MEDICARE, MEDICAID, SELFPAY ==
[2022-09-18] VITALS (65 sets, daily range): BP systolic 122–187; BP diastolic 31–78; PULSE 64–107; RESP 19–32; TEMP 36.4; O2SAT 84–100
--- NOTE | 2022-09-18 09:13 | XRR_ITS ---
PROCEDURE INFORMATION: Exam: XR Chest Exam date and time: 09/18/2022 10:40 AM Age: 82 years old Clinical indication: Shortness of breath; Additional info: SOB TECHNIQUE: Imaging protocol: Radiologic exam of the chest. Views: 1 view. COMPARISON: CR (CHEST, ) 09/04/2022 1:56 AM FINDINGS: Lungs: There is diffuse interstitial prominence. There is a calcified granuloma in the lateral aspect of the right upper lobe. There is mild peribronchial wall thickening. Focal opacity or elongated nodule at the left base. No pulmonary consolidation. Pleural spaces: No pleural effusion. No pneumothorax. Heart/Mediastinum: The cardiac silhouette is unchanged. No gross evidence of pneumomediastinum. Bones/joints: Median sternotomy wires and a prosthetic cardiac valve are noted. No gross fracture. XR/XR chest 1V portable [id number] IMPRESSION: 1. There is mild peribronchial wall thickening; query viral infection/bronchitis, chronic bronchitis and/or asthma. 2. Diffuse interstitial prominence. 3. Focal opacity or elongated nodule at the left base. 4. Recommend CT chest to better characterize.
--- NOTE | 2022-09-18 09:14 | W.ED.SOB ---
HPI - SOB/Dyspnea General: Chief Complaint: Shortness of Breath/Dyspnea Stated Complaint: SOB Time Seen by Provider: 09/18/22 09:12 History of Present Illness: HPI Narrative: 82-year-old female presents with shortness of breath. Patient has known history of COPD and lives in the residential. assisted called with reports of low oxygen. Patient normally on 3 L. EMS reports that when they arrived the route they gave her a DuoNeb and her oxygen improved into the mid 90s. Patient does have a DNR in place. No reports of fever, chills. There is a reported cough. Associated symptoms: Deny chest pain, dizziness, fever(s) or palpitations Review of Systems General: Reports: Other (Patient has mild complaints and does not talk much, so limited HPI) Const: Denies: fever(s) or chills Card: Denies: chest pain or palpitations Resp: Reports: dyspnea and non-productive cough : Denies: flank pain Skin/Breast: Denies: rash Neuro: Denies: headache(s) or dizziness PFSH ED PFSH: Medical History Atrial fibrillation CAD (coronary artery disease) CHF (congestive heart failure) Chronic anticoagulation Due to mechanical mitral valve; coumadin Congestive heart failure COPD (chronic obstructive pulmonary disease) Depression GERD (gastroesophageal reflux disease) PPI HTN (hypertension) Hypothyroidism -continue levothyroxine Iron deficiency anemia Has required transfusion in past, last egd and colonoscopy ~2017 with diverticulosis and internal hemorrhoids, No pertinent past medical history neghx: dm,dvt/pe PCP: Radha Sellers IMPORT/EXPORT SPECIALIST SONYA (obstructive sleep apnea) Pancytopenia Parkinson disease Follows up with Dr. Rainey in [place] Pulmonary hypertension Restrictive lung disease Schatzki's ring Subtherapeutic international normalized ratio (INR) Transient neurological symptoms Surgical History H/O mitral valve replacement with mechanical valve History of bilateral tubal ligation History of cholecystectomy History of total knee arthroplasty Left Mitral valve replaced Mechanical, on coumadin Status post open reduction and internal fixation (ORIF) of fracture Family History Mother CAD (coronary artery disease) Diabetes Daughter Ovarian cancer Father Stroke Other Hypertension Denies family history of Colon cancer Heart disease Hypercholesteremia Breast cancer Uterine cancer Thyroid disease Physical Exam Const: GENERAL APPEARANCE: frail appearing HENMT: COMMON NORMALS: normocephalic and Normal nasal mucous membranes and turbinates present HEAD & SCALP: normocephalic NOSE: Normal nasal mucous membranes and turbinates present Resp: COMMON NORMALS: normal respiratory effort AUSCULTATION: no wheezes and diminished lung sounds Cardio: COMMON NORMALS: regular rate and regular rhythm RATE: regular rate RHYTHM: regular rhythm GI: COMMON NORMALS: Soft to palpation and non-tender PALPATION: Yes Soft to palpation Extremity: COMMON NORMALS: capillary refill normal Neuro: SENSORIUM/ORIENTATION: Yes somnolent Skin: COMMON NORMALS: no rashes or lesions noted GENERAL SKIN EXAM: no rashes or lesions noted Course Vital Signs: Vital signs: Vital Signs Temperature 97.5 F L 09/18/22 09:00 Pulse Rate 71 09/18/22 12:10 Respiratory Rate 28 H 09/18/22 12:10 Blood Pressure 122/58 09/18/22 12:10 Pulse Oximetry 100 09/18/22 12:10 Oxygen Delivery Me thod 09/18/22 11:21 Oxygen Flow Rate 2 09/18/22 11:21 MDM - SOB/Dyspnea Medical Decision Making Patient's O2 saturations remained in mid to upper 90s throughout her stay on her baseline 3 L. Patient was given a Solu-Medrol in the ER with another DuoNeb. Patient is feeling much better. She does have a questionable pneumonia on CT. I will start her on azithromycin along with 3 days of steroids. Patient is stable and discharged back to the residential. Lab Data 09/18/22 09:03 09/18/22 09:03 Labs/Radiology: Radiology Impressions Chest X-Ray 09/18/22 09:13 IMPRESSION: 1. There is mild peribronchial wall thickening; query viral infection/bronchitis, chronic bronchitis and/or asthma. 2. Diffuse interstitial prominence. 3. Focal opacity or elongated nodule at the left base. 4. Recommend CT chest to better characterize. Chest CT 09/18/22 11:05 IMPRESSION: 1. Cardiomegaly with coronary artery disease and small bilateral pleural effusions. 2. Dependent consolidation is seen in the lower lobes which may reflect atelectasis. Pneumonia is difficult to exclude. 3. Hazy opacity in the left upper lobe may reflect developing infiltrate. 4. Unchanged pulmonary micronodules measuring up to 3.3 mm. New pulmonary nodule measuring 1.8 mm. As per Fleischner Society 2017 guidelines for follow-up and management of pulmonary nodules: For patients at low risk (minimal or absent history of smoking and of other known risk factors), no routine follow-up. For patient at high risk (history of smoking or of other known risk factors), recommend optional CT at 12 months. Laboratory Results WBC 9.8 10^3/uL (4.0-10.0) 09/18/22 09:03 RBC 3.77 10^6/uL (4.1-5.3) L 09/18/22 09:03 Hgb 11.4 g/dL (11.5-15.3) L 09/18/22 09:03 Hct 37.9 % (37.0-47.0) 09/18/22 09:03 MCV 100.5 fl (81-99) H 09/18/22 09:03 MCH 30.2 pg (28.0-34.0) 09/18/22 09:03 MCHC 30.1 g/dL (30.0-36.0) 09/18/22 09:03 RDW 14.1 % (12.1-15.1) 09/18/22 09:03 Plt Count 146 10^3/cmm (130-400) 09/18/22 09:03 MPV 9.8 fL (7.4-10.4) 09/18/22 09:03 Neut % (Auto) 58.3 % 09/18/22 09:03 Lymph % (Auto) 31.5 % 09/18/22 09:03 Bryan % (Auto) 7.8 % 09/18/22 09:03 Eos % (Auto) 1.4 % 09/18/22 09:03 Baso % (Auto) 0.6 % 09/18/22 09:03 Neut # (Auto) 5.71 10^3/uL (1.8-7.7) 09/18/22 09:03 Lymph # (Auto) 3.1 10^3/uL (0.8-4.8) 09/18/22 09:03 Bryan # (Auto) 0.8 10^3/uL (0.2-0.9) 09/18/22 09:03 Eos # (Auto) 0.1 10^3/uL (0.0-0.8) 09/18/22 09:03 Baso # (Auto) 0.1 10^3/uL (0.0-0.1) 09/18/22 09:03 Nucleated RBC % (auto) 0 % 09/18/22 09:03 Nucleated RBCs # 0.0 /100WBC 09/18/22 09:03 Sodium 142 mmol/L (136-145) 09/18/22 09:03 Potassium 4.2 mmol/L (3.5-5.1) 09/18/22 09:03 Chloride 99 mmol/L (98-107) 09/18/22 09:03 Carbon Dioxide 39 mmol/L (22-29) H 09/18/22 09:03 Anion Gap 8.2 (5-19) 09/18/22 09:03 BUN 11 mg/dL (8-23) 09/18/22 09:03 Creatinine 0.6 mg/dL (0.5-0.9) 09/18/22 09:03 GFR Calculation Not Reportable 09/18/22 09:03 Glucose 136 mg/dL (65-115) H 09/18/22 09:03 Calculated Osmolality 295 mOsm/kg (285-295) 09/18/22 09:03 Calcium 9.0 mg/dL (8.5-10.5) 09/18/22 09:03 Magnesium 2.4 mg/dL (1.7-2.3) H 09/18/22 09:03 Discharge Plan Discharge Patient Disposition: Home Clinical Impression: Pneumonia Condition: Stable Prescriptions: New azithromycin 250 mg tablet See Rx Instructions .ROUTE .COMPLEX Qty: 6 0RF Rx Instructions: For 250 mg dose pack: take 500 mg today (day 1), then 250 mg for 4 days (days 2-5) prednisone 20 mg tablet 40 mg PO DAILY 3 Days Qty: 6 0RF No Action isosorbide mononitrate 30 mg tablet extended release 24 hr 30 mg PO DAILY bumetanide 1 mg tablet 1 mg PO DAILY nitroglycerin 0.4 mg Tablet, Sublingual 0.4 mg SUBLINGUAL Q5M PRN (Reason: Chest Pain) rosuvastatin 10 mg tablet 10 mg PO DAILY@2100 fluticasone propion-salmeterol [Advair Diskus] 250-50 mcg/dose blister with device 1 inh inhalation BID@0900,2100 polyethylene glycol 3350 [Miralax] 17 gram powder in packet 17 g PO DAILY PRN (Reason: Constipation) albuterol sulfate 90 mcg/actuation Hfa Aerosol Inhaler 2 inh INHALATION Q6H PRN (Reason: Shortness Of Breath) acetaminophen [Tylenol] 325 mg Tablet 650 mg PO Q4H PRN (Reason: Pain) levothyroxine 50 mcg tablet 50 mcg PO QAM carbidopa-levodopa 10-100 mg tablet 1 tab PO TID potassium chloride [Klor-Con 10] 10 mEq tablet extended release 20 meq PO DAILY ferrous gluconate 324 mg (37.5 mg iron) tablet 324 mg PO BID sennosides-docusate sodium 8.6-50 mg tablet 1 tab PO BID warfarin 4 mg Tablet See Rx Instructions .ROUTE .COMPLEX Rx Instructions: 4 mg orally 6 times weekly except on Tuesdays bisacodyl [Dulcolax (bisacodyl)] 10 mg Suppository 10 mg PA DAILY PRN (Reason: Constipation) albuterol sulfate 2.5 mg /3 mL (0.083 %) Solution For Nebulization 2.5 mg INHALATION QID PRN (Reason: Shortness Of Breath) Zofran 4 mg Tablet 4 mg PO Q6H PRN (Reason: Nausea) warfarin 5 mg Tablet See Rx Instructions .ROUTE .COMPLEX Rx Instructions: 5 mg orally one time per week on Tuesdays citalopram 10 mg Tablet 10 mg PO DAILY magnesium hydroxide [Milk of Magnesia] 400 mg/5 mL Suspension 30 ml PO DAILY PRN (Reason: Constipation) Fleet Enema 19-7 gram/118 mL Enema 118 ml PA DAILY PRN (Reason: Constipation) omeprazole 40 mg Capsule,Delayed Release(Dr/Ec) 40 mg PO DAILY cholecalciferol (vitamin D3) [Vitamin D3] 50 mcg (2,000 unit) Capsule 125 mcg PO DAILY Artificial Tears (cmc) 1 % Drops 1 drp OPHTHALMIC (EYE) Q6H PRN (Reason: Dry Eyes) Discharge Orders: Discharge ED (Routine); Ordered 09/18/22 Ordered By: Emmanuel Rojas Referrals: Michael Hampton DO [Primary Care Provider] - Discharge Diet: Usual diet Discharge Activity: Increase activity as tolerated Patient Instructions: Opioid Safety, Pain Management, Pneumonia - Bacterial, Pneumonia - Viral Activity Restrictions/Additional Instructions: Please use inhaler every 4 hours for the next 24 hours then as needed. Follow-up with a primary care provider at the end of next week for recheck of your symptoms. Coding Level of Care Code ED Export Freight Clerk for Chg Fwd Exam Comprehensive
[2022-09-18 09:23] LABS: Basophils # 0.1 10^3/uL (0.0-0.1); Basophils % 0.6 %; Eosinophils # 0.1 10^3/uL (0.0-0.8); Eosinophils % 1.4 %; Hematocrit 37.9 % (37.0-47.0); Hemoglobin 11.4 g/dL (11.5-15.3); Lymphocytes # 3.1 10^3/uL (0.8-4.8); Lymphocytes % 31.5 %; Mean Corpuscular HGB Conc 30.1 g/dL (30.0-36.0); Mean Corpuscular Hemoglobin 30.2 pg (28.0-34.0); Mean Corpuscular Volume 100.5 fl (81-99); Mean Platelet Volume 9.8 fL (7.4-10.4); Monocytes # 0.8 10^3/uL (0.2-0.9); Monocytes % 7.8 %; Neutrophils # 5.71 10^3/uL (1.8-7.7); Neutrophils % 58.3 %; Nucleated Red Blood Cells % 0 %; Platelet Count 146 10^3/cmm (130-400); Red Blood Count 3.77 10^6/uL (4.1-5.3); Red Cell Distribution Width 14.1 % (12.1-15.1); White Blood Count 9.8 10^3/uL (4.0-10.0)
[2022-09-18 09:37] LABS: Anion Gap 8.2 (5-19); Blood Urea Nitrogen 11 mg/dL (8-23); Carbon Dioxide 39 mmol/L (22-29); Chloride 99 mmol/L (98-107); Glucose 136 mg/dL (65-115); Magnesium 2.4 mg/dL (1.7-2.3); Osmolality Calculated 295 mOsm/kg (285-295); Potassium 4.2 mmol/L (3.5-5.1); Sodium 142 mmol/L (136-145)
--- NOTE | 2022-09-18 11:05 | CTR_ITS ---
PROCEDURE INFORMATION: Exam: CT Chest Without Contrast; Diagnostic Exam date and time: 09/18/2022 11:31 AM Age: 82 years old Clinical indication: Shortness of breath. TECHNIQUE: Imaging protocol: Diagnostic computed tomography of the chest without contrast. Radiation optimization: All CT scans at this facility use at least one of these dose optimization techniques: automated exposure control; mA and/or kV adjustment per patient size (includes targeted exams where dose is matched to clinical indication); or iterative reconstruction. COMPARISON: CT chest wo con [id number] 06/26/2022 5:37 PM RADIATION DOSE METRICS: Total DLP (mGy-cm): 462.58 FINDINGS: Tubes, catheters and devices: Prosthetic mitral valve. Lungs: Dependent consolidation is seen in the lower lobes which may reflect atelectasis. Pneumonia is difficult to exclude. There are foci of subsegmental atelectasis bilaterally. Hazy opacity in the left upper lobe may reflect developing infiltrate. Calcified granuloma in the right upper lobe. Unchanged pulmonary micronodule in the left upper lobe measuring 2.4 mm (image 8). A subpleural pulmonary micronodule in the left lower lobe is similar to prior measuring 3.3 mm (image 9). New pulmonary micronodule in the left upper lobe measuring 1.8 mm (image 18). Pleural spaces: Small bilateral pleural effusions. No pneumothorax. Heart: The heart is enlarged. Coronary arterial calcifications are seen. No pericardial effusion. Lymph nodes: Calcified right hilar lymph node. There is a partially calcified subcarinal lymph node. Vasculature: No thoracic aortic aneurysm. Diaphragm: No hiatal hernia. Gallbladder and bile ducts: Status post cholecystectomy. Bones/joints: Median sternotomy wires are noted. Old left rib fractures. No acute fracture is identified. Soft tissues: No significant subcutaneous soft tissue swelling. CT/CT chest wo con [id number] IMPRESSION: 1. Cardiomegaly with coronary artery disease and small bilateral pleural effusions. 2. Dependent consolidation is seen in the lower lobes which may reflect atelectasis. Pneumonia is difficult to exclude. 3. Hazy opacity in the left upper lobe may reflect developing infiltrate. 4. Unchanged pulmonary micronodules measuring up to 3.3 mm. New pulmonary nodule measuring 1.8 mm. As per Fleischner Society 2017 guidelines for follow-up and management of pulmonary nodules: For patients at low risk (minimal or absent history of smoking and of other known risk factors), no routine follow-up. For patient at high risk (history of smoking or of other known risk factors), recommend optional CT at 12 months.
[2022-09-18] MEDS: lactated ringers 500 ML 999 ML IV (11:15)
[2022-09-18] MEDS: ipratropium-albuterol 3 mL Neb INHALATION (11:20)
== END 2022-09-18 14:05 | disposition home or self-care (01) ==
PROVIDERS: Emergency Provider Student in an Organized Health Care Education/Training Program; PCP Family Medicine
DX: J44.0 Chronic obstructive pulmonary disease with (acute) lower respiratory infection (principal); J18.9 Pneumonia, unspecified organism; Z79.01 Long term (current) use of anticoagulants; I25.10 Atherosclerotic heart disease of native coronary artery without angina pectoris; I11.0 Hypertensive heart disease with heart failure; I50.9 Heart failure, unspecified; G20 Parkinson's disease
CPT/HCPCS: 71045; 71250; 80048; 83735; 85025; 94640; 96361; 96374; 99285; J2930; J7120

== ENCOUNTER → 2022-11-18 09:57 | Outpatient (BNVA) | payer MEDICARE, MEDICAID, SELFPAY | PROVIDERS: PCP Family Medicine; Visit Provider Internal Medicine | DX: I11.0 Hypertensive heart disease with heart failure (principal); I25.10 Atherosclerotic heart disease of native coronary artery without angina pectoris; J42 Unspecified chronic bronchitis; I48.91 Unspecified atrial fibrillation; I50.33 Acute on chronic diastolic (congestive) heart failure | CPT/HCPCS: 36415; 80048; 83880; 99214 ==

== ENCOUNTER 2022-12-15 13:39 | Outpatient (CLI) | payer MEDICARE, MEDICAID, SELFPAY ==
--- NOTE | 2022-12-15 13:30 | USCV_ITS ---
Jose Iris Age: 82 Gender: F : 1940 Exam Date: 12/15/2022 14:38 Ordering Phys: Cas Galvez M.D ([email or web address]) Technologist: UNIQUE [place]am Location[place] [facility] [place] [facility] [place]ication: SOB BP: 144 / 70 HR: 84 Rhythm: Sinus Technical Quality: Adequate MEASUREMENTS (Male / Female) Normal Values 2D ECHO LV Diastolic Diameter PLAX 4.9 cm 4.2 - 5.9 / 3.9 - 5.3 cm LV Systolic Diameter PLAX 3.2 cm IVS Diastolic Thickness 0.7 cm 0.6 - 1.0 / 0.6 - 0.9 cm IVS Systolic Thickness 1.1 cm LVPW Diastolic Thickness 1.2 cm 0.6 - 1.0 / 0.6 - 0.9 cm LVPW Systolic Thickness 1.8 cm LVOT Diameter 2.0 cm LV Ejection Fraction 2D Teich 63.6 % LV Ejection Fraction MOD 2C 61.9 % LV Ejection Fraction 2C AL 62.2 % LA Diameter 4.1 cm LA Width 4.7 cm LA Height 6.6 cm RA Width 4.1 cm RA Height 5.1 cm Aorta at Sinotubular Diameter 2.1 cm IVC Diameter 1.8 cm M-MODE Aortic Annulus Diameter 2.8 cm LA Ao Ratio MM 1.5 DOPPLER AV Peak Velocity 219.2 cm/s LVOT Peak Velocity 122.0 cm/s AV Area Cont Eq vti 1.9 cm squared AV Area Cont Eq pk 1.8 cm squared MV Peak Velocity 163.0 cm/s MV Area PHT 4.2 cm squared Mitral E to A Ratio 4.8 MV E' Velocity 88.0 cm/s Mitral E to MV E' Ratio 13.8 Mitral E to LV E' Lateral Ratio 12.2 Mitral E to LV E' Septal Ratio 16.2 TR Peak Velocity 344.0 cm/s TR Peak Gradient 47.3 mmHg TR Mean Velocity 278.6 cm/s TR Mean Gradient 36.7 mmHg TR Velocity Time Integral 78.5 cm Right Atrial Pressure 3.0 mmHg Pulmonary Artery Systolic Pressu 50.3 mmHg PV Peak Velocity 105.7 cm/s RV Acceleration Time 0.1 s RV Ejection Time 0.2 s RV AcT/ET 0.2 FINDINGS Left Ventricle Left ventricle is normal size. LV systolic function is normal with EF 55 to 60%. No regional wall motion abnormalities are seen. Right Ventricle Normal in size and function Right Atrium Normal in size Left Atrium Dilated Mitral Valve Mechanical mitral valve is not well visualized. Mild mitral regurgitation. Mean gradient across mitral valve is mildly elevated at 4mmHg. Aortic Valve Aortic valve is thickened. Mild aortic stenosis with mean gradient across aortic valve of 13mmHg and MARIO of 1.69cm2. Mild to moderate aortic regurgitation Tricuspid Valve Mild tricuspid regurgitation. RVSP is 50-55mmHg. This is consistent with moderate pulmonary hypertension. Pulmonic Valve Not well visualized Pericardium Normal Aorta Normal in size IVC Appears to be normal CONCLUSIONS Technically limited quality echocardiogram. LV systolic function is normal with EF 55 to 60% Left atrial dilation Mechanical mitral valve is not well-visualized. Mild mitral regurgitation. Mild mitral stenosis Mild aortic stenosis with mean gradient of 13 mmHg and aortic valve area 1.69 cm. Mild to moderate aortic regurgitation Mild tricuspid regurgitation. Moderate pulmonary hypertension Compared to prior echocardiogram from 12/04/2021, no significant changes are seen. Cas Galvez MD (Electronically Signed) Final Date: 22 December 2022 07:30 S
== END 2022-12-15 13:40 | disposition home or self-care (01) ==
PROVIDERS: PCP Family Medicine; Visit Provider Internal Medicine
DX: R06.02 Shortness of breath (principal); I08.3 Combined rheumatic disorders of mitral, aortic and tricuspid valves
CPT/HCPCS: 93306

== ENCOUNTER 2022-12-22 02:10 | Inpatient (IN) | payer MEDICARE, MEDICAID, SELFPAY ==
[2022-12-22] VITALS (32 sets, daily range): BP systolic 96–161; BP diastolic 6–82; PULSE 65–103; RESP 15–35; TEMP 36.2–37.6; O2SAT 93–100; BMI 25.3
--- NOTE | 2022-12-22 02:15 | XRR_ITS ---
PROCEDURE INFORMATION: Exam: XR Chest Exam date and time: 12/22/2022 2:30 AM Age: 82 years old Clinical indication: Dyspnea and shortness of breath; Prior surgery; Surgery type: Mitral valve replacement; Patient HX: Arrival via EMS for resp distress. History of copd and chf. ; Additional info: SOB TECHNIQUE: Imaging protocol: Radiologic exam of the chest. Views: 1 view. COMPARISON: CT chest [facility] [id number] 09/18/2022 11:31 AM FINDINGS: Lungs: Coarse reticular is tissue lung changes bilaterally. No focal pulmonary consolidation. Pleural spaces: Unremarkable. No pleural effusion. No pneumothorax. Heart/Mediastinum: Cardiomegaly. Mitral valve replacement. Bones/joints: Chronic posttraumatic rib changes on the left. XR/XR chest 1V portable [id number] IMPRESSION: Prominent interstitial lung markings bilaterally may represent interstitial edema.
--- NOTE | 2022-12-22 02:18 | W.ED.SOB ---
HPI - SOB/Dyspnea General: Chief Complaint: Shortness of Breath/Dyspnea Stated Complaint: Resp. Distress Time Seen by Provider: 12/22/22 02:11 Source: patient and EMS Mode of arrival: EMS Limitations: no limitations History of Present Illness: HPI Narrative: 82-year-old female is here from [facility] for cough fever shortness of breath she states she had a cough for the last 3 days she had a fever today 101 she states she had increasing cough and dyspnea. She has had pneumonia the past she has COPD CHF denies any vomiting diarrhea denies abdominal pain. Associated symptoms: Reports fever(s); Deny abdominal pain, chest pain, nausea or vomiting Review of Systems Const: Reports: fever(s) and chills Eyes: Denies: blurry vision or eye discomfort ENMT: Denies: throat pain or dental pain Card: Denies: chest pain Resp: Reports: dyspnea and non-productive cough GI: Denies: abdominal pain, nausea, vomiting or diarrhea : Denies: dysuria Musc: Denies: neck pain or back pain Skin/Breast: Denies: rash Neuro: Denies: headache(s) Psych: Denies: depression Jesus Alberto/Lymph: Denies: easy bruising All/Imm: Denies: urticaria PFSH ED PFSH: Medical History Acute and chronic respiratory failure with hypercapnia Acute exacerbation of chronic obstructive airways disease Atrial fibrillation CAD (coronary artery disease) CHF (congestive heart failure) Chronic anticoagulation Due to mechanical mitral valve; coumadin Congestive heart failure Congestive heart failure COPD (chronic obstructive pulmonary disease) Depression GERD (gastroesophageal reflux disease) PPI HTN (hypertension) Hypothyroidism -continue levothyroxine Iron deficiency anemia Has required transfusion in past, last egd and colonoscopy ~2017 with diverticulosis and internal hemorrhoids, No pertinent past medical history neghx: dm,dvt/pe PCP: Radha Sellers [employer] FILLER SONYA (obstructive sleep apnea) Pancytopenia Parkinson disease Follows up with Dr. Rainey in [place] Pulmonary hypertension Restrictive lung disease Schatzki's ring Subtherapeutic international normalized ratio (INR) Transient neurological symptoms Surgical History H/O mitral valve replacement with mechanical valve History of bilateral tubal ligation History of cholecystectomy History of total knee arthroplasty Left Mitral valve replaced Mechanical, on coumadin Status post open reduction and internal fixation (ORIF) of fracture Family History Mother CAD (coronary artery disease) Diabetes Daughter Ovarian cancer Father Stroke Other Hypertension Denies family history of Colon cancer Heart disease Hypercholesteremia Breast cancer Uterine cancer Thyroid disease Physical Exam Const: COMMON NORMALS: patient oriented x3 GENERAL APPEARANCE: in distress and ill appearing HENMT: COMMON NORMALS: normocephalic and atraumatic HEAD & SCALP: normocephalic and atraumatic Eye: COMMON NORMALS: Equal, round and reactive pupils present and EOMs intact bilaterally PUPIL: Yes Equal, round and reactive pupils present Neck/C-Spine: COMMON NORMALS: full ROM and supple Chest: COMMONS NORMALS: normal inspection of the chest and normal palpation of entire chest wall Resp: COMMON NORMALS: No retractions and No use of accessory muscles AUSCULTATION: rales Cardio: COMMON NORMALS: regular rate, regular rhythm and No murmurs present (Cardio) RATE: regular rate RHYTHM: regular rhythm GI: COMMON NORMALS: Normal to inspection, nondistended, normoactive bowel sounds present, Soft to palpation, non-tender and no masses PALPATION: Yes Soft to palpation Extremity: COMMON NORMALS: normal to inspection and full ROM Neuro: COMMON NORMALS: patient oriented x3, moves all extremities and no focal motor deficits Psych: COMMON NORMALS: mental status grossly normal, Normal thought process present and cooperative THOUGHT PROCESS: Normal thought process present Skin: COMMON NORMALS: no rashes or lesions noted and no wounds GENERAL SKIN EXAM: no rashes or lesions noted Course Vital Signs: Vital signs: Vital Signs Temperature 99.1 F 12/22/22 03:25 Pulse Rate 94 12/22/22 04:30 Respiratory Rate 30 H 12/22/22 04:30 Blood Pressure 161/71 12/22/22 04:30 Pulse Oximetry 97 12/22/22 04:30 Oxygen Delivery Me thod 12/22/22 04:30 Oxygen Flow Rate 4 12/22/22 03:25 MDM - SOB/Dyspnea Medical Decision Making Patient presents here with cough fever possible pneumonia versus edema she also has an elevated INR spoke to hospitalist will admit. Lab Data 12/22/22 02:30 12/22/22 02:30 Labs/Radiology: Radiology Impressions Chest X-Ray 12/22/22 02:15 IMPRESSION: Prominent interstitial lung markings bilaterally may represent interstitial edema. Laboratory Results WBC 8.2 10^3/uL (4.0-10.0) 12/22/22 02:30 RBC 2.71 10^6/uL (4.1-5.3) L 12/22/22 02:30 Hgb 7.4 g/dL (11.5-15.3) L 12/22/22 02:30 Hct 25.0 % (37.0-47.0) L 12/22/22 02:30 MCV 92.3 fl (81-99) 12/22/22 02:30 MCH 27.3 pg (28.0-34.0) L 12/22/22 02:30 MCHC 29.6 g/dL (30.0-36.0) L 12/22/22 02:30 RDW 15.3 % (12.1-15.1) H 12/22/22 02:30 Plt Count 237 10^3/cmm (130-400) 12/22/22 02:30 MPV 9.4 fL (7.4-10.4) 12/22/22 02:30 Neut % (Auto) 74.8 % 12/22/22 02:30 Lymph % (Auto) 12.9 % 12/22/22 02:30 [place] % (Auto) 9.3 % 12/22/22 02:30 Eos % (Auto) 1.1 % 12/22/22 02:30 Baso % (Auto) 0.4 % 12/22/22 02:30 Neut # (Auto) 6.11 10^3/uL (1.8-7.7) 12/22/22 02:30 Lymph # (Auto) 1.1 10^3/uL (0.8-4.8) 12/22/22 02:30 [place] # (Auto) 0.8 10^3/uL (0.2-0.9) 12/22/22 02:30 Eos # (Auto) 0.1 10^3/uL (0.0-0.8) 12/22/22 02:30 Baso # (Auto) 0.0 10^3/uL (0.0-0.1) 12/22/22 02:30 Nucleated RBC % (auto) 0 % 12/22/22 02:30 Nucleated RBCs # 0.0 /100WBC 12/22/22 02:30 PT 76.30 SECONDS (12.1-14.9) H 12/22/22 02:30 INR 8.87 (0.8-1.2) H* 12/22/22 02:30 Specimen Type Arterial 12/22/22 02:34 Sample Site Radial, right 12/22/22 02:34 ABG pH 7.45 (7.35-7.45) 12/22/22 02:34 ABG pCO2 65.5 mmHg (35-45) H* 12/22/22 02:34 ABG pO2 93.2 mmHg (80.0-100.0) 12/22/22 02:34 ABG HCO3 45.2 mmol/L (22-26) H 12/22/22 02:34 ABG Base Excess 19.0 mmol/L (-2.0-2.0) H 12/22/22 02:34 César Test Pos 12/22/22 02:34 Hematocrit 23.0 % (37-47) L 12/22/22 02:34 Hgb O2 Saturation 94.1 % (95-100) L 12/22/22 02:34 Carboxyhemoglobin 2.6 %THgb (0.4-20.1) 12/22/22 02:34 Methemoglobin 1.2 % (0.4-1.5) 12/22/22 02:34 Total Hemoglobin 7.5 g/dL (12-16) L 12/22/22 02:34 O2 Delivery Device Nc 12/22/22 02:34 O2 Liters/Min 4.0 % 12/22/22 02:34 FiO2 36.0 % 12/22/22 02:34 Aircraft Powerplant Repairer ID Alewe 12/22/22 02:34 Sodium 144 mmol/L (136-145) 12/22/22 02:30 Potassium 3.8 mmol/L (3.5-5.1) 12/22/22 02:30 Chloride 95 mmol/L (98-107) L 12/22/22 02:30 Carbon Dioxide 40 mmol/L (22-29) H 12/22/22 02:30 Anion Gap 12.8 (5-19) 12/22/22 02:30 BUN 18 mg/dL (8-23) 12/22/22 02:30 Creatinine 0.8 mg/dL (0.5-0.9) 12/22/22 02:30 GFR Calculation Not Reportable 12/22/22 02:30 Glucose 128 mg/dL (65-115) H 12/22/22 02:30 Calculated Osmolality 302 mOsm/kg (285-295) H 12/22/22 02:30 Lactic Acid 1.1 mmol/L (0.5-2.2) 12/22/22 02:30 Calcium 8.7 mg/dL (8.5-10.5) 12/22/22 02:30 Total Bilirubin 1.9 mg/dL (0.15-1.2) H 12/22/22 02:30 AST 18 U/L (0-32) 12/22/22 02:30 ALT 8 U/L (0-33) 12/22/22 02:30 Alkaline Phosphatase 108 U/L (35-105) H 12/22/22 02:30 NT-Pro-B Natriuret Pep 1530 pg/mL (0-450) H 12/22/22 02:30 Total Protein 6.6 g/dL (6.6-8.7) 12/22/22 02:30 Albumin 3.2 g/dL (3.5-5.2) L 12/22/22 02:30 Globulin 3.4 g/dL (1.3-4.6) 12/22/22 02:30 Influenza Type A Ag negative (Negative) 12/22/22 02:30 Influenza Type B Ag negative (Negative) 12/22/22 02:30 SARS-CoV-2 Ag (Rapid) negative (Negative) 12/22/22 02:30 Discharge Plan Discharge Patient Disposition: Admitted As Inpatient Admit Provider: Francisco Marino Clinical Impression: Community acquired pneumonia, Elevated INR Condition: Stable Coding Level of Care Code ED Pants Cutter for Norma Yeh
--- NOTE | 2022-12-22 02:19 | ECG_ITS ---
[facility] Test Date: 2022-12-22 Pat Name: Iris Garcia Department: Room: 253 Gender: Female Color Receiver: : 1940 Requested By: James Adrian Order Number: [id number] Krupa MD: Santos Adorno M.D. Measurements Intervals [place] Rate: 104 P: 0 SC: 0 QRS: 51 QRSD: 108 T: -60 QT: 304 QTc: 401 Interpretive Statements ATRIAL FIBRILLATION WITH RAPID VENTRICULAR RESPONSE NONSPECIFIC ST & T-WAVE ABNORMALITY Compared to ECG 09/04/2022 00:59:13 Supraventricular rhythm no longer present Intraventricular conduction delay no longer present T-wave abnormality still present Electronically Signed On 12-22-2022 22:19:19 CREATIVE MANAGER by Santos Adorno M.D. [email or web address]
[2022-12-22] MEDS: acetaminophen 325 mg Tablet 650 MG PO ×2 (02:20→15:35)
[2022-12-22 02:41] LABS: Basophils % 0.4 %; Eosinophils # 0.1 10^3/uL (0.0-0.8); Eosinophils % 1.1 %; Hemoglobin 7.4 g/dL (11.5-15.3); Lymphocytes # 1.1 10^3/uL (0.8-4.8); Lymphocytes % 12.9 %; Mean Corpuscular HGB Conc 29.6 g/dL (30.0-36.0); Mean Corpuscular Hemoglobin 27.3 pg (28.0-34.0); Mean Corpuscular Volume 92.3 fl (81-99); Mean Platelet Volume 9.4 fL (7.4-10.4); Monocytes # 0.8 10^3/uL (0.2-0.9); Monocytes % 9.3 %; Neutrophils # 6.11 10^3/uL (1.8-7.7); Neutrophils % 74.8 %; Nucleated Red Blood Cells % 0 %; Platelet Count 237 10^3/cmm (130-400); Red Blood Count 2.71 10^6/uL (4.1-5.3); Red Cell Distribution Width 15.3 % (12.1-15.1); White Blood Count 8.2 10^3/uL (4.0-10.0)
[2022-12-22 02:45] LABS: ABG PCO2 65.5 mmHg (35-45); ABG PH Result 7.45 (7.35-7.45); Blood Gas Allen Test Pos; Blood Gas Sample Site Radial, right; Blood Gas Sample Type Arterial; Carboxyhemoglobin 2.6 %THgb (0.4-20.1); HCO3 ABG 45.2 mmol/L (22-26); HGB O2 Sat 94.1 % (95-100); Methemoglobin 1.2 % (0.4-1.5); Oxygen Device NC; PO2 ABG 93.2 mmHg (80.0-100.0); Total Hemoglobin 7.5 g/dL (12-16)
[2022-12-22 02:58] LABS: Influenza A by IFA negative (Negative); Influenza B by IFA negative (Negative); SARS Covid-2 Antigen negative (Negative)
[2022-12-22] MEDS: azithromycin 500 MG in sodium chloride 0.9% 250 ML 250 MG IV (03:00)
[2022-12-22] MEDS: cefTRIAXone 1,000 MG in sodium chloride 0.9% (plus) 50 ML 100 MG IV (03:00)
[2022-12-22 03:04] LABS: Lactic Sepsis W/Reflex 1.1 mmol/L (0.5-2.2)
[2022-12-22 03:14] LABS: Alanine Aminotransferase 8 U/L (0-33); Albumin Level 3.2 g/dL (3.5-5.2); Alkaline Phosphatase 108 U/L (35-105); Anion Gap 12.8 (5-19); Aspartate Amino Transferase 18 U/L (0-32); Blood Urea Nitrogen 18 mg/dL (8-23); Calcium 8.7 mg/dL (8.5-10.5); Carbon Dioxide 40 mmol/L (22-29); Chloride 95 mmol/L (98-107); Globulin 3.4 g/dL (1.3-4.6); Glucose 128 mg/dL (65-115); NT Pro B Type Natriuretic Pept 1530 pg/mL (0-450); Osmolality Calculated 302 mOsm/kg (285-295); Potassium 3.8 mmol/L (3.5-5.1); Sodium 144 mmol/L (136-145); Total Bilirubin 1.9 mg/dL (0.15-1.2); Total Protein 6.6 g/dL (6.6-8.7)
[2022-12-22 03:39] LABS: INR 8.87 (0.8-1.2)
[2022-12-22] MEDS: levothyroxine 50 mcg Tablet PO (06:03)
[2022-12-22] MEDS: FUROsemide 10 mg/mL SDV 4mL 40 MG IVP (06:12)
[2022-12-22] MEDS: phytonadione (ADULT) 10 mg/mL Ampule 1 mL 5 MG PO (06:12)
[2022-12-22 06:29] LABS: Iron 31 ug/dL (37-145); Percent Saturation 19.3 % (20-50); Total Iron Binding Capacity 160 mcg/dl; Unsaturated Iron Binding 129 ug/dL (112-347)
--- NOTE | 2022-12-22 06:40 | CT_ITS ---
WS: [id number] CT CHEST, ABDOMEN, AND PELVIS TECHNIQUE: Noncontrast CT of the chest, abdomen, and pelvis with coronal and sagittal reformatted symone ges. CLINICAL INFORMATION: pna vs chf, anemia, hematoma in left hip post fall, ?hip# COMPARISON: CT 09/18/2022 and 04/16/2020 DLP: 862.[address] scans at [facility] use at least one of these dose optimization techniques: automated e xposure control; mA and/or kV adjustment per patient size (includes targeted exams where dose is matc hed to clinical indication); or iterative reconstruction. Cardiomegaly. Prior sternotomy. Mitral valve replacement. Aortic calcification. Coronary calcificatio n. Chronic emphysematous changes. Subsegmental atelectasis in the lung bases. Small LEFT and trace RI GHT pleural fluid. Patchy hazy opacities about the RIGHT hilum and inferior segment RIGHT upper lobe suspicious for pneumonitis. LEFT upper lobe is better aerated. Compressive atelectasis in the lung ba ses. No axillary lymphadenopathy. Enlarged LEFT atrium. No mediastinal or hilar lymphadenopathy. Moderate thoracic kyphosis with hypertrophic changes. Large intramuscular hematoma involving the LEFT gluteus medius with mixed attenuation blood products. Hematoma measures 9.5 x 5.4 x 12.9 CM. Associated subcu taneous soft tissue edema. Visualized LEFT femoral neck appears intact. Femoral shaft does not includ ed on this examination. LEFT inferior and superior pubic rami appear intact. Noncontrast liver is normal. Cholecystectomy clips. Normal noncontrast spleen. Small esophageal hiata l hernia. Glands are normal. No hydronephrosis in either kidney. Increased attenuation RIGHT renal le surjit likely hemorrhagic or proteinaceous cyst measuring 9 mm. Fatty atrophy of the pancreas. Ureters are decompressed. Pelvic phleboliths. Calcified uterine fibroid. Sigmoid diverticulosis. No evidence of acute diverticulitis. No high-grade small or large bowel obstruction. RIGHT inguinal hernia with herniated loops of nonobstructed bowel. Lumbar scoliosis. CT/[place] [id number] IMPRESSION: 1. Patchy infiltrates RIGHT upper lobe about the RIGHT hilum suspicious for de veloping pneumonitis. 2. Small LEFT and tiny RIGHT pleural effusions with compressive atelectasis an d subsegmental atelectasis in the lung bases. 3. Cardiomegaly.Prominent enlargement of the LEFT atrium. 4. Large LEFT intramuscular gluteus medius mixed attenuation hematoma describe d above. No visualized LEFT hip fractures. LEFT femur not included on this stud y. 5. Prior cholecystectomy. 6. Sigmoid diverticulosis. No evidence of acute diverticulitis. 7. RIGHT inguinal hernia with herniated nonobstructed bowel.
[2022-12-22 06:43] LABS: Folate Level 6.8 ng/mL (4.8-37.3)
--- NOTE | 2022-12-22 06:43 | PM.HP ---
Providers/Chief Complaint Admitting Physician: Francisco Marino MD Chief Complaint: Resp. Distress History of Present Illness History taken to chart review and communication with the group home. Iris Garcia is a 82 year old female with past medical history of chronic hypoxic and hypercapnic respiratory failure, restrictive lung disease, atrial fibrillation on chronic anticoagulation with Coumadin, congestive heart failure, mechanical mitral valve, hypertension, hypothyroidism who is a group home resident was brought into the ER today from the group home because of increasing somnolence over the last 2 days along with cough and expectoration and subjective fevers of fever. As per the nurse patient has been on her baseline oxygen supplementation till couple of days ago. Blood work in the ER showed a white count of 8.2, hemoglobin of 7.4, INR of 8.87, ABG showing a PCO2 of 65.5 with a pH of 7.45, blood chemistry showing sodium of 144, chloride of 95, bicarb of 40, creatinine of 0.8 with bilirubin of 1.9 and a proBNP of 1500 Review of Systems General: Reports: ROS unobtainable due to mental status Medications/Allergies Home Medications Medication Instructions Recorded Confirmed Last Taken Type ferrous gluconate 324 mg (37.5 mg 324 mg PO BID 11/10/20 12/22/22 12/21/22 History iron) tablet potassium chloride 10 mEq 20 meq PO DAILY 11/10/20 12/22/22 12/21/22 History tablet,extended release (Klor-Con) sennosides 8.6 mg-docusate sodium 1 tab PO BID 11/10/20 12/22/22 12/21/22 History 50 mg tablet fluticasone 250 mcg-salmeterol 50 1 inh inhalation BID@0900,209902/12/21 12/22/22 12/21/22 History mcg/dose blistr powdr for inhalation (Advair Diskus) nitroglycerin 0.4 mg sublingual 0.4 mg sublingual Q5M PRN Chest 02/12/21 11/18/22 03/16/22 History tablet Pain rosuvastatin 10 mg tablet 10 mg PO DAILY@209902/12/21 11/18/22 09/17/22 History albuterol sulfate 90 mcg/actuation 2 inh inhalation Q6H PRN Shortness 02/26/21 11/18/22 03/16/22 History aerosol inhaler Of Breath polyethylene glycol 3350 17 gram 17 g PO DAILY PRN Constipation 04/27/21 12/22/22 12/21/22 History oral powder packet (Miralax) acetaminophen 325 mg tablet 650 mg PO Q4H PRN Pain 08/09/21 11/18/22 03/16/22 History (Tylenol) levothyroxine 50 mcg tablet 50 mcg PO QAM 08/09/21 12/22/22 12/21/22 06:00 History carbidopa 10 mg-levodopa 100 mg 1 tab PO TID 11/08/21 12/22/22 12/21/22 22:00 History tablet citalopram 10 mg tablet 10 mg PO DAILY 03/12/22 12/22/22 12/21/22 History magnesium hydroxide 400 mg/5 mL 30 ml PO DAILY PRN Constipation 03/12/22 11/18/22 03/16/22 History oral suspension (Milk of Magnesia) sodium phosphates 19 gram-7 118 ml IA DAILY PRN Constipation 03/12/22 11/18/22 03/16/22 History gram/118 mL enema (Fleet Enema) carboxymethylcellulose sodium 1 % 1 drp ophthalmic (eye) Q6H PRN Dry 06/26/22 11/18/22 Unknown History eye drops (Artificial Tears Eyes (carboxymethylcellulose)) cholecalciferol (vitamin D3) 50 125 mcg PO DAILY 06/26/22 12/22/22 12/21/22 History mcg (2,000 unit) capsule (Vitamin D3) omeprazole 40 mg capsule,delayed 40 mg PO DAILY 06/26/22 12/22/22 12/21/22 History release isosorbide mononitrate 30 mg 30 mg PO DAILY 08/12/22 12/22/22 12/21/22 History tablet,extended release 24 hr bisacodyl 10 mg rectal suppository 10 mg IA DAILY PRN Constipation 09/04/22 11/18/22 Unknown History (Dulcolax (bisacodyl)) warfarin 4 mg tablet See Rx Instructions .Route .COMPLEX 09/04/22 11/18/22 09/17/22 History albuterol sulfate 2.5 mg/3 mL 2.5 mg inhalation QID PRN 09/18/22 12/22/22 12/21/22 History (0.083 %) solution for nebulization Shortness Of Breath ondansetron HCl 4 mg tablet 4 mg PO Q6H PRN Nausea 09/18/22 09/28/22 Unknown History warfarin 5 mg tablet See Rx Instructions .Route .COMPLEX 09/18/22 11/18/22 09/13/22 History bumetanide 1 mg tablet 1 mg PO AC 11/18/22 12/22/22 12/21/22 14:00 History Allergies Allergy/AdvReac Type Severity Reaction Status Date / Time penicillin G Allergy UNK Verified 12/22/22 03:09 PFSH Acute PFSH: Medical History (Updated 12/22/22 @ 06:49 by Francisco Marino MD) Acute and chronic respiratory failure with hypercapnia Acute exacerbation of chronic obstructive airways disease Atrial fibrillation CAD (coronary artery disease) CHF (congestive heart failure) Chronic anticoagulation Due to mechanical mitral valve; coumadin Congestive heart failure COPD (chronic obstructive pulmonary disease) Depression GERD (gastroesophageal reflux disease) PPI HTN (hypertension) Hypothyroidism -continue levothyroxine Iron deficiency anemia Has required transfusion in past, last egd and colonoscopy ~2016 with diverticulosis and internal hemorrhoids, No pertinent past medical history neghx: dm,dvt/pe PCP: Radha Sellers [employer] SONYA (obstructive sleep apnea) Pancytopenia Parkinson disease Follows up with Dr. Rainey in [place] Pulmonary hypertension Restrictive lung disease Schatzki's ring Subtherapeutic international normalized ratio (INR) Transient neurological symptoms Surgical History (Updated 12/22/22 @ 06:49 by Francisco Marino MD) H/O mitral valve replacement with mechanical valve History of bilateral tubal ligation History of cholecystectomy History of total knee arthroplasty Left Mitral valve replaced Mechanical, on coumadin Status post open reduction and internal fixation (ORIF) of fracture Family History Mother CAD (coronary artery disease) Diabetes Daughter Ovarian cancer Father Stroke Other Hypertension Denies family history of Colon cancer Heart disease Hypercholesteremia Breast cancer Uterine cancer Thyroid disease Vitals/I&O/Wt Last Vital Signs Temp 97.8 F 12/22/22 05:40 Pulse 102 H 12/22/22 06:00 Resp 21 H 12/22/22 05:40 BP 143/82 12/22/22 05:40 Pulse Ox 93 12/22/22 06:30 O2 Del Method 12/22/22 06:30 O2 Flow Rate 4 12/22/22 06:30 12/21/22 12/21/22 12/22/22 14:59 22:59 06:59 Intake Total 300 / 300 Balance 300 / 300 Weight last 48 hrs Weight 65.771 kg Weight 64.864 kg Physical Exam Narrative: General: No acute distress, somnolent, arousable to physical stimuli, AO x1 on waking up, chronically sick appearing HEENT: PERRLA, pupils bilaterally equal and reactive Chest: Bilateral bronchial breath sounds all over the lung. Occasional rhonchi CVS: S1-S2 irregularly irregular, mitral click present, no tachycardia, no gallops, no rubs Abdomen: Soft, nontender, no organomegaly, bowel sounds present Neuro: No focal deficits, no facial deformity, moving all limbs Data 12/22/22 02:30 12/22/22 02:30 Micro: Microbiology 12/22/22 02:46 Blood Culture - Preliminary Blood SPECIMEN COLLECTED 12/22/22 02:55 Blood Culture - Preliminary Blood SPECIMEN COLLECTED A&P Assessment and plan (1) Acute encephalopathy: Most likely multifactorial etiology. Most likely in setting of infection. Pneumonia versus UTI. Persistent stable hypercapnia. No acidosis on ABG. Given supratherapeutic INR cannot rule out hemorrhagic CVA. Check CT head without contrast. Check urinalysis Rectal antigen (2) Acute and chronic respiratory failure with hypercapnia: With history of COPD. CO2 and pH seems to be at baseline. Oxygen supplementation keeping saturation over 88%. BiPAP nightly and as needed. Ipratropium and Xopenex every 6 hour, budesonide twice daily. (3) Community acquired pneumonia: Check blood culture, MRSA swab, sputum culture, urine Legionella, bacterial antigen. CT chest without contrast for further evaluation of possible pneumonia. For now start patient on IV ceftriaxone and oral azithromycin. (4) CHF (congestive heart failure): Last echocardiogram from 2021 showed EF 55% with PASP of 41 and severely dilated LA. Repeat echocardiogram. IV Lasix 40 mg daily. Patient already going into contraction alkalosis. We will start patient on Diamox 250 mg for at least next 3 days. Strict input of charting, daily weights. Lam catheterization. Fluid restriction up to 1500 cc. Qualifiers: Heart failure type: diastolic Heart failure chronicity: acute on chronic Qualified Code(s): I50.33 - Acute on chronic diastolic (congestive) heart failure (5) Elevated INR: On chronic Coumadin for mechanical mitral valve and atrial fibrillation. Target INR 2.5-3. Currently more than 8 with signs of possible new left hematoma and anemia. Will reverse with oral vitamin K at 5 mg. Repeat hemoglobin and INR in afternoon. (6) Hip hematoma, left: (7) Acute on chronic anemia: Hemoglobin 7.4. New left hip hematoma. Check CT abdomen pelvis to further visualize and characterize hematoma to rule out retroperitoneal bleed. Not sure of a fall at group home. We will also rule out hip fracture. Check iron panel, vitamin B12, folate level. Target hemoglobin more than 8. Transfuse 1 unit of PRBC. Start on IV iron supplementation. (8) Chronic anticoagulation: (9) H/O mitral valve replacement with mechanical valve: (10) COPD (chronic obstructive pulmonary disease): Qualifiers: COPD type: chronic bronchitis Chronic bronchitis type: unspecified Qualified Code(s): J42 - Unspecified chronic bronchitis (11) Afib: Plan Analgesia: Tylenol as needed. Will avoid narcotics. Glycemic control: Not needed. Check A1c. Nutrition: Clear liquid diet as able. Patient is at a risk of aspiration given her mentation CODE STATUS: DNR/DNI. PUD prophylaxis: Protonix IV twice daily. DVT prophylaxis: SCDs for DVT, no medical prophylaxis given supratherapeutic INR, left hip hematoma and anemia Discharge planning: Back to group home once medically stable. Admit to [facility] with telemetry. This documentation was created by [employer] certified court interpreter software. Every effort was made to ensure accuracy of certified court interpreter. Any obvious errors or omissions should be clarified with the author of the document. Attestations Medical Necessity Statement*: Admission for more than 2 midnights for management of acute encephalopathy in setting infection, supratherapeutic INR with acute on chronic anemia and left hip hematoma Coding Level of Care Code 05259 Moderate MDM includes number and complexity of problems actively addressed during encounter, amount and/or complexity of data reviewed/ordered [ previous or external records, resulted lab(s)/test(s), ordered lab(s)/test(s), independent historian (Gathering history student nurse at group home), independent test interpretation and other healthcare professional discussion] and described risk of complication, morbidity or mortality of management as documented and Moderate Time for a total of 65 minutes, includes reviewing past or interval history, examining/interviewing patient, placing orders, counseling patient/family/other support, updating patient/family/other support, discussing plan of care with staff, communicating with other healthcare providers, documenting encounter and coordinating care Diagnoses Acute encephalopathy G93.40 Acute and chronic respiratory failure with hypercapnia J96.22 Community acquired pneumonia J18.9 CHF (congestive heart failure) I50.33 Heart failure type: diastolic Heart failure chronicity: acute on chronic Elevated INR R79.1 Hip hematoma, left S70.02XA Acute on chronic anemia D64.9 Chronic anticoagulation Z79.01 H/O mitral valve replacement with mechanical valve Z95.2 COPD (chronic obstructive pulmonary disease) J42 COPD type: chronic bronchitis Chronic bronchitis type: unspecified Afib I48.91
[2022-12-22 06:44] LABS: Procalcitonin 0.27 ng/mL (0-0.5); Vitamin B12 416 pg/mL (232-1245)
[2022-12-22] MEDS: iron sucrose 200 MG in sodium chloride 0.9% (100 ml) 100 ML 220 MG IV (06:45)
--- NOTE | 2022-12-22 06:47 | CT_ITS ---
WS: [id number] CT HEAD TECHNIQUE: Noncontrast CT of the head obtained from the skullbase to the vertex. CLINICAL INFORMATION: encephalopathy COMPARISON: CT March 12, 2022 DLP: 1095.[address] scans at [facility] use at least one of these dose optimization techniques: automated e xposure control; mA and/or kV adjustment per patient size (includes targeted exams where dose is matc hed to clinical indication); or iterative reconstruction. FINDINGS: No evidence of intracranial hemorrhage or mass effect. Ventricular system and basal cisterns are rodriguez nt. Mild small vessel changes with [id number] parenchymal volume loss. No extra-axial fluid col lections. No evidence of mass or mass effect. Vascular calcification. Chronic appearing opacification LEFT mastoid air cells. Opacification LEFT middle ear. Mild mucosal t hickening RIGHT mastoid tip. Opacification sphenoid sinuses with secretions. Trace fluid LEFT maxilla ry sinus. Fluid and secretions in the LEFT frontal sinus and LEFT ethmoid air cells compatible with s inusitis. Normal posterior nasopharynx. Normal CT/CT head wo con* [id number] IMPRESSION: 1. No evidence of intracranial hemorrhage or mass effect. 2. Mild small vessel changes with mild to moderate parenchymal volume loss. 3. Mild LEFT paranasal and sphenoid sinus sinusitis 4. Chronic appearing opacification of the LEFT mastoid air cells and middle ea r unchanged since March 12, 2022 5. No acute intracranial findings.
--- NOTE | 2022-12-22 07:52 | PC.PHAR ---
Addendum entered by Tegan Gao 12/22/22 08:25: per jackie christopher from [facility] [place] [phone] will fax mar and tar Original Note: ATTEMPTED TO GET MAR FROM [facility] AT 7:50 AM TO VERIFY MEDICATIONS
[2022-12-22] MEDS: levalbuterol 0.63 mg/3 mL Neb INHALATION ×3 (08:11→20:52)
[2022-12-22] MEDS: ipratropium 0.5 mg/2.5 mL Neb INHALATION ×3 (08:11→20:52)
[2022-12-22] MEDS: budesonide 0.5 mg/2 mL Neb INHALATION ×2 (08:12→20:53)
[2022-12-22 09:13] LABS: INR 9.83 (0.8-1.2)
--- NOTE | 2022-12-22 10:44 | P.PN_ITS ---
Subjective Subjective: Patient was seen this morning, she does feel a little bit better, this morning, denies any fevers, no chills, no chest pain, no shortness of breath, she is alert to person, place, not to time, she can follow commands Vitals/I&O/Wt Last Vital Signs Temp 98.3 F 12/22/22 07:49 Pulse 77 12/22/22 08:00 Resp 16 12/22/22 08:00 BP 143/57 12/22/22 07:49 Pulse Ox 99 12/22/22 08:00 O2 Del Method 12/22/22 08:00 O2 Flow Rate 4 12/22/22 08:00 12/21/22 12/22/22 12/22/22 22:59 06:59 14:59 Intake Total 300 / 300 110 / 110 Balance 300 / 300 110 / 110 Weight last 48 hrs Weight 65.771 kg Weight 64.864 kg Physical Exam Const: COMMON NORMALS: no acute distress EXAM LIMITATIONS: altered mental status ORIENTATION/CONSCIOUSNESS: Yes awake, Yes oriented to person and Yes oriented to place; not oriented to time Resp: COMMON NORMALS: normal respiratory effort, No retractions, No use of accessory muscles and clear to auscultation bilaterally AUSCULTATION: clear to auscultation bilaterally Cardio: COMMON NORMALS: regular rate, regular rhythm, S1 normal heart sound present and S2 normal heart sound present RATE: regular rate RHYTHM: regular rhythm HEART SOUNDS: S1 normal heart sound present and S2 normal heart sound present GI: COMMON NORMALS: Normal to inspection, nondistended, normoactive bowel sounds present and non-tender Extremity: COMMON NORMALS: no pedal edema Neuro: SENSORIUM/ORIENTATION: Yes oriented to person, Yes oriented to place and No oriented to time Data 12/22/22 02:30 12/22/22 02:30 Micro: Microbiology 12/22/22 02:46 Blood Culture - Preliminary Blood SPECIMEN COLLECTED 12/22/22 02:55 Blood Culture - Preliminary Blood SPECIMEN COLLECTED A&P Assessment and plan (1) Acute encephalopathy: Most likely multifactorial etiology. Most likely in setting of infection. Pneumonia versus UTI. Persistent stable hypercapnia. No acidosis on ABG. Given supratherapeutic INR cannot rule out hemorrhagic CVA. Check CT head without contrast. Check urinalysis (2) Acute and chronic respiratory failure with hypercapnia: With history of COPD. CO2 and pH seems to be at baseline. Oxygen supplementation keeping saturation over 88%. BiPAP nightly and as needed. Ipratropium and Xopenex every 6 hour, budesonide twice daily. (3) Community acquired pneumonia: Check blood culture, MRSA swab, sputum culture, urine Legionella, bacterial antigen. CT chest without contrast for further evaluation of possible pneumonia. For now start patient on IV ceftriaxone and azithromycin (4) CHF (congestive heart failure): Last echocardiogram from 2021 showed EF 55% with PASP of 41 and severely dilated LA. Repeat echocardiogram. IV Lasix 40 mg daily. Patient already going into contraction alkalosis. We will start patient on Diamox 250 mg for at least next 3 days. Strict input of charting, daily weights. Lam catheterization. Fluid restriction up to 1500 cc. Qualifiers: Heart failure type: diastolic Heart failure chronicity: acute on chronic Qualified Code(s): I50.33 - Acute on chronic diastolic (congestive) heart failure (5) Elevated INR: On chronic Coumadin for mechanical mitral valve and atrial fibrillation. Target INR 2.5-3. Currently more than 8 with signs of possible new left hematoma and anemia. Will reverse with oral vitamin K at 5 mg. INR still 9.8, with hemoglobin 7.1 We will give another 10 mg of vitamin K with 1 unit FFP, 1 unit PRBC (6) Hip hematoma, left: - On examination she does have bruising of the left hip, but denies any pain -CT ordered (7) Acute on chronic anemia: Hemoglobin 7.1. New left hip hematoma. Check CT abdomen pelvis to further visualize and characterize hematoma to rule out retroperitoneal bleed. Not sure of a fall at senior care. We will also rule out hip fracture. Check iron panel, vitamin B12, folate level. Target hemoglobin more than 8. Transfuse 1 unit of PRBC. Start on IV iron supplementation. (8) Chronic anticoagulation: Hold anticoagulation for now (9) H/O mitral valve replacement with mechanical valve: (10) COPD (chronic obstructive pulmonary disease): Qualifiers: COPD type: chronic bronchitis Chronic bronchitis type: unspecified Qualified Code(s): J42 - Unspecified chronic bronchitis (11) Afib: Platelets are currently on hold Plan Analgesia: Tylenol as needed. Will avoid narcotics. Glycemic control: Not needed. A1c within normal limits Nutrition: Clear liquid diet as able. Patient is at a risk of aspiration given her mentation CODE STATUS: DNR/DNI. PUD prophylaxis: Protonix IV twice daily. DVT prophylaxis: SCDs for DVT, no medical prophylaxis given supratherapeutic INR, left hip hematoma and anemia Discharge planning: Back to senior care once medically stable. Admit to [facility] with telemetry. Will hold off on PT OT given her low hemoglobin and elevated INR Attestations Medical Necessity Statement*: Patient requires hospitalization for acute encephalopathy, pneumonia and UTI, supratherapeutic INR, low hemoglobin Diagnoses Acute encephalopathy G93.40 Acute and chronic respiratory failure with hypercapnia J96.22 Community acquired pneumonia J18.9 CHF (congestive heart failure) I50.33 Heart failure type: diastolic Heart failure chronicity: acute on chronic Elevated INR R79.1 Hip hematoma, left S70.02XA Acute on chronic anemia D64.9 Chronic anticoagulation Z79.01 H/O mitral valve replacement with mechanical valve Z95.2 COPD (chronic obstructive pulmonary disease) J42 COPD type: chronic bronchitis Chronic bronchitis type: unspecified Afib I48.91
--- NOTE | 2022-12-22 11:44 | XRR_ITS ---
PROCEDURE INFORMATION: Exam: XR Left Femur Exam date and time: 12/22/2022 11:52 AM Age: 82 years old Clinical indication: Injury or trauma; Fall; Blunt trauma; Thigh or upper leg; Left TECHNIQUE: Imaging protocol: Radiologic exam of the left femur. Views: 2 views. COMPARISON: [place] [id number] 12/22/2022 10:22 AM FINDINGS: Bones/joints: The hip was discussed in hip exam. Examination femur demonstrates a knee replacement incompletely visualized. No fracture seen elsewhere. Soft tissues: Unremarkable. XR/XR femur LT min 2V* [id number] IMPRESSION: No acute findings.
--- NOTE | 2022-12-22 11:44 | XRR_ITS ---
PROCEDURE INFORMATION: Exam: XR Left Hip Exam date and time: 12/22/2022 11:52 AM Age: 82 years old Clinical indication: Injury or trauma; Fall; Blunt trauma (contusions or hematomas); Left; Hip TECHNIQUE: Imaging protocol: Radiologic exam of the left hip. Views: 2 or 3 views hip with pelvis when performed. COMPARISON: [place] [id number] 12/22/2022 10:22 AM FINDINGS: Bones/joints: Mild spurring of the femoral head. No fracture, distal or subluxation. Mild joint space narrowing. Soft tissues: Unremarkable. XR/XR hip LT 2-3V wo/w pel* [id number] IMPRESSION: No acute findings.
[2022-12-22] MEDS: pantoprazole 40 mg SDV IVP ×2 (11:45→21:10)
[2022-12-22] MEDS: phytonadione (ADULT) 10 mg/mL Ampule 1 mL SUBCUT (11:47)
[2022-12-22] MEDS: sodium chloride 0.9% 100 mL Bag 50 ML IV (11:50)
[2022-12-22 12:06] LABS: Urine Appearance Hazy (CLEAR); Urine Color Dark Yellow (Yellow); pH Urine 7 (5-7)
[2022-12-22 12:07] LABS: Add Urine Microscopic? YES; Bacteria Urine TRACE /hpf; Bilirubin Urine Neg (Negative); Blood Urine 3+ (Negative); Glucose Urine UA Norm (Normal); Ketones Urine Negative (Negative); Leukocyte Esterase Urine Negative (Negative); Nitrate Urine Negative (Negative); Protein Urine Neg (Negative); Urobilinogen Urine 4 mg/dL (Negative); WBC Urine 0-4 /hpf (0-5)
[2022-12-22 12:08] LABS: Add Urine Culture? No; Hyaline Casts Urine 0-4 /lpf
--- NOTE | 2022-12-22 12:39 | PC.SLP ---
MANAGEMENT ENGINEER checked on pt. Pt is not alert enough to participate in an MANAGEMENT ENGINEER eval at this time. MANAGEMENT ENGINEER will try again later today. Pt is also currently on BiPAP.
[2022-12-22 17:40] LABS: Basophils % 0.3 %; Eosinophils # 0.1 10^3/uL (0.0-0.8); Eosinophils % 1.2 %; Hematocrit 25.6 % (37.0-47.0); Hemoglobin 7.7 g/dL (11.5-15.3); Lymphocytes # 0.7 10^3/uL (0.8-4.8); Lymphocytes % 9.2 %; Mean Corpuscular HGB Conc 30.1 g/dL (30.0-36.0); Mean Corpuscular Hemoglobin 28.1 pg (28.0-34.0); Mean Corpuscular Volume 93.4 fl (81-99); Mean Platelet Volume 9.4 fL (7.4-10.4); Monocytes # 0.7 10^3/uL (0.2-0.9); Monocytes % 9.9 %; Neutrophils # 5.73 10^3/uL (1.8-7.7); Neutrophils % 77.2 %; Nucleated Red Blood Cells % 0.4 %; Platelet Count 196 10^3/cmm (130-400); Red Blood Count 2.74 10^6/uL (4.1-5.3); White Blood Count 7.4 10^3/uL (4.0-10.0)
[2022-12-22] MEDS: docusate sodium 100 mg Capsule PO (17:43)
[2022-12-22 18:02] LABS: INR 3.22 (0.8-1.2)
--- NOTE | 2022-12-22 19:51 | PC.NURSE ---
at bedside during shift assessment.
--- NOTE | 2022-12-22 21:28 | PC.NURSE ---
Vital signs entered 1834 by this nurse was actually at 1950, Unable to edit time.
[2022-12-23] VITALS (12 sets, daily range): BP systolic 110–177; BP diastolic 43–74; PULSE 56–96; RESP 15–36; TEMP 36.4–36.9; O2SAT 94–100
[2022-12-23] MEDS: cefTRIAXone 1,000 MG in sodium chloride 0.9% (plus) 50 ML 100 MG IV (01:40)
[2022-12-23] MEDS: azithromycin 500 MG in sodium chloride 0.9% 250 ML 250 MG IV (02:20)
[2022-12-23] MEDS: levalbuterol 0.63 mg/3 mL Neb INHALATION ×3 (02:54→20:31)
[2022-12-23] MEDS: ipratropium 0.5 mg/2.5 mL Neb INHALATION ×3 (02:54→20:31)
[2022-12-23] MEDS: levothyroxine 50 mcg Tablet PO (05:18)
[2022-12-23 05:36] LABS: Basophils % 0.5 %; Eosinophils # 0.1 10^3/uL (0.0-0.8); Eosinophils % 1.6 %; Hematocrit 30.4 % (37.0-47.0); Hemoglobin 9.4 g/dL (11.5-15.3); Lymphocytes # 0.8 10^3/uL (0.8-4.8); Lymphocytes % 9.5 %; Mean Corpuscular HGB Conc 30.9 g/dL (30.0-36.0); Mean Corpuscular Hemoglobin 28.7 pg (28.0-34.0); Mean Corpuscular Volume 92.7 fl (81-99); Mean Platelet Volume 9.4 fL (7.4-10.4); Monocytes # 0.7 10^3/uL (0.2-0.9); Monocytes % 8.4 %; Neutrophils % 77.8 %; Nucleated Red Blood Cells % 0 %; Platelet Count 206 10^3/cmm (130-400); Red Blood Count 3.28 10^6/uL (4.1-5.3); Red Cell Distribution Width 14.9 % (12.1-15.1); White Blood Count 8.5 10^3/uL (4.0-10.0)
[2022-12-23 05:50] LABS: INR 2.12 (0.8-1.2)
[2022-12-23 05:59] LABS: Alanine Aminotransferase 9 U/L (0-33); Albumin Level 3.1 g/dL (3.5-5.2); Alkaline Phosphatase 101 U/L (35-105); Anion Gap 10.1 (5-19); Aspartate Amino Transferase 14 U/L (0-32); Blood Urea Nitrogen 18 mg/dL (8-23); Calcium 8.7 mg/dL (8.5-10.5); Chloride 97 mmol/L (98-107); Globulin 3.4 g/dL (1.3-4.6); Glucose 87 mg/dL (65-115); Osmolality Calculated 301 mOsm/kg (285-295); Phosphorus 2.9 mg/dL (2.5-4.5); Potassium 3.1 mmol/L (3.5-5.1); Sodium 145 mmol/L (136-145); Total Bilirubin 2.6 mg/dL (0.15-1.2); Total Protein 6.5 g/dL (6.6-8.7)
[2022-12-23] MEDS: iron sucrose 200 MG in sodium chloride 0.9% (100 ml) 100 ML 220 MG IV (06:09)
[2022-12-23 06:12] LABS: Carbon Dioxide 41 mmol/L (22-29)
[2022-12-23 06:19] LABS: Estmated Average Glucose 97
[2022-12-23] MEDS: budesonide 0.5 mg/2 mL Neb INHALATION ×2 (08:17→20:31)
[2022-12-23] MEDS: isosorbide mononitrate ER 30 mg Tablet PO (09:32)
[2022-12-23] MEDS: pantoprazole 40 mg SDV IVP ×2 (09:32→20:28)
[2022-12-23] MEDS: citalopram 20 mg Tablet 10 MG PO (09:33)
[2022-12-23] MEDS: docusate sodium 100 mg Capsule PO (09:34)
[2022-12-23] MEDS: potassium chloride ER 20 mEq Tablet PO ×2 (09:34→09:36)
[2022-12-23] MEDS: acetaZOLAMIDE 250 mg Tablet PO (09:59)
[2022-12-23] MEDS: acetaminophen 325 mg Tablet 650 MG PO (10:07)
--- NOTE | 2022-12-23 10:58 | PC.CHAP ---
Pastoral Care Encounter/Spiritual Assessment Type of Contact [] Declined children's attendant visit [] Patient/Family/Request visit [] Outpatient visit [] Follow-up visit [] Physician referral [] Code/Alert [x] Routine visit [] Staff referral [] Actively dying [x] Patient sleeping [] Family support [] [] Out of room [] Palliative care [] [] Receiving care in room [] Pre-surgical visit [] Trauma [] Long length of stay [] ICU visit [] Other: Relational/Emotional Strength [] Patient feels connected with others/family/visitors/staff [] Distress [] Loneliness/isolation [] Abandonment Spirituality of Patient [] Person of Vivian [] Attends Druze of their Vivian [] Believes in Prayer [] Reads Bible or Christian materials [] There are Spiritual issues to be addressed Intake Assessor Interventions [] Prayer [] Active listening [] Non-anxious presence [] Spiritual/emotional support [] Crisis/trauma care [] Spiritual counseling [] Bereavement support [] Provided bereavement packet [] Provided Bible/devotional materials [] Provided toy/stuffed animal, coloring book to patient or family member [] Provided Communion [] Anointing/Spring [] Salvation [] Completed spiritual assessment [] Other: Impact on Illness or Injury [] Angry [] Fearful [] Anxious [] Often cries [] Exhaustion [] Unable to work [] Unable to attend jewish [] Unable to walk/stand [] Unable to read [] Unable to drive [] Unable to eat/drink [] Unable to sleep [] Unable to be with family [] Patient intubated [] Other: Summary Time spent with patient
[2022-12-23] MEDS: sucralfate 1 gm Tablet PO (12:04)
--- NOTE | 2022-12-23 12:34 | P.PN_ITS ---
Subjective Subjective: Patient was seen this morning she is alert to person, place, not to time she is much more alert and awake, she is not sure how she hit her left hip, she is not sure if she fell, no fevers, no cough Vitals/I&O/Wt Last Vital Signs Temp 98.2 F 12/23/22 11:29 Pulse 56 L 12/23/22 11:29 Resp 15 12/23/22 11:29 BP 110/67 12/23/22 11:29 Pulse Ox 94 12/23/22 11:29 O2 Del Method 12/23/22 11:29 O2 Flow Rate 3 12/23/22 08:18 FiO2 36 12/23/22 02:55 12/22/22 12/23/22 12/23/22 22:59 06:59 14:59 Intake Total 1180 / 1647 530 / 2177 240 / 240 Output Total 300 / 300 130 / 430 Balance 880 / 1347 400 / 1747 240 / 240 Weight last 48 hrs Weight 68.538 kg Weight 65.771 kg Weight 64.864 kg Physical Exam Const: COMMON NORMALS: no acute distress Resp: COMMON NORMALS: normal respiratory effort, No retractions, No use of accessory muscles and clear to auscultation bilaterally AUSCULTATION: clear to auscultation bilaterally Cardio: COMMON NORMALS: regular rate, regular rhythm, S1 normal heart sound present and S2 normal heart sound present RATE: regular rate RHYTHM: regular rhythm HEART SOUNDS: S1 normal heart sound present and S2 normal heart sound present GI: COMMON NORMALS: Normal to inspection, nondistended, normoactive bowel sounds present and non-tender Back/Pelvis: OTHER: On examination, left hip swelling Extremity: COMMON NORMALS: no pedal edema Urinary Catheter Management: Lam: Cath Placed During This Visit: yes Reason for Continuing Indwelling Catheter: Other Urinary Catheter Date of Insertion: 12/22/22 Urinary Catheter Time of Insertion: 11:15 Data 12/23/22 04:26 12/23/22 04:26 Micro: Microbiology 12/22/22 02:46 Blood Culture - Preliminary Blood NEGATIVE TO DATE 12/22/22 02:55 Blood Culture - Preliminary Blood NEGATIVE TO DATE 12/22/22 10:38 Gram Stain - Final Sputum - Expectorated Sputum 12/22/22 11:25 Legionella Urinary Antigen - Final Urine Catheterized 12/22/22 11:25 Bacterial Antigens - Final Urine Kidney A&P Assessment and plan (1) Acute encephalopathy: Resolving Most likely multifactorial etiology. Most likely in setting of infection. Pneumonia, and UTI Persistent stable hypercapnia. No acidosis on ABG. (2) Acute and chronic respiratory failure with hypercapnia: With history of COPD. CO2 and pH seems to be at baseline. Oxygen supplementation keeping saturation over 88%. BiPAP nightly and as needed. Ipratropium and Xopenex every 6 hour, budesonide twice daily. (3) Community acquired pneumonia: Check blood culture, MRSA swab, sputum culture, urine Legionella, bacterial antigen. CT chest shows patchy infiltrate right upper lobe, right hilum For now start patient on IV ceftriaxone and azithromycin Possible aspiration, aspiration precautions, speech therapy eval (4) CHF (congestive heart failure): Last echocardiogram from 2021 showed EF 55% with PASP of 41 and severely dilated LA. Repeat echocardiogram. IV Lasix 40 mg daily. Patient already going into contraction alkalosis. We will start patient on Diamox 250 mg for at least next 3 days. Strict input of charting, daily weights. Lam catheterization. Fluid restriction up to 1500 cc. Qualifiers: Heart failure type: diastolic Heart failure chronicity: acute on chronic Qualified Code(s): I50.33 - Acute on chronic diastolic (congestive) heart failure (5) Elevated INR: On chronic Coumadin for mechanical mitral valve and atrial fibrillation. Target INR 2.5-3. Currently more than 8 with signs of possible new left hematoma and anemia. Received 2 doses of vitamin K, 1 dose FFP INR still 2.12, hemoglobin 9.4 Monitor INR INR reversed due to acute anemia, left hip hematoma (6) Hip hematoma, left: - On examination she does have bruising of the left hip, but denies any pain -CT ordered Large intramuscular hematoma involving the LEFT gluteus medius with mixed attenuation blood products. Hematoma measures 9.5 x 5.4 x 12.9 CM. Associated subcutaneous soft tissue edema. Visualized LEFT femoral neck appears -We will hold blood thinner (7) Acute on chronic anemia: Hemoglobin 7.1. Currently 9.4 new left hip hematoma. Status post 2 PRBC Start on IV iron supplementation. (8) Chronic anticoagulation: Hold anticoagulation for now (9) H/O mitral valve replacement with mechanical valve: (10) COPD (chronic obstructive pulmonary disease): Qualifiers: COPD type: chronic bronchitis Chronic bronchitis type: unspecified Qualified Code(s): J42 - Unspecified chronic bronchitis (11) Afib: Platelets are currently on hold Plan Analgesia: Tylenol as needed. Will avoid narcotics. Glycemic control: Not needed. A1c within normal limits Nutrition: Clear liquid diet as able. Patient is at a risk of aspiration given her mentation CODE STATUS: DNR/DNI. PUD prophylaxis: Protonix IV twice daily. DVT prophylaxis: SCDs for DVT, no medical prophylaxis given supratherapeutic I NR, left hip hematoma and anemia Discharge planning: Back to intermediate once medically stable. Admit to [facility] with telemetry. Will hold off on PT OT given her low hemoglobin and elevated INR Attestations Medical Necessity Statement*: Patient requires hospitalization due to pneumonia, left hip hematoma, anemia, supratherapeutic INR Diagnoses Acute encephalopathy G93.40 Acute and chronic respiratory failure with hypercapnia J96.22 Community acquired pneumonia J18.9 CHF (congestive heart failure) I50.33 Heart failure type: diastolic Heart failure chronicity: acute on chronic Elevated INR R79.1 Hip hematoma, left S70.02XA Acute on chronic anemia D64.9 Chronic anticoagulation Z79.01 H/O mitral valve replacement with mechanical valve Z95.2 COPD (chronic obstructive pulmonary disease) J42 COPD type: chronic bronchitis Chronic bronchitis type: unspecified Afib I48.91
[2022-12-23 15:16] LABS: Platelet Count 199 10^3/cmm (130-400)
[2022-12-23] MEDS: atorvastatin 40 mg Tablet PO (20:27)
[2022-12-23 21:40] LABS: Basophils % 0.4 %; Eosinophils # 0.2 10^3/uL (0.0-0.8); Eosinophils % 2.4 %; Hematocrit 28.6 % (37.0-47.0); Hemoglobin 8.7 g/dL (11.5-15.3); Lymphocytes # 0.9 10^3/uL (0.8-4.8); Lymphocytes % 11.7 %; Mean Corpuscular HGB Conc 30.4 g/dL (30.0-36.0); Mean Corpuscular Hemoglobin 28.9 pg (28.0-34.0); Mean Platelet Volume 9.3 fL (7.4-10.4); Monocytes # 0.7 10^3/uL (0.2-0.9); Monocytes % 8.6 %; Neutrophils % 74.5 %; Nucleated Red Blood Cells % 0 %; Platelet Count 202 10^3/cmm (130-400); Red Blood Count 3.01 10^6/uL (4.1-5.3); White Blood Count 7.8 10^3/uL (4.0-10.0)
[2022-12-24] VITALS (17 sets, daily range): BP systolic 105–136; BP diastolic 55–72; PULSE 65–96; RESP 16–33; TEMP 36.6–37.2; O2SAT 94–100; BMI 27.3
[2022-12-24] MEDS: cefTRIAXone 1,000 MG in sodium chloride 0.9% (plus) 50 ML 100 MG IV (01:48)
[2022-12-24] MEDS: azithromycin 500 MG in sodium chloride 0.9% 250 ML 250 MG IV (02:42)
[2022-12-24] MEDS: ipratropium 0.5 mg/2.5 mL Neb INHALATION ×4 (03:15→20:03)
[2022-12-24] MEDS: levalbuterol 0.63 mg/3 mL Neb INHALATION ×4 (03:15→20:03)
[2022-12-24 05:01] LABS: Basophils % 0.4 %; Eosinophils # 0.2 10^3/uL (0.0-0.8); Eosinophils % 2.4 %; Hemoglobin 8.3 g/dL (11.5-15.3); Lymphocytes # 0.8 10^3/uL (0.8-4.8); Lymphocytes % 11.2 %; Mean Corpuscular HGB Conc 29.6 g/dL (30.0-36.0); Mean Corpuscular Hemoglobin 28.2 pg (28.0-34.0); Mean Corpuscular Volume 95.2 fl (81-99); Mean Platelet Volume 9.3 fL (7.4-10.4); Monocytes # 0.5 10^3/uL (0.2-0.9); Monocytes % 7.2 %; Neutrophils # 5.24 10^3/uL (1.8-7.7); Neutrophils % 75.6 %; Nucleated Red Blood Cells % 0 %; Platelet Count 194 10^3/cmm (130-400); Red Blood Count 2.94 10^6/uL (4.1-5.3); White Blood Count 6.9 10^3/uL (4.0-10.0)
[2022-12-24 05:18] LABS: INR 1.68 (0.8-1.2)
[2022-12-24] MEDS: levothyroxine 50 mcg Tablet PO (05:24)
[2022-12-24 05:33] LABS: Alanine Aminotransferase < 5 U/L (0-33); Albumin Level 2.8 g/dL (3.5-5.2); Alkaline Phosphatase 91 U/L (35-105); Anion Gap 9.1 (5-19); Aspartate Amino Transferase 11 U/L (0-32); Blood Urea Nitrogen 15 mg/dL (8-23); Calcium 8.5 mg/dL (8.5-10.5); Carbon Dioxide 35 mmol/L (22-29); Chloride 99 mmol/L (98-107); Glucose 84 mg/dL (65-115); Magnesium 2.3 mg/dL (1.7-2.3); NT Pro B Type Natriuretic Pept 1234 pg/mL (0-450); Osmolality Calculated 290 mOsm/kg (285-295); Phosphorus 2.4 mg/dL (2.5-4.5); Potassium 3.1 mmol/L (3.5-5.1); Sodium 140 mmol/L (136-145); Total Bilirubin 1.5 mg/dL (0.15-1.2); Total Protein 5.8 g/dL (6.6-8.7)
[2022-12-24] MEDS: budesonide 0.5 mg/2 mL Neb INHALATION ×2 (08:29→20:03)
[2022-12-24] MEDS: heparin drip 25,000 UNIT/500 ML PREMIX 20 UNIT IV (09:07)
[2022-12-24] MEDS: isosorbide mononitrate ER 30 mg Tablet PO (09:18)
[2022-12-24] MEDS: citalopram 20 mg Tablet 10 MG PO (09:18)
[2022-12-24] MEDS: potassium chloride ER 20 mEq Tablet 40 MEQ PO (09:19)
[2022-12-24] MEDS: docusate sodium 100 mg Capsule PO ×2 (09:19→18:22)
[2022-12-24] MEDS: potassium chloride ER 20 mEq Tablet PO (09:23)
[2022-12-24] MEDS: acetaZOLAMIDE 250 mg Tablet PO (09:23)
[2022-12-24] MEDS: pantoprazole 40 mg SDV IVP ×2 (12:59→21:58)
[2022-12-24] MEDS: sucralfate 1 gm Tablet PO ×2 (12:59→23:47)
--- NOTE | 2022-12-24 15:54 | P.PN_ITS ---
Subjective Subjective: Patient was seen this morning, she is much more alert, awake, denies any fevers, chills, nausea, no vomiting, no chest pain Vitals/I&O/Wt Last Vital Signs Temp 98.3 F 12/24/22 12:00 Pulse 96 12/24/22 13:59 Resp 17 12/24/22 13:53 BP 118/70 12/24/22 12:00 Pulse Ox 100 12/24/22 13:53 O2 Del Method 12/24/22 13:53 O2 Flow Rate 3 12/24/22 13:53 FiO2 36 12/24/22 03:16 12/24/22 12/24/22 12/24/22 06:59 14:59 22:59 Intake Total 300 / 1020 100 / 100 Output Total 650 / 1100 250 / 250 Balance -350 / -80 -150 / -150 Weight last 48 hrs Weight 69.882 kg Weight 68.538 kg Physical Exam Const: COMMON NORMALS: no acute distress ORIENTATION/CONSCIOUSNESS: Yes awake, Yes oriented to person and Yes oriented to place; not oriented to time Resp: COMMON NORMALS: normal respiratory effort, No retractions, No use of accessory muscles and clear to auscultation bilaterally AUSCULTATION: clear to auscultation bilaterally Cardio: COMMON NORMALS: regular rate, regular rhythm, S1 normal heart sound present and S2 normal heart sound present RATE: regular rate RHYTHM: regular rhythm HEART SOUNDS: S1 normal heart sound present and S2 normal heart sound present GI: COMMON NORMALS: Normal to inspection, nondistended, normoactive bowel so unds present and non-tender Back/Pelvis: OTHER: On examination, left hip hematoma site, slightly more bruised, not extending, Extremity: COMMON NORMALS: no pedal edema Neuro: SENSORIUM/ORIENTATION: Yes oriented to person, Yes oriented to place and No oriented to time Psych: COMMON NORMALS: mental status grossly normal Urinary Catheter Management: Lam: Cath Placed During This Visit: yes Reason for Continuing Indwelling Catheter: Other Urinary Catheter Date of Insertion: 12/22/22 Urinary Catheter Time of Insertion: 11:15 Data 12/24/22 04:27 12/24/22 04:27 Micro: Microbiology 12/22/22 10:38 Gram Stain - Final Sputum - Expectorated Sputum Sputum Culture - Preliminary 12/22/22 06:30 MRSA Culture - Final Nose A&P Assessment and plan (1) Acute encephalopathy: Resolving Most likely multifactorial etiology. Most likely in setting of infection. Pneumonia, and UTI Persistent stable hypercapnia. No acidosis on ABG. (2) Acute and chronic respiratory failure with hypercapnia: With history of COPD. CO2 and pH seems to be at baseline. Oxygen supplementation keeping saturation over 88%. BiPAP nightly and as needed. Ipratropium and Xopenex every 6 hour, budesonide twice daily. (3) Community acquired pneumonia: CT chest shows patchy infiltrate right upper lobe, right hilum For now continue on IV ceftriaxone and azithromycin Possible aspiration, aspiration precautions, speech therapy eval (4) CHF (congestive heart failure): Last echocardiogram from 2021 showed EF 55% with PASP of 41 and severely dilated LA. Repeat echocardiogram. IV Lasix 40 mg daily. Patient already going into contraction alkalosis. We will start patient on Diamox 250 mg for at least next 3 days. Strict input of charting, daily weights. Lam catheterization. Fluid restriction up to 1500 cc. Qualifiers: Heart failure type: diastolic Heart failure chronicity: acute on chronic Qualified Code(s): I50.33 - Acute on chronic diastolic (congestive) heart failure (5) Elevated INR: On chronic Coumadin for mechanical mitral valve and atrial fibrillation. Target INR 2.5-3. Currently more than 8 with signs of possible new left hematoma and anemia. Received 2 doses of vitamin K, 1 dose FFP INR still 1.68 Monitor INR INR reversed due to acute anemia, left hip hematoma (6) Hip hematoma, left: - On examination she does have bruising of the left hip, but denies any pain -CT ordered Large intramuscular hematoma involving the LEFT gluteus medius with mixed attenuation blood products. Hematoma measures 9.5 x 5.4 x 12.9 CM. Associated subcutaneous soft tissue edema. Visualized LEFT femoral neck appears -Monitor (7) Acute on chronic anemia: Hemoglobin 7.1. Currently 8.3 new left hip hematoma. Status post 2 PRBC Start on IV iron supplementation. (8) Chronic anticoagulation: - Has a mechanical mitral valve in place -INR is stable, hemoglobin stable, hematoma on examination is stable -Placed on a heparin drip today, with p.o. Coumadin -Monitor hemoglobin closely, monitor INR (9) H/O mitral valve replacement with mechanical valve: (10) COPD (chronic obstructive pulmonary disease): Qualifiers: COPD type: chronic bronchitis Chronic bronchitis type: unspecified Qualified Code(s): J42 - Unspecified chronic bronchitis (11) Afib: As above Plan Analgesia: Tylenol as needed. Will avoid narcotics. Glycemic control: Not needed. A1c within normal limits Nutrition: Clear liquid diet as able. Patient is at a risk of aspiration given her mentation CODE STATUS: DNR/DNI. PUD prophylaxis: Protonix IV twice daily. DVT prophylaxis: SCDs for DVT, no medical prophylaxis given supratherapeutic INR, left hip hematoma and anemia Discharge planning: Back to care home once medically stable. Admit to [facility] with telemetry. Will hold off on PT OT given her low hemoglobin and elevated INR Attestations Medical Necessity Statement*: Patient requires hospitalization due to acute anemia, elevated INR, with left hip hematoma encephalopathy with pneumonia, UTI, now needs anticoagulation due to mechanical mitral valve requiring inpatient mission to monitor INR hemoglobin, left hip hematoma Diagnoses Acute encephalopathy G93.40 Acute and chronic respiratory failure with hypercapnia J96.22 Community acquired pneumonia J18.9 CHF (congestive heart failure) I50.33 Heart failure type: diastolic Heart failure chronicity: acute on chronic Elevated INR R79.1 Hip hematoma, left S70.02XA Acute on chronic anemia D64.9 Chronic anticoagulation Z79.01 H/O mitral valve replacement with mechanical valve Z95.2 COPD (chronic obstructive pulmonary disease) J42 COPD type: chronic bronchitis Chronic bronchitis type: unspecified Afib I48.91
[2022-12-24 15:55] LABS: Partial Thromboplastin Time 66.6 SECONDS (23.9-36.7)
[2022-12-24 16:38] LABS: Basophils % 0.4 %; Eosinophils # 0.2 10^3/uL (0.0-0.8); Eosinophils % 2.4 %; Hematocrit 28.4 % (37.0-47.0); Hemoglobin 8.4 g/dL (11.5-15.3); Lymphocytes # 0.9 10^3/uL (0.8-4.8); Lymphocytes % 12.6 %; Mean Corpuscular HGB Conc 29.6 g/dL (30.0-36.0); Mean Corpuscular Hemoglobin 28.5 pg (28.0-34.0); Mean Corpuscular Volume 96.3 fl (81-99); Mean Platelet Volume 10.2 fL (7.4-10.4); Monocytes # 0.5 10^3/uL (0.2-0.9); Monocytes % 7.2 %; Neutrophils # 5.56 10^3/uL (1.8-7.7); Neutrophils % 74.7 %; Nucleated Red Blood Cells % 0 %; Platelet Count 220 10^3/cmm (130-400); Red Blood Count 2.95 10^6/uL (4.1-5.3); White Blood Count 7.5 10^3/uL (4.0-10.0)
[2022-12-24] MEDS: warfarin 5 mg Tablet PO (16:41)
[2022-12-24] MEDS: atorvastatin 40 mg Tablet PO (20:47)
[2022-12-24] MEDS: acetaminophen 325 mg Tablet 650 MG PO (20:47)
[2022-12-24 23:11] LABS: Partial Thromboplastin Time 91.2 SECONDS (23.9-36.7)
[2022-12-25] VITALS (14 sets, daily range): BP systolic 121–150; BP diastolic 66–76; PULSE 63–82; RESP 14–20; TEMP 36.5–36.8; O2SAT 92–100
[2022-12-25] MEDS: cefTRIAXone 1,000 MG in sodium chloride 0.9% (plus) 50 ML 100 MG IV (02:03)
[2022-12-25] MEDS: azithromycin 500 MG in sodium chloride 0.9% 250 ML 250 MG IV (02:47)
[2022-12-25 05:40] LABS: Basophils % 0.5 %; Eosinophils # 0.2 10^3/uL (0.0-0.8); Hematocrit 30.6 % (37.0-47.0); Lymphocytes # 1.3 10^3/uL (0.8-4.8); Lymphocytes % 15.5 %; Mean Corpuscular HGB Conc 29.4 g/dL (30.0-36.0); Mean Corpuscular Hemoglobin 28.4 pg (28.0-34.0); Mean Corpuscular Volume 96.5 fl (81-99); Mean Platelet Volume 9.1 fL (7.4-10.4); Monocytes # 0.7 10^3/uL (0.2-0.9); Monocytes % 8.2 %; Neutrophils % 69.1 %; Nucleated Red Blood Cells % 0 %; Platelet Count 214 10^3/cmm (130-400); Red Blood Count 3.17 10^6/uL (4.1-5.3); Red Cell Distribution Width 14.8 % (12.1-15.1); White Blood Count 8.1 10^3/uL (4.0-10.0)
[2022-12-25] MEDS: levothyroxine 50 mcg Tablet PO (05:45)
[2022-12-25 05:59] LABS: Anion Gap 9.5 (5-19); Blood Urea Nitrogen 15 mg/dL (8-23); Carbon Dioxide 33 mmol/L (22-29); Chloride 104 mmol/L (98-107); Glucose 108 mg/dL (65-115); Osmolality Calculated 295 mOsm/kg (285-295); Potassium 4.5 mmol/L (3.5-5.1); Sodium 142 mmol/L (136-145)
[2022-12-25 06:02] LABS: Partial Thromboplastin Time 82.2 SECONDS (23.9-36.7)
[2022-12-25 06:12] LABS: INR 1.22 (0.8-1.2)
[2022-12-25] MEDS: levalbuterol 0.63 mg/3 mL Neb INHALATION ×3 (07:56→19:52)
[2022-12-25] MEDS: budesonide 0.5 mg/2 mL Neb INHALATION ×2 (07:56→19:52)
[2022-12-25] MEDS: ipratropium 0.5 mg/2.5 mL Neb INHALATION ×3 (07:56→19:52)
[2022-12-25] MEDS: pantoprazole 40 mg SDV IVP ×2 (09:17→20:18)
[2022-12-25] MEDS: docusate sodium 100 mg Capsule PO (09:18)
[2022-12-25] MEDS: potassium chloride ER 20 mEq Tablet PO (09:18)
[2022-12-25] MEDS: citalopram 20 mg Tablet 10 MG PO (09:18)
[2022-12-25] MEDS: isosorbide mononitrate ER 30 mg Tablet PO (09:19)
--- NOTE | 2022-12-25 11:00 | PC.SOCIAL ---
IMM Update pg 2 of IMM updated and reviewed w/ patient. Copy provided and Copy dated, initialed and placed in chart.
--- NOTE | 2022-12-25 11:55 | PC.OT ---
Unable to wake patient for Occupational therapy evaluation. Patient's says that this is within her normal routine. Will attempt evaluation again tomorrow.
[2022-12-25] MEDS: heparin drip 25,000 UNIT/500 ML PREMIX 16 UNIT IV (13:03)
[2022-12-25 13:40] LABS: Partial Thromboplastin Time 68.9 SECONDS (23.9-36.7)
--- NOTE | 2022-12-25 15:03 | PM.PN ---
Subjective Subjective: Patient was seen this morning she is alert and awake, she denies any hip pain, no back pain but she falls back asleep, patient's is at bedside, discussed patient's left hip hematoma her anemia, I have her on heparin drip with Coumadin monitoring her hemoglobin closely, she has a mechanical valve so she needs to be anticoagulated due to risk of valve failure and stroke, however she is developed a hip hematoma with anemia. For now we will continue to monitor heparin for another 24 hours if her hemoglobin remained stable with Coumadin we will likely [facility] back to the [facility]. With Coumadin and Lovenox bridge if her hemoglobin can tolerate it and she can tolerate it. Vitals/I&O/Wt Last Vital Signs Temp 97.7 F 12/25/22 11:35 Pulse 78 12/25/22 14:21 Resp 16 12/25/22 14:17 BP 121/76 12/25/22 11:35 Pulse Ox 99 12/25/22 14:17 O2 Del Method 12/25/22 14:17 O2 Flow Rate 3 12/25/22 14:17 FiO2 36 12/24/22 03:16 12/25/22 12/25/22 12/25/22 06:59 14:59 22:59 Intake Total 701.216 / 1157.216 338.784 / 338.784 Output Total 450 / 1250 Balance 251.216 / -92.784 338.784 / 338.784 Weight last 48 hrs Weight 71.214 kg Weight 69.882 kg Physical Exam Const: COMMON NORMALS: no acute distress and patient oriented x3 Neck/C-Spine: COMMON NORMALS: no JVD Resp: COMMON NORMALS: normal respiratory effort, No retractions, No use of accessory muscles and clear to auscultation bilaterally AUSCULTATION: clear to auscultation bilaterally Cardio: COMMON NORMALS: no JVD, regular rate, regular rhythm, S1 normal heart sound present and S2 normal heart sound present RATE: regular rate RHYTHM: regular rhythm HEART SOUNDS: S1 normal heart sound present and S2 normal heart sound present GI: COMMON NORMALS: Normal to inspection, nondistended, normoactive bowel sounds present and non-tender Extremity: COMMON NORMALS: no pedal edema Neuro: COMMON NORMALS: patient oriented x3 Psych: COMMON NORMALS: mental status grossly normal Urinary Catheter Management: Lam: Cath Placed During This Visit: yes Reason for Continuing Indwelling Catheter: Other Urinary Catheter Date of Insertion: 12/22/22 Urinary Catheter Time of Insertion: 11:15 Data 12/25/22 05:30 12/25/22 05:30 Micro: Microbiology 12/22/22 10:38 Gram Stain - Final Sputum - Expectorated Sputum Sputum Culture - Final A&P Assessment and plan (1) Acute encephalopathy: Resolving Most likely multifactorial etiology. Most likely in setting of infection. Pneumonia, and UTI Persistent stable hypercapnia. No acidosis on ABG. (2) Acute and chronic respiratory failure with hypercapnia: With history of COPD. CO2 and pH seems to be at baseline. Oxygen supplementation keeping saturation over 88%. BiPAP nightly and as needed. Ipratropium and Xopenex every 6 hour, budesonide twice daily. (3) Community acquired pneumonia: CT chest shows patchy infiltrate right upper lobe, right hilum For now continue on IV ceftriaxone and azithromycin Possible aspiration, aspiration precautions, speech therapy eval (4) CHF (congestive heart failure): Last echocardiogram from 2021 showed EF 55% with PASP of 41 and severely dilated LA. Repeat echocardiogram. IV Lasix 40 mg daily. Patient already going into contraction alkalosis. We will start patient on Diamox 250 mg for at least next 3 days. Strict input of charting, daily weights. Lma catheterization. Fluid restriction up to 1500 cc. Qualifiers: Heart failure type: diastolic Heart failure chronicity: acute on chronic Qualified Code(s): I50.33 - Acute on chronic diastolic (congestive) heart failure (5) Elevated INR: On chronic Coumadin for mechanical mitral valve and atrial fibrillation. Target INR 2.5-3. Currently more than 8 with signs of possible new left hematoma and anemia. Received 2 doses of vitamin K, 1 dose FFP INR 9.8, now 1.2 to Monitor INR INR reversed due to acute anemia, left hip hematoma, now resolved (6) Hip hematoma, left: - On examination she does have bruising of the left hip, but denies any pain -CT ordered Large intramuscular hematoma involving the LEFT gluteus medius with mixed attenuation blood products. Hematoma measures 9.5 x 5.4 x 12.9 CM. Associated subcutaneous soft tissue edema. Visualized LEFT femoral neck appears -Monitor (7) Acute on chronic anemia: Hemoglobin 7.1. Currently 8.3 new left hip hematoma. Status post 2 PRBC Has received IV IV iron supplementation. (8) Chronic anticoagulation: - Has a mechanical mitral valve in place -INR is stable, hemoglobin stable, hematoma on examination is stable -Placed on a heparin drip, with p.o. Coumadin -Monitor hemoglobin closely, monitor INR, monitor hemodynamics closely -If her hemoglobin can tolerate, and her hematoma does not enlarge then we can continue Coumadin with Lovenox bridge at [facility] -However if her hemoglobin drops or hematoma large we might have to discontinue anticoagulation for some period of time until her hemoglobin and her hematoma can tolerate it (9) H/O mitral valve replacement with mechanical valve: (10) COPD (chronic obstructive pulmonary disease): Qualifiers: COPD type: chronic bronchitis Chronic bronchitis type: unspecified Qualified Code(s): J42 - Unspecified chronic bronchitis (11) Afib: As above Plan Analgesia: Tylenol as needed. Will avoid narcotics. Glycemic control: Not needed. A1c within normal limits Nutrition: Clear liquid diet as able. Patient is at a risk of aspiration given her mentation CODE STATUS: DNR/DNI. PUD prophylaxis: Protonix IV twice daily. DVT prophylaxis: SCDs for DVT, no medical prophylaxis given supratherapeutic INR, left hip hematoma and anemia Discharge planning: Back to [facility] once medically stable. Admit to [facility] with telemetry. Attestations Medical Necessity Statement*: Patient requires hospitalization for left hip hematoma, anemia, UTI, pneumonia, Coding Level of Care Code Acute Code for g Fwd Diagnoses Acute encephalopathy G93.40 Acute and chronic respiratory failure with hypercapnia J96.22 Community acquired pneumonia J18.9 CHF (congestive heart failure) I50.33 Heart failure type: diastolic Heart failure chronicity: acute on chronic Elevated INR R79.1 Hip hematoma, left S70.02XA Acute on chronic anemia D64.9 Chronic anticoagulation Z79.01 H/O mitral valve replacement with mechanical valve Z95.2 COPD (chronic obstructive pulmonary disease) J42 COPD type: chronic bronchitis Chronic bronchitis type: unspecified Afib I48.91
[2022-12-25] MEDS: warfarin 5 mg Tablet PO (16:08)
[2022-12-25] MEDS: atorvastatin 40 mg Tablet PO (20:18)
[2022-12-25 20:25] LABS: Partial Thromboplastin Time 77.5 SECONDS (23.9-36.7)
[2022-12-25] MEDS: heparin 5,000 unit/mL INJ 1 mL IV (20:49)
[2022-12-25] MEDS: sucralfate 1 gm Tablet PO (23:44)
[2022-12-26] VITALS (13 sets, daily range): BP systolic 132–172; BP diastolic 52–77; PULSE 73–88; RESP 16–30; TEMP 36.6–37.7; O2SAT 94–99
[2022-12-26] MEDS: cefTRIAXone 1,000 MG in sodium chloride 0.9% (plus) 50 ML 100 MG IV (01:44)
[2022-12-26] MEDS: azithromycin 500 MG in sodium chloride 0.9% 250 ML 250 MG IV (02:23)
[2022-12-26 03:17] LABS: Basophils # 0.1 10^3/uL (0.0-0.1); Basophils % 0.6 %; Eosinophils # 0.2 10^3/uL (0.0-0.8); Eosinophils % 2.9 %; Hematocrit 30.3 % (37.0-47.0); Hemoglobin 8.8 g/dL (11.5-15.3); Lymphocytes # 1.2 10^3/uL (0.8-4.8); Lymphocytes % 15.5 %; Mean Corpuscular Hemoglobin 28.3 pg (28.0-34.0); Mean Corpuscular Volume 97.4 fl (81-99); Mean Platelet Volume 9.4 fL (7.4-10.4); Monocytes # 0.6 10^3/uL (0.2-0.9); Monocytes % 7.7 %; Neutrophils # 5.42 10^3/uL (1.8-7.7); Neutrophils % 69.5 %; Nucleated Red Blood Cells % 0 %; Platelet Count 196 10^3/cmm (130-400); Red Blood Count 3.11 10^6/uL (4.1-5.3); Red Cell Distribution Width 14.8 % (12.1-15.1); White Blood Count 7.8 10^3/uL (4.0-10.0)
[2022-12-26 03:40] LABS: Anion Gap 9.8 (5-19); Blood Urea Nitrogen 13 mg/dL (8-23); Calcium 8.7 mg/dL (8.5-10.5); Carbon Dioxide 31 mmol/L (22-29); Chloride 104 mmol/L (98-107); Glucose 125 mg/dL (65-115); Osmolality Calculated 294 mOsm/kg (285-295); Potassium 3.8 mmol/L (3.5-5.1); Sodium 141 mmol/L (136-145)
[2022-12-26 03:44] LABS: INR 1.31 (0.8-1.2)
[2022-12-26] MEDS: ipratropium 0.5 mg/2.5 mL Neb INHALATION ×4 (03:44→19:54)
[2022-12-26] MEDS: levalbuterol 0.63 mg/3 mL Neb INHALATION ×4 (03:44→19:54)
[2022-12-26] MEDS: levothyroxine 50 mcg Tablet PO (05:34)
[2022-12-26 07:52] LABS: SARS Covid-2 Antigen negative (Negative)
[2022-12-26] MEDS: pantoprazole 40 mg SDV IVP ×2 (07:55→19:47)
[2022-12-26] MEDS: isosorbide mononitrate ER 30 mg Tablet PO (07:55)
[2022-12-26] MEDS: budesonide 0.5 mg/2 mL Neb INHALATION ×2 (08:08→19:54)
--- NOTE | 2022-12-26 10:27 | PC.NURSE ---
pt noted to be lethargic this morning upon assessment, RR 38 at that time, pt o2 sat 93% 3L. diminished lung sounds bilaterally. Temi RT notified, pt placed on bipap at that time. Dr. Fox notified, no new orders received. Pt resting in bed at this time, 3L NC on, at bedside. Pt responding to verbal cues and to touch but will not open eyes and will not take medications or drink anything at this time. Dr. Fox notified of non-admin medications
--- NOTE | 2022-12-26 12:35 | PC.CHAP ---
Pastoral Care Encounter/Spiritual Assessment Type of Contact [] Declined manuscript reader visit [] Patient/Family/Request visit [] Outpatient visit [] Follow-up visit [] Physician referral [] Code/Alert [x] Routine visit [] Staff referral [] Actively dying [] Patient sleeping [] Family support [] [] Out of room [] Palliative care [] [] Receiving care in room [] Pre-surgical visit [] Trauma [] Long length of stay [] ICU visit [] Other: Relational/Emotional Strength [] Patient feels connected with others/family/visitors/staff [] Distress [] Loneliness/isolation [] Abandonment Spirituality of Patient [] Person of Vivian [] Attends Nondenominational of their Vivian [x] Believes in Prayer [] Reads Bible or Buddhism materials [] There are Spiritual issues to be addressed Crime Victim Specialist Interventions [x] Prayer [] Active listening [] Non-anxious presence [] Spiritual/emotional support [] Crisis/trauma care [] Spiritual counseling [] Bereavement support [] Provided bereavement packet [] Provided Bible/devotional materials [x] Provided toy/stuffed animal, coloring book to patient or family member [] Provided Communion [] Anointing/[place] [] Salvation [x] Completed spiritual assessment [] Other: Impact on Illness or Injury [] Angry [] Fearful [] Anxious [] Often cries [] Exhaustion [] Unable to work [] Unable to attend amish [] Unable to walk/stand [] Unable to read [] Unable to drive [] Unable to eat/drink [] Unable to sleep [] Unable to be with family [] Patient intubated [] Other: Summary Time spent with patient
--- NOTE | 2022-12-26 12:47 | PC.OT ---
OT EVALUATION ATTEMPTED. PATIENT UNABLE TO MAINTAIN ALERTNESS TO PARTICIPATE IN THERAPY. WILL ATTEMPT AGAIN AT A LATER TIME.
[2022-12-26] MEDS: warfarin 5 mg Tablet PO (14:41)
--- NOTE | 2022-12-26 16:20 | XRR_ITS ---
PROCEDURE INFORMATION: Exam: XR Chest Exam date and time: 12/26/2022 4:28 PM Age: 82 years old Clinical indication: Other: Resp distress TECHNIQUE: Imaging protocol: Radiologic exam of the chest. Views: 1 view. COMPARISON: CT chest abdpel [id number] 12/22/2022 10:22 AM FINDINGS: Lungs: Diffuse increased pulmonary markings or vascularity/mild interstitial edema noted within the lungs. No focal consolidation. Pleural spaces: Unremarkable. No pleural effusion. No pneumothorax. Heart/Mediastinum: Postsurgical changes of previous mitral valve replacement. Cardiac silhouette is mildly enlarged. Vasculature: Arteriosclerosis of the thoracic aorta. Bones/joints: Unremarkable. Other findings: Comparison with prior chest radiograph December 22, 2022. XR/XR chest 1V portable [id number] IMPRESSION: Single-view chest with findings suggestive of mild CHF appearance, for follow-up.
--- NOTE | 2022-12-26 16:31 | P.PN_ITS ---
Subjective Subjective: Today she has been lethargic, not eating well. was able to get her to drink some water. She was started on BiPAP. With loud voice and sternal rub wakes up to say she is not in pain. Falls right back asleep. Vitals/I&O/Wt Last Vital Signs Temp 99.8 F H 12/26/22 16:00 Pulse 74 12/26/22 16:00 Resp 22 H 12/26/22 16:00 BP 144/52 12/26/22 16:00 Pulse Ox 94 12/26/22 16:00 O2 Del Method 12/26/22 16:00 O2 Flow Rate 3 12/26/22 14:00 FiO2 32 12/26/22 08:13 12/26/22 12/26/22 12/26/22 06:59 14:59 22:59 Intake Total 300 / 998.784 0 / 0 Output Total 800 / 800 Balance -500 / 198.784 0 / 0 Weight last 48 hrs Weight 70.942 kg Weight 71.214 kg Physical Exam Narrative: Accompanied by . Const: GENERAL APPEARANCE: cooperative and lethargic OCTAVIO ENTATION/CONSCIOUSNESS: Yes lethargic HENMT: COMMON NORMALS: oropharynx normal Neck/C-Spine: COMMON NORMALS: no JVD OTHER: No nuchal rigidity Resp: COMMON NORMALS: clear to auscultation bilaterally AUSCULTATION: clear to auscultation bilaterally OTHER: Working with BiPAP Cardio: COMMON NORMALS: no JVD, regular rhythm, S1 normal heart sound present, S2 normal heart sound present and No murmurs present (Cardio) RHYTHM: regular rhythm HEART SOUNDS: S1 normal heart sound present and S2 normal heart sound present GI: COMMON NORMALS: Normal to inspection, nondistended, normoactive bowel sounds present, Soft to palpation and non-tender PALPATION: Yes Soft to palpation Extremity: COMMON NORMALS: no joint enlargement and no pedal edema Neuro: COMMON NORMALS: moves all extremities SENSORIUM/ORIENTATION: Yes lethargic Skin: COMMON NORMALS: no rashes or lesions noted GENERAL SKIN EXAM: no rash es or lesions noted Urinary Catheter Management: Lam: Cath Placed During This Visit: yes Reason for Continuing Indwelling Catheter: Other Urinary Catheter Date of Insertion: 12/22/22 Urinary Catheter Time of Insertion: 11:15 Data 12/26/22 02:53 12/26/22 02:53 A&P Assessment and plan (1) Acute encephalopathy: Again worsened encephalopathy. Lethargic, not eating well today. Reportedly did not have BiPAP on last night. BiPAP started today. Currently still lethargic. We will request ABG. We will repeat BMP and reassess sodium. Chest x-ray for assessment of pneumonia. With acute worsening of encephalopathy, on anticoagulation, will additionally reassess CT head. Most likely multifactorial etiology. Most likely in setting of infection. Pneumonia, and UTI Persistent stable hypercapnia. No acidosis on ABG. History had to be obtained from due to acute encephalopathy. (2) Acute and chronic respiratory failure with hypercapnia: Suspected engaging in respiratory failure with hypercapnia with acute metabolic encephalopathy with hypercapnia. Currently requiring BiPAP support. At risk of life-threatening deterioration in respiratory status, respiratory arrest. ABGs as above. Continuous pulse oximetry. N.p.o. for now. Oxygen supplementation keeping saturation over 88%. BiPAP nightly and as needed. Ipratropium and Xopenex every 6 hour, budesonide twice daily. (3) Community acquired pneumonia: Reassess chest x-ray. Continue ceftriaxone, azithromycin. CT chest shows patchy infiltrate right upper lobe, right hilum For now continue on IV ceftriaxone and azithromycin Possible aspiration, aspiration precautions, speech therapy eval (4) CHF (congestive heart failure): Clinically does not appear fluid overloaded at the moment. Repeat chest x-ray. Previously with contraction alkalosis. BMP reviewed. Bicarb 31. BUN 13, creatinine 0.6. Currently not on diuretic. Hold off for reassessment. Underwent diuresis. Strict HENRIETTA charting, daily weights. Lam catheterization. Fluid restriction up to 1500 cc. Qualifiers: Heart failure type: diastolic Heart failure chronicity: acute on chronic Qualified Code(s): I50.33 - Acute on chronic diastolic (congestive) heart failure (5) Elevated INR: On chronic Coumadin for mechanical mitral valve and atrial fibrillation. Target INR 2.5-3. Currently more than 8 with signs of possible new left hematoma and anemia. Received 2 doses of vitamin K, 1 dose FFP INR 9.8, now 1.2 to Monitor INR INR reversed due to acute anemia, left hip hematoma, now resolved (6) Hip hematoma, left: CBC reviewed. Hemoglobin is 8.8. - bruising of the left hip, but denies any pain -CT: Large intramuscular hematoma involving the LEFT gluteus medius with mixed attenuation blood products. Hematoma measures 9.5 x 5.4 x 12.9 CM. Associated subcutaneous soft tissue edema. Visualized LEFT femoral neck appears -Monitor (7) Acute on chronic anemia: Hemoglobin 8.8. Status post 2 PRBC Has received IV IV iron supplementation. (8) Chronic anticoagulation: Continue heparin drip, warfarin. Follow-up INR requested. Requires close monitoring of PTTs while on heparin drip for risk of bleeding with starting warfarin concurrently. Subtherapeutic PTT with on-call office - Has a mechanical mitral valve in place -If her hemoglobin can tolerate, and her hematoma does not enlarge then we can continue Coumadin with L[facility]ox bridge at [facility] -However if her hemoglobin drops or hematoma large we might have to discontinue anticoagulation for some period of time until her hemoglobin and her hematoma can tolerate it (9) H/O mitral valve replacement with mechanical valve: (10) COPD (chronic obstructive pulmonary disease): Qualifiers: COPD type: chronic bronchitis Chronic bronchitis type: unspecified Qualified Code(s): J42 - Unspecified chronic bronchitis (11) Afib: As above Plan Analgesia: Tylenol as needed. Will avoid narcotics. Glycemic control: Not needed. A1c within normal limits Nutrition: Clear liquid diet as able. Patient is at a risk of aspiration given her mentation CODE STATUS: DNR/DNI. PUD prophylaxis: Protonix IV twice daily. DVT prophylaxis: SCDs for DVT, no medical prophylaxis given supratherapeutic INR, left hip hematoma and anemia Discharge planning: Back to [facility] once medically stable. Admit to [facility] with telemetry. Attestations Medical Necessity Statement*: Continue admission for assessment and management of acute encephalopathy, respiratory failure, requiring BiPAP support treatment and reassessment of pneumonia, bridging to therapeutic anticoagulation with heparin drip with turning off for hematoma and risk of bleeding in the setting of mechanical mitral valve. Diagnoses Acute encephalopathy G93.40 Acute and chronic respiratory failure with hypercapnia J96.22 Community acquired pneumonia J18.9 CHF (congestive heart failure) I50.33 Heart failure type: diastolic Heart failure chronicity: acute on chronic Elevated INR R79.1 Hip hematoma, left S70.02XA Acute on chronic anemia D64.9 Chronic anticoagulation Z79.01 H/O mitral valve replacement with mechanical valve Z95.2 COPD (chronic obstructive pulmonary disease) J42 COPD type: chronic bronchitis Chronic bronchitis type: unspecified Afib I48.91
--- NOTE | 2022-12-26 16:36 | CTR_ITS ---
PROCEDURE INFORMATION: Exam: CT Head Without Contrast Exam date and time: 12/26/2022 5:09 PM Age: 82 years old Clinical indication: Other: Lethargy; Additional info: Lethargy, anticoagulation TECHNIQUE: Imaging protocol: Computed tomography of the head without contrast. Radiation optimization: All CT scans at this facility use at least one of these dose optimization techniques: automated exposure control; mA and/or kV adjustment per patient size (includes targeted exams where dose is matched to clinical indication); or iterative reconstruction. REPORTING DATA: Count of CT and Cardiac NM exams in prior 12 months: This patient has received 6 known CTs and 0 known cardiac nuclear medicine studies in the 12 months prior to the current study. COMPARISON: CT head wo con* [id number] 12/22/2022 10:19 AM RADIATION DOSE METRICS: Total DLP (mGy-cm): 1146.68 FINDINGS: Brain: Mild atrophic or involutional change for age, including mild periventricular chronic small-vessel disease change. No intracranial hemorrhage or hematoma is seen. No mass effect or shift of midline structures. No findings to indicate large vessel ischemic change or infarct. Cerebral ventricles: No ventriculomegaly. Paranasal sinuses: Chronic mucosal sinus disease within the sphenoid sinuses and left mastoid sinuses. Mastoid air cells: See Paranasal sinuses finding. Bones/joints: Unremarkable. No acute fracture. Soft tissues: Unremarkable. CT/CT head wo con* [id number] IMPRESSION: No acute intracranial abnormality, without significant change from prior exam.
[2022-12-26 16:55] LABS: ABG PH Result 7.35 (7.35-7.45); Arterial Blood Gas Hematocrit 24.6 % (37-47); Base Excess ABG 7.2 mmol/L (-2.0-2.0); Blood Gas Allen Test Pos; Blood Gas Operator Identificat glc; Blood Gas Sample Site Radial, right; Blood Gas Sample Type Arterial; Oxygen Device BIPAP; PO2 ABG 73.4 mmHg (80.0-100.0)
[2022-12-26 16:56] LABS: ABG PCO2 61.9 mmHg (35-45)
[2022-12-26 17:04] LABS: Partial Thromboplastin Time 67.4 SECONDS (23.9-36.7)
[2022-12-26 17:09] LABS: Anion Gap 8.8 (5-19); Blood Urea Nitrogen 12 mg/dL (8-23); Calcium 8.7 mg/dL (8.5-10.5); Carbon Dioxide 29 mmol/L (22-29); Chloride 105 mmol/L (98-107); Creatinine Clr Calc Pharmacy 50.3147; Glucose 100 mg/dL (65-115); Osmolality Calculated 288 mOsm/kg (285-295); Potassium 3.8 mmol/L (3.5-5.1); Sodium 139 mmol/L (136-145)
[2022-12-27] VITALS (18 sets, daily range): BP systolic 146–169; BP diastolic 52–78; PULSE 67–96; RESP 14–32; TEMP 36.4–37.1; O2SAT 95–100
[2022-12-27 01:06] LABS: Basophils % 0.5 %; Eosinophils # 0.1 10^3/uL (0.0-0.8); Eosinophils % 2.2 %; Hematocrit 28.4 % (37.0-47.0); Hemoglobin 8.4 g/dL (11.5-15.3); Lymphocytes # 0.7 10^3/uL (0.8-4.8); Lymphocytes % 10.4 %; Mean Corpuscular HGB Conc 29.6 g/dL (30.0-36.0); Mean Corpuscular Hemoglobin 29.2 pg (28.0-34.0); Mean Corpuscular Volume 98.6 fl (81-99); Mean Platelet Volume 9.8 fL (7.4-10.4); Monocytes # 0.5 10^3/uL (0.2-0.9); Monocytes % 7.1 %; Neutrophils # 4.82 10^3/uL (1.8-7.7); Nucleated Red Blood Cells % 0 %; Platelet Count 179 10^3/cmm (130-400); Red Blood Count 2.88 10^6/uL (4.1-5.3); Red Cell Distribution Width 15.2 % (12.1-15.1); White Blood Count 6.3 10^3/uL (4.0-10.0)
[2022-12-27 01:19] LABS: Partial Thromboplastin Time 43.2 SECONDS (23.9-36.7)
[2022-12-27 01:26] LABS: Blood Urea Nitrogen 12 mg/dL (8-23); Calcium 8.6 mg/dL (8.5-10.5); Carbon Dioxide 30 mmol/L (22-29); Chloride 106 mmol/L (98-107); Creatinine Clr Calc Pharmacy 50.3147; Glucose 89 mg/dL (65-115); Osmolality Calculated 295 mOsm/kg (285-295); Sodium 143 mmol/L (136-145)
[2022-12-27 01:30] LABS: INR 1.44 (0.8-1.2)
[2022-12-27 01:34] LABS: Anion Gap 10.7 (5-19); Potassium 3.7 mmol/L (3.5-5.1)
[2022-12-27] MEDS: heparin drip 25,000 UNIT/500 ML PREMIX 19 UNIT IV (02:14)
[2022-12-27] MEDS: cefTRIAXone 1,000 MG in sodium chloride 0.9% (plus) 50 ML 100 MG IV (02:15)
[2022-12-27] MEDS: azithromycin 500 MG in sodium chloride 0.9% 250 ML 250 MG IV (03:00)
[2022-12-27] MEDS: ipratropium 0.5 mg/2.5 mL Neb INHALATION ×4 (03:18→21:35)
[2022-12-27] MEDS: levalbuterol 0.63 mg/3 mL Neb INHALATION ×4 (03:18→21:35)
[2022-12-27] MEDS: budesonide 0.5 mg/2 mL Neb INHALATION ×2 (07:42→21:36)
[2022-12-27] MEDS: pantoprazole 40 mg SDV IVP ×2 (09:52→21:01)
[2022-12-27] MEDS: warfarin 5 mg Tablet PO (15:09)
[2022-12-27 15:37] LABS: Partial Thromboplastin Time 59.6 SECONDS (23.9-36.7)
--- NOTE | 2022-12-27 16:15 | PC.SOCIAL ---
IMM Update pg 2 of IMM updated and reviewed w/ patient's granddaughter who is @ bedside. Copy provided and copy in chart dated, and initialed.
--- NOTE | 2022-12-27 20:34 | P.PN_ITS ---
Subjective Subjective: She is slightly more alert, during my visit she is still somnolent, was put back on BiPAP in the afternoon. Later in the afternoon noted to be much better, more alert, ready to resume some oral intake/trial of clears. Attempt was to be made for her to sit up in the chair as well. Daughter and granddaughter state that she has been having memory issues building up for some time. Sometimes forgetting some fairly important details like her daughter having moved to a different location years ago. Vitals/I&O/Wt Last Vital Signs Temp 97.8 F 12/27/22 19:27 Pulse 68 12/27/22 19:27 Resp 14 12/27/22 19:27 BP 155/62 12/27/22 19:27 Pulse Ox 100 12/27/22 19:27 O2 Del Method 12/27/22 19:27 O2 Flow Rate 3 12/27/22 19:27 FiO2 32 12/27/22 13:26 12/27/22 12/27/22 12/27/22 06:59 14:59 22:59 Intake Total 300 / 800 128.567 / 128.567 Output Total 250 / 700 Balance 50 / 100 128.567 / 128.567 Weight last 48 hrs Weight 70.987 kg Weight 70.942 kg Physical Exam Narrative: Accompanied by daughter and granddaughter Const: GENERAL APPEARANCE: cooperative and lethargic ORIENTATION/CONSCIOUSNESS: Yes lethargic OTHER: Opens eyes to voice HENMT: COMMON NORMALS: oropharynx normal Neck/C-Spine: COMMON NORMALS: no JVD OTHER: No nuchal rigidity Resp: COMMON NORMALS: clear to auscultation bilaterally AUSCULTATION: clear to auscultation bilaterally OTHER: Working with BiPAP Cardio: COMMON NORMALS: no JVD, regular rhythm, S1 normal heart sound present, S2 normal heart sound present and No murmurs present (Cardio) RHYTHM: regular rhythm HEART SOUNDS: S1 normal heart sound present and S2 normal heart sound present GI: COMMON NORMALS: Normal to inspection, nondistended, normoactive bowel sounds present, Soft to palpation and non-tender PALPATION: Yes Soft to palpation Extremity: COMMON NORMALS: no joint enlargement and no pedal edema Neuro: COMMON NORMALS: moves all extremities SENSORIUM/ORIENTATION: Yes lethargic Skin: COMMON NORMALS: no rashes or lesions noted GENERAL SKIN EXAM: no rashes or lesions noted Urinary Catheter Management: Lam: Cath Placed During This Visit: yes Reason for Continuing Indwelling Catheter: Acute Urinary Retention or Obstruction Urinary Catheter Date of Insertion: 12/22/22 Urinary Catheter Time of Insertion: 11:15 Data 12/27/22 00:50 12/27/22 00:50 Micro: Microbiology 12/22/22 02:46 Blood Culture - Final Blood NO GROWTH AFTER 5 DAYS 12/22/22 02:55 Blood Culture - Final Blood NO GROWTH AFTER 5 DAYS A&P Assessment and plan (1) Acute encephalopathy: Sliding Giurgius morning, then again worsening condition, placed on BiPAP again, subsequently with significant improvement. Trial of clear liquids. Acute metabolic encephalopathy with hypercapnia. He definitely needs BiPAP anytime she is sleeping. Additionally appears may have underlying dementia possibly predisposing her to delirium. Possible minimally conscious state and dysregulated sleep waking cycle. After she recovers from acute illness discussed with her family would benefit from further assessment by neurology for consideration of dementia. Family reports no history of hallucination as well, that could be related to carbidopa levodopa. This was sometime before developing acute illnesses, could have been delirium secondary to pneumonia, UTI. This history obtained from family. She is unable to provide history currently. Reviewed BMP, sodium, as she has been made n.p.o. today due to risk of aspiration, will recheck BMP again in the morning due to risk of electrolyte disturbance, requested. Appreciate CT head results, without acute abnormality. Appreciate chest x-ray results, suggestive appearance of mild CHF. Most likely multifactorial etiology. Most likely in setting of infection. Pneumonia, and UTI ABG appreciated with respiratory acidosis and hypercapnia. (2) Acute and chronic respiratory failure with hypercapnia: Suspected engaging in respiratory failure with hypercapnia with acute metabolic encephalopathy with hypercapnia. Currently requiring BiPAP support. At risk of life-threatening deterioration in respiratory status, respiratory arrest. ABGs as above. Continuous pulse oximetry. N.p.o. for now. Later in the day trial of clear liquids. Oxygen supplementation keeping saturation over 88%. BiPAP nightly and as needed. Ipratropium and Xopenex every 6 hour, budesonide twice daily. Inhaled steroids for now, consideration of systemic steroids, although concerned that may further worsen her mental status. (3) Community acquired pneumonia: Chest x-ray results appreciated. For now empirically continue ceftriaxone, azithromycin. CT chest shows patchy infiltrate right upper lobe, right hilum Possible aspiration, aspiration precautions, speech therapy reeval once she is more awake (4) CHF (congestive heart failure): Chest x-ray appreciated, appears to have findings of CHF again. Have not yet restarted diuretics so far, although considered, but has had very limited oral intake. Increase oral intake improves, restart diuretic. Follow-up chemistry for electrolytes and renal function in the morning reque sted. Underwent diuresis. Strict HENRIETTA charting, daily weights. Lam catheterization. Fluid restriction up to 1500 cc. Qualifiers: Heart failure type: diastolic Heart failure chronicity: acute on chronic Qualified Code(s): I50.33 - Acute on chronic diastolic (congestive) heart failure (5) Elevated INR: On chronic Coumadin for mechanical mitral valve and atrial fibrillation. Target INR 2.5-3. Currently more than 8 with signs of possible new left hematoma and anemia. Received 2 doses of vitamin K, 1 dose FFP INR 9.8, now 1.2 to Monitor INR INR reversed due to acute anemia, left hip hematoma, now resolved (6) Hip hematoma, left: CBC reviewed. Hemoglobin 8.4. Recheck requested. Continues on warfarin, although INR subtherapeutic. Had to miss medications due to encephalopathy and risk of aspiration. Continues on heparin drip. - bruising of the left hip, but denies any pain -CT: Large intramuscular hematoma involving the LEFT gluteus medius with mixed attenuation blood products. Hematoma measures 9.5 x 5.4 x 12.9 CM. Associated subcutaneous soft tissue edema. Visualized LEFT femoral neck appears -Monitor (7) Acute on chronic anemia: Hemoglobin 8.8. Status post 2 PRBC Has received IV IV iron supplementation. (8) Chronic anticoagulation: Continue heparin drip, warfarin. Follow-up INR appreciated, 1.44. Requested follow-up. Requires close monitoring of PTTs while on heparin drip for risk of bleeding with starting warfarin concurrently. Subtherapeutic PTT with on-call office - Has a mechanical mitral valve in place -If her hemoglobin can tolerate, and her hematoma does not enlarge then we can continue Coumadin with Lovenox bridge at [facility] -However if her hemoglobin drops or hematoma large we might have to discontinue anticoagulation for some period of time until her hemoglobin and her hematoma can tolerate it (9) H/O mitral valve replacement with mechanical valve: (10) COPD (chronic obstructive pulmonary disease): Qualifiers: COPD type: chronic bronchitis Chronic bronchitis type: unspecified Qualified Code(s): J42 - Unspecified chronic bronchitis (11) Afib: As above Plan Analgesia: Tylenol as needed. Will avoid narcotics. Glycemic control: Not needed. A1c within normal limits Nutrition: Clear liquid diet as able. Patient is at a risk of aspiration given her mentation CODE STATUS: DNR/DNI. PUD prophylaxis: Protonix IV twice daily. DVT prophylaxis: SCDs for DVT, no medical prophylaxis given supratherapeutic INR, left hip hematoma and anemia Discharge planning: Back to [facility] once medically stable. Admit to [facility] with telemetry. Attestations Medical Necessity Statement*: Continue admission for assessment management of acute encephalopathy, reinitiation of oral intake once safe, continued anticoagulation with heparin drip due to mechanical mitral valve and risk of thrombosis, close monitoring of anticoagulation due to hematoma, with reinitiation of warfarin monitoring of INR as well, additional medical problems as above. Diagnoses Acute encephalopathy G93.40 Acute and chronic respiratory failure with hypercapnia J96.22 Community acquired pneumonia J18.9 CHF (congestive heart failure) I50.33 Heart failure type: diastolic Heart failure chronicity: acute on chronic Elevated INR R79.1 Hip hematoma, left S70.02XA Acute on chronic anemia D64.9 Chronic anticoagulation Z79.01 H/O mitral valve replacement with mechanical valve Z95.2 COPD (chronic obstructive pulmonary disease) J42 COPD type: chronic bronchitis Chronic bronchitis type: unspecified Afib I48.91
[2022-12-27] MEDS: atorvastatin 40 mg Tablet PO (21:02)
[2022-12-27 21:57] LABS: Partial Thromboplastin Time 81.8 SECONDS (23.9-36.7)
[2022-12-27] MEDS: sucralfate 1 gm Tablet PO (22:50)
[2022-12-28] VITALS (21 sets, daily range): BP systolic 119–151; BP diastolic 57–87; PULSE 64–108; RESP 14–26; TEMP 36.5–36.9; O2SAT 94–100
[2022-12-28] MEDS: cefTRIAXone 1,000 MG in sodium chloride 0.9% (plus) 50 ML 100 MG IV (02:09)
[2022-12-28] MEDS: ipratropium 0.5 mg/2.5 mL Neb INHALATION ×4 (02:54→20:30)
[2022-12-28] MEDS: levalbuterol 0.63 mg/3 mL Neb INHALATION ×4 (02:54→20:30)
[2022-12-28] MEDS: azithromycin 500 MG in sodium chloride 0.9% 250 ML 250 MG IV (03:14)
[2022-12-28 03:20] LABS: Basophils % 0.4 %; Eosinophils # 0.2 10^3/uL (0.0-0.8); Eosinophils % 2.7 %; Hematocrit 25.7 % (37.0-47.0); Hemoglobin 7.7 g/dL (11.5-15.3); Lymphocytes # 0.8 10^3/uL (0.8-4.8); Lymphocytes % 14.7 %; Mean Corpuscular Hemoglobin 29.1 pg (28.0-34.0); Mean Platelet Volume 9.5 fL (7.4-10.4); Monocytes # 0.4 10^3/uL (0.2-0.9); Monocytes % 6.9 %; Neutrophils # 4.05 10^3/uL (1.8-7.7); Neutrophils % 73.7 %; Nucleated Red Blood Cells % 0 %; Platelet Count 189 10^3/cmm (130-400); Red Blood Count 2.65 10^6/uL (4.1-5.3); Red Cell Distribution Width 15.1 % (12.1-15.1); White Blood Count 5.5 10^3/uL (4.0-10.0)
[2022-12-28 03:43] LABS: Anion Gap 11.8 (5-19); Blood Urea Nitrogen 14 mg/dL (8-23); Calcium 8.6 mg/dL (8.5-10.5); Carbon Dioxide 30 mmol/L (22-29); Chloride 105 mmol/L (98-107); Glucose 79 mg/dL (65-115); Osmolality Calculated 295 mOsm/kg (285-295); Partial Thromboplastin Time 83.6 SECONDS (23.9-36.7); Potassium 3.8 mmol/L (3.5-5.1); Sodium 143 mmol/L (136-145)
[2022-12-28 03:51] LABS: INR 1.95 (0.8-1.2)
[2022-12-28] MEDS: levothyroxine 50 mcg Tablet PO (05:48)
[2022-12-28] MEDS: budesonide 0.5 mg/2 mL Neb INHALATION ×2 (08:21→20:30)
[2022-12-28] MEDS: heparin drip 25,000 UNIT/500 ML PREMIX 18 UNIT IV (08:33)
[2022-12-28] MEDS: citalopram 20 mg Tablet 10 MG PO (08:46)
[2022-12-28] MEDS: potassium chloride ER 20 mEq Tablet PO (08:46)
[2022-12-28] MEDS: isosorbide mononitrate ER 30 mg Tablet PO (08:47)
[2022-12-28] MEDS: pantoprazole 40 mg SDV IVP ×2 (08:48→20:04)
--- NOTE | 2022-12-28 09:51 | PC.NURSE ---
Physician at bedside okay to hold INR 1 hour to draw with post transfusion H&H.
[2022-12-28] MEDS: sucralfate 1 gm Tablet PO ×2 (10:35→22:38)
[2022-12-28 11:42] LABS: Hematocrit 30.5 % (37.0-47.0); Hemoglobin 8.9 g/dL (11.5-15.3)
[2022-12-28 11:58] LABS: Partial Thromboplastin Time 51.2 SECONDS (23.9-36.7)
[2022-12-28] MEDS: warfarin 2 mg Tablet PO (14:33)
[2022-12-28] MEDS: warfarin 2.5 mg Tablet PO (14:34)
[2022-12-28] MEDS: docusate sodium 100 mg Capsule PO (17:03)
[2022-12-28] MEDS: atorvastatin 40 mg Tablet PO (20:04)
[2022-12-28 20:10] LABS: Partial Thromboplastin Time 103.2 SECONDS (23.9-36.7)
--- NOTE | 2022-12-28 20:19 | PM.PN ---
Subjective Subjective: She is more awake today, cooperative, interactive. States she is having pain in both her legs and knees. Vitals/I&O/Wt Last Vital Signs Temp 98.3 F 12/28/22 19:26 Pulse 76 12/28/22 19:26 Resp 16 12/28/22 19:26 BP 136/69 12/28/22 19:26 Pulse Ox 97 12/28/22 19:26 O2 Del Method 12/28/22 19:26 O2 Flow Rate 0.5 12/28/22 19:26 FiO2 32 12/28/22 12:09 12/28/22 12/28/22 12/28/22 06:59 14:59 22:59 Intake Total 410.100 / 800.000 423 / 423 240 / 663 Output Total 150 / 550 0 / 0 Balance 260.100 / 250.000 423 / 423 240 / 663 Weight last 48 hrs Weight 74.162 kg Weight 70.987 kg Physical Exam Narrative: Accompanied by at bedside whom she recognizes. Const: GENERAL APPEARANCE: cooperative ORIENTATION/CONSCIOUSNESS: Yes awake HENMT: COMMON NORMALS: oropharynx normal Neck/C-Spine: COMMON NORMALS: no JVD OTHER: No nuchal rigidity Resp: COMMON NORMALS: clear to auscultation bilaterally AUSCULTATION: clear to auscultation bilaterally OTHER: NC Cardio: COMMON NORMALS: no JVD, regular rhythm, S1 normal heart sound present, S2 normal heart sound present and No murmurs present (Cardio) RHYTHM: regular rhythm HEART SOUNDS: S1 normal heart sound present and S2 normal heart sound present GI: COMMON NORMALS: Normal to inspection, nondistended, normoactive bowel sounds present, Soft to palpation and non-tender PALPATION: Yes Soft to palpation Extremity: COMMON NORMALS: no joint enlargement and no pedal edema OTHER: Stasis dermatitis chronic changes noted on lower extremities bilaterally. Bruising on the left knee. Neuro: COMMON NORMALS: moves all extremities Skin: COMMON NORMALS: no rashes or lesions noted GENERAL SKIN EXAM: no rashes or lesions noted Urinary Catheter Management: Lam: Cath Placed During This Visit: yes Reason for Continuing Indwelling Catheter: Other Urinary Catheter Date of Insertion: 12/22/22 Urinary Catheter Time of Insertion: 11:15 Data 12/28/22 11:20 12/28/22 03:10 A&P Assessment and plan (1) Acute encephalopathy: Today encephalopathy is doing better with BiPAP ventilation. Came off to nasal cannula. Discussed with nursing staff to continue to decrease oxygen support, possibly come off oxygen if tolerating so as to decrease propensity for CO2 reaccumulation. Mobilize today up to chair, is supposed to work with physical therapy as well. Continue to reorient. After she recovers from acute illness discussed with her family would benefit from further assessment by neurology for consideration of dementia. Family reports no history of hallucination as well, that could be related to carbidopa levodopa. This was sometime before developing acute illnesses, could have been delirium secondary to pneumonia, UTI. This history obtained from family. She is unable to provide history currently. Reviewed BMP, sodium, as she has been made n.p.o. today due to risk of aspiration, will recheck BMP again in the morning due to risk of electrolyte disturbance, requested. Appreciate CT head results, without acute abnormality. Appreciate chest x-ray results, suggestive appearance of mild CHF. Most likely multifactorial etiology. Most likely in setting of infection. Pneumonia, and UTI ABG appreciated with respiratory acidosis and hypercapnia. (2) Acute on chronic anemia: This morning hemoglobin with acute decrease down to 7.7. Received 1 unit RBC transfusion. Follow-up hemoglobin reviewed, 8.9. Reviewing INR it is up to 1.95. Continues on heparin drip as well. Therapeutic target for INR is 2.5-3.5 which she is approaching. May be able to discontinue bridging here shortly. Hopefully blood counts do hold. Needs close monitoring of blood counts due to risk of bleeding with anticoagulation, bridging for therapeutic continuation for mechanical valve. Requested follow-up blood count. Has received IV IV iron supplementation. At risk of severe life-threatening bleeding and/or clotting of mechanical valve. (3) Acute and chronic respiratory failure with hypercapnia: Respiratory failure with hypercapnia with acute metabolic encephalopathy with hypercapnia. De-escalate oxygen support to help reduce hypercapnic encephalopathy episodes. Continuous pulse oximetry while de-escalating oxygen due to risk of respiratory failure. Trial of oral diet. Ipratropium and Xopenex every 6 hour, budesonide twice daily. Inhaled steroids for now, consideration of systemic steroids, although concerned that may further worsen her mental status. (4) Community acquired pneumonia: Continue ceftriaxone, azithromycin. CT chest shows patchy infiltrate right upper lobe, right hilum Possible aspiration, aspiration precautions, speech therapy reeval once she is more awake (5) CHF (congestive heart failure): Chest x-ray appreciated, appears to have findings of CHF again. Have not yet restarted diuretics so far, although considered, but has had very limited oral intake. Increase oral intake improves, restart diuretic. Follow-up chemistry for electrolytes and renal function in the morning requested. Underwent diuresis. Strict H[place] charting, daily weights. Lam catheterization. Fluid restriction up to 1500 cc. Qualifiers: Heart failure type: diastolic Heart failure chronicity: acute on chronic Qualified Code(s): I50.33 - Acute on chronic diastolic (congestive) heart failure (6) Elevated INR: On chronic Coumadin for mechanical mitral valve and atrial fibrillation. Target INR 2.5-3. Currently more than 8 with signs of possible new left hematoma and anemia. Received 2 doses of vitamin K, 1 dose FFP INR 9.8, now 1.2 to Monitor INR INR reversed due to acute anemia, left hip hematoma, now resolved (7) Hip hematoma, left: As above. - bruising of the left hip, but denies any pain -CT: Large intramuscular hematoma involving the LEFT gluteus medius with mixed attenuation blood products. Hematoma measures 9.5 x 5.4 x 12.9 CM. Associated subcutaneous soft tissue edema. Visualized LEFT femoral neck appears -Monitor (8) Chronic anticoagulation: INR getting closer to therapeutic on review as above. Continue heparin drip. Discussed with pharmacy. We are cutting down warfarin dose slightly to 4.5 today. Repeat INR. Follow-up PTTs. - Has a mechanical mitral valve in place -If her hemoglobin can tolerate, and her hematoma does not enlarge then we can continue Coumadin with Lovenox bridge at longterm -However if her hemoglobin drops or hematoma large we might have to discontinue anticoagulation for some period of time until her hemoglobin and her hematoma can tolerate it (9) H/O mitral valve replacement with mechanical valve: (10) COPD (chronic obstructive pulmonary disease): Qualifiers: COPD type: chronic bronchitis Chronic bronchitis type: unspecified Qualified Code(s): J42 - Unspecified chronic bronchitis (11) Afib: As above Plan Analgesia: Tylenol as needed. Will avoid narcotics. Glycemic control: Not needed. A1c within normal limits Nutrition: Clear liquid diet as able. Patient is at a risk of aspiration given her mentation CODE STATUS: DNR/DNI. PUD prophylaxis: Protonix IV twice daily. DVT prophylaxis: SCDs for DVT, no medical prophylaxis given supratherapeutic INR, left hip hematoma and anemia Discharge planning: Back to longterm once medically stable. Admit to [facility] with telemetry. Attestations Medical Necessity Statement*: Continue admission for management of acute encephalopathy, heparin bridging with resumption of therapeutic anticoagulation due to mechanical mitral valve with acute anemia, risk of bleeding. Coding Level of Care Code Acute Code for [facility] Fwd Diagnoses Acute encephalopathy G93.40 Acute on chronic anemia D64.9 Acute and chronic respiratory failure with hypercapnia J96.22 Community acquired pneumonia J18.9 CHF (congestive heart failure) I50.33 Heart failure type: diastolic Heart failure chronicity: acute on chronic Elevated INR R79.1 Hip hematoma, left S70.02XA Chronic anticoagulation Z79.01 H/O mitral valve replacement with mechanical valve Z95.2 COPD (chronic obstructive pulmonary disease) J42 COPD type: chronic bronchitis Chronic bronchitis type: unspecified Afib I48.91
[2022-12-29] VITALS (12 sets, daily range): BP systolic 132–155; BP diastolic 63–77; PULSE 60–82; RESP 16–33; TEMP 36.4–36.8; O2SAT 69–100
[2022-12-29] MEDS: ipratropium 0.5 mg/2.5 mL Neb INHALATION ×4 (01:23→20:48)
[2022-12-29] MEDS: levalbuterol 0.63 mg/3 mL Neb INHALATION ×4 (01:23→20:48)
[2022-12-29] MEDS: cefTRIAXone 1,000 MG in sodium chloride 0.9% (plus) 50 ML 100 MG IV (02:07)
[2022-12-29 03:14] LABS: Basophils % 0.5 %; Eosinophils # 0.1 10^3/uL (0.0-0.8); Eosinophils % 2.4 %; Hematocrit 28.7 % (37.0-47.0); Hemoglobin 8.9 g/dL (11.5-15.3); Lymphocytes # 0.8 10^3/uL (0.8-4.8); Lymphocytes % 14.3 %; Mean Corpuscular Hemoglobin 29.5 pg (28.0-34.0); Mean Platelet Volume 9.5 fL (7.4-10.4); Monocytes # 0.5 10^3/uL (0.2-0.9); Monocytes % 9.2 %; Neutrophils # 3.89 10^3/uL (1.8-7.7); Neutrophils % 71.2 %; Nucleated Red Blood Cells % 0 %; Platelet Count 177 10^3/cmm (130-400); Red Blood Count 3.02 10^6/uL (4.1-5.3); Red Cell Distribution Width 15.5 % (12.1-15.1); White Blood Count 5.5 10^3/uL (4.0-10.0)
[2022-12-29 03:41] LABS: Anion Gap 5.6 (5-19); Blood Urea Nitrogen 10 mg/dL (8-23); Calcium 8.4 mg/dL (8.5-10.5); Carbon Dioxide 35 mmol/L (22-29); Chloride 106 mmol/L (98-107); Glucose 103 mg/dL (65-115); Osmolality Calculated 295 mOsm/kg (285-295); Potassium 3.6 mmol/L (3.5-5.1); Sodium 143 mmol/L (136-145)
[2022-12-29 03:44] LABS: Partial Thromboplastin Time 80.2 SECONDS (23.9-36.7)
[2022-12-29] MEDS: levothyroxine 50 mcg Tablet PO (06:04)
[2022-12-29] MEDS: budesonide 0.5 mg/2 mL Neb INHALATION ×2 (07:32→20:47)
[2022-12-29] MEDS: isosorbide mononitrate ER 30 mg Tablet PO (10:26)
[2022-12-29] MEDS: potassium chloride ER 20 mEq Tablet PO (10:26)
[2022-12-29] MEDS: azithromycin 250 mg Tablet 500 MG PO (10:26)
[2022-12-29] MEDS: pantoprazole 40 mg SDV IVP ×2 (10:26→20:59)
[2022-12-29] MEDS: citalopram 20 mg Tablet 10 MG PO (10:27)
[2022-12-29] MEDS: docusate sodium 100 mg Capsule PO ×2 (10:27→17:45)
[2022-12-29 11:02] LABS: Partial Thromboplastin Time 70.9 SECONDS (23.9-36.7)
[2022-12-29 13:06] LABS: INR 2.15 (0.8-1.2)
[2022-12-29] MEDS: sucralfate 1 gm Tablet PO ×2 (13:11→23:44)
[2022-12-29] MEDS: warfarin 5 mg Tablet PO (14:32)
[2022-12-29 16:42] LABS: INR 2.31 (0.8-1.2)
[2022-12-29 18:03] LABS: Partial Thromboplastin Time 60.4 SECONDS (23.9-36.7)
--- NOTE | 2022-12-29 19:48 | P.PN_ITS ---
Subjective Subjective: Denies pain or discomfort. States breathing is comfortable. Oriented to place, not year. Vitals/I&O/Wt Last Vital Signs Temp 98.3 F 12/29/22 15:41 Pulse 67 12/29/22 15:41 Resp 16 12/29/22 13:34 BP 147/70 12/29/22 15:41 Pulse Ox 94 12/29/22 15:41 O2 Del Method 12/29/22 15:41 O2 Flow Rate 0.5 12/29/22 13:34 FiO2 32 12/28/22 12:09 12/29/22 12/29/22 12/29/22 06:59 14:59 22:59 Intake Total 154.5 / 985.333 240 / 240 120 / 360 Output Total 200 / 950 Balance -45.5 / 35.333 240 / 240 120 / 360 Weight last 48 hrs Weight 73.142 kg Weight 74.162 kg Physical Exam Const: GENERAL APPEARANCE: cooperative ORIENTATION/CONSCIOUSNESS: Yes awake HENMT: COMMON NORMALS: oropharynx normal Neck/C-Spine: COMMON NORMALS: no JVD OTHER: No nuchal rigidity Resp: COMMON NORMALS: clear to auscultation bilaterally AUSCULTATION: clear to auscultation bilaterally OTHER: NC Cardio: COMMON NORMALS: no JVD, regular rhythm, S1 normal heart sound present, S2 normal heart sound present and No murmurs present (Cardio) RHYTHM: regular rhythm HEART SOUNDS: S1 normal heart sound present and S2 normal heart sound present GI: COMMON NORMALS: Normal to inspection, nondistended, normoactive bowel sounds present, Soft to palpation and non-tender PALPATION: Yes Soft to palpation Extremity: COMMON NORMALS: no joint enlargement and no pedal edema OTHER: Stasis dermatitis chronic changes noted on lower extremities bilaterally. Bruising on the left knee. Neuro: COMMON NORMALS: moves all extremities Skin: COMMON NORMALS: no rashes or lesions noted GENERAL SKIN EXAM: no rashes or lesions noted Urinary Catheter Management: Lam: Cath Placed During This Visit: yes Reason for Continuing Indwelling Catheter: Other Urinary Catheter Date of Insertion: 12/22/22 Urinary Catheter Time of Insertion: 11:15 Data 12/29/22 03:01 12/29/22 03:01 A&P Assessment and plan (1) Chronic anticoagulation: INR coming closer to therapeutic. 2.1 this morning. Recheck 2.15. Continue heparin drip. Continue warfarin. Would not switch to Lovenox given recent anemia and need for transfusion. At risk of further clinically significant bleeding. We will get up to therapeutic INR here and discharged with warfarin alone. Follow-up INR in the morning. Follow-up PTTs. INR getting closer to therapeutic on review as above. Continue heparin drip. Discussed with pharmacy. We are cutting down warfarin dose slightly to 4.5 today. Repeat INR. Follow-up PTTs. - Has a mechanical mitral valve in place -If her hemoglobin can tolerate, and her hematoma does not enlarge then we can continue Coumadin with Lovenox bridge at custodial -However if her hemoglobin drops or hematoma large we might have to discontinue anticoagulation for some period of time until her hemoglobin and her hematoma can tolerate it (2) H/O mitral valve replacement with mechanical valve: Target INR 2.5-3.5. (3) Acute on chronic anemia: Hemoglobin reviewed noted 8.9. Follow-up CBC. Needs close monitoring of blood counts due to risk of bleeding with anticoagulation, bridging for therapeutic continuation for mechanical valve. Requested follow-up blood count. Has received IV IV iron supplementation. At risk of severe life-threatening bleeding and/or clotting of mechanical valve. (4) Acute encephalopathy: Encephalopathy has improved. Weaning off oxygen entirely. Came off to nasal cannula. Discussed with nursing staff to continue to decrease oxygen support, possibly come off oxygen if tolerating so as to decrease propensity for CO2 reaccumulation. Mobilize, is supposed to work with physical therapy as well. Continue to reorient. Chemistry appreciated, sodium remains WNL. Follow-up requested. After she recovers from acute illness discussed with her family would benefit from further assessment by neurology for consideration of dementia. Family reports no history of hallucination as well, that could be related to carbidopa levodopa. This was sometime before developing acute illnesses, could have been delirium secondary to pneumonia, UTI. This history obtained from family. She is unable to provide history currently. Reviewed BMP, sodium, as she has been made n.p.o. today due to risk of aspiration, will recheck BMP again in the morning due to risk of electrolyte disturbance, requested. Appreciate CT head results, without acute abnormality. Appreciate chest x-ray results, suggestive appearance of mild CHF. Most likely multifactorial etiology. Most likely in setting of infection. Pneumonia, and UTI ABG appreciated with respiratory acidosis and hypercapnia. (5) Acute and chronic respiratory failure with hypercapnia: Respiratory failure with hypercapnia with acute metabolic encephalopathy with hypercapnia. De-escalate oxygen support to help reduce hypercapnic encephalopathy episodes. Continuous pulse oximetry while de-escalating oxygen due to risk of respiratory failure. Trial of oral diet. Ipratropium and Xopenex every 6 hour, budesonide twice daily. Inhaled steroids for now, consideration of systemic steroids, although concerned that may further worsen her mental status. (6) Community acquired pneumonia: Continue ceftriaxone, azithromycin. Check procalcitonin. CT chest shows patchy infiltrate right upper lobe, right hilum Possible aspiration, aspiration precautions, speech therapy reeval once she is more awake (7) CHF (congestive heart failure): Chest x-ray appreciated, appears to have findings of CHF again. Have not yet restarted diuretics so far, although considered, but has had very limited oral intake. Increase oral intake improves, restart diuretic. Follow-up chemistry for electrolytes and renal function in the morning requested . Underwent diuresis. Strict [place] charting, daily weights. Lam catheterization. Fluid restriction up to 1500 cc. Qualifiers: Heart failure type: diastolic Heart failure chronicity: acute on chronic Qualified Code(s): I50.33 - Acute on chronic diastolic (congestive) heart failure (8) Elevated INR: On chronic Coumadin for mechanical mitral valve and atrial fibrillation. Target INR 2.5-3. Currently more than 8 with signs of possible new left hematoma and anemia. Received 2 doses of vitamin K, 1 dose FFP INR 9.8, now 1.2 to Monitor INR INR reversed due to acute anemia, left hip hematoma, now resolved (9) Hip hematoma, left: As above. - bruising of the left hip, but denies any pain -CT: Large intramuscular hematoma involving the LEFT gluteus medius with mixed attenuation blood products. Hematoma measures 9.5 x 5.4 x 12.9 CM. Associated subcutaneous soft tissue edema. Visualized LEFT femoral neck appears -Monitor (10) COPD (chronic obstructive pulmonary disease): Qualifiers: COPD type: chronic bronchitis Chronic bronchitis type: unspecified Ciro lified Code(s): J42 - Unspecified chronic bronchitis (11) Afib: As above Plan Analgesia: Tylenol as needed. Will avoid narcotics. Glycemic control: Not needed. A1c within normal limits Nutrition: Clear liquid diet as able. Patient is at a risk of aspiration given her mentation CODE STATUS: DNR/DNI. PUD prophylaxis: Protonix IV twice daily. DVT prophylaxis: SCDs for DVT, no medical prophylaxis given supratherapeutic INR , left hip hematoma and anemia Discharge planning: Back to custodial once medically stable. Ad[facility] with tele[facility]. Attestations Medical Necessity Statement*: Continue admission for bridging with heparin drip with high risk of bleeding until warfarin becomes therapeutic, 2.5-3.5 due to mechanical mitral valve. Diagnoses Chronic anticoagulation Z79.01 H/O mitral valve replacement with mechanical valve Z95.2 Acute on chronic anemia D64.9 Acute encephalopathy G93.40 Acute and chronic respiratory failure with hypercapnia J96.22 Community acquired pneumonia J18.9 CHF (congestive heart failure) I50.33 Heart failure type: diastolic Heart failure chronicity: acute on chronic Elevated INR R79.1 Hip hematoma, left S70.02XA COPD (chronic obstructive pulmonary disease) J42 COPD type: chronic bronchitis Chronic bronchitis type: unspecified Afib I48.91
[2022-12-29] MEDS: heparin drip 25,000 UNIT/500 ML PREMIX 14 UNIT IV (21:00)
[2022-12-29] MEDS: atorvastatin 40 mg Tablet PO (21:12)
[2022-12-29] MEDS: acetaminophen 325 mg Tablet 650 MG PO (23:44)
[2022-12-30] VITALS (12 sets, daily range): BP systolic 133–156; BP diastolic 61–74; PULSE 57–83; RESP 16–31; TEMP 36.6–36.9; O2SAT 96–99; BMI 29.2
[2022-12-30] MEDS: ipratropium 0.5 mg/2.5 mL Neb INHALATION ×3 (02:23→13:52)
[2022-12-30] MEDS: levalbuterol 0.63 mg/3 mL Neb INHALATION ×3 (02:23→13:52)
[2022-12-30] MEDS: cefTRIAXone 1,000 MG in sodium chloride 0.9% (plus) 50 ML 100 MG IV (02:29)
[2022-12-30 05:39] LABS: Basophils % 0.4 %; Eosinophils # 0.1 10^3/uL (0.0-0.8); Eosinophils % 2.8 %; Hematocrit 28.5 % (37.0-47.0); Hemoglobin 8.6 g/dL (11.5-15.3); Lymphocytes # 0.7 10^3/uL (0.8-4.8); Lymphocytes % 13.7 %; Mean Corpuscular HGB Conc 30.2 g/dL (30.0-36.0); Mean Corpuscular Hemoglobin 29.1 pg (28.0-34.0); Mean Corpuscular Volume 96.3 fl (81-99); Mean Platelet Volume 9.5 fL (7.4-10.4); Monocytes # 0.5 10^3/uL (0.2-0.9); Monocytes % 9.5 %; Neutrophils # 3.61 10^3/uL (1.8-7.7); Nucleated Red Blood Cells % 0 %; Platelet Count 169 10^3/cmm (130-400); Red Blood Count 2.96 10^6/uL (4.1-5.3); Red Cell Distribution Width 15.9 % (12.1-15.1)
[2022-12-30] MEDS: levothyroxine 50 mcg Tablet PO (05:43)
[2022-12-30 05:56] LABS: INR 2.66 (0.8-1.2)
[2022-12-30 06:04] LABS: Partial Thromboplastin Time 78.3 SECONDS (23.9-36.7)
[2022-12-30 06:06] LABS: Anion Gap 7.8 (5-19); Blood Urea Nitrogen 7 mg/dL (8-23); Calcium 8.6 mg/dL (8.5-10.5); Carbon Dioxide 34 mmol/L (22-29); Chloride 108 mmol/L (98-107); Glucose 102 mg/dL (65-115); Osmolality Calculated 300 mOsm/kg (285-295); Potassium 3.8 mmol/L (3.5-5.1); Sodium 146 mmol/L (136-145)
[2022-12-30] MEDS: budesonide 0.5 mg/2 mL Neb INHALATION (07:40)
[2022-12-30] MEDS: pantoprazole 40 mg SDV IVP (08:54)
[2022-12-30] MEDS: isosorbide mononitrate ER 30 mg Tablet PO (09:43)
[2022-12-30] MEDS: citalopram 20 mg Tablet 10 MG PO (09:43)
[2022-12-30] MEDS: azithromycin 250 mg Tablet 500 MG PO (09:44)
[2022-12-30] MEDS: docusate sodium 100 mg Capsule PO (09:44)
[2022-12-30] MEDS: potassium chloride ER 20 mEq Tablet PO (09:44)
[2022-12-30] MEDS: sucralfate 1 gm Tablet PO (11:55)
[2022-12-30 11:58] LABS: SARS Covid-2 Antigen negative (Negative)
--- NOTE | 2022-12-30 12:09 | PM.DCS ---
Discharge Providers Date of Admission: 12/22/22 03:57 Date of Discharge: December 30, 2022 Attending Provider at Admission: Francisco Marino MD Attending Provider at Discharge: Silas Fox Diagnoses at Discharge Discharge Diagnosis (1) Chronic anticoagulation: Status: Acute Permanent problem details: Due to mechanical mitral valve; coumadin (2) H/O mitral valve replacement with mechanical valve: Status: Acute (3) Acute on chronic anemia: Status: Acute (4) Acute encephalopathy: Status: Acute (5) Acute and chronic respiratory failure with hypercapnia: Status: Acute (6) Community acquired pneumonia: Status: Acute (7) CHF (congestive heart failure): Status: Acute Qualifiers: Heart failure type: diastolic Heart failure chronicity: acute on chronic Qualified Code(s): I50.33 - Acute on chronic diastolic (congestive) heart failure (8) Elevated INR: Status: Acute (9) Hip hematoma, left: Status: Acute (10) COPD (chronic obstructive pulmonary disease): Status: Acute Qualifiers: COPD type: chronic bronchitis Chronic bronchitis type: unspecified Qualified Code(s): J42 - Unspecified chronic bronchitis (11) Afib: Status: Acute Reason for Visit Reason for Visit: Resp. Distress Hospital Course Hospital Course Pleasant 82-year-old lady was treated in the hospital after presenting with respiratory distress, mental status change, somnolence, expectoration, subjective fevers on presentation with finding of acute encephalopathy multifactorial etiology secondary to pneumonia, UTI. Has history of COPD. Was started on ceftriaxone, azithromycin. Additionally continued on Lasix for CHF possibly with mild diastolic CHF exacerbation on presentation, received IV Lasix. On presentation additionally with supratherapeutic INR over 8, with also finding of left hip hematoma. Received vitamin K with reversal of INR. CT abdomen pelvis did not reveal retroperitoneal bleed. Received 2 units RBC transfusion. With mechanical valve after initial assessment was started on heparin drip and restarted on Coumadin which was brought back to therapeutic range in hospital with heparin due to elevated risk of bleeding. Last hemoglobin is 8.6. Please reassess blood counts for anemia, reassess left hip hematoma. Elevate left lower extremity. Consider compression stocking. While in hospital also transiently in hypercapnic respiratory failure with hypercapnic encephalopathy. Improved with BiPAP and weaning down on oxygen support. Breathing otherwise has been doing better she remains afebrile, without leukocytosis. Completed course of antibiotics while here. Procalcitonin is 0.1. She is much more alert, responsive. Continue BiPAP anytime she is asleep. Wean down and discontinue oxygen as tolerating, target saturation around 90%. Avoid hyperoxia to avoid help prevent hypercapnia. Mobilize with therapy 3 times weekly or more as possible. Maintain fall precautions. Encourage oral intake, add protein shakes. Physical Exam Narrative: family Const: GENERAL APPEARANCE: cooperative and lethargic ORIENTATION/CONSCIOUSNESS: Yes awake and Yes lethargic OTHER: Awake, states that she overall feels weak. HENMT: COMMON NORMALS: oropharynx normal Neck/C-Spine: COMMON NORMALS: no JVD OTHER: No nuchal rigidity Resp: COMMON NORMALS: clear to auscultation bilaterally AUSCULTATION: clear to auscultation bilaterally OTHER: NC Cardio: COMMON NORMALS: no JVD, regular rhythm, S1 normal heart sound present, S2 normal heart sound present and No murmurs present (Cardio) RHYTHM: regular rhythm HEART SOUNDS: S1 normal heart sound present and S2 normal heart sound present GI: COMMON NORMALS: Normal to inspection, nondistended, normoactive bowel sounds present, Soft to palpation and non-tender PALPATION: Yes Soft to palpation Extremity: COMMON NORMALS: no joint enlargement and no pedal edema OTHER: Stasis dermatitis chronic changes noted on lower extremities bilaterally. Bruising on the left knee. Neuro: COMMON NORMALS: moves all extremities SENSORIUM/ORIENTATION: Yes lethargic Skin: COMMON NORMALS: no rashes or lesions noted GENERAL SKIN EXAM: no rashes or lesions noted Urinary Catheter Management: Lam: Cath Placed During This Visit: yes Reason for Continuing Indwelling Catheter: Other Urinary Catheter Date of Insertion: 12/22/22 Urinary Catheter Time of Insertion: 11:15 Discharge Data Studies Completed and Pending Completed Studies During Hospitalization Category Date Time Status CT chest abdomen pelvis [[place] [id number] Cat Scan 12/22/22 06:40 Completed ] Urgent CT head wo con* [id number] Routine Cat Scan 12/22/22 06:[address] head wo con* [id number] Routine Cat Scan 12/26/22 16:36 Completed CXRP [XR chest 1V portable [id number]] Routine Exams 12/26/22 16:20 Completed XR chest 1V portable [id number] Stat Exams 12/22/22 02:15 Completed XR femur LT min 2V* [id number] Routine Exams 12/22/22 11:44 Completed XR hip LT 2-3V wo/w pel* [id number] Routine Exams 12/22/22 11:44 Completed Pending at discharge Category Date Time Status Complete Blood Count w/Auto AM LABS Lab 12/31/22 04:00 Ordered Complete Blood Count w/Auto AM LABS Lab 01/01/23 04:00 Ordered Partial Thromboplastin Time Timed Lab 12/30/22 12:15 Ordered Prothrombin Time INR AM LABS Lab 12/31/22 04:00 Ordered Prothrombin Time INR AM LABS Lab 01/01/23 04:00 Ordered Prothrombin Time INR AM LABS Lab 01/02/23 04:00 Ordered Prothrombin Time INR Timed Lab 12/30/22 12:15 Ordered Radiology Impressions Chest/Abdomen/Pelvis CT 12/22/22 06:40 IMPRESSION: 1. Patchy infiltrates RIGHT upper lobe about the RIGHT hilum suspicious for developing pneumonitis. 2. Small LEFT and tiny RIGHT pleural effusions with compressive atelectasis and subsegmental atelectasis in the lung bases. 3. Cardiomegaly.Prominent enlargement of the LEFT atrium. 4. Large LEFT intramuscular gluteus medius mixed attenuation hematoma described above. No visualized LEFT hip fractures. LEFT femur not included on this study. 5. Prior cholecystectomy. 6. Sigmoid diverticulosis. No evidence of acute diverticulitis. 7. RIGHT inguinal hernia with herniated nonobstructed bowel. Femur X-Ray 12/22/22 11:44 IMPRESSION: No acute findings. Hip/Pelvis X-Ray 12/22/22 11:44 IMPRESSION: No acute findings. Chest X-Ray 12/26/22 16:20 IMPRESSION: Single-view chest with findings suggestive of mild CHF appearance, for follow-up. Head CT 12/26/22 16:36 IMPRESSION: No acute intracranial abnormality, without significant change from prior exam. Laboratory Results WBC 5.0 10^3/uL (4.0-10.0) 12/30/22 05:30 RBC 2.96 10^6/uL (4.1-5.3) L 12/30/22 05:30 Hgb 8.6 g/dL (11.5-15.3) L 12/30/22 05:30 Hct 28.5 % (37.0-47.0) L 12/30/22 05:30 MCV 96.3 fl (81-99) 12/30/22 05:30 MCH 29.1 pg (28.0-34.0) 12/30/22 05:30 MCHC 30.2 g/dL (30.0-36.0) 12/30/22 05:30 RDW 15.9 % (12.1-15.1) H 12/30/22 05:30 Plt Count 169 10^3/cmm (130-400) 12/30/22 05:30 MPV 9.5 fL (7.4-10.4) 12/30/22 05:30 Neut % (Auto) 73.0 % 12/30/22 05:30 Lymph % (Auto) 13.7 % 12/30/22 05:30 [place] % (Auto) 9.5 % 12/30/22 05:30 Eos % (Auto) 2.8 % 12/30/22 05:30 Baso % (Auto) 0.4 % 12/30/22 05:30 Neut # (Auto) 3.61 10^3/uL (1.8-7.7) 12/30/22 05:30 Lymph # (Auto) 0.7 10^3/uL (0.8-4.8) L 12/30/22 05:30 [place] # (Auto) 0.5 10^3/uL (0.2-0.9) 12/30/22 05:30 Eos # (Auto) 0.1 10^3/uL (0.0-0.8) 12/30/22 05:30 Baso # (Auto) 0.0 10^3/uL (0.0-0.1) 12/30/22 05:30 Nucleated RBC % (auto) 0 % 12/30/22 05:30 Nucleated RBCs # 0.0 /100WBC 12/30/22 05:30 PT 29.40 SECONDS (12.1-14.9) H 12/30/22 05:30 INR 2.66 (0.8-1.2) H 12/30/22 05:30 APTT 78.3 SECONDS (23.9-36.7) H 12/30/22 05:30 Specimen Type Arterial 12/26/22 16:43 Sample Site Radial, right 12/26/22 16:43 ABG pH 7.35 (7.35-7.45) 12/26/22 16:43 ABG pCO2 61.9 mmHg (35-45) H* 12/26/22 16:43 ABG pO2 73.4 mmHg (80.0-100.0) L 12/26/22 16:43 ABG HCO3 34.0 mmol/L (22-26) H 12/26/22 16:43 ABG Base Excess 7.2 mmol/L (-2.0-2.0) H 12/26/22 16:43 César Test Pos 12/26/22 16:43 Hematocrit 24.6 % (37-47) L 12/26/22 16:43 Hgb O2 Saturation 94.1 % (95-100) L 12/22/22 02:34 Carboxyhemoglobin 2.6 %THgb (0.4-20.1) 12/22/22 02:34 Methemoglobin 1.2 % (0.4-1.5) 12/22/22 02:34 Total Hemoglobin 7.5 g/dL (12-16) L 12/22/22 02:34 O2 Delivery Device Bipap 12/26/22 16:43 O2 Liters/Min 4.0 % 12/22/22 02:34 FiO2 32.0 % 12/26/22 16:43 Subgrade Tester ID glc 12/26/22 16:43 Sodium 146 mmol/L (136-145) H 12/30/22 05:30 Potassium 3.8 mmol/L (3.5-5.1) 12/30/22 05:30 Chloride 108 mmol/L (98-107) H 12/30/22 05:30 Carbon Dioxide 34 mmol/L (22-29) H 12/30/22 05:30 Anion Gap 7.8 (5-19) 12/30/22 05:30 BUN 7 mg/dL (8-23) L 12/30/22 05:30 Creatinine 0.5 mg/dL (0.5-0.9) 12/30/22 05:30 GFR Calculation Not Reportable 12/30/22 05:30 Glucose 102 mg/dL (65-115) 12/30/22 05:30 Estimat Average Glucose 97 12/23/22 04:26 Hemoglobin A1c 5.0 % (4.0-6.0) 12/23/22 04:26 Calculated Osmolality 300 mOsm/kg (285-295) H 12/30/22 05:30 Lactic Acid 1.1 mmol/L (0.5-2.2) 12/22/22 02:30 Calcium 8.6 mg/dL (8.5-10.5) 12/30/22 05:30 Phosphorus 2.4 mg/dL (2.5-4.5) L 12/24/22 04:27 Magnesium 2.3 mg/dL (1.7-2.3) 12/24/22 04:27 Iron 31 ug/dL (37-145) L 12/22/22 02:30 TIBC 160 mcg/dl 12/22/22 02:30 % Saturation 19.3 % (20-50) L 12/22/22 02:30 Unsat Iron Binding 129 ug/dL (112-347) 12/22/22 02:30 Total Bilirubin 1.5 mg/dL (0.15-1.2) H 12/24/22 04:27 AST 11 U/L (0-32) 12/24/22 04:27 ALT < 5 U/L (0-33) 12/24/22 04:27 Alkaline Phosphatase 91 U/L (35-105) 12/24/22 04:27 NT-Pro-B Natriuret Pep 1234 pg/mL (0-450) H 12/24/22 04:27 Total Protein 5.8 g/dL (6.6-8.7) L 12/24/22 04:27 Albumin 2.8 g/dL (3.5-5.2) L 12/24/22 04:27 Globulin 3.0 g/dL (1.3-4.6) 12/24/22 04:27 Vitamin B12 416 pg/mL (232-1245) 12/22/22 02:30 Folate 6.8 ng/mL (4.8-37.3) 12/22/22 02:30 Procalcitonin 0.10 ng/mL (0-0.5) 12/30/22 05:30 Urine Color Dark yellow (Yellow) 12/22/22 11:25 Urine Appearance Hazy (CLEAR) A 12/22/22 11:25 Urine pH 7 (5-7) 12/22/22 11:25 Ur Specific [place] 1.010 (1.005-1.030) 12/22/22 11:25 Urine Protein Neg (Negative) 12/22/22 11:25 Urine Glucose (UA) Norm (Normal) 12/22/22 11:25 Urine Ketones Negative (Negative) 12/22/22 11:25 Urine Blood 3+ (Negative) H 12/22/22 11:25 Urine Nitrate Negative (Negative) 12/22/22 11:25 Urine Bilirubin Neg (Negative) 12/22/22 11:25 Urine Urobilinogen 4 mg/dL (Negative) H 12/22/22 11:25 Ur Leukocyte Esterase Negative (Negative) 12/22/22 11:25 Urine RBC 5-10 /hpf (0-2) H 12/22/22 11:25 Urine WBC 0-4 /hpf (0-5) H 12/22/22 11:25 Ur Squamous Epith Cells None /hpf (0-5) 12/22/22 11:25 Amorphous Sediment Not Reportable 12/22/22 11:25 Urine Bacteria Trace /hpf (NONE) 12/22/22 11:25 Hyaline Casts 0-4 /lpf H 12/22/22 11:25 Influenza Type A Ag negative (Negative) 12/22/22 02:30 Influenza Type B Ag negative (Negative) 12/22/22 02:30 SARS-CoV-2 Ag (Rapid) negative (Negative) 12/30/22 11:24 Blood Type A Positive 12/28/22 04:50 Rho(D) Type Positive 12/28/22 04:50 Antibody Screen Negative 12/28/22 04:50 Crossmatch See Detail 12/28/22 04:50 Vitals Last Vital Signs Temp 97.8 F 12/30/22 11:20 Pulse 83 12/30/22 11:20 Resp 18 12/30/22 11:20 BP 146/74 12/30/22 11:20 Pulse Ox 97 12/30/22 11:20 O2 Del Method 12/30/22 11:20 O2 Flow Rate 1 12/30/22 07:43 FiO2 32 12/30/22 07:53 Discharge Plan Discharge Patient Disposition: Xfer SNF Condition: Stable Prescriptions: Continued bumetanide 1 mg tablet 1 mg PO DAILY@14 isosorbide mononitrate 30 mg tablet extended release 24 hr 30 mg PO QAM Rx Instructions: hold if heart rate is less than 60 nitroglycerin 0.4 mg Tablet, Sublingual 0.4 mg SUBLINGUAL Q5M PRN (Reason: Chest Pain) rosuvastatin 10 mg tablet 10 mg PO DAILY@2100 fluticasone propion-salmeterol [Advair Diskus] 250-50 mcg/dose blister with device 1 inh inhalation BID@0900,2100 polyethylene glycol 3350 [Miralax] 17 gram powder in packet 17 g PO DAILY albuterol sulfate 90 mcg/actuation Hfa Aerosol Inhaler 2 inh INHALATION Q6H PRN (Reason: Shortness Of Breath) acetaminophen [Tylenol] 325 mg Tablet 650 mg PO Q4H PRN (Reason: Pain) levothyroxine 50 mcg tablet 50 mcg PO DAILY@06 carbidopa-levodopa 10-100 mg tablet 1 tab PO TID@06,14, ferrous gluconate 324 mg (37.5 mg iron) tablet 324 mg PO BID@08,20 sennosides-docusate sodium 8.6-50 mg tablet 1 tab PO BID@08,20 warfarin 4 mg Tablet See Rx Instructions .ROUTE .COMPLEX Rx Instructions: 4mg po three times a week @18:00 on (mon,wed,fri) bisacodyl [Dulcolax (bisacodyl)] 10 mg Suppository 10 mg [place] DAILY PRN (Reason: Constipation) albuterol sulfate 2.5 mg /3 mL (0.083 %) Solution For Nebulization 2.5 mg INHALATION QID ondansetron HCl [Zofran] 4 mg Tablet 4 mg PO Q6H PRN (Reason: Nausea) warfarin 5 mg Tablet See Rx Instructions .ROUTE .COMPLEX Rx Instructions: 5mg po four times a week @18:00 (,,mon and sun) citalopram 10 mg Tablet 10 mg PO QAM magnesium hydroxide [Milk of Magnesia] 400 mg/5 mL Suspension 30 ml PO DAILY PRN (Reason: Constipation) Fleet Enema 19-7 gram/118 mL Enema 118 ml [place] DAILY PRN (Reason: Constipation) omeprazole 40 mg Capsule,Delayed Release(Dr/Ec) 40 mg PO QAM cholecalciferol (vitamin D3) [Vitamin D3] 50 mcg (2,000 unit) Capsule 125 mcg PO QAM Artificial Tears (cmc) 1 % Drops 1 drp OPHTHALMIC (EYE) Q6H PRN (Reason: Dry Eyes) bumetanide 2 mg tablet 2 mg PO QAM potassium chloride 20 mEq tablet,ER particles/crystals 40 meq PO QAM Robitussin Mucus-Chest Congest 100 mg/5 mL Liquid 200 mg PO Q4H PRN (Reason: Congestion) Mucinex 600 mg Tablet Extended Release 12hr 600 mg PO Q12H PRN (Reason: Congestion) Discharge Orders: Discharge Order (Routine); Ordered 12/30/22 Ordered By: Silas Fox Referrals: [facility] [Outside] Thu Quiñonez MD [Physician] - 2 weeks (poss dementia) Michael Hampton DO [Staff Physician] - 4-7 days Discharge Diet: Soft Mechanical Discharge Activity: As per PT/OT instructions, Oxygen as instructed and Cpap/Bipap as instructed Patient Instructions: Opioid Safety Activity Restrictions/Additional Instructions: Please continue therapy 3 times a week or more. Maintain fall precautions. Please recheck INR on Monday, then continue INR twice weekly. Follow-up with primary provider for further warfarin adjustment. Target INR 2.5-3.5 for mechanical mitral valve. Reassess blood counts on Monday. Continue follow-up with PCP with regards to anemia. Follow-up left hip hematoma. Follow-up for resolution of pneumonia. Wean down oxygen and wean off as tolerating. Target saturation 90-92%. Avoid saturation that is too high as she is at risk of CO2 retention that may lead to further retention of carbon dioxide. Wear BiPAP anytime asleep. Follow-up regarding A-fib and other chronic conditions. Encourage oral intake, add protein shakes to meals. Discharge Attestations Time Spent in Discharge Care*: greater than 30 min Status at Discharge: Cognitive status at discharge: cognitively intact, Behavioral status at discharge: cooperative, Quality Metrics Clinical Quality Measures [ No reported AMI, CVA or VTE this stay] Coding Level of Care Code Acute Code for Chg Fwd Diagnoses Chronic anticoagulation Z79.01 H/O mitral valve replacement with mechanical valve Z95.2 Acute on chronic anemia D64.9 Acute encephalopathy G93.40 Acute and chronic respiratory failure with hypercapnia J96.22 Community acquired pneumonia J18.9 CHF (congestive heart failure) I50.33 Heart failure type: diastolic Heart failure chronicity: acute on chronic Elevated INR R79.1 Hip hematoma, left S70.02XA COPD (chronic obstructive pulmonary disease) J42 COPD type: chronic bronchitis Chronic bronchitis type: unspecified Afib I48.91
[2022-12-30 13:24] LABS: INR 2.75 (0.8-1.2)
[2022-12-30 13:25] LABS: Partial Thromboplastin Time 56.1 SECONDS (23.9-36.7)
[2022-12-30] MEDS: warfarin 2 mg Tablet 4 MG PO (15:05)
== END 2022-12-30 15:55 | disposition skilled nursing facility (03) | DRG 193 ==
LOC: ER 03:55 → MEDSURG 04:20
PROVIDERS: Family Medicine; Internal Medicine; Admitting Provider Student in an Organized Health Care Education/Training Program; Emergency Provider Emergency Medicine; Visit Provider Internal Medicine
DX: J18.9 Pneumonia, unspecified organism (principal); I50.33 Acute on chronic diastolic (congestive) heart failure; J96.22 Acute and chronic respiratory failure with hypercapnia; G93.49 Other encephalopathy; N39.0 Urinary tract infection, site not specified; F05 Delirium due to known physiological condition; J42 Unspecified chronic bronchitis; I11.0 Hypertensive heart disease with heart failure; S70.02XA Contusion of left hip, initial encounter; X58.XXXA Exposure to other specified factors, initial encounter; Z95.2 Presence of prosthetic heart valve; Z79.51 Long term (current) use of inhaled steroids; Z79.01 Long term (current) use of anticoagulants; Z66 Do not resuscitate; Z96.652 Presence of left artificial knee joint; K22.2 Esophageal obstruction; I27.20 Pulmonary hypertension, unspecified; G20 Parkinson's disease; G47.33 Obstructive sleep apnea (adult) (pediatric); K21.9 Gastro-esophageal reflux disease without esophagitis; F32.A Depression, unspecified; I25.10 Atherosclerotic heart disease of native coronary artery without angina pectoris; E03.9 Hypothyroidism, unspecified; I48.91 Unspecified atrial fibrillation; R79.1 Abnormal coagulation profile; D50.9 Iron deficiency anemia, unspecified
CPT/HCPCS: 36415; 36430; 36600; 51702; 70450; 71045; 71250; 73502; 73552; 74176; 80048; 80053; 81001; 82607; 82746; 82803; 82805; 83036; 83540; 83550; 83605; 83735; 83880; 84100; 84145; 85014; 85018; 85025; 85049; 85610; 85730; 86403; 86850; 86900; 86920; 86927; 87040; 87070; 87205; 87426; 87449; 87641; 87804; 92507; 92523; 92526; 92610; 93005; 94640; 94660; 94664; 94762; 96365; 96367; 96372; 97161; 97167; 97530; 99285; C9113; J0456; J0696; J1644; J1756; J1940; J3430; J7050; J7614; J7626; J7644; P9016; P9017; Q0144